=== PATIENT | female | born 1955 | race Caucasian/White ===

== ENCOUNTER 2023-03-17 12:05 | Outpatient (OUT) | payer SELFPAY ==
[2023-03-17 12:21] LABS: Estimated GFR (African America >60 (>=60); Estimated GFR (Non-African Ame >60 (>=60)
== END 2023-03-17 12:06 | disposition home or self-care (01) ==
LOC: LAB 04-08 14:58
PROVIDERS: PCP Family Medicine; Visit Provider Physician Assistant
DX: M54.50 Low back pain, unspecified (principal)
CPT/HCPCS: 36415; 82565

== ENCOUNTER 2023-03-18 15:54 | Emergency (ER) | payer OTHER, SELFPAY ==
[2023-03-18 16:08] VITALS: BP 149/89; PULSE 71; RESP 18; TEMP 36.9; O2SAT 97
--- NOTE | 2023-03-18 16:13 | CT_ITS ---
[address] [address] Patient Name: ZAYNAB LUTZ MRN: [id number] date: 1955 Sex: F Assigned Patient Location: ER Current Patient Location: Accession/Order Number: [id number] Exam Date: 03/18/2023 17:05 Report Date: 03/18/2023 18:03 At the request of: EFREN CRUZ Procedure: CT lumbar spine wo/w con CT LUMBAR SPINE WITHOUT CONTRAST, 03/18/2023 5:05 PM EDT INDICATION: pain with numbess and tingling COMPARISON: None. TECHNIQUE: Thin-section axial CT images of the entire lumbar spine were acquired withoutcontrast. Supplemental 2D reformatted images were generated and reviewed as needed. Dose reduction techniques were achieved by using automated exposure control and/or adjustment of mA and/or kV according to patient size and/or use of iterative reconstruction technique. FINDINGS: PARASPINAL: Normal with no visible mass. BONES: No fracture, pars defect, or osseous lesion. OTHER: None. DISC LEVELS: T12-L1: Early degenerative disc disease is present. The central canal and neural foramina are satisfactorily maintained. Early facet arthropathy bilaterally. L1-L2: Early degenerative disc disease is present. The central canal and neural foramina are satisfactorily maintained. Early facet arthropathy bilaterally. L2-L3: Early degenerative disc disease is present. The central canal and neural foramina are satisfactorily maintained. Facet arthropathy is noted bilaterally. L3-L4: Moderate degenerative disc disease is present. Circumferential bulging of the L3-L4 disc combines with facet arthropathy and ligamentum flavum thickening to result in moderate central canal stenosis. Associated bilateral foraminal stenosis. L4-L5: Moderate degenerative disc disease is present. Circumferential bulging of the L4-L5 disc combines with facet arthropathy to result in mild central canal stenosis. Associated bilateral foraminal stenosis. L5-S1: Moderate degenerative disc disease is present. The central canal is satisfactorily maintained. Mild foraminal stenosis bilaterally. Facet arthropathy is noted bilaterally. IMPRESSION: Moderate central canal stenosis at the L3-L4 level as detailed above. Mild central canal stenosis at the L4-L5 level as detailed above. Moderate L5-S1 degenerative disc disease. Early T12-L1, L1-L2, and L2-L3 degenerative disc disease.. Electronically authenticated by: Gerardo MURILLO Date: 03/18/2023 18:03
[2023-03-18 17:19] LABS: Basophils Absolute Auto 0.1 10^3/uL (0.0-0.1); Basophils Percent Auto 0.9 % (0.2-2.0); Eosinophils Absolute Auto 0.1 10^3/uL (0.0-0.7); Eosinophils Percent Auto 1.5 % (0.9-7.0); Hematocrit 43.6 % (36.0-48.0); Hemoglobin 14.4 g/dL (12.0-16.0); Immature Granulocytes Abs Auto 0.02 10^3/uL (0.00-0.03); Immature Granulocytes Pct Auto 0.4 % (0.0-0.5); Lymphocytes Percent Auto 18.1 % (20.5-60.0); Mean Corpuscular Hemoglobin 29.5 pg (26.7-34.0); Mean Corpuscular Volume 89.3 fL (81.0-99.0); Mean Platelet Volume 11.5 fL (9.5-13.5); Monocytes Absolute Auto 0.7 10^3/uL (0.3-0.8); Monocytes Percent Auto 12.4 % (1.7-12.0); Neutrophils Absolute Auto 3.6 10^3/uL (1.4-6.5); Neutrophils Percent Auto 66.7 % (43.0-75.0); Platelet Count 250 10^3/uL (150-450); Red Blood Count 4.88 10^6/uL (4.20-5.40); White Blood Count 5.4 10^3/uL (4.0-11.0)
[2023-03-18 17:29] LABS: Anion Gap 10.8; BUN Creatinine Ratio 19.8; Calcium 9.7 mg/dL (8.5-10.1); Carbon Dioxide 28.8 mmol/L (21.0-32.0); Chloride 103 mmol/L (98-107); Estimated GFR (African America >60 (>=60); Estimated GFR (Non-African Ame >60 (>=60); Glucose 97 mg/dL (74-106); Potassium 3.6 mmol/L (3.5-5.1); Sodium 139 mmol/L (136-145)
[2023-03-18] MEDS: HYDROCODONE/ACETAMINOPHEN 5-325 MG TABLET 1 TAB PO (17:37)
[2023-03-18] MEDS: KETOROLAC TROMETHAMINE 30 MG/ML VIAL IVP (17:37)
--- NOTE | 2023-03-18 18:32 | ED_ITS ---
HPI - General Adult General Chief complaint: Abdominal Pain Stated complaint: ADBOMINAL PAIN Time Seen by Provider: 03/18/23 16:12 Source: patient and family Source information: Back pain Mode of arrival: walk-in Limitations: no limitations History of Present Illness HPI narrative: 67-year-old female presents here with a chief complaint of a one-month history of back pain. Denies any known injury or trauma. States it been weeding in her yard the day prior to the pain starting. She had been seen here and diagnosed with back pain in the emergency room and had a CT scan to rule out stone. She was then referred to her tail ripper. Patient was being seen by her tail ripper today and continued to have increased pain and states had increased numbness and tingling of her back and came to the emergency room for further evaluation. Patient is very tearful. She states she cannot take the pain any longer. She denies any incontinence of urine or bowel or bladder dysfunctioning Related Data Previous Rx's Medication Instructions Recorded prednisone 20 mg tablet 20 mg PO BID 5 days #10 tabs 03/18/23 Allergies Allergy/AdvReac Type Severity Reaction Status Date / Time clindamycin Allergy Intermediate Verified 03/18/23 16:12 doxycycline Allergy Intermediate Verified 03/18/23 16:12 Review of Systems ROS Narrative All Systems are negative except as noted/marked.All systems reviewed and otherwise negative Exam Narrative Exam Narrative: P Nurses note and vital signs reviewed and patient is not hypoxic. General: The patient appears well and in no apparent distress. Patient is resting comfortably on cart. Skin: Warm, dry, no pallor noted. There is no rash noted. Head: Normocephalic, atraumatic Eye: Normal conjunctiva, no drainage, EOMI. PERRL Ears, Nose, Mouth, and Throat: oral mucosa is moist. Nares patent. Mouth without vesicles. Ear canals patent. Tm's without Erythema Cardiovascular: Regular Rate and Rhythm Respiratory: Patient is in no distress, no accessory muscle use, lungs are clear to auscultation, no wheezing, rales or rhonchi Back: non-tender, no CVA tenderness bilaterally to percussion. GI: Normal bowel sounds, no tenderness to palpation, no masses appreciated. No rebound, guarding, or rigidity noted. Musculoskeletal: L-spine tenderness around L4-L5, no lower extremity weakness, normal rectal tone The patient has no evidence of calf tenderness, no pitting edema, symmetrical pulses noted bilaterally Neurological: A&O x4, normal speech Psychiatric: Cooperative Constitutional Vital Signs - 24 hr 03/18/23 16:08 Temperature 98.4 F Pulse Rate [Monitor] 71 Respiratory Rate 18 Blood Pressure [Left Arm] 149/89 H Pulse Oximetry 97 Oxygen Delivery Method Room Air Course Course Hospital Course: She has been seen here in the emergency room for back pain. She's also had groin pain seem evaluated today by her tail ripper. Patient's exam is tail ripper was benign. CT scan today of the lumbar spine shows narrowing of L34 and L4-L5. She'll be discharged home follow-up with Dr. Argueta. Be given a prescription here for steroids for back pain. Told continue with ice therapy. Vital Signs Vital signs: Vital Signs Temperature 98.4 F 03/18/23 16:08 Pulse Rate 71 03/18/23 16:08 Respiratory Rate 18 03/18/23 16:08 Blood Pressure 149/89 H 03/18/23 16:08 Pulse Oximetry 97 03/18/23 16:08 Oxygen Delivery Method Room Air 03/18/23 16:08 Temperature 98.4 F 03/18/23 16:08 Pulse Rate 71 03/18/23 16:08 Respiratory Rate 18 03/18/23 16:08 Blood Pressure 149/89 H 03/18/23 16:08 Pulse Oximetry 97 03/18/23 16:08 Oxygen Delivery Method Room Air 03/18/23 16:08 Medical Decision Making MDM Narrative Medical decision making narrative: She presented here to the emergency room after her gynecology appointment today for continued low back pain that she's had for a month. Continuing to complain of burning sensation down the right buttock into the posterior aspect of her thigh is also into her groin. exam is within normal limits. CT scan today shows moderate narrowing of her central canal at L3-L4 L4-L5. Degenerative disc disease L5-S1. I will refer her to Dr. Argueta. She will follow-up with him. She also be given a prescription for steroids and pain medicine. Differential Diagnosis Differential Diagnosis: Sciatica, back pain, radiculopathy Lab Data Labs: Lab Results 03/18/23 03/18/23 Range/Units 16:46 18:16 WBC 5.4 (4.0-11.0) 10^3/uL RBC 4.88 (4.20-5.40) 10^6/uL Hgb 14.4 (12.0-16.0) g/dL Hct 43.6 (36.0-48.0) % MCV 89.3 (81.0-99.0) fL MCH 29.5 (26.7-34.0) pg MCHC 33.0 (29.9-35.2) g/dL RDW 14.0 (11.0-15.0) % Plt Count 250 (150-450) 10^3/uL MPV 11.5 (9.5-13.5) fL Neut % (Auto) 66.7 (43.0-75.0) % Lymph % (Auto) 18.1 L (20.5-60.0) % [place] % (Auto) 12.4 H (1.7-12.0) % Eos % (Auto) 1.5 (0.9-7.0) % Baso % (Auto) 0.9 (0.2-2.0) % Neut # (Auto) 3.6 (1.4-6.5) 10^3/uL Lymph # (Auto) 1.0 L (1.2-3.8) 10^3/uL [place] # (Auto) 0.7 (0.3-0.8) 10^3/uL Eos # (Auto) 0.1 (0.0-0.7) 10^3/uL Baso # (Auto) 0.1 (0.0-0.1) 10^3/uL Abs Immat Gran (auto) 0.02 (0.00-0.03) 10^3/uL Imm/Tot Granulo (auto) 0.4 (0.0-0.5) % Sodium 139 (136-145) mmol/L Potassium 3.6 (3.5-5.1) mmol/L Chloride 103 (98-107) mmol/L Carbon Dioxide 28.8 (21.0-32.0) mmol/L Anion Gap 10.8 BUN 17.0 (7.0-18.0) mg/dL Creatinine 0.86 (0.55-1.02) mg/dL Est GFR ( Amer) >60 (>=60) Est GFR (Non-Af Amer) >60 (>=60) BUN/Creatinine Ratio 19.8 Glucose 97 (74-106) mg/dL Calcium 9.7 (8.5-10.1) mg/dL Urine Color Lt. yellow (YELLOW) Urine Clarity Clear (CLEAR) Urine pH 6.5 (5.0-9.0) Ur Specific [place] <=1.005 A (1.005-1.025) Urine Protein Negative (NEG/TRACE) mg/dL Urine Glucose (UA) Negative (NEGATIVE) mg/dL Urine Ketones Trace A (NEGATIVE) mg/dL Urine Occult Blood Trace-i (NEGATIVE) Urine Nitrite Negative (NEGATIVE) Urine Bilirubin Negative (NEGATIVE) Urine Urobilinogen 0.2 (0.2-1.0) EU/dL Ur Leukocyte Esterase Negative (NEGATIVE) Discharge Plan Discharge Chief Complaint: Abdominal Pain Clinical Impression: Acute low back pain with sciatica Patient Disposition: Home, Self-Care Time of Disposition Decision: 18:38 Condition: Good Prescriptions / Home Meds: New prednisone 20 mg tablet 20 mg PO BID 5 Days Qty: 10 0RF Instructions: Sciatica (ED), Acute Low Back Pain (ED), Lumbar Radiculopathy (ED) Stand Alone Forms: Portal Instructions Referrals: AMMON LUCAS [Primary Care Provider] - 1 week Follow Up Appointments: dr Argueta
[2023-03-18 18:36] LABS: Bilirubin Urine NEGATIVE (NEGATIVE); Blood Urine TRACE-I (NEGATIVE); Clarity Urine CLEAR (CLEAR); Color Urine LT. YELLOW (YELLOW); Glucose Urine UA NEGATIVE (NEGATIVE); Ketones Urine TRACE mg/dL (NEGATIVE); Leukocyte Esterase Urine NEGATIVE (NEGATIVE); Nitrite Urine NEGATIVE (NEGATIVE); Protein Urine NEGATIVE (NEG/TRACE); Specific Gravity Urine <=1.005 (1.005-1.025); Urobilinogen Urine 0.2 EU/dL (0.2-1.0); pH Urine 6.5 (5.0-9.0)
[2023-03-18 18:37] LABS: Urine Microscopic Indicated YES
[2023-03-18] MEDS: DEXAMETHASONE SODIUM PHOSPHATE 10 MG/ML VIAL IV (18:41)
[2023-03-18 18:47] LABS: WBC Urine NONE SEEN #/HPF (NONE SEEN)
[2023-03-18 18:48] LABS: Bacteria Urine TRACE #/HPF (NONE SEEN); Cast Seen? NONE SEEN #/LPF (NONE SEEN); Crystals Seen? None Seen #/HPF (None Seen); Mucus Urine NONE SEEN (NONE SEEN); RBC Urine 0-2 #/HPF (0-2); Squamous Epithelial Cell Urine RARE #/LPF (NONE/RARE); Urine Culture Indicated NO
== END 2023-03-18 18:50 | disposition home or self-care (01) ==
PROVIDERS: Physician Assistant; Emergency Provider Emergency Medicine Emergency Medical Services; PCP Family Medicine
DX: M54.40 Lumbago with sciatica, unspecified side (principal); M51.37 Other intervertebral disc degeneration, lumbosacral region; Z12.4 Encounter for screening for malignant neoplasm of cervix
CPT/HCPCS: 36415; 72133; 80048; 81003; 81015; 85025; 87624; 96374; 96375; 99284; G0145; J1100; Q9967

== ENCOUNTER 2023-03-18 19:40 | Outpatient (REF) | payer OTHER, SELFPAY ==
[2023-03-21 12:09] LABS: Age Gdln ACOG Testing Note (.); HPV Aptima Negative (Negative); IGP, Aptima HPV, rfx 16/18,45 Note (.)
== END 2023-03-18 19:41 ==
LOC: LAB 19:40
PROVIDERS: PCP Family Medicine; Visit Provider Physician Assistant
DX: Z12.4 Encounter for screening for malignant neoplasm of cervix (principal)
CPT/HCPCS: 87624; G0145

== ENCOUNTER 2023-09-29 07:52 | Outpatient (OUT) | payer MEDICARE, SELFPAY ==
--- NOTE | 2023-09-29 08:00 | MM_ITS ---
Patient Name: ZAYNAB LUTZ MR#: [id number] : 1955 Exam Date: 09/29/2023 Ordering Doctor: DELIA Topete . RADIOLOGY REPORT PROCEDURE: MM TOMOSYNTHESIS SCREENING BI COMPARISON: MG MAMM SCREEN CINTHYA W CAD, 08/10/2018. MG MAMM SCREEN 3D CINTHYA CAD, 08/13/2022. INDICATIONS: screening for malignant neoplasm of breast Calculator Name NCI Breast Cancer Risk Assessment Tool 5 Year Breast Cancer Risk 1.50% Lifetime Breast Cancer Risk 5.40% Personal Breast Cancer No Personal Ovarian Cancer No Treatments None Family Cancers None LOCATION: [facility] BREAST COMPOSITION: Scattered areas fibroglandular density. FINDINGS: DIAGNOSTIC CATEGORY 1--NEGATIVE. NO CHANGE FROM COMPARISON ASSESSMENT. RIGHT BREAST: No significant suspicious finding. [place] marker indicates a scab from the patient's recent mole removal. No mammographic abnormality LEFT BREAST: No significant suspicious finding. RECOMMENDATIONS: ROUTINE MAMMOGRAM AND CLINICAL EVALUATION IN 12 MONTHS. PLEASE NOTE: A NORMAL MAMMOGRAM DOES NOT EXCLUDE THE POSSIBILITY OF BREAST CANCER. A CLINICALLY SUSPICIOUS PALPABLE LUMP SHOULD BE BIOPSIED. Dictated by: Boogie Mina MD on 09/29/2023 at 14:35 Approved by: Boogie Mina MD on 09/29/2023 at 14:39
--- NOTE | 2023-09-29 08:02 | XR_ITS ---
[address] [address] Patient Name: ZAYNAB LUTZ MRN: [id number] date: 1955 Sex: F Assigned Patient Location: [facility] Current Patient Location: [facility] Accession/Order Number: [id number] Exam Date: 09/29/2023 08:16 Report Date: 09/29/2023 08:45 At the request of: EFREN CRUZ Procedure: XR DEXA axial skeleton EXAMINATION: XR DEXA axial skeleton, 09/29/2023 8:16 AM EST HISTORY: screening for osteoporosis COMPARISON: 2008 TECHNIQUE: Dual-energy X-ray absorptiometry (DEXA) bone density study performed for the axial skeleton. HISTORY: screening for osteoporosis FINDINGS: Bone mineral density AP spine L2-L4 measures 1.010 g/sq cm. T score -1.6. WHO classification: Osteopenia. Lowest bone mineral density is in the right femoral trochanter measuring 0.497 g/sq cm. T score -3.1. WHO classification: Osteoporosis XR/XR DEXA axial skeleton IMPRESSION: Osteoporosis. High fracture risk Electronically authenticated by: JAMISON LEBLANC Date: 09/29/2023 08:45
== END 2023-09-29 07:53 | disposition home or self-care (01) ==
LOC: MAMMO 07:52
PROVIDERS: PCP Family Medicine; Visit Provider Physician Assistant
DX: Z01.419 Encounter for gynecological examination (general) (routine) without abnormal findings (principal); Z12.31 Encounter for screening mammogram for malignant neoplasm of breast; M81.0 Age-related osteoporosis without current pathological fracture
CPT/HCPCS: 77063; 77067; 77080

== ENCOUNTER 2024-09-02 12:15 | Emergency (ER) | payer MEDICARE, SELFPAY ==
[2024-09-02 12:19] VITALS: BP 138/92; PULSE 89; TEMP 36.6; O2SAT 97; BMI 21.0
--- OUTSIDE RECORDS SUMMARY | 2024-09-02 12:28 | XMS_ITS | CCD ---
Author Organization [facility] Care Team Providers Care Jail Keeper Name Role Phone Joel Monroe Unavailable Unavailable Joel Monroe Unavailable Unavailable Joel Monroe PSigifredo Unavailable Unavailable AMMON LUCAS~[id number] UNKNOWN Unavailable Unavailable Joel Monroe PSigifredo Unavailable Unavailable Joel Monroe PSigifredo Unavailable Unavailable Joel Monroe PSigifredo Unavailable Unavailable AMMON LUCAS~[id number] UNKNOWN Unavailable Unavailable Manuela Aly Unavailable Ayaka Joyner Unavailable Ammon Lucas Unavailable NAVEEN KAHN Admitting Unavailable NAVEEN KAHN Attending Unavailable YRIS ., DELIA TOLENTINO Consulting Unavailmindy LUCAS, DR AMMON Peres Primary Care Unavailable HAY ., DR KEITA Admitting Unavailable HAY ., DR KEITA Attending Unavailable Derek Mccray Consulting Unavailable LUCAS, DR AMMON Peres Primary Care Unavailable HAY ., DR KEITA Consulting Unavailable EDINSON, ELIE Consulting Unavailable HAY ., DR KEITA Admitting Unavailable HAY ., DR KEITA Consulting Unavailable HAY ., DR KEITA Attending Unavailable LANCE, DR AMMON Peres Primary Care Unavailable REQUEST, DR GARNETT LISTED Admitting Unavaila ble REQUEST, DR GARNETT LISTED Consulting Unavaila ble REQUEST, DR GARNETT LISTED Attending Unavaila ble LANCE, DR AMMON ePres Primary Care Unavailable Boogie Mina Consulting Unavailable LANCE, DR AMMON Peres Primary Care Unavailable LANCE, DR AMMON Peres Attending Unavailable LANCE, DR AMMON Peres Admitting Unavailable LANCE, DR AMMON Peres Consulting Unavailable Unavailable Primary Care Provider UnavailAmmon Guzman MD Primary Care Provider Ammon Lucas MD Unavailable Ammon Lucas MD Primary Care Provider [phone] Ammon Lucas MD Primary Care Provider [phone] LUCAS, AMMON E Referring Unavailable LUCAS, AMMON E Primary Care Unavailable LUCAS, AMMON E Referring Unavailable LUCAS, AMMON E Primary Care Unavailable BRIANA, TESSA K Referring Unavailable LUCAS, AMMON E Primary Care Unavailable BRIANA, TESSA K Referring Unavailable LUCAS, AMMON E Primary Care Unavailable BRIANA, TESSA K Attending Unavailable LUCAS, AMMON Referring Unavailable RBIANA, TESSA K Attending Unavailable LUCAS, AMMON Referring Unavailable BRIANA, TESSA K Attending Unavailable SARAH GODWIN Attending Unavailable LUCAS, AMMON E Referring Unavailable LUCAS, AMMON E Primary Care Unavailable SARAH GODWIN Attending Unavailable LUCAS, AMMON E Referring Unavailable LUCAS, AMMON E Primary Care Unavailable SARAH GODWIN Referring Unavailable LUCAS, AMMON E Primary Care Unavailable SARAH GODWIN Admitting Unavailable SARAH GODWIN Attending Unavailable LUCAS, AMMON E Primary Care Unavailable YEN MEADE Attending Unavailable LUCAS, AMMON E Primary Care Unavailable SARAH GODWIN Attending Unavailable LUCAS, AMMON E Referring Unavailable LUCAS, AMMON E Primary Care Unavailable ALEX RAMIREZ Attending Unavailable LUCAS, AMMON E Referring Unavailable LUCAS, AMMON E Primary Care Unavailable Unavailable Primary Care Provider Unavailabl e STRASBURG, AUGUSTINA M Referring Unavailable STRASBURG, AUGUSTINA M Referring Unavailable STRASBURG, AUGUSTINA M Referring Unavailable STRASBURG, AUGUSTINA M Referring Unavailable STRASBURG, AUGUSTINA M Referring Unavailable STRASBURG, AUGUSTINA M Referring Unavailable STRASBURG, AUGUSTINA M Referring Unavailable STRASBURG, AUGUSTINA M Referring Unavailable STRASBURG, AUGUSTINA M Referring Unavailable ELTEMAMYCHIP Attending Unavailable LANCE, AMMON E Primary Care Unavailable ELTEMAMYCHIP Referring Unavailable LUCAS, AMMON E Primary Care Unavailable RINA FOX Attending Unavailable SELF Referring Unavailable LUCAS, AMMON E Primary Care Unavailable RADU DELEON Attending Unavailable RINA FOX Referring Unavailable LUCAS, AMMON E Primary Care Unavailable LUCAS, AMMON E Primary Care Unavailable LUCAS, AMMON E Primary Care Unavailable LUCAS, AMMON E Primary Care Unavailable ELTEMAMY, CHIP Attending Unavailable LUCAS, AMMON E Primary Care Unavailable LUCAS, AMMON E Primary Care Unavailable ELTEMAMY, CHIP Attending Unavailable ELTEMAMY MOHFAM Referring Unavailable LUCAS, AMMON E Primary Care Unavailable STRASBURG, AUGUSTINA Attending Unavailable LUCAS, AMMNO E Primary Care Unavailable PAGE BUCHANAN Attending Unavailable CHIP CARR Attending Unavailable AMMON LUCAS Primary Care Unavailable AUGUSTINA VARGAS Attending Unavailable AUGUSTINA VARGAS Referring Unavailable AMMON LUCAS Primary Care Unavailable CHIP CARR Admitting Unavailable CHIP CARR Attending Unavailable AMMON LUCAS Primary Care Unavailable Allergies Allergy Classification Reported Allergen(s) Allergy Type Date of Onset Reaction(s) Facility (9 sources) amoxicillin; Translations: [amoxicillin] Drug Allergy 02-13-20 17 Unknown [facility] Repository (20 sources) Bee/Wasp/Ant venom; Translations: [Bee Stings] Propensity to adverse reactions (disorder) Unknown [facility] Repository (20 sources) clindamycin; Translations: [clindamycin] Drug Allergy 09-24-20 15 Hives, Shortness Of Breath, Rash [facility] Repository (20 sources) doxycycline; Translations: [doxycycline] Drug Allergy 12-18-19 24 Rash [facility] Repository (8 sources) Penicillins; Translations: [penicillins] Propensity to adverse reactions (disorder) 02-13-20 17 Hives, Rash, Intolerance [facility] Repository (5 sources) Penicillin; Translations: [penicillin] Drug Allergy 06-18-20 18 Unknown [facility] Repository (11 sources) Bee pollen Drug Allergy 06-17-20 18 Comment:Bee Stings [facility] [employer] Other (11 sources) Codeine Drug Allergy 08-04-20 Comment:upset stomach [employer] Other (20 sources) Codeine; Translations: [CODEINE] Drug Allergy 06-17-20 18 GI Disturbance, GI Upset [email or web address] [facility] (11 sources) Pseudoephedrine Drug Allergy 08-04-20 18 Unknown [employer] Other (6 sources) patient allergy list reviewed by nurse or physicia Propensity to adverse reactions 08-10-20 Comment:Done [employer] Other (3 sources) Allergies Reconciled Propensity to adverse reactions Unknown [employer] Other (1 source) Substance with penicillin structure and antibacterial mechanism of action (substance) Drug allergy 08-04-20 Unknown [employer] Other (7 sources) Fluconazole Drug Allergy dizziness [employer] Other (6 sources) Doxycycline; Translations: [DOXYCYCLINE HYCLATE] Drug Allergy 03-03-20 Rash [employer] (20 sources) Bee Venom Protein (Honey Bee); Translations: [BEE VENOM PROTEIN (HONEY BEE)] Propensity to adverse reactions to drug 12-05-19 Rash [employer] (2 sources) VENOM-HONEY BEE; Translations: [VENOM-HONEY BEE] Propensity to adverse reactions to drug (disorder) 12-05-19 [facility] Other [place] Rep[facility] Medications Current Medications Medication Drug Class(es) Dates Sig (Normalized) Sig (Original) acetaminophen 325 mg / HYDROcodone bitartrate 5 mg oral tablet (19 sources) Opioid Agonist Start: 08-31-2020 take 1 tablet by mouth every six hours as needed HYDROcodone-acetam inophen (NORCO) 5-325 mg per tablet Take 1 tablet by mouth every 6 (six) hours as needed. 02/25/2023 Active Comment on above: Take 1 tablet by brad th every 6 hours as needed for pain. atorvastatin 20 mg oral tablet (20 sources) HMG-CoA Reductase Inhibitor Start: 06-12-2023 End: 06-06-2024 take 1 tablet by mouth once daily in the evening atorvastatin (LIPITOR) 20 mg tablet Take 20 mg by mouth every evening. 10/24/2023 Active Lipitor Active Comment on above: Take 20 mg by mouth every morning. Take 20 mg by mouth every evening. azithromycin 250 mg oral tablet (13 sources) Macrolide Antimicrobial Start : 11-22 Azithromycin 250 MG 2 tablet on the first day, then 1 tablet daily for 4 days Orally Once a day for 5 day(s) May, Active onabotulinumtoxina 100 unt injection (20 sources) Acetylcholine Release Inhibitor Start : 07-06 inject 100 [IU] by intramuscular injection every three months 100 Units, INTRAMUSCULAR, EVERY 3 MONTHS, First dose on Fri07/06/24 at 1130, Until Discontinued, This record documents the total dose provided to patient. See progress note for specific locations and amounts administered. REFRIGERATE - Pharmaceutical Waste: Lab Pack - Start: 05-28-2024 onabotulinum t oxin type A 100 Units injection (BOTOX) Calcium Carbonate / vitamin D3 (20 sources) take 600 mg by mouth twice daily calcium carbonate/vitamin D3 (CALTRATE 600 + D ORAL) Take 600 mg by mouth two times a day. Active take 600 mg by mouth twice daily calcium carbonate/vitamin D3 (CALTRATE 600 + D ORAL) Take 600 mg by mouth two times a day. 0 Active take 600 mg by mouth once daily calcium carbonate/vitamin D3 (CALTRATE 600 + D ORAL) Take 600 mg by mouth once daily. 0 Active Comment on above: Take 600 mg by mouth once daily. CALCIUM CARBONATE-VITAMIN D3 ORAL (3 sources) take 600 mg by mouth in the morning CALCIUM CARBONATE-VITAMIN D3 ORAL Take 600 mg by mouth in the morning. Active take 600 mg by mouth in the morn ing CALCIUM CARBONATE-VITAMIN D3 ORAL Take 600 mg by mouth in the morning. 0 Active cyclobenzaprine hydrochloride 5 mg oral tablet (12 sources) Muscle Relaxant Start: 05-27-2024 End: 08-17-2024 cyclobenzaprine (FLEXERIL) 5 mg tablet Indications: High-tone pelvic floor dysfunction 1 tablet at bedtime as needed. Use vaginally 90 tablet 4 08/17/2024 Active take 2 tablets by mo ut three times daily as needed for muscle spasms cyclobenzaprine (FLEXERIL) 5 mg tablet T hedy 2 tablets (10 mg total) by mouth 3 (three) times a day as needed for muscle spasms. Active estradiol 0.1 mg/ml vaginal cream (5 sources) Estrogen Start: 07-06-2024 estradiol (EST RACE) 0.01 % (0.1 mg/gram) vaginal cream Indications: Vaginal dryness Use 0.5 g vaginally daily at bedtime. Apply finger tipped size to vulva, urethra nightly 42.5 g 2 07/06/2024 Active fluticasone propionate 0.05 mg/actuat metered dose nasal spray (20 sources) Corticosteroid fluticasone (STEVAN NASE) 50 mcg/actuation nasal spray Use 1 Alsen in the nose as needed for cold/allergy symptoms. Take in allergy season Active fluticasone (STEVAN NASE) 50 mcg/actuation nasal spray Use 1 Alsen in the nose once daily. 0 Active FLONASE Active Flonase Active Flonase Not-Taki ng Comment on above: Use 1 Alsen in the n ose once daily. Use 1 Alsen in the n ose as needed for cold/allergy symptoms. Take in allergy season gabapentin 300 mg oral capsule (20 sources) Anti-epileptic Agent Start: 0 gabapentin (NEURONTIN) 300 mg capsule Take 300 mg by mouth as needed for pain. 08/25/2020 Active Comment on above: Take 300 mg by mouth as needed for pain. ibuprofen 200 mg oral tablet (20 sources) Nonsteroidal Anti-inflammatory Drug take 3-4 tablets by mouth twice daily as needed ibuprofen (MOTRIN) 200 mg tablet Take 400 mg by mouth two times a day. 400-800 mg 3-4 PRN Active take 2 tablets by mo uth every six hours as needed for pain ibuprofen (ADVIL,MOTRIN) 200 mg tablet T hedy 2 tablets (400 mg total) by mouth every 6 (six) hours as needed for pain. Active take 2 tablets by mouth twice da aby ibuprofen (MOTRIN) 200 mg tablet Take 400 mg by mouth two times a day. 0 Active Comment on above: Take 400 mg by mouth every 6 hours as needed for pain. Take 400 mg by mouth two times a day. 12 hr loratadine 5 mg / pseudoephedrine sulfate 120 mg extended release oral tablet (3 sources) alpha-Adrenergic Agonist loratadine-pseudoep hedrine (LORATADINE-D) 5-120 mg tablet extended release 12 hr Take 1 tablet by mouth every 12 (twelve) hours. 1/2 tablet- keeps right ear open Active montelukast 10 mg oral tablet (20 sources) Leukotriene Receptor Antagonist Start: 06-18-20 18 take 1 tablet by mouth once daily montelukast (SINGULAIR) 10 mg tablet Take 10 mg by mouth once daily. 06/18/2018 Active Singulair Active Singulair NotKaren carroll Comment on above: Take 10 mg by mouth once daily. nystatin 281131 unt/ml oral suspension (11 sources) Polyene Antifungal Start: 06-05-2023 take 4 mL by mouth four times daily Nystatin 181092 UNIT/ML 4 mL Mouth/Throat Four times a day for 14 day(s) May, Active Nystatin [id number] UNIT/ML swish and swallow 5 milliliters four times a day for 10 days Mouth/Throat for 10 Days Not-Taking predniSONE 20 mg oral tablet (3 sources) Start: 05-29-2023 take 1 tablet by mouth every twelve hours prednisone 20 MG 1 tablet Orally BID for 5 May, Active valACYclovir 1000 mg oral tablet (2 sources) Herpesvirus Nucleoside Analog DNA Polymerase Inhibitor, Herpes Simplex Virus Nucleoside Analog DNA Polymerase Inhibitor, Herpes Zoster Virus Nucleoside Analog DNA Polymerase Inhibitor Start: 09-14-2021 take 1 tablet by mouth every eight hours valACYclovir HCl 1 GM 1 tablet Orally tid for 7 days Sep, Active Start: 07-29-2021 take 1 tablet by brad th every eight hours Valtrex 1 GM 1 tablet Orally tid for 7 days Jul, Active Completed/Discontinued Medications Medication Drug Class(es) Dates Sig (Normalized) Sig (Original) Bupivacaine (2 sources) Amide Local Anesthetic Start: 07-06-2024 End: 07-06-2024 BUPivacaine HCl 25 mg injection (SENSORCAINE) Start: 07-06-2024 End: 07-06-2024 inject 1 dose by intramuscular injection once 25 mg, INTRAMUSCULAR, ONCE, 1 dose, On Fri07/06/24 at 1130 doxycycline monohydrate 100 mg oral capsule (11 sources) Tetracycline-class Drug Start: 07-28-2022 take 1 capsule by mouth every twelve hours Doxycycline Monohydrate 100 MG 1 capsule Orally every 12 hrs for 10 days Jul, Not-Taking fluocinonide 0.5 mg/ml topical cream (7 sources) Corticosteroid Fluocinonide 0.0 5 % External for 14 Days Not-Taking lidocaine hydrochloride 0.02 mg/mg topical gel (3 sources) Antiarrhythmic, Amide Local Anesthetic Start: 04-07-2024 End: 04-07-2024 lidocaine urojet 2 % 11 mL topical gel (GLYDO) Start: 09-14-2021 Lidocaine Visc ous HCl 2 % 1 application topically every 2 hours prn Apply a small amount to the painful rash on the face every 2 hours as needed Sep, Active Loratadine (10 sources) Claritin Not-Holger ing Claritin Active tamsulosin hydrochloride 0.4 mg oral capsule (14 sources) alpha-Adrenergic Amber Start: 03-05-2024 End: 06-06-2024 take 1 capsule by mouth once daily at bedtime tamsulosin (FLOMAX) 0.4 mg Take 1 capsule by mouth daily at bedtime. 42 capsule 03/05/2024 06/06/2024 Discontinued take 1 capsule by mo ut every twenty-four hours Flomax 0.4 MG 1 capsule Orally Once a day for 15 days Active Problems Active Problems Problem Classification Problem Date Documented Da te Episodic/Chronic Abdominal pain (10 sources) Pelvic and perineal pain; Translations: [Pain in pelvis] Onset: 02-22-2023 Episodic Aortic; peripheral; and visceral artery aneurysms (20 sources) Aneurysm of infrarenal abdominal aorta ; Translations: [Infrarenal abdominal 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] Onset: 08-20-2023 08-20-2023 Chronic Calculus of urinary tract (15 sources) Kidney stone; Translations: [Calculus of kidney] Episodic Chronic kidney disease (1 source) Kidney transplant status; Translations: [Kidney transplant status] Onset: 04-26-2024 Chronic Diseases of mouth; excluding dental (7 sources) Dry mouth, unspecified; Translations: [Chronic sialadenitis] Onset: 10-07-2023 Episodic Disorders of lipid metabolism (20 sources) Hyperlipidemia; Translations: [Other hyperlipidemia] Onset: 02-19-2024 02-19-2024 Chronic Genitourinary symptoms and ill-defined conditions (1 source) Dysuria Episodic Headache; including migraine (3 sources) Tension-type headache; Translations: [Tension-type headache, unspecified, not intractable] Onset: 03-17-2023 07-25-2023 Chronic Headache; including migraine (3 sources) Headache; Translations: [Headache, unspecified] Episodic Lymphadenitis (3 sources) Localized enlarged lymph nodes; Translations: [Localized enlarged lymph nodes] Episodic Menopausal disorders (1 source) Atrophic vaginitis; Translations: [Postmenopausal atrophic vaginitis] 07-06-2024 Chronic Mycoses (5 sources) Candidiasis, unspecified; Translations: [Candidal stomatitis] Onset: 11-25-2022 Episodic Nutritional deficiencies (17 sources) Malnutrition (calorie); Translations: [Moderate protein-calorie malnutrition] Onset: 03-03-2024 04-10-2024 Chronic Osteoporosis (3 sources) Osteoporosis; Translations: [Age-related osteoporosis without current pathological fracture] Onset: 03-04-2023 07-25-2023 Chronic Other aftercare (1 source) Encounter for aftercare following kidney transplant; Translations: [Encounter for aftercare following kidney transplant] Onset: 04-07-2024 Chronic Other aftercare (1 source) Other manager intermediate (current) 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; Translations: [OTH SKILLED NURSING CURRENT DRUG THERAPY] Onset: 02-25-2023 Episodic Other circulatory disease (3 sources) Elevated blood-pressure reading without diagnosis of hypertension; Translations: [Elevated blood-pressure reading, without diagnosis of hypertension] Episodic Other connective tissue disease (3 sources) Neuralgia; Translations: [Neuralgia and neuritis, unspecified] Episodic Other connective tissue disease (3 sources) Laxity of ligament; Translations: [Disorder of ligament, unspecified site] Episodic Other connective tissue disease (2 sources) Neuralgia and neuritis, unspecified Episodic Other connective tissue disease (5 sources) Pelvic floor dysfunction; Translations: [Other specified disorders of muscle] 05-27-2024 Episodic Other connective tissue disease (1 source) Muscle pain; Translations: [Myalgia, unspecified site] 07-06-2024 Episodic Other diseases of bladder and urethra (1 source) Urethral caruncle; Translations: [Urethral caruncle] 07-06-2024 Episodic Other diseases of veins and lymphatics (1 source) Varicose veins of other specified sites; Translations: [VARICOSE VEINS OTHER SPEC SITES] Onset: 02-25-2023 Episodic Other ear and sense organ disorders (1 source) Unspecified sensorineural hearing loss; Translations: [Unspecified sensorineural hearing loss] Onset: 11-12-2023 Chronic Other female genital disorders (1 source) Other specified conditions associated with female genital organs and menstrual cycle Episodic Other female genital disorders (1 source) Vaginal dryness; Translations: [Other specified noninflammatory disorders of vagina] 07-06-2024 Episodic Other gastrointestinal disorders (1 source) Other disorders of retroperitoneum; Translations: [Other disorders of retroperitoneum] Onset: 04-26-2024 Episodic Other gastrointestinal disorders (1 source) Acute constipation; Translations: [Constipation, unspecified] 07-06-2024 Episodic Other injuries and conditions due to external causes (1 source) Allergy, unspecified, subsequent encounter Episodic Other screening for suspected conditions (not mental disorders or infectious disease) (2 sources) CT of chest abnormal; Translations: [Abnormal findings on diagnostic imaging of other specified body structures] Chronic Other skin disorders (3 sources) Localized swelling, mass and lump, neck; Translations: [Localized swelling, mass and lump, neck] Episodic Other upper respiratory disease (3 sources) Allergic rhinitis due to pollen; Translations: [Allergic rhinitis due to pollen] Onset: 06-17-2018 Chronic Other upper respiratory disease (3 sources) Chronic rhinitis; Translations: [Chronic rhinitis] Onset: 03-17-2023 07-25-2023 Chronic Other upper respiratory infections (20 sources) Sinusitis; Translations: [Chronic sinusitis, unspecified] Chronic Other upper respiratory infections (3 sources) Acute maxillary sinusitis, unspecified; Translations: [Acute recurrent maxillary sinusitis] Episodic Peripheral and visceral atherosclerosis (3 sources) Peripheral vascular disease; Translations: [Peripheral vascular disease, unspecified] Onset: 03-17-2023 07-25-2023 Chronic Phlebitis; thrombophlebitis and thromboembolism (1 source) 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; unclassified (1 source) Acquired absence of other specified parts of digestive tract; Translations: [ACQ ABSENCE OTH PART DIGESTV TRACT] Onset: 02-25-2023 Episodic Residual codes; unclassified (3 sources) Normal body mass index; Translations: [Body mass index (BMI) 22.0-22.9, adult] Episodic Residual codes; unclassified (1 source) Family history of aneurysm of artery; Translations: [Family history of ischemic heart disease and other diseases of the circulatory system] 12-18-2023 Episodic Residual codes; unclassified (1 source) Pain, unspecified; Translations: [Pain, unspecified] Onset: 02-17-2024 Episodic Screening and history of mental health and substance abuse codes (1 source) Personal history of nicotine dependence; Translations: [PERSONAL HISTORY OF NICOTINE DEPEND] Onset: 02-25-2023 Episodic Skin and subcutaneous tissue infections (3 sources) Cellulitis of neck; Translations: [Cellulitis of neck] Episodic Spondylosis; intervertebral disc disorders; other back problems (3 sources) Degeneration of lumbar intervertebral disc; Translations: [Degeneration of lumbar or lumbosacral intervertebral disc] Onset: 06-17-2018 Chronic Unclassified (1 source) S/P submandibular gland dilation Onset: 02-10-2024 Unclassified (1 source) Post-op Follow-up Onset: 12-02-2023 Unclassified (1 source) 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); Translations: [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)] Onset: 12-18-2023 Past or Other Problems Problem Classification Problem Date Documented Da te Episodic/Chronic Cardiac dysrhythmias (18 sources) ECG: sinus bradycardia; Translations: [Bradycardia, unspecified] Onset: 02-20-2024 02-20-2024 Episodic Conditions associated with dizziness or vertigo (3 sources) Benign paroxysmal positional vertigo; Translations: [Benign paroxysmal positional vertigo] Onset: 06-17-2018 Episodic Mood disorders (3 sources) Mood disorders Onset: 03-29-2020 03-29-2020 Nonspecific chest pain (3 sources) Chest pain; Translations: [Chest pain, unspecified] Onset: 06-12-2023 06-12-2023 Episodic Other and unspecified benign neoplasm (3 sources) Polyp of colon; Translations: [Polyp of colon] Onset: 06-17-2018 Episodic Other bone disease and musculoskeletal deformities (3 sources) Bone density finding; Translations: [Other specified disorders of bone density and structure, unspecified site] Onset: 06-17-2018 Episodic Other connective tissue disease (20 sources) Elongated styloid process syndrome; Translations: [Disorder of ligament, unspecified site] Onset: 03-29-2020 03-29-2020 Episodic Other connective tissue disease (1 source) Disorder of ligament, unspecified site; Translations: [[place]'s syndrome] Onset: 02-19-2024 Episodic Other diseases of veins and lymphatics (3 sources) Venous stenosis; Translations: [Compression of vein] Onset: 03-29-2020 03-29-2020 Episodic Other diseases of veins and lymphatics (20 sources) Renal vascular disorder; Translations: [Compression of vein] Onset: 02-19-2024 12-12-2023 Episodic Other diseases of veins and lymphatics (20 sources) Varices of ovary; 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] Onset: 02-19-2024 02-19-2024 Episodic Other diseases of veins and lymphatics (1 source) Pelvic varices; Translations: [Ovarian varices] Onset: 02-19-2024 Episodic Other diseases of veins and lymphatics (1 source) Compression of vein; Translations: [Nutcracker phenomenon of renal vein] Onset: 02-19-2024 Episodic Other female genital disorders (7 sources) Pelvic congestion syndrome; Translations: [Other specified conditions associated with female genital organs and menstrual cycle] Onset: 06-04-2023 06-04-2023 Episodic Other gastrointestinal disorders (3 sources) Dysphagia; Translations: [Dysphagia, unspecified] Onset: 06-17-2018 Episodic Other gastrointestinal disorders (3 sources) Pharyngeal dysphagia; Translations: [Dysphagia, pharyngeal phase] Onset: 03-17-2023 07-25-2023 Episodic Other lower respiratory disease (1 source) Solitary pulmonary nodule; Translations: [Solitary pulmonary nodule] Onset: 01-16-2024 Episodic Other screening for suspected conditions (not mental disorders or infectious disease) (10 sources) Encounter for screening mammogram for malignant neoplasm of breast; Translations: [Patient encounter status] Onset: 08-13-2022 Episodic Other skin disorders (3 sources) Asteatosis cutis; Translations: [Xerosis cutis] Onset: 06-17-2018 Episodic Residual codes; unclassified (3 sources) Family history of aneurysm of abdominal aorta; Translations: [Family history of ischemic heart disease and other diseases of the circulatory system] Onset: 08-20-2023 08-20-2023 Episodic Residual codes; unclassified (4 sources) Submandibular salivary gland swelling; Translations: [Localized edema] Onset: 10-07-2023 10-07-2023 Episodic Residual codes; unclassified (1 source) Localized edema; Translations: [Localized edema] Onset: 10-07-2023 Episodic Substance-related disorders (20 sources) Narcotic drug user; Translations: [Opioid use, unspecified, uncomplicated] Onset: 02-19-2024 02-19-2024 Episodic Unclassified (1 source) Contact with and (suspected) exposure to covid-19; Translations: [Contact with and (suspected) exposure to covid-19] Unclassified (1 source) Contact with and (suspected) exposure to covid-19 Z20.822 Unclassified (17 sources) Exposure to acute respiratory syndrome coronavirus 2; Translations: [Contact with and (suspected) exposure to covid-19] Unclassified (1 source) Abdominal 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, unspecified part I71.40 Viral infection (2 sources) Zoster without complications; Translations: [Herpes zoster without complication B02.9] Onset: 07-29-2021 Resolved: 09-14-2021 Episodic Results Test Name Value Interpretation Reference Range [facility] ([id number]) 1955 F Date Time Provider Department 08/23/24 AUGUSTINA VARGAS [facility] During your visit today, we recorded the following information about you: Nano Cline 08/23/2024 1:54 PM Signed Received call from pharmacy asking for clarification of directions for: cyclobenzaprine (FLEXERIL) 5 mg tablet States that direction says to use vaginally but prescription is for oral tablet Please advise: E- [facility] [id number] - [place] [address] - [address] - [phone] Morenita Lopez RN 08/23/2024 2:26 PM Signed Called [employer] to clarify that prescription is for Flexeril 5 mg tablets and to use 1 tablet at bedtime vaginally. Morenita Lopez RN Allergies As of Date: 08/23/2024 Noted Allergy Reaction CLINDAMYCIN 06/30/2018 2 - Rash 12 - Shortness of Breath DOXYCYCLINE 12/18/2023 2 - Rash VENOM-HONEY BEE 12/05/2019 2 - Rash CODEINE 06/30/2018 8 - GI Upset Date Reviewed: 07/06/2024 Reviewed by: Austin Morris RN - Fully Assessed Reason for Visit: Medication Problem [65] Prescriptions as of 08/23/2024 - cyclobenzaprine (FLEXERIL) 5 mg tablet 1 tablet at bedtime as needed. Use vaginally - estradiol (ESTRACE) 0.01 % (0.1 mg/gram) vaginal cream Use 0.5 g vaginally daily at bedtime. Apply finger tipped size to vulva, urethra nightly - calcium carbonate/vitamin D3 (CALTRATE 600 + D ORAL) Take 600 mg by mouth two times a day. - atorvastatin (LIPITOR) 20 mg tablet Take 20 mg by mouth every evening. - fluticasone (FLONASE) 50 mcg/actuation nasal spray Use 1 Alsen in the nose as needed for cold/allergy symptoms. Take in allergy season - gabapentin (NEURONTIN) 300 mg capsule Take 300 mg by mouth as needed for pain. - montelukast (SINGULAIR) 10 mg tablet Take 10 mg by mouth once daily. - ibuprofen (MOTRIN) 200 mg tablet Take 400 mg by mouth two times a day. 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/2024 Narcotic drug use [F11.90] 02/19/2024 Sinus bradycardia on ECG [R00.1] 02/20/2024 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 Malnutrition of moderate degree (HCC) [E44.0] 03/03/2024 Encounter Status:Closed by MORENITA LOPEZ on 08/23/24 [facility] Heidi 08-17-2024 MARIBELN Telephone ([facility]) ZAYNAB ZAIDI ([id number]) 1955 F Date Time Provider Department 08/17/24 AUGUSTINA VARGAS [facility] During your visit today, we recorded the following information about you: Augustina Vargas MD 08/17/2024 4:55 PM Signed Please put her on my schedule oct 05, 2024 at 2:30pm for botox, which is approved already Patient aware Augustina Vargas MD 08/18/2024 1:24 PM Signed Done Encounter Diagnosis ICD-10-CM 1. High-tone pelvic floor dysfunction M62.89 CYSTOSCOPY [facility] Martinez Steele 08/19/2024 11:32 AM Signed Done Martinez Chang Allergies As of Date: 08/17/2024 Noted Allergy Reaction CLINDAMYCIN 06/30/2018 2 - Rash 12 - Shortness of Breath DOXYCYCLINE 12/18/2023 2 - Rash VENOM-HONEY BEE 12/05/2019 2 - Rash CODEINE 06/30/2018 8 - GI Upset Date Reviewed: 07/06/2024 Reviewed by: Austin Morris, RN - Fully Assessed Reason for Visit: Appointment [186] Primary Visit Diagnosis:High-tone pelvic floor dysfunction [M62.89] Order(s):CYSTOSCOPY [facility] [[id number]] Order #: [id number] FUTURE Prescriptions as of 08/19/2024 - cyclobenzaprine (FLEXERIL) 5 mg tablet 1 tablet at bedtime as needed. Use vaginally - estradiol (ESTRACE) 0.01 % (0.1 mg/gram) vaginal cream Use 0.5 g vaginally daily at bedtime. Apply finger tipped size to vulva, urethra nightly - calcium carbonate/vitamin D3 (CALTRATE 600 + D ORAL) Take 600 mg by mouth two times a day. - atorvastatin (LIPITOR) 20 mg tablet Take 20 mg by mouth every evening. - fluticasone (FLONASE) 50 mcg/actuation nasal spray Use 1 Alsen in the nose as needed for cold/allergy symptoms. Take in allergy season - gabapentin (NEURONTIN) 300 mg capsule Take 300 mg by mouth as needed for pain. - montelukast (SINGULAIR) 10 mg tablet Take 10 mg by mouth once daily. - ibuprofen (MOTRIN) 200 mg tablet Take 400 mg by mouth two times a day. 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/2024 Narcotic drug use [F11.90] 02/19/2024 Sinus bradycardia on ECG [R00.1] 02/20/2024 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 Malnutrition of moderate degree (HCC) [E44.0] 03/03/2024 Encounter Status:Closed by MARTINEZ STEELE on 08/19/24 [facility]OV[facility] 07[facility]06-20[facility] ZAY[facility]B ZAIDI ([id number]) 1955 F Date Time Provider Department 07/06/24 10:30 AM AUGUSTINA VARGAS [facility] During your visit today, we recorded the following information about you: Blood pressure Weight 132/70 61.6 kg Augustina Vargas MD 07/06/2024 11:47 AM Signed [facility] SECTION FOR CHRONIC PELVIC PAIN OUTPATIENT VISIT DATE 07/06/2024 OUTPATIENT VISIT TYPE FOLLOW UP CHIEF COMPLAINT Zaynab Zaidi is a 68 year old female who presents for chronic pelvic pain follow up with abdominal TPI and vaginal Botox. HISTORY OF PRESENT ILLNESS Zaynab is a 68 year old female who is in today for chronic pelvic pain follow up with abdominal TPI and vaginal Botox and accompanied by self. Since last visit: The patient states that her pain has improved with Flexeril, and she is completing PFPT. She reports that the exercises involve stretching and external work, with nothing internal so far. However, she continues to experience intermittent left-sided tingling and numbness in her pelvic area, which radiates to her lower back and left thigh. Additionally, she is still dealing with constipation and notes seeing a purple spot in her vagina. When sitting, she reports a sensation of sitting on a ball. She reports doing well with PFPT. Intensity of pain: mild-moderate Average Pain level: 4-5 on a scale of 0-10 Emergency room visits for pain since last visit: no Level of physical activity and mobility: I try to be active all the time. Yesterday, I walked a mile and felt sore. Some days I'm active I fell fine but yesterday I felt bad Quality of sleep: most night I can sleep through the night and other nights I wake up and reposition myself to get comfortable Mood: most of the time I'm in a good mood, I get a little weary with travel Side effects of medications for pain: no SUMMARY FROM LAST VISIT Date: 05/27/2024 Encounter Diagnosis ICD-10-CM 1. 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 Chronic pelvic pain in female R10.2 G89.29 PLAN See pelvic floor PHYSICAL THERAPY You can search for others [email or web address], enter zip or city You can click on names for the bios if they have them Use flexeril vaginally at night We can see if botox vaginally is covered by the insurance F/u 3 month virtually You have tight pelvic floor muscles TREATMENT HISTORY No specialty comments available. PHYSICAL EXAM BP 132/70 Wt 61.6 kg (135 lb 12.9 oz) LMP (LMP Unknown) BMI 21.27 kg/m? BP 132/70 Wt 61.6 kg (135 lb 12.9 oz) LMP (LMP Unknown) BMI 21.27 kg/m? Physical Exam Abdominal: General: The patient is a well-appearing female in no acute distress. Examination Abdominal tenderness: LLQ pain Vaginal Vestibular tenderness: non-tender Comment: vaginal dryness Rectal tenderness: non-tender Bladder base tenderness: non-tender Uterus: Comment: urethral prolapse Pelvic Floor Musculature RIGHT SIDED Pubococcygeus: 2 Iliococcygeus: 2 Coccygeus: 2 Obturator: 2 LEFT SIDED Pubococcygeus: 2 Iliococcygeus: 2 Coccygeus: 2 Obturator: 2 (Pain Scale 1 to 3, 3= extreme) RV exam - deferred LABS/IMAGING: IMAGING: CT 04/2024 ct abd and pelvis IMPRESSION: 1. 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 Kidneys enhance symmetrically without hydronephrosis. 2. Punctate hyperdense foci in the region of the left ureterovesicular junction. Given lack of hydronephrosis, this likely reflect postoperative change from ureteral reimplantation although a punctate stone is difficult to exclude. 3. No acute process. 4. 0.5 cm subpleural nodule in the right lower lobe Incidental Finding: Follow-up Acuity: Incidental Finding: Solid: <6 mm (solitary or multiple) Routing Code: N/A Recommendation: No imaging follow-up is recommended Time Frame: N/A Comments: If there are risk factors for lung malignancy, a follow-up chest CT exam could be obtained in 12 months --END OF FINDING-- ASSESSMENT/PLAN Encounter Diagnosis ICD-10-CM 1. High-tone pelvic floor dysfunction M62.89 onabotulinum toxin type A 100 Units injection (BOTOX) BUPivacaine HCl 25 mg injection (SENSORCAINE) 2. 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 Vaginal dryness N89.8 estradiol (ESTRACE) 0.01 % (0.1 mg/gram) vaginal cream 4. Pelvic congestion N94.89 5. Acute constipation K59.00 6. Postmenopausal atrophic vaginitis N95.2 7. Urethral caruncle N36.2 8. Myalgia M79.10 TRIGGER POINT INJECTION MULTI 1-2 MUSCLE GR Vaginal Botox and abdominal TPI performed today Follow up in 6 weeks virtually 2 estrogen cream apply to urethra and vulva nightly Patient verba (more content not included)... [facility] ZAYNAB AZIDI ([id number]) 1955 F Date Time Provider Department 06/06/24 AUGUSTINA VARGAS [facility] During your visit today, we recorded the following information about you: Augustina Vargas MD 06/06/2024 11:10 PM Signed Botox is approved; can she start PFPT if she desires and then do botox or do botox in office first available appointment Martinez Steele 06/07/2024 8:25 AM Signed Done Martinez Chang Allergies As of Date: 06/06/2024 Noted Allergy Reaction CLINDAMYCIN 06/30/2018 2 - Rash 12 - Shortness of Breath DOXYCYCLINE 12/18/2023 2 - Rash VENOM-HONEY BEE 12/05/2019 2 - Rash CODEINE 06/30/2018 8 - GI Upset Date Reviewed: 05/27/2024 Reviewed by: Radha Chen OCCA - Fully Assessed Reason for Visit: botox auth [Other] Prescriptions as of 06/07/2024 - cyclobenzaprine (FLEXERIL) 5 mg tablet Take 1 tablet by mouth at bedtime as needed. - calcium carbonate/vitamin D3 (CALTRATE 600 + D ORAL) Take 600 mg by mouth two times a day. - atorvastatin (LIPITOR) 20 mg tablet Take 20 mg by mouth every evening. - fluticasone (FLONASE) 50 mcg/actuation nasal spray Use 1 Alsen in the nose as needed for cold/allergy symptoms. Take in allergy season - gabapentin (NEURONTIN) 300 mg capsule Take 300 mg by mouth as needed for pain. - montelukast (SINGULAIR) 10 mg tablet Take 10 mg by mouth once daily. - ibuprofen (MOTRIN) 200 mg tablet Take 400 mg by mouth two times a day. 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 Malnutrition of moderate degree (HCC) [E44.0] 03/03/2024 Encounter Status:Closed by MARTINEZ STEELE on 06/07/24 [facility] Heidi 06-04-2024 CNPN Telephone ([facility]) ZAYNAB ZAIDI ([id number]) 1955 F Date Time Provider Department 06/04/24 AUGUSTINA VARGAS [facility] During your visit today, we recorded the following information about you: Aidee Delong RN 06/04/2024 10:38 AM Signed NICK 05/27/2024 Notes not yet complete Alysha Torres RN == Instructions See pelvic floor PHYSICAL THERAPY You can search for others [email or web address], enter zip or city You can click on names for the bios if they have them Use flexeril vaginally at night We can see if botox vaginally is covered by the insurance F/u 3 month virtually You have tight pelvic floor muscles PATIENT INFORMATION ON PELVIC FLOOR DYSFUNCTION: Myofascial pain( also known as Pelvic floor dysfunction, high tone pelvic floor,pelvic floor tightness) Called Patient. Verified name and . PT is fine with paying the copay of $21. PA not needed. PT aware of goodrx. Pt would like to know if flexeril is to be taken vaginally or orally. Notes and prescription instructions conflict. Aidee Delong RN June 04, 2024 10:38 AM Augustina Vargas MD 06/06/2024 11:07 PM Signed Tell her fleexeril, I like to try it vaginally first (less side effects ) and use at night. Insert as far as it will go vaginally at night It can cause grogginess but more so if used orally Kira Alvarez RN 06/07/2024 10:25 AM Signed Called pt; verified name/. Advised pt to use Flexeril vaginally, inserting as far as it will go at bedtime. Advised pt that it may cause drowsiness, but to a lesser degree when inserted vaginally vs. orally. Pt verbalized understanding and had no further questions. Kira Alvarez RN June 07, 2024 10:25 AM Allergies As of Date: 06/04/2024 Noted Allergy Reaction CLINDAMYCIN 06/30/2018 2 - Rash 12 - Shortness of Breath DOXYCYCLINE 12/18/2023 2 - Rash VENOM-HONEY BEE 12/05/2019 2 - Rash CODEINE 06/30/2018 8 - GI Upset Date Reviewed: 05/27/2024 Reviewed by: Radha Chen OCCA - Fully Assessed Reason for Visit: Patient Question [3257] Prescriptions as of 06/07/2024 - cyclobenzaprine (FLEXERIL) 5 mg tablet Take 1 tablet by mouth at bedtime as needed. - calcium carbonate/vitamin D3 (CALTRATE 600 + D ORAL) Take 600 mg by mouth two times a day. - atorvastatin (LIPITOR) 20 mg tablet Take 20 mg by mouth every evening. - fluticasone (FLONASE) 50 mcg/actuation nasal spray Use 1 Alsen in the nose as needed for cold/allergy symptoms. Take in allergy season - gabapentin (NEURONTIN) 300 mg capsule Take 300 mg by mouth as needed for pain. - montelukast (SINGULAIR) 10 mg tablet Take 10 mg by mouth once daily. - ibuprofen (MOTRIN) 200 mg tablet Take 400 mg by mouth two times a day. 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 Vargas Additional comments: patient was given medication - cyclobenzaprine (FLEXERIL) 5 mg tablet and the pharmacist told her , he never heard this being vaginally inserted, so he prescribed it by to take by mouth, please advise. Recommendation: routed to nurse triage pool Last visit in this department: Visit date not found Last distance health visit in this department: Visit date not found Next visit in this department: 08/27/2024 08/27/2024 [facility] with AUGUSTINA VARGAS - 3 MO F/U - TVST ok per Dr. Vargas , PLS CALL HOME PHONE PT is unable to do VV Alysha Torres RN 05/28/2024 12:47 PM Signed NICK 05/27/2024 Notes not yet complete Alysha Torres RN == Instructions See pelvic floor PHYSICAL THERAPY You can search for others [email or web address], enter zip or city You can click on names for the bios if they have them Use flexeril vaginally at night We can see if botox vaginally is covered by the insurance F/u 3 month virtually You have tight pelvic floor muscles PATIENT INFORMATION ON PELVIC FLOOR DYSFUNCTION: Myofascial pain( also known as Pelvic floor dysfunction, high tone pelvic floor,pelvic floor tightness) Allergies As of Date: 05/28/2024 Noted Allergy Reaction CLINDAMYCIN 06/30/2018 2 - Rash 12 - Shortness of Breath DOXYCYCLINE 12/18/2023 2 - Rash VENOM-HONEY BEE 12/05/2019 2 - Rash CODEINE 06/30/2018 8 - GI Upset Date Reviewed: 05/27/2024 Reviewed by: Radha Chen OCCA - Fully Assessed Reason for Visit: Medication Problem [65] Prescriptions as of 08/18/2024 - cyclobenzaprine (FLEXERIL) 5 mg tablet 1 tablet at bedtime as needed. Use vaginally - estradiol (ESTRACE) 0.01 % (0.1 mg/gram) vaginal cream Use 0.5 g vaginally daily at bedtime. Apply finger tipped size to vulva, urethra nightly - calcium carbonate/vitamin D3 (CALTRATE 600 + D ORAL) Take 600 mg by mouth two times a day. - atorvastatin (LIPITOR) 20 mg tablet Take 20 mg by mouth every evening. - fluticasone (FLONASE) 50 mcg/actuation nasal spray Use 1 Alsen in the nose as needed for cold/allergy symptoms. Take in allergy season - gabapentin (NEURONTIN) 300 mg capsule Take 300 mg by mouth as needed for pain. - montelukast (SINGULAIR) 10 mg tablet Take 10 mg by mouth once daily. - ibuprofen (MOTRIN) 200 mg tablet Take 400 mg by mouth two times a day. 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/2024 Narcotic drug use [F11.90] 02/19/2024 Sinus bradycardia on ECG [R00.1] 02/20/2024 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 Malnutrition of moderate degree (HCC) [E44.0] 03/03/2024 Encounter Status:Closed by AUGUSTINA VARGAS on 08/18/24 [facility] CNOVon 05-27-2024 CNOV Office Visit ([facility] ) ZYANAB ZAIDI ([id number]) 1955 F Date Time Provider Department 05/27/24 10:30 AM CHIP CARR During your visit today, we recorded the following information about you: Chip Carr MD 05/27/2024 11:03 AM Signed REASON FOR VISIT: Follow-up with CT imaging HPI: 68 yo female S/P SP left renal autotransplant and ureteral stent placement (03/02/24) Returns today for follow-up Recent CT imaging completed (04/26/24) Completed due to lower pelvic discomfort LABS: Creatinine Date Value Ref Range Status 03/04/2024 0.81 0.58 - 0.96 mg/dL Final 03/03/2024 0.89 0.58 - 0.96 mg/dL Final 03/02/2024 0.86 0.58 - 0.96 mg/dL Final Creatinine (POCT) Date Value Ref Range Status 04/26/2024 0.80 0.7 - 1.4 mg/dL Final IMAGING: CT abdomen/pelvis (04/30/24): 1. 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 Kidneys enhance symmetrically without hydronephrosis. 2. Punctate hyperdense foci in the region of the left ureterovesicular junction. Given lack of hydronephrosis, this likely reflect postoperative change from ureteral reimplantation although a punctate stone is difficult to exclude. 3. No acute process. 4. 0.5 cm subpleural nodule in the right lower lobe ALLERGIES: ALLERGIES Allergen Reactions Clindamycin Rash, Shortness of Breath Doxycycline Rash Venom-Honey Bee Rash Codeine GI Upset MEDICATIONS: Current Outpatient Medications Medication Sig tamsulosin (FLOMAX) 0.4 mg Take 1 capsule by mouth daily at bedtime. calcium carbonate/vitamin D3 (CALTRATE 600 + D ORAL) Take 600 mg by mouth two times a day. atorvastatin (LIPITOR) 20 mg tablet Take 20 mg by mouth every evening. fluticasone (FLONASE) 50 mcg/actuation nasal spray Use 1 Alsen in the nose as needed for cold/allergy symptoms. Take in allergy season gabapentin (NEURONTIN) 300 mg capsule Take 300 mg by mouth as needed for pain. montelukast (SINGULAIR) 10 mg tablet Take 10 mg by mouth once daily. ibuprofen (MOTRIN) 200 mg tablet Take 400 mg by mouth two times a day. 400-800 mg 3-4 PRN No current facility-administered medications for this visit. 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 PAST SURGICAL HISTORY 2020: PAST SURGICAL HISTORY OF; Right Comment: styloidectomy for beaver syndrome No date: PAST SURGICAL HISTORY OF Comment: R knee menisus repair No date: PAST SURGICAL HISTORY OF Comment: falloption tube tied 11/24/2023: PAST SURGICAL HISTORY OF Comment: right submandibular duct dilation with steroid irrigation No date: REMOVAL GALLBLADDER; N/A Comment: Social History Tobacco Use Smoking status: Former Packs/day: 1.00 Years: 27.00 Additional pack years: 0.00 Total pack years: 27.00 Types: Cigarettes Quit date: 2010 Years since quittin.6 Passive exposure: Never Smokeless tobacco: Never Vaping Use Vaping Use: Never used Substance Use Topics Alcohol use: Not Currently Drug use: Never REVIEW OF SYSTEMS General: No weight loss, malaise or fevers. Genitourinary: See HPI The remainder of the ROS was reviewed and negative. PHYSICAL EXAMINATION General: No acute distress Genitourinary: FEMALE EXAM: Exam NOT Indicated PROBLEMS: Patient is doing great Flank pain is gone Incision looks great She has some pelvic floor pain who she is seeing PT for She had a CT that looks great PLAN -Follow up as needed Chip Carr MD Allergies As of Date: 05/27/2024 Noted Allergy Reaction CLINDAMYCIN 06/30/2018 2 - Rash 12 - Shortness of Breath DOXYCYCLINE 12/18/2023 2 - Rash VENOM-HONEY BEE 12/05/2019 2 - Rash CODEINE 06/30/2018 8 - GI Upset Date Reviewed: 05/27/2024 Reviewed by: Radha Chen OCCA - Fully Assessed Reason for Visit: Follow Up [171] Primary Visit Diagnosis:Flank pain [R10.9] Prescriptions as of 05/27/2024 - cyclobenzaprine (FLEXERIL) 5 mg tablet Take 1 tablet by mouth at bedtime as needed. - tamsulosin (FLOMAX) 0.4 mg Take 1 capsule by mouth daily at bedtime. - calcium carbonate/vitamin D3 (CALTRATE 600 + D ORAL) Take 600 mg by mouth two times a day. - atorvastatin (LIPITOR) 20 mg tablet Take 20 mg by mouth every evening. - fluticasone (FLONASE) 50 mcg/actuation nasal spray Use 1 Alsen in the nose as needed for cold/allergy symptoms. Take in allergy season - gabapentin (NEURONTIN) 300 mg capsule Take 300 mg by mouth as needed for pain. - montelukast (SINGULAIR) 10 mg tablet Take 10 mg by mouth once daily. - ibuprofen (MOTRIN) 200 mg tablet Take 400 mg by mouth two times a day. 400-800 mg 3-4 PRN Facility-Administered Medications as of 05/27/2024 - onabotulinum toxin type A 100 Units injection (BOTOX) Problem List As Of Date 05/27/2024 Noted Resolved Pararenal abdominal aortic aneurys (more content not included)... Normal [facility] ZAYNAB ZAIDI ([id number]) 1955 F Date Time Provider Department 05/27/24 9:00 AM AUGUSTINA VARGAS [facility] During your visit today, we recorded the following information about you: Blood pressure Weight Height 146/80 60.3 kg 1.702 m Augustina Vargas MD 06/06/2024 11:06 PM Signed [facility] SECTION FOR CHRONIC PELVIC PAIN OUTPATIENT VISIT DATE 05/27/2024 OUTPATIENT VISIT TYPE CONSULT REFERRING PROVIDER: No ref. provider found PRIMARY CARE PROVIDER: Ammon Lucas MD PRIMARY NURSE CONSULTANT: Consultation requested by referring provider above for an opinion regarding Zaynab Zaidi, and my final recommendations will be communicated back to the requesting physician by way of shared medical record or letter via US mail. CHIEF COMPLAINT/REASON FOR CONSULTATION Chronic pelvic pain evaluation HISTORY OF PRESENT ILLNESS Zaynab is a 68 year od . who presents for evaluation of chronic pelvic pain. 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 It actually was very stressful, developed may a few month later; she tried to quit but asked to come back AND do half Pain started 18 months ago with UTI symptoms. Has gone to the ER for pain on multiple occasions. Vaginal varicose vein. 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 1 month after the job , felt like a UTi like burning, they did see microscopic blood in the urine. No kidney stone. Bc of the pain, Feels like something is falling out They did the ultrasound AND possibly saw a varicose vein; then saw [facility] dr marino ; told possibly PCS, then vascular surgeon in [place], ultrasound orders in 3 venograms done , they found PCS, 2nd one they planned to coil, when they went in, she said the pressure was too high. She left, went to see dr camp, felt NCS causing PCS, then had renal autotransplant. 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 Patient is postmenopausal. Cycles: Menopausal Last pap: Pap Results: WNL/neg HPV 03/2023 History of abnormal pap: No [place]: (MA intake) Dyspareunia: both insertional and deep Sex was not painful prior to onset of this pain. Pt is not currently active due to pain with intercourse. denies pain with external touch. Orgasm does not increase pain. OB Hx: (page 4) Number of pregnancies: 2 Number of deliveries: 2 Number of C/S: 0 Complications with delivery: none Pain characteristics: (page 5) Pain started (month/year): 11/2022 Inciting event: No obvious cause/do not know Onset: Gradual Duration of pain: 12 months-2 years Character of pain: Crampy, Heavy feeling in pelvis, Dull, achy, Pulling, tugging, Burning, and Falling out sensation Wakes from sleep: Yes Radiation of pain: Yes Aggravating factors: Walking, Climbing stairs, Urination, Stress, Housework, Getting in/out of car, and Bowel movements Alleviating factors: Lying down/rest, Ice or heating pad, Massage, and Ibuprofen/Tylenol Bowel habits: (page 12-13) Nausea/vomiting: endorses Diarrhea: denies Abdominal pain: endorses Bloating: endorses Constipation: endorses Increased pain with bowel movements: endorses Blood in stool: denies Pain with change in frequency of stool: endorses Pain with change in appearance of stool: endorses Pain changes with bowel movements: endorses. Pickens scale: dnc Pudendal symptoms: (page 13) Pain located in clitoris, vulva/labia, or anus? endorses Numbness in same area: denies Worsened with sitting: endorses Pain wakes from sleep: endorses History of pudendal nerve block: denies If yes, improvement: denies History of severe sports injury: denies History of motor vehicle accident: denies History of fall injuries: denies Urinary habits: (page 14) Voids 7-10 times per day and 1 times at night. PUF: 16 (>19 suggests IC) Stress incontinence: endorses Urinary hesitancy/difficult (more content not included)... Normal [facility] URINALYSIS, REFLEX MICROSCOP ICon 05-27-2024 Bilirubin Ql (U) Negative Negative [facility] Clarity (Unsp spec) Clear Clear [facility] Color (U) Yellow Yellow [facility] Glucose Test strip (U) [Mass/Vol] Negative Negative [facility] Hemoglobin Ql (U) Negative Negative [facility] Interpretation and review of laboratory results Normal [facility] Ketones Ql (U) Negative Negative [facility] Leukocyte esterase Test strip Ql (U) Negative Negative [facility] Nitrite Ql (U) Negative Negative [facility] pH (U) 5.5 [pH] NINF - 8.5 [facility] Protein (U) [Mass/Vol] Negative Negative [facility] Specific gravity (U) [Rel density] 1.010 1.005 - 1.030 [facility] Urobilinogen Ql (U) 0.2 EU/dL 0.2-1.0 EU/dL [facility] This test was develo ped and its performance characteristics determined by [facility]'s [facility] ([facility]). It has not been cleared or approved by the FDA. [facility] is regulated under CLIA as qualified to perform high-complexity testing. This test is used for clinical purposes. It should not be regarded as investigational or for research. [facility] Bilirubin Ql (U) Negative Normal Negative [facility] Comment on above: Order Comment: Specimen Type: URINE SPEC IMENOrdering Facility: [facility] Address: [address] [place] [address] Performed By: #### L [id number] ####[facility] LABIA [id number] [place] [address] [place] Clarity (Unsp spec) Clear Normal Clear [facility] Comment on above: Order Comment: Specimen Type: URINE SPEC IMENOrdering Facility: [facility] Address: [address] [place] [address] Performed By: #### L [id number] ####[facility] LABIA [id number] [place] [address] [place] Color (U) Yellow Normal Yellow [facility] Comment on above: Order Comment: Specimen Type: URINE SPEC IMENOrdering Facility: [facility] Address: [address] [place] [address] Performed By: #### L [id number] ####[facility] LABIA [id number] [place] [address] [place] Glucose Test strip (U) [Mass/Vol] Negative Normal Negative [facility] Comment on above: Order Comment: Specimen Type: URINE SPEC IMENOrdering Facility: [facility] Address: [address] [place] [address] Performed By: #### L [id number] ####[facility] LABCLIA [id number] [place] [address] [place] Hemoglobin Ql (U) Negative Normal Negative [facility] Comment on above: Order Comment: Specimen Type: URINE SPEC IMENOrdering Facility: [facility] Address: [address] [place] [address] Performed By: #### L [id number] ####[facility] LABCLIA [id number] [place] [address] [place] Ketones Ql (U) Negative Normal Negative [facility] Comment on above: Order Comment: Specimen Type: URINE SPEC IMENOrdering Facility: [facility] Address: [address] [place] [address] Performed By: #### L [id number] ####[facility] LABCLIA [id number] [place] [address] [place] Leukocyte esterase Test strip Ql (U) Negative Normal Negative [facility] Comment on above: Order Comment: Specimen Type: URINE SPEC IMENOrdering Facility: [facility] Address: [address] [place] [address] Performed By: #### L [id number] ####[facility] LABCLIA [id number] [place] [address] [place] Nitrite Ql (U) Negative Normal Negative [facility] Comment on above: Order Comment: Specimen Type: URINE SPEC IMENOrdering Facility: [facility] Address: [address] [place] [address] Performed By: #### L [id number] ####[facility] LABCLIA [id number] [id number] [address] [place] pH (U) 5.5 [pH] Normal <8.5 [facility] Comment on above: Order Comment: Specimen Type: URINE SPEC IMENOrdering Facility: [facility] Address: [address] [place] [address] Performed By: #### L [id number] ####[facility] LABIA [id number] [place] [address] [place] Protein (U) [Mass/Vol] Negative Normal Negative [facility] Comment on above: Order Comment: Specimen Type: URINE SPEC IMENOrdering Facility: [facility] Address: [address] [place] [address] Performed By: #### L [id number] ####[facility] [id number] [address] [place] Specific gravity (U) [Rel density] 1.010 Normal 1.005-1.03 0 [facility] Comment on above: Order Comment: Specimen Type: URINE SPEC IMENOrdering Facility: [facility] Address: [address] [place] [address] Performed By: #### L [id number] ####[facility] [id number] [address] [place] Urobilinogen Ql (U) 0.2 EU/dL Normal 0.2-1.0 EU/dL [facility] Comment on above: Order Comment: Specimen Type: URINE SPEC IMENOrdering Facility: [facility] Address: [address] [place] [address] Performed By: #### L [id number] ####[facility] LABIA [id number] [place] [address] [place] [address] CHEST WO CONTon 4 CT CHEST WO CONT CT CHEST WO CONT History: [Pulmonary nodule] Procedure: Standard CT of the [chest without contrast] was performed. Automatic exposure control was utilized for dosage reduction technique. Appropriate two-dimensional reconstructions were obtained. All CT scans at this facility use dose modulation, iterative reconstruction, and/or weight based dosing when appropriate to reduce radiation dose to as low as reasonably achievable.All CT scans at this facility use dose modulation, iterative reconstruction, and/or weight based dosing when appropriate to reduce radiation dose to as low as reasonably achievable. Findings: [Comparison is made with 01/16/2024. CT of the chest again demonstrates enlargement of the main pulmonary artery and proximal portions of the [right pulmonary artery, similar to 01/16/2024. Some calcified plaques are noted within the left coronary circulation. There is no definite mediastinal adenopathy or pleural effusion. A pleural-based right upper lobe opacities are again noted. There is a triangular pleural-based opacity in the superior segment of the right lower lobe abutting the major fissure that measures 20 x 9 mm in cross-sectional dimension, unchanged since the earliest CT chest from 06/24/2023. The nodule in the superior aspect of the left lower lobe and adjacent smaller nodules is stable. On the lung window images it measures approximately 4 mm in diameter, unchanged since 01/16/2024 and 06/24/2023. Smaller adjacent subpleural nodules and fissural thickening are also noted. Findings of COPD with small cyst or bulla are present. There is no new pulmonary nodule or mass. Impression: [The 4 mm nodule in the superior segment of the left lower lobe with adjacent small strandy opacities, smaller nodules, and fissural thickening are stable since 01/16/2024 and since 06/24/2023. Recommend standard screening CT chest one year. Findings of COPD with enlargement of the pulmonary arteries are stable] Finalized by Josef Villafuerte MD on 05/11/2024 8:36 AM Normal [facility] CREATININE, BLOOD (POC)on Creatinine [Mass/Vol] 0.80 mg/dL 0.7 - 1.4 mg/dL [facility] eGFR (POCT) mL/min/1.7 3 m2 [facility] Location:Radiology [facility], [address] [place] [address], [address] [place] [address] POINT OF CARE [facility] CT ABD/PEL W IVCONon 024 CT ABD/PEL W IVCON * * *Final Report* * * DATE OF EXAM: Apr 26 2024 2:30PM [facility] 0530 - CT ABD/PEL W IVCON / PROCEDURE REASON: kidney transplat status * * * * Physician Interpretation * * * * EXAMINATION: CT ABDOMEN AND PELVIS WITH IV CONTRAST CLINICAL HISTORY: Status post kidney transplant, pelvic pain, possible fistula, gassy TECHNIQUE: CT of the abdomen and pelvis was performed using standard technique, scanning from just above the dome of the diaphragm to the symphysis pubis. MQ: CTAP_3 Contrast: IV: 80 ml of Omnipaque 350 : ml of CT Radiation dose: Integrated Dose-length product (DLP) for this visit = 410 mGy*cm. CT Dose Reduction Employed: Automated exposure control (AEC) COMPARISON: None. RESULT: Liver: Mild hepatic steatosis. Subcentimeter hypodensity in the left hepatic lobe, too small to characterize. Biliary: Gallbladder is absent. Spleen: No mass. No splenomegaly. Pancreas: No mass or duct dilation. Adrenals: No mass. Kidneys: Left kidney has been auto-transplanted into the pelvis. Kidneys enhance symmetrically without hydronephrosis or renal stones. Punctate 0.3 cm hyperdensity in the region of the left UVJ. GI tract: Stomach is collapsed. Colon is normal in caliber without obstruction. Appendix is not definitely seen. Small bowel is normal in caliber without obstruction Lymph nodes: No abdominal or pelvic lymphadenopathy. Mesentery/Peritoneum: No ascites or mass. Retroperitoneum: No mass. Vasculature: - Abdominal aorta and iliac arteries: Atherosclerotic calcifications without aneurysm. - Celiac and SMA: Patent without stenosis. - Portal venous system (SMV, splenic vein, portal vein and branches): Patent. - Hepatic veins: Patent. Pelvis: Urinary bladder is under distended. Uterus is present. No pelvic lymphadenopathy. Bones/Soft Tissues: No suspicious osseous lesions. Degenerative changes in the thoracolumbar spine. Lower thorax: 0.5 cm subpleural nodule in the right lower lobe (60, 3) Localizer images: No additional findings. IMPRESSION: 1. 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 Kidneys enhance symmetrically without hydronephrosis. 2. Punctate hyperdense foci in the region of the left ureterovesicular junction. Given lack of hydronephrosis, this likely reflect postoperative change from ureteral reimplantation although a punctate stone is difficult to exclude. 3. No acute process. 4. 0.5 cm subpleural nodule in the right lower lobe Incidental Finding: Follow-up Acuity: Incidental Finding: Solid: <6 mm (solitary or multiple) Routing Code: N/A Recommendation: No imaging follow-up is recommended Time Frame: N/A Comments: If there are risk factors for lung malignancy, a follow-up chest CT exam could be obtained in 12 months --END OF FINDING-- Machine Filler Shredder: TRINI Transcribe Date/Time: Apr 30 2024 12:52P Dictated by : KARI LUJAN MD This examination was interpreted and the report reviewed and electronically signed by: KARI LUJAN MD on Apr 30 2024 1:16PM EST [id number] [id number] Invalid Interpretation Code [facility] NURSING PROGon 04-26-2024 NURSING PROG HNO ID: [id number] Author: JORGE OLEA RN Service: Radiology Author Type: Registered Nurse Type: Nursing Progress Note Filed: 04/26/2024 14:20 Note Text: Radiology Service Progress Note DATE OF SERVICE: April 26, 2024 TIME: 1:22 PM PATIENT WEIGHT: 133LBS PATIENT IDENTITY VERIFICATION COMPLETED USING TWO (2) STANDARD IDENTIFIERS: Name and Date of confirmed by patient verbally and Name and Date of confirmed by identification band. FALL SCREENING: Has the patient had 2 falls in the last year or 1 fall with injury or currently using an Ambulatory Assistive Device (Walker, Cane, Wheelchair, Crutches, etc.)? No PATIENT GENDER DATA: Female. status: : No status: NO. ALLERGIES: Reviewed and unchanged CONTRAST ALLERGY: No EXAM: CT -CONTRAST INDUCED NEPHROPATHY RISK FACTORS: Patient age > 60 years and History of Kidney surgery, Kidney neoplasm, Liver disease, and/or any recent Nephrotoxic Chemotherapy or other Nephrotoxic medications CREATININE: Creatinine Date Value Ref Range Status 03/04/2024 0.81 0.58 - 0.96 mg/dL Final 03/03/2024 0.89 0.58 - 0.96 mg/dL Final 03/02/2024 0.86 0.58 - 0.96 mg/dL Final Estimated Glomerular Filtration Rate Date Value Ref Range Status 03/04/2024 80 >=60 mL/min/1.73m? Final Comment: Estimated Glomerular Filtration Rate (eGFR) is calculated using the 2020 CKD-EPI creatinine equation. This equation utilizes serum creatinine, sex, and age as parameters. The creatinine assay has traceable calibration to isotope dilution-mass spectrometry. Refer to KDIGO guidelines for clinical interpretation. In patients with unstable renal function, e.g. those with acute kidney injury, the eGFR may not accurately reflect actual GFR. P.O.C.T. RESULTS: POC done: Yes, See Lab Tab April 26, 2024 Cr. 0.8 TREATMENT: N/A IV SITE: Ambulatory: A peripheral IV was started in the Right antecubital site with a Angio cath: 20 gauge. and A Saline lock was inserted per protocol IV SITE APPEARANCE: Clean,Dry and Intact SIGNATURE: Alysha Dale RN PATIENT NAME: Zaynab Zaidi DATE: April 26, 2024 TIME: 1:22 PM [facility] ZAY[facility]B ZAID[facility] ([id number]) 1955 F Date Time Provider Department 04/21/24 JESÚS BORRERO During your visit today, we recorded the following information about you: Jesús Borrero MD 04/21/2024 12:55 PM Signed Called pt to discuss her postop questions. Discussed no restrictions on activity, swimming, driving, etc. Still having some pain in pelvis but flank pain and other symptoms have improved. Inquiring about f/up -- had stent removed on 04/07. Will set up 3 jorge post op f/up. She is seeing gynecology at [facility] on 05/27, will try to coordinate appt w/ Dr. Carr on that day. Jesús Borrero MD Allergies As of Date: 04/21/2024 Noted Allergy Reaction CLINDAMYCIN 06/30/2018 2 - Rash 12 - Shortness of Breath DOXYCYCLINE 12/18/2023 2 - Rash VENOM-HONEY BEE 12/05/2019 2 - Rash CODEINE 06/30/2018 8 - GI Upset Date Reviewed: 04/07/2024 Reviewed by: Iglesia Love RN - Fully Assessed Prescriptions as of 04/21/2024 - tamsulosin (FLOMAX) 0.4 mg Take 1 capsule by mouth daily at bedtime. - calcium carbonate/vitamin D3 (CALTRATE 600 + D ORAL) Take 600 mg by mouth two times a day. - atorvastatin (LIPITOR) 20 mg tablet Take 20 mg by mouth every evening. - fluticasone (FLONASE) 50 mcg/actuation nasal spray Use 1 Alsen in the nose as needed for cold/allergy symptoms. Take in allergy season - gabapentin (NEURONTIN) 300 mg capsule Take 300 mg by mouth as needed for pain. - montelukast (SINGULAIR) 10 mg tablet Take 10 mg by mouth once daily. - ibuprofen (MOTRIN) 200 mg tablet Take 400 mg by mouth two times a day. 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/2024 Narcotic drug use [F11.90] 02/19/2024 Sinus bradycardia on ECG [R00.1] 02/20/2024 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 Malnutrition of moderate degree (HCC) [E44.0] 03/03/2024 Encounter Status:Closed by JESÚS BORRERO on 04/21/24 [facility] Chaz 04-07-2024 CN[facility] Office Visit (UROSMN ) ZAYNAB ZAIDI ([id number]) 1955 F Date Time Provider Department 04/07/24 11:15 AM CHIP CARR During your visit today, we recorded the following information about you: Pretty Rahman RN 04/07/2024 1:09 PM Signed Actual procedure/procedure scheduled: Yes Performing provider/scheduled provider: Yes Patient was roomed in: Q9- 06 Manager Meeting offered:Patient declines Patient arrived in the room at: 1100 Patient ready for procedure: 1115 Pretty Rahman RN PRE PROCEDURE ASSESSMENT- Cysto Procedure Indication: Cystoscopy and Stent Extraction Latex Allergy: No Allergies reviewed and updated. Yes Heart valve replacement: No Joint replacement: No Back Office UA otained: no PROCEDURE PREP-Cysto Patient ID with two(2)identifiers verified by: Pretty Rahman RN Pre-Procedure Antibiotics: None taken at home nor prior to procedure Patient Prep: Betadine Scrub to perineum and placement of Sterile Drape. COMPLETED Anesthetic Given:10 cc 2% Lidocaine jelly DIANE Mccloud RN took over care. See her note for procedure details. Iglesia Love RN 04/07/2024 3:48 PM Signed The procedure started at ( Time Only): 1246 The procedure ended at: 1247 Was the procedure delayed: Yes: Provider late: Provider in OR The patient left the procedure room at: 1259 Iglesia Love RN PRE PROCEDURE ASSESSMENT- Cysto Pre-Procedure Vital Signs: BP: 150/83 Pulse: 74 Iglesia Love RN UNIVERSAL PROTOCOL / SAFETY CHECKLIST Procedure to be performed: Cystoscopy and Stent Extraction Sign in Communication: Completed Time Out: Team Confirms the Correct Patient, Correct Procedure, Correct Site and Site Marking, Correct Position (if applicable). Sign Out Discussion: Completed Iglesia Love RN POST PROCEDURE NURSE ASSESSMENT Present along with physician during procedure exam. Iglesia Love RN Instruction sheet given and reviewed and patient verbalizes understanding: yes Post Procedure Antibiotic: None Current pain intensity is rated at 7 on a 0-10 scale. Location: abd/pelvic region AND back Pain Character :unable to describe pain Frequency (How often does it occur?) occurs constantly Duration (How long have you had the pain?) unknown DIANE Rubio Jamie, RN 04/07/2024 3:48 PM Signed UNIVERSAL PROTOCOL / SAFETY CHECKLIST Procedure to be Performed: Cystoscopy and Stent Extraction Sign In: A Moment of CARE was completed. Personnel directly involved with the procedure wore the appropriate PPE (Personal Protective Equipment). No special equipment needed. Patient/Surrogate Stated/Verified: PATIENT VERIFIED(optional for EMERGENT procedures): Patient name, Date of , Relevant allergies, and The intended procedure Time Out Communication: Intended patient and procedure match the source documents. Consent documented and matches the intended procedure. Relevant labs, photos, and/or imaging studies have been reviewed. No correct side/site applicable for marking and visibility. Medications required for procedure verified. Fire risk assessed and interventions discussed. No implant(s) inserted. Sign Out: SIGN OUT (optional for EMERGENT procedures): No specimen collected. All instruments, equipment, possible retained foreign bodies accounted for. Post-procedure follow-up management communicated and Plan of Care Visit completed when applicable. DIANE Rubio Yi-Chia, MD 04/10/2024 10:59 AM Signed Zaynab Zaidi is a 68 year old female who presents with s/p autotransplantation for cystoscopy and stent removal. A urinalysis was performed revealing no evidence of infection. The benefits, risks, alternatives of the cystoscopy procedure and personnel were discussed with the patient, and verbal consent was obtained and the patient agrees to proceed. Prophylaxis with Cipro 500 mg was given to the patient prior to the procedure. Procedure: The patient was placed on the procedure table in the supine position and prepped and draped in the usual sterile fashion. 2% Lidocaine Jelly was placed per urethra as an anesthetic in the standard fashion. Once adequate local anesthesia was achieved, the tip of the flexible cystoscope was carefully placed into the urethra under direct video visual guidance and the procedure was performed, with the findings as follows: Meatus: Normal Urethra: Normal Bladder Neck: Normal Bladder: No lesions were seen. Ureteral orifices were visualized in their normal configuration with clear efflux. Significant trabeculation was not noted. Using a grasping forceps, Left autotransplant stent was removed without difficulty. At the conclusion of the procedure, the flexible cystoscope was removed atraumatically. The patient tolerated the procedure without complications. Patient was given standard post-procedure instructions (more content not included)... Normal [facility] CNDSon 03-05-2024 [facility] ID: [id number] Author: CHIP CARR MD Service: Urology Author Type: Resident Type: Discharge Summary Filed: 03/22/2024 15:49 Note Text: Attestation signed by Chip Carr MD at 03/22/2024 3:49 PM Agree with the details as outlined be the resident/ fellow Chip Carr MD [facility] [place] [phone] or [phone] [facility] DISCHARGE SUMMARY Patient Name: Zaynab Zaidi Patient Admission Date: 03/02/2024 Discharge Date: 03/05/2024 Attending Physician: Chip Carr MD Principal Diagnosis: Left flank pain Operations During Hospitalization LEFT 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 Reason for Hospitalization: The patient is a 68 year old female with a PMH of coronary artery sclerosis, AAA, tension headaches, colon polyp, dysphagia, PVD, female pelvic congestion syndrome, jugular vein stenosis, and chronic left flank pain who underwent the above procedure(s). Consulting Services: None Pending laboratory results: None Pending Pathology studies: None Hospital Course: The patient was admitted and underwent the above procedure without complications and postoperatively was taken to the recovery area and subsequently to the regular nursing floor. Pain control was achieved via a combination of PO and IV breakthrough medications.The patient's diet was advanced as tolerated with return of bowel function. The Kirk catheter was maintained on discharge. Her ureteral stent was maintained on discharge and a FU request was made for removal in 4 weeks. The patient will self remove her kirk catheter on POD 7. On postoperative day 3, the patient was afebrile, tolerating a diet, ambulating, and had good pain control. The patient was discharged in stable condition to home and was instructed to follow up as scheduled. Patient Condition at Discharge: Stable Discharge Disposition: Home Information Provided to the Patient: Patient was given a copy of Discharge Instructions Discharge Medications: Medication List START taking these medications acetaminophen 500 mg tablet Commonly known as: TYLENOL EXTRA STRENGTH Take 1 tablet by mouth every 6 hours as needed for pain for up to 7 days. docusate sodium 100 mg capsule Commonly known as: COLACE Take 1 capsule by mouth two times a day for 14 days. methocarbamol 750 mg tablet Commonly known as: ROBAXIN Take 1 tablet by mouth four times a day as needed for up to 5 days. oxyCODONE IR 5 mg immediate release tablet Commonly known as: ROXICODONE Take 1 tablet by mouth every 8 hours as needed for up to 5 days. tamsulosin 0.4 mg Commonly known as: FLOMAX Take 1 capsule by mouth daily at bedtime. CONTINUE taking these medications atorvastatin 20 mg tablet Commonly known as: LIPITOR CALTRATE 600 + D ORAL fluticasone 50 mcg/actuation nasal spray Commonly known as: FLONASE gabapentin 300 mg capsule Commonly known as: NEURONTIN ibuprofen 200 mg tablet Commonly known as: MOTRIN montelukast 10 mg tablet Commonly known as: SINGULAIR STOP taking these medications HYDROcodone-acetaminophen 5-325 mg per tablet Commonly known as: NORCO Where to Get Your Medications These medications were sent to [id number] - [place] [address] - [address] - [phone] [place] [address] acetaminophen 500 mg tablet docusate sodium 100 mg capsule methocarbamol 750 mg tablet oxyCODONE IR 5 mg immediate release tablet tamsulosin 0.4 mg No future appointments. -- Ace Vera MD Normal [facility] Basic metabolic 2000 panelon 03-04-2024 Anion gap [Moles/Vol] 9 mmol/L Normal 9-18 [facility] Comment on above: Order Comment: Specimen Type: BLOOD SPEC IMENOrdering Facility: [facility] Address: [address] [place] [address] Performed By: #### 2 4321-2 ####[facility] LABCLIA [id number] [place] [address] [place] Calcium [Mass/Vol] 9.0 mg/dL Normal 8.5-10.2 [facility] Comment on above: Order Comment: Specimen Type: BLOOD SPEC IMENOrdering Facility: [facility] Address: [address] [place] [address] Performed By: #### 2 4321-2 ####[facility] LABCLIA [id number] [place] [address] [place] Chloride [Moles/Vol] 98 mmol/L Normal 97-105 [facility] Comment on above: Order Comment: Specimen Type: BLOOD SPEC IMENOrdering Facility: [facility] Address: [address] [place] [address] Performed By: #### 2 4321-2 ####[facility] LABCLIA [id number] [place] [id number] [place] CO2 [Moles/Vol] 31 mmol/L High 22-30 [facility] Comment on above: Order Comment: Specimen Type: BLOOD SPEC IMENOrdering Facility: [facility] Address: [address] [place] [address] Performed By: #### 2 4321-2 ####[facility] LABCLIA [id number] [place] [address] [place] Creatinine [Mass/Vol] 0.81 mg/dL Normal 0.58-0.96 [facility] Comment on above: Order Comment: Specimen Type: BLOOD SPEC IMENOrdering Facility: [facility] Address: [address] [place] [address] Performed By: #### 2 4321-2 ####[facility] [id number] [address] [place] Creatinine and Glomerular filtration rate.predicted panel (S/P/Bld) 80 mL/min/1.73m??? Normal >=60 [facility] Comment on above: Order Comment: Specimen Type: BLOOD SPEC IMENOrdering Facility: [facility] Address: [address] [place] [address] Result Comment: Lani mated Glomerular Filtration Rate (eGFR) is calculated using the 2020 CKD-EPI creatinine equation. This equation utilizes serum creatinine, sex, and age as parameters. The creatinine assay has traceable calibration to isotope dilution-mass spectrometry. Refer to KDIGO guidelines for clinical interpretation. In patients with unstable renal function, e.g. those with acute kidney injury, the eGFR may not accurately reflect actual GFR. Performed By: #### 2 4321-2 ####[facility] LABIA [id number] [place] [address] [place] Glucose [Mass/Vol] 103 mg/dL High 74-99 [facility] Comment on above: Order Comment: Specimen Type: BLOOD SPEC IMENOrdering Facility: [facility] Address: [address] [place] [address] Result Comment: The [place] Diabetes Association (ADA) provides guidance for cutoff values for fasting glucose and random glucose. The ADA defines fasting as no caloric intake for at least 8 hours. Fasting plasma glucose results between 100 to 125 mg/dL indicate increased risk for diabetes (prediabetes). Fasting plasma glucose results greater than or equal to 126 mg/dL meet the criteria for diagnosis of diabetes. In the absence of unequivocal hyperglycemia, results should be confirmed by repeat testing. In a patient with classic symptoms of hyperglycemia or hyperglycemic crisis, random plasma glucose results greater than or equal to 200 mg/dL meet the criteria for diagnosis of diabetes. Reference: Standards of Medical Care in Diabetes 2016, [place] [employer]. Diabetes Care. 2016.39(Suppl 1). Performed By: #### 2 4321-2 ####[facility] LABCLIA [id number] [place] [address] [place] Potassium [Moles/Vol] 3.9 mmol/L Normal 3.7-5.1 [facility] Comment on above: Order Comment: Specimen Type: BLOOD SPEC IMENOrdering Facility: [facility] Address: [address] [place] [address] Performed By: #### 2 4321-2 ####[facility] LABIA [id number] [place] [address] [place] Sodium [Moles/Vol] 138 mmol/L Normal 136-144 [facility] Comment on above: Order Comment: Specimen Type: BLOOD SPEC IMENOrdering Facility: [facility] Address: [address] [place] [address] Performed By: #### 2 4321-2 ####[facility] LABIA [id number] [place] [address] [place] Urea nitrogen [Mass/Vol] 10 mg/dL Normal 7-21 [facility] Comment on above: Order Comment: Specimen Type: BLOOD SPEC IMENOrdering Facility: [facility] Address: [address] [place] [address] Performed By: #### 2 4321-2 ####[facility] LABIA [id number] [place] [id number] [place] CBC W Auto Differential pane l (Bld)on 03-04-2024 Basophils (Bld) [#/Vol] 0.03 10*3/uL Normal <0.11 [facility] Comment on above: Order Comment: Specimen Type: BLOOD SPEC IMENOrdering Facility: [facility] Address: [address] [place] [address] Performed By: #### 5 7021-8 ####[facility] LABCLIA [id number] [place] [address] [place] Basophils/100 WBC (Bld) 0.4 % Normal [facility] Comment on above: Order Comment: Specimen Type: BLOOD SPEC IMENOrdering Facility: [facility] Address: [address] [place] [address] Performed By: #### 5 7021-8 ####[facility] LABCLIA [id number] [place] [address] [place] Differential cell count method Nom (Bld) Auto Normal [facility] Comment on above: Order Comment: Specimen Type: BLOOD SPEC IMENOrdering Facility: [facility] Address: [address] [place] [address] Performed By: #### 5 7021-8 ####[facility] LABCLIA [id number] [place] [address] [place] Eosinophils (Bld) [#/Vol] 0.08 10*3/uL Normal <0.46 [facility] Comment on above: Order Comment: Specimen Type: BLOOD SPEC IMENOrdering Facility: [facility] Address: [address] [place] [address] Performed By: #### 5 7021-8 ####[facility] LABCLIA [id number] [place] [address] [place] Eosinophils/100 WBC (Bld) 1.1 % Normal [facility] Comment on above: Order Comment: Specimen Type: BLOOD SPEC IMENOrdering Facility: [facility] Address: [address] [place] [address] Performed By: #### 5 7021-8 ####[facility] LABCLIA [id number] [place] [address] [place] Erythrocyte distribution width (RBC) [Ratio] 14.1 % Normal 11.5-15.0 [facility] Comment on above: Order Comment: Specimen Type: BLOOD SPEC IMENOrdering Facility: [facility] Address: [address] [place] [address] Performed By: #### 5 7021-8 ####[facility] LABIA [id number] [place] [address] [place] Hematocrit (Bld) [Volume fraction] 38.2 % Normal 36.0-46.0 [facility] Comment on above: Order Comment: Specimen Type: BLOOD SPEC IMENOrdering Facility: [facility] Address: [address] [place] [address] Performed By: #### 5 7021-8 ####[facility] LABIA [id number] [place] [address] [place] Hemoglobin (Bld) [Mass/Vol] 12.8 g/dL Normal 11.5-15.5 [facility] Comment on above: Order Comment: Specimen Type: BLOOD SPEC IMENOrdering Facility: [facility] Address: [address] [place] [address] Performed By: #### 5 7021-8 ####[facility] LABIA [id number] [place] [address] [place] Immature granulocytes (Bld) [#/Vol] 10*3/uL Normal <0.10 [facility] Comment on above: Order Comment: Specimen Type: BLOOD SPEC IMENOrdering Facility: [facility] Address: [address] [place] [address] Performed By: #### 5 7021-8 ####[facility] LABIA [id number] [place] [address] [place] Immature granulocytes/100 WBC (Bld) 0.1 % Normal [facility] Comment on above: Order Comment: Specimen Type: BLOOD SPEC IMENOrdering Facility: [facility] Address: [address] [place], [place] [address] Performed By: #### 5 7021-8 ####[facility] LABCLIA [id number] [place] [address] [place] Lymphocytes (Bld) [#/Vol] 0.88 10*3/uL Low 1.00-4.00 [facility] Comment on above: Order Comment: Specimen Type: BLOOD SPEC IMENOrdering Facility: [facility] Address: [address] [place] [address] Performed By: #### 5 7021-8 ####[facility] LABCLIA [id number] [place] [address] [place] Lymphocytes/100 WBC (Bld) 11.8 % Normal [facility] Comment on above: Order Comment: Specimen Type: BLOOD SPEC IMENOrdering Facility: [facility] Address: [address] [place] [address] Performed By: #### 5 7021-8 ####[facility] LABCLIA [id number] [place] [address] [place] MCH (RBC) [Entitic mass] 29.2 pg Normal 26.0-34.0 [facility] Comment on above: Order Comment: Specimen Type: BLOOD SPEC IMENOrdering Facility: [facility] Address: [address] [place] [address] Performed By: #### 5 7021-8 ####[facility] LABCLIA [id number] [place] [address] [place] MCHC (RBC) [Mass/Vol] 33.5 g/dL Normal 30.5-36.0 [facility] Comment on above: Order Comment: Specimen Type: BLOOD SPEC IMENOrdering Facility: [facility] Address: [address] [place] [address] Performed By: #### 5 7021-8 ####[facility] LABCLIA [id number] [place] [address] [place] MCV (RBC) [Entitic vol] 87.0 fL Normal 80.0-100.0 [facility] Comment on above: Order Comment: Specimen Type: BLOOD SPEC IMENOrdering Facility: [facility] Address: [address] [place] [address] Performed By: #### 5 7021-8 ####[facility] LABCLIA [id number] [place] [address] [place] Monocytes (Bld) [#/Vol] 0.94 10*3/uL High <0.87 [facility] Comment on above: Order Comment: Specimen Type: BLOOD SPEC IMENOrdering Facility: [facility] Address: [address] [place] [address] Performed By: #### 5 7021-8 ####[facility] LABCLIA [id number] [place] [address] [place] Monocytes/100 WBC (Bld) 12.6 % Normal [facility] Comment on above: Order Comment: Specimen Type: BLOOD SPEC IMENOrdering Facility: [facility] Address: [address] [place] [address] Performed By: #### 5 7021-8 ####[facility] LABCLIA [id number] [place] [address] [place] Neutrophils (Bld) [#/Vol] 5.54 10*3/uL Normal 1.45-7.50 [facility] Comment on above: Order Comment: Specimen Type: BLOOD SPEC IMENOrdering Facility: [facility] Address: [address] [place] [address] Performed By: #### 5 7021-8 ####[facility] LABCLIA [id number] [place] [address] [place] Neutrophils/100 WBC (Bld) 74.0 % Normal [facility] Comment on above: Order Comment: Specimen Type: BLOOD SPEC IMENOrdering Facility: [facility] Address: [address] [place] [address] Performed By: #### 5 7021-8 ####[facility] LABCLIA [id number] [place] [address] [place] Nucleated RBC (Bld) [#/Vol] 10*3/uL Normal <0.01 [facility] Comment on above: Order Comment: Specimen Type: BLOOD SPEC IMENOrdering Facility: [facility] Address: [address] [place] [address] Performed By: #### 5 7021-8 ####[facility] LABIA [id number] [place] [address] [place] Nucleated RBC/100 WBC (Bld) [Ratio] 0.0 /100 WBC Normal [facility] Comment on above: Order Comment: Specimen Type: BLOOD SPEC IMENOrdering Facility: [facility] Address: [address] [place] [address] Performed By: #### 5 7021-8 ####[facility] LABIA [id number] [place] [address] [place] Platelet mean volume (Bld) [Entitic vol] 11.1 fL Normal 9.0-12.7 [facility] Comment on above: Order Comment: Specimen Type: BLOOD SPEC IMENOrdering Facility: [facility] Address: [address] [place] [address] Performed By: #### 5 7021-8 ####[facility] LABCLIA [id number] [place] [address] [place] Platelets (Bld) [#/Vol] 154 10*3/uL Normal 150-400 [facility] Comment on above: Order Comment: Specimen Type: BLOOD SPEC IMENOrdering Facility: [facility] Address: [address] [place] [address] Performed By: #### 5 7021-8 ####[facility] LABCLIA [id number] [place] [address] [place] RBC (Bld) [#/Vol] 4.39 10*6/uL Normal 3.90-5.20 [facility] Comment on above: Order Comment: Specimen Type: BLOOD SPEC IMENOrdering Facility: [facility] Address: [address] [place] [address] Performed By: #### 5 7021-8 ####[facility] LABCLIA [id number] [place] [address] [place] WBC (Bld) [#/Vol] 7.48 10*3/uL Normal 3.70-11.00 [facility] Comment on above: Order Comment: Specimen Type: BLOOD SPEC IMENOrdering Facility: [facility] Address: [address] [place] [address] Performed By: #### 5 7021-8 ####[facility] LABCLIA [id number] [place] [address] [place] Basic metabolic 2000 panelon 03-03-2024 Anion gap [Moles/Vol] 12 mmol/L Normal 9-18 [facility] Comment on above: Order Comment: Specimen Type: BLOOD SPEC IMENOrdering Facility: [facility] Address: [address] [place] [address] Performed By: #### 2 4321-2 ####[facility] LABCLIA [id number] [place] [address] [place] Calcium [Mass/Vol] 8.6 mg/dL Normal 8.5-10.2 [facility] Comment on above: Order Comment: Specimen Type: BLOOD SPEC IMENOrdering Facility: [facility] Address: [address] [place] [address] Performed By: #### 2 4321-2 ####[facility] LABCLIA [id number] [place] [id number] [place] Chloride [Moles/Vol] 100 mmol/L Normal 97-105 [facility] Comment on above: Order Comment: Specimen Type: BLOOD SPEC IMENOrdering Facility: [facility] Address: [address] [place] [address] Performed By: #### 2 4321-2 ####[facility] LABCLIA [id number] [place] [address] [place] CO2 [Moles/Vol] 26 mmol/L Normal 22-30 [facility] Comment on above: Order Comment: Specimen Type: BLOOD SPEC IMENOrdering Facility: [facility] Address: [address] [place] [address] Performed By: #### 2 4321-2 ####[facility] LABIA [id number] [address] [place] Creatinine [Mass/Vol] 0.89 mg/dL Normal 0.58-0.96 [facility] Comment on above: Order Comment: Specimen Type: BLOOD SPEC IMENOrdering Facility: [facility] Address: [address] [place] [address] Performed By: #### 2 4321-2 ####[facility] LABIA [id number] [address] [place] [facility] Creatinine and Glomerular filtration rate.predicted panel (S/P/Bld) 72 mL/min/1.73m??? Normal >=60 [facility] Comment on above: Order Comment: Specimen Type: BLOOD SPEC IMENOrdering Facility: [facility] Address: [address] [place] [address] Result Comment: Lani mated Glomerular Filtration Rate (eGFR) is calculated using the 2020 CKD-EPI creatinine equation. This equation utilizes serum creatinine, sex, and age as parameters. The creatinine assay has traceable calibration to isotope dilution-mass spectrometry. Refer to KDIGO guidelines for clinical interpretation. In patients with unstable renal function, e.g. those with acute kidney injury, the eGFR may not accurately reflect actual GFR. Performed By: #### 2 4321-2 ####[facility] LABCLIA [id number] [place] [address] [place] Glucose [Mass/Vol] 129 mg/dL High 74-99 [facility] Comment on above: Order Comment: Specimen Type: BLOOD SPEC IMENOrdering Facility: [facility] Address: [address] [place] [address] Result Comment: The [place] [employer] (ADA) provides guidance for cutoff values for fasting glucose and random glucose. The ADA defines fasting as no caloric intake for at least 8 hours. Fasting plasma glucose results between 100 to 125 mg/dL indicate increased risk for diabetes (prediabetes). Fasting plasma glucose results greater than or equal to 126 mg/dL meet the criteria for diagnosis of diabetes. In the absence of unequivocal hyperglycemia, results should be confirmed by repeat testing. In a patient with classic symptoms of hyperglycemia or hyperglycemic crisis, random plasma glucose results greater than or equal to 200 mg/dL meet the criteria for diagnosis of diabetes. Reference: Standards of Medical Care in Diabetes 2016, [place] [employer]. Diabetes Care. 2016.39(Suppl 1). Performed By: #### 2 4321-2 ####[facility] LABCLIA [id number] [place] [address] [place] Potassium [Moles/Vol] 4.3 mmol/L Normal 3.7-5.1 [facility] Comment on above: Order Comment: Specimen Type: BLOOD SPEC IMENOrdering Facility: [facility] Address: [address] [place] [address] Performed By: #### 2 4321-2 ####[facility] LABCLIA [id number] [place] [address] [place] Sodium [Moles/Vol] 138 mmol/L Normal 136-144 [facility] Comment on above: Order Comment: Specimen Type: BLOOD SPEC IMENOrdering Facility: [facility] Address: [address] [place] [address] Performed By: #### 2 4321-2 ####[facility] LABCLIA [id number] [place] [address] [place] Urea nitrogen [Mass/Vol] 15 mg/dL Normal 7-21 [facility] Comment on above: Order Comment: Specimen Type: BLOOD SPEC IMENOrdering Facility: [facility] Address: [address] [place] [address] Performed By: #### 2 4321-2 ####[facility] LABCLIA [id number] [place] [address] [place] CBC W Auto Differential pane l (Bld)on 03-03-2024 Basophils (Bld) [#/Vol] 10*3/uL Normal <0.11 [facility] Comment on above: Order Comment: Specimen Type: BLOOD SPEC IMENOrdering Facility: [facility] Address: [address] [place] [address] Performed By: #### 5 7021-8 ####[facility] LABCLIA [id number] [place] [address] [place] Basophils/100 WBC (Bld) 0.1 % Normal [facility] Comment on above: Order Comment: Specimen Type: BLOOD SPEC IMENOrdering Facility: [facility] Address: [address] [place] [address] Performed By: #### 5 7021-8 ####[facility] LABCLIA [id number] [place] [address] [place] Differential cell count method Nom (Bld) Auto Normal [facility] Comment on above: Order Comment: Specimen Type: BLOOD SPEC IMENOrdering Facility: [facility] Address: [address] [place] [address] Performed By: #### 5 7021-8 ####[facility] LABCLIA [id number] [place] [address] [place] Eosinophils (Bld) [#/Vol] 10*3/uL Normal <0.46 [facility] Comment on above: Order Comment: Specimen Type: BLOOD SPEC IMENOrdering Facility: [facility] Address: [address] [place] [address] Performed By: #### 5 7021-8 ####[facility] LABCLIA [id number] [place] [address] [place] Eosinophils/100 WBC (Bld) 0.0 % Normal [facility] Comment on above: Order Comment: Specimen Type: BLOOD SPEC IMENOrdering Facility: [facility] Address: [address] [place] [address] Performed By: #### 5 7021-8 ####[facility] LABIA [id number] [place] [address] [place] Erythrocyte distribution width (RBC) [Ratio] 14.1 % Normal 11.5-15.0 [facility] Comment on above: Order Comment: Specimen Type: BLOOD SPEC IMENOrdering Facility: [facility] Address: [address] [place] [address] Performed By: #### 5 7021-8 ####[facility] LABIA [id number] [place] [address] [place] Hematocrit (Bld) [Volume fraction] 37.2 % Normal 36.0-46.0 [facility] Comment on above: Order Comment: Specimen Type: BLOOD SPEC IMENOrdering Facility: [facility] Address: [address] [place] [address] Performed By: #### 5 7021-8 ####[facility] LABIA [id number] [place] [address] [place] Hemoglobin (Bld) [Mass/Vol] 12.0 g/dL Normal 11.5-15.5 [facility] Comment on above: Order Comment: Specimen Type: BLOOD SPEC IMENOrdering Facility: [facility] Address: [address] [place] [address] Performed By: #### 5 7021-8 ####[facility] LABIA [id number] [place] [address] [place] Immature granulocytes (Bld) [#/Vol] 0.03 10*3/uL Normal <0.10 [facility] Comment on above: Order Comment: Specimen Type: BLOOD SPEC IMENOrdering Facility: [facility] Address: [address] [place] [address] Performed By: #### 5 7021-8 ####[facility] LABCLIA [id number] [place] [address] [place] Immature granulocytes/100 WBC (Bld) 0.3 % Normal [facility] Comment on above: Order Comment: Specimen Type: BLOOD SPEC IMENOrdering Facility: [facility] Address: [address] [place] [address] Performed By: #### 5 7021-8 ####[facility] LABCLIA [id number] [place] [address] [place] Lymphocytes (Bld) [#/Vol] 0.46 10*3/uL Low 1.00-4.00 [facility] Comment on above: Order Comment: Specimen Type: BLOOD SPEC IMENOrdering Facility: [facility] Address: [address] [place] [address] Performed By: #### 5 7021-8 ####[facility] LABCLIA [id number] [place] [address] [place] Lymphocytes/100 WBC (Bld) 5.3 % Normal [facility] Comment on above: Order Comment: Specimen Type: BLOOD SPEC IMENOrdering Facility: [facility] Address: [address] [place] [address] Performed By: #### 5 7021-8 ####[facility] LABCLIA [id number] [place] [address] [place] MCH (RBC) [Entitic mass] 29.6 pg Normal 26.0-34.0 [facility] Comment on above: Order Comment: Specimen Type: BLOOD SPEC IMENOrdering Facility: [facility] Address: [address] [place] [address] Performed By: #### 5 7021-8 ####[facility] LABCLIA [id number] [place] [address] [place] MCHC (RBC) [Mass/Vol] 32.3 g/dL Normal 30.5-36.0 [facility] Comment on above: Order Comment: Specimen Type: BLOOD SPEC IMENOrdering Facility: [facility] Address: [address] [place] [address] Performed By: #### 5 7021-8 ####[facility] LABIA [id number] [place] [address] [place] MCV (RBC) [Entitic vol] 91.9 fL Normal 80.0-100.0 [facility] Comment on above: Order Comment: Specimen Type: BLOOD SPEC IMENOrdering Facility: [facility] Address: [address] [place] [address] Performed By: #### 5 7021-8 ####[facility] LABIA [id number] [place] [address] [place] Monocytes (Bld) [#/Vol] 1.03 10*3/uL High <0.87 [facility] Comment on above: Order Comment: Specimen Type: BLOOD SPEC IMENOrdering Facility: [facility] Address: [address] [place] [address] Performed By: #### 5 7021-8 ####[facility] LABCLIA [id number] [place] [address] [place] Monocytes/100 WBC (Bld) 11.9 % Normal [facility] Comment on above: Order Comment: Specimen Type: BLOOD SPEC IMENOrdering Facility: [facility] Address: [address] [place] [address] Performed By: #### 5 7021-8 ####[facility] LABCLIA [id number] [place] [address] [place] Neutrophils (Bld) [#/Vol] 7.10 10*3/uL Normal 1.45-7.50 [facility] Comment on above: Order Comment: Specimen Type: BLOOD SPEC IMENOrdering Facility: [facility] Address: [address] [place] [address] Performed By: #### 5 7021-8 ####[facility] LABCLIA [id number] [place] [address] [place] Neutrophils/100 WBC (Bld) 82.4 % Normal [facility] Comment on above: Order Comment: Specimen Type: BLOOD SPEC IMENOrdering Facility: [facility] Address: [address] [place] [address] Performed By: #### 5 7021-8 ####[facility] LABCLIA [id number] [place] [address] [place] Nucleated RBC (Bld) [#/Vol] 10*3/uL Normal <0.01 [facility] Comment on above: Order Comment: Specimen Type: BLOOD SPEC IMENOrdering Facility: [facility] Address: [address] [place] [address] Performed By: #### 5 7021-8 ####[facility] LABCLIA [id number] [place] [address] [place] Nucleated RBC/100 WBC (Bld) [Ratio] 0.0 /100 WBC Normal [facility] Comment on above: Order Comment: Specimen Type: BLOOD SPEC IMENOrdering Facility: [facility] Address: [address] [place] [address] Performed By: #### 5 7021-8 ####[facility] LABIA [id number] [place] [address] [place] Platelet mean volume (Bld) [Entitic vol] 11.8 fL Normal 9.0-12.7 [facility] Comment on above: Order Comment: Specimen Type: BLOOD SPEC IMENOrdering Facility: [facility] Address: [address] [place] [address] Performed By: #### 5 7021-8 ####[facility] LABIA [id number] [place] [address] [place] Platelets (Bld) [#/Vol] 188 10*3/uL Normal 150-400 [facility] Comment on above: Order Comment: Specimen Type: BLOOD SPEC IMENOrdering Facility: [facility] Address: [address] [place] [address] Performed By: #### 5 7021-8 ####[facility] LABIA [id number] [place] [address] [place] RBC (Bld) [#/Vol] 4.05 10*6/uL Normal 3.90-5.20 [facility] Comment on above: Order Comment: Specimen Type: BLOOD SPEC IMENOrdering Facility: [facility] Address: [address] [place] [address] Performed By: #### 5 7021-8 ####[facility] LABIA [id number] [place] [address] [place] WBC (Bld) [#/Vol] 8.63 10*3/uL Normal 3.70-11.00 [facility] Comment on above: Order Comment: Specimen Type: BLOOD SPEC IMENOrdering Facility: [facility] Address: [address] [place] [address] Performed By: #### 5 7021-8 ####[facility] LABIA [id number] [place] [id number] [place] NUTRITIONon 03-03-2024 NUTRITION HNO ID: [id number] Author: SUSAN RUTLEDGE RD Service: Nutrition Therapy Author Type: Registered Dietitian Type: Nutrition Filed: 03/03/2024 14:41 Note Text: NUTRITION THERAPY INITIAL ASSESSMENT SERVICE DATE: 03/03/2024 SERVICE TIME: 1033 Nutrition Assessment: Recommended Malnutrition Diagnosis: Moderate Protein-Calorie Malnutrition In the context of: Chronic Illness or Injury Based on: Insufficient Energy Intake, Muscle Loss, Subcutaneous Fat Loss Problem: Increased nutrient needs Related to: Chronic illness As evidenced by: Depletion of fat/muscle stores, Food/nutrition related history, Intake records, Medical condition, Patient/family self-report Estimated kilocalorie needs: 9001-5704 Calorie Calculation Method: 25-30 kcals/kg Estimated protein needs (grams): 70-90 Grams protein determined by: 1.2 - 1.5 g/kg Care Plan: Follow for diet advancement to goal (on CLD as of 03/03) Supplements: [employer] 1.0 (BID) Medications: (anti-emetics and bowel regimen PRN) Monitor and Evaluation: Meet greater than 75% of estimated needs, Monitor fluid/electrolyte balance, Monitor labs, I/Os, vital signs, weight, Monitor bowel function Discharge Recommendations: Diet;Oral Supplements;Outpatient Nutrition Therapy appointment Diet: To be determined Oral Supplements: ONS of choice at least 1-2 times daily for additional nutrition support HPI: I have confirmed and edited as necessary the HPI obtained by Tavia Montiel APRN.ASSEMBLER PIANO on 02/19/24 and all reflect current status. 68 year old female with PMHx Coronary artery sclerosis, AAA, tension headaches, colon polyp, dysphagia, PVD, OP, female pelvic congestion syndrome, jugular vein stenosis. Presents to [facility] today for preop exam. Interval History: - Pt typically follows plant based diet having one meal + snacks and one protein shake daily. - Endorses decreased intakes and appetite over the past year and a half d/t pain, nausea, and bloating. - Pt currently receiving CLD. No intakes recorded at this time. Pt anxious for further diet advancement- contacted team for diet advancement timeline. - Discussed ONS. Pt agreeable to trying [employer] BID w/ breakfast and dinner for additional nutrition support. Intake History: Nutrition Intake Prior to Admission: Less than 75% estimated energy needs greater than or equal to 1 month Diet Orders (From admission, onward) Start Ordered 03/02/24 183 DIET LIQUID START NOW Question: Liquid Diet Answer: CLEAR LIQUID 03/02/246 Anthropometrics: Dosing Weight: 60.6 kg (133 lb 9.6 oz) Usual Weight: 54.4 kg (120 lb) 09/09/23 Usual Weight Obtained From: Care Everywhere There is no height or weight on file to calculate BMI. 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 Post Anesthesia Patient Status Patient Evaluation: PACU. PACU/ICU Patient Condition: stable. Anticipated Disposition: inpatient floor planned admission. Neurological Status: aware and responsive. Pulmonary Status: breathing comfortably on supplemental oxygen Airway Control: returned to baseline unsupported. Cardiovascular Status: stable. Pain Management: clinically adequate Postoperative Hydration: acceptable. Intraoperative Events: no significant anesthesia events Post Operative Nausea/Vomiting Status: no significant post operative nausea or vomiting Recommendation: continue current plan of care and further care per PACU/ICU/floor team. Anesthesia Observations No Documentation SIGNATURE: Azalea Serra MD PATIENT NAME: Zaynab Zaidi DATE: March 02, 2024 TIME: 4:55 PM CSN: [id number] Normal [facility] ANES PRE-OPon 03-02-2024 ANES PRE-OP HNO ID: [id number] Author: AZALEA SERRA MD Service: ? Author Type: Anesthesiologist Type: Anesthesia Preprocedure Evaluation Filed: 03/02/2024 07:22 Note Text: ANESTHESIOLOGY DAY OF SURGERY NOTE : 1955 Procedure Information Date/Time: 03/02/24729 Procedure: 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 (Left: Prostate) Location: MAIN OR[facility] Surgeons: Chip Carr MD Estimated body mass index is 20.92 kg/m? as calculated from the following: Height as of 02/19/24: 170.2 cm (5' 7 ). Weight as of 02/19/24: 60.6 kg (133 lb 9.6 oz). 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 Tracheostomy tube not present Neck ROM: full ROM without neurological symptoms. Mouth opening: adequate. Short neck: no. Thick neck: no DENTAL Normal dental observations. II - ANESTHESIA PLAN ASA Score: 3 Anesthetic Plan: general Airway type: ETT NPO Status: adequate Beta Amber Monitoring Plan Monitoring plan: standard ASA and invasive hemodynamic monitoring. Post Procedure Analgesic Plan Postoperative analgesic plan: multimodal analgesia. Informed Consent Anesthetic risks, benefits, alternatives, personnel and consent discussed: yes. Patient / Responsible Alliance Party agrees to proceed: yes Patient / Surrogate agrees to blood products: Yes Significant changes in the patient condition since the History and Physical, not otherwise documented in primary service progress note: no. Potential Anesthesia issues that may suggest increased risk of complications or contraindication to planned procedure: none. Vitals Value Taken Time BP 170/78 03/02/24 0546 Pulse 74 03/02/24 0546 Resp 16 03/02/24 0546 Temp 36.8 ?C (98.2 ?F) 03/02/24 0546 SpO2 100 % 03/02/24 0546 Facility-Administered Medications as of 03/02/2024 Medication Dose Route Frequency - heparin 5,000 Units injection 5,000 Units SUBCUTANEOUS ONCE - lidocaine (PF) 10 mg/mL (1 %) 1-2 mg injection (XYLOCAINE) 0.1-0.2 mL INTRADERMAL PRN Or - lidocaine 1% 0.25 mL subcutaneous j-tip syringe (XYLOCAINE) 0.25 mL SUBCUTANEOUS PRN - lactated ringers iv infusion 5-30 mL/hr INTRAVENOUS CONTINUOUS - NaCl 0.9% iv flush bag 20 mL INTRAVENOUS PRN - ceFAZolin iv piggyback 2 g in D5W (iso-osmotic) 100 mL (ANCEF) 2 g INTRAVENOUS Pre-Op Once Outpatient Medications as of 03/02/2024 Medication Sig - calcium carbonate/vitamin D3 (CALTRATE 600 + D ORAL) Take 600 mg by mouth two times a day. - atorvastatin (LIPITOR) 20 mg tablet Take 20 mg by mouth every evening. - fluticasone (FLONASE) 50 mcg/actuation nasal spray Use 1 Alsen in the nose as needed for cold/allergy symptoms. Take in allergy season - montelukast (SINGULAIR) 10 mg tablet Take 10 mg by mouth once daily. - HYDROcodone-acetaminophen (NORCO) 5-325 mg per tablet Take 1 tablet by mouth every 6 hours as needed for pain. - ibuprofen (MOTRIN) 200 mg tablet Take 400 mg by mouth two times a day. 400-800 mg 3-4 PRN - gabapentin (NEURONTIN) 300 mg capsule Take 300 mg by mouth as needed for pain. I have interviewed and examined the patient. I have reviewed the medical record and/or the pre-anesthesia evaluation, pertinent labs, and test results. This contains updated information obtained within 48 hours of Surgery/Procedure. SIGNATURE: Azalea Serra MD PATIENT NAME: Zaynab Zaidi DATE: March 02, 2024 TIME: 7:21 AM CSN: [id number] Normal [facility] BRIEF OP NOTon 03-02-2024 BRIEF OP NOT HNO ID: [id number] Author: CRUZ CHAPMAN MD Service: Urology Author Type: Physician Type: Brief Op Note Filed: 03/02/2024 14:03 Note Text: BRIEF OPERATIVE / PROCEDURE NOTE LOG ID: [id number] SURGERY/PROCEDURE DATE: 03/02/2024 INCISION/PROCEDURE START TIME: 8:48 AM INCISION CLOSE/PROCEDURE END TIME: 1410 SURGEON(S)/PROCEDURALIST(S) AND RANGE SCIENTIST(S): Surgeon(s) and Role: * Chip Carr MD - Primary * Demario Saenz MD - Resident - Assisting * Cruz Chapman MD - Fellow * Paramjit Danielle MD No Additional Staff SURGERY/PROCEDURE(S): Single Port Robot Assisted Left Kidney Auto transplantation ANESTHESIA: General FINDINGS: Multiple collateral vessels given nutcracker and gonadal vein obstruction Single artery, single vein ESTIMATED BLOOD LOSS: 50 mls SPECIMENS: None COMPLICATIONS: None CLOSURE TECHNIQUE: Primary PRE-OP/PRE-PROCEDURE DIAGNOSIS: 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 POST-OP/POST-PROCEDURE DIAGNOSIS: Same as Preop SIGNATURE: Cruz Chapman MD PATIENT NAME: Zaynab Zaidi DATE: March 02, 2024 TIME: 2:01 PM Normal [facility] CBC W Auto Differential pane l (Bld)on 03-02-2024 Basophils (Bld) [#/Vol] 10*3/uL Normal <0.11 [facility] Comment on above: Order Comment: Specimen Type: BLOOD SPEC IMENOrdering Facility: [facility] Address: [address] [place] [address] Performed By: #### 5 7021-8 ####[facility] LABCLIA [id number] [place] [address] [place] Basophils/100 WBC (Bld) 0.2 % Normal [facility] Comment on above: Order Comment: Specimen Type: BLOOD SPEC IMENOrdering Facility: [facility] Address: [address] [place] [address] Performed By: #### 5 7021-8 ####[facility] LABCLIA [id number] [place] [address] [place] Differential cell count method Nom (Bld) Auto Normal [facility] Comment on above: Order Comment: Specimen Type: BLOOD SPEC IMENOrdering Facility: [facility] Address: [address] [place] [address] Performed By: #### 5 7021-8 ####[facility] LABCLIA [id number] [place] [address] [place] Eosinophils (Bld) [#/Vol] 10*3/uL Normal <0.46 [facility] Comment on above: Order Comment: Specimen Type: BLOOD SPEC IMENOrdering Facility: [facility] Address: [address] [place] [address] Performed By: #### 5 7021-8 ####[facility] LABCLIA [id number] [place] [address] [place] Eosinophils/100 WBC (Bld) 0.1 % Normal [facility] Comment on above: Order Comment: Specimen Type: BLOOD SPEC IMENOrdering Facility: [facility] Address: [address] [place] [address] Performed By: #### 5 7021-8 ####[facility] LABCLIA [id number] [place] [address] [place] Erythrocyte distribution width (RBC) [Ratio] 13.9 % Normal 11.5-15.0 [facility] Comment on above: Order Comment: Specimen Type: BLOOD SPEC IMENOrdering Facility: [facility] Address: [address] [place] [address] Performed By: #### 5 7021-8 ####[facility] LABCLIA [id number] [place] [address] [place] Hematocrit (Bld) [Volume fraction] 38.1 % Normal 36.0-46.0 [facility] Comment on above: Order Comment: Specimen Type: BLOOD SPEC IMENOrdering Facility: [facility] Address: [address] [place] [address] Performed By: #### 5 7021-8 ####[facility] LABIA [id number] [place] [address] [place] Hemoglobin (Bld) [Mass/Vol] 12.6 g/dL Normal 11.5-15.5 [facility] Comment on above: Order Comment: Specimen Type: BLOOD SPEC IMENOrdering Facility: [facility] Address: [address] [place] [address] Performed By: #### 5 7021-8 ####[facility] LABIA [id number] [place] [address] [place] Immature granulocytes (Bld) [#/Vol] 0.08 10*3/uL Normal <0.10 [facility] Comment on above: Order Comment: Specimen Type: BLOOD SPEC IMENOrdering Facility: [facility] Address: [address] [place] [address] Performed By: #### 5 7021-8 ####[facility] LABIA [id number] [place] [address] [place] Immature granulocytes/100 WBC (Bld) 0.7 % Normal [facility] Comment on above: Order Comment: Specimen Type: BLOOD SPEC IMENOrdering Facility: [facility] Address: [address] [place] [address] Performed By: #### 5 7021-8 ####[facility] LABIA [id number] [place] [address] [place] Lymphocytes (Bld) [#/Vol] 0.56 10*3/uL Low 1.00-4.00 [facility] Comment on above: Order Comment: Specimen Type: BLOOD SPEC IMENOrdering Facility: [facility] Address: [address] [place] [address] Performed By: #### 5 7021-8 ####[facility] LABIA [id number] [place] [address] [place] Lymphocytes/100 WBC (Bld) 4.6 % Normal [facility] Comment on above: Order Comment: Specimen Type: BLOOD SPEC IMENOrdering Facility: [facility] Address: [address] [place] [address] Performed By: #### 5 7021-8 ####[facility] [id number] [place] [address] [place] MCH (RBC) [Entitic mass] 29.2 pg Normal 26.0-34.0 [facility] Comment on above: Order Comment: Specimen Type: BLOOD SPEC IMENOrdering Facility: [facility] Address: [address] [place] [address] Performed By: #### 5 7021-8 ####[facility] [id number] [place] [address] [place] MCHC (RBC) [Mass/Vol] 33.1 g/dL Normal 30.5-36.0 [facility] Comment on above: Order Comment: Specimen Type: BLOOD SPEC IMENOrdering Facility: [facility] Address: [address] [place] [address] Performed By: #### 5 7021-8 ####[facility] LABIA [id number] [place] [address] [place] MCV (RBC) [Entitic vol] 88.2 fL Normal 80.0-100.0 [facility] Comment on above: Order Comment: Specimen Type: BLOOD SPEC IMENOrdering Facility: [facility] Address: [address] [place] [address] Performed By: #### 5 7021-8 ####[facility] LABCLIA [id number] [place] [address] [place] Monocytes (Bld) [#/Vol] 0.53 10*3/uL Normal <0.87 [facility] Comment on above: Order Comment: Specimen Type: BLOOD SPEC IMENOrdering Facility: [facility] Address: [address] [place] [address] Performed By: #### 5 7021-8 ####[facility] LABCLIA [id number] [place] [address] [place] Monocytes/100 WBC (Bld) 4.3 % Normal [facility] Comment on above: Order Comment: Specimen Type: BLOOD SPEC IMENOrdering Facility: [facility] Address: [address] [place] [address] Performed By: #### 5 7021-8 ####[facility] LABCLIA [id number] [place] [address] [place] Neutrophils (Bld) [#/Vol] 11.08 10*3/uL High 1.45-7.50 [facility] Comment on above: Order Comment: Specimen Type: BLOOD SPEC IMENOrdering Facility: [facility] Address: [address] [place] [address] Performed By: #### 5 7021-8 ####[facility] LABCLIA [id number] [place] [address] [place] Neutrophils/100 WBC (Bld) 90.1 % Normal [facility] Comment on above: Order Comment: Specimen Type: BLOOD SPEC IMENOrdering Facility: [facility] Address: [address] [place] [address] Performed By: #### 5 7021-8 ####[facility] LABCLIA [id number] [place] [address] [place] Nucleated RBC (Bld) [#/Vol] 10*3/uL Normal <0.01 [facility] Comment on above: Order Comment: Specimen Type: BLOOD SPEC IMENOrdering Facility: [facility] Address: [address] [place] [address] Performed By: #### 5 7021-8 ####[facility] LABIA [id number] [place] [address] [place] Nucleated RBC/100 WBC (Bld) [Ratio] 0.0 /100 WBC Normal [facility] Comment on above: Order Comment: Specimen Type: BLOOD SPEC IMENOrdering Facility: [facility] Address: [address] [place] [address] Performed By: #### 5 7021-8 ####[facility] LABIA [id number] [place] [address] [place] Platelet mean volume (Bld) [Entitic vol] 11.7 fL Normal 9.0-12.7 [facility] Comment on above: Order Comment: Specimen Type: BLOOD SPEC IMENOrdering Facility: [facility] Address: [address] [place] [address] Performed By: #### 5 7021-8 ####[facility] LABIA [id number] [place] [address] [place] Platelets (Bld) [#/Vol] 210 10*3/uL Normal 150-400 [facility] Comment on above: Order Comment: Specimen Type: BLOOD SPEC IMENOrdering Facility: [facility] Address: [address] [place] [address] Performed By: #### 5 7021-8 ####[facility] LABIA [id number] [place] [address] [place] RBC (Bld) [#/Vol] 4.32 10*6/uL Normal 3.90-5.20 [facility] Comment on above: Order Comment: Specimen Type: BLOOD SPEC IMENOrdering Facility: [facility] Address: [address] [place] [address] Performed By: #### 5 7021-8 ####[facility] LABCLIA [id number] [place] [address] [place] WBC (Bld) [#/Vol] 12.28 10*3/uL High 3.70-11.00 [facility] Comment on above: Order Comment: Specimen Type: BLOOD SPEC IMENOrdering Facility: [facility] Address: [address] [place] [address] Performed By: #### 5 7021-8 ####[facility] LABCLIA [id number] [place] [address] [place] Comprehensive metabolic 2000 panelon 03-02-2024 Albumin [Mass/Vol] 3.7 g/dL Low 3.9-4.9 [facility] Comment on above: Order Comment: Specimen Type: BLOOD SPEC IMENOrdering Facility: [facility] Address: [address] [place] [address] Performed By: #### 2 4323-8 ####[facility] LABIA [id number] [place] [address] [place] ALP [Catalytic activity/Vol] 55 U/L Normal 34-123 [facility] Comment on above: Order Comment: Specimen Type: BLOOD SPEC IMENOrdering Facility: [facility] Address: [address] [place] [address] Performed By: #### 2 4323-8 ####[facility] LABCLIA [id number] [place] [address] [place] ALT [Catalytic activity/Vol] 13 U/L Normal 7-38 [facility] Comment on above: Order Comment: Specimen Type: BLOOD SPEC IMENOrdering Facility: [facility] Address: [address] [place] [address] Performed By: #### 2 4323-8 ####[facility] LABCLIA [id number] [place] [id number] [place] Anion gap [Moles/Vol] 10 mmol/L Normal 9-18 [facility] Comment on above: Order Comment: Specimen Type: BLOOD SPEC IMENOrdering Facility: [facility] Address: [address] [place] [address] Performed By: #### 2 4323-8 ####[facility] LABCLIA [id number] [place] [address] [place] AST [Catalytic activity/Vol] 20 U/L Normal 13-35 [facility] Comment on above: Order Comment: Specimen Type: BLOOD SPEC IMENOrdering Facility: [facility] Address: [address] [place] [address] Performed By: #### 2 4323-8 ####[facility] LABCLIA [id number] [place] [address] [place] Bilirubin [Mass/Vol] 0.4 mg/dL Normal 0.2-1.3 [facility] Comment on above: Order Comment: Specimen Type: BLOOD SPEC IMENOrdering Facility: [facility] Address: [address] [place] [address] Performed By: #### 2 4323-8 ####[facility] LABCLIA [id number] [place] [address] [place] Calcium [Mass/Vol] 8.6 mg/dL Normal 8.5-10.2 [facility] Comment on above: Order Comment: Specimen Type: BLOOD SPEC IMENOrdering Facility: [facility] Address: [address] [place] [address] Performed By: #### 2 4323-8 ####[facility] LABCLIA [id number] [place] [address] [place] Chloride [Moles/Vol] 107 mmol/L High 97-105 [facility] Comment on above: Order Comment: Specimen Type: BLOOD SPEC IMENOrdering Facility: [facility] Address: [address] [place], [place] [address] Performed By: #### 2 4323-8 ####[facility] LABCLIA [id number] [place] [address] [place] CO2 [Moles/Vol] 24 mmol/L Normal 22-30 [facility] Comment on above: Order Comment: Specimen Type: BLOOD SPEC IMENOrdering Facility: [facility] Address: [address] [place] [address] Performed By: #### 2 4323-8 ####[facility] LABCLIA [id number] [place] [address] [place] Creatinine [Mass/Vol] 0.86 mg/dL Normal 0.58-0.96 [facility] Comment on above: Order Comment: Specimen Type: BLOOD SPEC IMENOrdering Facility: [facility] Address: [address] [place] [address] Performed By: #### 2 4323-8 ####[facility] LABIA [id number] [place] [address] [place] Creatinine and Glomerular filtration rate.predicted panel (S/P/Bld) 75 mL/min/1.73m??? Normal >=60 [facility] Comment on above: Order Comment: Specimen Type: BLOOD SPEC IMENOrdering Facility: [facility] Address: [address] [place] [address] Result Comment: Lani mated Glomerular Filtration Rate (eGFR) is calculated using the 2020 CKD-EPI creatinine equation. This equation utilizes serum creatinine, sex, and age as parameters. The creatinine assay has traceable calibration to isotope dilution-mass spectrometry. Refer to KDIGO guidelines for clinical interpretation. In patients with unstable renal function, e.g. those with acute kidney injury, the eGFR may not accurately reflect actual GFR. Performed By: #### 2 4323-8 ####[facility] LABCLIA [id number] [place] [address] [place] Glucose [Mass/Vol] 192 mg/dL High 74-99 [facility] Comment on above: Order Comment: Specimen Type: BLOOD SPEC IMENOrdering Facility: [facility] Address: [address] [place] [address] Result Comment: The [place] Diabetes Association (ADA) provides guidance for cutoff values for fasting glucose and random glucose. The ADA defines fasting as no caloric intake for at least 8 hours. Fasting plasma glucose results between 100 to 125 mg/dL indicate increased risk for diabetes (prediabetes). Fasting plasma glucose results greater than or equal to 126 mg/dL meet the criteria for diagnosis of diabetes. In the absence of unequivocal hyperglycemia, results should be confirmed by repeat testing. In a patient with classic symptoms of hyperglycemia or hyperglycemic crisis, random plasma glucose results greater than or equal to 200 mg/dL meet the criteria for diagnosis of diabetes. Reference: Standards of Medical Care in Diabetes 2016, [place] [employer]. Diabetes Care. 2016.39(Suppl 1). Performed By: #### 2 4323-8 ####[facility] LABCLIA [id number] [place] [address] [place] Potassium [Moles/Vol] 4.5 mmol/L Normal 3.7-5.1 [facility] Comment on above: Order Comment: Specimen Type: BLOOD SPEC IMENOrdering Facility: [facility] Address: [address] [place] [address] Performed By: #### 2 4323-8 ####[facility] LABCLIA [id number] [place] [address] [place] Protein [Mass/Vol] 5.9 g/dL Low 6.3-8.0 [facility] Comment on above: Order Comment: Specimen Type: BLOOD SPEC IMENOrdering Facility: [facility] Address: [address] [place] [address] Performed By: #### 2 4323-8 ####[facility] LABCLIA [id number] [place] [address] [place] Sodium [Moles/Vol] 141 mmol/L Normal 136-144 [facility] Comment on above: Order Comment: Specimen Type: BLOOD SPEC IMENOrdering Facility: [facility] Address: [address] [place] [address] Performed By: #### 2 4323-8 ####[facility] LABCLIA [id number] [address] [place] Urea nitrogen [Mass/Vol] 13 mg/dL Normal 7-21 [facility] Comment on above: Order Comment: Specimen Type: BLOOD SPEC IMENOrdering Facility: [facility] Address: [address] [place] [address] Performed By: #### 2 4323-8 ####[facility] LABIA [id number] [address] [place] OPERATIVE NOon 03-02-2024 OPERATIVE NO HNO ID: [id number] Author: CHIP CARR MD Service: Urology Author Type: Physician Type: Operative Report Filed: 03/10/2024 16:26 Note Text: Attestation signed by Chip Carr MD at 03/10/2024 4:26 PM Agree with the details as outlined be the resident/ fellow Chip Carr MD UROLOGY OPERATIVE REPORT LOG ID: [id number] Surgery/Procedure Date: 03/02/2024 Incision/Procedure Start Time: 8:48 AM Incision Close/Procedure End Time: 1410 Surgeon(s)/Proceduralist(s) and Fitness And Wellness Instructor(s): Surgeon(s) and Role: * Chip Carr MD - Primary * Demario Saenz MD - Resident - Assisting * Cruz Chapman MD - Fellow * Paramjit Danielle MD No Additional Staff SURGERY/PROCEDURE(S): Single Port Transperitoneal Robotic Left Kidney Autotransplantation and Ureteral Stent Placement ANESTHESIA: General PRE-OP/PRE-PROCEDURE DIAGNOSIS: 1) Left UPJ obstruction 2) Left flank pain POST-OP/POST-PROCEDURE DIAGNOSIS: Same as Preop ESTIMATED BLOOD LOSS: 200 mls SPECIMENS: Left ureter IMPLANTABLE DEVICES: 4.7 cymro x 14cm JJ left stent DRAINS: 1) LLQ RAMON drain 2) 18 cymro kirk catheter COMPLICATIONS: None Findings: 1) 1 artery, 1 vein with and Multiple collateral vessels given nutcracker with left renal vein and gonadal vein obstruction 2) watertight anastomosis 3) excellent hemostasis throughout case 4) Warm Ischemia time 4 min 5) Cold Ischemia time 90 min Operative Indications: Zaynab Zaidi is a 68 year old female with 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 Procedure Narrative: A time-out was performed wherein the patient and procedure were identified in the presence of the patient and operative team. After placement of lines and monitors, general anesthesia was induced. Sequential compressive devices were placed on the bilateral lower extremities. The patient was positioned in a modified lateral position, with the pelvis in a slightly more open position compared to the shoulders. The left arm remained at the patient's side and the right arm was extended. The patient was secured to the operating table and all pressure points were padded. The patient was prepped and draped in the usual sterile fashion. A Kirk catheter was inserted prior to draping and placed to gravity drainage. Back Benching of Left Kidney The kidney was transferred on ice after Dr. Danielle finished the nephrectomy portion. The kidney was flushed with approximately 1 liter of Euro-Rutledge solution until effluent was clear. The renal vein was divested of remaining adventitia up the the division of segmental veins. The artery was dissected free in a similar manner. The kidney was then defatted with preservation of elzbieta-ureteral tissue. Hilar fat was ligated with silk ties before division for control of small blood vessels. The renal vein and artery were then tested for missed branches with preservation solution and no leaks were seen. The ureteral stent was placed into the kidney and the ureter was spatulated. A 3-0 chromic suture was placed as a pexy stitch into the lateral renal parenchyma. The kidney was then wrapped in a blue glove for ease of placement into the abdomen in cold solution. While the kidney was being prepared, Dr. Danielle prepared the left external iliac vein and artery by removing all surrounding lymphatic tissue. For details, Please see Dr Danielle's operative report. Circumferential control was obtained with vessel loop and Weck-clips on both vein and artery. Left Autotransplant The kidney was re-introduced into the abdomen and the robot re-docked. The kidney was positioned medially to the vessels with the hilum facing the external iliacs such that the renal pelvis was anterior and renal vein posterior. Bulldog clamps were then placed on the external iliac vein and a venotomy made sharply and flushed with heparinized saline. The renal vein was then anastomosed in a running manner with Gortex suture. A bulldog was placed on the renal vein and flow restored to the external iliac vein. No hemorrhage was seen. Attention was then turned to the artery. Bulldogs were placed distally and proximally to the desired anastomotic location and an arteriotomy was made with robotic scissors. The external iliac artery was then flushed with heparinized saline and the anastomosis completed in running fashion with 6-0 Gortex suture. A bulldog was placed on the renal artery and the distal bulldog clamp was then released followed by the proximal clamp. The remaining clamps on the renal hilum were removed and the kidney perfused. No areas of hemorrhage were seen from the kidney and the e (more content not included)... Normal [facility] OPERATIVE NO HNO ID: [id number] Author: PARAMJIT DANIELLE MD Service: Urology Author Type: Physician Type: Operative Report Filed: 03/04/2024 08:31 Note Text: UROLOGY OPERATIVE REPORT LOG ID: [id number] Surgery/Procedure Date: 03/02/2024 Incision/Procedure Start Time: 8:48 AM Incision Close/Procedure End Time: 1410 Surgeon(s)/Proceduralist(s) and Fitness And Wellness Instructor(s): Surgeon(s) and Role: * Eltemamy, Mohamed, MD - Primary * Demario Saenz MD - Resident - Assisting * Cruz Chapman MD - Fellow * Paramjit Danielle MD No Additional Staff SURGERY/PROCEDURE(S): Single Port Transperitoneal Robotic Left Kidney Autotransplantation and Ureteral Stent Placement ANESTHESIA: General PRE-OP/PRE-PROCEDURE DIAGNOSIS: 1) Left UPJ obstruction 2) Left flank pain POST-OP/POST-PROCEDURE DIAGNOSIS: Same as Preop ESTIMATED BLOOD LOSS: 50 mls SPECIMENS: Left ureter IMPLANTABLE DEVICES: 4.7 cymro x 14cm JJ left stent DRAINS: 1) 18 cymro kirk catheter COMPLICATIONS: None Findings: 1) 1 artery, 1 vein and Multiple collateral vessels given nutcracker with left renal vein and gonadal vein obstruction 2) watertight anastomosis 3) excellent hemostasis throughout case 4) Warm Ischemia time 4 min 5) Cold Ischemia time 90 min Operative Indications: Zaynab Zaidi is a 68 year old female with 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 Procedure Narrative: A time-out was performed wherein the patient and procedure were identified in the presence of the patient and operative team. After placement of lines and monitors, general anesthesia was induced. Sequential compressive devices were placed on the bilateral lower extremities. The patient was positioned in a modified lateral position, with the pelvis in a slightly more open position compared to the shoulders. The left arm remained at the patient's side and the right arm was extended. The patient was secured to the operating table and all pressure points were padded. The patient was prepped and draped in the usual sterile fashion. A Kirk catheter was inserted prior to draping and placed to gravity drainage. Left Nephrectomy A 5cm skin incision was made sharply in midline with the umbilicus as the midway point. The incision was then carried down with electrocautery to the anterior fascia. The fascia was then incised extending from incisional length 1 cm in either direction for a fascial opening of 7cm. The midline was identified and the rectus bellies were teased apart and the posterior fascia divided. Transversalis fascia and peritoneum were then incised and the peritoneal cavity entered sharply. The Oly ring was then placed and the gel port holding the single port robotic trocar, a 12mm air seal port, and a flexible suction was placed in an air docking fashion. A 12mm family law legal assistant port was placed under direct vision midway between the left ASIS and the umbilicus. The single port robot was then docked. The descending colon was mobilized medially along the white line of Toldt. Dissection continued reflecting the colon and pancreas from the medial surface of the kidney. Renal attachments to the spleen were released and the upper pole mobilized. The gonadal vein was identified and dissected to the entry of the left renal vein. The lumbar vein was dissected from the renal vein. The lumbar vein was clipped and transected. The anterior surface of the renal vein was cleared of investing tissues. The adrenal vein was dissected and then controlled with clips and cautery. A single renal vein and artery were identified and dissected free of all surrounding tissue to their respective origins. The lateral border of the kidney was then released from the abdominal sidewall. The ureter was identified at the lower pole and was surrounded by thick, fibrotic tissue. This tissue was freed. The ureter was clipped and transected distally. The gonadal vein was taken with stapler distally at this point given enlarged secondary to obstruction with multiple secondary collaterals around . The remainder of the kidney was then mobilized in an adrenal - sparing manner with the adrenal gland dissected free of the upper pole. The renal artery was then controlled with a non-cutting 3-row Ta stapler and sharply divided. The renal vein was then divided with a second staple load. Remaining hilar fat was divided and upper pole attachments were released and hemostasis obtained in the nephrectomy bed. The kidney was placed in an endocatch bag, the robot undocked, and delivered through the wound protector and passed off the field on ice. It was benched by Dr. Carr, please see his operative report for details. While the kidney was getting prepared, we cirucmfrentially dissected out the left external iliac artery and vein. A vessel loop w (more content not included)... Normal [facility] CBC W Auto Differential pane l (Bld)on 02-19-2024 Basophils (Bld) [#/Vol] 0.04 10*3/uL Normal <0.11 [facility] Comment on above: Order Comment: Specimen Type: BLOOD SPEC IMENOrdering Facility: [facility] Address: [address] [place] [address] Performed By: #### 5 7021-8 ####[facility] LABCLIA [id number] [place] [address] [place] Basophils/100 WBC (Bld) 0.8 % Normal [facility] Comment on above: Order Comment: Specimen Type: BLOOD SPEC IMENOrdering Facility: [facility] Address: [address] [place] [address] Performed By: #### 5 7021-8 ####[facility] LABCLIA [id number] [place] [address] [place] Differential cell count method Nom (Bld) Auto Normal [facility] Comment on above: Order Comment: Specimen Type: BLOOD SPEC IMENOrdering Facility: [facility] Address: [address] [place] [address] Performed By: #### 5 7021-8 ####[facility] LABCLIA [id number] [place] [address] [place] Eosinophils (Bld) [#/Vol] 0.10 10*3/uL Normal <0.46 [facility] Comment on above: Order Comment: Specimen Type: BLOOD SPEC IMENOrdering Facility: [facility] Address: [address] [place] [address] Performed By: #### 5 7021-8 ####[facility] LABCLIA [id number] [place] [address] [place] Eosinophils/100 WBC (Bld) 1.9 % Normal [facility] Comment on above: Order Comment: Specimen Type: BLOOD SPEC IMENOrdering Facility: [facility] Address: [address] [place] [address] Performed By: #### 5 7021-8 ####[facility] LABCLIA [id number] [place] [address] [place] Erythrocyte distribution width (RBC) [Ratio] 13.6 % Normal 11.5-15.0 [facility] Comment on above: Order Comment: Specimen Type: BLOOD SPEC IMENOrdering Facility: [facility] Address: [address] [place] [address] Performed By: #### 5 7021-8 ####[facility] LABCLIA [id number] [place] [address] [place] Hematocrit (Bld) [Volume fraction] 42.7 % Normal 36.0-46.0 [facility] Comment on above: Order Comment: Specimen Type: BLOOD SPEC IMENOrdering Facility: [facility] Address: [address] [place] [address] Performed By: #### 5 7021-8 ####[facility] LABIA [id number] [place] [address] [place] Hemoglobin (Bld) [Mass/Vol] 13.9 g/dL Normal 11.5-15.5 [facility] Comment on above: Order Comment: Specimen Type: BLOOD SPEC IMENOrdering Facility: [facility] Address: [address] [place] [address] Performed By: #### 5 7021-8 ####[facility] LABIA [id number] [place] [address] [place] Immature granulocytes (Bld) [#/Vol] 10*3/uL Normal <0.10 [facility] Comment on above: Order Comment: Specimen Type: BLOOD SPEC IMENOrdering Facility: [facility] Address: [address] [place] [address] Performed By: #### 5 7021-8 ####[facility] LABIA [id number] [place] [address] [place] Immature granulocytes/100 WBC (Bld) 0.2 % Normal [facility] Comment on above: Order Comment: Specimen Type: BLOOD SPEC IMENOrdering Facility: [facility] Address: [address] [place] [address] Performed By: #### 5 7021-8 ####[facility] LABCLIA [id number] [place] [address] [place] Lymphocytes (Bld) [#/Vol] 1.51 10*3/uL Normal 1.00-4.00 [facility] Comment on above: Order Comment: Specimen Type: BLOOD SPEC IMENOrdering Facility: [facility] Address: [address] [place] [address] Performed By: #### 5 7021-8 ####[facility] LABCLIA [id number] [place] [address] [place] Lymphocytes/100 WBC (Bld) 29.3 % Normal [facility] Comment on above: Order Comment: Specimen Type: BLOOD SPEC IMENOrdering Facility: [facility] Address: [address] [place] [address] Performed By: #### 5 7021-8 ####[facility] LABIA [id number] [place] [address] [place] MCH (RBC) [Entitic mass] 29.3 pg Normal 26.0-34.0 [facility] Comment on above: Order Comment: Specimen Type: BLOOD SPEC IMENOrdering Facility: [facility] Address: [address] [place] [address] Performed By: #### 5 7021-8 ####[facility] LABCLIA [id number] [place] [address] [place] MCHC (RBC) [Mass/Vol] 32.6 g/dL Normal 30.5-36.0 [facility] Comment on above: Order Comment: Specimen Type: BLOOD SPEC IMENOrdering Facility: [facility] Address: [address] [place] [address] Performed By: #### 5 7021-8 ####[facility] LABIA [id number] [place] [address] [place] MCV (RBC) [Entitic vol] 89.9 fL Normal 80.0-100.0 [facility] Comment on above: Order Comment: Specimen Type: BLOOD SPEC IMENOrdering Facility: [facility] Address: [address] [place] [address] Performed By: #### 5 7021-8 ####[facility] LABCLIA [id number] [place] [address] [place] Monocytes (Bld) [#/Vol] 0.77 10*3/uL Normal <0.87 [facility] Comment on above: Order Comment: Specimen Type: BLOOD SPEC IMENOrdering Facility: [facility] Address: [address] [place] [address] Performed By: #### 5 7021-8 ####[facility] LABCLIA [id number] [place] [address] [place] Monocytes/100 WBC (Bld) 14.9 % Normal [facility] Comment on above: Order Comment: Specimen Type: BLOOD SPEC IMENOrdering Facility: [facility] Address: [address] [place] [address] Performed By: #### 5 7021-8 ####[facility] LABCLIA [id number] [place] [address] [place] Neutrophils (Bld) [#/Vol] 2.73 10*3/uL Normal 1.45-7.50 [facility] Comment on above: Order Comment: Specimen Type: BLOOD SPEC IMENOrdering Facility: [facility] Address: [address] [place] [address] Performed By: #### 5 7021-8 ####[facility] LABCLIA [id number] [place] [address] [place] Neutrophils/100 WBC (Bld) 52.9 % Normal [facility] Comment on above: Order Comment: Specimen Type: BLOOD SPEC IMENOrdering Facility: [facility] Address: [address] [place] [address] Performed By: #### 5 7021-8 ####[facility] LABIA [id number] [place] [address] [place] Nucleated RBC (Bld) [#/Vol] 10*3/uL Normal <0.01 [facility] Comment on above: Order Comment: Specimen Type: BLOOD SPEC IMENOrdering Facility: [facility] Address: [address] [place] [address] Performed By: #### 5 7021-8 ####[facility] LABIA [id number] [place] [address] [place] Nucleated RBC/100 WBC (Bld) [Ratio] 0.0 /100 WBC Normal [facility] Comment on above: Order Comment: Specimen Type: BLOOD SPEC IMENOrdering Facility: [facility] Address: [address] [place] [address] Performed By: #### 5 7021-8 ####[facility] LABIA [id number] [place] [address] [place] Platelet mean volume (Bld) [Entitic vol] 12.2 fL Normal 9.0-12.7 [facility] Comment on above: Order Comment: Specimen Type: BLOOD SPEC IMENOrdering Facility: [facility] Address: [address] [place] [address] Performed By: #### 5 7021-8 ####[facility] LABIA [id number] [place] [address] [place] Platelets (Bld) [#/Vol] 214 10*3/uL Normal 150-400 [facility] Comment on above: Order Comment: Specimen Type: BLOOD SPEC IMENOrdering Facility: [facility] Address: [address] [place] [address] Performed By: #### 5 7021-8 ####[facility] LABIA [id number] [place] [id number] [place] RBC (Bld) [#/Vol] 4.75 10*6/uL Normal 3.90-5.20 [facility] Comment on above: Order Comment: Specimen Type: BLOOD SPEC IMENOrdering Facility: [facility] Address: [address] [place] [address] Performed By: #### 5 7021-8 ####[facility] LABCLIA [id number] [place] [address] [place] WBC (Bld) [#/Vol] 5.16 10*3/uL Normal 3.70-11.00 [facility] Comment on above: Order Comment: Specimen Type: BLOOD SPEC IMENOrdering Facility: [facility] Address: [address] [place] [address] Performed By: #### 5 7021-8 ####[facility] LABCLIA [id number] [address] [place] CNOVon 02-19-2024 CNOV Office Visit (UROLMN ) ZAYNAB ZAIDI ([id number]) 1955 F Date Time Provider Department 02/19/24 3:45 PM CHIP CARR [place] During your visit today, we recorded the following information about you: Chip Carr MD 02/19/2024 4:50 PM Signed REASON FOR VISIT: Pre-op discussion HPI: 68 year old female who presents with a history of Coronary artery sclerosis, AAA, tension headaches, colon polyp, dysphagia, PVD, OP, female pelvic congestion syndrome, jugular vein stenosis. Scheduled for SP Autotransplant on 03/02/24 Here for a pre-operative discussion Surgical history: Cholecystectomy (1981) Seen by Dr. Deleon (12/22/23) Notes listed below: -left sided flank pain associated with hematuria. She started to notice the pain over the past year. She complains of pain located in the left flank, perineum, and pelvis that is worse after sexual intercourse. She states that her pain is improved with laying down or elevating her legs. She has undergone venogram, US duplex, and US pelvis with ovarian varices. 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 Scheduled for surgery with vascular on 01/21/24 LABS: Creatinine (06/24/23): 0.84 URINALYSIS: Negative on 12/22/23 IMAGIN04/25/2023 CT venogram -Dilated varicosities extending all the way from the level the left renal vein into the pelvis and although it is bilateral it is most notably within the left hemipelvis. 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 - Infrarenal AAA 3.4cm. Left lower extremity Duplex 04/25/23: - No evidence of deep or superficial vein thrombosis of the lower extremity. No evidence of deep or superficial venous reflux. Aortic Duplex 04/25/2023 - Aortic ectasia in the infrarenal aorta with the maximum diameter of 2.8 cm and evidence for atherosclerotic disease without significant stenosis in the aortoiliac arteries. Venogram June 18, 2023 -IVUS intravascular ultrasound the presence of left renal vein narrowing. - Manometry was not performed due to technical problems in the catholic priest. 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 No DVT Diagnostic venography 09/09/2023 -large diameter left ovarian vein with avid reflux from the level of the left renal vein into a large group of pelvic varicosities. ALLERGIES: ALLERGIES Allergen Reactions Clindamycin Rash, Shortness of Breath Penicillins Hives, Rash, Intolerance Doxycycline Rash Codeine GI Upset Venom-Honey Bee Rash MEDICATIONS: Current Outpatient Medications Medication Sig calcium carbonate/vitamin D3 (CALTRATE 600 + D ORAL) Take 600 mg by mouth once daily. atorvastatin (LIPITOR) 20 mg tablet Take 20 mg by mouth every evening. fluticasone (FLONASE) 50 mcg/actuation nasal spray Use 1 Alsen in the nose as needed for cold/allergy symptoms. Take in allergy season gabapentin (NEURONTIN) 300 mg capsule Take 300 mg by mouth as needed for pain. montelukast (SINGULAIR) 10 mg tablet Take 10 mg by mouth once daily. HYDROcodone-acetaminophen (NORCO) 5-325 mg per tablet Take 1 tablet by mouth every 6 hours as needed for pain. ibuprofen (MOTRIN) 200 mg tablet Take 400 mg by mouth two times a day. No current facility-administered medications for this visit. HISTORIES 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 PAST SURGICAL HISTORY Procedure Laterality Date REMOVAL GALLBLADDER N/A PHYSICAL EXAMINATION General appearance: no acute distress Genitourinary: no acute distress, left sided flank discomfort PROBLEMS: Patient is optimally prepared for surgery Chip Carr MD Allergies As of Date: 02/19/2024 Noted Allergy Reaction CLINDAMYCIN 06/30/2018 2 - Rash 12 - Shortness of Breath DOXYCYCLINE 12/18/2023 2 - Rash CODEINE 06/30/2018 8 - GI Upset VENOM-HONEY BEE 12/05/2019 2 - Rash Date Reviewed: 02/19/2024 Reviewed by: Arleen Velasco OCCA - Fully Assessed Reason for Visit: Pre-Op Exam [87] Primary Visit Diagnosis: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] Prescriptions as of 02/19/2024 - calcium carbonate/vitamin D3 (CALTRATE 600 + D ORAL) Take 600 mg by mouth two times a day. - atorvastatin (LIPITOR) 20 mg tablet Take 20 mg by mouth every evening. - fluticasone (FLONASE) 50 mcg/actuation nasal spray Use 1 Alsen in the nose as needed for cold/allergy symptoms. Take in allergy season - gabapentin (NEURONTIN) 300 mg capsule Take 300 mg by mouth as needed for pain. - montelukast (SINGULAIR) 10 mg tablet Take 10 mg by mouth once daily. - HYDROcodone-acetaminophen (NORCO) 5-325 mg per tablet Take 1 tablet by mouth every 6 hours as needed for pain. - ibuprofen (MOTRIN) 200 mg (more content not included)... Normal [facility] CONFIRM BLOOD TYPEon 024 ABO O Normal [facility] Comment on above: Order Comment: Specimen Type: BLOOD SPEC IMENOrdering Facility: [facility] Address: [address] [place] [address] Performed By: #### C ONABO ####[facility] BLOOD BANKIA [id number] [place] [address] [place] Rh Nom (Bld) Positive Normal [facility] Comment on above: Order Comment: Specimen Type: BLOOD SPEC IMENOrdering Facility: [facility] Address: [address] [place] [address] Performed By: #### C ONABO ####[facility] BLOOD BANKIA [id number] [place] [address] [place] Comprehensive metabolic 2000 panelon 02-19-2024 Albumin [Mass/Vol] 4.3 g/dL Normal 3.9-4.9 [facility] Comment on above: Order Comment: Specimen Type: BLOOD SPEC IMENOrdering Facility: [facility] Address: [address] [place] [address] Performed By: #### 2 4323-8 ####[facility] LABCLIA [id number] [place] [address] [place] ALP [Catalytic activity/Vol] 71 U/L Normal 34-123 [facility] Comment on above: Order Comment: Specimen Type: BLOOD SPEC IMENOrdering Facility: [facility] Address: [address] [place] [address] Performed By: #### 2 4323-8 ####[facility] LABCLIA [id number] [place] [address] [place] ALT [Catalytic activity/Vol] 12 U/L Normal 7-38 [facility] Comment on above: Order Comment: Specimen Type: BLOOD SPEC IMENOrdering Facility: [facility] Address: [address] [place] [address] Performed By: #### 2 4323-8 ####[facility] LABCLIA [id number] [place] [address] [place] Anion gap [Moles/Vol] 12 mmol/L Normal 9-18 [facility] Comment on above: Order Comment: Specimen Type: BLOOD SPEC IMENOrdering Facility: [facility] Address: [address] [place] [address] Performed By: #### 2 4323-8 ####[facility] LABCLIA [id number] [place] [address] [place] AST [Catalytic activity/Vol] 20 U/L Normal 13-35 [facility] Comment on above: Order Comment: Specimen Type: BLOOD SPEC IMENOrdering Facility: [facility] Address: [address] [place] [address] Performed By: #### 2 4323-8 ####[facility] LABIA [id number] [place] [address] [place] Bilirubin [Mass/Vol] 0.7 mg/dL Normal 0.2-1.3 [facility] Comment on above: Order Comment: Specimen Type: BLOOD SPEC IMENOrdering Facility: [facility] Address: [address] [place] [address] Performed By: #### 2 4323-8 ####[facility] LABIA [id number] [place] [address] [place] Calcium [Mass/Vol] 10.1 mg/dL Normal 8.5-10.2 [facility] Comment on above: Order Comment: Specimen Type: BLOOD SPEC IMENOrdering Facility: [facility] Address: [address] [place] [address] Performed By: #### 2 4323-8 ####[facility] LABIA [id number] [place] [address] [place] Chloride [Moles/Vol] 102 mmol/L Normal 97-105 [facility] Comment on above: Order Comment: Specimen Type: BLOOD SPEC IMENOrdering Facility: [facility] Address: [address] [place] [address] Performed By: #### 2 4323-8 ####[facility] LABCLIA [id number] [place] [address] [place] CO2 [Moles/Vol] 28 mmol/L Normal 22-30 [facility] Comment on above: Order Comment: Specimen Type: BLOOD SPEC IMENOrdering Facility: [facility] Address: [address] [place] [address] Performed By: #### 2 4323-8 ####[facility] LABIA [id number] [place] [address] [place] Creatinine [Mass/Vol] 0.81 mg/dL Normal 0.58-0.96 [facility] Comment on above: Order Comment: Specimen Type: BLOOD SPEC IMENOrdering Facility: [facility] Address: [address] [place] [address] Performed By: #### 2 4323-8 ####[facility] [id number] [place] [address] [place] Creatinine and Glomerular filtration rate.predicted panel (S/P/Bld) 80 mL/min/1.73m??? Normal >=60 [facility] Comment on above: Order Comment: Specimen Type: BLOOD SPEC IMENOrdering Facility: [facility] Address: [address] [place] [address] Result Comment: Lani mated Glomerular Filtration Rate (eGFR) is calculated using the 2020 CKD-EPI creatinine equation. This equation utilizes serum creatinine, sex, and age as parameters. The creatinine assay has traceable calibration to isotope dilution-mass spectrometry. Refer to KDIGO guidelines for clinical interpretation. In patients with unstable renal function, e.g. those with acute kidney injury, the eGFR may not accurately reflect actual GFR. Performed By: #### 2 4323-8 ####[facility] LABIA [id number] [place] [address] [place] Glucose [Mass/Vol] 73 mg/dL Low 74-99 [facility] Comment on above: Order Comment: Specimen Type: BLOOD SPEC IMENOrdering Facility: [facility] Address: [address] [place] [address] Result Comment: The [place] Diabetes Association (ADA) provides guidance for cutoff values for fasting glucose and random glucose. The ADA defines fasting as no caloric intake for at least 8 hours. Fasting plasma glucose results between 100 to 125 mg/dL indicate increased risk for diabetes (prediabetes). Fasting plasma glucose results greater than or equal to 126 mg/dL meet the criteria for diagnosis of diabetes. In the absence of unequivocal hyperglycemia, results should be confirmed by repeat testing. In a patient with classic symptoms of hyperglycemia or hyperglycemic crisis, random plasma glucose results greater than or equal to 200 mg/dL meet the criteria for diagnosis of diabetes. Reference: Standards of Medical Care in Diabetes 2016, [place] [employer]. Diabetes Care. 2016.39(Suppl 1). Performed By: #### 2 4323-8 ####[facility] LABCLIA [id number] [place] [address] [place] Potassium [Moles/Vol] 4.5 mmol/L Normal 3.7-5.1 [facility] Comment on above: Order Comment: Specimen Type: BLOOD SPEC IMENOrdering Facility: [facility] Address: [address] [place] [address] Performed By: #### 2 4323-8 ####[facility] LABIA [id number] [place] [address] [place] Protein [Mass/Vol] 7.0 g/dL Normal 6.3-8.0 [facility] Comment on above: Order Comment: Specimen Type: BLOOD SPEC IMENOrdering Facility: [facility] Address: [address] [place] [address] Performed By: #### 2 4323-8 ####[facility] LABCLIA [id number] [place] [address] [place] Sodium [Moles/Vol] 142 mmol/L Normal 136-144 [facility] Comment on above: Order Comment: Specimen Type: BLOOD SPEC IMENOrdering Facility: [facility] Address: [address] [place] [address] Performed By: #### 2 4323-8 ####[facility] LABCLIA [id number] [place] [address] [place] Urea nitrogen [Mass/Vol] 22 mg/dL High 7-21 [facility] Comment on above: Order Comment: Specimen Type: BLOOD SPEC IMENOrdering Facility: [facility] Address: [address] [place] [address] Performed By: #### 2 4323-8 ####[facility] LABCLIA [id number] [place] [address] [place] ECG COMPLETEon 02-19-2024 ECG COMPLETE Ventricular Rate : 5 4 BPM Atrial Rate : 54 BPM P-R Interval : 130 ms QRS Duration : 90 ms Q-T Interval : 462 ms QTC Calculation(Bazett) : 438 ms Calculated P Aurora : 21 degrees Calculated R Aurora : 68 degrees Calculated T Aurora : 69 degrees SINUS BRADYCARDIA OTHERWISE NORMAL ECG Confirmed by FEROZ DELANEY MD ([id number]) on 02/22/2024 4:29:03 PM NAME : ZAYNAB ZAIDI PID : [id number] : 1955 Gender : Female Race : ORD : [id number] Procedure Date : Feb 19 2024 13:54:22 Edit Date : Feb 22 2024 16:29:06 Diagnosis: SINUS BRADYCARDIA OTHERWISE NORMAL ECG Confirmed by FEROZ DELANEY MD ([id number]) on 02/22/2024 4:29:03 PM Test Reason : Location : 119 : A17 A17 Overread By : FEROZ DELANEY MD Edited By : FEROZ DELANEY MD Referred By : , Acquired by : TYLER TAMAYO [facility] HISTORY PHYSICALon HISTORY PHYSICAL HNO ID: [id number] Author: TAVIA MONTIEL APRN.CNP Service: ? 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 Clinical Frailty Scale: 3. Well, with treated comorbid disease STOP-Bang Score: Patient over 50 years old Denies snoring loudly Denies feeling tired, fatigued, or sleepy during the daytime Has not been observed to stop breathing or choking/gasping during sleep Denies having high blood pressure BMI less than or equal to 35 kg/m2 Does not have a large neck Non-male patient STOP-Bang Score: 1 ANESTHESIA FINDINGS: Intubation History: No history of difficult intubation. No abnormal airway history Significant Anesthesia Considerations: Airway History: No history of difficult airway No abnormal airway history I - PHYSICAL EVALUATION AIRWAY Patient intubated: No. Tracheostomy tube not present Short neck: no. Thick neck: no Chen present: no Microretrognathia/Micronagthia/ Recessed Chin: No DENTAL Additional comments: Total implants- cubic circonium. II - ANESTHESIA PLAN Anesthetic plan additional comments: *PACC/TCI - anesthesia choice. Beta Amber Monitoring Plan Post Procedure Analgesic Plan Prepared for Surgery: optimally prepared for surgery, pending [see comment]. EKG, TANDS, Con Abo, PT, PTT, CMP, CBC ordered by surgical service Addendum 02/20/24 Labs and EKG reviewed and accepted from 02/19/24 CONSULTS: Patient does not require consults for optimization at this time Planned Anesthetic: anesthesia choice The Following Tests/Procedures Have Been Initiated: No orders of the defined types were placed in this encounter. REASON FOR VISIT: Zaynab Zaidi is a 68 year old female who is scheduled for Procedure(s): 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 (Left) at the request of Chip Ahmadi MD for consultation. My final recommendation will be communicated back to the requesting physician by way of shared medical record or letter. Subjective The patient has the following: ACTIVE PROBLEM LIST Pararenal Abdominal Aortic Aneurysm (Aaa) Without Rupture (Hcc) [place]'s Syndrome Other Hyperlipidemia Ovarian Varices Nutcracker Phenomenon of Renal Vein Narcotic Drug Use Sinus Bradycardia On Ecg COVID-19 Immunization Status Overdue - Covid-19 Vaccine () Overdue since 06/13/2023 09/12/2021 Imm Admin: COVID-19 original vaccine, full dose, monovalent (MODERNA) 01/05/2021 Imm Admin: COVID-19 original vaccine, full dose, monovalent (MODERNA) 12/06/2020 Imm Admin: COVID-19 original vaccine, full dose, monovalent (MODERNA) Only the first 3 history entries have been loaded, but more history exists. CHIEF COMPLAINT: Preop exam HPI: Zaynab Zaidi is a 68 year old female with PMHx Coronary artery sclerosis, AAA, tension headaches, colon polyp, dysphagia, PVD, OP, female pelvic congestion syndrome, jugular vein stenosis. Presents to PACC today for preop exam. Patient is scheduled for the above procedure on 03/02/24. Patient endorses pain located in the left flank, perineum, and pelvis. venogram, US duplex, and US pelvis with ovarian varices. 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 Denies fevers, chills, chest pain, and SOB. REVIEW OF SYSTEMS: General: Negative for: weight loss >10% of BW in last 6 months, malaise and fever. Neurological: Positive for: peripheral neuropathy (neurontin). Negative for: ACCOUNTANT MANAGER tumor, delirium, dementia, headaches, multiple sclerosis, seizures, TIA and strokes. Respiratory: Allergies - singulair +lung nodule - routine surveillance Negative for: COPD, current cough, dyspnea, home oxygen, pneumonia within 6 weeks, tobacco use, URI < 2 weeks and obstruct (more content not included)... Normal [facility] PT panel Coag (PPP)on 2023 INR Coag (PPP) [Relative time] 1.0 {INR} Normal 0.9-1.3 [facility] Comment on above: Order Comment: Specimen Type: BLOOD SPEC IMENOrdering Facility: [facility] Address: [address] [place] [address] Result Comment: Miriam min K Antagonist (VKA) Therapeutic Range: INR 2 to 3 (Target INR of 2.5) Note: For patients treated with VKA drugs, such as warfarin, the [place] [employer] 2012 Guideline recommends a therapeutic INR range of 2 to 3 (target INR of 2.5). This recommendation includes high-risk patients with antiphospholipid syndrome with previous arterial or venous thromboembolism, current-generation mechanical or bioprosthetic aortic heart valve replacement. Note: Patients with mechanical aortic valve replacement and additional risk factors for thromboembolic events (atrial fibrillation, previous thromboembolism, LV dysfunction, hypercoagulable conditions) or an older generation mechanical AVR (i.e., ball in-Cage) or any mechanical MVR should have a INR therapeutic range of 2.5 to 3.5 (target INR of 3). Deantt GH, et al. Chest 2012, 141:7S-47S Lisseth RA, et al. JAC 2017, 70: 252-289 Performed By: #### 3 4528-0, 31804-2 ####[facility] LABCLIA [id number] [place] [address] [place] PT Coag (PPP) [Time] 10.4 s Normal 9.7-13.0 [facility] Comment on above: Order Comment: Specimen Type: BLOOD SPEC IMENOrdering Facility: [facility] Address: [address] [place], [place] [id number] Performed By: #### 3 4528-0, 89157-7 ####[facility] LABCLIA [id number] [place] [id number] [place] TYPE AND SCREEN,30 DAYon ABO O Normal [facility] Comment on above: Order Comment: Specimen Type: BLOOD SPEC IMENOrdering Facility: [facility] Address: [address] [place] [address] Performed By: #### T [id number] ####[facility] MA[facility] BLOOD BANKCLIA [id number] [place] [address] [place] HISTORICAL AB SCR STATUS Negative Normal [facility] Comment on above: Order Comment: Specimen Type: BLOOD SPEC IMENOrdering Facility: [facility] Address: [address] [place] [address] Performed By: #### T [id number] ####[facility] MAIN BLOOD BANKCLIA [id number] [place] [address] [place] Rh Nom (Bld) Positive Normal [facility] Comment on above: Order Comment: Specimen Type: BLOOD SPEC IMENOrdering Facility: [facility] Address: [address] [place] [address] Performed By: #### T [id number] ####CC MAIN BLOOD BANKIA [id number] [place] [address] [place] URINALYSIS, REFLEX MICROSCOP ICon 02-19-2024 Bilirubin Ql (U) Negative Negative [facility] Clarity (Unsp spec) Clear Clear [facility] Color (U) Colorless Yellow [facility] Glucose Test strip (U) [Mass/Vol] Negative Trace, Negative [facility] Hemoglobin Ql (U) Negative Negative, Trace [facility] Interpretation and review of laboratory results Normal [facility] Ketones Ql (U) Negative Negative, Trace [facility] Leukocyte esterase Test strip Ql (U) Negative Negative, 25 Jefry/uL [facility] Nitrite Ql (U) Negative Negative [facility] pH (U) 5.0 [pH] 5.0 - 8.0 [facility] Protein (U) [Mass/Vol] Negative Trace, Negative [facility] Specific gravity (U) [Rel density] 1.005 1.005 - 1.030 [facility] Urobilinogen Ql (U) Normal Normal [facility] Bilirubin Ql (U) Negative Normal Negative [facility] Comment on above: Order Comment: Specimen Type: URINE SPEC IMENOrdering Facility: [facility] Address: [address] [place] [address] Performed By: #### L [id number] ####[facility] LABCLIA [id number] [place] [address] [place] Clarity (Unsp spec) Clear Normal Clear [facility] Comment on above: Order Comment: Specimen Type: URINE SPEC IMENOrdering Facility: [facility] Address: [address] [place] [address] Performed By: #### L [id number] ####[facility] LABCLIA [id number] [place] [address] [place] Color (U) Colorless Normal Yellow [facility] Comment on above: Order Comment: Specimen Type: URINE SPEC IMENOrdering Facility: [facility] Address: [address] [place] [address] Performed By: #### L [id number] ####[facility] LABCLIA [id number] [place] [address] [place] Glucose Test strip (U) [Mass/Vol] Negative Normal Trace, Negative [facility] Comment on above: Order Comment: Specimen Type: URINE SPEC IMENOrdering Facility: [facility] Address: [address] [place] [address] Performed By: #### L [id number] ####[facility] LABCLIA [id number] [place] [address] [place] Hemoglobin Ql (U) Negative Normal Negative, Trace [facility] Comment on above: Order Comment: Specimen Type: URINE SPEC IMENOrdering Facility: [facility] Address: [address] [place] [address] Performed By: #### L [id number] ####[facility] LABCLIA [id number] [place] [address] [place] Ketones Ql (U) Negative Normal Negative, Trace [facility] Comment on above: Order Comment: Specimen Type: URINE SPEC IMENOrdering Facility: [facility] Address: [address] [place] [address] Performed By: #### L [id number] ####[facility] LABCLIA [id number] [place] [address] [place] Leukocyte esterase Test strip Ql (U) Negative Normal Negative, 25 Jefry/uL [facility] Comment on above: Order Comment: Specimen Type: URINE SPEC IMENOrdering Facility: [facility] Address: [address] [place] [address] Performed By: #### L [id number] ####[facility] LABCLIA [id number] [place] [address] [place] Nitrite Ql (U) Negative Normal Negative [facility] Comment on above: Order Comment: Specimen Type: URINE SPEC IMENOrdering Facility: [facility] Address: [address] [place] [address] Performed By: #### L [id number] ####[facility] LABCLIA [id number] [place] [address] [place] pH (U) 5.0 [pH] Normal 5.0-8.0 [facility] Comment on above: Order Comment: Specimen Type: URINE SPEC IMENOrdering Facility: [facility] Address: [address] [place] [address] Performed By: #### L [id number] ####[facility] LABCLIA [id number] [place] [address] [place] Protein (U) [Mass/Vol] Negative Normal Trace, Negative [facility] Comment on above: Order Comment: Specimen Type: URINE SPEC IMENOrdering Facility: [facility] Address: [address] [place] [address] Performed By: #### L [id number] ####[facility] LABCLIA [id number] [place] [address] [place] Specific gravity (U) [Rel density] 1.005 Normal 1.005-1.03 0 [facility] Comment on above: Order Comment: Specimen Type: URINE SPEC IMENOrdering Facility: [facility] Address: [address] [place] [address] Performed By: #### L [id number] ####[facility] LABCLIA [id number] [place] [address] [place] Urobilinogen Ql (U) Normal Normal Normal [facility] Comment on above: Order Comment: Specimen Type: URINE SPEC IMENOrdering Facility: [facility] Address: [address] [place] [address] Performed By: #### L [id number] ####[facility] LABIA [id number] [place] [address] [place] aPTT PPPon 02-19-2024 aPTT Coag (PPP) [Time] 26.2 s Normal 23.0-32.4 [facility] Comment on above: Order Comment: Specimen Type: BLOOD SPEC IMENOrdering Facility: [facility] Address: [address] [place] [address] Performed By: #### 3 4528-0, 13140-0 ####[facility] [id number] [place] [address] [place] [address] CHEST WO CONTon CT CHEST WO CONT CT CHEST WO CONT CT CHEST WO CONTRAST CLINICAL HISTORY: Pulmonary nodule, follow-up COMPARISON: 06/24/2023 PROCEDURE: Multidetector axial CT chest performed. Sagittal and coronal 2-D reconstructed images were also obtained. Automated dose reduction techniques utilized. Computer-aided detection of pulmonary nodules was performed utilizing orangut[employer] software. All CT scans at this facility use dose modulation, iterative reconstruction, and/or weight based dosing when appropriate to reduce radiation dose to as low as reasonably achievable. FINDINGS: Thyroid: The visualized portion of the thyroid is unremarkable. Lymph nodes: No supraclavicular, axillary, mediastinal lymphadenopathy. Prominent 1 cm precarinal lymph node is unchanged. Osseous structures/Chest wall: Multilevel degenerative changes of the thoracic spine with accentuated thoracic kyphosis. Upper Abdomen: No acute findings in the visualized upper abdomen. Heart and aorta: Heart is enlarged. No pericardial effusion. Moderate multivessel coronary artery calcifications. Thoracic aorta is nonaneurysmal. Previously described abdominal suprarenal aortic dilatation is poorly evaluated Pulmonary artery: Enlarged pulmonary trunk, 3.8 cm, similar to prior. Lungs: Central airways widely patent. No pneumothorax or pleural effusion. Emphysematous changes with biapical scarring. Solid superior left lower lobe pulmonary nodule measures 7 mm (series 2 image 29), previously 5 mm. Adjacent tiny nodules appears similar to prior. IMPRESSION: * Solid left lower lobe pulmonary nodule slightly increased in size from prior exam. Recommend repeat chest CT in 3-6 months to assess stability (nodule size likely subthreshold for PET-CT sensitivity/sampling). * Additional findings as above Approved by Resident Jose R Ireland DO on 01/21/2024 10:22 AM Frank Jules MD have personally reviewed the image(s) and agree with and/or edited the report Finalized by Frank Olivo MD on 01/21/2024 12:59 PM Normal [facility] ZAYNAB ZA[facility]I ([id number]) 1955 F Date Time Provider Department 01/13/24 RINA FOX During your visit today, we recorded the following information about you: Manuela Muñoz 01/13/2024 10:29 AM Signed [facility] email message to cancel surgery being done robotic procedure instead at the Clinic. Allergies As of Date: 01/13/2024 Noted Allergy Reaction CLINDAMYCIN 06/30/2018 2 - Rash 12 - Shortness of Breath PENICILLINS 02/12/2017 4 - Hives 2 - Rash 5 - Intolerance DOXYCYCLINE 12/18/2023 2 - Rash CODEINE 06/30/2018 8 - GI Upset VENOM-HONEY BEE 12/05/2019 2 - Rash Date Reviewed: 12/25/2023 Reviewed by: Riana Grant OCCA - Fully Assessed Reason for Visit: Surgery Cancelled [[id number]] Prescriptions as of 01/13/2024 - calcium carbonate/vitamin D3 (CALTRATE 600 + D ORAL) Take 600 mg by mouth once daily. - atorvastatin (LIPITOR) 20 mg tablet Take 20 mg by mouth every evening. - fluticasone (FLONASE) 50 mcg/actuation nasal spray Use 1 Alsen in the nose as needed for cold/allergy symptoms. Take in allergy season - gabapentin (NEURONTIN) 300 mg capsule Take 300 mg by mouth as needed for pain. - montelukast (SINGULAIR) 10 mg tablet Take 10 mg by mouth once daily. - HYDROcodone-acetaminophen (NORCO) 5-325 mg per tablet Take 1 tablet by mouth every 6 hours as needed for pain. - ibuprofen (MOTRIN) 200 mg tablet Take 400 mg by mouth two times a day. Problem List As Of Date 01/13/2024 Noted Resolved Pararenal abdominal aortic aneurysm (AAA) witho*12/18/2023 Encounter Status:Closed by MANUELA MUÑOZ on 01/13/24 [facility] Heidi 01-08-2024 [facility] Telephone ([facility]) ZAYNAB ZAIDI ([id number]) 1955 F Date Time Provider Department 01/08/24 RINA FOX During your visit today, we recorded the following information about you: Estephania Felton 01/08/2024 12:08 PM Signed Mrs. Zaidi called to confirm that it is fine with Dr. Fox for her January 20 surgery to be cancelled since she is having the procedure done robotically. Also, the patient states that she has an aortic aneurysm that needs to be addressed and she wants to know how soon that needs to happen? Estephania Mojica Deckhand Clam Dredge Rina Fox MD 01/08/2024 1:45 PM Signed Thank you ! Swati will call her. Swati Baca, RN 01/09/2024 12:15 PM Signed I called and spoke with Zaynab Zaidi today. I told her I would cancel her surgery case with Dr. Fox. I also explained to her that her pararenal aortic ectasia could be followed by her PCP with an aortic duplex. Swati Baca RN Allergies As of Date: 01/08/2024 Noted Allergy Reaction CLINDAMYCIN 06/30/2018 2 - Rash 12 - Shortness of Breath PENICILLINS 02/12/2017 4 - Hives 2 - Rash 5 - Intolerance DOXYCYCLINE 12/18/2023 2 - Rash CODEINE 06/30/2018 8 - GI Upset VENOM-HONEY BEE 12/05/2019 2 - Rash Date Reviewed: 12/25/2023 Reviewed by: Riana Grant OCCA - Fully Assessed Reason for Visit: Patient Question [[id number]] Prescriptions as of 01/09/2024 - calcium carbonate/vitamin D3 (CALTRATE 600 + D ORAL) Take 600 mg by mouth once daily. - atorvastatin (LIPITOR) 20 mg tablet Take 20 mg by mouth every evening. - fluticasone (FLONASE) 50 mcg/actuation nasal spray Use 1 Alsen in the nose as needed for cold/allergy symptoms. Take in allergy season - gabapentin (NEURONTIN) 300 mg capsule Take 300 mg by mouth as needed for pain. - montelukast (SINGULAIR) 10 mg tablet Take 10 mg by mouth once daily. - HYDROcodone-acetaminophen (NORCO) 5-325 mg per tablet Take 1 tablet by mouth every 6 hours as needed for pain. - ibuprofen (MOTRIN) 200 mg tablet Take 400 mg by mouth two times a day. Problem List As Of Date 01/08/2024 Noted Resolved Pararenal abdominal aortic aneurysm (AAA) witho*12/18/2023 Encounter Status:Closed by ESTEPHANIA FELTON on 01/08/24 Normal [facility] CNPYen 01-01-2024 [facility]NP[facility] Telephone [facility] ZAYNAB ZAIDI ([id number]) 1955 F Date Time Provider Department 01/01/24 RINA FOX During your visit today, we recorded the following information about you: Estephania Felton 01/01/2024 9:27 AM Signed Mrs. Zaidi called to let Dr. Fox know that Urology is able to do the proposed procedure robotically and that she is scheduled to have it done on March 02. Estephania Mojica Deckhand Clam Dredge Allergies As of Date: 01/01/2024 Noted Allergy Reaction CLINDAMYCIN 06/30/2018 2 - Rash 12 - Shortness of Breath PENICILLINS 02/12/2017 4 - Hives 2 - Rash 5 - Intolerance DOXYCYCLINE 12/18/2023 2 - Rash CODEINE 06/30/2018 8 - GI Upset VENOM-HONEY BEE 12/05/2019 2 - Rash Date Reviewed: 12/25/2023 Reviewed by: Riana Grant OCCA - Fully Assessed Reason for Visit: Patient Update [1234] Prescriptions as of 01/01/2024 - calcium carbonate/vitamin D3 (CALTRATE 600 + D ORAL) Take 600 mg by mouth once daily. - atorvastatin (LIPITOR) 20 mg tablet Take 20 mg by mouth every evening. - fluticasone (FLONASE) 50 mcg/actuation nasal spray Use 1 Alsen in the nose as needed for cold/allergy symptoms. Take in allergy season - gabapentin (NEURONTIN) 300 mg capsule Take 300 mg by mouth as needed for pain. - montelukast (SINGULAIR) 10 mg tablet Take 10 mg by mouth once daily. - HYDROcodone-acetaminophen (NORCO) 5-325 mg per tablet Take 1 tablet by mouth every 6 hours as needed for pain. - ibuprofen (MOTRIN) 200 mg tablet Take 400 mg by mouth two times a day. Problem List As Of Date 01/01/2024 Noted Resolved Pararenal abdominal aortic aneurysm (AAA) witho*12/18/2023 Encounter Status:Closed by ESTEPHANIA FELTON on 01/01/24 Normal [facility] CNOVon 12-25-2023 CNOV Office Visit (UROLMN ) ZAYNAB WATKINS ([id number]) 1955 F Date Time Provider Department 12/25/23 4:00 PM CHIP CARR During your visit today, we recorded the following information about you: Chip Carr MD 02/23/2024 11:19 AM Signed REASON FOR VISIT: consult from Dr. Deleon for Nutcracker HPI: 68 year old female who presents with a history of Coronary artery sclerosis, AAA, tension headaches, colon polyp, dysphagia, PVD, OP, female pelvic congestion syndrome, jugular vein stenosis. Surgical history: Cholecystectomy (1981) Seen by Dr. Deleon (12/22/23) Notes listed below: -left sided flank pain associated with hematuria. She started to notice the pain over the past year. She complains of pain located in the left flank, perineum, and pelvis that is worse after sexual intercourse. She states that her pain is improved with laying down or elevating her legs. She has undergone venogram, US duplex, and US pelvis with ovarian varices. 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 Scheduled for surgery with vascular on 01/21/24 LABS: Creatinine (06/24/23): 0.84 URINALYSIS: Negative on 12/22/23 IMAGIN04/25/2023 CT venogram -Dilated varicosities extending all the way from the level the left renal vein into the pelvis and although it is bilateral it is most notably within the left hemipelvis. 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 - Infrarenal AAA 3.4cm. Left lower extremity Duplex 04/25/23: - No evidence of deep or superficial vein thrombosis of the lower extremity. No evidence of deep or superficial venous reflux. Aortic Duplex 04/25/2023 - Aortic ectasia in the infrarenal aorta with the maximum diameter of 2.8 cm and evidence for atherosclerotic disease without significant stenosis in the aortoiliac arteries. Venogram June 18, 2023 -IVUS intravascular ultrasound the presence of left renal vein narrowing. - Manometry was not performed due to technical problems in the catholic priest. 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 No DVT Diagnostic venography 09/09/2023 -large diameter left ovarian vein with avid reflux from the level of the left renal vein into a large group of pelvic varicosities. ALLERGIES: ALLERGIES Allergen Reactions Clindamycin Rash, Shortness of Breath Penicillins Hives, Rash, Intolerance Doxycycline Rash Codeine GI Upset Venom-Honey Bee Rash MEDICATIONS: Current Outpatient Medications Medication Sig calcium carbonate/vitamin D3 (CALTRATE 600 + D ORAL) Take 600 mg by mouth once daily. atorvastatin (LIPITOR) 20 mg tablet Take 20 mg by mouth every evening. fluticasone (FLONASE) 50 mcg/actuation nasal spray Use 1 Alsen in the nose as needed for cold/allergy symptoms. Take in allergy season gabapentin (NEURONTIN) 300 mg capsule Take 300 mg by mouth as needed for pain. montelukast (SINGULAIR) 10 mg tablet Take 10 mg by mouth once daily. HYDROcodone-acetaminophen (NORCO) 5-325 mg per tablet Take 1 tablet by mouth every 6 hours as needed for pain. ibuprofen (MOTRIN) 200 mg tablet Take 400 mg by mouth two times a day. No current facility-administered medications for this visit. HISTORIES 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 PAST SURGICAL HISTORY Procedure Laterality Date REMOVAL GALLBLADDER N/A Social History Tobacco Use Smoking status: Former Packs/day: 1.00 Years: 27.00 Additional pack years: 0.00 Total pack years: 27.00 Types: Cigarettes Quit date: 2010 Years since quittin.2 Passive exposure: Never Smokeless tobacco: Never Vaping Use Vaping Use: Never used Substance Use Topics Alcohol use: Not Currently Drug use: Never REVIEW OF SYSTEMS General: some weight loss but back to 127 Genitourinary: See HPI The remainder of the ROS was reviewed and negative. 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 - atorvastat (more content not included)... Normal [facility] URINALYSIS, REFLEX MICROSCOP ICon 12-25-2023 Bilirubin Ql (U) Negative Negative [facility] Clarity (Unsp spec) Clear Clear [facility] Color (U) Colorless Yellow [facility] Glucose Test strip (U) [Mass/Vol] Negative Trace, Negative [facility] Hemoglobin Ql (U) Negative Negative, Trace [facility] Ketones Ql (U) Negative Negative, Trace [facility] Leukocyte esterase Test strip Ql (U) Negative Negative, 25 Jefry/uL [facility] Nitrite Ql (U) Negative Negative [facility] pH (U) 5.0 [pH] 5.0 - 8.0 [facility] Protein (U) [Mass/Vol] Negative Trace, Negative [facility] Specific gravity (U) [Rel density] 1.004 Low 1.005 - 1.030 [facility] Urobilinogen Ql (U) Normal Normal [facility] Bilirubin Ql (U) Negative Normal Negative [facility] Comment on above: Order Comment: Specimen Type: URINE SPEC IMENOrdering Facility: [facility] Address: [address] [place] [address] Performed By: #### L [id number] ####[facility] LABCLIA [id number] [address] [place] Clarity (Unsp spec) Clear Normal Clear [facility] Comment on above: Order Comment: Specimen Type: URINE SPEC IMENOrdering Facility: [facility] Address: [address] [id number] Performed By: #### L [id number] ####[facility] LABCLIA [id number] [place] [address] [place] Color (U) Colorless Normal Yellow [facility] Comment on above: Order Comment: Specimen Type: URINE SPEC IMENOrdering Facility: [facility] Address: [address] [place] [address] Performed By: #### L [id number] ####[facility] LABCLIA [id number] [place] [address] [place] Glucose Test strip (U) [Mass/Vol] Negative Normal Trace, Negative [facility] Comment on above: Order Comment: Specimen Type: URINE SPEC IMENOrdering Facility: [facility] Address: [address] [place] [address] Performed By: #### L [id number] ####[facility] LABCLIA [id number] [place] [address] [place] Hemoglobin Ql (U) Negative Normal Negative, Trace [facility] Comment on above: Order Comment: Specimen Type: URINE SPEC IMENOrdering Facility: [facility] Address: [address] [place] [address] Performed By: #### L [id number] ####[facility] LABCLIA [id number] [place] [address] [place] Ketones Ql (U) Negative Normal Negative, Trace [facility] Comment on above: Order Comment: Specimen Type: URINE SPEC IMENOrdering Facility: [facility] Address: [address] [id number] Performed By: #### L [id number] ####[facility] LABCLIA [id number] [place] [address] [place] Leukocyte esterase Test strip Ql (U) Negative Normal Negative, 25 Jefry/uL [facility] Comment on above: Order Comment: Specimen Type: URINE SPEC IMENOrdering Facility: [facility] Address: [address] [place] [address] Performed By: #### L [id number] ####[facility] LABCLIA [id number] [place] [address] [place] Nitrite Ql (U) Negative Normal Negative [facility] Comment on above: Order Comment: Specimen Type: URINE SPEC IMENOrdering Facility: [facility] Address: [address] [place] [address] Performed By: #### L [id number] ####[facility] LABCLIA [id number] [place] [address] [place] pH (U) 5.0 [pH] Normal 5.0-8.0 [facility] Comment on above: Order Comment: Specimen Type: URINE SPEC IMENOrdering Facility: [facility] Address: [address] [place] [address] Performed By: #### L [id number] ####[facility] LABCLIA [id number] [place] [address] [place] Protein (U) [Mass/Vol] Negative Normal Trace, Negative [facility] Comment on above: Order Comment: Specimen Type: URINE SPEC IMENOrdering Facility: [facility] Address: [address] [place] [address] Performed By: #### L [id number] ####[facility] LABCLIA [id number] [place] [address] [place] Specific gravity (U) [Rel density] 1.004 Low 1.005-1.03 0 [facility] Comment on above: Order Comment: Specimen Type: URINE SPEC IMENOrdering Facility: [facility] Address: [address] [place] [address] Performed By: #### L [id number] ####[facility] LABCLIA [id number] [place] [address] [place] Urobilinogen Ql (U) Normal Normal Normal [facility] Comment on above: Order Comment: Specimen Type: URINE SPEC IMENOrdering Facility: [facility] Address: [address] [place] [address] Performed By: #### L [id number] ####[facility] LABCLIA [id number] [address] [place] CNOVon 12-22-2023 CNOV Office Visit (UROLMN ) ZAYNAB ZAIDI ([id number]) 1955 F Date Time Provider Department 12/22/23 2:30 PM RADU DELEON URO[place]ONIETTA During your visit today, we recorded the following information about you: Birgit Cook OCCA 12/22/2023 1:51 PM Signed Patient PVR recorded: 0 mL LUCIAN Rodriguez Ruben, MD 12/23/2023 7:58 AM Signed PATIENT: Zaynab Zaidi [id number] NEW PATIENT REFERRING MD: Rina Fox 12/20/2023 Chief Complaint Consult, Nutcracker phenomenon of renal vein Referral Consultation requested by Dr. Fox for an opinion regarding Nutcracker phenomenon of renal vein. My final recommendations will be communicated back to the requesting physician by way of shared Medical record or letter to requesting physician via US mail. History of Present Illness Zaynab Zaidi is a very pleasant 68 year old female who presents with a history of Coronary artery sclerosis, AAA, tension headaches, colon polyp, dysphagia, PVD, OP, female pelvic congestion syndrome, jugular vein stenosis Left flank pain and pain in pelvis region (feels like sitting on cucumber) [place] this started one year ago. Thought it was a UTI Was on OR table to have ovarian veins coiled. Surgery aborted 07/25/23 due to renal vein compression To have vascular surgery on 01/20- is here to see if she is able to have sugery robotically Always feels like she needs to empty- PVR was [address] oFx 12/18/2023 HISTORY OF PRESENT ILLNESS: Zaynab Zaidi is a 68 year old female who has been referred to vascular surgery for a history of left sided flank pain associated with hematuria. She started to notice the pain over the past year. She complains of pain located in the left flank, perineum, and pelvis that is worse after sexual intercourse. She states that her pain is improved with laying down or elevating her legs. 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 She has undergone venogram, US duplex, and US pelvis with ovarian varices. 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 Past Histories PAST MEDICAL HISTORY Diagnosis Date - Coronary artery sclerosis - Female pelvic congestion syndrome - Jugular vein stenosis PAST SURGICAL HISTORY Procedure Laterality Date - REMOVAL GALLBLADDER N/A Medications Current Outpatient Medications Medication Instructions - atorvastatin (LIPITOR) 20 mg, ORAL, EVERY EVENING - calcium carbonate/vitamin D3 (CALTRATE 600 + D ORAL) 600 mg, ORAL, DAILY - fluticasone (FLONASE) 50 mcg/actuation nasal spray 1 Alsen, NASAL, NEEDED, Take in allergy season - gabapentin (NEURONTIN) 300 mg, ORAL, NEEDED - HYDROcodone-acetaminophen (NORCO) 5-325 mg per tablet 1 tablet, ORAL, EVERY 6 HOURS NEEDED - ibuprofen (MOTRIN) 400 mg, ORAL, 2 TIMES DAILY - montelukast (SINGULAIR) 10 mg, ORAL, DAILY Family History FAMILY HISTORY Problem Relation Age of Onset - Hypertension Mother - Aneurysm Mother - other (pulmonary embolism) Mother - other (varicose veins) Mother - Aneurysm Father - Hypertension Father - Hypertension Brother - Heart Attack Brother - Stroke Brother Social History Social History Tobacco Use - Smoking status: Former Packs/day: 1.00 Years: 27.00 Additional pack years: 0.00 Total pack years: 27.00 Types: Cigarettes Quit date: 2010 Years since quittin.1 Passive exposure: Never - Smokeless tobacco: Never Vaping Use - Vaping Use: Never used Substance Use Topics - Alcohol use: Not Currently - Drug use: Never Allergies Allergies: Clindamycin Rash, Shortness of Breath Doxycycline Rash Codeine GI Upset Review of Systems REVIEW OF SYSTEMS 1.GENERAL: Weight loss 2.GI: nauseated after eating- constipation 3.: frequency Physical Exam LMP (LMP Unknown) General: Alert, no acute distress, oriented Lungs: No respiratory distress or pursed lip breathing Psych: Affect and mood normal Abdomen: Estimated body mass index is 20.48 kg/m? as calculated from the following: Height as of 12/18/23: 168.9 cm (5' 6.5 ). Weight as of 12/18/23: 58.4 kg (128 lb 12.8 oz). Labs and Pathology 0.71 -- 0.84 0.90 Creatinine -- >90 77 71 eGFR (CKD-EPI)non-race dependent >60 -- -- -- GFR MDRD Af Amer >60 -- -- -- GFR MDRD Non Af Amer Imagin04/25/2023 CT venogram -Dilated varicosities extending all the way from the level the left renal vein into the pelvis and although it is bilateral it is most notably within the left hemipelvis. 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 - Infrarenal AAA 3.4cm. Left lower ex (more content not included)... Normal [facility] URINALYSIS, REFLEX MICROSCOP ICon 12-22-2023 Bilirubin Ql (U) Negative Negative [facility] Clarity (Unsp spec) Clear Clear [facility] Color (U) Colorless Yellow [facility] Glucose Test strip (U) [Mass/Vol] Negative Trace, Negative [facility] Hemoglobin Ql (U) Negative Negative, Trace [facility] Ketones Ql (U) Negative Negative, Trace [facility] Leukocyte esterase Test strip Ql (U) Negative Negative, 25 Jefry/uL [facility] Nitrite Ql (U) Negative Negative [facility] pH (U) 5.0 [pH] 5.0 - 8.0 [facility] Protein (U) [Mass/Vol] Negative Trace, Negative [facility] Specific gravity (U) [Rel density] 1.006 1.005 - 1.030 [facility] Urobilinogen Ql (U) Normal Normal [facility] Bilirubin Ql (U) Negative Normal Negative [facility] Comment on above: Order Comment: Specimen Type: URINE SPEC IMENOrdering Facility: [facility] Address: [address] [place] [address] Performed By: #### L [id number] ####[facility] LABCLIA [id number] [place] [address] [place] Clarity (Unsp spec) Clear Normal Clear [facility] Comment on above: Order Comment: Specimen Type: URINE SPEC IMENOrdering Facility: [facility] Address: [address] [place] [address] Performed By: #### L [id number] ####[facility] LABCLIA [id number] [place] [address] [place] Color (U) Colorless Normal Yellow [facility] Comment on above: Order Comment: Specimen Type: URINE SPEC IMENOrdering Facility: [facility] Address: [address] [place] [address] Performed By: #### L [id number] ####[facility] LABCLIA [id number] [place] [address] [place] Glucose Test strip (U) [Mass/Vol] Negative Normal Trace, Negative [facility] Comment on above: Order Comment: Specimen Type: URINE SPEC IMENOrdering Facility: [facility] Address: [address] [place] [address] Performed By: #### L [id number] ####[facility] LABCLIA [id number] [place] [address] [place] Hemoglobin Ql (U) Negative Normal Negative, Trace [facility] Comment on above: Order Comment: Specimen Type: URINE SPEC IMENOrdering Facility: [facility] Address: [address] [place] [address] Performed By: #### L [id number] ####[facility] LABCLIA [id number] [place] [address] [place] Ketones Ql (U) Negative Normal Negative, Trace [facility] Comment on above: Order Comment: Specimen Type: URINE SPEC IMENOrdering Facility: [facility] Address: [address] [place] [address] Performed By: #### L [id number] ####[facility] LABCLIA [id number] [place] [address] [place] Leukocyte esterase Test strip Ql (U) Negative Normal Negative, 25 Jefry/uL [facility] Comment on above: Order Comment: Specimen Type: URINE SPEC IMENOrdering Facility: [facility] Address: [address] [place] [address] Performed By: #### L [id number] ####[facility] LABCLIA [id number] [place] [address] [place] Nitrite Ql (U) Negative Normal Negative [facility] Comment on above: Order Comment: Specimen Type: URINE SPEC IMENOrdering Facility: [facility] Address: [address] [place] [address] Performed By: #### L [id number] ####[facility] LABCLIA [id number] [place] [address] [place] pH (U) 5.0 [pH] Normal 5.0-8.0 [facility] Comment on above: Order Comment: Specimen Type: URINE SPEC IMENOrdering Facility: [facility] Address: [address] [place] [address] Performed By: #### L [id number] ####[facility] LABIA [id number] [place] [address] [place] Protein (U) [Mass/Vol] Negative Normal Trace, Negative [facility] Comment on above: Order Comment: Specimen Type: URINE SPEC IMENOrdering Facility: [facility] Address: [address] [place] [address] Performed By: #### L [id number] ####[facility] LABIA [id number] [place] [address] [place] Specific gravity (U) [Rel density] 1.006 Normal 1.005-1.03 0 [facility] Comment on above: Order Comment: Specimen Type: URINE SPEC IMENOrdering Facility: [facility] Address: [address] [place] [address] Performed By: #### L [id number] ####[facility] LABIA [id number] [place] [address] [place] Urobilinogen Ql (U) Normal Normal Normal [facility] Comment on above: Order Comment: Specimen Type: URINE SPEC IMENOrdering Facility: [facility] Address: [address] [place] [address] Performed By: #### L [id number] ####[facility] [id number] [address] [place] CNOVon 12-18-2023 CNOV Office Visit (PADMA ) ZAYNAB ZAIDI ([id number]) 1955 F Date Time Provider Department 12/18/23 12:00 PM RINA FOX During your visit today, we recorded the following information about you: Temperature Pulse Respiration Blood pressure 98.3 degrees 64/minute 14/minute 131/87 Weight Height 58.4 kg 1.689 m Rina Fox MD 12/18/2023 3:50 PM Signed [facility]GERY OUTPATIENT VISIT DATE December 18, 2023 OUTPATIENT VISIT TYPE CONSULTATION SERVICE DATE: 12/18/2023 SERVICE TIME: 8:49 AM PRIMARY CARE PHYSICIAN: No primary care provider on file. CHIEF COMPLAINT: Nutcracker Syndrome HISTORY OF PRESENT ILLNESS: Zaynab Zaidi is a 68 year old female who has been referred to vascular surgery for a history of left sided flank pain associated with hematuria. She started to notice the pain over the past year. She complains of pain located in the left flank, perineum, and pelvis that is worse after sexual intercourse. She states that her pain is improved with laying down or elevating her legs. 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 She has undergone venogram, US duplex, and US pelvis with ovarian varices. 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 04/25/2023 CT venogram -Dilated varicosities extending all the way from the level the left renal vein into the pelvis and although it is bilateral it is most notably within the left hemipelvis. 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 - Infrarenal AAA 3.4cm. Left lower extremity Duplex 04/25/23: - No evidence of deep or superficial vein thrombosis of the lower extremity. No evidence of deep or superficial venous reflux. Aortic Duplex 04/25/2023 - Aortic ectasia in the infrarenal aorta with the maximum diameter of 2.8 cm and evidence for atherosclerotic disease without significant stenosis in the aortoiliac arteries. Venogram June 18, 2023 -IVUS intravascular ultrasound the presence of left renal vein narrowing. - Manometry was not performed due to technical problems in the catholic priest. 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 No DVT Diagnostic venography 09/09/2023 -large diameter left ovarian vein with avid reflux from the level of the left renal vein into a large group of pelvic varicosities. 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 PAST SURGICAL HISTORY Procedure Laterality Date REMOVAL GALLBLADDER N/A SOCIAL HISTORY: Social History Tobacco Use Smoking status: Former Packs/day: 1.00 Years: 27.00 Additional pack years: 0.00 Total pack years: 27.00 Types: Cigarettes Quit date: 2010 Years since quittin.1 Passive exposure: Never Smokeless tobacco: Never Vaping Use Vaping Use: Never used Substance Use Topics Alcohol use: Not Currently Drug use: Never FAMILY HISTORY Problem Relation Age of Onset Hypertension Mother Aneurysm Mother other (pulmonary embolism) Mother other (varicose veins) Mother Aneurysm Father Hypertension Father Hypertension Brother Heart Attack Brother Stroke Brother MEDICATIONS: calcium carbonate/vitamin D3 (CALTRATE 600 + D ORAL) Take 600 mg by mouth once daily. atorvastatin (LIPITOR) 20 mg tablet Take 20 mg by mouth every evening. fluticasone (FLONASE) 50 mcg/actuation nasal spray Use 1 Alsen in the nose as needed for cold/allergy symptoms. Take in allergy season gabapentin (NEURONTIN) 300 mg capsule Take 300 mg by mouth as needed for pain. montelukast (SINGULAIR) 10 mg tablet Take 10 mg by mouth once daily. HYDROcodone-acetaminophen (NORCO) 5-325 mg per tablet Take 1 tablet by mouth every 6 hours as needed for pain. ibuprofen (MOTRIN) 200 mg tablet Take 400 mg by mouth two times a day. ALLERGIES: ALLERGIES Allergen Reactions Clindamycin Rash, Shortness of Breath Doxycycline Rash Codeine GI Upset PHYSICAL EXAM: VITALS: BP 131/87 Pulse 64 Temp (Src) 98.3 (Oral) Resp 14 Ht 5' 6.5 [cc[ (1.69m) Wt 128 lb 12.8 oz (58.4kg) SpO2 100% BMI 20.48 kg/(m2). General: Alert and oriented, No acute distress Integumentary: Normal color, no rash, no lesions. HEENT: No carotid bruits Cardiovascular: Normal S1 AND S2, no rubs, murmurs or gallops. No JVD., Pulse regular. Lungs: Normal breath sounds, no wheezes or crackles. Abdomen: Soft, non-tender, no rigidity. Extremities: No deformity, no edema or tenderness, no joint swelling or clubbing. Neurol (more content not included)... Normal [facility] Heidi 12-11-2023 [facility] Telephone (VASN) ZAYNAB ZAIDI ([id number]) 1955 F Date Time Provider Department 12/11/23 NO PCP VASSMN During your visit today, we recorded the following information about you: Estephania Felton 12/11/2023 8:28 AM Signed Mrs. Zaidi was referred to Vascular Surgery by Dr. Camp for Nutcracker phenomenon of the renal vein. She was referred back to Dr. Camp for pelvic congestion but the patient is confused because she was referred to VS by Dr. Camp. I will ask the triage nurse to review her records so she can be scheduled appropriately. Estephania Mojica Deckhand Clam Dredge Lulu Hernandez RN 12/11/2023 12:[address] Buchanan office documentation Called and informed patient that Dr. Camp and Dr. Hdz recommended surgical bypass for the left renal vein stenosis, thus she needs to schedule the appointment with Vascular Surgery now. She had no further questions . Estela Chang 12/12/2023 3:53 PM Signed Appt scheduled 12/18/[address] Fox Allergies As of Date: 12/11/2023 Noted Allergy Reaction CLINDAMYCIN 06/30/2018 2 - Rash 12 - Shortness of Breath CODEINE 06/30/2018 8 - GI Upset Date Reviewed: 11/11/2023 Reviewed by: Bev Mahmood APRN.ASSEMBLER PIANO - Fully Assessed Reason for Visit: Patient Question [6127] Prescriptions as of 12/12/2023 - calcium carbonate/vitamin D3 (CALTRATE 600 + D ORAL) Take 600 mg by mouth once daily. - atorvastatin (LIPITOR) 20 mg tablet Take 20 mg by mouth every morning. - fluticasone (FLONASE) 50 mcg/actuation nasal spray Use 1 Alsen in the nose once daily. - gabapentin (NEURONTIN) 300 mg capsule Take 300 mg by mouth as needed for pain. - montelukast (SINGULAIR) 10 mg tablet Take 10 mg by mouth once daily. - HYDROcodone-acetaminophen (NORCO) 5-325 mg per tablet Take 1 tablet by mouth every 6 hours as needed for pain. - ibuprofen (MOTRIN) 200 mg tablet Take 400 mg by mouth every 6 hours as needed for pain. Problem List As Of Date: 12/11/2023 (None) Encounter Status:Closed by ESTELA CHANG on 12/12/23 [facility] Heidi 12-08-2023 CNPN Telephone (PERVMN) ZAYNAB ZAIDI ([id number]) 1955 F Date Time Provider Department 12/08/23 PAGE BUCHANAN During your visit today, we recorded the following information about you: Genaro Andrew 12/08/2023 11:39 AM Addendum Patient called ' office because she has not heard back regarding the next steps that are needed in her evaluation. 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 Buchanan' recommendations. Genaro Leonard Called and informed patient that Dr. Camp and Dr. Hdz recommended surgical bypass for the left renal vein stenosis, thus she needs to schedule the appointment with Vascular Surgery now. She had no further questions. Page Buchanan MD December 08, 2023 12:30 PM Allergies As of Date: 12/08/2023 Noted Allergy Reaction CLINDAMYCIN 06/30/2018 2 - Rash 12 - Shortness of Breath CODEINE 06/30/2018 8 - GI Upset Date Reviewed: 11/11/2023 Reviewed by: Bev Mahmood APRN.ASSEMBLER PIANO - Fully Assessed Reason for Visit: Phone call to patient [Other] Prescriptions as of 12/08/2023 - calcium carbonate/vitamin D3 (CALTRATE 600 + D ORAL) Take 600 mg by mouth once daily. - atorvastatin (LIPITOR) 20 mg tablet Take 20 mg by mouth every morning. - fluticasone (FLONASE) 50 mcg/actuation nasal spray Use 1 Alsen in the nose once daily. - gabapentin (NEURONTIN) 300 mg capsule Take 300 mg by mouth as needed for pain. - montelukast (SINGULAIR) 10 mg tablet Take 10 mg by mouth once daily. - HYDROcodone-acetaminophen (NORCO) 5-325 mg per tablet Take 1 tablet by mouth every 6 hours as needed for pain. - ibuprofen (MOTRIN) 200 mg tablet Take 400 mg by mouth every 6 hours as needed for pain. Problem List As Of Date: 12/08/2023 (None) Encounter Status:Closed by GENARO ANDREW [facility] ([id number]) 1955 F Date Time Provider Department 12/08/23 VASCULAR SURGERY, PHYSICIAN PODCCP During your visit today, we recorded the following information about you: Keturah Gallardo 12/08/2023 2:29 PM Signed Reason for call: Ms Zaidi called and she would like to schedule an appointment with Vascular Surgery. Home and cell number:[phone] Home. [phone] Diagnosis:pelvic congestion syndrome Keturah Jay. Estela Chang 12/10/2023 12:24 PM Signed [employer] message sent with phone number for Vascular Interventional Radiology for this condition. Allergies As of Date: 12/08/2023 Noted Allergy Reaction CLINDAMYCIN 06/30/2018 2 - Rash 12 - Shortness of Breath CODEINE 06/30/2018 8 - GI Upset Date Reviewed: 11/11/2023 Reviewed by: Bev Mahmood APRN.ASSEMBLER PIANO - Fully Assessed Reason for Visit: Appointment [186] Prescriptions as of 12/10/2023 - calcium carbonate/vitamin D3 (CALTRATE 600 + D ORAL) Take 600 mg by mouth once daily. - atorvastatin (LIPITOR) 20 mg tablet Take 20 mg by mouth every morning. - fluticasone (FLONASE) 50 mcg/actuation nasal spray Use 1 Alsen in the nose once daily. - gabapentin (NEURONTIN) 300 mg capsule Take 300 mg by mouth as needed for pain. - montelukast (SINGULAIR) 10 mg tablet Take 10 mg by mouth once daily. - HYDROcodone-acetaminophen (NORCO) 5-325 mg per tablet Take 1 tablet by mouth every 6 hours as needed for pain. - ibuprofen (MOTRIN) 200 mg tablet Take 400 mg by mouth every 6 hours as needed for pain. Problem List As Of Date: 12/08/2023 (None) Encounter Status:Closed by KETURAH GALLARDO on 12/08/23 Normal [facility] COMPLETE BLOOD COUNTon 11-12 Erythrocyte distribution width (RBC) [Ratio] 14.5 % Normal 11.5-15.0 [facility] Comment on above: Performed By: #### CBC, BRATTICE BUILDER #### [facility] ([id number]) [address] [address] Hematocrit (Bld) [Volume fraction] 38.5 % Normal 35-47 [facility] Comment on above: Performed By: #### CBC, BRATTICE BUILDER #### [facility] ([id number]) [address] [address] Hemoglobin (Bld) [Mass/Vol] 12.9 g/dL Normal 11.7-15.5 [facility] Comment on above: Performed By: #### CBC, BRATTICE BUILDER #### [facility] ([id number]) [address] [address] MCH (RBC) [Entitic mass] 29.2 pg Normal 27-34 [facility] Comment on above: Performed By: #### CBC, BRATTICE BUILDER #### [facility] ([id number]) [address] [place] [address] MCHC (RBC) [Mass/Vol] 33.6 g/dL Normal 32-36 [facility] Comment on above: Performed By: #### CBC, BRATTICE BUILDER #### [facility] ([id number]) [address] [address] [place] [address] MCV (RBC) [Entitic vol] 87 fL Normal 80-100 [facility] Comment on above: Performed By: #### CBC, BRATTICE BUILDER #### [facility] ([id number]) [address] [place] [address] Platelet mean volume (Bld) [Entitic vol] 10.5 fL Normal 7-12 [facility] Comment on above: Performed By: #### CBC, BRATTICE BUILDER #### [facility] ([id number]) [address] [address] Platelets (Bld) [#/Vol] 205 10*3/uL Normal 150-450 [facility] Comment on above: Performed By: #### CBC, BRATTICE BUILDER #### [facility] ([id number]) [address] [facility] [place] [address] RBC COUNT 4.43 X10E12/L Normal 3.80-5.20 [facility] Comment on above: Performed By: #### CBC, BRATTICE BUILDER #### [facility] ([id number]) [address] [address] WBC (Bld) [#/Vol] 4.8 10*3/uL Normal 4.0-11.0 [facility] Comment on above: Performed By: #### CBC, BRATTICE BUILDER #### [facility] ([id number]) [address] [place] [address] CREATININEon 11-12-2023 Creatinine [Mass/Vol] 0.90 mg/dL Normal 0.40-1.00 [facility] Comment on above: Result Comment: METHOD TRACEABLE TO IDMS STANDARD Performed By: #### C BC, BRATTICE BUILDER #### [facility] ([id number]) [address] [facility] [facility] [place] [address] GFR/1.73 sq M.predicted among non-blacks MDRD (S/P/Bld) [Vol rate/Area] 71 mL/min/{1.73_m2} Normal >59 [facility] Comment on above: Result Comment: Reported eGFR is based on the CKD-EPI 2020 equation that does not use a race coefficient. Performed By: #### C BC, BRATTICE BUILDER #### [facility] ([id number]) [address] [facility] [address] [facility] [place] [address] HISTORY PHYSICALon HISTORY PHYSICAL HNO ID: [id number] Author: BEV MAHMOOD APRN.ASSEMBLER PIANO Service: ? Author Type: Nurse Practitioner Type: H&P Filed: 11/11/2023 16:19 Note Text: INTERVENTIONAL RADIOLOGY CONSULT NOTE November 11, 2023 2:47 PM Consultation requested by Dr. Buchanan for an opinion regarding pelvic congestion syndrome and my final recommendations will be communicated back to the requesting physician by way of shared medical record or letter via US mail. PRIMARY CARE PHYSICIAN: No primary care provider on file. 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 Patient presents for discussion regarding chronic pelvic pain and possible treatments with Dr. Camp in Interventional Radiology. She has a h/o severe left sided pelvic pain, perineal pain, vaginal pressure, urinary urgency, dysuria, left flank pain, and pelvic pain after sexual intercourse and orgasm. She has no history of heavy menstrual flow. Pain is nearly constant; the severity is 7/10. She states the only position she can take to have relief is lying down, elevating legs. Symptoms began last November, last year when she developed pain in L flank and pelvic pain on the left and presented to urgent care. She thought she has UTI but urinalysis was negative except found hematuria. She thought she might have kidney stones, had CT that showed no stones. 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 -CT venogram A/P 04/25/23: dilated varicosities extending all the way from the level the left renal vein into the pelvis and although it is bilateral it is most notably within the left hemipelvis. 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 Subsequent venography was performed on June 18, 2023. Prior to planned coil embolization of the left ovarian vein, a repeat diagnostic study was performed in July, confirming by intravascular ultrasound the presence of left renal vein narrowing. Manometry was not performed due to technical problems in the catholic priest. -Venous incompetency duplex US- LE 04/25/23: No evidence of deep or superficial vein thrombosis of the lower extremity. No evidence of deep or superficial venous reflux. -Duplex US abd aorta 04/25/23: Aortic ectasia in the infrarenal aorta with the maximum diameter of 2.8 cm and evidence for atherosclerotic disease without significant stenosis in the aortoiliac arteries. -Venous duplex US - UE 07/18/23: bilateral IJ stenosis near carotid bifurcation. No DVT On 09/09/23, she underwent another diagnostic venography. This has shown a large diameter left ovarian vein with avid reflux from the level of the left renal vein into a large group of pelvic varicosities. There has been some concern that she may be experiencing ?nutcracker? type pathology read as relates to the left renal vein. No obstetric history on file What do you think is causing your pain? Not sure if renal vein or pelvic vein congestion Is there an event you associate with the onset of your pain? No How long have you had this pain?since November Do you have pain that moves from envn-ja-hvgy? No Do have sudden episodes of pelvic pain that come and go? No Due currently have or been treated for varicose veins in the legs? No Is your pain associated with your menstrual cycle? Has early menopause Do you associate your pain with anything else? no OB History No obstetric history on file. Last Pap: 03/19/23, normal LMP: in menopause Pain Location: Pelvis: left , Flank: Left Duration: since February, constant Quality: Pain: sharp at L flank area and burning at Left pelvis area Severity: Typical pain is rated 7/10, worst pain is rated 10/10 Aggravating factors: n/a Alleviating factors: lying down, elevating legs Past interventions: n/a Hormonal Methods: no OTC Medications: calcium Prescribed Medications: NSAIDs, Gabapenin, Oxycodone Procedures: n/a Physical Therapy: PFPT no Sexually active? No Dyspareunia? No intercourse Desire for future fertility? No SEXUAL AND PHYSICAL ABUSE HISTORY: Have you ever been a victim of emotional,physical or sexual abuse? This can include being humiliated or insulted. Emotional: No Physical: No Sexual: No Do you feel safe at home? Yes Caffeine intake: 4 cups/day Exercise: used to, stopped when developed the pain Occupation: retired HISTORY 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 No past surgical history on file. FAMILY HISTORY Problem Relation Age of Onset Hypertension Mother Aneurysm Mother other (pulmonary embolism) Mother other (varicose veins) Mot (more content not included)... Normal [facility] CNOVon 11-05-2023 CNOV Office Visit (PERVMN ) ZAYNAB ZAIDI ([id number]) 1955 F Date Time Provider Department 11/05/23 12:45 PM PAGE BUCHANAN PEROREN During your visit today, we recorded the following information about you: Pulse Blood pressure Weight Height 67/minute 153/80 58.5 kg 1.727 m Page Buchanan MD 11/05/2023 2:48 PM Signed [facility] Department of Cardiovascular Medicine SECTION OF VASCULAR MEDICINE OUTPATIENT VISIT DATE November 05, 2023 OUTPATIENT VISIT TYPE CONSULTATION Consult regarding: nutcraker syndrome and pelvic congestion syndrome Consult requested by: SELF My final recommendations will be communicated back to the requesting physician by way of the shared medical record or by letter. Primary care physician: No primary care provider on file. History of present illness: 68yof from [place], [place], who came to [place] today (2-hr drive) for this patient -initiated appointment. She initially tried to schedule appt with Vascular Surgery, and she was also referred to IR (Dr. Camp), but she was ultimately referred to Vascular Medicine. She is, however, scheduled with IR on 11/11/23 (presumably for an appt with Dr. Camp, but there are no physician names clearly specified in the appt). PMHx [place] Syndrome, jugular vein stenosis (asymptomatic), HLD, pelvic venous congestion She has a h/o severe pelvic pain, perineal pain, vaginal pressure, urinary urgency, dysuria, and left flank pain. Pain is intermittent but nearly constant; the severity is intermittent. She says the only position she can take to have relief is lying down (more towards her right side). She denies hematuria. Symptoms began early last year, and she initially had w/uy for lumbar spine disease which was unremarkable. She has undergone evaluation in [facility] records available under care everywhere and images have been uploaded but not all were available to me today. But review of available images and reports indicates: _ Normal MICHAEL in OCT 2022 (RLE= 1.10; LLE 1.08) _ MRI lumbar spine- 04/18/23: Mild multilevel degenerative spondylosis most significant at L4-L5 and L5-S1. _ CT venogram A/P 04/25/23: dilated varicosities extending all the way from the level the left renal vein into the pelvis and although it is bilateral it is most notably within the left hemipelvis. 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 Infrarenal AAA 3.4cm _ Venous incompetency duplex US- LE 04/25/23: No evidence of deep or superficial vein thrombosis of the lower extremity. No evidence of deep or superficial venous reflux. _ Duplex US abd aorta 04/25/23: Aortic ectasia in the infrarenal aorta with the maximum diameter of 2.8 cm and evidence for atherosclerotic disease without significant stenosis in the aortoiliac arteries. _ Duplex US carotid arteries 05/19/23: Plaque without significant stenosis (<50%) of the internal carotid artery. Antegrade vertebral artery flow. _ CT chest: no acute findings. Fusiform dilatation of the suprarenal abdominal aorta up to 3.2 cm. _ Venous duplex US - UE 07/18/23: bilateral IJ stenosis near carotid bifurcation. No DVT On 09/09/23, she underwent venography which showed: 1. Compression of the left renal vein, worse during expiration, and improved during inspiration, consistent with Nutcracker phenomenon. 2. Reflux in dilated left ovarian vein. 3. The pressure gradient across the left renal vein was 2 mmHg at rest; this increased to 3 mmHg after temporary occlusion the left ovarian vein with a balloon. 4. Left renal venogram during ovarian vein occlusion revealed good flow through the left renal vein without significant collaterals seen. She states that there was lack of consensus on the best way to treat her, thus she decided to come to [facility] for further evaluation. Allergies: is allergic to clindamycin and codeine. Medications: atorvastatin (LIPITOR) 20 mg tablet Take 20 mg by mouth every morning. fluticasone (FLONASE) 50 mcg/actuation nasal spray Use 1 Alsen in the nose once daily. gabapentin (NEURONTIN) 300 mg capsule Take 300 mg by mouth as needed for pain. montelukast (SINGULAIR) 10 mg tablet Take 10 mg by mouth once daily. HYDROcodone-acetaminophen (NORCO) 5-325 mg per tablet Take 1 tablet by mouth every 6 hours as needed for pain. ibuprofen (MOTRIN) 200 mg tablet Take 400 mg by mouth every 6 hours as needed for pain. Past medical history: has a past medical history of Coronary artery sclerosis, Female pelvic congestion syndrome, and Jugular vein stenosis. Past surgical history: has no past surgical history on file. Family history: family history includes Aneurysm in her father and mother; Heart Attack in her brother; Hypertension in her brother, father, and mother; Stroke in her brother; pulmonary embolism in her mother; varicose (more content not included)... Normal [facility] Heidi 10-16-2023 [facility] Telephone ([facility]) ZAYNAB ZAIDI ([id number]) 1955 F Date Time Provider Department 10/16/23 NO PCP PODCCP During your visit today, we recorded the following information about you: Eduar Austin 10/16/2023 2:13 PM Signed Reason for call: Ms Zaidi called and she would like to schedule an appointment with Vascular surgery Home and cell number: [phone] Diagnosis: pelvic congestion syndrome Eduar Jay Estela Jimenez 10/21/2023 2:10 PM Signed Patient has appt scheduled with Dr Salinas 10/30/23. Allergies As of Date: 10/16/2023 (Not on File) Date Reviewed: Never Reviewed Reason for Visit: Appointment [186] Problem List As Of Date: 10/16/2023 (None) Encounter Status:Closed by ESTELA CHANG on 10/21/23 Normal [facility] CBC AUTO DIFFon 02-18-2023 BASO # 0.1 103/ul Normal 0.0-0.1 [facility] Comment on above: Performed By: #### CBC #### [facility] [address] [address] [address] Camilo Reese Basophils/100 WBC (Bld) 1.4 % Normal 0.2-2.0 [facility] Comment on above: Performed By: #### CBC #### [facility] [address] [address] [address] Camilo Reese EO # 0.1 103/ul Normal 0.0-0.7 [facility] Comment on above: Performed By: #### CBC #### [facility] [address] [address] [address] Camilo Reese Eosinophils/100 WBC (Bld) 2.4 % Normal 0.9-7.0 [facility] Comment on above: Performed By: #### CBC #### [facility] [address] [place] [address] Dr. Camilo Reese Erythrocyte distribution width (RBC) [Ratio] 13.9 % Normal 11.0-15.0 [facility] Comment on above: Performed By: #### CBC #### [facility] [address] [address] [address] Camilo Reese Hematocrit (Bld) [Volume fraction] 41.3 % Normal 36.0-48.0 [facility] Comment on above: Performed By: #### CBC #### [facility] [address] [place] [address] Dr. Camilo Reese Hemoglobin (Bld) [Mass/Vol] 13.5 g/dL Normal 12.0-16.0 [facility] Comment on above: Performed By: #### CBC #### [facility] [address] [place] [address] Dr. Camilo Reese IG # 0.00 10e3/ul Normal 0.00-0.03 [facility] Comment on above: Performed By: #### CBC #### [facility] [address] [place] [address] Dr. Camilo Reese IG % 0.0 % Normal 0.0-0.5 [facility] Comment on above: Performed By: #### CBC #### [facility] [address] [place] [address] Dr. Camilo Reese LYMPH # 1.3 103/ul Normal 1.2-3.8 [facility] Comment on above: Performed By: #### CBC #### [facility] [address] [place] [address] Dr. Camilo Reese Lymphocytes/100 WBC (Bld) 31.0 % Normal 20.5-60.0 [facility] Comment on above: Performed By: #### CBC #### [facility] [address] [place] [address] Dr. Camilo Reese MANUAL DIFF REQ NO Normal [facility] Comment on above: Performed By: #### CBC #### [facility] [address] [place] [address] Dr. Camilo Reese MCH (RBC) [Entitic mass] 29.2 pg Normal 26.7-34.0 [facility] Comment on above: Performed By: #### CBC #### [facility] [address] [place] [address] Dr. Camilo Reese MCHC (RBC) [Mass/Vol] 32.7 g/dL Normal 29.9-35.2 [facility] Comment on above: Performed By: #### CBC #### [facility] [address] [address] [address] Camilo Reese MCV (RBC) [Entitic vol] 89.4 fL Normal 81.0-99.0 [facility] Comment on above: Performed By: #### CBC #### [facility] [address] [address] [address] Camilo Reese MONO # 0.6 103/ul Normal 0.3-0.8 [facility] Comment on above: Performed By: #### CBC #### [facility] [address] [place] [address] Dr. Camilo Reese Monocytes/100 WBC (Bld) 13.8 % Critically high 1.7-12.0 [facility] Comment on above: Performed By: #### CBC #### [facility] [address] [address] [address] Camilo Reese NEUT # 2.2 103/ul Normal 1.4-6.5 [facility] Comment on above: Performed By: #### CBC #### [facility] [address] [address] [address] Camilo Reese Neutrophils/100 WBC (Bld) 51.4 % Normal 43.0-75.0 [facility] Comment on above: Performed By: #### CBC #### [facility] [address] [address] [address] Camilo Reese Platelet mean volume (Bld) [Entitic vol] 11.5 fL Normal 9.5-13.5 [facility] Comment on above: Performed By: #### CBC #### [facility] [address] [address] [address] Camilo Reese PLT 254 103/ul Normal 150-450 [facility] Comment on above: Performed By: #### CBC #### [facility] [address] [place] [address] Dr. Camilo Reese RBC 4.62 106/ul Normal 4.20-5.40 [facility] Comment on above: Performed By: #### CBC #### [facility] [address] [address] [address] Camilo Reese WBC 4.2 103/ul Normal 4.0-11.0 [facility] Comment on above: Performed By: #### CBC #### [facility] [address] [address] [address] ABD/PELVIS WO CONon 02-18 CT ABD/PELVIS WO CON EXAMINATION: CT ABD/PELVIS WO CON, 02/18/2023 11:03 AM EDT HISTORY: Flank pain COMPARISON: None. TECHNIQUE: CT scan of the abdomen and pelvis was performed without IV contrast. CT dose reduction technique was used, including Automated Exposure Control. ABDOMEN/PELVIS FINDINGS: Lower Chest: Unremarkable. Liver: Normal nonenhanced appearance and contour. Biliary/Gallbladder: Unremarkable. Pancreas: Unremarkable. Spleen: Unremarkable. Adrenal Glands: Unremarkable. Kidneys: No renal calculus or hydronephrosis identified. Calcifications in the pelvis are favored to represent pelvic phleboliths. Gastrointestinal/Peritoneum: No acute abnormality. The appendix is not discretely visualized. No free air or free fluid. Vascular: Advanced atherosclerotic calcifications are present in the abdominal aorta.. Lymph Nodes: No enlarged lymph nodes by CT size criteria. Pelvic Organs: Unremarkable. Bladder: Unremarkable. Bones: No acute osseous abnormality. Mild to moderate multilevel degenerative changes present in the visualized spine. Soft tissues: Unremarkable. IMPRESSION: 1. No renal calculus or obstructive uropathy. 2. Calcifications in the pelvis are favored to represent pelvic phleboliths. Electronically authenticated by: ELIE NEVES Date: 2023-02-18 11:36 Normal [facility] ER URINE PROFILEon 3 Bilirubin Ql (U) SMALL Abnormal NEGATIVE [facility] Comment on above: Performed By: ###RORY FREEDMAN #### [facility] [address] [place] [address] Dr. Camilo Reese Clarity (U) CLEAR Normal CLEAR [facility] Comment on above: Performed By: #### RORY TALBERT #### [facility] [address] [place] [address] Dr. Camilo Reese Color (U) DK. YELLOW Normal YELLOW [facility] Comment on above: Performed By: #### ROBERT TALBERTR #### [facility] [address] [place] [address] Dr. Camilo CRONIN A micrscopic examina tion will be performed if indicated. Normal [facility] Comment on above: Performed By: #### GALI, ERUR #### [facility] [address] [place] [address] Dr. Camilo Reese Glucose Ql (U) Negative Normal NEGATIVE [facility] Comment on above: Performed By: #### GALI, ERUR #### [facility] [address] [place] [address] Dr. Camilo Reese Hemoglobin Ql (U) TRACE-INTACT Abnormal NEGATIVE [facility] Comment on above: Performed By: #### GALI ERUR #### [facility] [address] [place] [address] Dr. Camilo Reese Ketones Ql (U) TRACE Abnormal NEGATIVE [facility] Comment on above: Performed By: #### GALI, ERUR #### [facility] [address] [place] [address] Dr. Camilo Reese LEUKOCYTES Negative Normal NEGATIVE [facility] Comment on above: Performed By: #### GALI, ERUR #### [facility] [address] [place] [address] Dr. Camilo Reese Nitrite Ql (U) Negative Normal NEGATIVE [facility] Comment on above: Performed By: #### GALI, ERUR #### [facility] [address] [place] [address] Dr. Camilo Reese pH (U) 5.0 [pH] Normal 5-9 [facility] Comment on above: Performed By: #### GALI, ERUR #### [facility] [address] [place] [address] Dr. Camilo Reese SPEC GRAVITY >=1.030 Abnormal 1.005-<=1. 025 [facility] Comment on above: Performed By: #### UMICRO, ERUR #### [facility] [address] [place] [address] Dr. Camilo Reese UA PROTEIN Negative Normal NEGATIVE/ TRACE [facility] Comment on above: Performed By: #### GALI ERUR #### [facility] [address] [place] [address] Dr. Camilo Reese UR MICRO IND INDICATED Normal [facility] Comment on above: Performed By: #### GALI, ERUR #### [facility] [address] [place] [address] Dr. Camilo Reese Urobilinogen Qn (U) 0.2 {Alberta'U}/dL Normal 0.2 - 1.0 [facility] Comment on above: Performed By: #### ROBERT TALBERTR #### [facility] [address] [place] [address] Dr. Camilo Reese PROF 14(COMP METB)on 023 Albumin [Mass/Vol] 4.0 g/dL Normal 3.4-5.0 [facility] Comment on above: Performed By: #### CMP #### [facility] [address] [place] [address] Dr. Camilo Reese Albumin/Globulin [Mass ratio] 1.2 {ratio} Normal [facility] Comment on above: Performed By: #### CMP #### [facility] [address] [place] [address] Dr. Camilo Reese ALP [Catalytic activity/Vol] 69 U/L Normal 46-116 [facility] Comment on above: Performed By: #### CMP #### [facility] [address] [place] [address] Dr. Camilo Reese ALT [Catalytic activity/Vol] 18 U/L Normal 14-59 [facility] Comment on above: Performed By: #### CMP #### [facility] [address] [place] [address] Dr. Camilo Reese Anion gap [Moles/Vol] 11.7 mmol/L Normal [facility] Comment on above: Performed By: #### CMP #### [facility] [address] [address] [address] Camilo Reese AST [Catalytic activity/Vol] 21 U/L Normal 15-37 [facility] Comment on above: Performed By: #### CMP #### [facility] [address] [address] [address] Camilo Reese Bilirubin [Mass/Vol] 1.0 mg/dL Normal 0.2-1.0 [facility] Comment on above: Performed By: #### CMP #### [facility] [address] [address] [address] Camilo Reese Calcium [Mass/Vol] 9.1 mg/dL Normal 8.5-10.1 [facility] Comment on above: Performed By: #### CMP #### [facility] [address] [place] [address] Dr. Camilo Reese Chloride [Moles/Vol] 103 mmol/L Normal 98-107 [facility] Comment on above: Performed By: #### CMP #### [facility] [address] [address] [address] Camilo Reese CO2 [Moles/Vol] 28.7 mmol/L Normal 21.0-32.0 [facility] Comment on above: Performed By: #### CMP #### [facility] [address] [address] [address] Camilo Reese Creatinine [Mass/Vol] 0.95 mg/dL Normal 0.55-1.02 [facility] Comment on above: Performed By: #### CMP #### [facility] [address] [address] [address] Camilo Reese EGFR-AF CHADIAN >60 Normal >=60 [facility] Comment on above: Performed By: #### CMP #### [facility] [address] [address] [address] Camilo Reese EGFR-NON AF CHADIAN 59 mL/min/1.73m2 Critically low >=60 [facility] Comment on above: Performed By: #### CMP #### [facility] [address] [place] [address] Dr. Camilo Reese Globulin (S) [Mass/Vol] 3.4 g/dL Normal [facility] Comment on above: Performed By: #### CMP #### [facility] [address] [address] [address] Camilo Reese Glucose [Mass/Vol] 101 mg/dL Normal 74-106 [facility] Comment on above: Performed By: #### CMP #### [facility] [address] [address] [address] Camilo Reese Potassium [Moles/Vol] 3.4 mmol/L Critically low 3.5-5.1 [facility] Comment on above: Performed By: #### CMP #### [facility] [address] [address] [address] Camilo Reese Protein [Mass/Vol] 7.4 g/dL Normal 6.4-8.2 [facility] Comment on above: Performed By: #### CMP #### [facility] [address] [place] [address] Dr. Camilo Reese Sodium [Moles/Vol] 140 mmol/L Normal 136-145 [facility] Comment on above: Performed By: #### CMP #### [facility] [address] [address] [address] Camilo Reese Urea nitrogen [Mass/Vol] 17.0 mg/dL Normal 7.0-18.0 [facility] Comment on above: Performed By: #### CMP #### [facility] [address] [address] [address] Camilo Reese Urea nitrogen/Creatin ine [Mass ratio] 17.9 mg/mg Normal [facility] Comment on above: Performed By: #### CMP #### [facility] [address] [address] [address] Camilo Reese URINE MICROSCOPIC ONLYon BACTERIA TRACE Abnormal NONE SEEN [facility] Comment on above: Performed By: #### ROBERT TALBERTR #### [facility] [address] [address] [address] Camilo Reese Bacteria identified Cx Nom (U) NOT INDICATED Normal [facility] Comment on above: Performed By: #### UMICRO, ERUR #### [facility] [address] [address] [address] Camilo Reese CAST NONE SEEN Normal NONE SEEN [facility] Comment on above: Performed By: #### UMICRO, ERUR #### [facility] [address] [place] [address] Dr. Camilo Reese Crystals LM Nom (Urine sed) NONE SEEN Normal NONE SEEN [facility] Comment on above: Performed By: #### CHERISERO, ERUR #### [facility] [address] [place] [address] Dr. Camilo Reese Epithelial cells LM Ql (Urine sed) RARE Normal NONE SEEN /RARE [facility] Comment on above: Performed By: #### GALI, ERUR #### [facility] [address] [place] [address] Dr. Camilo Reese MUCOUS TRACE Abnormal NONE SEEN [facility] Comment on above: Performed By: #### GALI, ERUR #### [facility] [address] [place] [address] Dr. Camilo Reese RBC 0-2 Normal 0-2 [facility] Comment on above: Performed By: #### GALI, ERUR #### [facility] [address] [place] [address] Dr. Camilo Reese WBC NONE SEEN Normal NONE SEEN [facility] Comment on above: Performed By: #### GALI, ERUR #### [facility] [address] [place] [address] Dr. Camilo Reese US EXT NON VASC CMPLTon US EXT NON VASC CMPLT EXAMINATION: US EXT NON VASC CMPLT HISTORY: Vaginal pain ; small lump with brain/painful sensation anterior vaginal canal near the urethra COMPARISON: No relevant comparison available. FINDINGS: Ultrasound evaluation of vaginal canal demonstrates a dilated varicose vein with slow flow corresponding to patient's area of tenderness and palpable lump. IMPRESSION: 1. Dilated, but patent, varicose vein within anterior vaginal wall corresponding to patient's symptoms. Electronically authenticated by: DEREK MCCRAY Date: 2023-02-18 14:07 Normal [facility] Urinalysis - AUTOMATEDon Appearance (U) clear [employer] Other Bilirubin Ql (U) Negative [employer] Other Color (U) light yellow [employer] Other Glucose Ql (U) Negative [employer] Other Hemoglobin Ql (U) trace intact [employer] Other Ketones Ql (U) Negative [employer] Other Leukocyte esterase Test strip Ql (U) Negative [employer] Other Nitrite Ql (U) Negative [employer] Other pH (U) 6.0 [pH] [employer] Other Protein Ql (U) Negative [employer] Other Specific gravity (U) [Rel density] <1.005 [employer] Other Urobilinogen (U) [Mass/Vol] 0.2 mg/dL [employer] Other Urinalysis - AUTOMATED [employer] Other CBC AUTO DIFFon 11-01-2022 BASO # 0.1 103/ul Normal 0.0-0.1 [facility] Comment on above: Performed By: #### DATCBC #### [facility] [address] [place] [address] Dr. Camilo Reese Basophils/100 WBC (Bld) 1.3 % Normal 0.2-2.0 [facility] Comment on above: Performed By: #### DATCBC #### [facility] [address] [place] [address] Dr. Camilo Reese EO # 0.2 103/ul Normal 0.0-0.7 [facility] Comment on above: Performed By: #### DATCBC #### [facility] [address] [place] [address] Dr. Camilo Reese Eosinophils/100 WBC (Bld) 5.2 % Normal 0.9-7.0 [facility] Comment on above: Performed By: #### DATCBC #### [facility] [address] [place] [address] Dr. Camilo Reese Erythrocyte distribution width (RBC) [Ratio] 14.6 % Normal 11.0-15.0 [facility] Comment on above: Performed By: #### DATCBC #### [facility] [address] [place] [address] Dr. Camilo Reese Hematocrit (Bld) [Volume fraction] 42.9 % Normal 36.0-48.0 [facility] Comment on above: Performed By: #### DATCBC #### [facility] [address] [place] [address] Dr. Camilo Reese Hemoglobin (Bld) [Mass/Vol] 13.9 g/dL Normal 12.0-16.0 [facility] Comment on above: Performed By: #### DATCBC #### [facility] [address] [place] [address] Dr. Camilo Reese IG # 0.01 10e3/ul Normal 0.00-0.03 [facility] Comment on above: Performed By: #### DATCBC #### [facility] [address] [place] [address] Dr. Camilo Reese IG % 0.3 % Normal 0.0-0.5 [facility] Comment on above: Performed By: #### DATCBC #### [facility] [address] [place] [address] Dr. Camilo Reese LYMPH # 1.3 103/ul Normal 1.2-3.8 [facility] Comment on above: Performed By: #### DATCBC #### [facility] [address] [place] [address] Dr. Camilo Reese Lymphocytes/100 WBC (Bld) 33.6 % Normal 20.5-60.0 [facility] Comment on above: Performed By: #### DATCBC #### [facility] [address] [place] [address] Dr. Camilo Reese MCH (RBC) [Entitic mass] 28.7 pg Normal 26.7-34.0 [facility] Comment on above: Performed By: #### DATCBC #### [facility] [address] [place] [address] Dr. Camilo Reese MCHC (RBC) [Mass/Vol] 32.4 g/dL Normal 29.9-35.2 [facility] Comment on above: Performed By: #### DATCBC #### [facility] [address] [place] [address] Dr. Camilo Reese MCV (RBC) [Entitic vol] 88.5 fL Normal 81.0-99.0 [facility] Comment on above: Performed By: #### DATCBC #### [facility] [address] [place] [address] Dr. Camilo Reese MONO # 0.6 103/ul Normal 0.3-0.8 [facility] Comment on above: Performed By: #### DATCBC #### [facility] [address] [place] [address] Dr. Camilo Reese Monocytes/100 WBC (Bld) 15.0 % Critically high 1.7-12.0 [facility] Comment on above: Performed By: #### DATCBC #### [facility] [address] [place] [address] Dr. Camilo Reese NEUT # 1.7 103/ul Normal 1.4-6.5 [facility] Comment on above: Performed By: #### DATCBC #### [facility] [address] [place] [address] Dr. Camilo Reese Neutrophils/100 WBC (Bld) 44.6 % Normal 43.0-75.0 [facility] Comment on above: Performed By: #### DATCBC #### [facility] [address] [place] [address] Dr. Camilo Reese Platelet mean volume (Bld) [Entitic vol] 11.5 fL Normal 9.5-13.5 [facility] Comment on above: Performed By: #### DATCBC #### [facility] [address] [address] [address] Camilo Reese PLT 240 103/ul Normal 150-450 [facility] Comment on above: Performed By: #### DATCBC #### [facility] [address] [address] [address] Camilo Reese RBC 4.85 106/ul Normal 4.20-5.40 [facility] Comment on above: Performed By: #### DATCBC #### [facility] [address] [address] [address] Camilo Reese WBC 3.8 103/ul Critically low 4.0-11.0 [facility] Comment on above: Performed By: #### DATCBC #### [facility] [address] [place] [address] Dr. Camilo Reese DAMARIS- BMP WITH LIPIDon 2022 Anion gap [Moles/Vol] 10.7 mmol/L Normal [facility] Comment on above: Performed By: #### DATBMP #### [facility] [address] [place] [address] Dr. Camilo Reese Calcium [Mass/Vol] 9.1 mg/dL Normal 8.5-10.1 [facility] Comment on above: Performed By: #### DATBMP #### [facility] [address] [place] [address] Dr. Camilo Reese Chloride [Moles/Vol] 103 mmol/L Normal 98-107 [facility] Comment on above: Performed By: #### DATBMP #### [facility] [address] [place] [address] Dr. Camilo Reese Cholesterol [Mass/Vol] 216 mg/dL Critically high <=200 [facility] Comment on above: Performed By: #### DATBMP #### [facility] [address] [place] [address] Dr. Camilo Reese Cholesterol in HDL [Mass/Vol] 111 mg/dL Critically high 40-60 [facility] Comment on above: Performed By: #### DATBMP #### [facility] [address] [address] [address] Camilo Reese Cholesterol in LDL [Mass/Vol] 91.0 mg/dL Normal [facility] Comment on above: Performed By: #### DATBMP #### [facility] [address] [address] [address] Camilo Reese CO2 [Moles/Vol] 31.4 mmol/L Normal 21.0-32.0 [facility] Comment on above: Performed By: #### DATBMP #### [facility] [address] [address] [address] Camilo Reese Creatinine [Mass/Vol] 0.72 mg/dL Normal 0.55-1.02 [facility] Comment on above: Performed By: #### DATBMP #### [facility] [address] [address] [address] Camilo Reese EGFR-AF CHADIAN >60 Normal >=60 [facility] Comment on above: Performed By: #### DATBMP #### [facility] [address] [address] [address] Camilo Reese EGFR-NON AF CHADIAN >60 Normal >=60 [facility] Comment on above: Performed By: #### DATBMP #### [facility] [address] [address] [address] Camilo Reese Glucose [Mass/Vol] 89 mg/dL Normal 74-106 [facility] Comment on above: Performed By: #### DATBMP #### [facility] [address] [address] [address] Camilo Reese HDL NORMAL > or = 60 mg/dl - LO W CARDIOVASCULAR RISK <40 mg/dl - HIGH CARDIOVASCULAR RISK Normal [facility] Comment on above: Performed By: #### DATBMP #### [facility] [address] [address] [address] Camilo Reese LDL CALC NORMAL SEE BELOW Normal [facility] Comment on above: Result Comment: <100 mg/dl OPTIMAL 100 - 129 mg/dl NEAR OR ABOVE OPTIMAL 130 - 159 mg/dl BORDERLINE HIGH 160 - 189 mg/dl HIGH >190 mg/dl VERY HIGH Performed By: #### D ATBMP #### [facility] [address] [address] [address] Camilo Reese Potassium [Moles/Vol] 4.1 mmol/L Normal 3.5-5.1 [facility] Comment on above: Performed By: #### DATBMP #### [facility] [address] [address] [address] Camilo Reese Sodium [Moles/Vol] 141 mmol/L Normal 136-145 [facility] Comment on above: Performed By: #### DATBMP #### [facility] [address] [address] [address] Camilo Reese Triglyceride [Mass/Vol] 70 mg/dL Normal <=150 [facility] Comment on above: Performed By: #### DATBMP #### [facility] [address] [address] [address] Camilo Reese Urea nitrogen [Mass/Vol] 17.0 mg/dL Normal 7.0-18.0 [facility] Comment on above: Performed By: #### DATBMP #### [facility] [address] [address] [address] Camilo Reese Urea nitrogen/Creatin ine [Mass ratio] 23.6 mg/mg Normal [facility] Comment on above: Performed By: #### DATBMP #### [facility] [address] [address] [address] Camilo Reese VLDL CALC 14.0 mg/dL Normal [facility] Comment on above: Performed By: #### DATBMP #### [facility] [address] [address] [address] Camilo Reese MG MAMM SCREEN 3D CINTHYA CADon 08-13-2022 MG MAMM SCREEN 3D CINTHYA CAD Patient: ZAYNAB ZAIDI Exam Date: 08/13/2022 : 1955 Gender:F Ordering : DR AMMON LUCAS M.D. Admission #: [id number] Family : Order #: [id number] CLICK HERE TO VIEW EXAM RADIOLOGY REPORT PROCEDURE: MAMMOGRAM SCREENING 3D BILATERAL CAD COMPARISON: MG MAMM SCREEN CINTHYA W CAD, 08/10/2018. INDICATIONS: Screening mammography Calculator Name NCI Breast Cancer Risk Assessment Tool 5 Year Breast Cancer Risk 1.40% Lifetime Breast Cancer Risk 5.80% Personal Breast Cancer No Personal Ovarian Cancer No Treatments None Family Cancers None LOCATION: [facility] BREAST COMPOSITION: Scattered areas fibroglandular density. FINDINGS: DIAGNOSTIC CATEGORY 1--NEGATIVE. NO CHANGE FROM COMPARISON ASSESSMENT. Scattered benign-appearing calcifications are present. RIGHT BREAST: No significant suspicious finding. LEFT BREAST: No significant suspicious finding. RECOMMENDATIONS: ROUTINE MAMMOGRAM AND CLINICAL EVALUATION IN 12 MONTHS. PLEASE NOTE: A NORMAL MAMMOGRAM DOES NOT EXCLUDE THE POSSIBILITY OF BREAST CANCER. A CLINICALLY SUSPICIOUS PALPABLE LUMP SHOULD BE BIOPSIED. Dictated by: Boogie Mina MD on 08/13/2022 at 15:42 Approved by: Boogie Mina MD on 08/13/2022 at 15:43 Normal [facility] SARS-CoV-2 (COVID-19) RNA NA A+probe Ql (Resp)on 07-28-2022 SARS-CoV-2 (COVID-19) RNA CHLOE+probe Ql (Unsp spec) Negative [employer] Other CBC Without Differentialon 0 02-23-2022 Erythrocyte distribution width (RBC) [Ratio] 14.6 % Normal 11.9-15.3 [facility] Comment on above: Performed By: #### OUTREACH CMP, OUTREAC H LIPID, CBCNOOUTREACH #### [facility] [address] Hematocrit (Bld) [Volume fraction] 43.4 % Normal 34.0-46.4 [facility] Comment on above: Performed By: #### OUTREACH CMP, OUTREAC H LIPID, CBCNOOUTREACH #### [facility] [address] [id number] [place] Hemoglobin (Bld) [Mass/Vol] 14.3 g/dL Normal 11.8-15.4 [facility] Comment on above: Performed By: #### OUTREACH CMP, OUTREAC H LIPID, CBCNOOUTREACH #### [facility] [address] [phone] [place] MCH (RBC) [Entitic mass] 29.4 pg Normal 24.7-34.3 [facility] Comment on above: Performed By: #### OUTREACH CMP, OUTREAC H LIPID, CBCNOOUTREACH #### [address] MCV (RBC) [Entitic vol] 89.2 fL Normal 80-100 [facility] Comment on above: Performed By: #### OUTREACH CMP, OUTREAC H LIPID, CBCNOOUTREACH #### [address] Mean Corpuscular HGB Conc 33.0 g/dL Normal 32.0-35.0 [facility] Comment on above: Performed By: #### OUTREACH CMP, OUTREAC H LIPID, CBCNOOUTREACH #### [address] Platelet mean volume (Bld) [Entitic vol] 10.2 fL Normal 6.3-10.7 [facility] Comment on above: Result Comment: PERFORMED BY: [place] [address] PATHOLOGIST APPRAISAL MANAGER BRAD GARCÍA M.D. Performed By: #### O SARAH CMP, OUTREACH LIPID, CBCNOOUTREACH #### [address] Platelets (Bld) [#/Vol] 220 10*3/uL Normal 150-450 [facility] Comment on above: Performed By: #### OUTREACH CMP, OUTREAC H LIPID, CBCNOOUTREACH #### [address] RBC (Bld) [#/Vol] 4.86 10*6/uL Normal 3.60-5.00 [facility] Comment on above: Performed By: #### OUTREACH CMP, OUTREAC H LIPID, CBCNOOUTREACH #### [address] WBC (Bld) [#/Vol] 3.6 10*3/uL Low 3.8-11.6 [facility] Comment on above: Performed By: #### OUTREACH CMP, OUTREAC H LIPID, CBCNOOUTREACH #### [facility] [address] [place] [address] [place] CMP Outreachon 02-23-2022 Albumin [Mass/Vol] 4.0 g/dL Normal 3.2-5.5 [facility] Comment on above: Performed By: #### OUTREACH CMP, OUTREAC H LIPID, CBCNOOUTREACH #### [facility] [address] [place] [address] [place] ALP [Catalytic activity/Vol] 59 U/L Normal 32-92 [facility] Comment on above: Performed By: #### OUTREACH CMP, OUTREAC H LIPID, CBCNOOUTREACH #### [facility] [address] [place] [address] [place] ALT [Catalytic activity/Vol] 14 U/L Normal 10-60 [facility] Comment on above: Performed By: #### OUTREACH CMP, OUTREAC H LIPID, CBCNOOUTREACH #### [facility] Ctr [address] [place] [address] [place] AST [Catalytic activity/Vol] 22 U/L Normal 10-42 [facility] Comment on above: Performed By: #### OUTREACH CMP, OUTREAC H LIPID, CBCNOOUTREACH #### [facility] [address] [place] [address] [place] Bilirubin [Mass/Vol] 1.1 mg/dL Normal 0.3-1.2 [facility] Comment on above: Performed By: #### OUTREACH CMP, OUTREAC H LIPID, CBCNOOUTREACH #### [facility] [address] [place] [address] [place] Calcium [Mass/Vol] 9.7 mg/dL Normal 8.2-10.2 [facility] Comment on above: Performed By: #### OUTREACH CMP, OUTREAC H LIPID, CBCNOOUTREACH #### [facility] [address] [place] [address] [place] Chloride [Moles/Vol] 101 mmol/L Normal 95-114 [facility] Comment on above: Performed By: #### OUTREACH CMP, OUTREAC H LIPID, CBCNOOUTREACH #### [facility] [address] CO2 [Moles/Vol] 28.8 mmol/L Normal 22.0-30.0 [facility] Comment on above: Performed By: #### OUTREACH CMP, OUTREAC H LIPID, CBCNOOUTREACH #### [address] Creatinine [Mass/Vol] 0.75 mg/dL Normal 0.44-1.03 [facility] Comment on above: Performed By: #### OUTREACH CMP, OUTREAC H LIPID, CBCNOOUTREACH #### [address] Estimated GFR ( Annie > 60 Normal [facility] Comment on above: Result Comment: GFR estimated reference range: According to KDOQI guidelines, <60 ml/min/1.73m2 is sufficient to diagnose a patient with chronic kidney disease. Performed By: #### O UTREACH CMP, OUTREACH LIPID, CBCNOOUTREACH #### [address] Estimated GFR (Non- Am > 60 Normal [facility] Comment on above: Performed By: #### OUTREACH CMP, OUTREAC H LIPID, CBCNOOUTREACH #### [address] Glucose [Mass/Vol] 85 mg/dL Normal 70-100 [facility] Comment on above: Result Comment: Random Glucose Reference Range is dependent on time and content of last meal. Glucose of more than 200 mg/dL in a nonstressed, ambulatory subject supports the diagnosis of Diabetes Mellitus. ADA recommended reference range Performed By: #### O UTREACH CMP, OUTREACH LIPID, CBCNOOUTREACH #### [facility] [address] [place] [address] [place] Potassium [Moles/Vol] 4.4 mmol/L Normal 3.5-5.1 [facility] Comment on above: Performed By: #### OUTREACH CMP, OUTREAC H LIPID, CBCNOOUTREACH #### [facility] [address] [place] [address] [place] Protein [Mass/Vol] 6.8 g/dL Normal 6.1-7.9 [facility] Comment on above: Performed By: #### OUTREACH CMP, OUTREAC H LIPID, CBCNOOUTREACH #### [facility] [address] Sodium [Moles/Vol] 141 mmol/L Normal 136-146 [facility] Comment on above: Performed By: #### OUTREACH CMP, OUTREAC H LIPID, CBCNOOUTREACH #### [facility] [address] Urea nitrogen [Mass/Vol] 13 mg/dL Normal 9-23 [facility] Comment on above: Performed By: #### OUTREACH CMP, OUTREAC H LIPID, CBCNOOUTREACH #### [facility] [address] [place] [address] Lipid Profile Outreachon Cholesterol [Mass/Vol] 236 mg/dL High 140-200 [facility] Comment on above: Result Comment: Chol less than 200 mg/dl low risk Chol 201-239 mg/dl borderline risk Chol 240 mg/dl and greater high risk Performed By: #### O UTREACH CMP, OUTREACH LIPID, CBCNOOUTREACH #### [facility] [address] [place] [address] Cholesterol in HDL [Mass/Vol] 93 mg/dL High 35-85 [facility] Comment on above: Result Comment: HDL CHOL ATP-III CLASSIF ICATION Cardiovascular Risk HDL > or equal to 60 mg/dL LOW HDL < 40 mg/dL HIGH Performed By: #### O UTREACH CMP, OUTREACH LIPID, CBCNOOUTREACH #### [facility] [address] [place] [address] Cholesterol.tota l/Cholesterol in HDL [Mass ratio] 2.5 {ratio} Normal <5.0 [facility] Comment on above: Result Comment: PERFORMED BY: [place] [address] PATHOLOGIST APPRAISAL MANAGER BRAD GARCÍA M.D. Performed By: #### O UTREACH CMP, OUTREACH LIPID, CBCNOOUTREACH #### [facility] [address] LDL Cholesterol,Calc ulated 130 mg/dL High 0-100 [facility] Comment on above: Result Comment: LDL ATP III CLASSIFICATI ON LDL less than 100 mg/dL Optimal LDL 100-129 mg/dL Near or above optimal LDL 130-159 mg/dL Borderline high LDL 160-189 mg/dL High LDL greater than 189 mg/dL Very high Performed By: #### O UTREACH CMP, OUTREACH LIPID, CBCNOOUTREACH #### [facility] [address] Triglyceride w/Reflex 64 mg/dL Normal 35-149 [facility] Comment on above: Result Comment: TRIG ATP III CLASSIFICAT ION TRIG less than 150 mg/dL Normal TRIG 150-199 mg/dL Borderline high TRIG 200-500 mg/dL High TRIG greater than 500 mg/dL Very high Standard traceable to the Center for Disease Conrtrol and Prevention (CDC) test method. Performed By: #### O UTREACH CMP, OUTREACH LIPID, CBCNOOUTREACH #### [facility] [address] VLDL CHOLESTEROL 12 mg/dL Normal [facility] Comment on above: Performed By: #### OUTREACH CMP, OUTREAC H LIPID, CBCNOOUTREACH #### [facility] [address] Main OR Intraoperative Recor don 07-09-2018 Main OR Intraoperative Record IntraOp Document Type FT Summary Primary Physician: Joel Monroe MD Finalized Date/Time: 07/09/18 12:32:26 Pt. Name: ZAYNAB ZAIDI/Sex: 1955 Female Med Rec #: [id number] Physician: Joel Monroe MD Financial #: [id number] Pt. Type: A Room/Bed: Admit/Disch: 05/21/18 07:49:00 - 05/21/18 12:55:00 Institution: Case Times FT Entry 1 Patient Times In Room 05/21/18 10:37:00 Out Room 05/21/18 11:04:00 Procedure Times Start 05/21/18 10:51:00 Stop 05/21/18 10:59:00 Anesthesia Times Start 05/21/18 10:37:00 Stop 05/21/18 11:04:00 Last Modified By: Kira Carmona CST 05/21/18 11:04:30 General Comments: 05/22/2018 Chart opened to review and send charges Ambreen Carmona CST Case Attendance FT Entry 1 Entry 2 Entry 3 Case Attendee Richie FRITZ DO, Kian Monroe MD, Joel CARRILLO, RN, Ileana Role Performed Anesthesiologist of Surgeon - Primary Deckhand Clam Dredge - Primary Record Time In 05/21/18 10:37:00 05/21/18 10:37:00 05/21/18 10:37:00 Time Out 05/21/18 11:04:00 05/21/18 11:00:00 05/21/18 11:04:00 Procedure CYSTOSCOPY CYSTOSCOPY CYSTOSCOPY URETEROSCOPY(Left), URETEROSCOPY(Left), URETEROSCOPY(Left), CYSTOSCOPY STENT CYSTOSCOPY STENT CYSTOSCOPY STENT INSERTION(Left) INSERTION(Left) INSERTION(Left) Comments Last Modified By: Lauren CARRILLO, RN, Laurne CARRILLO, RN, Lauren CARRILLO, RN, Ileana 05/21/18 11:08:42 Ileana 05/21/18 11:08:42 Ileana 05/21/18 11:08:42 Entry 4 Entry 5 Entry 6 Case Attendee Rosie RN, CNOR, Pura Gutierrez CST, Giancarlo Villarreal Role Performed Medical Genetics Director Scrub - Primary Plug Sorter Time In 05/21/18 10:37:00 05/21/18 10:37:00 05/21/18 10:45:00 Time Out 05/21/18 11:04:00 05/21/18 11:04:00 05/21/18 11:04:00 Procedure CYSTOSCOPY CYSTOSCOPY CYSTOSCOPY URETEROSCOPY(Left), URETEROSCOPY(Left), URETEROSCOPY(Left) CYSTOSCOPY STENT CYSTOSCOPY STENT INSERTION(Left) INSERTION(Left) Comments Last Modified By: Lauren CARRILLO, RN, Lauren CARRILLO, RN, Lauren CARRILLO, RN, Ileana 05/21/18 11:08:42 Ileana 05/21/18 11:08:42 Ileana 05/21/18 11:08:42 Perioperative Protocols FT Pre-Care Text: Implements protective measures prior to operative or invasive procedure, confirms identity before the operative or invasive procedure, verifies operative procedure, surgical site, and laterality Entry 1 Procedure(s) CYSTOSCOPY Patient Identity Birthday, ID Band URETEROSCOPY(Left), Verified (select at Check, Patient CYSTOSCOPY STENT least 2): Participation INSERTION(Left) Consents / H and P Anesthesia Consent, Operative Site N/A Verified HandP, Surgery/Procedure Marking Verified Consent Surgical Site Yes Laterality Verified Yes Verified Procedure Verified Yes Correct Patient Yes Position Verified Availability Equipment, Implant, Prep Dry n/a Verified (If Medication, X-ray Applicable) PreOp Antibiotic Yes Time Out Richie FRITZ DO, Fer Wasserman MD, Joel Gonzalez, Lauren CARRILLO, RN, Rosie Tejeda RN, AMOSOR, Pura Ann, Marry Gutierrez CST Time Out Complete 05/21/18 10:50:00 Outcomes Met? Yes Last Modified By: Lauren CARRILLO, Ileana CONTRERAS 05/21/18 10:58:40 Post-Care Text: The patient is free from signs and symptoms of injury caused by extraneous objects Allergy Information FT Pre-Care Text: Verifies allergies Entry 1 Allergies Reviewed? Yes Allergies Reviewed Self/Patient With Outcomes Met? Yes Last Modified By: Rosie CONTRERAS, LAURIE, Pura Ann 05/21/18 10:40:58 Post-Care Text: The patient received appropriate medication(s) safely administered during the perioperative period Surgical Procedures FT Entry 1 Entry 2 Procedure Description Procedure CYSTOSCOPY URETEROSCOPY CYSTOSCOPY STENT INSERTION Modifiers Left Left Surgeon Description CYSTOSCOPY with left CYSTOSCOPY with left retrograde retrograde Primary Procedure Yes No Primary Surgeon Fer GARZA, Joel Monroe MD, Joel Gonzalez Start 05/21/18 10:51:00 05/21/18 10:51:00 Stop 05/21/18 10:59:00 05/21/18 10:59:00 Anesthesia Type General General Surgical Service Urology Urology Wound Class 2 - Clean-Contaminated 2 - Clean-Contaminated Last Modified By: Lauren CARRILLO, DIANE, Lauren CARRILLO, Ileana CONTRERAS 05/21/18 11:09:16 Ileana 05/21/18 11:09:16 General Case Data FT Pre-Care Text: Classifies surgical wound, implements aseptic technique, initiates traffic control Entry 1 Case Information OR OR 1 FT Case Level Level 3 Wound Class 2 - Clean-Contaminated Specialty Urology ASA Class 2 Preop Diagnosis KIDNEY STONE LEFT Postop Same As Preop No Postop Diagnosis no kidney stone seen Outcomes Met? Yes Last Modified By: Lauren CARRILLO RN, Kelly 05/21/18 10:59:21 Post-Care Text: The patient is free from signs and symptoms of infection Skin Assessment (Pre Procedure) FT Pre-Care Text: Implements protective measures to prevent skin/ tissue injury due to thermal or mechanical sources Evaluates for signs and symptoms of physical injury to skin and tissue Entry 1 Skin Integrity Intact, [place], Warm, and Skin Abnormality No Dry Outcomes Met? Yes Last Modified By: Rosie CONTRERAS, Pura SULLIVAN 05/21/18 10:41:28 Post-Care Text: The patient is free from signs and symptoms of injury caused by extraneous objects Patient Positioning FT Pre-Care Text: Identifies physical alterations that require additional precautions for procedure-specific positioning, verifies presence of prosthetics or corrective devices, positions the patient, evaluates the patient for signs and symptoms of injury as a result of positioning Entry 1 Procedure CYSTOSCOPY Body Position Low Lithotomy URETEROSCOPY(Left), CYSTOSCOPY STENT INSERTION(Left) Feet Uncrossed? Yes Left Arm Position Extended on Padded Arm Board Right Arm Position Extended on Padded Arm Left Leg Position Secured in Stirrup Board Right Leg Position Secured in Stirrup Positioning Device Stirrups Yellow Fins, Pillow Under Head Large Press Points Checked Yes By Kian Quiroz JR, DO, Weisenburger BSN, DIANE, Fer Tejeda MD, Joel Gonzalez Outcomes Met? Yes Last Modified By: Lauren CARRILLO, Ileana CONTRERAS 05/21/18 10:58:40 Post-Care Text: The patient is free from signs and symptoms of injury related to positioning Patient Care Devices FT Pre-Care Text: Implements protective measures to prevent skin/ tissue injury due to thermal or mechanical sources Entry 1 Entry 2 Entry 3 Equipment Type C-ARM[F] LASER HOMIUM[F] MISTRAL FORCED AIR WARMING SYSTEM UNIT[F] Equipment Number [id number] Equipment Setting high Outcomes Met? Yes Yes Yes Last Modified By: Rosie CONTRERAS, LAURIE, Pura Velez RN, AMOSORPura RN, CNOR, Pura Ann 05/21/18 10:42:45 05/21/18 10:42:45 05/21/18 10:42:45 Entry 4 Entry 5 Entry 6 Equipment Type MONITOR CHARGE SURGERY SUELLEN SUCTION UNIT [F] PADDED STIRRUPS [F] [F] Equipment Number Equipment Setting Outcomes Met? Yes Yes Yes Last Modified By: AMOS Velez RNORPura RN, CNORPura RN, CNOR, Lou Ann 05/21/18 10:42:45 05/21/18 10:42:45 05/21/18 10:42:45 Entry 7 Entry 8 Equipment Type VENA FLOW UNIT[F] VIDEO SYSTEM[F] Equipment Number Equipment Setting Outcomes Met? Yes Yes Last Modified By: LAURIE Velez RN, Lou Ann Blank RN, CNOR, Lou Ann 05/21/18 10:42:45 05/21/18 10:42:45 Post-Care Text: The patient is free from signs and symptoms of injury caused by extraneous objects Transport To OR FT Pre-Care Text: Transports according to individual needs. Evaluates for signs and symptoms of skin and tissue injury as a result of transfer or transport Entry 1 Via Cart By Lauren CARRILLO RN, Kelly Safety Precautions Side Rails Up Outcomes Met? Yes Last Modified By: LAURIE Velez RN, Lou Ann 05/21/18 10:42:59 Post-Care Text: The patient is free from signs and symptoms of injury related to transfer/transport Counts Verification FT Pre-Care Text: Performs required counts Entry 1 Procedure(s) CYSTOSCOPY Type Initial URETEROSCOPY(Left), CYSTOSCOPY STENT INSERTION(Left) Items Instruments Status Correct By Marry Gutierrez CST Outcomes Met? Yes Last Modified By: Lauren CARRILLO RN, Kelly 05/21/18 10:58:38 Post-Care Text: The patient is free from signs and symptoms of injury caused by extraneous objects Skin Prep FT Pre-Care Text: Performs skin preparations Entry 1 Procedure CYSTOSCOPY Prep Area perineum URETEROSCOPY(Left), CYSTOSCOPY STENT INSERTION(Left) Prep Agents Betadine Solution Hair Removal Methods Not Indicated By Joel Monroe MD Outcomes Met? Yes Last Modified By: Lauren CARRILLO RN, Kelly 05/21/18 10:58:41 Post-Care Text: The patient is free from signs and symptoms of infection Departure From OR FT Pre-Care Text: Transports according to individual needs. Evaluates for signs and symptoms of skin and tissue injury as a result of transfer or transport. Entry 1 Via Cart Safety Precautions Side Rails Up PostOp Destination PACU Transported By Luaren CARRILLO RN, Kelly Patient Status Stable Skin. Condition Intact, [place], Warm, and Dry Airway Maintenance Oxygen in Use? Yes Airway Device Nasal Cannula Flow Rate 6 L Outcomes Met? Yes Last Modified By: LAURIE Velez RN, Lou Ann 05/21/18 10:43:49 Post-Care Text: The patient is free from signs and symptoms of injury related to transfer/transport General Comments: report given to pacu staff Medication Administration FT Pre-Care Text: Verifies allergies, administers prescribed medications and solutions, administers prescribed antibiotic therapy and immunizing agents as ordered, evaluates response to medications Administers prescribed medications and solutions Entry 1 Expiration Date Yes Outcomes Met? Yes Verified Last Modified By: LAURIE Velez RN, Lou Ann 05/21/18 10:43:57 Post-Care Text: The patient received appropriate medication(s) safely administered during the perioperative period For Moralez-Bethel please see scanned medication reconcilliation form for medications used at the field during the procedure. X-Rays and Images FT Pre-Care Text: Assess history of previous radiation exposure and implements protective measures Entry 1 X-Ray Type C-Arm Contrast Used? Yes Outcomes Met? Yes Last Modified By: LAURIE Velez RN, Lou Ann 05/21/18 10:44:21 Post-Care Text: The patient is free from signs and symptoms of radiation injury Temperature Control Entry 1 Temperature Control BLANKET MISTRAL AIR Quantity 1 Aid TORSO [[id number]][F] Fluid/[place] Unit Mistral warming system Setting high Body Site Upper anterior torso Last Modified By: Lauren CARRILLO RN, Kelly 05/21/18 10:54:28 Case Comments Finalized By: Lauren CARRILLO RN, Kelly Document Signatures Signed By: Lauren CARRILLO RN, Kelly 05/21/18 11:09 Lauren CARRILLO RN, Kelly 05/21/18 11:09 Kira Carmona CST 05/22/18 09:27 Lauren CARRILLO RN, Kelly 07/09/18 12:32 Normal [facility] Coding Summary.on 05-25-2018 Coding Summary. CODING DATE: 018 FINAL [facility] STATUS: Home (Routine DC) PAYOR: Commercial Insurance APC DESCRIPTION 5373 Level 3 Urology and Related Services ADMIT DX: REASON FOR VISIT DX: N13.2 Hydronephrosis with renal and ureteral calculous obstruction FINAL DX: PRINCIPAL: N13.2 Hydronephrosis with renal and ureteral calculous obstruction SECONDARY: M54.5 Low back pain R10.30 Lower abdominal pain, unspecified R35.1 Nocturia R30.0 Dysuria Z87.440 Personal history of urinary (tract) infections Z87.891 Personal history of nicotine dependence PYMT PROC APC STAT DESCRIPTION DOCTOR NAME DATE [id number] J1 Cystourethroscopy, with Fer GARZA, Joel Gonzalez 05/21/2018 ureteral catheterization, with or without irrigation, instillation, or ureteropyelography, exclusive of radiologic service; [id number] Anesthesia for 05/21/2018 transurethral procedures (including urethrocystoscopy); not otherwise specified NOTE: The code number assigned matches the documented diagnosis and / or procedure in the patient's chart. However, the narrative phrase printed from the coding software may appear abbreviated, or result in slightly different terminology. Revised Coded By: Lanny Lazcano Revised Date Saved: 05/25/2018 02:20 pm Normal [facility] Operative Reporton 08-10-201 8 Operative Report Date of Surgery: 05/21/2018SURGEON: Joel Monroe M.D.PREOPERATIVE DIAGNOSIS: N13.2 left hydronephrosis with left ureteralcalculusPOSTOPERATIVE DIAGNOSIS: N13.2 left hydronephrosis with left ureteralcalculusOPERATION: Cystoscopy, left retrograde pyelogramCOMPLICATIONS: NoneANESTHESIA: General by laryngeal mask airwayANESTHESIOLOGIST: Shira Quiroz Jr., D.O.FINDINGS: No evidence of ureteral stone or obstructionINDICATIONS: Mrs. Zaidi is a 62 year old female who [facility] with ongoing severe left-sided inguinal/vaginal pain. She had beenin the Emergency Room where a computerized tomography scan had beenperformed showing left-sided hydronephrosis and a 3 mm left ureterovesicaljunction stone. She was given the options and wished to proceed throughthe weekend to see if she could pass this stone on her own. The pain haspersisted. She presents today for cystoscopy, retrograde pyelogram andpossible ureteroscopy and stone extraction.She is well aware of the risks, benefits, details of this procedureincluding risk of bleeding, infection, possible need for stent. Despitethese risks among others she wants to proceed.PROCEDURE: She is then brought back to the Operating Room and aftersuccessful induction of general anesthesia by laryngeal mask airway by she is positioned in a modified dorsal lithotomy position, preppedin the usual fashion with Betadine solution and 2% Xylocaine Jelly isplaced per urethra. A well lubricated 22 Iraqi cystourethroscope with 30degree lens is then passed into the bladder. Moderately tight through theurethra upon passage. Once into the bladder panendoscopy reveals no tumors,no stones, no diverticula. The orifices are normal x2. Specifically thereis absolutely no left-sided ureteral inflammation. There is no erythema.There is nothing to suggest recent passage of a stone. A left retrogradepyelogram was then performed utilizing a 6 Iraqi open-ended ureteralcatheter. The ureter is completely normal up to the level of the kidneys.There is no pelvicalyceal dilatation. There is no filling defect withinthe urinary collecting system at all. The retrograde pyelogram was repeatedthree times with similar findings. Contrast was seen to exit down theureter and into the bladder without obstruction. I did not feel that therewas any need for ureteroscopy. I should note that on the preoperative KUBthere were three possible candidate calcifications which could have beenwithin the ureter. None of these are within the ureter and all appear to beoutside perhaps phleboliths.Having found nothing of significance the bladder is emptied, scope isremoved. Pelvic examination is performed. The uterus and adnexa arepalpably within normal limits. There are no masses. The uterus ismovable. She tolerates the procedure well, was transferred [facility] then back to Post-Anesthesia Care Unit in a satisfactory condition,stable vital signs.The plan is for discharge home with plans to follow up in the EmergencyRoom should her pain persist. She currently has no primary care physicianas she has not yet seen Dr. Lucas. I discussed all this with the patient'shusband postoperatively. At this point despite the computerized tomographyscan findings I can find no urologic etiology for her continued pain anddiscomfort. My plan will be to see her in the office in six months with aKUB.Joel Monroe M.D.lkrDictated: 05/21/2018 #[id number]: 05/22/2018 #[id number]: Steve Tinajero M.D. [facility] Comment on above: Result Comment: Electronically Signed By : Joel Monroe MD\.br\Date and Time Signed: 05/22/18 16:45 EDT Inpatient Patient Summaryon 05-21-2018 Inpatient [facility] Dis[facility] InstructionsPERSON INFORMATION Name: ZAYNAB ZAIDI PHYSICIANS Admitting Physician: Joel Monroe MDAttending Physician: Joel Monroe MD PCP: Lewis LUCAS MD Diagnosis: Hydronephrosis with ureteral calculus Comment: PATIENT EDUCATION INFORMATIONInstructions:Medicat ion Leaflets:Follow up:With: Address: When: Joel Alfaro [facility], [address], [place] [id number] [facility] (1) In 6 months 11/21/2018 Comments: Please have my office arrange for an abdominal X-ray before your visit (looking for stones in the kidneys) MEDICATION LISTComment: [facility] Main OR PACU I [place]ordon Main OR PACU I Record PACU Phase I Document Type FT Summary Primary Physician: Joel Monroe MD Finalized Date/Time: 05/21/18 12:01:48 Pt. Name: ZAYNAB ZAIDI D.O.B./Sex: 1955 Female Med Rec #: [id number] Physician: Joel Monroe MD Financial #: [id number] Pt. Type: A Room/Bed: 02/ Admit/Disch: 05/21/18 07:49:37 - Institution: Case Times PACU I FT Pre-Care Text: Identifies barriers to communication and implements measures to provide psychological support Develops individualized plan of care, and ensures continuity of care Maintains patient's dignity and privacy, and maintains patient confidentiality Identifies and reports philosophical, cultural, and spiritual beliefs and values Identifies individual values and wishes concerning care Implements aseptic technique, and administers prescribed antibiotic therapy and immunizing agents as ordered Evaluates postoperative tissue perfusion Implements thermoregulation measures, and monitors body temperature Evaluates postoperative respiratory status Evaluates postoperative cardiac status Evaluates postoperative neurological status Assesses pain control, collaborated in initiating patient-controlled analgesia and implements alternative methods of pain control Verifies allergies, administers prescribed medications and solutions, evaluates response to medications Entry 1 In PACU I 05/21/18 11:06:00 Discharge from PACU 05/21/18 11:53:00 I Outcomes Met? Yes Last Modified By: Alisa Grider RN 05/21/18 12:01:38 Post-Care Text: The patient demonstrates knowledge of the expected response to the operative or invasive procedure The patient's care is consistent with the individualized perioperative plan of care The patient's right to privacy is maintained The patient's value system, lifestyle, ethnicity, and culture are considered, respected, and incorporated into the perioperative plan of care The patient participates in decisions affecting his or her perioperative plan of care The patient is free from signs and symptoms of infection The patient has wound/tissue perfusion consistent with or improved from baseline levels established preoperatively The patient is at or returning to normothermia at the conclusion of the immediate postoperative period The patient's respiratory function is consistent with or improved from baseline levels established preoperatively The patient's cardiovascular status is consistent with or improved from baseline levels established preoperatively The patient's cardiovascular status is consistent with or improved from baseline levels established preoperatively The patient demonstrates and/or reports adequate pain control throughout the perioperative period The patient received appropriate medication(s), safely administered during the perioperative period Acuity Level PACU I FT Entry 1 Start Time 05/21/18 11:06:00 Stop Time 05/21/18 11:53:00 Acuity Level Acuity Level I Last Modified By: Alisa Grider RN 05/21/18 12:01:45 Finalized By: Alisa Grider RN Document Signatures Signed By: Alisa Grider RN 05/21/18 12:01 [facility] Main OR PACU II [facility] Main OR PACU II Record PACU Phase II Document Type FT Summary Primary Physician: Joel Monroe MD Finalized Date/Time: 05/21/18 13:41:43 Pt. Name: ZAYNAB ZAIDI /Sex: 1955 Female Med Rec #: [id number] Physician: Joel Monroe MD Financial #: [id number] Pt. Type: A Room/Bed: [facility]/ Admit/Disch: 05/21/18 07:49:37 - Institution: Case Times PACU II FT Pre-Care Text: Identifies barriers to communication and implements measures to provide psychological support and determines knowledge level Develops individualized plan of care, and ensures continuity of care Maintains patient's dignity and privacy, and maintains patient confidentiality Identifies and reports philosophical, cultural, and spiritual beliefs and values Identifies individual values and wishes concerning care administers prescribed antibiotic therapy and immunizing agents as ordered, Evaluates postoperative tissue perfusion Implements thermoregulation measures, and monitors body temperature Evaluates postoperative respiratory status Evaluates postoperative cardiac status Evaluates postoperative neurological status Assesses pain control, collaborated in initiating patient-controlled analgesia and implements alternative methods of pain control Verifies allergies, administers prescribed medications and solutions, evaluates response to medications Entry 1 In PACU II 05/21/18 11:55:00 Discharge from PACU 05/21/18 12:55:00 II Outcomes Met? Yes Last Modified By: Almita Poe RN 05/21/18 13:41:40 Post-Care Text: The patient demonstrates knowledge of the expected response to the operative or invasive procedure The patient's care is consistent with the individualized perioperative plan of care The patient's right to privacy is maintained The patient's value system, lifestyle, ethnicity, and culture are considered, respected, and incorporated into the perioperative plan of care The patient participates in decisions affecting his or her perioperative plan of care. The patient is free from signs and symptoms of infection The patient has wound/tissue perfusion consistent with or improved from baseline levels established preoperatively The patient is at or returning to normothermia at the conclusion of the immediate postoperative period The patient's respiratory function is consistent with or improved from baseline levels established preoperatively The patient's cardiovascular status is consistent with or improved from baseline levels established preoperatively The patient's neurological status is consistent with or improved from baseline levels established preoperatively The patient demonstrates and/or reports adequate pain control throughout the perioperative period The patient received appropriate medication(s), safely administered during the perioperative period Finalized By: Almita Poe RN Document Signatures Signed By: Almita Poe RN 05/21/18 13:41 Normal [facility] Main OR Preoperative Recordo n 05-21-2018 Main OR Preoperative Record PreOp Document Type FT Summary Primary Physician: Joel Monroe MD Finalized Date/Time: 05/21/18 10:37:48 Pt. Name: ZAYNAB ZAIDI /Sex: 1955 Female Med Rec #: [id number] Physician: Joel Monroe MD Financial #: [id number] Pt. Type: A Room/Bed: [place] [address] Admit/Disch: 05/21/18 07:49:37 - Institution: Case Times PreOp FT Pre-Care Text: Verifies consent for planned procedure, identifies individual values and wishes concerning care, includes family members in perioperative teaching Entry 1 Patient Times. In Pre Surgery 05/21/18 08:00:00 Out Pre Surgery 05/21/18 10:35:00 Outcomes Met? Yes Last Modified By: LAURIE Velez RN, Lou Ann 05/21/18 10:37:29 Post-Care Text: The patient participates in decisions affecting his or her perioperative plan of care Finalized By: LAURIE Velez RN, Lou Ann Document Signatures Signed By: LAURIE Velez RN, Lou Ann 05/21/18 10:37 LAURIE Velez RN, Lou Ann 05/21/18 10:[address] [facility] Patient Education - Texton 0 05-21-2018 Patient Education - Text Normal [facility] Progress Note-Physicianon Protein mass conc Patient: ZAYNAB ZAIDI Age: 62 years Sex: Female : 1955 Associated Diagnoses: None Author: Kian Quiroz JR, DO Postoperative Information Post Operative Note: Post Anesthesia Care Unit. Anesthetic utilized: General, Monitored anesthesia care. Health Status Allergies: Allergic Reactions (Selected)SevereAmoxicillin- Rash.Bee Stings- Redness.Clindamycin- Rash.Doxycycline- Stomach upset.Penicillins- Rash. Current medications: (Selected) Inpatient CklliribljhHiebrjsT2WG 1000 mL Soln-IV 1,000 mL: 1,000 mL, IV, 150 mL/hr, Routine, Start date 05/21/18 8:45:00 EDT, 6.7 hour(s), Total volume (mL): 1,000Documented MedicationsDocumentedMacrobid: 100 mg, Oral, BID, Refills(s) 0, Bladder problemsVicodin: 1 tab(s), Oral, q4hr as needed for pain, Refill(s) 0, Painibuprofen 800 mg Tab: 800 mg = 1 tab(s), Oral, TID, PRN as needed for pain, Refills(s) 0, Pain Problem list: All ProblemsKidney stone on left side / SNOMED CT 226100501 / ConfirmedArthritis / SNOMED CT 8129917 / Confirmed Physical Examination Intake and Output Denies significant n/v and is tolerating p.o. Vital Signs (last 24 hrs) Last Charted Temp Oral 36.9 DegC (MAY 21 12:55)Heart Rate Apical 70 bpm (MAY 21 09:00)Resp Rate 16 br/min (MAY 21 12:55)SBP 138 mmHg (MAY 21 12:55)DBP 81 mmHg (MAY 21 12:55)SpO2 99 % (MAY 21 12:) Pain assessment: Pain Assessment 05/21/2018 12:55 EDT Preliminary Pain Scale 3 05/21/2018 12:55 EDT Pain Symptoms Self Report Yes, able to self report (Modified) Patient Preferred Pain Tool Numeric rating Numeric Pain Scale 3 Numeric Pain Score 3 05/21/2018 11:57 EDT Preliminary Pain Scale 0 05/21/2018 11:57 EDT Pain Symptoms Self Report No, able to self report Patient Preferred Pain Tool Numeric rating Numeric Pain Scale 0 = No pain Numeric Pain Score 0 05/21/2018 11:50 EDT Pain Symptoms Self Report No, able to self report Patient Preferred Pain Tool Numeric rating Numeric Pain Scale 0 = No pain Numeric Pain Score 0 05/21/2018 11:15 EDT Pain Symptoms Self Report No, able to self report Patient Preferred Pain Tool Numeric rating Numeric Pain Scale 0 = No pain Numeric Pain Score 0 05/21/2018 08:12 EDT Preliminary Pain Scale 6 05/21/2018 08:12 EDT Pain Symptoms Self Report Yes, able to self report Primary Pain Location Uterine Primary Pain Laterality Left Primary Pain Quality Burning, Cramping Patient Preferred Pain Tool Numeric rating Numeric Pain Scale 6 Numeric Pain Score 6 . Respiratory: Adequate air exchange with congregational of preoperative function.. Cardiovascular: Cardiovascular function is stable and has returned to preoperative levels.. Neurologic: Pt has returned to preoperative baseline.. Review / Management Condition: Stable. Assessment Anesthetic outcome No anesthetic complications noted. Plan Transfer/ Discharge: Patient can be discharged from PACU when criteria met. Condition good. Normal [facility] Comment on above: Result Comment: Electronically Signed By : Kian Quiroz JR, DO\.br\Date and Time Signed: 05/21/18 16:05 EDT Protein mass conc Patient: ZAYNAB ZAIDI Age: 62 years Sex: Female : 1955 Associated Diagnoses: None Author: Kian Quiroz JR, DO Postoperative Information Post Operative Note: Post Anesthesia Care Unit. Anesthetic utilized: General, Monitored anesthesia care. Health Status Allergies: Allergic Reactions (Selected)SevereAmoxicillin- Rash.Bee Stings- Redness.Clindamycin- Rash.Doxycycline- Stomach upset.Penicillins- Rash. Current medications: (Selected) Inpatient QuobkusqwqbGwdvycnF6IQ 1000 mL Soln-IV 1,000 mL: 1,000 mL, IV, 150 mL/hr, Routine, Start date 05/21/18 8:45:00 EDT, 6.7 hour(s), Total volume (mL): 1,000Dilaudid 2 mg Injection: 0.4 mg = 0.2 mL, Injection, IV Push, q4min PRN Pain for 8 hour(s), Stop date 05/21/18 18:18:00 EDT, Routine, Start date 05/21/18 10:19:00 EDTLactated Ringers IV Julianna 1000 mL 1,000 mL: 1,000 mL, IV, 100 mL/hr, Routine, Start date 05/21/18 10:19:00 EDT, 10 hour(s), Total volume (mL): 1,000Phenergan 25 mg/mL Injection: 12.5 mg = 0.5 mL, Injection, IV Push, q2min PRN Other (see comment) for 2 dose(s), Stop date Limited # of times, Routine, Start date 05/21/18 10:19:00 EDTDocumented MedicationsDocumentedMacrobid: 100 mg, Oral, BID, Refills(s) 0, Bladder problemsVicodin: 1 tab(s), Oral, q4hr as needed for pain, Refill(s) 0, Painibuprofen 800 mg Tab: 800 mg = 1 tab(s), Oral, TID, PRN as needed for pain, Refills(s) 0, Pain Problem list: All ProblemsKidney stone on left side / SNOMED CT 161926567 / ConfirmedArthritis / SNOMED CT 5658370 / Confirmed Physical Examination Intake and Output Denies significant n/v and is tolerating p.o. Vital Signs (last 24 hrs) Last Charted Temp Oral 36.6 DegC (MAY 21 08:12)Heart Rate Apical 70 bpm (MAY 21 09:00)Resp Rate 16 br/min (MAY 21 08:12)SBP H 147 mmHg (MAY 21 09:50)DBP 75 mmHg (MAY 21 09:50)SpO2 98 % (MAY 21 08:14) Pain assessment: Pain Assessment 05/21/2018 08:12 EDT Preliminary Pain Scale 6 05/21/2018 08:12 EDT Pain Symptoms Self Report Yes, able to self report Primary Pain Location Uterine Primary Pain Laterality Left Primary Pain Quality Burning, Cramping Patient Preferred Pain Tool Numeric rating Numeric Pain Scale 6 Numeric Pain Score 6 . Respiratory: Adequate air exchange with congregational of preoperative function.. Cardiovascular: Cardiovascular function is stable and has returned to preoperative levels.. Neurologic: Pt has returned to preoperative baseline.. Review / Management Condition: Stable. Assessment Anesthetic outcome No anesthetic complications noted. Plan Transfer/ Discharge: Patient can be discharged from PACU when criteria met. Condition good. Normal [facility] Protein mass conc Patient: ZAYNAB ZAIDI Age: 62 years Sex: Female : 1955 Associated Diagnoses: None Author: Kian Quiroz JR, DO Preoperative Information Anesthesia history: Patient History: Pt./ family denies any personal or family hx of problems/difficulties with anesthesia.. Re-eval prior to induction: Inital eval reviewed: No significant interval change, NPO 10 hours.. Review of Systems Constitutional: See nursing assessment.. Cardiovascular: Cardiac risk assessment performed. Pt. denies any significant change in their cv hx.. Respiratory: Pt. denies any signicant change in their respiratory status.. Neurologic: Pt. denies any acute neurological changes.. Health Status Allergies: Allergic Reactions (Selected)SevereAmoxicillin- Rash.Bee Stings- Redness.Clindamycin- Rash.Doxycycline- Stomach upset.Penicillins- Rash., Allergies (5) Active Reactionamoxicillin RashBee Stings Rednessclindamycin Rashdoxycycline Stomach upsetpenicillins Rash Current medications: (Selected) Inpatient LaugmcdhylrUjltukbN0BO 1000 mL Soln-IV 1,000 mL: 1,000 mL, IV, 150 mL/hr, Routine, Start date 05/21/18 8:45:00 EDT, 6.7 hour(s), Total volume (mL): 1,000Dilaudid 2 mg Injection: 0.4 mg = 0.2 mL, Injection, IV Push, q4min PRN Pain for 8 hour(s), Stop date 05/21/18 18:18:00 EDT, Routine, Start date 05/21/18 10:19:00 EDTLactated Ringers IV Julianna 1000 mL 1,000 mL: 1,000 mL, IV, 100 mL/hr, Routine, Start date 05/21/18 10:19:00 EDT, 10 hour(s), Total volume (mL): 1,000Phenergan 25 mg/mL Injection: 12.5 mg = 0.5 mL, Injection, IV Push, q2min PRN Other (see comment) for 2 dose(s), Stop date Limited # of times, Routine, Start date 05/21/18 10:19:00 EDTDocumented MedicationsDocumentedMacrobid: 100 mg, Oral, BID, Refills(s) 0, Bladder problemsVicodin: 1 tab(s), Oral, q4hr as needed for pain, Refill(s) 0, Painibuprofen 800 mg Tab: 800 mg = 1 tab(s), Oral, TID, PRN as needed for pain, Refills(s) 0, Pain, Medications (4) ActiveScheduled: (0)Continuous: (2)Dextrose 5% in Lactated Ringers 1,000 mL 1,000 mL, IV, 150 mL/hrLactated Ringers 1,000 mL 1,000 mL, IV, 100 mL/hrPRN: (2)HYDROmorphone 2 mg/mL Inj [F] 0.4 mg 0.2 mL, IV Push, b7cgzobxpiigtxoza 25 mg/mL Inj [F] 12.5 mg 0.5 mL, IV Push, q2min Problem list: All ProblemsKidney stone on left side / SNOMED CT 761143045 / ConfirmedArthritis / SNOMED CT 3381358 / Confirmed, Active Problems (2)Arthritis Kidney stone on left side Histories Past Medical History: No active or resolved past medical history items have been selected or recorded. Family History: No family history items have been selected or recorded. Procedure history: Cholecystectomy (78249274).knee arthroscopy for torn meniscus, rt.Tubal ligation (293124147). Social History Social & Psychosocial PnuoebEtrmacp43/07/2018 Risk Assessment: Denies Alcohol UseSubstance Abuse05/19/2018 Risk Assessment: Denies Substance VstvsGkatkyz50/07/2018 Risk Assessment: Denies Tobacco Use. Physical Examination Vital Signs (last 24 hrs) Last Charted Temp Oral 36.6 DegC (MAY 21 08:12)Heart Rate Apical 70 bpm (MAY 21 09:00)Resp Rate 16 br/min (MAY 21 08:12)SBP H 147 mmHg (MAY 21 09:50)DBP 75 mmHg (MAY 21 09:50)SpO2 98 % (MAY 21 08:14) Airway: Normal oral/pharyngeal anatomy.. Respiratory: Adequate air exchange.. Cardiovascular: Adequate perfusion and function. Review / Management Results review: No qualifying data available. Plan [place] [employer]esthesi[employer] (ASA) physical status classification: Class II. Anesthetic Preoperative Plan Anesthesia: General. . Anesthetic plan, risks, benefits, and alternatives discussed with the patient and/or family. Pt. and/or family present and agree to proceed as planned.. Discussed the importance of abstaining from tobacco products, and offered counseling if desired. [facility] Comment on above: Result Comment: Electronically Signed By : Kian Quiroz JR, DO.br\Date and Time Signed: 05/21/18 10:58 EDT XR Abdomen 1 Viewon 05-21-20 18 Protein mass conc Exam Date/Time:05/21/2018 08:06 EDTReason for Exam:Kidney stoneReportIMPRESSION: NO ACUTE PROCESSCLINICAL HISTORY: History of left kidney stone.COMPARISON: NONE. FINDINGS: AP abdominal radiograph was obtained. There is no discernible stone withinthe collecting system of either kidney.Simple cyst in the pelvis. There are tubal ligation clips. There is arterialcalcification. There is degenerative disease in the spine and sacroiliac joints. FINAL REPORT Dictated: 05/21/2018 12:38 pm Bryanna Morris MD. Signed (Electronic Signature): 05/21/2018 12:38 pm Signed by: Bryanna Morris MD Transcribed by: DORON Technologist: FRANCISCA Mehta [facility] XR Urography Retrograde Left on 05-21-2018 XR Urography Retrograde Left Exam Date/Time:05/21/2018 12:42 EDTReason for Exam:stoneReportIMPRESSION: UNREMARKABLE LEFT RETROGRADE PYELOGRAMCLINICAL HISTORY: stoneCOMPARISON: NONE. FINDINGS: 6 fluoroscopic images were saved during left retrograde pyelogram. Thereis no sign of obstruction. There are no worrisome filling defects.Fluoroscopy time was 54 seconds. Cumulative x-ray dose was 3.1 mGy. FINAL REPORT Dictated: 05/21/2018 5:30 pm Bryanna Morris MD. Signed (Electronic Signature): 05/21/2018 5:30 pm Signed by: Bryanna Morris MD Transcribed by: DORON Technologist: Lata CommentsRadiation Dose: Ka,r in mGy = 3.1Fluoro Time: 54 seconds Normal [facility] Coding Summary.on 05-20-2018 Coding Summary. 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 However, the narrative phrase printed from the coding software may appear abbreviated, or result in slightly different terminology. Coded By: Halima Eng Date Saved: 05/20/2018 01:06 pm Normal [facility] PT & PTTon 05-19-2018 aPTT Coag time (Bld) 30.5 second(s) Normal 25.1-36.5 [facility] Comment on above: Result Comment: Heparin therapeutic rang e (represented by Anti-Factor Xa activity of 0.2 - 0.4 U/mL) corresponds to PTT of 53.9 - 87.4 sec. Performed By: #### [id number] ####[facility] [id number] [place] [address] INR Coag RelTime (PPP) 1.0 {INR} Invalid Interpretation Code [facility] Comment on above: Result Comment: INR results are specific ally intended to assess patients stabilized on long-term Anticoagulation therapy suggested INR?s ?Less Intensive Anticoagulation? 2.0 ? 3.0Conventional Range 3.0 ? 4.5 Performed By: #### [id number] ####[facility] [address] [place] [address] Prothrombin time (PT) Coag time (PPP) 10.9 second(s) Normal 10.2-12.9 [facility] Comment on above: Performed By: #### [id number] ####[facility] [id number] [place] [address] XR Chest 2 Viewson 8 XR Chest 2 Views Exam Date/Time: 018 13:26 EDTReason for Exam:pre opReportIMPRESSION: NO ACTIVE LUNG DISEASE.EXAM: XR Chest 2 Views CLINICAL HISTORY: Shortness of breath pre op COMPARISONS: None FINDINGS: Mild hyperinflation consistent with COPD. Lungs clear of any freshinfiltrate. Prominent right pulmonary artery outflow tract. Consider pulmonaryhypertension. No signs of overt pulmonary edema. No effusions. Bones intact. FINAL REPORT Dictated: 05/19/2018 2:27 pm Jaxon Siddiqi MD Signed (Electronic Signature): 05/19/2018 3:19 pm Signed by: Jaxon Siddiqi MD Transcribed by: akbar Technologist: SHARRON Mehta [facility] Vital Signs Date Time Vital Sign Value Performing Clinician Facility 07-26-2024 10:19-0400 Body height 170.2 cm Sarah Godwin MD Work Phone: [facility] 07-26-2024 10:19-0400 Body mass index (BMI) [Ratio] 21.64 kg/m2 Sarah Godwin MD Work Phone: [facility] 07-26-2024 10:19-0400 Body temperature 98.29 [degF] Sarah Godwin MD Work Phone: [facility] 07-26-2024 10:19-0400 Body weight 62.69 kg Sarah Godwin MD Work Phone: [facility] 07-06-2024 10:26-0400 Body mass index (BMI) [Ratio] 21.27 kg/m2 Augustina Vargas MD Work Phone: [facility] 07-06-2024 10:26-0400 Body weight 61.6 kg Augustina Vargas MD Work Phone: [facility] 07-06-2024 10:26-0400 Diastolic blood pressure 70 mm[Hg] Augustina Vargas MD Work Phone: [facility] 07-06-2024 10:26-0400 Systolic blood pressure 132 mm[Hg] Augustina Vargas MD Work Phone: [facility] 05-27-2024 08:49-0400 Body height 170.2 cm Augustina Vargas MD Work Phone: [facility] 05-27-2024 08:49-0400 Body mass index (BMI) [Ratio] 20.83 kg/m2 Augustina Vargas MD Work Phone: [facility] 05-27-2024 08:49-0400 Body weight 60.33 kg Augustina Vargas MD Work Phone: [facility] 05-27-2024 08:49-0400 Diastolic blood pressure 80 mm[Hg] Augustina Vargas MD Work Phone: [facility] 05-27-2024 08:49-0400 Systolic blood pressure 146 mm[Hg] Augustina Vargas MD Work Phone: [facility] 02-19-2024 12:57-0400 Body height 170.2 cm Pacc 9 Work Phone: [facility] 02-19-2024 12:57-0400 Body mass index (BMI) [Ratio] 20.92 kg/m2 Pacc 9 Work Phone: [facility] 02-19-2024 12:57-0400 Body temperature 97 [degF] Pacc 9 Work Phone: [facility] 02-19-2024 12:57-0400 Body weight 60.6 kg Pacc 9 Work Phone: [facility] 02-19-2024 12:57-0400 Diastolic blood pressure 71 mm[Hg] Pacc 9 Work Phone: [facility] 02-19-2024 12:57-0400 Heart rate 60 /min Pacc 9 Work Phone: [facility] 02-19-2024 12:57-0400 SaO2% (BldA) [Mass fraction] 100 % Pacc 9 Work Phone: [facility] 02-19-2024 12:57-0400 Systolic blood pressure 137 mm[Hg] Pacc 9 Work Phone: [facility] 12-18-2023 11:37-0500 Body height 168.9 cm Rina Fox MD Work Phone: [facility] 12-18-2023 11:37-0500 Body temperature 98.29 [degF] Rina Fox MD Work Phone: [facility] 12-18-2023 11:37-0500 Body weight 58.42 kg Rina Fox MD Work Phone: [facility] 12-18-2023 11:37-0500 Diastolic blood pressure 87 mm[Hg] Rina Fox MD Work Phone: [facility] 12-18-2023 11:37-0500 Heart rate 64 /min Rina Fox MD Work Phone: [facility] 12-18-2023 11:37-0500 Respiratory rate 14 /min Rina Fox MD Work Phone: [facility] 12-18-2023 11:37-0500 SaO2% (BldA) [Mass fraction] 100 % Rina Fox MD Work Phone: [facility] 12-18-2023 11:37-0500 Systolic blood pressure 131 mm[Hg] Rina Fox MD Work Phone: [facility] 12-02-2023 12:23-0500 Body height 170.2 cm Alex Iwema PA-C Work Phone: [facility] 12-02-2023 12:23-0500 Body mass index (BMI) [Ratio] 20.45 kg/m2 Alex Iwema PA-C Work Phone: [facility] 12-02-2023 12:23-0500 Body temperature 98.01 [degF] Alex Iwema PA-C Work Phone: [employer] 12-02-2023 12:23-0500 Body weight 59.24 kg Alex Iwema PA-C Work Phone: [facility] 09-01-2023 10:45-0500 Body height 167.64 cm Ammon Lucas Other [employer] Other 09-01-2023 10:45-0500 Body mass index (BMI) [Ratio] 19.69 kg/m2 Ammon Lucas Other [employer] Other 09-01-2023 10:45-0500 Body weight 55.34 kg Ammon Lucas Other [employer] Other 09-01-2023 10:45-0500 Diastolic blood pressure 76 mm[Hg] Ammon Lucas Other [employer] Other 09-01-2023 10:45-0500 Systolic blood pressure 138 mm[Hg] Ammon Lucas Other [employer] Other 07-29-2023 10:00-0400 Body height 167.64 cm Ammon Lucas Other [employer] Other 07-29-2023 10:00-0400 Body mass index (BMI) [Ratio] 19.72 kg/m2 Ammon Lucas Other [employer] Other 07-29-2023 10:00-0400 Body weight 55.43 kg Ammon Lucas Other [employer] Other 07-29-2023 10:00-0400 Diastolic blood pressure 76 mm[Hg] Ammon Lucas Other [employer] Other 07-29-2023 10:00-0400 Systolic blood pressure 123 mm[Hg] Ammon Lucas Other [employer] Other 07-02-2023 10:00-0400 Body height 167.64 cm Ammon Lucas Other [employer] Other 07-02-2023 10:00-0400 Body mass index (BMI) [Ratio] 20.01 kg/m2 Ammon Lucas Other [employer] Other 07-02-2023 10:00-0400 Body weight 56.25 kg Ammon Lucas Other [employer] Other 07-02-2023 10:00-0400 Diastolic blood pressure 88 mm[Hg] Ammon Lucas Other [employer] Other 07-02-2023 10:00-0400 Systolic blood pressure 145 mm[Hg] Ammon Lucas Other [employer] Other 06-06-2023 13:45-0400 Body height 167.64 cm Ammon Lucas Other [employer] Other 06-06-2023 13:45-0400 Body mass index (BMI) [Ratio] 20.66 kg/m2 Ammon Lucas Other [employer] Other 06-06-2023 13:45-0400 Body weight 58.06 kg Ammon Lucas Other [employer] Other 06-06-2023 13:45-0400 Diastolic blood pressure 70 mm[Hg] Ammon Lucas Other [employer] Other 06-06-2023 13:45-0400 SaO2% (BldA) [Mass fraction] 99 % Ammon Lucas Other [employer] Other 06-06-2023 13:45-0400 Systolic blood pressure 112 mm[Hg] Ammon Lucas Other [employer] Other 05-29-2023 09:50-0400 Body height 167.64 cm Ayaka Joyner Other [employer] Other 05-29-2023 09:50-0400 Body mass index (BMI) [Ratio] 20.43 kg/m2 Ayaka Joyner Other [employer] Other 05-29-2023 09:50-0400 Body temperature 98.3 [degF] Ayaka Joyner Other [facility] Other 05-29-2023 09:50-0400 Body weight 57.43 kg Ayaka Joyner Other [facility] Other 05-29-2023 09:50-0400 Diastolic blood pressure 88 mm[Hg] Ayaka Joyner Other [facility] Other 05-29-2023 09:50-0400 Respiratory rate 18 /min Ayaka Joyner Other [facility] Other 05-29-2023 09:50-0400 SaO2% (BldA) [Mass fraction] 96 % Ayaka Joyner Other [facility] Other 05-29-2023 09:50-0400 Systolic blood pressure 144 mm[Hg] Ayaka Joyner Other [facility] Other 02-11-2023 14:45-0400 Body height 167.64 cm Ammon Lucas Other [facility] Other 02-11-2023 14:45-0400 Body mass index (BMI) [Ratio] 22.76 kg/m2 Ammon Lucas Other [facility] Other 02-11-2023 14:45-0400 Body temperature 97.8 [degF] Ammon Lucas Other [facility] Other 05-02-2023 14:45-0400 Body weight 63.96 kg Ammon Lucas Other [facility] Other 02-11-2023 14:45-0400 Diastolic blood pressure 80 mm[Hg] Ammon Lucas Other [facility] Other 02-11-2023 14:45-0400 SaO2% (BldA) [Mass fraction] 93 % Ammon Lucas Other [facility] Other 02-11-2023 14:45-0400 Systolic blood pressure 148 mm[Hg] Ammon Lucas Other [facility] Other 02-11-2023 11:15-0400 Body height 168.91 cm Ayaka Joyner Other [facility] Other 02-11-2023 11:15-0400 Body mass index (BMI) [Ratio] 21.94 kg/m2 Ayaka Joyner Other [facility] Other 02-11-2023 11:15-0400 Body temperature 98.7 [degF] Ayaka Joyner Other [facility] Other 02-11-2023 11:15-0400 Body weight 62.6 kg Ayaka Joyner Other [facility] Other 02-11-2023 11:15-0400 Diastolic blood pressure 83 mm[Hg] Ayaka Joyner Other [facility] Other 02-11-2023 11:15-0400 Respiratory rate 18 /min Ayaka Joyner Other [facility] Other 02-11-2023 11:15-0400 SaO2% (BldA) [Mass fraction] 99 % Ayaka Joyner Other [facility] Other 02-11-2023 11:15-0400 Systolic blood pressure 152 mm[Hg] Ayaka Joyner Other [facility] Other 11-22-2022 13:35-0500 Body height 168.91 cm Ayaka Joyner Other [facility] Other 11-22-2022 13:35-0500 Body mass index (BMI) [Ratio] 22.1 kg/m2 Ayaka Joyner Other [facility] Other 11-22-2022 13:35-0500 Body temperature 98 [degF] Ayaka Joyner Other [facility] Other 11-22-2022 13:35-0500 Body weight 63.05 kg Ayaka Joyner Other [facility] Other 11-22-2022 13:35-0500 Respiratory rate 18 /min Ayaka Joyner Other [facility] Other 11-22-2022 13:35-0500 SaO2% (BldA) [Mass fraction] 98 % Ayaka Joyner Other [facility] Other 10-31-2022 15:30-0500 Body height 168.91 cm Ammon Lucas Other [facility] Other 10-31-2022 15:30-0500 Body mass index (BMI) [Ratio] 22.57 kg/m2 Ammon Lucas Other [facility] Other 10-31-2022 15:30-0500 Body weight 64.41 kg Ammon Lucas Other [facility] Other 10-31-2022 15:30-0500 Diastolic blood pressure 72 mm[Hg] Ammon Lucas Other [facility] Other 10-31-2022 15:30-0500 SaO2% (BldA) [Mass fraction] 97 % Ammon Lucas Other [facility] Other 10-31-2022 15:30-0500 Systolic blood pressure 128 mm[Hg] Ammon Lucas Other [facility] Other 07-28-2022 12:55-0400 Body height 170.18 cm Ayaka Joyner Other [facility] Other 07-28-2022 12:55-0400 Body mass index (BMI) [Ratio] 22.65 kg/m2 Ayaka Joyner Other [facility] Other 07-28-2022 12:55-0400 Body temperature 98.5 [degF] Ayaka Joyner Other [facility] Other 07-28-2022 12:55-0400 Body weight 65.59 kg Ayaka Joyner Other [facility] Other 07-28-2022 12:55-0400 Respiratory rate 18 /min Ayaka Joyner Other [facility] Other 07-28-2022 12:55-0400 SaO2% (BldA) [Mass fraction] 99 % Ayaka Joyner Other [facility] Other 09-14-2021 19:10-0500 Body height 170.18 cm Manuela Aly Other [employer] Other 09-14-2021 19:10-0500 Body mass index (BMI) [Ratio] 21.92 kg/m2 Manuela Sheeba Other [facility] Other 09-14-2021 19:10-0500 Body temperature 97.7 [degF] Manuela Sheeba Other [facility] Other 09-14-2021 19:10-0500 Body weight 63.5 kg Manuela Sheeba Other [facility] Other 09-14-2021 19:10-0500 Respiratory rate 18 /min Manuela Sheeba Other [facility] Other 09-14-2021 19:10-0500 SaO2% (BldA) [Mass fraction] 99 % Manuela Sheeba Other [facility] Other 07-29-2021 12:25-0400 Body height 170.18 cm Manuela Sheeba Other [facility] Other 07-29-2021 12:25-0400 Body mass index (BMI) [Ratio] 21.92 kg/m2 Manuela Sheeba Other [facility] Other 07-29-2021 12:25-0400 Body temperature 97.8 [degF] Manuela Sheeba Other [facility] Other 07-29-2021 12:25-0400 Body weight 63.5 kg Manuela Sheeba Other [facility] Other 07-29-2021 12:25-0400 Diastolic blood pressure 80 mm[Hg] Manuela Sheeba Other [facility] Other 07-29-2021 12:25-0400 Respiratory rate 18 /min Manuela Aly Other [facility] Other 07-29-2021 12:25-0400 SaO2% (BldA) [Mass fraction] 99 % Manuela Aly Other [facility] Other 07-29-2021 12:25-0400 Systolic blood pressure 145 mm[Hg] Manuela Aly Other [employer] Other Encounters Encounter Date Encounter Type Care Provider Facility Start: 09-01-2024 End: 09-01-2024 Subsequent hospital visit by physician Rosemary [facility] Comment on above: Arrived Start: 08-23-2024 End: 08-23-2024 Telephone encounter Augustina Vargas MD Work Phone: [facility] Comment on above: Medication Problem Start: 08-23-2024 End: 08-23-2024 ambulatory AUGUSTINA VARGAS [facility] Start: 08-23-2024 End: 08-23-2024 Subsequent hospital visit by physician Rosemary [facility] Comment on above: Arrived Start: 08-20-2024 End: 09-01-2024 Refill Augustina Vargas MD Work Phone: Gynecology Comment on above: Med Change Request Start: 08-17-2024 End: 08-17-2024 Manual pelvic examination Augustina Vargas MD Work Phone: Gynecology Comment on above: High-tone pelvic stevan or dysfunction Start: 08-17-2024 End: 08-17-2024 Telemedicine consultation with patient Augustina Vargas MD Work Phone: Gynecology Start: 08-17-2024 End: 08-19-2024 Telephone encounter Augustina Vargas MD Work Phone: Gynecology Comment on above: Appointment Start: 08-16-2024 End: 08-16-2024 [facility] Start: 08-16-2024 End: 08-16-2024 Subsequent hospital visit by physician Rosemary [facility] Comment on above: Arrived Start: 08-09-2024 End: 08-09-2024 ambulatory [facility] Start: 08-02-2024 End: 08-02-2024 ambulatory [facility] Start: 08-02-2024 End: 08-02-2024 Subsequent hospital visit by physician Rosemary [facility] Comment on above: Arrived Start: 07-26-2024 End: 07-26-2024 Office outpatient visit 10 minutes Sarah Godwin MD Work Phone: [facility] Comment on above: Chronic sialoadeniti s (Primary Dx) Start: 07-26-2024 End: 07-26-2024 ambulatory SARAH GODWIN [facility] Start: 07-12-2024 End: 07-12-2024 ambulatory [facility] Start: 07-07-2024 End: 07-07-2024 ambulatory [facility] Start: 07-06-2024 End: 07-06-2024 ambulatory AUGUSTINA VARGAS Facility:[facility] Start: 07-06-2024 End: 07-06-2024 Patient encounter procedure Augustina Vargas MD Work Phone: Gynecology Comment on above: High-tone pelvic stevan or dysfunction (Primary Dx); Nutcracker phenomenon of renal vein; Vaginal dryness; Pelvic congestion; Acute constipation; Postmenopausal atrophic vaginitis; Urethral caruncle; Myalgia Start: 06-28-2024 End: 06-28-2024 ambulatory [facility] Start: 06-21-2024 End: 06-21-2024 ambulatory [facility] Start: 06-15-2024 End: 06-15-2024 ambulatory [facility]USTINA [facility]ARGAS [facility] Start: 06-06-2024 End: 06-07-2024 Telephone encounter Augustina Vargas MD Work Phone: Gynecology Comment on above: botox auth Start: 06-04-2024 End: 06-07-2024 Telephone encounter Augustina Vargas MD Work Phone: [facility] Comment on above: Patient Question Start: 06-03-2024 End: 06-03-2024 ambulatory TESSA STEVEN Not Available Start: 05-28-2024 End: 08-18-2024 Telephone encounter Augustina Vargas MD Work Phone: Gynecology Comment on above: Medication Problem Start: 05-27-2024 End: 05-31-2024 ambulatory Chip Carr MD Work Phone: Urology Start: 05-27-2024 End: 05-27-2024 Patient encounter procedure Chip Carr MD Work Phone: Urology Comment on above: Flank pain (Primary Dx) High-tone pelvic stevan or dysfunction (Primary Dx); Nutcracker phenomenon of renal vein; Chronic pelvic pain in female Start: 05-10-2024 End: 05-10-2024 ambulatory TESSA STEVEN [facility] Start: 04-26-2024 ambulatory AMMON LUCAS Facility :[facility] Start: 04-26-2024 End: 04-26-2024 Subsequent hospital visit by physician [facility] Radiology Comment on above: 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] Start: 04-21-2024 Telephone encounter Jesús tony MD Work Phone: Urology Start: 04-12-2024 Patient Msg [facility] Provider Mary Ann colin Comment on above: Appointment for Pelv ic Pain, pelvic floor disorder Start: 04-07-2024 End: 04-07-2024 Patient encounter procedure Chip Carr MD Work Phone: Urology Comment on above: Encounter for afterc are following kidney transplant (Primary Dx); Malnutrition of moderate degree (HCC) Start: 04-07-2024 End: 04-07-2024 ambulatory CHIP CARR Facility:[facility] Start: 03-05-2024 End: 03-05-2024 Evaluation and management of inpatient AMMON Peres LANCE Facility:[facility] Start: 03-02-2024 End: 03-05-2024 Evaluation and management of inpatient CHIP CARR Facility:[facility] Start: 02-19-2024 End: 02-19-2024 Patient encounter procedure Chip Carr MD Work Phone: Urology Comment on above: 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) Start: 02-19-2024 End: 02-19-2024 ambulatory Chip Carr MD Work Phone: Urology Start: 02-19-2024 End: 02-19-2024 Admission to establishment Pacc Main 9 Work Phone: Pre Anesthesia Start: 02-19-2024 End: 02-19-2024 Anesthesia consultation Pac Main 9 Work Phone: Pre Anesthesia Comment on above: Preop examination (P rimary Dx); 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); [place]'s syndrome; Other hyperlipidemia; Ovarian varices; Nutcracker phenomenon of renal vein; Narcotic drug use Start: 02-19-2024 End: 02-19-2024 Preprocedural examination done Pac Main 9 Work Phone: [facility] Work Phone: Start: 02-19-2024 Encounter for other preprocedural examination CHIP CARR [facility] Start: 02-17-2024 ambulatory AMMON LUCAS [facility] Start: 02-10-2024 End: 02-10-2024 ambulatory SARAH GODWIN [facility] Start: 01-29-2024 End: 01-29-2024 ambulatory TESSA STEVEN Not Available Start: 01-16-2024 End: 01-16-2024 ambulatory TESSA Richard BRIANA [facility] Start: 01-13-2024 Telephone encounter Rina eagle MD Work Phone: Vascular Surg Dept Comment on above: Surgery Cancelled Start: 01-01-2024 Telephone encounter Rina eagle MD Work Phone: Vascular Surg Dept Comment on above: Patient Update Start: 12-30-2023 ambulatory Chip ramos MD Work Phone: Urology Start: 12-25-2023 End: 12-25-2023 Patient encounter procedure Chip Carr MD Work Phone: Urology Comment on above: 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) Start: 12-25-2023 End: 12-25-2023 ambulatory Chip Carr MD Work Phone: Urology Start: 12-22-2023 End: 12-22-2023 Patient encounter procedure Radu Deleon MD Work Phone: Urology Comment on above: Nutcracker phenomeno n of renal vein Start: 12-22-2023 End: 12-22-2023 ambulatory Radu Deleon MD Work Phone: Urology Start: 12-19-2023 Orders Only Rina Fox MD Work Phone: Vascular Surg Dept Comment on above: 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); Preop testing Start: 12-19-2023 Patient encounter status Lisa Fox MD Work Phone: [facility] Start: 12-18-2023 End: 12-18-2023 ambulatory RINA FOX Facility:[facility] Start: 12-18-2023 End: 12-18-2023 Office outpatient new 60 minutes Rina Fox MD Work Phone: Vascular Surg Dept Comment on above: 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); Family history of aneurysm; Aortic ectasia, abdominal (HCC) Start: 12-17-2023 Orders Only Rina Fox MD Work Phone: Vascular Surg Dept Comment on above: 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) Start: 12-12-2023 Orders Only Rina Fox MD Work Phone: Vascular Surg Dept Comment on above: 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) Start: 12-11-2023 Telephone encounter 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 Vas cular Surg Dept Comment on above: Patient Question Start: 12-03-2023 End: 12-03-2023 ambulatory TESSA STEVEN Not Available Start: 12-02-2023 End: 12-02-2023 Patient encounter procedure Alex Ramirez PA-C Work Phone: [facility] - ENT Comment on above: Submandibular gland swelling (Primary Dx); Chronic sialoadenitis Start: 12-02-2023 End: 12-02-2023 ambulatory ALEX Goodman FRANKIE [facility] Start: 11-24-2023 End: 11-24-2023 Evaluation and management of inpatient YEN [facility] Start: 11-24-2023 End: 11-24-2023 Evaluation and management of inpatient SARAH Longoria [facility] Start: 11-20-2023 Telephone encounter Sarah Godwin MD Work Phone: [facility] Start: 11-12-2023 End: 11-12-2023 ambulatory SARAH GODWIN [facility] Start: 11-12-2023 Encounter for other preprocedural examination SARAH GODWIN [facility] Start: 11-11-2023 End: 11-11-2023 ambulatory CHIP CARR Facility:[facility] Start: 11-05-2023 End: 11-05-2023 ambulatory PAGE BUCHANAN Facility:[facility] Start: 10-08-2023 End: 10-08-2023 ambulatory Ammon Lucas Other [employer] Other Start: 10-08-2023 Telephone encounter Ammon Lucas [facility] Start: 09-30-2023 End: 09-30-2023 ambulatory SARAH Longoria CITLALI [facility] Start: 09-01-2023 End: 09-01-2023 ambulatory Ammon Lucas Other [employer] Other Start: 09-01-2023 Office outpatient vi sit 15 minutes Ammon Lucas [facility] Start: 08-22-2023 Telephone encounter 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 [facility] Comment on above: Appointment Start: 07-29-2023 End: 07-29-2023 ambulatory Mamon Lance Other [employer] Other Start: 07-29-2023 Office outpatient vi sit 15 minutes Ammon Lucas [facility] Start: 07-02-2023 End: 07-02-2023 ambulatory Ammon Lance Other [employer] Other Start: 07-02-2023 Office outpatient vi sit 15 minutes Ammon Lance [facility] Start: 06-10-2023 End: 06-10-2023 ambulatory Ammon Lance Other [facility] Other Start: 06-10-2023 Telephone encounter Ammon Lance [facility] Start: 06-06-2023 End: 06-06-2023 ambulatory Ammon Lance Other [employer] Other Start: 06-06-2023 Office outpatient vi sit 15 minutes Ammon Lance [facility] Start: 06-05-2023 End: 06-05-2023 ambulatory Ammon Lance Other [employer] Other Start: 06-05-2023 Telephone encounter Ammon Lance [facility] Start: 05-30-2023 End: 05-30-2023 ambulatory Ammon Lance Other [employer] Other Start: 05-30-2023 Telephone encounter Ammon Lucas [facility] Start: 05-29-2023 End: 05-29-2023 ambulatory Ayaka Joyner Other [employer] Other Start: 05-29-2023 Office outpatient vi sit 25 minutes Ayaka Joyner [facility] Start: 05-09-2023 End: 05-09-2023 ambulatory Ammon Lucas Other [employer] Other Start: 05-09-2023 Telephone encounter Ammon Lucas [facility] Start: 02-22-2023 End: 02-22-2023 ambulatory NAVEEN KAHN Facility:[facility] Start: 02-18-2023 End: 02-18-[address] BOSSMAN CEVALLOS . Facility:[facility] Start: 02-11-2023 End: 02-11-2023 ambulatory Ayaka Joyner Other [employer] Other Start: 02-11-2023 Office outpatient vi sit 15 minutes Ayaka Joyner [facility] Start: 02-11-2023 Telephone encounter Ammon Lucas [facility] Start: 11-25-2022 End: 11-25-[address] BOSSMAN CEVALLOS . Facility: Start: 11-22-2022 End: 11-22-2022 ambulatory Ayaka Joyner Other [employer] Other Start: 11-22-2022 Office outpatient vi sit 25 minutes Ayaka Joyner [facility] Start: 11-02-2022 End: 11-02-2022 ambulatory Ammon Lucas Other [employer] Other Start: 11-02-2022 Telephone encounter Ammon Lucas [facility] Start: 11-01-2022 End: 11-02-[address] GARNETT LISTED REQUEST Facility:[facility] Start: 10-31-2022 End: 10-31-2022 ambulatory Ammon Lucas Other [employer] Other Start: 10-31-2022 Office outpatient vi sit 15 minutes Ammon Lucas [facility] Start: 08-14-2022 Gynecological examin ation normal Ammon Lance Other [employer] Other Start: 08-14-2022 Pre-procedure evalua tion check Ammon Lance Other [employer] Other Start: 08-13-2022 End: 08-14-2022 ambulatory [facility] Facility: Start: 07-28-2022 End: 07-28-2022 ambulatory Ayaka Joyner Other [employer] Other Start: 07-28-2022 Office outpatient vi sit 25 minutes Ayaka Joyner [facility] Start: 09-14-2021 End: 09-14-2021 ambulatory Manuela Sheeba Other [employer] Other Start: 09-14-2021 Office outpatient vi sit 15 minutes Manuela Sheeba [facility] Start: 07-29-2021 Office outpatient vi sit 15 minutes Manuela Sheeba [facility] Start: 05-21-2018 End: 05-21-2018 Patient encounter Joel Monroe Facility:[facility] Start: 05-19-2018 End: 05-20-2018 Patient encounter Joel Monroe Facility:[facility] Procedures Date Procedure Procedure Detail Performing Clinician Start: 07-26-2024 Follow-up visit Follow-up CARA GODWIN Start: 05-27-2024 Urnls dip stick/tabl et rgnt auto w/o microscopy Bulk Order Provider Start: 04-26-2024 Creatinine [Mass/vol ume] in Serum or Plasma [facility] Provider Start: 03-02-2024 History of renal transplant S/P renal autotransplant Chip Carr MD Work Phone: Start: 02-19-2024 Urnls dip stick/tabl et rgnt auto w/o microscopy Bulk Order Provider Start: 02-19-2024 Antibody screen CHIP CARR Comment on above: Order Comment: Speci men Type: BLOOD SPECIMENOrdering Facility: [facility] Address: [address] [place] [address] Performed By: #### T [id number] ####CC MAIN BLOOD BANKCLIA [id number] [address] [place] [address] [place] Start: 12-25-2023 Urnls dip stick/tabl et rgnt auto w/o microscopy Bulk Order Provider Start: 12-22-2023 Urnls dip stick/tabl et rgnt auto w/o microscopy Bulk Order Provider Start: 08-10-2018 General examination of patient Ammon Lucas Other Start: 07-23-2018 Colonoscopy Sarah Godwin MD Work Phone: History of renal transplant Encounter for aftercare following kidney transplant Chip Carr MD Work Phone: Screening for malign ant neoplasm of breast Ammon Lucas Other Viral screening Ammon Lucas Other Plan of Treatment Date Care Activity Detail Author Start: 2032 Respiratory Syncytial Virus (RSV) or age 60 yrs+ (1 - 1-dose 75+ series) Respiratory Syncytial Virus (RSV) or age 60 yrs+ (1 - 1-dose 75+ series) [facility] Start: 07-23-2028 Screening for malignant neoplasm of colon Colonoscopy [facility] Start: 03-04-2027 Diabetes Screening Diabetes Screening [facility] Start: 02-18-2027 Diabetes Screening Diabetes Screening [facility] Start: 06-24-2026 Diabetes Screening Diabetes Screening [facility] Start: 07-26-2025 Adult BMI Screening Adult BMI Screening [facility] Start: 07-26-2025 Tobacco Screening Tobacco Screening [facility] Start: 07-26-2025 End: 07-26-2025 Patient encounter procedure 07/26/2025 10:15 AM EDT Office Visit [facility] [address] [place] [id number] Sarah Godwin MD [address] [place] [address] [facility] Start: 05-10-2025 Screening for malignant neoplasm of lung Lung Cancer Screening [facility] Start: 01-15-2025 Screening for malignant neoplasm of lung Lung Cancer Screening [facility] Start: 12-02-2024 Adult BMI Screening Adult BMI Screening [facility] Start: 12-02-2024 Tobacco Screening Tobacco Screening [facility] Start: 11-12-2024 Adult BMI Screening Adult BMI Screening [facility] Start: 11-12-2024 Tobacco Screening Tobacco Screening [facility] Start: 10-05-2024 End: 10-05-2024 Patient encounter procedure 10/05/2024 2:30 PM EST Office Visit Gynecology [address] [place] [address] Augustina Vargas MD [address] [place] [address] put her on my schedule oct 05, 2024 at 2:30pm for botox Gynecology Comment on above: put her on my schedule oct 05, 2024 at 2:30pm for botox Start: 09-15-2024 End: 09-15-2024 Patient encounter procedure 09/15/2024 3:[address] [facility] Physical Therapy [address] [place] [phone] 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 [facility]TA [facility] Start: 09-08-2024 End: 09-08-2024 Patient encounter procedure 09/08/2024 3:[address] [facility] Physical Therapy [address] [place] [phone] 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 [facility] Start: 09-01-2024 End: 09-01-2024 Patient encounter procedure 09/01/2024 9:[address] [facility] Physical Therapy [address] [place] [phone] 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 PTA needs medicare recheck with janett at this appt [facility] Physical Therapy Comment on above: needs medicare recheck with janett at this appt Start: 08-27-2024 End: 08-27-2024 ambulatory 08/27/2024 10:30 AM EST [facility] [address] [address] Augustina Vargas MD [address] [place] [address] 3 MO F/U - TVST ok per Dr. Vargas Gynecology Comment on above: 3 MO F/U - TVST ok per Dr. Vargas Start: 08-27-2024 End: 08-27-2024 Patient encounter procedure 08/27/2024 10:30 AM EST Office Visit Gynecology [address] [place] [phone] Augustina Vargas MD [address] [place] [address] 3 MO F/U - TVST ok per Dr. Vargas Gynecology Comment on above: 3 MO F/U - TVST ok per Dr. Vargas Start: 08-23-2024 End: 08-23-2024 Patient encounter procedure 08/23/2024 1:15 PM EST Appointment [facility] [address] [place] [phone] 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 PTA needs medicare recheck with janett at next appt [facility] Physical Therapy Comment on above: needs medicare recheck with janett at next appt Start: 08-17-2024 End: 08-17-2024 ambulatory 08/17/2024 5:00 PM EST [facility] [address] [place] [id number] Augustina Vargas MD [address] [place] [address] 6 WEEK FU Gynecology Comment on above: 6 WEEK FU Start: 08-09-2024 End: 08-09-2024 Patient encounter procedure 08/09/2024 10:45 AM EDT Appointment [facility] [address] [place] 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 [facility] Start: 07-06-2024 End: 07-06-2024 Patient encounter procedure 07/06/2024 10:30 AM EDT Office Visit Gynecology [address] [place] [address] Augustina Vargas MD [address] [place] [address] Botox Gynecology Comment on above: Botox Start: 06-24-2024 Screening for malignant neoplasm of lung Lung Cancer Screening [facility] Start: 06-15-2024 Annual Wellness Visit (Medicare) Annual Wellness Visit (Medicare) [facility] Start: 06-13-2024 COVID-19 Vaccine ( season) COVID-19 Vaccine () [facility] Start: 06-13-2024 COVID-19 Vaccine ( season) COVID-19 Vaccine ( season) [facility] Start: 06-13-2024 Covid-19 Vaccine () Covid-19 Vaccine () [facility] Start: 06-13-2024 Influenza vaccination [facility] Start: 05-27-2024 End: 05-27-2024 Patient encounter procedure Gynecology Comment on above: new cpp add on- follow up af ter [facility] appt Start: 05-13-2024 Influenza vaccination Flu vaccine (#1) [facility] Start: 04-26-2024 End: 04-26-2024 Patient encounter procedure Radiology Comment on above: 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 ORDER SCANNED POST R ENAL AUTOTRANSPLANTATION OTHER DISORDER OF KIDNEY Start: 04-22-2024 End: 04-22-2024 ambulatory 04/22/2024 3:00 PM EDT [facility] Urology [address], [place] [address] Chip Carr MD [address] [place] [address] virtual/per staff message Urology Comment on above: virtual/per staff message Start: 03-02-2024 End: 03-02-2024 Admission to same day surgery center 03/02/2024 7:30 AM EDT - 03/02/2024 5:03 PM EDT Surgery Admitting [address] [place] [address] Chip Carr MD [address] [place] [address] 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 Admitting Comment on above: ROBOTIC SINGLE PORT LAPAROSCOPIC RENAL A UTOTRANSPLANTATION REIMPLANTATION OF KIDNEY Start: 03-02-2024 Subsequent hospital visit by physician 03/02/2024 7:30 AM EDT Hospital Encounter Admitting [address] [place] [address] Chip Carr MD [address] [place] [address] 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] Admitting Comment on above: Nutcracker phenomenon of renal vein [I87 .1] Start: 03-02-2024 End: 03-02-2024 Unlisted laparoscopy procedure renal 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 Nutcracker phenomenon of renal vein 03/02/2024 7:30 AM EDT [facility] Start: 02-25-2024 End: 05-26-2024 aPTT in Platelet poor plasma by Coagulation assay ACTIVATED PARTIAL THROMBOPLASTIN TIME Lab Routine Nutcracker phenomenon of renal vein Abnormal coagulation profile Expected: 02/25/2024 (Approximate), Expires: 05/26/2024 [facility] Comment on above: Expected: 02/25/2024 (Approximate), Expi res: 05/26/2024 Start: 02-25-2024 End: 05-26-2024 CBC W Auto Differential panel - Blood COMPLETE BLOOD COUNT AND DIFFERENTIAL Lab Routine Nutcracker phenomenon of renal vein Expected: 02/25/2024 (Approximate), Expires: 05/26/2024 [facility] Work Phone: Comment on above: Expected: 02/25/2024 (Approximate), Expi res: 05/26/2024 Start: 02-25-2024 End: 05-26-2024 Comprehensive metabolic 2000 panel - Serum or Plasma COMPREHENSIVE METABOLIC PANEL Lab Routine Nutcracker phenomenon of renal vein Expected: 02/25/2024 (Approximate), Expires: 05/26/2024 [facility] Comment on above: Expected: 02/25/2024 (Approximate), Expi res: 05/26/2024 Start: 02-25-2024 End: 05-26-2024 CONFIRM BLOOD TYPE CONFIRM BLOOD TYPE Blood Bank Routine Nutcracker phenomenon of renal vein Expected: 02/25/2024 (Approximate), Expires: 05/26/2024 [facility] Comment on above: Expected: 02/25/2024 (Approximate), Expi res: 05/26/2024 Start: 02-25-2024 End: 12-29-2024 ECG COMPLETE ECG COMPLETE ECG Routine Nutcracker phenomenon of renal vein Expected: 02/25/2024 (Approximate), Expires: 12/29/2024 [facility] Comment on above: Expected: 02/25/2024 (Approximate), Expi res: 12/29/2024 Start: 02-25-2024 End: 05-26-2024 PT panel - Platelet poor plasma by Coagulation assay PROTHROMBIN TIME Lab Routine Nutcracker phenomenon of renal vein Expected: 02/25/2024 (Approximate), Expires: 05/26/2024 [facility] Comment on above: Expected: 02/25/2024 (Approximate), Expi res: 05/26/2024 Start: 02-25-2024 End: 05-26-2024 TYPE AND SCREEN,30 DAY TYPE AND SCREEN,30 DAY Blood Bank Routine Nutcracker phenomenon of renal vein Expected: 02/25/2024 (Approximate), Expires: 05/26/2024 [facility] Comment on above: Expected: 02/25/2024 (Approximate), Expi res: 05/26/2024 Start: 02-19-2024 End: 02-19-2024 ambulatory 02/19/2024 2:30 PM EDT Results Only Cardiology [address] [id number] PRE OP ELTEMAMY ~ 03/02 Cardiology Comment on above: PRE OP ELTEMAMY ~ 03/02 Start: 02-19-2024 End: 02-19-2024 Patient encounter procedure Admitting Comment on above: PRE OP ELTEMAMY ~ 03/02 Start: 02-19-2024 End: 02-19-2024 Anesthesia consultation 02/19/2024 1:20 PM EDT PAT Pre Anesthesia [address] [place] [address] 9, [address] [place] [place] [address] PRE OP ELTEMAMY ~ 03/02 Pre Anesthesia Comment on above: PRE OP ELTEMAMY ~ 03/02 Start: 02-10-2024 End: 02-10-2024 Patient encounter procedure 02/10/2024 9:45 AM EDT Office Visit [facility] ENT [address] [place] [id number] Sarah Godwin MD [address] [place] [address] [facility] Start: 12-19-2023 End: 03-19-2024 Basic metabolic 2000 panel - Serum or Plasma BASIC METABOLIC PNL Lab Routine Nutcracker phenomenon of renal vein Preop testing Expected: 12/19/2023 (Approximate), Expires: 03/19/2024 [facility] Work Phone: Comment on above: Expected: 12/19/2023 (Approximate), Expi res: 03/19/2024 Start: 12-19-2023 End: 03-19-2024 CBC W Auto Differential panel - Blood CBC + DIFF Lab Routine Nutcracker phenomenon of renal vein Preop testing Expected: 12/19/2023 (Approximate), Expires: 03/19/2024 [facility] Work Phone: Comment on above: Expected: 12/19/2023 (Approximate), Expi res: 03/19/2024 Start: 12-19-2023 End: 03-19-2024 CONFIRM BLOOD TYPE CONFIRM BLOOD TYPE Blood Bank Routine Nutcracker phenomenon of renal vein Preop testing Expected: 12/19/2023 (Approximate), Expires: 03/19/2024 [facility] Work Phone: Comment on above: Expected: 12/19/2023 (Approximate), Expi res: 03/19/2024 Start: 12-19-2023 End: 03-19-2024 PT panel - Platelet poor plasma by Coagulation assay PROTHROMBIN TIME/PT Lab Routine Nutcracker phenomenon of renal vein Preop testing Expected: 12/19/2023 (Approximate), Expires: 03/19/2024 [facility] Work Phone: Comment on above: Expected: 12/19/2023 (Approximate), Expi res: 03/19/2024 Start: 12-19-2023 End: 03-19-2024 STAPH AUREUS PCR STAPH AUREUS PCR Lab Routine Nutcracker phenomenon of renal vein Preop testing Expected: 12/19/2023, Expires: 03/19/2024 [facility] Work Phone: Comment on above: Expected: 12/19/2023, Expires: Start: 12-19-2023 End: 03-19-2024 TYPE AND SCREEN,30 DAY TYPE AND SCREEN,30 DAY Blood Bank Routine Nutcracker phenomenon of renal vein Preop testing Expected: 12/19/2023 (Approximate), Expires: 03/19/2024 [facility] Work Phone: Comment on above: Expected: 12/19/2023 (Approximate), Expi res: 03/19/2024 Start: 12-02-2023 End: 12-02-2023 Patient encounter procedure 12/02/2023 12:45 PM EST Office Visit [facility] [address] [place] [phone] Alex Ramirez PA-Kenneth [address] [place] [address] [facility] Start: 11-24-2023 End: 11-24-2023 Admission to same day surgery center 11/24/2023 12:15 PM EST - 11/24/2023 2:15 PM EST Surgery [facility] Surgery [address] [place] [phone] Sarah Godwin MD [address] [place] [address] SIALENDOSCOPY RIGHT SUBMANDIBULAR DUCT [48561 (CPT )] [facility] Surgery Comment on above: SIALENDOSCOPY RIGHT SUBMANDIBULAR DUCT [ 18318 (CPT )] Start: 11-24-2023 Subsequent hospital visit by physician 11/24/2023 12:15 PM EST Hospital Encounter [facility] Surgery [address] [place] [phone] Sarah Godwin MD [address] [place] [address] [facility] Surgery Start: 11-24-2023 End: 11-24-2023 Unlisted px salivary glands/ducts SIALENDOSCOPY Submandibular gland swelling Chronic sialoadenitis 11/24/2023 12:15 PM EST [facility] Start: 10-13-2023 Advance Directive Discussion Advance Directive Discussion [facility] Start: 10-13-2023 Behavioral Health Screening Behavioral Health Screening [facility] Start: 10-13-2023 Depression Assessment Depression Assessment [facility] Start: 06-13-2023 COVID-19 Vaccine ( season) COVID-19 Vaccine ( season) [facility] Start: 06-13-2023 Influenza vaccination [facility] Start: 2022 Fall Risk Screening Fall Risk Screening [facility] Start: 2022 Pneumococcal 65+ years Vaccine (2 of 2 - PCV) Pneumococcal 65+ years Vaccine (2 of 2 - PCV) [facility] Start: 2022 Pneumococcal Vaccine: 65+ (1 of 1 - PCV) Pneumococcal Vaccine: 65+ (1 of 1 - PCV) [facility] Start: 2022 Pneumococcal Vaccine: 65+ (2 of 2 - PCV) Pneumococcal Vaccine: 65+ (2 of 2 - PCV) [facility] Start: 2022 Screening for osteoporosis Bone Density Screening [facility] Start: 06-30-2021 Pneumococcal Vaccine: 65+ (2 of 2 - PCV) Pneumococcal Vaccine: 65+ (2 of 2 - PCV) [facility] Start: 2017 Respiratory Syncytial Virus (RSV) or age 60 yrs+ (1 - 1-dose 60+ series) Respiratory Syncytial Virus (RSV) or age 60 yrs+ (1 - 1-dose 60+ series) [facility] Start: 2017 RSV Vaccine (1 - 1-dose 60+ series) RSV Vaccine (1 - 1-dose 60+ series) [facility] Start: 2017 RSV Vaccine (1 - Risk 60-74 years 1-dose series) RSV Vaccine (1 - Risk 60-74 years 1-dose series) [facility] Start: 2012 Screening for osteoporosis DEXA (modify frequency per FRAX score) [facility] Start: 2007 Shingrix Vaccine (1 of 2) Shingrix Vaccine (1 of 2) [facility] Start: 2002 Lipid panel Lipid Screening [facility] Start: 2002 Screening for malignant neoplasm of colon [facility] Start: 1997 Lipid panel Lipids [facility] Start: 1997 Screening for malignant neoplasm of breast [facility] Start: 1976 DTaP,Tdap and Td Vaccines (1 - Tdap) DTaP,Tdap and Td Vaccines (1 - Tdap) [facility] Start: 1976 DTaP/Tdap/Td vaccine (1 - Tdap) DTaP/Tdap/Td vaccine (1 - Tdap) [facility] Start: 1976 Urine microalbumin profile DTaP,Tdap,Td Vaccine (1 - Tdap) [facility] Start: 1975 Anxiety Screening Anxiety Screening [facility] Start: 1975 Depression Screening Depression Screening [facility] Start: 1975 Hepatitis C screening [facility] Start: 1969 Depression Screen Depression Screen [facility] Start: 1969 Depression Screening Depression Screening [facility] Start: 1968 Screening for malignant neoplasm of cervix Cervical Cancer Screening [facility] Start: 03-04-1958 Covid-19 Vaccine (#1) Covid-19 Vaccine (#1) [facility] Start: 1957 Medicare Annual Wellness Visit Medicare Annual Wellness Visit [facility] CYSTOSCOPY WHI CYSTOSCOPY [facility] P rocedures Routine High-tone pelvic floor dysfunction 1 Occurrences starting 08/18/2024 [facility] Work Phone: Comment on above: 1 Occurrences starting 08/18/2024 End: 12-18-2024 ECG COMPLETE ECG COMPLETE ECG Routine Nutcracker phenomenon of renal vein Preop testing 1 Occurrences starting 12/19/2023 until 12/18/2024 [facility] Work Phone: Comment on above: 1 Occurrences starting 12/19/2023 until 12/18/2024 Injection single/medicare coordinator trigger point 1/2 muscles TRIGGER POINT INJECTION MULTI 1-2 MUSCLE GR Procedures Routine Myalgia Ordered: 07/06/2024 [facility] Work Phone: Comment on above: Ordered: 07/06/2024 URINALYSIS, REFLEX MICROSCOPIC URINALYSIS, REFLEX MICROSCOPIC Lab Routine Screening for genitourinary condition Ordered: 05/27/2024 [facility] Work Phone: Comment on above: Ordered: 05/27/2024 End: 12-11-2024 US Renal artery US RENAL ARTERY [facility] Lab Routine Nutcracker phenomenon of renal vein 1 Occurrences starting 12/12/2023 until 12/11/2024 [facility] Work Phone: Comment on above: 1 Occurrences starting 12/12/2023 until 12/11/2024 End: 12-16-2024 US Vein - bilateral US VENOUS INCOMPETENCY [facility] Lab Routine Nutcracker phenomenon of renal vein 1 Occurrences starting 12/17/2023 until 12/16/2024 [facility] Work Phone: Comment on above: 1 Occurrences starting 12/17/2023 until 12/16/2024 End: 12-16-2024 US.doppler Renal vessels - bilateral US RENAL VENOUS [facility] Lab Routine Nutcracker phenomenon of renal vein 1 Occurrences starting 12/17/2023 until 12/16/2024 [facility] Work Phone: Comment on above: 1 Occurrences starting 12/17/2023 until 12/16/2024 [facility] Immunizations Immunization Date Immunization Notes Care Provider Fa cili 07-20-2021 influenza virus vaccine, split virus (incl. purified surface antigen) Ammon Lucas Other [employer] Other 07-20-2021 influenza virus vaccine, unspecified formulation Sarah Godwin MD Work Phone: [employer] 08-11-2019 influenza virus vaccine, split virus (incl. purified surface antigen) Ammon Lucas Other [employer] Other Payers Date Payer Category Payer Managed Care Other (unspecified) [facility] [id number] 2023 Unknown [id number] 2022 Medicare [id number] 2018 Private Health Insurance 1959 Medicare [id number] [id number] 1959 Private Health Insurance [id number] 1959 Self-pay 1957 Unknown [id number] 2.16.840.1.042659.3.579.2 .593 1957 Unknown [id number] 2.16.840.1.043975.3.579.2 .593 1957 Unknown [id number] 2.16.840.1.646994.3.579.2 .593 1957 Unknown [id number] 2.16.840.1.062699.3.579.2 .593 1957 Unknown [id number] 2.16.840.1.704853.3.579.2 .128 1957 Unknown [id number] 2.16.840.1.493263.3.579.2 .1286 1957 Unknown [id number] 2.16.840.1.520209.3.579.2 .1286 1957 Unknown [id number] 2.16.840.1.199612.3.579.2 .1259 1957 Unknown [id number] 2.16.840.1.670408.3.579.2 .1259 1957 Unknown [id number] 2.16.840.1.889367.3.579.2 .1259 1957 Unknown [id number] 2.16.840.1.784693.3.579.2 .1286 1957 Unknown [id number] 2.16.840.1.158453.3.579.2 .1286 1957 Unknown [id number] 2.16.840.1.967505.3.579.2 .1286 1957 Unknown [id number] 2.16.840.1.913046.3.579.2 .1286 1957 Unknown [id number] 2.16.840.1.098373.3.579.2 .1286 1957 Unknown [id number] 2.16.840.1.566042.3.579.2 .1286 1957 Unknown [id number] 2.16.840.1.474963.3.579.2 .1286 1957 Unknown [id number] 2.16.840.1.305109.3.579.2 .1286 1957 Unknown [id number] 2.16.840.1.398074.3.579.2 .173 1957 Unknown [id number] 2.16.840.1.794488.3.579.2 .173 1957 Unknown [id number] 2.16.840.1.792963.3.579.2 .173 1957 Unknown [id number] 2.16.840.1.329209.3.579.2 .173 1957 Unknown [id number] 2.16.840.1.464888.3.579.2 .173 1957 Unknown [id number] 2.16.840.1.772332.3.579.2 .173 1957 Unknown [id number] 2.16.840.1.899847.3.579.2 .173 1957 Unknown [id number] 2.16.840.1.076981.3.579.2 .173 1957 Unknown [id number] 2.16.840.1.156285.3.579.2 .173 Unknown [id number] 2.16.840.1.914881.3.579.2 .593 Social History Date Type Detail Facility Start: 02-08-2020 End: 12-18-2023 Sex Assigned At [facility] Start: 1955 Sex Assigned At Not on file [facility] Start: 07-17-2023 End: 07-06-2024 Tobacco smoking status NHIS Ex-smoker [facility] Start: 02-07-1970 End: 10-13-2010 History of tobacco use Current smoker [facility] Start: 02-07-1970 End: 10-13-2010 History of tobacco use Cigarette Smoker [facility] Start: 07-17-2023 End: 12-18-2023 Cigarettes smoked current (pack per day) - Reported 1 [facility] History of tobacco use Passive smoker [facility] Start: 07-17-2023 End: 07-06-2024 Tobacco use and exposure Smokeless tobacco non-user [facility] Start: 11-12-2023 End: 07-26-2024 Alcohol intake Current drinker of alcohol (finding) [facility] Frequency of Alcohol Consumption Never [facility] Start: 07-17-2023 Alcohol Comment 2 per month [facility] Start: 11-05-2023 End: 07-06-2024 Alcohol intake Ex-drinker (finding) [facility] Start: 05-18-2015 Sex Female (finding) [facility] NEGATED: Highlighted rowStart: NINF History of tobacco use Passive smoker [facility] Medical Equipment Procedure Code Equipment Code Equipment Origin al Text Equipment Identifier Dates Stent Inlay 4.7f r 2 Pigtail Curve Taper Blue Hydrophilic 14cm Ureteral - [id number] Start: 03-02-2024 Clinical Notes 07-29-2021 to 09-01-2024 Telephone Encounter - Danae Colindres RN - 09/01/2024 12:04 PM ESTTelephone Encounter - Danae Colindres RN - 09/01/2024 12:04 PM ESTTelephone Encounter - Morenita Lopez RN - 08/23/2024 2:24 PM EST Note Date & Type Note Facility 09-01-2024 Telephone encounter Note Refill(s) request: Requested Prescriptions Pending Prescriptions Disp Refills cyclobenzaprine (FLEXERIL) 5 mg tablet [Pharmacy Med Name: cyclobenzaprine 5 mg tablet] 90 tablet 4 Sig: take1 tablet BY MOUTH at bedtime as needed Called patient. Left voice message and notified there is a valid prescription waiting for her to picker feeder at the pharmacy on file. Request from: Pharmacy Last order: 08/17/2024 Last visit: Distance visit with provider Dr. Vargas on date 08/17/2024 Assessment: Encounter Diagnosis ICD-10-CM 1. High-tone pelvic floor dysfunction M62.89 cyclobenzaprine (FLEXERIL) 5 mg tablet onabotulinum toxin type A 100 Units injection (BOTOX) Plan: 1) fu botox and abd TPI 10/05/24 2) continue flexeril vaginally Future appointments: Future Appointments Date Time Provider Department Center 10/05/2024 2:30 PM [facility] App[facility]ment scheduled: As listed above Action taken: Refill already approved by provider. Danae Colindres RN September 01, 2024 12:05 PM [facility] 09-01-2024 Miscellaneous Notes Refill(s) request: Requested Prescriptions Pending Prescriptions Disp Refills cyclobenzaprine (FLEXERIL) 5 mg tablet [Pharmacy Med Name: cyclobenzaprine 5 mg tablet] 90 tablet 4 Sig: take1 tablet BY MOUTH at bedtime as needed Called patient. Left voice message and notified there is a valid prescription waiting for her to picker feeder at the pharmacy on file. Request from: Pharmacy Last order: 08/17/2024 Last visit: Distance visit with provider Dr. Vargas on date 08/17/2024 Assessment: Encounter Diagnosis ICD-10-CM 1. High-tone pelvic floor dysfunction M62.89 cyclobenzaprine (FLEXERIL) 5 mg tablet onabotulinum toxin type A 100 Units injection (BOTOX) Plan: 1) fu botox and abd TPI 10/05/24 2) continue flexeril vaginally Future appointments: Future Appointments Date Time Provider Department Center 10/05/2024 2:30 PM [facility] Appointment scheduled: As listed above Action taken: Refill already approved by provider. Danae Colindres RN September 01, 2024 12:05 PM documented in this encounter [facility] 08-23-2024 Telephone encounter Note Called [facility] to clarify that prescription is for Flexeril 5 mg tablets and to use 1 tablet at bedtime vaginally. Morenita Lopez RN [facility] 08-23-2024 Miscellaneous Notes Called [facility] to clarify that prescription is for Flexeril 5 mg tablets and to use 1 tablet at bedtime vaginally. Morenita Lopez RN Received call from pharmacy asking for clarification of directions for: cyclobenzaprine (FLEXERIL) 5 mg tablet States that direction says to use vaginally but prescription is for oral tablet Please advise: [email or web address] [id number] - [place] [address] - [address] - [phone] documented in this encounter [facility] 08-23-2024 Telephone encounter Note Received call from pharmacy asking for clarification of directions for: cyclobenzaprine (FLEXERIL) 5 mg tablet States that direction says to use vaginally but prescription is for oral tablet Please advise: [email or web address] [id number] - [place] [address] - [address] [facility] - [phone] [facility] 08-19-2024 Telephone encounter Note Done Martinez Chang Electronically signed by ChunHealios K[facility] at 08/19/2024 11:32 AM EST [facility] Work Phone: 08-19-2024 Miscellaneous Notes Done Martinez Chang Done Encounter Diagnosis ICD-10-CM 1. High-tone pelvic floor dysfunction M62.89 CYSTOSCOPY WHI Please put her on my schedule oct 05, 2024 at 2:30pm for botox, which is approved already Patient aware documented in this encounter [facility] 08-18-2024 Telephone encounter Note Done Encounter Diagnosis ICD-10-CM 1. High-tone pelvic floor dysfunction M62.89 CYSTOSCOPY WHI [facility] 08-17-2024 Note HNO ID: [id number] Author: AUGUSTINA VARGAS MD Service: ? Author Type: Physician Type: Progress Notes Filed: 08/17/2024 17:36 Note Text: CHRONIC PELVIC PAIN TELEPHONE VISIT PROGRESS NOTE Duration of Call: 5 minutes This is a telephone encounter initiated for an established patient, parent or guardian not originating from a related Evaluation AND Management service provided within the previous 7 days nor leading to an Evaluation AND Management service or procedure within the next 24 hours or soonest available appointment. Patient identified by and name. Zaynab Zaidi has consented to this telephone encounter. Persons Present: patient Chief Complaint/Reason: follow up for chronic pelvic pain History of Present Illness: Doing better ; L side still v tight Sp botox AND abd TPI and doing better. PHYSICAL THERAPY working on the left side Has therapy yesterday AND pretty sore after for several hours Then felt good AND today tightens back up Sleep is good AND improved a lot and only occ wakes up w pain Flexeril vaginally at night Last Visit: 07/06/2024 Encounter Diagnosis ICD-10-CM 1. High-tone pelvic floor dysfunction M62.89 onabotulinum toxin type A 100 Units injection (BOTOX) BUPivacaine HCl 25 mg injection (SENSORCAINE) 2. 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 Vaginal dryness N89.8 estradiol (ESTRACE) 0.01 % (0.1 mg/gram) vaginal cream 4. Pelvic congestion N94.89 5. Acute constipation K59.00 6. Postmenopausal atrophic vaginitis N95.2 7. Urethral caruncle N36.2 8. Myalgia M79.10 TRIGGER POINT INJECTION MULTI 1-2 MUSCLE GR Vaginal Botox and abdominal TPI performed today Follow up in 6 weeks virtually 2 estrogen cream apply to urethra and vulva nightly IMAGING: CT 04/2024 ct abd and pelvis IMPRESSION: 1. 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 Kidneys enhance symmetrically without hydronephrosis. 2. Punctate hyperdense foci in the region of the left ureterovesicular junction. Given lack of hydronephrosis, this likely reflect postoperative change from ureteral reimplantation although a punctate stone is difficult to exclude. 3. No acute process. 4. 0.5 cm subpleural nodule in the right lower lobe Incidental Finding: Follow-up Acuity: Incidental Finding: Solid: <6 mm (solitary or multiple) Routing Code: N/A Recommendation: No imaging follow-up is recommended Time Frame: N/A Comments: If there are risk factors for lung malignancy, a follow-up chest CT exam could be obtained in 12 months --END OF FINDING-- Assessment: Encounter Diagnosis ICD-10-CM 1. High-tone pelvic floor dysfunction M62.89 cyclobenzaprine (FLEXERIL) 5 mg tablet onabotulinum toxin type A 100 Units injection (BOTOX) Plan: 1) fu botox and abd TPI 10/05/24 2) continue flexeril vaginally Total Time Spent: 5-10 minutes Augustina Vargas MD CPP Summary: DIAGNOSES: PFD, pelvic congestion, nutcracker syndrome, constipation, vaginal dryness, Postmenopausal atrophic vaginitis, myalgia, Urethral caruncle Surgery 1. 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 Vaginal botox done on: 07/06/2024 2. Abdominal TPI done on: 07/06/2024 Nonhormonal Medications 1. Flexeril 2. gabapentin 300 mg 3. motrin Hormonal medications (IUD, control pill, GNRH) 1. Esterase cream Services (GI, urology, pain psych,PFPT) 1. PFPT [facility] 08-17-2024 History of Present illness Narrative CHRONIC PELVIC PAIN TELEPHONE VISIT PROGRESS NOTE Duration of Call: 5 minutes This is a telephone encounter initiated for an established patient, parent or guardian not originating from a related Evaluation & Management service provided within the previous 7 days nor leading to an Evaluation & Management service or procedure within the next 24 hours or soonest available appointment. Patient identified by and name. Zaynab Zaidi has consented to this telephone encounter. Persons Present: patient Chief Complaint/Reason: follow up for chronic pelvic pain History of Present Illness: Doing better ; L side still v tight Sp botox & abd TPI and doing better. PHYSICAL THERAPY working on the left side Has therapy yesterday & pretty sore after for several hours Then felt good & today tightens back up Sleep is good & improved a lot and only occ wakes up w pain Flexeril vaginally at night Last Visit: 07/06/2024 Encounter Diagnosis ICD-10-CM 1. High-tone pelvic floor dysfunction M62.89 onabotulinum toxin type A 100 Units injection (BOTOX) BUPivacaine HCl 25 mg injection (SENSORCAINE) 2. 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 Vaginal dryness N89.8 estradiol (ESTRACE) 0.01 % (0.1 mg/gram) vaginal cream 4. Pelvic congestion N94.89 5. Acute constipation K59.00 6. Postmenopausal atrophic vaginitis N95.2 7. Urethral caruncle N36.2 8. Myalgia M79.10 TRIGGER POINT INJECTION MULTI 1-2 MUSCLE GR Vaginal Botox and abdominal TPI performed today Follow up in 6 weeks virtually 2 estrogen cream apply to urethra and vulva nightly IMAGING: CT 04/2024 ct abd and pelvis IMPRESSION: 1. 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 Kidneys enhance symmetrically without hydronephrosis. 2. Punctate hyperdense foci in the region of the left ureterovesicular junction. Given lack of hydronephrosis, this likely reflect postoperative change from ureteral reimplantation although a punctate stone is difficult to exclude. 3. No acute process. 4. 0.5 cm subpleural nodule in the right lower lobe Incidental Finding: Follow-up Acuity: Incidental Finding: Solid: <6 mm (solitary or multiple) Routing Code: N/A Recommendation: No imaging follow-up is recommended Time Frame: N/A Comments: If there are risk factors for lung malignancy, a follow-up chest CT exam could be obtained in 12 months --END OF FINDING-- Assessment: Encounter Diagnosis ICD-10-CM 1. High-tone pelvic floor dysfunction M62.89 cyclobenzaprine (FLEXERIL) 5 mg tablet onabotulinum toxin type A 100 Units injection (BOTOX) Plan: 1) fu botox and abd TPI 10/05/24 2) continue flexeril vaginally Total Time Spent: 5-10 minutes Augustina Vargas MD CPP Summary: DIAGNOSES: PFD, pelvic congestion, nutcracker syndrome, constipation, vaginal dryness, Postmenopausal atrophic vaginitis, myalgia, Urethral caruncle Surgery 1. 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 Vaginal botox done on: 07/06/2024 2. Abdominal TPI done on: 07/06/2024 Nonhormonal Medications 1. Flexeril 2. gabapentin 300 mg 3. motrin Hormonal medications (IUD, control pill, GNRH) 1. Esterase cream Services (GI, urology, pain psych,PFPT) 1. PFPT documented in this encounter [facility] 08-17-2024 Telephone encounter Note Please put her on my schedule oct 05, 2024 at 2:30pm for botox, which is approved already Patient aware [facility] 07-26-2024 History of Present illness Narrative [facility] [address] [place] [address], [address] [facility] [id number] SUBJECTIVE: Patient ID: Zaynab Zaidi is a 68 y.o. female presents today for Chief Complaint Patient presents with Follow-up HPI: Zaynab Zaidi is a 68 y.o. female seen to follow-up right submandibular duct dilation. She was last seen in office on 02/10/2024. Patient underwent right submandibular duct dilation with steroid irrigation. Zaynab states that she is doing well. She denies any issues or concerns regarding her right submandibular gland. She is free of pain and swelling in her right neck. Patient underwent an autotransplantation of her kidney on 03/02/2024 at [facility]. 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 Osteoporosis Pelvic congestion syndrome Peripheral vascular disease ([facility]) Seasonal allergies Submandibular gland swelling 11/12/2023 Visual impairment glasses Past Surgical History: Procedure Laterality Date CATARACT EXTRACTION Bilateral 2018 CHOLECYSTECTOMY COLONOSCOPY COLONOSCOPY N/A 07/23/2018 Performed by Frank Christine DO at [facility] DENTAL SURGERY 07/2013 implants Diagnostic cerebral angiogram N/A 03/31/2020 Performed by Melissa Morillo MD at [facility] CARDIAC CATH LABS DIAGNOSTIC VENOGRAM OF IVC AND ILEOCABLE, LEFT RENAL VEIN, SELECTIVE LEFT OVARIAN VEIN CONTRAST AND IVUS VENOGRAMS N/A 07/25/2023 Performed by Erendira Armijo DO at [facility] SPECIAL PROC dilation rt submandibular duct and steroid irrigation Right 11/24/2023 Performed by Sarah Godwin MD at [facility] SURGERY 2019? KNEE CARTILAGE SURGERY MOLE REMOVAL 11/10/2023 right breast NEPHRECTOMY TRANSPLANTED ORGAN 03/02/2024 OTHER SURGICAL HISTORY 08/31/2020 cranial base ( cranial styloidectomy) 05/2020 also OTHER SURGICAL HISTORY 06/18/2023 venogram OTHER SURGICAL HISTORY 09/09/2023 DIagnostic venogram TUBAL LIGATION Vascular Invasive Diagnostic venogram with IVUS and the ability to measure pressure gradients Bilateral 06/18/2023 Performed by Erendira Armijo DO at [facility] CARDIAC CATH LABS Family History Problem Relation Age of Onset Aneurysm Mother Aneurysm Father Stroke Brother Anesthesia problems Neg Hx Social History Socioeconomic History Marital status: Spouse name: Not on file Number of children: Not on file Years of education: Not on file Highest education level: Not on file Occupational History Not on file Tobacco Use Smoking status: Former Current packs/day: 0.00 Average packs/day: 1 pack/day for 30.0 years (30.0 ttl pk-yrs) Types: Cigarettes Start date: 02/07/1970 Quit date: 02/08/2000 Years since quittin.4 Passive exposure: Past Smokeless tobacco: Never Vaping Use Vaping status: Never Used Substance and Sexual Activity Alcohol use: Yes Comment: 2 per month Drug use: No Sexual activity: Defer Partners: Male Other Topics Concern Coffee Not Asked Tea Not Asked Carbonated Beverages Not Asked Chocolate Not Asked Caffeine Use Yes Social History Narrative Not on file Social Determinants of Health Financial Resource Strain: Not on file Food Insecurity: No Food Insecurity (11/12/2023) Hunger Screening Food Insecurity - Worry: Never True Food Insecurity - Inability: Never True Transportation Needs: Not on file Physical Activity: Not on file Stress: Not on file Social Connections: Not on file Interpersonal Safety: Not on file Housing Instability: Not on file Allergies Allergen Reactions Clindamycin Hives, Shortness Of Breath and Rash Bee Venom Protein (Honey Bee) Rash Codeine GI Disturbance Doxycycline Hyclate Rash Current Outpatient Medications Medication Sig Dispense Refill atorvastatin (LIPITOR) 20 mg tablet Take 1 tablet (20 mg total) by mouth in the morning. 90 tablet 0 CALCIUM CARBONATE-VITAMIN D3 ORAL Take 600 mg by mouth in the morning. cyclobenzaprine (FLEXERIL) 5 mg tablet Take 2 tablets (10 mg total) by mouth 3 (three) times a day as needed for muscle spasms. fluticasone (FLONASE) 50 mcg/actuation nasal spray Administer 1 spray into each nostril in the morning. ibuprofen (ADVIL,MOTRIN) 200 mg tablet Take 2 tablets (400 mg total) by mouth every 6 (six) hours as needed for pain. montelukast (SINGULAIR) 10 mg tablet Take 1 tablet (10 mg total) by mouth nightly Indications: seasonal runny nose. gabapentin (NEURONTIN) 300 mg capsule Take 1 capsule (300 mg total) by mouth 3 (three) times a day Indications: neuropathic pain. HYDROcodone-acetaminophen (NORCO) 5-325 mg per tablet Take 1 tablet by mouth every 6 (six) hours as needed. loratadine-pseudoephedrine (LORATADINE-D) 5-120 mg tablet extended release 12 hr Take 1 tablet by mouth every 12 (twelve) hours. 1/2 tablet- keeps right ear open No current facility-administered medications for this visit. REVIEW OF SYSTEMS: Review of Systems Constitutional: Negative for chills and fever. HENT: Negative for congestion, postnasal drip, sinus pressure and sinus pain. Eyes: Negative for redness. Respiratory: Negative for cough and shortness of breath. Gastrointestinal: Negative for nausea and vomiting. Musculoskeletal: Negative for gait problem. Skin: Negative for color change. Allergic/Immunologic: Negative for environmental allergies. Neurological: Negative for dizziness, light-headedness and headaches. Hematological: Bruises/bleeds easily (bruise). Psychiatric/Behavioral: Negative for confusion. Data Reviewed: PHYSICAL EXAMINATION: Temp 36.8 C (98.3 F) Ht 170.2 cm (5' 7.01 ) Wt 62.7 kg (138 lb 3.2 oz) BMI 21.64 kg/m Constitutional: General Appearance: Healthy, alert, cooperative, and in no distress Ability to Communicate: Normal ability to communicate and Voice normal Head/Face: Inspection of Head/Face: Normocephalic without obvious abnormality, Atraumatic appearance, and Sinuses non-tender Facial Nerve: Facial nerve symmetrical and intact Salivary Glands: Parotid Gland: Normal, Submandibular Gland: Normal, and Sublingual Gland: Normal Eyes: No gross abnormalities, EOMI, and No Nystagmus Ears: External Ear: Normal bilateral External Auditory Canal: Normal bilateral Tympanic Membranes: Normal bilateral Middle Ear: Normal bilateral Hearing: Normal bilateral Nose: External Nose: Normal Septum: Deviated nasal septum left mildly Mucosa/Turbinates: Normal inferior turbinate and Normal mucosa Oral Cavity: Normal lips, Normal gums, Normal floor of mouth, Normal oral mucosa, Normal anterior tongue, and upper and lower dental implants Oropharynx: Normal mucosa, Normal soft palate, Normal hard palate, Normal uvula, Normal tonsils, and Normal Vallecula Neck: Neck supple, No adenopathy, Thyroid normal in size without nodules or tenderness, No palpable neck masses, Carotids normal, and well healed left neck incision Respiratory: No stridor, Normal respiratory effort and No use of accessory muscles Cardiovascular: Regular rate and Regular rhythm Neurologic: Patient is alert and oriented x3 with normal affect and grossly normal cranial nerves ASSESSMENT/PLAN: Sheri was seen today for follow-up. Diagnoses and all orders for this visit: Chronic sialoadenitis Today's examination findings were discussed with the patient/patient's parent or guardian. Recommendations for treatment were provided including the following: - Patient is continuing to do well at this time. Continue current regimen as previously directed. - Follow up in 1 year, or sooner if needed. The patient will contact my office if there are any additional questions or concerns: . Non-emergent messages received through [employer] may take up to 2 business days for a response. Scribe Statement: Scribed for and in the presence of Sarah Godwin MD by Lauren Stevens (scribe). Lauren Stevens 07/26/2024 10:56 AM Provider Statement: I Sarah Godwin MD personally performed the services described in the documentation as described by the above named scribe in my presence. It is both accurate and complete at the time of final signature. Dr. Sarah Godwin 07/26/2024 1:50 PM Electronically signed by Sarah Godwin MD Please note that parts of this chart were generated using voice recognition [employer] dictation software. Although every effort was made to ensure the accuracy of this automated salesperson men's furnishings, some errors in salesperson men's furnishings may have occurred. Yovana Veloz CNA 07/26/24 1024 documented in this encounter [facility] 07-26-2024 Instructions Neda Stevens - 07/26/2024 10:15 AM EDT Today's examination findings were discussed with the patient/patient's parent or guardian. Recommendations for treatment were provided including the following: - Patient is continuing to do well at this time. Continue current regimen as previously directed. - Follow up in 1 year, or sooner if needed. The patient will contact my office if there are any additional questions or concerns: . Non-emergent messages received through [employer] may take up to 2 business days for a response. documented in this encounter [facility] 07-06-2024 Instructions Augustina Vargas MD - 07/06/2024 11:13 AM EDT BOTOX INJECTION OF HIGH TONE PELVIC FLOOR MUSCLES Botulinum Toxin A can be used to inject pelvic floor muscles to induce relaxation. Relaxation is typically delayed 2-4 weeks after injections are given, but the affect can last for 6 months or longer. According to a 2015 study: 80% of patients reported good response at 8,12, and 24 weeks after injection. 83% less pain with sex at 24 weeks after injection. Overall quality of life improved as well. Vaginal muscle tenderness decreased. Reported adverse effects included worsening of the following preexisting conditions: constipation (28.6%), stress urinary incontinence (4.8%), fecal incontinence (4.8%), and new onset stress urinary incontinence (4.8%). documented in this encounter [facility] 07-06-2024 History of Present illness Narrative Images from the original note were not included. [facility] SECTION FOR CHRONIC PELVIC PAIN OUTPATIENT VISIT DATE 07/06/2024 OUTPATIENT VISIT TYPE FOLLOW UP CHIEF COMPLAINT Zaynab Zaidi is a 68 year old female who presents for chronic pelvic pain follow up with abdominal TPI and vaginal Botox. HISTORY OF PRESENT ILLNESS Zaynab is a 68 year old female who is in today for chronic pelvic pain follow up with abdominal TPI and vaginal Botox and accompanied by self. Since last visit: The patient states that her pain has improved with Flexeril, and she is completing PFPT. She reports that the exercises involve stretching and external work, with nothing internal so far. However, she continues to experience intermittent left-sided tingling and numbness in her pelvic area, which radiates to her lower back and left thigh. Additionally, she is still dealing with constipation and notes seeing a purple spot in her vagina. When sitting, she reports a sensation of sitting on a ball. She reports doing well with PFPT. Intensity of pain: mild-moderate Average Pain level: 4-5 on a scale of 0-10 Emergency room visits for pain since last visit: no Level of physical activity and mobility: I try to be active all the time. Yesterday, I walked a mile and felt sore. Some days I'm active I fell fine but yesterday I felt bad Quality of sleep: most night I can sleep through the night and other nights I wake up and reposition myself to get comfortable Mood: most of the time I'm in a good mood, I get a little weary with travel Side effects of medications for pain: no SUMMARY FROM LAST VISIT Date: 05/27/2024 Encounter Diagnosis ICD-10-CM 1. 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 Chronic pelvic pain in female R10.2 G89.29 PLAN See pelvic floor PHYSICAL THERAPY You can search for others [email or web address], enter zip or city You can click on names for the bios if they have them Use flexeril vaginally at night We can see if botox vaginally is covered by the insurance F/u 3 month virtually You have tight pelvic floor muscles TREATMENT HISTORY No specialty comments available. PHYSICAL EXAM BP 132/70 Wt 61.6 kg (135 lb 12.9 oz) LMP (LMP Unknown) BMI 21.27 kg/m BP 132/70 Wt 61.6 kg (135 lb 12.9 oz) LMP (LMP Unknown) BMI 21.27 kg/m Physical Exam Abdominal: General: The patient is a well-appearing female in no acute distress. Examination Abdominal tenderness: LLQ pain Vaginal Vestibular tenderness: non-tender Comment: vaginal dryness Rectal tenderness: non-tender Bladder base tenderness: non-tender Uterus: Comment: urethral prolapse Pelvic Floor Musculature RIGHT SIDED Pubococcygeus: 2 Iliococcygeus: 2 Coccygeus: 2 Obturator: 2 LEFT SIDED Pubococcygeus: 2 Iliococcygeus: 2 Coccygeus: 2 Obturator: 2 (Pain Scale 1 to 3, 3= extreme) RV exam - deferred LABS/IMAGING: IMAGING: CT 04/2024 ct abd and pelvis IMPRESSION: 1. 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 Kidneys enhance symmetrically without hydronephrosis. 2. Punctate hyperdense foci in the region of the left ureterovesicular junction. Given lack of hydronephrosis, this likely reflect postoperative change from ureteral reimplantation although a punctate stone is difficult to exclude. 3. No acute process. 4. 0.5 cm subpleural nodule in the right lower lobe Incidental Finding: Follow-up Acuity: Incidental Finding: Solid: <6 mm (solitary or multiple) Routing Code: N/A Recommendation: No imaging follow-up is recommended Time Frame: N/A Comments: If there are risk factors for lung malignancy, a follow-up chest CT exam could be obtained in 12 months --END OF FINDING-- ASSESSMENT/PLAN Encounter Diagnosis ICD-10-CM 1. High-tone pelvic floor dysfunction M62.89 onabotulinum toxin type A 100 Units injection (BOTOX) BUPivacaine HCl 25 mg injection (SENSORCAINE) 2. 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 Vaginal dryness N89.8 estradiol (ESTRACE) 0.01 % (0.1 mg/gram) vaginal cream 4. Pelvic congestion N94.89 5. Acute constipation K59.00 6. Postmenopausal atrophic vaginitis N95.2 7. Urethral caruncle N36.2 8. Myalgia M79.10 TRIGGER POINT INJECTION MULTI 1-2 MUSCLE GR Vaginal Botox and abdominal TPI performed today Follow up in 6 weeks virtually 2 estrogen cream apply to urethra and vulva nightly Patient verbalized understanding of the plan of care and all questions were answered to her stated satisfaction. Written and verbal health teaching given to patient, patient verbalizes understanding and agrees with treatment plan. Medical Decision Making: Problems: Moderate: 1+ chronic illnesses with change Risk: Moderate: Moderate risk from testing/treatment and Drug management Medical Decision Making Level: 4 - Moderate I personally interviewed, confirmed and edited the above information if obtained by others. Augustina Vargas MD ATTESTATION: Scribe Attestation: By signing my name below, I, Virginia Tobar, attest that this documentation has been prepared under the direction and in the presence of Dr. Augustina Vargas MD Electronically signed, Dulce Saravia July 06, 2024 11:08 AM ORDERS PLACED . Office Visit on 07/06/24 TRIGGER POINT INJECTION MULTI 1-2 MUSCLE GR onabotulinum toxin type A 100 Units injection (BOTOX) BUPivacaine HCl 25 mg injection (SENSORCAINE) estradiol (ESTRACE) 0.01 % (0.1 mg/gram) vaginal cream CPP Summary: DIAGNOSES: PFD, pelvic congestion, nutcracker syndrome, constipation, vaginal dryness, Postmenopausal atrophic vaginitis, myalgia, Urethral caruncle Surgery 1. 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 Vaginal botox done on: 07/06/2024 2. Abdominal TPI done on: 07/06/2024 Nonhormonal Medications 1. Flexeril 2. gabapentin 300 mg 3. motrin Hormonal medications (IUD, control pill, GNRH) 1. Esterase cream Services (GI, urology, pain psych,PFPT) 1. PFPT UNIVERSAL PROTOCOL / SAFETY CHECKLIST Procedure to be Performed: Vaginal botox injections Sign In: 10:55 am A Moment of CARE was completed. Personnel directly involved with the procedure wore the appropriate PPE (Personal Protective Equipment). No special equipment needed. Patient/Surrogate Stated/Verified: PATIENT VERIFIED(optional for EMERGENT procedures): Patient name, Date of , Relevant allergies, and The intended procedure Time Out Communication: Intended patient and procedure match the source documents. Consent documented and matches the intended procedure. No relevant labs, photos, and/or imaging studies were applicable for review. No correct side/site applicable for marking and visibility. Medications required for procedure verified. No fire risk assessment and interventions applicable. No implant(s) inserted. Sign Out: 11:15am SIGN OUT (optional for EMERGENT procedures): No specimen collected. No instruments, equipment or retained foreign bodies applicable. Post-procedure follow-up management communicated and Plan of Care Visit completed when applicable. Augustina Vargas MD UNIVERSAL PROTOCOL / SAFETY CHECKLIST Procedure to be performed: Vaginal botox series Sign in Communication: Completed Time Out: Team Confirms the Correct Patient, Correct Procedure, Correct Site and Site Marking, Correct Position (if applicable), Prep and Dry Time (if applicable). Time: 10:55 am Affirmation of Time Out: YES Sign Out Discussion: Completed PROCEDURE NOTE: Area prepped with hibiclens 10 ml of 100 units of botox mixed in 10 mL syringe. Skin was prepped in a sterile fashion. Right vaginal wall Affected area was injected in 1 muscle Groups (3areas) with 5 mL of the botox solution using a 22g needle. Left vaginal wall Affected area was injected Into 1 muscle groups (3 areas) with 5 ml of botox solution solution using a 22g needle. Patient tolerated the procedure well. Vaginal wall massaged for 10 seconds and patient performed kegel exercises 10 times following the procedure Patient tolerated procedure well. OnabotulinumtoxinA: office provided LOT:[id number] EXP: 08/2026 PROCEDURE ABDOMINAL TRIGGER POINT INJECTIONS Area prepped with alcohol swab and pain ease spray 10 mL 0.25% bupivicaine mixed in a 10 mL syringe. Skin was prepped in a sterile fashion. Left Lower Quadrant. Affected area was injected in 1 muscle Groups with 10 mL of the bupivicaine solution using a 22g needle. Patient tolerated the procedure well. 5 AREAS Patient tolerated procedure well. 0.25% Bupivacaine 10 ML --- lot # [id number] EXP: 05/2026 documented in this encounter [facility] 07-06-2024 Note HNO ID: [id number] Author: AUGUSTINA VARGAS MD Service: ? Author Type: Physician Type: Progress Notes Filed: 07/06/2024 11:47 Note Text: [facility] SECTION FOR CHRONIC PELVIC PAIN OUTPATIENT VISIT DATE 07/06/2024 OUTPATIENT VISIT TYPE FOLLOW UP CHIEF COMPLAINT Zaynab Zaidi is a 68 year old female who presents for chronic pelvic pain follow up with abdominal TPI and vaginal Botox. HISTORY OF PRESENT ILLNESS Zaynab is a 68 year old female who is in today for chronic pelvic pain follow up with abdominal TPI and vaginal Botox and accompanied by self. Since last visit: The patient states that her pain has improved with Flexeril, and she is completing PFPT. She reports that the exercises involve stretching and external work, with nothing internal so far. However, she continues to experience intermittent left-sided tingling and numbness in her pelvic area, which radiates to her lower back and left thigh. Additionally, she is still dealing with constipation and notes seeing a purple spot in her vagina. When sitting, she reports a sensation of sitting on a ball. She reports doing well with PFPT. Intensity of pain: mild-moderate Average Pain level: 4-5 on a scale of 0-10 Emergency room visits for pain since last visit: no Level of physical activity and mobility: I try to be active all the time. Yesterday, I walked a mile and felt sore. Some days I'm active I fell fine but yesterday I felt bad Quality of sleep: most night I can sleep through the night and other nights I wake up and reposition myself to get comfortable Mood: most of the time I'm in a good mood, I get a little weary with travel Side effects of medications for pain: no SUMMARY FROM LAST VISIT Date: 05/27/2024 Encounter Diagnosis ICD-10-CM 1. 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 Chronic pelvic pain in female R10.2 G89.29 PLAN See pelvic floor PHYSICAL THERAPY You can search for others [email or web address], enter zip or city You can click on names for the bios if they have them Use flexeril vaginally at night We can see if botox vaginally is covered by the insurance F/u 3 month virtually You have tight pelvic floor muscles TREATMENT HISTORY No specialty comments available. PHYSICAL EXAM BP 132/70 Wt 61.6 kg (135 lb 12.9 oz) LMP (LMP Unknown) BMI 21.27 kg/m? BP 132/70 Wt 61.6 kg (135 lb 12.9 oz) LMP (LMP Unknown) BMI 21.27 kg/m? Physical Exam Abdominal: General: The patient is a well-appearing female in no acute distress. Examination Abdominal tenderness: LLQ pain Vaginal Vestibular tenderness: non-tender Comment: vaginal dryness Rectal tenderness: non-tender Bladder base tenderness: non-tender Uterus: Comment: urethral prolapse Pelvic Floor Musculature RIGHT SIDED Pubococcygeus: 2 Iliococcygeus: 2 Coccygeus: 2 Obturator: 2 LEFT SIDED Pubococcygeus: 2 Iliococcygeus: 2 Coccygeus: 2 Obturator: 2 (Pain Scale 1 to 3, 3= extreme) RV exam - deferred LABS/IMAGING: IMAGING: CT 04/2024 ct abd and pelvis IMPRESSION: 1. 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 Kidneys enhance symmetrically without hydronephrosis. 2. Punctate hyperdense foci in the region of the left ureterovesicular junction. Given lack of hydronephrosis, this likely reflect postoperative change from ureteral reimplantation although a punctate stone is difficult to exclude. 3. No acute process. 4. 0.5 cm subpleural nodule in the right lower lobe Incidental Finding: Follow-up Acuity: Incidental Finding: Solid: <6 mm (solitary or multiple) Routing Code: N/A Recommendation: No imaging follow-up is recommended Time Frame: N/A Comments: If there are risk factors for lung malignancy, a follow-up chest CT exam could be obtained in 12 months --END OF FINDING-- ASSESSMENT/PLAN Encounter Diagnosis ICD-10-CM 1. High-tone pelvic floor dysfunction M62.89 onabotulinum toxin type A 100 Units injection (BOTOX) BUPivacaine HCl 25 mg injection (SENSORCAINE) 2. 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 Vaginal dryness N89.8 estradiol (ESTRACE) 0.01 % (0.1 mg/gram) vaginal cream 4. Pelvic congestion N94.89 5. Acute constipation K59.00 6. Postmenopausal atrophic vaginitis N95.2 7. Urethral caruncle N36.2 8. Myalgia M79.10 TRIGGER POINT INJECTION MULTI 1-2 MUSCLE GR Vaginal Botox and abdominal TPI performed today Follow up in 6 weeks virtually 2 estrogen cream apply to urethra and vulva nightly Patient verbalized understanding of the plan of care and all questions were answered to her stated satisfaction. Written and verbal health teaching given to patient, patient verbalizes understanding and agrees with treatment plan. [facility] [place] (more content not included)... [facility] 06-07-2024 Telephone encounter Note Called pt; verified name/. Advised pt to use Flexeril vaginally, inserting as far as it will go at bedtime. Advised pt that it may cause drowsiness, but to a lesser degree when inserted vaginally vs. orally. Pt verbalized understanding and had no further questions. Kira Alvarez RN June 07, 2024 10:25 AM [facility] 06-07-2024 Miscellaneous Notes Called pt; verified name/. Advised pt to use Flexeril vaginally, inserting as far as it will go at bedtime. Advised pt that it may cause drowsiness, but to a lesser degree when inserted vaginally vs. orally. Pt verbalized understanding and had no further questions. Kira Alvarez RN June 07, 2024 10:25 AM Tell her fleexeril, I like to try it vaginally first (less side effects ) and use at night. Insert as far as it will go vaginally at night It can cause grogginess but more so if used orally [facility] 05/27/2024 Notes not yet complete Alysha Torres RN Instructions See pelvic floor PHYSICAL THERAPY You can search for others [email or web address], enter zip or city You can click on names for the bios if they have them Use flexeril vaginally at night We can see if botox vaginally is covered by the insurance F/u 3 month virtually You have tight pelvic floor muscles PATIENT INFORMATION ON PELVIC FLOOR DYSFUNCTION: Myofascial pain( also known as Pelvic floor dysfunction, high tone pelvic floor,pelvic floor tightness) ========= Called Patient. Verified name and . PT is fine with paying the copay of $21. PA not needed. PT aware of goodrx. Pt would like to know if flexeril is to be taken vaginally or orally. Notes and prescription instructions conflict. Aidee Delong RN June 04, 2024 10:38 AM documented in this encounter [facility] 06-07-2024 Telephone encounter Note Done Martinez Chang [facility] Work Phone: 06-07-2024 Miscellaneous Notes Done Martinez Chang Botox is approved; can she start PFPT if she desires and then do botox or do botox in office first available appointment documented in this encounter [facility] 06-06-2024 Telephone encounter Note Botox is approved; can she start PFPT if she desires and then do botox or do botox in office first available appointment [facility] 06-06-2024 Telephone encounter Note Tell her fleexeril, I like to try it vaginally first (less side effects ) and use at night. Insert as far as it will go vaginally at night It can cause grogginess but more so if used orally [facility] 06-04-2024 Telephone encounter Note [facility] 05/27/2024 Notes not yet complete Alysha Torres RN Instructions See pelvic floor PHYSICAL THERAPY You can search for others [employer], enter zip or city You can click on names for the bios if they have them Use flexeril vaginally at night We can see if botox vaginally is covered by the insurance F/u 3 month virtually You have tight pelvic floor muscles PATIENT INFORMATION ON PELVIC FLOOR DYSFUNCTION: Myofascial pain( also known as Pelvic floor dysfunction, high tone pelvic floor,pelvic floor tightness) ========= Called Patient. Verified name and . PT is fine with paying the copay of $21. PA not needed. PT aware of goodrx. Pt would like to know if flexeril is to be taken vaginally or orally. Notes and prescription instructions conflict. Aidee Delong RN June 04, 2024 10:38 AM [facility] 05-28-2024 Telephone encounter Note [facility] 05/27/2024 Notes not yet complete Alysha Torres RN Instructions See pelvic floor PHYSICAL THERAPY You can search for others [employer], enter zip or city You can click on names for the bios if they have them Use flexeril vaginally at night We can see if botox vaginally is covered by the insurance F/u 3 month virtually You have tight pelvic floor muscles PATIENT INFORMATION ON PELVIC FLOOR DYSFUNCTION: Myofascial pain( also known as Pelvic floor dysfunction, high tone pelvic floor,pelvic floor tightness) [facility] 05-28-2024 Miscellaneous Notes [facility] 05/27/2024 Notes not yet complete Alysha Torres RN Instructions See pelvic floor PHYSICAL THERAPY You can search for others [email or web address], enter zip or city You can click on names for the bios if they have them Use flexeril vaginally at night We can see if botox vaginally is covered by the insurance F/u 3 month virtually You have tight pelvic floor muscles PATIENT INFORMATION ON PELVIC FLOOR DYSFUNCTION: Myofascial pain( also known as Pelvic floor dysfunction, high tone pelvic floor,pelvic floor tightness) Reason for call: other - Provider name: Dr. Vargas Additional comments: patient was given medication - cyclobenzaprine (FLEXERIL) 5 mg tablet and the pharmacist told her , he never heard this being vaginally inserted, so he prescribed it by to take by mouth, please advise. Recommendation: routed to nurse triage pool Last visit in this department: Visit date not found Last distance health visit in this department: Visit date not found Next visit in this department: 08/27/2024 08/27/2024 in [facility] with AUGUSTINA VARGAS - 3 MO F/U - TVST ok per Dr. Vargas , PLS CALL HOME PHONE PT is unable to do VV documented in this encounter [facility] 05-28-2024 Telephone encounter Note Reason for call: other - Provider name: Dr. Vargas Additional comments: patient was given medication - cyclobenzaprine (FLEXERIL) 5 mg tablet and the pharmacist told her , he never heard this being vaginally inserted, so he prescribed it by to take by mouth, please advise. Recommendation: routed to nurse triage pool Last visit in this department: Visit date not found Last distance health visit in this department: Visit date not found Next visit in this department: 08/27/2024 08/27/2024 in [facility] with AUGUSTINA VARGAS - 3 MO F/U - TVST ok per Dr. Vargas , PLS CALL HOME PHONE PT is unable to do VV Electronically signed by NasseoNaveen [facility] [place] at 05/28/2024 10:00 AM EDT [facility] Work Phone: 05-27-2024 History of Present illness Narrative REASON FOR VISIT: Follow-up with CT imaging HPI: 68 yo female S/P SP left renal autotransplant and ureteral stent placement (03/02/24) Returns today for follow-up Recent CT imaging completed (04/26/24) Completed due to lower pelvic discomfort LABS: Creatinine Date Value Ref Range Status 03/04/2024 0.81 0.58 - 0.96 mg/dL Final 03/03/2024 0.89 0.58 - 0.96 mg/dL Final 03/02/2024 0.86 0.58 - 0.96 mg/dL Final Creatinine (POCT) Date Value Ref Range Status 04/26/2024 0.80 0.7 - 1.4 mg/dL Final IMAGING: CT abdomen/pelvis (04/30/24): 1. 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 Kidneys enhance symmetrically without hydronephrosis. 2. Punctate hyperdense foci in the region of the left ureterovesicular junction. Given lack of hydronephrosis, this likely reflect postoperative change from ureteral reimplantation although a punctate stone is difficult to exclude. 3. No acute process. 4. 0.5 cm subpleural nodule in the right lower lobe ALLERGIES: ALLERGIES Allergen Reactions Clindamycin Rash, Shortness of Breath Doxycycline Rash Venom-Honey Bee Rash Codeine GI Upset MEDICATIONS: Current Outpatient Medications Medication Sig tamsulosin (FLOMAX) 0.4 mg Take 1 capsule by mouth daily at bedtime. calcium carbonate/vitamin D3 (CALTRATE 600 + D ORAL) Take 600 mg by mouth two times a day. atorvastatin (LIPITOR) 20 mg tablet Take 20 mg by mouth every evening. fluticasone (FLONASE) 50 mcg/actuation nasal spray Use 1 Alsen in the nose as needed for cold/allergy symptoms. Take in allergy season gabapentin (NEURONTIN) 300 mg capsule Take 300 mg by mouth as needed for pain. montelukast (SINGULAIR) 10 mg tablet Take 10 mg by mouth once daily. ibuprofen (MOTRIN) 200 mg tablet Take 400 mg by mouth two times a day. 400-800 mg 3-4 PRN No current facility-administered medications for this visit. 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 PAST SURGICAL HISTORY 2020: PAST SURGICAL HISTORY OF; Right Comment: styloidectomy for beaver syndrome No date: PAST SURGICAL HISTORY OF Comment: R knee menisus repair No date: PAST SURGICAL HISTORY OF Comment: falloption tube tied 11/24/2023: PAST SURGICAL HISTORY OF Comment: right submandibular duct dilation with steroid irrigation No date: REMOVAL GALLBLADDER; N/A Comment: Social History Tobacco Use Smoking status: Former Packs/day: 1.00 Years: 27.00 Additional pack years: 0.00 Total pack years: 27.00 Types: Cigarettes Quit date: 2010 Years since quittin.6 Passive exposure: Never Smokeless tobacco: Never Vaping Use Vaping Use: Never used Substance Use Topics Alcohol use: Not Currently Drug use: Never REVIEW OF SYSTEMS General: No weight loss, malaise or fevers. Genitourinary: See HPI The remainder of the ROS was reviewed and negative. PHYSICAL EXAMINATION General: No acute distress Genitourinary: FEMALE EXAM: Exam NOT Indicated PROBLEMS: Patient is doing great Flank pain is gone Incision looks great She has some pelvic floor pain who she is seeing PT for She had a CT that looks great PLAN -Follow up as needed Chip Carr MD documented in this encounter [facility] 05-27-2024 Note HNO ID: [id number] Author: CHIP CARR MD Service: ? Author Type: Physician Type: Progress Notes Filed: 05/27/2024 11:03 Note Text: REASON FOR VISIT: Follow-up with CT imaging HPI: 68 yo female S/P SP left renal autotransplant and ureteral stent placement (03/02/24) Returns today for follow-up Recent CT imaging completed (04/26/24) Completed due to lower pelvic discomfort LABS: Creatinine Date Value Ref Range Status 03/04/2024 0.81 0.58 - 0.96 mg/dL Final 03/03/2024 0.89 0.58 - 0.96 mg/dL Final 03/02/2024 0.86 0.58 - 0.96 mg/dL Final Creatinine (POCT) Date Value Ref Range Status 04/26/2024 0.80 0.7 - 1.4 mg/dL Final IMAGING: CT abdomen/pelvis (04/30/24): 1. 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 Kidneys enhance symmetrically without hydronephrosis. 2. Punctate hyperdense foci in the region of the left ureterovesicular junction. Given lack of hydronephrosis, this likely reflect postoperative change from ureteral reimplantation although a punctate stone is difficult to exclude. 3. No acute process. 4. 0.5 cm subpleural nodule in the right lower lobe ALLERGIES: ALLERGIES Allergen Reactions Clindamycin Rash, Shortness of Breath Doxycycline Rash Venom-Honey Bee Rash Codeine GI Upset MEDICATIONS: Current Outpatient Medications Medication Sig tamsulosin (FLOMAX) 0.4 mg Take 1 capsule by mouth daily at bedtime. calcium carbonate/vitamin D3 (CALTRATE 600 + D ORAL) Take 600 mg by mouth two times a day. atorvastatin (LIPITOR) 20 mg tablet Take 20 mg by mouth every evening. fluticasone (FLONASE) 50 mcg/actuation nasal spray Use 1 Alsen in the nose as needed for cold/allergy symptoms. Take in allergy season gabapentin (NEURONTIN) 300 mg capsule Take 300 mg by mouth as needed for pain. montelukast (SINGULAIR) 10 mg tablet Take 10 mg by mouth once daily. ibuprofen (MOTRIN) 200 mg tablet Take 400 mg by mouth two times a day. 400-800 mg 3-4 PRN No current facility-administered medications for this visit. 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 PAST SURGICAL HISTORY 2020: PAST SURGICAL HISTORY OF; Right Comment: styloidectomy for beaver syndrome No date: PAST SURGICAL HISTORY OF Comment: R knee menisus repair No date: PAST SURGICAL HISTORY OF Comment: falloption tube tied 11/24/2023: PAST SURGICAL HISTORY OF Comment: right submandibular duct dilation with steroid irrigation No date: REMOVAL GALLBLADDER; N/A Comment: 1980s Social History Tobacco Use Smoking status: Former Packs/day: 1.00 Years: 27.00 Additional pack years: 0.00 Total pack years: 27.00 Types: Cigarettes Quit date: 2010 Years since quittin.6 Passive exposure: Never Smokeless tobacco: Never Vaping Use Vaping Use: Never used Substance Use Topics Alcohol use: Not Currently Drug use: Never REVIEW OF SYSTEMS General: No weight loss, malaise or fevers. Genitourinary: See HPI The remainder of the ROS was reviewed and negative. PHYSICAL EXAMINATION General: No acute distress Genitourinary: FEMALE EXAM: Exam NOT Indicated PROBLEMS: Patient is doing great Flank pain is gone Incision looks great She has some pelvic floor pain who she is seeing PT for She had a CT that looks great PLAN -Follow up as needed Chip Carr MD [facility] 05-27-2024 Instructions Augustina Vargas MD - 05/27/2024 9:39 AM EDT See pelvic floor PHYSICAL THERAPY You can search for others [email or web address], enter zip or city You can click on names for the bios if they have them Use flexeril vaginally at night We can see if botox vaginally is covered by the insurance F/u 3 month virtually You have tight pelvic floor muscles PATIENT INFORMATION ON PELVIC FLOOR DYSFUNCTION: Myofascial pain( also known as Pelvic floor dysfunction, high tone pelvic floor,pelvic floor tightness) : Based on the patient s physical exam and history, it is evident that there is a significant component of myofascial pain that is contributing to her symptoms. Myofascial pain is pain that arises from dysfunction, spasticity, and/or hypersensitivity of the muscle, fascia or joints in the abdominal wall, pelvic floor, and/or low back. This is an extremely common, but under-recognized source of pain in women with chronic pelvic pain. We discussed that the most effective treatment modality is usually physical therapy, and that it is extremely important that the patient be seen and evaluated by a physical therapist with specialty training in female pelvic pain. We have ordered a consult to a pelvic floor physical therapist. We counseled her that her pelvic pain may initially worsen during and after the first several visits, and that it may take time and repetitive visits before she notices an improvement. Unfortunately, there are few alternative treatments for this type of pain, and repetitive surgery can often make myofascial pain worse. Therefore, we strongly encouraged her to complete an entire course of physical therapy. If this treatment is not helpful, we are happy to discuss adjuvant therapies such as trigger point injections or muscle relaxers. SUGGESTED BEGINNER YOGA POSES: HAPPY BABY AND BRIDGE POSE Do reverse kegels , avoid kegel exercises until seen by physical therapist. Instagram: [email or web address] Thepelvicdancefariannaor Shira Ruby, pelvic floor PHYSICAL THERAPY Resources: Keri Grider P.T. [facility]vic [facility] (website and book and has DVDs that can be ordered) Www.pelvicpain.org (International pelvic pain society) FOR learning to cope with pain (the modules are free, lasting 1 min each) :www.retrainpain.org TIRED OF WAITING FOR PAIN TO GO AWAY? Learn a science based approach to overcome chronic pain. Contact information: My chart messages will go to the RN or wire saw operator first to be addressed. If questions are urgent, please call [phone] and press nurse prompt. For urgent Questions: call my psychiatric secretary with questions, appts related to chronic pelvic pain, Martinez Chowdary ,fax [phone] For refills, I prefer these be sent through [employer] We also have a nurse coordinatorZaynab Francis RN My schedule: I see patients in office Friday/Friday/ and Fridays: virtual visits only documented in this encounter [facility] 05-27-2024 Note HNO ID: [id number] Author: AUGUSTINA VARGAS MD Service: ? Author Type: Physician Type: Progress Notes Filed: 06/06/2024 23:06 Note Text: [facility] SECTION FOR CHRONIC PELVIC PAIN OUTPATIENT VISIT DATE 05/27/2024 OUTPATIENT VISIT TYPE CONSULT REFERRING PROVIDER: No ref. provider found PRIMARY CARE PROVIDER: Ammon Lucas MD PRIMARY NURSE CONSULTANT: Consultation requested by referring provider above for an opinion regarding Zaynab Zaidi, and my final recommendations will be communicated back to the requesting physician by way of shared medical record or letter via US mail. CHIEF COMPLAINT/REASON FOR CONSULTATION Chronic pelvic pain evaluation HISTORY OF PRESENT ILLNESS Zaynab is a 68 year od . who presents for evaluation of chronic pelvic pain. 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 It actually was very stressful, developed may a few month later; she tried to quit but asked to come back AND do half Pain started 18 months ago with UTI symptoms. Has gone to the ER for pain on multiple occasions. Vaginal varicose vein. 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 1 month after the job , felt like a UTi like burning, they did see microscopic blood in the urine. No kidney stone. Bc of the pain, Feels like something is falling out They did the ultrasound AND possibly saw a varicose vein; then saw [facility] marino ; told possibly PCS, then vascular surgeon in [place], ultrasound orders in 3 venograms done , they found PCS, 2nd one they planned to coil, when they went in, she said the pressure was too high. She left, went to see dr camp, felt NCS causing PCS, then had renal autotransplant. 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 Patient is postmenopausal. Cycles: Menopausal Last pap: Pap Results: WNL/neg HPV 03/2023 History of abnormal pap: No [place]: (MA intake) Dyspareunia: both insertional and deep Sex was not painful prior to onset of this pain. Pt is not currently active due to pain with intercourse. denies pain with external touch. Orgasm does not increase pain. OB Hx: (page 4) Number of pregnancies: 2 Number of deliveries: 2 Number of C/S: 0 Complications with delivery: none Pain characteristics: (page 5) Pain started (month/year): 11/2022 Inciting event: No obvious cause/do not know Onset: Gradual Duration of pain: 12 months-2 years Character of pain: Crampy, Heavy feeling in pelvis, Dull, achy, Pulling, tugging, Burning, and Falling out sensation Wakes from sleep: Yes Radiation of pain: Yes Aggravating factors: Walking, Climbing stairs, Urination, Stress, Housework, Getting in/out of car, and Bowel movements Alleviating factors: Lying down/rest, Ice or heating pad, Massage, and Ibuprofen/Tylenol Bowel habits: (page 12-13) Nausea/vomiting: endorses Diarrhea: denies Abdominal pain: endorses Bloating: endorses Constipation: endorses Increased pain with bowel movements: endorses Blood in stool: denies Pain with change in frequency of stool: endorses Pain with change in appearance of stool: endorses Pain changes with bowel movements: endorses. [place] scale: dnc Pudendal symptoms: (page 13) Pain located in clitoris, vulva/labia, or anus? endorses Numbness in same area: denies Worsened with sitting: endorses Pain wakes from sleep: endorses History of pudendal nerve block: denies If yes, improvement: denies History of severe sports injury: denies History of motor vehicle accident: denies History of fall injuries: denies Urinary habits: (page 14) Voids 7-10 times per day and 1 times at night. PUF: 16 (>19 suggests IC) Stress incontinence: endorses Urinary hesitancy/difficulty passing urine: denies Frequent bladder infections: denies Blood in urine: denies Incomplete emptying: denies Postvoid urgency: denies Urinary urgency: endorses History of abuse: (page 16) As a child <13:None As an adult: None Curr (more content not included)... [facility] 05-27-2024 History of Present illness Narrative Images from the original note were not included. [facility] SECTION FOR CHRONIC PELVIC PAIN OUTPATIENT VISIT DATE 05/27/2024 OUTPATIENT VISIT TYPE CONSULT REFERRING PROVIDER: No ref. provider found PRIMARY CARE PROVIDER: Ammon Lucas MD PRIMARY NURSE CONSULTANT: Consultation requested by referring provider above for an opinion regarding Zaynab Zaidi, and my final recommendations will be communicated back to the requesting physician by way of shared medical record or letter via US mail. CHIEF COMPLAINT/REASON FOR CONSULTATION Chronic pelvic pain evaluation HISTORY OF PRESENT ILLNESS Zaynab is a 68 year od . who presents for evaluation of chronic pelvic pain. 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 It actually was very stressful, developed may a few month later; she tried to quit but asked to come back & do half Pain started 18 months ago with UTI symptoms. Has gone to the ER for pain on multiple occasions. Vaginal varicose vein. 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 1 month after the job , felt like a UTi like burning, they did see microscopic blood in the urine. No kidney stone. Bc of the pain, Feels like something is falling out They did the ultrasound & possibly saw a varicose vein; then saw [facility] [employer] dr marino ; told possibly PCS, then vascular surgeon in [place], ultrasound orders in 3 venograms done , they found PCS, 2nd one they planned to coil, when they went in, she said the pressure was too high. She left, went to see dr camp, felt NCS causing PCS, then had renal autotransplant. 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 Patient is postmenopausal. Cycles: Menopausal Last pap: Pap Results: WNL/neg HPV 03/2023 History of abnormal pap: No [place]: ([place] intake) Dyspareunia: both insertional and deep Sex was not painful prior to onset of this pain. Pt is not currently active due to pain with intercourse. denies pain with external touch. Orgasm does not increase pain. OB Hx: (page 4) Number of pregnancies: 2 Number of deliveries: 2 Number of C/S: 0 Complications with delivery: none Pain characteristics: (page 5) Pain started (month/year): 11/2022 Inciting event: No obvious cause/do not know Onset: Gradual Duration of pain: 12 months-2 years Character of pain: Crampy, Heavy feeling in pelvis, Dull, achy, Pulling, tugging, Burning, and Falling out sensation Wakes from sleep: Yes Radiation of pain: Yes Aggravating factors: Walking, Climbing stairs, Urination, Stress, Housework, Getting in/out of car, and Bowel movements Alleviating factors: Lying down/rest, Ice or heating pad, Massage, and Ibuprofen/Tylenol Bowel habits: (page 12-13) Nausea/vomiting: endorses Diarrhea: denies Abdominal pain: endorses Bloating: endorses Constipation: endorses Increased pain with bowel movements: endorses Blood in stool: denies Pain with change in frequency of stool: endorses Pain with change in appearance of stool: endorses Pain changes with bowel movements: endorses. Pickens scale: dnc Pudendal symptoms: (page 13) Pain located in clitoris, vulva/labia, or anus? endorses Numbness in same area: denies Worsened with sitting: endorses Pain wakes from sleep: endorses History of pudendal nerve block: denies If yes, improvement: denies History of severe sports injury: denies History of motor vehicle accident: denies History of fall injuries: denies Urinary habits: (page 14) Voids 7-10 times per day and 1 times at night. PUF: 16 (>19 suggests IC) Stress incontinence: endorses Urinary hesitancy/difficulty passing urine: denies Frequent bladder infections: denies Blood in urine: denies Incomplete emptying: denies Postvoid urgency: denies Urinary urgency: endorses History of abuse: (page 16) As a child <13:None As an adult: None Current abuse: None Pain Scales PCS (page 8): 48 Moderate=40-49 PDI (page 16): 37 /70 (Higher values equal higher disability) PHQ-9 (page 17): 8 (Greater than 14 warrants treatment for depression) SHANIA 7 (page 17): 5 (Greater than 8 indicates probable anxiety disorder) [employer] ([place] intake) Currently is not working. Pain has forced a change in type of work. See scanned intake/data flow sheet for complete intake data. 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 Social History Tobacco Use Smoking status: Former Current packs/day: 0.00 Average packs/day: 1 pack/day for 27.0 years (27.0 ttl pk-yrs) Types: Cigarettes Start date: 1983 Quit date: 2010 Years since quittin.6 Passive exposure: Never Smokeless tobacco: Never Vaping Use Vaping status: Never Used Substance Use Topics Alcohol use: Not Currently Drug use: Never PAST SURGICAL HISTORY 2020: PAST SURGICAL HISTORY OF; Right Comment: styloidectomy for beaver syndrome No date: PAST SURGICAL HISTORY OF Comment: R knee menisus repair No date: PAST SURGICAL HISTORY OF Comment: falloption tube tied 11/24/2023: PAST SURGICAL HISTORY OF Comment: right submandibular duct dilation with steroid irrigation No date: REMOVAL GALLBLADDER; N/A Comment: 1980s 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 Current Outpatient Medications Medication Sig calcium carbonate/vitamin D3 (CALTRATE 600 + D ORAL) Take 600 mg by mouth two times a day. atorvastatin (LIPITOR) 20 mg tablet Take 20 mg by mouth every evening. fluticasone (FLONASE) 50 mcg/actuation nasal spray Use 1 Alsen in the nose as needed for cold/allergy symptoms. Take in allergy season gabapentin (NEURONTIN) 300 mg capsule Take 300 mg by mouth as needed for pain. montelukast (SINGULAIR) 10 mg tablet Take 10 mg by mouth once daily. ibuprofen (MOTRIN) 200 mg tablet Take 400 mg by mouth two times a day. 400-800 mg 3-4 PRN cyclobenzaprine (FLEXERIL) 5 mg tablet Take 1 tablet by mouth at bedtime as needed. tamsulosin (FLOMAX) 0.4 mg Take 1 capsule by mouth daily at bedtime. Current Facility-Administered Medications Medication Dose Route Frequency onabotulinum toxin type A 100 Units injection (BOTOX) 100 Units INTRAMUSCULAR q 3 MONTHS Allergies As of Date: 05/27/2024 Allergen Noted Reaction CLINDAMYCIN 06/30/2018 Rash and Shortness of Breath DOXYCYCLINE 12/18/2023 Rash VENOM-HONEY BEE 12/05/2019 Rash CODEINE 06/30/2018 GI Upset Fully Assessed 05/27/2024 PHYSICAL EXAMINATION BP 146/80 Ht 170.2 cm (5' 7 ) Wt 60.3 kg (133 lb) LMP (LMP Unknown) BMI 20.83 kg/m General: The patient is a well-appearing female in no acute distress. Abdomen: Soft, non-distended. No masses or hepatosplenomegaly noted. non-tender Carnett's sign: negative Incisions: Hernias: absent Back: Paraspinal tenderness: N/A SI tenderness: N/A Pelvic: Vulva: non-tender Normal external genitalia and hair distribution. Normal bartholin, urethra, skene's glands. No lesions. Vestibule: no lesions, non-tender Speculum exam: Deferred Vagina: [place], moist, well-rugated vagina without lesions. non-tender Cervix: no lesions, nontender Discharge: scant Bimanual exam: Urethra: non-tenderwithout masses. Bladder: non-tender Cervix: non-tender Uterus: Normal size, Anteverted, or Regular contour mobile and non-tender Vaginal fornices: non-tender Adnexa: no masses, nontender Uterosacral ligaments: non-tender . Nodularity is absent Rectovaginal septum: non-tender Rectum: Deferred as not indicated by patient symptoms. Pelvic Musculoskeletal: Vaginismus: absent Pubic symphysis: non-tender Ischial tuberosities: non-tender Anal wink: N/A RIGHT LEFT Superficial perineal Tone: Normal Pain: normal Tone: Normal Pain: normal Levator ani Tone: increased Pain: moderate Tone: increased Pain: moderate Pubococcygeus Puborectalis Iliococcygeus Obturator internus Tone: Normal Pain: normal Tone: Normal Pain: normal Sacrospinous ligament non-tender non-tender Pudendal nerve non-tender non-tender Pelvic floor exam does reproduce her typical pain symptoms Skin: Normal temperature. No edema. No visible skin lesions. Psych: Alert, oriented. Interactions: appropriate Affect: WNL and appropriate to content TESTING LABS: IMAGING: CT 04/2024 ct abd and pelvi s IMPRESSION: 1. 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 Kidneys enhance symmetrically without hydronephrosis. 2. Punctate hyperdense foci in the region of the left ureterovesicular junction. Given lack of hydronephrosis, this likely reflect postoperative change from ureteral reimplantation although a punctate stone is difficult to exclude. 3. No acute process. 4. 0.5 cm subpleural nodule in the right lower lobe Incidental Finding: Follow-up Acuity: Incidental Finding: Solid: <6 mm (solitary or multiple) Routing Code: N/A Recommendation: No imaging follow-up is recommended Time Frame: N/A Comments: If there are risk factors for lung malignancy, a follow-up chest CT exam could be obtained in 12 months --END OF FINDING-- Machine Filler Shredder: TRINI Transcribe Date/Time: Apr 30 2024 12:52P Dictated by : KARI LUJAN MD This examination was interpreted and the report reviewed and electronically signed by: KARI LUJAN MD on Apr 30 2024 1:16PM EST Results-Findings * * *Final Report* * * DATE OF EXAM: Apr 26 2024 2:30PM [facility] 0530 - CT ABD/PEL W IVCON / PROCEDURE REASON: kidney transplat status * * * * Physician Interpretation * * * * EXAMINATION: CT ABDOMEN AND PELVIS WITH IV CONTRAST CLINICAL HISTORY: Status post kidney transplant, pelvic pain, possible fistula, gassy TECHNIQUE: CT of the abdomen and pelvis was performed using standard technique, scanning from just above the dome of the diaphragm to the symphysis pubis. MQ: CTAP_3 Contrast: IV: 80 ml of Omnipaque 350 : ml of CT Radiation dose: Integrated Dose-length product (DLP) for this visit = 410 mGy*cm. CT Dose Reduction Employed: Automated exposure control (AEC) COMPARISON: None. RESULT: Liver: Mild hepatic steatosis. Subcentimeter hypodensity in the left hepatic lobe, too small to characterize. Biliary: Gallbladder is absent. Spleen: No mass. No splenomegaly. Pancreas: No mass or duct dilation. Adrenals: No mass. Kidneys: Left kidney has been auto-transplanted into the pelvis. Kidneys enhance symmetrically without hydronephrosis or renal stones. Punctate 0.3 cm hyperdensity in the region of the left UVJ. GI tract: Stomach is collapsed. Colon is normal in caliber without obstruction. Appendix is not definitely seen. Small bowel is normal in caliber without obstruction Lymph nodes: No abdominal or pelvic lymphadenopathy. Mesentery/Peritoneum: No ascites or mass. Retroperitoneum: No mass. Vasculature: - Abdominal aorta and iliac arteries: Atherosclerotic calcifications without aneurysm. - Celiac and SMA: Patent without stenosis. - Portal venous system (SMV, splenic vein, portal vein and branches): Patent. - Hepatic veins: Patent. Pelvis: Urinary bladder is under distended. Uterus is present. No pelvic lymphadenopathy. Bones/Soft Tissues: No suspicious osseous lesions. Degenerative changes in the thoracolumbar spine. Lower thorax: 0.5 cm subpleural nodule in the right lower lobe (60, 3) Localizer images: No additional findings. ASSESSMENT Encounter Diagnosis ICD-10-CM 1. 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 Chronic pelvic pain in female R10.2 G89.29 PLAN See pelvic floor PHYSICAL THERAPY You can search for others [email or web address], enter zip or city You can click on names for the bios if they have them Use flexeril vaginally at night We can see if botox vaginally is covered by the insurance F/u 3 month virtually You have tight pelvic floor muscles Dr.Jessica Vargas Section of Chronic Pelvic Pain 05/27/2024 8:42 AM Medical Decision Making: Problems: Moderate: 1+ chronic illnesses with change Data: Unique test result(s) reviewed: 1 Unique test(s) ordered: 1 Risk: Moderate: Moderate risk from testing/treatment and Drug management Medical Decision Making Level: 4 - Moderate ORDERS PLACED . Office Visit on 05/27/24 CONSULT TO PHYSICAL THERAPY cyclobenzaprine (FLEXERIL) 5 mg tablet onabotulinum toxin type A 100 Units injection (BOTOX) CPP SUMMARY DIAGNOSES: PFD , pelvic congestion, nutcracker syndrome Surgery 1. 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 Nonhormonal Medications 1. Flexeril 2 botox will check to see if approve 05/2024 3 gabapentin 300 mg 4 motrin Hormonal medications (IUD, control pill, GNRH) 1. Services (GI, urology, pain psych,PFPT) 1. documented in this encounter [facility] 05-27-2024 Note Patient Outreach (UR OLMN) ZAYNAB ZAIDI ([id number]) 1955 F Date Time Provider Department 05/27/24 CHIP CARR During your visit today, we recorded the following information about you: Allergies As of Date: 05/27/2024 Noted Allergy Reaction CLINDAMYCIN 06/30/2018 2 - Rash 12 - Shortness of Breath DOXYCYCLINE 12/18/2023 2 - Rash VENOM-HONEY BEE 12/05/2019 2 - Rash CODEINE 06/30/2018 8 - GI Upset Date Reviewed: 05/27/2024 Reviewed by: Radha Chen OCCA - Fully Assessed Visit Diagnosis:Screening for genitourinary condition [Z13.89] Order(s):URINALYSIS, REFLEX MICROSCOPIC [[id number]] Order #: [id number] URINALYSIS, REFLEX MICROSCOPIC [[id number]] Order #: [id number]. #:[id number] Prescriptions as of 05/31/2024 - cyclobenzaprine (FLEXERIL) 5 mg tablet Take 1 tablet by mouth at bedtime as needed. - tamsulosin (FLOMAX) 0.4 mg Take 1 capsule by mouth daily at bedtime. - calcium carbonate/vitamin D3 (CALTRATE 600 + D ORAL) Take 600 mg by mouth two times a day. - atorvastatin (LIPITOR) 20 mg tablet Take 20 mg by mouth every evening. - fluticasone (FLONASE) 50 mcg/actuation nasal spray Use 1 Alsen in the nose as needed for cold/allergy symptoms. Take in allergy season - gabapentin (NEURONTIN) 300 mg capsule Take 300 mg by mouth as needed for pain. - montelukast (SINGULAIR) 10 mg tablet Take 10 mg by mouth once daily. - ibuprofen (MOTRIN) 200 mg tablet Take 400 mg by mouth two times a day. 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] 02/19/2024 Other hyperlipidemia [E78.49] 02/19/2024 Ovarian varices [I86.2] 02/19/2024 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/2024 Narcotic drug use [F11.90] 02/19/2024 Sinus bradycardia on ECG [R00.1] 02/20/2024 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 Malnutrition of moderate degree (HCC) [E44.0] 03/03/2024 Encounter Status:Closed by SPARKLE, PRODUSER on 05/31/24 [facility] 04-26-2024 History of Present illness Narrative Radiology Service Progress Note PATIENT NAME: Zaynab Zaidi DATE OF SERVICE: April 26, 2024 TIME: 2:30 PM PATIENT IDENTITY VERIFICATION COMPLETED USING TWO (2) IDENTIFIERS: Name and Date of confirmed by patient verbally and Name and Date of confirmed by identification band. FALL SCREENING: Has the patient had 2 falls in the last year or 1 fall with injury or currently using an Ambulatory Assistive Device (Walker, Cane, Wheelchair, Crutches, etc.)? No PATIENT GENDER DATA: Female. status: : No status: NO. PATIENT RELEVANT IMPLANT DATA REVIEWED: Not Applicable PATIENT PRESENTS WITH AN IMPLANTABLE OR ATTACHED CRUISE AGENT: No RADIOLOGY DEPARTMENT: CT; Exam(s) Completed: Abdomen/Pelvis PERIPHERAL IV DATA: Site assessment: Clean,Dry and Intact, Site disposition Discontinued SIGNED BY: TECHNOLOGIST Yunier April 26, 2024 2:30 PM documented in this encounter [facility] 04-26-2024 Note HNO ID: [id number] Author: SARAH MEDRANO TECHNOLOGIST Service: ? Author Type: Technologist Type: Progress Notes Filed: 04/26/2024 14:30 Note Text: Radiology Service Progress Note PATIENT NAME: Zaynab Zaidi DATE OF SERVICE: April 26, 2024 TIME: 2:30 PM PATIENT IDENTITY VERIFICATION COMPLETED USING TWO (2) IDENTIFIERS: Name and Date of confirmed by patient verbally and Name and Date of confirmed by identification band. FALL SCREENING: Has the patient had 2 falls in the last year or 1 fall with injury or currently using an Ambulatory Assistive Device (Walker, Cane, Wheelchair, Crutches, etc.)? No PATIENT GENDER DATA: Female. status: : No status: NO. PATIENT RELEVANT IMPLANT DATA REVIEWED: Not Applicable PATIENT PRESENTS WITH AN IMPLANTABLE OR ATTACHED CRUISE AGENT: No RADIOLOGY DEPARTMENT: CT; Exam(s) Completed: Abdomen/Pelvis PERIPHERAL IV DATA: Site assessment: Clean,Dry and Intact, Site disposition Discontinued SIGNED BY: Sarah Medrano TECHNOLOGIST April 26, 2024 2:30 PM [facility] 04-26-2024 Nurse Note Radiology Service Progress Note DATE OF SERVICE: April 26, 2024 TIME: 1:22 PM PATIENT WEIGHT: 133LBS PATIENT IDENTITY VERIFICATION COMPLETED USING TWO (2) STANDARD IDENTIFIERS: Name and Date of confirmed by patient verbally and Name and Date of confirmed by identification band. FALL SCREENING: Has the patient had 2 falls in the last year or 1 fall with injury or currently using an Ambulatory Assistive Device (Walker, Cane, Wheelchair, Crutches, etc.)? No PATIENT GENDER DATA: Female. status: : No status: NO. ALLERGIES: Reviewed and unchanged CONTRAST ALLERGY: No EXAM: CT -CONTRAST INDUCED NEPHROPATHY RISK FACTORS: Patient age > 60 years and History of Kidney surgery, Kidney neoplasm, Liver disease, and/or any recent Nephrotoxic Chemotherapy or other Nephrotoxic medications CREATININE: Creatinine Date Value Ref Range Status 03/04/2024 0.81 0.58 - 0.96 mg/dL Final 03/03/2024 0.89 0.58 - 0.96 mg/dL Final 03/02/2024 0.86 0.58 - 0.96 mg/dL Final Estimated Glomerular Filtration Rate Date Value Ref Range Status 03/04/2024 80 >=60 mL/min/1.73m Final Comment: Estimated Glomerular Filtration Rate (eGFR) is calculated using the 2020 CKD-EPI creatinine equation. This equation utilizes serum creatinine, sex, and age as parameters. The creatinine assay has traceable calibration to isotope dilution-mass spectrometry. Refer to KDIGO guidelines for clinical interpretation. In patients with unstable renal function, e.g. those with acute kidney injury, the eGFR may not accurately reflect actual GFR. P.O.C.T. RESULTS: POC done: Yes, See Lab Tab April 26, 2024 Cr. 0.8 TREATMENT: N/A IV SITE: Ambulatory: A peripheral IV was started in the Right antecubital site with a Angio cath: 20 gauge. and A Saline lock was inserted per protocol IV SITE APPEARANCE: Clean,Dry and Intact SIGNATURE: Alysha Dale RN PATIENT NAME: Zaynab Zaidi DATE: April 26, 2024 TIME: 1:22 PM [facility] 04-26-2024 Nurse Note Radiology Service Progress Note DATE OF SERVICE: April 26, 2024 TIME: 1:22 PM PATIENT WEIGHT: 133LBS PATIENT IDENTITY VERIFICATION COMPLETED USING TWO (2) STANDARD IDENTIFIERS: Name and Date of confirmed by patient verbally and Name and Date of confirmed by identification band. FALL SCREENING: Has the patient had 2 falls in the last year or 1 fall with injury or currently using an Ambulatory Assistive Device (Walker, Cane, Wheelchair, Crutches, etc.)? No PATIENT GENDER DATA: Female. status: : No status: NO. ALLERGIES: Reviewed and unchanged CONTRAST ALLERGY: No EXAM: CT -CONTRAST INDUCED NEPHROPATHY RISK FACTORS: Patient age > 60 years and History of Kidney surgery, Kidney neoplasm, Liver disease, and/or any recent Nephrotoxic Chemotherapy or other Nephrotoxic medications CREATININE: Creatinine Date Value Ref Range Status 03/04/2024 0.81 0.58 - 0.96 mg/dL Final 03/03/2024 0.89 0.58 - 0.96 mg/dL Final 03/02/2024 0.86 0.58 - 0.96 mg/dL Final Estimated Glomerular Filtration Rate Date Value Ref Range Status 03/04/2024 80 >=60 mL/min/1.73m Final Comment: Estimated Glomerular Filtration Rate (eGFR) is calculated using the 2020 CKD-EPI creatinine equation. This equation utilizes serum creatinine, sex, and age as parameters. The creatinine assay has traceable calibration to isotope dilution-mass spectrometry. Refer to KDIGO guidelines for clinical interpretation. In patients with unstable renal function, e.g. those with acute kidney injury, the eGFR may not accurately reflect actual GFR. P.O.C.T. RESULTS: POC done: Yes, See Lab Tab April 26, 2024 Cr. 0.8 TREATMENT: N/A IV SITE: Ambulatory: A peripheral IV was started in the Right antecubital site with a Angio cath: 20 gauge. and A Saline lock was inserted per protocol IV SITE APPEARANCE: Clean,Dry and Intact SIGNATURE: Alysha Dale RN PATIENT NAME: Zaynab Zaidi DATE: April 26, 2024 TIME: 1:22 PM documented in this encounter [facility] 04-21-2024 Telephone encounter Note Called pt to discuss her postop questions. Discussed no restrictions on activity, swimming, driving, etc. Still having some pain in pelvis but flank pain and other symptoms have improved. Inquiring about f/up -- had stent removed on 04/07. Will set up 3 jorge post op f/up. She is seeing gynecology at [facility] on 05/27, will try to coordinate appt w/ Dr. Carr on that day. Jesús Borrero MD [facility] Work Phone: 04-21-2024 Miscellaneous Notes Called pt to discuss her postop questions. Discussed no restrictions on activity, swimming, driving, etc. Still having some pain in pelvis but flank pain and other symptoms have improved. Inquiring about f/up -- had stent removed on 04/07. Will set up 3 jorge post op f/up. She is seeing gynecology at [facility] on 05/27, will try to coordinate appt w/ Dr. Carr on that day. Jesús Borrero MD documented in this encounter [facility] 04-10-2024 Note HNO ID: [id number] Author: ALLEN HERRERA MD Service: ? Author Type: Physician Type: Procedures Filed: 04/10/2024 10:59 Note Text: Zaynab Zaidi is a 68 year old female who presents with s/p autotransplantation for cystoscopy and stent removal. A urinalysis was performed revealing no evidence of infection. The benefits, risks, alternatives of the cystoscopy procedure and personnel were discussed with the patient, and verbal consent was obtained and the patient agrees to proceed. Prophylaxis with Cipro 500 mg was given to the patient prior to the procedure. Procedure: The patient was placed on the procedure table in the supine position and prepped and draped in the usual sterile fashion. 2% Lidocaine Jelly was placed per urethra as an anesthetic in the standard fashion. Once adequate local anesthesia was achieved, the tip of the flexible cystoscope was carefully placed into the urethra under direct video visual guidance and the procedure was performed, with the findings as follows: Meatus: Normal Urethra: Normal Bladder Neck: Normal Bladder: No lesions were seen. Ureteral orifices were visualized in their normal configuration with clear efflux. Significant trabeculation was not noted. Using a grasping forceps, Left autotransplant stent was removed without difficulty. At the conclusion of the procedure, the flexible cystoscope was removed atraumatically. The patient tolerated the procedure without complications. Patient was given standard post-procedure instructions, and was directed to complete the course of oral antibiotics and increase oral fluid intake as directed. ASSESSMENT: s/p autotransplantation PLAN: follow up as scheduled Allen Herrera MD [facility] 04-10-2024 Procedure note Zaynab Zaidi is a 68 year old female who presents with s/p autotransplantation for cystoscopy and stent removal. A urinalysis was performed revealing no evidence of infection. The benefits, risks, alternatives of the cystoscopy procedure and personnel were discussed with the patient, and verbal consent was obtained and the patient agrees to proceed. Prophylaxis with Cipro 500 mg was given to the patient prior to the procedure. Procedure: The patient was placed on the procedure table in the supine position and prepped and draped in the usual sterile fashion. 2% Lidocaine Jelly was placed per urethra as an anesthetic in the standard fashion. Once adequate local anesthesia was achieved, the tip of the flexible cystoscope was carefully placed into the urethra under direct video visual guidance and the procedure was performed, with the findings as follows: Meatus: Normal Urethra: Normal Bladder Neck: Normal Bladder: No lesions were seen. Ureteral orifices were visualized in their normal configuration with clear efflux. Significant trabeculation was not noted. Using a grasping forceps, Left autotransplant stent was removed without difficulty. At the conclusion of the procedure, the flexible cystoscope was removed atraumatically. The patient tolerated the procedure without complications. Patient was given standard post-procedure instructions, and was directed to complete the course of oral antibiotics and increase oral fluid intake as directed. ASSESSMENT: s/p autotransplantation PLAN: follow up as scheduled Allen Herrera MD [facility] 04-10-2024 Procedure note Zaynab Zaidi is a 68 year old female who presents with s/p autotransplantation for cystoscopy and stent removal. A urinalysis was performed revealing no evidence of infection. The benefits, risks, alternatives of the cystoscopy procedure and personnel were discussed with the patient, and verbal consent was obtained and the patient agrees to proceed. Prophylaxis with Cipro 500 mg was given to the patient prior to the procedure. Procedure: The patient was placed on the procedure table in the supine position and prepped and draped in the usual sterile fashion. 2% Lidocaine Jelly was placed per urethra as an anesthetic in the standard fashion. Once adequate local anesthesia was achieved, the tip of the flexible cystoscope was carefully placed into the urethra under direct video visual guidance and the procedure was performed, with the findings as follows: Meatus: Normal Urethra: Normal Bladder Neck: Normal Bladder: No lesions were seen. Ureteral orifices were visualized in their normal configuration with clear efflux. Significant trabeculation was not noted. Using a grasping forceps, Left autotransplant stent was removed without difficulty. At the conclusion of the procedure, the flexible cystoscope was removed atraumatically. The patient tolerated the procedure without complications. Patient was given standard post-procedure instructions, and was directed to complete the course of oral antibiotics and increase oral fluid intake as directed. ASSESSMENT: s/p autotransplantation PLAN: follow up as scheduled Allen Herrera MD documented in this encounter [facility] 04-07-2024 Note HNO ID: [id number] Author: IGLESIA LOVE RN Service: ? Author Type: Registered Nurse Type: Progress Notes Filed: 04/07/2024 15:48 Note Text: UNIVERSAL PROTOCOL / SAFETY CHECKLIST Procedure to be Performed: Cystoscopy and Stent Extraction Sign In: A Moment of CARE was completed. Personnel directly involved with the procedure wore the appropriate PPE (Personal Protective Equipment). No special equipment needed. Patient/Surrogate Stated/Verified: PATIENT VERIFIED(optional for EMERGENT procedures): Patient name, Date of , Relevant allergies, and The intended procedure Time Out Communication: Intended patient and procedure match the source documents. Consent documented and matches the intended procedure. Relevant labs, photos, and/or imaging studies have been reviewed. No correct side/site applicable for marking and visibility. Medications required for procedure verified. Fire risk assessed and interventions discussed. No implant(s) inserted. Sign Out: SIGN OUT (optional for EMERGENT procedures): No specimen collected. All instruments, equipment, possible retained foreign bodies accounted for. Post-procedure follow-up management communicated and Plan of Care Visit completed when applicable. Iglesia Love RN [facility] 04-07-2024 History of Present illness Narrative UNIVERSAL PROTOCOL / SAFETY CHECKLIST Procedure to be Performed: Cystoscopy and Stent Extraction Sign In: A Moment of CARE was completed. Personnel directly involved with the procedure wore the appropriate PPE (Personal Protective Equipment). No special equipment needed. Patient/Surrogate Stated/Verified: PATIENT VERIFIED(optional for EMERGENT procedures): Patient name, Date of , Relevant allergies, and The intended procedure Time Out Communication: Intended patient and procedure match the source documents. Consent documented and matches the intended procedure. Relevant labs, photos, and/or imaging studies have been reviewed. No correct side/site applicable for marking and visibility. Medications required for procedure verified. Fire risk assessed and interventions discussed. No implant(s) inserted. Sign Out: SIGN OUT (optional for EMERGENT procedures): No specimen collected. All instruments, equipment, possible retained foreign bodies accounted for. Post-procedure follow-up management communicated and Plan of Care Visit completed when applicable. Iglesia Love RN documented in this encounter [facility] 04-07-2024 Nurse Note The procedure started at ( Time Only): 1246 The procedure ended at: 1247 Was the procedure delayed: Yes: Provider late: Provider in OR The patient left the procedure room at: 1259 Iglesia Love RN PRE PROCEDURE ASSESSMENT- Cysto Pre-Procedure Vital Signs: BP: 150/83 Pulse: 74 Iglesia Love RN UNIVERSAL PROTOCOL / SAFETY CHECKLIST Procedure to be performed: Cystoscopy and Stent Extraction Sign in Communication: Completed Time Out: Team Confirms the Correct Patient, Correct Procedure, Correct Site and Site Marking, Correct Position (if applicable). Sign Out Discussion: Completed Iglesia Love RN POST PROCEDURE NURSE ASSESSMENT Present along with physician during procedure exam. Iglesia Love RN Instruction sheet given and reviewed and patient verbalizes understanding: yes Post Procedure Antibiotic: None Current pain intensity is rated at 7 on a 0-10 scale. Location: abd/pelvic region & back Pain Character :unable to describe pain Frequency (How often does it occur?) occurs constantly Duration (How long have you had the pain?) unknown Iglesia Love RN [facility] 04-07-2024 Nurse Note The procedure started at ( Time Only): 1246 The procedure ended at: 1247 Was the procedure delayed: Yes: Provider late: Provider in OR The patient left the procedure room at: 1259 Iglesia Love RN PRE PROCEDURE ASSESSMENT- Cysto Pre-Procedure Vital Signs: BP: 150/83 Pulse: 74 Iglesia Love RN UNIVERSAL PROTOCOL / SAFETY CHECKLIST Procedure to be performed: Cystoscopy and Stent Extraction Sign in Communication: Completed Time Out: Team Confirms the Correct Patient, Correct Procedure, Correct Site and Site Marking, Correct Position (if applicable). Sign Out Discussion: Completed Iglesia Love RN POST PROCEDURE NURSE ASSESSMENT Present along with physician during procedure exam. Iglesia Love RN Instruction sheet given and reviewed and patient verbalizes understanding: yes Post Procedure Antibiotic: None Current pain intensity is rated at 7 on a 0-10 scale. Location: abd/pelvic region & back Pain Character :unable to describe pain Frequency (How often does it occur?) occurs constantly Duration (How long have you had the pain?) unknown Iglesia Love RN Actual procedure/procedure scheduled: Yes Performing provider/scheduled provider: Yes Patient was roomed in: Q9- Manager Meeting offered:Patient declines Patient arrived in the room at: 1100 Patient ready for procedure: 1115 Pretty Rahman RN PRE PROCEDURE ASSESSMENT- Cysto Procedure Indication: Cystoscopy and Stent Extraction Latex Allergy: No Allergies reviewed and updated. Yes Heart valve replacement: No Joint replacement: No Back Office UA otained: no PROCEDURE PREP-Cysto Patient ID with two(2)identifiers verified by: Pretty Rahman RN Pre-Procedure Antibiotics: None taken at home nor prior to procedure Patient Prep: Betadine Scrub to perineum and placement of Sterile Drape. COMPLETED Anesthetic Given:10 cc 2% Lidocaine jebenjay DIANE Mccloud RN took over care. See her note for procedure details. documented in this encounter [facility] 04-07-2024 Nurse Note Actual procedure/procedure scheduled: Yes Performing provider/scheduled provider: Yes Patient was roomed in: Q9 Manager Meeting offered:Patient declines Patient arrived in the room at: 1100 Patient ready for procedure: 1115 Pretty Rahman RN PRE PROCEDURE ASSESSMENT- Cysto Procedure Indication: Cystoscopy and Stent Extraction Latex Allergy: No Allergies reviewed and updated. Yes Heart valve replacement: No Joint replacement: No Back Office UA otained: no PROCEDURE PREP-Cysto Patient ID with two(2)identifiers verified by: Pretty Rahman RN Pre-Procedure Antibiotics: None taken at home nor prior to procedure Patient Prep: Betadine Scrub to perineum and placement of Sterile Drape. COMPLETED Anesthetic Given:10 cc 2% Lidocaine jebenjay DIANE Mccloud RN took over care. See her note for procedure details. [facility] 03-05-2024 Note HNO ID: [id number] Author: ACE VERA MD Service: Urology Author Type: Resident Type: Progress Notes Filed: 03/10/2024 12:36 Note Text: Documentation Query Based on your medical judgment of the clinical indicators outlined below, please clarify the condition: (Please type X next to your response and sign) Nutrition Assessment: Recommended Malnutrition Diagnosis: Moderate Protein-Calorie Malnutrition In the context of: Chronic Illness or Injury Based on: Insufficient Energy Intake, Muscle Loss, Subcutaneous Fat Loss Problem: Increased nutrient needs Related to: Chronic illness As evidenced by: Depletion of fat/muscle stores, Food/nutrition related history, Intake records, Medical condition, Patient/family self-report Physical Exam: Subcutaneous fat loss: Mild Muscle loss: Moderate Potential micronutrient deficiency: No deficiency identified BMI 20.92 Treatment: Tube Feedings Please clarify the Patient's Nutritional Status X Moderate Protein Calorie Malnutrition based on the above assessment, plan, and treatment Other, please specify [facility] 03-05-2024 Note HNO ID: [id number] Author: DARBY RODRIGUEZ RPh Service: Pharmacy Author Type: Pharmacist Type: Plan of Care Filed: 03/05/2024 10:36 Note Text: DISCHARGE MEDICATION REVIEW BY PHARMACY Patient Name: Zaynab Zaidi Account #: Data Unavailable Admission Date: 03/02/2024 Date of Contact: March 05, 2024 Time of Contact: 10:36 AM Medication list was reviewed by a Pharmacist for drug interactions or drug related problems:Yes Below is a summary of pharmacist recommendations discussed with LIP: No Recommendations at this time from Discharge Medication List. Thank you, Darby Rodriguez, PharmD, BCPS [facility] Clinical Loop Cutter Phone: [phone] Creatinine clearance cannot be calculated (Unknown ideal weight.) 03/05/2024 10:36 AM Medication List START taking these medications acetaminophen 500 mg tablet Commonly known as: TYLENOL EXTRA STRENGTH Take 1 tablet by mouth every 6 hours as needed for pain for up to 7 days. docusate sodium 100 mg capsule Commonly known as: COLACE Take 1 capsule by mouth two times a day for 14 days. methocarbamol 750 mg tablet Commonly known as: ROBAXIN Take 1 tablet by mouth four times a day as needed for up to 5 days. oxyCODONE IR 5 mg immediate release tablet Commonly known as: ROXICODONE Take 1 tablet by mouth every 8 hours as needed for up to 5 days. tamsulosin 0.4 mg Commonly known as: FLOMAX Take 1 capsule by mouth daily at bedtime. CONTINUE taking these medications atorvastatin 20 mg tablet Commonly known as: LIPITOR CALTRATE 600 + D ORAL fluticasone 50 mcg/actuation nasal spray Commonly known as: FLONASE gabapentin 300 mg capsule Commonly known as: NEURONTIN ibuprofen 200 mg tablet Commonly known as: MOTRIN montelukast 10 mg tablet Commonly known as: SINGULAIR STOP taking these medications HYDROcodone-acetaminophen 5-325 mg per tablet Commonly known as: NORCO Where to Get Your Medications These medications were sent to [id number] - [place] [address] - [address] [facility] - [phone] [place] [address] acetaminophen 500 mg tablet docusate sodium 100 mg capsule methocarbamol 750 mg tablet oxyCODONE IR 5 mg immediate release tablet tamsulosin 0.4 mg [facility] 03-05-2024 Note HNO ID: [id number] Author: HELENA MERRILL ? Service: Pharmacy Author Type: Employment Training Specialist Type: Plan of Care Filed: 03/05/2024 08:26 Note Text: Insurance investigation completed Patient has active prescription insurance: Yes - Patient's insurance is in-network with [facility] Insurance loaded into [place]: Yes Test claim was completed to verify insurance is active: Successful Any questions, please contact your medication pharmacy clinical coordinator. Pager #: [phone] [facility] 03-05-2024 Note HNO ID: [id number] Author: ACE VERA MD Service: Urology Author Type: Resident Type: Progress Notes Filed: 03/05/2024 07:10 Note Text: [facility] UROLOGY PROGRESS NOTE Name: Zaynab Zaidi DATE: 03/05/2024 After Hours [facility] Urology Service Pager: [phone] ASSESSMENT Zaynab Zaidi is a 68 year old female with history of coronary artery sclerosis, AAA, tension headaches, colon polyp, dysphagia, PVD, female pelvic congestion syndrome, jugular vein stenosis, and chronic left flank pain who is now 3 Days Post-Op s/p LET 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 Interval history/Subjective: No acute events overnight. Afebrile and vital signs stable - Hgb 13.9 (pre-op) - 12.6 -12.0- 12.8 - Cr 0.81 (pre-op) - 0.86 - 0.89 -0.81 - UOP 2.7 L, clear - +Flatus, pain well controlled, pt is ready to go home -Pain: Controlled -N/V: No -Bowel function: passing flatus -Ambulating: Yes x3 OVERALL PLAN: - Maintain kirk one week - Maintain ureteral stent for 4-6 weeks #Disposition - discharge home today PLAN BY SYSTEM: #Neuro - - Pain control with multimodal IV and PO analgesia #CV/Resp - - Hemodynamically stable - Encourage IS # Heme - Expected decrease in hgb secondary to surgery #FEN - -Diet:Gastrointestinal soft diet with supplements -IVF: KVO # - - Creatinine is stable and close to baseline - Kirk in place, will maintain on discharge #Activity - OOB to chair and ambulate with assistance #DVT prophylaxis - B/l sequential compression device, heparin 5k BID #ID/Antibiotics - Perioperative IV ancef #Secondary Dx/Complications- See active problems below #Discharge teaching - routine Active Problems Nutcracker syndrome/left flank pain, POA, s/p left autotransplant Plan to be discussed with staff Dr. Epi Vera MD PGY-5 Resident Urology Pager#: Weekdays from 7 AM - 5 PM [phone] Pager #: After 5 PM and on WEEKENDS [phone] Objective Vital Signs BP 102/56 Pulse 66 Temp 36.8 ?C (98.2 ?F) (Oral) Resp 16 LMP (LMP Unknown) SpO2 96% There is no height or weight on file to calculate BMI. 03/04/24201003/04/24 23303/04/24 2335 03/05/24 0245 BP: 124/60 107/62 102/56 Pulse: 79 63 61 66 Resp: 16 16 16 Temp: 36.8 ?C (98.2 ?F) 36.6 ?C (97.9 ?F) 36.8 ?C (98.2 ?F) TempSrc: Oral Oral Oral SpO2: 95% 95% 95% 96% Creatinine Date Value Ref Range Status 03/04/2024 0.81 0.58 - 0.96 mg/dL Final 03/03/2024 0.89 0.58 - 0.96 mg/dL Final 03/02/2024 0.86 0.58 - 0.96 mg/dL Final 02/19/2024 0.81 0.58 - 0.96 mg/dL Final Recent Labs 03/04/24 0137 03/03/24 0117 03/02/24 1432 WBC 7.48 8.63 12.28* HB 12.8 12.0 12.6 HCT 38.2 37.2 38.1 PLT 154 188 210 NA 138 138 141 K 3.9 4.3 4.5 CHLOR 98 100 107* CO2 31* 26 24 BUN 10 15 13 CREAT 0.81 0.89 0.86 GLUC 103* 129* 192* Input and Output Date 03/04/24699 - 03/05/2465803/05/24 07 - 03/06/24 0659 Shift 6378-3048 1709-1765 9231-4017 24 Hour Total 2153-6138 1861-6995 1392-1383 24 Hour Total INTAKE PO 500 905 327 5843 PO 500 300 641 0523 Shift Total 500 309 819 6501 OUTPUT Urine 650 9754 986 0794 Output ( Indwelling Urinary Catheter 03/02/24 0814 [facility] Kirk 18 Fr) 650 8196 720 3083 # of BMs Number of BMs 0 x 0 x Shift Total 650 0247 934 4192 Weight (kg) Physical Exam General: Well-appearing, no acute distress CV: HDS Lungs: Unlabored breathing on room air L Abdomen: Soft, non-distended Wound: Incisions appropriately tender and clean, dry, and intact : Kirk in place draining clear yellow urine Extremities: Normal. No LE edema [facility] 03-04-2024 Note HNO ID: [id number] Author: ACE VERA MD Service: Urology Author Type: Resident Type: Progress Notes Filed: 03/04/2024 09:24 Note Text: [facility] UROLOGY PROGRESS NOTE Name: Zaynab Zaidi DATE: 03/04/2024 After Hours [facility] Service Pager: [phone] ASSESSMENT Zaynab Zaidi is a 68 year old female with history of coronary artery sclerosis, AAA, tension headaches, colon polyp, dysphagia, PVD, female pelvic congestion syndrome, jugular vein stenosis, and chronic left flank pain who is now 2 Days Post-Op s/p LET 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 Interval history/Subjective: No acute events overnight. Afebrile and vital signs stable - Hgb 13.9 (pre-op) - 12.6 -12.0- 12.8 - Cr 0.81 (pre-op) - 0.86 - 0.89 -0.81 - UOP 5.6 L, light pink to clear -Pain: Uncontrolled, reports she had 10/10 pain overnight -N/V: No -Bowel function: no flatus -Ambulating: Yes x3 OVERALL PLAN: - Ambulate around unit with nursing assistance x4 - KVO fluids - Optimize pain control with lidocaine patch and robaxin - Encourage ICS - Maintain kirk one week - Maintain ureteral stent for 4-6 weeks #Disposition - pending clinical course once pain is well controlled will plan for dc PLAN BY SYSTEM: #Neuro - - Pain control with multimodal IV and PO analgesia #CV/Resp - - Hemodynamically stable - Encourage IS # Heme - Expected decrease in hgb secondary to surgery #FEN - -Diet:Gastrointestinal soft diet with supplements -IVF: KVO # - - Creatinine is stable and close to baseline - Kirk in place, will maintain on discharge #Activity - OOB to chair and ambulate with assistance #DVT prophylaxis - B/l sequential compression device, heparin 5k BID #ID/Antibiotics - Perioperative IV ancef #Secondary Dx/Complications- See active problems below #Discharge teaching - routine Active Problems Nutcracker syndrome/left flank pain, POA, s/p left autotransplant Plan discussed with staff Dr. Epi Vera MD PGY-5 Resident Urology Pager#: Weekdays from 7 AM - 5 PM [phone] Pager #: After 5 PM and on WEEKENDS [phone] Objective Vital Signs BP 141/84 Pulse 88 Temp 36.8 ?C (98.2 ?F) (Oral) Resp 16 LMP (LMP Unknown) SpO2 94% There is no height or weight on file to calculate BMI. 03/03/24 1600 03/03/24 1936 03/03/24 2327 03/04/24 0258 BP: 152/84 136/71 150/64 141/84 Pulse: 69 67 81 88 Resp: 18 16 16 16 Temp: 36.9 ?C (98.5 ?F) 36.7 ?C (98.1 ?F) 36.6 ?C (97.9 ?F) 36.8 ?C (98.2 ?F) TempSrc: Oral Oral Oral Oral SpO2: 99% 97% 94% 94% Creatinine Date Value Ref Range Status 03/04/2024 0.81 0.58 - 0.96 mg/dL Final 03/03/2024 0.89 0.58 - 0.96 mg/dL Final 03/02/2024 0.86 0.58 - 0.96 mg/dL Final 02/19/2024 0.81 0.58 - 0.96 mg/dL Final Recent Labs 03/04/24 0137 03/03/24 0117 03/02/24 1432 WBC 7.48 8.63 12.28* HB 12.8 12.0 12.6 HCT 38.2 37.2 38.1 PLT 154 188 210 NA 138 138 141 K 3.9 4.3 4.5 CHLOR 98 100 107* CO2 31* 26 24 BUN 10 15 13 CREAT 0.81 0.89 0.86 GLUC 103* 129* 192* Input and Output Date 03/03/24699 - 03/04/2465803/04/24699 - 03/05/24658 Shift 7111-0729 2133-6662 8563-6312 24 Hour Total 5594-4968 1208-8651 4489-2962 24 Hour Total INTAKE PO 240 819 385 8239 PO 240 297 096 3094 IV 2623 567 4889 Volume (mL) (lactated ringers iv infusion) 0533 039 7341 Shift Total 1887 042 880 4689 OUTPUT Urine 1372049 5625 Output ( Indwelling Urinary Catheter 03/02/24 0814 [facility] Kirk 18 Fr) 1372049 5625 # of BMs Number of BMs 0 x 0 x 0 x Shift Total 1374 2049 2199 5625 Weight (kg) Physical Exam General: Well-appearing, no acute distress CV: HDS Lungs: Unlabored breathing on nasal canula 2 L Abdomen: Soft, non-distended Wound: Incisions appropriately tender and clean, dry, and intact : Kirk in place draining light pink urine Extremities: Normal. No LE edema [facility] 03-03-2024 Note HNO ID: [id number] Author: ANNALISE TUCKER RN Service: Care Management Author Type: Registered Nurse Type: Care Mgt Initial Assessment Filed: 03/03/2024 10:01 Note Text: CARE MANAGEMENT: ASSESSMENT AND DISCHARGE PLAN SERVICE DATE: March 03, 2024 SERVICE TIME: 10:01 AM This patient has been screened for Care Management Transitional Planning Services. At this time, it does not appear this patient will require transition planning services. Should this change, and the patient require transition planning services during this admission, please contact Case Management. SIGNATURE: Annalise Tucker RN PATIENT NAME: Zaynab Zaidi DATE: March 03, 2024 TIME: 10:01 AM CONTACT #: [phone] [facility] 03-03-2024 Note HNO ID: [id number] Author: ACE VERA MD Service: Urology Author Type: Resident Type: Progress Notes Filed: 03/03/2024 08:59 Note Text: [facility] UROLOGY PROGRESS NOTE Name: Zaynab Zaidi DATE: 03/03/2024 After Hours [facility] Service Pager: [phone] ASSESSMENT Zaynab Zaidi is a 68 year old female with history of coronary artery sclerosis, AAA, tension headaches, colon polyp, dysphagia, PVD, female pelvic congestion syndrome, jugular vein stenosis, and chronic left flank pain who is now 1 Day Post-Op s/p LET 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 Interval history/Subjective: No acute events overnight. Afebrile and vital signs stable - Hgb 13.9 (pre-op) - 12.6 -12.0 - Cr 0.81 (pre-op) - 0.86 - 0.89 - UOP 2.1L, light pink to clear -Pain: Controlled -N/V: No -Bowel function: no flatus -Ambulating: No OVERALL PLAN: - Ambulate around unit with nursing assistance x3 - Decrease mIVF to 50 cc/hr - Wean off NC - Encourage ICS - Maintain kirk one week - Maintain ureteral stent for 4-6 weeks #Disposition - pending clinical course PLAN BY SYSTEM: #Neuro - - Pain control with multimodal IV and PO analgesia #CV/Resp - - Hemodynamically stable - Encourage IS # Heme - Expected decrease in hgb secondary to surgery #FEN - -Diet:Clear liquid diet -IVF: Lactated ringers @ 50 # - - Creatinine is stable and close to baseline - Kirk in place, will maintain on discharge #Activity - OOB to chair and ambulate with assistance #DVT prophylaxis - B/l sequential compression device, heparin 5k BID #ID/Antibiotics - Perioperative IV ancef #Secondary Dx/Complications- See active problems below #Discharge teaching - routine Active Problems Left flank pain, POA, s/p left autotransplant Plan discussed with staff Dr. Epi Vera MD PGY-5 Resident Urology Pager#: Weekdays from 7 AM - 5 PM [phone] Pager #: After 5 PM and on WEEKENDS [phone] Objective Vital Signs BP 126/64 Pulse 73 Temp 37.2 ?C (99 ?F) (Oral) Resp 18 LMP (LMP Unknown) SpO2 98% There is no height or weight on file to calculate BMI. 03/02/24 1630 03/02/24 1722 03/03/24 0106 03/03/24 0343 BP: 124/62 116/50 134/69 126/64 Pulse: 69 63 80 73 Resp: 17 16 18 18 Temp: 36.6 ?C (97.9 ?F) 36.7 ?C (98.1 ?F) 37.2 ?C (99 ?F) TempSrc: Oral Oral Oral SpO2: 98% 98% 100% 98% Creatinine Date Value Ref Range Status 03/03/2024 0.89 0.58 - 0.96 mg/dL Final 03/02/2024 0.86 0.58 - 0.96 mg/dL Final 02/19/2024 0.81 0.58 - 0.96 mg/dL Final Recent Labs 03/03/24 0117 03/02/24 1432 WBC 8.63 12.28* HB 12.0 12.6 HCT 37.2 38.1 PLT 188 210 NA 138 141 K 4.3 4.5 CHLOR 100 107* CO2 26 24 BUN 15 13 CREAT 0.89 0.86 GLUC 129* 192* Input and Output Date 03/02/24 07 - 03/03/24 0659 03/03/24 07 - 03/04/24 0659 Shift 9564-4114 6969-8425 1973-5504 24 Hour Total 7706-9622 1934-9517 3479-9051 24 Hour Total INTAKE PO 120 120 120 120 PO 120 120 120 120 IV 3000 160 3160 1647 1647 Volume (mL) (lactated ringers iv infusion) 2000 2000 Volume (mL) (lactated ringers iv infusion) 1000 1000 Volume (mL) (lactated ringers iv infusion) 866 137 5326 1647 Shift Total 3000 280 3280 1767 1767 OUTPUT Urine 046 134 2180 2100 OR Urine Output 475 475 Output ( Indwelling Urinary Catheter 03/02/24 0814 [facility] Kirk 18 Fr) 125 1500 1625 Blood 50 50 Estimated Blood loss 50 50 Shift Total 592 980 9623 2150 Weight (kg) Physical Exam General: Well-appearing, no acute distress CV: HDS Lungs: Unlabored breathing on nasal canula 2 L Abdomen: Soft, non-distended Wound: Incisions appropriately tender and clean, dry, and intact : Kirk in place draining light pink urine Extremities: Normal. No LE edema [facility] 03-02-2024 Note HNO ID: [id number] Author: ANA MARIA LUONG RN Service: ? Author Type: Registered Nurse Type: Progress Notes Filed: 03/02/2024 18:56 Note Text: Admission/Transfer Note PATIENT NAME: Zaynab Zaidi Patient Location: [place] [address] Room: [place] [address] Patient admitted from PACU via stretcher in stable condition. Actions taken: Patient oriented to room, call light function, prescribed activities, Patient rights, and Quiet at night. This note was completed by: Ana Maria Luong [facility] 03-02-2024 Note HNO ID: [id number] Author: ACE VERA MD Service: Urology Author Type: Resident Type: Progress Notes Filed: 03/02/2024 17:44 Note Text: [facility] UROLOGY PROGRESS NOTE Name: Zaynab Zaidi DATE: 03/02/2024 After Hours [facility] Urology Service Pager: [phone] ASSESSMENT Zaynab Zaidi is a 68 year old female with history of coronary artery sclerosis, AAA, tension headaches, colon polyp, dysphagia, PVD, female pelvic congestion syndrome, jugular vein stenosis, and chronic left flank pain who is now Day of Surgery s/p LET 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 Interval history/Subjective: No acute events postoperatively. Afebrile and vital signs stable Denies chest pain, headaches, dizziness, lightheadedness - Hgb 13.9 (pre-op) - 12.6 - Cr 0.81 (pre-op) - 0.86 - UOP 600 cc, light rust colored -Pain: Controlled -N/V: No -Bowel function: no flatus -Ambulating: No OVERALL PLAN: - Maintain kirk one week - Maintain ureteral stent for 4-6 weeks #Disposition - pending clinical course PLAN BY SYSTEM: #Neuro - - Pain control with multimodal IV and PO analgesia #CV/Resp - - Hemodynamically stable - Encourage IS # Heme - Expected decrease in hgb secondary to surgery #FEN - -Diet:Clear liquid diet -IVF: Lactated ringers @ 100 cc/hr # - - Creatinine is stable and close to baseline - Kirk in place, will maintain on discharge #Activity - OOB to chair and ambulate with assistance #DVT prophylaxis - B/l sequential compression device, heparin 5k BID #ID/Antibiotics - Perioperative IV ancef #Secondary Dx/Complications- See active problems below #Discharge teaching - routine Active Problems Left flank pain, POA, s/p left autotransplant Plan to be discussed with staff Dr. Epi Vera MD PGY-5 Resident Urology Pager#: Weekdays from 7 AM - 5 PM [phone] Pager #: After 5 PM and on WEEKENDS [phone] Objective Vital Signs BP 124/62 Pulse 69 Temp 37.3 ?C (99.1 ?F) (Temporal) Resp 17 LMP (LMP Unknown) SpO2 98% There is no height or weight on file to calculate BMI. 03/02/24 1545 03/02/24 1600 03/02/24 1615 03/02/24 1630 BP: 110/54 130/68 111/57 124/62 Pulse: (!) 57 77 (!) 59 69 Resp: 14 13 17 17 Temp: 37.3 ?C (99.1 ?F) TempSrc: Temporal SpO2: 99% 98% 98% 98% Creatinine Date Value Ref Range Status 03/02/2024 0.86 0.58 - 0.96 mg/dL Final 02/19/2024 0.81 0.58 - 0.96 mg/dL Final Recent Labs 03/02/24 1432 WBC 12.28* HB 12.6 HCT 38.1 PLT 210 NA 141 K 4.5 CHLOR 107* CO2 24 BUN 13 CREAT 0.86 GLUC 192* Input and Output Date 03/01/24 1500 - 03/02/24 0659(Not Admitted) 03/02/24 0700 - 03/03/24 0659 Shift 9855-2388 0096-9620 24 Hour Total 5998-4811 0099-6967 8698-0894 24 Hour Total INTAKE IV 3000 160 3160 Volume (mL) (lactated ringers iv infusion) 2000 2000 Volume (mL) (lactated ringers iv infusion) 1000 1000 Volume (mL) (lactated ringers iv infusion) 160 160 Shift Total 3000 160 3160 OUTPUT Urine 475 125 600 OR Urine Output 475 475 Output ( Indwelling Urinary Catheter 03/02/24 0814 [facility] Kirk 18 Fr) 125 125 Blood 50 50 Estimated Blood loss 50 50 Shift Total 525 125 650 Weight (kg) Physical Exam General: Well-appearing, no acute distress CV: HDS Lungs: Unlabored breathing on nasal canula 2l Abdomen: Soft, non-distended Wound: Incisions appropriately tender and clean, dry, and intact : kirk in place draining light rust color Extremities: Normal. No LE edema [facility] 03-02-2024 Note HNO ID: [id number] Author: AZALEA SERRA MD Service: ? Author Type: Anesthesiologist Type: Anesthesia Procedure Notes Filed: 03/02/2024 16:57 Note Text: ANESTHESIOLOGY PROCEDURE NOTE A-Line General Information Procedure Start Time/Medication Administration: 03/02/2024 8:05 AM Procedure End Time: 03/02/2024 8:05 AM Patient location during procedure: OR Timeout Performed Pre-procedure: timeout performed Consent Obtained: Yes Patient identity confirmed: arm band, care team lead and patient sedated or unresponsive Indications: continuous blood pressure monitoring and blood sampling needed Staffing Anesthesiologist: Azalea Serra MD Resident: Sara Wilson DO Performed by: resident and anesthesiologist Preparation Sterility Preparation: hand hygiene performed prior to procedure, sterile gloves, drapes, and procedure tray, surgical cap used, mask used, sterile drape used during line insertion, skin prep agent completely dried prior to procedure Site Prep: Chloraprep Procedure Details Catheter Type: arterial line Catheter Size: 20 G Catheter Length: 12 cm Guidewire Used: Yes Guidewire Removed Intact: Yes Laterality: left Site: radial artery Ultrasound Guided: No Line Secured: Tegaderm Events Events: patient tolerated procedure well with no complications Comments [facility] STAFF ANESTHESIOLOGIST DAY OF SURGERY PREPROCEDURE NOTE ATTESTATION I evaluated the patient and personally participated in the méndez components. I agree with the findings and plan as documented and have discussed the case and management of the patient's care with the rest of the anesthesia care team. Signature: Azalea Serra MD Date of Service: March 02, 2024 SIGNATURE: Sara Wilson DO PATIENT NAME: Zaynab Zaidi DATE: March 02, 2024 TIME: 9:45 AM CSN: [id number] [facility] 03-02-2024 Note HNO ID: [id number] Author: AZALEA SERRA MD Service: ? Author Type: Anesthesiologist Type: Anesthesia Procedure Notes Filed: 03/02/2024 16:56 Note Text: ANESTHESIOLOGY PROCEDURE NOTE Airway General Information Procedure Start Time/Medication Administration: 03/02/2024 7:41 AM Procedure End Time: 03/02/2024 7:41 AM Patient location during procedure: OR Timeout Performed Pre-procedure: timeout performed Consent Obtained: Yes Patient identity confirmed: arm band, care team lead and patient Staffing Anesthesiologist: Azalea Serra MD Resident: Sara Wilson DO Performed by: resident Indications and Patient Condition Indications for airway management: anesthesia Preoxygenated: yes anesthesia circuit Patient position: sniffing Method: asleep Cricoid Pressure: No Difficult Mask: No Final Airway Details Final airway type: endotracheal airway Final Endotracheal Airway: ETT Cuffed: yes Successful intubation technique: video laryngoscopy Devices used: Mcgovern Endotracheal tube insertion site: oral Blade: Cyn Blade size: #3 ETT size (mm): 7.0 Measured from: lips Measurement (cm): 22 Placement verified by: capnometry Cormack-Lehane Classification: grade I - full view of glottis Number of attempts at approach: 1 Failed airway: no Unrecognized esophageal intubation: no Airway not difficult SIGNATURE: Sara Wilson DO PATIENT NAME: Zaynab Zaidi DATE: March 02, 2024 TIME: 9:42 AM CSN: [id number] [facility] 02-19-2024 History of Present illness Narrative REASON FOR VISIT: Pre-op discussion HPI: 68 year old female who presents with a history of Coronary artery sclerosis, AAA, tension headaches, colon polyp, dysphagia, PVD, OP, female pelvic congestion syndrome, jugular vein stenosis. Scheduled for SP Autotransplant on 03/02/24 Here for a pre-operative discussion Surgical history: Cholecystectomy (1981) Seen by Dr. Deleon (12/22/23) Notes listed below: -left sided flank pain associated with hematuria. She started to notice the pain over the past year. She complains of pain located in the left flank, perineum, and pelvis that is worse after sexual intercourse. She states that her pain is improved with laying down or elevating her legs. She has undergone venogram, US duplex, and US pelvis with ovarian varices. 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 Scheduled for surgery with vascular on 01/21/24 LABS: Creatinine (06/24/23): 0.84 URINALYSIS: Negative on 12/22/23 IMAGIN04/25/2023 CT venogram -Dilated varicosities extending all the way from the level the left renal vein into the pelvis and although it is bilateral it is most notably within the left hemipelvis. 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 - Infrarenal AAA 3.4cm. Left lower extremity Duplex 04/25/23: - No evidence of deep or superficial vein thrombosis of the lower extremity. No evidence of deep or superficial venous reflux. Aortic Duplex 04/25/2023 - Aortic ectasia in the infrarenal aorta with the maximum diameter of 2.8 cm and evidence for atherosclerotic disease without significant stenosis in the aortoiliac arteries. Venogram June 18, 2023 -IVUS intravascular ultrasound the presence of left renal vein narrowing. - Manometry was not performed due to technical problems in the catholic priest. 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 No DVT Diagnostic venography 09/09/2023 -large diameter left ovarian vein with avid reflux from the level of the left renal vein into a large group of pelvic varicosities. ALLERGIES: ALLERGIES Allergen Reactions Clindamycin Rash, Shortness of Breath Penicillins Hives, Rash, Intolerance Doxycycline Rash Codeine GI Upset Venom-Honey Bee Rash MEDICATIONS: Current Outpatient Medications Medication Sig calcium carbonate/vitamin D3 (CALTRATE 600 + D ORAL) Take 600 mg by mouth once daily. atorvastatin (LIPITOR) 20 mg tablet Take 20 mg by mouth every evening. fluticasone (FLONASE) 50 mcg/actuation nasal spray Use 1 Alsen in the nose as needed for cold/allergy symptoms. Take in allergy season gabapentin (NEURONTIN) 300 mg capsule Take 300 mg by mouth as needed for pain. montelukast (SINGULAIR) 10 mg tablet Take 10 mg by mouth once daily. HYDROcodone-acetaminophen (NORCO) 5-325 mg per tablet Take 1 tablet by mouth every 6 hours as needed for pain. ibuprofen (MOTRIN) 200 mg tablet Take 400 mg by mouth two times a day. No current facility-administered medications for this visit. HISTORIES 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 PAST SURGICAL HISTORY Procedure Laterality Date REMOVAL GALLBLADDER N/A PHYSICAL EXAMINATION General appearance: no acute distress Genitourinary: no acute distress, left sided flank discomfort PROBLEMS: Patient is optimally prepared for surgery Chip Carr MD documented in this encounter [facility] 02-19-2024 Note HNO ID: [id number] Author: CHIP CARR MD Service: ? Author Type: Physician Type: Progress Notes Filed: 02/19/2024 16:50 Note Text: REASON FOR VISIT: Pre-op discussion HPI: 68 year old female who presents with a history of Coronary artery sclerosis, AAA, tension headaches, colon polyp, dysphagia, PVD, OP, female pelvic congestion syndrome, jugular vein stenosis. Scheduled for SP Autotransplant on 03/02/24 Here for a pre-operative discussion Surgical history: Cholecystectomy (1981) Seen by Dr. Deleon (12/22/23) Notes listed below: -left sided flank pain associated with hematuria. She started to notice the pain over the past year. She complains of pain located in the left flank, perineum, and pelvis that is worse after sexual intercourse. She states that her pain is improved with laying down or elevating her legs. She has undergone venogram, US duplex, and US pelvis with ovarian varices. 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 Scheduled for surgery with vascular on 01/21/24 LABS: Creatinine (06/24/23): 0.84 URINALYSIS: Negative on 12/22/23 IMAGIN04/25/2023 CT venogram -Dilated varicosities extending all the way from the level the left renal vein into the pelvis and although it is bilateral it is most notably within the left hemipelvis. 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 - Infrarenal AAA 3.4cm. Left lower extremity Duplex 04/25/23: - No evidence of deep or superficial vein thrombosis of the lower extremity. No evidence of deep or superficial venous reflux. Aortic Duplex 04/25/2023 - Aortic ectasia in the infrarenal aorta with the maximum diameter of 2.8 cm and evidence for atherosclerotic disease without significant stenosis in the aortoiliac arteries. Venogram June 18, 2023 -IVUS intravascular ultrasound the presence of left renal vein narrowing. - Manometry was not performed due to technical problems in the catholic priest. 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 No DVT Diagnostic venography 09/09/2023 -large diameter left ovarian vein with avid reflux from the level of the left renal vein into a large group of pelvic varicosities. ALLERGIES: ALLERGIES Allergen Reactions Clindamycin Rash, Shortness of Breath Penicillins Hives, Rash, Intolerance Doxycycline Rash Codeine GI Upset Venom-Honey Bee Rash MEDICATIONS: Current Outpatient Medications Medication Sig calcium carbonate/vitamin D3 (CALTRATE 600 + D ORAL) Take 600 mg by mouth once daily. atorvastatin (LIPITOR) 20 mg tablet Take 20 mg by mouth every evening. fluticasone (FLONASE) 50 mcg/actuation nasal spray Use 1 Alsen in the nose as needed for cold/allergy symptoms. Take in allergy season gabapentin (NEURONTIN) 300 mg capsule Take 300 mg by mouth as needed for pain. montelukast (SINGULAIR) 10 mg tablet Take 10 mg by mouth once daily. HYDROcodone-acetaminophen (NORCO) 5-325 mg per tablet Take 1 tablet by mouth every 6 hours as needed for pain. ibuprofen (MOTRIN) 200 mg tablet Take 400 mg by mouth two times a day. No current facility-administered medications for this visit. HISTORIES 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 PAST SURGICAL HISTORY Procedure Laterality Date REMOVAL GALLBLADDER N/A PHYSICAL EXAMINATION General appearance: no acute distress Genitourinary: no acute distress, left sided flank discomfort PROBLEMS: Patient is optimally prepared for surgery Chip Carr MD [facility] 02-19-2024 Instructions Tavia Montiel APRN.ASSEMBLER PIANO - 02/19/2024 1:32 PM EDT PATIENT PREOPERATIVE INSTRUCTIONS Chip Carr MD has scheduled you for your procedure at this surgery center: If no call by 4pm the day before surgery, please call this number. [facility] [place] [facility] Scheduling Office: [phone] --[address] [place] [address]. Please read below carefully for your personalized instructions. Dietary Restrictions: - No solid food after midnight. - You may have 12 ounces of clear liquids (water, clear juices such as apple juice or gatorade, carbonated beverages, clear tea, black coffee, jello) until 2 hours before scheduled arrival at facility. - Do not drink any alcohol after midnight the night before your surgery. Medications: Unless instructed differently below, stay on all of your medications until your surgery. If you start any new medications after today's visit, please contact your surgeon. Pre-Surgery Med Instructions Medication Instructions calcium carbonate/vitamin D3 (CALTRATE 600 + D ORAL) Stop 7 days before surgery atorvastatin (LIPITOR) 20 mg tablet Take the day of surgery with a small sip of water fluticasone (FLONASE) 50 mcg/actuation nasal spray Ok to take morning of surgery if needed gabapentin (NEURONTIN) 300 mg capsule Take the day of surgery with a small sip of water montelukast (SINGULAIR) 10 mg tablet Take the day of surgery with a small sip of water HYDROcodone-acetaminophen (NORCO) 5-325 mg per tablet Ok to take morning of surgery if needed ibuprofen (MOTRIN) 200 mg tablet Stop 7 days before surgery If you take any medications for erectile dysfunction-Cialis (Tadalafil), Levitra, Staxyn (Vardenafil) Viagra (Sildenenafil please do not take these for 48 hours before surgery. If you start any new medications after today's visit, please contact the surgeon's office. Blood Thinning Medications: - Stop NSAIDS (Ibuprofen, Advil, Aleve, Motrin, Celebrex, Mobic, etc.) 7 days before surgery, as directed by your surgeon. - Stop Aspirin 7 days before surgery, as directed by your surgeon. - Stop Vitamin E, ALL multi-vitamins, herbals and dietary supplements 7 days before surgery. - You may take Tylenol (Acetaminophen) or any of your pain medications that do not contain aspirin or NSAIDS as needed. Important Reminders: - If you use CPAP/BIPAP, bring the machine with you to the surgery center. - If you are prescribed inhalers for breathing, continue using them. - Candy, mints, and tobacco products are NOT permitted the morning of surgery. - Hearing aids, dentures and glasses may be worn the morning of surgery. - NO jewelry, body piercings, makeup, hairpins or contacts are to be worn the day of surgery. If you develop symptoms such as a fever, cold, or flu, or have other changes to your health within TWO DAYS of scheduled surgery or the morning of surgery, please contact the surgery center above. Personal Belongings: -Please have photo ID and insurance cards. -If you do not have a copy of advance directives on file with us, please bring a copy with you on the day of surgery. - Leave ALL valuables and money at home or with family members. For Outpatient Procedures: - YOU MUST HAVE A RESPONSIBLE ARTS AND CRAFTS TEACHER TAKE YOU HOME. A CUSTOMER CARE CONSULTANT OR MEDICAL INFORMATION SPECIALIST CANNOT BE MADE A RESPONSIBLE ARTS AND CRAFTS TEACHER. - We recommend that a responsible person stays with you overnight to take care of you. - You cannot stay in a hotel alone after outpatient surgery. You will not be permitted to have your surgery, if you do not have someone to take care of you. Arrival Time for Surgery: - To obtain your arrival time for surgery, call your physician's office the day before your surgery. - If your surgery is scheduled for Friday, call the Friday before. Your surgeon s manufacturing scheduler will tell you what time to call the office. - If you have not reached the departmental manufacturing scheduler by 5 P.M., call [phone] after 5 P.M. the day before your surgery. Please be aware that emergency situations arise, which may delay or change your surgical time. If this happens, we will notify you as soon as possible and regret any inconvenience. If you already have an Advance Directive, please fax a copy to [phone] or email to for it to be added to your chart. If you do not have an Advance Directive, you can find the appropriate form and more information at [email or web address]. We recommend that you complete the Advance Directive form found on the website and bring it with you the day of your surgery. It can be witnessed and scanned into your chart that day. 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 Clinical Frailty Scale: 3. Well, with treated comorbid disease STOP-Bang Score: Patient over 50 years old Denies snoring loudly Denies feeling tired, fatigued, or sleepy during the daytime Has not been observed to stop breathing or choking/gasping during sleep Denies having high blood pressure BMI less than or equal to 35 kg/m^2 Does not have a large neck Non-male patient STOP-Bang Score: 1 ANESTHESIA FINDINGS: Intubation History: No history of difficult intubation. No abnormal airway history Significant Anesthesia Considerations: Airway History: No history of difficult airway No abnormal airway history I - PHYSICAL EVALUATION AIRWAY Patient intubated: No. Tracheostomy tube not present Short neck: no. Thick neck: no Chen present: no Microretrognathia/Micronagthia/Rec essed Chin: No DENTAL Additional comments: Total implants- cubic circonium. II - ANESTHESIA PLAN Anesthetic plan additional comments: *PACC/TCI - anesthesia choice. Beta Amber Monitoring Plan Post Procedure Analgesic Plan Prepared for Surgery: optimally prepared for surgery, pending [see comment]. EKG, T&S, Con Abo, PT, PTT, CMP, CBC ordered by surgical service CONSULTS: Patient does not require consults for optimization at this time Planned Anesthetic: anesthesia choice The Following Tests/Procedures Have Been Initiated: No orders of the defined types were placed in this encounter. REASON FOR VISIT: Zaynab Zaidi is a 68 year old female who is scheduled for Procedure(s): 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 (Left) at the request of Chip Ahmadi MD for consultation. My final recommendation will be communicated back to the requesting physician by way of shared medical record or letter. Subjective The patient has the following: ACTIVE PROBLEM LIST Pararenal Abdominal Aortic Aneurysm (Aaa) Without Rupture (Hcc) [place]'s Syndrome Other Hyperlipidemia Ovarian Varices Nutcracker Phenomenon of Renal Vein Narcotic Drug Use COVID-19 Immunization Status Overdue - Covid-19 Vaccine () Overdue since 06/13/2023 09/12/2021 Imm Admin: COVID-19 original vaccine, full dose, monovalent (MODERNA) 01/05/2021 Imm Admin: COVID-19 original vaccine, full dose, monovalent (MODERNA) 12/06/2020 Imm Admin: COVID-19 original vaccine, full dose, monovalent (MODERNA) Only the first 3 history entries have been loaded, but more history exists. CHIEF COMPLAINT: Preop exam HPI: Zaynab Zaidi is a 68 year old female with PMHx Coronary artery sclerosis, AAA, tension headaches, colon polyp, dysphagia, PVD, OP, female pelvic congestion syndrome, jugular vein stenosis. Presents to [facility] today for preop exam. Patient is scheduled for the above procedure on 03/02/24. Patient endorses pain located in the left flank, perineum, and pelvis. venogram, US duplex, and US pelvis with ovarian varices. 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 Denies fevers, chills, chest pain, and SOB. REVIEW OF SYSTEMS: General: Negative for: weight loss >10% of BW in last 6 months, malaise and fever. Neurological: Positive for: peripheral neuropathy (neurontin). Negative for: ACCOUNTANT MANAGER tumor, delirium, dementia, headaches, multiple sclerosis, seizures, TIA and strokes. Respiratory: Allergies - singulair +lung nodule - routine surveillance Negative for: COPD, current cough, dyspnea, home oxygen, pneumonia within 6 weeks, tobacco use, URI < 2 weeks and obstructive sleep apnea.Asthma: singulair. Cardiovascular: Positive for: abdominal aortic aneurysm (3.2cm) and hyperlipidemia (atorvastatin) Negative for: angina, arrhythmia, CAD, chest pain, CHF, DVT/PE, hypertension and recent MD. GI: Pelvic congestion, abdominal and L flank pain with radiation to pelvis Positive for: abdominal pain, irritable bowel syndrome (constipation) and nausea Negative for: colon cancer, dysphagia, GERD, heartburn, inflammatory bowel disease, liver disease, pancreatitis, rectal cancer and vomiting. : See HPI. Nutcracker syndrome - ovarian varices - plan for renal vein translocation Positive for: urgency. Negative for: BPH, dysuria, hematuria, urinary incontinence, nephrolithiasis, renal failure and urinary tract infection. CHICKEN CATCHER: See HPI. Endocrine: Negative for: diabetes mellitus, diabetic neuropathy, hyperthyroidism, hypothyroidism, hyperparathyroidism and steroid for chronic problem. Hematology: Positive for: bruises/bleeds easily. Negative for: anemia and chronic anti-coagulation/platelet meds. Oncology: Negative for: CA metastasis and chemo within 30 days. Psych: Positive for: drug dependency (norco). Negative for: anxiety, bipolar disorder and depression. Musculoskeletal: Positive for: joint pain (knee). Negative for: back pain. Skin: Negative for: lesions, itching and rash. 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 PAST SURGICAL HISTORY OF R knee menisus repair PAST SURGICAL HISTORY OF falloption tube tied PAST SURGICAL HISTORY OF 11/24/2023 right submandibular duct dilation with steroid irrigation REMOVAL GALLBLADDER N/A 1980s FAMILY HISTORY Problem Relation Age of Onset Aneurysm Father Hypertension Father Hypertension Mother Aneurysm Mother other (pulmonary embolism) Mother other (varicose veins) Mother Hypertension Brother Heart Attack Brother Stroke Brother Anesthesia Problems No Family History Social History Tobacco Use Smoking status: Former Packs/day: 1.00 Years: 27.00 Additional pack years: 0.00 Total pack years: 27.00 Types: Cigarettes Quit date: 2010 Years since quittin.3 Passive exposure: Never Smokeless tobacco: Never Vaping Use Vaping Use: Never used Substance Use Topics Alcohol use: Not Currently Drug use: Never Prior to Admission medications as of 02/19/24 1320 Medication Sig Last Dose Taking calcium carbonate/vitamin D3 (CALTRATE 600 + D ORAL) Take 600 mg by mouth two times a day. Taking Differently Yes atorvastatin (LIPITOR) 20 mg tablet Take 20 mg by mouth every evening. Taking Yes fluticasone (FLONASE) 50 mcg/actuation nasal spray Use 1 Alsen in the nose as needed for cold/allergy symptoms. Take in allergy season Taking Yes gabapentin (NEURONTIN) 300 mg capsule Take 300 mg by mouth as needed for pain. Taking Yes montelukast (SINGULAIR) 10 mg tablet Take 10 mg by mouth once daily. Taking Yes HYDROcodone-acetaminophen (NORCO) 5-325 mg per tablet Take 1 tablet by mouth every 6 hours as needed for pain. Taking Yes ibuprofen (MOTRIN) 200 mg tablet Take 400 mg by mouth two times a day. 400-800 mg 3-4 PRN Taking Differently Yes No medication comments found. ALLERGIES Allergen Reactions Clindamycin Rash, Shortness of Breath Doxycycline Rash Codeine GI Upset Venom-Honey Bee Rash Objective PHYSICAL EXAM: General: alert and oriented and healthy appearance. Pertinent negatives noted - not distressed. Skin: normal color, no rash or lesions. HEENT: EOM intact and pupils equal round. Cardiovascular: regular rate and rhythm, normal S1 and S2, no rub, murmurs, or gallop. Respiratory: normal breath sounds, no wheezes or crackles. No chest wall deformity or tenderness. Abdomen: bowel sounds present and soft. Pertinent negatives noted - not tender. Extremities: no deformity, no edema or tenderness, no joint swelling or clubbing. Neurological: normal cognition and motor skills. Gait normal. No weakness or sensory deficit. PAIN ASSESSMENT: Pain Pain Level: 6 Pain Location: Flank-Left Description: Radiating, Pressure, Cramping, Burning, Aching Duration Amount of Time: 1.5 Duration Units: Years Frequency: Continuous VITALS: BP 137/71 Pulse 60 Temp (Src) 97 (Temporal) Ht 5' 7 (1.70m) Wt 133 lb 9.6 oz (60.6kg) SpO2 100% BMI 20.92 kg/(m^2). Diagnostic tests reviewed for today's visit: Lab Value Units Date High Low HB No results within date range. HCT No results within date range. WBC No results within date range. PLT No results within date range. NA No results within date range. K No results within date range. GLUC No results within date range. BUN No results within date range. CREAT No results within date range. PTSEC No results within date range. INR No results within date range. APTT No results within date range. ALT No results within date range. AST No results within date range. TBILI No results within date range. TSH No results within date range. Lab Value Units Date High Low HCGQT No results within date range. UHCG No results within date range. HCG, BODY* No results within date range. Lab Value Units Date High Low ABORHD No results within date range. ABSCREEN No results within date range. No results found for: HBA1C Recent Results (from the past 8760 hour(s)) ECG COMPLETE Collection Time: 02/19/24 1:54 PM Result Value Ventricular Rate 54 Atrial Rate 54 P-R Interval 130 QRS Duration 90 QT Interval 462 QTC Calculation (Bazett) 438 Calculated P Aurora 21 Calculated R Aurora 68 Calculated T Aurora 69 Impression SINUS BRADYCARDIA OTHERWISE NORMAL ECG No results found for this or any previous visit (from the past 59002 hour(s)). Instructions Given to Patient: Instructions located in the after visit summary. Patient given verbal and written preop instructions and voices comprehension and compliance. SIGNATURE: Tavia Montiel APRN.CNP PATIENT NAME: Zaynab Zaidi DATE: February 19, 2024 TIME: 1:54 PM PAGER/CONTACT #: [facility] 02-19-2024 History and physical note HISTORY AND PHYSICAL EXAMINATION SERVICE DATE: 02/19/2024 SERVICE TIME: 1:17 PM PRIMARY CARE PHYSICIAN: Ammon Lucas MD Assessment Patient has the following medical conditions which may affect elzbieta-operative course: 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 Clinical Frailty Scale: 3. Well, with treated comorbid disease STOP-Bang Score: Patient over 50 years old Denies snoring loudly Denies feeling tired, fatigued, or sleepy during the daytime Has not been observed to stop breathing or choking/gasping during sleep Denies having high blood pressure BMI less than or equal to 35 kg/m^2 Does not have a large neck Non-male patient STOP-Bang Score: 1 ANESTHESIA FINDINGS: Intubation History: No history of difficult intubation. No abnormal airway history Significant Anesthesia Considerations: Airway History: No history of difficult airway No abnormal airway history I - PHYSICAL EVALUATION AIRWAY Patient intubated: No. Tracheostomy tube not present Short neck: no. Thick neck: no Chen present: no Microretrognathia/Micronagthia/Rec essed Chin: No DENTAL Additional comments: Total implants- cubic circonium. II - ANESTHESIA PLAN Anesthetic plan additional comments: *P[facility]/TCI - anesthesia choice. Beta Amber Monitoring Plan Post Procedure Analgesic Plan Prepared for Surgery: optimally prepared for surgery, pending [see comment]. EKG, T&S, Con Abo, PT, PTT, CMP, CBC ordered by surgical service CONSULTS: Patient does not require consults for optimization at this time Planned Anesthetic: anesthesia choice The Following Tests/Procedures Have Been Initiated: No orders of the defined types were placed in this encounter. REASON FOR VISIT: Zaynab Zaidi is a 68 year old female who is scheduled for Procedure(s): 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 (Left) at the request of Chip Ahmadi MD for consultation. My final recommendation will be communicated back to the requesting physician by way of shared medical record or letter. Subjective The patient has the following: ACTIVE PROBLEM LIST Pararenal Abdominal Aortic Aneurysm (Aaa) Without Rupture (Hcc) [place] Pasqual's Syndrome Other Hyperlipidemia Ovarian Varices Nutcracker Phenomenon of Renal Vein Narcotic Drug Use COVID-19 Immunization Status Overdue - Covid-19 Vaccine () Overdue since 06/13/2023 09/12/2021 Imm Admin: COVID-19 original vaccine, full dose, monovalent (MODERNA) 01/05/2021 Imm Admin: COVID-19 original vaccine, full dose, monovalent (MODERNA) 12/06/2020 Imm Admin: COVID-19 original vaccine, full dose, monovalent (MODERNA) Only the first 3 history entries have been loaded, but more history exists. CHIEF COMPLAINT: Preop exam HPI: Zaynab Zaidi is a 68 year old female with PMHx Coronary artery sclerosis, AAA, tension headaches, colon polyp, dysphagia, PVD, OP, female pelvic congestion syndrome, jugular vein stenosis. Presents to [facility] today for preop exam. Patient is scheduled for the above procedure on 03/02/24. Patient endorses pain located in the left flank, perineum, and pelvis. venogram, US duplex, and US pelvis with ovarian varices. 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 Denies fevers, chills, chest pain, and SOB. REVIEW OF SYSTEMS: General: Negative for: weight loss >10% of BW in last 6 months, malaise and fever. Neurological: Positive for: peripheral neuropathy (neurontin). Negative for: ACCOUNTANT MANAGER tumor, delirium, dementia, headaches, multiple sclerosis, seizures, TIA and strokes. Respiratory: Allergies - singulair +lung nodule - routine surveillance Negative for: COPD, current cough, dyspnea, home oxygen, pneumonia within 6 weeks, tobacco use, URI < 2 weeks and obstructive sleep apnea.Asthma: singulair. Cardiovascular: Positive for: abdominal aortic aneurysm (3.2cm) and hyperlipidemia (atorvastatin) Negative for: angina, arrhythmia, CAD, chest pain, CHF, DVT/PE, hypertension and recent MD. GI: Pelvic congestion, abdominal and L flank pain with radiation to pelvis Positive for: abdominal pain, irritable bowel syndrome (constipation) and nausea Negative for: colon cancer, dysphagia, GERD, heartburn, inflammatory bowel disease, liver disease, pancreatitis, rectal cancer and vomiting. : See HPI. Nutcracker syndrome - ovarian varices - plan for renal vein translocation Positive for: urgency. Negative for: BPH, dysuria, hematuria, urinary incontinence, nephrolithiasis, renal failure and urinary tract infection. CHICKEN CATCHER: See HPI. Endocrine: Negative for: diabetes mellitus, diabetic neuropathy, hyperthyroidism, hypothyroidism, hyperparathyroidism and steroid for chronic problem. Hematology: Positive for: bruises/bleeds easily. Negative for: anemia and chronic anti-coagulation/platelet meds. Oncology: Negative for: CA metastasis and chemo within 30 days. Psych: Positive for: drug dependency (norco). Negative for: anxiety, bipolar disorder and depression. Musculoskeletal: Positive for: joint pain (knee). Negative for: back pain. Skin: Negative for: lesions, itching and rash. 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 PAST SURGICAL HISTORY OF R knee menisus repair PAST SURGICAL HISTORY OF falloption tube tied PAST SURGICAL HISTORY OF 11/24/2023 right submandibular duct dilation with steroid irrigation REMOVAL GALLBLADDER N/A 1980s FAMILY HISTORY Problem Relation Age of Onset Aneurysm Father Hypertension Father Hypertension Mother Aneurysm Mother other (pulmonary embolism) Mother other (varicose veins) Mother Hypertension Brother Heart Attack Brother Stroke Brother Anesthesia Problems No Family History Social History Tobacco Use Smoking status: Former Packs/day: 1.00 Years: 27.00 Additional pack years: 0.00 Total pack years: 27.00 Types: Cigarettes Quit date: 2010 Years since quittin.3 Passive exposure: Never Smokeless tobacco: Never Vaping Use Vaping Use: Never used Substance Use Topics Alcohol use: Not Currently Drug use: Never Prior to Admission medications as of 02/19/24 1320 Medication Sig Last Dose Taking calcium carbonate/vitamin D3 (CALTRATE 600 + D ORAL) Take 600 mg by mouth two times a day. Taking Differently Yes atorvastatin (LIPITOR) 20 mg tablet Take 20 mg by mouth every evening. Taking Yes fluticasone (FLONASE) 50 mcg/actuation nasal spray Use 1 Alsen in the nose as needed for cold/allergy symptoms. Take in allergy season Taking Yes gabapentin (NEURONTIN) 300 mg capsule Take 300 mg by mouth as needed for pain. Taking Yes montelukast (SINGULAIR) 10 mg tablet Take 10 mg by mouth once daily. Taking Yes HYDROcodone-acetaminophen (NORCO) 5-325 mg per tablet Take 1 tablet by mouth every 6 hours as needed for pain. Taking Yes ibuprofen (MOTRIN) 200 mg tablet Take 400 mg by mouth two times a day. 400-800 mg 3-4 PRN Taking Differently Yes No medication comments found. ALLERGIES Allergen Reactions Clindamycin Rash, Shortness of Breath Doxycycline Rash Codeine GI Upset Venom-Honey Bee Rash Objective PHYSICAL EXAM: General: alert and oriented and healthy appearance. Pertinent negatives noted - not distressed. Skin: normal color, no rash or lesions. HEENT: EOM intact and pupils equal round. Cardiovascular: regular rate and rhythm, normal S1 and S2, no rub, murmurs, or gallop. Respiratory: normal breath sounds, no wheezes or crackles. No chest wall deformity or tenderness. Abdomen: bowel sounds present and soft. Pertinent negatives noted - not tender. Extremities: no deformity, no edema or tenderness, no joint swelling or clubbing. Neurological: normal cognition and motor skills. Gait normal. No weakness or sensory deficit. PAIN ASSESSMENT: Pain Pain Level: 6 Pain Location: Flank-Left Description: Radiating, Pressure, Cramping, Burning, Aching Duration Amount of Time: 1.5 Duration Units: Years Frequency: Continuous VITALS: BP 137/71 Pulse 60 Temp (Src) 97 (Temporal) Ht 5' 7 (1.70m) Wt 133 lb 9.6 oz (60.6kg) SpO2 100% BMI 20.92 kg/(m^2). Diagnostic tests reviewed for today's visit: Lab Value Units Date High Low HB No results within date range. HCT No results within date range. WBC No results within date range. PLT No results within date range. NA No results within date range. K No results within date range. GLUC No results within date range. BUN No results within date range. CREAT No results within date range. PTSEC No results within date range. INR No results within date range. APTT No results within date range. ALT No results within date range. AST No results within date range. TBILI No results within date range. TSH No results within date range. Lab Value Units Date High Low HCGQT No results within date range. UHCG No results within date range. HCG, BODY* No results within date range. Lab Value Units Date High Low ABORHD No results within date range. ABSCREEN No results within date range. No results found for: HBA1C Recent Results (from the past 8760 hour(s)) ECG COMPLETE Collection Time: 02/19/24 1:54 PM Result Value Ventricular Rate 54 Atrial Rate 54 P-R Interval 130 QRS Duration 90 QT Interval 462 QTC Calculation (Bazett) 438 Calculated P Aurora 21 Calculated R Aurora 68 Calculated T Aurora 69 Impression SINUS BRADYCARDIA OTHERWISE NORMAL ECG No results found for this or any previous visit (from the past 22258 hour(s)). Instructions Given to Patient: Instructions located in the after visit summary. Patient given verbal and written preop instructions and voices comprehension and compliance. SIGNATURE: Tavia Montiel APRN.CNP PATIENT NAME: Zaynab Zaidi DATE: February 19, 2024 TIME: 1:54 PM PAGER/CONTACT #: documented in this encounter [facility] 02-19-2024 Note Patient Outreach (UR OLMN) ZAYNAB ZAIDI ([id number]) 1955 F Date Time Provider Department 02/19/24 CHIP CARR During your visit today, we recorded the following information about you: Allergies As of Date: 02/19/2024 Noted Allergy Reaction CLINDAMYCIN 06/30/2018 2 - Rash 12 - Shortness of Breath DOXYCYCLINE 12/18/2023 2 - Rash CODEINE 06/30/2018 8 - GI Upset VENOM-HONEY BEE 12/05/2019 2 - Rash Date Reviewed: 02/19/2024 Reviewed by: Arleen Velasco OCCA - Fully Assessed Visit Diagnosis:Screening for genitourinary condition [Z13.89] Order(s):URINALYSIS, REFLEX MICROSCOPIC [[id number]] Order #: [id number]. #:[id number] Prescriptions as of 02/23/2024 - calcium carbonate/vitamin D3 (CALTRATE 600 + D ORAL) Take 600 mg by mouth two times a day. - atorvastatin (LIPITOR) 20 mg tablet Take 20 mg by mouth every evening. - fluticasone (FLONASE) 50 mcg/actuation nasal spray Use 1 Alsen in the nose as needed for cold/allergy symptoms. Take in allergy season - gabapentin (NEURONTIN) 300 mg capsule Take 300 mg by mouth as needed for pain. - montelukast (SINGULAIR) 10 mg tablet Take 10 mg by mouth once daily. - HYDROcodone-acetaminophen (NORCO) 5-325 mg per tablet Take 1 tablet by mouth every 6 hours as needed for pain. - ibuprofen (MOTRIN) 200 mg tablet Take 400 mg by mouth two times a day. 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 documented in this encounter [facility] 01-01-2024 Miscellaneous Notes Sounds good thanks Mrs. Zaidi called to let Dr. Fox know that Urology is able to do the proposed procedure robotically and that she is scheduled to have it done on March 02. Estephania Mojica [employer] documented in this encounter [facility] 12-25-2023 History of Present illness Narrative REASON FOR VISIT: consult from Dr. Deleon for Nutcracker HPI: 68 year old female who presents with a history of Coronary artery sclerosis, AAA, tension headaches, colon polyp, dysphagia, PVD, OP, female pelvic congestion syndrome, jugular vein stenosis. Surgical history: Cholecystectomy (1981) Seen by Dr. Deleon (12/22/23) Notes listed below: -left sided flank pain associated with hematuria. She started to notice the pain over the past year. She complains of pain located in the left flank, perineum, and pelvis that is worse after sexual intercourse. She states that her pain is improved with laying down or elevating her legs. She has undergone venogram, US duplex, and US pelvis with ovarian varices. 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 Scheduled for surgery with vascular on 01/21/24 LABS: Creatinine (06/24/23): 0.84 URINALYSIS: Negative on 12/22/23 IMAGIN04/25/2023 CT venogram -Dilated varicosities extending all the way from the level the left renal vein into the pelvis and although it is bilateral it is most notably within the left hemipelvis. 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 - Infrarenal AAA 3.4cm. Left lower extremity Duplex 04/25/23: - No evidence of deep or superficial vein thrombosis of the lower extremity. No evidence of deep or superficial venous reflux. Aortic Duplex 04/25/2023 - Aortic ectasia in the infrarenal aorta with the maximum diameter of 2.8 cm and evidence for atherosclerotic disease without significant stenosis in the aortoiliac arteries. Venogram June 18, 2023 -IVUS intravascular ultrasound the presence of left renal vein narrowing. - Manometry was not performed due to technical problems in the catholic priest. 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 No DVT Diagnostic venography 09/09/2023 -large diameter left ovarian vein with avid reflux from the level of the left renal vein into a large group of pelvic varicosities. ALLERGIES: ALLERGIES Allergen Reactions Clindamycin Rash, Shortness of Breath Penicillins Hives, Rash, Intolerance Doxycycline Rash Codeine GI Upset Venom-Honey Bee Rash MEDICATIONS: Current Outpatient Medications Medication Sig calcium carbonate/vitamin D3 (CALTRATE 600 + D ORAL) Take 600 mg by mouth once daily. atorvastatin (LIPITOR) 20 mg tablet Take 20 mg by mouth every evening. fluticasone (FLONASE) 50 mcg/actuation nasal spray Use 1 Alsen in the nose as needed for cold/allergy symptoms. Take in allergy season gabapentin (NEURONTIN) 300 mg capsule Take 300 mg by mouth as needed for pain. montelukast (SINGULAIR) 10 mg tablet Take 10 mg by mouth once daily. HYDROcodone-acetaminophen (NORCO) 5-325 mg per tablet Take 1 tablet by mouth every 6 hours as needed for pain. ibuprofen (MOTRIN) 200 mg tablet Take 400 mg by mouth two times a day. No current facility-administered medications for this visit. HISTORIES 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 PAST SURGICAL HISTORY Procedure Laterality Date REMOVAL GALLBLADDER N/A Social History Tobacco Use Smoking status: Former Packs/day: 1.00 Years: 27.00 Additional pack years: 0.00 Total pack years: 27.00 Types: Cigarettes Quit date: 2010 Years since quittin.2 Passive exposure: Never Smokeless tobacco: Never Vaping Use Vaping Use: Never used Substance Use Topics Alcohol use: Not Currently Drug use: Never REVIEW OF SYSTEMS General: some weight loss but back to 127 Genitourinary: See HPI The remainder of the ROS was reviewed and negative. PHYSICAL EXAMINATION General: No acute distress Genitourinary: FEMALE EXAM: Exam NOT Indicated PROBLEMS: Patient is optimally prepared for the surgery Chip Carr MD documented in this encounter [facility] 12-25-2023 Note HNO ID: [id number] Author: CHIP CARR MD Service: ? Author Type: Physician Type: Progress Notes Filed: 02/23/2024 11:19 Note Text: REASON FOR VISIT: consult from Dr. Deleon for Nutcracker HPI: 68 year old female who presents with a history of Coronary artery sclerosis, AAA, tension headaches, colon polyp, dysphagia, PVD, OP, female pelvic congestion syndrome, jugular vein stenosis. Surgical history: Cholecystectomy (1981) Seen by Dr. Deleon (12/22/23) Notes listed below: -left sided flank pain associated with hematuria. She started to notice the pain over the past year. She complains of pain located in the left flank, perineum, and pelvis that is worse after sexual intercourse. She states that her pain is improved with laying down or elevating her legs. She has undergone venogram, US duplex, and US pelvis with ovarian varices. 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 Scheduled for surgery with vascular on 01/21/24 LABS: Creatinine (06/24/23): 0.84 URINALYSIS: Negative on 12/22/23 IMAGIN04/25/2023 CT venogram -Dilated varicosities extending all the way from the level the left renal vein into the pelvis and although it is bilateral it is most notably within the left hemipelvis. 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 - Infrarenal AAA 3.4cm. Left lower extremity Duplex 04/25/23: - No evidence of deep or superficial vein thrombosis of the lower extremity. No evidence of deep or superficial venous reflux. Aortic Duplex 04/25/2023 - Aortic ectasia in the infrarenal aorta with the maximum diameter of 2.8 cm and evidence for atherosclerotic disease without significant stenosis in the aortoiliac arteries. Venogram June 18, 2023 -IVUS intravascular ultrasound the presence of left renal vein narrowing. - Manometry was not performed due to technical problems in the [facility]. 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 No DVT Diagnostic venography 09/09/2023 -large diameter left ovarian vein with avid reflux from the level of the left renal vein into a large group of pelvic varicosities. ALLERGIES: ALLERGIES Allergen Reactions Clindamycin Rash, Shortness of Breath Penicillins Hives, Rash, Intolerance Doxycycline Rash Codeine GI Upset Venom-Honey Bee Rash MEDICATIONS: Current Outpatient Medications Medication Sig calcium carbonate/vitamin D3 (CALTRATE 600 + D ORAL) Take 600 mg by mouth once daily. atorvastatin (LIPITOR) 20 mg tablet Take 20 mg by mouth every evening. fluticasone (FLONASE) 50 mcg/actuation nasal spray Use 1 Alsen in the nose as needed for cold/allergy symptoms. Take in allergy season gabapentin (NEURONTIN) 300 mg capsule Take 300 mg by mouth as needed for pain. montelukast (SINGULAIR) 10 mg tablet Take 10 mg by mouth once daily. HYDROcodone-acetaminophen (NORCO) 5-325 mg per tablet Take 1 tablet by mouth every 6 hours as needed for pain. ibuprofen (MOTRIN) 200 mg tablet Take 400 mg by mouth two times a day. No current facility-administered medications for this visit. HISTORIES 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 PAST SURGICAL HISTORY Procedure Laterality Date REMOVAL GALLBLADDER N/A Social History Tobacco Use Smoking status: Former Packs/day: 1.00 Years: 27.00 Additional pack years: 0.00 Total pack years: 27.00 Types: Cigarettes Quit date: 2010 Years since quittin.2 Passive exposure: Never Smokeless tobacco: Never Vaping Use Vaping Use: Never used Substance Use Topics Alcohol use: Not Currently Drug use: Never REVIEW OF SYSTEMS General: some weight loss but back to 127 Genitourinary: See HPI The remainder of the ROS was reviewed and negative. PHYSICAL EXAMINATION General: No acute distress Genitourinary: FEMALE EXAM: Exam NOT Indicated PROBLEMS: Patient is optimally prepared for the surgery Chip Carr MD [facility] 12-25-2023 Note Patient Outreach (UR OLMN) ZAYNAB ZAIDI ([id number]) 1955 F Date Time Provider Department 12/25/23 CHIP CARR During your visit today, we recorded the following information about you: Allergies As of Date: 12/25/2023 Noted Allergy Reaction CLINDAMYCIN 06/30/2018 2 - Rash 12 - Shortness of Breath PENICILLINS 02/12/2017 4 - Hives 2 - Rash 5 - Intolerance DOXYCYCLINE 12/18/2023 2 - Rash CODEINE 06/30/2018 8 - GI Upset VENOM-HONEY BEE 12/05/2019 2 - Rash Date Reviewed: 12/25/2023 Reviewed by: Riana Grant OCCA - Fully Assessed Visit Diagnosis:Screening for genitourinary condition [Z13.89] Order(s):URINALYSIS, REFLEX MICROSCOPIC [[id number]] Order #: [id number]. #:[id number] Prescriptions as of 12/29/2023 - calcium carbonate/vitamin D3 (CALTRATE 600 + D ORAL) Take 600 mg by mouth once daily. - atorvastatin (LIPITOR) 20 mg tablet Take 20 mg by mouth every evening. - fluticasone (FLONASE) 50 mcg/actuation nasal spray Use 1 Alsen in the nose as needed for cold/allergy symptoms. Take in allergy season - gabapentin (NEURONTIN) 300 mg capsule Take 300 mg by mouth as needed for pain. - montelukast (SINGULAIR) 10 mg tablet Take 10 mg by mouth once daily. - HYDROcodone-acetaminophen (NORCO) 5-325 mg per tablet Take 1 tablet by mouth every 6 hours as needed for pain. - ibuprofen (MOTRIN) 200 mg tablet Take 400 mg by mouth two times a day. Problem List As Of Date 12/25/2023 Noted Resolved Pararenal abdominal aortic aneurysm (AAA) witho*12/18/2023 Encounter Status:Closed by EPIC, PRODUSER on 12/29/23 [facility] 12-22-2023 History of Present illness Narrative Images from the original note were not included. PATIENT: Zaynab Zaidi [id number] NEW PATIENT REFERRING MD: Rina Fox 12/20/2023 Chief Complaint Consult, Nutcracker phenomenon of renal vein Referral Consultation requested by Dr. Fox for an opinion regarding Nutcracker phenomenon of renal vein. My final recommendations will be communicated back to the requesting physician by way of shared Medical record or letter to requesting physician via US mail. History of Present Illness Zaynab Zaidi is a very pleasant 68 year old female who presents with a history of Coronary artery sclerosis, AAA, tension headaches, colon polyp, dysphagia, PVD, OP, female pelvic congestion syndrome, jugular vein stenosis Left flank pain and pain in pelvis region (feels like sitting on cucumber) [place] this started one year ago. Thought it was a UTI Was on OR table to have ovarian veins coiled. Surgery aborted 07/25/23 due to renal vein compression To have vascular surgery on 01/20- is here to see if she is able to have sugery robotically Always feels like she needs to empty- PVR was [address] Fox 12/18/2023 HISTORY OF PRESENT ILLNESS: Zaynab Zaidi is a 68 year old female who has been referred to vascular surgery for a history of left sided flank pain associated with hematuria. She started to notice the pain over the past year. She complains of pain located in the left flank, perineum, and pelvis that is worse after sexual intercourse. She states that her pain is improved with laying down or elevating her legs. 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 She has undergone venogram, US duplex, and US pelvis with ovarian varices. 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 Past Histories 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 PAST SURGICAL HISTORY Procedure Laterality Date REMOVAL GALLBLADDER N/A Medications Current Outpatient Medications Medication Instructions atorvastatin (LIPITOR) 20 mg, ORAL, EVERY EVENING calcium carbonate/vitamin D3 (CALTRATE 600 + D ORAL) 600 mg, ORAL, DAILY fluticasone (FLONASE) 50 mcg/actuation nasal spray 1 Alsen, NASAL, NEEDED, Take in allergy season
gabapentin (NEURONTIN) 300 mg, ORAL, NEEDED HYDROcodone-acetaminophen (NORCO) 5-325 mg per tablet 1 tablet, ORAL, EVERY 6 HOURS NEEDED ibuprofen (MOTRIN) 400 mg, ORAL, 2 TIMES DAILY montelukast (SINGULAIR) 10 mg, ORAL, DAILY Family History FAMILY HISTORY Problem Relation Age of Onset Hypertension Mother Aneurysm Mother other (pulmonary embolism) Mother other (varicose veins) Mother Aneurysm Father Hypertension Father Hypertension Brother Heart Attack Brother Stroke Brother Social History Social History Tobacco Use Smoking status: Former Packs/day: 1.00 Years: 27.00 Additional pack years: 0.00 Total pack years: 27.00 Types: Cigarettes Quit date: 2010 Years since quittin.1 Passive exposure: Never Smokeless tobacco: Never Vaping Use Vaping Use: Never used Substance Use Topics Alcohol use: Not Currently Drug use: Never Allergies Allergies: Clindamycin Rash, Shortness of Breath Doxycycline Rash Codeine GI Upset Review of Systems REVIEW OF SYSTEMS 1.GENERAL: Weight loss 2.GI: nauseated after eating- constipation 3.: frequency Physical Exam LMP (LMP Unknown) General: Alert, no acute distress, oriented Lungs: No respiratory distress or pursed lip breathing Psych: Affect and mood normal Abdomen: Estimated body mass index is 20.48 kg/m as calculated from the following: Height as of 12/18/23: 168.9 cm (5' 6.5 ). Weight as of 12/18/23: 58.4 kg (128 lb 12.8 oz). Labs and Pathology 0.71 -- 0.84 0.90 Creatinine -- >90 77 71 eGFR (CKD-EPI)non-race dependent >60 -- -- -- GFR MDRD Af Amer >60 -- -- -- GFR MDRD Non Af Amer Imagin04/25/2023 CT venogram -Dilated varicosities extending all the way from the level the left renal vein into the pelvis and although it is bilateral it is most notably within the left hemipelvis. 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 - Infrarenal AAA 3.4cm. Left lower extremity Duplex 04/25/23: - No evidence of deep or superficial vein thrombosis of the lower extremity. No evidence of deep or superficial venous reflux. Aortic Duplex 04/25/2023 - Aortic ectasia in the infrarenal aorta with the maximum diameter of 2.8 cm and evidence for atherosclerotic disease without significant stenosis in the aortoiliac arteries. Venogram June 18, 2023 -IVUS intravascular ultrasound the presence of left renal vein narrowing. - Manometry was not performed due to technical problems in the [facility]. 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 No DVT Diagnostic venography 09/09/2023 -large diameter left ovarian vein with avid reflux from the level of the left renal vein into a large group of pelvic varicosities. Assessment: Zaynab Zaidi is a very pleasant 68 year old female who presents with a history of Coronary artery sclerosis, AAA, tension headaches, colon polyp, dysphagia, PVD, OP, female pelvic congestion syndrome, jugular vein stenosis Patient presents for evaluation of pelvic congestion syndrome. She has been scheduled already for vein transposition with vascular surgery. We discussed robotic reproach procedure for Nutcracker syndrome. I will connect her with a colleague who can perform the surgery. Plan: Referral to Dr Duff for evaluation of robotic approach for renal vein transposition (msg sent through [employer]) Scribe Attestation: By signing my name below, I,Dick Salgado, attest that this documentation has been prepared under the direction and in the presence of Radu Deleon MD. Electronically Signed: Dulce Guzman. December 22, 2023 2:36 PM. Provider Attestation: I, personally performed the services described in this documentation. All medical record entries made by the scribe were at my direction and in my presence. I have reviewed the chart and discharge instructions (if applicable) and agree that the record reflects my personal performance and is accurate and complete. Electronically Signed: Radu Deleon MD [facility] Medical Decision Making: Problems: Moderate: New problem with uncertain prognosis Data: Unique test result(s) reviewed: 1 Unique test(s) ordered: 1 Risk: Moderate: Moderate risk from testing/treatment Medical Decision Making Level: 4 - Moderate documented in this encounter [facility] 12-22-2023 Note HNO ID: [id number] Author: RADU DELEON MD Service: ? Author Type: Physician Type: Progress Notes Filed: 12/23/2023 07:58 Note Text: PATIENT: Zaynab Zaidi [id number] NEW PATIENT REFERRING MD: Rina Fox 12/20/2023 Chief Complaint Consult, Nutcracker phenomenon of renal vein Referral Consultation requested by Dr. Fox for an opinion regarding Nutcracker phenomenon of renal vein. My final recommendations will be communicated back to the requesting physician by way of shared Medical record or letter to requesting physician via US mail. History of Present Illness Zaynab Zaidi is a very pleasant 68 year old female who presents with a history of Coronary artery sclerosis, AAA, tension headaches, colon polyp, dysphagia, PVD, OP, female pelvic congestion syndrome, jugular vein stenosis Left flank pain and pain in pelvis region (feels like sitting on cucumber) [place] this started one year ago. Thought it was a UTI Was on OR table to have ovarian veins coiled. Surgery aborted 07/25/23 due to renal vein compression To have vascular surgery on 01/20- is here to see if she is able to have sugery robotically Always feels like she needs to empty- PVR was [address] Fox 12/18/2023 HISTORY OF PRESENT ILLNESS: Zaynab Zaidi is a 68 year old female who has been referred to vascular surgery for a history of left sided flank pain associated with hematuria. She started to notice the pain over the past year. She complains of pain located in the left flank, perineum, and pelvis that is worse after sexual intercourse. She states that her pain is improved with laying down or elevating her legs. 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 She has undergone venogram, US duplex, and US pelvis with ovarian varices. 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 Past Histories PAST MEDICAL HISTORY Diagnosis Date - Coronary artery sclerosis - Female pelvic congestion syndrome - Jugular vein stenosis PAST SURGICAL HISTORY Procedure Laterality Date - REMOVAL GALLBLADDER N/A Medications Current Outpatient Medications Medication Instructions - atorvastatin (LIPITOR) 20 mg, ORAL, EVERY EVENING - calcium carbonate/vitamin D3 (CALTRATE 600 + D ORAL) 600 mg, ORAL, DAILY - fluticasone (FLONASE) 50 mcg/actuation nasal spray 1 Alsen, NASAL, NEEDED, Take in allergy season - gabapentin (NEURONTIN) 300 mg, ORAL, NEEDED - HYDROcodone-acetaminophen (NORCO) 5-325 mg per tablet 1 tablet, ORAL, EVERY 6 HOURS NEEDED - ibuprofen (MOTRIN) 400 mg, ORAL, 2 TIMES DAILY - montelukast (SINGULAIR) 10 mg, ORAL, DAILY Family History FAMILY HISTORY Problem Relation Age of Onset - Hypertension Mother - Aneurysm Mother - other (pulmonary embolism) Mother - other (varicose veins) Mother - Aneurysm Father - Hypertension Father - Hypertension Brother - Heart Attack Brother - Stroke Brother Social History Social History Tobacco Use - Smoking status: Former Packs/day: 1.00 Years: 27.00 Additional pack years: 0.00 Total pack years: 27.00 Types: Cigarettes Quit date: 2010 Years since quittin.1 Passive exposure: Never - Smokeless tobacco: Never Vaping Use - Vaping Use: Never used Substance Use Topics - Alcohol use: Not Currently - Drug use: Never Allergies Allergies: Clindamycin Rash, Shortness of Breath Doxycycline Rash Codeine GI Upset Review of Systems REVIEW OF SYSTEMS 1.GENERAL: Weight loss 2.GI: nauseated after eating- constipation 3.: frequency Physical Exam LMP (LMP Unknown) General: Alert, no acute distress, oriented Lungs: No respiratory distress or pursed lip breathing Psych: Affect and mood normal Abdomen: Estimated body mass index is 20.48 kg/m? as calculated from the following: Height as of 12/18/23: 168.9 cm (5' 6.5 ). Weight as of 12/18/23: 58.4 kg (128 lb 12.8 oz). Labs and Pathology 0.71 -- 0.84 0.90 Creatinine -- >90 77 71 eGFR (CKD-EPI)non-race dependent >60 -- -- -- GFR MDRD Af Amer >60 -- -- -- GFR MDRD Non Af Amer Imagin04/25/2023 CT venogram -Dilated varicosities extending all the way from the level the left renal vein into the pelvis and although it is bilateral it is most notably within the left hemipelvis. 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 - Infrarenal AAA 3.4cm. Left lower extremity Duplex 04/25/23: - No evidence of deep or superficial vein thrombosis of the lower extremity. No evidence of deep or superficial venous reflux. Aortic Duplex 04/25/2023 - Aortic ectasia in the infrarenal aorta with the maximum diameter of 2.8 cm and evidence for atherosclero (more content not included)... [facility] 12-22-2023 Nurse Note Summary: Bladder S can Patient PVR recorded: 0 mL LUCIAN Rodriguez documented in this encounter [facility] 12-22-2023 Note Patient Outreach (UR OLMN) ZAYNAB ZAIDI ([id number]) 1955 F Date Time Provider Department 12/22/23 RADU DELEON During your visit today, we recorded the following information about you: Allergies As of Date: 12/22/2023 Noted Allergy Reaction CLINDAMYCIN 06/30/2018 2 - Rash 12 - Shortness of Breath PENICILLINS 02/12/2017 4 - Hives 2 - Rash 5 - Intolerance DOXYCYCLINE 12/18/2023 2 - Rash CODEINE 06/30/2018 8 - GI Upset VENOM-HONEY BEE 12/05/2019 2 - Rash Date Reviewed: 12/22/2023 Reviewed by: Birgit Cook OCCA - Fully Assessed Visit Diagnosis:Screening for genitourinary condition [Z13.89] Order(s):URINALYSIS, REFLEX MICROSCOPIC [[id number]] Order #: [id number]. #:[id number] Prescriptions as of 12/25/2023 - calcium carbonate/vitamin D3 (CALTRATE 600 + D ORAL) Take 600 mg by mouth once daily. - atorvastatin (LIPITOR) 20 mg tablet Take 20 mg by mouth every evening. - fluticasone (FLONASE) 50 mcg/actuation nasal spray Use 1 Alsen in the nose as needed for cold/allergy symptoms. Take in allergy season - gabapentin (NEURONTIN) 300 mg capsule Take 300 mg by mouth as needed for pain. - montelukast (SINGULAIR) 10 mg tablet Take 10 mg by mouth once daily. - HYDROcodone-acetaminophen (NORCO) 5-325 mg per tablet Take 1 tablet by mouth every 6 hours as needed for pain. - ibuprofen (MOTRIN) 200 mg tablet Take 400 mg by mouth two times a day. Problem List As Of Date 12/22/2023 Noted Resolved Pararenal abdominal aortic aneurysm (AAA) witho*12/18/2023 Encounter Status:Closed by BRANDON VILLAGRANUSER on 12/25/23 [facility] 12-18-2023 History of Present illness Narrative Images from the original note were not included. [facility] DEPART[facility] OF VASCULAR SURGERY OUTPATIENT VISIT DATE December 18, 2023 OUTPATIENT VISIT TYPE CONSULTATION SERVICE DATE: 12/18/2023 SERVICE TIME: 8:49 AM PRIMARY CARE PHYSICIAN: No primary care provider on file. CHIEF COMPLAINT: Nutcracker Syndrome HISTORY OF PRESENT ILLNESS: Zaynab Zaidi is a 68 year old female who has been referred to vascular surgery for a history of left sided flank pain associated with hematuria. She started to notice the pain over the past year. She complains of pain located in the left flank, perineum, and pelvis that is worse after sexual intercourse. She states that her pain is improved with laying down or elevating her legs. 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 She has undergone venogram, US duplex, and US pelvis with ovarian varices. 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 04/25/2023 CT venogram -Dilated varicosities extending all the way from the level the left renal vein into the pelvis and although it is bilateral it is most notably within the left hemipelvis. 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 - Infrarenal AAA 3.4cm. Left lower extremity Duplex 04/25/23: - No evidence of deep or superficial vein thrombosis of the lower extremity. No evidence of deep or superficial venous reflux. Aortic Duplex 04/25/2023 - Aortic ectasia in the infrarenal aorta with the maximum diameter of 2.8 cm and evidence for atherosclerotic disease without significant stenosis in the aortoiliac arteries. Venogram June 18, 2023 -IVUS intravascular ultrasound the presence of left renal vein narrowing. - Manometry was not performed due to technical problems in the [facility]. 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 No DVT Diagnostic venography 09/09/2023 -large diameter left ovarian vein with avid reflux from the level of the left renal vein into a large group of pelvic varicosities. 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 PAST SURGICAL HISTORY Procedure Laterality Date REMOVAL GALLBLADDER N/A SOCIAL HISTORY: Social History Tobacco Use Smoking status: Former Packs/day: 1.00 Years: 27.00 Additional pack years: 0.00 Total pack years: 27.00 Types: Cigarettes Quit date: 2010 Years since quittin.1 Passive exposure: Never Smokeless tobacco: Never Vaping Use Vaping Use: Never used Substance Use Topics Alcohol use: Not Currently Drug use: Never FAMILY HISTORY Problem Relation Age of Onset Hypertension Mother Aneurysm Mother other (pulmonary embolism) Mother other (varicose veins) Mother Aneurysm Father Hypertension Father Hypertension Brother Heart Attack Brother Stroke Brother MEDICATIONS: calcium carbonate/vitamin D3 (CALTRATE 600 + D ORAL) Take 600 mg by mouth once daily. atorvastatin (LIPITOR) 20 mg tablet Take 20 mg by mouth every evening. fluticasone (FLONASE) 50 mcg/actuation nasal spray Use 1 Alsen in the nose as needed for cold/allergy symptoms. Take in allergy season gabapentin (NEURONTIN) 300 mg capsule Take 300 mg by mouth as needed for pain. montelukast (SINGULAIR) 10 mg tablet Take 10 mg by mouth once daily. HYDROcodone-acetaminophen (NORCO) 5-325 mg per tablet Take 1 tablet by mouth every 6 hours as needed for pain. ibuprofen (MOTRIN) 200 mg tablet Take 400 mg by mouth two times a day. ALLERGIES: ALLERGIES Allergen Reactions Clindamycin Rash, Shortness of Breath Doxycycline Rash Codeine GI Upset PHYSICAL EXAM: VITALS: BP 131/87 Pulse 64 Temp (Src) 98.3 (Oral) Resp 14 Ht 5' 6.5 [cc[ (1.69m) Wt 128 lb 12.8 oz (58.4kg) SpO2 100% BMI 20.48 kg/(m^2). General: Alert and oriented, No acute distress Integumentary: Normal color, no rash, no lesions. HEENT: No carotid bruits Cardiovascular: Normal S1 & S2, no rubs, murmurs or gallops. No JVD., Pulse regular. Lungs: Normal breath sounds, no wheezes or crackles. Abdomen: Soft, non-tender, no rigidity. Extremities: No deformity, no edema or tenderness, no joint swelling or clubbing. Neurological: Normal cognition and motor skills. Vascular: Carotid Pulse Right: No Bruit - Left: No Bruit Brachial Pulse Right: palpable - Left: palpable Radial Pulse Right: palpable - Left: palpable Femoral Pulse Right: palpable - Left: palpable Popliteal Pulse Right: palpable - Left: palpable Posterior Tibial Right: palpable - Left: palpable Dorsalis Pedal Right: palpable - Left: palpable IMPRESSION: Ms. 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 Patient with Nutcracker phenomenon with associated symptoms. Compression is also exacerbated by aortic ectasia to 2.8 cm. Plan for renal vein translocation. Risks and benefits if the procedure discussed with the patient and she willingly consented. - Patient completed greater than 4 METS without chest pain or shortness of breath. No prior cardiac history. No additional cardiac risk stratification needed. - Plan for 01/21/2024. Patient is in agreement with the above plan. All questions answered. SIGNATURE: Rina Fox MD PATIENT NAME: Zaynab Zaidi DATE: December 18, 2023 TIME: 8:49 AM documented in this encounter [facility] 12-18-2023 Note HNO ID: [id number] Author: RINA FOX MD Service: ? Author Type: Physician Type: Progress Notes Filed: 12/18/2023 15:50 Note Text: [facility] DEPARTMENT OF VASCULAR SURGERY OUTPATIENT VISIT DATE December 18, 2023 OUTPATIENT VISIT TYPE CONSULTATION SERVICE DATE: 12/18/2023 SERVICE TIME: 8:49 AM PRIMARY CARE PHYSICIAN: No primary care provider on file. CHIEF COMPLAINT: Nutcracker Syndrome HISTORY OF PRESENT ILLNESS: Zaynab Zaidi is a 68 year old female who has been referred to vascular surgery for a history of left sided flank pain associated with hematuria. She started to notice the pain over the past year. She complains of pain located in the left flank, perineum, and pelvis that is worse after sexual intercourse. She states that her pain is improved with laying down or elevating her legs. 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 She has undergone venogram, US duplex, and US pelvis with ovarian varices. 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 04/25/2023 CT venogram -Dilated varicosities extending all the way from the level the left renal vein into the pelvis and although it is bilateral it is most notably within the left hemipelvis. 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 - Infrarenal AAA 3.4cm. Left lower extremity Duplex 04/25/23: - No evidence of deep or superficial vein thrombosis of the lower extremity. No evidence of deep or superficial venous reflux. Aortic Duplex 04/25/2023 - Aortic ectasia in the infrarenal aorta with the maximum diameter of 2.8 cm and evidence for atherosclerotic disease without significant stenosis in the aortoiliac arteries. Venogram June 18, 2023 -IVUS intravascular ultrasound the presence of left renal vein narrowing. - Manometry was not performed due to technical problems in the catholic priest. 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 No DVT Diagnostic venography 09/09/2023 -large diameter left ovarian vein with avid reflux from the level of the left renal vein into a large group of pelvic varicosities. 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 PAST SURGICAL HISTORY Procedure Laterality Date REMOVAL GALLBLADDER N/A SOCIAL HISTORY: Social History Tobacco Use Smoking status: Former Packs/day: 1.00 Years: 27.00 Additional pack years: 0.00 Total pack years: 27.00 Types: Cigarettes Quit date: 2010 Years since quittin.1 Passive exposure: Never Smokeless tobacco: Never Vaping Use Vaping Use: Never used Substance Use Topics Alcohol use: Not Currently Drug use: Never FAMILY HISTORY Problem Relation Age of Onset Hypertension Mother Aneurysm Mother other (pulmonary embolism) Mother other (varicose veins) Mother Aneurysm Father Hypertension Father Hypertension Brother Heart Attack Brother Stroke Brother MEDICATIONS: calcium carbonate/vitamin D3 (CALTRATE 600 + D ORAL) Take 600 mg by mouth once daily. atorvastatin (LIPITOR) 20 mg tablet Take 20 mg by mouth every evening. fluticasone (FLONASE) 50 mcg/actuation nasal spray Use 1 Alsen in the nose as needed for cold/allergy symptoms. Take in allergy season gabapentin (NEURONTIN) 300 mg capsule Take 300 mg by mouth as needed for pain. montelukast (SINGULAIR) 10 mg tablet Take 10 mg by mouth once daily. HYDROcodone-acetaminophen (NORCO) 5-325 mg per tablet Take 1 tablet by mouth every 6 hours as needed for pain. ibuprofen (MOTRIN) 200 mg tablet Take 400 mg by mouth two times a day. ALLERGIES: ALLERGIES Allergen Reactions Clindamycin Rash, Shortness of Breath Doxycycline Rash Codeine GI Upset PHYSICAL EXAM: VITALS: BP 131/87 Pulse 64 Temp (Src) 98.3 (Oral) Resp 14 Ht 5' 6.5 [cc[ (1.69m) Wt 128 lb 12.8 oz (58.4kg) SpO2 100% BMI 20.48 kg/(m2). General: Alert and oriented, No acute distress Integumentary: Normal color, no rash, no lesions. HEENT: No carotid bruits Cardiovascular: Normal S1 AND S2, no rubs, murmurs or gallops. No JVD., Pulse regular. Lungs: Normal breath sounds, no wheezes or crackles. Abdomen: Soft, non-tender, no rigidity. Extremities: No deformity, no edema or tenderness, no joint swelling or clubbing. Neurological: Normal cognition and motor skills. Vascular: Carotid Pulse Right: No Bruit - Left: No Bruit Brachial Pulse Right: palpable - Left: palpable Radial Pulse Right: palpable - Left: palpable Femoral Pulse Right: palpable - Left: palpable Popliteal Pulse Right: palpable - Left: palpable Posterior (more content not included)... [facility] 12-12-2023 Miscellaneous Notes Appt scheduled 12/18/[address] Fox [address] Dr Buchanan office documentation Called and informed patient that Dr. Camp and Dr. Hdz recommended surgical bypass for the left renal vein stenosis, thus she needs to schedule the appointment with Vascular Surgery now. She had no further questions . Mrs. Zaidi was referred to Vascular Surgery by Dr. Camp for Nutcracker phenomenon of the renal vein. She was referred back to Dr. Camp for pelvic congestion but the patient is confused because she was referred to VS by Dr. Camp. I will ask the triage nurse to review her records so she can be scheduled appropriately. Estephania Mojica Deckhand Clam Dredge documented in this encounter [facility] 12-02-2023 History of Present illness Narrative [facility] - ENT [address], [address] [facility] [id number] SUBJECTIVE: Patient ID ([id number]): Zaynab Zaidi is a 68 y.o. female presents today for Chief Complaint Patient presents with Post-op Follow-up HPI: Sheri is seen in follow up today for postop check. Patient was last seen on 11/24/2023. She had right submandibular duct dilation with steroid irrigation by Dr. Godwin. She states overall she has been doing well since surgery. Denies significant pain. She felt that the swelling did decrease, but seems to be recurring slightly. She has a slight sensation that something is in the right submandibular gland. Denies shortness of breath, chest pain. Denies other ENT concerns. She is here for evaluation. HISTORY: Past Medical History: Diagnosis Date AAA (abdominal aortic aneurysm) ([facility]) Angina pectoris ([facility]) Aortic aneurysm ([facility]) Arthritis Cataract Chest pain Chronic kidney disease stone Chronic rhinitis Coronary artery disease Dental disease implants Dizziness Dysphagia, pharyngeal phase San Pasqual's syndrome Fractures left arm 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 Osteoporosis Pelvic congestion syndrome Peripheral vascular disease ([facility]) Seasonal allergies Submandibular gland swelling 11/12/2023 Visual impairment glasses Past Surgical History: Procedure Laterality Date CATARACT EXTRACTION Bilateral 2018 CHOLECYSTECTOMY 1979' COLONOSCOPY COLONOSCOPY N/A 07/23/2018 Performed by Frank Christine DO at [facility] SUR[facility] 07/2013 implants Diagnostic cerebral angiogram N/A 03/31/2020 Performed by Melissa Morillo MD at [facility] CARDIAC CATH LABS DIAGNOSTIC VENOGRAM OF IVC AND ILEOCABLE, LEFT RENAL VEIN, SELECTIVE LEFT OVARIAN VEIN CONTRAST AND IVUS VENOGRAMS N/A 07/25/2023 Performed by Erendira Armijo DO at [facility] SPECIAL PROC dilation rt submandibular duct and steroid irrigation Right 11/24/2023 Performed by Sarah Godwin MD at [facility] STONE SURGERY 2019? KNEE CARTILAGE SURGERY MOLE REMOVAL 11/10/2023 right breast OTHER SURGICAL HISTORY 08/31/2020 cranial base ( cranial styloidectomy) 05/2020 also OTHER SURGICAL HISTORY 06/18/2023 venogram OTHER SURGICAL HISTORY 09/09/2023 DIagnostic venogram TUBAL LIGATION Vascular Invasive Diagnostic venogram with IVUS and the ability to measure pressure gradients Bilateral 06/18/2023 Performed by Erendira Armijo DO at [facility] CARDIAC CATH LABS Family History Problem Relation Age of Onset Aneurysm Mother Aneurysm Father Stroke Brother Anesthesia problems Neg Hx Social History Socioeconomic History Marital status: Spouse name: Not on file Number of children: Not on file Years of education: Not on file Highest education level: Not on file Occupational History Not on file Tobacco Use Smoking status: Former Packs/day: 1.00 Years: 30.00 Additional pack years: 0.00 Total pack years: 30.00 Types: Cigarettes Quit date: 02/08/2000 Years since quittin.8 Passive exposure: Past Smokeless tobacco: Never Vaping Use Vaping Use: Never used Substance and Sexual Activity Alcohol use: Yes Comment: 2 per month Drug use: No Sexual activity: Defer Partners: Male Other Topics Concern Coffee Not Asked Tea Not Asked Carbonated Beverages Not Asked Chocolate Not Asked Caffeine Use Yes Social History Narrative Not on file Social Determinants of Health Financial Resource Strain: Not on file Food Insecurity: No Food Insecurity (11/12/2023) Hunger Screening Food Insecurity - Worry: Never True Food Insecurity - Inability: Never True Transportation Needs: Not on file Physical Activity: Not on file Stress: Not on file Social Connections: Not on file Interpersonal Safety: Not on file Housing Instability: Not on file Allergies Allergen Reactions Clindamycin Hives, Shortness Of Breath and Rash Bee Venom Protein (Honey Bee) Rash Codeine GI Disturbance Doxycycline Hyclate Rash Current Outpatient Medications Medication Sig Dispense Refill atorvastatin (LIPITOR) 20 mg tablet Take 1 tablet (20 mg total) by mouth in the morning for 360 days. (Patient taking differently: Take 1 tablet (20 mg total) by mouth nightly.) 90 tablet 3 CALCIUM CARBONATE-VITAMIN D3 ORAL Take 600 mg by mouth in the morning. fluticasone (FLONASE) 50 mcg/actuation nasal spray Administer 1 spray into each nostril in the morning. gabapentin (NEURONTIN) 300 mg capsule Take 1 capsule (300 mg total) by mouth 3 (three) times a day Indications: neuropathic pain. HYDROcodone-acetaminophen (NORCO) 5-325 mg per tablet Take 1 tablet by mouth every 6 (six) hours as needed. ibuprofen (ADVIL,MOTRIN) 200 mg tablet Take 2 tablets (400 mg total) by mouth every 6 (six) hours as needed for pain. loratadine-pseudoephedrine (LORATADINE-D) 5-120 mg tablet extended release 12 hr Take 1 tablet by mouth every 12 (twelve) hours. 1/2 tablet- keeps right ear open montelukast (SINGULAIR) 10 mg tablet Take 1 tablet (10 mg total) by mouth nightly Indications: seasonal runny nose. No current facility-administered medications for this visit. REVIEW OF SYSTEMS: Review of Systems Constitutional: Negative for chills and fever. HENT: Negative for sinus pressure and sinus pain. Eyes: Negative for discharge and itching. Respiratory: Negative for cough and shortness of breath. Cardiovascular: Negative for chest pain. Gastrointestinal: Negative for nausea and vomiting. Endocrine: Negative for cold intolerance and heat intolerance. Genitourinary: Negative for menstrual problem. Musculoskeletal: Negative for gait problem. Skin: Negative for rash. Allergic/Immunologic: Negative for environmental allergies and food allergies. Neurological: Negative for dizziness and headaches. Hematological: Bruises/bleeds easily. Psychiatric/Behavioral: Negative for sleep disturbance. Data Reviewed: PHYSICAL EXAMINATION: Temp 36.7 C (98 F) Ht 170.2 cm (5' 7 ) Wt 59.2 kg (130 lb 9.6 oz) BMI 20.45 kg/m Constitutional: Healthy, alert, cooperative, and in no distress and normal ablility to communicate . Voice normal quality. Head/Face: Normocephalic, without obvious abnormality, atraumatic, and facial nerve intact Eyes: No gross abnormalities. and no lid ptosis Ear: RIGHT: hearing normal and external ear normal LEFT: hearing normal and external ear normal Nose: External nose appears normal Oral: normal lips, normal gums, normal hard palate, normal anterior tongue, oral mucosa moist, and dental implants , floor of mouth is soft, clear saliva through bilateral submandibular glands. Oropharynx: normal-appearing mucosa, no pharyngitis, no exudate, and normal soft palate and uvula Neck:normal, supple, no adenopathy, thyroid normal in size, no nodules or tenderness, and no neck masses palpable Respiration: No stridor, Normal respiratory effort. Neurologic: Grossly normal Alert Oriented X 3 Affect normal Cranial nerves 2 -12 grossly intact ASSESSMENT/PLAN: Sheri was seen today for post-op follow-up. Diagnoses and all orders for this visit: Submandibular gland swelling Chronic sialoadenitis Plan: Doing well postoperatively. Follow-up in 1-[address] Godwin. Call sooner as needed. Counseling: The following elements of medical decision making were considered during this visit: Reviewed and summarized previous records and History and physical. The patient was counseled regarding prognosis, risks and benefits of treatment options, impressions, importance of compliance with treatment and risk factor reductions. The patient verbalized understanding and agreement to the plan. Please note that parts of this chart were generated using voice recognition [employer] dictation software. Although every effort was made to ensure the accuracy of this automated salesperson men's furnishings, some errors in salesperson men's furnishings may have occurred. Alex Ramirez PA-C 12/02/23 [id number] documented in this encounter [facility] 11-20-2023 Miscellaneous Notes PATIENT NOTIFIED WITH SURGERY TIME OF 12:15 . TOLD TO ARRIVE 2 HOURS PRIOR. documented in this encounter [facility] 11-20-2023 Telephone encounter Note PATIENT NOTIFIED WITH SURGERY TIME OF 12:15 . TOLD TO ARRIVE 2 HOURS PRIOR. [facility] 11-05-2023 Note HNO ID: [id number] Author: PAGE BUCHANAN MD Service: ? Author Type: Physician Type: Progress Notes Filed: 11/05/2023 14:48 Note Text: [facility] Department of Cardiovascular Medicine SECTION OF VASCULAR MEDICINE OUTPATIENT VISIT DATE November 05, 2023 OUTPATIENT VISIT TYPE CONSULTATION Consult regarding: nutcraker syndrome and pelvic congestion syndrome Consult requested by: SELF My final recommendations will be communicated back to the requesting physician by way of the shared medical record or by letter. Primary care physician: No primary care provider on file. History of present illness: 68yof from [place], [place], who came to [place] today (2-hr drive) for this patient -initiated appointment. She initially tried to schedule appt with Vascular Surgery, and she was also referred to IR (Dr. Camp), but she was ultimately referred to Vascular Medicine. She is, however, scheduled with IR on 11/11/23 (presumably for an appt with Dr. Camp, but there are no physician names clearly specified in the appt). PMHx San Pasqual Syndrome, jugular vein stenosis (asymptomatic), HLD, pelvic venous congestion She has a h/o severe pelvic pain, perineal pain, vaginal pressure, urinary urgency, dysuria, and left flank pain. Pain is intermittent but nearly constant; the severity is intermittent. She says the only position she can take to have relief is lying down (more towards her right side). She denies hematuria. Symptoms began early last year, and she initially had w/uy for lumbar spine disease which was unremarkable. She has undergone evaluation in [facility] records available under care everywhere and images have been uploaded but not all were available to me today. But review of available images and reports indicates: _ Normal MICHAEL in OCT 2022 (RLE= 1.10; LLE 1.08) _ MRI lumbar spine- 04/18/23: Mild multilevel degenerative spondylosis most significant at L4-L5 and L5-S1. _ CT venogram A/P 04/25/23: dilated varicosities extending all the way from the level the left renal vein into the pelvis and although it is bilateral it is most notably within the left hemipelvis. 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 Infrarenal AAA 3.4cm _ Venous incompetency duplex US- LE 04/25/23: No evidence of deep or superficial vein thrombosis of the lower extremity. No evidence of deep or superficial venous reflux. _ Duplex US abd aorta 04/25/23: Aortic ectasia in the infrarenal aorta with the maximum diameter of 2.8 cm and evidence for atherosclerotic disease without significant stenosis in the aortoiliac arteries. _ Duplex US carotid arteries 05/19/23: Plaque without significant stenosis (<50%) of the internal carotid artery. Antegrade vertebral artery flow. _ CT chest: no acute findings. Fusiform dilatation of the suprarenal abdominal aorta up to 3.2 cm. _ Venous duplex US - UE 07/18/23: bilateral IJ stenosis near carotid bifurcation. No DVT On 09/09/23, she underwent venography which showed: 1. Compression of the left renal vein, worse during expiration, and improved during inspiration, consistent with Nutcracker phenomenon. 2. Reflux in dilated left ovarian vein. 3. The pressure gradient across the left renal vein was 2 mmHg at rest; this increased to 3 mmHg after temporary occlusion the left ovarian vein with a balloon. 4. Left renal venogram during ovarian vein occlusion revealed good flow through the left renal vein without significant collaterals seen. She states that there was lack of consensus on the best way to treat her, thus she decided to come to [facility] for further evaluation. Allergies: is allergic to clindamycin and codeine. Medications: atorvastatin (LIPITOR) 20 mg tablet Take 20 mg by mouth every morning. fluticasone (FLONASE) 50 mcg/actuation nasal spray Use 1 Alsen in the nose once daily. gabapentin (NEURONTIN) 300 mg capsule Take 300 mg by mouth as needed for pain. montelukast (SINGULAIR) 10 mg tablet Take 10 mg by mouth once daily. HYDROcodone-acetaminophen (NORCO) 5-325 mg per tablet Take 1 tablet by mouth every 6 hours as needed for pain. ibuprofen (MOTRIN) 200 mg tablet Take 400 mg by mouth every 6 hours as needed for pain. Past medical history: has a past medical history of Coronary artery sclerosis, Female pelvic congestion syndrome, and Jugular vein stenosis. Past surgical history: has no past surgical history on file. Family history: family history includes Aneurysm in her father and mother; Heart Attack in her brother; Hypertension in her brother, father, and mother; Stroke in her brother; pulmonary embolism in her mother; varicose veins in her mother. Social history: reports that she quit smoking about 13 years ago. Her smoking use included cigarettes. She has a 27 pack-year smoking history. She has never been exposed to tobacco smoke. She has never used smokeless tobacco. She reports (more content not included)... [facility] 10-08-2023 Evaluation note Encounter Date Diagnosis Assessment Notes Sep, Abnormal chest CT (ICD-10 - R93.89) [facility] Other 11-20-2023 Evaluation note* Encounter Date Diagnosis Assessment Notes Treatment Notes Treatment Clinical Notes Aug, Pelvic congestion syndrome (ICD-10 - N94.89) Referral entered as pt request. Aug, Renal vein occlusion (ICD-10 - I82.3) Referral entered to Dr. aCmp. [facility] Other 11-14-2023 Miscellaneous Notes* Telephone Encounter - Shanda Mays - 08/26/2023 3:51 PM EST Called, spoke to pt, pulled records from care everywhere and gave her the phone number to Dr. Camp office. Advising that she will need an order, patient states here PCP will give her an order. Gave her the fax number as well, advising once she is scheduled with dr. Camp office to call us and we will coordinate her appt for the renal stenosis she has. Patient understands and have all numbers needed . * Telephone Encounter - Laura Cowan - 08/22/2023 4:20 PM EST Reason for call: Mrs Zaidi called and would like to re-schedule an appointment with [facility] and cell number: [phone] Diagnosis: pelvic congestion syndrome - renal vein stenosis Laura Jay [facility]* Encounter Date Diagnosis Assessment Notes Treatment Notes Treatment Clinical Notes Jul, Neuropathic pain (ICD-10 - M79.2) Continue present meds. Followup w Dr. Godwin. Jul, Dry mouth (ICD-10 - R68.2) Advised she do the labs that were ordered for Sjorgens syndrome from her specialist for her very dry mouth. Discussed OTC products that do help other patients with dry mouth. Weight loss noted, encouraged small frequent meals. [facility] Other 09-20-2023 Evaluation note* Encounter Date Diagnosis Assessment Notes Treatment Notes Treatment Clinical Notes Jun, Neuropathic pain (ICD-10 - M79.2) Previously on med. 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 Declines referral back to ENT for potential R PE tube. Discussed nasal spray and OTC decongestants that could help discomfort. [facility] Other 08-25-2023 Evaluation note* Encounter Date Diagnosis Assessment Notes Treatment Notes Treatment Clinical Notes May, Thrush (ICD-10 - B37.0) Finish nystatin as prescribed May, Abdominal 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, unspecified part (ICD-10 - I71.40) Continue screening a Jobst. [facility] Other 08-17-2023 Evaluation note* Encounter Date Diagnosis Assessment Notes Treatment Notes Treatment Clinical Notes May, Acute non-recurrent maxillary sinusitis (ICD-10 - J01.00) No testing performed today in office. Discussed diagnosis with patient. Will today for bacterial sinusitis based on physical exam and duration of symptoms. Take antibiotic as prescribed, complete entire course of therapy even if symptoms resolve. Reviewed allergies and recent antibiotic use with patient. Patient reports that a Z-Gene is the only thing that works for her . Supportive care as directed, push fluids and rest, Tylenol and/or Motrin as directed for discomfort/fever, warm moist compress over sinuses several times a day, cool mist humidification, nasal saline spray as directed, continue OTC treatments as discussed. Symptoms should improve in the next 3 days, if symptoms persist follow up with PCP. Immediate eval for warning s/sx as discussed. Patient verbalizes understanding and is agreeable to treatment plan [facility] Other 05-02-2023 Evaluation note* Encounter Date Diagnosis Assessment Notes Treatment Notes Treatment Clinical Notes February, Dysuria (ICD-10 - R30.0) Discussed diagnosis patient today in office. Advised patient that urine dipstick is negative today for UTI. Advised patient that likely she has a stone. Advised patient that she will need to contact PCP or urology that she previously followed with in order to get KUB ordered. In the meantime, increase water intake, Tylenol/Motrin for discomfort. Immediate evaluation ER for signs/symptoms as discussed. Patient verbalizes understanding and is agreeable with treatment plan. [facility] Other 05-02-2023 Evaluation note* Encounter Date Diagnosis Assessment Notes Treatment Notes Treatment Clinical Notes February, Nephrolithiasis (ICD-10 - N20.0) Discussed differential - agrees to imaging and She is established with Dr. Monroe. They advised she go to ER or come here for imaging and assessment. [facility] Other 02-10-2023 Evaluation note* Encounter Date Diagnosis Assessment Notes Treatment Notes Treatment Clinical Notes Nov, Acute recurrent maxillary sinusitis (ICD-10 - J01.01) No testing performed today. Discussed diagnosis with patient. Will today for bacterial sinusitis based on physical exam and duration of symptoms. Take antibiotic as prescribed, complete entire course of therapy even if symptoms resolve. Reviewed allergies and recent antibiotic use with patient. Patient reports that z-pack is only thing that works for her . Advised patient to take OTC Claritid D, OTC Flonase. Supportive care as directed, push fluids and rest, Tylenol and/or Motrin as directed for discomfort/fever, warm moist compress over sinuses several times a day, cool mist humidification, nasal saline spray as directed. Symptoms should improve in the next 3 days, if symptoms persist follow up with PCP. Immediate eval for warning s/sx as discussed. Patient verbalizes understanding and is agreeable to treatment plan [facility] Other 01-19-2023 Evaluation note* Encounter Date Diagnosis Assessment Notes Treatment Notes Treatment Clinical Notes Oct, Allergic reaction, subsequent encounter (ICD-10 - T78.40XD) Zaynab SILVERMAN [facility] Other 10-16-2022 Evaluation note* Encounter Date Diagnosis Assessment Notes Treatment Notes Treatment Clinical Notes Jul, Contact with and (suspected) exposure to covid-19 (ICD-10 - Z20.822) Jul, Acute non-recurrent maxillary sinusitis (ICD-10 - J01.00) Advised patient that COVID PCR test was negative today. Discussed diagnosis with patient. Will today for bacterial sinusitis based on physical exam and duration of symptoms. Take antibiotic as prescribed, complete entire course of therapy even if symptoms resolve. Reviewed allergies and recent antibiotic use with patient. Continue OTC Cetirizine, OTC Flonase. Supportive care as directed, push fluids and rest, Tylenol and/or Motrin as directed for discomfort/fever, warm moist compress over sinuses several times a day, cool mist humidification, nasal saline spray as directed. Symptoms should improve in the next 3 days, if symptoms persist follow up with PCP. Immediate eval for warning s/sx as discussed. Patient verbalizes understanding and is agreeable to treatment plan [facility] Other 12-03-2021 Evaluation note* Encounter Date Diagnosis Assessment Notes Treatment Notes Treatment Clinical Notes Sep, Herpes zoster without complication (ICD-10 - B02.9) Take the valacyclovir as prescribed until gone. Use the viscous lidocaine to the rash as needed for pain. Follow-up with your family physician if no improvement in 2 to 3 days. [facility] Other 10-17-2021 Evaluation note* Encounter Date Diagnosis Assessment Notes Treatment Notes Treatment Clinical Notes Jul, Herpes zoster without complication (ICD-10 - B02.9) [facility] Other Evaluation noteNo InformationNort FiNC Other Evaluation note* Diagnosis Submandibular gland swelling- Primary Chronic sialoadenitis [facility] Diagnosis Nutcracker phenomenon of renal vein- Primary [facility] [place] [facility] Diagnosis Nutcracker phenomenon of renal vein- Primary Family history of aneurysm Family history of other condition Aortic ectasia, abdominal (HCC) Abdominal aortic ectasia [facility] [place] [facility]* Diagnosis Nutcracker phenomenon of renal vein- Primary Preop testing Preoperative examination, unspecified Nutcracker phenomenon of renal vein Preop testing Preoperative examination, unspecified [facility] [place] [facility]* Diagnosis 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 Preop testing Preoperative examination, unspecified [facility] [place] [facility]* Diagnosis Screening for genitourinary condition Screening for other and unspecified genitourinary condition Nutcracker phenomenon of renal vein Preop testing Preoperative examination, unspecified [facility] [place] [facility]* Diagnosis Screening for genitourinary condition Screening for other and unspecified genitourinary condition Nutcracker phenomenon of renal vein Preop testing Preoperative examination, unspecified [facility] [place] [facility]* Diagnosis Nutcracker phenomenon of renal vein- Primary Abnormal coagulation profile Nutcracker phenomenon of renal vein [facility] [place] [facility]* Diagnosis Preop examination- Primary Preoperative examination, unspecified 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) [place] Pas[place]'s syndrome Other disorder of muscle, ligament, and fascia Other hyperlipidemia Ovarian varices Nutcracker phenomenon of renal vein 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 * Assessment & Plan Note - Tavia Montiel APRN.CNP - 02/19/2024 1:54 PM EDT Associated Problem(s): Narcotic drug use Pain managed with norco PRN * Assessment & Plan Note - Tavia Montiel APRN.CNP - 02/19/2024 1:54 PM EDT Associated Problem(s): Nutcracker phenomenon of renal vein With pelvic congestion Patient endorses abdominal and L flank pain with radiation to pelvis * Assessment & Plan Note - Tavia Montiel APRN.CNP - 02/19/2024 1:51 PM EDT Associated Problem(s): Ovarian varices 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 Plan for surgery * Assessment & Plan Note - Tavia Montiel APRN.CNP - 02/19/2024 1:50 PM EDT Associated Problem(s): Other hyperlipidemia Managed on Atorvastatin * Assessment & Plan Note - Tavia Montiel APRN.CNP - 02/19/2024 1:50 PM EDT 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 [facility] [place] [facility]* Diagnosis Encounter for aftercare following kidney transplant- Primary Aftercare following organ transplant Malnutrition of moderate degree (HCC) Malnutrition of moderate degree [facility] Diagnosis Flank pain- Primary Abdominal pain, unspecified site [facility] Diagnosis Preop examination- Primary Preoperative examination, unspecified 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) [place]'s syndrome Other disorder of muscle, ligament, and fascia Other hyperlipidemia Ovarian varices Nutcracker phenomenon of renal vein Narcotic drug use Sinus bradycardia on ECG Other specified cardiac dysrhythmias Screening for genitourinary condition Screening for other and unspecified genitourinary condition [facility] Diagnosis Preop examination- Primary Preoperative examination, unspecified 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) [place]'s syndrome Other disorder of muscle, ligament, and fascia Other hyperlipidemia Ovarian varices Nutcracker phenomenon of renal vein Narcotic drug use Sinus bradycardia on ECG Other specified cardiac dysrhythmias High-tone pelvic floor dysfunction- Primary Other specified disorders of female genital organs 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 Unspecified symptom associated with female genital organs [facility] [place] [facility]* Diagnosis Preop examination- Primary Preoperative examination, unspecified 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) [place]'s syndrome Other disorder of muscle, ligament, and fascia Other hyperlipidemia Ovarian varices Nutcracker phenomenon of renal vein Narcotic drug use Sinus bradycardia on ECG Other specified cardiac dysrhythmias High-tone pelvic floor dysfunction- Primary Other specified disorders of female genital organs Nutcracker phenomenon of renal vein Vaginal dryness Other specified symptom associated with female genital organs Pelvic congestion Pelvic congestion syndrome Acute constipation Unspecified constipation Postmenopausal atrophic vaginitis Urethral caruncle Myalgia Mylagia and myositis, unspecified [facility] Diagnosis Chronic sialoadenitis- Primary [facility]* Diagnosis Preop examination- Primary Preoperative examination, unspecified 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) [place]'s syndrome Other disorder of muscle, ligament, and fascia Other hyperlipidemia Ovarian varices Nutcracker phenomenon of renal vein Narcotic drug use Sinus bradycardia on ECG Other specified cardiac dysrhythmias High-tone pelvic floor dysfunction Other specified disorders of female genital organs [facility] [place] [facility]* Diagnosis Preop examination- Primary Preoperative examination, unspecified 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 note* Diagnosis Preop examination- Primary Preoperative examination, unspecified 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) [place]'s syndrome Other disorder of muscle, ligament, and fascia Other hyperlipidemia Ovarian varices Nutcracker phenomenon of renal vein Narcotic drug use Sinus bradycardia on ECG Other specified cardiac dysrhythmias High-tone pelvic floor dysfunction Other specified disorders of female genital organs documented in this encounter [facility] Narrative - Reported* Type Description Date Medical History Other seasonal allergic rhinitis Medical History beaver syndrome Surgical History cholecystectomy Surgical History arthroscopic knee surgery Surgical History oral surgery Surgical History colonoscopy Surgical History tubal ligation Surgical History styloidectomy Hospitalization History see above [facility] Other HisAmaru general Narrative - Reported* Type Description Date Medical History Other seasonal allergic rhinitis Medical History beaver syndrome Medical History shingles Surgical History cholecystectomy Surgical History arthroscopic knee surgery Surgical History oral surgery Surgical History colonoscopy Surgical History tubal ligation Surgical History styloidectomy Hospitalization History see above [facility] Other Hisgxnk general Narrative - Reported* Type Description Date Medical History Other seasonal allergic rhinitis Medical History beaver syndrome Medical History shingles Medical History Renal stone Surgical History cholecystectomy Surgical History arthroscopic knee surgery Surgical History oral surgery Surgical History colonoscopy Surgical History tubal ligation Surgical History styloidectomy b/l Hospitalization History see above [facility] Other Hisrlcj general Narrative - Reported* Type Description Date Medical History Other seasonal allergic rhinitis Medical History beaver syndrome Medical History shingles Medical History Renal stone Medical History Pelvic venous congestive syndrom e Surgical History cholecystectomy Surgical History arthroscopic knee surgery Surgical History oral surgery Surgical History colonoscopy Surgical History tubal ligation Surgical History styloidectomy b/l Hospitalization History see above [facility] Other Hisyegm general Narrative - Reported* Type Description Date Medical History Other seasonal allergic rhinitis Medical History beaver syndrome Medical History shingles Medical History Renal stone Medical History Pelvic venous congestive syndrom e Surgical History cholecystectomy Surgical History arthroscopic knee surgery Surgical History oral surgery Surgical History colonoscopy Surgical History tubal ligation Surgical History styloidectomy b/l Surgical History Venogram Hospitalization History see above [facility] Other InstructionsNot on filedocumented in this encounter [facility] System[facility]ructionsNot on filedocumented in this encounter [facility] for referral (narrative)* Outpatient Procedure (Routine) - Authorized Specialty Diagnoses / Procedures Referred By Contac t Referred To Contact [facility] [place] Diagnoses Nutcracker phenomenon of renal vein Procedures US RENAL ARTERY CINTHYA VAS LAB DUP-SCAN ARTL STEVAN ABDL/PEL/SCROT&/RPR ORGN COM Rina Fox MD [address] [place] [id number] [facility] [place] [address] [place] [address] Referral ID Status Reason Start Date Expiration Date Visits Requested Visits Authorized [id number] Authorized Auto-Generat ed Referral 12/12/2023 12/11/2024 1 1 [facility] for referral (narrative)* Outpatient Procedure (Routine) - Authorized Specialty Diagnoses / Procedures Referred By Contac t Referred To Contact [facility] Diagnoses Nutcracker phenomenon of renal vein Procedures US RENAL VENOUS CINTHYA VAS LAB DUP-SCAN ARTL STEVAN ABDL/PEL/SCROT&/RPR ORGN COM Rina Fox MD [address] [place] [id number] [facility] [place] [address] [address] [place] [id number] Referral ID Status Reason Start Date Expiration Date Visits Requested Visits Authorized [id number] Authorized Auto-Generat ed Referral 12/17/2023 12/16/2024 1 1 [facility] for referral (narrative)* Outpatient Procedure (Routine) - Authorized Specialty Diagnoses / Procedures Referred By Contac t Referred To Contact [facility] Diagnoses Nutcracker phenomenon of renal vein Procedures US VENOUS INCOMPETENCY CINTHYA VAS LAB DUP-SCAN XTR VEINS COMPLETE BILATERAL STUDY Rina Fox MD [address] [place] [address] [facility] [place] [address] [place] [address] Referral ID Status Reason Start Date Expiration Date Visits Requested Visits Authorized [id number] Authorized Auto-Generat ed Referral 12/17/2023 12/16/2024 1 1 [facility] Outpatient Procedure (Routine) - Authorized Specialty Diagnoses / Procedures Referred By Contac t Referred To Contact [facility] Diagnoses Nutcracker phenomenon of renal vein Preop testing Procedures ECG COMPLETE ECG ROUTINE ECG W/LEAST 12 LDS W/I&R Kira Eduardo, KARRIE [address] [facility]. [place] [id number] [place] [address] Referral ID Status Reason Start Date Expiration Date Visits Requested Visits Authorized [id number] Authorized Auto-Generat ed Referral 12/19/2023 12/18/2024 1 1 [facility] Summary Purpose Family History No Family History Records FoundNo Family History Records FoundNo Family History Records FoundNo Family History Records FoundNo Family History Records FoundNo Family History Records FoundNo Family History Records FoundNo Family History Records FoundNo Family History Records FoundNo Family History Records Found Advance Directives No Advanced Directives Records FoundNo Advanced Directives Records FoundNo Advanced Directives Records FoundNo Advanced Directives Records FoundNo Advanced Directives Records FoundNo Advanced Directives Records FoundNo Advanced Directives Records FoundNo Advanced Directives Records FoundNo Advanced Directives Records FoundNo Advanced Directives Records Found Reason for Referral Specialty Diagnoses / Procedures Referred By Contac t Referred To Contact [facility] Diagnoses High-tone pelvic floor dysfunction Augustina Vargas MD [address] [place] [address] [place] [address] Referral ID Status Reason Start Date Expiration Date V isits Requested Visits Authorized [id number] Authorized 05/28/2024 08/26/2024 1 1 Specialty Diagnoses / Procedures Referred By Contac t Referred To Contact [facility] Diagnoses High-tone pelvic floor dysfunction Procedures CONSULT TO PHYSICAL THERAPY PHYSICAL THERAPY EVALUATION HIGH COMPLEX 45 [place] [address] [place] [address] [facility] [place] [address] Referral ID Status Reason Start Date Expiration Date Visits Requested Visits Authorized [id number] Authorized PCP Requested Referral Auto-Generate d Referral 05/27/2024 05/27/2025 99 99 Specialty Diagnoses / Procedures Referred By Contac t Referred To Contact Diagnoses High-tone pelvic floor dysfunction Augustina Vargas MD [address] [place] [address] Referral ID Status Reason Start Date Expiration Date Visits Re quested Visits Authorized [id number] Closed 1 1 Specialty Diagnoses / Procedures Referred By Contac t Referred To Contact Diagnoses Nutcracker phenomenon of renal vein Procedures REFER TO PACC - PRE ANESTHESIA CONSULTATION CLINIC OFFICE/OUTPATIENT [facility] 60 MINUTES Chip Carr MD [address] [place] [address] Referral ID Status Reason Start Date Expiration Date Visits Requested Visits Authorized [id number] Authorized PCP Requested Referral 02/25/2024 12/29/2024 1 1 Specialty Diagnoses / Procedures Referred By Contac t Referred To Contact [facility] Diagnoses Nutcracker phenomenon of renal vein Procedures ECG COMPLETE ECG ROUTINE ECG W/LEAST 12 LDS W/I&[place] [address] [place] [address] [facility] [address] [place] [address] Referral ID Status Reason Start Date Expiration Date Visits Requested Visits Authorized [id number] Pending Review Auto-Generat ed Referral 02/25/2024 12/29/2024 1 1 Specialty Diagnoses / Procedures Referred By Contac t Referred To Contact Urology Diagnoses Nutcracker phenomenon of renal vein Procedures CONSULT TO UROLOGY OFFICE/OUTPATIENT [facility] 60 MINUTES Rina Fox MD [address] [place] [address] Referral ID Status Reason Start Date Expiration Date Visits Requested Visits Authorized [id number] Authorized PCP Requested Referral 12/18/2023 12/17/2024 1 1 Reason *FU 10/22 [place] office - abnormal CT of chest, send notes recently from Dr. Godwin. Diagnosis [address] (R 93.89) Referral Organization [facility] [employer] Referring Provider First Name Ammon Referring Provider Last Name Lance Referring Provider Specialty [facility] Referred Organization [facility] Referred Provider Tessa Steven Referred Address ,[place], [place],[address] Referred Provider Specialty Pulmonary Di seases Referral Priority Routine General Notes Thea Wilson 04:43:51 PM >received today Thea Wilson 10/15/2023 04:45:29 PM >attachments made, notes locked, referral faxed to [place] office Clinical Notes p: [phone] f: [phone] Reason Pt has all records, images with [facility]. Pt has called [facility] and they recommend she start w Dr. Camp for assessment Diagnosis 1 Pelvic congestion sy ndrome (N94.89) Referral Organization [facility] [employer] Referring Provider First Name Ammon Referring Provider Last Name Lance Referring Provider Specialty [facility] Referred Organization [facility] Referred Provider Shanell Camp Referred Address [address] [place],[address] Referred Provider Specialty Diagnostic R adiology Referral Priority Routine Reason 12/18/22 @ 2:20 it tiera palms and soles, drug reaction on abd. please send recent derm note with referral. Diagnosis 1 Allergic reaction, s ubsequent encounter (T78.40XD) Referral Organization [facility] [employer] Referring Provider First Name Ammon Referring Provider Last Name Lance Referring Provider Specialty [facility] Referred Organization [facility] Referred Provider Will Vega Referred Address ,[place], [place],[address] Referred Provider Specialty Allergy/Immu nology Referral Priority Routine Referral Appointment Date 2022-12-18 General Notes Thea Wilson 11:22:43 AM >received today, waiting for derm note to be entered into patients chart Thea Wilson 11/04/2022 07:36:18 AM >notes locked and referral faxed P2P Thea Wilson 11/11/2022 10:45:36 AM >faxed first attempt letter Thae Wilson 11/12/2022 03:44:55 PM >received fax with appt date and time Additional Source Comments INFORMATION SOURCE (unrecogn ized section and content) DATE CREATED AUTHOR 08/08/2018 Kirt Llanos [facility] DATE CREATED AUTHOR AUTHOR'S ORGANIZ ATION 02/24/2022 [facility] DATE CREATED AUTHOR AUTHOR'S ORGANIZ ATION 02/26/2023 [facility] DATE CREATED AUTHOR AUTHOR'S ORGANIZ ATION 02/18/2024 [facility] DATE CREATED AUTHOR AUTHOR'S ORGANIZ ATION 05/04/2024 [facility] DATE CREATED AUTHOR AUTHOR'S ORGANIZ ATION 05/11/2024 [facility] DATE CREATED AUTHOR AUTHOR'S ORGANIZ ATION 06/05/2024 [facility] DATE CREATED AUTHOR AUTHOR'S ORGANIZ ATION 07/27/2024 [facility] DATE CREATED AUTHOR AUTHOR'S ORGANIZ ATION 08/24/2024 [facility] DATE CREATED AUTHOR AUTHOR'S ORGANIZ ATION 08/25/2024 [facility] REASON FOR VISIT (unrecogniz ed section and content) Reason Comments Appointment Reason Comments Post-op Follow-up Reason Comments Patient Question Reason Comments Consult Reason Comments Consult Specialty Diagnoses / Procedures Referred By Contac t Referred To Contact 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 60 MINUTES Rina Fox MD [address] [place] [address] Referral ID Status Reason Start Date Expiration Date V isits Requested Visits Authorized [id number] Closed PCP Requested Referral 12/18/2023 12/17/2024 1 1 Reason Comments Patient Update Reason Comments Surgery Cancelled Reason Comments Pre-Op Exam Reason Comments Cystoscopy-1 Stent Extraction Reason Comments Follow Up Reason Comments Pelvic Pain Reason Comments botox auth Reason Comments Pelvic Pain Specialty Diagnoses / Procedures Referred By Contac t Referred To Contact [facility] Diagnoses High-tone pelvic floor dysfunction Augustina Vargas MD [address] [place] [address] [facility] [address] [place] [address] Referral ID Status Reason Start Date Expiration Date Visits Re quested Visits Authorized [id number] Closed 05/28/2024 08/26/2024 1 1 Reason Comments Follow-up Reason Comments Medication Problem Reason Comments Med Change Request Source Comments (unrecognize d section and content) In the event this informatio n is protected by the Federal Confidentiality of Alcohol and Drug Abuse Patient Records regulations: The Federal rules restrict any use of the information to criminally investigate or prosecute any alcohol or drug abuse patient.[facility] the event this information is protected by the Federal Confidentiality of Alcohol and Drug Abuse Patient Records regulations: The Federal rules restrict any use of the information to criminally investigate or prosecute any alcohol or drug abuse patient.[facility] HospitalIn the event this information is protected by the Federal Confidentiality of Alcohol and Drug Abuse Patient Records regulations: The Federal rules restrict any use of the information to criminally investigate or prosecute any alcohol or drug abuse patient.[facility] the event this information is protected by the Federal Confidentiality of Alcohol and Drug Abuse Patient Records regulations: The Federal rules restrict any use of the information to criminally investigate or prosecute any alcohol or drug abuse patient.[facility] HospitalIn the event this information is protected by the Federal Confidentiality of Alcohol and Drug Abuse Patient Records regulations: The Federal rules restrict any use of the information to criminally investigate or prosecute any alcohol or drug abuse patient.[facility] HospitalIn the event this information is protected by the Federal Confidentiality of Alcohol and Drug Abuse Patient Records regulations: The Federal rules restrict any use of the information to criminally investigate or prosecute any alcohol or drug abuse patient.[facility] HospitalIn the event this information is protected by the Federal Confidentiality of Alcohol and Drug Abuse Patient Records regulations: The Federal rules restrict any use of the information to criminally investigate or prosecute any alcohol or drug abuse patient.[facility] HospitalIn the event this information is protected by the Federal Confidentiality of Alcohol and Drug Abuse Patient Records regulations: The Federal rules restrict any use of the information to criminally investigate or prosecute any alcohol or drug abuse patient.[facility] HospitalIn the event this information is protected by the Federal Confidentiality of Alcohol and Drug Abuse Patient Records regulations: The Federal rules restrict any use of the information to criminally investigate or prosecute any alcohol or drug abuse patient.[facility] HospitalIn the event this information is protected by the Federal Confidentiality of Alcohol and Drug Abuse Patient Records regulations: The Federal rules restrict any use of the information to criminally investigate or prosecute any alcohol or drug abuse patient.[facility] HospitalIn the event this information is protected by the Federal Confidentiality of Alcohol and Drug Abuse Patient Records regulations: The Federal rules restrict any use of the information to criminally investigate or prosecute any alcohol or drug abuse patient.[facility] HospitalIn the event this information is protected by the Federal Confidentiality of Alcohol and Drug Abuse Patient Records regulations: The Federal rules restrict any use of the information to criminally investigate or prosecute any alcohol or drug abuse patient.[facility] HospitalIn the event this information is protected by the Federal Confidentiality of Alcohol and Drug Abuse Patient Records regulations: The Federal rules restrict any use of the information to criminally investigate or prosecute any alcohol or drug abuse patient.[facility] HospitalIn the event this information is protected by the Federal Confidentiality of Alcohol and Drug Abuse Patient Records regulations: The Federal rules restrict any use of the information to criminally investigate or prosecute any alcohol or drug abuse patient.[facility] HospitalIn the event this information is protected by the Federal Confidentiality of Alcohol and Drug Abuse Patient Records regulations: The Federal rules restrict any use of the information to criminally investigate or prosecute any alcohol or drug abuse patient.[facility] HospitalIn the event this information is protected by the Federal Confidentiality of Alcohol and Drug Abuse Patient Records regulations: The Federal rules restrict any use of the information to criminally investigate or prosecute any alcohol or drug abuse patient.[facility] HospitalIn the event this information is protected by the Federal Confidentiality of Alcohol and Drug Abuse Patient Records regulations: The Federal rules restrict any use of the information to criminally investigate or prosecute any alcohol or drug abuse patient.[facility] HospitalIn the event this information is protected by the Federal Confidentiality of Alcohol and Drug Abuse Patient Records regulations: The Federal rules restrict any use of the information to criminally investigate or prosecute any alcohol or drug abuse patient.[facility] HospitalIn the event this information is protected by the Federal Confidentiality of Alcohol and Drug Abuse Patient Records regulations: The Federal rules restrict any use of the information to criminally investigate or prosecute any alcohol or drug abuse patient.[facility] HospitalIn the event this information is protected by the Federal Confidentiality of Alcohol and Drug Abuse Patient Records regulations: The Federal rules restrict any use of the information to criminally investigate or prosecute any alcohol or drug abuse patient.[facility] HospitalIn the event this information is protected by the Federal Confidentiality of Alcohol and Drug Abuse Patient Records regulations: The Federal rules restrict any use of the information to criminally investigate or prosecute any alcohol or drug abuse patient.[facility] HospitalIn the event this information is protected by the Federal Confidentiality of Alcohol and Drug Abuse Patient Records regulations: The Federal rules restrict any use of the information to criminally investigate or prosecute any alcohol or drug abuse patient.[facility] HospitalIn the event this information is protected by the Federal Confidentiality of Alcohol and Drug Abuse Patient Records regulations: The Federal rules restrict any use of the information to criminally investigate or prosecute any alcohol or drug abuse patient.[facility] HospitalIn the event this information is protected by the Federal Confidentiality of Alcohol and Drug Abuse Patient Records regulations: The Federal rules restrict any use of the information to criminally investigate or prosecute any alcohol or drug abuse patient.[facility] HospitalIn the event this information is protected by the Federal Confidentiality of Alcohol and Drug Abuse Patient Records regulations: The Federal rules restrict any use of the information to criminally investigate or prosecute any alcohol or drug abuse patient.[facility] HospitalIn the event this information is protected by the Federal Confidentiality of Alcohol and Drug Abuse Patient Records regulations: The Federal rules restrict any use of the information to criminally investigate or prosecute any alcohol or drug abuse patient.[facility] HospitalIn the event this information is protected by the Federal Confidentiality of Alcohol and Drug Abuse Patient Records regulations: The Federal rules restrict any use of the information to criminally investigate or prosecute any alcohol or drug abuse patient.[facility] HospitalIn the event this information is protected by the Federal Confidentiality of Alcohol and Drug Abuse Patient Records regulations: The Federal rules restrict any use of the information to criminally investigate or prosecute any alcohol or drug abuse patient.[facility] HospitalIn the event this information is protected by the Federal Confidentiality of Alcohol and Drug Abuse Patient Records regulations: The Federal rules restrict any use of the information to criminally investigate or prosecute any alcohol or drug abuse patient.[facility] HospitalIn the event this information is protected by the Federal Confidentiality of Alcohol and Drug Abuse Patient Records regulations: The Federal rules restrict any use of the information to criminally investigate or prosecute any alcohol or drug abuse patient.[facility] HospitalIn the event this information is protected by the Federal Confidentiality of Alcohol and Drug Abuse Patient Records regulations: The Federal rules restrict any use of the information to criminally investigate or prosecute any alcohol or drug abuse patient.[facility] HospitalIn the event this information is protected by the Federal Confidentiality of Alcohol and Drug Abuse Patient Records regulations: The Federal rules restrict any use of the information to criminally investigate or prosecute any alcohol or drug abuse patient.[facility] Care Teams (unrecognized sec tion and content) Jail Keeper Relationship Specialty Start Date End Date Ammon Lucas MD [address] [place] [address] PCP - General 06/18/18 Jail Keeper Relationship Specialty Start Date End Date Ammon Lucas MD [address] [place] [address] PCP - General 06/18/18 Jail Keeper Relationship Specialty Start Date End Date Ammon Lucas MD [address] [place] [phone] Referring Family Medicine 09/08/23 Jail Keeper Relationship Specialty Start Date End Date Ammon Lucas MD [address] [place] [phone] Referring Family Medicine 09/08/23 Jail Keeper Relationship Specialty Start Date End Date Ammon Lucas MD [address] [facility] [place] [address] PCP - General Family Medicine 12/18/23 Ammon Lucas MD [address] [facility] [place] [address] Referring Family Medicine 09/08/23 Jail Keeper Relationship Specialty Start Date End Date Ammon Lucas MD [address] [facility] [place] [address] PCP - General Family Medicine 12/18/23 Ammon Lucas MD [address] [facility] [address] Referring Family Medicine 09/08/23 Jail Keeper Relationship Specialty Start Date End Date Ammon Lucas MD [address] [facility] [place] [address] PCP - General Family Medicine 12/18/23 Ammon Lucas MD [address] [facility] [address] Referring Family Medicine 09/08/23 Jail Keeper Relationship Specialty Start Date End Date Ammon Lucas MD [address] [facility] [place] [address] PCP - General Family Medicine 12/18/23 Ammon Lucas MD [address] [facility] [place] [address] Referring Family Medicine 09/08/23 Jail Keeper Relationship Specialty Start Date End Date Ammon Lucas MD [address] [facility] [place] [address] PCP - General Family Medicine 12/18/23 Ammon Lucas MD [address] [facility] [place] [address] Referring Family Medicine 09/08/23 Jail Keeper Relationship Specialty Start Date End Date Ammon Lucas MD [address] [facility] [address] PCP - General Family Medicine 12/18/23 Ammon Lucas MD [address] [facility] [address] Referring Family Medicine 09/08/23 Jail Keeper Relationship Specialty Start Date End Date Ammon Lucas MD [address] [facility] [address] PCP - General Family Medicine 12/18/23 Ammon Lucas MD [address] [facility] [address] Referring Family Medicine 09/08/23 Jail Keeper Relationship Specialty Start Date End Date Ammon Lucas MD [address] [facility] [address] PCP - General Family Medicine 12/18/23 Ammon Lucas MD [address] [facility] [place] [address] Referring Family Medicine 09/08/23 Jail Keeper Relationship Specialty Start Date End Date Ammon Lucas MD [address] [facility] [place] [address] PCP - General Family Medicine 12/18/23 Ammon Lucas MD [address] [facility] [place] [address] Referring Family Medicine 09/08/23 Jail Keeper Relationship Specialty Start Date End Date Ammon Lucas MD [address] [facility] [address] PCP - General Family Medicine 12/18/23 Ammon Lucas MD [address] [facility] [address] Referring Family Medicine 09/08/23 Jail Keeper Relationship Specialty Start Date End Date Ammon Lucas MD [address] [facility] [address] PCP - General Family Medicine 12/18/23 Ammon Lucas MD [address] [facility] [address] Referring Family Medicine 09/08/23 Jail Keeper Relationship Specialty Start Date End Date Ammon Lucas MD [address] [facility] [place] [address] PCP - General Family Medicine 12/18/23 Ammon Lucas MD [address] [facility] [place] [address] Referring Family Medicine 09/08/23 Jail Keeper Relationship Specialty Start Date End Date Ammon Lucas MD [address] [facility] [place] [address] PCP - General Family Medicine 12/18/23 Ammon Lucas MD [address] [facility] [address] Referring Family Medicine 09/08/23 Jail Keeper Relationship Specialty Start Date End Date Ammon Lucas MD [address] [facility] [address] PCP - General Family Medicine 12/18/23 Ammon Lucas MD [address] [facility] [address] Referring Family Medicine 09/08/23 Jail Keeper Relationship Specialty Start Date End Date Ammon Lucas MD [address] [facility] [address] PCP - General Family Medicine 12/18/23 Ammon Lucas MD [address] [facility] [address] Referring Family Medicine 09/08/23 Jail Keeper Relationship Specialty Start Date End Date Ammon Lucas MD [address] [facility] [address] PCP - General Family Medicine 12/18/23 Ammon Lucas MD [address] [facility] [place] [address] Referring Family Medicine 09/08/23 Jail Keeper Relationship Specialty Start Date End Date Ammon Lucas MD [address] [facility] [place] [address] PCP - General Family Medicine 12/18/23 Ammon Lucas MD [address] [facility] [place] [address] Referring Family Medicine 09/08/23 Jail Keeper Relationship Specialty Start Date End Date Ammon Lucas MD [address] [facility] [place] [address] PCP - General Family Medicine 12/18/23 Ammon Lucas MD [address] [facility] [address] Referring Family Medicine 09/08/23 Jail Keeper Relationship Specialty Start Date End Date Ammon Lucas MD [address] [facility], [place] [id number] PCP - General 06/18/18 Jail Keeper Relationship Specialty Start Date End Date Ammon Lucas MD [address] [facility] [place] [address] PCP - General Family Medicine 12/18/23 Ammon Lucas MD [address] [facility] [place] [address] Referring Family Medicine 09/08/23 Jail Keeper Relationship Specialty Start Date End Date Ammon Lucas MD [address] [facility] [place] [address] PCP - General Family Medicine 12/18/23 Ammon Lucas MD [address] [facility] [place] [address] Referring Family Medicine 09/08/23 Jail Keeper Relationship Specialty Start Date End Date Ammon Lucas MD [address] [facility] [place] [address] PCP - General Family [facility] 12/18/23 Ammon Lucas MD [address] [facility] [place] [phone] Referring Family Medicine 09/08/23 FOR RECORDS PERTAINING TO PATIENTS WHO ARE OR HAVE BEEN ENROLLED IN A CHEMICAL DEPENDENCY/SUBSTANCEABUSE PROGRAM, SOME INFORMATION MAY BE OMITTED. This clinical summary was aggregated from multiple sources. Caution should be exercised in using it in the provision of clinical care. This summary normalizes information from multiple sources, and as a consequence, information in this document may materially change the coding, format and clinical context of patient data. In addition, data may be omitted in some cases. CLINICAL DECISIONS SHOULD BE BASED ON THE PRIMARY CLINICAL RECORDS. [email or web address] provides no warranty or guarantee of the accuracy or completeness of information in this document.
--- NOTE | 2024-09-02 12:54 | XR_ITS ---
The [address] [address] Patient Name: ZAYNAB LUTZ MRN: [id number] date: 1955 Sex: F Assigned Patient Location: ER Current Patient Location: ER Accession/Order Number: [id number] Exam Date: 09/02/2024 13:45 Report Date: 09/02/2024 14:23 At the request of: AGNES LOVE Procedure: XR hip RT 2V w/ pelvis PROCEDURE: XR hip RT 2V w/ pelvis HISTORY: fall ; right hip and pelvic pain COMPARISON: None. FINDINGS: BONES:No fracture, dislocation, or bone lesion. Degenerative osteophyte along the superior rim of the right acetabulum. Mild narrowing of the superior aspect of the hip joint spaces bilaterally. SOFT TISSUES:No visible soft tissue swelling. EFFUSION:None visible. OTHER: Negative. XR/XR hip RT 2V w/ pelvis IMPRESSION: 1. No acute bone abnormality. 2. Mild degenerative joint disease. Electronically authenticated by: DEREK MCCRAY Date: 09/02/2024 14:23
[2024-09-02] MEDS: HYDROCODONE/ACET 5-325 MG TABLET 1 TAB PO (13:21)
--- NOTE | 2024-09-02 13:44 | ED.GENADUL1 ---
HPI HPI - General Adult General Chief complaint: Back Pain/Injury Stated complaint: HIP PAIN Time Seen by Provider: 09/02/24 12:18 Source: patient Mode of arrival: walk-in Limitations: no limitations History of Present Illness HPI narrative: Patient presents to ED after a fall. Patient states that she lost her footing and started to stumble backwards and then fell onto her butt and back. She did not hit her head, no neck pain no loss of consciousness. She complains of right hip pain right groin pain and pain with trying to weight-bear on the right leg. She does have a history of a kidney transplant in the past. No fever no nausea vomiting. She denies any pain in her back neck or head. No other complaints at this time. Related Data Previous Rx's ?Medication ?Instructions ?Recorded prednisone 20 mg tablet 20 mg PO BID 5 days #10 tabs 03/18/23 Allergies Allergy/AdvReac Type Severity Reaction Status Date / Time clindamycin Allergy Intermediate Rash Verified 09/02/24 12:23 doxycycline Allergy Intermediate Rash Verified 09/02/24 12:23 Opioid HPI Opioid Management Most Recent Opioid Data: Last Pain Scale 6 09/02/24 13:21 09/02/24 Review of Systems ROS Status of ROS 10 or more systems reviewed and unremarkable except as noted in history and below PFSH PFSH Social History Little interest or pleasure in doing things: not at all Feeling down, depressed, or hopeless: not at all Exam Narrative Exam Narrative: General: alert, no acute distress Cardiovascular: regular rate and rhythm, normal peripheral perfusion. Respiratory: Lungs CTA, respirations non labored. Extremities: Pain with palpation in the anterior right hip. Pain with internal/external rotation. Pain with weightbearing. Normal distal pulses and sensation and motor. No midline back tenderness. No C-spine tenderness. Neurological: oriented x 4, LOC appropriate for age. Constitutional Vital Signs, click to edit/add: Last Vital Signs Temp 97.9 F 09/02/24 12:19 Pulse 89 09/02/24 12:19 Resp 20 09/02/24 12:19 BP 138/92 H 09/02/24 12:19 Pulse Ox 97 09/02/24 12:19 O2 Del Method Room Air 09/02/24 12:19 Course Vital Signs Vital signs: Vital Signs Temperature 97.9 F 09/02/24 12:19 Pulse Rate 89 09/02/24 12:19 Respiratory Rate 20 09/02/24 12:19 Blood Pressure 138/92 H 09/02/24 12:19 Pulse Oximetry 97 09/02/24 12:19 Oxygen Delivery Method Room Air 09/02/24 12:19 Temperature 97.9 F 09/02/24 12:19 Pulse Rate 89 09/02/24 12:19 Respiratory Rate 20 09/02/24 12:19 Blood Pressure 138/92 H 09/02/24 12:19 Pulse Oximetry 97 09/02/24 12:19 Oxygen Delivery Method Room Air 09/02/24 12:19 Medical Decision Making MDM Narrative Medical decision making narrative: X-ray reveals no acute changes no acute fracture or dislocation. Patient will be sent home with pain medication. Follow-up with family doctor or orthopedic doctor if this is not improving. Return to ED if worsening symptoms. Patient comfortable with care plan for home. Differential Diagnosis Differential Diagnosis: Fracture sprain strain Imaging Data CT scan - chest: Radiologist's impression: ITS Impressions Hip/Pelvis X-Ray 09/02/24 12:54 IMPRESSION: 1. No acute bone abnormality. 2. Mild degenerative joint disease. Electronically authenticated by: DEREK MCCRAY Date: 09/02/2024 14:23 Discharge Plan Discharge Chief Complaint: Back Pain/Injury Clinical Impression: Hip strain Patient Disposition: Home, Self-Care Time of Disposition Decision: 14:35 Condition: Good Mode of Transportation: Private Vehicle Prescriptions / Home Meds: No Action prednisone 20 mg tablet 20 mg PO BID 5 Days Qty: 10 0RF Print Language: Hong Konger Instructions: Hip Contusion (ED) Referrals: Alejandra Osborne MD [Primary Care Provider] - 1 week Derek Trejo MD [Physician] - 09/06/24 10:15 am Discharge Date/Time: 09/02/24 14:44
== END 2024-09-02 14:44 | disposition home or self-care (01) ==
PROVIDERS: Emergency Provider Emergency Medicine; PCP Family Medicine
DX: S76.011A Strain of muscle, fascia and tendon of right hip, initial encounter (principal); W01.0XXA Fall on same level from slipping, tripping and stumbling without subsequent striking against object, initial encounter; M16.11 Unilateral primary osteoarthritis, right hip; Z94.0 Kidney transplant status
CPT/HCPCS: 73502; 99283

== ENCOUNTER 2024-09-15 12:29 | Outpatient (OUT) | payer MEDICARE, SELFPAY ==
--- NOTE | 2024-09-15 12:33 | MR_ITS ---
[address] [address] Patient Name: ZAYNAB LUTZ MRN: [id number] date: 1955 Sex: F Assigned Patient Location: MRI Current Patient Location: Accession/Order Number: [id number] Exam Date: 09/15/2024 12:50 Report Date: 09/16/2024 12:08 At the request of: DEREK PATEL Procedure: MR hip RT wo con EXAM: MR hip RT wo con HISTORY: Acute right hip pain M25.551 COMPARISON: 09/02/2024 TECHNIQUE: MRI images obtained with multiple sequences. MRI of the right hip without contrast. Sequences obtained by standard department protocol. FINDINGS: Right sacral alar insufficiency fracture. There is acute edema. No acute abnormality of the visualized organs of the pelvis. Mild to moderate degeneration at the L4-5 and L5-S1 disc spaces. Mildly displaced fracture of the right superior pubic ramus and mildly displaced fracture of the right inferior pubic ramus. (Coronal T1 image 9, 15) Mildly displaced fracture of the left parasymphyseal region of the pubic bone with acute bone marrow edema (coronal STIR). Bilateral rectus femoris origins are intact. Bilateral iliopsoas tendons are intact. Bilateral rectus femoris origins are intact. Bilateral abductor tendons are intact. Bilateral hamstring origins are intact. No inguinal or pelvic adenopathy. Left pelvic kidney. Moderate/symmetric atrophy of the bilateral gluteus medius minimus muscle bellies MR/MR hip RT wo con IMPRESSION: 1. Right sacral alar insufficiency fracture. There is acute edema. 2. Mildly displaced fractures of the right superior and inferior pubic rami. Mildly displaced fracture of the left parasymphyseal region of the pubic bone. 3. No acute abnormality of the visualized organs of the pelvis. 4. Other findings as above. Electronically authenticated by: SANDEEP KELLEY Date: 09/16/2024 12:08
== END 2024-09-15 12:30 | disposition home or self-care (01) ==
LOC: MRI 12:30
PROVIDERS: PCP Family Medicine; Visit Provider Orthopaedic Surgery
DX: M25.551 Pain in right hip (principal); S32.810A Multiple fractures of pelvis with stable disruption of pelvic ring, initial encounter for closed fracture; S32.19XA Other fracture of sacrum, initial encounter for closed fracture
CPT/HCPCS: 73721

== ENCOUNTER 2024-09-30 09:15 | Outpatient (OUT) | payer MEDICARE, SELFPAY ==
--- NOTE | 2024-09-30 09:18 | MM_ITS ---
Patient Name: ZAYNAB LUTZ MR#: [id number] : 1955 Exam Date: 09/30/2024 Ordering Doctor: DELIA Topete . RADIOLOGY REPORT PROCEDURE: MM TOMOSYNTHESIS SCREENING BI COMPARISON: MG MAMM SCREEN 3D CINTHYA CAD, 08/13/2022. MM TOMOSYNTHESIS SCREENING BI, 09/29/2023. INDICATIONS: Screening Calculator Name NCI Breast Cancer Risk Assessment Tool 5 Year Breast Cancer Risk 1.50% Lifetime Breast Cancer Risk 5.20% Personal Breast Cancer No Personal Ovarian Cancer No Treatments None Family Cancers None LOCATION: [facility] BREAST COMPOSITION: There are scattered areas of fibroglandular density. FINDINGS: DIAGNOSTIC CATEGORY 1--NEGATIVE. NO CHANGE FROM COMPARISON ASSESSMENT. RIGHT BREAST: No significant suspicious finding. LEFT BREAST: No significant suspicious finding. RECOMMENDATIONS: ROUTINE MAMMOGRAM AND CLINICAL EVALUATION IN 12 MONTHS. PLEASE NOTE: A NORMAL MAMMOGRAM DOES NOT EXCLUDE THE POSSIBILITY OF BREAST CANCER. A CLINICALLY SUSPICIOUS PALPABLE LUMP SHOULD BE BIOPSIED. Dictated by: Boogie Mina MD on 09/30/2024 at 09:55 Approved by: Boogie Mina MD on 09/30/2024 at 09:56
== END 2024-09-30 09:16 | disposition home or self-care (01) ==
LOC: MAMMO 09:15
PROVIDERS: PCP Family Medicine; Visit Provider Physician Assistant
DX: Z12.31 Encounter for screening mammogram for malignant neoplasm of breast (principal)
CPT/HCPCS: 77063; 77067

== ENCOUNTER 2024-11-01 09:58 | Outpatient (OUT) | payer MEDICARE, SELFPAY ==
--- NOTE | 2024-11-01 | XR_ITS ---
The [address] [address] Patient Name: ZAYNAB LUTZ MRN: [id number] date: 1955 Sex: F Assigned Patient Location: Current Patient Location: Accession/Order Number: [id number] Exam Date: 11/01/2024 10:02 Report Date: 11/02/2024 08:59 At the request of: DEREK PATEL Procedure: XR pelvis 1-2V PROCEDURE: XR pelvis 1-2V HISTORY: PELVIS PAIN ; follow-up inferior pubic ramus fracture COMPARISON: XR hip right with pelvis 09/02/2024 FINDINGS: BONES:Mild callus formation along the margins of the right inferior pubic ramus near its medial margin. Questionable callus formation along the lateral aspect of right superior pubic ramus. No appreciable change of the right sacrum although this is not well seen on today's study. SOFT TISSUES:No visible soft tissue swelling. EFFUSION:None visible. OTHER: Negative. XR/XR pelvis 1-2V IMPRESSION: 1. Healing nondisplaced fractures of the right superior and inferior pubic rami as seen on the prior MRI study. Electronically authenticated by: DEREK MCCRAY Date: 11/02/2024 08:59
--- OUTSIDE RECORDS SUMMARY | 2024-11-01 10:05 | XMS_ITS | CCD ---
Author Organization [facility] Care Team Providers Care Tax Appraiser Name Role Phone Joel Monroe Unavailable Unavailable Joel Monroe Unavailable Unavailable Joel Monroe Unavailable Unavailable AMMON LUCAS~[id number] UNKNOWN Unavailable Unavailable Joel Monroe Unavailable Unavailable Joel Monroe PSigifredo Unavailable Unavailable Joel Monroe PSigifredo Unavailable Unavailable AMMON LUCAS~[id number] UNKNOWN Unavailable Unavailable Manuela Aly Unavailable Ayaka Joyner Unavailable Ammon Lucas Unavailable NAVEEN KAHN Admitting Unavailable NAVEEN KAHN Attending Unavailable HUICHMARITA ., DELIA TOLENTINO Consulting Unavailmindy LUCAS, DR [...] LISTED Attending Unavaila ble LANCE, DR AMMON Peres Primary Care Unavailable Boogie Mina Consulting Unavailable LANCE, DR AMMON Peres Primary Care Unavailable LANCE, DR AMMON Peres Attending Unavailable LANCE, DR AMMON Peres Admitting Unavailable LANCE, DR AMMON Peres Consulting Unavailable Unavailable Primary Care Provider UnavailAmmon Guzman MD Primary Care Provider Ammon Lucas MD Unavailable Ammon Lucas MD Primary Care Provider Ammon Lucas MD Primary Care Provider [phone] AMMON LUCAS Referring Unavailable LUCAS, AMMON E Primary Care Unavailable LUCAS, AMMON E Referring Unavailable LUCAS, AMMON E Primary Care Unavailable TENISHA, TESSA K Referring Unavailable LUCAS, AMMON E Primary Care Unavailable TENISHA, TESSA K Referring Unavailable LUCAS, AMMON E Primary Care Unavailable TENISHA, TESSA K Attending Unavailable LUCAS, AMMON Referring Unavailable TENISHA, TESSA K Attending Unavailable LUCAS, AMMON Referring Unavailable TENISHA, TESSA K Attending Unavailable SARAH GODWIN Attending [...] AUGUSTINA M Referring Unavailable ELTEMAMYCHIP Attending Unavailable LUCAS, AMMON E Primary Care Unavailable ELTEMAMY MOHFAM Referring Unavailable LUCAS, AMMON E Primary Care Unavailable LUCAS, AMMON E Primary Care Unavailable SELF Referring Unavailable RINA FOX Attending Unavailable RINA FOX Referring Unavailable RADU DELEON Attending Unavailable LUCAS, AMMON E Primary Care Unavailable LUCAS, AMMON E Primary Care Unavailable LUCAS, AMMON E Primary Care Unavailable LUCAS, AMMON E Primary Care Unavailable LUCAS, AMMON E Primary Care Unavailable ELTEMAMY, CHIP Attending Unavailable LUCAS, AMMON E Primary Care Unavailable LUCAS, AMMON E Primary Care Unavailable ELTEMAMY, CHIP Attending Unavailable ELTEMAMY, MOHAMED Referring Unavailable AMMON LUCAS Primary Care Unavailable AUGUSTINA VARGAS Attending Unavailable PAGE BUCHANAN Attending Unavailable AMMON LUCAS Primary Care Unavailable ELTEDEVONMY, MOHAMED Attending Unavailable AMMON LUCAS Primary Care Unavailable AUGUSTINA VARGAS Attending Unavailable AUGUSTINA VARGAS Referring Unavailable ELTESERGIO, MOHAMED Admitting Unavailable AMMON LUCAS Primary Care Unavailable BRUNO, MICHAELAMED Attending Unavailable Ammon Lucas MD Primary Care Provider [phone] Allergies Allergy Classification Reported Allergen(s) Allergy Type Date of Onset Reaction(s) Facility (9 sources) amoxicillin; Translations: [amoxicillin] Drug Allergy 02-13-20 17 Unknown [facility] Repository (20 sources) Bee/Wasp/Ant venom; Translations: [Bee Stings] Propensity to adverse reactions (disorder) Unknown [facility] Repository (20 sources) clindamycin; Translations: [clindamycin] Drug Allergy 09-24-20 15 Hives, Shortness Of Breath, Rash [facility] Repository (20 sources) doxycycline; Translations: [doxycycline] Drug Allergy 03-03-20 23 Rash, Hives [facility] Repository (11 sources) Penicillins; Translations: [penicillins] Propensity to adverse reactions (disorder) 02-13-20 17 Hives, Rash, Intolerance [facility] Repository (5 sources) Penicillin; Translations: [penicillin] Drug Allergy 06-18-20 18 Unknown [facility] Repository (11 sources) Bee pollen Drug Allergy 06-17-20 18 Comment:Bee Stings [facility] Other (11 sources) Codeine Drug Allergy 08-04-20 Comment:upset stomach [facility] Other (20 sources) Codeine; Translations: [CODEINE] Drug Allergy 06-17-20 18 GI Disturbance, GI Upset, GI intolerance [facility] (11 sources) Pseudoephedrine Drug Allergy 08-04-20 18 Unknown [facility] Other (6 sources) patient allergy list reviewed by nurse or physicia Propensity to adverse reactions 08-10-20 18 Comment:Done [facility] Other (3 sources) Allergies Reconciled Propensity to adverse reactions Unknown [facility] Other (1 source) Substance with penicillin structure and antibacterial mechanism of action (substance) Drug allergy 08-04-20 18 Unknown [facility] Other (7 sources) Fluconazole Drug Allergy dizziness [facility] Other (9 sources) Doxycycline; Translations: [DOXYCYCLINE HYCLATE] Drug Allergy 03-03-20 Rash [facility] (20 sources) Bee Venom Protein (Honey Bee); Translations: [BEE VENOM PROTEIN (HONEY BEE)] Propensity to adverse reactions to drug 12-05-19 [facility] (2 sources) VENOM-HONEY BEE; Translations: [VENOM-HONEY BEE] Propensity to adverse reactions to drug (disorder) 12-05-19 [facility] Other [facility] (3 sources) Bee pollen Allergy to substance 04-12-20 [facility] (3 sources) Fluconazole Allergy to substance 04-12-20 Dizziness [facility] (3 sources) Honey bee venom Allergy to substance 12-05-19 Rash, Hives [facility] (3 sources) Pseudoephedrine Drug Allergy 04-12-20 [facility] Medications Current Medications Medication Drug Class(es) Dates Sig (Normalized) Sig (Original) acetaminophen 500 mg oral tablet (3 sources) take 2 tablets by mouth every six hours as needed acetaminophen (Tylenol) 500 MG tablet Take 1,000 mg by mouth every 6 (six) hours if needed Active acetaminophen 325 mg / HYDROcodone bitartrate 5 mg oral tablet (20 sources) Opioid Agonist Start: 08-31-2020 End: 06-03-2024 take 1 tablet by mouth every six hours as needed HYDROcodone-acetami nophen ([place]) 5-325 MG tablet Take 1 tablet by mouth every 6 (six) hours if needed. 02/25/2023 06/03/2024 Discontinued (Med list cleanup) Comment on above: Take 1 tablet by [...] Pharmaceutical Waste: Lab Pack - Start: 05-28-2024 onabotulinumto xinA (Botox) 100 units injection Inject 100 Units into the shoulder, thigh, or buttocks every 3 months 05/28/2024 Active Start: 05-28-2024 onabotulinum t oxin type A [...] Take 600 mg by mouth once daily. Calcium Carbonate-Vit D-Min (Caltrate Bone Health Advanced) 600-800 MG-UNIT chewable tablet (3 sources) Calcium Carbonat e-Vit D-Min (Caltrate Bone Health Advanced) 600-800 MG-UNIT chewable tablet Chew Active CALCIUM CARBONATE-VITAMIN D3 ORAL (3 sources) take 600 mg by mouth in the morning CALCIUM CARBONATE-VITAMIN D3 ORAL Take 600 mg by mouth in the morning. Active take 600 mg by mouth in the morn ing CALCIUM CARBONATE-VITAMIN D3 ORAL Take 600 mg by mouth in the morning. 0 Active cyclobenzaprine hydrochloride 5 mg oral tablet (16 sources) Muscle Relaxant Start: 05-27-2024 End: 08-17-2024 cyclobenzaprine (FLEXERIL) 5 mg tablet Indications: High-tone pelvic floor dysfunction 1 tablet at bedtime as needed. Use vaginally 90 tablet 4 08/17/2024 Active take 2 tablets by [facility] three times daily as needed for muscle spasms cyclobenzaprine (FLEXERIL) 5 mg tablet T hedy 2 tablets (10 mg total) by mouth 3 (three) times a day as needed for muscle spasms. Active estradiol 0.1 mg/ml vaginal cream (6 sources) Estrogen Start: 07-06-2024 estradiol (EST RACE) 0.01 % (0.1 mg/gram) vaginal cream Indications: Vaginal dryness Use 0.5 g vaginally daily at bedtime. Apply finger tipped size to vulva, urethra nightly 42.5 g 2 07/06/2024 Active fluticasone propionate 0.05 mg/actuat metered dose nasal spray (20 sources) Corticosteroid fluticasone (STEVAN NASE) 50 mcg/actuation nasal spray Use 1 [place] in the nose as needed for cold/allergy symptoms. Take in allergy season Active take 1 spray(s) nasa l route in the morning fluticasone (Flonase) 50 MCG/ACT nasal spray Administer 1 spray into affected nostril(s) in the morning. Active fluticasone (STEVAN NASE) 50 mcg/actuation nasal spray Use 1 [place] in the nose once daily. 0 Active FLONASE Active Flonase Active Flonase Not-Juwan garzon Comment on above: Use 1 [place] in the n ose once daily. Use 1 [place] in the n ose as needed for cold/allergy symptoms. Take in allergy season gabapentin 300 mg oral capsule (20 sources) Anti-epileptic Agent Start: 0 End: gabapentin (Neurontin) 300 MG capsule Take 300 mg by mouth in the morning and 300 mg at noon and 300 mg in the evening. 07/02/2023 06/03/2024 Discontinued (Med list cleanup) Comment on above: Take 300 mg by [...] sulfate 120 mg extended release oral tablet (6 sources) alpha-Adrenergic Agonist loratadine-pseudoeph e drine (LORATADINE-D) 5-120 mg tablet extended release 12 hr Take 1 tablet by mouth every 12 (twelve) hours. 1/2 tablet- keeps right ear open Active methocarbamol 500 mg oral tablet (3 sources) Muscle Relaxant Start: 03-05-20 End: 06-03-20 take 1 tablet by mouth three times daily as needed methocarbamol (Robaxin) 500 MG tablet Take 500 mg by mouth 3 (three) times a day as needed 03/05/2023 06/03/2024 Discontinued (Med list cleanup) montelukast 10 mg oral tablet (20 sources) Leukotriene Receptor Antagonist Start: 06-18-20 take 1 tablet by mouth once daily montelukast (SINGULAIR) 10 mg tablet Take 10 mg by mouth once daily. 06/18/2018 Active Singulair Active Singulair Not-Elia carroll Comment on above: Take 10 mg by mouth once daily. nystatin [id number] unt/ml oral suspension (11 sources) Polyene Antifungal Start: 06-05-2023 take 4 mL by mouth four times daily Nystatin [id number] UNIT/ML 4 mL Mouth/Throat Four times a day for 14 day(s) May, Active Nystatin [id number] UNIT/ML swish and swallow 5 milliliters four [...] Start: 07-29-2021 take 1 tablet by brad every eight hours Valtrex 1 GM 1 [...] Active tamsulosin hydrochloride 0.4 mg oral capsule (17 sources) alpha-Adrenergic Amber Start: 03-05-2024 End: 06-06-2024 take 1 capsule by mouth once daily at bedtime tamsulosin (FLOMAX) 0.4 mg Take 1 capsule by mouth daily at bedtime. 42 capsule 03/05/2024 06/06/2024 Discontinued take 1 capsule by mo [facility] every twenty-four hours Flomax 0.4 MG 1 capsule Orally Once a day for 15 days Active Problems Active Problems Problem Classification Problem Date Documented Da te Episodic/Chronic Aortic; peripheral; and visceral artery aneurysms (20 sources) Aneurysm of infrarenal abdominal aorta ; Translations: [Infrarenal abdominal 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] Onset: 08-20-2023 Resolved: 12-01-2023 08-20-2023 Chronic Calculus of urinary tract (15 sources) Kidney stone; Translations: [Calculus of kidney] Episodic Chronic kidney disease (1 source) Kidney transplant status; Translations: [Kidney transplant status] Onset: 04-26-2024 Chronic Diseases of mouth; excluding dental (10 sources) Dry mouth, unspecified; Translations: [Chronic sialadenitis] Onset: 10-07-2023 Resolved: 12-01-2023 Episodic Disorders of lipid metabolism (20 sources) Hyperlipidemia; Translations: [Other hyperlipidemia] Onset: 02-19-2024 Resolved: 06-02-2024 02-19-2024 Chronic Genitourinary symptoms and ill-defined conditions (1 source) Dysuria Episodic Headache; including migraine (6 sources) Tension-type headache; Translations: [Tension-type headache, unspecified, not intractable] Onset: 03-17-2023 Resolved: 06-02-2024 07-25-2023 Chronic Headache; including migraine (3 sources) Headache; Translations: [Headache, unspecified] Episodic Lymphadenitis (3 sources) Localized enlarged lymph nodes; Translations: [Localized enlarged lymph nodes] Episodic Menopausal disorders (1 source) Atrophic vaginitis; Translations: [Postmenopausal atrophic vaginitis] 07-06-2024 Chronic Mycoses (5 sources) Candidiasis, unspecified; Translations: [Candidal stomatitis] Onset: 11-25-2022 Episodic Nutritional deficiencies (20 sources) Malnutrition (calorie); Translations: [Moderate protein-calorie malnutrition] Onset: 03-03-2024 Resolved: 06-02-2024 04-10-2024 Chronic Osteoporosis (6 sources) Osteoporosis; Translations: [Age-related osteoporosis without current pathological fracture] Onset: 03-04-2023 07-25-2023 Chronic Other aftercare (1 source) Encounter for aftercare following kidney transplant; Translations: [Encounter for aftercare following kidney transplant] Onset: 04-07-2024 Chronic Other aftercare (1 source) Other halfway (current) 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; Translations: [OTH PENITENTIARY CURRENT DRUG THERAPY] Onset: 02-25-2023 Episodic Other [...] Onset: 06-17-2018 Chronic Other upper respiratory disease (6 sources) Chronic rhinitis; Translations: [Chronic rhinitis] Onset: 03-17-2023 Resolved: 06-02-2024 07-25-2023 Chronic Other upper respiratory infections (20 sources) Sinusitis; Translations: [Chronic sinusitis, unspecified] Chronic Other upper respiratory infections (3 sources) Acute maxillary sinusitis, unspecified; Translations: [Acute recurrent maxillary sinusitis] Episodic Peripheral and visceral atherosclerosis (6 sources) Peripheral vascular disease; Translations: [Peripheral vascular [...] Date Documented Da te Episodic/Chronic Abdominal pain (14 sources) Pelvic and perineal pain; Translations: [Pain in pelvis] Onset: 02-22-2023 Resolved: 12-01-2023 Episodic Cardiac dysrhythmias (20 sources) ECG: sinus bradycardia; Translations: [Bradycardia, unspecified] Onset: 02-20-2024 Resolved: 06-02-2024 02-20-2024 Episodic Conditions associated with dizziness or vertigo (3 sources) Benign paroxysmal positional vertigo; Translations: [Benign paroxysmal positional vertigo] Onset: 06-17-2018 Episodic Mood disorders (3 sources) Mood disorders Onset: 03-29-2020 03-29-2020 Nonspecific chest pain (6 sources) Chest pain; Translations: [Chest pain, unspecified] Onset: 06-12-2023 Resolved: 12-01-2023 06-12-2023 Episodic Other aftercare (3 sources) Follow-up status; Translations: [Encounter for follow-up examination after completed treatment for conditions other than malignant neoplasm] Onset: 03-17-2023 03-17-2023 Episodic Other and unspecified benign neoplasm (3 sources) Polyp of colon; Translations: [Polyp of colon] Onset: 06-17-2018 Episodic Other bone disease and musculoskeletal deformities (3 sources) Bone density finding; Translations: [Other specified disorders of bone density and structure, unspecified site] Onset: 06-17-2018 Episodic Other connective tissue disease (20 sources) Elongated styloid process syndrome; Translations: [Disorder of ligament, unspecified site] Onset: 03-29-2020 Resolved: 06-02-2024 03-29-2020 Episodic Other connective tissue disease (1 source) Disorder of ligament, unspecified site; 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] Onset: 02-19-2024 Episodic Other diseases of veins and lymphatics (6 sources) Venous stenosis; Translations: [Compression of vein] Onset: 03-29-2020 Resolved: 12-01-2023 03-29-2020 Episodic Other diseases of veins and lymphatics (20 sources) Renal vascular disorder; Translations: [Compression of vein] Onset: 02-19-2024 Resolved: 06-02-2024 12-12-2023 Episodic Other diseases of veins and lymphatics (20 sources) Varices of ovary; 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] Onset: 02-19-2024 Resolved: 06-02-2024 02-19-2024 Episodic Other diseases of veins and [...] unspecified] Onset: 06-17-2018 Episodic Other gastrointestinal disorders (6 sources) Pharyngeal dysphagia; Translations: [Dysphagia, pharyngeal phase] Onset: 03-17-2023 Resolved: 06-02-2024 07-25-2023 Episodic Other lower respiratory disease (1 source) Solitary pulmonary nodule; Translations: [Solitary pulmonary nodule] Onset: 01-16-2024 Episodic Other lower respiratory disease (2 sources) Nodule of lung; Translations: [Solitary pulmonary nodule] 06-03-2024 Episodic Other screening for suspected conditions (not mental disorders or infectious disease) (10 sources) Encounter for screening mammogram for malignant neoplasm of breast; Translations: [Patient encounter status] Onset: 08-13-2022 Episodic Other skin disorders (3 sources) Asteatosis cutis; Translations: [Xerosis cutis] Onset: 06-17-2018 Episodic Other skin disorders (3 sources) Mass of right submandibular region; Translations: [Localized swelling, mass and lump, head] Onset: 12-01-2023 Resolved: 12-01-2023 12-01-2023 Episodic Residual codes; unclassified (6 sources) Family history of aneurysm of abdominal aorta; Translations: [Family history of ischemic heart disease and other diseases of the circulatory system] Onset: 08-20-2023 Resolved: 12-01-2023 08-20-2023 Episodic Residual codes; unclassified (7 sources) Submandibular salivary gland swelling; Translations: [Localized edema] Onset: 10-07-2023 Resolved: 12-01-2023 10-07-2023 Episodic Residual codes; unclassified (1 source) Localized edema; Translations: [Localized edema] Onset: 10-07-2023 Episodic Spondylosis; intervertebral disc disorders; other back problems (3 sources) Neck pain; Translations: [Cervicalgia] Onset: 12-01-2023 Resolved: 12-01-2023 12-01-2023 Episodic Substance-related disorders (20 sources) Narcotic drug user; Translations: [Opioid use, unspecified, uncomplicated] Onset: 02-19-2024 Resolved: 06-02-2024 02-19-2024 Episodic Unclassified (1 source) Contact with [...] Test Name Value Interpretation Reference Range Facility [facility] 09-21-2024 [facility] Telephone ([facility]) ZAYNAB ZAIDI ([id number]) 1955 F Date Time Provider Department 09/21/24 AUGUSTINA VARGAS [facility] During your visit today, we recorded the following information about you: Tosin Jin 09/21/2024 12:21 PM Signed Pt fyi - broke pelvis in four places about 3 weeks ago. Had to cancel all future PT appts and will need new order for end of end of November/beginning of December. Also had to reschedule TPI to end of November. Pt concerned and wanted to insure Dr was aware of current situation. Alysha Torres RN 09/21/2024 2:45 PM Signed NICK 08/17/2024 Assessment: Encounter Diagnosis ICD-10-CM 1. High-tone pelvic floor dysfunction M62.89 cyclobenzaprine (FLEXERIL) 5 mg tablet onabotulinum toxin type A 100 Units injection (BOTOX) Plan: 1) fu botox and abd TPI 10/05/24 2) continue flexeril vaginally Total Time Spent: 5-10 minutes MD Melissa Beatty Heather, RN 09/21/2024 2:45 PM Signed Addended by: ALYSHA TORRES on: 09/21/2024 02:45 PM Modules accepted: Orders Augustina Vargas MD 09/23/2024 3:10 PM Signed Sent msg Encounter Diagnosis ICD-10-CM 1. Pelvic pain in female R10.2 CONSULT TO PHYSICAL THERAPY Augustina Vargas MD 09/23/2024 3:10 PM Signed Addended by: AUGUSTINA VARGAS on: 09/23/2024 03:10 PM Modules accepted: Orders Allergies As of Date: 09/21/2024 Noted Allergy Reaction CLINDAMYCIN 06/30/2018 2 - Rash 12 - Shortness of Breath DOXYCYCLINE 12/18/2023 2 - Rash VENOM-HONEY BEE 12/05/2019 2 - Rash CODEINE 06/30/2018 8 - GI Upset Date Reviewed: 07/06/2024 Reviewed by: Austin Morris RN - Fully Assessed Reason for Visit: Other [3945] Patient Update [1234] Primary Visit Diagnosis:Pelvic pain in female [R10.2] Order(s):CONSULT TO PHYSICAL THERAPY [9032] Order #: [id number]: 1 FUTURE Prescriptions as of 09/23/2024 - cyclobenzaprine (FLEXERIL) 5 mg tablet 1 [...] (FLONASE) 50 mcg/actuation nasal spray Use 1 [place] in the nose as needed for cold/allergy symptoms. Take in allergy season - gabapentin (NEURONTIN) 300 mg capsule Take 300 mg by mouth as needed for pain. - montelukast (SINGULAIR) 10 mg tablet Take 10 mg by mouth once daily. - ibuprofen (MOTRIN) 200 mg tablet Take 400 mg by mouth two times a day. 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/2024 Narcotic drug use [F11.90] 02/19/2024 Sinus bradycardia on ECG [R00.1] 02/20/2024 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 Malnutrition of moderate degree (HCC) [E44.0] 03/03/2024 Encounter Status:Closed by TOSIN JIN on 09/21/24 [facility] Heidi 08-23-2024 [facility]IBEL[facility] Telephone ([facility]) ZAYNAB ZAIDI ([id number]) 1955 F Date Time Provider Department 08/23/24 AUGUSTINA VARGAS JAMES During your visit today, we recorded the following information about you: Nano Cline 08/23/2024 1:54 PM Signed Received call from pharmacy asking for clarification of directions for: cyclobenzaprine (FLEXERIL) 5 mg tablet States that direction says to use vaginally but prescription is for oral tablet Please advise: [facility]- [email or web address] [id number] - [place] [address] - [address] - [phone] Morenita Lopez RN 08/23/2024 2:26 PM Signed Called [facility] to clarify that prescription is for Flexeril [...] (FLONASE) 50 mcg/actuation nasal spray Use 1 [place] in the nose as needed for cold/allergy [...] Resolved Pararenal abdominal aortic aneurysm (AAA) witho*12/18/2023 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/2024 Other hyperlipidemia [E78.49] 02/19/2024 Ovarian varices [I86.2] 02/19/2024 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/2024 Narcotic drug use [F11.90] 02/19/2024 Sinus bradycardia on ECG [R00.1] 02/20/2024 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 Malnutrition of moderate degree (HCC) [E44.0] 03/03/2024 Encounter Status:[facility] ZAYNAB ZAIDI ([id number]) 1955 F Date Time Provider Department 08/17/24 AUGUSTINA VARGAS [facility] During your visit today, we recorded the following information about you: Augustina Vargas MD 08/17/2024 4:55 PM Signed Please put her on my schedule oct 05, 2024 at 2:30pm for botox, which is approved already Patient aware Augustina Vargas MD 08/18/2024 1:24 PM Signed Done Encounter Diagnosis ICD-10-CM 1. 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/2024 Other hyperlipidemia [E78.49] 02/19/2024 Ovarian varices [I86.2] 02/19/2024 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/2024 Narcotic drug use [F11.90] 02/19/2024 Sinus bradycardia on ECG [R00.1] 02/20/2024 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.. Normal [facility] Heidi 06-06-2024 CNPN Telephone ([facility]) ZAYNAB ZAIDI ([id number]) 1955 F Date Time Provider Department 06/06/24 [place], AUGUSTINA GYNMN During your visit today, we recorded the following information about you: Augustina Vargas MD 06/06/2024 11:10 PM Signed Botox is approved; can she start PFPT if she desires and then do botox or do botox in office first available appointment MoizNaveen Tono Martinez 06/07/2024 8:25 AM Signed Done Martinez Chang [...] (FLONASE) 50 mcg/actuation nasal spray Use 1 [place] in the nose as needed for cold/allergy [...] Resolved Pararenal abdominal aortic aneurysm (AAA) witho*12/18/2023 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/2024 Other hyperlipidemia [E78.49] 02/19/2024 Ovarian varices [I86.2] 02/19/2024 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 Kira Avlarez RN June 07, 2024 10:25 AM Allergies As of Date: 06/04/2024 Noted Allergy Reaction CLINDAMYCIN 06/30/2018 2 - Rash 12 - Shortness of Breath DOXYCYCLINE 12/18/2023 2 - Rash VENOM-HONEY BEE 12/05/2019 2 - Rash CODEINE 06/30/2018 8 - GI Upset Date Reviewed: 05/27/2024 Reviewed by: Radha Chen OCCA - Fully Assessed Reason for Visit: Patient Question [1477] Prescriptions as of 06/07/2024 - cyclobenzaprine (FLEXERIL) 5 mg tablet Take 1 tablet by mouth at bedtime as needed. - calcium carbonate/vitamin D3 (CALTRATE 600 + D ORAL) Take 600 mg by mouth two times a day. - atorvastatin (LIPITOR) 20 mg tablet Take 20 mg by mouth every evening. 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 Malnutrition of moderate degree (HCC) [E44.0] 03/03/2024 Encounter Status:Closed by KIRA ALVAREZ on 06/07/24 [facility] 05-28-2024 CNPN Telephone (GYNMN) ZAYNAB ZAIDI ([id number]) 1955 F Date Time Provider Department 05/28/24 AUGUSTINA VARGAS GYNIN During your visit today, we recorded the following information about you[facility] 05/28/2024 10:00 AM Signed Reason for call: [...] visit in this department: 08/27/2024 08/27/2024 in [facility] with AUGUSTINA VARGAS - 3 MO F/U - TVST ok per Dr. 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 Malnutrition of moderate degree (HCC) [E44.0] 03/03/2024 Encounter Status:Closed by AUGUSTINA VARGAS on 08/18/24 [facility] Chaz 05-27-2024 CNOV Office Visit (UROLMN ) ZAYNAB ZAIDI ([id number]) 1955 F Date Time Provider Department 05/27/24 [...] (FLONASE) 50 mcg/actuation nasal spray Use 1 [place] in the nose as needed for cold/allergy [...] SURGICAL HISTORY OF; Right Comment: styloidectomy for [place] syndrome No date: PAST SURGICAL HISTORY OF [...] (FLONASE) 50 mcg/actuation nasal spray Use 1 [place] in the nose as needed for cold/allergy [...] aortic aneurys (more content not included)... Normal [facility] Office Visit (ICCP ) ZAYNAB ZAIDI ([id number]) 1955 F Date Time Provider Department 05/27/24 9:00 AM AUGUSTINA VARGAS [facility] During your visit today, we recorded the following information about you: Blood pressure Weight Height 146/80 60.3 kg 1.702 m Augustina Vargas MD 06/06/2024 11:06 PM Signed [facility] SECTION FOR CHRONIC PELVIC PAIN OUTPATIENT VISIT DATE 05/27/2024 OUTPATIENT VISIT TYPE CONSULT REFERRING PROVIDER: No ref. provider found PRIMARY CARE PROVIDER: Ammon Lucas MD PRIMARY FUR BLENDER: Consultation requested by referring provider above for [...] pain. 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 Patient is postmenopausal. Cycles: Menopausal Last pap: Pap Results: WNL/neg HPV 03/2023 History of abnormal pap: No [place]: (MA intake) Dyspareunia: both insertional and deep [...] endorses Pain changes with bowel movements: endorses. [place] scale: dnc Pudendal symptoms: (page 13) Pain [...] Urinary hesitancy/difficult (more content not included)... Normal [facility] URINALYSIS, REFLEX MICROSCOP ICon 05-27-2024 Bilirubin Ql (U) Negative Negative [facility] Clarity (Unsp spec) Clear Clear [facility] Color (U) Yellow Yellow [facility] Glucose Test strip (U) [Mass/Vol] Negative Negative [facility] Hemoglobin Ql (U) Negative Negative [facility] Interpretation and review of laboratory results Normal [facility] Ketones Ql (U) Negative Negative [facility] Leukocyte esterase Test strip Ql (U) Negative Negative [facility] Nitrite Ql (U) Negative Negative [facility] pH (U) 5.5 [pH] NINF - 8.5 [facility] Protein (U) [Mass/Vol] Negative Negative [facility] Specific gravity (U) [Rel density] 1.010 1.005 - 1.030 [facility] Urobilinogen Ql (U) 0.2 EU/dL 0.2-1.0 EU/dL [facility] This test was [place] and its performance characteristics determined by [facility]'s Raoul Gerardo [facility] [place] ([facility]). It has not been cleared or approved by the FDA. [facility] is regulated under CLIA as qualified to perform high-complexity testing. This test is used for clinical purposes. It should not be regarded as investigational or for research. [facility] Bilirubin Ql (U) Negative Normal Negative [facility] Comment on above: Order Comment: Specimen Type: URINE SPEC IMENOrdering Facility: [facility] Address: [address] [place] [address] Performed By: #### L [id number] ####[facility] LABCL[facility] [id number] [place] [address] [place] Clarity (Unsp spec) Clear Normal Clear [facility] Comment on above: Order Comment: Specimen Type: URINE SPEC IMENOrdering Facility: [facility] Address: [address] [place] [address] Performed By: #### L [id number] ####[facility] [id number] [place] [address] [place] Color (U) Yellow Normal Yellow [facility] Comment on above: Order Comment: Specimen Type: URINE SPEC IMENOrdering Facility: [facility] Address: [address] [place] [address] Performed By: #### L [id number] ####[facility] [id number] [place] [address] [place] Glucose Test strip (U) [Mass/Vol] Negative Normal Negative [facility] Comment on above: Order Comment: Specimen Type: URINE SPEC IMENOrdering Facility: [facility] Address: [address] [place] [address] Performed By: #### L [id number] ####[facility] [id number] [place] [address] [place] Hemoglobin Ql (U) Negative Normal Negative [facility] Comment on above: Order Comment: Specimen Type: URINE SPEC IMENOrdering Facility: [facility] Address: [address] [place] [address] Performed By: #### L [id number] ####[facility] [id number] [place] [address] [place] Ketones Ql (U) Negative Normal Negative [facility] Comment on above: Order Comment: Specimen Type: URINE SPEC IMENOrdering Facility: [facility] Address: [address] [place] [address] Performed By: #### L [id number] ####[facility] [id number] [place] [address] [place] Leukocyte esterase Test strip Ql (U) Negative Normal Negative [facility] Comment on above: Order Comment: Specimen Type: URINE SPEC IMENOrdering Facility: [facility] Address: [address] [place] [address] Performed By: #### L [id number] ####[facility] [id number] [place] [address] [place] Nitrite Ql (U) Negative Normal Negative [facility] Comment on above: Order Comment: Specimen Type: URINE SPEC IMENOrdering Facility: [facility] Address: [address] [place] [address] Performed By: #### L [id number] ####[facility] [id number] [place] [address] [place] pH (U) 5.5 [pH] Normal <8.5 [facility] Comment on above: Order Comment: Specimen Type: URINE SPEC IMENOrdering Facility: [facility] Address: [address] [place] [address] Performed By: #### L [id number] ####[facility] [id number] [place] [address] [place] Protein (U) [Mass/Vol] Negative Normal Negative [facility] Comment on above: Order Comment: Specimen Type: URINE SPEC IMENOrdering Facility: [facility] Address: [address] [place] [address] Performed By: #### L [id number] ####[facility] LABIA [id number] [place] [address] [place] Specific gravity (U) [Rel density] 1.010 Normal 1.005-1.03 0 [facility] Comment on above: Order Comment: Specimen Type: URINE SPEC IMENOrdering Facility: [facility] Address: [address] [place] [address] Performed By: #### L [id number] ####[facility] LABIA [id number] [place] [address] [place] Urobilinogen Ql (U) 0.2 EU/dL Normal 0.2-1.0 EU/dL [facility] Comment on above: Order Comment: Specimen Type: URINE SPEC IMENOrdering Facility: [facility] Address: [address] [place] [address] Performed By: #### L [id number] ####[facility] LABIA [id number] [place] [address] [place] CT CHEST WO [...] Villafuerte MD on 05/11/2024 8:36 AM Normal [facility] CREATININE, BLOOD (POC)on Creatinine [Mass/Vol] 0.80 mg/dL 0.7 - 1.4 mg/dL [facility] eGFR (POCT) mL/min/1.7 3 m2 [facility] Location:Radiology [facility], [address] [place] [address], [address] [place] [address] POINT OF CARE [facility] CT ABD/PEL W IVCONon 024 CT [...] obtained in 12 months --END OF FINDING-- Management Technician: TRINI Transcribe Date/Time: Apr 30 2024 12:52P Dictated by : KARI LUJAN MD This examination was interpreted and the report reviewed and electronically signed by: KARI LUJAN MD on Apr 30 2024 1:16PM EST [id number] Invalid Interpretation Code [facility] NURSING PROGon 04-26-2024 NURSING PROG HNO ID: [id number] Author: JORGE OLEA RN Service: Radiology Author [...] SITE APPEARANCE: Clean,Dry and Intact SIGNATURE: Alysha M Gazvoda, RN PATIENT NAME: Zaynab Zaidi DATE: April 26, 2024 TIME: 1:22 PM [facility] 04-21-2024 [facility] Telephone (LITZY) ZAYNAB ZAIDI ([id number]) 1955 F Date Time Provider Department 04/21/24 [...] op f/up. She is seeing gynecology at [facility] on 05/27, will try to coordinate appt w/ Dr. Carr on that day. Jesús Borrero MD Allergies As of Date: 04/21/2024 Noted Allergy Reaction CLINDAMYCIN 06/30/2018 2 - Rash 12 - Shortness of Breath DOXYCYCLINE 12/18/2023 2 - Rash VENOM-HONEY BEE 12/05/2019 2 - Rash CODEINE 06/30/2018 8 - GI Upset Date Reviewed: 04/07/2024 Reviewed by: Iglesia Love, DIANE - Fully Assessed Prescriptions as of 04/21/2024 - tamsulosin (FLOMAX) 0.4 mg Take 1 capsule by mouth daily at bedtime. - calcium carbonate/vitamin D3 (CALTRATE 600 + D ORAL) Take 600 mg by mouth two times a day. - atorvastatin (LIPITOR) 20 mg tablet Take 20 mg by mouth every evening. 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 Malnutrition of moderate degree (HCC) [E44.0] 03/03/2024 Encounter Status:Closed by JESÚS BORRERO on 04/21/24 [facility] CNOVon 04-07-2024 CNOV Office Visit (UROSMN ) ZAYNAB ZAIDI ([id number]) 1955 F Date Time Provider Department 04/07/24 11:15 AM CHIP CARR UROBENY During your visit today, we recorded the following information about you: Pretty Rahman RN 04/07/2024 1:09 PM Signed Actual procedure/procedure scheduled: Yes Performing provider/scheduled provider: Yes Patient was roomed in: Q9- 06 Patent Lawyer offered:Patient declines Patient arrived in the room [...] post-procedure instructions (more content not included)... [facility] HNO ID: [id number] Author: CHIP CARR MD Service: Urology Author Type: Resident Type: Discharge Summary Filed: 03/22/2024 15:49 Note Text: Attestation signed by Chip Carr MD at 03/22/2024 3:49 PM Agree with the details as outlined be the resident/ fellow Chip Carr MD [facility] [place] [phone] or [phone]) [facility] DISCHARGE SUMMARY Patient Name: Zaynab Zaidi Patient [...] Your Medications These medications were sent to [facility] - [place] [address] - [address] [facility] - [phone] [facility] [address] acetaminophen 500 mg tablet docusate sodium 100 mg capsule methocarbamol 750 mg tablet oxyCODONE IR 5 mg immediate release tablet tamsulosin 0.4 mg No future appointments. -- Ace Vera MD Normal [facility] Basic metabolic 2000 panelon 03-04-2024 Anion gap [Moles/Vol] 9 mmol/L Normal 9-18 [facility] Comment on above: Order Comment: Specimen Type: BLOOD SPEC IMENOrdering Facility: [facility] Address: [address], [place] [address] Performed By: #### 2 4321-2 ####[facility] LABCL[facility] [id number] [place] [address] [place] Calcium [Mass/Vol] 9.0 mg/dL Normal 8.5-10.2 [facility] Comment on above: Order Comment: Specimen Type: BLOOD SPEC IMENOrdering Facility: [facility] Address: [address] [place] [address] Performed By: #### 2 4321-2 ####[facility]CL[facility] [id number] [place] [address] [place] Chloride [Moles/Vol] 98 mmol/L Normal 97-105 [facility] Comment on above: Order Comment: Specimen Type: BLOOD SPEC IMENOrdering Facility: [facility] Address: [address] [place] [address] Performed By: #### 2 4321-2 ####[facility] LABCL[facility] [id number] [place] [address] [place] CO2 [Moles/Vol] 31 mmol/L High 22-30 [facility] Comment on above: Order Comment: Specimen Type: BLOOD SPEC IMENOrdering Facility: [facility] Address: [address] [place] [address] Performed By: #### 2 4321-2 ####[facility] LABCL[facility] [id number] [place] [address] [place] Creatinine [Mass/Vol] 0.81 mg/dL Normal 0.58-0.96 [facility] Comment on above: Order Comment: Specimen Type: BLOOD SPEC IMENOrdering Facility: [facility] Address: [address] [place] [address] Performed By: #### 2 4321-2 ####[facility] LABCLIA [id number] [place] [address] [place] Creatinine and Glomerular filtration rate.predicted panel (S/P/Bld) 80 mL/min/1.73m??? Normal >=60 [facility] Comment on above: Order Comment: Specimen Type: BLOOD SPEC IMENOrdering Facility: [facility] Address: [address] [place] [address] Result Comment: Lani mated Glomerular Filtration Rate [...] actual GFR. Performed By: #### 2 4321-2 ####[facility] LABIA [id number] [place] [address] [place] Glucose [Mass/Vol] 103 mg/dL High 74-99 [facility] Comment on above: Order Comment: Specimen Type: BLOOD SPEC IMENOrdering Facility: [facility] Address: [address] [place] [address] Result Comment: The [place] Diabetes Association (ADA) provides guidance for cutoff [...] Standards of Medical Care in Diabetes 2016, [place] Diabetes Association. Diabetes Care. 2016.39(Suppl 1). Performed By: #### 2 4321-2 ####[facility] LABIA [id number] [place] [address] [place] Potassium [Moles/Vol] 3.9 mmol/L Normal 3.7-5.1 [facility] Comment on above: Order Comment: Specimen Type: BLOOD SPEC IMENOrdering Facility: [facility] Address: [address] [place] [address] Performed By: #### 2 4321-2 ####[facility] LABCL[facility] [id number] [place] [address] [place] Sodium [Moles/Vol] 138 mmol/L Normal 136-144 [facility] Comment on above: Order Comment: Specimen Type: BLOOD SPEC IMENOrdering Facility: [facility] Address: [address] [place] [address] Performed By: #### 2 4321-2 ####[facility] LABCL[facility] [id number] [place] [address] [place] Urea nitrogen [Mass/Vol] 10 mg/dL Normal 7-21 [facility] Comment on above: Order Comment: Specimen Type: BLOOD SPEC IMENOrdering Facility: [facility] Address: [address] [place] [address] Performed By: #### 2 4321-2 ####[facility] LABCL[facility] [id number] [place] [address] [place] CBC W Auto Differential pane l (Bld)on 03-04-2024 Basophils (Bld) [#/Vol] 0.03 10*3/uL Normal <0.11 [facility] Comment on above: Order Comment: Specimen Type: BLOOD SPEC IMENOrdering Facility: [facility] Address: [address] [place] [address] Performed By: #### 5 7021-8 ####[facility] LABCLIA [id number] [place] [address] [place] Basophils/100 WBC (Bld) 0.4 % Normal [facility] Comment on above: Order Comment: Specimen Type: BLOOD SPEC IMENOrdering Facility: [facility] Address: [address] [place] [address] Performed By: #### 5 7021-8 ####[facility] LABCLIA [id number] [place] [address] [place] Differential cell count method Nom (Bld) Auto Normal [facility] Comment on above: Order Comment: Specimen Type: BLOOD SPEC IMENOrdering Facility: [facility] Address: [address] [place] [address] Performed By: #### 5 7021-8 ####[facility] LABCLIA [id number] [place] [address] [place] Eosinophils (Bld) [#/Vol] 0.08 10*3/uL Normal <0.46 [facility] Comment on above: Order Comment: Specimen Type: BLOOD SPEC IMENOrdering Facility: [facility] Address: [address] [place] [address] Performed By: #### 5 7021-8 ####[facility] LABCL[facility] [id number] [place] [address] [place] Eosinophils/100 WBC (Bld) 1.1 % Normal [facility] Comment on above: Order Comment: Specimen Type: BLOOD SPEC IMENOrdering Facility: [facility] Address: [address] [place] [address] Performed By: #### 5 7021-8 ####[facility] LABCLIA [id number] [place] [address] [place] Erythrocyte distribution width (RBC) [Ratio] 14.1 % Normal 11.5-15.0 [facility] Comment on above: Order Comment: Specimen Type: BLOOD SPEC IMENOrdering Facility: [facility] Address: [address] [place] [address] Performed By: #### 5 7021-8 ####[facility] LABCLIA [id number] [place] [address] [place] Hematocrit (Bld) [Volume fraction] 38.2 % Normal 36.0-46.0 [facility] Comment on above: Order Comment: Specimen Type: BLOOD SPEC IMENOrdering Facility: [facility] Address: [address] [place] [address] Performed By: #### 5 7021-8 ####[facility] LABCL[facility] [id number] [place] [address] [place] Hemoglobin (Bld) [Mass/Vol] 12.8 g/dL Normal 11.5-15.5 [facility] Comment on above: Order Comment: Specimen Type: BLOOD SPEC IMENOrdering Facility: [facility] Address: [address] [place] [address] Performed By: #### 5 7021-8 ####[facility] LABCLIA [id number] [place] [address] [place] Immature granulocytes (Bld) [#/Vol] 10*3/uL Normal <0.10 [facility] Comment on above: Order Comment: Specimen Type: BLOOD SPEC IMENOrdering Facility: [facility] Address: [address] [place] [address] Performed By: #### 5 7021-8 ####[facility] LABCL[facility] [id number] [place] [address] [place] Immature granulocytes/100 WBC (Bld) 0.1 % Normal [facility] Comment on above: Order Comment: Specimen Type: BLOOD SPEC IMENOrdering Facility: [facility] Address: [address] [place] [address] Performed By: #### 5 7021-8 ####[facility] LABCL[facility] [id number] [place] [address] [place] Lymphocytes (Bld) [#/Vol] 0.88 10*3/uL Low 1.00-4.00 [facility] Comment on above: Order Comment: Specimen Type: BLOOD SPEC IMENOrdering Facility: [facility] Address: [address] [place] [address] Performed By: #### 5 7021-8 ####[facility] LABCL[facility] [id number] [place] [address] [place] Lymphocytes/100 WBC (Bld) 11.8 % Normal [facility] Comment on above: Order Comment: Specimen Type: BLOOD SPEC IMENOrdering Facility: [facility] Address: [address] [place] [address] Performed By: #### 5 7021-8 ####[facility] [id number] [place] [address] [place] MCH (RBC) [Entitic mass] 29.2 pg Normal 26.0-34.0 [facility] Comment on above: Order Comment: Specimen Type: BLOOD SPEC IMENOrdering Facility: [facility] Address: [address] [place] [address] Performed By: #### 5 7021-8 ####[facility] [id number] [place] [address] [place] MCHC (RBC) [Mass/Vol] 33.5 g/dL Normal 30.5-36.0 [facility] Comment on above: Order Comment: Specimen Type: BLOOD SPEC IMENOrdering Facility: [facility] Address: [address] [place] [address] Performed By: #### 5 7021-8 ####[facility] [id number] [place] [address] [place] MCV (RBC) [Entitic vol] 87.0 fL Normal 80.0-100.0 [facility] Comment on above: Order Comment: Specimen Type: BLOOD SPEC IMENOrdering Facility: [facility] Address: [address] [place] [address] Performed By: #### 5 7021-8 ####[facility] [id number] [place] [address] [place] Monocytes (Bld) [#/Vol] 0.94 10*3/uL High <0.87 [facility] Comment on above: Order Comment: Specimen Type: BLOOD SPEC IMENOrdering Facility: [facility] Address: [address] [place] [address] Performed By: #### 5 7021-8 ####[facility] [id number] [place] [address] [place] Monocytes/100 WBC (Bld) 12.6 % Normal [facility] Comment on above: Order Comment: Specimen Type: BLOOD SPEC IMENOrdering Facility: [facility] Address: [address] [place] [address] Performed By: #### 5 7021-8 ####[facility] [id number] [place] [address] [place] Neutrophils (Bld) [#/Vol] 5.54 10*3/uL Normal 1.45-7.50 [facility] Comment on above: Order Comment: Specimen Type: BLOOD SPEC IMENOrdering Facility: [facility] Address: [address] [place] [address] Performed By: #### 5 7021-8 ####[facility] [id number] [place] [address] [place] Neutrophils/100 WBC (Bld) 74.0 % Normal [facility] Comment on above: Order Comment: Specimen Type: BLOOD SPEC IMENOrdering Facility: [facility] Address: [address] [place] [address] Performed By: #### 5 7021-8 ####[facility] [id number] [place] [id number] [place] Nucleated RBC (Bld) [#/Vol] 10*3/uL Normal <0.01 [facility] Comment on above: Order Comment: Specimen Type: BLOOD SPEC IMENOrdering Facility: [facility] Address: [address] [place] [address] Performed By: #### 5 7021-8 ####[facility] [id number] [place] [address] [place] Nucleated RBC/100 WBC (Bld) [Ratio] 0.0 /100 WBC Normal [facility] Comment on above: Order Comment: Specimen Type: BLOOD SPEC IMENOrdering Facility: [facility] Address: [address] [place] [address] Performed By: #### 5 7021-8 ####[facility] [id number] [place] [address] [place] Platelet mean volume (Bld) [Entitic vol] 11.1 fL Normal 9.0-12.7 [facility] Comment on above: Order Comment: Specimen Type: BLOOD SPEC IMENOrdering Facility: [facility] Address: [address] [place] [address] Performed By: #### 5 7021-8 ####[facility] [id number] [place] [address] [place] Platelets (Bld) [#/Vol] 154 10*3/uL Normal 150-400 [facility] Comment on above: Order Comment: Specimen Type: BLOOD SPEC IMENOrdering Facility: [facility] Address: [address] [place] [address] Performed By: #### 5 7021-8 ####[facility] [id number] [place] [address] [place] RBC (Bld) [#/Vol] 4.39 10*6/uL Normal 3.90-5.20 [facility] Comment on above: Order Comment: Specimen Type: BLOOD SPEC IMENOrdering Facility: [facility] Address: [address] [place] [address] Performed By: #### 5 7021-8 ####[facility] [id number] [place] [address] [place] WBC (Bld) [#/Vol] 7.48 10*3/uL Normal 3.70-11.00 [facility] Comment on above: Order Comment: Specimen Type: BLOOD SPEC IMENOrdering Facility: [facility] Address: [address] [place] [address] Performed By: #### 5 7021-8 ####[facility] [id number] [place] [id number] [place] Basic metabolic 2000 panelon 03-03-2024 Anion gap [Moles/Vol] 12 mmol/L Normal 9-18 [facility] Comment on above: Order Comment: Specimen Type: BLOOD SPEC IMENOrdering Facility: [facility] Address: [address] [place] [address] Performed By: #### 2 4321-2 ####[facility] [id number] [place] [address] [place] Calcium [Mass/Vol] 8.6 mg/dL Normal 8.5-10.2 [facility] Comment on above: Order Comment: Specimen Type: BLOOD SPEC IMENOrdering Facility: [facility] Address: [address] [place] [address] Performed By: #### 2 4321-2 ####[facility] [id number] [place] [address] [place] Chloride [Moles/Vol] 100 mmol/L Normal 97-105 [facility] Comment on above: Order Comment: Specimen Type: BLOOD SPEC IMENOrdering Facility: [facility] Address: [address] [place] [address] Performed By: #### 2 4321-2 ####[facility] [id number] [place] [id number] [place] CO2 [Moles/Vol] 26 mmol/L Normal 22-30 [facility] Comment on above: Order Comment: Specimen Type: BLOOD SPEC IMENOrdering Facility: [facility] Address: [address] [place] [address] Performed By: #### 2 4321-2 ####[facility] [id number] [place] [id number] [place] Creatinine [Mass/Vol] 0.89 mg/dL Normal 0.58-0.96 [facility] Comment on above: Order Comment: Specimen Type: BLOOD SPEC IMENOrdering Facility: [facility] Address: [address] [place] [address] Performed By: #### 2 4321-2 ####[facility] [id number] [place] [address] [place] Creatinine and Glomerular filtration rate.predicted panel (S/P/Bld) 72 mL/min/1.73m??? Normal >=60 [facility] Comment on above: Order Comment: Specimen Type: BLOOD SPEC IMENOrdering Facility: [facility] Address: [address] [place] [address] Result Comment: Lani mated Glomerular Filtration Rate [...] actual GFR. Performed By: #### 2 4321-2 ####[facility] [id number] [place] [address] [place] Glucose [Mass/Vol] 129 mg/dL High 74-99 [facility] Comment on above: Order Comment: Specimen Type: BLOOD SPEC IMENOrdering Facility: [facility] Address: [address] [place] [address] Result Comment: The [employer] (ADA) provides guidance for cutoff [...] Standards of Medical Care in Diabetes 2016, [employer]. Diabetes Care. 2016.39(Suppl 1). Performed By: #### 2 4321-2 ####[facility] [id number] [place] [address] [place] Potassium [Moles/Vol] 4.3 mmol/L Normal 3.7-5.1 [facility] Comment on above: Order Comment: Specimen Type: BLOOD SPEC IMENOrdering Facility: [facility] Address: [address] [place] [address] Performed By: #### 2 4321-2 ####[facility] [id number] [place] [address] [place] Sodium [Moles/Vol] 138 mmol/L Normal 136-144 [facility] Comment on above: Order Comment: Specimen Type: BLOOD SPEC IMENOrdering Facility: [facility] Address: [address] [place] [address] Performed By: #### 2 4321-2 ####[facility] [id number] [place] [address] [place] Urea nitrogen [Mass/Vol] 15 mg/dL Normal 7-21 [facility] Comment on above: Order Comment: Specimen Type: BLOOD SPEC IMENOrdering Facility: [facility] Address: [address] [place] [address] Performed By: #### 2 4321-2 ####[facility] [id number] [place] [address] [place] CBC W Auto Differential pane l (Bld)on 03-03-2024 Basophils (Bld) [#/Vol] 10*3/uL Normal <0.11 [facility] Comment on above: Order Comment: Specimen Type: BLOOD SPEC IMENOrdering Facility: [facility] Address: [address] [place] [address] Performed By: #### 5 7021-8 ####[facility] [id number] [place] [address] [place] Basophils/100 WBC (Bld) 0.1 % Normal [facility] Comment on above: Order Comment: Specimen Type: BLOOD SPEC IMENOrdering Facility: [facility] Address: [address] [place] [address] Performed By: #### 5 7021-8 ####[facility] [id number] [place] [address] [place] Differential cell count method Nom (Bld) Auto Normal [facility] Comment on above: Order Comment: Specimen Type: BLOOD SPEC IMENOrdering Facility: [facility] Address: [address] [place] [address] Performed By: #### 5 7021-8 ####[facility] [id number] [place] [address] [place] Eosinophils (Bld) [#/Vol] 10*3/uL Normal <0.46 [facility] Comment on above: Order Comment: Specimen Type: BLOOD SPEC IMENOrdering Facility: [facility] Address: [address] [place] [address] Performed By: #### 5 7021-8 ####[facility] [id number] [place] [address] [place] Eosinophils/100 WBC (Bld) 0.0 % Normal [facility] Comment on above: Order Comment: Specimen Type: BLOOD SPEC IMENOrdering Facility: [facility] Address: [address] [place] [address] Performed By: #### 5 7021-8 ####[facility] [id number] [place] [id number] [place] Erythrocyte distribution width (RBC) [Ratio] 14.1 % Normal 11.5-15.0 [facility] Comment on above: Order Comment: Specimen Type: BLOOD SPEC IMENOrdering Facility: [facility] Address: [address] [place] [address] Performed By: #### 5 7021-8 ####[facility] [id number] [place] [address] [place] Hematocrit (Bld) [Volume fraction] 37.2 % Normal 36.0-46.0 [facility] Comment on above: Order Comment: Specimen Type: BLOOD SPEC IMENOrdering Facility: [facility] Address: [address] [place] [address] Performed By: #### 5 7021-8 ####[facility] [id number] [place] [address] [place] Hemoglobin (Bld) [Mass/Vol] 12.0 g/dL Normal 11.5-15.5 [facility] Comment on above: Order Comment: Specimen Type: BLOOD SPEC IMENOrdering Facility: [facility] Address: [address] [place] [address] Performed By: #### 5 7021-8 ####[facility] [id number] [place] [address] [place] Immature granulocytes (Bld) [#/Vol] 0.03 10*3/uL Normal <0.10 [facility] Comment on above: Order Comment: Specimen Type: BLOOD SPEC IMENOrdering Facility: [facility] Address: [address] [place] [address] Performed By: #### 5 7021-8 ####[facility] [id number] [place] [address] [place] Immature granulocytes/100 WBC (Bld) 0.3 % Normal [facility] Comment on above: Order Comment: Specimen Type: BLOOD SPEC IMENOrdering Facility: [facility] Address: [address] [place] [address] Performed By: #### 5 7021-8 ####[facility] [id number] [place] [address] [place] Lymphocytes (Bld) [#/Vol] 0.46 10*3/uL Low 1.00-4.00 [facility] Comment on above: Order Comment: Specimen Type: BLOOD SPEC IMENOrdering Facility: [facility] Address: [address] [place] [address] Performed By: #### 5 7021-8 ####[facility] [id number] [place] [address] [place] Lymphocytes/100 WBC (Bld) 5.3 % Normal [facility] Comment on above: Order Comment: Specimen Type: BLOOD SPEC IMENOrdering Facility: [facility] Address: [address] [place] [address] Performed By: #### 5 7021-8 ####[facility] [id number] [place] [address] [place] MCH (RBC) [Entitic mass] 29.6 pg Normal 26.0-34.0 [facility] Comment on above: Order Comment: Specimen Type: BLOOD SPEC IMENOrdering Facility: [facility] Address: [address] [place] [address] Performed By: #### 5 7021-8 ####[facility] [id number] [place] [address] [place] MCHC (RBC) [Mass/Vol] 32.3 g/dL Normal 30.5-36.0 [facility] Comment on above: Order Comment: Specimen Type: BLOOD SPEC IMENOrdering Facility: [facility] Address: [address] [place] [address] Performed By: #### 5 7021-8 ####[facility] [id number] [place] [address] [place] MCV (RBC) [Entitic vol] 91.9 fL Normal 80.0-100.0 [facility] Comment on above: Order Comment: Specimen Type: BLOOD SPEC IMENOrdering Facility: [facility] Address: [address] [place] [address] Performed By: #### 5 7021-8 ####[facility] [id number] [place] [address] [place] Monocytes (Bld) [#/Vol] 1.03 10*3/uL High <0.87 [facility] Comment on above: Order Comment: Specimen Type: BLOOD SPEC IMENOrdering Facility: [facility] Address: [address] [place] [address] Performed By: #### 5 7021-8 ####[facility] [id number] [place] [address] [place] Monocytes/100 WBC (Bld) 11.9 % Normal [facility] Comment on above: Order Comment: Specimen Type: BLOOD SPEC IMENOrdering Facility: [facility] Address: [address] [place] [address] Performed By: #### 5 7021-8 ####[facility] [id number] [place] [address] [place] Neutrophils (Bld) [#/Vol] 7.10 10*3/uL Normal 1.45-7.50 [facility] Comment on above: Order Comment: Specimen Type: BLOOD SPEC IMENOrdering Facility: [facility] Address: [address] [place] [address] Performed By: #### 5 7021-8 ####[facility] [id number] [place] [address] [place] Neutrophils/100 WBC (Bld) 82.4 % Normal [facility] Comment on above: Order Comment: Specimen Type: BLOOD SPEC IMENOrdering Facility: [facility] Address: [address] [place] [address] Performed By: #### 5 7021-8 ####[facility] [id number] [place] [address] [place] Nucleated RBC (Bld) [#/Vol] 10*3/uL Normal <0.01 [facility] Comment on above: Order Comment: Specimen Type: BLOOD SPEC IMENOrdering Facility: [facility] Address: [address] [place] [address] Performed By: #### 5 7021-8 ####[facility] [id number] [place] [address] [place] Nucleated RBC/100 WBC (Bld) [Ratio] 0.0 /100 WBC Normal [facility] Comment on above: Order Comment: Specimen Type: BLOOD SPEC IMENOrdering Facility: [facility] Address: [address] [place] [address] Performed By: #### 5 7021-8 ####[facility] [id number] [place] [address] [place] Platelet mean volume (Bld) [Entitic vol] 11.8 fL Normal 9.0-12.7 [facility] Comment on above: Order Comment: Specimen Type: BLOOD SPEC IMENOrdering Facility: [facility] Address: [address] [place] [address] Performed By: #### 5 7021-8 ####[facility] [id number] [place] [address] [place] Platelets (Bld) [#/Vol] 188 10*3/uL Normal 150-400 [facility] Comment on above: Order Comment: Specimen Type: BLOOD SPEC IMENOrdering Facility: [facility] Address: [address] [place] [address] Performed By: #### 5 7021-8 ####[facility] [id number] [place] [address] [place] RBC (Bld) [#/Vol] 4.05 10*6/uL Normal 3.90-5.20 [facility] Comment on above: Order Comment: Specimen Type: BLOOD SPEC IMENOrdering Facility: [facility] Address: [address] [place] [address] Performed By: #### 5 7021-8 ####[facility] [id number] [place] [address] [place] WBC (Bld) [#/Vol] 8.63 10*3/uL Normal 3.70-11.00 [facility] Comment on above: Order Comment: Specimen Type: BLOOD SPEC IMENOrdering Facility: [facility] Address: [address] [place] [address] Performed By: #### 5 7021-8 ####[facility] [id number] [place] [address] [place] NUTRITIONon 03-03-2024 NUTRITION HNO ID: [id number] Author: SUSAN RUTLEDGE RD Service: Nutrition Therapy [...] Medical condition, Patient/family self-report Estimated kilocalorie needs: [id number] Calorie Calculation Method: 25-30 kcals/kg Estimated protein [...] necessary the HPI obtained by Tavia Montiel APRN.PNEUMATIC JACK OPERATOR on 02/19/24 and all reflect current status. [...] - Discussed ONS. Pt agreeable to trying [employer] BID w/ breakfast and dinner for additional nutrition support. Intake History: Nutrition Intake Prior to Admission: Less than 75% estimated energy needs greater than or equal to 1 month Diet Orders (From admission, onward) Start Ordered 03/02/24 1830 DIET LIQUID START NOW Question: Liquid Diet Answer: CLEAR LIQUID 03/02/24 1816 Anthropometrics: Dosing Weight: 60.6 kg (133 lb [...] March 03, 2024 TIME: 2:34 PM Normal [facility] ANES POSTPROC EVALon 024 ANES POSTPROC EVAL HNO ID: [id number] Author: AZALEA SERRA MD Service: ? Author Type: Anesthesiologist Type: Anesthesia Postprocedure Evaluation Filed: 03/02/2024 16:56 Note Text: POST ANESTHESIA EVALUATION NOTE : 1955 Procedure Summary Date: 03/02/24 Room / Location: [address] [facility] Anesthesia Start: 728 Anesthesia Stop: 1456 Procedure: [...] March 02, 2024 TIME: 4:55 PM CSN: [id number] Normal [facility] ANES PRE-OPon 03-02-2024 ANES PRE-OP HNO ID: [id number] Author: AZALEA SERRA MD Service: ? Author [...] and consent discussed: yes. Patient / Responsible [employer] agrees to proceed: yes Patient / [...] (FLONASE) 50 mcg/actuation nasal spray Use 1 [place] in the nose as needed for cold/allergy [...] March 02, 2024 TIME: 7:21 AM CSN: [id number] Normal [facility] BRIEF OP NOTon 03-02-2024 BRIEF OP NOT HNO ID: [id number] Author: CRUZ CHAPMAN MD Service: Urology Author Type: Physician Type: Brief Op Note Filed: 03/02/2024 14:03 Note Text: BRIEF OPERATIVE / PROCEDURE NOTE LOG ID: [id number] SURGERY/PROCEDURE DATE: 03/02/2024 INCISION/PROCEDURE START TIME: 8:48 AM INCISION CLOSE/PROCEDURE END TIME: 1410 SURGEON(S)/PROCEDURALIST(S) AND SUPERVISOR INSPECTION(S): Surgeon(s) and Role: * Chip Carr MD [...] March 02, 2024 TIME: 2:01 PM Normal [facility] CBC W Auto Differential pane l (Bld)on 03-02-2024 Basophils (Bld) [#/Vol] 10*3/uL Normal <0.11 [facility] Comment on above: Order Comment: Specimen Type: BLOOD SPEC IMENOrdering Facility: [facility] Address: [address] [place] [address] Performed By: #### 5 7021-8 ####[facility] [id number] [place] [address] [place] Basophils/100 WBC (Bld) 0.2 % Normal [facility] Comment on above: Order Comment: Specimen Type: BLOOD SPEC IMENOrdering Facility: [facility] Address: [address] [place] [address] Performed By: #### 5 7021-8 ####[facility] [id number] [place] [address] [place] Differential cell count method Nom (Bld) Auto Normal [facility] Comment on above: Order Comment: Specimen Type: BLOOD SPEC IMENOrdering Facility: [facility] Address: [address] [place] [address] Performed By: #### 5 7021-8 ####[facility] [id number] [place] [address] [place] Eosinophils (Bld) [#/Vol] 10*3/uL Normal <0.46 [facility] Comment on above: Order Comment: Specimen Type: BLOOD SPEC IMENOrdering Facility: [facility] Address: [address] [place] [address] Performed By: #### 5 7021-8 ####[facility] [id number] [place] [address] [place] Eosinophils/100 WBC (Bld) 0.1 % Normal [facility] Comment on above: Order Comment: Specimen Type: BLOOD SPEC IMENOrdering Facility: [facility] Address: [address] [place] [address] Performed By: #### 5 7021-8 ####[facility] [id number] [place] [address] [place] Erythrocyte distribution width (RBC) [Ratio] 13.9 % Normal 11.5-15.0 [facility] Comment on above: Order Comment: Specimen Type: BLOOD SPEC IMENOrdering Facility: [facility] Address: [address] [place] [address] Performed By: #### 5 7021-8 ####[facility] [id number] [place] [address] [place] Hematocrit (Bld) [Volume fraction] 38.1 % Normal 36.0-46.0 [facility] Comment on above: Order Comment: Specimen Type: BLOOD SPEC IMENOrdering Facility: [facility] Address: [address] [place] [address] Performed By: #### 5 7021-8 ####[facility] [id number] [place] [address] [place] Hemoglobin (Bld) [Mass/Vol] 12.6 g/dL Normal 11.5-15.5 [facility] Comment on above: Order Comment: Specimen Type: BLOOD SPEC IMENOrdering Facility: [facility] Address: [address] [place] [address] Performed By: #### 5 7021-8 ####[facility] LABCLIA [id number] [place] [address] [place] Immature granulocytes (Bld) [#/Vol] 0.08 10*3/uL Normal <0.10 [facility] Comment on above: Order Comment: Specimen Type: BLOOD SPEC IMENOrdering Facility: [facility] Address: [address] [place] [address] Performed By: #### 5 7021-8 ####[facility]CL[facility] [id number] [place] [address] [place] Immature granulocytes/100 WBC (Bld) 0.7 % Normal [facility] Comment on above: Order Comment: Specimen Type: BLOOD SPEC IMENOrdering Facility: [facility] Address: [address] [place] [address] Performed By: #### 5 7021-8 ####[facility] LABCLIA [id number] [place] [address] [place] Lymphocytes (Bld) [#/Vol] 0.56 10*3/uL Low 1.00-4.00 [facility] Comment on above: Order Comment: Specimen Type: BLOOD SPEC IMENOrdering Facility: [facility] Address: [address] [place] [address] Performed By: #### 5 7021-8 ####[facility]CL[facility] [id number] [place] [address] [place] Lymphocytes/100 WBC (Bld) 4.6 % Normal [facility] Comment on above: Order Comment: Specimen Type: BLOOD SPEC IMENOrdering Facility: [facility] Address: [address] [place] [address] Performed By: #### 5 7021-8 ####[facility] LABIA [id number] [place] [address] [place] MCH (RBC) [Entitic mass] 29.2 pg Normal 26.0-34.0 [facility] Comment on above: Order Comment: Specimen Type: BLOOD SPEC IMENOrdering Facility: [facility] Address: [address] [place] [address] Performed By: #### 5 7021-8 ####[facility] LABIA [id number] [place] [address] [place] MCHC (RBC) [Mass/Vol] 33.1 g/dL Normal 30.5-36.0 [facility] Comment on above: Order Comment: Specimen Type: BLOOD SPEC IMENOrdering Facility: [facility] Address: [address] [place] [address] Performed By: #### 5 7021-8 ####[facility] [id number] [place] [address] [place] MCV (RBC) [Entitic vol] 88.2 fL Normal 80.0-100.0 [facility] Comment on above: Order Comment: Specimen Type: BLOOD SPEC IMENOrdering Facility: [facility] Address: [address] [place] [address] Performed By: #### 5 7021-8 ####[facility] LABIA [id number] [place] [address] [place] Monocytes (Bld) [#/Vol] 0.53 10*3/uL Normal <0.87 [facility] Comment on above: Order Comment: Specimen Type: BLOOD SPEC IMENOrdering Facility: [facility] Address: [address] [place] [address] Performed By: #### 5 7021-8 ####[facility] LABIA [id number] [id number] [address] [place] Monocytes/100 WBC (Bld) 4.3 % Normal [facility] Comment on above: Order Comment: Specimen Type: BLOOD SPEC IMENOrdering Facility: [facility] Address: [address] [place] [address] Performed By: #### 5 7021-8 ####[facility]CL[facility] [id number] [place] [address] [place] Neutrophils (Bld) [#/Vol] 11.08 10*3/uL High 1.45-7.50 [facility] Comment on above: Order Comment: Specimen Type: BLOOD SPEC IMENOrdering Facility: [facility] Address: [address] [place] [address] Performed By: #### 5 7021-8 ####[facility]CL[facility] [id number] [place] [address] [place] Neutrophils/100 WBC (Bld) 90.1 % Normal [facility] Comment on above: Order Comment: Specimen Type: BLOOD SPEC IMENOrdering Facility: [facility] Address: [address] [place] [address] Performed By: #### 5 7021-8 ####[facility]CLIA [id number] [place] [address] [place] Nucleated RBC (Bld) [#/Vol] 10*3/uL Normal <0.01 [facility] Comment on above: Order Comment: Specimen Type: BLOOD SPEC IMENOrdering Facility: [facility] Address: [address] [place] [address] Performed By: #### 5 7021-8 ####[facility]CL[facility] [id number] [place] [address] [place] Nucleated RBC/100 WBC (Bld) [Ratio] 0.0 /100 WBC Normal [facility] Comment on above: Order Comment: Specimen Type: BLOOD SPEC IMENOrdering Facility: [facility] Address: [address] [id number] Performed By: #### 5 7021-8 ####[facility]CLIA [id number] [address] [address] [place] Platelet mean volume (Bld) [Entitic vol] 11.7 fL Normal 9.0-12.7 [facility] Comment on above: Order Comment: Specimen Type: BLOOD SPEC IMENOrdering Facility: [facility] Address: [address] [place] [address] Performed By: #### 5 7021-8 ####[facility]CL[facility] [id number] [place] [address] [place] Platelets (Bld) [#/Vol] 210 10*3/uL Normal 150-400 [facility] Comment on above: Order Comment: Specimen Type: BLOOD SPEC IMENOrdering Facility: [facility] Address: [address] [place] [address] Performed By: #### 5 7021-8 ####[facility]CLIA [id number] [place] [address] [place] RBC (Bld) [#/Vol] 4.32 10*6/uL Normal 3.90-5.20 [facility] Comment on above: Order Comment: Specimen Type: BLOOD SPEC IMENOrdering Facility: [facility] Address: [address] [place] [address] Performed By: #### 5 7021-8 ####[facility]CL[facility] [id number] [address] [address] [place] WBC (Bld) [#/Vol] 12.28 10*3/uL High 3.70-11.00 [facility] Comment on above: Order Comment: Specimen Type: BLOOD SPEC IMENOrdering Facility: [facility] Address: [address] [place] [address] Performed By: #### 5 7021-8 ####[facility]CL[facility] [id number] [place] [address] [place] Comprehensive metabolic 2000 panelon 03-02-2024 Albumin [Mass/Vol] 3.7 g/dL Low 3.9-4.9 [facility] Comment on above: Order Comment: Specimen Type: BLOOD SPEC IMENOrdering Facility: [facility] Address: [address] [place] [address] Performed By: #### 2 4323-8 ####[facility]CL[facility] [id number] [place] [address] [place] ALP [Catalytic activity/Vol] 55 U/L Normal 34-123 [facility] Comment on above: Order Comment: Specimen Type: BLOOD SPEC IMENOrdering Facility: [facility] Address: [address] [place] [address] Performed By: #### 2 4323-8 ####[facility]CL[facility] [id number] [place] [address] [place] ALT [Catalytic activity/Vol] 13 U/L Normal 7-38 [facility] Comment on above: Order Comment: Specimen Type: BLOOD SPEC IMENOrdering Facility: [facility] Address: [address] [place] [address] Performed By: #### 2 4323-8 ####[facility]CL[facility] [id number] [place] [address] [place] Anion gap [Moles/Vol] 10 mmol/L Normal 9-18 [facility] Comment on above: Order Comment: Specimen Type: BLOOD SPEC IMENOrdering Facility: [facility] Address: [address] [place] [address] Performed By: #### 2 4323-8 ####[facility]CL[facility] [id number] [place] [address] [place] AST [Catalytic activity/Vol] 20 U/L Normal 13-35 [facility] Comment on above: Order Comment: Specimen Type: BLOOD SPEC IMENOrdering Facility: [facility] Address: [address] [place] [address] Performed By: #### 2 4323-8 ####[facility]CL[facility] [id number] [place] [address] [place] Bilirubin [Mass/Vol] 0.4 mg/dL Normal 0.2-1.3 [facility] Comment on above: Order Comment: Specimen Type: BLOOD SPEC IMENOrdering Facility: [facility] Address: [address] [place] [address] Performed By: #### 2 4323-8 ####[facility]CLIA [id number] [place] [address] [place] Calcium [Mass/Vol] 8.6 mg/dL Normal 8.5-10.2 [facility] Comment on above: Order Comment: Specimen Type: BLOOD SPEC IMENOrdering Facility: [facility] Address: [address] [place] [address] Performed By: #### 2 4323-8 ####[facility]CLIA [id number] [place] [address] [place] Chloride [Moles/Vol] 107 mmol/L High 97-105 [facility] Comment on above: Order Comment: Specimen Type: BLOOD SPEC IMENOrdering Facility: [facility] Address: [address] [place] [address] Performed By: #### 2 4323-8 ####[facility]CLIA [id number] [place] [address] [place] CO2 [Moles/Vol] 24 mmol/L Normal 22-30 [facility] Comment on above: Order Comment: Specimen Type: BLOOD SPEC IMENOrdering Facility: [facility] Address: [address] [place] [address] Performed By: #### 2 4323-8 ####[facility]CL[facility] [id number] [address] [place] Creatinine [Mass/Vol] 0.86 mg/dL Normal 0.58-0.96 [facility] Comment on above: Order Comment: Specimen Type: BLOOD SPEC IMENOrdering Facility: [facility] Address: [address] [place] [address] Performed By: #### 2 4323-8 ####[facility]CL[facility] [id number] [place] [address] [place] Creatinine and Glomerular filtration rate.predicted panel (S/P/Bld) 75 mL/min/1.73m??? Normal >=60 [facility] Comment on above: Order Comment: Specimen Type: BLOOD SPEC IMENOrdering Facility: [facility] Address: [address] [place] [address] Result Comment: Lani mated Glomerular Filtration Rate [...] actual GFR. Performed By: #### 2 4323-8 ####[facility]CL[facility] [id number] [place] [address] [place] Glucose [Mass/Vol] 192 mg/dL High 74-99 [facility] Comment on above: Order Comment: Specimen Type: BLOOD SPEC IMENOrdering Facility: [facility] Address: [address] [place] [address] Result Comment: The [employer] Diabetes Association (ADA) provides guidance for cutoff [...] Standards of Medical Care in Diabetes 2016, [employer]. Diabetes Care. 2016.39(Suppl 1). Performed By: #### 2 4323-8 ####[facility]CL[facility] [id number] [address] [address] [place] Potassium [Moles/Vol] 4.5 mmol/L Normal 3.7-5.1 [facility] Comment on above: Order Comment: Specimen Type: BLOOD SPEC IMENOrdering Facility: [facility] Address: [address] [place] [address] Performed By: #### 2 4323-8 ####[facility]CL[facility] [id number] [place] [address] [place] Protein [Mass/Vol] 5.9 g/dL Low 6.3-8.0 [facility] Comment on above: Order Comment: Specimen Type: BLOOD SPEC IMENOrdering Facility: [facility] Address: [address] [place] [address] Performed By: #### 2 4323-8 ####[facility]CL[facility] [id number] [place] [address] [place] Sodium [Moles/Vol] 141 mmol/L Normal 136-144 [facility] Comment on above: Order Comment: Specimen Type: BLOOD SPEC IMENOrdering Facility: [facility] Address: [address] [place] [address] Performed By: #### 2 4323-8 ####[facility] LABCLIA [id number] [place] [id number] [place] Urea nitrogen [Mass/Vol] 13 mg/dL Normal 7-21 [facility] Comment on above: Order Comment: Specimen Type: BLOOD SPEC IMENOrdering Facility: [facility] Address: [address] [id number] Performed By: #### 2 4323-8 ####[facility] LABAAYUSH [id number] [place] [id number] [place] OPERATIVE NOon 03-02-2024 OPERATIVE NO HNO ID: [id number] Author: CHIP CARR MD Service: Urology Author Type: Physician Type: Operative Report Filed: 03/10/2024 16:26 Note Text: Attestation signed by Chip Carr MD at 03/10/2024 4:26 PM Agree with the details as outlined be the resident/ fellow Chip Carr MD UROLOGY OPERATIVE REPORT LOG ID: [id number] Surgery/Procedure Date: 03/02/2024 Incision/Procedure Start Time: 8:48 AM Incision Close/Procedure End Time: 1410 Surgeon(s)/Proceduralist(s) and Enterprise Business Architect(s): Surgeon(s) and Role: * Chip Carr MD [...] mls SPECIMENS: Left ureter IMPLANTABLE DEVICES: 4.7 guatemalan x 14cm JJ left stent DRAINS: 1) LLQ RAMON drain 2) 18 guatemalan kirk catheter COMPLICATIONS: None Findings: 1) 1 [...] kidney was then defatted with preservation of lezbieta-ureteral tissue. Hilar fat was ligated with silk [...] the e (more content not included)... Normal [facility] OPERATIVE NO HNO ID: [id number] Author: PARAMJIT DANIELLE MD Service: Urology Author Type: Physician Type: Operative Report Filed: 03/04/2024 08:31 Note Text: UROLOGY OPERATIVE REPORT LOG ID: [id number] Surgery/Procedure Date: 03/02/2024 Incision/Procedure Start Time: 8:48 AM Incision Close/Procedure End Time: 1410 Surgeon(s)/Proceduralist(s) and Enterprise Business Architect(s): Surgeon(s) and Role: * Chip Carr MD [...] mls SPECIMENS: Left ureter IMPLANTABLE DEVICES: 4.7 guatemalan x 14cm JJ left stent DRAINS: 1) 18 guatemalan kirk catheter COMPLICATIONS: None Findings: 1) 1 [...] in an air docking fashion. A 12mm field research assistant port was placed under direct vision [...] loop w (more content not included)... Normal [facility] CBC W Auto Differential pane l (Bld)on 02-19-2024 Basophils (Bld) [#/Vol] 0.04 10*3/uL Normal <0.11 [facility] Comment on above: Order Comment: Specimen Type: BLOOD SPEC IMENOrdering Facility: [facility] Address: [address] [place] [address] Performed By: #### 5 7021-8 ####[facility] LABIA [id number] [address] [address] [address] [place] Basophils/100 WBC (Bld) 0.8 % Normal [facility] Comment on above: Order Comment: Specimen Type: BLOOD SPEC IMENOrdering Facility: [facility] Address: [address] [place] [address] Performed By: #### 5 7021-8 ####[facility]CL[facility] [id number] [place] [address] [place] Differential cell count method Nom (Bld) Auto Normal [facility] Comment on above: Order Comment: Specimen Type: BLOOD SPEC IMENOrdering Facility: [facility] Address: [address] [place] [address] Performed By: #### 5 7021-8 ####[facility]CL[facility] [id number] [place] [address] [place] Eosinophils (Bld) [#/Vol] 0.10 10*3/uL Normal <0.46 [facility] Comment on above: Order Comment: Specimen Type: BLOOD SPEC IMENOrdering Facility: [facility] Address: [address] [place] [address] Performed By: #### 5 7021-8 ####[facility] LABCL[facility] [id number] [place] [address] [place] Eosinophils/100 WBC (Bld) 1.9 % Normal [facility] Comment on above: Order Comment: Specimen Type: BLOOD SPEC IMENOrdering Facility: [facility] Address: [address] [place] [address] Performed By: #### 5 7021-8 ####[facility]CL[facility] [id number] [place] [address] [place] Erythrocyte distribution width (RBC) [Ratio] 13.6 % Normal 11.5-15.0 [facility] Comment on above: Order Comment: Specimen Type: BLOOD SPEC IMENOrdering Facility: [facility] Address: [address] [place] [address] Performed By: #### 5 7021-8 ####[facility]CL[facility] [id number] [place] [address] [place] Hematocrit (Bld) [Volume fraction] 42.7 % Normal 36.0-46.0 [facility] Comment on above: Order Comment: Specimen Type: BLOOD SPEC IMENOrdering Facility: [facility] Address: [address] [place] [address] Performed By: #### 5 7021-8 ####[facility] LABIA [id number] [place] [address] [place] Hemoglobin (Bld) [Mass/Vol] 13.9 g/dL Normal 11.5-15.5 [facility] Comment on above: Order Comment: Specimen Type: BLOOD SPEC IMENOrdering Facility: [facility] Address: [address] [place] [address] Performed By: #### 5 7021-8 ####[facility] LABIA [id number] [place] [address] [place] Immature granulocytes (Bld) [#/Vol] 10*3/uL Normal <0.10 [facility] Comment on above: Order Comment: Specimen Type: BLOOD SPEC IMENOrdering Facility: [facility] Address: [address] [place] [address] Performed By: #### 5 7021-8 ####[facility] LABIA [id number] [place] [address] [place] Immature granulocytes/100 WBC (Bld) 0.2 % Normal [facility] Comment on above: Order Comment: Specimen Type: BLOOD SPEC IMENOrdering Facility: [facility] Address: [address] [place] [address] Performed By: #### 5 7021-8 ####[facility]CL[facility] [id number] [place] [address] [place] Lymphocytes (Bld) [#/Vol] 1.51 10*3/uL Normal 1.00-4.00 [facility] Comment on above: Order Comment: Specimen Type: BLOOD SPEC IMENOrdering Facility: [facility] Address: [address] [place] [address] Performed By: #### 5 7021-8 ####[facility] LABCLIA [id number] [place] [address] [place] Lymphocytes/100 WBC (Bld) 29.3 % Normal [facility] Comment on above: Order Comment: Specimen Type: BLOOD SPEC IMENOrdering Facility: [facility] Address: [address] [place] [address] Performed By: #### 5 7021-8 ####[facility]CL[facility] [id number] [place] [address] [place] MCH (RBC) [Entitic mass] 29.3 pg Normal 26.0-34.0 [facility] Comment on above: Order Comment: Specimen Type: BLOOD SPEC IMENOrdering Facility: [facility] Address: [address] [place] [address] Performed By: #### 5 7021-8 ####[facility] LABIA [id number] [place] [address] [place] MCHC (RBC) [Mass/Vol] 32.6 g/dL Normal 30.5-36.0 [facility] Comment on above: Order Comment: Specimen Type: BLOOD SPEC IMENOrdering Facility: [facility] Address: [address] [place] [address] Performed By: #### 5 7021-8 ####[facility] LABIA [id number] [place] [address] [place] MCV (RBC) [Entitic vol] 89.9 fL Normal 80.0-100.0 [facility] Comment on above: Order Comment: Specimen Type: BLOOD SPEC IMENOrdering Facility: [facility] Address: [address] [place] [address] Performed By: #### 5 7021-8 ####[facility]CL[facility] [id number] [place] [address] [place] Monocytes (Bld) [#/Vol] 0.77 10*3/uL Normal <0.87 [facility] Comment on above: Order Comment: Specimen Type: BLOOD SPEC IMENOrdering Facility: [facility] Address: [address] [place] [address] Performed By: #### 5 7021-8 ####[facility] LABCL[facility] [id number] [place] [address] [place] Monocytes/100 WBC (Bld) 14.9 % Normal [facility] Comment on above: Order Comment: Specimen Type: BLOOD SPEC IMENOrdering Facility: [facility] Address: [address] [place] [address] Performed By: #### 5 7021-8 ####[facility] LABCLIA [id number] [place] [address] [place] Neutrophils (Bld) [#/Vol] 2.73 10*3/uL Normal 1.45-7.50 [facility] Comment on above: Order Comment: Specimen Type: BLOOD SPEC IMENOrdering Facility: [facility] Address: [address] [place] [address] Performed By: #### 5 7021-8 ####[facility]CL[facility] [id number] [place] [address] [place] Neutrophils/100 WBC (Bld) 52.9 % Normal [facility] Comment on above: Order Comment: Specimen Type: BLOOD SPEC IMENOrdering Facility: [facility] Address: [address] [place] [address] Performed By: #### 5 7021-8 ####[facility]CL[facility] [id number] [place] [address] [place] Nucleated RBC (Bld) [#/Vol] 10*3/uL Normal <0.01 [facility] Comment on above: Order Comment: Specimen Type: BLOOD SPEC IMENOrdering Facility: [facility] Address: [address] [place] [address] Performed By: #### 5 7021-8 ####[facility]CL[facility] [id number] [place] [address] [place] Nucleated RBC/100 WBC (Bld) [Ratio] 0.0 /100 WBC Normal [facility] Comment on above: Order Comment: Specimen Type: BLOOD SPEC IMENOrdering Facility: [facility] Address: [address] [place] [address] Performed By: #### 5 7021-8 ####[facility] LABIA [id number] [place] [address] [place] Platelet mean volume (Bld) [Entitic vol] 12.2 fL Normal 9.0-12.7 [facility] Comment on above: Order Comment: Specimen Type: BLOOD SPEC IMENOrdering Facility: [facility] Address: [address] [place] [address] Performed By: #### 5 7021-8 ####[facility] LABIA [id number] [place] [address] [place] Platelets (Bld) [#/Vol] 214 10*3/uL Normal 150-400 [facility] Comment on above: Order Comment: Specimen Type: BLOOD SPEC IMENOrdering Facility: [facility] Address: [address] [place] [address] Performed By: #### 5 7021-8 ####[facility] [id number] [place] [address] [place] RBC (Bld) [#/Vol] 4.75 10*6/uL Normal 3.90-5.20 [facility] Comment on above: Order Comment: Specimen Type: BLOOD SPEC IMENOrdering Facility: [facility] Address: [address] [place] [address] Performed By: #### 5 7021-8 ####[facility] LABIA [id number] [place] [address] [place] WBC (Bld) [#/Vol] 5.16 10*3/uL Normal 3.70-11.00 [facility] Comment on above: Order Comment: Specimen Type: BLOOD SPEC IMENOrdering Facility: [facility] Address: [address] [place] [address] Performed By: #### 5 7021-8 ####[facility] LABCLIA [id number] [place] [id number] OF [place] [facility] CNOVon 02-19-2024 CNOV Office Visit (UROLMN ) ZAYNAB ZAIDI ([id number]) 1955 F Date Time Provider Department 02/19/24 [...] performed due to technical problems in the radiographer cardiac catheterization. Venous duplex US - UE 07/18/23: - [...] (FLONASE) 50 mcg/actuation nasal spray Use 1 Salem in the nose as needed for cold/allergy [...] (FLONASE) 50 mcg/actuation nasal spray Use 1 [place] in the nose as needed for cold/allergy [...] 200 mg (more content not included)... Normal [facility] CONFIRM BLOOD TYPEon 024 ABO O Normal [facility] Comment on above: Order Comment: Specimen Type: BLOOD SPEC IMENOrdering Facility: [facility] Address: [address] [place] [address] Performed By: #### C ONABO ####CC MAIN BLOOD BANKCLIA [id number] [address] [place] Rh Nom (Bld) Positive Normal [facility] Comment on above: Order Comment: Specimen Type: BLOOD SPEC IMENOrdering Facility: [facility] Address: [address] [place] [address] Performed By: #### C ONABO ####CC MAIN BLOOD BANKCLIA [id number] [place] [address] [place] Comprehensive metabolic 2000 panelon 02-19-2024 Albumin [Mass/Vol] 4.3 g/dL Normal 3.9-4.9 [facility] Comment on above: Order Comment: Specimen Type: BLOOD SPEC IMENOrdering Facility: [facility] Address: [address] [place] [address] Performed By: #### 2 4323-8 ####[facility] LABCLIA [id number] [place] [address] [place] ALP [Catalytic activity/Vol] 71 U/L Normal 34-123 [facility] Comment on above: Order Comment: Specimen Type: BLOOD SPEC IMENOrdering Facility: [facility] Address: [address] [place] [address] Performed By: #### 2 4323-8 ####[facility] LABCLIA [id number] [place] [address] [place] ALT [Catalytic activity/Vol] 12 U/L Normal 7-38 [facility] Comment on above: Order Comment: Specimen Type: BLOOD SPEC IMENOrdering Facility: [facility] Address: [address] [place] [address] Performed By: #### 2 4323-8 ####[facility] LABCLIA [id number] [place] [address] [place] Anion gap [Moles/Vol] 12 mmol/L Normal 9-18 [facility] Comment on above: Order Comment: Specimen Type: BLOOD SPEC IMENOrdering Facility: [facility] Address: [address] [place] [address] Performed By: #### 2 4323-8 ####[facility] LABCLIA [id number] [place] [address] [place] AST [Catalytic activity/Vol] 20 U/L Normal 13-35 [facility] Comment on above: Order Comment: Specimen Type: BLOOD SPEC IMENOrdering Facility: [facility] Address: [address] [place] [address] Performed By: #### 2 4323-8 ####[facility] LABCLIA [id number] [place] [address] [place] Bilirubin [Mass/Vol] 0.7 mg/dL Normal 0.2-1.3 [facility] Comment on above: Order Comment: Specimen Type: BLOOD SPEC IMENOrdering Facility: [facility] Address: [address] [place] [address] Performed By: #### 2 4323-8 ####[facility] LABCLIA [id number] [place] [address] [place] Calcium [Mass/Vol] 10.1 mg/dL Normal 8.5-10.2 [facility] Comment on above: Order Comment: Specimen Type: BLOOD SPEC IMENOrdering Facility: [facility] Address: [address] [place] [address] Performed By: #### 2 4323-8 ####[facility] LABCLIA [id number] [place] [address] [place] Chloride [Moles/Vol] 102 mmol/L Normal 97-105 [facility] Comment on above: Order Comment: Specimen Type: BLOOD SPEC IMENOrdering Facility: [facility] Address: [address] [place] [address] Performed By: #### 2 4323-8 ####[facility] LABCLIA [id number] [place] [address] [place] CO2 [Moles/Vol] 28 mmol/L Normal 22-30 [facility] Comment on above: Order Comment: Specimen Type: BLOOD SPEC IMENOrdering Facility: [facility] Address: [address] [place] [address] Performed By: #### 2 4323-8 ####[facility] LABCLIA [id number] [place] [address] [place] Creatinine [Mass/Vol] 0.81 mg/dL Normal 0.58-0.96 [facility] Comment on above: Order Comment: Specimen Type: BLOOD SPEC IMENOrdering Facility: [facility] Address: [address] [place] [address] Performed By: #### 2 4323-8 ####[facility] LABCLIA [id number] [place] [address] [place] Creatinine and Glomerular filtration rate.predicted panel (S/P/Bld) 80 mL/min/1.73m??? Normal >=60 [facility] Comment on above: Order Comment: Specimen Type: BLOOD SPEC IMENOrdering Facility: [facility] Address: [address] [place] [address] Result Comment: Lani mated Glomerular Filtration Rate [...] actual GFR. Performed By: #### 2 4323-8 ####[facility] LABCLIA [id number] [place] [address] [place] Glucose [Mass/Vol] 73 mg/dL Low 74-99 [facility] Comment on above: Order Comment: Specimen Type: BLOOD SPEC IMENOrdering Facility: [facility] Address: [address] [place] [address] Result Comment: The [employer] Diabetes Association (ADA) provides guidance for cutoff [...] Standards of Medical Care in Diabetes 2016, [employer] Diabetes Association. Diabetes Care. 2016.39(Suppl 1). Performed By: #### 2 4323-8 ####[facility] LABCLIA [id number] [place] [address] [place] Potassium [Moles/Vol] 4.5 mmol/L Normal 3.7-5.1 [facility] Comment on above: Order Comment: Specimen Type: BLOOD SPEC IMENOrdering Facility: [facility] Address: [address] [place] [address] Performed By: #### 2 4323-8 ####[facility] LABIA [id number] [place] [address] [place] Protein [Mass/Vol] 7.0 g/dL Normal 6.3-8.0 [facility] Comment on above: Order Comment: Specimen Type: BLOOD SPEC IMENOrdering Facility: [facility] Address: [address] [place] [address] Performed By: #### 2 4323-8 ####[facility] LABIA [id number] [place] [address] [place] Sodium [Moles/Vol] 142 mmol/L Normal 136-144 [facility] Comment on above: Order Comment: Specimen Type: BLOOD SPEC IMENOrdering Facility: [facility] Address: [address] [place] [address] Performed By: #### 2 4323-8 ####[facility] LABCLIA [id number] [place] [id number] [place] Urea nitrogen [Mass/Vol] 22 mg/dL High 7-21 [facility] Comment on above: Order Comment: Specimen Type: BLOOD SPEC IMENOrdering Facility: [facility] Address: [address] [place] [address] Performed By: #### 2 4323-8 ####[facility] LABCLIA [id number] [address] [place] [address] [place] ECG COMPLETEon 02-19-2024 ECG COMPLETE Ventricular Rate : 5 4 BPM Atrial Rate : 54 BPM P-R Interval : 130 ms QRS Duration : 90 ms Q-T Interval : 462 ms QTC Calculation(Bazett) : 438 ms Calculated P [place] : 21 degrees Calculated R [place] : 68 degrees Calculated T [place] : 69 degrees SINUS BRADYCARDIA OTHERWISE NORMAL ECG Confirmed by FEROZ DELANEY MD ([id number]) on 02/22/2024 4:29:03 PM NAME : ZAYNAB ZAIDI PID : [id number] : 1955 Gender : Female Race : ORD : [id number] Procedure Date : Feb 19 2024 13:54:22 Edit Date : Feb 22 2024 16:29:06 Diagnosis: SINUS BRADYCARDIA OTHERWISE NORMAL ECG Confirmed by FEROZ DELANEY MD ([id number]) on 02/22/2024 4:29:03 PM Test Reason : Location : 119 : A17 A17 Overread By : FEROZ DELANEY MD Edited By : FEROZ DELANEY MD Referred By : , Acquired by : TYLER TAMAYO [facility] HISTORY PHYSICALon HISTORY PHYSICAL HNO ID: [id number] Author: TAVIA MONTIEL APRN.PNEUMATIC JACK OPERATOR Service: ? 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 Negative for: ADVERTISING ACCOUNT REPRESENTATIVE tumor, delirium, dementia, headaches, multiple sclerosis, seizures, TIA and strokes. Respiratory: Allergies - singulair +lung nodule - routine surveillance Negative for: COPD, current cough, dyspnea, home oxygen, pneumonia within 6 weeks, tobacco use, URI < 2 weeks and obstruct (more content not included)... Normal [facility] PT panel Coag (PPP)on 2023 INR Coag (PPP) [Relative time] 1.0 {INR} Normal 0.9-1.3 [facility] Comment on above: Order Comment: Specimen Type: BLOOD SPEC IMENOrdering Facility: [facility] Address: [address] [place] [address] Result Comment: Miriam min K Antagonist (VKA) Therapeutic Range: INR 2 to 3 (Target INR of 2.5) Note: For patients treated with VKA drugs, such as warfarin, the [employer] College [employer] 2012 Guideline recommends [...] 2.5 to 3.5 (target INR of 3). Junior TANNER, et al. Chest 2012, 141:7S-47S Lisseth RA, et al. [facility] 2017, 70: 252-289 Performed By: #### 1 4979-9, 56878-0 ####[facility] LABCLIA [id number] [place] [address] [place] PT Coag (PPP) [Time] 10.4 s Normal 9.7-13.0 [facility] Comment on above: Order Comment: Specimen Type: BLOOD SPEC IMENOrdering Facility: [facility] Address: [address] [place] [address] Performed By: #### 1 4979-9, 46612-2 ####[facility] LABCLIA [id number] [address] OF [place] [facility] TYPE AND SCREEN,30 DAYon ABO O Normal [facility] Comment on above: Order Comment: Specimen Type: BLOOD SPEC IMENOrdering Facility: [facility] Address: [address] [place] [address] Performed By: #### T [id number] ####CC [facility] BLOOD BANKCLIA [id number] [address] [place] HISTORICAL AB SCR STATUS Negative Normal [facility] Comment on above: Order Comment: Specimen Type: BLOOD SPEC IMENOrdering Facility: [facility] Address: [address] [place] [address] Performed By: #### T [id number] ####[facility] BLOOD BANKCLIA [id number] [place] [address] [place] Rh Nom (Bld) Positive Normal [facility] Comment on above: Order Comment: Specimen Type: BLOOD SPEC IMENOrdering Facility: [facility] Address: [address] [place] [address] Performed By: #### T [id number] ####CC [facility] BLOOD [facility] [id number] [place] [address] [place] URINALYSIS, REFLEX MICROSCOP ICon 02-19-2024 Bilirubin Ql (U) Negative Negative [facility] Clarity (Unsp spec) Clear Clear [facility] Color (U) Colorless Yellow [facility] Glucose Test strip (U) [Mass/Vol] Negative Trace, Negative [facility] Hemoglobin Ql (U) Negative Negative, Trace [facility] Interpretation and review of laboratory results Normal [facility] Ketones Ql (U) Negative Negative, Trace [facility] Leukocyte esterase Test strip Ql (U) Negative Negative, 25 Jefry/uL [facility] Nitrite Ql (U) Negative Negative [facility] pH (U) 5.0 [pH] 5.0 - 8.0 [facility] Protein (U) [Mass/Vol] Negative Trace, Negative [facility] Specific gravity (U) [Rel density] 1.005 1.005 - 1.030 [facility] Urobilinogen Ql (U) Normal Normal [facility] Bilirubin Ql (U) Negative Normal Negative [facility] Comment on above: Order Comment: Specimen Type: URINE SPEC IMENOrdering Facility: [facility] Address: [address] [place] [address] Performed By: #### L [id number] ####[facility] LABCLIA [id number] [address] [place] Clarity (Unsp spec) Clear Normal Clear [facility] Comment on above: Order Comment: Specimen Type: URINE SPEC IMENOrdering Facility: [facility] Address: [address] [place] [address] Performed By: #### L [id number] ####[facility] LABCLIA [id number] [place] [address] [place] Color (U) Colorless Normal Yellow [facility] Comment on above: Order Comment: Specimen Type: URINE SPEC IMENOrdering Facility: [facility] Address: [address] [place] [address] Performed By: #### L [id number] ####[facility] LABCLIA [id number] [place] [address] [place] Glucose Test strip (U) [Mass/Vol] Negative Normal Trace, Negative [facility] Comment on above: Order Comment: Specimen Type: URINE SPEC IMENOrdering Facility: [facility] Address: [address] [place] [address] Performed By: #### L [id number] ####[facility] LABCLIA [id number] [place] [address] [place] Hemoglobin Ql (U) Negative Normal Negative, Trace [facility] Comment on above: Order Comment: Specimen Type: URINE SPEC IMENOrdering Facility: [facility] Address: [address] [place] [address] Performed By: #### L [id number] ####[facility] LABCLIA [id number] [place] [address] [place] Ketones Ql (U) Negative Normal Negative, Trace [facility] Comment on above: Order Comment: Specimen Type: URINE SPEC IMENOrdering Facility: [facility] Address: [address] [place] [address] Performed By: #### L [id number] ####[facility] LABCLIA [id number] [place] [address] [place] Leukocyte esterase Test strip Ql (U) Negative Normal Negative, 25 Jefry/uL [facility] Comment on above: Order Comment: Specimen Type: URINE SPEC IMENOrdering Facility: [facility] Address: [address] [place] [address] Performed By: #### L [id number] ####[facility] LABIA [id number] [place] [address] [place] Nitrite Ql (U) Negative Normal Negative [facility] Comment on above: Order Comment: Specimen Type: URINE SPEC IMENOrdering Facility: [facility] Address: [address] [place] [address] Performed By: #### L [id number] ####[facility] LABIA [id number] [place] [address] [place] pH (U) 5.0 [pH] Normal 5.0-8.0 [facility] Comment on above: Order Comment: Specimen Type: URINE SPEC IMENOrdering Facility: [facility] Address: [address] [place] [address] Performed By: #### L [id number] ####[facility] LABIA [id number] [place] [address] [place] Protein (U) [Mass/Vol] Negative Normal Trace, Negative [facility] Comment on above: Order Comment: Specimen Type: URINE SPEC IMENOrdering Facility: [facility] Address: [address] [place] [address] Performed By: #### L [id number] ####[facility] [id number] [place] [address] [place] Specific gravity (U) [Rel density] 1.005 Normal 1.005-1.03 0 [facility] Comment on above: Order Comment: Specimen Type: URINE SPEC IMENOrdering Facility: [facility] Address: [address] [place] [address] Performed By: #### L [id number] ####[facility] LABIA [id number] [place] [address] [place] Urobilinogen Ql (U) Normal Normal Normal [facility] Comment on above: Order Comment: Specimen Type: URINE SPEC IMENOrdering Facility: [facility] Address: [address] [place] [id number] Performed By: #### L [id number] ####[facility] LABCLIA [id number] [place] [id number] [place] aPTT PPPon 02-19-2024 aPTT Coag (PPP) [Time] 26.2 s Normal 23.0-32.4 [facility] Comment on above: Order Comment: Specimen Type: BLOOD SPEC IMENOrdering Facility: [facility] Address: [address] [place] [address] Performed By: #### 1 4979-9, 99355-9 ####[facility] LABCLIA [id number] [place] [id number] [place] CT CHEST WO CONTon CT CHEST WO CONT CT CHEST WO CONT CT CHEST WO CONTRAST CLINICAL HISTORY: Pulmonary nodule, follow-up COMPARISON: 06/24/2023 PROCEDURE: Multidetector axial CT chest performed. Sagittal and coronal 2-D reconstructed images were also obtained. Automated dose reduction techniques utilized. Computer-aided detection of pulmonary nodules was performed utilizing [employer] software. All CT scans at this facility [...] Olivo MD on 01/21/2024 12:59 PM Normal [facility] CNPN Telephone (MakoondiN) ZAYNAB ZAIDI ([id number]) 1955 F Date Time Provider Department 01/13/24 RINA FOX During your visit today, we recorded the following information about you: Manuela Muñoz 01/13/2024 10:[address] [facility] email message to cancel surgery being done [...] (FLONASE) 50 mcg/actuation nasal spray Use 1 [place] in the nose as needed for cold/allergy [...] Encounter Status:Closed by MANUELA MUÑOZ on 01/13/24 [facility] CNPYen 01-08-2024 CNPN Telephone (VASSMN) ZAYNAB ZAIDI ([id number]) 1955 F Date Time Provider Department 01/08/24 [...] soon that needs to happen? Estephania Mojica Associate Professor Of Geology Rina Fox MD 01/08/2024 1:45 PM Signed Thank you ! Swati will call her. Swati Baca, DIANE 01/09/2024 12:15 PM Signed I called and [...] Fully Assessed Reason for Visit: Patient Question [1477] Prescriptions as of 01/09/2024 - calcium carbonate/vitamin D3 (CALTRATE 600 + D ORAL) Take 600 mg by mouth once daily. - atorvastatin (LIPITOR) 20 mg tablet Take 20 mg by mouth every evening. - fluticasone (FLONASE) 50 mcg/actuation nasal spray Use 1 [place] in the nose as needed for cold/allergy [...] Encounter Status:Closed by ESTEPHANIA FELTON on 01/08/24 [facility] ([id number]) 1955 F Date Time Provider Department 01/01/24 RINA FOX During your visit today, we recorded the following information about you: Estephania Felton 01/01/2024 9:27 AM Signed Mrs. Zaidi called to let Dr. Fox know that Urology is able to do the proposed procedure robotically and that she is scheduled to have it done on March 02. Estephania Mojica Associate Professor Of Geology Allergies As of Date: 01/01/2024 Noted Allergy [...] (FLONASE) 50 mcg/actuation nasal spray Use 1 [place] in the nose as needed for cold/allergy [...] Status:Closed by ESTEPHANIA FELTON on 01/01/24 Normal [facility] CNOVon 12-25-2023 CNOV Office Visit (UROLMN ) ZAYNAB ZAIDI ([id number]) 1955 F Date Time Provider Department 12/25/23 [...] performed due to technical problems in the radiographer cardiac catheterization. Venous duplex US - UE 07/18/23: - [...] (FLONASE) 50 mcg/actuation nasal spray Use 1 [place] in the nose as needed for cold/allergy [...] - atorvastat (more content not included)... Normal [facility] URINALYSIS, REFLEX MICROSCOP ICon 12-25-2023 Bilirubin Ql (U) Negative Negative [facility] Clarity (Unsp spec) Clear Clear [facility] Color (U) Colorless Yellow [facility] Glucose Test strip (U) [Mass/Vol] Negative Trace, Negative [facility] Hemoglobin Ql (U) Negative Negative, Trace [facility] Ketones Ql (U) Negative Negative, Trace [facility] Leukocyte esterase Test strip Ql (U) Negative Negative, 25 Jefry/uL [facility] Nitrite Ql (U) Negative Negative [facility] pH (U) 5.0 [pH] 5.0 - 8.0 [facility] Protein (U) [Mass/Vol] Negative Trace, Negative [facility] Specific gravity (U) [Rel density] 1.004 Low 1.005 - 1.030 [facility] Urobilinogen Ql (U) Normal Normal [facility] Bilirubin Ql (U) Negative Normal Negative [facility] Comment on above: Order Comment: Specimen Type: URINE SPEC IMENOrdering Facility: [facility] Address: [address] [place] [address] Performed By: #### L [id number] ####[facility] [id number] [place] [address] [place] Clarity (Unsp spec) Clear Normal Clear [facility] Comment on above: Order Comment: Specimen Type: URINE SPEC IMENOrdering Facility: [facility] Address: [address] [place] [address] Performed By: #### L [id number] ####[facility] LABIA [id number] [place] [address] [place] Color (U) Colorless Normal Yellow [facility] Comment on above: Order Comment: Specimen Type: URINE SPEC IMENOrdering Facility: [facility] Address: [address] [place] [address] Performed By: #### L [id number] ####[facility] LABCLIA [id number] [place] [address] [place] Glucose Test strip (U) [Mass/Vol] Negative Normal Trace, Negative [facility] Comment on above: Order Comment: Specimen Type: URINE SPEC IMENOrdering Facility: [facility] Address: [address] [place] [address] Performed By: #### L [id number] ####[facility] LABCLIA [id number] [place] [address] [place] Hemoglobin Ql (U) Negative Normal Negative, Trace [facility] Comment on above: Order Comment: Specimen Type: URINE SPEC IMENOrdering Facility: [facility] Address: [address] [place] [address] Performed By: #### L [id number] ####[facility] [id number] [place] [address] [place] Ketones Ql (U) Negative Normal Negative, Trace [facility] Comment on above: Order Comment: Specimen Type: URINE SPEC IMENOrdering Facility: [facility] Address: [address] [place] [address] Performed By: #### L [id number] ####[facility] [id number] [place] [address] [place] Leukocyte esterase Test strip Ql (U) Negative Normal Negative, 25 Jefry/uL [facility] Comment on above: Order Comment: Specimen Type: URINE SPEC IMENOrdering Facility: [facility] Address: [address] [place] [address] Performed By: #### L [id number] ####[facility] [id number] [place] [address] [place] Nitrite Ql (U) Negative Normal Negative [facility] Comment on above: Order Comment: Specimen Type: URINE SPEC IMENOrdering Facility: [facility] Address: [address] [place] [address] Performed By: #### L [id number] ####[facility] LABIA [id number] [place] [address] [place] pH (U) 5.0 [pH] Normal 5.0-8.0 [facility] Comment on above: Order Comment: Specimen Type: URINE SPEC IMENOrdering Facility: [facility] Address: [address] [place] [address] Performed By: #### L [id number] ####[facility] LABIA [id number] [place] [address] [place] Protein (U) [Mass/Vol] Negative Normal Trace, Negative [facility] Comment on above: Order Comment: Specimen Type: URINE SPEC IMENOrdering Facility: [facility] Address: [address] [place] [address] Performed By: #### L [id number] ####[facility] LABIA [id number] [place] [address] [place] Specific gravity (U) [Rel density] 1.004 Low 1.005-1.03 0 [facility] Comment on above: Order Comment: Specimen Type: URINE SPEC IMENOrdering Facility: [facility] Address: [address] [place] [address] Performed By: #### L [id number] ####[facility] LABIA [id number] [place] [address] [place] Urobilinogen Ql (U) Normal Normal Normal [facility] Comment on above: Order Comment: Specimen Type: URINE SPEC IMENOrdering Facility: [facility] Address: [address] [place] [address] Performed By: #### L [id number] ####[facility] LABIA [id number] [place] [address] [place] CNOVon 12-22-2023 CNOV Office Visit (UROLMN ) ZAYNAB ZAIDI ([id number]) 1955 F Date Time Provider Department 12/22/23 2:30 PM RADU DELEON UROLMN During your visit today, we recorded the following information about you: Birgit Cook OCCA 12/22/2023 1:51 PM Signed Patient PVR recorded: 0 mL LUCIAN Rodriguez Ruben, MD 12/23/2023 7:58 AM Signed PATIENT: Zaynab Zaidi [id number] NEW PATIENT REFERRING MD: Rina Fox 12/20/2023 [...] pelvis region (feels like sitting on cucumber) [place] this started one year ago. Thought it [...] elevating her legs. with PMH significant for [place] Syndrome, jugular vein stenosis (asymptomatic), HLD, nutcracker [...] fluticasone (FLONASE) 50 mcg/actuation nasal spray 1 Salem, NASAL, NEEDED, Take in allergy season - [...] lower ex (more content not included)... Normal [facility] URINALYSIS, REFLEX MICROSCOP ICon 12-22-2023 Bilirubin Ql (U) Negative Negative [facility] Clarity (Unsp spec) Clear Clear [facility] Color (U) Colorless Yellow [facility] Glucose Test strip (U) [Mass/Vol] Negative Trace, Negative [facility] Hemoglobin Ql (U) Negative Negative, Trace [facility] Ketones Ql (U) Negative Negative, Trace [facility] Leukocyte esterase Test strip Ql (U) Negative Negative, 25 Jefry/uL [facility] Nitrite Ql (U) Negative Negative [facility] pH (U) 5.0 [pH] 5.0 - 8.0 [facility] Protein (U) [Mass/Vol] Negative Trace, Negative [facility] Specific gravity (U) [Rel density] 1.006 1.005 - 1.030 [facility] Urobilinogen Ql (U) Normal Normal [facility] Bilirubin Ql (U) Negative Normal Negative [facility] Comment on above: Order Comment: Specimen Type: URINE SPEC IMENOrdering Facility: [facility] Address: [address] [place] [address] Performed By: #### L [id number] ####[facility] [id number] [address] [place] Clarity (Unsp spec) Clear Normal Clear [facility] Comment on above: Order Comment: Specimen Type: URINE SPEC IMENOrdering Facility: [facility] Address: [address] [place] [address] Performed By: #### L [id number] ####[facility] [id number] [place] [address] [place] Color (U) Colorless Normal Yellow [facility] Comment on above: Order Comment: Specimen Type: URINE SPEC IMENOrdering Facility: [facility] Address: [address] [place] [address] Performed By: #### L [id number] ####[facility] [id number] [place] [address] [place] Glucose Test strip (U) [Mass/Vol] Negative Normal Trace, Negative [facility] Comment on above: Order Comment: Specimen Type: URINE SPEC IMENOrdering Facility: [facility] Address: [address] [place] [address] Performed By: #### L [id number] ####[facility] [id number] [place] [address] [place] Hemoglobin Ql (U) Negative Normal Negative, Trace [facility] Comment on above: Order Comment: Specimen Type: URINE SPEC IMENOrdering Facility: [facility] Address: [address] [place] [address] Performed By: #### L [id number] ####[facility] [id number] [place] [address] [place] Ketones Ql (U) Negative Normal Negative, Trace [facility] Comment on above: Order Comment: Specimen Type: URINE SPEC IMENOrdering Facility: [facility] Address: [address] [place] [address] Performed By: #### L [id number] ####[facility] [id number] [place] [address] [place] Leukocyte esterase Test strip Ql (U) Negative Normal Negative, 25 Jefry/uL [facility] Comment on above: Order Comment: Specimen Type: URINE SPEC IMENOrdering Facility: [facility] Address: [address] [place] [address] Performed By: #### L [id number] ####[facility] [id number] [place] [address] [place] Nitrite Ql (U) Negative Normal Negative [facility] Comment on above: Order Comment: Specimen Type: URINE SPEC IMENOrdering Facility: [facility] Address: [address] [place] [address] Performed By: #### L [id number] ####[facility] [id number] [place] [address] [place] pH (U) 5.0 [pH] Normal 5.0-8.0 [facility] Comment on above: Order Comment: Specimen Type: URINE SPEC IMENOrdering Facility: [facility] Address: [address] [place] [address] Performed By: #### L [id number] ####[facility] [id number] [place] [address] [place] Protein (U) [Mass/Vol] Negative Normal Trace, Negative [facility] Comment on above: Order Comment: Specimen Type: URINE SPEC IMENOrdering Facility: [facility] Address: [address] [place] [address] Performed By: #### L [id number] ####[facility] [id number] [place] [id number] [place] Specific gravity (U) [Rel density] 1.006 Normal 1.005-1.03 0 [facility] Comment on above: Order Comment: Specimen Type: URINE SPEC IMENOrdering Facility: [facility] Address: [address] [place] [address] Performed By: #### L [id number] ####[facility] [id number] [place] [address] [place] Urobilinogen Ql (U) Normal Normal Normal [facility] Comment on above: Order Comment: Specimen Type: URINE SPEC IMENOrdering Facility: [facility] Address: [address] [place] [address] Performed By: #### L [id number] ####[facility]EN[facility] [id number] [place] [address] [place] CNOVon 12-18-2023 CNOV Office Visit (VASSMN ) ZAYNAB ZAIDI ([id number]) 1955 F Date Time Provider Department 12/18/23 12:00 PM RINA FOX During your visit today, we recorded the following information about you: Temperature Pulse Respiration Blood pressure 98.3 degrees 64/minute 14/minute 131/87 Weight Height 58.4 kg 1.689 m Rina Fox MD 12/18/2023 3:50 PM [facility] [place] DEPARTMENT OF VASCULAR SURGERY OUTPATIENT VISIT DATE [...] elevating her legs. with PMH significant for [place] Syndrome, jugular vein stenosis (asymptomatic), HLD, nutcracker [...] performed due to technical problems in the radiographer cardiac catheterization. Venous duplex US - UE 07/18/23: - [...] (FLONASE) 50 mcg/actuation nasal spray Use 1 Salem in the nose as needed for cold/allergy [...] clubbing. Neurol (more content not included)... [facility] Tele[facility] (VASSMN) ZAYNAB ZAIDI ([id number]) 1955 F Date Time Provider Department 12/11/23 NO PCP PADMA During your visit today, we recorded the [...] she can be scheduled appropriately. Estephania Mojica Associate Professor Of Geology Lulu Hernandez RN 12/11/2023 12:39 PM Signed [...] Date Reviewed: 11/11/2023 Reviewed by: Bev Mahmood APRN.PNEUMATIC JACK OPERATOR - Fully Assessed Reason for Visit: Patient Question [8147] Prescriptions as of 12/12/2023 - calcium carbonate/vitamin D3 (CALTRATE 600 + D ORAL) Take 600 mg by mouth once daily. - atorvastatin (LIPITOR) 20 mg tablet Take 20 mg by mouth every morning. - fluticasone (FLONASE) 50 mcg/actuation nasal spray Use 1 Salem in the nose once daily. - gabapentin [...] Encounter Status:Closed by ESTELA CHANG on 12/12/23 [facility]idi [facility] ZAY[facility]B ZAIDI ([id number]) 1955 F Date Time Provider Department 12/08/23 [...] Date Reviewed: 11/11/2023 Reviewed by: Bev Mahmood APRN.PNEUMATIC JACK OPERATOR - Fully Assessed Reason for Visit: Phone call to patient [Other] Prescriptions as of 12/08/2023 - calcium carbonate/vitamin D3 (CALTRATE 600 + D ORAL) Take 600 mg by mouth once daily. - atorvastatin (LIPITOR) 20 mg tablet Take 20 mg by mouth every morning. - fluticasone (FLONASE) 50 mcg/actuation nasal spray Use 1 [place] in the nose once daily. - gabapentin [...] Encounter Status:Closed by GENARO ANDREW on 12/08/23 [facility]POD[facility] ZAYNAB ZAIDI ([id number]) 1955 F Date Time Provider Department 12/08/23 VASCULAR SURGERY, PHYSICIAN PODCCP During your visit today, we recorded the following information about you: Keturah Gallardo 12/08/2023 2:29 PM Signed Reason for call: Ms Zaidi called and she would like to schedule an appointment with Vascular Surgery. Home and cell number:[phone] Home. [phone] Diagnosis:pelvic congestion syndrome Keturah Jay. Estela Chang 12/10/2023 12:24 PM Signed [employer] message sent with phone number for Vascular Interventional Radiology for this condition. Allergies As of Date: 12/08/2023 Noted Allergy Reaction CLINDAMYCIN 06/30/2018 2 - Rash 12 - Shortness of Breath CODEINE 06/30/2018 8 - GI Upset Date Reviewed: 11/11/2023 Reviewed by: Bev Mahmood APRN.[facility] - Fully Assessed Reason for Visit: Appointment [186] Prescriptions as of 12/10/2023 - calcium carbonate/vitamin D3 (CALTRATE 600 + D ORAL) Take 600 mg by mouth once daily. - atorvastatin (LIPITOR) 20 mg tablet Take 20 mg by mouth every morning. - fluticasone (FLONASE) 50 mcg/actuation nasal spray Use 1 Salem in the nose once daily. - gabapentin [...] Status:Closed by KETURAH GALLARDO on 12/08/23 Normal [facility] COMPLETE BLOOD COUNTon 11-12 Erythrocyte distribution width (RBC) [Ratio] 14.5 % Normal 11.5-15.0 [facility] Comment on above: Performed By: #### CBC, METAL ROASTER #### [facility] ([id number]) [address] [address] [place] [address] Hematocrit (Bld) [Volume fraction] 38.5 % Normal 35-47 [facility] Comment on above: Performed By: #### CBC, METAL ROASTER #### [facility] ([id number]) [address] [address] [place] [address] Hemoglobin (Bld) [Mass/Vol] 12.9 g/dL Normal 11.7-15.5 [facility] Comment on above: Performed By: #### CBC, METAL ROASTER #### [facility] ([id number]) [address] [address] [place] [address] MCH (RBC) [Entitic mass] 29.2 pg Normal 27-34 [facility] Comment on above: Performed By: #### CBC, METAL ROASTER #### [facility] ([id number]) [address] [address] [place] [address] MCHC (RBC) [Mass/Vol] 33.6 g/dL Normal 32-36 [facility] Comment on above: Performed By: #### CBC, METAL ROASTER #### [facility] ([id number]) [address] [address] [place] [address] MCV (RBC) [Entitic vol] 87 fL Normal 80-100 [facility] Comment on above: Performed By: #### CBC, METAL ROASTER #### [facility] ([id number]) [address] [address] Platelet mean volume (Bld) [Entitic vol] 10.5 fL Normal 7-12 [facility] Comment on above: Performed By: #### CBC, METAL ROASTER #### [facility] ([id number]) [address] [address] Platelets (Bld) [#/Vol] 205 10*3/uL Normal 150-450 [facility] Comment on above: Performed By: #### CBC, METAL ROASTER #### [facility] ([id number]) [address] [address] RBC COUNT 4.43 X10E12/L Normal 3.80-5.20 [facility] Comment on above: Performed By: #### CBC, METAL ROASTER #### [facility] ([id number]) [address] [address] WBC (Bld) [#/Vol] 4.8 10*3/uL Normal 4.0-11.0 [facility] Comment on above: Performed By: #### CBC, METAL ROASTER #### [facility] ([id number]) [address] [address] CREATININEon 11-12-2023 Creatinine [Mass/Vol] 0.90 mg/dL Normal 0.40-1.00 [facility] Comment on above: Result Comment: METHOD TRACEABLE TO IDMS STANDARD Performed By: #### C BC, METAL ROASTER #### [facility] ([id number]) [address] [address] GFR/1.73 sq M.predicted among non-blacks MDRD (S/P/Bld) [Vol rate/Area] 71 mL/min/{1.73_m2} Normal >59 [facility] Comment on above: Result Comment: Reported eGFR is based on the CKD-EPI 2020 equation that does not use a race coefficient. Performed By: #### C BC, METAL ROASTER #### [facility] ([id number]) [address] [facility] [place] [address] HISTORY PHYSICALon HISTORY PHYSICAL HNO ID: [id number] Author: BEV MAHMOOD APRN.MARIBEL Service: ? 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 Manometry was not performed due to technical problems in the radiographer cardiac catheterization. -Venous incompetency duplex US- LE 04/25/23: No [...] Do you have pain that moves from [id number]? No Do have sudden episodes of pelvic [...] Pelvis: left , Flank: Left Duration: since November, constant Quality: Pain: sharp at L flank [...] veins) Mot (more content not included)... Normal [facility] CNOVon 11-05-2023 CNOV Office Visit (PERVMN ) ZAYNAB ZAIDI ([id number]) 1955 F Date Time Provider Department 11/05/23 12:45 PM PAGE BUCHANAN During your visit today, we recorded the following information about you: Pulse Blood pressure Weight Height 67/minute 153/80 58.5 kg 1.727 m Page Buchanan MD 11/05/2023 2:48 PM Signed [facility] [place] [facility] Varma Department of Cardiovascular Medicine SECTION [...] file. History of present illness: 68yof from [place], [place], who came to [place] today (2-hr drive) for this patient -initiated appointment. She initially tried to schedule appt with Vascular Surgery, and she was also referred to IR (Dr. Camp), but she was ultimately referred to Vascular Medicine. She is, however, scheduled with IR on 11/11/23 (presumably for an appt with Dr. Camp, but there are no physician names clearly specified in the appt). PMHx Shakopee Syndrome, jugular vein stenosis (asymptomatic), HLD, pelvic [...] was unremarkable. She has undergone evaluation in [facility] records available under care everywhere and [...] (FLONASE) 50 mcg/actuation nasal spray Use 1 Salem in the nose once daily. gabapentin (NEURONTIN) [...] mother; varicose (more content not included)... [facility] Telephone (PODCCP) ZAYNAB ZAIDI ([id number]) 1955 F Date Time Provider Department 10/16/23 NO PCP PODCCP During your visit today, we recorded the following information about you: Eduar Austin 10/16/2023 2:13 PM Signed Reason for call: Ms Zaidi called and she would like to schedule an appointment with Vascular surgery Home and cell number: [phone] Diagnosis: pelvic congestion syndrome Eduar Jay Nadine 10/21/2023 2:10 PM Signed Patient has appt scheduled with Dr Salinas 10/30/23. Allergies As of Date: 10/16/2023 (Not on File) Date Reviewed: Never Reviewed Reason for Visit: Appointment [186] Problem List As Of Date: 10/16/2023 (None) Encounter Status:Closed by ESTELA CHANG on 10/21/23 Normal [facility] CBC AUTO DIFFon 02-18-2023 BASO # 0.1 103/ul Normal 0.0-0.1 [facility] Comment on above: Performed By: #### CBC #### [facility] [address] [place] [address] Dr. Camilo Reese Basophils/100 WBC (Bld) 1.4 % Normal 0.2-2.0 [facility] Comment on above: Performed By: #### CBC #### [facility] [address] [place] [address] Dr. Camilo Reese EO # 0.1 103/ul Normal 0.0-0.7 [facility] Comment on above: Performed By: #### CBC #### [facility] [address] [place] [address] [address] Camilo Reese Eosinophils/100 WBC (Bld) 2.4 % Normal 0.9-7.0 [facility] Comment on above: Performed By: #### CBC #### [facility] [address] [place] [address] Dr. Camilo Reese Erythrocyte distribution width (RBC) [Ratio] 13.9 % Normal 11.0-15.0 [facility] Comment on above: Performed By: #### CBC #### [facility] [address] [place] [address] Dr. Camilo Reese Hematocrit (Bld) [Volume fraction] 41.3 % Normal 36.0-48.0 [facility] Comment on above: Performed By: #### CBC #### [facility] [address] [place] [address] [address] Camilo Reese Hemoglobin (Bld) [Mass/Vol] 13.5 g/dL Normal 12.0-16.0 [facility] Comment on above: Performed By: #### CBC #### [facility] [address] [place] [address] Dr. Camilo Reese IG # 0.00 10e3/ul Normal 0.00-0.03 [facility] Comment on above: Performed By: #### CBC #### [facility] [address] [place] [address] Dr. Camilo Reese IG % 0.0 % Normal 0.0-0.5 [facility] Comment on above: Performed By: #### CBC #### [facility] [address] [place] [address] Dr. Camilo Reese LYMPH # 1.3 103/ul Normal 1.2-3.8 [facility] Comment on above: Performed By: #### CBC #### [facility] [address] [place] [address] Dr. Camilo Reese Lymphocytes/100 WBC (Bld) 31.0 % Normal 20.5-60.0 [facility] Comment on above: Performed By: #### CBC #### [facility] [address] [place] [address] Dr. Camilo Reese MANUAL DIFF REQ NO Normal [facility] Comment on above: Performed By: #### CBC #### [facility] [address] [place] [address] Dr. Camilo Reese MCH (RBC) [Entitic mass] 29.2 pg Normal 26.7-34.0 [facility] Comment on above: Performed By: #### CBC #### [facility] [address] [place] [address] Dr. Camilo Reese MCHC (RBC) [Mass/Vol] 32.7 g/dL Normal 29.9-35.2 [facility] Comment on above: Performed By: #### CBC #### [facility] [address] [place] [address] Dr. Camilo Reese MCV (RBC) [Entitic vol] 89.4 fL Normal 81.0-99.0 [facility] Comment on above: Performed By: #### CBC #### [facility] [address] [place] [address] Dr. Camilo Reese MONO # 0.6 103/ul Normal 0.3-0.8 [facility] Comment on above: Performed By: #### CBC #### [facility] [address] [place] [address] Dr. Camilo Reese Monocytes/100 WBC (Bld) 13.8 % Critically high 1.7-12.0 [facility] Comment on above: Performed By: #### CBC #### [facility] [address] [place] [address] Dr. Camilo Reees NEUT # 2.2 103/ul Normal 1.4-6.5 [facility] Comment on above: Performed By: #### CBC #### [facility] [address] [place] [address] Dr. Camilo Reese Neutrophils/100 WBC (Bld) 51.4 % Normal 43.0-75.0 [facility] Comment on above: Performed By: #### CBC #### [facility] [address] [place] [address] Dr. Camilo Reese Platelet mean volume (Bld) [Entitic vol] 11.5 fL Normal 9.5-13.5 [facility] Comment on above: Performed By: #### CBC #### [facility] [address] [place] [address] Dr. Camilo Reese PLT 254 103/ul Normal 150-450 [facility] Comment on above: Performed By: #### CBC #### [facility] [address] [place] [address] Dr. Camilo Reese RBC 4.62 106/ul Normal 4.20-5.40 [facility] Comment on above: Performed By: #### CBC #### [facility] [address] [place] [address] Dr. Camilo Reese WBC 4.2 103/ul Normal 4.0-11.0 [facility] Comment on above: Performed By: #### CBC #### [facility] [address] [place] [address] ABD/PELVIS WO CONon [...] by: ELIE NEVES Date: 2023-02-18 11:36 Normal [facility] ER URINE PROFILEon 3 Bilirubin Ql (U) SMALL Abnormal NEGATIVE [facility] Comment on above: Performed By: #### GALI ERUR #### [facility] [address] [place] [address] Dr. Camilo Reese Clarity (U) CLEAR Normal CLEAR [facility] Comment on above: Performed By: #### GALI ERUR #### [facility] [address] [place] [address] Dr. Camilo Reese Color (U) DK. YELLOW Normal YELLOW [facility] Comment on above: Performed By: #### GALI ERUR #### [facility] [address] [address] [address] Camilo Reese ERUAHD A micrscopic examina tion will be performed if indicated. Normal [facility] [place] Comment on above: Performed By: #### GALI ERUR #### [facility] [address] [place] [address] Dr. Camilo Reese Glucose Ql (U) Negative Normal NEGATIVE [facility] Comment on above: Performed By: #### GALI, ERUR #### [facility] [address] [place] [address] Dr. Camilo Reese Hemoglobin Ql (U) TRACE-INTACT Abnormal NEGATIVE [facility] Comment on above: Performed By: #### GALI, ERUR #### [facility] [address] [place] [address] Dr. Camilo Reese Ketones Ql (U) TRACE Abnormal NEGATIVE [facility] Comment on above: Performed By: #### GALI, ERUR #### [facility] [address] [place] [address] Dr. Camilo Reese LEUKOCYTES Negative Normal NEGATIVE [facility] [place] Comment on above: Performed By: #### GALI, ERUR #### [facility] [address] [place] [address] Dr. Camilo Reese Nitrite Ql (U) Negative Normal NEGATIVE [facility] Comment on above: Performed By: #### GALI ERUR #### [facility] [address] [place] [address] Dr. Camilo Reese pH (U) 5.0 [pH] Normal 5-9 [facility] [place] Comment on above: Performed By: #### GALI ERUR #### [facility] [address] [place] [address] Dr. Camilo Reese SPEC GRAVITY >=1.030 Abnormal 1.005-<=1. 025 [facility] Comment on above: Performed By: #### GALI ERUR #### [facility] [address] [place] [address] Dr. Camilo Reese UA PROTEIN Negative Normal NEGATIVE/ TRACE [facility] Comment on above: Performed By: #### GALI ERUR #### [facility] [address] [place] [address] Dr. Camilo Reese UR MICRO IND INDICATED Normal [facility] Comment on above: Performed By: #### GALI ERUR #### [facility] [address] [place] [address] Dr. Camilo Reese Urobilinogen Qn (U) 0.2 {Alberta'U}/dL Normal 0.2 - 1.0 [facility] Comment on above: Performed By: #### RORY TALBERT #### [facility] [address] [place] [address] Dr. Camilo Reese PROF 14(COMP METB)on 023 Albumin [Mass/Vol] 4.0 g/dL Normal 3.4-5.0 [facility] Comment on above: Performed By: #### CMP #### [facility] [address] [place] [address] Dr. Camilo Reese Albumin/Globulin [Mass ratio] 1.2 {ratio} Normal [facility] Comment on above: Performed By: #### CMP #### [facility] [address] [place] [address] Dr. Camilo Reese ALP [Catalytic activity/Vol] 69 U/L Normal 46-116 [facility] Comment on above: Performed By: #### CMP #### [facility] [address] [place] [address] Dr. Camilo Reese ALT [Catalytic activity/Vol] 18 U/L Normal 14-59 [facility] Comment on above: Performed By: #### CMP #### [facility] [address] [place] [address] Dr. Camilo Reese Anion gap [Moles/Vol] 11.7 mmol/L Normal [facility] Comment on above: Performed By: #### CMP #### [facility] [address] [place] [address] Dr. Camilo Reese AST [Catalytic activity/Vol] 21 U/L Normal 15-37 [facility] Comment on above: Performed By: #### CMP #### [facility] [address] [place] [address] Dr. Camilo Reese Bilirubin [Mass/Vol] 1.0 mg/dL Normal 0.2-1.0 [facility] Comment on above: Performed By: #### CMP #### [facility] [address] [place] [address] Dr. Camilo Reese Calcium [Mass/Vol] 9.1 mg/dL Normal 8.5-10.1 [facility] Comment on above: Performed By: #### CMP #### [facility] [address] [address] [address] Camilo Reese Chloride [Moles/Vol] 103 mmol/L Normal 98-107 [facility] Comment on above: Performed By: #### CMP #### [facility] [address] [address] [address] Camilo Reese CO2 [Moles/Vol] 28.7 mmol/L Normal 21.0-32.0 [facility] Comment on above: Performed By: #### CMP #### [facility] [address] [address] [address] Camilo Reese Creatinine [Mass/Vol] 0.95 mg/dL Normal 0.55-1.02 [facility] Comment on above: Performed By: #### CMP #### [facility] [address] [place] [address] Dr. Camilo Reese EGFR-AF THAI >60 Normal >=60 [facility] Comment on above: Performed By: #### CMP #### [facility] [address] [place] [address] Dr. Camilo Reese EGFR-NON AF THAI 59 mL/min/1.73m2 Critically low >=60 [facility] Comment on above: Performed By: #### CMP #### [facility] [address] [place] [address] Dr. Camilo Reese Globulin (S) [Mass/Vol] 3.4 g/dL Normal [facility] Comment on above: Performed By: #### CMP #### [facility] [address] [address] [address] Camilo Reese Glucose [Mass/Vol] 101 mg/dL Normal 74-106 [facility] Comment on above: Performed By: #### CMP #### [facility] [address] [place] [address] Dr. Camilo Reese Potassium [Moles/Vol] 3.4 mmol/L Critically low 3.5-5.1 [facility] Comment on above: Performed By: #### CMP #### [facility] [address] [address] [address] Camilo Reese Protein [Mass/Vol] 7.4 g/dL Normal 6.4-8.2 [facility] Comment on above: Performed By: #### CMP #### [facility] [address] [address] [address] Camilo Reese Sodium [Moles/Vol] 140 mmol/L Normal 136-145 [facility] Comment on above: Performed By: #### CMP #### [facility] [address] [place] [address] Dr. Camilo Reese Urea nitrogen [Mass/Vol] 17.0 mg/dL Normal 7.0-18.0 [facility] Comment on above: Performed By: #### CMP #### [facility] [address] [place] [address] Dr. Camilo Reese Urea nitrogen/Creatin ine [Mass ratio] 17.9 mg/mg Normal [facility] Comment on above: Performed By: #### CMP #### [facility] [address] [place] [address] Dr. Camilo Reese URINE MICROSCOPIC ONLYon BACTERIA TRACE Abnormal NONE SEEN [facility] Comment on above: Performed By: #### ROBERT TALBERTR #### [facility] [address] [place] [address] Dr. Camilo Reese Bacteria identified Cx Nom (U) NOT INDICATED Normal [facility] Comment on above: Performed By: #### GALI ERUR #### [facility] [address] [place] [address] Dr. Camilo Reese CAST NONE SEEN Normal NONE SEEN [facility] Comment on above: Performed By: #### GALI ERUR #### [facility] [address] [place] [address] Dr. Camilo Reese Crystals LM Nom (Urine sed) NONE SEEN Normal NONE SEEN [facility] Comment on above: Performed By: #### GALI ERUR #### [facility] [address] [place] [address] Dr. Camilo Reese Epithelial cells LM Ql (Urine sed) RARE Normal NONE SEEN /RARE [facility] Comment on above: Performed By: #### UMICRO, ERUR #### [facility] [address] [address] [address] Camilo Reese MUCOUS TRACE Abnormal NONE SEEN [facility] Comment on above: Performed By: #### UMICRO, ERUR #### [facility] [address] [address] [address] Camilo Reese RBC 0-2 Normal 0-2 [facility] Comment on above: Performed By: #### UMICRO, ERUR #### [facility] [address] [address] [address] Camilo Reese WBC NONE SEEN Normal NONE SEEN [facility] Comment on above: Performed By: #### UMICRO, ERUR #### [facility] [address] [address] [address] Camilo Reese US EXT NON VASC [...] DEREK MCCRAY Date: 2023-02-18 14:07 Normal [facility] Urinalysis - AUTOMATEDon Appearance (U) clear [employer] Other Bilirubin Ql (U) Negative [employer] Other Color (U) light yellow [employer] Other Glucose Ql (U) Negative [employer] Other Hemoglobin Ql (U) trace intact [employer] Other Ketones Ql (U) Negative [employer] Other Leukocyte esterase Test strip Ql (U) Negative [employer] Other Nitrite Ql (U) Negative [employer] Other pH (U) 6.0 [pH] [employer] Other Protein Ql (U) Negative [employer] Other Specific gravity (U) [Rel density] <1.005 [employer] Other Urobilinogen (U) [Mass/Vol] 0.2 mg/dL [employer] Other Urinalysis - AUTOMATED [employer] Other CBC AUTO DIFFon 11-01-2022 BASO # 0.1 103/ul Normal 0.0-0.1 [facility] [place] Comment on above: Performed By: #### DATCBC #### [facility] [address] [place] [address] Dr. Camilo Reese Basophils/100 WBC (Bld) 1.3 % Normal 0.2-2.0 [facility] Comment on above: Performed By: #### DATCBC #### [facility] [address] [place] [address] Dr. Camilo Reese EO # 0.2 103/ul Normal 0.0-0.7 [facility] [place] Comment on above: Performed By: #### DATCBC #### [facility] [address] [place] [address] Dr. Camilo Reese Eosinophils/100 WBC (Bld) 5.2 % Normal 0.9-7.0 [facility] Comment on above: Performed By: #### DATCBC #### [facility] [address] [place] [address] Dr. Camilo Reese Erythrocyte distribution width (RBC) [Ratio] 14.6 % Normal 11.0-15.0 [facility] Comment on above: Performed By: #### DATCBC #### [facility] [address] [place] [address] Dr. Camilo Reese Hematocrit (Bld) [Volume fraction] 42.9 % Normal 36.0-48.0 [facility] Comment on above: Performed By: #### DATCBC #### [facility] [address] [place] [address] Dr. Camilo Reese Hemoglobin (Bld) [Mass/Vol] 13.9 g/dL Normal 12.0-16.0 [facility] [place] Comment on above: Performed By: #### DATCBC #### [facility] [address] [place] [address] Dr. Camilo Reese IG # 0.01 10e3/ul Normal 0.00-0.03 [facility] [place] Comment on above: Performed By: #### DATCBC #### [facility] [address] [place] [address] Dr. Camilo Reese IG % 0.3 % Normal 0.0-0.5 [facility] Comment on above: Performed By: #### DATCBC #### [facility] [address] [place] [address] Dr. Camilo Reese LYMPH # 1.3 103/ul Normal 1.2-3.8 [facility] Comment on above: Performed By: #### DATCBC #### [facility] [address] [place] [address] Dr. Camilo Reese Lymphocytes/100 WBC (Bld) 33.6 % Normal 20.5-60.0 [facility] Comment on above: Performed By: #### DATCBC #### [facility] [address] [place] [address] Dr. Camilo Reese MCH (RBC) [Entitic mass] 28.7 pg Normal 26.7-34.0 [facility] Comment on above: Performed By: #### DATCBC #### [facility] [address] [place] [address] Dr. Camilo Reese MCHC (RBC) [Mass/Vol] 32.4 g/dL Normal 29.9-35.2 [facility] [place] Comment on above: Performed By: #### DATCBC #### [facility] [address] [place] [address] Dr. Camilo Reese MCV (RBC) [Entitic vol] 88.5 fL Normal 81.0-99.0 [facility] Comment on above: Performed By: #### DATCBC #### [facility] [address] [place] [address] Dr. Camilo Reese MONO # 0.6 103/ul Normal 0.3-0.8 [facility] [place] Comment on above: Performed By: #### DATCBC #### [facility] [address] [place] [address] Dr. Camilo Reese Monocytes/100 WBC (Bld) 15.0 % Critically high 1.7-12.0 [facility] Comment on above: Performed By: #### DATCBC #### [facility] [address] [place] [address] Dr. Camilo Reese NEUT # 1.7 103/ul Normal 1.4-6.5 [facility] Comment on above: Performed By: #### DATCBC #### [facility] [address] [place] [address] Dr. Camilo Reese Neutrophils/100 WBC (Bld) 44.6 % Normal 43.0-75.0 [facility] Comment on above: Performed By: #### DATCBC #### [facility] [address] [place] [address] Dr. Camilo Reese Platelet mean volume (Bld) [Entitic vol] 11.5 fL Normal 9.5-13.5 [facility] Comment on above: Performed By: #### DATCBC #### [facility] [address] [place] [address] Dr. Camilo Reese PLT 240 103/ul Normal 150-450 [facility] Comment on above: Performed By: #### DATCBC #### [facility] [address] [place] [address] Dr. Camilo Reese RBC 4.85 106/ul Normal 4.20-5.40 [facility] Comment on above: Performed By: #### DATCBC #### [facility] [address] [place] [address] Dr. Camilo Reese WBC 3.8 103/ul Critically low 4.0-11.0 [facility] Comment on above: Performed By: #### DATCBC #### [facility] [address] [address] [address] Camilo Reese DAMARIS- BMP WITH LIPIDon 2022 Anion gap [Moles/Vol] 10.7 mmol/L Normal [facility] Comment on above: Performed By: #### DATBMP #### [facility] [address] [address] [address] Camilo Reese Calcium [Mass/Vol] 9.1 mg/dL Normal 8.5-10.1 [facility] Comment on above: Performed By: #### DATBMP #### [facility] [address] [place] [address] Dr. Camilo Reese Chloride [Moles/Vol] 103 mmol/L Normal 98-107 [facility] Comment on above: Performed By: #### DATBMP #### [facility] [address] [address] [address] Camilo Reese Cholesterol [Mass/Vol] 216 mg/dL Critically high <=200 [facility] Comment on above: Performed By: #### DATBMP #### [facility] [address] [address] [address] Camilo Reese Cholesterol in HDL [Mass/Vol] 111 mg/dL Critically high 40-60 [facility] Comment on above: Performed By: #### DATBMP #### [facility] [address] [address] [address] Camilo Reese Cholesterol in LDL [Mass/Vol] 91.0 mg/dL Normal [facility] Comment on above: Performed By: #### DATBMP #### [facility] [address] [address] [address] Camilo Reese CO2 [Moles/Vol] 31.4 mmol/L Normal 21.0-32.0 [facility] Comment on above: Performed By: #### DATBMP #### [facility] [address] [address] [address] Camilo Reese Creatinine [Mass/Vol] 0.72 mg/dL Normal 0.55-1.02 [facility] [place] Comment on above: Performed By: #### DATBMP #### [facility] [address] [address] [address] Camilo Reese EGFR-AF THAI >60 Normal >=60 [facility] Comment on above: Performed By: #### DATBMP #### [facility] [address] [address] [address] Camilo Reese EGFR-NON AF THAI >60 Normal >=60 [facility] Comment on above: Performed By: #### DATBMP #### [facility] [address] [address] [address] Camilo Reese Glucose [Mass/Vol] 89 mg/dL Normal 74-106 [facility] Comment on above: Performed By: #### DATBMP #### [facility] [address] [place] [address] Dr. Camilo Reese HDL NORMAL > or = 60 mg/dl - LO W CARDIOVASCULAR RISK <40 mg/dl - HIGH CARDIOVASCULAR RISK Normal [facility] Comment on above: Performed By: #### DATBMP #### [facility] [address] [place] [address] Dr. Camilo Reese LDL CALC NORMAL SEE BELOW Normal [facility] Comment on above: Result Comment: <100 mg/dl OPTIMAL 100 - 129 mg/dl NEAR OR ABOVE OPTIMAL 130 - 159 mg/dl BORDERLINE HIGH 160 - 189 mg/dl HIGH >190 mg/dl VERY HIGH Performed By: #### D ATBMP #### [facility] [address] [place] [address] Dr. Camilo Reese Potassium [Moles/Vol] 4.1 mmol/L Normal 3.5-5.1 [facility] Comment on above: Performed By: #### DATBMP #### [facility] [address] [place] [address] Dr. Camilo Reese Sodium [Moles/Vol] 141 mmol/L Normal 136-145 [facility] Comment on above: Performed By: #### DATBMP #### [facility] [address] [address] [address] Camilo Reese Triglyceride [Mass/Vol] 70 mg/dL Normal <=150 [facility] [place] Comment on above: Performed By: #### DATBMP #### [facility] [address] [address] [address] Camilo Reese Urea nitrogen [Mass/Vol] 17.0 mg/dL Normal 7.0-18.0 [facility] [place] Comment on above: Performed By: #### DATBMP #### [facility] [address] [address] [address] Camilo Reese Urea nitrogen/Creatin ine [Mass ratio] 23.6 mg/mg Normal [facility] [place] Comment on above: Performed By: #### DATBMP #### [facility] [address] [address] [address] Camilo Reese VLDL CALC 14.0 mg/dL Normal [facility] Comment on above: Performed By: #### DATBMP #### [facility] [address] [place] [address] Dr. Camilo Reese MG MAMM SCREEN 3D CINTHYA CADon 08-13-2022 MG MAMM SCREEN 3D CINTHYA CAD Patient: ZAYNAB ZAIDI Exam Date: 08/13/2022 : 1955 Gender:F Ordering : DR AMMON LUCAS M.D. Admission #: [id number] Family : Order #: [id number] CLICK HERE TO VIEW EXAM RADIOLOGY REPORT PROCEDURE: MAMMOGRAM SCREENING 3D BILATERAL CAD COMPARISON: MG MAMM SCREEN CINTHYA W CAD, 08/10/2018. INDICATIONS: Screening mammography Calculator Name NCI Breast Cancer Risk Assessment Tool 5 Year Breast Cancer Risk 1.40% Lifetime Breast Cancer Risk 5.80% Personal Breast Cancer No Personal Ovarian Cancer No Treatments None Family Cancers None LOCATION: [facility] BREAST COMPOSITION: Scattered areas fibroglandular density. FINDINGS: [...] MD on 08/13/2022 at 15:43 Normal [facility] SARS-CoV-2 (COVID-19) RNA NA A+probe Ql (Resp)on 07-28-2022 SARS-CoV-2 (COVID-19) RNA CHLOE+probe Ql (Unsp spec) Negative [employer] Other CBC Without Differentialon 0 02-23-2022 Erythrocyte distribution width (RBC) [Ratio] 14.6 % Normal 11.9-15.3 [facility] Comment on above: Performed By: #### OUTREACH CMP, OUTREAC H LIPID, CBCNOOUTREACH #### [address] Hematocrit (Bld) [Volume fraction] 43.4 % Normal 34.0-46.4 [facility] Comment on above: Performed By: #### OUTREACH CMP, OUTREAC H LIPID, CBCNOOUTREACH #### [address] Hemoglobin (Bld) [Mass/Vol] 14.3 g/dL Normal 11.8-15.4 [facility] Comment on above: Performed By: #### OUTREACH CMP, OUTREAC H LIPID, CBCNOOUTREACH #### [address] MCH (RBC) [Entitic mass] 29.4 pg Normal 24.7-34.3 [facility] Comment on above: Performed By: #### OUTREACH CMP, OUTREAC H LIPID, CBCNOOUTREACH #### [address] MCV (RBC) [Entitic vol] 89.2 fL Normal 80-100 [facility] Comment on above: Performed By: #### OUTREACH CMP, OUTREAC H LIPID, CBCNOOUTREACH #### [address] Mean Corpuscular HGB Conc 33.0 g/dL Normal 32.0-35.0 [facility] Comment on above: Performed By: #### OUTREACH CMP, OUTREAC H LIPID, CBCNOOUTREACH #### [facility] [address] [place] [address] Platelet mean volume (Bld) [Entitic vol] 10.2 fL Normal 6.3-10.7 [facility] Comment on above: Result Comment: PERFORMED BY: [place] [address] PATHOLOGIST EDGE BANDER HAND BRAD GARCÍA M.D. Performed By: #### O [facility] CMP, OUTREACH LIPID, CBCNOOUTREACH #### [facility] [address] [place] [address] Platelets (Bld) [#/Vol] 220 10*3/uL Normal 150-450 [facility] Comment on above: Performed By: #### OUTREACH CMP, OUTREAC H LIPID, CBCNOOUTREACH #### [address] RBC (Bld) [#/Vol] 4.86 10*6/uL Normal 3.60-5.00 [facility] Comment on above: Performed By: #### OUTREACH CMP, OUTREAC H LIPID, CBCNOOUTREACH #### [address] WBC (Bld) [#/Vol] 3.6 10*3/uL Low 3.8-11.6 [facility] Comment on above: Performed By: #### OUTREACH CMP, OUTREAC H LIPID, CBCNOOUTREACH #### [facility] [address] [place] [address] CMP Outreachon 02-23-2022 Albumin [Mass/Vol] 4.0 g/dL Normal 3.2-5.5 [facility] Comment on above: Performed By: #### OUTREACH CMP, OUTREAC H LIPID, CBCNOOUTREACH #### [address] ALP [Catalytic activity/Vol] 59 U/L Normal 32-92 [facility] Comment on above: Performed By: #### OUTREACH CMP, OUTREAC H LIPID, CBCNOOUTREACH #### [facility] [address] [place] [address] [place] ALT [Catalytic activity/Vol] 14 U/L Normal 10-60 [facility] Comment on above: Performed By: #### OUTREACH CMP, OUTREAC H LIPID, CBCNOOUTREACH #### [facility] [address] [place] [address] AST [Catalytic activity/Vol] 22 U/L Normal 10-42 [facility] Comment on above: Performed By: #### OUTREACH CMP, OUTREAC H LIPID, CBCNOOUTREACH #### [facility] [address] [place] [address] [place] Bilirubin [Mass/Vol] 1.1 mg/dL Normal 0.3-1.2 [facility] Comment on above: Performed By: #### OUTREACH CMP, OUTREAC H LIPID, CBCNOOUTREACH #### [facility] [address] [place] [address] Calcium [Mass/Vol] 9.7 mg/dL Normal 8.2-10.2 [facility] Comment on above: Performed By: #### OUTREACH CMP, OUTREAC H LIPID, CBCNOOUTREACH #### [facility] [address] [place] [address] [place] Chloride [Moles/Vol] 101 mmol/L Normal 95-114 [facility] Comment on above: Performed By: #### OUTREACH CMP, OUTREAC H LIPID, CBCNOOUTREACH #### [facility] [address] [place] [address] [place] CO2 [Moles/Vol] 28.8 mmol/L Normal 22.0-30.0 [facility] Comment on above: Performed By: #### OUTREACH CMP, OUTREAC H LIPID, CBCNOOUTREACH #### [facility] [address] [place] [address] [place] Creatinine [Mass/Vol] 0.75 mg/dL Normal 0.44-1.03 [facility] Comment on above: Performed By: #### OUTREACH CMP, OUTREAC H LIPID, CBCNOOUTREACH #### [facility] [address] [place] [address] [place] Estimated GFR ( Annie > 60 Normal [facility] Comment on above: Result Comment: GFR estimated reference range: According to KDOQI guidelines, <60 ml/min/1.73m2 is sufficient to diagnose a patient with chronic kidney disease. Performed By: #### O UTREACH CMP, OUTREACH LIPID, CBCNOOUTREACH #### [facility] [address] [id number] [place] Estimated GFR (Non- Am > 60 Normal [facility] Comment on above: Performed By: #### OUTREACH CMP, OUTREAC H LIPID, CBCNOOUTREACH #### [facility] [address] [id number] [place] Glucose [Mass/Vol] 85 mg/dL Normal 70-100 [facility] Comment on above: Result Comment: Random Glucose Reference Range is dependent on time and content of last meal. Glucose of more than 200 mg/dL in a nonstressed, ambulatory subject supports the diagnosis of Diabetes Mellitus. ADA recommended reference range Performed By: #### O UTREACH CMP, OUTREACH LIPID, CBCNOOUTREACH #### [facility] [address] [id number] [place] Potassium [Moles/Vol] 4.4 mmol/L Normal 3.5-5.1 [facility] Comment on above: Performed By: #### OUTREACH CMP, OUTREAC H LIPID, CBCNOOUTREACH #### [facility] [address] [phone] [place] Protein [Mass/Vol] 6.8 g/dL Normal 6.1-7.9 [facility] Comment on above: Performed By: #### OUTREACH CMP, OUTREAC H LIPID, CBCNOOUTREACH #### [facility] [address] [phone] [place] Sodium [Moles/Vol] 141 mmol/L Normal 136-146 [facility] Comment on above: Performed By: #### OUTREACH CMP, OUTREAC H LIPID, CBCNOOUTREACH #### [facility] [address] [phone] [place] Urea nitrogen [Mass/Vol] 13 mg/dL Normal 9-23 [facility] Comment on above: Performed By: #### OUTREACH CMP, OUTREAC H LIPID, CBCNOOUTREACH #### [facility] [address] [place] [address] [place] Lipid Profile Outreachon Cholesterol [Mass/Vol] 236 mg/dL High 140-200 [facility] Comment on above: Result Comment: Chol less than 200 mg/dl low risk Chol 201-239 mg/dl borderline risk Chol 240 mg/dl and greater high risk Performed By: #### O UTREACH CMP, OUTREACH LIPID, CBCNOOUTREACH #### [facility] [address] Cholesterol in HDL [Mass/Vol] 93 mg/dL High 35-85 [facility] Comment on above: Result Comment: HDL CHOL ATP-III CLASSIF ICATION Cardiovascular Risk HDL > or equal to 60 mg/dL LOW HDL < 40 mg/dL HIGH Performed By: #### O UTREACH CMP, OUTREACH LIPID, CBCNOOUTREACH #### [facility] [address] [place] [address] Cholesterol.tota l/Cholesterol in HDL [Mass ratio] 2.5 {ratio} Normal <5.0 [facility] Comment on above: Result Comment: PERFORMED BY: [place] [address] PATHOLOGIST EDGE BANDER HAND BRAD GARCÍA M.D. Performed By: #### O UTREACH CMP, OUTREACH LIPID, CBCNOOUTREACH #### [facility] [address] [place] [address] LDL Cholesterol,Calc ulated 130 mg/dL High 0-100 [facility] Comment on above: Result Comment: LDL ATP III CLASSIFICATI ON LDL less than 100 mg/dL Optimal LDL 100-129 mg/dL Near or above optimal LDL 130-159 mg/dL Borderline high LDL 160-189 mg/dL High LDL greater than 189 mg/dL Very high Performed By: #### O UTREACH CMP, OUTREACH LIPID, CBCNOOUTREACH #### [facility] [address] [place] [address] [place] Triglyceride w/Reflex 64 mg/dL Normal 35-149 [facility] Comment on above: Result Comment: TRIG ATP III CLASSIFICAT ION TRIG less than 150 mg/dL Normal TRIG 150-199 mg/dL Borderline high TRIG 200-500 mg/dL High TRIG greater than 500 mg/dL Very high Standard traceable to the Center for Disease Conrtrol and Prevention (CDC) test method. Performed By: #### O UTREACH CMP, OUTREACH LIPID, CBCNOOUTREACH #### [facility] [address] VLDL CHOLESTEROL 12 mg/dL Normal [facility] Comment on above: Performed By: #### OUTREACH CMP, OUTREAC H LIPID, CBCNOOUTREACH #### [facility] [address] Main OR Intraoperative Recor don 07-09-2018 Main OR Intraoperative Record IntraOp Document Type FT Summary Primary Physician: Joel Monroe MD Finalized Date/Time: 07/09/18 12:32:26 Pt. Name: ZAYNAB ZAIDI/Sex: 1955 Female Med Rec #: [id number] Physician: Joel Monroe MD Financial #: [id number] Pt. Type: A Room/Bed: [address] [address] Admit/Disch: 05/21/18 07:49:00 - 05/21/18 12:55:00 Institution: [...] Richie FRITZ DO, Kian Monroe MD, Joel Aguilar BSN, RN, Ileana Role Performed Anesthesiologist of Surgeon - Primary National Service Officer - Primary Record Time In 05/21/18 10:37:00 05/21/18 10:37:00 05/21/18 10:37:00 Time Out 05/21/18 11:04:00 05/21/18 11:00:00 05/21/18 11:04:00 Procedure CYSTOSCOPY CYSTOSCOPY CYSTOSCOPY URETEROSCOPY(Left), URETEROSCOPY(Left), URETEROSCOPY(Left), CYSTOSCOPY STENT CYSTOSCOPY STENT CYSTOSCOPY STENT INSERTION(Left) INSERTION(Left) INSERTION(Left) Comments Last Modified By: Lauren CARRILLO, RN, Lauren CARRILLO, RN, Lauren CRARILLO, RN, Ileana 05/21/18 11:08:42 Ilenaa 05/21/18 11:08:42 Ileana 05/21/18 11:08:42 Entry 4 Entry 5 Entry 6 Case Attendee Rosie RN, CNOR, Pura Gutierrez CST, Giancarlo Villarreal Role Performed Broadcast Checker Scrub - Primary Tractor Trailer Moving Van Driver Time In 05/21/18 10:37:00 05/21/18 10:37:00 05/21/18 [...] X-ray Applicable) PreOp Antibiotic Yes Time Out Liben JR DO, Fer Wasserman MD, Joel Gonzalez, Lauren CARRILLO, RN, Rosie Tejeda RN, CNOR, Pura Ann, Marry Gutierrez CST Time Out Complete 05/21/18 10:50:00 Outcomes Met? Yes Last Modified By: Lauren CARRILLO RN, Kelly 05/21/18 10:58:40 Post-Care Text: The patient is free from signs and symptoms of injury caused by extraneous objects Allergy Information FT Pre-Care Text: Verifies allergies Entry 1 Allergies Reviewed? Yes Allergies Reviewed Self/Patient With Outcomes Met? Yes Last Modified By: Rosie RN, LAURIE, Pura Ann 05/21/18 10:40:58 Post-Care Text: [...] 2 - Clean-Contaminated Last Modified By: Lauren CARRILLO RN, Lauren CARRILLO, Ileana CONTRERAS 05/21/18 11:09:16 Ileana [...] Yes Last Modified By: Lauren CARRILLO RN, Ileana 05/21/18 10:59:21 Post-Care Text: The patient is free from signs and symptoms of infection Skin Assessment (Pre Procedure) FT Pre-Care Text: Implements protective measures to prevent skin/ tissue injury due to thermal or mechanical sources Evaluates for signs and symptoms of physical injury to skin and tissue Entry 1 Skin Integrity Intact, Dinuba, Warm, and Skin Abnormality No Dry Outcomes Met? Yes Last Modified By: LAURIE Velez RN, Lou Ann 05/21/18 10:41:28 Post-Care Text: The patient is [...] Met? Yes Last Modified By: Lauren CARRILLO, RN, Ileana 05/21/18 10:58:40 Post-Care Text: The patient is [...] Met? Yes Yes Yes Last Modified By: LAURIE Velez RN, Lou Ann Blank RN, CNOR, Lou Ann Blank RN, CNOR, Lou Ann 05/21/18 10:42:45 05/21/18 10:42:45 05/21/18 10:42:45 Entry 4 Entry 5 Entry 6 Equipment Type MONITOR CHARGE SURGERY SUELLEN SUCTION UNIT [F] PADDED STIRRUPS [F] [F] Equipment Number Equipment Setting Outcomes Met? Yes Yes Yes Last Modified By: LAURIE Velez RN, Lou Ann Blank RN, CNOR, Lou Ann Blank RN, CNOR, Lou Ann [...] Rails Up PostOp Destination PACU Transported By Lauren CARRILLO RN, Kelly Patient Status Stable Skin. Condition Intact, Dinuba, Warm, and Dry Airway Maintenance Oxygen in [...] safely administered during the perioperative period For [facility] please see scanned medication reconcilliation form for [...] BLANKET MISTRAL AIR Quantity 1 Aid TORSO [[id number]][F] Fluid/Haslett Unit Mistral warming system Setting high Body Site Upper anterior torso Last Modified By: Lauren CARRILLO RN, Kelly 05/21/18 10:54:28 Case Comments Finalized By: Lauren CARRILLO RN, Kelly Document Signatures Signed By: Lauren CARRILLO RN, Kelly 05/21/18 11:09 Lauren CARRILLO RN, Kelly 05/21/18 11:09 Kira Carmona CST 05/22/18 09:27 Lauren CARRILLO RN, Kelly 07/09/18 12:32 Normal [facility] Coding Summary.on 05-25-2018 Coding Summary. CODING DATE: 018 [facility] STATUS: Home (Routine DC) PAYOR: Commercial [...] PROC APC STAT DESCRIPTION DOCTOR NAME DATE 45345 5373 J1 Cystourethroscopy, with Joel Monroe MD 05/21/2018 ureteral catheterization, with or without irrigation, instillation, or ureteropyelography, exclusive of radiologic service; 89192 Anesthesia for 05/21/2018 transurethral procedures (including urethrocystoscopy); not otherwise specified NOTE: The code number assigned matches the documented diagnosis and / or procedure in the patient's chart. However, the narrative phrase printed from the coding software may appear abbreviated, or result in slightly different terminology. Revised Coded By: Lanny Lazcano Revised Date Saved: 05/25/2018 02:20 pm Normal [facility] Operative Reporton 8 Operative Report Date of Surgery: 05/21/2018SURGEON: Joel Monroe M.D.PREOPERATIVE DIAGNOSIS: N13.2 left hydronephrosis with left ureteralcalculusPOSTOPERATIVE DIAGNOSIS: N13.2 left hydronephrosis with left ureteralcalculusOPERATION: Cystoscopy, left retrograde pyelogramCOMPLICATIONS: NoneANESTHESIA: General by laryngeal mask airwayANESTHESIOLOGIST: Shira Quiroz Jr., D.O.FINDINGS: No evidence of ureteral stone or obstructionINDICATIONS: Mrs. Zaidi is a 62 year old female who presented to [facility] with ongoing severe left-sided inguinal/vaginal [...] isplaced per urethra. A well lubricated 22 Martiniquais cystourethroscope with 30degree lens is then passed into the bladder. Moderately tight through theurethra upon passage. Once into the bladder panendoscopy reveals no tumors,no stones, no diverticula. The orifices are normal x2. Specifically thereis absolutely no left-sided ureteral inflammation. There is no erythema.There is nothing to suggest recent passage of a stone. A left retrogradepyelogram was then performed utilizing a 6 Martiniquais open-ended ureteralcatheter. The ureter is completely normal [...] the procedure well, was transferred to the [facility] then back to Post-Anesthesia Care Unit [...] in the office in six months with Italo.Joel Monroe M.D.lkrDictated: 05/21/2018 #[id number]: 05/22/2018 #[id number]: Steve Tinajero M.D. [facility] Comment on above: Result Comment: Electronically Signed By : Joel Monroe MD\.br\Date and Time Signed: 05/22/18 16:45 EDT Inpatient Patient Summaryon 05-21-2018 [facility] Inst[facility] INFORMATION Name: ZAYNAB ZAIDI PHYSICIANS Admitting Physician: Joel Monroe MDAttending Physician: Joel Monroe MD PCP: Lewis LUCAS MD Diagnosis: Hydronephrosis with ureteral calculus Comment: PATIENT EDUCATION INFORMATIONInstructions:Medicat ion Leaflets:Follow up:With: Address: When: Joel Monroe [address], [address], [place] [address] [id number] [facility] (1) In 6 months 11/21/2018 Comments: Please have my office arrange for an abdominal X-ray before your visit (looking for stones in the kidneys) MEDICATION LISTComment: Normal [facility] Main OR PACU I Recordon Main OR PACU I Record PACU Phase I Document Type FT Summary Primary Physician: Joel Monroe MD Finalized Date/Time: 05/21/18 12:01:48 Pt. Name: ZAYNAB ZAIDI /Sex: 1955 Female Med Rec #: [id number] Physician: Joel Monroe MD Financial #: [id number] Pt. Type: A Room/Bed: [address] [address] Admit/Disch: 05/21/18 07:49:37 - Institution: Case Times [...] Signed By: Alisa Grider RN 05/21/18 12:01 Normal [facility] Main OR PACU II Recordon Main OR PACU II Record PACU Phase II Document Type FT Summary Primary Physician: Joel Monroe MD Finalized Date/Time: 05/21/18 13:41:43 Pt. Name: ZAYNAB AZIDI/Sex: 1955 Female Med Rec #: [id number] Physician: Joel Monroe MD Financial #: [id number] Pt. Type: A Room/Bed: / Admit/Disch: 05/21/18 07:49:37 - Institution: Case Times [...] By: Almita Poe RN 05/21/18 13:41 Normal [facility] Main OR Preoperative Recordo n 05-21-2018 Main OR Preoperative Record PreOp Document Type FT Summary Primary Physician: Joel Monroe MD Finalized Date/Time: 05/21/18 10:37:48 Pt. Name: ZAYNAB ZAIDI/Sex: 1955 Female Med Rec #: [id number] Physician: Joel Monroe MD Financial #: [id number] Pt. Type: A Room/Bed: [facility] Admit/Disch: 05/21/18 07:49:37 - Institution: Case Times [...] Velez RN, Lou Ann 05/21/18 10:37 Normal [facility] Patient Education - Texton 0 05-21-2018 Patient Education - Text Normal [facility] Progress Note-Physicianon Protein mass conc Patient: ZAYNAB ZAIDI Age: 62 years Sex: Female : 1955 Associated Diagnoses: None Author: Kian Quiroz JR, DO Postoperative Information Post Operative Note: Post Anesthesia Care Unit. Anesthetic utilized: General, Monitored anesthesia care. Health Status Allergies: Allergic Reactions (Selected)SevereAmoxicillin- Rash.Bee Stings- Redness.Clindamycin- Rash.Doxycycline- Stomach upset.Penicillins- Rash. Current medications: (Selected) Inpatient WmnspsbyzxlXsxvrdkJ0AQ 1000 mL Soln-IV 1,000 mL: 1,000 mL, [...] stone on left side / SNOMED CT 532699060 / ConfirmedArthritis / SNOMED CT 6576738 / Confirmed Physical Examination Intake and Output Denies significant n/v and is tolerating p.o. Vital Signs (last 24 hrs) Last Charted Temp Oral 36.9 DegC (MAY 21:55)Heart Rate Apical 70 bpm (MAY 21 09:00)Resp Rate 16 br/min (MAY 21:55)SBP 138 mmHg (MAY 21:)DBP 81 mmHg (MAY 21:55)SpO2 99 % (MAY 21:) Pain assessment: Pain Assessment 05/21/2018 12:55 EDT [...] 6 . Respiratory: Adequate air exchange with confucianism of preoperative function.. Cardiovascular: Cardiovascular function is stable and has returned to preoperative levels.. Neurologic: Pt has returned to preoperative baseline.. Review / Management Condition: Stable. Assessment Anesthetic outcome No anesthetic complications noted. Plan Transfer/ Discharge: Patient can be discharged from PACU when criteria met. Condition good. Normal [facility] Comment on above: Result Comment: Electronically [...] Stomach upset.Penicillins- Rash. Current medications: (Selected) Inpatient WbzciyfffqnWpxgvbpX1YS 1000 mL Soln-IV 1,000 mL: 1,000 mL, [...] stone on left side / SNOMED CT 883280881 / ConfirmedArthritis / SNOMED CT 0580744 / Confirmed Physical Examination Intake and Output [...] 6 . Respiratory: Adequate air exchange with confucianism of preoperative function.. Cardiovascular: Cardiovascular function is stable and has returned to preoperative levels.. Neurologic: Pt has returned to preoperative baseline.. Review / Management Condition: Stable. Assessment Anesthetic outcome No anesthetic complications noted. Plan Transfer/ Discharge: Patient can be discharged from PACU when criteria met. Condition good. Normal [facility] Protein mass conc Patient: ZAYNAB ZAIDI [...] Stomach upsetpenicillins Rash Current medications: (Selected) Inpatient PjcvgkqfyaoYrvdiqtF0GV 1000 mL Soln-IV 1,000 mL: 1,000 mL, [...] [F] 0.4 mg 0.2 mL, IV Push, o3ktkmobgwzdrvjcj 25 mg/mL Inj [F] 12.5 mg 0.5 mL, IV Push, q2min Problem list: All ProblemsKidney stone on left side / SNOMED CT 807141062 / ConfirmedArthritis / SNOMED CT 6055947 / Confirmed, Active Problems (2)Arthritis Kidney stone on left side Histories Past Medical History: No active or resolved past medical history items have been selected or recorded. Family History: No family history items have been selected or recorded. Procedure history: Cholecystectomy (14809011).knee arthroscopy for torn meniscus, rt.Tubal ligation (476803435). Social History Social & Psychosocial PyjaldQnwcvrl78/07/2018 Risk Assessment: Denies Alcohol UseSubstance Abuse05/19/2018 Risk Assessment: Denies Substance CddywKkwqpoz14/07/2018 Risk Assessment: Denies Tobacco Use. Physical Examination Vital Signs (last 24 hrs) Last Charted Temp Oral 36.6 DegC (MAY 21 08:12)Heart Rate Apical 70 bpm (MAY 21 09:00)Resp Rate 16 br/min (MAY 21:12)SBP H 147 mmHg (MAY 21 09:50)DBP 75 mmHg (MAY 21 09:50)SpO2 98 % (MAY 21 08:14) Airway: Normal oral/pharyngeal anatomy.. Respiratory: Adequate air exchange.. Cardiovascular: Adequate perfusion and function. Review / Management Results review: No qualifying data available. Plan [place] [employer]esthesiologists (ASA) physical status classification: Class II. Anesthetic Preoperative Plan Anesthesia: General. . Anesthetic plan, risks, benefits, and alternatives discussed with the patient and/or family. Pt. and/or family present and agree to proceed as planned.. Discussed the importance of abstaining from tobacco products, and offered counseling if desired. Normal [facility] Comment on above: Result Comment: Electronically Signed By : Kian Quiroz JR, DO.dale\Date and Time Signed: 05/21/18 10:58 EDT XR [...] Morris MD Transcribed by: DORON Technologist: FRANCISCA Normal [facility] XR Urography Retrograde Left on 05-21-2018 XR Urography Retrograde Left Exam Date/Time:05/21/2018 12:42 EDTReason for Exam:stoneReportIMPRESSION: UNREMARKABLE LEFT RETROGRADE PYELOGRAMCLINICAL HISTORY: stoneCOMPARISON: NONE. FINDINGS: 6 fluoroscopic images were saved during left retrograde pyelogram. Thereis no sign of obstruction. There are no worrisome filling defects.Fluoroscopy time was 54 seconds. Cumulative x-ray dose was 3.1 mGy. FINAL REPORT Dictated: 05/21/2018 5:30 pm Bryanna Morris MD Signed (Electronic Signature): 05/21/2018 5:30 pm Signed by: Bryanna Morris MD Transcribed by: DORON Technologist: Lata CommentsRadiation Dose: Ka,r in mGy = 3.1Fluoro Time: 54 seconds Normal [facility] Coding Summary.on 05-20-2018 Coding Summary. CODING DATE: 018 FINAL [facility] STATUS: Home (Routine DC) PAYOR: Commercial [...] Eng Date Saved: 05/20/2018 01:06 pm Normal [facility] PT & PTTon 05-19-2018 aPTT Coag time (Bld) 30.5 second(s) Normal 25.1-36.5 [facility] Comment on above: Result Comment: Heparin therapeutic rang e (represented by Anti-Factor Xa activity of 0.2 - 0.4 U/mL) corresponds to PTT of 53.9 - 87.4 sec. Performed By: #### 1 [id number] ####[facility] [address] [place] [address] INR Coag RelTime (PPP) 1.0 {INR} Invalid Interpretation Code [facility] Comment on above: Result Comment: INR results are specific ally intended to assess patients stabilized on long-term Anticoagulation therapy suggested INR?s ?Less Intensive Anticoagulation? 2.0 ? 3.0Conventional Range 3.0 ? 4.5 Performed By: #### 1 [id number] ####[facility] [address] [place] [address] Prothrombin time (PT) Coag time (PPP) 10.9 second(s) Normal 10.2-12.9 [facility] Comment on above: Performed By: #### [id number] ####[facility] [address] [place] [address] XR Chest 2 Viewson 8 XR Chest [...] MD Transcribed by: akbar Technologist: SHARRON Mehta [facility] Vital Signs Date Time Vital Sign Value Performing Clinician Facility 07-26-2024 10: Body height 170.2 cm Sarah Godwin MD [facility] [employer] [facility] 07-26-2024 10:19-0400 Body mass index (BMI) [Ratio] 21.64 kg/m2 Sarah Godwin MD Work Phone: [facility] 07-26-2024 10:19-0400 Body temperature 98.29 [degF] Sarah Godwin MD Work Phone: [facility] 07-26-2024 10:19-0400 Body weight 62.69 kg Sarah Godwin MD Work Phone: [facility] 07-06-2024 10:26-0400 Body mass index (BMI) [Ratio] 21.27 kg/m2 Augustina Vargas MD Work Phone: [facility] 07-06-2024 10:26-0400 Body weight 61.6 kg Augustina Vargas MD Work Phone: [facility] 07-06-2024 10:26-0400 Diastolic blood pressure 70 mm[Hg] Augustina Vargas MD Work Phone: [facility] 07-06-2024 10:26-0400 Systolic blood pressure 132 mm[Hg] Augustina Vargas MD Work Phone: [facility] 06-03-2024 08:47-0400 Body height 170.2 cm Tessa Tenisha DO Work Phone: [facility] 06-03-2024 08:47-0400 Body mass index (BMI) [Ratio] 21.77 kg/m2 Tessa Tenisha DO Work Phone: [facility] 06-03-2024 08:47-0400 Body weight 63.05 kg Tessa Tenisha DO Work Phone: [facility] 06-03-2024 08:47-0400 Diastolic blood pressure 57 mm[Hg] Tessa Tenisha DO Work Phone: [facility] 06-03-2024 08:47-0400 Heart rate 66 /min Tessa Tenisha DO Work Phone: [facility] 06-03-2024 08:47-0400 SaO2% (BldA) [Mass fraction] 99 % Tessa Tenisha DO Work Phone: [facility] 06-03-2024 08:47-0400 Systolic blood pressure 117 mm[Hg] Tessa Tenisha DO Work Phone: [facility] 05-27-2024 08:49-0400 Body height 170.2 cm Augustina Vargas MD Work Phone: [facility] 05-27-2024 08:49-0400 Body mass index (BMI) [Ratio] 20.83 kg/m2 Augustina Vargas MD Work Phone: [facility] 05-27-2024 08:49-0400 Body weight 60.33 kg Augustina Vargas MD Work Phone: [facility] 05-27-2024 08:49-0400 Diastolic blood pressure 80 mm[Hg] Augustina Vargas MD Work Phone: [facility] 05-27-2024 08:49-0400 Systolic blood pressure 146 mm[Hg] Augustina Vargas MD Work Phone: [facility] 02-19-2024 12:57-0400 Body height 170.2 cm Pacc 9 Work Phone: [facility] 02-19-2024 12:57-0400 Body mass index (BMI) [Ratio] 20.92 kg/m2 Pacc 9 Work Phone: [facility] 02-19-2024 12:57-0400 Body temperature 97 [degF] Pacc 9 Work Phone: [facility] 02-19-2024 12:57-0400 Body weight 60.6 kg Pacc 9 Work Phone: [facility] 02-19-2024 12:57-0400 Diastolic blood pressure 71 mm[Hg] Pacc 9 Work Phone: [facility] 02-19-2024 12:57-0400 Heart rate 60 /min Pacc 9 Work Phone: [facility] 02-19-2024 12:57-0400 SaO2% (BldA) [Mass fraction] 100 % Pac 9 Work Phone: [facility] 02-19-2024 12:57-0400 Systolic blood pressure 137 mm[Hg] Pac 9 Work Phone: [facility] 12-18-2023 11:37-0500 Body height 168.9 cm Rina Fox MD Work Phone: [facility] 12-18-2023 11:37-0500 Body temperature 98.29 [degF] Rina Fox MD Work Phone: [facility] 12-18-2023 11:37-0500 Body weight 58.42 kg Rina Fox MD Work Phone: [facility] 12-18-2023 11:37-0500 Diastolic blood pressure 87 mm[Hg] Rina Fox MD Work Phone: [facility] 12-18-2023 11:37-0500 Heart rate 64 /min Rina Fox MD Work Phone: [facility] 12-18-2023 11:37-0500 Respiratory rate 14 /min Rina Fox MD Work Phone: [facility] 12-18-2023 11:37-0500 SaO2% (BldA) [Mass fraction] 100 % Rina Fox MD Work Phone: [facility] 12-18-2023 11:37-0500 Systolic blood pressure 131 mm[Hg] Rina Fox MD Work Phone: [facility] 12-02-2023 12:23-0500 Body height 170.2 cm Alex Ramirez PA-C Work Phone: [employer] [facility] 12-02-2023 12:23-0500 Body mass index (BMI) [Ratio] 20.45 kg/m2 Alex Ramirez PA-C Work Phone: [email or web address] 12-02-2023 12:23-0500 Body temperature 98.01 [degF] Alex Ramirez PA-C Work Phone: [employer] 12-02-2023 12:23-0500 Body weight 59.24 kg Alex Ramirez PA-C Work Phone: [employer] 09-01-2023 10:45-0500 Body height 167.64 cm Ammon Lucas Other [employer] Other 09-01-2023 10:45-0500 Body mass index (BMI) [Ratio] 19.69 kg/m2 Ammon Lucas Other [employer] Other 09-01-2023 10:45-0500 Body weight 55.34 kg Ammon Lucas Other [employer] Other 09-01-2023 10:45-0500 Diastolic blood pressure 76 mm[Hg] Ammon Lucas Other [employer] Other 09-01-2023 10:45-0500 Systolic blood pressure 138 mm[Hg] Ammon Lucas Other [employer] Other 07-29-2023 10:00-0400 Body height 167.64 cm Ammon Lucas Other [employer] Other 07-29-2023 10:00-0400 Body mass index (BMI) [Ratio] 19.72 kg/m2 Ammon Lucas Other [employer] Other 07-29-2023 10:00-0400 Body weight 55.43 kg Ammon Lucas Other [employer] Other 07-29-2023 10:00-0400 Diastolic blood pressure 76 mm[Hg] Ammon Lucas Other [employer] Other 07-29-2023 10:00-0400 Systolic blood pressure 123 mm[Hg] Ammon Lucas Other [employer] Other 07-02-2023 10:00-0400 Body height 167.64 cm Ammon Lucas Other [employer] Other 07-02-2023 10:00-0400 Body mass index (BMI) [Ratio] 20.01 kg/m2 Ammon Lucas Other [facility] Other 07-02-2023 10:00-0400 Body weight 56.25 kg Ammon Lucas Other [facility] Other 07-02-2023 10:00-0400 Diastolic blood pressure 88 mm[Hg] Ammon Lucas Other [facility] Other 07-02-2023 10:00-0400 Systolic blood pressure 145 mm[Hg] Ammon Lucas Other [facility] Other 06-06-2023 13:45-0400 Body height 167.64 cm Ammon Lucas Other [facility] Other 06-06-2023 13:45-0400 Body mass index (BMI) [Ratio] 20.66 kg/m2 Ammon Lucas Other [facility] Other 06-06-2023 13:45-0400 Body weight 58.06 kg Ammon Lucas Other [facility] Other 06-06-2023 13:45-0400 Diastolic blood pressure 70 mm[Hg] Ammon Lucas Other [facility] Other 06-06-2023 13:45-0400 SaO2% (BldA) [Mass fraction] 99 % Ammon Lucas Other [facility] Other 06-06-2023 13:45-0400 Systolic blood pressure 112 mm[Hg] Ammon Lucas Other [facility] Other 05-29-2023 09:50-0400 Body height 167.64 cm Ayaka Joyner Other [facility] Other 05-29-2023 09:50-0400 Body mass index (BMI) [Ratio] 20.43 kg/m2 Ayaka Joyner Other [facility] Other 05-29-2023 09:50-0400 Body temperature 98.3 [degF] Ayaka Joyner Other [facility] Other 05-29-2023 09:50-0400 Body weight 57.43 kg Ayaka Joyner Other [facility] Other 05-29-2023 09:50-0400 Diastolic blood pressure 88 mm[Hg] Ayaka Joyner Other [facility] Other 05-29-2023 09:50-0400 Respiratory rate 18 /min Ayaka Joyner Other [facility] Other 05-29-2023 09:50-0400 SaO2% (BldA) [Mass fraction] 96 % Ayaka Joyner Other [facility] Other 05-29-2023 09:50-0400 Systolic blood pressure 144 mm[Hg] Ayaka Joyner Other [facility] Other 02-11-2023 14:45-0400 Body height 167.64 cm Ammon Lucas Other [facility] Other 02-11-2023 14:45-0400 Body mass index (BMI) [Ratio] 22.76 kg/m2 Ammon Lucas Other [facility] Other 02-11-2023 14:45-0400 Body temperature 97.8 [degF] Ammon Lucas Other [facility] Other 02-11-2023 14:45-0400 Body weight 63.96 kg Ammon Lucas Other [facility] Other 02-11-2023 14:45-0400 Diastolic blood pressure 80 mm[Hg] Ammon Lucas Other [facility] Other 02-11-2023 14:45-0400 SaO2% (BldA) [Mass fraction] 93 % Ammon Lucas Other [facility] Other 02-11-2023 14:45-0400 Systolic blood pressure 148 mm[Hg] Ammon Lucas Other [facility] Other 02-11-2023 11:15-0400 Body height 168.91 cm Ayaka Joyner Other [facility] Other 02-11-2023 11:15-0400 Body mass index (BMI) [Ratio] 21.94 kg/m2 Ayaka Joyner Other [facility] Other 02-11-2023 11:15-0400 Body temperature 98.7 [degF] Ayaka Joyner Other [facility] Other 02-11-2023 11:15-0400 Body weight 62.6 kg Ayaka Joyner Other [facility] Other 02-11-2023 11:15-0400 Diastolic blood pressure 83 mm[Hg] Ayaka Joyner Other [facility] Other 02-11-2023 11:15-0400 Respiratory rate 18 /min Ayaka Joyner Other [facility] Other 02-11-2023 11:15-0400 SaO2% (BldA) [Mass fraction] 99 % Ayaka Joyner Other [facility] Other 02-11-2023 11:15-0400 Systolic blood pressure 152 mm[Hg] Ayaka Joyner Other [facility] Other 11-22-2022 13:35-0500 Body height 168.91 cm Ayaka Joyner Other [facility] Other 11-22-2022 13:35-0500 Body mass index (BMI) [Ratio] 22.1 kg/m2 Ayaka Joyner Other [facility] Other 11-22-2022 13:35-0500 Body temperature 98 [degF] Ayaka Joyner Other [facility] Other 11-22-2022 13:35-0500 Body weight 63.05 kg Ayaka Joyner Other [facility] Other 11-22-2022 13:35-0500 Respiratory rate 18 /min Ayaka Joyner Other [facility] Other 11-22-2022 13:35-0500 SaO2% (BldA) [Mass fraction] 98 % Ayaka Joyner Other [facility] Other 10-31-2022 15:30-0500 Body height 168.91 cm Ammon Lucas Other [facility] Other 10-31-2022 15:30-0500 Body mass index (BMI) [Ratio] 22.57 kg/m2 Ammon Lucas Other [facility] Other 10-31-2022 15:30-0500 Body weight 64.41 kg Ammon Lucas Other [facility] Other 10-31-2022 15:30-0500 Diastolic blood pressure 72 mm[Hg] Ammon Lucas Other [facility] Other 10-31-2022 15:30-0500 SaO2% (BldA) [Mass fraction] 97 % Ammon Lucas Other [facility] Other 10-31-2022 15:30-0500 Systolic blood pressure 128 mm[Hg] Ammon Lucas Other [facility] Other 07-28-2022 12:55-0400 Body height 170.18 cm Ayaka Joyner Other [facility] Other 07-28-2022 12:55-0400 Body mass index (BMI) [Ratio] 22.65 kg/m2 Ayaka Joyner Other [facility] Other 07-28-2022 12:55-0400 Body temperature 98.5 [degF] Ayaka Joyner Other [facility] Other 07-28-2022 12:55-0400 Body weight 65.59 kg Ayaka Joyner Other [facility] Other 07-28-2022 12:55-0400 Respiratory rate 18 /min Ayaka Ar Other [facility] Other 07-28-2022 12:55-0400 SaO2% (BldA) [Mass fraction] 99 % Ayaka Ar Other [facility] Other 09-14-2021 19:10-0500 Body height 170.18 cm Manuela Sheeba Other [facility] Other 09-14-2021 19:10-0500 Body mass index (BMI) [Ratio] 21.92 kg/m2 Manuela Sheeba Other [facility] Other 09-14-2021 19:10-0500 Body temperature 97.7 [degF] Manuela Sheeba Other [facility] Other 09-14-2021 19:10-0500 Body weight 63.5 kg Manuela Sheeba Other [facility] Other 09-14-2021 19:10-0500 Respiratory rate 18 /min Manuela Sheeba Other [facility] Other 09-14-2021 19:10-0500 SaO2% (BldA) [Mass fraction] 99 % Manuela Sheeba Other [facility] Other 07-29-2021 12:25-0400 Body height 170.18 cm Manuela Sheeba Other [facility] Other 07-29-2021 12:25-0400 Body mass index (BMI) [Ratio] 21.92 kg/m2 Manuela Sheeba Other [facility] Other 07-29-2021 12:25-0400 Body temperature 97.8 [degF] Manuela Aly Other [facility] Other 07-29-2021 12:25-0400 Body weight 63.5 kg Manuela Aly Other [facility] Other 07-29-2021 12:25-0400 Diastolic blood pressure 80 mm[Hg] Manuela Aly Other [facility] Other 07-29-2021 12:25-0400 Respiratory rate 18 /min Manuela Aly Other [facility] Other 07-29-2021 12:25-0400 SaO2% (BldA) [Mass fraction] 99 % Manuela Aly Other [facility] Other 07-29-2021 12:25-0400 Systolic blood pressure 145 mm[Hg] Manuela Aly Other [facility] Other Encounters Encounter Date Encounter Type Care Provider Facility Start: 09-22-2024 ambulatory [facility] Start: 09-21-2024 End: 09-21-2024 Telephone encounter Augustina Vargas MD Work Phone: [facility] Comment on above: Other; Patient Updat e Start: 09-15-2024 ambulatory [facility] Start: 09-01-2024 End: 09-01-2024 ambulatory [facility] Start: 09-01-2024 End: 09-01-2024 Subsequent hospital visit by physician 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 PTA [facility] Comment on above: Arrived Start: 08-23-2024 End: 08-23-2024 Telephone encounter Augustina Vargas MD Work Phone: [facility] Comment on above: Medication Problem Start: 08-23-2024 End: 08-23-2024 [facility]ulatory [facility] Start: 08-23-2024 End: 08-23-2024 Subsequent hospital visit [...] Start: 08-17-2024 End: 08-19-2024 Telephone encounter Augustina aVrgas MD Work Phone: Gynecology Comment on above: Appointment Start: 08-16-2024 End: 08-16-2024 ambulatory [facility] Start: 08-16-2024 End: 08-16-2024 Subsequent hospital visit by physician Rosemary [facility] Comment on above: Arrived Start: 08-09-2024 End: 08-09-2024 ambulatory [facility] Start: 08-02-2024 End: 08-02-2024 ambulatory [facility] Start: 08-02-2024 End: 08-02-2024 Subsequent hospital visit by physician Rosemary [facility] Physical Therapy Comment on above: Arrived Start: 07-26-2024 End: 07-26-2024 Office outpatient visit 10 minutes Sarah Godwin MD Work Phone: [facility] Comment on above: Chronic sialoadeniti s (Primary Dx) Start: 07-26-2024 End: 07-26-2024 ambulatory SARAH GODWIN [facility] Start: 07-12-2024 End: 07-12-2024 ambulatory [facility] Start: 07-07-2024 End: 07-07-2024 ambulatory [facility] Start: 07-06-2024 End: 07-06-2024 ambulatory AMMON LUCAS Facility:[facility] Start: 07-06-2024 End: 07-06-2024 Patient encounter procedure Augustina Vargas MD Work Phone: Gynecology Comment on above: High-tone pelvic stevan or dysfunction (Primary Dx); Nutcracker phenomenon of renal vein; Vaginal dryness; Pelvic congestion; Acute constipation; Postmenopausal atrophic vaginitis; Urethral caruncle; Myalgia Start: 06-28-2024 End: 06-28-2024 ambulatory [facility] Start: 06-21-2024 End: 06-21-2024 ambulatory [facility] Start: 06-15-2024 End: 06-15-2024 ambulatory [facility] Start: 06-06-2024 End: 06-07-2024 Telephone encounter Augustina Vargas MD Work Phone: Gynecology Comment on above: botox auth Start: 06-04-2024 End: 06-07-2024 Telephone encounter Augustina Vargas MD Work Phone: [facility] Comment on above: Patient Question Start: 06-03-2024 End: 06-03-2024 Bamboo flowsheet Tessa Steven DO Work Phone: [facility] Start: 06-03-2024 End: 06-03-2024 Bamboo flowsheet Tessa Steven DO Work Phone: [facility] Start: 06-03-2024 End: 06-03-2024 ambulatory TESSA STEVEN Not Available Start: 06-03-2024 End: 06-03-2024 Office outpatient visit 25 minutes Tessaibrahima Steven Work Phone: [facility] Comment on above: Pulmonary nodule (Pr imary Dx) Start: 05-28-2024 End: 08-18-2024 Telephone encounter Augustina [...] Start: 05-10-2024 End: 05-10-2024 ambulatory TESSA STEVEN [facility] Start: 04-26-2024 ambulatory AMMON LUCAS Facility :[facility] Start: 04-26-2024 End: 04-26-2024 Subsequent hospital visit by physician [facility] Radiology Comment on above: 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] Start: 04-21-2024 Telephone encounter Jesús tony MD Work Phone: Urology Start: 04-12-2024 Patient Msg [facility] Provider Mary Ann gy Comment on above: Appointment for Pelv ic Pain, pelvic floor disorder Start: 04-07-2024 End: 04-07-2024 Patient encounter procedure Chip Carr MD Work Phone: Urology Comment on above: Encounter for afterc are following kidney transplant (Primary Dx); Malnutrition of moderate degree (HCC) Start: 04-07-2024 End: 04-07-2024 ambulatory AMMON LUCAS Facility:[facility] Start: 03-05-2024 End: 03-05-2024 Evaluation and management of inpatient AMMON LUCAS Facility:[facility] Start: 03-02-2024 End: 03-05-2024 Evaluation and management of inpatient CHIP CARR Facility:[facility] Start: 02-19-2024 End: 02-19-2024 Patient encounter procedure Chip Carr MD Work Phone: Urology Comment on above: 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) Start: 02-19-2024 End: 02-19-2024 ambulatory Chip Carr MD Work Phone: Urology Start: 02-19-2024 End: 02-19-2024 Admission to establishment [facility] 9 Work Phone: Pre Anesthesia Start: 02-19-2024 End: 02-19-2024 Anesthesia consultation [facility] 9 Work Phone: Pre Anesthesia Comment on above: Preop examination (P rimary Dx); 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); [place]'s syndrome; Other hyperlipidemia; Ovarian varices; Nutcracker phenomenon of renal vein; Narcotic drug use Start: 02-19-2024 End: 02-19-2024 Preprocedural examination done Pac Main Work Phone: [facility] Work Phone: Start: 02-19-2024 Encounter for other preprocedural examination CHIP CARR [facility] Start: 02-17-2024 ambulatory AMMON LUCAS [facility] Start: 02-10-2024 End: 02-10-2024 ambulatory SARAH GODWIN [facility] Start: 01-29-2024 End: 01-29-2024 ambulatory TESSA STEVEN Not Available Start: 01-16-2024 End: 01-16-2024 ambulatory TESSA STEVEN [facility] Start: 01-13-2024 Telephone encounter Rina eagle MD [...] encounter status Lisa Fox MD Work Phone: [facility] Start: 12-18-2023 End: 12-18-2023 ambulatory AMMON LUCAS Facility:[facility] Start: 12-18-2023 End: 12-18-2023 Office outpatient new [...] Dx) Start: 12-11-2023 Telephone encounter No Pcp APPLICATION SUPPORT [facility] Comment on above: Patient Question Start: 12-03-2023 End: 12-03-2023 ambulatory TESSA STEVEN Not Available Start: 12-02-2023 End: 12-02-2023 Patient encounter procedure Alex Ramirez PA-C Work Phone: [facility] Comment on above: Submandibular gland swelling (Primary Dx); Chronic sialoadenitis Start: 12-02-2023 End: 12-02-2023 ambulatory ALEX RAMIREZ [facility] Start: 11-24-2023 End: 11-24-2023 Evaluation and management of inpatient YEN [facility] Start: 11-24-2023 End: 11-24-2023 Evaluation and management of inpatient SARAH M [facility] Start: 11-20-2023 Telephone encounter Sarah Godwin MD Work Phone: [facility] Start: 11-12-2023 End: 11-12-2023 ambulatory SARAH Longoria [facility] Start: 11-12-2023 Encounter for other preprocedural examination SARAH [facility] Start: 11-11-2023 End: 11-11-2023 ambulatory CHIP HARTTEMAJEFF Facility:[facility] Start: 11-05-2023 End: 11-05-2023 ambulatory PAGE BUCHANAN Facility:[facility] Start: 10-08-2023 End: 10-08-2023 ambulatory Ammon Lucas Other [facility] Other Start: 10-08-2023 Tele[address] Lucas [facility] Start: 09-30-2023 End: 09-30-2023 ambulatory SARAH Longoria [facility] Start: 09-01-2023 End: 09-01-2023 ambulatory Ammon Lucas Other [facility] Other Start: 09-01-2023 Office outpatient vi sit [address] [facility] Start: 08-22-2023 Telephone encounter No Pcp APPLICATION SUPPORT [facility] Comment on above: Appointment Start: 07-29-2023 End: 07-29-2023 ambulatory Ammon Lance Other [facility] Other Start: 07-29-2023 Office outpatient vi sit [address] [facility] Start: 07-02-2023 End: 07-02-2023 ambulatory Ammon Lance Other [facility] Other Start: 07-02-2023 Office outpatient vi sit [address] [facility] Start: 06-10-2023 End: 06-10-2023 ambulatory Ammon Lance Other [facility] Other Start: 06-10-2023 Telephone encounter Ammon Lance [facility] Start: 06-06-2023 End: 06-06-2023 ambulatory Ammon Lance Other [facility] Other Start: 06-06-2023 Office outpatient vi sit [address] [facility] Start: 06-05-2023 End: 06-05-2023 ambulatory Ammon Lance Other [facility] Other Start: 06-05-2023 Telephone encounter Ammon Lance [facility] Start: 05-30-2023 End: 05-30-2023 ambulatory Ammon Lance Other [facility] Other Start: 05-30-2023 Telephone encounter Ammon Lance [facility] Start: 05-29-2023 End: 05-29-2023 ambulatory Ayaka Joyner Other [facility] Other Start: 05-29-2023 Office outpatient vi sit 25 minutes Ayaka Joyner [facility] Start: 05-09-2023 End: 05-09-2023 ambulatory Ammon Lucas Other [facility] Other Start: 05-09-2023 [address] Lucas [facility] Start: 02-22-2023 End: 02-22-2023 ambulatory NAVEEN KAHN Facility:[facility] Start: 02-18-2023 End: 02-18-[address] BOSSMAN CEVALLOS . Facility:[facility] Start: 02-11-2023 End: 02-11-2023 ambulatory Ayaka Joyner Other [facility] Other Start: 02-11-2023 Office outpatient vi sit 15 minutes Ayaka Joyner [facility] Start: 02-11-2023 Telephone encounter Ammon Lucas [facility] Start: 11-25-2022 End: 11-25-[address] BOSSMAN CEVALLOS . Facility:[facility] Start: 11-22-2022 End: 11-22-2022 ambulatory Ayaka Joyner Other [facility] Other Start: 11-22-2022 Office outpatient vi sit 25 minutes Ayaka Joyner [facility] Start: 11-02-2022 End: 11-02-2022 ambulatory Ammon Lucas Other [facility] Other Start: 11-02-2022 Telephone encounter [address]mon Lucas [facility] Start: 11-01-2022 End: 11-02-2022 ambulatory NONE LISTED REQUEST Facility:[facility] Start: 10-31-2022 End: 10-31-2022 ambulatory Ammon Lucas Other [facility] Other Start: 10-31-2022 Office outpatient vi sit [address] [facility] Start: 08-14-2022 Gynecological examin ation normal Ammon Lucas Other [facility] Other Start: 08-14-2022 Pre-procedure evalua tion check Ammon Lucas Other [facility] Other Start: 08-13-2022 End: 08-14-2022 ambulatory Boogie Mina Facility:[facility] Start: 07-28-2022 End: 07-28-2022 ambulatory Ayaka Joyner Other [facility] Other Start: 07-28-2022 Office outpatient vi sit 25 minutes Ayaka Joyner [facility] Start: 09-14-2021 End: 09-14-2021 ambulatory Manuela Aly Other [facility] Other Start: 09-14-2021 Office outpatient vi sit 15 minutes Manuela Sheeba [facility] Start: 07-29-2021 Office outpatient vi sit 15 minutes Manuela Sheeba [facility] Start: 05-21-2018 End: 05-21-2018 Patient encounter Joel Monroe Facility:[facility] Start: 05-19-2018 End: 05-20-2018 Patient encounter Joel Monroe Facility:[facility] Procedures Date Procedure Procedure Detail Performing Clinician Start: 07-26-2024 Follow-up visit Follow-up CARA GODWIN Start: 05-27-2024 Urnls dip stick/tabl et rgnt auto w/o microscopy Bulk Order Provider Start: 04-26-2024 Creatinine [Mass/vol ume] in Serum or Plasma [facility] Provider Start: 03-02-2024 End: 06-02-2024 History of renal transplant S/P renal autotransplant Chip Carr MD Work Phone: Start: 02-19-2024 Urnls dip stick/tabl et rgnt auto w/o microscopy Bulk Order Provider Start: 02-19-2024 Antibody screen CHIP CARR Comment on above: Order Comment: Speci men Type: BLOOD SPECIMENOrdering Facility: [facility] Address: [address] [place] [address] Performed By: #### T [id number] ####CC MAIN BLOOD BANKCLIA [id number] [address] [place] Start: 12-25-2023 Urnls dip stick/tabl et rgnt auto w/o microscopy Bulk Order Provider Start: 12-22-2023 Urnls dip stick/tabl et rgnt auto w/o microscopy Bulk Order Provider Start: 09-29-[address] ack DO Work Phone: Start: 08-10-2018 General examination of patient Ammon [...] 60 yrs+ (1 - 1-dose 75+ series) [facility] Start: 07-23-2028 Screening for malignant neoplasm of colon [facility] Start: 03-04-2027 Diabetes Screening Diabetes Screening [facility] Start: 02-18-2027 Diabetes Screening Diabetes Screening [facility] Start: 06-24-2026 Diabetes Screening Diabetes Screening [facility] Start: 07-26-2025 Adult BMI Screening Adult BMI Screening [facility] Start: 07-26-2025 Tobacco Screening Tobacco Screening [facility] Start: 07-26-2025 End: 07-26-2025 Patient encounter procedure 07/26/2025 10:15 AM EDT Office Visit [facility] [address] [place] [address], [address] [place] [address] Sarah Godwin MD [address] [facility] [address] [place] [address] [facility] Start: 06-02-2025 End: 06-02-2025 Patient encounter procedure 06/02/2025 8:45 AM EDT Office Visit [facility] [address] [place] [address] Tessa Steven, [address] [facility] [place] [address] [facility] Start: 05-10-2025 Screening for malignant neoplasm of lung Lung Cancer Screening [facility] Start: 05-02-2025 End: 06-03-2025 CT Chest WO contrast CT chest wo IV contrast Imaging Routine Pulmonary nodule Expected: 05/02/2025, [facility]: Comment on above: Expected: 05/02/2025, Expires: Start: 01-15-2025 Screening for malignant neoplasm of lung Lung Cancer Screening [facility] Start: 12-08-2024 End: 12-08-2024 Patient encounter procedure 12/08/2024 4:00 PM EST Office Visit Gynecology [address] [place] [address] Augustina Vargas MD [address] [place] [address] [facility] Comment on above: TPI Start: 12-02-2024 Adult BMI Screening Adult BMI Screening [facility] Start: 12-02-2024 Tobacco Screening Tobacco Screening [facility] Start: 11-12-2024 Adult BMI Screening Adult BMI Screening [facility] Start: 11-12-2024 Tobacco Screening Tobacco Screening [facility] Start: 10-05-2024 End: 10-05-2024 Patient encounter procedure 10/05/2024 2:30 PM EST Office Visit Gynecology [address] [place] [address] Augustina Vargas MD [address] [place], [place] [id number] put her on my schedule oct 05, 2024 at 2:30pm for botox Gynecology Comment on above: put her on my schedule oct 05, 2024 at 2:30pm for botox Start: 09-29-2024 Screening for malignant neoplasm of breast Mammogram [facility] Start: 09-15-2024 End: 09-15-2024 Patient encounter procedure 09/15/2024 3:[address] [facility] Physical Therapy [address] [place] [address] 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 [facility] Physical Therapy Start: 09-08-2024 End: 09-08-2024 Patient encounter procedure 09/08/2024 3:[address] [facility] Physical Therapy [address] [place] 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 [facility] Physical Therapy Start: 09-01-2024 End: 09-01-2024 Patient encounter procedure 09/01/2024 9:[address] [facility] Physical Therapy [address] [place] [phone] 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 PTA needs medicare recheck with janett at this appt [facility] Physical Therapy Comment on above: needs medicare recheck with janett at this appt Start: 08-27-2024 End: 08-27-2024 ambulatory 08/27/2024 10:30 AM EST [facility] [address] [address] Augustina Vargas MD [address] [place] [address] 3 MO F/U - TVST ok per Dr. Vargas Gynecology Comment on above: 3 MO F/U - TVST ok per Dr. Vargas Start: 08-27-2024 End: 08-27-2024 Patient encounter procedure 08/27/2024 10:30 AM EST Office Visit Gynecology [address] [place] [id number] Augustina Vargas MD [address] [place] [address] 3 MO F/U - TVST ok per Dr. Vargas Gynecology Comment on above: 3 MO F/U - TVST ok per Dr. Vargas Start: 08-23-2024 End: 08-23-2024 Patient encounter procedure 08/23/2024 1:[address] [facility] Physical Therapy [address] [place] [phone] 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 PTA needs medicare recheck with janett at next appt [facility] Physical Therapy Comment on above: needs medicare recheck with janett at next appt Start: 08-17-2024 End: 08-17-2024 ambulatory 08/17/2024 5:00 PM EST [facility] [address] [place] [address] Augustina Vargas MD [address] [place] [address] 6 WEEK FU Gynecology Comment on above: 6 WEEK FU Start: 08-09-2024 End: 08-09-2024 Patient encounter procedure 08/09/2024 10:[address] [facility] Physical Therapy [address] [place] 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 [facility] Physical Therapy Start: 07-06-2024 End: 07-06-2024 Patient encounter procedure 07/06/2024 10:30 AM EDT Office Visit Gynecology [address] [place] [address] Augustina Vargas MD [address] [place] [address] Botox Gynecology Comment on above: Botox Start: 06-24-2024 Screening for malignant neoplasm of lung Lung Cancer Screening [facility] Start: 06-15-2024 Annual Wellness Visit (Medicare) Annual Wellness Visit (Medicare) [facility] Start: 06-13-2024 COVID-19 Vaccine ( season) COVID-19 Vaccine () [facility] Start: 06-13-2024 COVID-19 Vaccine () COVID-19 Vaccine () [facility] Start: 06-13-2024 Covid-19 Vaccine () Covid-19 Vaccine () [facility] Start: 06-13-2024 Influenza vaccination [facility] Start: 05-27-2024 End: 05-27-2024 Patient encounter procedure Gynecology Comment on above: new cpp add on- follow up af ter [facility] appt Start: 05-13-2024 Influenza vaccination Flu vaccine (#1) Tani Bradley [facility] Start: 04-26-2024 End: 04-26-2024 Patient encounter procedure Radiology Comment on above: 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 ORDER SCANNED POST R ENAL AUTOTRANSPLANTATION OTHER DISORDER OF KIDNEY Start: 04-22-2024 End: 04-22-2024 ambulatory 04/22/2024 3:00 PM EDT [facility] Urology [address] [address] [place] [address] [place] [id number] virtual/per staff message Urology Comment on above: virtual/per staff message Start: 03-02-2024 End: 03-02-2024 Admission to same day surgery center 03/02/2024 7:30 AM EDT - 03/02/2024 5:03 PM EDT Surgery Admitting [address] [place] [address] [place] [address] [place], [place] [address] [address] 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 Admitting Comment on above: ROBOTIC SINGLE PORT LAPAROSCOPIC RENAL A UTOTRANSPLANTATION REIMPLANTATION OF KIDNEY Start: 03-02-2024 Subsequent hospital visit by physician 03/02/2024 7:30 AM EDT Hospital Encounter Admitting [address] [place] [address] Chip Carr MD [address] [place] [address] 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] Admitting [...] coagulation profile Expected: 02/25/2024 (Approximate), Expires: 05/26/2024 [facility] Comment on above: Expected: 02/25/2024 (Approximate), Expi res: 05/26/2024 Start: 02-25-2024 End: 05-26-2024 CBC W Auto Differential panel - Blood COMPLETE BLOOD COUNT AND DIFFERENTIAL Lab Routine Nutcracker phenomenon of renal vein Expected: 02/25/2024 (Approximate), Expires: 05/26/2024 [facility] Work Phone: Comment on above: Expected: 02/25/2024 (Approximate), Expi res: 05/26/2024 Start: 02-25-2024 End: 05-26-2024 Comprehensive metabolic 2000 panel - Serum or Plasma COMPREHENSIVE METABOLIC PANEL Lab Routine Nutcracker phenomenon of renal vein Expected: 02/25/2024 (Approximate), Expires: 05/26/2024 [facility] Comment on above: Expected: 02/25/2024 (Approximate), Expi res: 05/26/2024 Start: 02-25-2024 End: 05-26-2024 CONFIRM BLOOD TYPE CONFIRM BLOOD TYPE Blood Bank Routine Nutcracker phenomenon of renal vein Expected: 02/25/2024 (Approximate), Expires: 05/26/2024 [facility] Comment on above: Expected: 02/25/2024 (Approximate), Expi res: 05/26/2024 Start: 02-25-2024 End: 12-29-2024 ECG COMPLETE ECG COMPLETE ECG Routine Nutcracker phenomenon of renal vein Expected: 02/25/2024 (Approximate), Expires: 12/29/2024 [facility] Comment on above: Expected: 02/25/2024 (Approximate), Expi res: 12/29/2024 Start: 02-25-2024 End: 05-26-2024 PT panel - Platelet poor plasma by Coagulation assay PROTHROMBIN TIME Lab Routine Nutcracker phenomenon of renal vein Expected: 02/25/2024 (Approximate), Expires: 05/26/2024 [facility] Comment on above: Expected: 02/25/2024 (Approximate), Expi res: 05/26/2024 Start: 02-25-2024 End: 05-26-2024 TYPE AND SCREEN,30 DAY TYPE AND SCREEN,30 DAY Blood Bank Routine Nutcracker phenomenon of renal vein Expected: 02/25/2024 (Approximate), Expires: 05/26/2024 [facility] Comment on above: Expected: 02/25/2024 (Approximate), Expi res: 05/26/2024 Start: 02-19-2024 End: 02-19-2024 ambulatory 02/19/2024 2:30 PM EDT Results Only Cardiology [address] [address] PRE OP ELTEMAMY ~ 03/02 Cardiology Comment on above: PRE OP ELTEMAMY ~ 03/02 Start: 02-19-2024 End: 02-19-2024 Patient encounter procedure Admitting Comment on above: PRE OP ELTEMAMY ~ 03/02 Start: 02-19-2024 End: 02-19-2024 Anesthesia consultation 02/19/2024 1:20 PM EDT PAT Pre Anesthesia [address] [address] [address] [place] [address] PRE OP ELTEMAMY ~ 03/02 Pre Anesthesia Comment on above: PRE OP ELTEMAMY ~ 03/02 Start: 02-10-2024 End: 02-10-2024 Patient encounter procedure 02/10/2024 9:45 AM EDT Office Visit [facility] [address] [place] [address] Sarah Godwin MD [address] [facility] [address] [place] [address] [facility] Start: 12-19-2023 End: 03-19-2024 Basic metabolic 2000 panel - Serum or Plasma BASIC METABOLIC PNL Lab Routine Nutcracker phenomenon of renal vein Preop testing Expected: 12/19/2023 (Approximate), Expires: 03/19/2024 [facility] Work Phone: Comment on above: Expected: 12/19/2023 (Approximate), Expi res: 03/19/2024 Start: 12-19-2023 End: 03-19-2024 CBC W Auto Differential panel - Blood CBC + DIFF Lab Routine Nutcracker phenomenon of renal vein Preop testing Expected: 12/19/2023 (Approximate), Expires: 03/19/2024 [facility] Work Phone: Comment on above: Expected: 12/19/2023 (Approximate), Expi res: 03/19/2024 Start: 12-19-2023 End: 03-19-2024 CONFIRM BLOOD TYPE CONFIRM BLOOD TYPE Blood Bank Routine Nutcracker phenomenon of renal vein Preop testing Expected: 12/19/2023 (Approximate), Expires: 03/19/2024 [facility] Work Phone: Comment on above: Expected: 12/19/2023 (Approximate), Expi res: 03/19/2024 Start: 12-19-2023 End: 03-19-2024 PT panel - Platelet poor plasma by Coagulation assay PROTHROMBIN TIME/PT Lab Routine Nutcracker phenomenon of renal vein Preop testing Expected: 12/19/2023 (Approximate), Expires: 03/19/2024 [facility] Work Phone: Comment on above: Expected: 12/19/2023 (Approximate), Expi res: 03/19/2024 Start: 12-19-2023 End: 03-19-2024 STAPH AUREUS PCR STAPH AUREUS PCR Lab Routine Nutcracker phenomenon of renal vein Preop testing Expected: 12/19/2023, Expires: 03/19/2024 [facility] Work Phone: Comment on above: Expected: 12/19/2023, Expires: Start: 12-19-2023 End: 03-19-2024 TYPE AND SCREEN,30 DAY TYPE AND SCREEN,30 DAY Blood Bank Routine Nutcracker phenomenon of renal vein Preop testing Expected: 12/19/2023 (Approximate), Expires: 03/19/2024 [facility] Work Phone: Comment on above: Expected: 12/19/2023 (Approximate), Expi res: 03/19/2024 Start: 12-02-2023 End: 12-02-2023 Patient encounter procedure 12/02/2023 12:45 PM EST Office Visit [facility] [address] [place] [address] Alex Ramirez, PA-C [address] [place] [address] [address] [place] [address] [facility] Start: 11-24-2023 End: 11-24-2023 Admission to same day surgery center 11/24/2023 12:15 PM EST - 11/24/2023 2:15 PM EST Surgery [address] [phone] Sarah Godwin MD [address] [place] [address] [place] [address] SIALENDOSCOPY RIGHT SUBMANDIBULAR DUCT [22781 (CPT )] [facility] Comment on above: SIALENDOSCOPY RIGHT SUBMANDIBULAR DUCT [ 60243 (CPT )] Start: 11-24-2023 Subsequent hospital visit by physician 11/24/2023 12:15 PM EST Hospital Encounter [facility] [address] [place] [phone] Sarah Godwin MD [address] [place] [phone] [facility] Start: 11-24-2023 End: 11-24-2023 Unlisted px salivary glands/ducts SIALENDOSCOPY Submandibular gland swelling Chronic sialoadenitis 11/24/2023 12:15 PM EST [facility] Start: 10-13-2023 Advance Directive Discussion Advance Directive Discussion [facility] Start: 10-13-2023 Behavioral Health Screening Behavioral Health Screening [facility] Start: 10-13-2023 Depression Assessment Depression Assessment [facility] Start: 06-13-2023 COVID-19 Vaccine ( season) COVID-19 Vaccine () [facility] Start: 06-13-2023 Influenza vaccination [facility] Start: 2022 Fall Risk Screening Fall Risk Screening [facility] Start: 2022 Pneumococcal 65+ years Vaccine (2 of 2 - PCV) Pneumococcal 65+ years Vaccine (2 of 2 - PCV) [facility] Start: 2022 Pneumococcal Vaccine: 65+ (1 of 1 - PCV) Pneumococcal Vaccine: 65+ (1 of 1 - PCV) [facility] Start: 2022 Pneumococcal Vaccine: 65+ (2 of 2 - PCV) Pneumococcal Vaccine: 65+ (2 of 2 - PCV) [facility] Start: 2022 Pneumococcal Vaccine: 65+ Years (2 of 2 - PCV) Pneumococcal Vaccine: 65+ Years (2 of 2 - PCV) [facility] Start: 2022 Screening for osteoporosis Bone Density Screening [facility] Start: 06-30-2021 Pneumococcal Vaccine: 65+ (2 of 2 - PCV) Pneumococcal Vaccine: 65+ (2 of 2 - PCV) [facility] Start: 2017 Respiratory Syncytial Virus (RSV) or age 60 yrs+ (1 - 1-dose 60+ series) Respiratory Syncytial Virus (RSV) or age 60 yrs+ (1 - 1-dose 60+ series) [facility] Start: 2017 RSV Vaccine (1 - 1-dose 60+ series) RSV Vaccine (1 - 1-dose 60+ series) [facility] Start: 2017 RSV Vaccine (1 - Risk 60-74 years 1-dose series) RSV Vaccine (1 - Risk 60-74 years 1-dose series) [facility] Start: 2012 Screening for osteoporosis DEXA (modify frequency per FRAX score) [facility] Start: 2007 Shingrix Vaccine (1 of 2) Shingrix Vaccine (1 of 2) [facility] Start: 2002 Lipid panel Lipid Screening [facility] Start: 2002 Screening for malignant neoplasm of colon [facility] Start: 1997 Lipid panel Lipids [facility] Start: 1997 Screening for malignant neoplasm of breast [facility] Start: 1976 DTaP,Tdap and Td Vaccines (1 - Tdap) DTaP,Tdap and Td Vaccines (1 - Tdap) [facility] Start: 1976 DTaP/Tdap/Td vaccine (1 - Tdap) DTaP/Tdap/Td vaccine (1 - Tdap) [facility] Start: 1976 Urine microalbumin profile DTaP,Tdap,Td Vaccine (1 - Tdap) [facility] Start: 1975 Anxiety Screening Anxiety Screening [facility] Start: 1975 Depression Screening Depression Screening [facility] Start: 1975 Hepatitis C screening [facility] Start: 1969 Depression Screen Depression Screen [facility] Start: 1969 Depression Screening Depression Screening [facility] Start: 1968 Screening for malignant neoplasm of cervix Cervical Cancer Screening [facility] Start: 03-04-1958 Covid-19 Vaccine (#1) Covid-19 Vaccine (#1) [facility] Start: 1957 Medicare Annual Wellness Visit Medicare Annual Wellness Visit [facility] Start: 1957 Screening for malignant neoplasm of colon [facility] CYSTOSCOPY WHI CYSTOSCOPY [facility]I P rocedures Routine High-tone pelvic floor dysfunction 1 Occurrences starting 08/18/2024 [facility] Work Phone: Comment on above: 1 Occurrences starting 08/18/2024 End: 12-18-2024 ECG COMPLETE ECG COMPLETE ECG Routine Nutcracker phenomenon of renal vein Preop testing 1 Occurrences starting 12/19/2023 until 12/18/2024 [facility] Work Phone: Comment on above: 1 Occurrences starting 12/19/2023 until 12/18/2024 Injection single/oven dauber trigger point 1/2 muscles TRIGGER POINT INJECTION MULTI 1-2 MUSCLE GR Procedures Routine Myalgia Ordered: 07/06/2024 [facility] Work Phone: Comment on above: Ordered: 07/06/2024 URINALYSIS, REFLEX MICROSCOPIC URINALYSIS, REFLEX MICROSCOPIC Lab Routine Screening for genitourinary condition Ordered: 05/27/2024 [facility] Work Phone: Comment on above: Ordered: 05/27/2024 End: 12-11-2024 US Renal artery US RENAL ARTERY [facility] Lab Routine Nutcracker phenomenon of renal vein 1 Occurrences starting 12/12/2023 until 12/11/2024 [facility] Work Phone: Comment on above: 1 Occurrences starting 12/12/2023 until 12/11/2024 End: 12-16-2024 US Vein - bilateral US VENOUS INCOMPETENCY [facility] Lab Routine Nutcracker phenomenon of renal vein 1 Occurrences starting 12/17/2023 until 12/16/2024 [facility] Work Phone: Comment on above: 1 Occurrences starting 12/17/2023 until 12/16/2024 End: 12-16-2024 US.doppler Renal vessels - bilateral US RENAL VENOUS [facility] V[facility] Lab Routine Nutcracker phenomenon of renal vein 1 Occurrences starting 12/17/2023 until 12/16/2024 [facility] Work Phone: Comment on above: 1 Occurrences starting 12/17/2023 until 12/16/2024 [facility] Immunizations Immunization Date Immunization Notes Care Provider Fa [facility] 07-20-2021 influenza virus vaccine, split virus (incl. purified surface antigen) Ammon Lucas Other [facility] Other 07-20-2021 influenza, injectabl e, quadrivalent, preservative free Tessa Steven DO Work Phone: [facility] 07-20-2021 influenza virus vaccine, unspecified formulation Sarah Godwin MD Work Phone: [facility] 09-13-2020 zoster vaccine recombinant Tessa Tenisha DO Work Phone: [facility] 07-14-2020 influenza, injectabl e, quadrivalent, preservative free Tessa Tenisha DO Work Phone: [facility] 07-07-2020 zoster vaccine recombinant Tessa Tenisha DO Work Phone: [facility] 06-30-2020 pneumococcal polysaccharide vaccine, 23 valent Tessa Tenisha DO Work Phone: [facility] 08-11-2019 influenza virus vaccine, split virus (incl. purified surface antigen) Ammon Lucas Other [facility] Other 08-11-2019 influenza, injectabl e, quadrivalent, preservative free Tessa Tenisha DO Work Phone: [facility] 08-19-2018 influenza, injectabl e, quadrivalent, preservative free Tessa Tenisha DO Work Phone: [facility] Payers Date Payer Category Payer Unknown AARP AARP [id number] 2023-Present [address] [place] [address] [id number] 2023 Managed Care Other (unspecified) [facility] [id number] 2023 Unknown [id number] 2.16.840.1.731270.19 2022 Medicare [id number] .[id number] 2018 Private Health Insurance 1959 Medicare [id number] 2.16.840.1.123894.19 1959 Private Health Insurance [id number] 1959 Self-pay 1957 Unknown [id number] 2.16.840.1.117379.3.579.2 .593 1957 Unknown [id number] 2.16.840.1.548193.3.579.2 .593 1957 Unknown [id number] 2.16.840.1.092738.3.579.2 .593 1957 Unknown [id number] 2.16.840.1.695326.3.579.2 .593 1957 Unknown [id number] 2.16.840.1.616555.3.579.2 .1286 1957 Unknown [id number] 2.16.840.1.072977.3.579.2 .1286 1957 Unknown [id number] 2.16.840.1.738213.3.579.2 .1286 1957 Unknown [id number] 2.16.840.1.859432.3.579.2 .1259 1957 Unknown [id number] 2.16.840.1.899545.3.579.2 .1259 1957 Unknown [id number] 2.16.840.1.810477.3.579.2 .1259 1957 Unknown [id number] 2.16.840.1.715184.3.579.2 .1286 1957 Unknown [id number] 2.16.840.1.280937.3.579.2 .1286 1957 Unknown [id number] 2.16.840.1.807545.3.579.2 .1286 1957 Unknown [id number] 2.16.840.1.474661.3.579.2 .1286 1957 Unknown [id number] 2.16.840.1.280740.3.579.2 .1286 1957 Unknown [id number] 2.16.840.1.290536.3.579.2 .1286 1957 Unknown [id number] 2.16.840.1.634481.3.579.2 .1286 1957 Unknown [id number] 2.16.840.1.307537.3.579.2 .1286 1957 Unknown [id number] 2.16.840.1.780279.3.579.2 .173 1957 Unknown [id number] 2.16.840.1.621784.3.579.2 .173 1957 Unknown [id number] 2.16.840.1.843009.3.579.2 .173 1957 Unknown [id number] 2.16.840.1.163518.3.579.2 .173 1957 Unknown [id number] 2.16.840.1.655856.3.579.2 .173 1957 Unknown [id number] 2.16.840.1.791923.3.579.2 .173 1957 Unknown [id number] 2.16.840.1.437642.3.579.2 .173 1957 Unknown [id number] 2.16.840.1.801128.3.579.2 .173 1957 Unknown [id number] 2.16.840.1.282945.3.579.2 .173 1957 Unknown [id number] 2.16.840.1.266282.3.579.2 .173 1957 Unknown [id number] 2.16.840.1.220301.3.579.2 .173 1957 Unknown [id number] 2.16.840.1.742826.3.579.2 .173 Unknown [id number] 2.16.840.1.420393.3.579.2 .593 Social History Date Type Detail Facility Start: 02-08-2020 End: 01-29-2024 Sex Assigned At [facility] Tobacco smoking stat [facility] Tobacco smoking consumption unknown [facility] Start: 1955 Sex Assigned At Not on file [facility] Start: 07-17-2023 End: 06-03-2024 Tobacco smoking status LAIS Ex-smoker [facility] Start: 02-07-1970 End: 10-13-2010 History of tobacco use Current smoker [facility] Start: 02-07-1970 End: 10-13-2010 History of tobacco use Cigarette Smoker [facility] Start: 07-17-2023 End: 01-29-2024 Cigarettes smoked current (pack per day) - Reported 1 [facility] History of tobacco use Passive smoker [facility] Start: 07-17-2023 End: 06-03-2024 Tobacco use and exposure Smokeless tobacco non-user [facility] Start: 11-12-2023 End: 07-26-2024 Alcohol intake Current drinker of alcohol (finding) [facility] Frequency of Alcohol Consumption Never [facility] Start: 07-17-2023 Alcohol Comment 2 per month [facility] Start: 11-05-2023 End: 07-06-2024 Alcohol intake Ex-drinker (finding) [facility] Start: 05-18-2015 Sex Female (finding) [facility] Start: 06-02-2024 End: 06-03-2024 Alcoholic beverage intake Lifetime non-drinker (finding) [facility] Start: 12-02-2023 Alcohol Comment caffeine intak e: 2-3 cups per day [facility] NEGATED: Highlighted rowStart: VENUF History of tobacco use Passive smoker [facility] Medical Equipment Procedure Code Equipment Code Equipment Origin al Text Equipment Identifier Dates Stent Inlay 4.7f r 2 Pigtail Curve Taper Blue Hydrophilic 14cm Ureteral - [id number] Start: 03-02-2024 Clinical Notes 07-29-2021 to 09-21-2024 Addendum Note - Alysha Torres RN - 09/21/2024 2:45 PM ESTAddendum Note - Alysha Torres RN - 09/21/2024 2:45 PM ESTTelephone Encounter - Alysha Torres RN - 09/21/2024 2:41 PM EST Note Date & Type Note Facility 09-21-2024 Note Addended by: ALYSHA MEIER on: 09/21/2024 02:45 PM Modules accepted: Orders [facility] 09-21-2024 Miscellaneous Notes Addended by: ALYSHA TORRES on: 09/21/2024 02:45 PM Modules accepted: Orders [facility] 08/17/2024 Assessment: Encounter Diagnosis ICD-10-CM 1. High-tone pelvic floor dysfunction M62.89 cyclobenzaprine (FLEXERIL) 5 mg tablet onabotulinum toxin type A 100 Units injection (BOTOX) Plan: 1) fu botox and abd TPI 10/05/24 2) continue flexeril vaginally Total Time Spent: 5-10 minutes Augustina Vargas MD Pt fyi - broke pelvis in four places about 3 weeks ago. Had to cancel all future PT appts and will need new order for end of end of November/beginning of December. Also had to reschedule TPI to end november. Pt concerned and wanted to insure was aware of current situation. documented in this encounter [facility] 09-21-2024 Telephone encounter Note NICK 08/17/2024 Assessment: Encounter Diagnosis ICD-10-CM 1. High-tone pelvic floor dysfunction M62.89 cyclobenzaprine (FLEXERIL) 5 mg tablet onabotulinum toxin type A 100 Units injection (BOTOX) Plan: 1) fu botox and abd TPI 10/05/24 2) continue flexeril vaginally Total Time Spent: 5-10 minutes Augustina Vargas MD [facility] 09-21-2024 Telephone encounter Note Pt fyi - broke pelvis in four places about 3 weeks ago. Had to cancel all future PT appts and will need new order for end of end of November/beginning of December. Also had to reschedule TPI to end november. Pt concerned and wanted to insure Dr was aware of current situation. [facility] 09-01-2024 Telephone encounter Note Refill(s) request: Requested Prescriptions Pending Prescriptions Disp Refills cyclobenzaprine (FLEXERIL) 5 mg tablet [Pharmacy Med Name: cyclobenzaprine 5 mg tablet] 90 tablet 4 Sig: take1 tablet BY MOUTH at bedtime as needed Called patient. Left voice message and notified there is a valid prescription waiting for her to forklift picker at the pharmacy on file. Request from: [...] Center 10/05/2024 2:30 PM Augustina Vargas MD [facility] A Bldg Appointment scheduled: As listed above Action taken: Refill already approved by provider. Danae Colindres RN September 01, 2024 12:05 PM [facility] 09-01-2024 Miscellaneous Notes Refill(s) request: Requested Prescriptions Pending Prescriptions Disp Refills cyclobenzaprine (FLEXERIL) 5 mg tablet [Pharmacy Med Name: cyclobenzaprine 5 mg tablet] 90 tablet 4 Sig: take1 tablet BY MOUTH at bedtime as needed Called patient. Left voice message and notified there is a valid prescription waiting for her to forklift picker at the pharmacy on file. Request from: [...] Center 10/05/2024 2:30 PM Augustina Vargas MD [facility] A Bldg Appointment scheduled: As listed above Action taken: Refill already approved by provider. Danae Colindres RN September 01, 2024 12:05 PM documented in this encounter [facility] 08-23-2024 Telephone encounter Note Called Guille Kaur to clarify that prescription is for Flexeril 5 mg tablets and to use 1 tablet at bedtime vaginally. Morenita Lopez RN [facility] 08-23-2024 Miscellaneous Notes Called Guille Kaur to clarify that prescription is for Flexeril 5 mg tablets and to use 1 tablet at bedtime vaginally. Morenita Lopez, RN Received call from pharmacy asking for clarification of directions for: cyclobenzaprine (FLEXERIL) 5 mg tablet States that direction says to use vaginally but prescription is for oral tablet Please advise: [facility] [id number] - [place] [address] - [address] - [phone] documented in this encounter [facility] 08-23-2024 Telephone encounter Note Received call from pharmacy asking for clarification of directions for: cyclobenzaprine (FLEXERIL) 5 mg tablet States that direction says to use vaginally but prescription is for oral tablet Please advise: [facility] [id number] [place] [address] - [address] [facility] - [phone] [facility] 08-19-2024 Telephone encounter Note Done Martinez Chang [facility] Work Phone: 08-19-2024 Miscellaneous Notes Done Martinez Chang Done Encounter Diagnosis ICD-10-CM 1. High-tone pelvic floor dysfunction M62.89 CYSTOSCOPY WHI Please put her on my schedule oct 05, 2024 at 2:30pm for botox, which is approved already Patient aware documented in this encounter [facility] 08-18-2024 Telephone encounter Note Done Encounter Diagnosis ICD-10-CM 1. High-tone pelvic floor dysfunction M62.89 CYSTOSCOPY WHI [facility] 08-17-2024 Note HNO ID: [id number] Author: AUGUSTINA VARGAS MD Service: ? Author [...] available appointment. Patient identified by and name. Zanyab Zaidi has consented to this telephone encounter. [...] Services (GI, urology, pain psych,PFPT) 1. PFPT [facility] 08-17-2024 History of Present illness Narrative CHRONIC [...] psych,PFPT) 1. PFPT documented in this encounter [facility] 08-17-2024 Telephone encounter Note Please put her on my schedule oct 05, 2024 at 2:30pm for botox, which is approved already Patient aware [facility] 07-26-2024 History of Present illness Narrative [facility] - ENT [address] [place] [address], [address] [place] [phone] SUBJECTIVE: Patient ID: Zaynab Zaidi is a [...] autotransplantation of her kidney on 03/02/2024 at [facility]. 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 Osteoporosis Pelvic congestion syndrome Peripheral vascular disease ([facility]) Seasonal allergies Submandibular gland swelling 11/12/2023 Visual impairment glasses Past Surgical History: Procedure Laterality Date CATARACT EXTRACTION Bilateral 2018 CHOLECYSTECTOMY COLONOSCOPY COLONOSCOPY N/A 07/23/2018 Performed by Frank Christine DO at [facility] DENTAL SURGERY 07/2013 implants Diagnostic cerebral angiogram N/A 03/31/2020 Performed by Melissa Morillo MD at [facility] DIAGNOSTIC VENOGRAM OF IVC AND ILEOCABLE, LEFT RENAL VEIN, SELECTIVE LEFT OVARIAN VEIN CONTRAST AND IVUS VENOGRAMS N/A 07/25/2023 Performed by Erendira Armijo DO at [facility] dilation rt submandibular duct and steroid irrigation Right 11/24/2023 Performed by Sarah Godwin MD at [facility]GERY 2019? KNEE CARTILAGE SURGERY MOLE REMOVAL 11/10/2023 right breast NEPHRECTOMY TRANSPLANTED ORGAN 03/02/2024 OTHER SURGICAL HISTORY 08/31/2020 cranial base ( cranial styloidectomy) 05/2020 also OTHER SURGICAL HISTORY 06/18/2023 venogram OTHER SURGICAL HISTORY 09/09/2023 DIagnostic venogram TUBAL LIGATION Vascular Invasive Diagnostic venogram with IVUS and the ability to measure pressure gradients Bilateral 06/18/2023 Performed by Erendira Armijo DO at [facility] Family History Problem Relation [...] or concerns: . Non-emergent messages received through [employer] may take up to 2 business days for a response. Scribe Statement: Scribed for and in the presence of Sarah Godwin MD by Laurne Stevens (scribe). Lauren Stevens 07/26/2024 10:56 AM [...] this chart were generated using voice recognition [employer] dictation software. Although every effort was made to ensure the accuracy of this automated commissary agent, some errors in commissary agent may have occurred. Yovana Veloz CNA 07/26/24 1024 documented in this encounter [facility] 07-26-2024 Instructions Neda Stevens - 07/26/2024 10:15 [...] or concerns: . Non-emergent messages received through [employer] may take up to 2 business days for a response. documented in this encounter [facility] 07-06-2024 Augustina Lawrence MD - 07/06/2024 11:13 AM EDT BOTOX [...] urinary incontinence (4.8%). documented in this encounter [facility] 07-06-2024 History of Present illness Narrative Images from the original note were not included. [facility] SECTION FOR CHRONIC PELVIC PAIN OUTPATIENT VISIT [...] Patient tolerated procedure well. OnabotulinumtoxinA: office provided LOT:[id number] EXP: 08/2026 PROCEDURE ABDOMINAL TRIGGER POINT INJECTIONS [...] 0.25% Bupivacaine 10 ML --- lot # [id number] EXP: 05/2026 documented in this encounter [facility] 07-06-2024 Note HNO ID: [id number] Author: AUGUSTINA VARGAS MD Service: ? Author Type: Physician Type: Progress Notes Filed: 07/06/2024 11:47 Note Text: [facility] SECTION FOR CHRONIC PELVIC PAIN OUTPATIENT VISIT [...] plan. Medical [place] (more content not included)... [facility] 06-07-2024 Telephone encounter Note Called pt; verified name/. Advised pt to use Flexeril vaginally, inserting as far as it will go at bedtime. Advised pt that it may cause drowsiness, but to a lesser degree when inserted vaginally vs. orally. Pt verbalized understanding and had no further questions. Kira Alvarez RN June 07, 2024 10:25 AM [facility] 06-07-2024 Miscellaneous Notes Called pt; verified [...] grogginess but more so if used orally NICK 05/27/2024 Notes not yet complete Alysha [...] 2024 10:38 AM documented in this encounter [facility] 06-07-2024 Telephone encounter Note Done Martinez Chang [facility] Work Phone: 06-07-2024 Miscellaneous Notes Done Martinez Chang Botox is approved; can she start PFPT if she desires and then do botox or do botox in office first available appointment documented in this encounter [facility] 06-06-2024 Telephone encounter Note Botox is approved; can she start PFPT if she desires and then do botox or do botox in office first available appointment [facility] 06-06-2024 Telephone encounter Note Tell her fleexeril, I like to try it vaginally first (less side effects ) and use at night. Insert as far as it will go vaginally at night It can cause grogginess but more so if used orally [facility] 06-04-2024 Telephone encounter Note NICK 05/27/2024 Notes not [...] Delong RN June 04, 2024 10:38 AM [facility] 06-03-2024 History of Present illness Narrative Images from the original note were not included. Zaynab Zaidi presents today for follow up on CT scan of her chest. She was last seen 4 months ago. She did have her follow-up CT performed prior to today's office visit. She denies any complaints from a pulmonary perspective. She denies any shortness of breath at rest with exertion. She denies any chest pain, palpitations, fevers, chills, sweats, or recent unintentional weight changes. She denies any other complaints at today's office visit. Allergies: Allergies Allergen Reactions Clindamycin Rash, Hives and Shortness of breath Penicillins Rash and Hives Bee Venom Rash and Hives Bee Pollen Other Reaction(s): Comment:Bee Stings Fluconazole Dizziness Pseudoephedrine Hcl Er Hives Codeine GI intolerance Other Reaction(s): Comment:upset stomach Doxycycline Rash and Hives Doxycycline Hyclate Rash Medications: Current Outpatient Medications: acetaminophen (Tylenol) 500 MG tablet, Take 1,000 mg by mouth every 6 (six) hours if needed, Disp: , Rfl: atorvastatin (Lipitor) 20 MG tablet, Take 20 mg by mouth in the morning., Disp: , Rfl: Calcium Carbonate-Vit D-Min (Caltrate Bone Health Advanced) 600-800 MG-UNIT chewable tablet, Chew, Disp: , Rfl: cyclobenzaprine (Flexeril) 5 MG tablet, Take 5 mg by mouth Daily as needed, Disp: , Rfl: fluticasone (Flonase) 50 MCG/ACT nasal spray, Administer 1 spray into affected nostril(s) in the morning., Disp: , Rfl: ibuprofen 200 MG tablet, Take 400 mg by mouth every 6 (six) hours if needed, Disp: , Rfl: loratadine-pseudoephedrine ER (Claritin-D 12-hour) 5-120 MG 12 hr tablet, Take 1 tablet by mouth in the morning and 1 tablet in the evening., Disp: , Rfl: onabotulinumtoxinA (Botox) 100 units injection, Inject 100 Units into the shoulder, thigh, or buttocks every 3 months, Disp: , Rfl: Singulair 10 MG tablet, 1 (one) time each day at the same time., Disp: , Rfl: Past Medical History: Past Medical History: Diagnosis Date Acute non intractable tension-type headache 03/17/2023 Allergic rhinitis Chest pain 06/12/2023 Chronic rhinitis 03/17/2023 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 Last Assessment & Plan: Sp styloidectomy Family history of abdominal aortic aneurysm 08/20/2023 Infrarenal abdominal 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 (CMS/HCC) 08/20/2023 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 Lung nodule Malnutrition of moderate degree (CMS/HCC) 03/03/2024 Mass of right submandibular region 12/01/2023 Narcotic drug use 02/19/2024 Last Assessment & Plan: Pain managed with norco PRN Neck pain 12/01/2023 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 Last Assessment & Plan: With pelvic congestion Patient endorses abdominal and L flank pain with radiation to pelvis Other hyperlipidemia (CMS/HCC) 02/19/2024 Last Assessment & Plan: Managed on Atorvastatin Ovarian varices 02/19/2024 Last Assessment & Plan: 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 Plan for surgery Pelvic pain 08/20/2023 Pharyngeal dysphagia 03/17/2023 S/P renal autotransplant (CMS/HCC) 03/02/2024 Sinus bradycardia on ECG 02/20/2024 Last Assessment & Plan: HR on EKG from today - 54 HR on exam today 60 Denies cardiac symptoms Sinusitis Submandibular gland swelling 10/07/2023 Social History: Social History Tobacco Use Smoking status: Former Current packs/day: 0.00 Types: Cigarettes Passive exposure: Past Smokeless tobacco: Never Substance Use Topics Alcohol use: Never Comment: caffeine intake: 2-3 cups per day Vitals: BP 117/57 (BP Location: Left arm, Patient Position: Sitting) Pulse 66 Ht 5' 7 Wt 139 lb SpO2 99% BMI 21.77 kg/m Exam: Heart: regular rate Lungs: clear to auscultation bilaterally, no wheezes/rales/rhonchi, no resp distress Extremities: no edema noted, no visible rashes Neuro: alert, oriented x3 Imaging Reviewed: Images and report of CT chest from April 2024 reviewed--4 mm nodule in the superior segment of left lower lobe with adjacent stranding opacities has been stable, stability of the pleural-based triangular opacity in the superior segment of the right lower lobe Assessment/Plan: Diagnoses and all orders for this visit: Pulmonary nodule - CT chest wo IV contrast; Future Abnormal CT chest/pulmonary nodule -- at this time we discussed that she has had stability of the pulmonary nodule. This was measured at 4 mm in diameter. This had previously been measured at 7 mm and 5 mm. At this time given her current risk factors and presence of the pulmonary nodule as well as the triangular opacity, we discussed continued surveillance. This was noted to have changes in January 2024. At this time we discussed continued surveillance. She will have a follow-up CT in 1 year's time. This will be done in April 2025. At that time she will have a follow-up appointment here. The patient understands the plan and is agreeable. Follow up in about 1 year (around 06/03/2025) for CT chest. Tessa Steven DO documented in this encounter [facility] 05-28-2024 Telephone encounter Note [facility] 05/27/2024 Notes not yet complete Alysha Torres RN Instructions See pelvic floor PHYSICAL THERAPY You can search for others [facility], enter zip or city You can click on names for the bios if they have them Use flexeril vaginally at night We can see if botox vaginally is covered by the insurance F/u 3 month virtually You have tight pelvic floor muscles PATIENT INFORMATION ON PELVIC FLOOR DYSFUNCTION: Myofascial pain( also known as Pelvic floor dysfunction, high tone pelvic floor,pelvic floor tightness) [facility] 05-28-2024 Miscellaneous Notes [facility] 05/27/2024 Notes not yet complete Alysha Torres RN Instructions See pelvic floor PHYSICAL THERAPY You can search for others [facility], enter zip or city You can click [...] visit in this department: 08/27/2024 08/27/2024 in [facility] with AUGUSTINA VARGAS 3 MO F/U - TVST ok per Dr. Alicia PLS CALL HOME PHONE PT is unable to do VV documented in this encounter [facility] 05-28-2024 Telephone encounter Note Reason for [...] visit in this department: 08/27/2024 08/27/2024 in [facility] with AUGUSTINA VARGAS MO F/U - TVST ok per Dr. Alicia PLS CALL HOME PHONE PT is unable to do VV [facility] Work Phone: 05-27-2024 History of Present [...] (FLONASE) 50 mcg/actuation nasal spray Use 1 Salem in the nose as needed for cold/allergy [...] SURGICAL HISTORY OF; Right Comment: styloidectomy for evansville syndrome No date: PAST SURGICAL HISTORY OF [...] Chip Carr MD documented in this encounter [facility] 05-27-2024 Note HNO ID: [id number] Author: CHIP CARR MD Service: ? Author [...] (FLONASE) 50 mcg/actuation nasal spray Use 1 [place] in the nose as needed for cold/allergy [...] SURGICAL HISTORY OF; Right Comment: styloidectomy for evansville syndrome No date: PAST SURGICAL HISTORY OF [...] -Follow up as needed Chip Carr MD [facility] 05-27-2024 Instructions Augustina Vargas MD - 05/27/2024 [...] exercises until seen by physical therapist. Instagram: [employer] [facility] Shira Ruby, pelvic floor PHYSICAL THERAPY Resources: [...] messages will go to the RN or oracle manufacturing consultant first to be addressed. If questions are urgent, please call [phone] and press nurse prompt. For urgent Questions: call my pathology secretary/transcriptionist with questions, appts related to chronic pelvic pain, Martinez Chowdary ,fax [phone] For refills, I prefer these be sent through [employer] We also have a nurse coordinatorZaynab Francis RN My schedule: I see patients in office Friday/Friday/ and Fridays: virtual visits only documented in this encounter [facility] 05-27-2024 Note HNO ID: [id number] Author: AUGUSTINA VARGAS MD Service: ? Author Type: Physician Type: Progress Notes Filed: 06/06/2024 23:06 Note Text: [facility] SECTION FOR CHRONIC PELVIC PAIN OUTPATIENT VISIT DATE 05/27/2024 OUTPATIENT VISIT TYPE CONSULT REFERRING PROVIDER: No ref. provider found PRIMARY CARE PROVIDER: Ammon Lucas MD PRIMARY FUR BLENDER: Consultation requested by referring provider above for [...] pain. 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 and She had [...] possibly saw a varicose vein; then saw [facility] dr marnio ; told possibly PCS, then vascular surgeon in [place], ultrasound orders in 3 venograms done , [...] is the same She makes herself eat Cocopah syndrome-styloid surgery She cannot travel She is fully retired Pain is there AND wakes her Pain in left anterior thigh, No PFPT Scalehouse Attendant Hx: (page 3) Menarche: 14 Currently experiences: Not menstruating Duration of dysmenorrhea symptoms: none Currently missing school/work: No Prior dysmenorrhea treatment: None Current control: Nothing History of STD: Negative history MA intake LMP: No LMP recorded (lmp unknown). Patient is postmenopausal. Cycles: Menopausal Last pap: Pap Results: WNL/neg HPV 03/2023 History of abnormal pap: No [place]: (MA intake) Dyspareunia: both insertional and deep [...] endorses Pain changes with bowel movements: endorses. [place] scale: dnc Pudendal symptoms: (page 13) Pain [...] adult: None Curr (more content not included)... [facility] 05-27-2024 History of Present illness Narrative Images from the original note were not included. [facility] SECTION FOR CHRONIC PELVIC PAIN OUTPATIENT VISIT DATE 05/27/2024 OUTPATIENT VISIT TYPE CONSULT REFERRING PROVIDER: No ref. provider found PRIMARY CARE PROVIDER: Ammon Lucas MD PRIMARY FUR BLENDER: Consultation requested by referring provider above for an opinion regarding Zaynab Dyan, and my final recommendations will be communicated back to the requesting physician by way of shared medical record or letter via US mail. CHIEF COMPLAINT/REASON FOR CONSULTATION Chronic pelvic pain evaluation HISTORY OF PRESENT ILLNESS Zaynab is a 68 year od . who presents for evaluation of chronic pelvic pain. 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 and She had [...] possibly saw a varicose vein; then saw [facility] dr marino ; told possibly PCS, then vascular surgeon in [place], ultrasound orders in 3 venograms done , [...] is the same She makes herself eat Cocopah syndrome-styloid surgery She cannot travel She is fully retired Pain is there & wakes her Pain in left anterior thigh, No PFPT Scalehouse Attendant Hx: (page 3) Menarche: 14 Currently experiences: Not menstruating Duration of dysmenorrhea symptoms: none Currently missing school/work: No Prior dysmenorrhea treatment: None Current control: Nothing History of STD: Negative history MA intake LMP: No LMP recorded (lmp unknown). Patient is postmenopausal. Cycles: Menopausal Last pap: Pap Results: WNL/neg HPV 03/2023 History of abnormal pap: No [place]: (MA intake) Dyspareunia: both insertional and deep [...] endorses Pain changes with bowel movements: endorses. [place]age scale: dnc Pudendal symptoms: (page 13) Pain [...] SURGICAL HISTORY OF; Right Comment: styloidectomy for evansville syndrome No date: PAST SURGICAL HISTORY OF Comment: R knee menisus repair No date: PAST SURGICAL HISTORY OF Comment: falloption tube tied 11/24/2023: PAST SURGICAL HISTORY OF Comment: right submandibular duct dilation with steroid irrigation No date: REMOVAL GALLBLADDER; N/A Comment: 1980s [employer] Attendant history: see HPI FAMILY HISTORY Problem Relation [...] (FLONASE) 50 mcg/actuation nasal spray Use 1 [place] in the nose as needed for cold/allergy [...] no lesions, non-tender Speculum exam: Deferred Vagina: [place], moist, well-rugated vagina without lesions. non-tender Cervix: [...] obtained in 12 months --END OF FINDING-- Management Technician: TRINI Transcribe Date/Time: Apr 30 2024 12:52P [...] pain psych,PFPT) 1. documented in this encounter [facility] 05-27-2024 Note Patient Outreach (UR OLMN) ZAYNAB ZAIDI ([id number]) 1955 F Date Time Provider Department 05/27/24 [...] for genitourinary condition [Z13.89] Order(s):URINALYSIS, REFLEX MICROSCOPIC [[id number]] Order #: [id number] URINALYSIS, REFLEX MICROSCOPIC [[id number]] Order #: [id number]. 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 Malnutrition of moderate degree (HCC) [E44.0] 03/03/2024 Encounter Status:Closed by EPIC, PRODUSER on 05/31/24 [facility] 04-26-2024 History of Present illness Narrative Radiology [...] PATIENT PRESENTS WITH AN IMPLANTABLE OR ATTACHED TRANSPLANT COORDINATOR: No RADIOLOGY DEPARTMENT: CT; Exam(s) Completed: Abdomen/Pelvis PERIPHERAL IV DATA: Site assessment: Clean,Dry and Intact, Site disposition Discontinued SIGNED BY: TECHNOLOGIST Yunier April 26, 2024 2:30 PM documented in this encounter [facility] 04-26-2024 Note HNO ID: [id number] Author: SARAH MEDRANO TECHNOLOGIST Service: ? Author [...] PATIENT PRESENTS WITH AN IMPLANTABLE OR ATTACHED TRANSPLANT COORDINATOR: No RADIOLOGY DEPARTMENT: CT; Exam(s) Completed: Abdomen/Pelvis PERIPHERAL IV DATA: Site assessment: Clean,Dry and Intact, Site disposition Discontinued SIGNED BY: TECHNOLOGIST Yunier April 26, 2024 2:30 PM [facility] 04-26-2024 Nurse Note Radiology Service Progress [...] DATE: April 26, 2024 TIME: 1:22 PM [facility] 04-26-2024 Nurse Note Radiology Service Progress [...] TIME: 1:22 PM documented in this encounter [facility] 04-21-2024 Telephone encounter Note Called pt to discuss her postop questions. Discussed no restrictions on activity, swimming, driving, etc. Still having some pain in pelvis but flank pain and other symptoms have improved. Inquiring about f/up -- had stent removed on 04/07. Will set up 3 jorge post op f/up. She is seeing gynecology at [facility] on 05/27, will try to coordinate appt w/ Dr. Carr on that day. Jesús Borrero MD [facility] Work Phone: 04-21-2024 Miscellaneous Notes Called pt to discuss her postop questions. Discussed no restrictions on activity, swimming, driving, etc. Still having some pain in pelvis but flank pain and other symptoms have improved. Inquiring about f/up -- had stent removed on 04/07. Will set up 3 jorge post op f/up. She is seeing gynecology at [facility] on 05/27, will try to coordinate appt w/ Dr. Carr on that day. Jesús Borrero MD documented in this encounter [facility] 04-10-2024 Note HNO ID: [id number] Author: ALLEN HERRERA MD Service: ? Author [...] follow up as scheduled Allen Herrera MD [facility] 04-10-2024 Procedure note Zaynab Zaidi is a [...] follow up as scheduled Allen Herrera MD [facility] 04-10-2024 Procedure note Zaynab Zaidi is [...] Allen Herrera MD documented in this encounter [facility] 04-07-2024 Note HNO ID: [id number] Author: IGLESIA LOVE RN Service: ? Author [...] Visit completed when applicable. Iglesia Love RN [facility] 04-07-2024 History of Present illness Narrative UNIVERSAL [...] Iglesia Love RN documented in this encounter [facility] 04-07-2024 Nurse Note The procedure started [...] had the pain?) unknown Iglesia Love RN [place] [address]-26-2024 Nurse Note The procedure started at ( [...] Yes Patient was roomed in: Q9- 06 Patent Lawyer offered:Patient declines Patient arrived in the room [...] for procedure details. documented in this encounter [facility] 04-07-2024 Nurse Note Actual procedure/procedure scheduled: Yes Performing provider/scheduled provider: Yes Patient was roomed in: Q9- 06 Patent Lawyer offered:Patient declines Patient arrived in the room [...] care. See her note for procedure details. [facility] 03-05-2024 Note HNO ID: [id number] Author: ACE VERA MD Service: Urology Author [...] assessment, plan, and treatment Other, please specify [facility] 03-05-2024 Note HNO ID: [id number] Author: DARBY RODRIGUEZ RPh Service: Pharmacy Author [...] Medication List. Thank you, Darby Rodriguez, PharmD, [facility] Clinical Oxygen Equipment Technician Phone: [phone] Creatinine clearance cannot be calculated (Unknown ideal [...] Your Medications These medications were sent to [facility] - [place] [address] - [address] - [phone] [place] [address] acetaminophen 500 mg tablet docusate sodium 100 mg capsule methocarbamol 750 mg tablet oxyCODONE IR 5 mg immediate release tablet tamsulosin 0.4 mg [facility] 03-05-2024 Note HNO ID: [id number] Author: HELENA MERRILL ? Service: Pharmacy Author Type: Java Sql Developer Type: Plan of Care Filed: 03/05/2024 08:26 Note Text: Insurance investigation completed Patient has active prescription insurance: Yes - Patient's insurance is in-network with [facility] Insurance loaded into [place]: Yes Test claim was completed to verify insurance is active: Successful Any questions, please contact your medication access manager. Pager #: [phone] [facility] 03-05-2024 Note HNO ID: [id number] Author: ACE VERA MD Service: Urology Author Type: Resident Type: Progress Notes Filed: 03/05/2024 07:10 Note Text: [facility] UROLOGY PROGRESS NOTE Name: Zaynab Zaidi DATE: 03/05/2024 After Hours [facility] Service Pager: [phone] ASSESSMENT Zaynab Zaidi is a 68 year [...] Plan to be discussed with staff Dr. Bruno Vera MD PGY-5 Resident Urology Pager#: Weekdays from 7 AM - 5 PM [phone] Pager #: After 5 PM and on WEEKENDS [phone] Objective Vital Signs BP 102/56 Pulse 66 Temp 36.8 ?C (98.2 ?F) (Oral) Resp 16 LMP (LMP Unknown) SpO2 96% There is no height or weight on file to calculate BMI. 03/04/24201003/04/24233303/04/24233403/05/24 0245 BP: 124/60 107/62 102/56 Pulse: 79 [...] 192* Input and Output Date 03/04/24699 - 03/05/24 0659 03/05/24699 - 03/06/24 0659 Shift 1536-3378 2373-3747 4747-8179 24 Hour Total 1320-9143 7802-1081 5242-8008 24 Hour Total INTAKE PO 500 567 387 1717 PO 500 504 907 6838 Shift Total 500 347 906 3547 OUTPUT Urine 650 8499 870 4428 Output ( Indwelling Urinary Catheter 03/02/24 0814 [facility] Facility Kirk 18 Fr) 650 8742 479 9259 # of BMs Number of BMs 0 x 0 x Shift Total 650 0303 663 9561 Weight (kg) Physical Exam General: Well-appearing, no acute distress CV: HDS Lungs: Unlabored breathing on room air L Abdomen: Soft, non-distended Wound: Incisions appropriately tender and clean, dry, and intact : Kirk in place draining clear yellow urine Extremities: Normal. No LE edema [facility] 03-04-2024 Note HNO ID: [id number] Author: ACE VERA MD Service: Urology Author Type: Resident Type: Progress Notes Filed: 03/04/2024 09:24 Note Text: [facility] UROLOGY PROGRESS NOTE Name: Zaynab Zaidi DATE: 03/04/2024 After Hours [facility] Service Pager: [phone] ASSESSMENT Zaynab Zaidi is a 68 year [...] left autotransplant Plan discussed with staff Dr. Bruno Vera MD PGY-5 Resident Urology Pager#: Weekdays from 7 AM - 5 PM [phone] Pager #: After 5 PM and on WEEKENDS [phone] Objective Vital Signs BP 141/84 Pulse 88 [...] and Output Date 03/03/24699 - 03/04/2465803/04/24699 - 03/05/24 0659 Shift 1438-1208 6618-6036 6305-9460 24 Hour Total 1821-7595 9797-2175 2275-0617 24 Hour Total INTAKE PO 240 532 423 9989 PO 240 398 357 4116 IV 3357 377 3178 Volume (mL) (lactated ringers iv infusion) 9435 739 7420 Shift Total 1887 762 841 2801 OUTPUT Urine 1372049 5625 Output ( Indwelling Urinary Catheter 03/02/24 0814 [facility] Kirk 18 Fr) 1375 2049 2200 5625 # of BMs Number of BMs 0 x 0 x 0 x Shift Total 1372049 2200 5625 Weight (kg) Physical Exam General: Well-appearing, no acute distress CV: HDS Lungs: Unlabored breathing on nasal canula 2 L Abdomen: Soft, non-distended Wound: Incisions appropriately tender and clean, dry, and intact : Kirk in place draining light pink urine Extremities: Normal. No LE edema [facility] 03-03-2024 Note HNO ID: [id number] Author: ANNALISE TUCKER RN Service: Care Management [...] 03, 2024 TIME: 10:01 AM CONTACT #: [phone] [facility] 03-03-2024 Note HNO ID: [id number] Author: ACE VERA MD Service: Urology Author Type: Resident Type: Progress Notes Filed: 03/03/2024 08:59 Note Text: [facility] UROLOGY PROGRESS NOTE Name: Zaynab Zaidi DATE: 03/03/2024 After Hours [facility] Urology Service Pager: [phone] ASSESSMENT Zaynab Zaidi is a 68 year [...] left autotransplant Plan discussed with staff Dr. Bruno Vera MD PGY-5 Resident Urology Pager#: days from 7 AM - 5 PM [phone] Pager #: After 5 PM and on WEEKENDS [phone] Objective Vital Signs BP 126/64 Pulse 73 [...] 0659 03/03/24 07 - 03/04/24 0659 Shift 6361-5594 8340-1023 5400-7506 24 Hour Total 9771-7341 2226-0418 4809-9835 24 Hour Total INTAKE PO 120 120 120 120 PO 120 120 120 120 IV 3000 160 3160 1647 1647 Volume (mL) (lactated ringers iv infusion) 2000 2000 Volume (mL) (lactated ringers iv infusion) 1000 1000 Volume (mL) (lactated ringers iv infusion) 183 430 1989 1647 Shift Total 3000 280 3280 1767 1767 OUTPUT Urine 257 531 8306 2100 OR Urine Output 475 475 Output ( Indwelling Urinary Catheter 03/02/24 0814 [facility] Kirk 18 Fr) 125 1500 1625 Blood 50 50 Estimated Blood loss 50 50 Shift Total 331 035 4295 2150 Weight (kg) Physical Exam General: Well-appearing, no acute distress CV: HDS Lungs: Unlabored breathing on nasal canula 2 L Abdomen: Soft, non-distended Wound: Incisions appropriately tender and clean, dry, and intact : Kirk in place draining light pink urine Extremities: Normal. No LE edema [facility] 03-02-2024 Note HNO ID: [id number] Author: ANA MARIA LUONG RN Service: ? Author Type: Registered Nurse Type: Progress Notes Filed: 03/02/2024 18:56 Note Text: Admission/Transfer Note PATIENT NAME: Zaynab Zaidi Patient Location: [place] [address] Room: [place] [address] Patient admitted from PACU via stretcher in stable condition. Actions taken: Patient oriented to room, call light function, prescribed activities, Patient rights, and Quiet at night. This note was completed by: Ana Maria Luong [facility] 03-02-2024 Note HNO ID: [id number] Author: ACE VERA MD Service: Urology Author Type: Resident Type: Progress Notes Filed: 03/02/2024 17:44 Note Text: [facility] UROLOGY PROGRESS NOTE Name: Zaynab Zaidi DATE: 03/02/2024 After Hours [facility] Urology Service Pager: [phone] ASSESSMENT Zaynab Zaidi is a 68 year [...] Plan to be discussed with staff Dr. Bruno Vera MD PGY-5 Resident Urology Pager#: Weekdays from 7 AM - 5 PM [phone] Pager #: After 5 PM and on WEEKENDS [phone] Objective Vital Signs BP 124/62 Pulse 69 [...] Admitted) 03/02/24 0700 - 03/03/24 0659 Shift 3936-6875 9229-7894 24 Hour Total 6731-7026 2487-9166 2109-3410 24 Hour Total INTAKE IV 3000 160 3160 Volume (mL) (lactated ringers iv infusion) 2000 2000 Volume (mL) (lactated ringers iv infusion) 1000 1000 Volume (mL) (lactated ringers iv infusion) 160 160 Shift Total 3000 160 3160 OUTPUT Urine 475 125 600 OR Urine Output 475 475 Output ( Indwelling Urinary Catheter 03/02/24 0814 [facility] Kirk 18 Fr) 125 125 Blood 50 50 Estimated Blood loss 50 50 Shift Total 525 125 650 Weight (kg) Physical Exam General: Well-appearing, no acute distress CV: HDS Lungs: Unlabored breathing on nasal canula 2l Abdomen: Soft, non-distended Wound: Incisions appropriately tender and clean, dry, and intact : kirk in place draining light rust color Extremities: Normal. No LE edema [facility] 03-02-2024 Note HNO ID: [id number] Author: AZALEA SERRA MD Service: ? Author Type: Anesthesiologist Type: Anesthesia Procedure Notes Filed: 03/02/2024 16:57 Note Text: ANESTHESIOLOGY PROCEDURE NOTE A-Line General Information Procedure Start Time/Medication Administration: 03/02/2024 8:05 AM Procedure End Time: 03/02/2024 8:05 AM Patient location during procedure: OR Timeout Performed Pre-procedure: timeout performed Consent Obtained: Yes Patient identity confirmed: arm band, care count team member and patient sedated or unresponsive Indications: continuous [...] tolerated procedure well with no complications Comments [facility] STAFF ANESTHESIOLOGIST DAY OF SURGERY PREPROCEDURE NOTE [...] March 02, 2024 TIME: 9:45 AM CSN: [id number] [facility] 03-02-2024 Note HNO ID: [id number] Author: AZALEA SERRA MD Service: ? Author Type: Anesthesiologist Type: Anesthesia Procedure Notes Filed: 03/02/2024 16:56 Note Text: ANESTHESIOLOGY PROCEDURE NOTE Airway General Information Procedure Start Time/Medication Administration: 03/02/2024 7:41 AM Procedure End Time: 03/02/2024 7:41 AM Patient location during procedure: OR Timeout Performed Pre-procedure: timeout performed Consent Obtained: Yes Patient identity confirmed: arm band, care count team member and patient Staffing Anesthesiologist: Azalea Serra MD [...] March 02, 2024 TIME: 9:42 AM CSN: [id number] [facility] 02-19-2024 History of Present illness Narrative REASON [...] performed due to technical problems in the radiographer cardiac catheterization. Venous duplex US - UE 07/18/23: - [...] (FLONASE) 50 mcg/actuation nasal spray Use 1 Salem in the nose as needed for cold/allergy [...] Chip Carr MD documented in this encounter [facility] 02-19-2024 Note HNO ID: [id number] Author: CHIP CARR MD Service: ? Author [...] performed due to technical problems in the radiographer cardiac catheterization. Venous duplex US - UE 07/18/23: - [...] (FLONASE) 50 mcg/actuation nasal spray Use 1 Salem in the nose as needed for cold/allergy [...] optimally prepared for surgery Chip Carr MD [facility] 02-19-2024 Instructions Tavia Montiel APRN.PNEUMATIC JACK OPERATOR - 02/19/2024 1:32 PM EDT PATIENT PREOPERATIVE INSTRUCTIONS Chip Carr MD has scheduled you for your procedure at this surgery center: If no call by 4pm the day before surgery, please call this number. [facility] Scheduling Office: [phone] --[address] [place] [address]. Please read below carefully for your personalized [...] Procedures: - YOU MUST HAVE A RESPONSIBLE I O PSYCHOLOGIST TAKE YOU HOME. A SHAREPOINT MANAGER OR FOREIGN CLERK CANNOT BE MADE A RESPONSIBLE I O PSYCHOLOGIST. - We recommend that a responsible person [...] call the Friday before. Your surgeon s daily sales audit clerk will tell you what time to call the office. - If you have not reached the departmental daily sales audit clerk by 5 P.M., call [phone] after 5 P.M. the day before your surgery. Please be aware that emergency situations arise, which may delay or change your surgical time. If this happens, we will notify you as soon as possible and regret any inconvenience. If you already have an Advance Directive, please fax a copy to [phone] or email to for it to be [...] Tavia Montiel APRN.CNP documented in this encounter [facility] 02-19-2024 History and physical note HISTORY AND PHYSICAL EXAMINATION SERVICE DATE: 02/19/2024 SERVICE TIME: 1:17 PM PRIMARY CARE PHYSICIAN: Ammon Lucas MD Assessment Patient has the following medical conditions which may affect elzbieta-operative course: 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 Shakopee's syndrome Sp styloidectomy Other hyperlipidemia Managed on [...] no. Thick neck: no Chen present: no Microretrognathia/Micronagthia/Re cessed Chin: No DENTAL Additional comments: Total implants- [...] Abdominal Aortic Aneurysm (Aaa) Without Rupture (Hcc) Shakopee's Syndrome Other Hyperlipidemia Ovarian Varices Nutcracker Phenomenon [...] Positive for: peripheral neuropathy (neurontin). Negative for: ADVERTISING ACCOUNT REPRESENTATIVE tumor, delirium, dementia, headaches, multiple sclerosis, seizures, [...] chest pain, CHF, DVT/PE, hypertension and recent OK. GI: Pelvic congestion, abdominal and L flank [...] nephrolithiasis, renal failure and urinary tract infection. 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 Endocrine: Negative for: diabetes mellitus, [...] SURGICAL HISTORY OF Right 2020 styloidectomy for [place] syndrome PAST SURGICAL HISTORY OF R knee [...] (FLONASE) 50 mcg/actuation nasal spray Use 1 Salem in the nose as needed for cold/allergy [...] 462 QTC Calculation (Bazett) 438 Calculated P [place] 21 Calculated R [place] 68 Calculated T [place] 69 Impression SINUS BRADYCARDIA OTHERWISE NORMAL ECG No results found for this or any previous visit (from the past 70613 hour(s)). Instructions Given to Patient: Instructions located in the after visit summary. Patient given verbal and written preop instructions and voices comprehension and compliance. SIGNATURE: Tavia Montiel APRN.CNP PATIENT NAME: Zaynab Zaidi DATE: February 19, 2024 TIME: 1:54 PM PAGER/CONTACT #: [facility] 02-19-2024 History and physical note HISTORY AND PHYSICAL EXAMINATION SERVICE DATE: 02/19/2024 SERVICE TIME: 1:17 PM PRIMARY CARE PHYSICIAN: Ammon Lucas MD Assessment Patient has the following medical conditions which may affect elzbieta-operative course: 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 Shakopee's syndrome Sp styloidectomy Other hyperlipidemia Managed on [...] no. Thick neck: no Chen present: no Microretrognathia/Micronagthia/Re cessed Chin: No DENTAL Additional comments: Total implants- [...] Abdominal Aortic Aneurysm (Aaa) Without Rupture (Hcc) Shakopee's Syndrome Other Hyperlipidemia Ovarian Varices Nutcracker Phenomenon [...] Positive for: peripheral neuropathy (neurontin). Negative for: ADVERTISING ACCOUNT REPRESENTATIVE tumor, delirium, dementia, headaches, multiple sclerosis, seizures, [...] chest pain, CHF, DVT/PE, hypertension and recent OK. GI: Pelvic congestion, abdominal and L flank [...] nephrolithiasis, renal failure and urinary tract infection. 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 Endocrine: Negative for: diabetes mellitus, [...] SURGICAL HISTORY OF Right 2020 styloidectomy for ev[place] syndrome PAST SURGICAL HISTORY OF R knee menisus repair PAST SURGICAL HISTORY OF falloption tube tied PAST SURGICAL HISTORY OF 11/24/2023 right submandibular duct dilation with steroid irrigation REMOVAL GALLBLADDER N/A FAMILY HISTORY Problem Relation Age of Onset [...] (FLONASE) 50 mcg/actuation nasal spray Use 1 [place] in the nose as needed for cold/allergy [...] 462 QTC Calculation (Bazett) 438 Calculated P [place] 21 Calculated R [place] 68 Calculated T [place] 69 Impression SINUS BRADYCARDIA OTHERWISE NORMAL ECG No results found for this or any previous visit (from the past 05340 hour(s)). Instructions Given to Patient: Instructions located in the after visit summary. Patient given verbal and written preop instructions and voices comprehension and compliance. SIGNATURE: Tavia Montiel APRN.CNP PATIENT NAME: Zaynab Zaidi DATE: February 19, 2024 TIME: 1:54 PM PAGER/CONTACT #: documented in this encounter [facility] 02-19-2024 Note Patient Outreach (UR OLMN) ZAYNAB ZAIDI ([id number]) 1955 F Date Time Provider Department 02/19/24 [...] for genitourinary condition [Z13.89] Order(s):URINALYSIS, REFLEX MICROSCOPIC [[id number]] Order #: [id number]. #:[id number] Prescriptions as of 02/23/2024 - calcium carbonate/vitamin D3 (CALTRATE 600 + D ORAL) Take 600 mg by mouth two times a day. - atorvastatin (LIPITOR) 20 mg tablet Take 20 mg by mouth every evening. 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 documented in this encounter [facility] 01-01-2024 Miscellaneous Notes Sounds good thanks Mrs. Zaidi called to let Dr. Fox know that Urology is able to do the proposed procedure robotically and that she is scheduled to have it done on March 02. Estephania Mojica Associate Professor Of Geology documented in this encounter [facility] 12-25-2023 History of Present illness Narrative [...] performed due to technical problems in the radiographer cardiac catheterization. Venous duplex US - UE 07/18/23: - [...] (FLONASE) 50 mcg/actuation nasal spray Use 1 Salem in the nose as needed for cold/allergy [...] Chip Carr MD documented in this encounter [facility] 12-25-2023 Note HNO ID: [id number] Author: CHIP CARR MD Service: ? Author [...] performed due to technical problems in the radiographer cardiac catheterization. Venous duplex US - UE 07/18/23: - [...] (FLONASE) 50 mcg/actuation nasal spray Use 1 Salem in the nose as needed for cold/allergy [...] prepared for the surgery Chip Carr MD [facility] 12-25-2023 Note Patient Outreach (UR OLMN) ZAYNAB ZAIDI ([id number]) 1955 F Date Time Provider Department 12/25/23 [...] for genitourinary condition [Z13.89] Order(s):URINALYSIS, REFLEX MICROSCOPIC [[id number]] Order #: [id number]. #:[id number] Prescriptions as of 12/29/2023 - calcium carbonate/vitamin D3 (CALTRATE 600 + D ORAL) Take 600 mg by mouth once daily. - atorvastatin (LIPITOR) 20 mg tablet Take 20 mg by mouth every evening. - fluticasone (FLONASE) 50 mcg/actuation nasal spray Use 1 [place] in the nose as needed for cold/allergy [...] Encounter Status:Closed by EPIC, PRODUSER on 12/29/23 [facility] 12-22-2023 History of Present illness Narrative Images from the original note were not included. PATIENT: Zaynab Zaidi [id number] NEW PATIENT REFERRING MD: Rina Fox 12/20/2023 [...] pelvis region (feels like sitting on cucumber) [place] this started one year ago. Thought it [...] elevating her legs. with PMH significant for Shakopee Syndrome, jugular vein stenosis (asymptomatic), HLD, nutcracker [...] fluticasone (FLONASE) 50 mcg/actuation nasal spray 1 Salem, NASAL, NEEDED, Take in allergy season
gabapentin [...] performed due to technical problems in the radiographer cardiac catheterization. Venous duplex US - UE 07/18/23: - [...] for renal vein transposition (msg sent through [employer]) Scribe Attestation: By signing my name below, [...] Deleon MD [facility] Urologic On[facility] [place] [facility] Medical Decision Making: Problems: Moderate: New problem with uncertain prognosis Data: Unique test result(s) reviewed: 1 Unique test(s) ordered: 1 Risk: Moderate: Moderate risk from testing/treatment Medical Decision Making Level: 4 - Moderate documented in this encounter [facility] 12-22-2023 Note HNO ID: [id number] Author: RADU DELEON MD Service: ? Author Type: Physician Type: Progress Notes Filed: 12/23/2023 07:58 Note Text: PATIENT: Zaynab Zaidi [id number] NEW PATIENT REFERRING MD: Rina Fox 12/20/2023 [...] pelvis region (feels like sitting on cucumber) [place] this started one year ago. Thought it [...] elevating her legs. with PMH significant for Shakopee Syndrome, jugular vein stenosis (asymptomatic), HLD, nutcracker [...] fluticasone (FLONASE) 50 mcg/actuation nasal spray 1 Salem, NASAL, NEEDED, Take in allergy season - [...] evidence for atherosclero (more content not included)... [facility] 12-22-2023 Nurse Note Summary: Bladder S can Patient PVR recorded: 0 mL LUCIAN Rodriguez documented in this encounter [facility] 12-22-2023 Note Patient Outreach (UR OLMN) ZAYNAB ZAIDI ([id number]) 1955 F Date Time Provider Department 12/22/23 [...] for genitourinary condition [Z13.89] Order(s):URINALYSIS, REFLEX MICROSCOPIC [[id number]] Order #: [id number]. #:[id number] Prescriptions as of 12/25/2023 - calcium carbonate/vitamin D3 (CALTRATE 600 + D ORAL) Take 600 mg by mouth once daily. - atorvastatin (LIPITOR) 20 mg tablet Take 20 mg by mouth every evening. - fluticasone (FLONASE) 50 mcg/actuation nasal spray Use 1 [place] in the nose as needed for cold/allergy [...] witho*12/18/2023 Encounter Status:Closed by EPIC, PRODUSER on 12/25/23 [facility] 12-18-2023 History of Present illness Narrative Images from the original note were not included. [facility] [place] DEPARTMENT OF VASCULAR SURGERY OUTPATIENT VISIT DATE [...] elevating her legs. with PMH significant for Shakopee Syndrome, jugular vein stenosis (asymptomatic), HLD, nutcracker [...] performed due to technical problems in the radiographer cardiac catheterization. Venous duplex US - UE 07/18/23: - [...] (FLONASE) 50 mcg/actuation nasal spray Use 1 [place] in the nose as needed for cold/allergy [...] TIME: 8:49 AM documented in this encounter [facility] 12-18-2023 Note HNO ID: [id number] Author: RINA FOX MD Service: ? Author Type: Physician Type: Progress Notes Filed: 12/18/2023 15:50 Note Text: [facility] [place] DEPARTMENT OF VASCULAR SURGERY OUTPATIENT VISIT DATE [...] elevating her legs. with PMH significant for Shakopee Syndrome, jugular vein stenosis (asymptomatic), HLD, nutcracker [...] performed due to technical problems in the radiographer cardiac catheterization. Venous duplex US - UE 07/18/23: - [...] (FLONASE) 50 mcg/actuation nasal spray Use 1 [place] in the nose as needed for cold/allergy [...] Left: palpable Posterior (more content not included)... [facility] 12-12-2023 Miscellaneous Notes Appt scheduled 12/18/23 with [...] she can be scheduled appropriately. Estephania Mojica Associate Professor Of Geology documented in this encounter [facility] 12-02-2023 History of Present illness Narrative [facility] - ENT [address] [place] [address], [address] [address] SUBJECTIVE: Patient ID (1955): Zaynab Zaidi is [...] History: Diagnosis Date AAA (abdominal aortic aneurysm) (CMS-HCC) Angina pectoris (CMS-HCC) Aortic aneurysm (CMS-HCC) Arthritis Cataract Chest pain Chronic kidney disease stone Chronic rhinitis Coronary artery disease Dental disease implants Dizziness Dysphagia, pharyngeal phase Shakopee's syndrome Fractures left arm 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 Osteoporosis Pelvic congestion syndrome Peripheral vascular disease (CMS-HCC) Seasonal allergies Submandibular gland swelling 11/12/2023 Visual impairment glasses Past Surgical History: Procedure Laterality Date CATARACT EXTRACTION Bilateral 2018 CHOLECYSTECTOMY COLONOSCOPY COLONOSCOPY N/A 07/23/2018 Performed by Frank Christine DO at [facility] DENTAL SURGERY 07/2013 implants Diagnostic cerebral angiogram N/A 03/31/2020 Performed by Melissa Morillo MD at [facility] CARDIAC CATH LABS DIAGNOSTIC VENOGRAM OF IVC AND ILEOCABLE, LEFT RENAL VEIN, SELECTIVE LEFT OVARIAN VEIN CONTRAST AND IVUS VENOGRAMS N/A 07/25/2023 Performed by Erendira Armijo DO at [facility] PROC dilation rt submandibular duct and steroid irrigation Right 11/24/2023 Performed by Sarah Godwin MD at [facility] 2018? KNEE CARTILAGE SURGERY MOLE REMOVAL 11/10/2023 right breast OTHER SURGICAL HISTORY 08/31/2020 cranial base ( cranial styloidectomy) 05/2020 also OTHER SURGICAL HISTORY 06/18/2023 venogram OTHER SURGICAL HISTORY 09/09/2023 DIagnostic venogram TUBAL LIGATION Vascular Invasive Diagnostic venogram with IVUS and the ability to measure pressure gradients Bilateral 06/18/2023 Performed by Erendira Armijo DO at [facility]ATH [facility] Family History Problem Relation [...] this chart were generated using voice recognition [employer] dictation software. Although every effort was made to ensure the accuracy of this automated commissary agent, some errors in commissary agent may have occurred. Alex Ramirez PA-C 12/02/23 1258 documented in this encounter [facility] 11-20-2023 Miscellaneous Notes PATIENT NOTIFIED WITH SURGERY TIME OF 12:15 . TOLD TO ARRIVE 2 HOURS PRIOR. documented in this encounter [facility] 11-20-2023 Telephone encounter Note PATIENT NOTIFIED WITH SURGERY TIME OF 12:15 . TOLD TO ARRIVE 2 HOURS PRIOR. [facility] 11-05-2023 Note HNO ID: [id number] Author: PAGE BUCHANAN MD Service: ? Author Type: Physician Type: Progress Notes Filed: 11/05/2023 14:48 Note Text: [facility] [place] Ella Varma Department of Cardiovascular Medicine SECTION [...] file. History of present illness: 68yof from [place], [place], who came to [place] today (2-hr [address]) for this patient -initiated appointment. She initially tried to schedule appt with Vascular Surgery, and she was also referred to IR (Dr. Camp), but she was ultimately referred to Vascular Medicine. She is, however, scheduled with IR on 11/11/23 (presumably for an appt with Dr. Camp, but there are no physician names clearly specified in the appt). PMHx Shakopee Syndrome, jugular vein stenosis (asymptomatic), HLD, pelvic [...] was unremarkable. She has undergone evaluation in [facility] records available under care everywhere and [...] (FLONASE) 50 mcg/actuation nasal spray Use 1 [place] in the nose once daily. gabapentin (NEURONTIN) [...] tobacco. She reports (more content not included)... [facility] 10-08-2023 Evaluation note Encounter Date Diagnosis Assessment Notes Sep, Abnormal chest CT (ICD-10 - R93.89) [facility] Other 11-20-2023 Evaluation note* Encounter Date Diagnosis Assessment Notes Treatment Notes Treatment Clinical Notes Aug, Pelvic congestion syndrome (ICD-10 - N94.89) Referral entered as pt request. Aug, Renal vein occlusion (ICD-10 - I82.3) Referral entered to Dr. Camp. [facility] Other 11-14-2023 Miscellaneous Notes* Telephone Encounter - [...] would like to re-schedule an appointment with [facility] and cell number: [phone] Diagnosis: pelvic congestion syndrome - renal vein stenosis Karely Laura Medina Milyus [facility] Encounter Date Diagnosis Assessment [...] Weight loss noted, encouraged small frequent meals. [facility] Other 09-20-2023 Evaluation note* Encounter Date Diagnosis Assessment Notes Treatment Notes Treatment Clinical Notes Jun, Neuropathic pain (ICD-10 - M79.2) Previously on med. 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 Declines referral back to ENT for potential R PE tube. Discussed nasal spray and OTC decongestants that could help discomfort. [facility] Other 08-25-2023 Evaluation note* Encounter Date Diagnosis Assessment Notes Treatment Notes Treatment Clinical Notes May, Thrush (ICD-10 - B37.0) Finish nystatin as prescribed May, Abdominal 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, unspecified part (ICD-10 - I71.40) Continue screening a Jobst. [facility] Other 08-17-2023 Evaluation note* Encounter Date Diagnosis [...] understanding and is agreeable to treatment plan [facility] Other 05-02-2023 Evaluation note* Encounter Date Diagnosis [...] understanding and is agreeable with treatment plan. [facility] Other 05-02-2023 Evaluation note* Encounter Date Diagnosis Assessment Notes Treatment Notes Treatment Clinical Notes February, Nephrolithiasis (ICD-10 - N20.0) Discussed differential - agrees to imaging and She is established with Dr. Monroe. They advised she go to ER or come here for imaging and assessment. [facility] Other 02-10-2023 Evaluation note* Encounter Date Diagnosis [...] understanding and is agreeable to treatment plan [facility] Other 01-19-2023 Evaluation note* Encounter Date Diagnosis Assessment Notes Treatment Notes Treatment Clinical Notes Oct, Allergic reaction, subsequent encounter (ICD-10 - T78.40XD) Zaynab Hunter IM [facility] Other 10-16-2022 Evaluation note* Encounter Date Diagnosis [...] understanding and is agreeable to treatment plan [facility] Other 12-03-2021 Evaluation note* Encounter Date Diagnosis Assessment Notes Treatment Notes Treatment Clinical Notes Sep, Herpes zoster without complication (ICD-10 - B02.9) Take the valacyclovir as prescribed until gone. Use the viscous lidocaine to the rash as needed for pain. Follow-up with your family physician if no improvement in 2 to 3 days. [facility] Other 10-17-2021 Evaluation note* Encounter Date Diagnosis Assessment Notes Treatment Notes Treatment Clinical Notes Jul, Herpes zoster without complication (ICD-10 - B02.9) [place] [employer] Other Evaluation noteNo [facility] [employer] Other Evaluation note* Diagnosis Submandibular gland swelling- Primary Chronic sialoadenitis [facility] Diagnosis Nutcracker phenomenon of renal vein- Primary documented in this encounter [facility] note* Diagnosis Nutcracker phenomenon of renal vein- Primary Family history of aneurysm Family history of other condition Aortic ectasia, abdominal (HCC) Abdominal aortic ectasia documented in this encounter [facility] note* Diagnosis Nutcracker phenomenon of renal vein- Primary Preop testing Preoperative examination, unspecified Nutcracker phenomenon of renal vein Preop testing Preoperative examination, unspecified documented in this encounter [facility] note* Diagnosis 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 Preop testing Preoperative examination, unspecified documented in this encounter [facility] note* Diagnosis Screening for genitourinary condition Screening for other and unspecified genitourinary condition Nutcracker phenomenon of renal vein Preop testing Preoperative examination, unspecified documented in this encounter [facility] note* Diagnosis Screening for genitourinary condition Screening for other and unspecified genitourinary condition Nutcracker phenomenon of renal vein Preop testing Preoperative examination, unspecified documented in this encounter [facility] note* Diagnosis Nutcracker phenomenon of renal vein- Primary Abnormal coagulation profile Nutcracker phenomenon of renal vein documented in this encounter [facility] note* Diagnosis Preop examination- Primary Preoperative examination, unspecified 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) [place]ope[place]'s syndrome Other disorder of muscle, ligament, and [...] - 02/19/2024 1:50 PM EDT Associated Problem(s): [place]opee's syndrome Sp styloidectomy * Assessment & Plan Note - Tavia Montiel APRN.CNP - 02/19/2024 1:50 PM EDT Associated Problem(s): 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 [facility] Diagnosis Nutcracker phenomenon of renal vein- Primary Nutcracker phenomenon of renal vein [facility] Diagnosis Screening for genitourinary condition Screening for other and unspecified genitourinary condition Nutcracker phenomenon of renal vein [facility] Diagnosis Nutcracker phenomenon of renal vein- Primary Nutcracker phenomenon of renal vein [facility] Diagnosis Encounter for aftercare following kidney transplant- Primary Aftercare following organ transplant Malnutrition of moderate degree (HCC) Malnutrition of moderate degree [facility] Diagnosis Flank pain- Primary Abdominal pain, unspecified site [facility] Diagnosis Preop examination- Primary Preoperative examination, unspecified 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) [place]opee's syndrome Other disorder of muscle, ligament, and fascia Other hyperlipidemia Ovarian varices Nutcracker phenomenon of renal vein Narcotic drug use Sinus bradycardia on ECG Other specified cardiac dysrhythmias Screening for genitourinary condition Screening for other and unspecified genitourinary condition [facility] Diagnosis Preop examination- Primary Preoperative examination, unspecified 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) [place]'s syndrome Other disorder of muscle, ligament, and fascia Other hyperlipidemia Ovarian varices Nutcracker phenomenon of renal vein Narcotic drug use Sinus bradycardia on ECG Other specified cardiac dysrhythmias High-tone pelvic floor dysfunction- Primary Other specified disorders of female genital organs 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 Unspecified symptom associated with female genital organs [facility] Diagnosis Preop examination- Primary Preoperative examination, unspecified 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) Sh[place]opee's syndrome Other disorder of muscle, ligament, and [...] and myositis, unspecified [facility] Diagnosis Chronic sialoadenitis- Primary [facility] Diagnosis Preop examination- Primary Preoperative examination, unspecified 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) Sh[place]opee's syndrome Other disorder of muscle, ligament, and fascia Other hyperlipidemia Ovarian varices Nutcracker phenomenon of renal vein Narcotic drug use Sinus bradycardia on ECG Other specified cardiac dysrhythmias High-tone pelvic floor dysfunction Other specified disorders of female genital organs documented in this encounter [facility] note* Diagnosis Preop examination- Primary Preoperative examination, unspecified 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) Shakopee's syndrome Other disorder of muscle, ligament, and fascia Other hyperlipidemia Ovarian varices Nutcracker phenomenon of renal vein Narcotic drug use Sinus bradycardia on ECG Other specified cardiac dysrhythmias High-tone pelvic floor dysfunction- Primary Other specified disorders of female genital organs [facility] Diagnosis Preop examination- Primary Preoperative examination, unspecified 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) Shakopee's syndrome Other disorder of muscle, ligament, and fascia Other hyperlipidemia Ovarian varices Nutcracker phenomenon of renal vein Narcotic drug use Sinus bradycardia on ECG Other specified cardiac dysrhythmias High-tone pelvic floor dysfunction Other specified disorders of female genital organs documented [facility]* Diagnosis Preop examination- Primary Preoperative examination, unspecified 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) Shakopee's syndrome Other disorder of muscle, ligament, and fascia Other hyperlipidemia Ovarian varices Nutcracker phenomenon of renal vein Narcotic drug use Sinus bradycardia on ECG Other specified cardiac dysrhythmias Pelvic pain in female- Primary Unspecified symptom associated with female genital organs documented [facility]* Diagnosis Pulmonary nodule- Primary Other diseases of lung, not elsewhere classified documented in this encounter [facility] HealthcareHistory general Narrative - Reported* Type Description Date Medical History Other seasonal allergic rhinitis Medical History [place] syndrome Surgical History cholecystectomy Surgical History arthroscopic knee surgery Surgical History oral surgery Surgical History colonoscopy Surgical History tubal ligation Surgical History styloidectomy Hospitalization History see above [facility] Other History general Narrative - Reported* Type Description Date Medical History Other seasonal allergic rhinitis Medical History [place] syndrome Medical History shingles Surgical History cholecystectomy Surgical History arthroscopic knee surgery Surgical History oral surgery Surgical History colonoscopy Surgical History tubal ligation Surgical History styloidectomy Hospitalization History see above [facility] Other Hisimpp general Narrative - Reported* Type Description Date Medical History Other seasonal allergic rhinitis Medical History [place] syndrome Medical History shingles Medical History Renal stone Surgical History cholecystectomy Surgical History arthroscopic knee surgery Surgical History oral surgery Surgical History colonoscopy Surgical History tubal ligation Surgical History styloidectomy b/l Hospitalization History see above [facility] Other Hisnfar general Narrative - Reported* Type Description Date Medical History Other seasonal allergic rhinitis Medical History [place] syndrome Medical History shingles Medical History Renal stone Medical History Pelvic venous congestive syndrom e Surgical History cholecystectomy Surgical History arthroscopic knee surgery Surgical History oral surgery Surgical History colonoscopy Surgical History tubal ligation Surgical History styloidectomy b/l Hospitalization History see above [facility] Other Hisqnyn general Narrative - Reported* Type Description Date Medical History Other seasonal allergic rhinitis Medical History [place] syndrome Medical History shingles Medical History Renal stone Medical History Pelvic venous congestive syndrom e Surgical History cholecystectomy Surgical History arthroscopic knee surgery Surgical History oral surgery Surgical History colonoscopy Surgical History tubal ligation Surgical History styloidectomy b/l Surgical History Venogram Hospitalization History see above [facility] Other InstructionsNot on filedocumented in this encounter [facility]ructionsNot on filedocumented in this encounter [facility] for referral (narrative)* Outpatient Procedure (Routine) - Authorized Specialty Diagnoses / Procedures Referred By Contac t Referred To Contact [facility] Diagnoses Nutcracker phenomenon of renal vein Procedures US RENAL ARTERY CINTHYA VAS LAB DUP-SCAN ARTL STEVAN ABDL/PEL/SCROT&/RPR ORGN COM Rina Fox MD [address] [place] [address] [facility] [place] [place] [address] Referral ID Status Reason Start Date Expiration Date Visits Requested Visits Authorized [id number] Authorized Auto-Generat ed Referral 12/12/2023 12/11/2024 1 1 [facility] for referral (narrative)* Outpatient Procedure (Routine) - Authorized Specialty Diagnoses / Procedures Referred By Contac t Referred To Contact [facility] Diagnoses Nutcracker phenomenon of renal vein Procedures US RENAL VENOUS CINTHYA VAS LAB DUP-SCAN ARTL STEVAN ABDL/PEL/SCROT&/RPR ORGN COM Rina Fox MD [address] [place] [address] [address] [place] [address] [place] [address] Referral ID Status Reason Start Date Expiration Date Visits Requested Visits Authorized [id number] Authorized Auto-Generat ed Referral 12/17/2023 12/16/2024 1 1 [facility] for referral (narrative)* Outpatient Procedure (Routine) - Authorized Specialty Diagnoses / Procedures Referred By Contac t Referred To Contact [facility] Diagnoses Nutcracker phenomenon of renal vein Procedures US VENOUS INCOMPETENCY CINTHYA VAS LAB DUP-SCAN XTR VEINS COMPLETE BILATERAL STUDY Rina Fox MD [address] [place] [address] [facility] [place] [address] [address] [place] [address] Referral ID Status Reason Start Date Expiration Date Visits Requested Visits Authorized [id number] Authorized Auto-Generat ed Referral 12/17/2023 12/16/2024 1 1 [facility] for referral (narrative)* Outpatient Procedure (Routine) - Authorized Specialty Diagnoses / Procedures Referred By Contac t Referred To Contact [facility] Diagnoses Nutcracker phenomenon of renal vein Preop testing Procedures ECG COMPLETE ECG ROUTINE ECG W/LEAST 12 LDS W/I&R Kira Eduardo APRN.PNEUMATIC JACK OPERATOR [address] [place] [address] [facility] [phone] [place] [address] Referral ID Status Reason Start Date Expiration Date Visits Requested Visits Authorized [id number] Authorized Auto-Generat ed Referral 12/19/2023 12/18/2024 1 1 [facility] Summary Purpose Family History No Family History [...] By Contac t Referred To Contact Diagnoses Pulmonary nodule Procedures CT chest wo IV contrast Tessa Steven, [address] [place] [address] Referral ID Status Reason Start Date Expiration Date V isits Requested Visits Authorized [id number] Pending Review 05/02/2025 10/29/2025 1 1 Specialty Diagnoses / Procedures Referred By Contac t Referred To Contact [facility] Diagnoses High-tone pelvic floor dysfunction Augustina Vargas MD [address] [place] [address] [address] Referral ID Status Reason Start Date Expiration Date V isits Requested Visits Authorized [id number] Authorized 05/28/2024 08/26/2024 1 1 Specialty Diagnoses / Procedures Referred By Contac t Referred To Contact [facility] Diagnoses High-tone pelvic floor dysfunction Procedures CONSULT TO PHYSICAL THERAPY PHYSICAL THERAPY EVALUATION HIGH COMPLEX 45 MINS Augustina Vargas MD [address] [place] [address] [facility] [address] [address] Referral ID Status Reason Start Date Expiration Date Visits Requested Visits Authorized [id number] Authorized PCP Requested Referral Auto-Generate d Referral 05/27/2024 05/27/2025 99 99 Specialty Diagnoses / Procedures Referred By Contac t Referred To Contact Diagnoses High-tone pelvic floor dysfunction Augustina Vargas MD [address] [place] [address] Referral ID Status Reason Start Date Expiration Date Visits Re quested Visits Authorized [id number] Closed 1 1 Specialty Diagnoses / Procedures Referred By Contac t Referred To Contact Diagnoses Nutcracker phenomenon of renal vein Procedures REFER TO PACC - PRE ANESTHESIA CONSULTATION CLINIC OFFICE/OUTPATIENT [facility] 60 MINUTES Chip Carr MD [address] [place] [address] Referral ID Status Reason Start Date Expiration Date Visits Requested Visits Authorized [id number] Authorized PCP Requested Referral 02/25/2024 12/29/2024 1 1 Specialty Diagnoses / Procedures Referred By Contac t Referred [facility] Diagnoses Nutcracker phenomenon of renal vein Procedures ECG COMPLETE ECG ROUTINE ECG W/LEAST 12 LDS W/I&R Chip Carr MD [address] [place] [address] [facility] [address] [place] [address] Referral ID Status Reason Start Date Expiration Date Visits Requested Visits Authorized [id number] Pending Review Auto-Generat ed Referral 02/25/2024 12/29/2024 1 1 Specialty Diagnoses / Procedures Referred By Contac t Referred To Contact Urology Diagnoses Nutcracker phenomenon of renal vein Procedures CONSULT TO UROLOGY OFFICE/OUTPATIENT [facility] 60 MINUTES Rina Fox MD [address] [facility] [place] [address] Referral ID Status Reason Start Date Expiration Date Visits Requested Visits Authorized [id number] Authorized PCP Requested Referral 12/18/2023 12/17/2024 1 1 Reason *FU 10/22 [place] office - abnormal CT of chest, send notes recently from Dr. Godwin. Diagnosis [address] (R 93.89) Referral Organization [facility] Referring Provider First Name Ammon Referring Provider Last Name Lance Referring Provider Specialty [facility] [place] Referred Organization [facility] Referred Provider TenishaTessa Referred Address ,[place], [place],[address] Referred Provider Specialty Pulmonary Di seases Referral Priority Routine General Notes Thea Wilson 04:43:51 PM >received today Thea Wilson 10/15/2023 04:45:29 PM >attachments made, notes locked, referral faxed to [place] office Clinical Notes p: [phone] f: [phone] Reason Pt has all records, images with [facility]. Pt has called [facility] and they recommend she start w Dr. Camp for assessment Diagnosis 1 Pelvic congestion sy ndrome (N94.89) Referral Organization [facility] Referring Provider First Name Ammon Referring Provider Last Name Lance Referring Provider Specialty [facility] [place] [facility]erred [facility] Referred Provider Shanell Camp Referred Address [address] [place], [place],[address] Referred Provider Specialty Diagnostic R adiology Referral Priority Routine Reason 12/18/22 @ 2:20 it tiera palms and soles, drug reaction on abd. please send recent derm note with referral. Diagnosis 1 Allergic reaction, s ubsequent encounter (T78.40XD) Referral Organization [facility] Referring Provider First Name Ammon Referring Provider Last Name Lance Referring Provider Specialty [facility] [place] Referred Organization [facility] Referred Provider Will Vega Referred Address ,[place], [place],[address] Referred Provider Specialty Allergy/Immu nology Referral Priority Routine Referral Appointment Date 2022-12-18 General Notes Thea Wilson 11:22:43 AM >received today, waiting for derm note to be entered into patients chart Thea Wilson 11/04/2022 07:36:18 AM >notes locked and referral faxed P2P Thea Wilson 11/11/2022 10:45:36 AM >faxed first attempt letter Thea Wilson 11/12/2022 03:44:55 PM >received fax with appt date and time Additional Source Comments INFORMATION SOURCE (unrecogn ized section and content) DATE CREATED AUTHOR 08/08/2018 [facility] DATE CREATED AUTHOR AUTHOR'S ORGANIZ ATION 02/24/2022 [facility] DATE CREATED AUTHOR AUTHOR'S ORGANIZ ATION 02/26/2023 [facility] DATE CREATED AUTHOR AUTHOR'S ORGANIZ ATION 02/18/2024 [facility] DATE CREATED AUTHOR AUTHOR'S ORGANIZ ATION 05/04/2024 [facility] DATE CREATED AUTHOR AUTHOR'S ORGANIZ ATION 05/11/2024 [facility] DATE CREATED AUTHOR AUTHOR'S ORGANIZ ATION 06/05/2024 [facility] DATE CREATED AUTHOR AUTHOR'S ORGANIZ ATION 07/27/2024 [facility] DATE CREATED AUTHOR AUTHOR'S ORGANIZ ATION 09/15/2024 [facility] DATE CREATED AUTHOR AUTHOR'S ORGANIZ ATION 09/24/2024 [facility] REASON FOR VISIT (unrecogniz ed section and content) Reason Comments Appointment Reason Comments Post-op Follow-up Reason Comments Patient Question Reason Comments Consult Reason Comments Consult Specialty Diagnoses / Procedures Referred By Contac t Referred To Contact 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 [address] Referral ID Status Reason Start Date Expiration Date V isits Requested Visits Authorized [id number] Closed PCP Requested Referral 12/18/2023 12/17/2024 1 1 Reason Comments Patient Update Reason Comments Surgery Cancelled Reason Comments Pre-Op Exam Reason Comments Cystoscopy-1 Stent Extraction Reason Comments Follow Up Reason Comments Pelvic Pain Reason Comments botox auth Reason Comments Pelvic Pain Specialty Diagnoses / Procedures Referred By Contac t Referred To Contact [facility] Diagnoses High-tone pelvic floor dysfunction Augustina Vargas MD [address] [place] [address] [facility] [address] [place] [address] Referral ID Status Reason Start Date Expiration Date Visits Re quested Visits Authorized [id number] Closed 05/28/2024 08/26/2024 1 1 Reason Comments Follow-up Reason Comments Medication Problem Reason Comments Med Change Request Reason Comments Other Patient Update Reason Comments Pulmonary Nodules 4 month follow up Source Comments (unrecognize d section and content) In the event this informatio n is protected by the Federal Confidentiality of Alcohol and Drug Abuse Patient Records regulations: The Federal rules restrict any use of the information to criminally investigate or prosecute any alcohol or drug abuse patient.[facility] the event this information is protected by the Federal Confidentiality of Alcohol and Drug Abuse Patient Records regulations: The Federal rules restrict any use of the information to criminally investigate or prosecute any alcohol or drug abuse patient.[facility] Hospital[facility] the event this information is protected by the Federal Confidentiality of Alcohol and Drug Abuse Patient Records regulations: The Federal rules restrict any use of the information to criminally investigate or prosecute any alcohol or drug abuse patient.[facility] Hospital[facility] the event this information is protected by the Federal Confidentiality of Alcohol and Drug Abuse Patient Records regulations: The Federal rules restrict any use of the information to criminally investigate or prosecute any alcohol or drug abuse patient.[facility] Hospital[facility] the event this information is protected by the Federal Confidentiality of Alcohol and Drug Abuse Patient Records regulations: The Federal rules restrict any use of the information to criminally investigate or prosecute any alcohol or drug abuse patient.[facility] [facility] HospitalIn the event this information is protected by the Federal Confidentiality of Alcohol and Drug Abuse Patient Records regulations: The Federal rules restrict any use of the information to criminally investigate or prosecute any alcohol or drug abuse patient.[facility] HospitalIn the event this information is protected by the Federal Confidentiality of Alcohol and Drug Abuse Patient Records regulations: The Federal rules restrict any use of the information to criminally investigate or prosecute any alcohol or drug abuse patient.[facility] HospitalIn the event this information is protected by the Federal Confidentiality of Alcohol and Drug Abuse Patient Records regulations: The Federal rules restrict any use of the information to criminally investigate or prosecute any alcohol or drug abuse patient.[facility] HospitalIn the event this information is protected by the Federal Confidentiality of Alcohol and Drug Abuse Patient Records regulations: The Federal rules restrict any use of the information to criminally investigate or prosecute any alcohol or drug abuse patient.[facility] HospitalIn the event this information is protected by the Federal Confidentiality of Alcohol and Drug Abuse Patient Records regulations: The Federal rules restrict any use of the information to criminally investigate or prosecute any alcohol or drug abuse patient.[facility] HospitalIn the event this information is protected by the Federal Confidentiality of Alcohol and Drug Abuse Patient Records regulations: The Federal rules restrict any use of the information to criminally investigate or prosecute any alcohol or drug abuse patient.[facility] HospitalIn the event this information is protected by the Federal Confidentiality of Alcohol and Drug Abuse Patient Records regulations: The Federal rules restrict any use of the information to criminally investigate or prosecute any alcohol or drug abuse patient.[facility] HospitalIn the event this information is protected by the Federal Confidentiality of Alcohol and Drug Abuse Patient Records regulations: The Federal rules restrict any use of the information to criminally investigate or prosecute any alcohol or drug abuse patient.[facility] HospitalIn the event this information is protected by the Federal Confidentiality of Alcohol and Drug Abuse Patient Records regulations: The Federal rules restrict any use of the information to criminally investigate or prosecute any alcohol or drug abuse patient.[facility] HospitalIn the event this information is protected by the Federal Confidentiality of Alcohol and Drug Abuse Patient Records regulations: The Federal rules restrict any use of the information to criminally investigate or prosecute any alcohol or drug abuse patient.[facility] HospitalIn the event this information is protected by the Federal Confidentiality of Alcohol and Drug Abuse Patient Records regulations: The Federal rules restrict any use of the information to criminally investigate or prosecute any alcohol or drug abuse patient.[facility] HospitalIn the event this information is protected by the Federal Confidentiality of Alcohol and Drug Abuse Patient Records regulations: The Federal rules restrict any use of the information to criminally investigate or prosecute any alcohol or drug abuse patient.[facility] HospitalIn the event this information is protected by the Federal Confidentiality of Alcohol and Drug Abuse Patient Records regulations: The Federal rules restrict any use of the information to criminally investigate or prosecute any alcohol or drug abuse patient.[facility] HospitalIn the event this information is protected by the Federal Confidentiality of Alcohol and Drug Abuse Patient Records regulations: The Federal rules restrict any use of the information to criminally investigate or prosecute any alcohol or drug abuse patient.[facility] HospitalIn the event this information is protected by the Federal Confidentiality of Alcohol and Drug Abuse Patient Records regulations: The Federal rules restrict any use of the information to criminally investigate or prosecute any alcohol or drug abuse patient.[facility] HospitalIn the event this information is protected by the Federal Confidentiality of Alcohol and Drug Abuse Patient Records regulations: The Federal rules restrict any use of the information to criminally investigate or prosecute any alcohol or drug abuse patient.[facility] HospitalIn the event this information is protected by the Federal Confidentiality of Alcohol and Drug Abuse Patient Records regulations: The Federal rules restrict any use of the information to criminally investigate or prosecute any alcohol or drug abuse patient.[facility] HospitalIn the event this information is protected by the Federal Confidentiality of Alcohol and Drug Abuse Patient Records regulations: The Federal rules restrict any use of the information to criminally investigate or prosecute any alcohol or drug abuse patient.[facility] HospitalIn the event this information is protected by the Federal Confidentiality of Alcohol and Drug Abuse Patient Records regulations: The Federal rules restrict any use of the information to criminally investigate or prosecute any alcohol or drug abuse patient.[facility] HospitalIn the event this information is protected by the Federal Confidentiality of Alcohol and Drug Abuse Patient Records regulations: The Federal rules restrict any use of the information to criminally investigate or prosecute any alcohol or drug abuse patient.[facility] HospitalIn the event this information is protected by the Federal Confidentiality of Alcohol and Drug Abuse Patient Records regulations: The Federal rules restrict any use of the information to criminally investigate or prosecute any alcohol or drug abuse patient.[facility] HospitalIn the event this information is protected by the Federal Confidentiality of Alcohol and Drug Abuse Patient Records regulations: The Federal rules restrict any use of the information to criminally investigate or prosecute any alcohol or drug abuse patient.[facility] HospitalIn the event this information is protected by the Federal Confidentiality of Alcohol and Drug Abuse Patient Records regulations: The Federal rules restrict any use of the information to criminally investigate or prosecute any alcohol or drug abuse patient.[facility] HospitalIn the event this information is protected by the Federal Confidentiality of Alcohol and Drug Abuse Patient Records regulations: The Federal rules restrict any use of the information to criminally investigate or prosecute any alcohol or drug abuse patient.[facility] HospitalIn the event this information is protected by the Federal Confidentiality of Alcohol and Drug Abuse Patient Records regulations: The Federal rules restrict any use of the information to criminally investigate or prosecute any alcohol or drug abuse patient.[facility] HospitalIn the event this information is protected by the Federal Confidentiality of Alcohol and Drug Abuse Patient Records regulations: The Federal rules restrict any use of the information to criminally investigate or prosecute any alcohol or drug abuse patient.[facility] HospitalIn the event this information is protected by the [facility] Confidentiality of Alcohol and Drug Abuse Patient Records regulations: The Federal rules restrict any use of the information to criminally investigate or prosecute any alcohol or drug abuse patient.[facility] HospitalIn the event this information is protected by the Federal Confidentiality of Alcohol and Drug Abuse Patient Records regulations: The Federal rules restrict any use of the information to criminally investigate or prosecute any alcohol or drug abuse patient.[facility] Care Teams (unrecognized sec tion and content) Tax Appraiser Relationship Specialty Start Date End Date Ammon Lucas MD [address] [place] [address] PCP - General 06/18/18 Tax Appraiser Relationship Specialty Start Date End Date Ammon Lucas MD [address] [place] [address] PCP - General 06/18/18 Tax Appraiser Relationship Specialty Start Date End Date Ammon Lucas MD [address] [place] [phone] Referring Family Medicine 09/08/23 Tax Appraiser Relationship Specialty Start Date End Date Ammon Lucas MD [address] [place] [place] [place] [address] Referring Family Medicine 09/08/23 Tax Appraiser Relationship Specialty Start Date End Date Ammon Lucas MD [address] [place] [place] [address] PCP - General Family Medicine 12/18/23 Ammon Lucas MD [address] [place] [place] [address] Referring Family Medicine 09/08/23 Tax Appraiser Relationship Specialty Start Date End Date Ammon Lucas MD [address] [place] [address] PCP - General Family Medicine 12/18/23 Ammon Lucas MD [address] [place] [place] [address] Referring Family Medicine 09/08/23 Tax Appraiser Relationship Specialty Start Date End Date Ammon Lucas MD [address] [place] [place] [address] PCP - General Family Medicine 12/18/23 Ammon Lucas MD [address] [place] [place] [address] Referring Family Medicine 09/08/23 Tax Appraiser Relationship Specialty Start Date End Date Ammon Lucas MD [address] [place] [place] [address] PCP - General Family Medicine 12/18/23 Ammon Lucas MD [address] [place] [place] [address] Referring Family Medicine 09/08/23 Tax Appraiser Relationship Specialty Start Date End Date Ammon Lucas MD [address] [place] [address] PCP - General Family Medicine 12/18/23 Ammon Lucas MD [address] [place] [place] [address] Referring Family Medicine 09/08/23 Tax Appraiser Relationship Specialty Start Date End Date Ammon Lucas MD [address] [place] [place] [address] PCP - General Family Medicine 12/18/23 Ammon Lucas MD [address] [place] [address] Referring Family Medicine 09/08/23 Tax Appraiser Relationship Specialty Start Date End Date Ammon Lucas MD [address] [place] [place] [address] PCP - General Family Medicine 12/18/23 Ammon Lucas MD [address] [place] [address] Referring Family Medicine 09/08/23 Tax Appraiser Relationship Specialty Start Date End Date Ammon Lucas MD [address] [place] [address] PCP - General Family Medicine 12/18/23 Ammon Lucas MD [address] [place] [address] Referring Family Medicine 09/08/23 Tax Appraiser Relationship Specialty Start Date End Date Ammon Lucas MD [address] [place] [place] [address] PCP - General Family Medicine 12/18/23 Ammon Lucas MD [address] [place] [address] Referring Family Medicine 09/08/23 Tax Appraiser Relationship Specialty Start Date End Date Ammon Lucas MD [address] [place] [address] PCP - General Family Medicine 12/18/23 Ammon Lucas MD [address] [place] [address] Referring Family Medicine 09/08/23 Tax Appraiser Relationship Specialty Start Date End Date Ammon Lucas MD [address] [place] [address] PCP - General Family Medicine 12/18/23 Ammon Lucas MD [address] [place] [address] Referring Family Medicine 09/08/23 Tax Appraiser Relationship Specialty Start Date End Date Ammon Lucas MD [address] [place] [address] PCP - General Family Medicine 12/18/23 Ammon Lucas MD [address] [place] [address] Referring Family Medicine 09/08/23 Tax Appraiser Relationship Specialty Start Date End Date Ammon Lucas MD [address] [place] [address] PCP - General Family Medicine 12/18/23 Ammon Lucas MD [address] [place] [address] Referring Family Medicine 09/08/23 Tax Appraiser Relationship Specialty Start Date End Date Ammon Lucsa MD [address] [place] [address] PCP - General Family Medicine 12/18/23 Ammon Lucas MD [address] [place] [address] Referring Family Medicine 09/08/23 Tax Appraiser Relationship Specialty Start Date End Date Ammon Lucas MD [address] [place] [address] PCP - General Family Medicine 12/18/23 Ammon Lucas MD [address] [place] [address] Referring Family Medicine 09/08/23 Tax Appraiser Relationship Specialty Start Date End Date Ammon Lucas MD [address] [place] [address] PCP - General Family Medicine 12/18/23 Ammon Lucas MD [address] [facility] [place] [address] Referring Family Medicine 09/08/23 Tax Appraiser Relationship Specialty Start Date End Date Ammon Lucas MD [address] [place] [place] [address] PCP - General Family Medicine 12/18/23 Ammon Lucas MD [address] [place] [place] [address] Referring Family Medicine 09/08/23 Tax Appraiser Relationship Specialty Start Date End Date Ammon Lucas MD [address] [place] [place] [address] PCP - General Family Medicine 12/18/23 Ammon Lucas MD [address] [place] [place] [address] Referring Family Medicine 09/08/23 Tax Appraiser Relationship Specialty [place] [address] [place] [address], [place] [phone] PCP - General 06/18/18 Tax Appraiser Relationship Specialty Start Date End Date Ammon Lucas MD [address] [facility] [place] [address] PCP - General Family Medicine 12/18/23 Ammon Lucas MD [address] [place] [place] [address] Referring Family Medicine 09/08/23 Tax Appraiser Relationship Specialty Start Date End Date Ammon Lucas MD [address] [place] [address] PCP - General Family Medicine 12/18/23 Ammon Lucas MD [address] [place] [address] Referring Family Medicine 09/08/23 Tax Appraiser Relationship Specialty Start Date End Date Ammon Lucas MD [address] [place] [address] PCP - General Family Medicine 12/18/23 Ammon Lucas MD [address] [place] [address] Referring Family Medicine 09/08/23 Tax Appraiser Relationship Specialty Start Date End Date Ammon Lucas MD [address] [facility] [place] [address] PCP - General Family Medicine 03/18/23 Tax Appraiser Relationship Specialty Start Date End Date Ammon Lucas MD [address] [facility] [place] [address] PCP - General Family Medicine 03/18/23 FOR RECORDS PERTAINING TO PATIENTS WHO ARE [...] BE BASED ON THE PRIMARY CLINICAL RECORDS. [facility] [employer] [facility]. provides no warranty or guarantee of the accuracy or completeness of information in this document.
== END 2024-11-01 09:59 | disposition home or self-care (01) ==
LOC: EC 09:59
PROVIDERS: PCP Family Medicine; Visit Provider Orthopaedic Surgery
DX: S32.591D Other specified fracture of right pubis, subsequent encounter for fracture with routine healing (principal); S32.511D Fracture of superior rim of right pubis, subsequent encounter for fracture with routine healing; S32.512D Fracture of superior rim of left pubis, subsequent encounter for fracture with routine healing
CPT/HCPCS: 72170

== ENCOUNTER 2024-11-29 09:04 | Outpatient (OUT) | payer MEDICARE, SELFPAY ==
--- NOTE | 2024-11-29 | XR_ITS ---
The [address] [address] Patient Name: ZAYNAB LUTZ MRN: [id number] date: 1955 Sex: F Assigned Patient Location: Current Patient Location: Accession/Order Number: [id number] Exam Date: 11/29/2024 09:10 Report Date: 11/29/2024 17:49 At the request of: DEREK PATEL Procedure: XR pelvis 1-2V EXAM: XR pelvis 1-2V HISTORY: PELVIS PAIN COMPARISON: X-ray 11/01/2024. MRI right hip 09/15/2024. FINDINGS: 2 views pelvis were performed. There is redemonstration of right superior and inferior pubic rami fractures with interval healing. The parasymphyseal fracture noted on MR is not well visualized on this study. Mild degenerative changes of the hips and spine. XR/XR pelvis 1-2V IMPRESSION: Healing right pubic rami fractures. Electronically authenticated by: DEREK RICE Date: 11/29/2024 17:49
== END 2024-11-29 09:05 | disposition home or self-care (01) ==
PROVIDERS: PCP Family Medicine; Visit Provider Orthopaedic Surgery
DX: S32.512D Fracture of superior rim of left pubis, subsequent encounter for fracture with routine healing (principal); S32.511D Fracture of superior rim of right pubis, subsequent encounter for fracture with routine healing; S32.591D Other specified fracture of right pubis, subsequent encounter for fracture with routine healing
CPT/HCPCS: 72170

== ENCOUNTER 2024-12-06 21:35 | Outpatient (REF) | payer MEDICARE, SELFPAY ==
--- OUTSIDE RECORDS SUMMARY | 2024-12-06 21:40 | XMS_ITS | CCD ---
Author Organization [facility] Care Team Providers Care Barrel Maker Name Role Phone Joel Monroe Unavailable Unavailable Joel Monroe Unavailable Unavailable Joel Monroe Unavailable Unavailable AMMON LUCAS~[id number] UNKNOWN Unavailable Unavailable Joel Monroe Unavailable Unavailable Joel Monroe Unavailable Unavailable Joel Monroe Unavailable Unavailable AMMON LUCAS~[id number] UNKNOWN Unavailable Unavailable Manuela Aly Unavailable Ayaka Joyner Unavailable Ammon Lucas Unavailable NAVEEN KAHN Admitting Unavailable NAVEEN KAHN Attending Unavailable YRIS ., DELIA TOLENTINO Consulting Unavailmindy LUCAS, DR AMMON Peres Primary Care Unavailable HAY ., DR KEITA Admitting Unavailable HAY ., DR KIETA Attending Unavailable Derek Mccray Consulting Unavailable LANCE, DR AMMON Peres Primary Care Unavailable HAY ., DR KEITA Consulting Unavailable ELIE NEVES Consulting Unavailable HAY ., DR KEITA Admitting [...] Peres Consulting Unavailable Unavailable Primary Care Provider UnavailAmomn Guzman MD Unavailable Ammon Lucas MD Primary Care Provider [phone] Ammon Lucas MD Primary Care Provider AMMON LUCAS Referring Unavailable AMMON LUCAS Primary Care Unavailable LUCAS, AMMON E Referring Unavailable LUCAS, AMMON E Primary Care Unavailable TENISHA, TESSA K Referring Unavailable LUCAS, AMMON E Primary Care Unavailable TENISHA, TESSA K Referring Unavailable LUCAS, AMMON E Primary Care Unavailable TENISHA, TESSA K Attending Unavailable LUCAS, AMOMN Referring Unavailable TENISHA, TESSA K Attending Unavailable [...] Primary Care Unavailable Unavailable Primary Care Provider Ammon Hodges MD Primary Care Provider [phone] ELTEDEVONMY, CHIP Attending Unavailable LUCAS, AMMON E Primary Care Unavailable ELTEMAMY, MOHAMED Referring Unavailable ULCAS, AMMON E Primary Care Unavailable RINA FOX Attending Unavailable SELF Referring Unavailable LUCAS, AMMON E Primary Care Unavailable RADU DELEON Attending Unavailable RINA FOX Referring Unavailable LUCAS, AMMON E Primary Care Unavailable LUCAS, AMMON E Primary Care Unavailable LUCAS, AMMON E Primary Care Unavailable LANCE, AMMON E Primary Care Unavailable ELTEMAMY, MICHAELAMED Attending Unavailable LUCAS, AMMON E Primary Care Unavailable LUCAS, AMMON E Primary Care Unavailable ELTEMAMY, MICHAELAMED Attending Unavailable ELTEMAMY, MOHAMED Referring Unavailable LUCAS, AMMON E Primary Care Unavailable AUGUSTINA VARGAS Attending Unavailable LUCAS, AMMON E Primary Care Unavailable PAGE BUCHANAN Attending Unavailable ELTEMAMY, MOHAMED Attending Unavailable LUCAS, AMMON E Primary Care Unavailable AUGUSTINA VARGAS Attending Unavailable AUGUSTINA VARGAS Referring Unavailable LUCAS, AMMON E Primary Care Unavailable ELTEMAMY, MOHAMED Admitting Unavailable ELTEMAMY, MOHAMED Attending Unavailable LUCAS, AMMON E Primary Care Unavailable Ammon Lucas MD Primary Care Provider STRASBURG, AUGUSTINA M Referring Unavailable STRASBURG, AUGUSTINA [...] Referring Unavailable STRASBURG, AUGUSTINA M Referring Unavailable Allergies Allergy Classification Reported Allergen(s) Allergy Type Date of Onset Reaction(s) Facility (9 sources) amoxicillin; Translations: [amoxicillin] Drug Allergy 02-13-20 17 Unknown [facility] Repository (20 sources) Bee/Wasp/Ant venom; Translations: [Bee Stings] Propensity to adverse reactions (disorder) Unknown [facility]ository (20 sources) clindamycin; Translations: [clindamycin] Drug Allergy 09-24-20 15 Rash, Shortness of Breath, Hives [facility] (20 sources) doxycycline; Translations: [doxycycline] Drug Allergy 03-03-20 23 Rash, Hives [facility] (12 sources) Penicillins; Translations: [penicillins] Propensity to adverse reactions (disorder) 02-13-20 17 Hives, Rash, Intolerance [facility] Repository (5 sources) Penicillin; Translations: [penicillin] Drug Allergy 06-18-20 18 Unknown [facility] Repository (11 sources) Bee pollen Drug Allergy 06-17-20 18 Comment:Bee Stings [facility] Other (11 sources) Codeine Drug Allergy 08-04-20 18 Comment:upset stomach [facility] Other (20 sources) Codeine; Translations: [CODEINE] Drug Allergy 06-17-20 18 GI Upset, GI intolerance, GI Disturbance [facility] (11 sources) Pseudoephedrine Drug Allergy 08-04-20 18 Unknown [facility] (6 sources) patient allergy list reviewed by nurse or physicia Propensity to adverse reactions 08-10-20 Comment:Done [facility] Other (3 sources) Allergies Reconciled Propensity to adverse reactions Unknown [facility] Other (1 source) Substance with penicillin structure and antibacterial mechanism of action (substance) Drug allergy 08-04-20 18 Unknown [facility] (7 sources) Fluconazole Drug Allergy dizziness [facility] Other (20 sources) Venom-Honey Bee; Translations: [VENOM-HONEY BEE] Drug Allergy 12-05-19 Rash [facility] (14 sources) Doxycycline; Translations: [DOXYCYCLINE HYCLATE] Drug Allergy 03-03-20 Rash [facility] Rep[facility] (3 sources) BEE VENOM PROTEIN (HONEY BEE); Translations: [BEE VENOM PROTEIN (HONEY BEE)] Propensity to adverse reactions to drug (disorder) 12-05-19 [facility] (4 sources) Bee pollen Allergy to substance 04-12-20 [facility] (4 sources) Fluconazole Allergy to substance 04-12-20 Dizziness [facility] (4 sources) Honey bee venom Allergy to substance 12-05-19 Rash, Hives [facility] (4 sources) Pseudoephedrine Drug Allergy 04-12-20 [facility] Medications Current Medications Medication Drug Class(es) Dates Sig (Normalized) Sig (Original) acetaminophen 500 mg oral tablet (6 sources) take 2 tablets by mouth every six hours as needed acetaminophen (Tylenol) 500 MG tablet Take 1,000 mg by mouth every 6 (six) hours if needed Active End: 11-12-2023 take 1 tablet by mouth every six hours as needed for pain acetaminophen (TYLENOL EXTRA STRENGTH) 500 mg tablet Take 1 tablet (500 mg total) by mouth every 6 (six) hours as needed for pain. 0 11/12/2023 Discontinued (Therapy completed) acetaminophen 325 mg / HYDROcodone bitartrate 5 mg oral tablet (20 sources) Opioid Agonist Start: 08-31-2020 End: 06-03-2024 take 1 tablet by mouth every six hours as needed HYDROcodone-acetaminophen (NORCO) 5-325 mg per tablet Take 1 tablet by mouth every 6 (six) hours as needed. 02/25/2023 Active Comment on above: Take 1 tablet by brad th every 6 hours as needed for pain. atorvastatin 20 mg oral tablet (20 sources) HMG-CoA Reductase Inhibitor Start: 06-12-2023 End: 06-06-2024 take 1 tablet by mouth in the morning atorvastatin (LIPITOR) 20 mg tablet Take 1 tablet (20 mg total) by mouth in the morning. 90 tablet 07/02/2024 Active Lipitor Active Comment on above: Take [...] (20 sources) Acetylcholine Release Inhibitor Start : 05-28 inject 100 [IU] by intramuscular injection every [...] [facility]) 600-800 MG-UNIT chewable tablet (4 sources) Calcium Carbonat e-Vit D-Min (Caltrate [facility]) 600-800 MG-UNIT chewable tablet Chew Active CALCIUM CARBONATE-VITAMIN D3 ORAL (6 sources) take 600 mg by mouth in the morning CALCIUM CARBONATE-VITAMIN D3 ORAL Take 600 mg by mouth in the morning. Active take 600 mg by mouth in the morn ing CALCIUM CARBONATE-VITAMIN D3 ORAL Take 600 mg by mouth in the morning. 0 Active cyclobenzaprine hydrochloride 5 mg oral tablet (19 sources) Muscle Relaxant Start: 05-27-2024 End: 08-17-2024 take 1 tablet by mouth every twenty-four hours as needed cyclobenzaprine (Flexeril) 5 MG tablet Take 5 mg by mouth Daily as needed 05/27/2024 Active take 2 tablets by mo uth three times daily as needed for muscle spasms cyclobenzaprine (FLEXERIL) 5 mg tablet T hedy 2 tablets (10 mg total) by mouth 3 (three) times a day as needed for muscle spasms. Active estradiol 0.1 mg/ml vaginal cream (8 sources) Estrogen Start: 07-06-2024 estradiol (EST RACE) 0.01 % (0.1 mg/gram) vaginal cream Indications: Vaginal dryness Use 0.5 g vaginally daily at bedtime. Apply finger tipped size to vulva, urethra nightly 42.5 g 2 07/06/2024 Active fluticasone propionate 0.05 mg/actuat metered dose nasal spray (20 sources) Corticosteroid take 1 spray(s) nasal route in the morning fluticasone (Flonase) 50 MCG/ACT nasal spray Administer 1 spray into affected nostril(s) in the morning. Active fluticasone (STEVAN NASE) 50 mcg/actuation nasal spray Use 1 [place] in the nose as needed for cold/allergy symptoms. Take in allergy season Active fluticasone (STEVAN NASE) 50 mcg/actuation nasal spray Use 1 [place] in the nose once daily. 0 Active FLONASE Active Flonase Active Flonase Sharon-Juwan garzon Comment on above: Use 1 [place] in the n ose once daily. Use 1 [place] in the n ose as needed for cold/allergy symptoms. Take in allergy season gabapentin 300 mg oral capsule (20 sources) Anti-epileptic Agent Start: 0 End: 4 take 1 capsule by mouth three times daily gabapentin (NEURONTIN) 300 mg capsule Indications: neuropathic pain Take 1 capsule (300 mg total) by mouth 3 (three) times a day Indications: neuropathic pain. 07/02/2023 Active Comment on above: Take 300 mg by mouth as needed for pain. ibuprofen 200 mg oral tablet (20 sources) Nonsteroidal Anti-inflammatory Drug take 2 tablets by mouth every six hours as needed ibuprofen 200 MG tablet Take 400 mg by mouth every 6 (six) hours if needed Active take 3-4 tablets by mouth twice daily as needed ibuprofen (MOTRIN) 200 mg tablet Take 40 0 mg by mouth two times a day. 400-800 mg 3-4 PRN Active take 2 tablets by mouth twice da aby ibuprofen (MOTRIN) 200 mg tablet Take 400 mg by mouth two times a day. 0 Active Comment on above: Take 400 mg by mouth every 6 hours as needed for pain. Take 400 mg by mouth two times a day. 12 hr loratadine 5 mg / pseudoephedrine sulfate 120 mg extended release oral tablet (11 sources) alpha-Adrenergic Agonist take 1 tablet by mouth once in the morning, then take 1 tablet by mouth every twelve hours in the evening loratadine-pseudoeph edrine ER (Claritin-D 12-hour) 5-120 MG 12 hr tablet Take 1 tablet by mouth in the morning and 1 tablet in the evening. Active methocarbamol 500 mg oral tablet (3 sources) Muscle Relaxant Start: 03-05-20 End: 06-03-20 24 take 1 tablet by mouth three times [...] once daily. 06/18/2018 Active Singulair Active Singulair Darline carroll Comment on above: Take 10 mg by mouth once daily. nystatin 240767 unt/ml oral suspension (11 sources) Polyene Antifungal Start: 06-05-2023 take 4 mL by mouth four times daily Nystatin 670782 UNIT/ML 4 mL Mouth/Throat Four times a day for 14 day(s) May, Active Nystatin 158643 UNIT/ML swish and swallow 5 milliliters four [...] 0.4 mg oral capsule (17 sources) alpha-Adrenergic Ambre Start: 03-05-2024 End: 06-06-2024 take 1 capsule by mouth once daily at bedtime tamsulosin (FLOMAX) 0.4 mg Take 1 capsule by mouth daily at bedtime. 42 capsule 03/05/2024 06/06/2024 Discontinued take 1 capsule by [facility] every twenty-four hours Flomax 0.4 MG 1 capsule Orally Once a day for 15 days Active Problems Active Problems Problem Classification Problem Date Documented Da te Episodic/Chronic Calculus of urinary tract (15 sources) Kidney stone; Translations: [Calculus of kidney] Episodic Chronic kidney disease (1 source) Kidney transplant status; Translations: [Kidney transplant status] Onset: 04-26-2024 Chronic Genitourinary symptoms and ill-defined conditions (1 source) Dysuria Episodic Headache; including migraine (3 sources) Headache; Translations: [Headache, unspecified] Episodic Lymphadenitis (3 sources) Localized enlarged lymph nodes; Translations: [Localized enlarged lymph nodes] Episodic Menopausal disorders (1 source) Atrophic vaginitis; Translations: [Postmenopausal atrophic vaginitis] 07-06-2024 Chronic Mycoses (5 sources) Candidiasis, unspecified; Translations: [Candidal stomatitis] Onset: 11-25-2022 Episodic Osteoporosis (11 sources) Osteoporosis; Translations: [Age-related osteoporosis without current pathological fracture] Onset: 03-04-2023 03-04-2023 Chronic Other aftercare (1 source) Encounter for aftercare following kidney transplant; Translations: [Encounter for aftercare following kidney transplant] Onset: 04-07-2024 Chronic Other aftercare (1 source) 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; Translations: [OTH PETROLEUM PLANT OPERATOR CURRENT DRUG THERAPY] Onset: 02-25-2023 Episodic Other [...] sensorineural hearing loss] Onset: 11-12-2023 Chronic Other ear and sense organ disorders (1 source) Sensorineural hearing loss, bilateral; Translations: [Sensorineural hearing loss, bilateral] 10-03-2023 Chronic Other ear and sense organ disorders (1 source) Neural hearing loss; Translations: [Unspecified sensorineural hearing loss] 11-12-2023 Chronic Other female genital disorders (1 [...] conditions (not mental disorders or infectious disease) (3 sources) CT of chest abnormal; Translations: [Abnormal findings on diagnostic imaging of other specified body structures] Chronic Other skin disorders (3 sources) Localized swelling, mass and lump, neck; Translations: [Localized swelling, mass and lump, neck] Episodic Other upper respiratory disease (3 sources) Allergic rhinitis due to pollen; Translations: [Allergic rhinitis due to pollen] Onset: 06-17-2018 Chronic Other upper respiratory disease (11 sources) Chronic rhinitis; Translations: [Chronic rhinitis] Onset: 03-17-2023 Resolved: 06-02-2024 06-02-2024 Chronic Other upper respiratory infections (20 sources) Sinusitis; Translations: [Chronic sinusitis, unspecified] Chronic Other upper respiratory infections (3 sources) Acute maxillary sinusitis, unspecified; Translations: [Acute recurrent maxillary sinusitis] Episodic Peripheral and visceral atherosclerosis (11 sources) Peripheral vascular disease; Translations: [Peripheral vascular disease, unspecified] Onset: 03-17-2023 03-17-2023 Chronic Phlebitis; thrombophlebitis and thromboembolism (1 source) [...] Date Documented Da te Episodic/Chronic Abdominal pain (20 sources) Pelvic and perineal pain; Translations: [Flank pain] Onset: 02-22-2023 Resolved: 12-01-2023 Episodic Aortic; peripheral; and visceral artery aneurysms (20 sources) Abdominal aortic ectasia; Translations: [Abdominal aortic ectasia] Onset: 08-20-2023 Resolved: 12-01-2023 12-18-2023 Chronic Cardiac dysrhythmias (20 sources) ECG: sinus bradycardia; Translations: [Bradycardia, unspecified] Onset: 02-20-2024 Resolved: 06-02-2024 02-20-2024 Episodic Conditions associated with dizziness or vertigo (3 sources) Benign paroxysmal positional vertigo; Translations: [Benign paroxysmal positional vertigo] Onset: 06-17-2018 Episodic Diseases of mouth; excluding dental (16 sources) Dry mouth, unspecified; Translations: [Chronic sialoadenitis] Onset: 10-07-2023 Resolved: 12-01-2023 Episodic Disorders of lipid metabolism (20 sources) Hyperlipidemia; Translations: [Other hyperlipidemia] Onset: 02-19-2024 Resolved: 06-02-2024 02-19-2024 Chronic Headache; including migraine (11 sources) Tension-type headache; Translations: [Tension-type headache, unspecified, not intractable] Onset: 03-17-2023 Resolved: 06-02-2024 06-02-2024 Chronic Mood disorders (7 sources) Mood disorders Onset: 03-29-2020 03-29-2020 Nonspecific chest pain (11 sources) Chest pain; Translations: [Chest pain, unspecified] Onset: 06-12-2023 Resolved: 12-01-2023 12-01-2023 Episodic Nutritional deficiencies (20 sources) Malnutrition (calorie); Translations: [Moderate protein-calorie malnutrition] Onset: 03-03-2024 Resolved: 06-02-2024 04-10-2024 Chronic Other aftercare (3 sources) Follow-up status; Translations: [Encounter for follow-up examination after completed treatment for conditions other than malignant neoplasm] Onset: 03-17-2023 03-17-2023 Episodic Other aftercare (1 source) Patient encounter status; Translations: [Encounter for follow-up examination after [...] ligament, unspecified site] Onset: 03-29-2020 Resolved: 06-02-2024 02-19-2024 Episodic Other connective tissue disease (1 source) Disorder of ligament, unspecified site; 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] Onset: 02-19-2024 Episodic Other diseases of veins and lymphatics (20 sources) Renal vascular disorder; Translations: [Compression of vein] Onset: 02-19-2024 Resolved: 06-02-2024 12-12-2023 Episodic Other diseases of veins and lymphatics (20 sources) Varices of ovary; 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] Onset: 02-19-2024 Resolved: 06-02-2024 02-19-2024 Episodic Other diseases of veins and lymphatics (11 sources) Venous stenosis; Translations: [Compression of vein] Onset: 03-29-2020 Resolved: 12-01-2023 12-01-2023 Episodic Other diseases of veins and lymphatics (1 source) Pelvic varices; Translations: [Ovarian varices] Onset: 02-19-2024 Episodic Other diseases of veins and lymphatics (1 source) Compression of vein; Translations: [Nutcracker phenomenon of renal vein] Onset: 02-19-2024 Episodic Other female genital disorders (11 sources) Pelvic congestion syndrome; Translations: [Other specified conditions associated with female genital organs and menstrual cycle] Onset: 06-04-2023 07-06-2024 Episodic Other gastrointestinal disorders (3 sources) Dysphagia; Translations: [Dysphagia, unspecified] Onset: 06-17-2018 Episodic Other gastrointestinal disorders (11 sources) Pharyngeal dysphagia; Translations: [Dysphagia, pharyngeal phase] Onset: 03-17-2023 Resolved: 06-02-2024 06-02-2024 Episodic Other lower respiratory disease (1 source) [...] cutis] Onset: 06-17-2018 Episodic Other skin disorders (4 sources) Mass of right submandibular region; Translations: [Localized swelling, mass and lump, head] Onset: 12-01-2023 Resolved: 12-01-2023 12-01-2023 Episodic Residual codes; unclassified (1 source) Localized edema; Translations: [Localized edema] Onset: 10-07-2023 Episodic Residual codes; unclassified (11 sources) Family history of aneurysm of abdominal aorta; Translations: [Family history of ischemic heart disease and other diseases of the circulatory system] Onset: 08-20-2023 Resolved: 12-01-2023 12-01-2023 Episodic Residual codes; unclassified (12 sources) Submandibular salivary gland swelling; Translations: [Localized edema] Onset: 10-07-2023 Resolved: 12-01-2023 12-01-2023 Episodic Spondylosis; intervertebral disc disorders; other back problems (4 sources) Neck pain; Translations: [Cervicalgia] Onset: 12-01-2023 [...] Test Name Value Interpretation Reference Range Facility [facility] 11-01-2024 [facility] Telephone ([facility]) ZAYNAB ZAIDI ([id number]) 1955 F Date Time Provider Department 11/01/24 AUGUSTINA VARGAS During your visit today, we recorded the following information about you: Nano Cline 11/01/2024 3:02 PM Signed Patient cleared by ortho to resume PFPT. Patient requesting new order placed and faxed to number below: Kira Alvarez RN 11/01/2024 3:59 PM Signed Order faxed with transmission receipt. Kira Alvarez RN November 01, 2024 3:59 PM Allergies As of Date: 11/01/2024 Noted Allergy Reaction CLINDAMYCIN 06/30/2018 2 - Rash 12 - Shortness of Breath DOXYCYCLINE 12/18/2023 2 - Rash VENOM-HONEY BEE 12/05/2019 2 - Rash CODEINE 06/30/2018 8 - GI Upset Date Reviewed: 07/06/2024 Reviewed by: Austin Morris RN - Fully Assessed Reason for Visit: Orders [681] Cmt: PFPT Prescriptions as of 11/01/2024 - cyclobenzaprine (FLEXERIL) 5 mg tablet 1 [...] (FLONASE) 50 mcg/actuation nasal spray Use 1 [place] in the nose as needed for cold/allergy symptoms. Take in allergy season - gabapentin (NEURONTIN) 300 mg capsule Take 300 mg by mouth as needed for pain. - montelukast (SINGULAIR) 10 mg tablet Take 10 mg by mouth once daily. - ibuprofen (MOTRIN) 200 mg tablet Take 400 mg by mouth two times a day. 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/2024 Narcotic drug use [F11.90] 02/19/2024 Sinus bradycardia on ECG [R00.1] 02/20/2024 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 Had to cancel all future PT appts and will need new order for end of of November/beginning of December. Also had to [...] Vargas MD 09/23/2024 3:10 PM Signed Sent ms Encounter Diagnosis ICD-10-CM 1. 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 Malnutrition of moderate degree (HCC) [E44.0] 03/03/2024 Encounter Status:Closed by TOSIN JIN on 09/21/24 [facility] Heidi 08-23-2024 [facility] Telephone ([facility]) ZAYNAB ZAIDI ([id number]) 1955 F Date Time Provider Department 08/23/24 AUGUSTINA VARGAS During your visit today, we recorded the following information about you: Nano Cline 08/23/2024 1:54 PM Signed Received call from pharmacy asking for clarification of directions for: cyclobenzaprine (FLEXERIL) 5 mg tablet States that direction says to use vaginally but prescription is for oral tablet Please advise: [id number] - [place] [address] - [address] [facility] - [phone] Morenita Lopez RN 08/23/2024 2:26 PM Signed Called [facility] to clarify that prescription is for Flexeril [...] (FLONASE) 50 mcg/actuation nasal spray Use 1 [place] in the nose as needed for cold/allergy [...] 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 Other hyperlipidemia [E78.49] 02/19/2024 Ovarian varices [I86.2] 02/19/2024 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/2024 Narcotic drug use [F11.90] 02/19/2024 Sinus bradycardia on ECG [R00.1] 02/20/2024 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 Malnutrition of moderate degree (HCC) [E44.0] 03/03/2024 Encounter Status:Closed by MORENITA LOPEZ on 08/23/24 [facility] Heidi 08-17-2024 [facility] ZAYNAB ZAIDI ([id number]) 1955 F Date Time Provider Department 08/17/24 AUGUSTINA VARGAS [facility] During your visit today, we recorded the following information about you: Augustina Vargas MD 08/17/2024 4:55 PM Signed Please put her on my schedule oct 05, 2024 at 2:30pm for botox, which is approved already Patient aware Augustina Vargas MD 08/18/2024 1:24 PM Signed Done Encounter Diagnosis ICD-10-CM 1. 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 Other hyperlipidemia [E78.49] 02/19/2024 Ovarian varices [I86.2] 02/19/2024 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/2024 Narcotic drug use [F11.90] 02/19/2024 Sinus bradycardia on ECG [R00.1] 02/20/2024 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 Malnutrition of moderate degree (HCC) [E44.0] 03/03/2024 Encounter Status:Closed by MARTINEZ STEELE on 08/19/24 [facility] CNOVon 07-06-2024 CNOV Office Visit (WHICCP ) ZAYNAB ZAIDI ([id number]) 1955 F Date Time Provider Department 07/06/24 10:30 AM [facility] During your visit today, we recorded the following information about you: Blood pressure Weight 132/70 61.6 kg Augustina Vargas MD 07/06/2024 11:47 AM Signed [facility] SECTION FOR CHRONIC PELVIC PAIN OUTPATIENT VISIT [...] Patient verba (more content not included)... Normal [facility] 06-06-2024 CNPN Telephone (GYNMN) ZAYNAB ZAIDI ([id number]) 1955 F Date Time Provider Department 06/06/24 AUGUSTINA VARGAS During your visit today, we recorded the following information about you: Augustina Vargas MD 06/06/2024 11:10 PM Signed Botox is approved; can she start PFPT if she desires and then do botox or do botox in office first available appointment Ricarda Power Martinez 06/07/2024 8:25 AM Signed Done Martinez Naveen Allergies As of Date: 06/06/2024 Noted Allergy [...] (FLONASE) 50 mcg/actuation nasal spray Use 1 [place] in the nose as needed for cold/allergy [...] 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 Other hyperlipidemia [E78.49] 02/19/2024 Ovarian varices [I86.2] 02/19/2024 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/2024 Narcotic drug use [F11.90] 02/19/2024 Sinus bradycardia on ECG [R00.1] 02/20/2024 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 Malnutrition of moderate degree (HCC) [E44.0] 03/03/2024 Encounter Status:Closed by RICARDA POWER MARTINEZ on 06/07/24 [facility] Heidi 06-04-2024 CNPN Telephone (WCTRMN) ZAYNAB ZAIDI ([id number]) 1955 F Date Time Provider Department 06/04/24 [facility] During your visit today, we recorded the following information about you: Aidee Delong RN 06/04/2024 10:38 AM Signed NICK 05/27/2024 Notes not yet complete Alysha Torres RN ==== Instructions See pelvic floor PHYSICAL THERAPY You can search for others [email or web address], enter zip or city You can click [...] (FLONASE) 50 mcg/actuation nasal spray Use 1 [place] in the nose as needed for cold/allergy [...] 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 Other hyperlipidemia [E78.49] 02/19/2024 Ovarian varices [I86.2] 02/19/2024 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/2024 Narcotic drug use [F11.90] 02/19/2024 Sinus bradycardia on ECG [R00.1] 02/20/2024 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 Malnutrition of moderate degree (HCC) [E44.0] 03/03/2024 Encounter Status:Closed by KIRA ALVAREZ on 06/07/24 [facility] CNPYen 05-28-2024 CNPN Telephone (GYNMN) ZAYNAB ZAIDI ([id number]) 1955 F Date Time Provider Department 05/28/24 AUGUSTINA VARGAS During your visit today, we recorded the following information about you: [facility] Martinez 05/28/2024 10:00 AM Signed Reason for [...] visit in this department: 08/27/2024 08/27/2024 in [facility] with AUGUSTINA VAGRAS - 3 MO F/U - TVST ok per Dr. 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/2024 Narcotic drug use [F11.90] 02/19/2024 Sinus bradycardia on ECG [R00.1] 02/20/2024 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.] aortic aneurys (more content not included)... Normal [facility] ZAYNAB ZAIDI ([id number]) 1955 F Date Time Provider Department 05/27/24 9:00 AM [facility] During your visit today, we recorded the following information about you: Blood pressure Weight Height 146/80 60.3 kg 1.702 m Augustina Vargas MD 06/06/2024 11:06 PM Signed [facility] SECTION FOR CHRONIC PELVIC PAIN OUTPATIENT VISIT DATE 05/27/2024 OUTPATIENT VISIT TYPE CONSULT REFERRING PROVIDER: No ref. provider found PRIMARY CARE PROVIDER: Ammon Lucas MD PRIMARY CHAPERONE: Consultation requested by referring provider above for [...] pain. 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 Patient is postmenopausal. Cycles: Menopausal Last pap: Pap Results: WNL/neg HPV 03/2023 History of abnormal pap: No Lafferty: (MA intake) Dyspareunia: both insertional and deep [...] endorses Pain changes with bowel movements: endorses. Hersey scale: dnc Pudendal symptoms: (page 13) Pain [...] Urinary hesitancy/difficult (more content not included)... Normal [facility] URINALYSIS, REFLEX MICROSCOP ICon 05-27-2024 Bilirubin Ql (U) Negative Negative [facility] Clarity (Unsp spec) Clear Clear [facility] Color (U) Yellow Yellow [facility] Glucose Test strip (U) [Mass/Vol] Negative Negative [facility] Hemoglobin Ql (U) Negative Negative [facility] Interpretation and review of laboratory results Normal [facility] Ketones Ql (U) Negative Negative [facility] Leukocyte esterase Test strip Ql (U) Negative Negative [facility] Nitrite Ql (U) Negative Negative [facility] pH (U) 5.5 [pH] NINF - 8.5 [facility] Protein (U) [Mass/Vol] Negative Negative [facility] Specific gravity (U) [Rel density] 1.010 1.005 - 1.030 [facility] Urobilinogen Ql (U) 0.2 EU/dL 0.2-1.0 EU/dL [facility] This test was develo ped and its performance characteristics determined by [facility]'s Raoul Carrillo [facility] [place] ([facility] It has not been cleared or approved by the FDA. [facility] is regulated under CLIA as qualified to perform high-complexity testing. This test is used for clinical purposes. It should not be regarded as investigational or for research. [facility] Bilirubin Ql (U) Negative Normal Negative [facility] Comment on above: Order Comment: Specimen Type: URINE SPEC IMENOrdering Facility: [facility] Address: [address] [place] [address] Performed By: #### L [id number] ####[facility] LABCLIA [id number] [place] [address] [place] Clarity (Unsp spec) Clear Normal Clear [facility] Comment on above: Order Comment: Specimen Type: URINE SPEC IMENOrdering Facility: [facility] Address: [address] [place] [address] Performed By: #### L [id number] ####[facility] LABCLIA [id number] [place] [address] [place] Color (U) Yellow Normal Yellow [facility] Comment on above: Order Comment: Specimen Type: URINE SPEC IMENOrdering Facility: [facility] Address: [address] [place] [address] Performed By: #### L [id number] ####[facility] LABCLIA [id number] [place] [address] [place] Glucose Test strip (U) [Mass/Vol] Negative Normal Negative [facility] Comment on above: Order Comment: Specimen Type: URINE SPEC IMENOrdering Facility: [facility] Address: [address] [place] [address] Performed By: #### L [id number] ####[facility] LABCLIA [id number] [place] [address] [place] Hemoglobin Ql (U) Negative Normal Negative [facility] Comment on above: Order Comment: Specimen Type: URINE SPEC IMENOrdering Facility: [facility] Address: [address] [place] [address] Performed By: #### L [id number] ####[facility] LABCLIA [id number] [place] [address] [place] Ketones Ql (U) Negative Normal Negative [facility] Comment on above: Order Comment: Specimen Type: URINE SPEC IMENOrdering Facility: [facility] Address: [address] [place] [address] Performed By: #### L [id number] ####[facility] LABCLIA [id number] [place] [address] [place] Leukocyte esterase Test strip Ql (U) Negative Normal Negative [facility] Comment on above: Order Comment: Specimen Type: URINE SPEC IMENOrdering Facility: [facility] Address: [address] [place] [address] Performed By: #### L [id number] ####[facility] LABCLIA [id number] [place] [address] [place] Nitrite Ql (U) Negative Normal Negative [facility] Comment on above: Order Comment: Specimen Type: URINE SPEC IMENOrdering Facility: [facility] Address: [address] [place] [address] Performed By: #### L [id number] ####[facility] LABCLIA [id number] [place] [address] [place] pH (U) 5.5 [pH] Normal <8.5 [facility] Comment on above: Order Comment: Specimen Type: URINE SPEC IMENOrdering Facility: [facility] Address: [address] [place] [address] Performed By: #### L [id number] ####[facility] LABCLIA [id number] [place] [address] [place] Protein (U) [Mass/Vol] Negative Normal Negative [facility] Comment on above: Order Comment: Specimen Type: URINE SPEC IMENOrdering Facility: [facility] Address: [address] [place] [address] Performed By: #### L [id number] ####[facility] LABIA [id number] [place] [address] [place] Specific gravity (U) [Rel density] 1.010 Normal 1.005-1.03 0 [facility] Comment on above: Order Comment: Specimen Type: URINE SPEC IMENOrdering Facility: [facility] Address: [address] [place] [address] Performed By: #### L [id number] ####[facility] [id number] [place] [address] [place] Urobilinogen Ql (U) 0.2 EU/dL Normal 0.2-1.0 EU/dL [facility] Comment on above: Order Comment: Specimen Type: URINE SPEC IMENOrdering Facility: [facility] Address: [address] [place] [address] Performed By: #### L [id number] ####[facility] [id number] [place] [address] [place] CT CHEST WO [...] Villafuerte MD on 05/11/2024 8:36 AM Normal [facility] CREATININE, BLOOD (POC)on Creatinine [Mass/Vol] 0.80 mg/dL 0.7 - 1.4 mg/dL [facility] eGFR (POCT) mL/min/1.7 3 m2 [facility] Location:Radiology [facility], [address] [place] [address], [address] [place] [address] POINT OF CARE [facility] CT ABD/PEL W IVCONon 024 CT [...] obtained in 12 months --END OF FINDING-- Physician Support Coordinator: TRINI Transcribe Date/Time: Apr 30 2024 12:52P Dictated by : KARI LUJAN MD This examination was interpreted and the report reviewed and electronically signed by: KARI LUJAN MD on Apr 30 2024 1:16PM EST [id number] [id number] Invalid Interpretation Code [facility] PROGon 04-26-2024 NURSING PROG HNO ID: [id number] Author: JORGE OLEA RN Service: Radiology Author [...] DATE: April 26, 2024 TIME: 1:22 PM Normal [facility] 04-21-2024 CNPN Telephone (LITZY) ZAYNAB ZAIDI ([id number]) 1955 F Date Time Provider Department 04/21/24 [...] op f/up. She is seeing gynecology at [facility] on 05/27, will try to coordinate appt w/ Dr. Carr on that day. Jesús Borrero MD Allergies As of Date: 04/21/2024 Noted Allergy Reaction CLINDAMYCIN 06/30/2018 2 - Rash 12 - Shortness of Breath DOXYCYCLINE 12/18/2023 2 - Rash VENOM-HONEY BEE 12/05/2019 2 - Rash CODEINE 06/30/2018 8 - GI Upset Date Reviewed: 04/07/2024 Reviewed by: Iglesia Love, RN - Fully Assessed Prescriptions as of 04/21/2024 - tamsulosin (FLOMAX) 0.4 mg Take 1 capsule by mouth daily at bedtime. - calcium carbonate/vitamin D3 (CALTRATE 600 + D ORAL) Take 600 mg by mouth two times a day. - atorvastatin (LIPITOR) 20 mg tablet Take 20 mg by mouth every evening. 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 Malnutrition of moderate degree (HCC) [E44.0] 03/03/2024 Encounter Status:Closed by JESÚS BORRERO on 04/21/24 [facility] CNOVon 04-07-2024 CNOV Office Visit (UROSMN ) ZAYNAB ZAIDI ([id number]) 1955 F Date Time Provider Department 04/07/24 11:15 AM CHIP CARR UROSMN During your visit today, we recorded the following information about you: Pretty Rahman RN 04/07/2024 1:09 PM Signed Actual procedure/procedure scheduled: Yes Performing provider/scheduled provider: Yes Patient was roomed in: Q9- 06 Bilingual Account Manager offered:Patient declines Patient arrived in the room [...] post-procedure instructions (more content not included)... Normal [facility] CNDSon 03-05-2024 [facility] HNO ID: [id number] Author: CHIP CARR MD Service: Urology Author Type: Resident Type: Discharge Summary Filed: 03/22/2024 15:49 Note Text: Attestation signed by Chip Carr MD at 03/22/2024 3:49 PM Agree with the details as outlined be the resident/ fellow Chip Carr MD [facility] [place] [phone] or ([phone]) [facility] DISCHARGE SUMMARY Patient Name: Zaynab Zaidi [...] Your Medications These medications were sent to [facility] - [place] [address] - [address] [facility] - [phone] [place] [address] acetaminophen 500 mg tablet docusate sodium 100 mg capsule methocarbamol 750 mg tablet oxyCODONE IR 5 mg immediate release tablet tamsulosin 0.4 mg No future appointments. --- Ace Vera MD Normal [facility] Basic metabolic 2000 panelon 03-04-2024 Anion gap [Moles/Vol] 9 mmol/L Normal 9-18 [facility] Comment on above: Order Comment: Specimen Type: BLOOD SPEC IMENOrdering Facility: [facility] Address: [address] [place] [address] Performed By: #### 2 4321-2 ####[facility] LABCLIA [id number] [place] [address] [place] Calcium [Mass/Vol] 9.0 mg/dL Normal 8.5-10.2 [facility] Comment on above: Order Comment: Specimen Type: BLOOD SPEC IMENOrdering Facility: [facility] Address: [address] [place] [address] Performed By: #### 2 4321-2 ####[facility] LABCLIA [id number] [place] [address] [place] Chloride [Moles/Vol] 98 mmol/L Normal 97-105 [facility] Comment on above: Order Comment: Specimen Type: BLOOD SPEC IMENOrdering Facility: [facility] Address: [address] [place] [address] Performed By: #### 2 4321-2 ####[facility] LABCLIA [id number] [place] [address] [place] CO2 [Moles/Vol] 31 mmol/L High 22-30 [facility] Comment on above: Order Comment: Specimen Type: BLOOD SPEC IMENOrdering Facility: [facility] Address: [address] [place] [address] Performed By: #### 2 4321-2 ####[facility] LABIA [id number] [place] [address] [place] Creatinine [Mass/Vol] 0.81 mg/dL Normal 0.58-0.96 [facility] Comment on above: Order Comment: Specimen Type: BLOOD SPEC IMENOrdering Facility: [facility] Address: [address] [place] [address] Performed By: #### 2 4321-2 ####[facility] LABCLIA [id number] [place] [address] [place] Creatinine and Glomerular filtration rate.predicted panel (S/P/Bld) 80 mL/min/1.73m??? Normal >=60 [facility] Comment on above: Order Comment: Specimen Type: BLOOD SPEC IMENOrdering Facility: [facility] Address: [address] [place] [address] Result Comment: Lani mated Glomerular Filtration Rate [...] actual GFR. Performed By: #### 2 4321-2 ####[facility] LABIA [id number] [place] [address] [place] Glucose [Mass/Vol] 103 mg/dL High 74-99 [facility] Comment on above: Order Comment: Specimen Type: BLOOD SPEC IMENOrdering Facility: [facility] Address: [address] [place] [address] Result Comment: The [place] [employer] (ADA) provides guidance for cutoff [...] Standards of Medical Care in Diabetes 2016, [place] [employer]. Diabetes Care. 2016.39(Suppl 1). Performed By: #### 2 4321-2 ####[facility] LABIA [id number] [place] [address] [place] Potassium [Moles/Vol] 3.9 mmol/L Normal 3.7-5.1 [facility] Comment on above: Order Comment: Specimen Type: BLOOD SPEC IMENOrdering Facility: [facility] Address: [address] [place] [address] Performed By: #### 2 4321-2 ####[facility] LABCLIA [id number] [place] [address] [place] Sodium [Moles/Vol] 138 mmol/L Normal 136-144 [facility] Comment on above: Order Comment: Specimen Type: BLOOD SPEC IMENOrdering Facility: [facility] Address: [address] [place] [address] Performed By: #### 2 4321-2 ####[facility] LABIA [id number] [place] [address] [place] Urea nitrogen [Mass/Vol] 10 mg/dL Normal 7-21 [facility] Comment on above: Order Comment: Specimen Type: BLOOD SPEC IMENOrdering Facility: [facility] Address: [address] [place] [address] Performed By: #### 2 4321-2 ####[facility] LABIA [id number] [place] [address] [place] CBC W Auto Differential pane l (Bld)on 03-04-2024 Basophils (Bld) [#/Vol] 0.03 10*3/uL Normal <0.11 [facility] Comment on above: Order Comment: Specimen Type: BLOOD SPEC IMENOrdering Facility: [facility] Address: [address] [place] [address] Performed By: #### 5 7021-8 ####[facility] LABIA [id number] [place] [address] [place] Basophils/100 WBC (Bld) 0.4 % Normal [facility] Comment on above: Order Comment: Specimen Type: BLOOD SPEC IMENOrdering Facility: [facility] Address: [address] [place] [address] Performed By: #### 5 7021-8 ####[facility] LABIA [id number] [place] [address] [place] Differential cell count method Nom (Bld) Auto Normal [facility] Comment on above: Order Comment: Specimen Type: BLOOD SPEC IMENOrdering Facility: [facility] Address: [address] [place] [address] Performed By: #### 5 7021-8 ####[facility] LABCLIA [id number] [place] [address] [place] Eosinophils (Bld) [#/Vol] 0.08 10*3/uL Normal <0.46 [facility] Comment on above: Order Comment: Specimen Type: BLOOD SPEC IMENOrdering Facility: [facility] Address: [address] [place] [address] Performed By: #### 5 7021-8 ####[facility] LABIA [id number] [place] [address] [place] Eosinophils/100 WBC (Bld) 1.1 % Normal [facility] Comment on above: Order Comment: Specimen Type: BLOOD SPEC IMENOrdering Facility: [facility] Address: [address] [place] [address] Performed By: #### 5 7021-8 ####[facility] LABIA [id number] [place] [address] [place] Erythrocyte distribution width (RBC) [Ratio] 14.1 % Normal 11.5-15.0 [facility] Comment on above: Order Comment: Specimen Type: BLOOD SPEC IMENOrdering Facility: [facility] Address: [address] [place] [address] Performed By: #### 5 7021-8 ####[facility] LABIA [id number] [place] [address] [place] Hematocrit (Bld) [Volume fraction] 38.2 % Normal 36.0-46.0 [facility] Comment on above: Order Comment: Specimen Type: BLOOD SPEC IMENOrdering Facility: [facility] Address: [address] [place] [address] Performed By: #### 5 7021-8 ####[facility] LABCLIA [id number] [place] [address] [place] Hemoglobin (Bld) [Mass/Vol] 12.8 g/dL Normal 11.5-15.5 [facility] Comment on above: Order Comment: Specimen Type: BLOOD SPEC IMENOrdering Facility: [facility] Address: [address] [place] [address] Performed By: #### 5 7021-8 ####[facility] LABIA [id number] [place] [address] [place] Immature granulocytes (Bld) [#/Vol] 10*3/uL Normal <0.10 [facility] Comment on above: Order Comment: Specimen Type: BLOOD SPEC IMENOrdering Facility: [facility] Address: [address] [place] [address] Performed By: #### 5 7021-8 ####[facility] LABIA [id number] [place] [address] [place] Immature granulocytes/10 0 WBC (Bld) 0.1 % Normal [facility] Comment on above: Order Comment: Specimen Type: BLOOD SPEC IMENOrdering Facility: [facility] Address: [address] [place] [address] Performed By: #### 5 7021-8 ####[facility] LABIA [id number] [place] [address] [place] Lymphocytes (Bld) [#/Vol] 0.88 10*3/uL Low 1.00-4.00 [facility] Comment on above: Order Comment: Specimen Type: BLOOD SPEC IMENOrdering Facility: [facility] Address: [address] [place] [address] Performed By: #### 5 7021-8 ####[facility] LABIA [id number] [place] [address] [place] Lymphocytes/100 WBC (Bld) 11.8 % Normal [facility] Comment on above: Order Comment: Specimen Type: BLOOD SPEC IMENOrdering Facility: [facility] Address: [address] [place] [address] Performed By: #### 5 7021-8 ####[facility] LABIA [id number] [place] [address] [place] MCH (RBC) [Entitic mass] 29.2 pg Normal 26.0-34.0 [facility] Comment on above: Order Comment: Specimen Type: BLOOD SPEC IMENOrdering Facility: [facility] Address: [address] [place] [address] Performed By: #### 5 7021-8 ####[facility] LABIA [id number] [place] [address] [place] MCHC (RBC) [Mass/Vol] 33.5 g/dL Normal 30.5-36.0 [facility] Comment on above: Order Comment: Specimen Type: BLOOD SPEC IMENOrdering Facility: [facility] Address: [address] [place] [address] Performed By: #### 5 7021-8 ####[facility] LABIA [id number] [place] [address] [place] MCV (RBC) [Entitic vol] 87.0 fL Normal 80.0-100.0 [facility] Health Comment on above: Order Comment: Specimen Type: BLOOD SPEC IMENOrdering Facility: [facility] Address: [address] [place] [address] Performed By: #### 5 7021-8 ####[facility] LABIA [id number] [place] [address] [place] Monocytes (Bld) [#/Vol] 0.94 10*3/uL High <0.87 [facility] Comment on above: Order Comment: Specimen Type: BLOOD SPEC IMENOrdering Facility: [facility] Address: [address] [place] [address] Performed By: #### 5 7021-8 ####[facility] LABCLIA [id number] [place] [address] [place] Monocytes/100 WBC (Bld) 12.6 % Normal [facility] Comment on above: Order Comment: Specimen Type: BLOOD SPEC IMENOrdering Facility: [facility] Address: [address] [place] [address] Performed By: #### 5 7021-8 ####[facility] LABCLIA [id number] [place] [address] [place] Neutrophils (Bld) [#/Vol] 5.54 10*3/uL Normal 1.45-7.50 [facility] Comment on above: Order Comment: Specimen Type: BLOOD SPEC IMENOrdering Facility: [facility] Address: [address] [place] [address] Performed By: #### 5 7021-8 ####[facility] LABIA [id number] [place] [address] [place] Neutrophils/100 WBC (Bld) 74.0 % Normal [facility] Comment on above: Order Comment: Specimen Type: BLOOD SPEC IMENOrdering Facility: [facility] Address: [address] [place] [address] Performed By: #### 5 7021-8 ####[facility] LABCLIA [id number] [place] [address] [place] Nucleated RBC (Bld) [#/Vol] 10*3/uL Normal <0.01 [facility] Comment on above: Order Comment: Specimen Type: BLOOD SPEC IMENOrdering Facility: [facility] Address: [address] [place] [address] Performed By: #### 5 7021-8 ####[facility] LABCLIA [id number] [place] [address] [place] Nucleated RBC/100 WBC (Bld) [Ratio] 0.0 /100 WBC Normal [facility] Comment on above: Order Comment: Specimen Type: BLOOD SPEC IMENOrdering Facility: [facility] Address: [address] [place] [address] Performed By: #### 5 7021-8 ####[facility] LABCLIA [id number] [place] [address] [place] Platelet mean volume (Bld) [Entitic vol] 11.1 fL Normal 9.0-12.7 [facility] Comment on above: Order Comment: Specimen Type: BLOOD SPEC IMENOrdering Facility: [facility] Address: [address] [place] [address] Performed By: #### 5 7021-8 ####[facility] LABIA [id number] [place] [address] [place] Platelets (Bld) [#/Vol] 154 10*3/uL Normal 150-400 [facility] Comment on above: Order Comment: Specimen Type: BLOOD SPEC IMENOrdering Facility: [facility] Address: [address] [place] [address] Performed By: #### 5 7021-8 ####[facility] LABIA [id number] [place] [address] [place] RBC (Bld) [#/Vol] 4.39 10*6/uL Normal 3.90-5.20 [facility] Comment on above: Order Comment: Specimen Type: BLOOD SPEC IMENOrdering Facility: [facility] Address: [address] [place] [address] Performed By: #### 5 7021-8 ####[facility] LABCLIA [id number] [place] [address] [place] WBC (Bld) [#/Vol] 7.48 10*3/uL Normal 3.70-11.00 [facility] Comment on above: Order Comment: Specimen Type: BLOOD SPEC IMENOrdering Facility: [facility] Address: [address] [place], [place] [address] Performed By: #### 5 7021-8 ####[facility] LABCLIA [id number] [place] [id number] [place] Basic metabolic 2000 panelon 03-03-2024 Anion gap [Moles/Vol] 12 mmol/L Normal 9-18 [facility] Comment on above: Order Comment: Specimen Type: BLOOD SPEC IMENOrdering Facility: [facility] Address: [address] [place] [address] Performed By: #### 2 4321-2 ####[facility] LABCLIA [id number] [place] [address] [place] Calcium [Mass/Vol] 8.6 mg/dL Normal 8.5-10.2 [facility] Comment on above: Order Comment: Specimen Type: BLOOD SPEC IMENOrdering Facility: [facility] Address: [address] [place] [address] Performed By: #### 2 4321-2 ####[facility] LABCLIA [id number] [place] [address] [place] Chloride [Moles/Vol] 100 mmol/L Normal 97-105 [facility] Comment on above: Order Comment: Specimen Type: BLOOD SPEC IMENOrdering Facility: [facility] Address: [address] [place] [address] Performed By: #### 2 4321-2 ####[facility] LABCLIA [id number] [place] [id number] [place] CO2 [Moles/Vol] 26 mmol/L Normal 22-30 [facility] Comment on above: Order Comment: Specimen Type: BLOOD SPEC IMENOrdering Facility: [facility] Address: [address] [place], [place] [address] Performed By: #### 2 4321-2 ####[facility] LABCLIA [id number] [place] [address] [place] Creatinine [Mass/Vol] 0.89 mg/dL Normal 0.58-0.96 [facility] Comment on above: Order Comment: Specimen Type: BLOOD SPEC IMENOrdering Facility: [facility] Address: [address] [place] [address] Performed By: #### 2 4321-2 ####[facility] LABIA [id number] [address] [place] Creatinine and Glomerular filtration rate.predicted panel (S/P/Bld) 72 mL/min/1.73m??? Normal >=60 [facility] Comment on above: Order Comment: Specimen Type: BLOOD SPEC IMENOrdering Facility: [facility] Address: [address] [place] [address] Result Comment: Lani mated Glomerular Filtration Rate [...] actual GFR. Performed By: #### 2 4321-2 ####[facility] LABCLIA [id number] [place] [address] [place] Glucose [Mass/Vol] 129 mg/dL High 74-99 [facility] Comment on above: Order Comment: Specimen Type: BLOOD SPEC IMENOrdering Facility: [facility] Address: [address] [place] [address] Result Comment: The [place] [employer] (ADA) provides guidance for cutoff [...] Standards of Medical Care in Diabetes 2016, [place] [employer]. Diabetes Care. 2016.39(Suppl 1). Performed By: #### 2 4321-2 ####[facility] LABCLIA [id number] [place] [address] [place] Potassium [Moles/Vol] 4.3 mmol/L Normal 3.7-5.1 [facility] Comment on above: Order Comment: Specimen Type: BLOOD SPEC IMENOrdering Facility: [facility] Address: [address] [place] [address] Performed By: #### 2 4321-2 ####[facility] LABIA [id number] [place] [address] [place] Sodium [Moles/Vol] 138 mmol/L Normal 136-144 [facility] Comment on above: Order Comment: Specimen Type: BLOOD SPEC IMENOrdering Facility: [facility] Address: [address] [place] [address] Performed By: #### 2 4321-2 ####[facility] LABIA [id number] [place] [address] [place] Urea nitrogen [Mass/Vol] 15 mg/dL Normal 7-21 [facility] Comment on above: Order Comment: Specimen Type: BLOOD SPEC IMENOrdering Facility: [facility] Address: [address] [place] [address] Performed By: #### 2 4321-2 ####[facility] LABIA [id number] [place] [id number] [place] CBC W Auto Differential pane l (Bld)on 03-03-2024 Basophils (Bld) [#/Vol] 10*3/uL Normal <0.11 [facility] Comment on above: Order Comment: Specimen Type: BLOOD SPEC IMENOrdering Facility: [facility] Address: [address] [place] [address] Performed By: #### 5 7021-8 ####[facility] LABCLIA [id number] [place] [address] [place] Basophils/100 WBC (Bld) 0.1 % Normal [facility] Comment on above: Order Comment: Specimen Type: BLOOD SPEC IMENOrdering Facility: [facility] Address: [address] [place] [address] Performed By: #### 5 7021-8 ####[facility] LABCLIA [id number] [place] [address] [place] Differential cell count method Nom (Bld) Auto Normal [facility] Comment on above: Order Comment: Specimen Type: BLOOD SPEC IMENOrdering Facility: [facility] Address: [address] [place] [address] Performed By: #### 5 7021-8 ####[facility] LABCLIA [id number] [place] [address] [place] Eosinophils (Bld) [#/Vol] 10*3/uL Normal <0.46 [facility] Comment on above: Order Comment: Specimen Type: BLOOD SPEC IMENOrdering Facility: [facility] Address: [address] [place] [address] Performed By: #### 5 7021-8 ####[facility] LABCLIA [id number] [place] [address] [place] Eosinophils/100 WBC (Bld) 0.0 % Normal [facility] Comment on above: Order Comment: Specimen Type: BLOOD SPEC IMENOrdering Facility: [facility] Address: [address] [place] [address] Performed By: #### 5 7021-8 ####[facility] LABCLIA [id number] [place] [address] [place] Erythrocyte distribution width (RBC) [Ratio] 14.1 % Normal 11.5-15.0 [facility] Comment on above: Order Comment: Specimen Type: BLOOD SPEC IMENOrdering Facility: [facility] Address: [address] [place] [address] Performed By: #### 5 7021-8 ####[facility] LABIA [id number] [place] [address] [place] Hematocrit (Bld) [Volume fraction] 37.2 % Normal 36.0-46.0 [facility] Comment on above: Order Comment: Specimen Type: BLOOD SPEC IMENOrdering Facility: [facility] Address: [address] [place] [address] Performed By: #### 5 7021-8 ####[facility] LABIA [id number] [place] [address] [place] Hemoglobin (Bld) [Mass/Vol] 12.0 g/dL Normal 11.5-15.5 [facility] Comment on above: Order Comment: Specimen Type: BLOOD SPEC IMENOrdering Facility: [facility] Address: [address] [place] [address] Performed By: #### 5 7021-8 ####[facility] LABIA [id number] [place] [address] [place] Immature granulocytes (Bld) [#/Vol] 0.03 10*3/uL Normal <0.10 [facility] Comment on above: Order Comment: Specimen Type: BLOOD SPEC IMENOrdering Facility: [facility] Address: [address] [place] [address] Performed By: #### 5 7021-8 ####[facility] LABIA [id number] [place] [address] [place] Immature granulocytes/10 0 WBC (Bld) 0.3 % Normal [facility] Comment on above: Order Comment: Specimen Type: BLOOD SPEC IMENOrdering Facility: [facility] Address: [address] [place] [address] Performed By: #### 5 7021-8 ####[facility] LABCLIA [id number] [place] [address] [place] Lymphocytes (Bld) [#/Vol] 0.46 10*3/uL Low 1.00-4.00 [facility] Comment on above: Order Comment: Specimen Type: BLOOD SPEC IMENOrdering Facility: [facility] Address: [address] [place] [address] Performed By: #### 5 7021-8 ####[facility] LABCLIA [id number] [place] [address] [place] Lymphocytes/100 WBC (Bld) 5.3 % Normal [facility] Comment on above: Order Comment: Specimen Type: BLOOD SPEC IMENOrdering Facility: [facility] Address: [address] [place] [address] Performed By: #### 5 7021-8 ####[facility] LABCLIA [id number] [place] [address] [place] MCH (RBC) [Entitic mass] 29.6 pg Normal 26.0-34.0 [facility] Comment on above: Order Comment: Specimen Type: BLOOD SPEC IMENOrdering Facility: [facility] Address: [address] [place] [address] Performed By: #### 5 7021-8 ####[facility] LABCLIA [id number] [place] [address] [place] MCHC (RBC) [Mass/Vol] 32.3 g/dL Normal 30.5-36.0 [facility] Comment on above: Order Comment: Specimen Type: BLOOD SPEC IMENOrdering Facility: [facility] Address: [address] [place] [address] Performed By: #### 5 7021-8 ####[facility] LABCLIA [id number] [id number] [address] [place] MCV (RBC) [Entitic vol] 91.9 fL Normal 80.0-100.0 [facility] Comment on above: Order Comment: Specimen Type: BLOOD SPEC IMENOrdering Facility: [facility] Address: [address] [place] [address] Performed By: #### 5 7021-8 ####[facility] LABCLIA [id number] [place] [address] [place] Monocytes (Bld) [#/Vol] 1.03 10*3/uL High <0.87 [facility] Comment on above: Order Comment: Specimen Type: BLOOD SPEC IMENOrdering Facility: [facility] Address: [address] [place] [address] Performed By: #### 5 7021-8 ####[facility] LABCLIA [id number] [place] [address] [place] Monocytes/100 WBC (Bld) 11.9 % Normal [facility] Comment on above: Order Comment: Specimen Type: BLOOD SPEC IMENOrdering Facility: [facility] Address: [address] [place] [address] Performed By: #### 5 7021-8 ####[facility] LABCLIA [id number] [place] [address] [place] Neutrophils (Bld) [#/Vol] 7.10 10*3/uL Normal 1.45-7.50 [facility] Comment on above: Order Comment: Specimen Type: BLOOD SPEC IMENOrdering Facility: [facility] Address: [address] [place] [address] Performed By: #### 5 7021-8 ####[facility] LABCLIA [id number] [place] [address] [place] Neutrophils/100 WBC (Bld) 82.4 % Normal [facility] Comment on above: Order Comment: Specimen Type: BLOOD SPEC IMENOrdering Facility: [facility] Address: [address] [place] [address] Performed By: #### 5 7021-8 ####[facility] LABCLIA [id number] [place] [address] [place] Nucleated RBC (Bld) [#/Vol] 10*3/uL Normal <0.01 [facility] Comment on above: Order Comment: Specimen Type: BLOOD SPEC IMENOrdering Facility: [facility] Address: [address] [place] [address] Performed By: #### 5 7021-8 ####[facility] LABIA [id number] [place] [address] [place] Nucleated RBC/100 WBC (Bld) [Ratio] 0.0 /100 WBC Normal [facility] Comment on above: Order Comment: Specimen Type: BLOOD SPEC IMENOrdering Facility: [facility] Address: [address] [place] [address] Performed By: #### 5 7021-8 ####[facility] LABIA [id number] [place] [address] [place] Platelet mean volume (Bld) [Entitic vol] 11.8 fL Normal 9.0-12.7 [facility] Comment on above: Order Comment: Specimen Type: BLOOD SPEC IMENOrdering Facility: [facility] Address: [address] [place] [address] Performed By: #### 5 7021-8 ####[facility] LABCLIA [id number] [place] [address] [place] Platelets (Bld) [#/Vol] 188 10*3/uL Normal 150-400 [facility] Comment on above: Order Comment: Specimen Type: BLOOD SPEC IMENOrdering Facility: [facility] Address: [address] [place] [address] Performed By: #### 5 7021-8 ####[facility] LABCLIA [id number] [place] [address] [place] RBC (Bld) [#/Vol] 4.05 10*6/uL Normal 3.90-5.20 [facility] Comment on above: Order Comment: Specimen Type: BLOOD SPEC IMENOrdering Facility: [facility] Address: [address] [place] [address] Performed By: #### 5 7021-8 ####[facility] LABCLIA [id number] [place] [address] [place] WBC (Bld) [#/Vol] 8.63 10*3/uL Normal 3.70-11.00 [facility] Comment on above: Order Comment: Specimen Type: BLOOD SPEC IMENOrdering Facility: [facility] Address: [address] [place] [address] Performed By: #### 5 7021-8 ####[facility] LABCLIA [id number] [address] [place] NUTRITIONon 03-03-2024 NUTRITION HNO ID: [id number] Author: SSUAN RUTLEDGE [address] Service: Nutrition Therapy Author Type: [...] Medical condition, Patient/family self-report Estimated kilocalorie needs: 7144-9080 Calorie Calculation Method: 25-30 kcals/kg Estimated protein [...] necessary the HPI obtained by Tavia Montiel APRN.CNP on 02/19/24 and all reflect current status. [...] - Discussed ONS. Pt agreeable to trying [employer] BID w/ breakfast and dinner for additional [...] March 03, 2024 TIME: 2:34 PM Normal [facility] ANES POSTPROC EVALon 024 ANES POSTPROC EVAL HNO ID: [id number] Author: AZALEA SERRA MD Service: ? Author Type: Anesthesiologist Type: Anesthesia Postprocedure Evaluation Filed: 03/02/2024 16:56 Note Text: POST ANESTHESIA EVALUATION NOTE : 1955 Procedure Summary Date: 03/02/24 Room / Location: [address] [facility] Anesthesia Start: 728 Anesthesia Stop: [...] March 02, 2024 TIME: 4:55 PM CSN: [id number] Normal [facility] ANES PRE-OPon 03-02-2024 ANES PRE-OP HNO ID: [id number] Author: AZALEA SERRA MD Service: ? Author [...] and consent discussed: yes. Patient / Responsible Republican agrees to proceed: yes Patient / Surrogate [...] (FLONASE) 50 mcg/actuation nasal spray Use 1 [place] in the nose as needed for cold/allergy [...] March 02, 2024 TIME: 7:21 AM CSN: [id number] [facility] BRIEF OP NOTon 03-02-2024 BRIEF OP NOT HNO ID: [id number] Author: CRUZ CHAPMAN MD Service: Urology Author Type: Physician Type: Brief Op Note Filed: 03/02/2024 14:03 Note Text: BRIEF OPERATIVE / PROCEDURE NOTE LOG ID: [id number] SURGERY/PROCEDURE DATE: 03/02/2024 INCISION/PROCEDURE START TIME: 8:48 AM INCISION CLOSE/PROCEDURE END TIME: 1410 SURGEON(S)/PROCEDURALIST(S) AND FURNACE OPERATOR AND TENDER(S): Surgeon(s) and Role: * Chip Carr MD [...] March 02, 2024 TIME: 2:01 PM Normal [facility] CBC W Auto Differential pane l (Bld)on 03-02-2024 Basophils (Bld) [#/Vol] 10*3/uL Normal <0.11 [facility] Comment on above: Order Comment: Specimen Type: BLOOD SPEC IMENOrdering Facility: [facility] Address: [address] [place] [address] Performed By: #### 5 7021-8 ####[facility] LABCLIA [id number] [place] [address] [place] Basophils/100 WBC (Bld) 0.2 % Normal [facility] Comment on above: Order Comment: Specimen Type: BLOOD SPEC IMENOrdering Facility: [facility] Address: [address] [place] [address] Performed By: #### 5 7021-8 ####[facility] LABCLIA [id number] [place] [address] [place] Differential cell count method Nom (Bld) Auto Normal [facility] Comment on above: Order Comment: Specimen Type: BLOOD SPEC IMENOrdering Facility: [facility] Address: [address] [place] [address] Performed By: #### 5 7021-8 ####[facility] LABCLIA [id number] [place] [address] [place] Eosinophils (Bld) [#/Vol] 10*3/uL Normal <0.46 [facility] Comment on above: Order Comment: Specimen Type: BLOOD SPEC IMENOrdering Facility: [facility] Address: [address] [place] [address] Performed By: #### 5 7021-8 ####[facility] LABCLIA [id number] [place] [address] [place] Eosinophils/100 WBC (Bld) 0.1 % Normal [facility] Comment on above: Order Comment: Specimen Type: BLOOD SPEC IMENOrdering Facility: [facility] Address: [address] [place] [address] Performed By: #### 5 7021-8 ####[facility] LABIA [id number] [place] [address] [place] Erythrocyte distribution width (RBC) [Ratio] 13.9 % Normal 11.5-15.0 [facility] Comment on above: Order Comment: Specimen Type: BLOOD SPEC IMENOrdering Facility: [facility] Address: [address] [place] [address] Performed By: #### 5 7021-8 ####[facility] LABCLIA [id number] [place] [address] [place] Hematocrit (Bld) [Volume fraction] 38.1 % Normal 36.0-46.0 [facility] Comment on above: Order Comment: Specimen Type: BLOOD SPEC IMENOrdering Facility: [facility] Address: [address] [place] [address] Performed By: #### 5 7021-8 ####[facility] LABCLIA [id number] [place] [address] [place] Hemoglobin (Bld) [Mass/Vol] 12.6 g/dL Normal 11.5-15.5 [facility] Comment on above: Order Comment: Specimen Type: BLOOD SPEC IMENOrdering Facility: [facility] Address: [address] [place] [address] Performed By: #### 5 7021-8 ####[facility] LABCLIA [id number] [place] [address] [place] Immature granulocytes (Bld) [#/Vol] 0.08 10*3/uL Normal <0.10 [facility] Comment on above: Order Comment: Specimen Type: BLOOD SPEC IMENOrdering Facility: [facility] Address: [address] [place] [address] Performed By: #### 5 7021-8 ####[facility] LABIA [id number] [place] [address] [place] Immature granulocytes/10 0 WBC (Bld) 0.7 % Normal [facility] Comment on above: Order Comment: Specimen Type: BLOOD SPEC IMENOrdering Facility: [facility] Address: [address] [place] [address] Performed By: #### 5 7021-8 ####[facility] LABIA [id number] [place] [address] [place] Lymphocytes (Bld) [#/Vol] 0.56 10*3/uL Low 1.00-4.00 [facility] Comment on above: Order Comment: Specimen Type: BLOOD SPEC IMENOrdering Facility: [facility] Address: [address] [place] [address] Performed By: #### 5 7021-8 ####[facility] LABCLIA [id number] [place] [address] [place] Lymphocytes/100 WBC (Bld) 4.6 % Normal [facility] Comment on above: Order Comment: Specimen Type: BLOOD SPEC IMENOrdering Facility: [facility] Address: [address] [place] [address] Performed By: #### 5 7021-8 ####[facility] LABIA [id number] [place] [address] [place] MCH (RBC) [Entitic mass] 29.2 pg Normal 26.0-34.0 [facility] Comment on above: Order Comment: Specimen Type: BLOOD SPEC IMENOrdering Facility: [facility] Address: [address] [place] [address] Performed By: #### 5 7021-8 ####[facility] LABIA [id number] [place] [address] [place] MCHC (RBC) [Mass/Vol] 33.1 g/dL Normal 30.5-36.0 [facility] Comment on above: Order Comment: Specimen Type: BLOOD SPEC IMENOrdering Facility: [facility] Address: [address] [place] [address] Performed By: #### 5 7021-8 ####[facility] [id number] [place] [address] [place] MCV (RBC) [Entitic vol] 88.2 fL Normal 80.0-100.0 [facility] Comment on above: Order Comment: Specimen Type: BLOOD SPEC IMENOrdering Facility: [facility] Address: [address] [place] [address] Performed By: #### 5 7021-8 ####[facility] [id number] [place] [address] [place] Monocytes (Bld) [#/Vol] 0.53 10*3/uL Normal <0.87 [facility] Comment on above: Order Comment: Specimen Type: BLOOD SPEC IMENOrdering Facility: [facility] Address: [address] [place] [address] Performed By: #### 5 7021-8 ####[facility] LABIA [id number] [place] [address] [place] Monocytes/100 WBC (Bld) 4.3 % Normal [facility] Comment on above: Order Comment: Specimen Type: BLOOD SPEC IMENOrdering Facility: [facility] Address: [address] [place] [address] Performed By: #### 5 7021-8 ####[facility] LABCLIA [id number] [place] [address] [place] Neutrophils (Bld) [#/Vol] 11.08 10*3/uL High 1.45-7.50 [facility] Comment on above: Order Comment: Specimen Type: BLOOD SPEC IMENOrdering Facility: [facility] Address: [address] [place] [address] Performed By: #### 5 7021-8 ####[facility] LABCLIA [id number] [place] [address] [place] Neutrophils/100 WBC (Bld) 90.1 % Normal [facility] Comment on above: Order Comment: Specimen Type: BLOOD SPEC IMENOrdering Facility: [facility] Address: [address] [place] [address] Performed By: #### 5 7021-8 ####[facility] LABCLIA [id number] [place] [address] [place] Nucleated RBC (Bld) [#/Vol] 10*3/uL Normal <0.01 [facility] Comment on above: Order Comment: Specimen Type: BLOOD SPEC IMENOrdering Facility: [facility] Address: [address] [place] [address] Performed By: #### 5 7021-8 ####[facility] LABCLIA [id number] [place] [address] [place] Nucleated RBC/100 WBC (Bld) [Ratio] 0.0 /100 WBC Normal [facility] Comment on above: Order Comment: Specimen Type: BLOOD SPEC IMENOrdering Facility: [facility] Address: [address] [place] [address] Performed By: #### 5 7021-8 ####[facility] LABIA [id number] [address] [address] [place] Platelet mean volume (Bld) [Entitic vol] 11.7 fL Normal 9.0-12.7 [facility] Comment on above: Order Comment: Specimen Type: BLOOD SPEC IMENOrdering Facility: [facility] Address: [address] [place] [address] Performed By: #### 5 7021-8 ####[facility] LABIA [id number] [address] [address] [place] Platelets (Bld) [#/Vol] 210 10*3/uL Normal 150-400 [facility] Comment on above: Order Comment: Specimen Type: BLOOD SPEC IMENOrdering Facility: [facility] Address: [address] [place] [address] Performed By: #### 5 7021-8 ####[facility] LABIA [id number] [place] [address] [place] RBC (Bld) [#/Vol] 4.32 10*6/uL Normal 3.90-5.20 [facility] Comment on above: Order Comment: Specimen Type: BLOOD SPEC IMENOrdering Facility: [facility] Address: [address] [place] [address] Performed By: #### 5 7021-8 ####[facility] LABIA [id number] [address] [address] [place] WBC (Bld) [#/Vol] 12.28 10*3/uL High 3.70-11.00 [facility] Comment on above: Order Comment: Specimen Type: BLOOD SPEC IMENOrdering Facility: [facility] Address: [address] [place] [address] Performed By: #### 5 7021-8 ####[facility] LABIA [id number] [place] [address] [place] [facility] Comprehensive metabolic 2000 panelon 03-02-2024 Albumin [Mass/Vol] 3.7 g/dL Low 3.9-4.9 [facility] Comment on above: Order Comment: Specimen Type: BLOOD SPEC IMENOrdering Facility: [facility] Address: [address] [place] [address] Performed By: #### 2 4323-8 ####[facility] LABCLIA [id number] [place] [address] [place] ALP [Catalytic activity/Vol] 55 U/L Normal 34-123 [facility] Comment on above: Order Comment: Specimen Type: BLOOD SPEC IMENOrdering Facility: [facility] Address: [address] [place] [address] Performed By: #### 2 4323-8 ####[facility] LABCLIA [id number] [address] [place] ALT [Catalytic activity/Vol] 13 U/L Normal 7-38 [facility] Comment on above: Order Comment: Specimen Type: BLOOD SPEC IMENOrdering Facility: [facility] Address: [address] [place] [address] Performed By: #### 2 4323-8 ####[facility] LABCLIA [id number] [place] [address] [place] Anion gap [Moles/Vol] 10 mmol/L Normal 9-18 [facility] Comment on above: Order Comment: Specimen Type: BLOOD SPEC IMENOrdering Facility: [facility] Address: [address] [place] [address] Performed By: #### 2 4323-8 ####[facility] LABCLIA [id number] [place] [address] [place] AST [Catalytic activity/Vol] 20 U/L Normal 13-35 [facility] Comment on above: Order Comment: Specimen Type: BLOOD SPEC IMENOrdering Facility: [facility] Address: [address] [place] [id number] Performed By: #### 2 4323-8 ####[facility] LABCLIA [id number] [place] [address] [place] Bilirubin [Mass/Vol] 0.4 mg/dL Normal 0.2-1.3 [facility] Comment on above: Order Comment: Specimen Type: BLOOD SPEC IMENOrdering Facility: [facility] Address: [address] [place] [address] Performed By: #### 2 4323-8 ####[facility] LABCLIA [id number] [place] [address] [place] Calcium [Mass/Vol] 8.6 mg/dL Normal 8.5-10.2 [facility] Comment on above: Order Comment: Specimen Type: BLOOD SPEC IMENOrdering Facility: [facility] Address: [address] [place] [address] Performed By: #### 2 4323-8 ####[facility] LABCLIA [id number] [place] [address] [place] Chloride [Moles/Vol] 107 mmol/L High 97-105 [facility] Comment on above: Order Comment: Specimen Type: BLOOD SPEC IMENOrdering Facility: [facility] Address: [address] [place] [address] Performed By: #### 2 4323-8 ####[facility] LABCLIA [id number] [place] [address] [place] CO2 [Moles/Vol] 24 mmol/L Normal 22-30 [facility] Comment on above: Order Comment: Specimen Type: BLOOD SPEC IMENOrdering Facility: [facility] Address: [address] [place] [address] Performed By: #### 2 4323-8 ####[facility] LABCLIA [id number] [place] [address] [place] Creatinine [Mass/Vol] 0.86 mg/dL Normal 0.58-0.96 [facility] Comment on above: Order Comment: Specimen Type: BLOOD SPEC IMENOrdering Facility: [facility] Address: [address] [place] [address] Performed By: #### 2 4323-8 ####[facility] LABCLIA [id number] [place] [address] [place] Creatinine and Glomerular filtration rate.predicted panel (S/P/Bld) 75 mL/min/1.73m??? Normal >=60 [facility] Comment on above: Order Comment: Specimen Type: BLOOD SPEC IMENOrdering Facility: [facility] Address: [address] [place] [address] Result Comment: Lani mated Glomerular Filtration Rate [...] actual GFR. Performed By: #### 2 4323-8 ####[facility] LABCLIA [id number] [place] [address] [place] Glucose [Mass/Vol] 192 mg/dL High 74-99 [facility] Comment on above: Order Comment: Specimen Type: BLOOD SPEC IMENOrdering Facility: [facility] Address: [address] [place] [address] Result Comment: The [place] [employer] (ADA) provides guidance for cutoff [...] Standards of Medical Care in Diabetes 2016, [place] [employer]. Diabetes Care. 2016.39(Suppl 1). Performed By: #### 2 4323-8 ####[facility] LABCLIA [id number] [place] [address] [place] Potassium [Moles/Vol] 4.5 mmol/L Normal 3.7-5.1 [facility] Comment on above: Order Comment: Specimen Type: BLOOD SPEC IMENOrdering Facility: [facility] Address: [address] [place] [address] Performed By: #### 2 4323-8 ####[facility] LABIA [id number] [place] [address] [place] Protein [Mass/Vol] 5.9 g/dL Low 6.3-8.0 [facility] Comment on above: Order Comment: Specimen Type: BLOOD SPEC IMENOrdering Facility: [facility] Address: [address] [place] [address] Performed By: #### 2 4323-8 ####[facility] LABIA [id number] [place] [address] [place] Sodium [Moles/Vol] 141 mmol/L Normal 136-144 [facility] Comment on above: Order Comment: Specimen Type: BLOOD SPEC IMENOrdering Facility: [facility] Address: [address] [place] [address] Performed By: #### 2 4323-8 ####[facility] LABCLIA [id number] [place] [id number] [place] Urea nitrogen [Mass/Vol] 13 mg/dL Normal 7-21 [facility] Comment on above: Order Comment: Specimen Type: BLOOD SPEC IMENOrdering Facility: [facility] Address: [address] [place] [address] Performed By: #### 2 4323-8 ####[facility] LABCLIA [id number] [place] [id number] [place] [facility] OPERATIVE NOon 03-02-2024 OPERATIVE NO HNO ID: [id number] Author: CHIP CARR MD Service: Urology Author Type: Physician Type: Operative Report Filed: 03/10/2024 16:26 Note Text: Attestation signed by Chip Carr MD at 03/10/2024 4:26 PM Agree with the details as outlined be the resident/ fellow Chip Carr MD UROLOGY OPERATIVE REPORT LOG ID: [id number] Surgery/Procedure Date: 03/02/2024 Incision/Procedure Start Time: 8:48 AM Incision Close/Procedure End Time: 1410 Surgeon(s)/Proceduralist(s) and Machine Operator Hop Worker(s): Surgeon(s) and Role: * Chip Carr MD [...] mls SPECIMENS: Left ureter IMPLANTABLE DEVICES: 4.7 brazilian x 14cm JJ left stent DRAINS: 1) LLQ RAMON drain 2) 18 brazilian kirk catheter COMPLICATIONS: None Findings: 1) 1 [...] the e (more content not included)... Normal [facility] OPERATIVE NO HNO ID: [id number] Author: PARAMJIT DANIELLE MD Service: Urology Author Type: Physician Type: Operative Report Filed: 03/04/2024 08:31 Note Text: UROLOGY OPERATIVE REPORT LOG ID: [id number] Surgery/Procedure Date: 03/02/2024 Incision/Procedure Start Time: 8:48 AM Incision Close/Procedure End Time: 1410 Surgeon(s)/Proceduralist(s) and Machine Operator Hop Worker(s): Surgeon(s) and Role: * Chip Carr MD [...] mls SPECIMENS: Left ureter IMPLANTABLE DEVICES: 4.7 brazilian x 14cm JJ left stent DRAINS: 1) 18 brazilian kirk catheter COMPLICATIONS: None Findings: 1) 1 [...] in an air docking fashion. A 12mm patient assistant port was placed under direct vision [...] loop w (more content not included)... Normal [facility] CBC W Auto Differential pane l (Bld)on 02-19-2024 Basophils (Bld) [#/Vol] 0.04 10*3/uL Normal <0.11 [facility] Comment on above: Order Comment: Specimen Type: BLOOD SPEC IMENOrdering Facility: [facility] Address: [address] [place] [address] Performed By: #### 5 7021-8 ####[facility] LABIA [id number] [place] [address] [place] Basophils/100 WBC (Bld) 0.8 % Normal [facility] Comment on above: Order Comment: Specimen Type: BLOOD SPEC IMENOrdering Facility: [facility] Address: [address] [place] [address] Performed By: #### 5 7021-8 ####[facility] LABCLIA [id number] [address] [id number] [address] [place] Differential cell count method Nom (Bld) Auto Normal [facility] Comment on above: Order Comment: Specimen Type: BLOOD SPEC IMENOrdering Facility: [facility] Address: [facility] [place] [address] Performed By: #### 5 7021-8 ####[facility] LABCLIA [id number] [place] [address] [place] Eosinophils (Bld) [#/Vol] 0.10 10*3/uL Normal <0.46 [facility] Comment on above: Order Comment: Specimen Type: BLOOD SPEC IMENOrdering Facility: [facility] Address: [address] [place] [address] Performed By: #### 5 7021-8 ####[facility] LABIA [id number] [place] [address] [place] Eosinophils/100 WBC (Bld) 1.9 % Normal [facility] Comment on above: Order Comment: Specimen Type: BLOOD SPEC IMENOrdering Facility: [facility] Address: [address] [place] [address] Performed By: #### 5 7021-8 ####[facility] LABIA [id number] [place] [address] [place] Erythrocyte distribution width (RBC) [Ratio] 13.6 % Normal 11.5-15.0 [facility] Comment on above: Order Comment: Specimen Type: BLOOD SPEC IMENOrdering Facility: [facility] Address: [address] [place] [address] Performed By: #### 5 7021-8 ####[facility] LABIA [id number] [place] [address] [place] Hematocrit (Bld) [Volume fraction] 42.7 % Normal 36.0-46.0 [facility] Comment on above: Order Comment: Specimen Type: BLOOD SPEC IMENOrdering Facility: [facility] Address: [address] [place] [address] Performed By: #### 5 7021-8 ####[facility] LABCLIA [id number] [place] [address] [place] Hemoglobin (Bld) [Mass/Vol] 13.9 g/dL Normal 11.5-15.5 [facility] Comment on above: Order Comment: Specimen Type: BLOOD SPEC IMENOrdering Facility: [facility] Address: [address] [place] [address] Performed By: #### 5 7021-8 ####[facility] LABCLIA [id number] [place] [address] [place] Immature granulocytes (Bld) [#/Vol] 10*3/uL Normal <0.10 [facility] Comment on above: Order Comment: Specimen Type: BLOOD SPEC IMENOrdering Facility: [facility] Address: [address] [place] [address] Performed By: #### 5 7021-8 ####[facility] LABIA [id number] [place] [address] [place] Immature granulocytes/10 0 WBC (Bld) 0.2 % Normal [facility] Comment on above: Order Comment: Specimen Type: BLOOD SPEC IMENOrdering Facility: [facility] Address: [address] [place] [address] Performed By: #### 5 7021-8 ####[facility] LABIA [id number] [place] [address] [place] Lymphocytes (Bld) [#/Vol] 1.51 10*3/uL Normal 1.00-4.00 [facility] Comment on above: Order Comment: Specimen Type: BLOOD SPEC IMENOrdering Facility: [facility] Address: [address] [place] [address] Performed By: #### 5 7021-8 ####[facility] LABIA [id number] [place] [address] [place] Lymphocytes/100 WBC (Bld) 29.3 % Normal [facility] Comment on above: Order Comment: Specimen Type: BLOOD SPEC IMENOrdering Facility: [facility] Address: [address] [place] [address] Performed By: #### 5 7021-8 ####[facility] LABIA [id number] [place] [address] [place] MCH (RBC) [Entitic mass] 29.3 pg Normal 26.0-34.0 [facility] Comment on above: Order Comment: Specimen Type: BLOOD SPEC IMENOrdering Facility: [facility] Address: [address] [place] [address] Performed By: #### 5 7021-8 ####[facility] LABIA [id number] [address] [place] MCHC (RBC) [Mass/Vol] 32.6 g/dL Normal 30.5-36.0 [facility] Comment on above: Order Comment: Specimen Type: BLOOD SPEC IMENOrdering Facility: [facility] Address: [address] [place] [address] Performed By: #### 5 7021-8 ####[facility] LABIA [id number] [place] [address] [place] MCV (RBC) [Entitic vol] 89.9 fL Normal 80.0-100.0 [facility] Comment on above: Order Comment: Specimen Type: BLOOD SPEC IMENOrdering Facility: [facility] Address: [address] [place] [address] Performed By: #### 5 7021-8 ####[facility] LABIA [id number] [address] [place] Monocytes (Bld) [#/Vol] 0.77 10*3/uL Normal <0.87 [facility] Comment on above: Order Comment: Specimen Type: BLOOD SPEC IMENOrdering Facility: [facility] Address: [address] [place] [address] Performed By: #### 5 7021-8 ####[facility] LABCLIA [id number] [place] [address] [place] Monocytes/100 WBC (Bld) 14.9 % Normal [facility] Comment on above: Order Comment: Specimen Type: BLOOD SPEC IMENOrdering Facility: [facility] Address: [address] [place] [address] Performed By: #### 5 7021-8 ####[facility] LABCLIA [id number] [place] [address] [place] Neutrophils (Bld) [#/Vol] 2.73 10*3/uL Normal 1.45-7.50 [facility] Comment on above: Order Comment: Specimen Type: BLOOD SPEC IMENOrdering Facility: [facility] Address: [address] [place] [address] Performed By: #### 5 7021-8 ####[facility] LABCLIA [id number] [place] [address] [place] Neutrophils/100 WBC (Bld) 52.9 % Normal [facility] Comment on above: Order Comment: Specimen Type: BLOOD SPEC IMENOrdering Facility: [facility] Address: [address] [place] [address] Performed By: #### 5 7021-8 ####[facility] LABCLIA [id number] [place] [address] [place] Nucleated RBC (Bld) [#/Vol] 10*3/uL Normal <0.01 [facility] Comment on above: Order Comment: Specimen Type: BLOOD SPEC IMENOrdering Facility: [facility] Address: [address] [place] [address] Performed By: #### 5 7021-8 ####[facility] LABCLIA [id number] [place] [address] [place] Nucleated RBC/100 WBC (Bld) [Ratio] 0.0 /100 WBC Normal [facility] Comment on above: Order Comment: Specimen Type: BLOOD SPEC IMENOrdering Facility: [facility] Address: [address] [place] [address] Performed By: #### 5 7021-8 ####[facility] LABCLIA [id number] [place] [address] [place] Platelet mean volume (Bld) [Entitic vol] 12.2 fL Normal 9.0-12.7 [facility] Comment on above: Order Comment: Specimen Type: BLOOD SPEC IMENOrdering Facility: [facility] Address: [address] [place] [address] Performed By: #### 5 7021-8 ####[facility] LABCLIA [id number] [place] [address] [place] Platelets (Bld) [#/Vol] 214 10*3/uL Normal 150-400 [facility] Comment on above: Order Comment: Specimen Type: BLOOD SPEC IMENOrdering Facility: [facility] Address: [address] [place] [address] Performed By: #### 5 7021-8 ####[facility] LABIA [id number] [place] [address] [place] RBC (Bld) [#/Vol] 4.75 10*6/uL Normal 3.90-5.20 [facility] Comment on above: Order Comment: Specimen Type: BLOOD SPEC IMENOrdering Facility: [facility] Address: [address] [place] [address] Performed By: #### 5 7021-8 ####[facility] LABCLIA [id number] [place] [address] [place] WBC (Bld) [#/Vol] 5.16 10*3/uL Normal 3.70-11.00 [facility] Comment on above: Order Comment: Specimen Type: BLOOD SPEC IMENOrdering Facility: [facility] Address: [address] [place] [address] Performed By: #### 5 7021-8 ####[facility] LABCLIA [id number] [place] [id number] OF [facility] CNOVon 02-19-2024 CNOV Office Visit (UROLMN ) ZAYNAB ZAIDI ([id number]) 1955 F Date Time Provider Department 02/19/24 3:45 PM CHIP CARR UROSharee During your visit today, we recorded the [...] performed due to technical problems in the label remover. Venous duplex US - UE 07/18/23: - [...] (FLONASE) 50 mcg/actuation nasal spray Use 1 [place] in the nose as needed for cold/allergy [...] (FLONASE) 50 mcg/actuation nasal spray Use 1 [place] in the nose as needed for cold/allergy [...] 200 mg (more content not included)... Normal [facility] CONFIRM BLOOD TYPEon 024 ABO O Normal [facility] Comment on above: Order Comment: Specimen Type: BLOOD SPEC IMENOrdering Facility: [facility] Address: [address] [place] [address] Performed By: #### C ONABO ####[facility] BANKCLIA [id number] [place] [address] [place] Rh Nom (Bld) Positive Normal [facility] Comment on above: Order Comment: Specimen Type: BLOOD SPEC IMENOrdering Facility: [facility] Address: [address] [place] [address] Performed By: #### C ONABO ####[facility] BLOOD BANKCLIA [id number] [place] [address] [place] Comprehensive metabolic 2000 panelon 02-19-2024 Albumin [Mass/Vol] 4.3 g/dL Normal 3.9-4.9 [facility] Comment on above: Order Comment: Specimen Type: BLOOD SPEC IMENOrdering Facility: [facility] Address: [address] [place] [address] Performed By: #### 2 4323-8 ####[facility] LABCLIA [id number] [place] [address] [place] ALP [Catalytic activity/Vol] 71 U/L Normal 34-123 [facility] Comment on above: Order Comment: Specimen Type: BLOOD SPEC IMENOrdering Facility: [facility] Address: [address] [place] [address] Performed By: #### 2 4323-8 ####[facility] LABCLIA [id number] [place] [address] [place] ALT [Catalytic activity/Vol] 12 U/L Normal 7-38 [facility] Comment on above: Order Comment: Specimen Type: BLOOD SPEC IMENOrdering Facility: [facility] Address: [address] [place] [address] Performed By: #### 2 4323-8 ####[facility] LABCLIA [id number] [place] [address] [place] Anion gap [Moles/Vol] 12 mmol/L Normal 9-18 [facility] Comment on above: Order Comment: Specimen Type: BLOOD SPEC IMENOrdering Facility: [facility] Address: [address] [place] [address] Performed By: #### 2 4323-8 ####[facility] LABCLIA [id number] [place] [address] [place] AST [Catalytic activity/Vol] 20 U/L Normal 13-35 [facility] Comment on above: Order Comment: Specimen Type: BLOOD SPEC IMENOrdering Facility: [facility] Address: [address] [place] [address] Performed By: #### 2 4323-8 ####[facility] LABCLIA [id number] [place] [address] [place] Bilirubin [Mass/Vol] 0.7 mg/dL Normal 0.2-1.3 [facility] Comment on above: Order Comment: Specimen Type: BLOOD SPEC IMENOrdering Facility: [facility] Address: [address] [place] [address] Performed By: #### 2 4323-8 ####[facility] LABCLIA [id number] [place] [address] [place] Calcium [Mass/Vol] 10.1 mg/dL Normal 8.5-10.2 [facility] Comment on above: Order Comment: Specimen Type: BLOOD SPEC IMENOrdering Facility: [facility] Address: [address] [place] [address] Performed By: #### 2 4323-8 ####[facility] LABCLIA [id number] [place] [address] [place] Chloride [Moles/Vol] 102 mmol/L Normal 97-105 [facility] Comment on above: Order Comment: Specimen Type: BLOOD SPEC IMENOrdering Facility: [facility] Address: [address] [place] [address] Performed By: #### 2 4323-8 ####[facility] LABCLIA [id number] [place] [address] [place] CO2 [Moles/Vol] 28 mmol/L Normal 22-30 [facility] Comment on above: Order Comment: Specimen Type: BLOOD SPEC IMENOrdering Facility: [facility] Address: [address] [place] [address] Performed By: #### 2 4323-8 ####[facility] LABCLIA [id number] [place] [id number] [place] Creatinine [Mass/Vol] 0.81 mg/dL Normal 0.58-0.96 [facility] Comment on above: Order Comment: Specimen Type: BLOOD SPEC IMENOrdering Facility: [facility] Address: [address] [place] [address] Performed By: #### 2 4323-8 ####[facility] LABCLIA [id number] [place] [address] [place] Creatinine and Glomerular filtration rate.predicted panel (S/P/Bld) 80 mL/min/1.73m??? Normal >=60 [facility] Comment on above: Order Comment: Specimen Type: BLOOD SPEC IMENOrdering Facility: [facility] Address: [address] [place] [address] Result Comment: Lani mated Glomerular Filtration Rate [...] actual GFR. Performed By: #### 2 4323-8 ####[facility] LABIA [id number] [place] [address] [place] Glucose [Mass/Vol] 73 mg/dL Low 74-99 [facility] Comment on above: Order Comment: Specimen Type: BLOOD SPEC IMENOrdering Facility: [facility] Address: [address] [place] [address] Result Comment: The [place] [employer] (ADA) provides guidance for cutoff [...] Standards of Medical Care in Diabetes 2016, [place] [employer]. Diabetes Care. 2016.39(Suppl 1). Performed By: #### 2 4323-8 ####[facility] LABCLIA [id number] [place] [address] [place] Potassium [Moles/Vol] 4.5 mmol/L Normal 3.7-5.1 [facility] Comment on above: Order Comment: Specimen Type: BLOOD SPEC IMENOrdering Facility: [facility] Address: [address] [place] [address] Performed By: #### 2 4323-8 ####[facility] LABIA [id number] [place] [address] [place] Protein [Mass/Vol] 7.0 g/dL Normal 6.3-8.0 [facility] Comment on above: Order Comment: Specimen Type: BLOOD SPEC IMENOrdering Facility: [facility] Address: [address] [place] [address] Performed By: #### 2 4323-8 ####[facility] LABIA [id number] [place] [address] [place] Sodium [Moles/Vol] 142 mmol/L Normal 136-144 [facility] Comment on above: Order Comment: Specimen Type: BLOOD SPEC IMENOrdering Facility: [facility] Address: [address] [place] [address] Performed By: #### 2 4323-8 ####[facility] LABCLIA [id number] [place] [address] [place] Urea nitrogen [Mass/Vol] 22 mg/dL High 7-21 [facility] Comment on above: Order Comment: Specimen Type: BLOOD SPEC IMENOrdering Facility: [facility] Address: [address] [place] [address] Performed By: #### 2 4323-8 ####[facility] LABIA [id number] [place] [id number] [place] ECG COMPLETEon 02-19-2024 ECG COMPLETE Ventricular Rate : 5 4 BPM Atrial Rate : 54 BPM P-R Interval : 130 ms QRS Duration : 90 ms Q-T Interval : 462 ms QTC Calculation(Bazett) : 438 ms Calculated P [place] : 21 degrees Calculated R [place] : 68 degrees Calculated T [place] : 69 degrees SINUS BRADYCARDIA OTHERWISE NORMAL ECG Confirmed by FEROZ DELANEY MD ([id number]) on 02/22/2024 4:29:03 PM NAME : ZAYNAB ZAIDI PID : [id number] : 1955 Gender : Female Race : ORD : [id number] Procedure Date : Feb 19 2024 13:54:22 Edit Date : Feb 22 2024 16:29:06 Diagnosis: SINUS BRADYCARDIA OTHERWISE NORMAL ECG Confirmed by FEROZ DELANEY MD ([id number]) on 02/22/2024 4:29:03 PM Test Reason : Location : 119 : [facility] A17 Overread By : FEROZ DELANEY MD Edited By : FEROZ DELANEY MD Referred By : , Acquired by : TYLER TAMAYO [facility] HISTORY PHYSICALon HISTORY PHYSICAL HNO ID: [id number] Author: TAVIA MONTIEL APRN.EXPELLER WORKER Service: ? 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 Negative for: [facility] tumor, delirium, dementia, headaches, multiple sclerosis, seizures, TIA and strokes. Respiratory: Allergies - singulair +lung nodule - routine surveillance Negative for: COPD, current cough, dyspnea, home oxygen, pneumonia within 6 weeks, tobacco use, URI < 2 weeks and obstruct (more content not included)... Normal [facility] PT panel Coag (PPP)on 2023 INR Coag (PPP) [Relative time] 1.0 {INR} Normal 0.9-1.3 [facility] Comment on above: Order Comment: Specimen Type: BLOOD SPEC IMENOrdering Facility: [facility] Address: [address] [place] [address] Result Comment: Miriam min K Antagonist (VKA) Therapeutic Range: INR 2 to 3 (Target INR of 2.5) Note: For patients treated with VKA drugs, such as warfarin, the [place] [employer] 2012 Guideline recommends [...] to 3.5 (target INR of 3). Junior GH, et al. Chest 2012, 141:7S-47S Lisseth RA, et al. [facility] 2017, 70: 252-289 Performed By: #### 1 4979-9, 71860-3 ####[facility] LABCLIA [id number] [place] [address] [place] PT Coag (PPP) [Time] 10.4 s Normal 9.7-13.0 [facility] Comment on above: Order Comment: Specimen Type: BLOOD SPEC IMENOrdering Facility: [facility] Address: [address] [place] [address] Performed By: #### 1 4979-9, 92556-3 ####[facility] LABCLIA [id number] [address] OF [place] TYPE AND SCREEN,30 DAYon ABO O Normal [facility] Comment on above: Order Comment: Specimen Type: BLOOD SPEC IMENOrdering Facility: [facility] Address: [address] [place] [address] Performed By: #### T [id number] ####[facility] BLOOD BANKCLIA [id number] [place] [address] [place] HISTORICAL AB SCR STATUS Negative Normal [facility] Comment on above: Order Comment: Specimen Type: BLOOD SPEC IMENOrdering Facility: [facility] Address: [address] [place] [address] Performed By: #### T [id number] ####[facility] BLOOD BANKCLIA [id number] [place] [address] [place] Rh Nom (Bld) Positive Normal [facility] Comment on above: Order Comment: Specimen Type: BLOOD SPEC IMENOrdering Facility: [facility] Address: [address] [place] [address] Performed By: #### T [id number] ####[facility] [id number] [place] [address] [place] URINALYSIS, REFLEX MICROSCOP ICon 02-19-2024 Bilirubin Ql (U) Negative Negative [facility] Clarity (Unsp spec) Clear Clear [facility] Color (U) Colorless Yellow [facility] Glucose Test strip (U) [Mass/Vol] Negative Trace, Negative [facility] Hemoglobin Ql (U) Negative Negative, Trace [facility] Interpretation and review of laboratory results Normal [facility] Ketones Ql (U) Negative Negative, Trace [facility] Leukocyte esterase Test strip Ql (U) Negative Negative, 25 Jefry/uL [facility] Nitrite Ql (U) Negative Negative [facility] pH (U) 5.0 [pH] 5.0 - 8.0 [facility] Protein (U) [Mass/Vol] Negative Trace, Negative [facility] Specific gravity (U) [Rel density] 1.005 1.005 - 1.030 [facility] Urobilinogen Ql (U) Normal Normal [facility] Bilirubin Ql (U) Negative Normal Negative [facility] Comment on above: Order Comment: Specimen Type: URINE SPEC IMENOrdering Facility: [facility] Address: [address] [place] [address] Performed By: #### L [id number] ####[facility] LABCLIA [id number] [place] [address] [place] Clarity (Unsp spec) Clear Normal Clear [facility] Comment on above: Order Comment: Specimen Type: URINE SPEC IMENOrdering Facility: [facility] Address: [address] [place] [address] Performed By: #### L [id number] ####[facility] LABIA [id number] [place] [id number] [place] Color (U) Colorless Normal Yellow [facility] Comment on above: Order Comment: Specimen Type: URINE SPEC IMENOrdering Facility: [facility] Address: [address] [place] [address] Performed By: #### L [id number] ####[facility] LABCLIA [id number] [place] [address] [place] Glucose Test strip (U) [Mass/Vol] Negative Normal Trace, Negative [facility] Comment on above: Order Comment: Specimen Type: URINE SPEC IMENOrdering Facility: [facility] Address: [address] [place] [address] Performed By: #### L [id number] ####[facility] LABCLIA [id number] [place] [address] [place] Hemoglobin Ql (U) Negative Normal Negative, Trace [facility] Comment on above: Order Comment: Specimen Type: URINE SPEC IMENOrdering Facility: [facility] Address: [address] [place] [address] Performed By: #### L [id number] ####[facility] LABCLIA [id number] [place] [address] [place] Ketones Ql (U) Negative Normal Negative, Trace [facility] Comment on above: Order Comment: Specimen Type: URINE SPEC IMENOrdering Facility: [facility] Address: [address] [place] [address] Performed By: #### L [id number] ####[facility] LABCLIA [id number] [place] [address] [place] Leukocyte esterase Test strip Ql (U) Negative Normal Negative, 25 Jefry/uL [facility] Comment on above: Order Comment: Specimen Type: URINE SPEC IMENOrdering Facility: [facility] Address: [address] [place] [address] Performed By: #### L [id number] ####[facility] LABCLIA [id number] [place] [address] [place] Nitrite Ql (U) Negative Normal Negative [facility] Comment on above: Order Comment: Specimen Type: URINE SPEC IMENOrdering Facility: [facility] Address: [address] [place] [address] Performed By: #### L [id number] ####[facility] LABIA [id number] [place] [address] [place] pH (U) 5.0 [pH] Normal 5.0-8.0 [facility] Comment on above: Order Comment: Specimen Type: URINE SPEC IMENOrdering Facility: [facility] Address: [address] [place] [address] Performed By: #### L [id number] ####[facility] [id number] [place] [address] [place] Protein (U) [Mass/Vol] Negative Normal Trace, Negative [facility] Comment on above: Order Comment: Specimen Type: URINE SPEC IMENOrdering Facility: [facility] Address: [address] [place] [address] Performed By: #### L [id number] ####[facility] LABIA [id number] [place] [address] [place] Specific gravity (U) [Rel density] 1.005 Normal 1.005-1.03 0 [facility] Comment on above: Order Comment: Specimen Type: URINE SPEC IMENOrdering Facility: [facility] Address: [address] [place] [address] Performed By: #### L [id number] ####[facility] LABIA [id number] [place] [address] [place] Urobilinogen Ql (U) Normal Normal Normal [facility] Comment on above: Order Comment: Specimen Type: URINE SPEC IMENOrdering Facility: [facility] Address: [address] [place] [address] Performed By: #### L [id number] ####[facility] LABCLIA [id number] [address] [address] [place] aPTT PPPon 02-19-2024 aPTT Coag (PPP) [Time] 26.2 s Normal 23.0-32.4 [facility] Comment on above: Order Comment: Specimen Type: BLOOD SPEC IMENOrdering Facility: [facility] Address: [address] [place] [id number] Performed By: #### 1 4979-9, 68891-3 ####[facility] LABCLIA [id number] [place] [id number] [place] CT CHEST WO CONTon CT CHEST WO CONT CT CHEST WO CONT CT CHEST WO CONTRAST CLINICAL HISTORY: Pulmonary nodule, follow-up COMPARISON: 06/24/2023 PROCEDURE: Multidetector axial CT chest performed. Sagittal and coronal 2-D reconstructed images were also obtained. Automated dose reduction techniques utilized. Computer-aided detection of pulmonary nodules was performed utilizing DescribeMe.via software. All CT scans at this facility [...] Olivo MD on 01/21/2024 12:59 PM Normal [facility] 01-13-2024 CNPN Telephone (ProfistaSMN) ZAYNAB ZAIDI ([id number]) 1955 F Date Time Provider Department 01/13/24 RINA FOX During your visit today, we recorded the following information about you: Manuela Muñoz 01/13/2024 10:29 AM Signed [facility] email message to cancel surgery being done [...] (FLONASE) 50 mcg/actuation nasal spray Use 1 [place] in the nose as needed for cold/allergy [...] Encounter Status:Closed by MANUELA MUÑOZ on 01/13/24 [facility] CNPYen 01-08-2024 CNPN Telephone (VASSMN) ZAYNAB ZAIDI ([id number]) 1955 F Date Time Provider Department 01/08/24 [...] soon that needs to happen? Estephania Mojica Rigger Apprentice Rina Fox MD 01/08/2024 1:45 PM Signed [...] (FLONASE) 50 mcg/actuation nasal spray Use 1 [place] in the nose as needed for cold/allergy [...] Encounter Status:Closed by ESTEPHANIA FELTON on 01/08/24 [facility] Heidi 01-01-2024 [facility] Telephone (PADMA) ZAYNAB ZAIDI ([id number]) 1955 F Date Time Provider Department 01/01/24 RINA FOX During your visit today, we recorded the following information about you: Estephania Felton 01/01/2024 9:27 AM Signed Mrs. Zaidi called to let Dr. Fox know that Urology is able to do the proposed procedure robotically and that she is scheduled to have it done on March 02. Estephania Mojica Rigger Apprentice Allergies As of Date: 01/01/2024 Noted Allergy [...] (FLONASE) 50 mcg/actuation nasal spray Use 1 [place] in the nose as needed for cold/allergy [...] Encounter Status:Closed by ESTEPHANIA FELTON on 01/01/24 [facility] CNOVon 12-25-2023 CNOV Office Visit (UROLMN ) ZAYNAB ZAIDI ([id number]) 1955 F Date Time Provider Department 12/25/23 [...] performed due to technical problems in the label remover. Venous duplex US - UE 07/18/23: - [...] (FLONASE) 50 mcg/actuation nasal spray Use 1 [place] in the nose as needed for cold/allergy [...] - atorvastat (more content not included)... Normal [facility] URINALYSIS, REFLEX MICROSCOP ICon 12-25-2023 Bilirubin Ql (U) Negative Negative [facility] Clarity (Unsp spec) Clear Clear [facility] Color (U) Colorless Yellow [facility] Glucose Test strip (U) [Mass/Vol] Negative Trace, Negative [facility] Hemoglobin Ql (U) Negative Negative, Trace [facility] Ketones Ql (U) Negative Negative, Trace [facility] Leukocyte esterase Test strip Ql (U) Negative Negative, 25 Jefry/uL [facility] Nitrite Ql (U) Negative Negative [facility] pH (U) 5.0 [pH] 5.0 - 8.0 [facility] Protein (U) [Mass/Vol] Negative Trace, Negative [facility] Specific gravity (U) [Rel density] 1.004 Low 1.005 - 1.030 [facility] Urobilinogen Ql (U) Normal Normal [facility] Bilirubin Ql (U) Negative Normal Negative [facility] Comment on above: Order Comment: Specimen Type: URINE SPEC IMENOrdering Facility: [facility] Address: [address] [place] [address] Performed By: #### L [id number] ####[facility] LABIA [id number] [place] [address] [place] Clarity (Unsp spec) Clear Normal Clear [facility] Comment on above: Order Comment: Specimen Type: URINE SPEC IMENOrdering Facility: [facility] Address: [address] [place] [address] Performed By: #### L [id number] ####[facility] LABCLIA [id number] [place] [address] [place] Color (U) Colorless Normal Yellow [facility] Comment on above: Order Comment: Specimen Type: URINE SPEC IMENOrdering Facility: [facility] Address: [address] [place] [address] Performed By: #### L [id number] ####[facility] LABCLIA [id number] [place] [address] [place] Glucose Test strip (U) [Mass/Vol] Negative Normal Trace, Negative [facility] Comment on above: Order Comment: Specimen Type: URINE SPEC IMENOrdering Facility: [facility] Address: [address] [place] [address] Performed By: #### L [id number] ####[facility] LABCLIA [id number] [place] [address] [place] Hemoglobin Ql (U) Negative Normal Negative, Trace [facility] Comment on above: Order Comment: Specimen Type: URINE SPEC IMENOrdering Facility: [facility] Address: [address] [place] [address] Performed By: #### L [id number] ####[facility] LABCLIA [id number] [place] [address] [place] Ketones Ql (U) Negative Normal Negative, Trace [facility] Comment on above: Order Comment: Specimen Type: URINE SPEC IMENOrdering Facility: [facility] Address: [address] [place] [address] Performed By: #### L [id number] ####[facility] LABCLIA [id number] [place] [address] [place] Leukocyte esterase Test strip Ql (U) Negative Normal Negative, 25 Jefry/uL [facility] Comment on above: Order Comment: Specimen Type: URINE SPEC IMENOrdering Facility: [facility] Address: [address] [place] [address] Performed By: #### L [id number] ####[facility] LABCLIA [id number] [place] [address] [place] Nitrite Ql (U) Negative Normal Negative [facility] Comment on above: Order Comment: Specimen Type: URINE SPEC IMENOrdering Facility: [facility] Address: [address] [place] [address] Performed By: #### L [id number] ####[facility] LABIA [id number] [place] [address] [place] pH (U) 5.0 [pH] Normal 5.0-8.0 [facility] Comment on above: Order Comment: Specimen Type: URINE SPEC IMENOrdering Facility: [facility] Address: [address] [place] [address] Performed By: #### L [id number] ####[facility] LABIA [id number] [place] [address] [place] Protein (U) [Mass/Vol] Negative Normal Trace, Negative [facility] Comment on above: Order Comment: Specimen Type: URINE SPEC IMENOrdering Facility: [facility] Address: [address] [place] [address] Performed By: #### L [id number] ####[facility] [id number] [place] [address] [place] Specific gravity (U) [Rel density] 1.004 Low 1.005-1.03 0 [facility] Comment on above: Order Comment: Specimen Type: URINE SPEC IMENOrdering Facility: [facility] Address: [address] [place] [address] Performed By: #### L [id number] ####[facility] [id number] [place] [address] [place] Urobilinogen Ql (U) Normal Normal Normal [facility] Comment on above: Order Comment: Specimen Type: URINE SPEC IMENOrdering Facility: [facility] Address: [address] [place] [address] Performed By: #### L [id number] ####[facility] LABIA [id number] [place] [address] [place] CNOVon 12-22-2023 CNOV Office Visit (UROLMN ) ZAYNAB ZAIDI ([id number]) 1955 F Date Time Provider Department 12/22/23 2:30 PM RADU DELEON During your visit today, we recorded the following information about you: Birgit Cook OCCA 12/22/2023 1:51 PM Signed Patient PVR recorded: 0 mL LUCIAN Rodriguez Ruben, MD 12/23/2023 7:58 AM Signed PATIENT: Zaynab Zaidi [id number] NEW PATIENT REFERRING MD: Rina Fox 12/20/2023 [...] pelvis region (feels like sitting on cucumber) [place] this started one year ago. Thought it [...] elevating her legs. with PMH significant for [place] Tra[place] Syndrome, jugular vein stenosis (asymptomatic), HLD, nutcracker [...] fluticasone (FLONASE) 50 mcg/actuation nasal spray 1 [place], NASAL, NEEDED, Take in allergy season - [...] lower ex (more content not included)... Normal [facility] URINALYSIS, REFLEX MICROSCOP ICon 12-22-2023 Bilirubin Ql (U) Negative Negative [facility] Clarity (Unsp spec) Clear Clear [facility] Color (U) Colorless Yellow [facility] Glucose Test strip (U) [Mass/Vol] Negative Trace, Negative [facility] Hemoglobin Ql (U) Negative Negative, Trace [facility] Ketones Ql (U) Negative Negative, Trace [facility] Leukocyte esterase Test strip Ql (U) Negative Negative, 25 Jefry/uL [facility] Nitrite Ql (U) Negative Negative [facility] pH (U) 5.0 [pH] 5.0 - 8.0 [facility] Protein (U) [Mass/Vol] Negative Trace, Negative [facility] Specific gravity (U) [Rel density] 1.006 1.005 - 1.030 [facility] Urobilinogen Ql (U) Normal Normal [facility] Bilirubin Ql (U) Negative Normal Negative [facility] Comment on above: Order Comment: Specimen Type: URINE SPEC IMENOrdering Facility: [facility] Address: [address] [place] [address] Performed By: #### L [id number] ####[facility] LABCLIA [id number] [place] [address] [place] Clarity (Unsp spec) Clear Normal Clear [facility] Comment on above: Order Comment: Specimen Type: URINE SPEC IMENOrdering Facility: [facility] Address: [address] [place] [address] Performed By: #### L [id number] ####[facility] LABCLIA [id number] [place] [address] [place] Color (U) Colorless Normal Yellow [facility] Comment on above: Order Comment: Specimen Type: URINE SPEC IMENOrdering Facility: [facility] Address: [address] [place] [address] Performed By: #### L [id number] ####[facility] LABCLIA [id number] [place] [address] [place] Glucose Test strip (U) [Mass/Vol] Negative Normal Trace, Negative [facility] Comment on above: Order Comment: Specimen Type: URINE SPEC IMENOrdering Facility: [facility] Address: [address] [place] [address] Performed By: #### L [id number] ####[facility] LABCLIA [id number] [place] [address] [place] Hemoglobin Ql (U) Negative Normal Negative, Trace [facility] Comment on above: Order Comment: Specimen Type: URINE SPEC IMENOrdering Facility: [facility] Address: [address] [place] [address] Performed By: #### L [id number] ####[facility] LABCLIA [id number] [place] [address] [place] Ketones Ql (U) Negative Normal Negative, Trace [facility] Comment on above: Order Comment: Specimen Type: URINE SPEC IMENOrdering Facility: [facility] Address: [address] [place], [place] [address] Performed By: #### L [id number] ####[facility] LABCLIA [id number] [place] [address] [place] Leukocyte esterase Test strip Ql (U) Negative Normal Negative, 25 Jefry/uL [facility] Comment on above: Order Comment: Specimen Type: URINE SPEC IMENOrdering Facility: [facility] Address: [address] [place] [address] Performed By: #### L [id number] ####[facility] LABIA [id number] [place] [address] [place] Nitrite Ql (U) Negative Normal Negative [facility] Comment on above: Order Comment: Specimen Type: URINE SPEC IMENOrdering Facility: [facility] Address: [address] [place] [address] Performed By: #### L [id number] ####[facility] LABIA [id number] [place] [address] [place] pH (U) 5.0 [pH] Normal 5.0-8.0 [facility] Comment on above: Order Comment: Specimen Type: URINE SPEC IMENOrdering Facility: [facility] Address: [address] [place] [address] Performed By: #### L [id number] ####[facility] LABIA [id number] [place] [address] [place] Protein (U) [Mass/Vol] Negative Normal Trace, Negative [facility] Comment on above: Order Comment: Specimen Type: URINE SPEC IMENOrdering Facility: [facility] Address: [address] [place] [address] Performed By: #### L [id number] ####[facility] LABIA [id number] [place] [address] [place] Specific gravity (U) [Rel density] 1.006 Normal 1.005-1.03 0 [facility] Comment on above: Order Comment: Specimen Type: URINE SPEC IMENOrdering Facility: [facility] Address: [address] [place] [address] Performed By: #### L [id number] ####[facility] LABIA [id number] [address] [id number] [address] [place] Urobilinogen Ql (U) Normal Normal Normal [facility] Comment on above: Order Comment: Specimen Type: URINE SPEC IMENOrdering Facility: [facility] Address: [address] [place] [address] Performed By: #### L [id number] ####[facility] LABCLIA [id number] [place] [id number] OF [facility] CNOVon 12-18-2023 CNOV Office Visit (VASSMN ) ZAYNAB ZAIDI ([id number]) 1955 F Date Time Provider Department 12/18/23 12:00 PM RINA FOX During your visit today, we recorded the following information about you: Temperature Pulse Respiration Blood pressure 98.3 degrees 64/minute 14/minute 131/87 Weight Height 58.4 kg 1.689 m Rina Fox MD 12/18/2023 3:50 PM Signed [facility] [place] DEPARTMENT OF VASCULAR SURGERY OUTPATIENT VISIT DATE [...] elevating her legs. 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 Venous duplex US - UE 07/18/23: - [...] (FLONASE) 50 mcg/actuation nasal spray Use 1 [place] in the nose as needed for cold/allergy [...] (more content not included)... Normal [facility]VAS[facility] ZAYNAB ZAIDI ([id number]) 1955 F Date Time Provider Department 12/11/23 [...] she can be scheduled appropriately. Estephania Mojica Rigger Apprentice Lulu Hernandez RN 12/11/2023 12:39 PM Signed [...] Date Reviewed: 11/11/2023 Reviewed by: Bev Mahmood APRN.EXPELLER WORKER - Fully Assessed Reason for Visit: Patient Question [8857] Prescriptions as of 12/12/2023 - calcium carbonate/vitamin D3 (CALTRATE 600 + D ORAL) Take 600 mg by mouth once daily. - atorvastatin (LIPITOR) 20 mg tablet Take 20 mg by mouth every morning. - fluticasone (FLONASE) 50 mcg/actuation nasal spray Use 1 [place] in the nose once daily. - gabapentin [...] Encounter Status:Closed by ESTELA CHANG on 12/12/23 [facility] Heidi [facility]20[facility] ZAYNAB ZAIDI ([id number]) 1955 F Date Time Provider Department 12/08/23 [...] again according to Dr. Buchanan' recommendations. Genaro Horacio Called and informed patient that Dr. Camp [...] Date Reviewed: 11/11/2023 Reviewed by: Bev Mahmood APRN.EXPELLER WORKER - Fully Assessed Reason for Visit: Phone call to patient [Other] Prescriptions as of 12/08/2023 - calcium carbonate/vitamin D3 (CALTRATE 600 + D ORAL) Take 600 mg by mouth once daily. - atorvastatin (LIPITOR) 20 mg tablet Take 20 mg by mouth every morning. - fluticasone (FLONASE) 50 mcg/actuation nasal spray Use 1 [place] in the nose once daily. - gabapentin [...] Status:Closed by GENARO ANDREW on 12/08/23 Normal [facility] CNPN Telephone (PODCCP) ZAYNAB ZAIDI ([id number]) 1955 F Date Time Provider Department 12/08/23 VASCULAR SURGERY, PHYSICIAN PODCCP During your visit today, we recorded the following information about you: Keturah Gallardo 12/08/2023 2:29 PM Signed Reason for call: Ms Zaidi called and she would like to schedule an appointment with Vascular Surgery. Home and cell number:[phone] Home. [phone] Diagnosis:pelvic congestion syndrome Keturah Jay. Estela Chang 12/10/2023 12:24 PM Signed Conferensum message sent with phone number for Vascular Interventional Radiology for this condition. Allergies As of Date: 12/08/2023 Noted Allergy Reaction CLINDAMYCIN 06/30/2018 2 - Rash 12 - Shortness of Breath CODEINE 06/30/2018 8 - GI Upset Date Reviewed: 11/11/2023 Reviewed by: Bev Mahmood APRN.EXPELLER WORKER - Fully Assessed Reason for Visit: Appointment [186] Prescriptions as of 12/10/2023 - calcium carbonate/vitamin D3 (CALTRATE 600 + D ORAL) Take 600 mg by mouth once daily. - atorvastatin (LIPITOR) 20 mg tablet Take 20 mg by mouth every morning. - fluticasone (FLONASE) 50 mcg/actuation nasal spray Use 1 [place] in the nose once daily. - gabapentin [...] Status:Closed by KETURAH GALLARDO on 12/08/23 Normal [facility] ECG 12 leadon 11-13-2023 TRACEMASTERVUE [facility] CBC without diffon Erythrocyte distribution width (RBC) [Ratio] 14.5 % 11.5 - 15.0 % [facility] Hematocrit (Bld) [Volume fraction] 38.5 % 35 - 47 % [facility] Hemoglobin (Bld) [Mass/Vol] 12.9 g/dL 11.7 - 15.5 g/dL [facility] MCH (RBC) [Entitic mass] 29.2 pg 27 - 34 pg [facility] MCHC (RBC) [Mass/Vol] 33.6 g/dL 32 - 36 g/dL [facility] MCV (RBC) [Entitic vol] 87 fL 80 - 100 fL [facility] Platelet mean volume (Bld) [Entitic vol] 10.5 fL 7 - 12 fL [facility] Platelets (Bld) [#/Vol] 205 10*3/uL [facility] RBC (Bld) [#/Vol] 4.43 10*6/uL [facility] WBC corrected for nucl RBC Auto (Bld) [#/Vol] 4.8 [facility] COMPLETE BLOOD COUNTon 11-12 Erythrocyte distribution width (RBC) [Ratio] 14.5 % Normal 11.5-15.0 [facility] Comment on above: Performed By: #### CBC, MASTER GLAZIER #### [facility] ([id number]) [address], [address] [place] [address] Hematocrit (Bld) [Volume fraction] 38.5 % Normal 35-47 [facility] Comment on above: Performed By: #### CBC, MASTER GLAZIER #### [facility] ([id number]) [address], [address] [place] [address] Hemoglobin (Bld) [Mass/Vol] 12.9 g/dL Normal 11.7-15.5 [facility] Comment on above: Performed By: #### CBC, MASTER GLAZIER #### [facility] ([id number]) [address], [address] [place] [address] MCH (RBC) [Entitic mass] 29.2 pg Normal 27-34 [facility] Comment on above: Performed By: #### CBC, MASTER GLAZIER #### [facility] ([id number]) [address], [address] [place] [address] MCHC (RBC) [Mass/Vol] 33.6 g/dL Normal 32-36 [facility] Comment on above: Performed By: #### CBC, MASTER GLAZIER #### [facility] ([id number]) [address] [place] [address] MCV (RBC) [Entitic vol] 87 fL Normal 80-100 [facility] Comment on above: Performed By: #### CBC, MASTER GLAZIER #### [facility] ([id number]) [address] [place] [address] Platelet mean volume (Bld) [Entitic vol] 10.5 fL Normal 7-12 [facility] Comment on above: Performed By: #### CBC, MASTER GLAZIER #### [facility] ([id number]) [address] [address] [place] [address] Platelets (Bld) [#/Vol] 205 10*3/uL Normal 150-450 [facility] Comment on above: Performed By: #### CBC, MASTER GLAZIER #### [facility] ([id number]) [address], [address] [place] [address] RBC COUNT 4.43 X10E12/L Normal 3.80-5.20 [facility] Comment on above: Performed By: #### CBC, MASTER GLAZIER #### [facility] ([id number]) [address] [address] [place] [address] WBC (Bld) [#/Vol] 4.8 10*3/uL Normal 4.0-11.0 [facility] Comment on above: Performed By: #### CBC, MASTER GLAZIER #### [facility] ([id number]) [address] [place] [address] CREATININEon 11-12-2023 Creatinine [Mass/Vol] 0.90 mg/dL Normal 0.40-1.00 [facility] Comment on above: Result Comment: METHOD TRACEABLE TO IDMS STANDARD Performed By: #### C BC, MASTER GLAZIER #### [facility] ([id number]) [address] [place] [address] GFR/1.73 sq M.predicted among non-blacks MDRD (S/P/Bld) [Vol rate/Area] 71 mL/min/{1.73_m2} Normal >59 [facility] Comment on above: Result Comment: Reported eGFR is based on the CKD-EPI 2020 equation that does not use a race coefficient. Performed By: #### C BC, MASTER GLAZIER #### [facility] ([id number]) [address] [place] [address] Creatinine includes GFR, ser umon 11-12-2023 Creatinine [Mass/Vol] 0.90 mg/dL 0.40 - 1.00 mg/dL [facility] Comment on above: METHOD TRACEABLE TO IDMS STANDARD eGFR (CKD-EPI)non-ra ce dependent 71 - PINF [facility] Comment on above: Reported eGFR is based on the CKD-EPI 2020 equation that does not use a race coefficient. [facility] HISTORY PHYSICALon HISTORY PHYSICAL HNO ID: [id number] Author: BEV MAHMOOD APRN.EXPELLER WORKER Service: ? 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 -Venous incompetency duplex US- LE 04/25/23: No [...] Do you have pain that moves from [id number]? No Do have sudden episodes of pelvic [...] veins) Mot (more content not included)... Normal [facility] CNOVon 11-05-2023 CNOV Office Visit (PERVMN ) ZAYNAB ZAIDI ([id number]) 1955 F Date Time Provider Department 11/05/23 12:45 PM PAGE BUCHANAN During your visit today, we recorded the following information about you: Pulse Blood pressure Weight Height 67/minute 153/80 58.5 kg 1.727 m Page Buchanan MD 11/05/2023 2:48 PM Signed [facility] [place] [facility] Department of Cardiovascular Medicine SECTION [...] file. History of present illness: 68yof from [place], [place], who came to [place] today (2-hr drive) for this patient -initiated appointment. She initially tried to schedule appt with Vascular Surgery, and she was also referred to IR (Dr. Camp), but she was ultimately referred to Vascular Medicine. She is, however, scheduled with IR on 11/11/23 (presumably for an appt with Dr. Camp, but there are no physician names clearly specified in the appt). PMHx [place] Syndrome, jugular vein stenosis (asymptomatic), HLD, pelvic [...] was unremarkable. She has undergone evaluation in [facility] records available under care everywhere and [...] (FLONASE) 50 mcg/actuation nasal spray Use 1 [place] in the nose once daily. gabapentin (NEURONTIN) [...] mother; varicose (more content not included)... Normal [facility] CBC AUTO DIFFon 02-18-2023 BASO # 0.1 103/ul Normal 0.0-0.1 [facility] Comment on above: Performed By: #### CBC #### [facility] [address] [place] [address] Dr. Camilo Reese Basophils/100 WBC (Bld) 1.4 % Normal 0.2-2.0 [facility] Comment on above: Performed By: #### CBC #### [facility] [address] [place] [address] Dr. Camilo Reese EO # 0.1 103/ul Normal 0.0-0.7 [facility] Comment on above: Performed By: #### CBC #### [facility] [address] [place] [address] Dr. Camilo Reese Eosinophils/100 WBC (Bld) 2.4 % Normal 0.9-7.0 [facility] Comment on above: Performed By: #### CBC #### [facility] [address] [place] [address] Dr. Camilo Reese Erythrocyte distribution width (RBC) [Ratio] 13.9 % Normal 11.0-15.0 [facility] Comment on above: Performed By: #### CBC #### [facility] [address] [place] [address] Dr. Camilo Reese Hematocrit (Bld) [Volume fraction] 41.3 % Normal 36.0-48.0 [facility] Comment on above: Performed By: #### CBC #### [facility] [address] [place] [address] Dr. Camilo Reese Hemoglobin (Bld) [Mass/Vol] 13.5 g/dL Normal 12.0-16.0 [facility] Comment on above: Performed By: #### CBC #### [facility] [address] [place] [address] Dr. Camilo Reese IG # 0.00 10e3/ul Normal 0.00-0.03 [facility] Comment on above: Performed By: #### CBC #### [facility] [address] [place] [address] Dr. Camilo Reese IG % 0.0 % Normal 0.0-0.5 [facility] Comment on above: Performed By: #### CBC #### [facility] [address] [place] [address] Dr. Camilo Reese LYMPH # 1.3 103/ul Normal 1.2-3.8 [facility] Comment on above: Performed By: #### CBC #### [facility] [address] [place] [address] Dr. Camilo Reese Lymphocytes/100 WBC (Bld) 31.0 % Normal 20.5-60.0 [facility] Comment on above: Performed By: #### CBC #### [facility] [address] [place] [address] Dr. Camilo Reese MANUAL DIFF REQ NO Normal [facility] Comment on above: Performed By: #### CBC #### [facility] [address] [place] [address] Dr. Camilo Reese MCH (RBC) [Entitic mass] 29.2 pg Normal 26.7-34.0 [facility] Comment on above: Performed By: #### CBC #### [facility] [address] [place] [address] Dr. Camilo Reese MCHC (RBC) [Mass/Vol] 32.7 g/dL Normal 29.9-35.2 [facility] Comment on above: Performed By: #### CBC #### [facility] [address] [place] [address] Dr. Camilo Reese MCV (RBC) [Entitic vol] 89.4 fL Normal 81.0-99.0 [facility] Comment on above: Performed By: #### CBC #### [facility] [address] [place] [address] Dr. Camilo Reese MONO # 0.6 103/ul Normal 0.3-0.8 [facility] Comment on above: Performed By: #### CBC #### [facility] [address] [place] [address] Dr. Camilo Reese Monocytes/100 WBC (Bld) 13.8 % Critically high 1.7-12.0 [facility] Comment on above: Performed By: #### CBC #### [facility] [address] [place] [address] Dr. Camilo Reese NEUT # 2.2 103/ul Normal 1.4-6.5 [facility] Comment on above: Performed By: #### CBC #### [facility] [address] [place] [address] Dr. Camilo Reese Neutrophils/100 WBC (Bld) 51.4 % Normal 43.0-75.0 [facility] Comment on above: Performed By: #### CBC #### [facility] [address] [place] [address] Dr. Camilo Reese Platelet mean volume (Bld) [Entitic vol] 11.5 fL Normal 9.5-13.5 [facility] Comment on above: Performed By: #### CBC #### [facility] [address] [place] [address] Dr. Camilo Reese PLT 254 103/ul Normal 150-450 [facility] Comment on above: Performed By: #### CBC #### [facility] [address] [place] [address] Dr. Camilo Reese RBC 4.62 106/ul Normal 4.20-5.40 [facility] Comment on above: Performed By: #### CBC #### [facility] [address] [place] [address] Dr. Camilo Reese WBC 4.2 103/ul Normal 4.0-11.0 [facility] Comment on above: Performed By: #### CBC #### [facility] [address] [place] [address] ABD/PELVIS WO CONon [...] ELIE NEVES Date: 2023-02-18 11:36 Normal [facility] ER URINE PROFILEon 3 Bilirubin Ql (U) SMALL Abnormal NEGATIVE [facility] Comment on above: Performed By: #### GALI ERUR #### [facility] [address] [place] [address] Dr. Camilo Reese Clarity (U) CLEAR Normal CLEAR [facility] Comment on above: Performed By: #### GALI ERUR #### [facility] [address] [address] [address] Camilo Reese Color (U) DK. YELLOW Normal YELLOW [facility] Comment on above: Performed By: #### GALI ERUR #### [facility] [address] [place] [address] Dr. Camilo Reese ERUAHD A micrscopic examina tion will be performed if indicated. Normal [facility] Comment on above: Performed By: #### UMICRO, ERUR #### [facility] [address] [place] [address] Dr. Camilo Reese Glucose Ql (U) Negative Normal NEGATIVE [facility] Comment on above: Performed By: #### GALI, ERUR #### [facility] [address] [place] [address] Dr. Camilo Reese Hemoglobin Ql (U) TRACE-INTACT Abnormal NEGATIVE [facility] Comment on above: Performed By: #### GALI, ERUR #### [facility] [address] [place] [address] Dr. Camilo Reese Ketones Ql (U) TRACE Abnormal NEGATIVE [facility] Comment on above: Performed By: #### GALI, ERUR #### [facility] [address] [place] [address] Dr. Camilo Reese LEUKOCYTES Negative Normal NEGATIVE [facility] Comment on above: Performed By: #### GALI, ERUR #### [facility] [address] [place] [address] Dr. Camilo Reese Nitrite Ql (U) Negative Normal NEGATIVE [facility] Comment on above: Performed By: #### GALI ERUR #### [facility] [address] [place] [address] Dr. Camilo Reese pH (U) 5.0 [pH] Normal 5-9 [facility] Comment on above: Performed By: #### GALI ERUR #### [facility] [address] [place] [address] Dr. Camilo Reese SPEC GRAVITY >=1.030 Abnormal 1.005-<=1. 025 [facility] Comment on above: Performed By: #### GALI ERUR #### [facility] [address] [place] [address] Dr. Camilo Reese UA PROTEIN Negative Normal NEGATIVE/ TRACE [facility] Comment on above: Performed By: #### GALI, ERUR #### [facility] [address] [place] [address] Dr. Camilo Reese UR MICRO IND INDICATED Normal [facility] Comment on above: Performed By: #### ROBERT TALBERTR #### [facility] [address] [place] [address] Dr. Camilo Reese Urobilinogen Qn (U) 0.2 {Alberta'U}/dL Normal 0.2 - 1.0 [facility] Comment on above: Performed By: #### GALI ERUR #### [facility] [address] [place] [address] Dr. Camilo Reese PROF 14(COMP METB)on 023 Albumin [Mass/Vol] 4.0 g/dL Normal 3.4-5.0 [facility] Comment on above: Performed By: #### CMP #### [facility] [address] [place] [address] Dr. Camilo Reese Albumin/Globuli n [Mass ratio] 1.2 {ratio} Normal [facility] Comment on above: Performed By: #### CMP #### [facility] [address] [place] [address] Dr. Camilo Reese ALP [Catalytic activity/Vol] 69 U/L Normal 46-116 [facility] Comment on above: Performed By: #### CMP #### [facility] [address] [place] [address] Dr. Camilo Reese ALT [Catalytic activity/Vol] 18 U/L Normal 14-59 [facility] Comment on above: Performed By: #### CMP #### [facility] [address] [place] [address] Dr. Camilo Reese Anion gap [Moles/Vol] 11.7 mmol/L Normal [facility] Comment on above: Performed By: #### CMP #### [facility] [address] [place] [address] Dr. Camilo Reese AST [Catalytic activity/Vol] 21 U/L Normal 15-37 [facility] Comment on above: Performed By: #### CMP #### [facility] [address] [place] [address] Dr. Camilo Reese Bilirubin [Mass/Vol] 1.0 mg/dL Normal 0.2-1.0 [facility] Comment on above: Performed By: #### CMP #### [facility] [address] [address] [address] Camilo Reese Calcium [Mass/Vol] 9.1 mg/dL Normal 8.5-10.1 [facility] Comment on above: Performed By: #### CMP #### [facility] [address] [address] [address] Camilo Reese Chloride [Moles/Vol] 103 mmol/L Normal 98-107 [facility] Comment on above: Performed By: #### CMP #### [facility] [address] [address] [address] Camilo Reese CO2 [Moles/Vol] 28.7 mmol/L Normal 21.0-32.0 [facility] Comment on above: Performed By: #### CMP #### [facility] [address] [place] [address] Dr. Camilo Reese Creatinine [Mass/Vol] 0.95 mg/dL Normal 0.55-1.02 [facility] Comment on above: Performed By: #### CMP #### [facility] [address] [place] [address] Dr. Camilo Reese EGFR-AF MARSHALLESE >60 Normal >=60 [facility] Comment on above: Performed By: #### CMP #### [facility] [address] [place] [address] Dr. Camilo Reese EGFR-NON AF MARSHALLESE 59 mL/min/1.73m2 Critically low >=60 [facility] Comment on above: Performed By: #### CMP #### [facility] [address] [place] [address] Dr. Camilo Reese Globulin (S) [Mass/Vol] 3.4 g/dL Normal [facility] Comment on above: Performed By: #### CMP #### [facility] [address] [place] [address] Dr. Camilo Reese Glucose [Mass/Vol] 101 mg/dL Normal 74-106 [facility] Comment on above: Performed By: #### CMP #### [facility] [address] [place] [address] Dr. Camilo Reese Potassium [Moles/Vol] 3.4 mmol/L Critically low 3.5-5.1 [facility] Comment on above: Performed By: #### CMP #### [facility] [address] [place] [address] Dr. Camilo Reese Protein [Mass/Vol] 7.4 g/dL Normal 6.4-8.2 [facility] Comment on above: Performed By: #### CMP #### [facility] [address] [place] [address] Dr. Camilo Reese Sodium [Moles/Vol] 140 mmol/L Normal 136-145 [facility] Comment on above: Performed By: #### CMP #### [facility] [address] [place] [address] Dr. Camilo Reese Urea nitrogen [Mass/Vol] 17.0 mg/dL Normal 7.0-18.0 [facility] Comment on above: Performed By: #### CMP #### [facility] [address] [place] [address] Dr. Camilo Reese Urea nitrogen/Creati nine [Mass ratio] 17.9 mg/mg Normal [facility] Comment on above: Performed By: #### CMP #### [facility] [address] [place] [address] Dr. Camilo Reese URINE MICROSCOPIC ONLYon BACTERIA TRACE Abnormal NONE SEEN [facility] Comment on above: Performed By: #### GALI ERUR #### [facility] [address] [place] [address] Dr. Camilo Reese Bacteria identified Cx Nom (U) NOT INDICATED Normal [facility] Comment on above: Performed By: #### GALI ERUR #### [facility] [address] [place] [address] Dr. Camilo Reese CAST NONE SEEN Normal NONE SEEN [facility] Comment on above: Performed By: #### GALI, ERUR #### [facility] [address] [place] [address] Dr. Camilo Reese Crystals LM Nom (Urine sed) NONE SEEN Normal NONE SEEN [facility] Comment on above: Performed By: #### CHERISERO, ERUR #### [facility] [address] [address] [address] Camilo Reese Epithelial cells LM Ql (Urine sed) RARE Normal NONE SEEN /RARE [facility] Comment on above: Performed By: #### CHERIESRO, ERUR #### [facility] [address] [address] [address] Camilo Reese MUCOUS TRACE Abnormal NONE SEEN [facility] Comment on above: Performed By: #### CHERISERO, ERUR #### [facility] [address] [address] [address] Camilo Reese RBC 0-2 Normal 0-2 [facility] Comment on above: Performed By: #### CHERISERO, ERUR #### [facility] [address] [address] [address] Camilo Reese WBC NONE SEEN Normal NONE SEEN [facility] Comment on above: Performed By: #### GALI, ERUR #### [facility] [address] [address] [address] Camilo Reese US EXT NON VASC [...] DEREK MCCRAY Date: 2023-02-18 14:07 Normal [facility] Urinalysis - AUTOMATEDon Appearance (U) clear [employer] Other Bilirubin Ql (U) Negative [employer] Other Color (U) light yellow [employer] Other Glucose Ql (U) Negative [employer] Other Hemoglobin Ql (U) trace intact [employer] Other Ketones Ql (U) Negative [employer] Other Leukocyte esterase Test strip Ql (U) Negative [employer] Other Nitrite Ql (U) Negative [employer] Other pH (U) 6.0 [pH] [employer] Other Protein Ql (U) Negative [employer] Other Specific gravity (U) [Rel density] <1.005 [employer] Other Urobilinogen (U) [Mass/Vol] 0.2 mg/dL [facility] Other Urinalysis - AUTOMATED [employer] Other CBC AUTO DIFFon 11-01-2022 BASO # 0.1 103/ul Normal 0.0-0.1 [facility] Comment on above: Performed By: #### DATCBC #### [facility] [address] [place] [address] Dr. Camilo Reese Basophils/100 WBC (Bld) 1.3 % Normal 0.2-2.0 [facility] Comment on above: Performed By: #### DATCBC #### [facility] [address] [address] [address] Camilo Reese EO # 0.2 103/ul Normal 0.0-0.7 [facility] Comment on above: Performed By: #### DATCBC #### [facility] [address] [address] [address] Camilo Reese Eosinophils/100 WBC (Bld) 5.2 % Normal 0.9-7.0 [facility] Comment on above: Performed By: #### DATCBC #### [facility] [address] [place] [address] Dr. Camilo Reese Erythrocyte distribution width (RBC) [Ratio] 14.6 % Normal 11.0-15.0 [facility] Comment on above: Performed By: #### DATCBC #### [facility] [address] [address] [address] Camilo Reese Hematocrit (Bld) [Volume fraction] 42.9 % Normal 36.0-48.0 [facility] Comment on above: Performed By: #### DATCBC #### [facility] [address] [address] [address] Camilo Reese Hemoglobin (Bld) [Mass/Vol] 13.9 g/dL Normal 12.0-16.0 [facility] Comment on above: Performed By: #### DATCBC #### [facility] [address] [address] [address] Camilo Reese IG # 0.01 10e3/ul Normal 0.00-0.03 [facility] Comment on above: Performed By: #### DATCBC #### [facility] [address] [place] [address] Dr. Camilo Reese IG % 0.3 % Normal 0.0-0.5 [facility] Comment on above: Performed By: #### DATCBC #### [facility] [address] [address] [address] Camilo Reese LYMPH # 1.3 103/ul Normal 1.2-3.8 [facility] Comment on above: Performed By: #### DATCBC #### [facility] [address] [address] [address] Camilo Reese Lymphocytes/100 WBC (Bld) 33.6 % Normal 20.5-60.0 [facility] Comment on above: Performed By: #### DATCBC #### [facility] [address] [address] [address] Camilo Reese MCH (RBC) [Entitic mass] 28.7 pg Normal 26.7-34.0 [facility] Comment on above: Performed By: #### DATCBC #### [facility] [address] [place] [address] Dr. Camilo Reese MCHC (RBC) [Mass/Vol] 32.4 g/dL Normal 29.9-35.2 [facility] Comment on above: Performed By: #### DATCBC #### [facility] [address] [place] [address] Dr. Camilo Reese MCV (RBC) [Entitic vol] 88.5 fL Normal 81.0-99.0 [facility] Comment on above: Performed By: #### DATCBC #### [facility] [address] [place] [address] Dr. Camilo Reese MONO # 0.6 103/ul Normal 0.3-0.8 [facility] Comment on above: Performed By: #### DATCBC #### [facility] [address] [place] [address] Dr. Camilo Reese Monocytes/100 WBC (Bld) 15.0 % Critically high 1.7-12.0 [facility] Comment on above: Performed By: #### DATCBC #### [facility] [address] [place] [address] Dr. Camilo Reese NEUT # 1.7 103/ul Normal 1.4-6.5 [facility] Comment on above: Performed By: #### DATCBC #### [facility] [address] [place] [address] Dr. Camilo Reese Neutrophils/100 WBC (Bld) 44.6 % Normal 43.0-75.0 [facility] Comment on above: Performed By: #### DATCBC #### [facility] [address] [place] [address] Dr. Camilo Reese Platelet mean volume (Bld) [Entitic vol] 11.5 fL Normal 9.5-13.5 [facility] Comment on above: Performed By: #### DATCBC #### [facility] [address] [place] [address] Dr. Camilo Reese PLT 240 103/ul Normal 150-450 [facility] Comment on above: Performed By: #### DATCBC #### [facility] [address] [place] [address] Dr. Camilo Reese RBC 4.85 106/ul Normal 4.20-5.40 [facility] Comment on above: Performed By: #### DATCBC #### [facility] [address] [address] [address] Camilo Reese WBC 3.8 103/ul Critically low 4.0-11.0 [facility] Comment on above: Performed By: #### DATCBC #### [facility] [address] [address] [address] Camilo Reese DAMARIS- BMP WITH LIPIDon 2022 Anion gap [Moles/Vol] 10.7 mmol/L Normal [facility] Comment on above: Performed By: #### DATBMP #### [facility] [address] [address] [address] Camilo Reese Calcium [Mass/Vol] 9.1 mg/dL Normal 8.5-10.1 [facility] Comment on above: Performed By: #### DATBMP #### [facility] [address] [address] [address] Camilo Reese Chloride [Moles/Vol] 103 mmol/L Normal 98-107 [facility] Comment on above: Performed By: #### DATBMP #### [facility] [address] [address] [address] Camilo Reese Cholesterol [Mass/Vol] 216 mg/dL Critically high <=200 [facility] Comment on above: Performed By: #### DATBMP #### [facility] [address] [address] [address] Camilo Reese Cholesterol in HDL [Mass/Vol] 111 mg/dL Critically high 40-60 [facility] Comment on above: Performed By: #### DATBMP #### [facility] [address] [address] [address] Camilo Reese Cholesterol in LDL [Mass/Vol] 91.0 mg/dL Normal [facility] Comment on above: Performed By: #### DATBMP #### [facility] [address] [place] [address] Dr. Camilo Reese CO2 [Moles/Vol] 31.4 mmol/L Normal 21.0-32.0 [facility] Comment on above: Performed By: #### DATBMP #### [facility] [address] [address] [address] Camilo Reese Creatinine [Mass/Vol] 0.72 mg/dL Normal 0.55-1.02 [facility] Comment on above: Performed By: #### DATBMP #### [facility] [address] [address] [address] Camilo Reese EGFR-AF MARSHALLESE >60 Normal >=60 [facility] Comment on above: Performed By: #### DATBMP #### [facility] [address] [address] [address] Camilo Reese EGFR-NON AF MARSHALLESE >60 Normal >=60 [facility] Comment on above: Performed By: #### DATBMP #### [facility] [address] [place] [address] Dr. Camilo Reese Glucose [Mass/Vol] 89 mg/dL Normal 74-106 [facility] Comment on above: Performed By: #### DATBMP #### [facility] [address] [place] [address] Dr. Camilo Reese HDL NORMAL > or = 60 mg/dl - LO W CARDIOVASCULAR RISK <40 mg/dl - HIGH CARDIOVASCULAR RISK Normal [facility] Comment on above: Performed By: #### DATBMP #### [facility] [address] [place] [address] Dr. Camilo Reese LDL CALC NORMAL SEE BELOW Normal [facility] Comment on above: Result Comment: <100 mg/dl OPTIMAL 100 - 129 mg/dl NEAR OR ABOVE OPTIMAL 130 - 159 mg/dl BORDERLINE HIGH 160 - 189 mg/dl HIGH >190 mg/dl VERY HIGH Performed By: #### D ATBMP #### [facility] [address] [place] [address] Dr. Camilo Reese Potassium [Moles/Vol] 4.1 mmol/L Normal 3.5-5.1 [facility] Comment on above: Performed By: #### DATBMP #### [facility] [address] [place] [address] Dr. Camilo Reese Sodium [Moles/Vol] 141 mmol/L Normal 136-145 [facility] Comment on above: Performed By: #### DATBMP #### [facility] [address] [address] [address] Camilo Reese Triglyceride [Mass/Vol] 70 mg/dL Normal <=150 [facility] Comment on above: Performed By: #### DATBMP #### [facility] [address] [address] [address] Camilo Reese Urea nitrogen [Mass/Vol] 17.0 mg/dL Normal 7.0-18.0 [facility] Comment on above: Performed By: #### DATBMP #### [facility] [address] [place] [address] Dr. Camilo Reese Urea nitrogen/Creati nine [Mass ratio] 23.6 mg/mg Normal [facility] Comment on above: Performed By: #### DATBMP #### [facility] [address] [place] [address] Dr. Camilo Reese VLDL CALC 14.0 mg/dL Normal [facility] Comment on above: Performed By: #### DATBMP #### [facility] [address] [place] [address] Dr. Camilo Reese MG MAMM SCREEN 3D CINTHYA CADon 08-13-2022 MG MAMM SCREEN 3D CINTHYA CAD Patient: ZAYNAB ZAIDI Exam Date: 08/13/2022 : 1955 Gender:F Ordering : DR AMMON LUCAS M.D. Admission #: [id number] Family : Order #: [id number] CLICK HERE TO VIEW EXAM RADIOLOGY REPORT PROCEDURE: MAMMOGRAM SCREENING 3D BILATERAL CAD COMPARISON: MG MAMM SCREEN CINTHYA W CAD, 08/10/2018. INDICATIONS: Screening mammography Calculator Name NCI Breast Cancer Risk Assessment Tool 5 Year Breast Cancer Risk 1.40% Lifetime Breast Cancer Risk 5.80% Personal Breast Cancer No Personal Ovarian Cancer No Treatments None Family Cancers None LOCATION: [facility] BREAST COMPOSITION: Scattered areas fibroglandular density. FINDINGS: [...] MD on 08/13/2022 at 15:43 Normal [facility] SARS-CoV-2 (COVID-19) RNA NA A+probe Ql (Resp)on 07-28-2022 SARS-CoV-2 (COVID-19) RNA CHLOE+probe Ql (Unsp spec) Negative Elimi Other CBC Without Differentialon 0 02-23-2022 Erythrocyte distribution width (RBC) [Ratio] 14.6 % Normal 11.9-15.3 [facility] Comment on above: Performed By: #### OUTREACH CMP, OUTREAC H LIPID, CBCNOOUTREACH #### [facility] [address] [place] [address] Hematocrit (Bld) [Volume fraction] 43.4 % Normal 34.0-46.4 [facility] Comment on above: Performed By: #### OUTREACH CMP, OUTREAC H LIPID, CBCNOOUTREACH #### [address] Hemoglobin (Bld) [Mass/Vol] 14.3 g/dL Normal 11.8-15.4 [facility] Comment on above: Performed By: #### OUTREACH CMP, OUTREAC H LIPID, CBCNOOUTREACH #### [address] MCH (RBC) [Entitic mass] 29.4 pg Normal 24.7-34.3 [facility] Comment on above: Performed By: #### OUTREACH CMP, OUTREAC H LIPID, CBCNOOUTREACH #### [address] MCV (RBC) [Entitic vol] 89.2 fL Normal 80-100 [facility] Comment on above: Performed By: #### OUTREACH CMP, OUTREAC H LIPID, CBCNOOUTREACH #### [facility] [address] [place] [address] Mean Corpuscular HGB Conc 33.0 g/dL Normal 32.0-35.0 [facility] Comment on above: Performed By: #### OUTREACH CMP, OUTREAC H LIPID, CBCNOOUTREACH #### [address] Platelet mean volume (Bld) [Entitic vol] 10.2 fL Normal 6.3-10.7 [facility] Comment on above: Result Comment: PERFORMED BY: [place] [address] PATHOLOGIST ANTISQUEAK FILLER BRAD GARCÍA M.D. Performed By: #### O SARAH CMP, OUTREACH LIPID, CBCNOOUTREACH #### [address] Platelets (Bld) [#/Vol] 220 10*3/uL Normal 150-450 [facility] Comment on above: Performed By: #### OUTREACH CMP, OUTREAC H LIPID, CBCNOOUTREACH #### [place] [address] [place] RBC (Bld) [#/Vol] 4.86 10*6/uL Normal 3.60-5.00 [facility] Comment on above: Performed By: #### OUTREACH CMP, OUTREAC H LIPID, CBCNOOUTREACH #### [address] WBC (Bld) [#/Vol] 3.6 10*3/uL Low 3.8-11.6 [facility] Comment on above: Performed By: #### OUTREACH CMP, OUTREAC H LIPID, CBCNOOUTREACH #### [facility] [address] [place] [address] CMP Outreachon 02-23-2022 Albumin [Mass/Vol] 4.0 g/dL Normal 3.2-5.5 [facility] Comment on above: Performed By: #### OUTREACH CMP, OUTREAC H LIPID, CBCNOOUTREACH #### [address] [id number] [place] ALP [Catalytic activity/Vol] 59 U/L Normal 32-92 [facility] Comment on above: Performed By: #### OUTREACH CMP, OUTREAC H LIPID, CBCNOOUTREACH #### [facility] [address] [place] [address] [place] ALT [Catalytic activity/Vol] 14 U/L Normal 10-60 [facility] Comment on above: Performed By: #### OUTREACH CMP, OUTREAC H LIPID, CBCNOOUTREACH #### [facility] [address] [place] [address] [place] AST [Catalytic activity/Vol] 22 U/L Normal 10-42 [facility] Comment on above: Performed By: #### OUTREACH CMP, OUTREAC H LIPID, CBCNOOUTREACH #### [facility] [address] [place] [address] [place] Bilirubin [Mass/Vol] 1.1 mg/dL Normal 0.3-1.2 [facility] Comment on above: Performed By: #### OUTREACH CMP, OUTREAC H LIPID, CBCNOOUTREACH #### [facility] [address] [place] [address] [place] Calcium [Mass/Vol] 9.7 mg/dL Normal 8.2-10.2 [facility] Comment on above: Performed By: #### OUTREACH CMP, OUTREAC H LIPID, CBCNOOUTREACH #### [facility] [address] [place] [address] [place] Chloride [Moles/Vol] 101 mmol/L Normal 95-114 [facility] Comment on above: Performed By: #### OUTREACH CMP, OUTREAC H LIPID, CBCNOOUTREACH #### [facility] [address] [place] [address] [place] CO2 [Moles/Vol] 28.8 mmol/L Normal 22.0-30.0 [facility] Comment on above: Performed By: #### OUTREACH CMP, OUTREAC H LIPID, CBCNOOUTREACH #### [facility] [address] [place] [address] [place] Creatinine [Mass/Vol] 0.75 mg/dL Normal 0.44-1.03 [facility] Comment on above: Performed By: #### OUTREACH CMP, OUTREAC H LIPID, CBCNOOUTREACH #### [facility] [address] [place] [address] [place] Estimated GFR ( Annie > 60 Normal [facility] Comment on above: Result Comment: GFR estimated reference range: According to KDOQI guidelines, <60 ml/min/1.73m2 is sufficient to diagnose a patient with chronic kidney disease. Performed By: #### O UTREACH CMP, OUTREACH LIPID, CBCNOOUTREACH #### [facility] [address] [place] [address] [place] Estimated GFR (Non- Am > 60 Normal [facility] Comment on above: Performed By: #### OUTREACH CMP, OUTREAC H LIPID, CBCNOOUTREACH #### [place] [address] [place] Glucose [Mass/Vol] 85 mg/dL Normal 70-100 [facility] Comment on above: Result Comment: Random Glucose Reference Range is dependent on time and content of last meal. Glucose of more than 200 mg/dL in a nonstressed, ambulatory subject supports the diagnosis of Diabetes Mellitus. ADA recommended reference range Performed By: #### O UTREACH CMP, OUTREACH LIPID, CBCNOOUTREACH #### [place] [address] [place] Potassium [Moles/Vol] 4.4 mmol/L Normal 3.5-5.1 [facility] Comment on above: Performed By: #### OUTREACH CMP, OUTREAC H LIPID, CBCNOOUTREACH #### [facility] [address] [place] [address] [place] Protein [Mass/Vol] 6.8 g/dL Normal 6.1-7.9 [facility] Comment on above: Performed By: #### OUTREACH CMP, OUTREAC H LIPID, CBCNOOUTREACH #### [facility] [address] [place] [address] [place] Sodium [Moles/Vol] 141 mmol/L Normal 136-146 [facility] Comment on above: Performed By: #### OUTREACH CMP, OUTREAC H LIPID, CBCNOOUTREACH #### [facility] [address] Urea nitrogen [Mass/Vol] 13 mg/dL Normal 9-23 [facility] Comment on above: Performed By: #### OUTREACH CMP, OUTREAC H LIPID, CBCNOOUTREACH #### [facility] [address] Lipid Profile Outreachon Cholesterol [Mass/Vol] 236 mg/dL High 140-200 [facility] Comment on above: Result Comment: Chol less than 200 mg/dl low risk Chol 201-239 mg/dl borderline risk Chol 240 mg/dl and greater high risk Performed By: #### O UTREACH CMP, OUTREACH LIPID, CBCNOOUTREACH #### [facility] [address] Cholesterol in HDL [Mass/Vol] 93 mg/dL High 35-85 [facility] Comment on above: Result Comment: HDL CHOL ATP-III CLASSIF ICATION Cardiovascular Risk HDL > or equal to 60 mg/dL LOW HDL < 40 mg/dL HIGH Performed By: #### O UTREACH CMP, OUTREACH LIPID, CBCNOOUTREACH #### [facility] [address] Cholesterol.tot al/Cholesterol in HDL [Mass ratio] 2.5 {ratio} Normal <5.0 [facility] Comment on above: Result Comment: PERFORMED BY: [place] [address] PATHOLOGIST ANTISQUEAK FILLER BRAD GARCÍA M.D. Performed By: #### O UTREACH CMP, OUTREACH LIPID, CBCNOOUTREACH #### [facility] [address] [id number] [place] LDL Cholesterol,Gama culated 130 mg/dL High 0-100 [facility] Comment on above: Result Comment: LDL ATP III CLASSIFICATI ON LDL less than 100 mg/dL Optimal LDL 100-129 mg/dL Near or above optimal LDL 130-159 mg/dL Borderline high LDL 160-189 mg/dL High LDL greater than 189 mg/dL Very high Performed By: #### O UTREACH CMP, OUTREACH LIPID, CBCNOOUTREACH #### [facility] [address] [id number] [facility] Triglyceride w/Reflex 64 mg/dL Normal 35-149 [facility] Comment on above: Result Comment: TRIG ATP III CLASSIFICAT ION TRIG less than 150 mg/dL Normal TRIG 150-199 mg/dL Borderline high TRIG 200-500 mg/dL High TRIG greater than 500 mg/dL Very high Standard traceable to the Center for Disease Conrtrol and Prevention (CDC) test method. Performed By: #### O UTREACH CMP, OUTREACH LIPID, CBCNOOUTREACH #### [facility] [address] VLDL CHOLESTEROL 12 mg/dL Normal [facility] Comment on above: Performed By: #### OUTREACH CMP, OUTREAC H LIPID, CBCNOOUTREACH #### [facility] [address] Main OR Intraoperative Recor don 07-09-2018 Main OR Intraoperative Record IntraOp Document Type FT Summary Primary Physician: Joel Monroe MD Finalized Date/Time: 07/09/18 12:32:26 Pt. Name: ZAYNAB ZAIDI Jose Manuel ToroB./Sex: 1955 Female Med Rec #: [id number] Physician: Joel Monroe MD Financial #: [id number] Pt. Type: A Room/Bed: [address] [address] Admit/Disch: 05/21/18 07:49:00 - 05/21/18 12:55:00 Institution: [...] Case Attendee Richie FRITZ DO, Kian Monroe MDJoel, DIANE, Ileana Role Performed Anesthesiologist of Surgeon - Primary Medical Underwriter - Primary Record Time In 05/21/18 10:37:00 [...] Pura Gutierrez CST, Giancarlo Villarreal Role Performed Engine Watchman Scrub - Primary Wholesale Account Manager Time In 05/21/18 10:37:00 05/21/18 10:37:00 05/21/18 [...] X-ray Applicable) PreOp Antibiotic Yes Time Out Kian Quiroz JR, DO, Cook MD, Joel Gonzalez, Lauren CARRILLO, RN, Ileana, Rosie RN, CNOR, Pura Ann, Brenda MORALES, Marry Cooper Time Out Complete 05/21/18 10:50:00 Outcomes Met? Yes Last Modified By: Laurne CARRILLO RN, Kelly 05/21/18 10:58:40 Post-Care Text: The patient is free from signs and symptoms of injury caused by extraneous objects Allergy Information FT Pre-Care Text: Verifies allergies Entry 1 Allergies Reviewed? Yes Allergies Reviewed Self/Patient With Outcomes Met? Yes Last Modified By: Rosie RN, AMOSOR, Pura Ann 05/21/18 10:40:58 Post-Care Text: The [...] and tissue Entry 1 Skin Integrity Intact, [place], Warm, and Skin Abnormality No Dry Outcomes [...] By Kian Quiroz JR, DO, Weisenburger BSN, RN, Fer Tejeda MD, Joel Gonzalez Outcomes Met? [...] RN, CNOR, Lou Ann Blank RN, CNOR, Pura Ann 05/21/18 10:42:45 05/21/18 10:42:45 05/21/18 10:42:45 Entry 4 Entry 5 Entry 6 Equipment Type MONITOR CHARGE SURGERY SUELLEN SUCTION UNIT [F] PADDED STIRRUPS [F] [F] Equipment Number Equipment Setting Outcomes Met? Yes Yes Yes Last Modified By: LAURIE Velez RN, Lou Ann Blank RN, AMOSORPura RN, Pura SULLIVAN 05/21/18 10:42:45 05/21/18 10:42:45 05/21/18 10:42:45 Entry 7 Entry 8 Equipment Type VENA FLOW UNIT[F] VIDEO SYSTEM[F] Equipment Number Equipment Setting Outcomes Met? Yes Yes Last Modified By: Rosie CONTRERAS, Pura SULLIVAN RN, CNOR, Lou Ann 05/21/18 10:42:45 05/21/18 [...] Kelly Patient Status Stable Skin. Condition Intact, [place], Warm, and Dry Airway Maintenance Oxygen in [...] safely administered during the perioperative period For [facility] please see scanned medication reconcilliation [...] BLANKET MISTRAL AIR Quantity 1 Aid TORSO [[id number]][F] Fluid/[place] Unit Mistral warming system Setting high Body Site Upper anterior torso Last Modified By: Lauren CARRILLO RN, Kelly 05/21/18 10:54:28 Case Comments Finalized By: Lauren CARRILLO RN, Kelly Document Signatures Signed By: Lauren CARRILLO RN, Kelly 05/21/18 11:09 Lauren CARRILLO RN, Kelly 05/21/18 11:09 Kira Carmona CST 05/22/18 09:27 Lauren CARRILLO RN, Kelly 07/09/18 12:32 Normal [facility] Coding Summary.on 05-25-2018 Coding Summary. CODING DATE: 018 FINAL [facility] STATUS: Home (Routine DC) PAYOR: Commercial [...] PROC APC STAT DESCRIPTION DOCTOR NAME DATE 74080 [id number] J1 Cystourethroscopy, with Joel Monroe MD 05/21/2018 ureteral catheterization, with or without irrigation, instillation, or ureteropyelography, exclusive of radiologic service; [id number] Anesthesia for 05/21/2018 transurethral procedures (including urethrocystoscopy); not otherwise specified NOTE: The code number assigned matches the documented diagnosis and / or procedure in the patient's chart. However, the narrative phrase printed from the coding software may appear abbreviated, or result in slightly different terminology. Revised Coded By: Lanny Lazcano Revised Date Saved: 05/25/2018 02:20 pm Normal [facility] Operative Reporton 08-10-201 8 Operative Report Date of Surgery: 05/21/2018SURGEON: Joel Monroe M.D.PREOPERATIVE DIAGNOSIS: N13.2 left hydronephrosis with left ureteralcalculusPOSTOPERATIVE DIAGNOSIS: N13.2 left hydronephrosis with left ureteralcalculusOPERATION: Cystoscopy, left retrograde pyelogramCOMPLICATIONS: NoneANESTHESIA: General by laryngeal mask airwayANESTHESIOLOGIST: Shira Quiroz Jr., D.O.FINDINGS: No evidence of ureteral stone or obstructionINDICATIONS: Mrs. Zaidi is a 62 year old female who [facility] with ongoing severe left-sided inguinal/vaginal pain. She [...] isplaced per urethra. A well lubricated 22 Cuban cystourethroscope with 30degree lens is then passed into the bladder. Moderately tight through theurethra upon passage. Once into the bladder panendoscopy reveals no tumors,no stones, no diverticula. The orifices are normal x2. Specifically thereis absolutely no left-sided ureteral inflammation. There is no erythema.There is nothing to suggest recent passage of a stone. A left retrogradepyelogram was then performed utilizing a 6 Cuban open-ended ureteralcatheter. The ureter is completely normal [...] the procedure well, was transferred to the [facility] then back to Post-Anesthesia Care Unit in [...] six months with Italo.Joel Monroe M.D.lkrDictated: 05/21/2018 #[id number]: 05/22/2018 #[id number]: Steve Tinajero M.D. [facility] Comment on above: Result Comment: Electronically Signed By : Joel Monroe MD\.br\Date and Time Signed: 05/22/18 16:45 EDT Inpatient Patient Summaryon 05-21-2018 [facility] Instructions[facility] INFORMATION Name: ZAYNAB ZAIDI PHYSICIANS Admitting Physician: Joel Monroe MDAttending Physician: Joel Monroe MD PCP: Lewis LUCAS MD Diagnosis: Hydronephrosis with ureteral calculus Comment: PATIENT EDUCATION INFORMATIONInstructions:Medica tion Leaflets:Follow up:With: Address: When: [address], [place] [address] [facility] (3) In 6 months 11/21/2018 Comments: Please have my office arrange for an abdominal X-ray before your visit (looking for stones in the kidneys) MEDICATION LISTComment: [facility] Main OR PACU I Recordon Main OR PACU I Record PACU Phase I Document Type FT Summary Primary Physician: Joel Monroe MD Finalized Date/Time: 05/21/18 12:01:48 Pt. Name: ZAYNAB ZAIDI /Sex: 1955 Female Med Rec #: [id number] Physician: Joel Monroe MD Financial #: [id number] Pt. Type: A Room/Bed: Admit/Disch: 05/21/18 07:49:37 - Institution: Case Times [...] By: Alisa Grider RN 05/21/18 12:01 Normal [facility] Main OR PACU II Recordon Main OR PACU II Record PACU Phase II Document Type FT Summary Primary Physician: Joel Monroe MD Finalized Date/Time: 05/21/18 13:41:43 Pt. Name: ZAYNAB ZAIDI Jose Manuel Martin/Sex: 1955 Female Med Rec #: [id number] Physician: Joel Monroe MD Financial #: [id number] Pt. Type: A Room/Bed: [place] [address] Admit/Disch: 05/21/18 07:49:37 - Institution: Case Times [...] Signed By: Almita Poe RN 05/21/18 13:41 [facility] Main OR Preoperative Recordo n 05-21-2018 Main OR Preoperative Record PreOp Document Type FT Summary Primary Physician: Joel Monroe MD Finalized Date/Time: 05/21/18 10:37:48 Pt. Name: ZAYNAB ZAIDI /Sex: 1955 Female Med Rec #: [id number] Physician: Joel Monroe MD Financial #: [id number] Pt. Type: A Room/Bed: [place] [address] Admit/Disch: 05/21/18 07:49:37 - Institution: Case Times [...] Velez RN, Lou Ann 05/21/18 10:37 Normal [facility] Patient Education - Texton 0 05-21-2018 Patient Education - Text Normal [facility] Progress Note-Physicianon Protein mass conc Patient: ZAYNAB ZAIDI Age: 62 years Sex: Female : 1955 Associated Diagnoses: None Author: Kian Quiroz JR, DO Postoperative Information Post Operative Note: Post Anesthesia Care Unit. Anesthetic utilized: General, Monitored anesthesia care. Health Status Allergies: Allergic Reactions (Selected)SevereAmoxicillin- Rash.Bee Stings- Redness.Clindamycin- Rash.Doxycycline- Stomach upset.Penicillins- Rash. Current medications: (Selected) Inpatient SvanmtxldwqLnzvimoZ5OP 1000 mL Soln-IV 1,000 mL: 1,000 mL, [...] stone on left side / SNOMED CT 408802859 / ConfirmedArthritis / SNOMED CT 3764632 / Confirmed Physical Examination Intake and Output Denies significant n/v and is tolerating p.o. Vital Signs (last 24 hrs) Last Charted Temp Oral 36.9 DegC (MAY 21:55)Heart Rate Apical 70 bpm (MAY 21 09:00)Resp Rate 16 br/min (MAY 21:55)SBP 138 mmHg (MAY 21:55)DBP 81 mmHg (MAY 21:)SpO2 99 % (MAY 21 12:) Pain assessment: [...] 6 . Respiratory: Adequate air exchange with religious of preoperative function.. Cardiovascular: Cardiovascular function is stable and has returned to preoperative levels.. Neurologic: Pt has returned to preoperative baseline.. Review / Management Condition: Stable. Assessment Anesthetic outcome No anesthetic complications noted. Plan Transfer/ Discharge: Patient can be discharged from PACU when criteria met. Condition good. Normal [facility] Comment on above: Result Comment: Electronically [...] Stomach upset.Penicillins- Rash. Current medications: (Selected) Inpatient CfosbgaqqcyOxhvwkzR8BU 1000 mL Soln-IV 1,000 mL: 1,000 mL, [...] stone on left side / SNOMED CT 940811932 / ConfirmedArthritis / SNOMED CT 9394645 / Confirmed Physical Examination Intake and Output Denies significant n/v and is tolerating p.o. Vital Signs (last 24 hrs) Last Charted Temp Oral 36.6 DegC (MAY 21 08:12)Heart Rate Apical 70 bpm (MAY 21 09:00)Resp Rate 16 br/min (MAY 21 08:12)SBP H 147 mmHg (MAY 21:50)DBP 75 mmHg (MAY 21:50)SpO2 98 % (MAY 21 08:14) Pain assessment: Pain Assessment 05/21/2018 08:12 EDT Preliminary Pain Scale 6 05/21/2018 08:12 EDT Pain Symptoms Self Report Yes, able to self report Primary Pain Location Uterine Primary Pain Laterality Left Primary Pain Quality Burning, Cramping Patient Preferred Pain Tool Numeric rating Numeric Pain Scale 6 Numeric Pain Score 6 . Respiratory: Adequate air exchange with religious of preoperative function.. Cardiovascular: Cardiovascular function is stable and has returned to preoperative levels.. Neurologic: Pt has returned to preoperative baseline.. Review / Management Condition: Stable. Assessment Anesthetic outcome No anesthetic complications noted. Plan Transfer/ Discharge: Patient can be discharged from PACU when criteria met. Condition good. Normal [facility] Protein mass conc Patient: ZAYNAB ZAIDI Age: [...] Stomach upsetpenicillins Rash Current medications: (Selected) Inpatient [id number] 1000 mL Soln-IV 1,000 mL: 1,000 mL, [...] [F] 0.4 mg 0.2 mL, IV Push, v6ilazmroofidibwq 25 mg/mL Inj [F] 12.5 mg 0.5 mL, IV Push, q2min Problem list: All ProblemsKidney stone on left side / SNOMED CT 169471413 / ConfirmedArthritis / SNOMED CT 3430309 / Confirmed, Active Problems (2)Arthritis Kidney stone on left side Histories Past Medical History: No active or resolved past medical history items have been selected or recorded. Family History: No family history items have been selected or recorded. Procedure history: Cholecystectomy ([id number]).knee arthroscopy for torn meniscus, rt.Tubal ligation ([id number]). Social History Social & Psychosocial IfznqjCrbotwm99/07/2018 Risk Assessment: Denies Alcohol UseSubstance Abuse05/19/2018 Risk Assessment: Denies Substance RooqhWjqumsx33/07/2018 Risk Assessment: Denies Tobacco Use. Physical Examination Vital Signs (last 24 hrs) Last Charted Temp Oral 36.6 DegC (MAY 21:12)Heart Rate Apical 70 bpm (MAY 21 09:00)Resp Rate 16 br/min (MAY 21 08:12)SBP H 147 mmHg (MAY 21 09:50)DBP 75 mmHg (MAY 21 09:50)SpO2 98 % (MAY 21 08:14) Airway: Normal oral/pharyngeal anatomy.. Respiratory: Adequate air exchange.. Cardiovascular: Adequate perfusion and function. Review / Management Results review: No qualifying data available. Plan [place] [employer] Anesthesiologists (ASA) physical status classification: Class II. Anesthetic Preoperative Plan Anesthesia: General. . Anesthetic plan, risks, benefits, and alternatives discussed with the patient and/or family. Pt. and/or family present and agree to proceed as planned.. Discussed the importance of abstaining from tobacco products, and offered counseling if desired. [facility] Comment on above: Result Comment: [...] REPORT Dictated: 05/21/2018 12:38 pm Bryanna Morris MD Signed (Electronic Signature): 05/21/2018 12:38 pm Signed by: Bryanna Morris MD Transcribed by: DORON Technologist: FRANCISCA Normal [facility] XR Urography Retrograde Left on 05-21-2018 [...] mGy = 3.1Fluoro Time: 54 seconds Normal [facility] Coding Summary.on 05-20-2018 Coding Summary. CODING DATE: 018 FINAL [facility] STATUS: Home (Routine DC) PAYOR: Commercial [...] Eng Date Saved: 05/20/2018 01:06 pm Normal [facility] PT & PTTon 05-19-2018 aPTT Coag time (Bld) 30.5 second(s) Normal 25.1-36.5 [facility] Comment on above: Result Comment: Heparin therapeutic rang e (represented by Anti-Factor Xa activity of 0.2 - 0.4 U/mL) corresponds to PTT of 53.9 - 87.4 sec. Performed By: #### 1 [id number] ####[facility] [address] [place] [address] INR Coag RelTime (PPP) 1.0 {INR} Invalid Interpretation Code [facility] Comment on above: Result Comment: INR results are specific ally intended to assess patients stabilized on long-term Anticoagulation therapy suggested INR?s ?Less Intensive Anticoagulation? 2.0 ? 3.0Conventional Range 3.0 ? 4.5 Performed By: #### [id number] ####[facility] [address] [place] [address] Prothrombin time (PT) Coag time (PPP) 10.9 second(s) Normal 10.2-12.9 [facility] Comment on above: Performed By: #### [id number] ####[facility] [address] [place] [address] XR Chest 2 Viewson XR Chest 2 Views Exam Date/Time:05/19/2018 13:26 EDTReason for Exam:pre opReportIMPRESSION: NO ACTIVE [...] Siddiqi MD Transcribed by: akbar Technologist: SHARRON Normal [facility] Vital Signs Date Time Vital Sign Value Performing Clinician Facility 07-26-2024 10:19-0400 Body height 170.2 cm Sarah Godwin MD Work Phone: [facility] 07-26-2024 10:19-0400 Body mass index (BMI) [Ratio] 21.64 kg/m2 Sarah Godwin MD Work Phone: [facility] 07-26-2024 10:19-040 Body temperature 98.29 [degF] Sarah Godwin MD Work Phone: [facility] 07-26-2024 10:19-0400 Body weight 62.69 kg Sarah Godwin MD Work Phone: [facility] 07-06-2024 10:26-0400 Body mass index (BMI) [Ratio] 21.27 kg/m2 Augustina Vargas MD Work Phone: [facility] 07-06-2024 10:26-0400 Body weight 61.6 kg Augustina Vargas MD Work Phone: [facility] 07-06-2024 10:26-0400 Diastolic blood pressure 70 mm[Hg] Augustina Vargas MD Work Phone: [facility] 07-06-2024 10:26-0400 Systolic blood pressure 132 mm[Hg] Augustina Vargas MD Work Phone: [facility] 06-03-2024 08:47-0400 Body height 170.2 cm Tessa Tenisha DO Work Phone: [facility] 06-03-2024 08:47-0400 Body mass index (BMI) [Ratio] 21.77 kg/m2 Tessa Tenisha DO Work Phone: [facility] 06-03-2024 08:47-0400 Body weight 63.05 kg Tessa Tenisha DO Work Phone: [facility] 06-03-2024 08:47-0400 Diastolic blood pressure 57 mm[Hg] Tessa Tenisha DO Work Phone: [facility] 06-03-2024 08:47-0400 Heart rate 66 /min Tessa Tenisha DO Work Phone: [facility] 06-03-2024 08:47-0400 SaO2% (BldA) [Mass fraction] 99 % Tessa Tenisha DO Work Phone: [facility] 06-03-2024 08:47-0400 Systolic blood pressure 117 mm[Hg] Tessa Tenisha DO Work Phone: [facility] 05-27-2024 08:49-0400 Body height 170.2 cm Augustina Vargas MD Work Phone: [facility] 05-27-2024 08:49-0400 Body mass index (BMI) [Ratio] 20.83 kg/m2 Augustina Vargas MD Work Phone: [facility] 05-27-2024 08:49-0400 Body weight 60.33 kg Augustina Vargas MD Work Phone: [facility] 05-27-2024 08:49-0400 Diastolic blood pressure 80 mm[Hg] Augustina Vargas MD Work Phone: [facility] 05-27-2024 08:49-0400 Systolic blood pressure 146 mm[Hg] Augustina Vargas MD Work Phone: [facility] 02-19-2024 12:57-0400 Body height 170.2 cm Pac 9 Work Phone: [facility] 02-19-2024 12:57-0400 Body mass index (BMI) [Ratio] 20.92 kg/m2 Pac 9 Work Phone: [facility] 02-19-2024 12:57-0400 Body temperature 97 [degF] Pac 9 Work Phone: [facility] 02-19-2024 12:57-0400 Body weight 60.6 kg Pac 9 Work Phone: [facility] 02-19-2024 12:57-0400 Diastolic blood pressure 71 mm[Hg] [facility] 9 Work Phone: [facility] 02-19-2024 12:57-0400 Heart rate 60 /min Pac 9 Work Phone: [facility] 02-19-2024 12:57-0400 SaO2% (BldA) [Mass fraction] 100 % Pac 9 Work Phone: [facility] 02-19-2024 12:57-0400 Systolic blood pressure 137 mm[Hg] [facility] 9 Work Phone: [facility] 02-10-2024 09:53-0400 Body height 170.2 cm Sarah Godwin MD Work Phone: [facility] 02-10-2024 09:53-0400 Body mass index (BMI) [Ratio] 20.86 kg/m2 Sarah Godwin MD Work Phone: [facility] 02-10-2024 09:53-0400 Body temperature 98.71 [degF] Sarah Godwin MD Work Phone: [facility] 02-10-2024 09:53-0400 Body weight 60.42 kg Sarah Godwin MD Work Phone: [facility] 12-18-2023 11:37-0500 Body height 168.9 cm Rina Fox MD Work Phone: [facility] 12-18-2023 11:37-0500 Body temperature 98.29 [degF] Rina Fox MD Work Phone: [facility] 12-18-2023 11:37-0500 Body weight 58.42 kg Rina Fox MD Work Phone: [facility] 12-18-2023 11:37-0500 Diastolic blood pressure 87 mm[Hg] Rina Fox MD Work Phone: [facility] 12-18-2023 11:37-0500 Heart rate 64 /min Rina Fox MD Work Phone: [facility] 12-18-2023 11:37-0500 Respiratory rate 14 /min Rina Fox MD Work Phone: [facility] 12-18-2023 11:37-0500 SaO2% (BldA) [Mass fraction] 100 % Rina Fox MD Work Phone: [facility] 12-18-2023 11:37-0500 Systolic blood pressure 131 mm[Hg] Rina Fox MD Work Phone: [facility] 12-02-2023 12:23-0500 Body height 170.2 cm Alex Iwema PA-C Work Phone: [facility] [employer] 12-02-2023 12:23-0500 Body mass index (BMI) [Ratio] 20.45 kg/m2 Alex Iwema PA-C Work Phone: [facility] 12-02-2023 12:23-0500 Body temperature 98.01 [degF] Alex Iwema PA-C Work Phone: [facility] 12-02-2023 12:23-0500 Body weight 59.24 kg Alex Iwema PA-C Work Phone: [facility] 11-12-2023 14:20-0500 Body height 170.2 cm [facility] [employer] [facility] 11-12-2023 14:20-0500 Body mass index (BMI) [Ratio] 20.92 kg/m2 [facility] [employer] [facility] 11-12-2023 14:20-0500 Body temperature 98.2 [degF] [facility] 11-12-2023 14:20-0500 Body weight 60.6 kg [facility] 1 [facility] [employer] [facility] 11-12-2023 14:20-0500 Diastolic blood pressure 81 mm[Hg] [facility] [employer] [facility] 11-12-2023 14:20-0500 Heart rate 67 /min [facility] [employer] [facility] 11-12-2023 14:20-0500 Respiratory rate 18 /min [facility] 1 [facility] [employer] [facility] 11-12-2023 14:20-0500 SaO2% (BldA) [Mass fraction] 98 % [facility] 11-12-2023 14:20-0500 Systolic blood pressure 127 mm[Hg] [facility] 09-30-2023 15:43-0500 Body height 170.2 cm Sarah Godwin MD Work Phone: [facility] 09-30-2023 15:43-0500 Body mass index (BMI) [Ratio] 20.05 kg/m2 Sarah Godwin MD Work Phone: [facility] 09-30-2023 15:43-0500 Body temperature 98.71 [degF] [facility] 09-30-2023 15:43-0500 Body weight 58.06 kg Sarah Godwin MD Work Phone: [employer] 09-01-2023 10:45-0500 Body height 167.64 cm Ammon Lucas Other [facility] Other 09-01-2023 10:45-0500 Body mass index (BMI) [Ratio] 19.69 kg/m2 Ammon Lucas Other [facility] Other 09-01-2023 10:45-0500 Body weight 55.34 kg Ammon Lucas Other [facility] Other 09-01-2023 10:45-0500 Diastolic blood pressure 76 mm[Hg] Ammon Lucas Other [facility] Other 09-01-2023 10:45-0500 Systolic blood pressure 138 mm[Hg] Ammon Lucas Other [facility] Other 07-29-2023 10:00-0400 Body height 167.64 cm Ammon Lucas Other [facility] Other 07-29-2023 10:00-0400 Body mass index (BMI) [Ratio] 19.72 kg/m2 Ammon Lucas Other [facility] Other 07-29-2023 10:00-0400 Body weight 55.43 kg Ammon Lucas Other [facility] Other 07-29-2023 10:00-0400 Diastolic blood pressure 76 mm[Hg] Ammon Lucas Other [facility] Other 07-29-2023 10:00-0400 Systolic blood pressure 123 mm[Hg] Ammon Lucas Other [facility] Other 07-02-2023 10:00-0400 Body height 167.64 cm Ammon Lucas Other [facility] Other 07-02-2023 10:00-0400 Body mass index (BMI) [Ratio] 20.01 kg/m2 Ammon Lucas Other [facility] Other 07-02-2023 10:00-0400 Body weight 56.25 kg Ammon Lucas Other [facility] Other 07-02-2023 10:00-0400 Diastolic blood pressure 88 mm[Hg] Ammon Lucas Other [facility] Other 07-02-2023 10:00-0400 Systolic blood pressure 145 mm[Hg] Ammon Lucas Other [facility] Other 06-06-2023 13:45-0400 Body height 167.64 cm Ammon Lucas Other [facility] Other 06-06-2023 13:45-0400 Body mass index (BMI) [Ratio] 20.66 kg/m2 Ammon Lucas Other [facility] Other 06-06-2023 13:45-0400 Body weight 58.06 kg Ammon Lucas Other [facility] Other 06-06-2023 13:45-0400 Diastolic blood pressure 70 mm[Hg] Ammon Lucas Other [facility] Other 06-06-2023 13:45-0400 SaO2% (BldA) [Mass fraction] 99 % Ammon Lucas Other [facility] Other 06-06-2023 13:45-0400 Systolic blood pressure 112 mm[Hg] Ammon Lucas Other [facility] Other 05-29-2023 09:50-0400 Body height 167.64 cm Ayaka Joyner Other [facility] Other 05-29-2023 09:50-0400 Body mass index (BMI) [Ratio] 20.43 kg/m2 Ayaka Joyner Other [facility] Other 05-29-2023 09:50-0400 Body temperature 98.3 [degF] Ayaka Joyner Other [facility] Other 05-29-2023 09:50-0400 Body weight 57.43 kg Ayaka Joyner Other [facility] Other 05-29-2023 09:50-0400 Diastolic blood pressure 88 mm[Hg] Ayaka Joyner Other [facility] Other 05-29-2023 09:50-0400 Respiratory rate 18 /min Ayaka Joyner Other [facility] Other 05-29-2023 09:50-0400 SaO2% (BldA) [Mass fraction] 96 % Ayaka Joyner Other [facility] Other 05-29-2023 09:50-0400 Systolic blood pressure 144 mm[Hg] Ayaka Joyner Other [facility] Other 02-11-2023 14:45-0400 Body height 167.64 cm Ammon Lucas Other [facility] Other 02-11-2023 14:45-0400 Body mass index (BMI) [Ratio] 22.76 kg/m2 Ammon Lucas Other [facility] Other 02-11-2023 14:45-0400 Body temperature 97.8 [degF] Ammon Lucas Other [facility] Other 02-11-2023 14:45-0400 Body weight 63.96 kg Ammon Lucas Other [facility] Other 02-11-2023 14:45-0400 Diastolic blood pressure 80 mm[Hg] Ammon Lucas Other [facility] Other 02-11-2023 14:45-0400 SaO2% (BldA) [Mass fraction] 93 % Ammon Lucas Other [facility] Other 02-11-2023 14:45-0400 Systolic blood pressure 148 mm[Hg] Ammon Lucas Other [facility] Other 02-11-2023 11:15-0400 Body height 168.91 cm Ayaka Joyner Other [facility] Other 02-11-2023 11:15-0400 Body mass index (BMI) [Ratio] 21.94 kg/m2 Ayaka Joyner Other [facility] Other 02-11-2023 11:15-0400 Body temperature 98.7 [degF] Ayaka Joyner Other [facility] Other 02-11-2023 11:15-0400 Body weight 62.6 kg Ayaka Joyner Other [facility] Other 02-11-2023 11:15-0400 Diastolic blood pressure 83 mm[Hg] Ayaka Joyner Other [facility] Other 02-11-2023 11:15-0400 Respiratory rate 18 /min Ayaka Joyner Other [facility] Other 02-11-2023 11:15-0400 SaO2% (BldA) [Mass fraction] 99 % Ayaka Joyner Other [facility] Other 02-11-2023 11:15-0400 Systolic blood pressure 152 mm[Hg] Ayaka Joyner Other [facility] Other 11-22-2022 13:35-0500 Body height 168.91 cm Ayaka Joyner Other [facility] Other 11-22-2022 13:35-0500 Body mass index (BMI) [Ratio] 22.1 kg/m2 Ayaka Joyner Other [facility] Other 11-22-2022 13:35-0500 Body temperature 98 [degF] Ayaka Joyner Other [facility] Other 11-22-2022 13:35-0500 Body weight 63.05 kg Ayaka Ar Other [facility] Other 11-22-2022 13:35-0500 Respiratory rate 18 /min Ayaka Ar Other [facility] Other 11-22-2022 13:35-0500 SaO2% (BldA) [Mass fraction] 98 % Ayaka Ar Other [facility] Other 10-31-2022 15:30-0500 Body height 168.91 cm Ammon Lucas Other [facility] Other 10-31-2022 15:30-0500 Body mass index (BMI) [Ratio] 22.57 kg/m2 Ammon Lucas Other [facility] Other 10-31-2022 15:30-0500 Body weight 64.41 kg Ammon Lucas Other [facility] Other 10-31-2022 15:30-0500 Diastolic blood pressure 72 mm[Hg] Ammon Lucas Other [facility] Other 10-31-2022 15:30-0500 SaO2% (BldA) [Mass fraction] 97 % Ammon Lucas Other [facility] Other 10-31-2022 15:30-0500 Systolic blood pressure 128 mm[Hg] Ammon Lucas Other [facility] Other 07-28-2022 12:55-0400 Body height 170.18 cm Ayaka Joyner Other [facility] Other 07-28-2022 12:55-0400 Body mass index (BMI) [Ratio] 22.65 kg/m2 Ayaka Ar Other [facility] Other 07-28-2022 12:55-0400 Body temperature 98.5 [degF] Ayaka Joyner Other [facility] Other 07-28-2022 12:55-0400 Body weight 65.59 kg Ayaka Joyner Other [facility] Other 07-28-2022 12:55-0400 Respiratory rate 18 /min Ayaka Ar Other [facility] Other 07-28-2022 12:55-0400 SaO2% (BldA) [Mass fraction] 99 % Ayaka Joyner Other [facility] Other 09-14-2021 19:10-0500 Body height 170.18 cm Manuela Sheeba Other [facility] Other 09-14-2021 19:10-0500 Body mass index (BMI) [Ratio] 21.92 kg/m2 Manuela Sheeba Other [facility] Other 09-14-2021 19:10-0500 Body temperature 97.7 [degF] Manuela Sheeba Other [facility] Other 09-14-2021 19:10-0500 Body weight 63.5 kg Manuela Sheeba Other [facility] Other 09-14-2021 19:10-0500 Respiratory rate 18 /min Manuela Sheeba Other [facility] Other 09-14-2021 19:10-0500 SaO2% (BldA) [Mass fraction] 99 % Manuela Sheeba Other [facility] Other 07-29-2021 12:25-0400 Body height 170.18 cm Manuela Sheeba Other [facility] Other 07-29-2021 12:25-0400 Body mass index (BMI) [Ratio] 21.92 kg/m2 Manuela Sheeba Other [facility] Other 07-29-2021 12:25-0400 Body temperature 97.8 [degF] Manuela Sheeba Other [facility] Other 07-29-2021 12:25-0400 Body weight 63.5 kg Manuela Sheeba Other [facility] Other 07-29-2021 12:25-0400 Diastolic blood pressure 80 mm[Hg] Manuela Sheeba Other [facility] Other 07-29-2021 12:25-0400 Respiratory rate 18 /min Manuela Sheeba Other [facility] Other 07-29-2021 12:25-0400 SaO2% (BldA) [Mass fraction] 99 % Manuela Sheeba Other [facility] Other 07-29-2021 12:25-0400 Systolic blood pressure 145 mm[Hg] Manuela Sheeba Other [facility] Other Encounters Encounter Date Encounter Type Care Provider Facility Start: 01-17-2025 ambulatory [facility] Start: 01-12-2025 ambulatory AUGUSTINA VARGAS [facility] Start: 12-13-2024 ambulatory AUGUSTINA VARGAS [facility] Start: 12-06-2024 End: 12-06-2024 Bamboo flowsheet Keri LIN Work Phone: [facility] Start: 12-06-2024 End: 12-06-2024 Bamboo flowsheet Keri LIN Work Phone: [facility] Start: 11-29-2024 End: 11-29-2024 [facility] Start: 11-29-2024 End: 11-29-2024 Subsequent hospital visit 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 Comment on above: Arrived Start: 11-22-2024 End: 11-22-2024 [facility] Start: 11-22-2024 End: 11-22-2024 Subsequent hospital visit by physician Rosemary [facility] Comment on above: Arrived Start: 11-17-2024 End: 11-17-2024 E-mail encounter from caregiver Jagruti Salazar PA-C Work Phone: [facility] Start: 11-17-2024 End: 11-17-2024 Follow-up encounter Jagruti Salazar PA-C Work Phone: [facility] Comment on above: actionable finding f ollow up Start: 11-16-2024 End: 11-16-2024 [facility] Start: 11-16-2024 End: 11-16-2024 Subsequent hospital visit by physician [facility] Comment on above: Arrived Start: 11-01-2024 End: 11-01-2024 Telephone encounter Augustina Vargas MD Work Phone: [facility] Comment on above: Orders (PFPT) Start: 09-22-2024 ambulatory AUGUSTINA VARGAS [facility] Start: 09-21-2024 End: 09-21-2024 Telephone encounter Augustina Vargas MD Work Phone: [facility] Comment on above: Other; Patient Updat e Start: 09-15-2024 ambulatory AUGUSTINA VARGAS [facility] Start: 09-01-2024 End: 09-01-2024 ambulatory [facility]UGUSTINA [facility] Start: 09-01-2024 End: 09-01-2024 Subsequent hospital visit by physician [facility] Comment on above: Arrived Start: 08-23-2024 End: 08-23-2024 Telephone encounter Augustina Vargas MD Work Phone: [facility] Comment on above: Medication Problem Start: 08-23-2024 End: 08-23-2024 ambulatory AUGUSTINA [facility]e [facility] Start: 08-23-2024 End: 08-23-2024 Subsequent [...] Arrived Start: 08-09-2024 End: 08-09-2024 [facility]ulatory [facility] Start: 08-02-2024 End: 08-02-2024 ambulatory [facility] Start: 08-02-2024 End: 08-02-2024 Subsequent hospital visit by physician Rosemary [facility] Comment on above: Arrived Start: 07-26-2024 End: 07-26-2024 Office outpatient visit 10 minutes Sarah Godwin MD Work Phone: [facility] Comment on above: Chronic sialoadeniti s (Primary Dx) Start: 07-26-2024 End: 07-26-2024 ambulatory SARAH GODWIN [facility] Start: 07-12-2024 End: 07-12-2024 ambulatory [facility] Start: 07-07-2024 End: 07-07-2024 ambulatory [facility] Start: 07-06-2024 End: 07-06-2024 ambulatory AUGUSTINA CHAMBERLAINVANESA Facility:[facility] Start: 07-06-2024 End: 07-06-2024 Patient encounter procedure Augustina Vargas MD Work Phone: Gynecology Comment on above: High-tone pelvic stevan or dysfunction (Primary Dx); Nutcracker phenomenon of renal vein; Vaginal dryness; Pelvic congestion; Acute constipation; Postmenopausal atrophic vaginitis; Urethral caruncle; Myalgia Start: 07-02-2024 End: 07-02-2024 Refill Tracy Gonzalez RN [facility] Comment on above: Med Refill Start: 06-28-2024 End: 06-28-2024 ambulatory [facility] Start: 06-21-2024 End: 06-21-2024 ambulatory [facility] Start: 06-21-2024 End: 06-21-2024 Subsequent hospital visit by physician Rosemary [facility] Comment on above: Arrived Start: 06-15-2024 End: 06-15-2024 ambulatory AUGUSTINA [facility]e [facility] Start: 06-15-2024 End: 06-15-2024 Subsequent hospital visit by physician Yelena Steve PT [facility] Comment on above: Arrived Start: 06-06-2024 End: 06-07-2024 Telephone encounter Augustina Vargas MD Work Phone: Gynecology Comment on above: botox auth Start: 06-04-2024 End: 06-07-2024 Telephone encounter Augustina Vargas MD Work Phone: [facility] Comment on above: Patient Question Start: 06-03-2024 End: 06-03-2024 Bamboo flowsheet Tessa Jose Manuel Tenisha DO Work Phone: [facility] Start: 06-03-2024 End: 06-03-2024 Bamboo flowsheet Tessa K Tenisha DO Work Phone: [facility] Start: 06-03-2024 End: 06-03-2024 ambulatory TESSA STEVEN Not Available Start: 06-03-2024 End: 06-03-2024 Office outpatient visit 25 minutes Tessa Jose Manuel Tenisha DO Work Phone: [facility] Comment on above: Pulmonary nodule (Pr [...] Start: 05-10-2024 End: 05-10-2024 ambulatory TESSA STEVEN [facility] Start: 04-26-2024 ambulatory AMMON LUCAS Facility :[facility] Start: 04-26-2024 End: 04-26-2024 Subsequent hospital visit by physician [facility] Comment on above: Other disorders of [...] degree (HCC) Start: 04-07-2024 End: 04-07-2024 ambulatory MOHAMED ELTEMAMY Facility:[facility] Start: 03-05-2024 End: 03-05-2024 Evaluation and management of inpatient AMMON LUCAS Facility:[facility] Start: 03-02-2024 End: 03-05-2024 Evaluation and management of inpatient MOHAMED ELTEMAMY Facility:[facility] Start: 02-19-2024 End: 02-19-2024 Patient encounter procedure Chip Carr MD Work Phone: Urology Comment on above: 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) Start: 02-19-2024 End: 02-19-2024 ambulatory Chip Carr MD Work Phone: Urology Start: 02-19-2024 End: 02-19-2024 Admission to establishment [facility] Work Phone: Pre Anesthesia Start: 02-19-2024 End: 02-19-2024 Anesthesia consultation [facility] Work Phone: Pre Anesthesia Comment on above: Preop examination (P rimary Dx); 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); [place]'s syndrome; Other hyperlipidemia; Ovarian varices; Nutcracker phenomenon of renal vein; Narcotic drug use Start: 02-19-2024 End: 02-19-2024 Preprocedural examination done [facility] Work Phone: [facility] Work Phone: Start: 02-19-2024 Encounter for other preprocedural examination CHIP CARR [facility] Start: 02-17-2024 ambulatory AMMON Larisa LUCAS [facility] Start: 02-10-2024 End: 02-10-2024 Patient encounter procedure Sarah Godwin MD Work Phone: [facility] Comment on above: Chronic sialoadeniti s (Primary Dx) Start: 02-10-2024 End: 02-10-2024 ambulatory SARAH GODWIN [facility] Start: 01-29-2024 End: 01-29-2024 ambulatory TESSA STEVEN Not Available Start: 01-16-2024 End: 01-16-2024 ambulatory TESAS STEVEN [facility] Start: 01-13-2024 Telephone encounter Rina eagle [...] encounter status Lisa Fox MD Work Phone: [facility] Start: 12-18-2023 End: 12-18-2023 ambulatory RINA FOX Facility:[facility] Start: 12-18-2023 End: 12-18-2023 Office outpatient new [...] Dx) Start: 12-11-2023 Telephone encounter No Pcp [employer] [facility] Comment on above: Patient Question Start: 12-03-2023 End: 12-03-2023 ambulatory TESSA STEVEN Not Available Start: 12-02-2023 End: 12-02-2023 Patient encounter procedure Alex Ramirez PA-C Work Phone: [facility] Comment on above: Submandibular gland swelling (Primary Dx); Chronic sialoadenitis Start: 12-02-2023 End: 12-02-2023 ambulatory ALEX RAMIREZ [facility] Start: 11-24-2023 End: 11-24-2023 Evaluation and management of inpatient YEN HALINA [facility] Start: 11-24-2023 End: 11-24-2023 Evaluation and management of inpatient SARAH GODWIN [facility] Start: 11-20-2023 Telephone encounter Sarah Godwin MD Work Phone: [facility] Start: 11-12-2023 End: 11-12-2023 ambulatory SARAH Von GODWIN [facility] Start: 11-12-2023 Encounter for other preprocedural examination SARAH GODWIN [facility] Start: 11-12-2023 End: 11-12-2023 Patient encounter procedure Metro Pat Provider 1 Sveta Rubio [facility] Comment on above: Preop testing (Prima ry Dx); Hearing disorder retrocochlear Start: 11-12-2023 End: 11-12-2023 Patient encounter status [facility] 1 [facility] Start: 11-11-2023 End: 11-11-2023 ambulatory CHIP CARR Facility:[facility] Start: 11-05-2023 End: 11-05-2023 ambulatory PAGE BUCHANAN Facility:[facility] Start: 10-08-2023 End: 10-08-2023 ambulatory Ammon Lucas Other [facility] Other Start: 10-08-2023 Telephone encounter Ammon Lucas [facility] Start: 09-30-2023 End: 09-30-2023 Patient encounter procedure Sarah Godwin MD Work Phone: [facility] Comment on above: Submandibular gland swelling (Primary Dx); Chronic sialoadenitis; Sensorineural hearing loss (SNHL), bilateral Start: 09-30-2023 End: 09-30-2023 ambulatory SARAH GODWIN [facility] Start: 09-01-2023 End: 09-01-2023 ambulatory Ammon Lucas Other [facility] Other Start: 09-01-2023 Office outpatient vi sit 15 minutes Ammon Lucas [facility] Start: 08-22-2023 Telephone encounter No Pcp [employer] [facility] Comment on above: Appointment Start: 07-29-2023 End: 07-29-2023 ambulatory Ammon Lucas Other [facility] Other Start: 07-29-2023 Office outpatient vi sit 15 minutes Ammon Lucas [facility] Start: 07-02-2023 End: 07-02-2023 ambulatory Ammon Lance Other [facility] Other Start: 07-02-2023 Office outpatient vi sit 15 minutes Ammon Lucas [facility] Start: 06-10-2023 End: 06-10-2023 ambulatory Ammon Lance Other [facility] Other Start: 06-10-2023 Telephone encounter Ammon Lucas [facility] Start: 06-06-2023 End: 06-06-2023 ambulatory Ammon Lucas Other [facility] Other Start: 06-06-2023 Office outpatient vi sit 15 minutes Ammon Lucas [facility] Start: 06-05-2023 End: 06-05-2023 ambulatory Ammon Lance Other [facility] Other Start: 06-05-2023 Telephone encounter Ammon Lance [facility] Start: 05-30-2023 End: 05-30-2023 ambulatory Ammon Lance Other [facility] Other Start: 05-30-2023 Telephone encounter Ammon Lance [facility] Start: 05-29-2023 End: 05-29-2023 ambulatory Ayaka Joyner Other [facility] Other Start: 05-29-2023 Office outpatient vi sit 25 minutes Ayaka Joyner [facility] Start: 05-09-2023 End: 05-09-2023 ambulatory Ammon Lucas Other [facility] Other Start: 05-09-2023 Telephone encounter Ammon Lucas [facility] Start: 02-22-2023 End: 02-22-2023 ambulatory NAVEEN KAHN Facility:[facility] Start: 02-18-2023 End: 02-18-[address] BOSSMAN CEVALLOS . Facility:[facility] Start: 02-11-2023 End: 02-11-2023 ambulatory Ayaka Joyner Other [facility] Other Start: 02-11-2023 Office outpatient vi sit 15 minutes Ayaka Ar [facility] Start: 02-11-2023 Telephone encounter Ammon Lucas [facility] Start: 11-25-2022 End: 11-25-[address] BOSSMAN CEVALLOS . Facility:[facility] Start: 11-22-2022 End: 11-22-2022 ambulatory Ayaka Joyner Other [facility] Other Start: 11-22-2022 Office outpatient vi sit 25 minutes Ayaka Ar [facility] Start: 11-02-2022 End: 11-02-2022 ambulatory Ammon Lucas Other [facility] Other Start: 11-02-2022 Telephone encounter Ammon Lucas [facility] Start: 11-01-2022 End: 11-02-[address] GARNETT LISTED REQUEST Facility:[facility] Start: 10-31-2022 End: 10-31-2022 ambulatory Ammon Lucas Other [facility] Other Start: 10-31-2022 Office outpatient vi sit 15 minutes Ammon Lucas [facility] Start: 08-14-2022 Gynecological examin ation normal Ammon Lucas Other [facility] Other Start: 08-14-2022 Pre-procedure evalua tion check Ammon Lucas Other [facility] Other Start: 08-13-2022 End: 08-14-2022 ambulatory Boogie Mina Facility:[facility] Start: 07-28-2022 End: 07-28-2022 ambulatory Aayka Joyner Other [facility] Other Start: 07-28-2022 Office outpatient vi sit 25 minutes Ayaka Joyner [facility] Start: 09-14-2021 End: 09-14-2021 ambulatory Manuela Aly Other [facility] Other Start: 09-14-2021 Office outpatient vi sit 15 minutes Manuela Sheeba [facility] Start: 07-29-2021 Office outpatient vi sit 15 minutes Manuela Sheeba [facility] Start: 05-21-2018 End: 05-21-2018 Patient encounter Joel Monroe Facility:[facility] Start: 05-19-2018 End: 05-20-2018 Patient encounter Joel Monroe Facility:[facility] Procedures Date Procedure Procedure Detail Performing Clinician Start: 09-30-2024 Mammography Keri LIN Work Phone: Start: 07-26-2024 Follow-up visit Follow-up CARA GODWIN [...] Comment: Speci men Type: BLOOD SPECIMENOrdering Facility: [facility] Address: [address] [place] [address] Performed By: #### T [id number] ####CC MAIN BLOOD BANKCLIA [id number] [place] [address] [place] Start: 12-25-2023 Urnls dip stick/tabl et rgnt auto w/o microscopy Bulk Order Provider Start: 12-22-2023 Urnls dip stick/tabl et rgnt auto w/o microscopy Bulk Order Provider Start: 11-12-2023 Creatinine blood Hoa Godwin MD Work Phone: Start: 11-12-2023 Ecg routine ecg w/le ast 12 lds trcg only w/o i&r Ibis Rodriguez MD Work Phone: Start: 09-29-[address] ack DO [...] 60 yrs+ (1 - 1-dose 75+ series) [facility] Start: 07-23-2028 Screening for malignant neoplasm of colon [facility] Start: 03-04-2027 Diabetes Screening Diabetes Screening [facility] Start: 02-18-2027 Diabetes Screening Diabetes Screening [facility] Start: 06-24-2026 Diabetes Screening Diabetes Screening [facility] Start: 09-30-2025 Screening for malignant neoplasm of breast Mammogram [facility] Start: 07-26-2025 Adult BMI Screening Adult BMI Screening [facility] Start: 07-26-2025 Tobacco Screening Tobacco Screening [facility] Start: 07-26-2025 End: 07-26-2025 Patient encounter procedure 07/26/2025 10:15 AM EDT Office Visit [facility] [address] [place] [address], [address] [place] [phone] [place] [address] [place] [address] [address] [place] [address] [facility] Start: 06-02-2025 End: 06-02-2025 Patient encounter procedure 06/02/2025 8:45 AM EDT [facility] [address] [place] [address] Tessa Steven DO [address] [place] [address] [facility] Start: 05-10-2025 Screening for malignant neoplasm of lung Lung Cancer Screening [facility] Start: 05-02-2025 End: 06-03-2025 CT Chest WO contrast CT chest wo IV contrast Imaging Routine Pulmonary nodule Expected: 05/02/2025, Expires: 06/03/2025 [facility] Work Phone: Comment on above: Expected: 05/02/2025, Expires: Start: 02-12-2025 Tobacco Screening Tobacco Screening [facility] Start: 02-09-2025 Adult BMI Screening Adult BMI Screening [facility] Start: 02-09-2025 Tobacco Screening Tobacco Screening [facility] Start: 01-31-2025 End: 01-31-2025 Patient encounter procedure 01/31/2025 9:45 AM EDT Appointment [facility] Physical Therapy [address] [place], [place] [phone] 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 PTA HAVE YELENA IN FOR 15 MINUTE UPOC [facility] Physical [facility] Comment on above: HAVE YELENA IN FOR 15 MINUTE UPOC Start: 01-24-2025 End: 01-24-2025 Patient encounter procedure 01/24/2025 9:00 AM EDT Appointment [facility] [address] [place], [place] [phone] 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 PTA [facility] Start: 01-17-2025 End: 01-17-2025 Patient encounter procedure 01/17/2025 9:00 AM EDT Appointment [facility] Physical [facility] [address] [place], [place] [phone] 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 PTA [facility] Start: 01-15-2025 Screening for malignant neoplasm of lung Lung Cancer Screening [facility] Start: 01-12-2025 End: 01-12-2025 Patient encounter procedure 01/12/2025 11:15 AM EDT Appointment [facility] [address] [place] [phone] 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 PTA [facility] Start: 01-10-2025 End: 01-10-2025 Patient encounter procedure 01/10/2025 9:00 AM EDT Appointment [facility] [address] [place] [address] 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 PTA [facility] Start: 01-03-2025 End: 01-03-2025 Patient encounter procedure 01/03/2025 9:45 AM EDT Appointment [facility] [address] [place] [address] 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 PTA [facility] Start: 12-20-2024 End: 12-20-2024 Patient encounter procedure 12/20/2024 9:45 AM EDT [facility]ment [facility] [address] [place] [address] 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 PTA [facility] Start: 12-13-2024 End: 12-13-2024 Patient encounter procedure 12/13/2024 9:45 AM EST Appointment [facility] Physical Therapy [address] [place] [address] 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, VIDEOTAPE OPERATOR [facility] Start: 12-08-2024 End: 12-08-2024 Patient encounter procedure 12/08/2024 4:00 PM EST Office Visit Gynecology [address] [place] [address] Augustina Vargas MD [address] [place] [address] [facility] Comment on above: [facility] Start: 12-06-2024 End: 12-06-2024 Patient encounter procedure [facility] Comment on above: Arrived Start: 12-02-2024 Adult BMI Screening Adult BMI Screening [facility] Start: 12-02-2024 Tobacco Screening Tobacco Screening [facility] Start: 11-29-2024 End: 11-29-2024 Patient encounter procedure 11/29/2024 3:45 PM EST Appointment [facility] Physical Therapy [address] [place] [phone] 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 PTA [facility] Start: 11-22-2024 End: 11-22-2024 Patient encounter procedure 11/22/2024 12:00 PM EST Appointment [facility] Physical Therapy [address] [place] [phone] 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 PTA [facility] Start: 11-12-2024 Adult BMI Screening Adult BMI Screening [facility] Start: 11-12-2024 Tobacco Screening Tobacco Screening [facility] Start: 10-13-2024 Advance Directive Discussion Advance Directive Discussion [facility] Start: 10-05-2024 End: 10-05-2024 Patient encounter procedure 10/05/2024 2:30 PM EST Office Visit Gynecology [address] [place] [address] Augustina Vargas MD [address] [place] [address] put her on my schedule oct 05, 2024 at 2:30pm for botox Gynecology Comment on above: put her on my schedule oct 05, 2024 at 2:30pm for botox Start: 09-30-2024 Adult BMI Screening Adult BMI Screening [facility] Start: 09-30-2024 Tobacco Screening Tobacco Screening [facility] Start: 09-29-2024 Screening for malignant neoplasm of breast Mammogram [facility] Start: 09-15-2024 End: 09-15-2024 Patient encounter procedure 09/15/2024 3:30 PM EST Appointment [facility] Physical Therapy [address] [place] [phone] 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 PTA [facility] Start: 09-08-2024 End: 09-08-2024 Patient encounter procedure 09/08/2024 3:30 PM EST Appointment [facility] Physical Therapy [address] [place] [phone] 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 PTA [facility] Start: 09-01-2024 End: 09-01-2024 Patient encounter procedure 09/01/2024 9:00 AM EST Appointment [facility] Physical Therapy [address] [place] [address] 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 PTA needs medicare recheck with yelena at this appt [facility] Physical Therapy Comment on above: needs medicare recheck with yelena at this appt Start: 08-27-2024 End: 08-27-2024 ambulatory 08/27/2024 10:30 AM EST [facility] [address] [address] Augustina Vargas MD [address] [place] [address] 3 MO F/U - TVST ok per Dr. Vargas Gynecology Comment on above: 3 MO F/U - TVST ok per Dr. Vargas Start: 08-27-2024 End: 08-27-2024 Patient encounter procedure 08/27/2024 10:30 AM EST Office Visit Gynecology [address] [place] [address] Augustina Vargas MD [address] [place] [address] 3 MO F/U - TVST ok per Dr. Vargas Gynecology Comment on above: 3 MO F/U - TVST ok per Dr. Vargas Start: 08-23-2024 End: 08-23-2024 Patient encounter procedure 08/23/2024 1:15 PM EST Appointment [facility] Physical Therapy [address] [place] [phone] 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 PTA needs medicare recheck with yelena at next appt [facility] Physical Therapy Comment on above: needs medicare recheck with yelena at next appt Start: 08-17-2024 End: 08-17-2024 ambulatory 08/17/2024 5:00 PM EST [facility] [address] [place] [address] Augustina Vargas MD [address] [place] [address] 6 WEEK FU Gynecology Comment on above: 6 WEEK FU Start: 08-09-2024 End: 08-09-2024 Patient encounter procedure 08/09/2024 10:45 AM EDT Appointment [facility] Physical Therapy [address] [place] [phone] 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 PTA [facility] Start: 07-26-2024 End: 07-26-2024 Patient encounter procedure 07/26/2024 10:15 AM EDT Office Visit [facility] [address] [place] [address], [address] [place] [address] [place] [address] [place] [address] [facility] Start: 07-20-2024 End: 07-20-2024 Patient encounter procedure 07/20/2024 10:45 AM EDT Office Visit [facility] [address] [place] [address], [address] [place] [address] [place] [address] [place] [address] [facility] Start: 07-06-2024 End: 07-06-2024 Patient encounter procedure 07/06/2024 10:30 AM EDT Office Visit Gynecology [address] [place] [address] Augustina Vargas MD [address] [place] [address] [facility] Comment on above: Botox Start: 06-28-2024 End: 06-28-2024 Patient encounter procedure 06/28/2024 1:30 PM EDT Appointment [facility] Physical Therapy [address] [place] [phone] 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 PTA [facility] Start: 06-24-2024 Screening for malignant neoplasm of lung Lung Cancer Screening [facility] Start: 06-21-2024 End: 06-21-2024 Patient encounter procedure 06/21/2024 9:30 AM EDT Appointment [facility] Physical Therapy [address] [place] [address] 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JOE [facility] Start: 06-15-2024 Annual Wellness Visit (Medicare) Annual Wellness Visit (Medicare) [facility] Start: 06-13-2024 COVID-19 Vaccine ( season) COVID-19 Vaccine ( season) [facility] Start: 06-13-2024 COVID-19 Vaccine () COVID-19 Vaccine ( season) [facility] Start: 06-13-2024 COVID-19 Vaccine ( season) COVID-19 Vaccine () [facility] Start: 06-13-2024 Covid-19 Vaccine ( season) Covid-19 Vaccine ( season) [facility] Start: 06-13-2024 Influenza vaccination [facility] Start: 05-27-2024 End: 05-27-2024 Patient encounter procedure Gynecology Comment on above: new cpp add on- follow up af ter [facility] appt Start: 05-13-2024 Influenza vaccination Flu vaccine (#1) [facility] Start: 05-10-2024 End: 05-10-2024 Patient encounter procedure 05/10/2024 10:00 AM EDT Appointment [facility] [address] [place] [address] [facility] Start: 04-26-2024 End: 04-26-2024 Patient encounter procedure Radiology Comment on above: 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 ORDER SCANNED POST R ENAL AUTOTRANSPLANTATION OTHER DISORDER OF KIDNEY Start: 04-22-2024 End: 04-22-2024 ambulatory 04/22/2024 3:00 PM EDT [facility] Urology [address] [address] Chip Carr MD [address] [facility] [place] [address] virtual/per staff message Urology Comment on above: virtual/per staff message Start: 03-02-2024 End: 03-02-2024 Admission to same day surgery center 03/02/2024 7:30 AM EDT - 03/02/2024 5:03 PM EDT Surgery Admitting [address] [place] [address] Chip Carr MD [address] [place] [address] 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 Admitting Comment on above: ROBOTIC SINGLE PORT LAPAROSCOPIC RENAL A UTOTRANSPLANTATION REIMPLANTATION OF KIDNEY Start: 03-02-2024 Subsequent hospital visit by physician 03/02/2024 7:30 AM EDT Hospital Encounter Admitting [address] [place] [address] Chip Carr MD [address] [place] [address] 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] Admitting [...] coagulation profile Expected: 02/25/2024 (Approximate), Expires: 05/26/2024 [facility] Comment on above: Expected: 02/25/2024 (Approximate), Expi res: 05/26/2024 Start: 02-25-2024 End: 05-26-2024 CBC W Auto Differential panel - Blood COMPLETE BLOOD COUNT AND DIFFERENTIAL Lab Routine Nutcracker phenomenon of renal vein Expected: 02/25/2024 (Approximate), Expires: 05/26/2024 [facility] Work Phone: Comment on above: Expected: 02/25/2024 (Approximate), Expi res: 05/26/2024 Start: 02-25-2024 End: 05-26-2024 Comprehensive metabolic 2000 panel - Serum or Plasma COMPREHENSIVE METABOLIC PANEL Lab Routine Nutcracker phenomenon of renal vein Expected: 02/25/2024 (Approximate), Expires: 05/26/2024 [facility] Comment on above: Expected: 02/25/2024 (Approximate), Expi res: 05/26/2024 Start: 02-25-2024 End: 05-26-2024 CONFIRM BLOOD TYPE CONFIRM BLOOD TYPE Blood Bank Routine Nutcracker phenomenon of renal vein Expected: 02/25/2024 (Approximate), Expires: 05/26/2024 [facility] Comment on above: Expected: 02/25/2024 (Approximate), Expi res: 05/26/2024 Start: 02-25-2024 End: 12-29-2024 ECG COMPLETE ECG COMPLETE ECG Routine Nutcracker phenomenon of renal vein Expected: 02/25/2024 (Approximate), Expires: 12/29/2024 [facility] Comment on above: Expected: 02/25/2024 (Approximate), Expi res: 12/29/2024 Start: 02-25-2024 End: 05-26-2024 PT panel - Platelet poor plasma by Coagulation assay PROTHROMBIN TIME Lab Routine Nutcracker phenomenon of renal vein Expected: 02/25/2024 (Approximate), Expires: 05/26/2024 [facility] Comment on above: Expected: 02/25/2024 (Approximate), Expi res: 05/26/2024 Start: 02-25-2024 End: 05-26-2024 TYPE AND SCREEN,30 DAY TYPE AND SCREEN,30 DAY Blood Bank Routine Nutcracker phenomenon of renal vein Expected: 02/25/2024 (Approximate), Expires: 05/26/2024 [facility] Comment on above: Expected: 02/25/2024 (Approximate), Expi res: 05/26/2024 Start: 02-19-2024 End: 02-19-2024 ambulatory 02/19/2024 2:30 PM EDT Results Only Cardiology [address] [address] PRE OP ELTEMAMY ~ 03/02 Cardiology Comment on above: PRE OP ELTEMAMY ~ 03/02 Start: 02-19-2024 End: 02-19-2024 Patient encounter procedure Admitting Comment on above: PRE OP ELTEMAMY ~ 03/02 Start: 02-19-2024 End: 02-19-2024 Anesthesia consultation 02/19/2024 1:20 PM EDT PAT Pre Anesthesia [address] [address] [place] [address] PRE OP ELTEMAMY ~ 03/02 Pre Anesthesia Comment on above: PRE OP ELTEMAMY ~ 03/02 Start: 02-10-2024 End: 02-10-2024 Patient encounter procedure 02/10/2024 9:45 AM EDT Office Visit [facility] - [facility]NT [address] [place] [address], [address] [place] [phone] Sarah Godwin MD [address] [place] [address] [address] [place] [address] [facility] Start: 12-19-2023 End: 03-19-2024 Basic metabolic 2000 panel - Serum or Plasma BASIC METABOLIC PNL Lab Routine Nutcracker phenomenon of renal vein Preop testing Expected: 12/19/2023 (Approximate), Expires: 03/19/2024 [facility] Work Phone: Comment on above: Expected: 12/19/2023 (Approximate), Expi res: 03/19/2024 Start: 12-19-2023 End: 03-19-2024 CBC W Auto Differential panel - Blood CBC + DIFF Lab Routine Nutcracker phenomenon of renal vein Preop testing Expected: 12/19/2023 (Approximate), Expires: 03/19/2024 [facility] Work Phone: Comment on above: Expected: 12/19/2023 (Approximate), Expi res: 03/19/2024 Start: 12-19-2023 End: 03-19-2024 CONFIRM BLOOD TYPE CONFIRM BLOOD TYPE Blood Bank Routine Nutcracker phenomenon of renal vein Preop testing Expected: 12/19/2023 (Approximate), Expires: 03/19/2024 [facility] Work Phone: Comment on above: Expected: 12/19/2023 (Approximate), Expi res: 03/19/2024 Start: 12-19-2023 End: 03-19-2024 PT panel - Platelet poor plasma by Coagulation assay PROTHROMBIN TIME/PT Lab Routine Nutcracker phenomenon of renal vein Preop testing Expected: 12/19/2023 (Approximate), Expires: 03/19/2024 [facility] Work Phone: Comment on above: Expected: 12/19/2023 (Approximate), Expi res: 03/19/2024 Start: 12-19-2023 End: 03-19-2024 STAPH AUREUS PCR STAPH AUREUS PCR Lab Routine Nutcracker phenomenon of renal vein Preop testing Expected: 12/19/2023, Expires: 03/19/2024 [facility] Work Phone: Comment on above: Expected: 12/19/2023, Expires: Start: 12-19-2023 End: 03-19-2024 TYPE AND SCREEN,30 DAY TYPE AND SCREEN,30 DAY Blood Bank Routine Nutcracker phenomenon of renal vein Preop testing Expected: 12/19/2023 (Approximate), Expires: 03/19/2024 [facility] Work Phone: Comment on above: Expected: 12/19/2023 (Approximate), Expi res: 03/19/2024 Start: 12-02-2023 End: 12-02-2023 Patient encounter procedure 12/02/2023 12:45 PM EST Office Visit [facility] - [facility] [address] [facility], [address] [place] [address] Alex Ramirez PA-C [address] [facility] [address] [place] [address] [facility] Start: 11-24-2023 End: 11-24-2023 Admission to same day surgery center 11/24/2023 12:15 PM EST - 11/24/2023 2:15 PM EST Surgery [facility] Surgery [address] [place] [phone] Sarah Godwin MD [address] [facility] [address] [place] [address] SIALENDOSCOPY RIGHT SUBMANDIBULAR DUCT [57915 (CPT )] [facility] Comment on above: SIALENDOSCOPY RIGHT SUBMANDIBULAR DUCT [ 72730 (CPT )] Start: 11-24-2023 Subsequent hospital visit by physician 11/24/2023 12:15 PM EST Hospital Encounter [facility] Surgery [address] [place] [phone] Sarah Godwin MD [address] [facility] [address] [place] [address] [facility] Surgery Start: 11-24-2023 End: 11-24-2023 Unlisted px salivary glands/ducts SIALENDOSCOPY Submandibular gland swelling Chronic sialoadenitis 11/24/2023 12:15 PM EST [facility] Start: 10-13-2023 Advance Directive Discussion Advance Directive Discussion [facility] Start: 10-13-2023 Behavioral Health Screening Behavioral Health Screening [facility] Start: 10-13-2023 Depression Assessment Depression Assessment [facility] Start: 06-13-2023 Covid-19 Vaccine ( season) Covid-19 Vaccine ( season) [facility] Start: 06-13-2023 Influenza vaccination [facility] Start: 2022 Fall Risk Screening Fall Risk Screening [facility] Start: 2022 Pneumococcal 65+ years Vaccine (2 of 2 - PCV) Pneumococcal 65+ years Vaccine (2 of 2 - PCV) [facility] Start: 2022 Pneumococcal Vaccine: 65+ (1 of 1 - PCV) Pneumococcal Vaccine: 65+ (1 of 1 - PCV) [facility] Start: 2022 Pneumococcal Vaccine: 65+ (2 of 2 - PCV) Pneumococcal Vaccine: 65+ (2 of 2 - PCV) [facility] Start: 2022 Pneumococcal Vaccine: 65+ Years (2 of 2 - PCV) Pneumococcal Vaccine: 65+ Years (2 of 2 - PCV) [facility] Start: 2022 Screening for osteoporosis Bone Density Screening [facility] Start: 06-30-2021 Pneumococcal 50+ years Vaccine (2 of 2 - PCV) Pneumococcal 50+ years Vaccine (2 of 2 - PCV) [facility] Start: 06-30-2021 Pneumococcal Vaccine: 50+ (2 of 2 - PCV) Pneumococcal Vaccine: 50+ (2 of 2 - PCV) [facility] Start: 06-30-2021 Pneumococcal Vaccine: 65+ (2 of 2 - PCV) Pneumococcal Vaccine: 65+ (2 of 2 - PCV) [facility] Start: 2017 Respiratory Syncytial Virus (RSV) or age 60 yrs+ (1 - 1-dose 60+ series) Respiratory Syncytial Virus (RSV) or age 60 yrs+ (1 - 1-dose 60+ series) [facility] Start: 2017 RSV Vaccine (1 - 1-dose 60+ series) RSV Vaccine (1 - 1-dose 60+ series) [facility] Start: 2017 RSV Vaccine (1 - Risk 60-74 years 1-dose series) RSV Vaccine (1 - Risk 60-74 years 1-dose series) [facility] Start: 2012 Screening for osteoporosis DEXA (modify frequency per FRAX score) [facility] Start: 2007 Shingrix Vaccine (1 of 2) Shingrix Vaccine (1 of 2) [facility] Start: 2002 Lipid panel Lipid Screening [facility] Start: 2002 Screening for malignant neoplasm of colon [facility] Start: 1997 Lipid panel Lipids [facility] Start: 1997 Screening for malignant neoplasm of breast [facility] Start: 1976 DTaP,Tdap and Td Vaccines (1 - Tdap) DTaP,Tdap and Td Vaccines (1 - Tdap) [facility] Start: 1976 DTaP/Tdap/Td vaccine (1 - Tdap) DTaP/Tdap/Td vaccine (1 - Tdap) [facility] Start: 1976 Urine microalbumin profile DTaP,Tdap,Td Vaccine (1 - Tdap) [facility] Start: 1975 Anxiety Screening Anxiety Screening [facility] Start: 1975 Depression Screening Depression Screening [facility] Start: 1975 Hepatitis C screening [facility] Start: 1969 Depression Screen Depression Screen [facility] Start: 1969 Depression Screening Depression Screening [facility] Start: 1968 Screening for malignant neoplasm of cervix Cervical Cancer Screening [facility] Start: 03-04-1958 Covid-19 Vaccine (#1) Covid-19 Vaccine (#1) [facility] Start: 1957 Medicare Annual Wellness Visit Medicare Annual Wellness Visit [facility] Start: 1957 Screening for malignant neoplasm of colon [facility] CYSTOSCOPY WHI CYSTOSCOPY [facility]I P rocedures Routine High-tone pelvic floor dysfunction 1 Occurrences starting 08/18/2024 [facility] Work Phone: Comment on above: 1 Occurrences starting 08/18/2024 End: 12-18-2024 ECG COMPLETE ECG COMPLETE ECG Routine Nutcracker phenomenon of renal vein Preop testing 1 Occurrences starting 12/19/2023 until 12/18/2024 [facility] Work Phone: Comment on above: 1 Occurrences starting 12/19/2023 until 12/18/2024 Injection single/core stripper trigger point 1/2 muscles TRIGGER POINT INJECTION MULTI 1-2 MUSCLE GR Procedures Routine Myalgia Ordered: 07/06/2024 [facility] Work Phone: Comment on above: Ordered: 07/06/2024 End: 07-02-2025 Lipid panel Lipid panel Lab Routine Hyperlipidemia, unspecified hyperlipidemia type 1 Occurrences starting 07/02/2024 until 07/02/2025 [facility] Work Phone: Comment on above: 1 Occurrences starting 07/02/2024 until 07/02/2025 URINALYSIS, REFLEX MICROSCOPIC URINALYSIS, REFLEX MICROSCOPIC Lab Routine Screening for genitourinary condition Ordered: 05/27/2024 [facility] Work Phone: Comment on above: Ordered: 05/27/2024 End: 12-11-2024 US Renal artery US RENAL ARTERY [facility] Vascular Lab Routine Nutcracker phenomenon of renal vein 1 Occurrences starting 12/12/2023 until 12/11/2024 [facility] Work Phone: Comment on above: 1 Occurrences starting 12/12/2023 until 12/11/2024 End: 12-16-2024 US Vein - bilateral US VENOUS INCOMPETENCY [facility] V[facility] Lab Routine Nutcracker phenomenon of renal vein 1 Occurrences starting 12/17/2023 until 12/16/2024 [facility] Work Phone: Comment on above: 1 Occurrences starting 12/17/2023 until 12/16/2024 End: 12-16-2024 US.doppler Renal vessels - bilateral US RENAL VENOUS [facility] Vascular Lab Routine Nutcracker phenomenon of renal vein 1 Occurrences starting 12/17/2023 until 12/16/2024 [facility] Work Phone: Comment on above: 1 Occurrences starting 12/17/2023 until 12/16/2024 [facility] Immunizations Immunization Date Immunization Notes Care Provider Fa cili 07-20-2021 influenza virus vaccine, split virus (incl. purified surface antigen) Ammon Lucas Other [facility] Other 07-20-2021 influenza, injectabl e, quadrivalent, preservative free Tessa Steven DO Work Phone: [facility] 07-20-2021 influenza virus vaccine, unspecified formulation No Pcp [employer] [facility] 09-13-2020 zoster vaccine recombinant Tessa Tenisha DO Work Phone: [facility] 07-14-2020 influenza, injectabl e, quadrivalent, preservative free Tessa Tenisha DO Work Phone: [facility] 07-07-2020 zoster vaccine recombinant Tessa Tenisha DO Work Phone: [facility] 06-30-2020 pneumococcal polysaccharide vaccine, 23 valent Tessa Tenisha DO Work Phone: [facility] 08-11-2019 influenza virus vaccine, split virus (incl. purified surface antigen) Ammon Lance Other [facility] Other 08-11-2019 influenza, injectabl e, quadrivalent, preservative free Tessa Tenisha DO Work Phone: [facility] 08-19-2018 influenza, injectabl e, quadrivalent, preservative free Tessa Tenisha DO Work Phone: [facility] Healthcare Payers Date Payer Category Payer Unknown AARP AARP [id number] 2023-Present [address] [place] [address] [id number] 2023 Managed Care Other (unspecified) [facility] [id number] 2023 Unknown [id number] 2.16.840.1.128023.19 2022 Medicare [id number] 2018 Private Health Insurance 1959 Medicare [id number] [id number] 1959 Private Health Insurance [id number] 1959 Self-pay 1957 Unknown [id number] 2.16.840.1.270320.3.579.2 .593 1957 Unknown [id number] 2.16.840.1.519546.3.579.2 .593 1957 Unknown [id number] 2.16.840.1.114992.3.579.2 .593 1957 Unknown [id number] 2.16.840.1.470240.3.579.2 .593 1957 Unknown [id number] 2.16.840.1.073447.3.579.2 .1286 1957 Unknown [id number] 2.16.840.1.746001.3.579.2 .1286 1957 Unknown [id number] 2.16.840.1.426303.3.579.2 .1286 1957 Unknown [id number] 2.16.840.1.891764.3.579.2 .1259 1957 Unknown [id number] 2.16.840.1.292060.3.579.2 .1259 1957 Unknown [id number] 2.16.840.1.026322.3.579.2 .1259 1957 Unknown [id number] 2.16.840.1.161305.3.579.2 .1286 1957 Unknown [id number] 2.16.840.1.622237.3.579.2 .1286 1957 Unknown [id number] 2.16.840.1.230992.3.579.2 .1286 1957 Unknown [id number] 2.16.840.1.008826.3.579.2 .1286 1957 Unknown [id number] 2.16.840.1.457947.3.579.2 .1286 1957 Unknown [id number] 2.16.840.1.737887.3.579.2 .1286 1957 Unknown [id number] 2.16.840.1.715142.3.579.2 .1286 1957 Unknown [id number] 2.16.840.1.065655.3.579.2 .1286 1957 Unknown [id number] 2.16.840.1.535321.3.579.2 .173 1957 Unknown [id number] 2.16.840.1.832085.3.579.2 .173 1957 Unknown [id number] 2.16.840.1.519818.3.579.2 .173 1957 Unknown [id number] 2.16.840.1.744176.3.579.2 .173 1957 Unknown [id number] 2.16.840.1.852491.3.579.2 .173 1957 Unknown [id number] 2.16.840.1.198669.3.579.2 .173 1957 Unknown [id number] 2.16.840.1.400332.3.579.2 .173 1957 Unknown [id number] 2.16.840.1.663900.3.579.2 .173 1957 Unknown [id number] 2.16.840.1.153437.3.579.2 .173 1957 Unknown [id number] 2.16.840.1.890961.3.579.2 .173 1957 Unknown [id number] 2.16.840.1.188950.3.579.2 .173 1957 Unknown [id number] 2.16.840.1.766543.3.579.2 .173 1957 Unknown [id number] 2.16.840.1.290428.3.579.2 .173 1957 Unknown [id number] 2.16.840.1.621073.3.579.2 .173 1957 Unknown [id number] 2.16.840.1.362807.3.579.2 .173 1957 Unknown [id number] 2.16.840.1.369429.3.579.2 .173 1957 Unknown [id number] 2.16.840.1.661242.3.579.2 .173 1957 Unknown [id number] 2.16.840.1.484634.3.579.2 .173 Unknown [id number] 2.16.840.1.000020.3.579.2 .593 Social History Date Type Detail Facility Start: 11-05-2023 End: 06-03-2024 Sex Assigned At [facility] Tobacco smoking status [facility] Tobacco smoking consumption unknown [facility] Start: 1955 Sex Assigned At Not on file C [facility] Start: 11-05-2023 End: 06-03-2024 Tobacco smoking status NHIS Ex-smoker [facility] Start: 02-07-1970 End: 10-13-2010 History of tobacco use Current smoker [facility] Start: 02-07-1970 End: 10-13-2010 History of tobacco use Cigarette Smoker [facility] Start: 11-05-2023 End: 06-03-2024 Cigarettes smoked current (pack per day) - Reported 1 [facility] Start: 11-05-2023 End: 06-03-2024 Tobacco use and exposure Smokeless tobacco non-user [facility] Start: 11-05-2023 End: 07-06-2024 Alcohol intake Ex-drinker (finding) [facility] National Score (1-100), lower number is lower risk 64 [facility] History of tobacco use Passive smoker [facility] Start: 06-02-2024 End: 06-03-2024 Alcoholic beverage intake Lifetime non-drinker (finding) [facility] Start: 12-02-2023 Alcohol Comment caffeine intak e: 2-3 cups per day [facility] Start: 09-30-2023 End: 07-26-2024 Alcohol intake Current drinker of alcohol (finding) [facility] Start: 07-17-2023 Alcohol Comment 2 per month [facility] Start: 05-18-2015 Sex Female (finding) [facility] NEGATED: Highlighted rowStart: NINF History of tobacco use Passive smoker [facility] Medical Equipment Procedure Code Equipment Code Equipment Origin al Text Equipment Identifier Dates Stent Inlay 4.7f r 2 Pigtail Curve Taper Blue Hydrophilic 14cm Ureteral - [id number] Start: 03-02-2024 Clinical Notes 07-29-2021 to 11-01-2024 Telephone Encounter - Kira Alvarez RN - 11/01/2024 3:59 PM ESTTelephone Encounter - Kira Alvarez RN - 11/01/2024 3:59 PM ESTAddendum Note - Alysha Torres RN - 09/21/2024 2:45 PM EST Note Date & Type Note Facility 11-01-2024 Telephone encounter Note Order faxed with transmission receipt. Kira Alvarez RN November 01, 2024 3:59 PM [facility] 11-01-2024 Miscellaneous Notes Order faxed with transmission receipt. Kira Alvarez RN November 01, 2024 3:59 PM Patient cleared by ortho to resume PFPT. Patient requesting new order placed and faxed to number below: documented in this encounter [facility] 11-01-2024 Telephone encounter Note Patient cleared by ortho to resume PFPT. Patient requesting new order placed and faxed to number below: [facility] 09-21-2024 Note Addended by: ALYSHA MEIER on: 09/21/2024 02:45 PM Modules accepted: Orders [facility] 09-21-2024 Miscellaneous Notes Addended by: ALYSHA TORRES on: 09/21/2024 02:45 PM Modules accepted: Orders [facility] 08/17/2024 Assessment: Encounter Diagnosis ICD-10-CM 1. High-tone [...] insure Dr was aware of current situation. documented in this encounter [facility] 09-21-2024 Telephone encounter Note [facility] 08/17/2024 Assessment: Encounter Diagnosis ICD-10-CM 1. High-tone pelvic floor dysfunction M62.89 cyclobenzaprine (FLEXERIL) 5 mg tablet onabotulinum toxin type A 100 Units injection (BOTOX) Plan: 1) fu botox and abd TPI 10/05/24 2) continue flexeril vaginally Total Time Spent: 5-10 minutes Augustina Vargas MD [facility] 09-21-2024 Telephone encounter Note Pt fyi - broke pelvis in four places about 3 weeks ago. Had to cancel all future PT appts and will need new order for end of of November/beginning of December. Also had to reschedule TPI to end november. Pt concerned and wanted to insure Dr was aware of current situation. [facility] 09-01-2024 Telephone encounter Note Refill(s) request: Requested Prescriptions Pending Prescriptions Disp Refills cyclobenzaprine (FLEXERIL) 5 mg tablet [Pharmacy Med Name: cyclobenzaprine 5 mg tablet] 90 tablet 4 Sig: take1 tablet BY MOUTH at bedtime as needed Called patient. Left voice message and notified there is a valid prescription waiting for her to bead picker at the pharmacy on file. Request [...] Center 10/05/2024 2:30 PM [facility] Appointment scheduled: As listed above Action taken: Refill already approved by provider. Danae Colindres RN September 01, 2024 12:05 PM [facility] 09-01-2024 Miscellaneous Notes Refill(s) request: Requested Prescriptions Pending Prescriptions Disp Refills cyclobenzaprine (FLEXERIL) 5 mg tablet [Pharmacy Med Name: cyclobenzaprine 5 mg tablet] 90 tablet 4 Sig: take1 tablet BY MOUTH at bedtime as needed Called patient. Left voice message and notified there is a valid prescription waiting for her to bead picker at the pharmacy on file. Request [...] Center 10/05/2024 2:30 PM Augustina Vargas MD [facility] Appointment scheduled: As listed above Action taken: Refill already approved by provider. Danae Colindres RN September 01, 2024 12:05 PM documented in this encounter [facility] 08-23-2024 Telephone encounter Note Called Guille Kaur to clarify that prescription is for Flexeril 5 mg tablets and to use 1 tablet at bedtime vaginally. Morenita Lopez RN [facility] 08-23-2024 Miscellaneous Notes Called Guille Kaur to clarify that prescription is for Flexeril 5 mg tablets and to use 1 tablet at bedtime vaginally. Morenita Lopez RN Received call from pharmacy asking for clarification of directions for: cyclobenzaprine (FLEXERIL) 5 mg tablet States that direction says to use vaginally but prescription is for oral tablet Please advise: [id number] - [place] [id number] - [address] - [phone] documented in this encounter [facility] 08-23-2024 Telephone encounter Note Received call from pharmacy asking for clarification of directions for: cyclobenzaprine (FLEXERIL) 5 mg tablet States that direction says to use vaginally but prescription is for oral tablet Please advise: [id number] - [place] [id number] - [address] - [phone] [facility] 08-19-2024 Telephone encounter Note Done Martinez Chang [facility] Work Phone: 08-19-2024 Miscellaneous Notes Done Martinez Chang Done Encounter Diagnosis ICD-10-CM 1. High-tone pelvic floor dysfunction M62.89 CYSTOSCOPY [facility]I Please put her on my schedule oct 05, 2024 at 2:30pm for botox, which is approved already Patient aware documented in this encounter [facility] 08-18-2024 Telephone encounter Note Done Encounter Diagnosis ICD-10-CM 1. High-tone pelvic floor dysfunction M62.89 CYSTOSCOPY WHI [facility] 08-17-2024 Note HNO ID: [id number] Author: AUGUSTINA VARGAS MD Service: ? Author [...] Services (GI, urology, pain psych,PFPT) 1. PFPT [facility] 08-17-2024 History of Present illness Narrative CHRONIC [...] psych,PFPT) 1. 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 Osteoporosis Pelvic congestion syndrome Peripheral vascular disease (CMS-HCC) Seasonal allergies Submandibular gland swelling 11/12/2023 Visual impairment glasses Past Surgical History: Procedure Laterality Date CATARACT EXTRACTION Bilateral 2017 CHOLECYSTECTOMY COLONOSCOPY COLONOSCOPY N/A 07/23/2018 Performed by Frank Christine DO at [facility] DENTAL SURGERY 07/2013 implants Diagnostic cerebral angiogram N/A 03/31/2020 Performed by Melissa Morillo MD at [facility] CATH LABS DIAGNOSTIC VENOGRAM OF IVC AND ILEOCABLE, LEFT RENAL VEIN, SELECTIVE LEFT OVARIAN VEIN CONTRAST AND IVUS VENOGRAMS N/A 07/25/2023 Performed by Erendira Armijo DO at [facility] SPECIAL PROC dilation rt submandibular duct and steroid irrigation Right 11/24/2023 Performed by Sarah Godwin MD at [facility] KIDNEY STONE SURGERY 2018? KNEE CARTILAGE SURGERY MOLE REMOVAL 11/10/2023 right breast NEPHRECTOMY TRANSPLANTED ORGAN 03/02/2024 OTHER SURGICAL HISTORY 08/31/2020 cranial base ( cranial styloidectomy) 05/2020 also OTHER SURGICAL HISTORY 06/18/2023 venogram OTHER SURGICAL HISTORY 09/09/2023 DIagnostic venogram TUBAL LIGATION Vascular Invasive Diagnostic venogram with IVUS and the ability to measure pressure gradients Bilateral 06/18/2023 Performed by Erendira Armijo DO at [facility] CARDIAC CATH LABS Family History Problem Relation [...] or concerns: . Non-emergent messages received through [employer] may take up to 2 business days [...] this chart were generated using voice recognition [employer] ([employer]) dictation software. Although every effort was made to ensure the accuracy of this automated fine craft artist, some errors in fine craft artist may have occurred. Yovana Veloz CNA 07/26/24 1024 [facility] 07-26-2024 Instructions Neda Stevens - 07/26/2024 10:15 [...] or concerns: . Non-emergent messages received through [employer] may take up to 2 business days for a response. documented in this encounter [facility] 07-06-2024 Augustina Lawrence MD - 07/06/2024 11:13 [...] urinary incontinence (4.8%). documented in this encounter [facility] 07-06-2024 History of Present illness Narrative Images from the original note were not included. [facility] SECTION FOR CHRONIC PELVIC PAIN OUTPATIENT VISIT [...] PHYSICAL THERAPY You can search for others [email or web address], enter zip or city You can click [...] Patient tolerated procedure well. OnabotulinumtoxinA: office provided LOT:[id number] EXP: 08/2026 PROCEDURE ABDOMINAL TRIGGER POINT INJECTIONS [...] 0.25% Bupivacaine 10 ML --- lot # [id number] EXP: 05/2026 documented in this encounter [facility] 07-06-2024 Note HNO ID: [id number] Author: AUGUSTINA VARGAS MD Service: ? Author Type: Physician Type: Progress Notes Filed: 07/06/2024 11:47 Note Text: [facility] SECTION FOR CHRONIC PELVIC PAIN OUTPATIENT VISIT [...] PHYSICAL THERAPY You can search for others [email or web address], enter zip or city You can click [...] plan. [facility] (more content not included)... [facility] 06-07-2024 Telephone encounter Note Called pt; verified name/. Advised pt to use Flexeril vaginally, inserting as far as it will go at bedtime. Advised pt that it may cause drowsiness, but to a lesser degree when inserted vaginally vs. orally. Pt verbalized understanding and had no further questions. Kira Alvarez RN June 07, 2024 10:25 AM [facility] 06-07-2024 Miscellaneous Notes Called pt; verified [...] grogginess but more so if used orally [facility] 05/27/2024 Notes not yet complete Alysha Torres RN Instructions See pelvic floor PHYSICAL THERAPY You can search for others [email or web address], enter zip or city You can click [...] 2024 10:38 AM documented in this encounter [facility] 06-07-2024 Telephone encounter Note Keara Chang [facility] Work Phone: 06-07-2024 Miscellaneous Notes Done Martinez Chang Botox is approved; can she start PFPT if she desires and then do botox or do botox in office first available appointment documented in this encounter [facility] 06-06-2024 Telephone encounter Note Botox is approved; can she start PFPT if she desires and then do botox or do botox in office first available appointment [facility] 06-06-2024 Telephone encounter Note Tell her fleexeril, I like to try it vaginally first (less side effects ) and use at night. 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 02/19/2024 Last Assessment & Plan: Sp [...] Tessa Steven DO documented in this encounter [facility] 05-28-2024 Telephone encounter Note NICK 05/27/2024 Notes not yet complete Alysha Torres RN Instructions See pelvic floor PHYSICAL THERAPY You can search for others [employer], enter zip or city You can click on names for the bios if they have them Use flexeril vaginally at night We can see if botox vaginally is covered by the insurance F/u 3 month virtually You have tight pelvic floor muscles PATIENT INFORMATION ON PELVIC FLOOR DYSFUNCTION: Myofascial pain( also known as Pelvic floor dysfunction, high tone pelvic floor,pelvic floor tightness) [facility] 05-28-2024 Miscellaneous Notes NICK 05/27/2024 Notes not yet complete Alysha Torres RN Instructions See pelvic floor PHYSICAL THERAPY You can search for others [employer], enter zip or city You can click [...] visit in this department: 08/27/2024 08/27/2024 in [facility] with AUGUSTINA VARGAS 3 MO F/U - TVST ok per Dr. Alicia PLS CALL HOME PHONE PT is unable to do VV documented in this encounter [facility] 05-28-2024 Telephone encounter Note Reason for [...] visit in this department: 08/27/2024 08/27/2024 in [facility] with AUGUSTINA VARGAS 3 MO F/U - TVST ok per Dr. Alicia PLS CALL HOME PHONE PT is unable to do VV [facility] Work Phone: 05-27-2024 History of Present [...] - 1.4 mg/dL Final IMAGING: CT abdomen/pelvis (7/19/24): 1. 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 Author [...] (FLONASE) 50 mcg/actuation nasal spray Use 1 [place] in the nose as needed for cold/allergy [...] SURGICAL HISTORY OF; Right Comment: styloidectomy for shoalwater syndrome No date: PAST SURGICAL HISTORY OF [...] -Follow up as needed Chip Carr MD [facility] 05-27-2024 Instructions Augustina Vargas MD - 05/27/2024 [...] messages will go to the RN or pig sticker first to be addressed. If questions are urgent, please call [phone] and press nurse prompt. For urgent Questions: call my secretary receptionist with questions, appts related to chronic pelvic pain, Martinez Chowdary ,fax [phone] For refills, I prefer these be sent through [facility] We also have a nurse coordinatorZaynab Francis RN My schedule: I see patients in office Friday/Friday/ and Fridays: virtual visits only documented in this encounter [facility] 05-27-2024 Note HNO ID: [id number] Author: AUGUSTINA VARGAS MD Service: ? Author Type: Physician Type: Progress Notes Filed: 06/06/2024 23:06 Note Text: [facility] SECTION FOR CHRONIC PELVIC PAIN OUTPATIENT VISIT DATE 05/27/2024 OUTPATIENT VISIT TYPE CONSULT REFERRING PROVIDER: No ref. provider found PRIMARY CARE PROVIDER: Ammon Lucas MD PRIMARY CHAPERONE: Consultation requested by referring provider above for [...] pain. 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 and She had [...] possibly saw a varicose vein; then saw STEM CRUSHER dr marino ; told possibly PCS, then vascular surgeon in [place], ultrasound orders in 3 venograms done , [...] is the same She makes herself eat [place] syndrome-styloid surgery She cannot travel She is fully retired Pain is there AND wakes her Pain in left anterior thigh, No PFPT Distribution Operations Supervisor Hx: (page 3) Menarche: 14 Currently experiences: Not menstruating Duration of dysmenorrhea symptoms: none Currently missing school/work: No Prior dysmenorrhea treatment: None Current control: Nothing History of STD: Negative history MA intake LMP: No LMP recorded (lmp unknown). Patient is postmenopausal. Cycles: Menopausal Last pap: Pap Results: WNL/neg HPV 03/2023 History of abnormal pap: No Lafferty: (MA intake) Dyspareunia: both insertional and deep [...] endorses Pain changes with bowel movements: endorses. Hersey scale: dnc Pudendal symptoms: (page 13) Pain [...] adult: None Curr (more content not included)... [facility] 05-27-2024 History of Present illness Narrative Images from the original note were not included. [facility] SECTION FOR CHRONIC PELVIC PAIN OUTPATIENT VISIT DATE 05/27/2024 OUTPATIENT VISIT TYPE CONSULT REFERRING PROVIDER: No ref. provider found PRIMARY CARE PROVIDER: Ammon Lucas MD PRIMARY CHAPERONE: Consultation requested by referring provider above for [...] pain. 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 Patient is postmenopausal. Cycles: Menopausal Last pap: Pap Results: WNL/neg HPV 03/2023 History of abnormal pap: No Lafferty: (MA intake) Dyspareunia: both insertional and deep [...] endorses Pain changes with bowel movements: endorses. Hersey scale: dnc Pudendal symptoms: (page 13) Pain [...] SURGICAL HISTORY OF; Right Comment: styloidectomy for shoalwater syndrome No date: PAST SURGICAL HISTORY OF Comment: R knee menisus repair No date: PAST SURGICAL HISTORY OF Comment: falloption tube tied 11/24/2023: PAST SURGICAL HISTORY OF Comment: right submandibular duct dilation with steroid irrigation No date: REMOVAL GALLBLADDER; N/A Comment: 1980s Distribution Operations Supervisor history: see HPI FAMILY HISTORY Problem Relation [...] (FLONASE) 50 mcg/actuation nasal spray Use 1 [place] in the nose as needed for cold/allergy [...] no lesions, non-tender Speculum exam: Deferred Vagina: [place], moist, well-rugated vagina without lesions. non-tender Cervix: [...] obtained in 12 months --END OF FINDING-- Physician Support Coordinator: TRINI Transcribe Date/Time: Apr 30 2024 12:52P [...] pain psych,PFPT) 1. documented in this encounter [facility] 05-27-2024 Note Patient Outreach (UR OLMN) ZAYNAB ZAIDI ([id number]) 1955 F Date Time Provider Department 05/27/24 [...] for genitourinary condition [Z13.89] Order(s):URINALYSIS, REFLEX MICROSCOPIC [[id number]] Order #: [id number] URINALYSIS, REFLEX MICROSCOPIC [[id number]] Order #: [id number]. 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 Author Type: Technologist [...] PATIENT PRESENTS WITH AN IMPLANTABLE OR ATTACHED CONTRACT ADMIN: No RADIOLOGY DEPARTMENT: CT; Exam(s) Completed: Abdomen/Pelvis PERIPHERAL IV DATA: Site assessment: Clean,Dry and Intact, Site disposition Discontinued SIGNED BY: TECHNOLOGIST Yunier April 26, 2024 2:30 PM [facility] 04-26-2024 Nurse Note Radiology Service Progress [...] DATE: April 26, 2024 TIME: 1:22 PM [facility] 04-26-2024 Nurse Note Radiology Service Progress [...] TIME: 1:22 PM documented in this encounter [facility] 04-21-2024 Telephone encounter Note Called pt to discuss her postop questions. Discussed no restrictions on activity, swimming, driving, etc. Still having some pain in pelvis but flank pain and other symptoms have improved. Inquiring about f/up -- had stent removed on 04/07. Will set up 3 jorge post op f/up. She is seeing gynecology at [facility] on 05/27, will try to coordinate appt w/ Dr. Carr on that day. Jesús Borrero MD [facility] Work Phone: 04-21-2024 Miscellaneous Notes Called pt to discuss her postop questions. Discussed no restrictions on activity, swimming, driving, etc. Still having some pain in pelvis but flank pain and other symptoms have improved. Inquiring about f/up -- had stent removed on 04/07. Will set up 3 jorge post op f/up. She is seeing gynecology at [facility] on 05/27, will try to coordinate appt w/ Dr. Carr on that day. Jesús Borrreo MD documented in this encounter [facility] 04-10-2024 Note HNO ID: [id number] Author: ALLEN HERRERA MD Service: ? Author [...] follow up as scheduled Allen Herrera MD [facility] 04-10-2024 Procedure note Zaynab Zaidi is a [...] follow up as scheduled Allen Herrera MD [facility] 04-10-2024 Procedure note Zaynab Zaidi is [...] Allen Herrera MD documented in this encounter [facility] 04-07-2024 Note HNO ID: [id number] Author: IGLESIA LOVE RN Service: ? Author [...] Visit completed when applicable. Iglesia Love RN [facility] 04-07-2024 History of Present illness Narrative UNIVERSAL [...] Iglesia Love RN documented in this encounter [facility] 04-07-2024 Nurse Note The procedure started [...] had the pain?) unknown Iglesia Love RN [facility] 04-07-2024 Nurse Note The procedure started [...] provider: Yes Patient was roomed in: Q9- Bilingual Account Manager offered:Patient declines Patient arrived in the room [...] for procedure details. documented in this encounter [facility] 04-07-2024 Nurse Note Actual procedure/procedure scheduled: Yes Performing provider/scheduled provider: Yes Patient was roomed in: Q9- 06 Bilingual Account Manager offered:Patient declines Patient arrived in the room [...] care. See her note for procedure details. [facility] 03-05-2024 Note HNO ID: [id number] Author: ACE VERA MD Service: Urology Author [...] assessment, plan, and treatment Other, please specify [facility] 03-05-2024 Note HNO ID: [id number] Author: DARBY RODRIGUEZ RPh Service: Pharmacy Author [...] Discharge Medication List. Thank you, Darby Rodriguez, MinervaD, [facility] Solid Organ Transplant and Internal Medicine Clinical Consulting Utility Forester Phone: [phone] Creatinine clearance cannot be calculated (Unknown ideal [...] Your Medications These medications were sent to [facility] - [place] [address] - [address] - [phone] [place] [address] acetaminophen 500 mg tablet docusate sodium 100 mg capsule methocarbamol 750 mg tablet oxyCODONE IR 5 mg immediate release tablet tamsulosin 0.4 mg [facility] 03-05-2024 Note HNO ID: [id number] Author: HELENA MERRILL, ? Service: Pharmacy Author Type: Translator And Interpreter Type: Plan of Care Filed: 03/05/2024 08:26 Note Text: Insurance investigation completed Patient has active prescription insurance: Yes - Patient's insurance is in-network with [facility] Insurance loaded into [facility]: Yes Test claim was completed to verify insurance is active: Successful Any questions, please contact your medication cable television access coordinator. Pager #: [phone] [facility] 03-05-2024 Note HNO ID: [id number] Author: ACE VERA MD Service: Urology Author Type: Resident Type: Progress Notes Filed: 03/05/2024 07:10 Note Text: [facility] UROLOGY PROGRESS NOTE Name: Zaynab Zaidi DATE: 03/05/2024 After Hours [facility] Service Pager: [phone] ASSESSMENT Zaynab Zaidi is a 68 year [...] Weekdays from 7 AM - 5 PM [phone] Pager #: After 5 PM and on WEEKENDS [phone] Objective Vital Signs BP 102/56 Pulse 66 Temp 36.8 ?C (98.2 ?F) (Oral) Resp 16 LMP (LMP Unknown) SpO2 96% There is no height or weight on file to calculate BMI. 03/04/24201003/04/24 23303/04/24 23303/05/24 0245 BP: 124/60 107/62 102/56 Pulse: 79 [...] 192* Input and Output Date 03/04/24699 - 03/05/2465803/05/24699 - 03/06/24 0659 Shift 4585-8762 2406-4174 7841-7461 24 Hour Total 7505-6107 2691-3934 6896-1432 24 Hour Total INTAKE PO 500 425 422 4552 PO 500 649 287 5577 Shift Total 500 190 504 1801 OUTPUT Urine 650 3847 999 7249 Output ( Indwelling Urinary Catheter 03/02/24 0814 [facility] Kirk 18 Fr) 650 9754 893 7756 # of BMs Number of BMs 0 x 0 x Shift Total 650 0786 946 5359 Weight (kg) Physical Exam General: Well-appearing, no acute distress CV: HDS Lungs: Unlabored breathing on room air L Abdomen: Soft, non-distended Wound: Incisions appropriately tender and clean, dry, and intact : Kirk in place draining clear yellow urine Extremities: Normal. No LE edema [facility] 03-04-2024 Note HNO ID: [id number] Author: ACE VERA MD Service: Urology Author Type: Resident Type: Progress Notes Filed: 03/04/2024 09:24 Note Text: [facility] UROLOGY PROGRESS NOTE Name: Zaynab Zaidi DATE: 03/04/2024 After Hours [facility] Urology Service Pager: [phone] ASSESSMENT Zaynab Zaidi is a 68 year [...] Weekdays from 7 AM - 5 PM [phone] Pager #: After 5 PM and on WEEKENDS [phone] Objective Vital Signs BP 141/84 Pulse 88 [...] 03/03/24699 - 03/04/2465803/04/24699 - 03/05/24 0659 Shift 0455-5844 4055-0104 8766-9634 24 Hour Total 5765-7119 3123-5620 9619-0995 24 Hour Total INTAKE PO 240 100 462 0585 PO 240 500 014 7685 IV 1613 389 2832 Volume (mL) (lactated ringers iv infusion) 0752 302 7410 Shift Total 1887 689 198 0687 OUTPUT Urine 1374 2049 2199 5625 Output ( Indwelling Urinary Catheter 03/02/24 0814 [facility] Kirk 18 Fr) 1372049 5625 # of [...] pink urine Extremities: Normal. No LE edema [facility] 03-03-2024 Note HNO ID: [id number] Author: ANNALISE TUCKER RN Service: Care Management [...] 03, 2024 TIME: 10:01 AM CONTACT #: [phone] [facility] 03-03-2024 Note HNO ID: [id number] Author: ACE VERA MD Service: Urology Author Type: Resident Type: Progress Notes Filed: 03/03/2024 08:59 Note Text: [facility] UROLOGY PROGRESS NOTE Name: Zaynab Zaidi DATE: 03/03/2024 After Hours [facility] Urology Service Pager: [phone] ASSESSMENT Zaynab Zaidi is a 68 year [...] Weekdays from 7 AM - 5 PM [phone] Pager #: After 5 PM and on WEEKENDS [phone] Objective Vital Signs BP 126/64 Pulse 73 Temp 37.2 ?C (99 ?F) (Oral) Resp 18 LMP (LMP Unknown) SpO2 98% There is no height or weight on file to calculate BMI. 03/02/24 1630 03/02/24 1722 03/03/24 0106 03/03/24 0343 BP: 124/62 116/50 134/69 126/64 Pulse: 69 63 80 73 Resp: 17 Temp: 36.6 ?C (97.9 ?F) 36.7 ?C [...] 0659 03/03/24 07 - 03/04/24 0659 Shift 2288-1428 6751-5257 7998-9226 24 Hour Total 3732-4982 8931-7114 2797-0007 24 Hour Total INTAKE PO 120 120 120 120 PO 120 120 120 120 IV 3000 160 3160 1647 1647 Volume (mL) (lactated ringers iv infusion) 2000 2000 Volume (mL) (lactated ringers iv infusion) 1000 1000 Volume (mL) (lactated ringers iv infusion) 393 212 5709 1647 Shift Total 3000 280 3280 1767 1767 OUTPUT Urine 023 719 0218 2100 OR Urine Output 475 475 Output ( Indwelling Urinary Catheter 03/02/24 0814 [facility] Kirk 18 Fr) 125 1500 1625 Blood 50 50 Estimated Blood loss 50 50 Shift Total 099 541 6061 2150 Weight (kg) Physical Exam General: Well-appearing, no acute distress CV: HDS Lungs: Unlabored breathing on nasal canula 2 L Abdomen: Soft, non-distended Wound: Incisions appropriately tender and clean, dry, and intact : Kirk in place draining light pink urine Extremities: Normal. No LE edema [facility] 03-02-2024 Note HNO ID: [id number] Author: ANA MARIA LUONG, RN Service: ? Author Type: Registered Nurse Type: Progress Notes Filed: 03/02/2024 18:56 Note Text: Admission/Transfer Note PATIENT NAME: Zaynab Zaidi Patient Location: [place] [address] Room: [place] [address] Patient admitted from PACU via stretcher in stable condition. Actions taken: Patient oriented to room, call light function, prescribed activities, Patient rights, and Quiet at night. This note was completed by: Ana Maria Luong [facility] 03-02-2024 Note HNO ID: [id number] Author: ACE VERA MD Service: Urology Author Type: Resident Type: Progress Notes Filed: 03/02/2024 17:44 Note Text: [facility] UROLOGY PROGRESS NOTE Name: Zaynab Zaidi DATE: 03/02/2024 After Hours [facility] Service Pager: [phone] ASSESSMENT Zaynab Zaidi is a 68 year [...] Weekdays from 7 AM - 5 PM [phone] Pager #: After 5 PM and on WEEKENDS [phone] Objective Vital Signs BP 124/62 Pulse 69 [...] 03/01/24 1500 - 03/02/24 0659(Not Admitted) 03/02/24 07 - 03/03/24 0659 Shift 4586-6170 9674-0474 24 Hour Total 5420-3396 1178-7722 5405-4751 24 Hour Total INTAKE IV 3000 160 3160 Volume (mL) (lactated ringers iv infusion) 2000 2000 Volume (mL) (lactated ringers iv infusion) 1000 1000 Volume (mL) (lactated ringers iv infusion) 160 160 Shift Total 3000 160 3160 OUTPUT Urine 475 125 600 OR Urine Output 475 475 Output ( Indwelling Urinary Catheter 03/02/24 0814 [facility] Kirk 18 Fr) 125 125 Blood 50 50 Estimated Blood loss 50 50 Shift Total 525 125 650 Weight (kg) Physical Exam General: Well-appearing, no acute distress CV: HDS Lungs: Unlabored breathing on nasal canula 2l Abdomen: Soft, non-distended Wound: Incisions appropriately tender and clean, dry, and intact : kirk in place draining light rust color Extremities: Normal. No LE edema [facility] 03-02-2024 Note HNO ID: [id number] Author: AZALEA SERRA MD Service: ? Author Type: Anesthesiologist Type: Anesthesia Procedure Notes Filed: 03/02/2024 16:57 Note Text: ANESTHESIOLOGY PROCEDURE NOTE A-Line General Information Procedure Start Time/Medication Administration: 03/02/2024 8:05 AM Procedure End Time: 03/02/2024 8:05 AM Patient location during procedure: OR Timeout Performed Pre-procedure: timeout performed Consent Obtained: Yes Patient identity confirmed: arm band, care steamship agent and patient sedated or unresponsive Indications: continuous [...] tolerated procedure well with no complications Comments [facility] STAFF ANESTHESIOLOGIST DAY OF SURGERY PREPROCEDURE NOTE ATTESTATION I evaluated the patient and personally participated in the méndez components. I agree with the findings and plan as documented and have discussed the case and management of the patient's care with the rest of the anesthesia care team. Signature: Azalea Serra MD Date of Service: March 02, 2024 SIGNATURE: Sara Santanaar PATIENT NAME: Zaynab Zaidi DATE: March 02, 2024 TIME: 9:45 AM CSN: [id number] [facility] 03-02-2024 Note HNO ID: [id number] Author: AZALEA SERRA MD Service: ? Author Type: Anesthesiologist Type: Anesthesia Procedure Notes Filed: 03/02/2024 16:56 Note Text: ANESTHESIOLOGY PROCEDURE NOTE Airway General Information Procedure Start Time/Medication Administration: 03/02/2024 7:41 AM Procedure End Time: 03/02/2024 7:41 AM Patient location during procedure: OR Timeout Performed Pre-procedure: timeout performed Consent Obtained: Yes Patient identity confirmed: arm band, care steamship agent and patient Staffing Anesthesiologist: Azalea Serra MD Resident: Sara Wilson DO Performed by: resident Indications and Patient Condition Indications for airway management: anesthesia Preoxygenated: yes anesthesia circuit Patient position: sniffing Method: asleep Cricoid Pressure: No Difficult Mask: No Final Airway Details Final airway type: endotracheal airway Final Endotracheal Airway: ETT Cuffed: yes Successful intubation technique: video laryngoscopy Devices used: PrimeStone Endotracheal tube insertion site: oral Blade: Cyn Blade size: #3 ETT size (mm): 7.0 Measured from: lips Measurement (cm): 22 Placement verified by: capnometry Cormack-Lehane Classification: grade I - full view of glottis Number of attempts at approach: 1 Failed airway: no Unrecognized esophageal intubation: no Airway not difficult SIGNATURE: Sara Rankinleonel PATIENT NAME: Zaynab Zaidi DATE: March 02, 2024 TIME: 9:42 AM CSN: [id number] [facility] 02-19-2024 History of Present illness Narrative REASON [...] performed due to technical problems in the label remover. Venous duplex US - UE 07/18/23: - [...] (FLONASE) 50 mcg/actuation nasal spray Use 1 [place] in the nose as needed for cold/allergy [...] Chip Carr MD documented in this encounter [facility] 02-19-2024 Note HNO ID: [id number] Author: CHIP CARR MD Service: ? Author [...] performed due to technical problems in the label remover. Venous duplex US - UE 07/18/23: - [...] (FLONASE) 50 mcg/actuation nasal spray Use 1 [place] in the nose as needed for cold/allergy [...] optimally prepared for surgery Chip Carr MD [facility] 02-19-2024 Instructions Tavia Montiel, ROLLED MATERIALS WORKER.EXPELLER WORKER - 02/19/2024 1:32 PM EDT PATIENT PREOPERATIVE INSTRUCTIONS Chip Carr MD has scheduled you for your procedure at this surgery center: If no call by 4pm the day before surgery, please call this number. [facility] [place] Scheduling Office: [phone] --[address] [place] [address]. Please read below carefully for your personalized [...] Procedures: - YOU MUST HAVE A RESPONSIBLE JACQUARD LOOM CARD CHANGER TAKE YOU HOME. A MAGNETIC TAPE COMPOSER OPERATOR OR ELEVATOR INSTALLER APPRENTICE CANNOT BE MADE A RESPONSIBLE JACQUARD LOOM CARD CHANGER. - We recommend that a responsible person [...] call the Friday before. Your surgeon s prep manager will tell you what time to call the office. - If you have not reached the departmental prep manager by 5 P.M., call [phone] after 5 P.M. the day before your surgery. Please be aware that emergency situations arise, which may delay or change your surgical time. If this happens, we will notify you as soon as possible and regret any inconvenience. If you already have an Advance Directive, please fax a copy to [phone] or email to for it to be [...] into your chart that day. Tavia Montiel APRN.MARIBEL documented in this encounter [facility] 02-19-2024 History and physical note HISTORY AND PHYSICAL EXAMINATION SERVICE DATE: 02/19/2024 SERVICE TIME: 1:17 PM PRIMARY CARE PHYSICIAN: Ammon Lucas MD Assessment Patient has the following medical conditions which may affect elzbieta-operative course: 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 Little Traverse's syndrome Sp styloidectomy Other hyperlipidemia Managed on [...] Abdominal Aortic Aneurysm (Aaa) Without Rupture (Hcc) Little Traverse's Syndrome Other Hyperlipidemia Ovarian Varices Nutcracker Phenomenon [...] Positive for: peripheral neuropathy (neurontin). Negative for: HIM SPECIALISTS tumor, delirium, dementia, headaches, multiple sclerosis, seizures, [...] chest pain, CHF, DVT/PE, hypertension and recent CA. GI: Pelvic congestion, abdominal and L flank [...] nephrolithiasis, renal failure and urinary tract infection. STEM CRUSHER: See HPI. 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 Instructions Given to Patient: Instructions located in the after visit summary. Patient given verbal and written preop instructions and voices comprehension and compliance. SIGNATURE: Tavia Montiel APRN.CNP PATIENT NAME: Zaynab Zaidi DATE: February 19, 2024 TIME: 1:54 PM PAGER/CONTACT #: [facility] 02-19-2024 History and physical note HISTORY AND PHYSICAL EXAMINATION SERVICE DATE: 02/19/2024 SERVICE TIME: 1:17 PM PRIMARY CARE PHYSICIAN: Ammon Lucas MD Assessment Patient has the following medical conditions which may affect elzbieta-operative course: 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 Little Traverse's syndrome Sp styloidectomy Other hyperlipidemia Managed on [...] OF KIDNEY (Left) at the request of Cihp Ahmadi MD for consultation. My final recommendation will be communicated back to the requesting physician by way of shared medical record or letter. Subjective The patient has the following: ACTIVE PROBLEM LIST Pararenal Abdominal Aortic Aneurysm (Aaa) Without Rupture (Hcc) Little Traverse's Syndrome Other Hyperlipidemia Ovarian Varices Nutcracker Phenomenon [...] Positive for: peripheral neuropathy (neurontin). Negative for: HIM [employer]ISTS tumor, delirium, dementia, headaches, multiple sclerosis, seizures, [...] chest pain, CHF, DVT/PE, hypertension and recent CA. GI: Pelvic congestion, abdominal and L flank [...] nephrolithiasis, renal failure and urinary tract infection. STEM CRUSHER: See HPI. 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 Instructions Given to Patient: Instructions located in the after visit summary. Patient given verbal and written preop instructions and voices comprehension and compliance. SIGNATURE: Tavia Monteil APRN.CNP PATIENT NAME: Zaynab Zaidi DATE: February 19, 2024 TIME: 1:54 PM PAGER/CONTACT #: documented in this encounter [facility] 02-19-2024 Note Patient Outreach (UR OLMN) ZAYNAB WATKINS ([id number]) 1955 F Date Time Provider Department 02/19/24 [...] for genitourinary condition [Z13.89] Order(s):URINALYSIS, REFLEX MICROSCOPIC [[id number]] Order #: [id number]. #:[id number] Prescriptions as of 02/23/2024 - calcium carbonate/vitamin D3 (CALTRATE 600 + D ORAL) Take 600 mg by mouth two times a day. - atorvastatin (LIPITOR) 20 mg tablet Take 20 mg by mouth every evening. 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 female presents today for Chief Complaint Patient presents with S/P submandibular gland dilation HPI: Zaynab Zaidi is a 68 y.o. female seen to follow-up right submandibular duct dilation. Patient was last seen on 12/02/2023 by Alex Ramirez PA-C. She underwent right submandibular duct dilation with steroid irrigation. She notes she is doing well overall. She had a URI about three weeks ago that has now resolved. She was not treated with any medications during her recent infection. Patient is scheduled for autotransplantation of kidney on 03/02/2024 at [facility]. She uses Flonase and singular during her symptomatic times. 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 Osteoporosis Pelvic congestion syndrome Peripheral vascular disease ([facility]) Seasonal allergies Submandibular gland swelling 11/12/2023 Visual impairment glasses Past Surgical History: Procedure Laterality Date CATARACT EXTRACTION Bilateral 2017 CHOLECYSTECTOMY COLONOSCOPY COLONOSCOPY N/A 07/23/2018 Performed by Frank Christine DO at [facility] DENTAL SURGERY 07/2013 implants Diagnostic cerebral angiogram N/A 03/31/2020 Performed by Melissa Morillo MD at [facility] CARDIAC CATH LABS DIAGNOSTIC VENOGRAM OF IVC AND ILEOCABLE, LEFT RENAL VEIN, SELECTIVE LEFT OVARIAN VEIN CONTRAST AND IVUS VENOGRAMS N/A 07/25/2023 Performed by Erendira Armijo DO at [facility] SPECIAL PROC dilation rt submandibular duct and steroid irrigation Right 11/24/2023 Performed by Sarah Godwin MD at [facility] KIDNEY STONE SURGERY 2019? KNEE CARTILAGE SURGERY MOLE REMOVAL 11/10/2023 right breast OTHER SURGICAL HISTORY 08/31/2020 cranial base ( cranial styloidectomy) 05/2020 also OTHER SURGICAL HISTORY 06/18/2023 venogram OTHER SURGICAL HISTORY 09/09/2023 DIagnostic venogram TUBAL LIGATION Vascular Invasive Diagnostic venogram with IVUS and the ability to measure pressure gradients Bilateral 06/18/2023 Performed by Erendira Armijo DO at [facility] CARDIAC CATH LABS Family History Problem Relation [...] date: 02/07/1970 Quit date: 02/08/2000 Years since quittin.0 Passive exposure: Past Smokeless tobacco: Never Vaping [...] for chills and fever. HENT: Negative for sore throat, trouble swallowing and voice change. Respiratory: Negative for cough and wheezing. Data Reviewed: PHYSICAL EXAMINATION: Temp 37.1 C (98.7 F) Ht 170.2 cm (5' 7 ) Wt 60.4 kg (133 lb 3.2 oz) BMI 20.86 kg/m Constitutional: General Appearance: Healthy, alert, cooperative, and in no distress Ability to Communicate: Normal ability to communicate and Voice normal Head/Face: Inspection of Head/Face: Normocephalic without obvious abnormality, Atraumatic appearance, and Sinuses non-tender Facial Nerve: Facial nerve symmetrical and intact Salivary Glands: Parotid Gland: Normal, Submandibular Gland: Abnormal mild ptotic, and Sublingual Gland: Normal Eyes: No gross abnormalities, EOMI, and No Nystagmus Ears: External Ear: Normal bilateral Nose: External Nose: Normal Septum: mildly deviated to the left. Mucosa/Turbinates: Normal inferior turbinate and Abnormal bilateral Mucosal dryness mild Oral Cavity: Normal lips, Normal gums, Normal floor of mouth, Normal oral mucosa, Normal anterior tongue, and top and bottom dental implants. Oropharynx: Normal mucosa, Normal soft palate, Normal hard palate, Normal uvula, Normal tonsils, and Normal Vallecula Neck: Neck supple, No adenopathy, Thyroid normal in size without nodules or tenderness, No palpable neck masses, and Carotids normal Respiratory: No stridor, Normal respiratory effort and No use of accessory muscles Cardiovascular: Regular rate and Regular rhythm Neurologic: Patient is alert and oriented x3 with normal affect and grossly normal cranial nerves ASSESSMENT/PLAN: Sheri was seen today for s/p submandibular gland dilation . Diagnoses and all orders for this visit: Chronic sialoadenitis Today's examination findings were discussed with the patient/patient's parent or guardian. Recommendations for treatment were provided including the following: - Patient is doing well post-operatively. - Recommend switching from Flonase to Flonase Sensimist. This is not regular Flonase, it is non-alcohol based, scent free and it is a different molecule. Use 2 sprays in each nostril once a day. Aim toward the ear when administering it. Consistency in daily use is important. It will take 4-6 weeks of consistent use to see effects of this medication. Recommend starting a month before symptomatic times. - Follow up in 6 months. The patient will contact my office if there are any additional questions or concerns: . Non-emergent messages received through Conferensum may take up to 2 business days for a response. Scribe Statement: Scribed for and in the presence of Sarah Godiwn MD by Ambika Martin (scribe). Ambika Martin 02/10/2024 10:12 AM Provider Statement: I Sarah Godwin MD personally performed the services described in the documentation as described by the above named scribe in my presence. It is both accurate and complete at the time of final signature. Dr. Sarah Godwin 02/10/2024 7:33 AM Counseling: The following elements of medical decision making were considered during this visit: Reviewed and summarized previous records. The patient was counseled regarding prognosis, risks and benefits of treatment options, impressions, importance of compliance with treatment and risk factor reductions. The patient verbalized understanding and agreement to the plan. Total time spent was 15 minutes: Preparing to see the patient (e.g., review of tests) Obtaining and/or reviewing separately obtained history Performing a medically appropriate examination and/or evaluation Counseling and educating the patient/family/caregiver Documenting clinical information in the electronic or other health record Independently interpreting results (not separately reported) and communicating results to the patient/family/caregiver Electronically signed by Sarah Godwin MD Please note that parts of this chart were generated using voice recognition M*Modal dictation software. Although every effort was made to ensure the accuracy of this automated fine craft artist, some errors in fine craft artist may have occurred. documented in this encounter [facility] 02-10-2024 Instructions Ambika Martin - 02/10/2024 9:45 AM EDT Today's examination findings were discussed with the patient/patient's parent or guardian. Recommendations for treatment were provided including the following: - Patient is doing well post-operatively. - Recommend switching from Flonase to Flonase Sensimist. This is not regular Flonase, it is non-alcohol based, scent free and it is a different molecule. Use 2 sprays in each nostril once a day. Aim toward the ear when administering it. Consistency in daily use is important. It will take 4-6 weeks of consistent use to see effects of this medication. Recommend starting a month before symptomatic times. - Follow up in 6 months. The patient will contact my office if there are any additional questions or concerns: . Non-emergent messages received through Conferensum may take up to 2 business days for a response. documented in this encounter [facility] 01-13-2024 Miscellaneous Notes [facility] email message to cancel surgery being done robotic procedure instead at the Clinic. documented in this encounter [facility] 01-01-2024 Miscellaneous Notes Sounds good thanks Mrs. Zaidi called to let Dr. Fox know that Urology is able to do the proposed procedure robotically and that she is scheduled to have it done on March 02. Estephania Mojica Rigger Apprentice documented in this encounter [facility] 12-25-2023 History of Present illness Narrative [...] performed due to technical problems in the label remover. Venous duplex US - UE 07/18/23: - [...] (FLONASE) 50 mcg/actuation nasal spray Use 1 [place] in the nose as needed for cold/allergy [...] Chip Carr MD documented in this encounter [facility] 12-25-2023 Note HNO ID: [id number] Author: CHIP CARR MD Service: ? Author [...] performed due to technical problems in the label remover. Venous duplex US - UE 07/18/23: - [...] (FLONASE) 50 mcg/actuation nasal spray Use 1 [place] in the nose as needed for cold/allergy [...] prepared for the surgery Chip Carr MD [facility] 12-25-2023 Note Patient Outreach (UR OLMN) ZAYNAB ZAIDI ([id number]) 1955 F Date Time Provider Department 12/25/23 [...] for genitourinary condition [Z13.89] Order(s):URINALYSIS, REFLEX MICROSCOPIC [[id number]] Order #: [id number]. #:[id number] Prescriptions as of 12/29/2023 - calcium carbonate/vitamin D3 (CALTRATE 600 + D ORAL) Take 600 mg by mouth once daily. - atorvastatin (LIPITOR) 20 mg tablet Take 20 mg by mouth every evening. - fluticasone (FLONASE) 50 mcg/actuation nasal spray Use 1 [place] in the nose as needed for cold/allergy [...] Encounter Status:Closed by EPIC, PRODUSER on 12/29/23 [facility] 12-22-2023 History of Present illness Narrative Images from the original note were not included. PATIENT: Zaynab Zaidi [id number] NEW PATIENT REFERRING MD: Rina Fox 12/20/2023 [...] pelvis region (feels like sitting on cucumber) [place] this started one year ago. Thought it [...] elevating her legs. with PMH significant for Little Traverse Syndrome, jugular vein stenosis (asymptomatic), HLD, nutcracker [...] fluticasone (FLONASE) 50 mcg/actuation nasal spray 1 [place], NASAL, NEEDED, Take in allergy season
gabapentin [...] performed due to technical problems in the label remover. Venous duplex US - UE 07/18/23: - [...] for renal vein transposition (msg sent through Conferensum) Scribe Attestation: By signing my name below, [...] Deleon MD [facility] Replaced By [facility] [place] [facility] Medical Decision Making: Problems: Moderate: New problem with uncertain prognosis Data: Unique test result(s) reviewed: 1 Unique test(s) ordered: 1 Risk: Moderate: Moderate risk from testing/treatment Medical Decision Making Level: 4 - Moderate documented in this encounter [facility] 12-22-2023 Note HNO ID: [id number] Author: RADU DELEON MD Service: ? Author Type: Physician Type: Progress Notes Filed: 12/23/2023 07:58 Note Text: PATIENT: Zaynab Zaidi [id number] NEW PATIENT REFERRING MD: Rina Fox 12/20/2023 [...] pelvis region (feels like sitting on cucumber) [place] this started one year ago. Thought it [...] elevating her legs. with PMH significant for Little Traverse Syndrome, jugular vein stenosis (asymptomatic), HLD, nutcracker [...] fluticasone (FLONASE) 50 mcg/actuation nasal spray 1 [place], NASAL, NEEDED, Take in allergy season - [...] evidence for atherosclero (more content not included)... [facility] 12-22-2023 Nurse Note Summary: Bladder S can Patient PVR recorded: 0 mL LUCIAN Rodriguez documented in this encounter [facility] 12-22-2023 Note Patient Outreach (UR OLMN) ZAYNAB ZAIDI ([id number]) 1955 F Date Time Provider Department 12/22/23 [...] for genitourinary condition [Z13.89] Order(s):URINALYSIS, REFLEX MICROSCOPIC [[id number]] Order #: [id number]. #:[id number] Prescriptions as of 12/25/2023 - calcium carbonate/vitamin D3 (CALTRATE 600 + D ORAL) Take 600 mg by mouth once daily. - atorvastatin (LIPITOR) 20 mg tablet Take 20 mg by mouth every evening. - fluticasone (FLONASE) 50 mcg/actuation nasal spray Use 1 [place] in the nose as needed for cold/allergy [...] aortic aneurysm (AAA) witho*12/18/2023 Encounter Status:Closed by Novel SuperTV, PRODUSER on 12/25/23 [facility] 12-18-2023 History of Present illness Narrative Images from the original note were not included. [facility] [place] DEPARTMENT OF VASCULAR SURGERY OUTPATIENT VISIT DATE [...] elevating her legs. 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 Venous duplex US - UE 07/18/23: - [...] (FLONASE) 50 mcg/actuation nasal spray Use 1 [place] in the nose as needed for cold/allergy [...] TIME: 8:49 AM documented in this encounter [facility] 12-18-2023 Note HNO ID: [id number] Author: RINA FOX MD Service: ? Author Type: Physician Type: Progress Notes Filed: 12/18/2023 15:50 Note Text: [facility] [place] DEPARTMENT OF VASCULAR SURGERY OUTPATIENT VISIT DATE [...] elevating her legs. 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 Venous duplex US - UE 07/18/23: - [...] (FLONASE) 50 mcg/actuation nasal spray Use 1 [place] in the nose as needed for cold/allergy [...] Left: palpable Posterior (more content not included)... [facility] 12-12-2023 Miscellaneous Notes Appt scheduled 12/18/23 with [...] she can be scheduled appropriately. Estephania Mojica Rigger Apprentice documented in this encounter [facility] 12-02-2023 History of Present illness Narrative [facility] [place] [facility] [place] [address] , [address] [facility] [address] SUBJECTIVE: Patient ID (1955): Zaynab Zaidi is [...] History: Diagnosis Date AAA (abdominal aortic aneurysm) ([facility]) Angina pectoris ([facility]) Aortic aneurysm ([facility]) Arthritis Cataract Chest pain Chronic kidney disease stone Chronic rhinitis Coronary artery disease Dental disease implants Dizziness Dysphagia, pharyngeal phase Little Traverse's syndrome Fractures left arm 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 Osteoporosis Pelvic congestion syndrome Peripheral vascular disease ([facility]) Seasonal allergies Submandibular gland swelling 11/12/2023 Visual impairment glasses Past Surgical History: Procedure Laterality Date CATARACT EXTRACTION Bilateral 2017 CHOLECYSTECTOMY COLONOSCOPY COLONOSCOPY N/A 07/23/2018 Performed by Frank Christine DO at [facility]ERY 07/2013 implants Diagnostic cerebral angiogram N/A 03/31/2020 Performed by Melissa Morillo MD at [facility] CARDIAC CATH LABS DIAGNOSTIC VENOGRAM OF IVC AND ILEOCABLE, LEFT RENAL VEIN, SELECTIVE LEFT OVARIAN VEIN CONTRAST AND IVUS VENOGRAMS N/A 07/25/2023 Performed by Erendira Armijo DO at [facility] SPECIAL PROC dilation rt submandibular duct and steroid irrigation Right 11/24/2023 Performed by Sarah Godwin MD at [facility] KIDNEY STONE SURGERY 2019? KNEE CARTILAGE SURGERY MOLE REMOVAL 11/10/2023 right breast OTHER SURGICAL HISTORY 08/31/2020 cranial base ( cranial styloidectomy) 05/2020 also OTHER SURGICAL HISTORY 06/18/2023 venogram OTHER SURGICAL HISTORY 09/09/2023 DIagnostic venogram TUBAL LIGATION Vascular Invasive Diagnostic venogram with IVUS and the ability to measure pressure gradients Bilateral 06/18/2023 Performed by Erendira Armijo DO at [facility] CARDIAC CATH LABS Family History Problem Relation [...] this chart were generated using voice recognition Bee Networx (Astilbe) dictation software. Although every effort was made to ensure the accuracy of this automated fine craft artist, some errors in fine craft artist may have occurred. Alex Ramirez PA-C 12/02/23 1258 documented in this encounter [facility] 11-20-2023 Miscellaneous Notes PATIENT NOTIFIED WITH SURGERY TIME OF 12:15 . TOLD TO ARRIVE 2 HOURS PRIOR. documented in this encounter [facility] 11-20-2023 Telephone encounter Note PATIENT NOTIFIED WITH SURGERY TIME OF 12:15 . TOLD TO ARRIVE 2 HOURS PRIOR. [facility] 11-12-2023 History and physical note PRE-ADMISSION TESTING HISTORY AND PHYSICAL EXAM DATE: 11/12/23 PCP: AMMON LUCAS MD HISTORY OF PRESENT ILLNESS: Zaynab Zaidi, a 68 y.o. White or female, presents to [facility] for a pre-surgical H&P. The patient has been diagnosed with Submandibular gland swelling [R60.0] . Patient has a history of Little Traverse Syndrome and had bilateral surgery with Dr. De Leon at [place]. Patient has had intermittent swelling of the right submandibular gland. Patient has been treated with antibiotics without any improvement. Patient had a CT neck and soft tissues on 08/12/2023 which showed Slightly prominent and questionably hyperenhancing submandibular glands without other indication of surrounding inflammatory change, mild inflammation could be considered. No definite obstructing stone however evaluation limited due to dental artifact. Slightly prominent left level 4 lymph nodes measuring up to 9 x 6 mm, increased in size from prior. Increasing nodules of the upper lungs. Dedicated chest CT recommended. Questionable asymmetric enhancement within the right internal auditory canal. Further evaluation with MRI IAC protocol with contrast recommended. Patient then had a MRI brain IAC with and without contrast on September 01, 2023 which showed No abnormal retrocochlear mass, enhancement or abnormality, including at the level of the right internal auditory canal. Probable high riding left jugular bulb. Asymmetric, expansile CSF cistern at the level of Meckel's cave, nonspecific. Patient denies any recent illness, fever or cough. Anesthesia problems: denies. Latex allergy: denies. Bleeding/ clotting disorders: denies. Recent hospitalizations: denies. 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 Osteoporosis Pelvic congestion syndrome Peripheral vascular disease ([facility]) Seasonal allergies Submandibular gland swelling 11/12/2023 Visual impairment glasses PAST SURGICAL HISTORY: Past Surgical History: Procedure Laterality Date CATARACT EXTRACTION Bilateral 2018 CHOLECYSTECTOMY COLONOSCOPY COLONOSCOPY N/A 07/23/2018 Performed by Frank Christine DO at [facility] D[facility] SURGERY 07/2013 implants Diagnostic cerebral angiogram N/A 03/31/2020 Performed by Melissa Morillo MD at [facility] CARDIAC CATH LABS DIAGNOSTIC VENOGRAM OF IVC AND ILEOCABLE, LEFT RENAL VEIN, SELECTIVE LEFT OVARIAN VEIN CONTRAST AND IVUS VENOGRAMS N/A 07/25/2023 Performed by Erendira Armijo DO at [facility] PROC KIDNEY STONE SURGERY 2019? KNEE CARTILAGE SURGERY MOLE REMOVAL 11/10/2023 right breast OTHER SURGICAL HISTORY 08/31/2020 cranial base ( cranial styloidectomy) 05/2020 also OTHER SURGICAL HISTORY 06/18/2023 venogram OTHER SURGICAL HISTORY 09/09/2023 DIagnostic venogram TUBAL LIGATION Vascular Invasive Diagnostic venogram with IVUS and the ability to measure pressure gradients Bilateral 06/18/2023 Performed by Erendira Armijo DO at [facility] CARDIAC CATH LABS FAMILY HISTORY: Family History Problem Relation Age of Onset Aneurysm Mother Aneurysm Father Stroke Brother Anesthesia problems Neg Hx SOCIAL HISTORY: The patient reports current alcohol use. She reports that she quit smoking about 23 years ago. Her smoking use included cigarettes. She has a 30 pack-year smoking history. She has been exposed to tobacco smoke. She has never used smokeless tobacco. She reports no history of drug use. ALLERGIES: Allergies Allergen Reactions Clindamycin Hives, Shortness Of Breath and Rash Bee Venom Protein (Honey Bee) Rash Codeine GI Disturbance Doxycycline Hyclate Rash MEDICATIONS: Current Outpatient Medications: atorvastatin (LIPITOR) 20 mg tablet, Take 1 tablet (20 mg total) by mouth in the morning for 360 days. (Patient taking differently: Take 1 tablet (20 mg total) by mouth nightly.), Disp: 90 tablet, Rfl: 3 ibuprofen (ADVIL,MOTRIN) 200 mg tablet, Take 2 tablets (400 mg total) by mouth every 6 (six) hours as needed for pain., Disp: , Rfl: montelukast (SINGULAIR) 10 mg tablet, Take 1 tablet (10 mg total) by mouth nightly Indications: seasonal runny nose., Disp: , Rfl: CALCIUM CARBONATE-VITAMIN D3 ORAL, Take 600 mg by mouth in the morning., Disp: , Rfl: fluticasone (FLONASE) 50 mcg/actuation nasal spray, Administer 1 spray into each nostril in the morning. (Patient not taking: Reported on 11/12/2023), Disp: , Rfl: gabapentin (NEURONTIN) 300 mg capsule, Take 1 capsule (300 mg total) by mouth 3 (three) times a day Indications: neuropathic pain. (Patient not taking: Reported on 08/05/2023), Disp: , Rfl: HYDROcodone-acetaminophen (NORCO) 5-325 mg per tablet, Take 1 tablet by mouth every 6 (six) hours as needed. (Patient not taking: Reported on 08/05/2023), Disp: , Rfl: loratadine-pseudoephedrine (LORATADINE-D) 5-120 mg tablet extended release 12 hr, Take 1 tablet by mouth every 12 (twelve) hours. 1/2 tablet- keeps right ear open (Patient not taking: Reported on 08/05/2023), Disp: , Rfl: REVIEW OF SYSTEMS: Review of Systems Constitutional: Negative. HENT: Seasonal allergies, chronic rhinitis, Little Traverse syndrome Eyes: Negative. Respiratory: Negative for apnea, shortness of breath and wheezing. Cardiovascular: Negative for chest pain, palpitations and tachycardia. AAA, PVD Gastrointestinal: Negative. Endocrine: Negative. Genitourinary: Negative. Pelvic congestion syndrome Musculoskeletal: Osteoporosis Skin: Negative. Allergic/Immunologic: Negative. Neurological: Positive for headaches. Hematological: Negative. Psychiatric/Behavioral: Negative. VITAL SIGNS: BP 127/81 Pulse 67 Temp 36.8 C (98.2 F) (Temporal) Resp 18 Ht 170.2 cm (5' 7 ) Wt 60.6 kg (133 lb 9.6 oz) SpO2 98% BMI 20.92 kg/m PHYSICAL EXAM: Physical Exam Constitutional: Appearance: Normal appearance. HENT: Head: Normocephalic and atraumatic. Nose: Nose normal. Mouth/Throat: Mouth: Mucous membranes are moist. Pharynx: Oropharynx is clear. Eyes: Extraocular Movements: Extraocular movements intact. Conjunctiva/sclera: Conjunctivae normal. Pupils: Pupils are equal, round, and reactive to light. Cardiovascular: Rate and Rhythm: Normal rate and regular rhythm. Heart sounds: Normal heart sounds. Pulmonary: Effort: Pulmonary effort is normal. Breath sounds: Normal breath sounds. Abdominal: General: Bowel sounds are normal. Palpations: Abdomen is soft. Musculoskeletal: General: Normal range of motion. Cervical back: Normal range of motion and neck supple. Skin: General: Skin is warm. Neurological: General: No focal deficit present. Mental Status: She is alert and oriented to person, place, and time. RECENT LABS: Lab Results Component Value Date WBC 4.4 06/24/2023 HGB 13.0 06/24/2023 HCT 38.6 06/24/2023 PLT 222 06/24/2023 SODIUM 138 06/24/2023 K 3.7 06/24/2023 CL 103 06/24/2023 CO2 27 06/24/2023 CALCIUM 9.3 06/24/2023 ALKPHOS 54 06/24/2023 ALBUMIN 4.4 06/24/2023 GLU 105 (H) 07/25/2023 ALT 14 06/24/2023 AST 22 06/24/2023 CREATININE 0.84 06/24/2023 BUN 23 06/24/2023 GFR >60 02/08/2020 GFR >60 02/08/2020 EGFR 77 06/24/2023 *Please note that labs listed above are the most recent lab values available in [facility] at the time of the office visit and additional labs may have been drawn since that time. ASSESSMENT / DIAGNOSIS: Submandibular gland swelling [R60.0] PLAN: Zaynab Zaidi is scheduled for Linked Surgery: Sialendoscopy Right Submandibular Duct - Right on 11/24/[address] Godwin. ED Jean 11/12/23 1442 [employer] Work Phone: 11-12-2023 History and physical note PRE-ADMISSION TESTING HISTORY AND PHYSICAL EXAM DATE: 11/12/23 PCP: AMMON LUCAS MD HISTORY OF PRESENT ILLNESS: Zaynab Zaidi, a 68 y.o. White or female, presents to [facility] for a pre-surgical H&P. The patient has been diagnosed with Submandibular gland swelling [R60.0] . Patient has a history of Little Traverse Syndrome and had bilateral surgery with Dr. De Leon at [facility]. Patient has had intermittent swelling of the right submandibular gland. Patient has been treated with antibiotics without any improvement. Patient had a CT neck and soft tissues on 08/12/2023 which showed Slightly prominent and questionably hyperenhancing submandibular glands without other indication of surrounding inflammatory change, mild inflammation could be considered. No definite obstructing stone however evaluation limited due to dental artifact. Slightly prominent left level 4 lymph nodes measuring up to 9 x 6 mm, increased in size from prior. Increasing nodules of the upper lungs. Dedicated chest CT recommended. Questionable asymmetric enhancement within the right internal auditory canal. Further evaluation with MRI IAC protocol with contrast recommended. Patient then had a MRI brain IAC with and without contrast on September 01, 2023 which showed No abnormal retrocochlear mass, enhancement or abnormality, including at the level of the right internal auditory canal. Probable high riding left jugular bulb. Asymmetric, expansile CSF cistern at the level of Meckel's cave, nonspecific. Patient denies any recent illness, fever or cough. Anesthesia problems: denies. Latex allergy: denies. Bleeding/ clotting disorders: denies. Recent hospitalizations: denies. 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 Osteoporosis Pelvic congestion syndrome Peripheral vascular disease ([facility]) Seasonal allergies Submandibular gland swelling 11/12/2023 Visual impairment glasses PAST SURGICAL HISTORY: Past Surgical History: Procedure Laterality Date CATARACT EXTRACTION Bilateral 2017 CHOLECYSTECTOMY COLONOSCOPY COLONOSCOPY N/A 07/23/2018 Performed by Frank Christine DO at [facility] DENTAL SURGERY 07/2013 implants Diagnostic cerebral angiogram N/A 03/31/2020 Performed by Melissa Morillo MD at [facility] CARDIAC CATH LABS DIAGNOSTIC VENOGRAM OF IVC AND ILEOCABLE, LEFT RENAL VEIN, SELECTIVE LEFT OVARIAN VEIN CONTRAST AND IVUS VENOGRAMS N/A 07/25/2023 Performed by Erendira Armijo DO at [facility] SPECIAL PROC KIDNEY STONE SURGERY 2018? KNEE CARTILAGE SURGERY MOLE REMOVAL 11/10/2023 right breast OTHER SURGICAL HISTORY 08/31/2020 cranial base ( cranial styloidectomy) 05/2020 also OTHER SURGICAL HISTORY 06/18/2023 venogram OTHER SURGICAL HISTORY 09/09/2023 DIagnostic venogram TUBAL LIGATION Vascular Invasive Diagnostic venogram with IVUS and the ability to measure pressure gradients Bilateral 06/18/2023 Performed by Erendira Armijo DO at [facility] CARDIAC CATH LABS FAMILY HISTORY: Family History Problem Relation Age of Onset Aneurysm Mother Aneurysm Father Stroke Brother Anesthesia problems Neg Hx SOCIAL HISTORY: The patient reports current alcohol use. She reports that she quit smoking about 23 years ago. Her smoking use included cigarettes. She has a 30 pack-year smoking history. She has been exposed to tobacco smoke. She has never used smokeless tobacco. She reports no history of drug use. ALLERGIES: Allergies Allergen Reactions Clindamycin Hives, Shortness Of Breath and Rash Bee Venom Protein (Honey Bee) Rash Codeine GI Disturbance Doxycycline Hyclate Rash MEDICATIONS: Current Outpatient Medications: atorvastatin (LIPITOR) 20 mg tablet, Take 1 tablet (20 mg total) by mouth in the morning for 360 days. (Patient taking differently: Take 1 tablet (20 mg total) by mouth nightly.), Disp: 90 tablet, Rfl: 3 ibuprofen (ADVIL,MOTRIN) 200 mg tablet, Take 2 tablets (400 mg total) by mouth every 6 (six) hours as needed for pain., Disp: , Rfl: montelukast (SINGULAIR) 10 mg tablet, Take 1 tablet (10 mg total) by mouth nightly Indications: seasonal runny nose., Disp: , Rfl: CALCIUM CARBONATE-VITAMIN D3 ORAL, Take 600 mg by mouth in the morning., Disp: , Rfl: fluticasone (FLONASE) 50 mcg/actuation nasal spray, Administer 1 spray into each nostril in the morning. (Patient not taking: Reported on 11/12/2023), Disp: , Rfl: gabapentin (NEURONTIN) 300 mg capsule, Take 1 capsule (300 mg total) by mouth 3 (three) times a day Indications: neuropathic pain. (Patient not taking: Reported on 08/05/2023), Disp: , Rfl: HYDROcodone-acetaminophen (NORCO) 5-325 mg per tablet, Take 1 tablet by mouth every 6 (six) hours as needed. (Patient not taking: Reported on 08/05/2023), Disp: , Rfl: loratadine-pseudoephedrine (LORATADINE-D) 5-120 mg tablet extended release 12 hr, Take 1 tablet by mouth every 12 (twelve) hours. 1/2 tablet- keeps right ear open (Patient not taking: Reported on 08/05/2023), Disp: , Rfl: REVIEW OF SYSTEMS: Review of Systems Constitutional: Negative. HENT: Seasonal allergies, chronic rhinitis, Little Traverse syndrome Eyes: Negative. Respiratory: Negative for apnea, shortness of breath and wheezing. Cardiovascular: Negative for chest pain, palpitations and tachycardia. AAA, PVD Gastrointestinal: Negative. Endocrine: Negative. Genitourinary: Negative. Pelvic congestion syndrome Musculoskeletal: Osteoporosis Skin: Negative. Allergic/Immunologic: Negative. Neurological: Positive for headaches. Hematological: Negative. Psychiatric/Behavioral: Negative. VITAL SIGNS: BP 127/81 Pulse 67 Temp 36.8 C (98.2 F) (Temporal) Resp 18 Ht 170.2 cm (5' 7 ) Wt 60.6 kg (133 lb 9.6 oz) SpO2 98% BMI 20.92 kg/m PHYSICAL EXAM: Physical Exam Constitutional: Appearance: Normal appearance. HENT: Head: Normocephalic and atraumatic. Nose: Nose normal. Mouth/Throat: Mouth: Mucous membranes are moist. Pharynx: Oropharynx is clear. Eyes: Extraocular Movements: Extraocular movements intact. Conjunctiva/sclera: Conjunctivae normal. Pupils: Pupils are equal, round, and reactive to light. Cardiovascular: Rate and Rhythm: Normal rate and regular rhythm. Heart sounds: Normal heart sounds. Pulmonary: Effort: Pulmonary effort is normal. Breath sounds: Normal breath sounds. Abdominal: General: Bowel sounds are normal. Palpations: Abdomen is soft. Musculoskeletal: General: Normal range of motion. Cervical back: Normal range of motion and neck supple. Skin: General: Skin is warm. Neurological: General: No focal deficit present. Mental Status: She is alert and oriented to person, place, and time. RECENT LABS: Lab Results Component Value Date WBC 4.4 06/24/2023 HGB 13.0 06/24/2023 HCT 38.6 06/24/2023 PLT 222 06/24/2023 SODIUM 138 06/24/2023 K 3.7 06/24/2023 CL 103 06/24/2023 CO2 27 06/24/2023 CALCIUM 9.3 06/24/2023 ALKPHOS 54 06/24/2023 ALBUMIN 4.4 06/24/2023 GLU 105 (H) 07/25/2023 ALT 14 06/24/2023 AST 22 06/24/2023 CREATININE 0.84 06/24/2023 BUN 23 06/24/2023 GFR >60 02/08/2020 GFR >60 02/08/2020 EGFR 77 06/24/2023 *Please note that labs listed above are the most recent lab values available in [facility] at the time of the office visit and additional labs may have been drawn since that time. ASSESSMENT / DIAGNOSIS: Submandibular gland swelling [R60.0] PLAN: Zaynab Zaidi is scheduled for Linked Surgery: Sialendoscopy Right Submandibular Duct - Right on 11/24/[address] Godwin. ED Jean 11/12/23 1442 documented in this encounter [facility] 11-12-2023 Instructions Marielle Rivero RN - 11/12/2023 1:15 PM EST Your surgery/procedure is scheduled at [facility] on 11/24/2011 at per surgeon Arrival Timeper surgeon [facility] Address: [address] [place] [address] in [address] located on [facility]. Report to the Entrance B. Check in at the information desk the surgery. The waiting room located on the second floor. If you have any questions prior to surgery, please call Pre-Admission Clinic at [phone] between 7:30 am and 4:30 pm Friday through Friday. If you have questions the morning of surgery, please call the Pre-op Department at [phone]. PLEASE FOLLOW THESE INSTRUCTIONS OR YOUR SURGERY MAY BE CANCELLED/ MEDICATION INSTRUCTIONS Take the following medications the morning of surgery with a sip of water: none Notify your surgeon if you develop any illness such as a cold, cough, fever, sore throat or vomiting between now and your surgery. Your Surgeon wants you in the best possible health for your surgery. Take inhalers as prescribed the morning of surgery. STOP TAKING UNLESS OTHERWISE DIRECTED BY YOUR SURGEON Blood thinners: Medications such as Coumadin, Heparin, aspirin, Plavix, and non-steroidal anti-inflammatory drugs (NSAIDS) affect the body's blood clotting capabilities. These medications are usually stopped 3-7 days prior to surgery. Please contact your physician regarding a stop date for these medications. Diabetics: If you take insulin, contact your prescribing doctor for instructions on how to manage this the night before and the morning of surgery. Weight loss medications: Stop all weight loss medications at least 2 weeks prior to surgery. Vitamins: Stop taking all vitamins, supplements, and herbal products, including herbal tea, 1 week before your surgery. Some vitamins and herbal products may not react well with the medicine used to put you to sleep and/or may thin the blood. Marijuana: Stop marijuana 72 hours prior to surgery, stop CBD oil 48 hours prior to surgery. If you have been given bowel prep instructions by your surgeon, please call the surgeon's office with any questions about these instructions. What do I do the day of Surgery? Age 2 through adult - Stop all solids by midnight, You may have clear liquids up to 2 hours before surgery, unless otherwise instructed by your surgeon. Clear liquids are: water, sports drinks such as Gatorade or G2, or apple juice. You may NOT have: tube feedings, dairy products, alcoholic beverages, orange juice, or any liquids with solids or pulp in it. If applicable, shower again with CHG soap the morning of your surgery. If you received a green plastic bracelet, bring it with you the day of surgery and your nurse will put it on you. In order to help prevent infection post-operatively, you may be asked to use a CHG mouthwash when you arrive to the Pre-op area. Your nurse will provide instruction the morning of. What do I need to do to prepare for surgery? If you will be going home the same day as your surgery, arrange for an adult over [address] Riding in a bus or taxi by yourself is not permitted. You should not smoke or drink alcohol 24 hours before your surgery. Alcohol thins the blood and may cause bleeding problems during surgery. Smoking increases the risk of breathing problems after surgery. If you have been assigned GAUDENCIO Education by your surgeon's office, please complete this education prior to your surgery. For questions regarding GAUDENCIO education, reach out to your surgeon's office. If you have been given a prescription for occupational, physical or speech therapy, please set up these appointments before your procedure. If you would like to schedule therapy at a [facility] facility, please call [phone] ([phone]). Do not use lotions, creams, powders, perfume, make up, cologne or after-shaves day of surgery. Remove ALL jewelry including wedding rings, body piercings,hair extensions that contain metal, nail spanish, make-up, and contact lens. You may brush your teeth the morning of surgery, but do not swallow the water. Wear your dentures and partial plates to the hospital (no adhesive). Shower the night the before. If applicable, use the CHG (chlorhexidine gluconate) soap or wipes What should I bring to the hospital? If you received a green plastic bracelet, bring it with you the day of surgery and your nurse will put it on you. Eyeglass or contact lens case If you will be spending the night, please bring personal care items and leave them in the car until you are taken to your room after surgery. Leave ALL valuables at home. If any of these instructions conflict with those you received from the surgeon, please seek clarification from your surgeon's office. DEEP BREATHING EXERCISES This exercise helps promote good air exchange and helps to prevent pneumonia after surgery. Breathe in slowly and deeply through the nose. Hold your breath for a few seconds and then exhale slowly through the mouth. Repeat this three times and then cough.Coughing helps to clear your lungs. If you have had a surgery with an incision into your abdomen or chest, press gently against your incision with a pillow or a folded blanket when you cough. Please be aware - it may not be gates to cough following some types of surgeries involving the eyes, ears, sinuses and throat. Always follow your doctor's instructions. LEG EXERCISE These exercises help promote good circulation and help to prevent blood clots after surgery. Point your toes to the ceiling and then point them to the wall. Do this slowly about 15-20 times. You may also move your feet in circles. Do the exercise that is most comfortable for you. If you have had surgery involving your shoulder or arm, we recommend you move your fingers. PRACTICING We ask that you begin practicing these exercises before your surgery. After surgery try to do both exercises at least every 2 hours during the day and early evening. SURGICAL SITE INFECTION PREVENTION What is a Surgical Site Infection? Infection can happen to the area of the body where surgery is done. This is called a surgical site infection (SSI). A SSI does not happen very often. Can SSIs be treated? Antibiotics are used to treat SSI. Some patients may need another surgery to treat the infection. The doctor will discuss treatment options with you. What are some of the things that hospitals are doing to prevent SSIs? Soap and water or alcohol hand rub are used before and after caring for each patient. Special soap is used to clean surgery workers hands and arms just before the surgery. Masks, gowns, gloves and hair covers are worn during the surgery to keep the area clean. Hair in the surgery area may be removed with clippers (not razors). A special soap that kills germs is used to clean the skin at the surgery site. Antibiotics may be given before the surgery starts. What can you do to prevent SSIs? Before surgery: You may be asked to shower or bathe with a special soap that kills germs the night before and the day of surgery. Use the soap as you were told. If you smoke, stop or cut down. Ask your doctor about ways to quit. Do not shave near where you will have surgery. Shaving can irritate the skin and make it easier to get and infection. After surgery: Be sure that the doctors and nurses clean their hands before and after touching you. Be sure your family and friends clean their hands before and after visiting you. Do not be afraid to remind them. * Care for your wound at home as told by your doctor or nurse * Call your doctor right away if you have fever, redness, increased pain, or drainage at the surgery site. Further questions? Contact the doctor, nurse or the Infection Prevention and Control department if you have any questions. PATIENT RIGHTS AND RESPONSIBILITIES As a patient at [facility], you have the right to: Receive medical care and be informed of who is taking care of you Be treated with dignity and respect Have a family member/underwriting account representative of choice and your physician notified of your admission Receive information and actively participate in decisions about your care and treatment Refuse care, treatment and services Decide who may provide your support and speak for you Access baptist and spiritual services Participate in ethical issues and questions about your care Receive private and confidential care Have appropriate assessment and management of your pain Know guest visitation restrictions or limitations Have an advance directive Access protective services Consent or refuse to participate in research studies or production or recordings, films or other images Have resolution of your complaints Receive information of hospital charges and payment methods Patient/patient underwriting account representative responsibilities are to: Provide information about health status to facilitate care, treatment and services Follow the treatment, plan, keep appointments and speak up when you do not understand the plan Respect the rights of other patients and healthcare personnel Follow organizational rules and regulations that support quality care and a safe environment Fulfill financial obligations as promptly as possible documented in this encounter [facility] 11-05-2023 Note HNO ID: [id number] Author: PAGE BUCHANAN MD Service: ? Author Type: Physician Type: Progress Notes Filed: 11/05/2023 14:48 Note Text: [facility] [place] [facility] Department of Cardiovascular Medicine SECTION [...] file. History of present illness: 68yof from [place], [place], who came to [place] today ([address]) for this patient -initiated appointment. She initially tried to schedule appt with Vascular Surgery, and she was also referred to IR (Dr. Camp), but she was ultimately referred to Vascular Medicine. She is, however, scheduled with IR on 11/11/23 (presumably for an appt with Dr. Camp, but there are no physician names clearly specified in the appt). PMHx Little Traverse Syndrome, jugular vein stenosis (asymptomatic), HLD, pelvic [...] was unremarkable. She has undergone evaluation in [facility] records available under care everywhere and [...] (FLONASE) 50 mcg/actuation nasal spray Use 1 [place] in the nose once daily. gabapentin (NEURONTIN) [...] tobacco. She reports (more content not included)... [facility] 10-08-2023 Evaluation note Encounter Date Diagnosis Assessment Notes Sep, Abnormal chest CT (ICD-10 - R93.89) [facility] Other 12-19-2023 History of Present illness Narrative* Sarah Godwin MD - 09/30/2023 3:15 PM EST [facility] E[facility] [address] [place] [id number], [address] [id number] SUBJECTIVE: Patient ID: Zaynab Zaidi is a 68 y.o. female presents today for Chief Complaint Patient presents with SNHL HPI: Zaynab Zaidi is a 68 y.o. female that presents to clinic today for follow up regarding sensorineural hearing loss. She was last seen by me on 07/22/23. At her last visit I noted enlarged right submandibular gland and CT neck was ordered. This demonstrated several findings including asymmetric enhancement within the right internal auditory canal and MRI IACs was ordered. MRI IACs demonstrated no evidence of vestibular schwannoma. Additionally, the CT neck demonstrated nodules in the upper lungs. She has not had a dedicated chest CT. The CT did not show evidence of any masses or tumorsin the submandibular glands. 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 De Leon at [facility]. She states that she still had intermittent swelling in the right side of the jaw near the site of previous surgery. She also has a sensation of something being present in the right side of the jaw, which she has been told in the past may be secondary to nerve damage. HISTORY: Past Medical History: Diagnosis Date AAA (abdominal aortic aneurysm) (CMS-HCC) Angina pectoris (CMS-HCC) Aortic aneurysm (CMS-HCC) Cataract Chest pain Chronic kidney disease stone Chronic rhinitis Dental disease implants Dysphagia, pharyngeal phase Little Traverse's syndrome Fractures left arm Headache Jugular vein stenosis Osteoporosis Pelvic congestion syndrome Peripheral vascular disease ([facility]) Seasonal allergies Visual impairment Past Surgical History: Procedure Laterality Date CATARACT EXTRACTION Bilateral 2018 CHOLECYSTECTOMY COLONOSCOPY COLONOSCOPY N/A 07/23/2018 Performed by Frank Christine DO at [facility] D[facility] 07/2013 implants Diagnostic cerebral angiogram N/A 03/31/2020 Performed by Melissa Morillo MD at [facility] CARDIAC CATH LABS DIAGNOSTIC VENOGRAM OF IVC AND ILEOCABLE, LEFT RENAL VEIN, SELECTIVE LEFT OVARIAN VEIN CONTRAST ANDIVUS VENOGRAMS N/A 07/25/2023 Performed by Erendira Armijo DO at [facility] SPECIAL PROC KIDNEY STONE SURGERY 2018? KNEE CARTILAGE SURGERY OTHER SURGICAL HISTORY 08/31/2020 cranial base ( cranial styloidectomy) 05/2020 also OTHER SURGICAL HISTORY 06/18/2023 venogram TUBAL LIGATION Vascular Invasive Diagnostic venogram with IVUS and the ability to measure pressure gradients Bilateral 06/18/2023 Performed by Erendira Armijo DO at [facility] CARDIAC CATH LABS Family History Problem Relation [...] Types: Cigarettes Quit date: 02/08/2000 Years since quittin.6 Passive exposure: Past Smokeless tobacco: Never Vaping Use Vaping Use: Never used Substance and Sexual Activity Alcohol use: Yes Comment: 2 per month Drug use: No Sexual activity: Defer Other Topics Concern Coffee Not Asked Tea Not Asked Carbonated Beverages Not Asked Chocolate Not Asked Caffeine Use Yes Social History Narrative Not on file Social Determinants of Health Financial Resource Strain: Not on file Food Insecurity: No Food Insecurity (08/20/2023) Hunger Screening Food Insecurity - Worry: Never True Food Insecurity - Inability: Never True Transportation Needs: Not on file Physical Activity: Not on file Stress: Not on file Social Connections: Not on file Interpersonal Safety: Not on file Allergies Allergen Reactions Clindamycin Shortness Of Breath and Rash Codeine GI Disturbance Doxycycline Hyclate Rash Current Outpatient Medications Medication Sig Dispense Refill atorvastatin (LIPITOR) 20 mg tablet Take 1 tablet (20 mg total) by mouth in the morning for 360 days. 90 tablet 3 fluticasone (FLONASE) 50 mcg/actuation nasal spray Administer 1 spray into each nostril in the morning. acetaminophen (TYLENOL EXTRA STRENGTH) 500 mg tablet Take 1 tablet (500 mg total) by mouth every 6 (six) hours as needed for pain. (Patient not taking: Reported on 08/05/2023) gabapentin (NEURONTIN) 300 mg capsule Take 1 capsule (300 mg total) by mouth 3 (three) times a day Indications: neuropathic pain. (Patient not taking: Reported on 08/05/2023) HYDROcodone-acetaminophen (NORCO) 5-325 mg per tablet Take 1 tablet by mouth every 6 (six) hours asneeded. (Patient not taking: Reported on 08/05/2023) ibuprofen (ADVIL,MOTRIN) 200 mg tablet Take 2 tablets (400 mg total) by mouth every 6 (six) hours as needed for pain. (Patient not taking: Reported on 08/05/2023) loratadine-pseudoephedrine (LORATADINE-D) 5-120 mg tablet extended release 12 hr Take 1 tablet by mouth every 12 (twelve) hours. 1/2 tablet- keeps right ear open (Patient not taking: Reported on 08/05/2023) montelukast (SINGULAIR) 10 mg tablet Take 1 tablet (10 mg total) by mouth nightly Indications: seasonal runny nose. (Patient not taking: Reported on 08/05/2023) No current facility-administered medications for this visit. REVIEW OF SYSTEMS: Review of Systems Constitutional: Negative for chills and fever. HENT: Positive for hearing loss and tinnitus. Negative for congestion, ear discharge, ear pain, postnasal drip, rhinorrhea, sinus pressure and sinus pain. Respiratory: Negative for cough and shortness of breath. Data Reviewed: PHYSICAL EXAMINATION: Temp 37.1 C (98.7 F) Ht 170.2 cm (5' 7 ) Wt 58.1 kg (128 lb) BMI 20.05 kg/m Constitutional: General Appearance: Healthy, alert, cooperative, and in no distress Ability to Communicate: Normal ability to communicate and Voice normal Head/Face: Inspection of Head/Face: Normocephalic without obvious abnormality, Atraumatic appearance, and Sinuses non-tender Facial Nerve: Facial nerve symmetrical and intact Salivary Glands: Warthin's duct on the right slightly martinez than the left, right submandibular duct slightly martinez than the left Eyes: No gross abnormalities, EOMI, and No Nystagmus Ears: External Ear: Normal bilateral External Auditory Canal: Normal bilateral Tympanic Membranes: Normal bilateral Middle Ear: Normal bilateral Hearing: Normal bilateral Nose: External Nose: Normal Septum: Midline septum Mucosa/Turbinates: Normal inferior turbinate and Normal mucosa Oral Cavity: Normal lips, Normal teeth, Normal gums, Normal floor of mouth, Normal oral mucosa, andNormal anterior tongue Oropharynx: Normal mucosa, Normal soft palate, Normal hard palate, Normal uvula, Normal tonsils, and Normal Vallecula Nasopharynx: Mucosa appearance normal, Adenoids normal, Eustachian tubes normal, Fossa of Rosenmuller normal, and Posterior choanae normal Hypopharynx: Pharyngeal green normal, Pyriform sinuses normal, and Base of tongue normal Larynx: Mobility of larynx normal, Epiglottis normal, True vocal cords normal bilateral, False vocal cords normal bilateral, and Arytenoids normal bilateral TMJ: No pain, crepitus, or trismus right and left Neck: Neck supple, No adenopathy, Thyroid normal in size without nodules or tenderness, No palpableneck masses, and Carotids normal Respiratory: No stridor, Normal respiratory effort and No use of accessory muscles Cardiovascular: Regular rate and Regular rhythm Neurologic: Patient is alert and oriented x3 with normal affect and grossly normal cranial nerves ASSESSMENT/PLAN: Sheri was seen today for snhl. Diagnoses and all orders for this visit: Submandibular gland swelling Chronic sialoadenitis Today's examination findings were discussed with the patient/patient's parent or guardian. Recommendations for treatment were provided including the following: We discussed the incidental pulmonary nodule findings from the CT neck. I recommended consulting PCP regarding incidental CT neck finding of lung nodules or obtain referral to a local commercial drafter from her PCP. We discussed endoscopic surgical intervention involving endoscoping approach to the right Somers'sduct for dilation and steroid irrigation and for assessment for any other abnormalities. I recommended right sialendoscopy for therapeutic dilation of the Warthin's duct on the right and possible stone retrieval and infiltration of steroid. Indications, risks, benefits, and alternatives were discussed. Patient may call Oliver at [phone] to schedule surgery. We discussed that she may benefit from physical therapy for the right temporomandibular joint. Follow up post op. The patient will contact my office if there are any additional questions or concerns: . Non-emergent messages received through [employer]sum may take up to 2 business days for a response. Scribe Statement: Scribed for and in the presence of Sarah Godwin MD by Deandre Goodwin. 09/30/23 4:00 PM Provider Statement: I Sarah Godwin MD personally performed the services described in the documentation as described by the above named scribe in my presence. It is both accurate and complete at the time of final signature. Dr. Sarah Godwin 09/30/2023 7:25 AM Counseling: The following elements of medical decision making were considered during this visit: Reviewed and summarized previous records. The patient was counseled regarding prognosis, risks and benefits of treatment options, impressions, importance of compliance with treatment and risk factor reductions. Thepatient verbalized understanding and agreement to the plan. Total time spent was 15 minutes: Preparing to see the patient (e.g., review of tests) Obtaining and/or reviewing separately obtained history Performing a medically appropriate examination and/or evaluation Counseling and educating the patient/family/caregiver Documenting clinical information in the electronic or other health record Independently interpreting results (not separately reported) and communicating results to the patient/family/caregiver Electronically signed by Sarah Godwin MD Please note that parts of this chart were generated using voice recognition M*DC[employer] dictation software. Although every effort was made to ensure the accuracy of this automated fine craft artist, some errors in fine craft artist may have occurred. documented [facility] Instructions* Patient Instructions* Deandre Goodwin - 09/30/2023 3:15 PM EST Today's examination findings were discussed with the patient/patient's parent or guardian. Recommendations for treatment were provided including the following: We discussed the incidental pulmonary nodule findings from the CT neck. I recommended consulting PCP regarding incidental CT neck finding of lung nodules or obtain referral to pulmonary medicine fromher PCP. We discussed endoscopic surgical intervention to dilate and irrigate the salivary duct on the rightside and look for any other abnormalities. I recommended right sialendoscopy for therapeutic dilation of the Warthin's duct on the right and possible stone retrieval and infiltration of steroid. Indic ations, risks, benefits, and alternatives were discussed. Patient may call Oliver at [phone] to schedule surgery. We discussed that she may benefit from physical therapy for the right temporomandibular joint. Follow up post op. The patient will contact my office if there are any additional questions or concerns: . Non-emergent messages received through Conferensum may take up to 2 business days for a response. documented in this encounterSt [facility] HospitalL[facility] [id number] Evaluation note* Encounter Date Diagnosis Assessment Notes Treatment Notes Treatment Clinical Notes Aug, Pelvic congestion syndrome (ICD-10 - N94.89) Referral entered as pt request. Aug, Renal vein occlusion (ICD-10 - I82.3) Referral entered to Dr. Camp. [facility] Other [id number] Miscellaneous Notes* Telephone Encounter - Shanda Mays [...] numbers needed . * Telephone Encounter - JefrypepperLaura - 08/22/2023 4:20 PM EST Reason for call: Mrs Zaidi called and would like to re-schedule an appointment with mani Home and cell number: [phone] Diagnosis: pelvic congestion syndrome - renal vein stenosis Laura Jay [facility]* Encounter Date Diagnosis Assessment [...] Weight loss noted, encouraged small frequent meals. [facility] Other 09-20-2023 Evaluation note* Encounter Date Diagnosis Assessment Notes Treatment Notes Treatment Clinical Notes Jun, Neuropathic pain (ICD-10 - M79.2) Previously on med. 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 Declines referral back to ENT for potential R PE tube. Discussed nasal spray and OTC decongestants that could help discomfort. [facility] Other 08-25-2023 Evaluation note* Encounter Date Diagnosis Assessment Notes Treatment Notes Treatment Clinical Notes May, Thrush (ICD-10 - B37.0) Finish nystatin as prescribed May, Abdominal 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, unspecified part (ICD-10 - I71.40) Continue screening a Job[employer]. [facility] Other 08-17-2023 Evaluation note* Encounter Date Diagnosis [...] understanding and is agreeable to treatment plan [facility] Other 05-02-2023 Evaluation note* Encounter Date Diagnosis [...] understanding and is agreeable with treatment plan. [facility] Other 05-02-2023 Evaluation note* Encounter Date Diagnosis Assessment Notes Treatment Notes Treatment Clinical Notes February, Nephrolithiasis (ICD-10 - N20.0) Discussed differential - agrees to imaging and She is established with Dr. Monroe. They advised she go to ER or come here for imaging and assessment. [facility] Other 02-10-2023 Evaluation note* Encounter Date Diagnosis [...] understanding and is agreeable to treatment plan [facility] Other 01-19-2023 Evaluation note* Encounter Date Diagnosis Assessment Notes Treatment Notes Treatment Clinical Notes Oct, Allergic reaction, subsequent encounter (ICD-10 - T78.40XD) Zaynab Hunter IM [facility] Other 10-16-2022 Evaluation note* Encounter Date Diagnosis [...] understanding and is agreeable to treatment plan [facility] Other 12-03-2021 Evaluation note* Encounter Date Diagnosis Assessment Notes Treatment Notes Treatment Clinical Notes Sep, Herpes zoster without complication (ICD-10 - B02.9) Take the valacyclovir as prescribed until gone. Use the viscous lidocaine to the rash as needed for pain. Follow-up with your family physician if no improvement in 2 to 3 days. [facility] Other 10-17-2021 Evaluation note* Encounter Date Diagnosis Assessment Notes Treatment Notes Treatment Clinical Notes Jul, Herpes zoster without complication (ICD-10 - B02.9) [facility] Other Evaluation noteNo InformationNort O[employer] Other Evaluation note* Diagnosis Nutcracker phenomenon of renal vein- Primary [facility]* Diagnosis Nutcracker phenomenon of renal vein- Primary Family history of aneurysm Family history of other condition Aortic ectasia, abdominal (HCC) Abdominal aortic ectasia documented in [facility] encounter [facility]* Diagnosis Nutcracker phenomenon of renal vein- Primary Preop testing Preoperative examination, unspecified Nutcracker phenomenon of renal vein Preop testing Preoperative examination, unspecified [facility] Diagnosis 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 Preop testing Preoperative examination, unspecified [facility]* Diagnosis Screening for genitourinary condition Screening for other and unspecified genitourinary condition Nutcracker phenomenon of renal vein Preop testing Preoperative examination, unspecified [facility]* Diagnosis Screening for genitourinary condition Screening for other and unspecified genitourinary condition Nutcracker phenomenon of renal vein Preop testing Preoperative examination, unspecified [facility]* Diagnosis Nutcracker phenomenon of renal vein- Primary Abnormal coagulation profile Nutcracker phenomenon of renal vein [facility]* Diagnosis Preop examination- Primary Preoperative examination, unspecified 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 [facility]* Diagnosis Encounter for aftercare following kidney transplant- Primary Aftercare following organ transplant Malnutrition of moderate degree (HCC) Malnutrition of moderate degree documented [facility] encounter [facility]* Diagnosis Flank pain- Primary Abdominal pain, unspecified site documented [facility] this encounter [facility]* Diagnosis Preop examination- Primary Preoperative examination, unspecified 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 Other disorder of muscle, ligament, and fascia Other hyperlipidemia Ovarian varices Nutcracker phenomenon of renal vein Narcotic drug use Sinus bradycardia on ECG Other specified cardiac dysrhythmias Screening for genitourinary condition Screening for other and unspecified genitourinary condition documented [facility] this encounter [facility]* Diagnosis Preop examination- Primary Preoperative examination, unspecified 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 Other disorder of muscle, ligament, and fascia Other hyperlipidemia Ovarian varices Nutcracker phenomenon of renal vein Narcotic drug use Sinus bradycardia on ECG Other specified cardiac dysrhythmias High-tone pelvic floor dysfunction- Primary Other specified disorders of female genital organs 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 Unspecified symptom associated with female genital organs documented [facility] encounter [facility]* Diagnosis Preop examination- Primary Preoperative examination, unspecified 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 Other disorder of muscle, ligament, and [...] and myositis, unspecified documented [facility] this encounter [facility]* Diagnosis Preop examination- Primary Preoperative examination, unspecified 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 Other disorder of muscle, ligament, and fascia Other hyperlipidemia Ovarian varices Nutcracker phenomenon of renal vein Narcotic drug use Sinus bradycardia on ECG Other specified cardiac dysrhythmias High-tone pelvic floor dysfunction Other specified disorders of female genital organs documented [facility] this encounter [facility]* Diagnosis Preop examination- Primary Preoperative examination, unspecified 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 Other disorder of muscle, ligament, and fascia Other hyperlipidemia Ovarian varices Nutcracker phenomenon of renal vein Narcotic drug use Sinus bradycardia on ECG Other specified cardiac dysrhythmias High-tone pelvic floor dysfunction- Primary Other specified disorders of female genital organs documented [facility] encounter [facility]* Diagnosis Preop examination- Primary Preoperative examination, unspecified 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 Other disorder of muscle, ligament, and fascia Other hyperlipidemia Ovarian varices Nutcracker phenomenon of renal vein Narcotic drug use Sinus bradycardia on ECG Other specified cardiac dysrhythmias High-tone pelvic floor dysfunction Other specified disorders of female genital organs documented [facility] encounter [facility]* Diagnosis Preop examination- Primary Preoperative examination, unspecified 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 Other disorder of muscle, ligament, and fascia Other hyperlipidemia Ovarian varices Nutcracker phenomenon of renal vein Narcotic drug use Sinus bradycardia on ECG Other specified cardiac dysrhythmias Pelvic pain in female- Primary Unspecified symptom associated with female genital organs documented [facility] encounter [facility]* Diagnosis Pulmonary nodule- Primary Other diseases of lung, not elsewhere classified [facility] Diagnosis Preop examination- Primary Preoperative examination, unspecified 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 Other disorder of muscle, ligament, and fascia Other hyperlipidemia Ovarian varices Nutcracker phenomenon of renal vein Narcotic drug use Sinus bradycardia on ECG Other specified cardiac dysrhythmias Abnormal finding of diagnostic imaging- Primary Other nonspecific (abnormal) findings on radiological and other examinations of body structure documented [facility] this encounter [facility]* Diagnosis Submandibular gland swelling- Primary Chronic sialoadenitis Sensorineural hearing loss (SNHL), bilateral [facility] Diagnosis Chronic sialoadenitis- Primary [facility]* Diagnosis Submandibular gland swelling Chronic sialoadenitis Preop testing- Primary Unspecified pre-operative examination Hearing disorder retrocochlear Unspecified sensorineural hearing loss Submandibular gland swelling Chronic sialoadenitis documented [facility]* Diagnosis Submandibular gland swelling- Primary Chronic sialoadenitis documented [facility]* Diagnosis Hyperlipidemia, unspecified hyperlipidemia type- Primary documented in this encounter [facility] SystemHistory general Narrative - Reported* Type Description Date Medical History Other seasonal allergic rhinitis Medical History shoalwater syndrome Surgical History cholecystectomy Surgical History arthroscopic knee surgery Surgical History oral surgery Surgical History colonoscopy Surgical History tubal ligation Surgical History styloidectomy Hospitalization History see above [facility] Other History general Narrative - Reported* Type Description Date Medical History Other seasonal allergic rhinitis Medical History shoalwater syndrome Medical History shingles Surgical History cholecystectomy Surgical History arthroscopic knee surgery Surgical History oral surgery Surgical History colonoscopy Surgical History tubal ligation Surgical History styloidectomy Hospitalization History see above [facility] Other Histhrs general Narrative - Reported* Type Description Date Medical History Other seasonal allergic rhinitis Medical History shoalwater syndrome Medical History shingles Medical History Renal stone Surgical History cholecystectomy Surgical History arthroscopic knee surgery Surgical History oral surgery Surgical History colonoscopy Surgical History tubal ligation Surgical History styloidectomy b/l Hospitalization History see above [facility] Other Hisqurz general Narrative - Reported* Type Description Date Medical History Other seasonal allergic rhinitis Medical History shoalwater syndrome Medical History shingles Medical History Renal stone Medical History Pelvic venous congestive syndrom e Surgical History cholecystectomy Surgical History arthroscopic knee surgery Surgical History oral surgery Surgical History colonoscopy Surgical History tubal ligation Surgical History styloidectomy b/l Hospitalization History see above [facility] Other Histmwg general Narrative - Reported* Type Description Date Medical History Other seasonal allergic rhinitis Medical History shoalwater syndrome Medical History shingles Medical History Renal stone Medical History Pelvic venous congestive syndrom e Surgical History cholecystectomy Surgical History arthroscopic knee surgery Surgical History oral surgery Surgical History colonoscopy Surgical History tubal ligation Surgical History styloidectomy b/l Surgical History Venogram Hospitalization History see above [facility] Other InstructionsNot on filedocumented in this encounter [facility] SystemInstructionsNot on filedocumented in this encounter [facility] SystemInstructionsNot on filedocumented in this encounter [facility] Outpatient Procedure (Routine) - Authorized Specialty Diagnoses / Procedures Referred By Contac t Referred To Contact [facility] [place] Diagnoses Nutcracker phenomenon of renal vein Procedures US RENAL ARTERY CINTHYA VAS LAB DUP-SCAN ARTL STEVAN ABDL/PEL/SCROT&/RPR ORGN COM Rina Fox MD [address] [place] [address] [facility] [place] [address] [place] [address] Referral ID Status Reason Start Date Expiration Date Visits Requested Visits Authorized [id number] Authorized Auto-Generat ed Referral 12/12/2023 12/11/2024 1 1 [facility] for referral (narrative)* Outpatient Procedure (Routine) - Authorized Specialty Diagnoses / Procedures Referred By Contac t Referred To Contact [facility] [place] Diagnoses Nutcracker phenomenon of renal vein Procedures US RENAL VENOUS CINTHYA VAS LAB DUP-SCAN ARTL STEVAN ABDL/PEL/SCROT&/RPR ORGN COM Rina Fox MD [address] [place] [address] [facility] [place] [address] [place] [address] Referral ID Status Reason Start Date Expiration Date Visits Requested Visits Authorized [id number] Authorized Auto-Generat ed Referral 12/17/2023 12/16/2024 1 1 [facility] for referral (narrative)* Outpatient Procedure (Routine) - Authorized Specialty Diagnoses / Procedures Referred By Contac t Referred To Contact [facility] [place] Diagnoses Nutcracker phenomenon of renal vein Procedures US VENOUS INCOMPETENCY CINTHYA VAS LAB DUP-SCAN XTR VEINS COMPLETE BILATERAL STUDY Rina Fox MD [address] [place] [address] [facility] [place] [address] [place] [address] Referral ID Status Reason Start Date Expiration Date Visits Requested Visits Authorized [id number] Authorized Auto-Generat ed Referral 12/17/2023 12/16/2024 1 1 [facility] Outpatient Procedure (Routine) - Authorized Specialty Diagnoses / Procedures Referred By Contac t Referred To [facility] Diagnoses Nutcracker phenomenon of renal vein Preop testing Procedures ECG COMPLETE ECG ROUTINE ECG W/LEAST 12 LDS W/I&R Kira Eduardo APRN.EXPELLER WORKER [address] [place] [address] [facility] [place] [address] [place] [address] Referral ID Status Reason Start Date Expiration Date Visits Requested Visits Authorized [id number] Authorized Auto-Generat ed Referral 12/19/2023 12/18/2024 1 1 [facility] Summary Purpose Family History No Family History [...] By Contac t Referred To Contact Diagnoses Preop testing Procedures ECG 12 lead Ibis Rodriguez MD [address] [facility], [address] [place] [address] Referral ID Status Reason Start Date Expiration Date V isits Requested Visits Authorized [id number] Pending Review 11/12/2023 11/11/2024 1 1 Specialty Diagnoses / Procedures Referred By Contac t Referred To Contact Diagnoses Pulmonary nodule Procedures CT chest wo IV contrast Tessa Steven, DO [address] [place] [address] Referral ID Status Reason Start Date Expiration Date V isits Requested Visits Authorized [id number] Pending Review 05/02/2025 10/29/2025 1 1 Specialty Diagnoses / Procedures Referred By Contac t Referred To Contact [facility] Diagnoses High-tone pelvic floor dysfunction Augustina Vargas MD [address] [place], [place] [id number] [place] [address] Referral ID Status Reason Start Date Expiration Date V isits Requested Visits Authorized [id number] Authorized 05/28/2024 08/26/2024 1 1 Specialty Diagnoses / Procedures Referred By Contac t Referred To Contact [facility] Diagnoses High-tone pelvic floor dysfunction Procedures CONSULT TO PHYSICAL THERAPY PHYSICAL THERAPY EVALUATION HIGH COMPLEX 45 MINS Augustina Vargas MD [address] [place] [address] [facility] [place] [address] Referral ID Status Reason Start Date Expiration Date Visits Requested Visits Authorized [id number] Authorized PCP Requested Referral Auto-Generate d Referral 05/27/2024 05/27/2025 99 99 Specialty Diagnoses / Procedures Referred By Contac t Referred To Contact Diagnoses High-tone pelvic floor dysfunction Augustina Vargas MD [address] [place], [place] [id number] Referral ID Status Reason Start Date Expiration Date Visits Re quested Visits Authorized [id number] Closed 1 1 Specialty Diagnoses / Procedures Referred By Contac t Referred To Contact Diagnoses Nutcracker phenomenon of renal vein Procedures REFER TO PACC - PRE ANESTHESIA CONSULTATION CLINIC OFFICE/OUTPATIENT [facility] 60 MINUTES Chip Carr MD [address] [place], [place] [id number] Referral ID Status Reason Start Date Expiration Date Visits Requested Visits Authorized [id number] Authorized PCP Requested Referral 02/25/2024 12/29/2024 1 1 Specialty Diagnoses / Procedures Referred By Contac t Referred [facility] Diagnoses Nutcracker phenomenon of renal vein Procedures ECG COMPLETE ECG ROUTINE ECG W/LEAST 12 LDS W/I&R Chip Carr MD [address] [place] [address] [facility] [place] [address] [place] [address] Referral ID Status Reason Start Date Expiration Date Visits Requested Visits Authorized [id number] Pending Review Auto-Generat ed Referral 02/25/2024 12/29/2024 1 1 Specialty Diagnoses / Procedures Referred By Contac t Referred To Contact Urology Diagnoses Nutcracker phenomenon of renal vein Procedures CONSULT TO UROLOGY OFFICE/OUTPATIENT [facility] 60 MINUTES Rina Fox MD [address] [place] [address] Referral ID Status Reason Start Date Expiration Date Visits Requested Visits Authorized [id number] Authorized PCP Requested Referral 12/18/2023 12/17/2024 1 1 Reason *FU 10/22 [place] office - abnormal CT of chest, send notes recently from Dr. Godwin. Diagnosis [address] (R 93.89) Referral Organization [facility] [employer] donny Referring Provider First Name Ammon Referring Provider Last Name Lance Referring Provider Specialty [employer] Referred Organization [facility] Referred Provider Tessa Steven Referred Address ,[place], [place],[address] Referred Provider Specialty Pulmonary Di seases Referral Priority Routine General Notes Thea Wilson 04:43:51 PM >received today Thea Wilson 10/15/2023 04:45:29 PM >attachments made, notes locked, referral faxed to [place] office Clinical Notes p: [phone] f: [phone] Reason Pt has all records, images with [facility]. Pt has called [facility] and they recommend she start w Dr. Camp for assessment Diagnosis 1 Pelvic congestion sy ndrome (N94.89) Referral Organization [facility] [employer] donny Referring Provider First Name Ammon Referring Provider Last Name Lance Referring Provider Specialty [facility] Rad Referred Organization [facility] Referred Provider Shanell Camp Referred Address [address] [place], [place],[address] Referred Provider Specialty Diagnostic R adiology Referral Priority Routine Reason 12/18/22 @ 2:20 it tiera palms and soles, drug reaction on abd. please send recent derm note with referral. Diagnosis 1 Allergic reaction, s ubsequent encounter (T78.40XD) Referral Organization [facility] Kenneth hines Referring Provider First Name Ammon Referring Provider Last Name Lance Referring Provider Specialty Family Medi cine Referred Organization [facility] Referred Provider GaryWill Referred Address ,[place], [place],[address] Referred Provider Specialty Allergy/Immu nology Referral Priority [...] section and content) DATE CREATED AUTHOR 08/08/2018 [facility] DATE CREATED AUTHOR AUTHOR'S ORGANIZ ATION 02/24/2022 [facility] DATE CREATED AUTHOR AUTHOR'S ORGANIZ ATION 02/26/2023 [facility] DATE CREATED AUTHOR AUTHOR'S ORGANIZ ATION 02/18/2024 [facility] DATE CREATED AUTHOR AUTHOR'S ORGANIZ ATION 05/04/2024 [facility] DATE CREATED AUTHOR AUTHOR'S ORGANIZ ATION 05/11/2024 [facility] DATE CREATED AUTHOR AUTHOR'S ORGANIZ ATION 06/05/2024 [facility] EP[facility] DATE CREATED AUTHOR AUTHOR'S ORGANIZ ATION 07/27/2024 [facility] DATE CREATED AUTHOR AUTHOR'S ORGANIZ ATION 11/03/2024 [facility] DATE CREATED AUTHOR AUTHOR'S ORGANIZ ATION [facility] REASON FOR VISIT (unrecogniz ed section and content) Reason Comments Appointment Reason Comments Patient Question Reason Comments Consult Reason Comments Consult Specialty Diagnoses / Procedures Referred By Nori moore Referred To Contact 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 [address] Referral ID Status Reason Start Date Expiration Date V isits Requested Visits Authorized [id number] Closed PCP Requested Referral 12/18/2023 12/17/2024 1 1 Reason Comments Patient Update Reason Comments Surgery Cancelled Reason Comments Pre-Op Exam Reason Comments Cystoscopy-1 Stent Extraction Reason Comments Follow Up Reason Comments Pelvic Pain Reason Comments botox auth Reason Comments Pelvic Pain Specialty Diagnoses / Procedures Referred By Contac t Referred To Contact [facility] Diagnoses High-tone pelvic floor dysfunction Augustina Vargas MD [id number] [place] [address] [facility] [address] Referral ID Status Reason Start Date Expiration Date Visits Re quested Visits Authorized [id number] Closed 05/28/2024 08/26/2024 1 1 Reason Comments Medication Problem Reason Comments Med Change Request Reason Comments Other Patient Update Reason Comments Pulmonary Nodules 4 month follow up Reason Comments Orders PFPT Reason Comments SNHL Reason Comments S/P submandibular gland dilation Reason Comments Post-op Follow-up Reason Onset Date Comments Med Refill 07/02/2024 Reason Comments Follow-up Source Comments (unrecognize d section and content) In the event this informatio n is protected by the Federal Confidentiality of Alcohol and Drug Abuse Patient Records regulations: The Federal rules restrict any use of the information to criminally investigate or prosecute any alcohol or drug abuse patient.[facility] the event this information is protected by the Federal Confidentiality of Alcohol and Drug Abuse Patient Records regulations: The Federal rules restrict any use of the information to criminally investigate or prosecute any alcohol or drug abuse patient.[facility] HospitalIn the event this information is protected by the Federal Confidentiality of Alcohol and Drug Abuse Patient Records regulations: The Federal rules restrict any use of the information to criminally investigate or prosecute any alcohol or drug abuse patient.[facility] Hospital[facility] the event this information is protected by the Federal Confidentiality of Alcohol and Drug Abuse Patient Records regulations: The Federal rules restrict any use of the information to criminally investigate or prosecute any alcohol or drug abuse patient.[facility] HospitalIn the event this information is protected by the Federal Confidentiality of Alcohol and Drug Abuse Patient Records regulations: The Federal rules restrict any use of the information to criminally investigate or prosecute any alcohol or drug abuse patient.[facility] HospitalIn the event this information is protected by the Federal Confidentiality of Alcohol and Drug Abuse Patient Records regulations: The Federal rules restrict any use of the information to criminally investigate or prosecute any alcohol or drug abuse patient.[facility] HospitalIn the event this information is protected by the Federal Confidentiality of Alcohol and Drug Abuse Patient Records regulations: The Federal rules restrict any use of the information to criminally investigate or prosecute any alcohol or drug abuse patient.[facility] HospitalIn the event this information is protected by the Federal Confidentiality of Alcohol and Drug Abuse Patient Records regulations: The Federal rules restrict any use of the information to criminally investigate or prosecute any alcohol or drug abuse patient.[facility] HospitalIn the event this information is protected by the Federal Confidentiality of Alcohol and Drug Abuse Patient Records regulations: The Federal rules restrict any use of the information to criminally investigate or prosecute any alcohol or drug abuse patient.[facility] HospitalIn the event this information is protected by the Federal Confidentiality of Alcohol and Drug Abuse Patient Records regulations: The Federal rules restrict any use of the information to criminally investigate or prosecute any alcohol or drug abuse patient.[facility] HospitalIn the event this information is protected by the Federal Confidentiality of Alcohol and Drug Abuse Patient Records regulations: The Federal rules restrict any use of the information to criminally investigate or prosecute any alcohol or drug abuse patient.[facility] HospitalIn the event this information is protected by the Federal Confidentiality of Alcohol and Drug Abuse Patient Records regulations: The Federal rules restrict any use of the information to criminally investigate or prosecute any alcohol or drug abuse patient.[facility] HospitalIn the event this information is protected by the Federal Confidentiality of Alcohol and Drug Abuse Patient Records regulations: The Federal rules restrict any use of the information to criminally investigate or prosecute any alcohol or drug abuse patient.[facility] HospitalIn the event this information is protected by the Federal Confidentiality of Alcohol and Drug Abuse Patient Records regulations: The Federal rules restrict any use of the information to criminally investigate or prosecute any alcohol or drug abuse patient.[facility] HospitalIn the event this information is protected by the Federal Confidentiality of Alcohol and Drug Abuse Patient Records regulations: The Federal rules restrict any use of the information to criminally investigate or prosecute any alcohol or drug abuse patient.[facility] HospitalIn the event this information is protected by the Federal Confidentiality of Alcohol and Drug Abuse Patient Records regulations: The Federal rules restrict any use of the information to criminally investigate or prosecute any alcohol or drug abuse patient.[facility] HospitalIn the event this information is protected by the Federal Confidentiality of Alcohol and Drug Abuse Patient Records regulations: The Federal rules restrict any use of the information to criminally investigate or prosecute any alcohol or drug abuse patient.[facility] HospitalIn the event this information is protected by the Federal Confidentiality of Alcohol and Drug Abuse Patient Records regulations: The Federal rules restrict any use of the information to criminally investigate or prosecute any alcohol or drug abuse patient.[facility] HospitalIn the event this information is protected by the Federal Confidentiality of Alcohol and Drug Abuse Patient Records regulations: The Federal rules restrict any use of the information to criminally investigate or prosecute any alcohol or drug abuse patient.[facility] HospitalIn the event this information is protected by the Federal Confidentiality of Alcohol and Drug Abuse Patient Records regulations: The Federal rules restrict any use of the information to criminally investigate or prosecute any alcohol or drug abuse patient.[facility] HospitalIn the event this information is protected by the Federal Confidentiality of Alcohol and Drug Abuse Patient Records regulations: The Federal rules restrict any use of the information to criminally investigate or prosecute any alcohol or drug abuse patient.[facility] HospitalIn the event this information is protected by the Federal Confidentiality of Alcohol and Drug Abuse Patient Records regulations: The Federal rules restrict any use of the information to criminally investigate or prosecute any alcohol or drug abuse patient.[facility] HospitalIn the event this information is protected by the Federal Confidentiality of Alcohol and Drug Abuse Patient Records regulations: The Federal rules restrict any use of the information to criminally investigate or prosecute any alcohol or drug abuse patient.[facility] HospitalIn the event this information is protected by the Federal Confidentiality of Alcohol and Drug Abuse Patient Records regulations: The Federal rules restrict any use of the information to criminally investigate or prosecute any alcohol or drug abuse patient.[facility] HospitalIn the event this information is protected by the Federal Confidentiality of Alcohol and Drug Abuse Patient Records regulations: The Federal rules restrict any use of the information to criminally investigate or prosecute any alcohol or drug abuse patient.[facility] HospitalIn the event this information is protected by the Federal Confidentiality of Alcohol and Drug Abuse Patient Records regulations: The Federal rules restrict any use of the information to criminally investigate or prosecute any alcohol or drug abuse patient.[facility] HospitalIn the event this information is protected by the Federal Confidentiality of Alcohol and Drug Abuse Patient Records regulations: The Federal rules restrict any use of the information to criminally investigate or prosecute any alcohol or drug abuse patient.[facility] HospitalIn the event this information is protected by the Federal Confidentiality of Alcohol and Drug Abuse Patient Records regulations: The Federal rules restrict any use of the information to criminally investigate or prosecute any alcohol or drug abuse patient.[facility] HospitalIn the event this information is protected by the Federal Confidentiality of Alcohol and Drug Abuse Patient Records regulations: The Federal rules restrict any use of the information to criminally investigate or prosecute any alcohol or drug abuse patient.[facility] HospitalIn the event this information is protected by the Federal Confidentiality of Alcohol and Drug Abuse Patient Records regulations: The Federal rules restrict any use of the information to criminally investigate or prosecute any alcohol or drug abuse patient.[facility] HospitalIn the event this information is protected by the Federal Confidentiality of Alcohol and Drug Abuse Patient Records regulations: The Federal rules restrict any use of the information to criminally investigate or prosecute any alcohol or drug abuse patient.[facility] HospitalIn the event this information is protected by the Federal Confidentiality of Alcohol and Drug Abuse Patient Records regulations: The Federal rules restrict any use of the information to criminally investigate or prosecute any alcohol or drug abuse patient.[facility] HospitalIn the event this information is protected by the Federal Confidentiality of Alcohol and Drug Abuse Patient Records regulations: The Federal rules restrict any use of the information to criminally investigate or prosecute any alcohol or drug abuse patient.[facility] HospitalIn the event this information is protected by the Federal Confidentiality of Alcohol and Drug Abuse Patient Records regulations: The Federal rules restrict any use of the information to criminally investigate or prosecute any alcohol or drug abuse patient.[facility] HospitalIn the event this information is protected by the Federal Confidentiality of Alcohol and Drug Abuse Patient Records regulations: The Federal rules restrict any use of the information to criminally investigate or prosecute any alcohol or drug abuse patient.[facility] Care Teams (unrecognized sec tion and content) Barrel Maker Relationship Specialty Start Date End Date Ammon Lucas MD [address] [place] [address] Referring Family Medicine 09/08/23 Barrel Maker Relationship Specialty Start Date End Date Ammon Lucas MD [address] [place] [address] Referring Family Medicine 09/08/23 Barrel Maker Relationship Specialty Start Date End Date Ammon Lucas MD [address] [place] [facility] [address] PCP - General Family Medicine 12/18/23 Ammon Lucas MD [address] [place] [facility] [place] [address] Referring Family Medicine 09/08/23 Barrel Maker Relationship Specialty Start Date End Date Ammon Lucas MD [address] [place] [facility] [address] PCP - General Family Medicine 12/18/23 Ammon Lucas MD [address] [place] [facility] [place] [address] Referring Family Medicine 09/08/23 Barrel Maker Relationship Specialty Start Date End Date Ammon Lucas MD [address] [place] [facility] [address] PCP - General Family Medicine 12/18/23 Ammon Lucas MD [address] [place] [facility] [place] [address] Referring Family Medicine 09/08/23 Barrel Maker Relationship Specialty Start Date End Date Ammon Lucas MD [address] [place] [facility] [address] PCP - General Family Medicine 12/18/23 Ammon Lucas MD [address] [place] [facility] [place] [address] Referring Family Medicine 09/08/23 Barrel Maker Relationship Specialty Start Date End Date Ammon Lucas MD [address] [place] [facility] [place] [address] PCP - General Family Medicine 12/18/23 Ammon Lucas MD [address] [place] [facility] [place] [address] Referring Family Medicine 09/08/23 Barrel Maker Relationship Specialty Start Date End Date Ammon Lucas MD [address] [place] [facility] [address] PCP - General Family Medicine 12/18/23 Ammon Lucas MD [address] [place] [facility] [place] [address] Referring Family Medicine 09/08/23 Barrel Maker Relationship Specialty Start Date End Date Ammon Lucas MD [address] [place] [facility] [address] PCP - General Family Medicine 12/18/23 Ammon Lucas MD [address] [place] [facility] [place] [address] Referring Family Medicine 09/08/23 Barrel Maker Relationship Specialty Start Date End Date Ammon Lucas MD [address] [place] [facility] [address] PCP - General Family Medicine 12/18/23 Ammon Lucas MD [address] [place] [facility] [place] [address] Referring Family Medicine 09/08/23 Barrel Maker Relationship Specialty Start Date End Date Ammon Lucas MD [address] [place] [facility] [place] [address] PCP - General Family Medicine 12/18/23 Ammon Lucas MD [address] [place] [facility] [place] [address] Referring Family Medicine 09/08/23 Barrel Maker Relationship Specialty Start Date End Date Ammon Lucas MD [address] [place] [facility] [address] PCP - General Family Medicine 12/18/23 Ammon Lucas MD [address] [place] [facility] [place] [address] Referring Family Medicine 09/08/23 Barrel Maker Relationship Specialty Start Date End Date Ammon Lucas MD [address] [place] [facility] [address] PCP - General Family Medicine 12/18/23 Ammon Lucas MD [address] [place] [facility] [place] [address] Referring Family Medicine 09/08/23 Barrel Maker Relationship Specialty Start Date End Date Ammon Lucas MD [address] [place] [facility] [address] PCP - General Family Medicine 12/18/23 Ammon Lucas MD [address] [place] [facility] [place] [address] Referring Family Medicine 09/08/23 Barrel Maker Relationship Specialty Start Date End Date Ammon Lucas MD [address] [place] [facility] [place] [address] PCP - General Family Medicine 12/18/23 Ammon Lucas MD [address] [place] [facility] [place] [address] Referring Family Medicine 09/08/23 Barrel Maker Relationship Specialty Start Date End Date Ammon Lucas MD [address] [place] [facility] [address] PCP - General Family Medicine 12/18/23 Ammon Lucas MD [address] [place] [facility] [place] [address] Referring Family Medicine 09/08/23 Barrel Maker Relationship Specialty Start Date End Date Ammon Lucas MD [address] [place] [facility] [address] PCP - General Family Medicine 12/18/23 Ammon Lucas MD [address] [place] [facility] [place] [address] Referring Family Medicine 09/08/23 Barrel Maker Relationship Specialty Start Date End Date Ammon Lucas MD [address] [place] [facility] [place] [address] PCP - General Family Medicine 12/18/23 Ammon Lucas MD [address] [place] [facility] [place] [address] Referring Family Medicine 09/08/23 Barrel Maker Relationship Specialty Start Date End Date Ammon Lucas MD [address] [place] [address] PCP - General Family Medicine 12/18/23 Ammon Lucas MD [address] [place] [facility] [address] Referring Family Medicine 09/08/23 Barrel Maker Relationship Specialty Start Date End Date Ammon Lucas MD [address] [place] [facility] [address] PCP - General Family Medicine 12/18/23 Ammon Lucas MD [address] [place] [facility] [place] [address] Referring Family Medicine 09/08/23 Barrel Maker Relationship Specialty Start Date End Date Ammon Lucas MD [address] [place] [facility] [address] PCP - General Family Medicine 12/18/23 Ammon Lucas MD [address] [place] [facility] [address] Referring Family Medicine 09/08/23 Barrel Maker Relationship Specialty Start Date End Date Ammon Lucas MD [address] [place] [facility] [place] [address] PCP - General Family Medicine 12/18/23 Ammon Lucas MD [address] [place] [facility] [place] [address] Referring Family Medicine 09/08/23 Barrel Maker Relationship Specialty Start Date End Date Ammon Lucas MD [address] [place] [facility] [place] [address] PCP - General Family Medicine 12/18/23 Ammon Lucas MD [address] [place] [facility] [place] [address] Referring Family Medicine 09/08/23 Barrel Maker Relationship Specialty Start Date End Date Ammon Lucas MD [address] [place] [address] PCP - General Family Medicine 03/18/23 Barrel Maker Relationship Specialty Start Date End Date Ammon Lucas MD [address] [place] [place] [address] PCP - General Family Medicine 03/18/23 Barrel Maker Relationship Specialty Start Date End Date Ammon Lucas MD [address] [place] [facility] [place] [address] PCP - General Family Medicine 12/18/23 Ammon Lucas MD [address] [place] [facility] [place] [address] Referring Family Medicine 09/08/23 Barrel Maker Relationship Specialty Start Date End Date Ammon Lucas MD [address] [facility], [place] [phone] PCP - General 06/18/18 Barrel Maker Relationship Specialty Start Date End Date Ammon Lucas MD [address] [place] [address] PCP - General 06/18/18 Barrel Maker Relationship Specialty Start Date End Date Ammon Lucas MD [address] [place] [address] PCP - General 06/18/18 Barrel Maker Relationship Specialty [place] [address] [place] [address] PCP - General 06/18/18 Barrel Maker Relationship Specialty [place] [address] [place] [address] PCP - General 06/18/18 Barrel Maker Relationship Specialty [place] [address] [place] [address] PCP - General 06/18/18 Barrel Maker Relationship Specialty Start Date End Date Ammon Lucas MD [address] [place] [phone] PCP - General Family Medicine 03/18/23 FOR [...] BE BASED ON THE PRIMARY CLINICAL RECORDS. [facility]. provides no warranty or guarantee of the accuracy or completeness of information in this document.
[2024-12-09 12:08] LABS: Age Gdln ACOG Testing Note (.); Pap IG (Image Guided) Note (.)
== END 2024-12-06 21:36 | disposition home or self-care (01) ==
LOC: LAB 21:35
PROVIDERS: PCP Family Medicine; Visit Provider Physician Assistant
DX: Z01.419 Encounter for gynecological examination (general) (routine) without abnormal findings (principal)
CPT/HCPCS: 88175

== ENCOUNTER 2025-06-06 10:48 | Inpatient (IN) | payer MEDICARE, SELFPAY ==
--- OUTSIDE RECORDS SUMMARY | 2025-06-02 08:45 | XMS_ITS | Encounter Summary ---
Author Organization [facility] Address [address] [place] [address] Care Team Providers Care Business Development Professional Name Role Phone Alejandra Osborne MD Primary Care Provider [phone] Reason for Referral * Imaging (Routine) - Pending Review Specialty Diagnoses / Procedures Referred By Contac t Referred To Contact Diagnoses Pulmonary nodule Procedures CT chest wo IV contrast Tessa Steven DO [address] [place] [address] Phone: tel: fax: Referral ID Status Reason Start Date Expiration Date V isits Requested Visits Authorized [id number] Pending Review 04/12/2026 10/09/2026 1 1 Encounter Details Date Type Department Care Team (Late st Contact Info) Description 06/02/2025 8:45 AM EDT Office Visit [facility] [address] [place] [address] Tessa Steven DO [address] [place] [address] Pulmonary nodule (Primary Dx) Social History Tobacco [...] 06/12/2023 Chronic rhinitis 03/17/2023 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 Last Assessment & Plan: Sp [...] AM EST Office Visit [facility] [address] [place] [address] Keri Topete PA [address] [facility] [place] [address] 06/01/2026 8:45 AM EDT Office Visit [facility] [address] [place] [address] Tessa Steven DO [address] [place] [address] Scheduled Orders Name Type Priority Associated Diagnoses Orde r Schedule CT chest wo IV contrast Imaging Routine Pulmonary nodule Expected: 04/12/2026, Expires: 09/02/2026 documented as of this encounter Visit Diagnoses Diagnosis Pulmonary nodule- Primary Other diseases of lung, not elsewhere classified documented in this encounter Care Teams Business Development Professional Relationship Specialty Start Date End Date Alejandra Osborne MD PCP - General Family Medicine 03/18/23 documented as of this encounter
--- OUTSIDE RECORDS SUMMARY | 2025-06-06 10:59 | XMS_ITS | Encounter Summary ---
Author Organization [facility] Address [address] [place] [address] Care Team Providers Care Care Aid Name Role Phone Alejandra Osborne MD Primary Care Provider [phone] Encounter Details Date Type Department Care Team (Late st Contact Info) Description 03/21/2023 Abstract [facility] [address] [facility] [place] [address] Keri Topete, PA [address] [place] [address] [place], [place] [phone] Social History Tobacco Use Types Packs/Day Years Used Date Smoking Tobacco: Never Assessed Comments Unknown Sex and Gender Information Value Date Recorded Sex Assigned at Not on file Legal Sex Female 7:08 PM EDT Gender Identity Not on file Sexual Orientation Not on file documented as of this encounter Plan of Treatment Upcoming Encounters Date Type Department Care Team (Late st Contact Info) Description 12/08/2025 9:00 AM EST Office Visit [facility] [address] [facility] [place] [phone] Keri Topete, PA [address] [facility] [address] [place], [place] [phone] 06/01/2026 8:45 AM EDT Office Visit [facility] [address] [place] [phone] Tessa Steven DO [address] [place] [address] documented as of this encounter Visit Diagnoses Not on filedocumented in this encounter Care Teams Care Aid Relationship Specialty Start Date End Date Alejandra Osborne MD PCP - General Family Medicine 03/18/23 documented as of this encounter
--- OUTSIDE RECORDS SUMMARY | 2025-06-06 10:59 | XMS_ITS | Encounter Summary ---
Author Organization [facility] tem Address [id number] [address] [place] [address] Care Team Providers Care Director Product Management Name Role Phone Alejandra Osborne MD Primary Care Provider [phone] Encounter Details Date Type Department Care Team (Late st Contact Info) Description 09/18/2023 Orders Only [facility] - Radiology [address] [place] [phone] Ivan Thomason MD [address] [place] [address] Social History Tobacco Use Types Packs/Day Years Used Date Smoking Tobacco: Former Cigarettes 1 30 0 02/07/1970 - 02/08/2000 Passive Smoke Exposure: Past Smokeless Tobacco: Never Alcohol Use Standard Drinks/Week Comments Yes 0 (1 standard drink = 0.6 oz pur e alcohol) 2 per month AUDIT-C Answer Date Recorded Frequency of Alcohol Consumption Never 02/08/2020 Average Number of Drinks Not on file 020 Frequency of Binge Drinking Not on file 01/12 PHQ-2 Answer Date Recorded Total Score 2 03/29/2020 Childcare Answer Date Recorded Childcare Unknown 03/24/2019 Employment Answer Date Recorded Employment Unknown 03/24/2019 Hunger Screening Answer Date Recorded Within the past 12 months we worried whether our food would run out before we got money to buy more. Never True 08/20/2023 Within the past 12 months th e food we bought just didn't last and we didn't have money to get more. Never True 08/20/2023 Purpose - Life Answer Date Recorded Purpose and direction in life Unknown Comments No Sex and Gender Information Value Date Recorded Sex Assigned at Not on file Legal Sex Female 11:29 AM EDT Gender Identity Not on file Sexual Orientation Not on file documented as of this encounter Plan of Treatment Upcoming Encounters Date Type Department Care Team ([facility] st Contact Info) Description 08/09/2025 11:00 AM EDT Office Visit [facility] - ENT [address] [place] [address], [address] [place] [address] [place] [address] [place] [address] [address] [place] [address] documented as of this encounter Visit Diagnoses Not on filedocumented in this encounter Additional Health Concerns Assessment Noted Time PHQ-9 Depression Total Score: 2 03/29/20 20 1:00 PM EDT documented as of this encounter Care Teams Director Product Management Relationship Specialty Start Date End Date Alejandra Osborne MD [address] [place] [address] PCP - General 06/18/18 documented as of this encounter
--- OUTSIDE RECORDS SUMMARY | 2025-06-06 10:59 | XMS_ITS | Encounter Summary ---
Author Organization [facility] Address [address] [place] [address] Care Team Providers Care Automatic Lump Making Machine Tender Name Role Phone Alejandra Osborne MD Primary Care Provider [phone] Encounter Details Date Type Department Care Team (Late st Contact Info) Description 11/30/2024 Orders Only [facility] [address] [place] [address] [place] [address] Jagruti Flowers LPN [address] [facility] [place] [address] Social History Tobacco Use Types Packs/Day Years Used Date Smoking Tobacco: Former Cigarettes Passive Smoke Exposure: Past Smokeless Tobacco: Never Alcohol Use Standard Drinks/Week Comments Never 0 (1 standard drink = 0.6 oz pure alcohol) caffeine intake: 2-3 cups per day Comments Unknown Sex and Gender Information Value Date Recorded Sex Assigned at Not on file Legal Sex Female 7:08 PM EDT Gender Identity Not on file Sexual Orientation Not on file documented as of this encounter Plan of Treatment Upcoming Encounters Date Type Department Care Team (Late st Contact Info) Description 12/08/2025 9:00 AM EST Office Visit [facility] [address] [place] [address] [place] [address] Keri Topete PA [address] [facility] [address] [place], [facility] 06/01/2026 8:45 AM EDT Office Visit [facility] [address] [place] [address] Tessa Steven DO [address] [place] [address] documented as of this encounter Procedures Procedure Name Priority Date/Time Associated Diagnosis Comments PAP SMEAR Routine 03/18/2023 12:00 AM EDT documented in this encounter Results * Pap Smear (03/18/2023 12:00 AM EDT) Swab Cervical swab / Unknown us [facility] CYTOLOGY ORDERABLES Final Result EXTERNAL LAB documented in this encounter Visit Diagnoses Not on filedocumented in this encounter Care Teams Automatic Lump Making Machine Tender Relationship Specialty Start Date End Date Alejandra Osborne MD PCP - General Family Medicine 03/18/23 documented as of this encounter
--- OUTSIDE RECORDS SUMMARY | 2025-06-06 10:59 | XMS_ITS | Encounter Summary ---
Author Organization [facility] tem Address [id number] [address] [place] [address] Care Team Providers Care Clinical Nurse Manager Name Role Phone Alejandra Osborne MD Primary Care Provider [phone] Reason for Visit * Reason Onset Date Comments Please call [facility] Radiology [place] 2022 Encounter Details Date Type Department Care Team (Late st Contact Info) Description 08/15/2023 Telephone [facility] - ENT [address] [place] [address], [address] [place] [address] [place] [address] [place] [address] [address] [place] [address] Please call [facility] Radiology [place] Social History Tobacco Use Types Packs/Day Years [...] Employment Answer Date Recorded Employment Unknown 03/24/2019 Purpose - Life Answer Date Recorded Purpose and direction in life Unknown Comments No Sex and Gender Information Value Date Recorded Sex Assigned at Not on file Legal Sex Female 11:29 AM EDT Gender Identity Not on file Sexual Orientation Not on file documented as of this encounter Miscellaneous Notes * Telephone Encounter - Mary Rowe - 08/15/2023 9:08 AM EDT Please call Nathalie at [facility] Radiology Room. Patient sees Dr. Palma. # [phone]. * Telephone Encounter - Mario Mojica - 08/15/2023 9:[address] Palma, I have routed CT results to you . * Telephone Encounter - Sarah Palma MD - 08/15/2023 9:08 AM EDT This was addressed * Telephone Encounter - Mario Mojica - 08/15/2023 9:08 AM EDT Ok, thank you Dr. Palma! Mario Mojica MA documented in this encounter Plan of Treatment Upcoming Encounters Date Type Department Care Team (Late st Contact Info) Description 08/09/2025 11:00 AM EDT Office Visit [facility] - ENT [address] [facility], [address] [place] [address] Sarah Palma MD [address] [facility] [address] [place] [address] documented as of this encounter Visit Diagnoses Not on filedocumented in this encounter Additional Health Concerns Assessment Noted Time PHQ-9 Depression Total Score: 2 03/29/20 20 1:00 PM EDT documented as of this encounter Care Teams Clinical Nurse Manager Relationship Specialty Start Date End Date Alejandra Osborne MD [address] [place] [id number] PCP - General 06/18/18 documented as of this encounter
--- OUTSIDE RECORDS SUMMARY | 2025-06-06 10:59 | XMS_ITS | Encounter Summary ---
Author Organization [facility] Address [address] [place] [address] Care Team Providers Care Electric Power Line Examiner Name Role Phone Alejandra Osborne MD Primary Care Provider [phone] Encounter Details Date Type Department Care Team (Late st Contact Info) Description 02/15/2023 Abstract [facility] [address] [facility] [place] [address] Edward Silva DO [address] [facility] [address] [facility] [address] [place], [place] [id number] Social History Tobacco Use Types Packs/Day Years [...] AM EST Office Visit [facility] [address] [facility] [place] [address] Keri Topete PA [address] [facility] [address] [facility] [address] [place], [place] [phone] 06/01/2026 8:45 AM EDT Office Visit [facility] [address] [place] [address] Tessa Steven DO [address] [place] [address] documented as of this encounter Visit Diagnoses Not on filedocumented in this encounter Care Teams Electric Power Line Examiner Relationship Specialty Start Date End Date Alejandra Osborne MD PCP - General Family Medicine 03/18/23 documented as of this encounter
--- OUTSIDE RECORDS SUMMARY | 2025-06-06 10:59 | XMS_ITS | Encounter Summary ---
Author Organization [facility] Address [address] [place] [address] Care Team Providers Care Glass Robot Operator Name Role Phone Alejandra Osborne MD Unavailable [phone] Alejandra Osborne MD Primary Care Provider [phone] Source Comments In the event this information is protected by the Federal Confidentiality of Alcohol and Drug AbusePatient Records regulations: The Federal rules restrict any use of the information to criminally investigate or prosecute any alcohol or drug abuse patient.[facility] Encounter Details Date Type Department Care Team (Late st Contact Info) Description 09/23/2024 Patient Msg Gynecology [address] [place], [place] [phone] Augustina Vargas MD [address] [place] [address] update Social History Tobacco Use Types Packs/Day Years Used Date Smoking Tobacco: Former Cigarettes - 2010 Passive Smoke Exposure: Never Smokeless Tobacco: Never Alcohol Use Standard Drinks/Week Comments Not Currently 0 (1 standard drink = 0.6 oz pur e alcohol) Area Deprivation Index Answer Date Keron rded National Score (1-100), lower number is lower ri sk 64 12/18/2023 State Score (1-10), lower number is lower risk 4 12/18/2023 Data from: https://www.neighborhoodatlas.medicine.[facility].edu/. Last address used for calculation [address] 12/18/2023 Comments No Sex and Gender Information Value Date Recorded Sex Assigned at Not on file Legal Sex Female 4:14 PM EST Gender Identity Not on file Sexual Orientation Not on file documented as of this encounter Plan of Treatment Upcoming Encounters Date Type Department Care Team (Late st Contact Info) Description 07/04/2025 10:30 AM EDT Office Visit [facility] [address] [place], [place] [phone] Sveta Strong MD [address] [place], [place] [id number] lvm and elodia appt rs from 06/07/25 07/07/2025 1:00 PM EDT Office Visit Gynecology [address] [place] [address] Augustina Vargas MD [address] [place], [place] [address] Botox injection 08/02/2025 12:20 PM EDT Office Visit Rheumatology [address] [place], [place] [phone] Gi Siddiqi MD [address] [place], [place] [phone] Follow up Osteoporosis documented as of this encounter Visit Diagnoses Not on filedocumented in this encounter Care Teams Glass Robot Operator Relationship Specialty Start Date End Date Alejandra Osborne MD [address] [place] [address] PCP - General Family Medicine 12/18/23 Alejandra Osborne MD [address] [place] [address] Referring Family Medicine 09/08/23 documented as of this encounter
--- OUTSIDE RECORDS SUMMARY | 2025-06-06 10:59 | XMS_ITS | Encounter Summary ---
Author Organization [facility] Address [address] [place] [address] Care Team Providers Care Diabetes Clinical Manager Name Role Phone Alejandra Osborne MD Primary Care Provider Encounter Details Date Type Department Care Team (Late st Contact Info) Description 04/01/2023 Abstract NOMTamiko MIRANDA [address] [facility] [place] [phone] Edward Silva DO [address] [facility] [address] Marquis Reeder, [facility] Social History Tobacco Use Types Packs/Day Years [...] AM EST Office Visit OLAMIDE MIRANDA [address] [facility] [place] [address] Keri Topete PA [address] [facility] [address] [place], [place] [phone] 06/01/2026 8:45 AM EDT Office Visit [facility] [address] [place] [address] Tessa Steven DO [address] [address] documented as of this encounter Visit Diagnoses Not on filedocumented in this encounter Care Teams Diabetes Clinical Manager Relationship Specialty Start Date End Date Alejandra Osborne MD PCP - General Family Medicine 03/18/23 documented as of this encounter
--- OUTSIDE RECORDS SUMMARY | 2025-06-06 10:59 | XMS_ITS | Encounter Summary ---
Author Organization [facility] Address [address] [place] [address] Care Team Providers Care Bridge/Structure Inspection Team Leader Name Role Phone Alejandra Osborne MD Unavailable [phone] Alejandra Osborne MD Primary Care Provider [phone] Source Comments In the event this information is protected by the Federal Confidentiality of Alcohol and Drug AbusePatient Records regulations: The Federal rules restrict any use of the information to criminally investigate or prosecute any alcohol or drug abuse patient.[facility] Encounter Details Date Type Department Care Team (Late st Contact Info) Description 01/26/2025 Patient [facility] -[address] [place] [address] Aide Glover RPh At your next appointment, choose [facility]. Social History Tobacco Use Types Packs/Day Years Used Date Smoking Tobacco: Former Cigarettes - 2010 Passive Smoke Exposure: Never Smokeless Tobacco: Never Alcohol Use Standard Drinks/Week Comments Not Currently 0 (1 standard drink = 0.6 oz pur e alcohol) Area Deprivation Index Answer Date Keron rded National Score (1-100), lower number is lower ri 64 12/18/2023 State Score (1-10), lower number is lower risk 4 12/18/2023 Data from: https://www.neighborhoodatlas.medicine.[facility].edu/. Last address used for calculation [address] [...] 10:30 AM EDT Office Visit CARD INTERVENTION [facility] [address] [place] [address] Sveta Strong MD [address] [place], [place] [phone] lvm and mc appt rs from 06/07/25 07/07/2025 1:00 PM EDT Office Visit Gynecology [address] [place] [address] Augustina Vargas MD [address] [place], [place] [phone] Botox injection 08/02/2025 12:20 PM EDT Office Visit Rheumatology [address] [place], [place] [phone] Gi Siddiqi MD [address] [place], [place] [address] Follow up Osteoporosis documented as of this encounter Visit Diagnoses Not on filedocumented in this encounter Care Teams Bridge/Structure Inspection Team Leader Relationship Specialty Start Date End Date Alejandra Osborne MD [address] [place] [phone] PCP - General Family Medicine 12/18/23 Alejandra Osborne MD [address] [place] [address] Referring Family Medicine 09/08/23 documented as of this encounter
--- OUTSIDE RECORDS SUMMARY | 2025-06-06 10:59 | XMS_ITS | Encounter Summary ---
Author Organization [facility] Address [address] [place] [address] Care Team Providers Care Seo Analyst Name Role Phone Alejandra Osborne MD Primary Care Provider [phone] Encounter Details Date Type Department Care Team (Late st Contact Info) Description 09/29/2023 Clinisync Result Encounter [facility] External Department Unsolicited Keri Cruz PA [address] [facility] [address] [place] [phone] Social History Tobacco Use Types Packs/Day Years [...] AM EST Office Visit OLAMIDE MIRANDA [address] [facility] [place] [address] Keri Cruz PA [address] [facility] [address] [address] 06/01/2026 8:45 AM EDT Office Visit [facility] [address] [place] [address] Tessa Steven DO [address] [place] [address] documented as of this encounter Procedures Procedure Name Priority Date/Time Associated Diagnosis Comments XR DEXA AXIAL SKELETON 09/29/2023 8:45 AM EST documented in this encounter Results * XR DEXA AXIAL SKELETON (09/29/2023 8:45 AM EST) Anatomical Region Laterality Modality Other 09/29/2023 8:45 AM EST Narrative 09/29/2023 8:48 [place] [address] XRay Report Signed Patient: Karen Zaidi MR#: [id number] : 1955 Acct:[id number] Age/Sex: 68 / F ADM Date: 09/29/23 Loc: MAMMO Attending Dr: Keri Cruz Ordering Physician: Keri Cruz Date of Service: 09/29/23 Procedure(s): XR DEXA axial skeleton Accession Number(s): [id number] cc: Keri Cruz; Alejandra Osborne M.D. [address] [address] Patient Name: KAREN ZAIDI MRN: [id number] date: 1955 Sex: F Assigned Patient Location: [facility] Current Patient Location: [facility] Accession/Order Number: [id number] Exam Date: 09/29/2023 08:16 Report Date: 09/29/2023 08:45 At the request of: KERI CRUZ Procedure: XR DEXA axial skeleton EXAMINATION: XR DEXA axial skeleton, 09/29/2023 8:16 AM EST HISTORY: screening for osteoporosis COMPARISON: 2008 TECHNIQUE: Dual-energy X-ray absorptiometry (DEXA) bone density study performed for the axial skeleton. HISTORY: screening for osteoporosis FINDINGS: Bone mineral density AP spine L2-L4 measures 1.010 g/sq cm. T score -1.6. WHO classification: Osteopenia. Lowest bone mineral density is in the right femoral trochanter measuring 0.497 g/sq cm. T score -3.1. WHO classification: Osteoporosis XR/XR DEXA axial skeleton IMPRESSION: Osteoporosis. High fracture risk Electronically authenticated by: JAMISON LEBLANC Date: 09/29/2023 08:45 Dictated By: Jamison Leblanc M.D. Signed By: 09/29/2348 DD/ 4 TD/TT: Barrel Lapper: Procedure Note Radiology, Radiologist, - 09/29/2023 [place] [address] XRay Report Signed Patient: Karen Zaidi KMR#: [id number] : 1955cct:[id number] Age/Sex: 68 / FADM Date: 09/29/23 Loc: MAMMO Attending Dr: Keri Cruz Ordering Physician: Keri Cruz Date of Service: 09/29/23 Procedure(s): XR DEXA axial skeleton Accession Number(s): [id number] cc: Keri Cruz; Alejandra Osborne M.D. The [place] [id number] Patient Name: KAREN ZAIDI MRN: [id number] date: 1955 Sex: F Assigned Patient Location: [facility] Current Patient Location: [facility] Accession/Order Number: [id number] Exam Date: 09/29/2023 08:16 Report Date: 09/29/2023 08:45 At the request of: KERI CRUZ Procedure: XR DEXA axial skeleton EXAMINATION: XR DEXA axial skeleton, 09/29/2023 8:16 AM EST HISTORY: screening for osteoporosis COMPARISON: 2008 TECHNIQUE: Dual-energy X-ray absorptiometry (DEXA) bone density study performed for the axial skeleton. HISTORY: screening for osteoporosis FINDINGS: Bone mineral density AP spine L2-L4 measures 1.010 g/sq cm. T score -1.6.WHO classification: Osteopenia. Lowest bone mineral density is in the right femoral trochanter measuring0.497 g/sq cm. T score -3.1. WHO classification: Osteoporosis XR/XR DEXA axial skeleton IMPRESSION: Osteoporosis. High fracture risk Electronically authenticated by: JAMISON LEBLANC Date: 09/29/2023 08:45 Dictated By: Jamison Leblanc M.D. Signed By:09/29/2348 DD/ TD/TT: Barrel Lapper: [facility] Final Result documented in this encounter Visit Diagnoses Not on filedocumented in this encounter Care Teams Seo Analyst Relationship Specialty Start Date End Date Alejandra Osborne MD PCP - General Family Medicine 03/18/23 documented as of this encounter
--- OUTSIDE RECORDS SUMMARY | 2025-06-06 10:59 | XMS_ITS | Encounter Summary ---
Author Organization [facility] Address [address] [place] [address] Care Team Providers Care Canal Driver Name Role Phone Alejandra Osborne MD Unavailable [phone] Alejandra Osborne MD Primary Care Provider [phone] Source Comments In the event this information is protected by the Federal Confidentiality of Alcohol and Drug AbusePatient Records regulations: The Federal rules restrict any use of the information to criminally investigate or prosecute any alcohol or drug abuse patient.[facility] Encounter Details Date Type Department Care Team (Late st Contact Info) Description 01/26/2025 Patient [facility] -[address] [place] [address] Aide Glover RPh At your next appointment, choose [facility]. Social History Tobacco Use Types [...] is lower risk 4 12/18/2023 Data from: https://www.neighborhoodatlas.medicine.[facility].edu/. Last address used for calculation [address] [...] 10:30 AM EDT Office Visit CARD INTERVENTION [facility] [address] [place] [address] Sveta Strong MD [address] [place], [place] [phone] lvm and mc appt rs from 06/07/25 07/07/2025 1:00 PM EDT Office Visit Gynecology [address] [place] [address] Augustina Vargas MD [address] [place], [place] [address] Botox injection 08/02/2025 12:20 PM EDT Office Visit Rheumatology [address] [place], [place] [phone] Gi Siddiqi MD [address] [place], [place] [phone] Follow up Osteoporosis documented as of this encounter Visit Diagnoses Not on filedocumented in this encounter Care Teams Canal Driver Relationship Specialty Start Date End Date Alejandra Osborne MD [address] [place] [phone] PCP - General Family Medicine 12/18/23 Alejandra Osborne MD [address] [place] [address] Referring Family Medicine 09/08/23 documented as of this encounter
--- OUTSIDE RECORDS SUMMARY | 2025-06-06 10:59 | XMS_ITS | Encounter Summary ---
Author Organization [facility] Address [address] [place] [address] Care Team Providers Care Film Editor Name Role Phone Alejandra Osborne MD Primary Care Provider [phone] Encounter Details Date Type Department Care Team (Latest Contact Info) Description 06/02/2025 Travel Social History Tobacco Use Types Packs/Day Years [...] [address] [facility] [place] [phone] Keri Topete PA [address] [facility] [place] [address] 06/01/2026 8:45 AM EDT Office Visit [facility] [address] [place] [phone] Tessa Steven DO [address] [place] [address] documented as of this encounter Visit Diagnoses Not on filedocumented in this encounter Care Teams Film Editor Relationship Specialty Start Date End Date Alejandra Osborne MD PCP - General Family Medicine 03/18/23 documented as of this encounter
--- OUTSIDE RECORDS SUMMARY | 2025-06-06 10:59 | XMS_ITS | Encounter Summary ---
Author Organization [facility] Address [address] [place] [address] Care Team Providers Care Picking Supervisor Name Role Phone Alejandra Osborne MD Primary Care Provider [phone] Encounter Details Date Type Department Care Team (Late st Contact Info) Description 09/29/2023 Clinisync Result Encounter NOMS External Department Unsolicited Keri Topete PA [address] [facility] [address] [place] [phone] Social History Tobacco Use Types Packs/Day Years [...] AM EST Office Visit OLAMIDE MIRANDA [address] [facility] [place] [address] Keri Topete PA [address] [facility] [place] [address] 06/01/2026 8:45 AM EDT Office Visit [facility] [address] [place] [address] Tessa Steven DO [address] [place] [address] documented as of this encounter Procedures Procedure Name Priority Date/Time Associated Diagnosis Comments MM TOMOSYNTHESIS SCREENING BI 09/29/2023 2:39 PM EST documented in this encounter Results * MM TOMOSYNTHESIS SCREENING BI (09/29/2023 2:39 PM EST) Anatomical Region Laterality Modality Other 09/29/2023 2:39 PM EST Narrative 09/29/2023 2:40 [place] [address] Mammography Report Signed Patient: Karen Zaidi MR#: [id number] : 1955 Acct:[id number] Age/Sex: 68 / F ADM Date: 09/29/23 Loc: MAMMO Attending Dr: Keri Topete Ordering Physician: Keri Topete Results: Date of Service: 09/29/23 Follow Up: Procedure(s): MM tomosynthesis screening BI Accession Number(s): [id number] cc: Keri Topete; Alejandra Osborne M.D. Patient Name: KAREN ZAIDI MR#: [id number] : 1955 Exam Date: 09/29/2023 Ordering Doctor: DELIA Topete . RADIOLOGY REPORT PROCEDURE: MM TOMOSYNTHESIS SCREENING BI COMPARISON: MG MAMM SCREEN CINTHYA W CAD, 08/10/2018. MG MAMM SCREEN 3D CINTHYA CAD, 08/13/2022. INDICATIONS: screening for malignant neoplasm of breast Calculator Name NCI Breast Cancer Risk Assessment Tool 5 Year Breast Cancer Risk 1.50% Lifetime Breast Cancer Risk 5.40% Personal Breast Cancer No Personal Ovarian Cancer No Treatments None Family Cancers None LOCATION: [facility] BREAST COMPOSITION: Scattered areas fibroglandular density. FINDINGS: DIAGNOSTIC CATEGORY 1--NEGATIVE. NO CHANGE FROM COMPARISON ASSESSMENT. RIGHT BREAST: No significant suspicious finding. [employer] marker indicates a scab from the patient's recent mole removal. No mammographic abnormality LEFT BREAST: No significant suspicious finding. RECOMMENDATIONS: ROUTINE MAMMOGRAM AND CLINICAL EVALUATION IN 12 MONTHS. PLEASE NOTE: A NORMAL MAMMOGRAM DOES NOT EXCLUDE THE POSSIBILITY OF BREAST CANCER. A CLINICALLY SUSPICIOUS PALPABLE LUMP SHOULD BE BIOPSIED. Dictated by: Boogie Mina MD on 09/29/2023 at 14:35 Approved by: Boogie Mina MD on 09/29/2023 at 14:39 Dictated By: Boogie Mina M.D. Signed By: 09/29/23 1440 DD/ 1439 TD/TT: 3D Modeler: Procedure Note Radiology, Radiologist, MD - 09/29/2023 [place] [address] Mammography Report Signed Patient: Karen Zaidi KMR#: [id number] : 1955cct:[id number] Age/Sex: 68 / FADM Date: 09/29/23 Loc: MAMMO Attending Dr: Keri Topete Ordering Physician: Keri TopeteResults: Date of Service: 09/29/23Follow Up: Procedure(s): MM tomosynthesis screening BI Accession Number(s): [id number] cc: Keri Topete; Alejandra Osborne M.D. Patient Name: KAREN ZAIDI MR#: [id number] : 1955 Exam Date: 09/29/2023 Ordering Doctor: DELIA Topete . RADIOLOGY REPORT PROCEDURE: MM TOMOSYNTHESIS SCREENING BI COMPARISON: MG MAMM SCREEN CINTHYA W CAD, 08/10/2018. MG MAMM SCREEN 3DBIL CAD, 08/13/2022. INDICATIONS: screening for malignant neoplasm of breast Calculator Name NCI Breast Cancer Risk Assessment Tool 5 Year Breast Cancer Risk 1.50% Lifetime Breast Cancer Risk 5.40% Personal Breast Cancer No Personal Ovarian Cancer No Treatments None Family Cancers None LOCATION: [facility] BREAST COMPOSITION: Scattered areas fibroglandular density. FINDINGS: DIAGNOSTIC CATEGORY 1--NEGATIVE. NO CHANGE FROM COMPARISON ASSESSMENT. RIGHT BREAST: No significant suspicious finding. [employer] markerindicates a scab from the patient's recent mole removal. No mammographic abnormality LEFT BREAST: No significant suspicious finding. RECOMMENDATIONS: ROUTINE MAMMOGRAM AND CLINICAL EVALUATION IN 12 MONTHS. PLEASE NOTE: A NORMAL MAMMOGRAM DOES NOT EXCLUDE THE POSSIBILITY OFBREAST CANCER. A CLINICALLY SUSPICIOUS PALPABLE LUMP SHOULD BE BIOPSIED. Dictated by: Boogie Mina MD on 09/29/2023 at 14:35 Approved by: Boogie Mina MD on 09/29/2023 at 14:39 Dictated By: Boogie Mina M.D. Signed By:09/29/23 1440 DD/ 1439 TD/TT: 3D Modeler: us [facility] Final Result documented in this encounter Visit Diagnoses Not on filedocumented in this encounter Care Teams Picking Supervisor Relationship Specialty Start Date End Date Aleajndra Osborne MD PCP - General Family Medicine 03/18/23 documented as of this encounter
--- OUTSIDE RECORDS SUMMARY | 2025-06-06 10:59 | XMS_ITS | Encounter Summary ---
Author Organization [facility] Address [address] [place] [address] Care Team Providers Care Car Racer Name Role Phone Alejandra Osborne MD Unavailable [phone] Alejandra Osborne MD Primary Care Provider [phone] Source Comments In the event this information is protected by the Federal Confidentiality of Alcohol and Drug AbusePatient Records regulations: The Federal rules restrict any use of the information to criminally investigate or prosecute any alcohol or drug abuse patient.[facility] Encounter Details Date Type Department Care Team (Late st Contact Info) Description 06/25/2024 Patient Msg Gynecology [address] [phone] Augustina Vargas MD [address] [place] [address] appt for botox Social History Tobacco Use Types Packs/Day Years Used Date Smoking Tobacco: Former Cigarettes 1 - 2010 Passive Smoke Exposure: Never Smokeless Tobacco: Never Alcohol Use Standard Drinks/Week Comments Not Currently 0 (1 standard drink = 0.6 oz pur e alcohol) Area Deprivation Index Answer Date Keron rded National Score (1-100), lower number is lower ri sk 64 12/18/2023 State Score (1-10), lower number is lower risk 4 12/18/2023 Data from: https://www.neighborhoodatlas.medicine.[facility]/. Last address used for calculation [address] [...] 10:30 AM EDT Office Visit [facility] [address] [place] [address] Sveta Strong MD [address] [place], [place] [phone] lvm and elodia appt rs from 06/07/25 07/07/2025 1:00 PM EDT Office Visit Gynecology [address] [place] [address] Augustina Vargas MD [address] [place], [place] [phone] Botox injection 08/02/2025 12:20 PM EDT Office Visit Rheumatology [address], [place] [phone] Gi Siddiqi MD [address] [place], [place] [address] Follow up Osteoporosis documented as of this encounter Visit Diagnoses Not on filedocumented in this encounter Care Teams Car Racer Relationship Specialty Start Date End Date Alejandra Osborne MD [address] [place] [address] PCP - General Family Medicine 12/18/23 Alejandra Osborne MD [address] [place] [address] Referring Family Medicine 09/08/23 documented as of this encounter
--- OUTSIDE RECORDS SUMMARY | 2025-06-06 10:59 | XMS_ITS | Encounter Summary ---
Author Organization [facility] Address [address] [place] [address] Care Team Providers Care Electrical Machine Builder Name Role Phone Alejandra Osborne MD Primary Care Provider [phone] Encounter Details Date Type Department Care Team (Late st Contact Info) Description 12/20/2024 Orders Only NOMTamiko MIRANDA [address] [place] [address] Irene Grace ND Social History Tobacco Use Types Packs/Day Years [...] AM EST Office Visit NOMTamiko MIRANDA [address] [place] [address] Keri Topete PA [address] [facility] [address] [place], [place] [phone] 06/01/2026 8:45 AM EDT Office Visit [facility] [address] [place] [place] [address] Tessa Steven, DO [address] [place] [address] documented as of this encounter Procedures Procedure Name Priority Date/Time Associated Diagnosis Comments PAP SMEAR Routine 12/06/2024 12:00 AM EST documented in this encounter Results * Pap Smear (12/06/2024 12:00 AM EST) Swab Cervical swab / Unknown us [facility] CYTOLOGY ORDERABLES Final Re sult EXTERNAL LAB documented in this encounter Visit Diagnoses Not on filedocumented in this encounter Care Teams Electrical Machine Builder Relationship Specialty Start Date End Date Alejandra Osborne MD PCP - General Family Medicine 03/18/23 documented as of this encounter
--- OUTSIDE RECORDS SUMMARY | 2025-06-06 10:59 | XMS_ITS | Clinical Summary ---
Author Organization [facility] Address [address] [place] [address] Care Team Providers Care Engine Hostler Name Role Phone Alejandra Osborne MD Primary Care Provider [phone] Allergies Active Allergy Reactions Criticality Noted Date Comments Bee Pollen 04/12/2024 Other Reaction(s): Comment:Bee Stings Bee Venom Rash,Hives Medium 12/05/2019 Clindamycin Rash,Hives,Shortness of breath High 06/30/2018 Codeine GI intolerance Low 06/30/2018 Other Reaction(s): Comment:upset stomach Doxycycline Rash,Hives Low 03/03/2023 Doxycycline Hyclate Rash Low 03/03/2023 Fluconazole Dizziness 04/12/2024 Pseudoephedrine Hcl Er Hives 04/12/2024 Medications Singulair 10 MG tablet 1 (one) time each day at the same time Active acetaminophen (Tylenol) 500 MG tablet Take 1,000 mg by mouth every 6 (six) hours if needed Active atorvastatin (Lipitor) 20 MG tablet Take 20 mg by mouth in the morning. Active fluticasone (Flonase) 50 MCG/ACT nasal spray Administer 1 spray into affected nostril(s) in the morning. Active ibuprofen 200 MG tablet Take 400 mg by mouth every 6 (six) hours if needed Active loratadine-pseu doephedrine ER (Claritin-D 12-hour) 5-120 MG 12 hr tablet Take 1 tablet by mouth in the morning and 1 tablet in the evening. 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 Sinus bradycardia on ECG 02/20/2024 Overview (06/02/2024): Last Assessment & Plan: HR on EKG from today - 54 HR on exam today 60 Denies cardiac symptoms Narcotic drug use 02/19/2024 06/02/2024 Overview (06/02/2024): Last Assessment & Plan: Pain managed with norco PRN 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 06/02/2024 Overview (06/02/2024): Last Assessment & Plan: With pelvic congestion Patient endorses abdominal and L flank pain with radiation to pelvis Other hyperlipidemia 02/19/2024 024 Overview (06/02/2024): Last Assessment & Plan: Managed on Atorvastatin Ovarian varices 02/19/2024 06/02/2024 Overview (06/02/2024): Last Assessment & Plan: 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 Plan for surgery [place]'s syndrome 02/19/2024 06/02/2024 Overview (06/02/2024): Last Assessment & Plan: Sp styloidectomy Mass of right submandibular region 12/01/2023 12/01/2023 Neck pain 12/01/2023 12/01/2023 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2023 Submandibular gland swelling 10/07/2023 12/01/2023 Family history of abdominal aortic aneurysm 08/20/2023 12/01/2023 Infrarenal abdominal 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 08/20/2023 12/01/2023 Pelvic pain 08/20/2023 12/01/2023 Chest pain 06/12/2023 12/01/2023 Acute non intractable tension-type headache 03/17/2023 06/02/2024 Chronic rhinitis 03/17/2023 06/02/2024 Pharyngeal dysphagia 03/17/2023 024 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2023 Encounters Date Type Department Care Team Description 06/02/2025 8:45 AM EDT Office Visit [facility] [address] [place] [address] Tessa Steven DO Pulmonary nodule (Primary Dx) 06/02/2025 Bamboo flowsheet [facility] [address] [place] [address] Tessa Steven DO 06/02/2025 Travel from Last 3 Months Immunizations Immunization Administration Dates Next Due Influenza, injectable, quadr ivalent, preservative free 07/20/2021,07/14/2020,08/11/2019,08/19 Pneumococcal Polysaccharide PPSV23 06/30/2020 Zoster, Recombinant 09/13/2020,07/07/2020 Family History Medical History Relation Name Comments Heart disease Father Vern Neves Hypertension Father Vern Neves Stroke Father Vern Neves Heart disease Mother Namrata Neves Hypertension Mother Namrata Neves Stroke Mother Namrata Neves Heart disease Sibling Hypertension Sibling Stroke Sibling Relation Name Status Comments Father Vern Neves Mother Namrata Neves Sibling Social History Tobacco Use Types Packs/Day Years Used Date Smoking Tobacco: Former Cigarettes Passive Smoke Exposure: Past Smokeless Tobacco: Never Tobacco Cessation:Counseling Given: Not Answered Alcohol Use Standard Drinks/Week Comments Never 0 (1 standard drink = 0.6 oz pure alcohol) caffeine intake: 2-3 cups per day Comments No Sex and Gender Information Value Date Recorded Sex Assigned at Not on file Legal Sex Female 7:08 PM EDT Gender Identity Not on file Sexual Orientation Not on file Last Filed Vital Signs Vital Sign Reading [...] Mass Index 21.93 06/02/2025 8:52 AM EDT Plan of Treatment Upcoming Encounters Date Type Department Care Team (Late st Contact Info) Description 12/08/2025 9:00 AM EST Office Visit [facility] [address] [place] [phone] Keri Topete PA [address] [place] [address] 06/01/2026 8:45 AM EDT Office Visit [facility] [address] [place] [address] Tessa Steven, DO [address] [place] [address] Health Maintenance Due Date Last Done Comments CT Colonography 1955 FIT-DNA 1957 FIT 1955 FOBT 1955 Sigmoidoscopy 1955 Pneumococcal Vaccine: 65+ Ye ars (2 of 2 - PCV) 06/30/2021 06/30/2020 Influenza Vaccine (#1) 2025 , 07/14/2020, 08/11/2019, Additional history exists Mammogram 09/30/2025 09/30/2024, 09/29/2023 Colonoscopy 07/23/2028 07/23/2018 Colorectal Cancer Screening 07/23/2028 HPV/Cotest Discontinued 05/29/2023 Cervical Cancer Screening Discontinued Pap Smear Discontinued 12/06/2024, 06/0 03/2023, 08/04/2018 Procedures Procedure Name Priority Date/Time Associated Diagnosis Comments PAP SMEAR Routine 12/06/2024 12:00 AM EST MM TOMOSYNTHESIS SCREENING BI 09/30/2024 9:56 AM EST THINPREP PAP AND HPV MRNA E6/E7 W/RFL HPV 16,18/45 Routine 05/29/2023 9:59 AM EDT Well woman exam with routine gynecological exam from Last 3 Months or Most Recently Relevant to Health Maintenance Results * Pap Smear (12/06/2024 12:00 AM EST) Swab Cervical swab / Unknown us [facility] CYTOLOGY ORDERABLES Final Re sult EXTERNAL LAB * MM TOMOSYNTHESIS SCREENING BI (09/30/2024 9:56 AM EST) Anatomical Region Laterality Modality Other 09/30/2024 9:56 AM EST Narrative 09/30/2024 9:57 [place] [address] Mammography Report Signed Patient: KAREN ZAIDI MR#: [id number] : 1955 Acct:[id number] Age/Sex: 69 / F ADM Date: 09/30/24 Loc: MAMMO Attending Dr: Keri Topete Ordering Physician: Keri Topete Results: Date of Service: 09/30/24 Follow Up: Procedure(s): MM tomosynthesis screening BI Accession Number(s): [id number] cc: Keri Topete; Alejandra Osborne M.D. Patient Name: KAREN ZAIDI MR#: [id number] : 1955 Exam Date: 09/30/2024 Ordering Doctor: DELIA Topete . RADIOLOGY REPORT PROCEDURE: MM TOMOSYNTHESIS SCREENING BI COMPARISON: MG MAMM SCREEN 3D CINTHYA CAD, 08/13/2022. MM TOMOSYNTHESIS SCREENING BI, 09/29/2023. INDICATIONS: Screening Calculator Name NCI Breast Cancer Risk Assessment Tool 5 Year Breast Cancer Risk 1.50% Lifetime Breast Cancer Risk 5.20% Personal Breast Cancer No Personal Ovarian Cancer No Treatments None Family Cancers None LOCATION: [facility] BREAST COMPOSITION: There are scattered areas of fibroglandular density. FINDINGS: DIAGNOSTIC CATEGORY 1--NEGATIVE. NO CHANGE FROM COMPARISON ASSESSMENT. RIGHT BREAST: No significant suspicious finding. LEFT BREAST: No significant suspicious finding. RECOMMENDATIONS: ROUTINE MAMMOGRAM AND CLINICAL EVALUATION IN 12 MONTHS. PLEASE NOTE: A NORMAL MAMMOGRAM DOES NOT EXCLUDE THE POSSIBILITY OF BREAST CANCER. A CLINICALLY SUSPICIOUS PALPABLE LUMP SHOULD BE BIOPSIED. Dictated by: Boogie Mina MD on 09/30/2024 at 09:55 Approved by: Boogie Mina MD on 09/30/2024 at 09:56 Dictated By: Boogie Mina M.D. Signed By: 09/30/24 0957 DD/ 0956 TD/TT: Harvest Worker Fruit: Procedure Note Radiology, Radiologist, - 09/30/2024 [place] [address] Mammography Report Signed Patient: KAREN ZAIDI KMR#: [id number] : 1955cct:[id number] Age/Sex: 69 / FADM Date: 09/30/24 Loc: MAMMO Attending Dr: Keri Topete Ordering Physician: Keri TopeteResults: Date of Service: 09/30/24Follow Up: Procedure(s): MM tomosynthesis screening BI Accession Number(s): [id number] cc: Keri Topete; Alejandra Osborne M.D. Patient Name: KAREN ZAIDI MR#: [id number] : 1955 Exam Date: 09/30/2024 Ordering Doctor: DELIA Topete . RADIOLOGY REPORT PROCEDURE: MM TOMOSYNTHESIS SCREENING BI COMPARISON: MG MAMM SCREEN 3D CINTHYA CAD, 08/13/2022. MM TOMOSYNTHESIS SCREENING BI, 09/29/2023. INDICATIONS: Screening Calculator Name NCI Breast Cancer Risk Assessment Tool 5 Year Breast Cancer Risk 1.50% Lifetime Breast Cancer Risk 5.20% Personal Breast Cancer No Personal Ovarian Cancer No Treatments None Family Cancers None LOCATION: [facility] BREAST COMPOSITION: There are scattered areas of fibroglandulardensity. FINDINGS: DIAGNOSTIC CATEGORY 1--NEGATIVE. NO CHANGE FROM COMPARISON ASSESSMENT. RIGHT BREAST: No significant suspicious finding. LEFT BREAST: No significant suspicious finding. RECOMMENDATIONS: ROUTINE MAMMOGRAM AND CLINICAL EVALUATION IN 12 MONTHS. PLEASE NOTE: A NORMAL MAMMOGRAM DOES NOT EXCLUDE THE POSSIBILITY OFBREAST CANCER. A CLINICALLY SUSPICIOUS PALPABLE LUMP SHOULD BE BIOPSIED. Dictated by: Boogie Mina MD on 09/30/2024 at 09:55 Approved by: Boogie Mina MD on 09/30/2024 at 09:56 Dictated By: Boogie Mina M.D. Signed By:09/30/24 0957 DD/ 0956 TD/TT: Harvest Worker Fruit: [facility] Final Result * THINPREP PAP AND HPV MRNA E6/E7 W/RFL HPV 16,18/45 (05/29/2023 9:59 AM EDT) us [facility] BLOOD ORDERABLES Final Resul t EXTERNAL LAB from Last 3 Months or Most Recently Relevant to Health Maintenance Insurance MEDICARE [employer] Care Teams Engine Hostler Relationship Specialty Start Date End Date Alejandra Osborne MD PCP - General Family Medicine 03/18/23
--- OUTSIDE RECORDS SUMMARY | 2025-06-06 10:59 | XMS_ITS | Clinical Summary ---
Author Organization [facility] Address [id number] [address] [place] [address] Care Team Providers Care Tax Investigator Name Role Phone Alejandra Osborne MD Primary Care Provider [phone] Allergies Active Allergy Reactions Criticality Noted Date Comments Bee Venom Protein (Honey Bee) Rash Low 12/05/2019 Clindamycin Hives,Shortness Of Breath,Rash High 06/30/2018 Codeine GI Disturbance Low 06/30/2018 Doxycycline Hyclate Rash Low 03/03/2023 Medications montelukast (SINGULAIR) 10 mg tabletIndicatio ns:seasonal allergic rhinitis Take 1 tablet (10 mg total) by mouth nightly Indications: seasonal runny nose. 8 Active fluticasone (FLONASE) 50 mcg/actuation nasal spray Administer 1 spray into each nostril in the morning. Active HYDROcodone-washington taminophen (NORCO) 5-325 mg per tablet Take 1 tablet by mouth every 6 (six) hours as needed. 3 Active gabapentin (NEURONTIN) 300 mg capsuleIndicati ons:neuropathic pain Take 1 capsule (300 mg total) by mouth 3 (three) times a day Indications: neuropathic pain. 3 Active ibuprofen (ADVIL,MOTRIN) 200 mg tablet Take 2 tablets (400 mg total) by mouth every 6 (six) hours as needed for pain. Active loratadine-pseu doephedrine (LORATADINE-D) 5-120 mg tablet extended release 12 hr Take 1 tablet by mouth every 12 (twelve) hours. 1/2 tablet- keeps right ear open Active CALCIUM CARBONATE-VITAM IN D3 ORAL Take 600 mg by mouth in the morning. Active atorvastatin (LIPITOR) 20 mg tablet Take 1 tablet (20 mg total) by mouth in the morning. 90 tablet Active cyclobenzaprine (FLEXERIL) 5 mg tablet Take 2 tablets (10 mg total) by mouth 3 (three) times a day as needed for muscle spasms. 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 03/29/2020 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 Encounters Date Type Department Care Team Description 04/25/2025 9:27 AM EDT - 04/25/2025 11:59 PM EDT Hospital Encounter [facility] [address] [place] [phone] Pulmonary nodule Discharge Disposition: Home 04/24/2025 Travel from Last 3 Months Family History Medical History Relation Name Comments Stroke Brother Aneurysm Father Aneurysm Mother Anesthesia problems Neg Hx Relation Name Status Comments Brother Father Mother Social History Tobacco Use Types Packs/Day Years Used Date Smoking Tobacco: Former Cigarettes 1 30 0 02/07/1970 - 02/08/2000 Passive Smoke Exposure: Past Smokeless Tobacco: Never Tobacco Cessation:Counseling Given: Not Answered Alcohol Use Standard Drinks/Week Comments Yes 0 [...] got money to buy more. Never True 11/12/2023 Within the past 12 months th e food we bought just didn't last and we didn't have money to get more. Never True 11/12/2023 Purpose - Life Answer Date Recorded Purpose and direction in life Unknown Comments No Sex and Gender Information Value Date Recorded Sex Assigned at Not on file Legal Sex Female 11:29 AM EDT Gender Identity Not on file Sexual Orientation Not on file Last Filed Vital Signs Vital Sign Reading Time Taken Comments Blood Pressure 130/72 11/24/2023 5:05 PM EST Pulse 69 11/24/2023 5:05 PM EST Temperature 36.8 C (98.3 F) 07/26/2024 10:19 AM EDT Respiratory Rate 18 11/24/2023 5:05 PM EST Oxygen Saturation 96% 11/24/2023 5:05 PM EST Inhaled Oxygen Concentration - - Weight 62.7 kg (138 lb 3.2 oz) 07/26/2024 10:19 AM EDT Height 170.2 cm (5' 7.01 ) 07/26/2024 10:19 AM E DT Body Mass Index 21.64 07/26/2024 10:19 AM EDT Plan of Treatment Upcoming Encounters Date Type Department Care Team ([facility] Contact Info) Description 08/09/2025 11:00 AM EDT Office Visit [facility] [address] [place] [address], [address] [place] [address] Sarah Palma MD [address] [facility] [facility] [place] [address] Health Maintenance Due Date Last Done Comments Depression Screening 1969 DTaP,Tdap and Td Vaccines (1 - Tdap) 1976 Fall Risk Screening 2022 COVID-19 Vaccine (4 - 2023-2 5 season) 2024 09/12/2021, 01/05/2021, 12/06/2020 Influenza Vaccine 06/13/2025 07/20/2021, , 08/11/2019, Additional history exists Adult BMI Screening 07/26/2025 07/26/2024 Tobacco Screening 07/26/2025 07/26/2024 Colonoscopy 07/23/2028 07/23/2018, 07/23/2018 Zoster (Shingles) Vaccine Completed 09/13/2020, Pap Smear Discontinued 12/06/2024, 08/04/2018 Medical Devices Not on file Procedures Procedure Name Priority Date/Time Associated Diagnosis Comments CT CHEST WO CONT Routine 04/25/2025 9:39 AM EDT Pulmonary nodule PROVATION COLONOSCOPY Routine 07/23/2018 7:03 AM EDT from Last 3 Months or Most Recently Relevant to Health Maintenance Results * CT chest without contrast (04/25/2025 9:39 AM EDT) Anatomical Region Laterality Modality Body, Lung, Chest, Body Covera N/A C omputed Tomography 04/28/2025 1:49 PM EDT Narrative 04/28/2025 1:55 PM EDT Study: CT chest without contrast History:Pulmonary nodule Protocol:CT chest without contrast Contrast none COMPARISON:05/10/2024 Findings: Lungs:5.5 mm pulmonary nodule series 606 image 63 superior segment of the left lower lobe unchanged. No pleural scarring in the right upper lobe is unchanged. Centrilobular emphysema. No additional pulmonary nodules. Lower Neck:Normal Mediastinum:No adenopathy Ana:No adenopathy Vessels:Mild dilatation of the ascending thoracic aorta up to 3.9 cm. There is severe dilatation of the main pulmonary artery up to approximately 4.6 cm correlate with any signs or symptoms of pulmonary arterial hypertension. Heart:Size no pericardial effusion moderate coronary artery calcification Pleura:No effusion Chest wall:Normal Upper abdomen:Mild aneurysmal dilatation of the upper abdominal aorta transverse diameter is 3.2 cm Bones:Degenerative changes in the mid thoracic spine Impression: * 5.5 mm pulmonary nodule series 606 image 63 superior segment of the left lower lobe unchanged. * Right upper lobe pleural and parenchymal scarring. Unchanged. * emphysema. * There is severe dilatation of the main pulmonary artery up to approximately 4.6 cm correlate with any signs or symptoms of pulmonary arterial hypertension. * Mild aneurysmal dilatation of the upper abdominal aorta transverse diameter is 3.2 cm * Mild dilatation of the ascending thoracic aorta up to 3.[address] scans at this facility use dose modulation, iterative reconstruction, and/or weight based dosing when appropriate to reduce radiation dose to as low as reasonably achievable. Computer aided detection for pulmonary nodules was performed utilizing StudyEdge software. Finalized by Dayday Rodriguez MD on 04/28/2025 1:55 PM Procedure Note Dayday Rodriguez MD - 04/28/2025 Study: CT chest without contrast History:Pulmonary nodule Protocol:CT chest without contrast Contrast none COMPARISON:05/10/2024 Findings: Lungs:5.5 mm pulmonary nodule series 606 image 63 superior segment of theleft lower lobe unchanged. No pleural scarring in the right upper lobe isunchanged. Centrilobular emphysema. No additional pulmonary nodules. Lower Neck:Normal Mediastinum:No adenopathy Ana:No adenopathy Vessels:Mild dilatation of the ascending thoracic aorta up to 3.9 cm.There is severe dilatation of the main pulmonary artery up toapproximately 4.6 cm correlate with any signs or symptoms of pulmonaryarterial hypertension. Heart:Size no pericardial effusion moderate coronary arterycalcification Pleura:No effusion Chest wall:Normal Upper abdomen:Mild aneurysmal dilatation of the upper abdominal aortatransverse diameter is 3.2 cm Bones:Degenerative changes in the mid thoracic spine Impression: * 5.5 mm pulmonary nodule series 606 image 63 superior segment of theleft lower lobe unchanged. * Right upper lobe pleural and parenchymal scarring. Unchanged. * emphysema. * There is severe dilatation of the main pulmonary artery up toapproximately 4.6 cm correlate with any signs or symptoms of pulmonaryarterial hypertension. * Mild aneurysmal dilatation of the upper abdominal aorta transversediameter is 3.2 cm * Mild dilatation of the ascending thoracic aorta up to 3.[address] scans at this facility use dose modulation, iterativereconstruction, and/or weight based dosing when appropriate to reduceradiation dose to as low as reasonably achievable. Computer aided detection for pulmonary nodules was performed utilizingStudyEdge software. Finalized by Dayday Rodriguez MD on 04/28/2025 1:55 PM us Tessa Steven DO IMG CT ORDERABLES Final Resul t * ES colonoscopy imaging (07/23/2018 7:03 AM EDT) Narrative SYSTEMGENERATED, DOCUMENTATION - 07/23/2018 7:03 AM EDT This order has been auto-finalized for image and report archival. *See procedures tab in Epic or report included with PACS images for full interpretation.* us Frank Christine DO IMG OR IMG ORDERABLES Final Result from Last 3 Months or Most Recently Relevant to Health Maintenance Insurance [address] [place] [phone] MEDICARE [facility] Care Teams Tax Investigator Relationship Specialty Start Date End Date Alejandra Osborne MD [address] [place] [address] PCP - General 06/18/18
--- OUTSIDE RECORDS SUMMARY | 2025-06-06 10:59 | XMS_ITS | Encounter Summary ---
Author Organization [facility] Address [address] [place] [address] Care Team Providers Care Industrial Equipment Wirer Name Role Phone Alejandra Osborne MD Primary Care Provider [phone] Encounter Details Date Type Department Care Team (Late st Contact Info) Description 06/02/2025 Bamboo flowsheet [facility] [address] [place] [phone] Tessa Steven DO [address] [place] [address] Social History Tobacco Use Types Packs/Day Years [...] Description 12/08/2025 9:00 AM EST Office Visit [facility] [address] [place] [phone] Keri Topete PA [address] [place] [address] 06/01/2026 8:45 AM EDT Office Visit [facility] [address] [place] [phone] Tessa Steven, [address] [place] [address] documented as of this encounter Visit Diagnoses Not on filedocumented in this encounter Care Teams Industrial Equipment Wirer Relationship Specialty Start Date End Date Alejandra Osborne MD PCP - General Family Medicine 03/18/23 documented as of this encounter
--- OUTSIDE RECORDS SUMMARY | 2025-06-06 10:59 | XMS_ITS | Encounter Summary ---
Author Organization [facility] Address [address] [place] [address] Care Team Providers Care Command And Control Officer Name Role Phone Alejandra Osborne MD Primary Care Provider [phone] Encounter Details Date Type Department Care Team (Late st Contact Info) Description 09/30/2024 Clinisync Result Encounter [facility] Department Unsolicited Keri Topete PA [address] [place], [facility]11 Social History Tobacco Use Types Packs/Day Years [...] MIRANDA [address] [place] [phone] Keri Topete PA [address] [place] [id number] 06/01/2026 8:45 AM EDT Office Visit [facility] [address] [address] Tenisha Tessa Jose Manuel, DO [address] [place] [address] documented as of this encounter Procedures Procedure Name Priority Date/Time Associated Diagnosis Comments MM TOMOSYNTHESIS SCREENING BI 09/30/2024 9:56 AM EST documented in this encounter Results * MM TOMOSYNTHESIS SCREENING BI (09/30/2024 9:56 AM EST) Anatomical Region Laterality Modality Other 09/30/2024 9:56 AM EST Narrative 09/30/2024 9:57 AM EST The [address] [address] Mammography Report Signed Patient: KAREN ZAIDI MR#: [id number] : 1955 Acct:[id number] Age/Sex: 69 / F ADM Date: 09/30/24 Loc: MAMMO Attending Dr: Keri Topete Ordering Physician: Keri Topete Results: Date of Service: 09/30/24 Follow Up: Procedure(s): MM tomosynthesis screening BI Accession Number(s): [id number] cc: Keri Topete; Alejandra Osborne M.D. Patient Name: KAREN ZAIDI MR#: [id number] : 1955 Exam Date: 09/30/2024 Ordering Doctor: [...] Treatments None Family Cancers None LOCATION: [facility] BREAST COMPOSITION: There are scattered areas [...] Mina M.D. Signed By: 09/30/24 0957 DD/ TD/TT: Nps: Procedure Note Radiology, Radiologist, MD - 09/30/2024 [place] [address] Mammography Report Signed Patient: KAREN ZAIDI KMR#: [id number] : 1955cct:[id number] Age/Sex: 69 / FADM Date: 09/30/24 Loc: MAMMO Attending Dr: Keri Topete Ordering Physician: Keri TopeteResults: Date of Service: 09/30/24Follow Up: Procedure(s): MM tomosynthesis screening BI Accession Number(s): [id number] cc: Keri Topete; Alejandra Osborne M.D. Patient Name: KAREN ZAIDI MR#: [id number] : 1955 Exam Date: 09/30/2024 Ordering Doctor: [...] Treatments None Family Cancers None LOCATION: [facility] BREAST COMPOSITION: There are scattered areas [...] 09:56 Dictated By: Boogie Mina M.D. Signed By:09/30/2457 DD/ 5 TD/TT: Nps: us [facility] Final Result documented in this encounter Visit Diagnoses Not on filedocumented in this encounter Care Teams Command And Control Officer Relationship Specialty Start Date End Date Alejandra Osborne MD PCP - General Family Medicine 03/18/23 documented as of this encounter
--- OUTSIDE RECORDS SUMMARY | 2025-06-06 11:00 | XMS_ITS | Encounter Summary ---
Author Organization [facility] Address [address] [place] [address] Care Team Providers Care Wool Spotter Name Role Phone Alejandra Osborne MD Unavailable [phone] Alejandra Osborne MD Primary Care Provider [phone] Source Comments In the event this information is protected by the Federal Confidentiality of Alcohol and Drug AbusePatient Records regulations: The Federal rules restrict any use of the information to criminally investigate or prosecute any alcohol or drug abuse patient.[facility] Encounter Details Date Type Department Care Team (Late st Contact Info) Description 04/12/2024 Patient Msg Gynecology [address] [address] Provider, Yuval Perlvic pain questionnaire Social History Tobacco Use Types Packs/Day Years Used Date Smoking Tobacco: Former Cigarettes 2010 Passive Smoke Exposure: Never Smokeless Tobacco: Never Alcohol Use Standard Drinks/Week Comments Not Currently 0 (1 standard drink = 0.6 oz pur e alcohol) Area Deprivation Index Answer Date Keron rded National Score (1-100), lower number is lower ri sk 64 12/18/2023 State Score (1-10), lower number is lower risk 4 12/18/2023 Data from: https://www.neighborhoodatlas.medicine.[facility]/. Last address used for calculation [address] [...] 10:30 AM EDT Office Visit [facility] [address] [place] [address] Sveta Strong MD [address] [place], [place] [phone] lvm and elodia appt rs from 06/07/25 07/07/2025 1:00 PM EDT Office Visit Gynecology [address] [place] [address] Augustina Vargas MD [address] [place], [place] [phone] Botox injection 08/02/2025 12:20 PM EDT Office Visit Rheumatology [address] [place] [address] Gi Siddiqi MD [address] [place] [address] Follow up Osteoporosis documented as of this encounter Visit Diagnoses Not on filedocumented in this encounter Care Teams Wool Spotter Relationship Specialty Start Date End Date Alejandra Osborne MD [address] [place] [phone] PCP - General Family Medicine 12/18/23 Alejandra Osborne MD [address] [place] [address] Referring Family Medicine 09/08/23 documented as of this encounter
--- OUTSIDE RECORDS SUMMARY | 2025-06-06 11:00 | XMS_ITS | Encounter Summary ---
Author Organization [facility] Address [id number] [address] [place] [address] Care Team Providers Care Vending Machine Repairer Name Role Phone Alejandra Osborne MD Primary Care Provider [phone] Reason for Referral * Diagnostic Imaging (Routine) - Closed Specialty Diagnoses / Procedures Referred By Noir moore Referred To Contact Radiology Diagnoses Neck pain on right side Sialoadenitis Sublingual gland swelling Procedures MR neck soft tissue with and without contrast Sarah Palma MD [address] [address] Phone: tel: fax: Referral ID Status Reason Start Date Expiration Date Visits Re quested Visits Authorized [id number] Closed 06/30/2020 06/30/2021 1 1 Encounter Details Date Type Department Care Team (Late st Contact Info) Description 06/30/[address] [facility] [place] - ENT [address] [facility] [place] [phone] Sarah Palma MD [address] [facility] [address] [place] [address] Social History Tobacco Use Types Packs/Day Years Used Date Smoking Tobacco: Former Cigarettes Q uit: 02/08/2000 Smokeless Tobacco: Never Comments:15-20 year ago Alcohol Use Standard Drinks/Week Comments No 0 (1 standard drink = 0.6 oz pur e alcohol) AUDIT-C Answer Date Recorded Frequency of Alcohol Consumption Never 02/08/2020 Average Number of Drinks Not on file 020 Frequency of Binge Drinking Not on file 01/12 PHQ-2 Answer Date Recorded Total Score 2 03/29/2020 Childcare Answer Date Recorded Childcare Unknown 03/24/2019 Employment Answer Date Recorded Employment Unknown 03/24/2019 Comments No Sex and Gender Information Value Date Recorded Sex Assigned at Not on file Legal Sex Female 11:29 AM EDT Gender Identity Not on file Sexual Orientation Not on file COVID-19 Exposure Response Date Recorded In the last month, have you been in contact with someone who was confirmed or suspected to have Coronavirus / COVID-19? No / Unsure 06/22/2020 3:00 PM EDT documented as of this encounter Miscellaneous Notes * Telephone Encounter - Sarah Palma MD - 06/30/2020 2:13 PM EDT I spoke with Dr. De Leon regarding fullness and pain along the right sublingual gland. We will obtain an MRI to evaluate this region. We will then attempt to push the images to [place] or at least send a disc so that he can evaluate them prior to the patient's next surgery in July. I have called the patient to inform her this but had to leave a message. Michelle--can you please send her a copy of the order and also call her back to let her know to call [phone] to schedule the MRI? Thanks. documented in this encounter Plan of Treatment Upcoming Encounters Date Type Department Care Team (Late st Contact Info) Description 08/09/2025 11:00 AM EDT Office Visit [facility] - ENT [address] [facility] [place] [address] Sarah Palma MD [address] [facility] [address] [place] [address] documented as of this encounter Results * MR neck soft tissue with and without contrast (07/26/2020 8:29 AM EDT) Anatomical Region Laterality Modality Spine, Neck, C-spine, Head and Neck N/A Magnetic Resonance 07/27/2020 2:48 PM EDT Narrative 07/27/2020 2:56 PM EDT Indication: Salivary gland neoplasm. Right sublingual gland. Right neck pain. Sialoadenitis. Sublingual gland swelling. TECHNIQUE: Enhanced MRI of the neck is performed utilizing 11.5 mL IV ProHance contrast medium. Comparison is made to prior CT of the neck dated 02/18/2020. FINDINGS: A submandibular glands are symmetric without mass. Parotid glands are symmetric without mass. Region of sublingual salivary glands does not appear enlarged. Fascial planes within floor of mouth appear intact. The thyroid is homogeneous and not enlarged. No definite cervical lymphadenopathy appreciated. Visualized paranasal sinuses are clear. Globes appear symmetric. IACs are symmetric. IMPRESSION: 1. No definite mass or lymphadenopathy identified. Finalized by Ana Paula Marmolejo MD on 07/27/2020 2:56 PM Procedure Note Ana Paula Marmolejo MD - 07/27/2020 Indication: Salivary gland neoplasm. Right sublingual gland. Right neckpain. Sialoadenitis. Sublingual gland swelling. TECHNIQUE: Enhanced MRI of the neck is performed utilizing 11.5 mL IVProHance contrast medium. Comparison is made to prior CT of the neck dated02/18/2020. FINDINGS: A submandibular glands are symmetric without mass. Parotidglands are symmetric without mass. Region of sublingual salivary glandsdoes not appear enlarged. Fascial planes within floor of mouth appearintact. The thyroid is homogeneous and not enlarged. No definite cervicallymphadenopathy appreciated. Visualized paranasal sinuses are clear. Globes appearsymmetric. IACs are symmetric. IMPRESSION: 1. No definite mass or lymphadenopathy identified. Finalized by Ana Paula Marmolejo MD on 07/27/2020 2:56 PM us Sarah Palma MD IMG MRI ORDERABLES Final Res ult documented in this encounter Visit Diagnoses Diagnosis Neck pain on right side- Primary Sialoadenitis Sublingual gland swelling Hypertrophy of salivary gland Neck pain on right side Sialoadenitis Sublingual gland swelling Hypertrophy of salivary gland documented in this encounter Additional Health Concerns Assessment Noted Time PHQ-9 Depression Total Score: 2 03/29/20 20 1:00 PM EDT documented as of this encounter Care Teams Vending Machine Repairer Relationship Specialty Start Date End Date Alejandra Osborne MD [address] [place] [id number] PCP - General 06/18/18 documented as of this encounter
--- OUTSIDE RECORDS SUMMARY | 2025-06-06 11:00 | XMS_ITS | Patient Health Record ---
Author Organization [facility] Address [address] [place] [address] Care Team Providers Care Skatesman Name Role Phone Alejandra Osborne M.D. Primary Care Provider Unavail able Ivan Trejo Unavailable [phone] Keri Zavala Unavailable [phone] Allergies Allergen (clinical drug ingredient) Drug/Non Drug Allergy documented on EMR Reaction Allergy Type Onset Date Status BEES (uncoded) Unknown Allergy Activ e doxycycline doxycycline Unknown Drug Allergy Act silvestre clindamycin clindamycin Unknown Drug Allergy Act silvestre Results Component Value Reference Range Notes [facility] [id number] Reviewed date:12/30/2024 01:21:51 PM Interpretation: Performing Lab: Notes/Report: [facility] [id number] Reviewed date:11/02/2024 03:36:18 PM Interpretation: Performing Lab: Notes/Report: MRI : Hip Right without - [id number] Reviewed date:12/10/2024 11:43:22 AM Interpretation: Performing Lab: Notes/Report: Reason For Referral Reason NAYE................. ...........PLEASE OBTAIN AUTHORIZATION FOR MRI RIGHT HIP Diagnosis 1 Acute right hip pain (M25.551) Referral Organization [facility] Referring Provider First Name Ivan Referring Provider Last Name Neil Referring Provider Speciality Orthopedic Surgery Referred Organization [facility] Tamiko tran Referred Address [place], [place], Procedure 1 Arthroplasty Hip Tot al ([address]) General Notes PER AVAILITYWOODROW IS ACTIVE PART A AND PART B, NO AUTH REQUIRED MA NOTIFIED REF FAXED TO Marcia JAMES Kimberly 09/06/2024 11:57:50 AM > Faxed to Erika Referral Priority Routine Social History Tobacco Use: Social History Observation Description Date Details (start date - stop date) Never Smoker NA - NA AUDIT-C (Standard) Question Answer Notes Did you have a drink contain ing alcohol in the past year? Yes How often did you have six o r more drinks on one occasion in the past year? Never (0 point) How many drinks did you have on a typical day when you were drinking in the past year? 1 or 2 drinks (0 point) How often did you have a dri nk containing alcohol in the past year? Monthly or less (1 point) Points 1 Interpretation Negative Tobacco Control (Standard) Question Answer Notes Tobacco use: Nonsmoker Vital Signs Height 5'7 in 11/29/2024 Weight 135 lbs 11/29/2024 BMI 21.14 11/29/2024 Encounters Encounter Location Date Provider Diagnosis [address] [place] [address] 09/06/2024 Keri Zavala Acute right hip pain M25.[address] [place] [address] 09/20/2024 Ivan Trejo Closed fracture of right inferior pubic ramus, initial encounter S32.591A ; Closed fracture of superior ramus of right pubis, initial encounter S32.511A and Closed fracture of superior ramus of left pubis, initial encounter S32.512A [address] [address] 11/01/2024 Keri Zavala Closed fracture of superior ramus of right pubis, initial encounter S32.511A ; Closed fracture of right inferior pubic ramus, initial encounter S32.591A and Closed fracture of superior ramus of left pubis, initial encounter S32.512A [address] [place] [address] 11/29/2024 Keri Zavala Closed fracture of superior ramus of left pubis, initial encounter S32.512A ; Closed fracture of superior ramus of right pubis, initial encounter S32.511A and Closed fracture of right inferior pubic ramus, initial encounter S32.591A Assessments Encounter Date Diagnosis (ICD Code) Assessment Notes Treatment Notes Treatment Clinical Notes Section Notes 09/06/2024 Acute right hip pain (ICD-10 - M25.551) 09/20/2024 Closed fracture of superior ramus of right pubis, initial encounter (ICD-10 - S32.511A) 09/20/2024 Closed fracture of right inferior pubic ramus, initial encounter (ICD-10 - S32.591A) 11/01/2024 Closed fracture of superior ramus of right pubis, initial encounter (ICD-10 - S32.511A) 11/01/2024 Closed fracture of right inferior pubic ramus, initial encounter (ICD-10 - S32.591A) 11/29/2024 Closed fracture of superior ramus of left pubis, initial encounter (ICD-10 - S32.512A) 11/29/2024 Closed fracture of superior ramus of right pubis, initial encounter (ICD-10 - S32.511A) 11/29/2024 Closed fracture of right inferior pubic ramus, initial encounter (ICD-10 - S32.591A) 11/01/2024 Closed fracture of superior ramus of left pubis, initial encounter (ICD-10 - S32.512A) 09/20/2024 Closed fracture of superior ramus of left pubis, initial encounter (ICD-10 - S32.512A) 09/06/2024 Other For the patient 's right hip pain I have ordered an MRI of the right hip to evaluate for occult fracture/muscle injury. I recommended that she remain nonweightbearing with the use of crutches and hold on her pelvic floor physical therapy for now. We will see her back after imaging is obtained to review and offer further recommendations. 09/20/2024 Other For her right sacral fracture and right superior and inferior pubic ramus fractures she will continue with use of crutches and protected weightbearing on the right side. For the left pubic ramus fracture she may weight-bear as tolerated. She will follow-up in 6 weeks to repeat x-rays and reassess her progress. 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 Import medication 11/01/2024 Other Patient's pain is much improved today 2 months after her fall on 09/02. At this time she can wean off of crutch use as tolerated by pain. 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 She can return to physical therapy as tolerated as she states that will take a few weeks to get back into it anyway. We will see her back in 4 weeks to repeat x-rays and reassess her progress. 11/29/2024 Other Patient is dionicio darden well after her fall on 09/02. She is now almost 12 weeks out from her multiple pelvic fractures. Clinically she is doing well and has healed fractures on x-ray. We will see her back on an as-needed basis. Plan Of Treatment No Information Insurance Providers Payer Name Payer Address Payer Phone Subscriber Number Group Number Insured Name Patient Relationship to Insured Coverage Start Date Coverage End [place] [address] [place] [place] [address] [id number] ZAYNAB LUTZ Self - patient is the insured [facility] SUPPLEMENT [address] [place] [address] [id number] ZAYNAB LUTZ Self - patient is the insured
--- OUTSIDE RECORDS SUMMARY | 2025-06-06 11:00 | XMS_ITS | Encounter Summary ---
Author Organization [facility] Address [facility]-[id number] [address] [place] [address] Care Team Providers Care Cost Analyst Name Role Phone Alejandra Osborne MD Primary Care Provider [phone] Reason for Referral * Diagnostic Imaging (Routine) - Closed Specialty Diagnoses / Procedures Referred By Contac t Referred To Contact Radiology Diagnoses Pain Procedures CT lumbar spine with and without contrast [facility] [address] [place] [address] Phone: tel: fax: Referral ID Status Reason Start Date Expiration Date Visits Re quested Visits Authorized [id number] Closed 03/20/2023 03/19/2024 1 1 Encounter Details Date Type Department Care Team (Late st Contact Info) Description 03/20/2023 Orders Only [facility] [address] [place] [phone] Transcribe, Orders Support User Pain (Primary Dx) Social History Tobacco Use Types [...] Office Visit [facility] - ENT [address] [place] [address], [address] [place] [address] [place] [address] [place] [address] [address] [place] [address] documented as of this encounter Results * CT lumbar spine with and without contrast (03/18/2023 5:10 PM EDT) us Scanning Provider External IMG CT ORDERABLES Fin al Result documented in this encounter Visit Diagnoses Diagnosis Pain- Primary Generalized pain documented in this encounter Additional Health Concerns Assessment Noted Time PHQ-9 Depression Total Score: 2 03/29/20 20 1:00 PM EDT documented as of this encounter Care Teams Cost Analyst Relationship Specialty Start Date End Date Alejandra Osborne MD [address] [place] [address] PCP - General 06/18/18 documented as of this encounter
--- OUTSIDE RECORDS SUMMARY | 2025-06-06 11:00 | XMS_ITS | Encounter Summary ---
Author Organization [facility] Address [address] [place] [address] Care Team Providers Care Station Chief Name Role Phone Alejandra Osborne MD Unavailable [phone] Alejandra Osborne MD Primary Care Provider [phone] Source Comments In the event this information is protected by the Federal Confidentiality of Alcohol and Drug AbusePatient Records regulations: The Federal rules restrict any use of the information to criminally investigate or prosecute any alcohol or drug abuse patient.[facility] Reason for Visit * Reason Comments Abstract CPP - NPAF abstract Encounter Details Date Type Department Care Team (Late st Contact Info) Description 04/21/2024 Abstract Gynecology [address] [place] [address] Augustina Vargas MD [address] [place] [address] Abstract (CPP - NPAF abstract) Social History Tobacco Use Types Packs/Day Years [...] risk 4 12/18/2023 Data from: https://www.neighborhoodatlas.medicine.[facility]/. Last address used for calculation [address] [...] 10:30 AM EDT Office Visit [facility] [address] [place] [address] Sveta Strong MD [address] [place], [place] [phone] lvm and elodia appt rs from 06/07/25 07/07/2025 1:00 PM EDT Office Visit Gynecology [address] [place] [address] Augustina Vargas MD [address] [place], [place] [phone] Botox injection 08/02/2025 12:20 PM EDT Office Visit Rheumatology [address] [place] [address] Gi Siddiqi MD [address] [place] [address] Follow up Osteoporosis documented as of this encounter Visit Diagnoses Not on filedocumented in this encounter Care Teams Station Chief Relationship Specialty Start Date End Date Alejandra Osborne MD [address] [place] [address] PCP - General Family Medicine 12/18/23 Alejandra Osborne MD [address] [place] [address] Referring Family Medicine 09/08/23 documented as of this encounter
--- OUTSIDE RECORDS SUMMARY | 2025-06-06 11:00 | XMS_ITS | Encounter Summary ---
Author Organization [facility] Address [address] [place] [address] Care Team Providers Care Database Administrator Name Role Phone Alejandra Osborne MD Unavailable [phone] Alejandra Osborne MD Primary Care Provider [phone] Source Comments In the event this information is protected by the Federal Confidentiality of Alcohol and Drug AbusePatient Records regulations: The Federal rules restrict any use of the information to criminally investigate or prosecute any alcohol or drug abuse patient.[facility] Encounter Details Date Type Department Care Team (Late st Contact Info) Description 05/01/2024 [place] [address] Provider, [facility] Actionable Imaging Result Notification Patient Outreach Social History Tobacco Use Types Packs/Day Years [...] is lower risk 4 12/18/2023 Data from: https://www.neighborhoodatlas.[facility]/. Last address used for calculation [address] [...] AM EDT Office Visit [facility] [address] [place] [address] Sveta Strong MD [address] [place], [place] [phone] lvm and elodia appt rs from 06/07/25 07/07/2025 1:00 PM EDT Office Visit Gynecology [address] [place] [address] Augustina Vargas MD [address] [place], [place] [phone] Botox injection 08/02/2025 12:20 PM EDT Office Visit Rheumatology [address] [place] [address] Gi Siddiqi MD [address] [place] [address] Follow up Osteoporosis documented as of this encounter Visit Diagnoses Not on filedocumented in this encounter Care Teams Database Administrator Relationship Specialty Start Date End Date Alejandra Osborne MD [address] [place] [address] PCP - General Family Medicine 12/18/23 Alejandra Osborne MD [address] [place] [address] Referring Family Medicine 09/08/23 documented as of this encounter
--- OUTSIDE RECORDS SUMMARY | 2025-06-06 11:00 | XMS_ITS | Encounter Summary ---
Author Organization [employer] Address [facility]-[id number] [address] [place] [address] Care Team Providers Care Street Car Inspector Name Role Phone Alejandra Osborne MD Primary Care Provider [phone] Encounter Details Date Type Department Care Team (Late st Contact Info) Description 05/14/2023 Telephone [facility] [address] [place] [phone] Raoul Gallardo MD [address] [place], [place] [id number] Social History Tobacco Use Types Packs/Day Years [...] encounter Miscellaneous Notes * Telephone Encounter - Keri Jernigan - 05/14/2023 6:35 AM EDT This is notification that we have received a referral for the patient. Please reach out to schedulenew patient appointment in your office. Please check the referral tab in appt desk for details and to make sure to assign referral or schedule off of it. Thank you. * Telephone Encounter - FRANCISCO JAVIER Lerner - 05/14/2023 6:35 AM EDT Appt made documented in this encounter Plan of Treatment Upcoming Encounters Date Type Department Care Team ([facility] st Contact Info) Description 08/09/2025 11:00 AM EDT Office Visit [facility] - ENT [address] [place] [address], [address] [place] [address] Sarah Palma MD [address] [facility] [address] [place] [address] documented as of this encounter Visit Diagnoses Not on filedocumented in this encounter Additional Health Concerns Assessment Noted Time PHQ-9 Depression Total Score: 2 03/29/20 20 1:00 PM EDT documented as of this encounter Care Teams Street Car Inspector Relationship Specialty Start Date End Date Alejandra Osborne MD [address] [place] [address] PCP - General 06/18/18 documented as of this encounter
--- OUTSIDE RECORDS SUMMARY | 2025-06-06 11:00 | XMS_ITS | Encounter Summary ---
Author Organization [facility] [employer] tem Address [facility]-[id number] [address] [place] [address] Care Team Providers Care Career Development Coordinator Name Role Phone Alejandra Osborne MD Primary Care Provider [phone] Encounter Details Date Type Department Care Team (Late st Contact Info) Description 06/13/2020 Telephone [facility] [address] [facility], [address] [address] Sarah Palma MD [address] [facility] [address] [place] [address] Social History Tobacco Use Types [...] encounter Miscellaneous Notes * Telephone Encounter - Kira Alfonso - 06/13/2020 2:50 PM EDT Pt had surgery in [place] on 05/25/2020. Pt feels like she has a lump between her jaw and the top of her incision. She said she can feel it under her tongue. Pt called the surgeon's office yesterday because she was in extreme pain. They recommended she see her ENT here now that she is home and that she may need a CT. Her surgeon is Dr Rakesh De Leon. He can be reached through the physician access line at [phone] if you would like to speak to him. Please advise if pt should be scheduled for an appointment of if you would like to order the CT first. * Telephone Encounter - Sarah Palma MD - 06/13/2020 2:50 PM EDT Please call to get the story on this. 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 I need to know what exactly was performed (we may need to call to get the operative report), the date of surgery, and whether thedoctor at [place] saw her back for a follow up appointment (and when that appointment was). We can order the CT scan of the neck with contrast, but I will first need this information. Thanks. * Telephone Encounter - Celeste Tobar CMA - 06/13/2020 2:50 PM EDT I called and left a message on the patients voicemail to call me back as I would like some further information regarding her symptoms and what is going on with her currently. * Telephone Encounter - Celeste Tobar CMA - 06/13/2020 2:50 PM EDT Patient called back regarding her symptoms. She states that she saw Dr. Morillo and had an angiogram.Patient was sent to Dr. Lucas Loera, vascular surgeon who stated that her bilateral jugular veins were being compressed by her issues with her styloid process. 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 Patient underwent left styloidectomy and removal of cranial base bone 2h on 05/25/20. S She states that she was doing well however; during the post operative period, she began experiencing a stabbing pain in the throat. She saw Dr. De Leon regarding this issue and it was stated that this may be nerve related pain. She was sent home to [place] on Tylenol 650mg Q 4 hrs. She is also takingTrental 400mg TID prescribed by Dr. Loera. Patient states she is feeling a bump with her tongue on the right Midline buccal mucosal area. She is inquiring if this is a salivary stone as she is still having moderate pain or could this be due to her Wainwright syndrome? Would a CT scan be helpful? What are your thoughts? * Telephone Encounter - Sarah Palma MD - 06/13/2020 2:50 PM EDT Ok to schedule appointment next week in open slot. I think I should assess before ordering any studies. Thanks. * Telephone Encounter - Jovana Monroe - 06/13/2020 2:50 PM EDT Contacted patient and scheduled for at 3:15 documented in this encounter Plan of Treatment Upcoming Encounters Date Type Department Care Team (Late st Contact Info) Description 08/09/2025 11:00 AM EDT Office Visit [facility] - ENT [address], [address] [place] [address] Sarah Palma MD [address] [facility] [address] [place] [address] documented as of this encounter Visit Diagnoses Not on filedocumented in this encounter Additional Health Concerns Assessment Noted Time PHQ-9 Depression Total Score: 2 03/29/20 20 1:00 PM EDT documented as of this encounter Care Teams Career Development Coordinator Relationship Specialty Start Date End Date Alejandra Osborne MD [address] [place] [id number] PCP - General 06/18/18 documented as of this encounter
--- OUTSIDE RECORDS SUMMARY | 2025-06-06 11:00 | XMS_ITS | Encounter Summary ---
Author Organization [facility] tem Address [facility][id number] [address] [place] [address] Care Team Providers Care Pedodontist Name Role Phone Alejandra Osborne MD Primary Care Provider [phone] Encounter Details Date Type Department Care Team (Late st Contact Info) Description 10/07/2023 Telephone [facility] - ENT [address] [place] [address], [address] [place] [address] Sarah Palma MD [address] [facility] [address] [place] [address] Social History Tobacco Use Types [...] Telephone Encounter - Sarah Palma MD - 10/07/2023 8:06 AM EST ----- Message from Oliver Hurley sent at 10/03/2023 2:53 PM EST ----- Regarding: fidel Patient is calling to schedule surgery and I have no paperwork Thanks Oliver * Telephone Encounter - Sarah Palma MD - 10/07/2023 8:06 AM EST Surgery Scheduling Request 10/07/23 Patient: Karen Zaidi : 1955 Surgical Procedure(s): sialoendoscopy right submandibular duct Side(s):right Anesthesia: General Surgery Time: 1.5h Facility Preference: [facility] Admission status: Outpatient Medical Clearance Required?: No Stereotactic Navigation? No Nerve Monitor? No ASA Level? 2 Special Equipment? sialoendoscopy Follow-up Interval 1-2 weeks Follow-up Provider (SHIP'S CAPTAIN or Physician) either Additional Comments: none documented in this encounter Plan of Treatment Upcoming Encounters Date Type Department Care Team (Late st Contact Info) Description 08/09/2025 11:00 AM EDT Office Visit [facility] - ENT [address] [place] [address], [address] [place] [address] [place] [address] [place] [address] [address] [place] [address] documented as of this encounter Visit Diagnoses Not on filedocumented in this encounter Additional Health Concerns Assessment Noted Time PHQ-9 Depression Total Score: 2 03/29/20 20 1:00 PM EDT documented as of this encounter Care Teams Pedodontist Relationship Specialty Start Date End Date Alejandra Osborne MD [address] [id number] PCP - General 06/18/18 documented as of this encounter
--- OUTSIDE RECORDS SUMMARY | 2025-06-06 11:00 | XMS_ITS | Encounter Summary ---
Author Organization [facility] tem Address [facility][id number] [address] [place] [address] Care Team Providers Care Station Master Name Role Phone Alejandra Osborne MD Primary Care Provider [phone] Encounter Details Date Type Department Care Team (Late st Contact Info) Description 11/14/2023 Telephone [facility] - ENT [address] [place] [address], [address] [place] [address] Sarah Palma MD [address] [facility] [address] [place] [address] Social History Tobacco Use Types [...] encounter Miscellaneous Notes * Telephone Encounter - Oliver Hurley - 11/14/2023 9:07 AM EST Called the patient to let her know she needs to be off her Motrin 10 days prior to surgery. Patientwas agreeable and will discontinue. documented in this encounter Plan of Treatment Upcoming Encounters Date Type Department Care Team (Late st Contact Info) Description 08/09/2025 11:00 AM EDT Office Visit [facility] - ENT [address] [place] [address], [address] [place] [address] [place] [address] [place] [address] [address] [place] [address] documented as of this encounter Visit Diagnoses Not on filedocumented in this encounter Additional Health Concerns Assessment Noted Time PHQ-9 Depression Total Score: 2 03/29/20 20 1:00 PM EDT documented as of this encounter Care Teams Station Master Relationship Specialty Start Date End Date Alejandra Osborne MD [address] [place] [address] PCP - General 06/18/18 documented as of this encounter
--- OUTSIDE RECORDS SUMMARY | 2025-06-06 11:00 | XMS_ITS | Encounter Summary ---
Author Organization [facility] tem Address [facility]-[id number] [address] [place] [address] Care Team Providers Care Furniture Removalist Name Role Phone Alejandra Osborne MD Primary Care Provider [phone] Encounter Details Date Type Department Care Team (Late st Contact Info) Description 11/13/2023 Telephone [facility] - ENT [address] [place] [address], [address] [place] [address] Sarah Palma MD [address] [facility] [address] [place] [address] Social History Tobacco Use Types [...] * Telephone Encounter - Oliver Hurley - 11/13/2023 11:14 AM EST Patient is calling because she is scheduled for surgery on 11/24 and 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 Vascular at [facility] is who told her to use 800 mg a day . * Telephone Encounter - Elida Barreto RN - 11/13/2023 11:14 AM EST 800 mg of what medication Oliver? I do not see in her med list any medication with that dosage. * Telephone Encounter - Oliver Hurley - 11/13/2023 11:14 AM EST 800mg of Motrin I do believe * Telephone Encounter - Elida Barreto RN - 11/13/2023 11:14 AM EST She should reach out to the provider that manages her Pelvic Congestion Syndrome and ask them what she can take as an alternative to NSAIDS, they will be able to advise better on what medications will be effective. * Telephone Encounter - Elida Barreto RN - 11/13/2023 11:14 AM EST Could you please call her and let her know that * Telephone Encounter - Oliver Hurley - 11/13/2023 11:14 AM EST I already spoke with the patient documented in this encounter Plan of Treatment Upcoming Encounters Date Type Department Care Team ([facility] st Contact Info) Description 08/09/2025 11:00 AM EDT Office Visit [facility] - ENT [address] [place] [address], [address] [place] [address] Sarah Palma MD [address] [facility] [address] [place] [address] documented as of this encounter Visit Diagnoses Not on filedocumented in this encounter Additional Health Concerns Assessment Noted Time PHQ-9 Depression Total Score: 2 03/29/20 20 1:00 PM EDT documented as of this encounter Care Teams Furniture Removalist Relationship Specialty Start Date End Date Alejandra Osborne MD [facility] [place] [address] PCP - General 06/18/18 documented as of this encounter
--- OUTSIDE RECORDS SUMMARY | 2025-06-06 11:00 | XMS_ITS | Encounter Summary ---
Author Organization [facility] Address [address] [place] [address] Care Team Providers Care Laundry Tub Maker Name Role Phone Alejandra Osborne MD Unavailable [phone] Alejandra Osborne MD Primary Care Provider [phone] Source Comments In the event this information is protected by the Federal Confidentiality of Alcohol and Drug AbusePatient Records regulations: The Federal rules restrict any use of the information to criminally investigate or prosecute any alcohol or drug abuse patient.[facility] Encounter Details Date Type Department Care Team (Late st Contact Info) Description 12/10/2023 Patient Msg Vascular Surg Dept [address] [place] [address] Provider, Psychiatric Vascular Surgery Appt Social History Tobacco Use Types Packs/Day Years Used Date Smoking Tobacco: Former Cigarettes 2010 Passive Smoke Exposure: Never Smokeless Tobacco: Never Alcohol Use Standard Drinks/Week Comments Not Currently 0 (1 standard drink = 0.6 oz pur e alcohol) Comments No Sex and Gender Information Value Date Recorded Sex Assigned at Not on file Legal Sex Female 4:14 PM EST Gender Identity Not on file Sexual Orientation Not on file documented as of this encounter Plan of Treatment Upcoming Encounters Date Type Department Care Team (Late st Contact Info) Description 07/04/2025 10:30 AM EDT Office Visit [facility] [address] [place] [address] Sveta Strong MD [address] [place] [address] lvm and elodia appt rs from 06/07/25 07/07/2025 1:00 PM EDT Office Visit Gynecology [address] [place] [address] Augustina Vargas MD [address] [place], [place] [phone] Botox injection 08/02/2025 12:20 PM EDT Office Visit [facility] [address] [facility] [place] [address] Gi Siddiqi MD [address] [place] [address] Follow up Osteoporosis documented as of this encounter Visit Diagnoses Not on filedocumented in this encounter Care Teams Laundry Tub Maker Relationship Specialty Start Date End Date Alejandra Osborne MD [address] [place] [address] PCP - General Family Medicine 12/18/23 Alejandra Osborne MD [address] [place] [address] Referring Family Medicine 09/08/23 documented as of this encounter
--- OUTSIDE RECORDS SUMMARY | 2025-06-06 11:00 | XMS_ITS | Encounter Summary ---
Author Organization [facility] Address [address] [place] [address] Care Team Providers Care Stem Crusher Name Role Phone Alejandra Osborne MD Unavailable [phone] Alejandra Osborne MD Primary Care Provider [phone] Source Comments In the event this information is protected by the Federal Confidentiality of Alcohol and Drug AbusePatient Records regulations: The Federal rules restrict any use of the information to criminally investigate or prosecute any alcohol or drug abuse patient.[facility] Encounter Details Date Type Department Care Team (Late st Contact Info) Description 12/29/2023 Patient Msg Urology [address] [address] Provider, [facility] Robotic surgery date Social History Tobacco Use Types Packs/Day Years [...] is lower risk 4 12/18/2023 Data from: https://www.neighborhoodatlas.medicine.[facility].edu/. Last address used for calculation [address] [...] 10:30 AM EDT Office Visit [facility] [address] [place] [address] Sveta Strong MD [address] [place], [place] [id number] lvm and elodia appt rs from 06/07/25 07/07/2025 1:00 PM EDT Office Visit Gynecology [address] [place] [address] Augustina Vargas MD [address] [place], [place] [id number] Botox injection 08/02/2025 12:20 PM EDT Office Visit Rheumatology [address] [place] [address] Gi Siddiqi MD [address] [place] [address] Follow up Osteoporosis documented as of this encounter Visit Diagnoses Not on filedocumented in this encounter Care Teams Stem Crusher Relationship Specialty Start Date End Date Alejandra Osborne MD [address] [place] [phone] PCP - General Family Medicine 12/18/23 Alejandra Osborne MD [address] [place] [address] Referring Family Medicine 09/08/23 documented as of this encounter
--- OUTSIDE RECORDS SUMMARY | 2025-06-06 11:00 | XMS_ITS | Clinical Summary ---
Author Organization [facility] Address [address] [place] [address] Care Team Providers Care Cow Puncher Name Role Phone Alejandra Osborne MD Unavailable [phone] Alejandra Osborne MD Primary Care Provider [phone] Allergies Active Allergy Reactions Criticality Noted Date Comments Clindamycin Rash,Shortness of Breath High 06/30/2018 Codeine GI Upset Low 06/30/2018 Doxycycline Rash Medium 12/18/2023 Venom-Honey Bee Rash Medium 12/05/2019 Medications atorvastatin (LIPITOR) 20 mg tablet Take 20 mg by mouth every evening. 4 Active fluticasone (FLONASE) 50 mcg/actuation nasal spray Use 1 [place] in the nose as needed for cold/allergy symptoms. Take in allergy season Active montelukast (SINGULAIR) 10 mg tablet Take 10 mg by mouth once daily. 8 Active ibuprofen (MOTRIN) 200 mg tablet Take 400 mg by mouth two times a day. 400-800 mg 3-4 PRN Active calcium carbonate/vitami n D3 (CALTRATE 600 + D ORAL) Take 600 mg by mouth two times a day. Active estradiol (ESTRACE) 0.01 % (0.1 mg/gram) vaginal creamIndications :Vaginal dryness Use 0.5 g vaginally daily at bedtime. Apply finger tipped size to vulva, urethra nightly 42.5 g 2 4 Active cyclobenzaprine (FLEXERIL) 5 mg tabletIndication s:High-tone pelvic floor dysfunction 1 tablet at bedtime as needed. Use vaginally 90 tablet 4 Active cholecalciferol, vitamin D3, (VITAMIN D3 ORAL) Take by mouth. Activ e VITAMIN B COMPLEX ORAL Take by mouth. [facility], Clinic, or Other Facility Administered Medication Ordered Dose Route Frequency Start Date End Date Status onabotulinum toxin type A 100 Units injection (BOTOX)Indications:High- tone pelvic floor dysfunction 100 Units IM EVERY 3 MONTHS 05/28/2024 Active onabotulinum toxin type A 100 Units injection (BOTOX)Indications:High- tone pelvic floor dysfunction 100 Units IM EVERY 3 MONTHS 07/06/2024 Active onabotulinum toxin type A 100 Units injection (BOTOX)Indications:High- tone pelvic floor dysfunction 100 Units IM EVERY 3 MONTHS 08/18/2024 Active Active Problems Problem Noted Date Diagnosed Date Malnutrition of moderate degree 03/03/2024 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 Sinus bradycardia on ECG 02/20/2024 Assessment & Plan (02/20/2024 7:16 AM EDT): HR on EKG from today - 54 HR on exam today 60 Denies cardiac symptoms 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 Assessment & Plan (02/19/2024 1:50 PM EDT): Sp styloidectomy Other hyperlipidemia 02/19/2024 Assessment & Plan (02/19/2024 1:50 PM EDT): Managed on Atorvastatin Ovarian varices 02/19/2024 Assessment & Plan (02/19/2024 1:51 PM EDT): 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 Encounters Date Type Department Care Team Description 05/04/2025 1:45 PM EDT Office Visit Orthopaedics [address] [place] [address] Frank Azul MD Primary osteoarthritis of right knee (Primary Dx) 05/04/2025 Travel 03/28/2025 Telephone Respiratory [place] [address] [place] [address] Gi Siddiqi MD Appointment 03/23/2025 Patient Msg Cardiology [address] [place], [place] [id number] Caty Hall, PSS Dr Strong Appointment 03/08/2025 3:30 PM EDT Office Visit Gynecology [address] [place] [address] Augustina Vargas MD High-tone pelvic floor dysfunction (Primary Dx); Trigger point of abdomen; Myalgia, other site from Last 3 Months Family History Medical History Relation Comments Heart Attack Brother Hypertension Brother Stroke Brother Aneurysm Father Hypertension Father Aneurysm Mother Hypertension Mother pulmonary embolism Mother varicose veins Mother Anesthesia Problems No Family History Relation Status Comments Brother Father Mother Social History Tobacco Use Types Packs/Day Years Used Date Smoking Tobacco: Former Cigarettes 2010 Passive Smoke Exposure: Never Smokeless Tobacco: Never Tobacco Cessation:Counseling Given: Not Answered Alcohol Use Standard Drinks/Week Comments Not Currently 0 (1 standard drink = 0.6 oz pur e alcohol) PHQ-2 Answer Date Recorded PHQ-2 score 0 05/03/2025 Area Deprivation Index Answer Date Keron rded National Score (1-100), lower number is lower ri sk 64 12/18/2023 State Score (1-10), lower number is lower risk 4 12/18/2023 Data from: https://www.neighborhoodatlas.medicine.[facility].edu/. Last address used for calculation [address] 12/18/2023 Comments No Sex and Gender Information Value Date Recorded Sex Assigned at Not on file Legal Sex Female 4:14 PM EST Gender Identity Not on file Sexual Orientation Not on file Last Filed Vital Signs Vital Sign Reading Time Taken Comments Blood Pressure 120/66 03/08/2025 3:43 PM EDT Pulse 65 02/08/2025 11:22 AM EDT Temperature 36.9 C (98.4 F) 03/05/2024 7:20 AM EDT Respiratory Rate 17 03/05/2024 7:20 AM EDT Oxygen Saturation 95% 03/05/2024 7:20 AM EDT Inhaled Oxygen Concentration - - Weight 63.1 kg (139 lb 1.8 oz) 02/08/2025 11:22 AM EDT Height 170.2 cm (5' 7 ) 02/02/2025 8:58 AM EDT Body Mass Index 21.79 02/02/2025 8:58 AM EDT Plan of Treatment Upcoming Encounters Date Type Department Care Team (Late st Contact Info) Description 07/04/2025 10:30 AM EDT Office Visit [facility]ARD INTERVENTION [facility] [address] [place] [address] Sveta Strong MD [address] [place] [address] lvm and appt rs from 06/07/25 07/07/2025 1:00 PM EDT Office Visit Gynecology [address] [place] [address] Augustina Vargas MD [address] [place], [place] [id number] Botox injection 08/02/2025 12:20 PM EDT Office Visit Rheumatology [address] [place] [address] Gi Siddiqi MD [address] [place] [address] Follow up Osteoporosis Health Maintenance Due Date Last Done Comments Cervical Cancer Screening 1968 Anxiety Screening 1975 Depression Screening 1975 Hepatitis C Screening 1975 DTaP,Tdap,Td Vaccine (1 - Tdap) [address] Colonography 2002 Cologuard (FIT-DNA) 2002 Colonoscopy 2002 Colorectal Cancer Screening 2002 Fecal Occult Blood 2002 Lipid Screening 2002 Sigmoidoscopy 2002 RSV Vaccine (1 - Risk 60-74 years 1-dose series) 2017 Pneumococcal Vaccine: 50+ (2 of 2 - PCV) 06/30/2021 06/30/2020 Medicare Annual Wellness Visit 05/13/2023 Advance Directive Discussion 10/13/2024 Influenza Vaccine (#1) 2025 , 07/14/2020, 08/11/2019, Additional history exists Lung Cancer Screening 04/25/2026 04/25/2025 , 04/25/2025, 05/10/2024, Additional history exists Bone Density Screening 02/02/2027 02/02/2025 Diabetes Screening 03/04/2027 03/04/2024, 0 03/03/2024, 03/02/2024, Additional history exists Shingrix Vaccine Completed 09/13/2020, 07/07/2020 Medical Devices Implanted Type Area Reconcilement Clerk Device Identifier Shelf Expiration Date Model / Serial / Lot Stent Inlay 4.7fr 2 Pigtail Curve Taper Blue Hydrophilic 14cm Ureteral - [id number] Implanted:Qty: 1 on 03/02/2024 by Chip Chowdary MD at [facility] Urologic Stents Left: Ureter FREDERICK JAMI 01/08/2028 [id number] / / [id number] Procedures Procedure Name Priority Date/Time Associated Diagnosis Comments HOMOCYSTEINE Routine 05/04/2025 12:51 PM EDT Vitamin B12 deficiency Heart disease, unspecified VITAMIN B12 BLOOD Routine 05/04/2025 12: 51 PM EDT Vitamin B12 deficiency VITAMIN D 25 HYDROXY Routine 05/04/2025 12:51 PM EDT Vitamin D deficiency DXA-AXIAL SKELETON Routine 02/02/2025 3: 32 PM EDT Osteoporosis, post-menopausal Other osteoporosis without current pathological fracture Age-related osteoporosis without current pathological fracture Early menopause occurring in patient age younger than 45 years History of fracture of pelvis Family history of osteoporosis in mother BASIC METABOLIC PANEL Routine 03/04/2024 1:37 AM EDT from Last 3 Months or Most Recently Relevant to Health Maintenance Results * VITAMIN D 25 HYDROXY (05/04/2025 12:51 PM EDT) Vitamin D 25 Hydroxy 47.4 31.0 - 80.0 ng/mL 05/05/2025 12:58 PM EDT [facility] Blood BLOOD SPECIMEN / Unknown Venipuncture / Unknown 05/04/2025 12:51 PM EDT 05/04/2025 12:51 PM EDT Supriya Karin TELEVISION AGENT.APPRENTICE PAINTER [facility] Final Res ult [facility] [place] [address], [place] * (ABNORMAL) VITAMIN B12 (05/04/2025 12:51 PM EDT) Pathologist [facility] Vitamin B12 >2,000(H) 232 - 1,245 pg/mL 05/05/2025 12:54 AM EDT [facility] Blood BLOOD SPECIMEN / Unknown Venipuncture / Unknown 05/04/2025 12:51 PM EDT 05/04/2025 12:51 PM EDT Supriya Karin TELEVISION AGENT.APPRENTICE PAINTER [employer] LABORAT[facility] Final Res ult Performing Organization Address City/[facility]/ZIP Co de Phone Number [facility] [address] [place] [address], [place] * (ABNORMAL) HOMOCYSTEINE (05/04/2025 12:51 PM EDT) Homocysteine 22.2(H) <15.1 umol/L 05/04/2025 6:18 PM EDT [facility] Blood BLOOD SPECIMEN / Unknown Venipuncture / Unknown 05/04/2025 12:51 PM EDT 05/04/2025 12:51 PM EDT us Supriya Karin TELEVISION AGENT.APPRENTICE PAINTER [facility] LAB[facility]AT[facility] Final Res ult [facility] [address] [facility] [address] [address], [place] * DXA-AXIAL SKELETON (02/02/2025 3:32 PM EDT) LOWEST T-SCORE -3.2 MEDIN A RADIOLOGY Anatomical Region Laterality Modality Other 02/02/2025 3:32 PM EDT Impressions 02/03/2025 8:11 AM EDT IMPRESSION: THE LOWEST T-SCORE IS -3.2 IN THE RIGHT HIP 1) DIAGNOSIS (based on BMD alone): OSTEOPOROSIS Caution: Medical conditions other than osteoporosis may cause low bone density, such as osteomalacia or renal osteodystrophy. Clinical correlation is necessary. 2) FRACTURE RISK (Based on TBS adjusted FRAX): 10-year absolute fracture risk: - major osteoporotic fracture =27.7 % % - hip fracture = 9.2 % % - A diagnosis of Osteoporosis, a 10 year probability of hip fracture greater than or equal to 3% or a 10 year probability of any major osteoporosis-related fracture greater than or equal to 20% should be considered for treatment. - DXA scanner generated FRAX calculations may slightly differ from online FRAX calculations due to differences in software versions. - All recommendations and calculations are to be considered as guidelines and should not replace sound clinical judgement - Caution: Fracture risk may be increased independent of BMD in patients with corticosteroid use, age greater than 65 years, or a history of prior fragility fracture. RECOMMENDATIONS: Follow-up in 2 years or as clinically indicated. Patients that are taking corticosteroids, are transplant recipients or have hyperparathyroidism should have annual follow-up. Follow-up scans should always be done on the same machine for accurate comparison. FOR MORE INFORMATION ABOUT DIAGNOSIS AND TREATMENT: [facility] Center for Osteoporosis and Metabolic Bone Disease:? www.ccf.org/arthritis/osteo National Osteoporosis Foundation:? www.nof.org International Society of Clinical Densitometry www.iscd.org Rotor Casting Machine Operator: TRINI Transcribe Date/Time: Feb 03 2025 8:08A Dictated by : ROBBIN SHARIF MD This examination was interpreted and the report reviewed and electronically signed by: ROBBIN SHARIF MD on Feb 03 2025 8:09AM EST Narrative 02/03/2025 8:11 AM EDT * * *Final Report* * * DATE OF EXAM: Feb 02 2025 3:32PM BRIA [id number] - BD DXA - AXIAL SKELETON / PROCEDURE REASON: multiple diagnoses * * * * Physician Interpretation * * * * EXAMINATION: DXA BONE DENSITOMETRY BD DXA - AXIAL SKELETON, BD DXA TRABECLR BONE SCORE (TBS) PATIENT DEMOGRAPHICS: Age: 69 years, Gender: Female SCANNER INFORMATION: DXA Model: [id number] Date Scanned: 02/02/2025 3:32 PM CLINICAL HISTORY: SCREENING Osteoporosis, post-menopausal Other osteoporosis without current pathological fracture Age-related osteoporosis without current pathological fracture Early menopause occurring in patient age younger than 45 years. RISK FACTORS FOR OSTEOPOROSIS AND ASSOCIATED FRACTURES REPORTED BY THIS PATIENT: Please refer to Bone Health Questionnaire in the EMR CURRENT THERAPY: Please refer to Bone Health Questionnaire in the EMR TECHNICAL LIMITATIONS: RESULTS: Lumbar Spine (L1, L2, L3, L4): Total BMD: 0.940 g/cm2, T-score: -2.0 , Z-score: -0.4 Right Femoral Neck: 0.653 g/cm2 , T-score -2.8, Z-score -1.2 Right Total Hip: 0.602 g/cm2 , T-score -3.2, Z-score -1.9 Left Femoral Neck: 0.624 g/cm2 , T-score -3.0, Z-score -1.4 Left Total Hip: 0.650 g/cm2 , T-score -2.8 , Z-score -1.5 No comparison data - the patient has not had a previous bone density in the [facility] or the previous bone density was performed on a different DXA machine (new, updated model or different location) within the [facility]. VERTEBRAL FRACTURE ASSESSMENT Not performed. TRABECULAR BONE ASSESSMENT TBS score: 1.187 Bone micro-architecture: : degraded (< or = 1.230) Procedure Note Provider, [facility] [place] - 02/03/2025 * * *Final Report* * * DATE OF EXAM: Feb 02 2025 3:32PM BRIA 0804 - BD DXA - AXIAL SKELETON / PROCEDURE REASON: multiple diagnoses * * * * Physician Interpretation * * * * EXAMINATION: DXA BONE DENSITOMETRY BD DXA - AXIAL SKELETON, BD DXA TRABECLR BONE SCORE (TBS) PATIENT DEMOGRAPHICS: Age: 69 years, Gender: Female SCANNER INFORMATION: DXA Model: [id number] Date Scanned: 02/02/2025 3:32 PM CLINICAL HISTORY: SCREENING Osteoporosis, post-menopausal Other osteoporosis without current pathological fracture Age-related osteoporosis without current pathological fracture Early menopause occurring in patient age younger than 45 years. RISK FACTORS FOR OSTEOPOROSIS AND ASSOCIATED FRACTURES REPORTED BY THIS PATIENT: Please refer to Bone Health Questionnaire in the EMR CURRENT THERAPY: Please refer to Bone Health Questionnaire in the EMR TECHNICAL LIMITATIONS: RESULTS: Lumbar Spine (L1, L2, L3, L4): Total BMD: 0.940 g/cm2, T-score: -2.0 , Z-score: -0.4 Right Femoral Neck: 0.653 g/cm2 , T-score -2.8, Z-score -1.2 Right Total Hip: 0.602 g/cm2 , T-score -3.2, Z-score -1.9 Left Femoral Neck: 0.624 g/cm2 , T-score -3.0, Z-score -1.4 Left Total Hip: 0.650 g/cm2 , T-score -2.8 , Z-score -1.5 No comparison data - the patient has not had a previous bone density in the [facility] or the previous bone density was performed on a different DXA machine (new, updated model or different location) within the [facility]. VERTEBRAL FRACTURE ASSESSMENT Not performed. TRABECULAR BONE ASSESSMENT TBS score: 1.187 Bone micro-architecture: : degraded (< or = 1.230) IMPRESSION IMPRESSION: THE LOWEST T-SCORE IS -3.2 IN THE RIGHT HIP 1) DIAGNOSIS (based on BMD alone): OSTEOPOROSIS Caution: Medical conditions other than osteoporosis may cause low bone density, such as osteomalacia or renal osteodystrophy. Clinical correlation is necessary. 2) FRACTURE RISK (Based on TBS adjusted FRAX): 10-year absolute fracture risk: - major osteoporotic fracture =27.7 % % - hip fracture = 9.2 % % - A diagnosis of Osteoporosis, a 10 year probability of hip fracture greater than or equal to 3% or a 10 year probability of any major osteoporosis-related fracture greater than or equal to 20% should be considered for treatment. - DXA scanner generated FRAX calculations may slightly differ from online FRAX calculations due to differences in software versions. - All recommendations and calculations are to be considered as guidelines and should not replace sound clinical judgement - Caution: Fracture risk may be increased independent of BMD in patients with corticosteroid use, age greater than 65 years, or a history of prior fragility fracture. RECOMMENDATIONS: Follow-up in 2 years or as clinically indicated. Patients that are taking corticosteroids, are transplant recipients or have hyperparathyroidism should have annual follow-up. Follow-up scans should always be done on the same machine for accurate comparison. FOR MORE INFORMATION ABOUT DIAGNOSIS AND TREATMENT: [facility] for Osteoporosis and Metabolic Bone Disease:? www.ccf.org/arthritis/osteo National Osteoporosis Foundation:? www.nof.org International Society of Clinical Densitometry www.iscd.org Rotor Casting Machine Operator: [email or web address] Transcribe Date/Time: Feb 03 2025 8:08A Dictated by : ROBBIN SHARIF MD This examination was interpreted and the report reviewed and electronically signed by: ROBBIN SHARIF MD on Feb 03 2025 8:09AM EST Gi Siddiqi MD [facility] Final Resul t * (ABNORMAL) BASIC METABOLIC PANEL (03/04/2024 1:37 AM EDT) [facility] Glucose 103(H) 74 - 99 mg/dL 03/04/2024 2:53 AM EDT [facility] Comment: The [place] Diabetes Association (ADA) provides guidance for cutoff [...] Standards of Medical Care in Diabetes 2016, [place] Diabetes Association. Diabetes Care. 2016.39(Suppl 1). BUN 10 7 - 21 mg/dL 03/04/2024 2:53 AM EDT [facility] Creatinine 0.81 0.58 - 0.96 mg/dL 03/04/2024 2:53 AM EDT [facility] Sodium 138 136 - 144 mmol/L 03/04/2024 2:53 AM EDT [facility] Potassium 3.9 3.7 - 5.1 mmol/L 03/04/2024 2:53 AM EDT [facility] Chloride 98 97 - 105 mmol/L 03/04/2024 2:53 AM EDT [facility] CO2 31(H) 22 - 30 mmol/L 03/04/2024 2:53 AM EDT [facility] Anion Gap 9 9 - 18 mmol/L 03/04/2024 2:53 AM EDT [facility] Calcium, Total 9.0 8.5 - 10.2 mg/dL 03/04/2024 2:53 AM EDT [facility] Estimated Glomerular Filtration Rate 80 >=60 mL/min/1.7 3m 03/04/2024 2:53 AM T [facility] Comment:Estimated Glomerular Filtration Rate (eGFR) is calculated using the 2020 CKD-EPI creatinine equation. This equation utilizes serum creatinine, sex, and age as parameters. The creatinine assay has traceable calibration to isotope dilution- mass spectrometry. Refer to KDIGO guidelines for clinical interpretation. In patients with unstable renal function, e.g. those with acute kidney injury, the eGFR may not accurately reflect actual GFR. Blood BLOOD SPECIMEN / Unknown Venipuncture / Unknown 03/04/2024 1:37 AM EDT 03/04/2024 1:47 AM EDT Cruz Chapman MD LABORATORY Jennifer l Result [facility] [address] [facility] [address] [place] [address], [place] from Last 3 Months or Most Recently Relevant to Health Maintenance Insurance MEDICARE [facility] Care Teams Cow Puncher Relationship Specialty Start Date End Date Alejandra Osborne MD [address] [place] [address] PCP - General Family Medicine 12/18/23 Alejandra Osborne MD [address] [place] [address] Referring Family Medicine 09/08/23
--- OUTSIDE RECORDS SUMMARY | 2025-06-06 11:00 | XMS_ITS | Encounter Summary ---
Author Organization [facility] Address [facility] [place] [address] Care Team Providers Care Acid Cutter Name Role Phone Alejandra Osborne MD Unavailable [phone] Alejandra Osborne MD Primary Care Provider [phone] Source Comments In the event this information is protected by the Federal Confidentiality of Alcohol and Drug AbusePatient Records regulations: The Federal rules restrict any use of the information to criminally investigate or prosecute any alcohol or drug abuse patient.[facility] Encounter Details Date Type Department Care Team (Late st Contact Info) Description 12/30/2023 Patient Msg [facility] [address] [place] [address] Provider, [facility] Pre Op Surgery Instructions Social History Tobacco Use Types Packs/Day Years [...] is lower risk 4 12/18/2023 Data from: https://www.neighborhoodatlas.medicine.[facility].edu/. Last address used for calculation [...] 10:30 AM EDT Office Visit [facility]ION [facility] [address] [place] [address] Sveta Strong MD [address], [place] [phone] lvm and mc appt rs from 06/07/25 07/07/2025 1:00 PM EDT Office Visit Gynecology [address] [place] [address] Augustina Vargas MD [address] [place], [place] [phone] Botox injection 08/02/2025 12:20 PM EDT Office Visit Rheumatology [address] [place] [address] Gi Siddiqi MD [address] [place] [address] Follow up Osteoporosis documented as of this encounter Visit Diagnoses Not on filedocumented in this encounter Care Teams Acid Cutter Relationship Specialty Start Date End Date Alejandra Osborne MD [address] [place] [phone] PCP - General Family Medicine 12/18/23 Alejandra Osborne MD [address] [place] [phone] Referring Family Medicine 09/08/23 documented as of this encounter
--- OUTSIDE RECORDS SUMMARY | 2025-06-06 11:00 | XMS_ITS | Clinical Summary ---
Author Organization [facility] Address [address], [address] [place] [address] Care Team Providers Care Jingle Writer Name Role Phone Unavailable Primary Care Provider Unavailabl e Encounters Date Type Department Care Team Description 03/31/2025 8:22 AM EDT - 03/31/2025 11:59 PM EDT Hospital Encounter [facility] Physical Therapy [address] [place] [phone] Angelina Lantigua PTA Discharge Disposition: Home or Self Care 03/28/2025 9:11 AM EDT - 03/28/2025 11:59 PM EDT Hospital Encounter [facility] Physical Therapy [address] [place] [id number] Cedrick Perera Discharge Disposition: Home or Self Care 03/21/2025 8:28 AM EDT - 03/21/2025 11:59 PM EDT Hospital Encounter [facility] Physical Therapy [address] [place] [phone] Cedrick Perera Discharge Disposition: Home or Self Care 03/16/2025 9:07 AM EDT - 03/16/2025 11:59 PM EDT Hospital Encounter [facility] Physical Therapy [address] [place] [address] 1988[address] Cedrick Perera Discharge Disposition: Home or Self Care 03/14/2025 9:11 AM EDT - 03/14/2025 11:59 PM EDT Hospital Encounter [facility] Physical Therapy [address] [place] [address]328 Cedrick Perera Discharge Disposition: Home or Self Care 03/11/2025 8:00 AM EDT - 03/11/2025 11:59 PM EDT Hospital Encounter [facility] Physical Therapy [address] [place] [address] Giovanna Wu PTA Discharge Disposition: Home or Self Care 03/09/2025 2:24 PM EDT - 03/09/2025 11:59 PM EDT Hospital Encounter [facility] Physical Therapy [address] [place] [phone] Giovanna Wu PTA Discharge Disposition: Home or Self Care from Last 3 Months Social History Tobacco Use Types Packs/Day Years Used Date Smoking Tobacco: Never Assessed Comments Unknown Sex and Gender Information Value Date Recorded Sex Assigned at Not on file Legal Sex Female 10:10 AM EDT Gender Identity Not on file Sexual Orientation Not on file Plan of Treatment Health Maintenance Due Date Last Done Comments Depression Screen 1969 Hepatitis C screen 1975 DTaP/Tdap/Td vaccine (1 - Tdap) 1976 Breast cancer screen 1997 Lipids 1997 Colonoscopy 2002 Colorectal Cancer Screen 2002 FIT/FOBT: Average risk 2002 Fecal-DNA (Cologuard): Average risk 2002 Sigmoidoscopy/CT colonography 2002 Pneumococcal 50+ years Vaccine (2 of 2 - PCV) 06/30/2021 06/30/2020 COVID-19 Vaccine ( - season) 2024 Annual Wellness Visit (Medicare) 06/15/2024 Flu vaccine (#1) 05/13/2025 07/20/2021, 11/2019, 08/11/2019, Additional history exists Respiratory Syncytial Virus (RSV) or age 60 yrs+ (1 - 1-dose 75+ series) 2032 Shingles vaccine Completed 09/13/2020, 07/07/2020 DEXA (modify frequency per FRAX score) Completed 02/02/2025 Hepatitis A vaccine Aged Out No longe r eligible based on patient's age to complete this topic Hepatitis B vaccine Aged Out No longe r eligible based on patient's age to complete this topic Hib vaccine Aged Out No longer eligi ble based on patient's age to complete this topic Meningococcal (ACWY) vaccine Aged Out No longer eligible based on patient's age to complete this topic Meningococcal B vaccine Aged Out No l onger eligible based on patient's age to complete this topic Polio vaccine Aged Out No longer elig ible based on patient's age to complete this topic Insurance MEDICARE [employer] MEDICARE SUPP
--- OUTSIDE RECORDS SUMMARY | 2025-06-06 11:00 | XMS_ITS | Encounter Summary ---
Author Organization [facility] Address [address] [place] [address] Care Team Providers Care Snubber Name Role Phone Alejandra Osborne MD Unavailable [phone] Alejandra Osborne MD Primary Care Provider [phone] Source Comments In the event this information is protected by the Federal Confidentiality of Alcohol and Drug AbusePatient Records regulations: The Federal rules restrict any use of the information to criminally investigate or prosecute any alcohol or drug abuse patient.[facility] Encounter Details Date Type Department Care Team (Late st Contact Info) Description 01/10/2024 Patient Msg Cardiology [address] [place] [address] Provider, [facility] Appointment Cancellation Request Social History Tobacco Use Types Packs/Day Years [...] is lower risk 4 12/18/2023 Data from: https://www.neighborhoodatlas.medicine.[facility].edu/. Last address used for calculation [...] 10:30 AM EDT Office Visit [facility] [address] [place] [address] Sveta Strong MD [address] [place], [place] [phone] lvm and elodia appt rs from 06/07/25 07/07/2025 1:00 PM EDT Office Visit Gynecology [address] [place] [address] Augustina Vargas MD [address] [place], [place] [phone] Botox injection 08/02/2025 12:20 PM EDT Office Visit Rheumatology [address] [place] [address] Gi Siddiqi MD [address] [place] [address] Follow up Osteoporosis documented as of this encounter Visit Diagnoses Not on filedocumented in this encounter Care Teams Snubber Relationship Specialty Start Date End Date Alejandra Osborne MD [address] [place] [phone] PCP - General Family Medicine 12/18/23 Alejandra Osborne MD [address] [place] [phone] Referring Family Medicine 09/08/23 documented as of this encounter
--- OUTSIDE RECORDS SUMMARY | 2025-06-06 11:00 | XMS_ITS | Encounter Summary ---
Author Organization [facility] Address [facility] [place] [address] Care Team Providers Care Color Maker Formulator Name Role Phone Alejandra Osborne MD Unavailable [phone] Alejandra Osborne MD Primary Care Provider [phone] Source Comments In the event this information is protected by the Federal Confidentiality of Alcohol and Drug AbusePatient Records regulations: The Federal rules restrict any use of the information to criminally investigate or prosecute any alcohol or drug abuse patient.[facility] Reason for Visit * Reason Comments Appointment Encounter Details Date Type Department Care Team (Late st Contact Info) Description 03/28/2025 Telephone Respiratory [place] [address] [place] [phone] Gi Siddiqi MD [address] [place] [address] Appointment Social History Tobacco Use Types Packs/Day Years Used Date Smoking Tobacco: Former Cigarettes 1 08 11 984 - 2010 Passive Smoke Exposure: Never Smokeless Tobacco: Never Alcohol Use Standard Drinks/Week Comments Not Currently 0 (1 standard drink = 0.6 oz pur e alcohol) PHQ-2 Answer Date Recorded PHQ-2 score 1 01/31/2025 Area Deprivation Index Answer Date Keron rded National Score (1-100), lower number is lower ri sk 64 12/18/2023 State Score (1-10), lower number is lower risk 4 12/18/2023 Data from: https://www.neighborhoodatlas.medicine.[facility]/. Last address used for calculation [address] 12/18/2023 Comments No Sex and Gender Information Value Date Recorded Sex Assigned at Not on file Legal Sex Female 4:14 PM EST Gender Identity Not on file Sexual Orientation Not on file documented as of this encounter Miscellaneous Notes * Telephone Encounter - Gi Siddiqi MD - 03/30/2025 8:44 AM EDT Please advise patient that any of [facility] Nurse Recruiter would be good. The consult is for clearance for Evenity in terms of cardiac risk with patient's history. The soonest she can be seen by Cardiology the better. If we can assist patient with sooner apt with Cardiology, please call patient to assist. thank you kindly, fa * Telephone Encounter - Radha Davis - 03/28/2025 2:00 PM EDT Karen is calling Gi Siddiqi MD today to ask provider if it's ok she is scheduled with Interventional Cardiology and not Dr Bowens. Patient was scheduled with [facility] and someone called and offered her a new appointment but never informed patient it wasn't Dr Bowens. Please advise.. Patient has been identified by name and birthdate. Duration of symptoms: N/A Person calling: self Call patient at: at home [phone] (home) [phone] (work) [phone] (cell) Was an appointment scheduled: No Closing statement: Results or non-symptom based questions: Thank you for calling [facility], your call will be returned within the next business day. Radha Davis documented in this encounter Plan of Treatment Upcoming Encounters Date Type Department Care Team (Late st Contact Info) Description 07/04/2025 10:30 AM EDT Office Visit [facility] [address] [place] [address] Sveta Strong MD [address] [place], [place] [phone] lvm and elodia appt rs from 06/07/25 07/07/2025 1:00 PM EDT Office Visit Gynecology [address] [place] [address] Augustina Vargas MD [address] [place], [place] [phone] Botox injection 08/02/2025 12:20 PM EDT Office Visit Rheumatology [address] [place] [address] Gi Siddiqi MD [address] [place] [address] Follow up Osteoporosis documented as of this encounter Visit Diagnoses Not on filedocumented in this encounter Care Teams Color Maker Formulator Relationship Specialty Start Date End Date Alejandra Osborne MD [address] [place] [address] PCP - General Family Medicine 12/18/23 Alejandra Osborne MD [address] [place] [address] Referring Family Medicine 09/08/23 documented as of this encounter
--- OUTSIDE RECORDS SUMMARY | 2025-06-06 11:00 | XMS_ITS | Encounter Summary ---
Author Organization [facility] Address [address] [place] [address] Care Team Providers Care Riveting Machine Operator Name Role Phone Alejandra Osborne MD Unavailable [phone] Alejandra Osborne MD Primary Care Provider Source Comments In the event this information is protected by the Federal Confidentiality of Alcohol and Drug AbusePatient Records regulations: The Federal rules restrict any use of the information to criminally investigate or prosecute any alcohol or drug abuse patient.[facility] Encounter Details Date Type Department Care Team (Late st Contact Info) Description 03/23/2025 Patient Msg Cardiology [address] [place] [address] Caty Hall, PSS Dr Strong Appointment Social History Tobacco Use Types Packs/Day [...] is lower risk 4 12/18/2023 Data from: https://www.neighborhoodatlas.medicine.[facility].edu/. Last address used for [...] 10:30 AM EDT Office Visit [facility] [address] [place] [address] Sveta Strong MD [address] [place], [place] [phone] lvm and mc appt rs from 06/07/25 07/07/2025 1:00 PM EDT Office Visit Gynecology [address] [place] [address] Augustina Vargas MD [address] [place], [place] [phone] Botox injection 08/02/2025 12:20 PM EDT Office Visit Rheumatology [address] [place], [place] [phone] Gi Siddiqi MD [address] [place], [place] [phone] Follow up Osteoporosis documented as of this encounter Visit Diagnoses Not on filedocumented in this encounter Care Teams Riveting Machine Operator Relationship Specialty Start Date End Date Alejandra Osborne MD [address] [place] [address] PCP - General Family Medicine 12/18/23 Alejandra Osborne MD [address] [place] [address] Referring Family Medicine 09/08/23 documented as of this encounter
--- OUTSIDE RECORDS SUMMARY | 2025-06-06 11:00 | XMS_ITS | Encounter Summary ---
Author Organization [facility] Address [address] [place] [address] Care Team Providers Care Air Traffic Control Manager Name Role Phone Alejandra Osborne MD Unavailable [phone] Alejandra Osborne MD Primary Care Provider [phone] Source Comments In the event this information is protected by the Federal Confidentiality of Alcohol and Drug AbusePatient Records regulations: The Federal rules restrict any use of the information to criminally investigate or prosecute any alcohol or drug abuse patient.[facility] Encounter Details Date Type Department Care Team (Late st Contact Info) Description 01/10/2024 Patient Msg Vascular Surg Dept [address] [place] [address] Provider, [facility] Appointment Cancellation Request [...] is lower risk 4 12/18/2023 Data from: https://www.neighborhoodatlas.medicine.[facility].edu/. Last address used for calculation [address] [...] 10:30 AM EDT Office Visit [facility] [address] [place] [address] Sveta Strong MD [address] [place], [place] [phone] lvm and appt rs from 06/07/25 07/07/2025 1:00 PM EDT Office Visit Gynecology [address] [place] [address] Augustina Vargas MD [address] [place], [place] [phone] Botox injection 08/02/2025 12:20 PM EDT Office Visit Rheumatology [address] [place] [address] Gi Siddiqi MD [address] [place] [address] Follow up Osteoporosis documented as of this encounter Visit Diagnoses Not on filedocumented in this encounter Care Teams Air Traffic Control Manager Relationship Specialty Start Date End Date Alejandra Osborne MD [address] [place] [phone] PCP - General Family Medicine 12/18/23 Alejadnra Osborne MD [address] [place] [phone] Referring Family Medicine 09/08/23 documented as of this encounter
--- OUTSIDE RECORDS SUMMARY | 2025-06-06 11:05 | XMS_ITS | CCD ---
Author Organization [facility] Care Team Providers Care Director Of Cardiology Service Line Name Role Phone Joel Monroe Unavailable Unavailable Joel Monroe Unavailable Unavailable Joel Monroe Unavailable Unavailable AMMON LUCAS~[id number] UNKNOWN Unavailable Unavailable Joel Monroe Unavailable Unavailable Joel Monroe Unavailable Unavailable Joel Monroe Unavailable Unavailable AMMON LUCAS~[id number] UNKNOWN Unavailable Unavailable Sheeba Manuela Unavailable Ayaka Joyner Unavailable Ammon Lucas Unavailable NAVEEN KAHN Admitting Unavailable NAVEEN KAHN Attending Unavailable YRIS ., DELIA TOLENTINO Consulting Unavailmindy LUCAS, DR AMMON Peres Primary Care Unavailable HAY ., DR KEITA Admitting Unavailable HAY ., DR KEITA Attending Unavailable Derek Mccray Consulting Unavailable DYLON, DR AMMON Peres Primary Care Unavailable HAY ., DR KEITA Consulting Unavailable EDINSON, ELIE Consulting Unavailable HAY ., DR KEITA Admitting Unavailable HAY ., DR KEITA Consulting Unavailable HAY ., DR KEITA Attending Unavailable DYLON, DR AMMON Peres Primary Care Unavailable REQUEST, DR GARNETT LISTED Admitting Unavaila ble REQUEST, DR GARNETT LISTED Consulting Unavaila ble REQUEST, DR GARNETT LISTED Attending Unavaila ble DYLON, DR AMMON Peres Primary Care Unavailable Boogie Mina Consulting Unavailable DYLON, DR AMMON Peres Primary Care Unavailable DYLON, DR AMMON Peres Attending Unavailable DYLON, DR AMMON Peres Admitting Unavailable DYLON, DR AMMON Peres Consulting Unavailable Unavailable Primary Care Provider UnavailAmmon Guzman MD Unavailable Ammon Lucas MD Primary Care Provider [phone] Ammon Lucas MD Primary Care Provider AMMON LUCAS Referring Unavailable AMMON LUCAS Primary Care Unavailable AMMON LUCAS Referring Unavailable AMMON LUCAS Primary Care Unavailable CITLALI, SARAH M Attending Unavailable DYLON, AMMON E Referring Unavailable DYLON, AMMON E Primary Care Unavailable CITLALI, SARAH M Attending Unavailable DYLON, AMMON E Referring Unavailable DYLON, AMMON E Primary Care Unavailable CITLALI SARAH M Referring Unavailable LUCAS, AMMON E Primary Care Unavailable SARAH GODWIN M Admitting Unavailable CITLALI, SARAH M Attending Unavailable DYLON, AMMON E Primary Care Unavailable YEN MEADE Attending Unavailable DYLON, AMMON E Primary Care Unavailable CITLALI, SARAH M Attending Unavailable DYLON, AMMON E Referring Unavailable DYLON, AMMON E Primary Care Unavailable MATTHEW RAMIREZ Attending Unavailable DYLON, AMMON E Referring Unavailable LUCAS, AMMON E Primary Care Unavailable Unavailable Primary Care Provider Ammon Hodges MD Primary Care Provider [phone] Ammon Lucas MD Primary Care Provider [phone] AMMON LUCAS Primary Care Unavailable PROVIDER, UNKNOWN Referring Unavailable STRASBURG, AUGUSTINA M Referring Unavailable [...] Referring Unavailable STRASBURG, AUGUSTINA M Referring Unavailable BRIANA, DANIA K Referring Unavailable LUCAS, AMMON E Primary Care Unavailable BRIANA, DANIA K Referring Unavailable LUCAS, AMMON E Primary Care Unavailable AL-ASHKAR, FEYROUZ Attending Unavailable LUCAS, AMMON E Primary Care Unavailable STRASBURG, AUGUSTINA Attending Unavailable SELF Referring Unavailable LUCAS, AMMON E Primary Care Unavailable MICHELLE, YUERONG Referring Unavailable LUCAS, AMMON E Primary Care Unavailable ORQUIDEA SAAVEDRA Attending Unavailable AL-ASHKAR, FEYROUZ Referring Unavailable LUCAS, AMMON E Primary Care Unavailable STRASBURG, AUGUSTINA Attending Unavailable LUCAS, AMMON E Primary Care Unavailable VIET CARR Attending Unavailable LUCAS, AMMON E Primary Care Unavailable STRASBURG, AUGUSTINA Attending Unavailable STRASBURG, AUGUSTINA Referring Unavailable LUCAS, AMMON E Primary Care Unavailable STRASBURG, AUGUSTINA Attending Unavailable STRASBURG, AUGUSTINA Referring Unavailable LUCAS, AMMNO E Primary Care Unavailable AL-ASHKAR, FEYROUZ Attending Unavailable STRASBURG, AUGUSTINA Referring Unavailable LUCAS, AMMON E Primary Care Unavailable AL-ASHKAR, FEYROUZ Referring Unavailable LUCAS, AMMON E Primary Care Unavailable ORQUIDEA SAAVEDRA Attending Unavailable AL-ASHKAR, FEYROUZ Referring Unavailable LUCAS, AMMON E Primary Care Unavailable AL-ASHKAR, FEYROUZ Referring Unavailable LUCAS, AMMON E Primary Care Unavailable AL-ASHKAR, FEYROUZ Referring Unavailable LUCAS, AMMON E Primary Care Unavailable Ammon Lucas MD Primary Care Provider Ammon Lucas MD Primary Care Provider Provider, Outside Attending Provider Unavailable Ammon Lucas MD Attending Provider [phone] KERI TOPETE Attending Unavailable BRIANA, DANIA K Attending Unavailable Allergies Allergy Classification Reported Allergen(s) Allergy Type Date of Onset Reaction(s) Facility (9 sources) amoxicillin; Translations: [amoxicillin] Drug Allergy 02-13-20 17 Unknown [facility] Repository (20 sources) Bee/Wasp/Ant venom; Translations: [Bee Stings] Propensity to adverse reactions (disorder) 12-05-19 Unknown, Rash [facility] Repository (20 sources) clindamycin; Translations: [clindamycin] Drug Allergy 09-24-20 15 Rash, Shortness of Breath, Hives [facility] Repository (20 sources) doxycycline; Translations: [doxycycline] Drug Allergy 03-03-20 23 Rash, Hives [facility] Repository (11 sources) Penicillins; Translations: [penicillins] Propensity to adverse reactions (disorder) 02-13-20 17 Hives, Rash, Intolerance [facility] Repository (5 sources) Penicillin; Translations: [penicillin] Drug Allergy 06-18-20 18 Unknown [facility] Repository (12 sources) Bee pollen Drug Allergy 06-17-20 Comment:Bee Stings [facility] Comment on above: Onset Date: 06/17/20 18 (11 sources) Codeine Drug Allergy 08-04-20 Comment:upset stomach [facility] Other (20 sources) Codeine; Translations: [CODEINE] Drug Allergy 06-17-20 GI Upset, GI intolerance, GI Disturbance [facility] Comment on above: Onset Date: 08/04/20 18 (11 sources) Pseudoephedrine Drug Allergy 08-04-20 Unknown [facility] Other (6 sources) patient allergy list reviewed by nurse or physicia Propensity to adverse reactions 08-10-20 Comment:Done [facility] Other (3 sources) Allergies Reconciled Propensity to adverse reactions Unknown [facility] Other (1 source) Substance with penicillin structure and antibacterial mechanism of action (substance) Drug allergy 08-04-20 18 Unknown [facility] Other (8 sources) Fluconazole Drug Allergy 06-03-20 [facility] (20 sources) Venom-Honey Bee; Translations: [VENOM-HONEY BEE] Drug Allergy 12-05-19 Rash [facility] (20 sources) Doxycycline; Translations: [DOXYCYCLINE HYCLATE] Drug Allergy 03-03-20 Rash [facility] Rep[facility] (3 sources) BEE VENOM PROTEIN (HONEY BEE); Translations: [BEE VENOM PROTEIN (HONEY BEE)] Propensity to adverse reactions to drug (disorder) 12-05-19 [facility] (10 sources) Bee pollen Allergy to substance 04-12-20 [facility] (10 sources) Fluconazole Allergy to substance 04-12-20 Dizziness [facility] (10 sources) Honey bee venom Allergy to substance 12-05-19 Rash, Hives [facility] (10 sources) Pseudoephedrine Drug Allergy 04-12-20 [facility] (1 source) 12 Hour Decongestant Allergy to substance 04-12-20 [facility] Comment on above: Onset Date: 08/04/20 18 Medications Current Medications Medication Drug Class(es) Dates Sig (Normalized) Sig (Original) acetaminophen 500 mg oral tablet (12 sources) take 2 tablets by mouth every [...] 6 (six) hours as needed. 02/25/2023 Active Start: 05-12-2018 End: 06-03-2025 take 1 tablet by mouth every four hours as needed for pain Hydrocodone-Acetaminophen ([place]) 5-325 mg Tablet Discontinued 1 - 2 TAB PO Every 4 hours as needed for Pain May 12, 2018 June 03, 2025 11:02am Comment on above: Take 1 tablet by brad th every 6 hours as needed for pain. atorvastatin 10 mg oral tablet (20 sources) HMG-CoA Reductase Inhibitor Start: 4 End: take 1 tablet by mouth once daily Atorvastatin (Lipitor) 10 mg tablet Active 10 MG PO Daily May 20, 2025 2:04pm Complies with 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 Start: 06-12-2023 End: 06-06-2024 take 1 tablet by mouth in the morning atorvastatin (Lipitor) 20 MG tablet Take 20 mg by mouth in the morning. 06/12/2023 Active Lipitor Active Comment on above: Take 20 mg by mouth every morning. Take 20 mg by mouth every evening. azithromycin 250 mg oral tablet (13 sources) Macrolide Antimicrobial Start: Azithromycin 250 MG 2 tablet on the first day, then 1 tablet daily for 4 days Orally Once a day for 5 day(s) May, Active Calcium Carbonate / vitamin D3 (20 sources) [...] Bone Health Advanced) 600-800 MG-UNIT chewable tablet (10 sources) Calcium Carbonat e-Vit D-Min (Caltrate Bone [...] by mouth in the morning. 0 Active cholecalciferol, vitamin D3, (VITAMIN D3 ORAL) (1 source) cholecalciferol, vitamin D3, (VITAMIN D3 ORAL) Take by mouth. Active cyclobenzaprine hydrochloride 5 mg oral tablet (20 sources) Muscle Relaxant Start: 05-27-20 End: 08-17-20 24 take 1 tablet by mouth every twenty-four hours as needed cyclobenzaprine (Flexeril) 5 MG tablet Take 5 mg by mouth Daily as needed 05/27/2024 Active take 2 tablets by [facility] three times daily as needed for muscle spasms cyclobenzaprine (FLEXERIL) 5 mg tablet T hedy 2 tablets (10 mg total) by mouth 3 (three) times a day as needed for muscle spasms. Active estradiol 0.1 mg/ml vaginal cream (16 sources) Estrogen Start: 07-06-2024 estradiol (EST RACE) [...] NASE) 50 mcg/actuation nasal spray Use 1 Roll in the nose as needed for cold/allergy symptoms. Take in allergy season Active fluticasone (STEVAN NASE) 50 mcg/actuation nasal spray Use 1 Roll in the nose once daily. 0 Active FLONASE Active Flonase Active Flonase Sharon-Juwan garzon Comment on above: Use 1 Roll in the n ose once daily. Use 1 Roll in the n ose as needed for cold/allergy symptoms. Take in allergy season 12 hr loratadine 5 mg / pseudoephedrine sulfate 120 mg extended release oral tablet (17 sources) alpha-Adrenergic Agonist take 1 tablet by mouth once in the morning, then take 1 tablet by mouth every twelve hours in the evening loratadine-pseudoephe drine ER (Claritin-D 12-hour) 5-120 MG 12 hr [...] needed 03/05/2023 06/03/2024 Discontinued (Med list cleanup) nystatin 964604 unt/ml oral suspension (11 sources) Polyene Antifungal Start: 06-05-20 take 4 mL by mouth four times daily Nystatin [id number] UNIT/ML 4 mL Mouth/Throat Four times a day for 14 day(s) 24 Aug, 2023 Active Nystatin [id number] UNIT/ML swish and swallow 5 milliliters four [...] Orally tid for 7 days Jul, Active VITAMIN B COMPLEX ORAL (1 source) VITAMIN B COMPLE X ORAL Take by mouth. Active Completed/Discontinued Medications Medication Drug Class(es) Dates Sig (Normalized) Sig (Original) acetaminophen 325 mg / oxyCODONE hydrochloride 5 mg oral tablet (1 source) Opioid Agonist Start: 0 End: take 1 tablet by mouth every six hours as needed for pain Oxycodone-Acetamin ophen (Percocet) 5-325 mg tablet Discontinued 1 TAB PO Q6H as needed for pain 01 03December 05, 2019June 03, 2025 11:03am onabotulinumtoxina 100 unt injection (20 sources) Acetylcholine Release Inhibitor Start: 5 End: 5 inject 1 dose by intramuscular injection every 30 days 100 Units, INTRAMUSCULAR, ONCE (UP TO 30 DAYS AMB), 1 dose, On Fri12/08/24 at 1630, This record documents the total dose provided to patient. See progress note for specific locations and amounts administered. REFRIGERATE - Pharmaceutical Waste: Lab Pack - Start: 05-28-2024 onabotulinumto xinA (Botox) 100 units injection Inject 100 Units into the shoulder, thigh, or buttocks every 3 months 05/28/2024 Active Start: 05-28-2024 End: 12-08-2024 onabotulinum toxin type A 10 0 Units injection (BOTOX) Bupivacaine (4 sources) Amide Local Anesthetic Start: 12-08-2024 End: 12-08-2024 BUPivacaine HCl 25 mg injection (SENSORCAINE) Start: 12-08-2024 End: 12-08-2024 inject 1 dose by intramuscular injection once 25 mg, INTRAMUSCULAR, ONCE, 1 dose, On Fri12/08/24 at 1630 Start: 07-06-2024 End: 07-06-2024 BUPivacaine HCl 25 mg inject ion (SENSORCAINE) Start: 07-06-2024 End: 07-06-2024 inject 1 dose by intramuscular injection once 25 mg, INTRAMUSCULAR, ONCE, 1 dose, On Fri07/06/24 at 1130 docusate sodium 50 mg / sennosides, retirement 8.6 mg oral tablet (1 source) Start: 12-05-2019 End: 06-03-2025 take 2 tablets by mouth once daily at bedtime as needed for constipation Sennosides-Docusate Sodium (Senna Plus) 8.6-50 mg tablet Discontinued 2 TAB PO Daily at bedtime as needed for constipation December 05, 2019 1:00am June 03, 2025 11:04am doxycycline monohydrate 100 mg oral capsule (11 sources) Tetracycline-class Drug Start: 07-28-2022 take 1 capsule by mouth every twelve hours Doxycycline Monohydrate 100 MG 1 capsule Orally every 12 hrs for 10 days Jul, Not-Taking fluocinonide 0.5 mg/ml topical cream (7 sources) Corticosteroid Fluocinonide 0.0 5 % External for 14 Days Not-Taking gabapentin 300 mg oral capsule (20 sources) Anti-epileptic Agent Start: 08-25-2020 End: 12-11-2024 gabapentin (NEURONTIN) 300 mg capsule Take 300 mg by mouth as needed for pain. 08/25/2020 12/11/2024 Discontinued Comment on above: Take 300 mg by mouth as needed for pain. glycerin 1300 mg rectal suppository (1 source) Non-Standardized Chemical Allergen Start: 04-12-2024 End: 06-03-2025 Glycerin (Child) suppository Discontinued SUPP SD April 12, 2024 12:00am June 03, 2025 11:02am ibuprofen 800 mg oral tablet (20 sources) Nonsteroidal Anti-inflammatory Drug Start: 05-12-2018 End: 06-03-2025 take 1 tablet by mouth three times daily as needed for pain Ibuprofen 800 mg Tablet Discontinued 800 MG PO Three times daily as needed for Pain May 12, 2018 12:00am June 03, 2025 11:33am take 2 tablets by [facility] every six hours as needed ibuprofen 200 [...] mg by mouth two times a day. 10 ml lidocaine hydrochloride 10 mg/ml injection (5 sources) Antiarrhythmic, Amide Local Anesthetic Start: 02-02-2025 End: 02-02-2025 lidocaine (PF) 10 mg/mL (1 %) 8 mL injection (XYLOCAINE) Start: 02-02-2025 End: 02-02-2025 8 mL, Injection - FOR ORTHO USE ONLY, ONCE, 1 dose, Starting on Fri02/02/25 at 1358, Until Fri02/02/25 at 1358 Start: 04-07-2024 End: 04-07-2024 lidocaine urojet 2 % 11 mL t opical gel (GLYDO) Start: 09-14-2021 Lidocaine Visc ous HCl 2 % 1 application topically every 2 hours prn Apply a small amount to the painful rash on the face every 2 hours as needed Sep, Active Loratadine (10 sources) Claritin Not-Holger michael Claritin Active montelukast 10 mg oral tablet (20 sources) Leukotriene Receptor Antagonist Start: 06-18-2018 End: 05-20-2025 take 1 tablet by mouth once daily Montelukast (Singulair) 10 mg tablet Discontinued 10 MG PO Daily January 12, 2024 12:32pm May 13, 2024 12:51pm Singulair Active Singulair Sharon-Elia carroll Comment on above: Take 10 mg by mouth once daily. nitrofurantoin, macrocrystals 25 mg / nitrofurantoin, monohydrate 75 mg oral capsule (1 source) Nitrofuran Antibacterial Start: End: take 1 capsule by mouth every twelve hours at mealtime Nitrofurantoin Monohyd/M-Cryst (Macrobid) 100 mg Capsule Discontinued 100 MG PO Q12H May 12, 2018 12:00am April 12, 2024 3:30pm administer with a meal/food; swallow whole; do not open, crush, dissolve , or chew ondansetron 4 mg disintegrating oral tablet (1 source) Serotonin-3 Receptor Antagonist Start: End: take 1 tablet by mouth every six hours as needed for nausea Ondansetron (Zofran Odt) 4 mg Tablet,Disintegrating Discontinued 4 MG PO Q6H as needed for Nausea May 12, 2018 12:00am April 12, 2024 3:30pm tamsulosin hydrochloride 0.4 mg oral capsule (18 sources) alpha-Adrenergic Amber Start: End: take 1 capsule by mouth once daily Tamsulosin (Flomax) 0.4 mg capsule Discontinued 0.4 MG PO Daily April 12, 2024 12:00am June 03, 2025 11:33am take 1 capsule by [facility] every twenty-four hours Flomax 0.4 MG 1 capsule Orally Once a day for 15 days Active 1 ml triamcinolone acetonide 40 mg/ml injection (2 sources) Corticosteroid Start: 02-02-2025 End: 02-02-2025 triamcinolone acetonide 80 mg injection (KeNALog 40) Start: 02-02-2025 End: 02-02-2025 80 mg, Injection - FOR ORTHO USE ONLY, ONCE, 1 dose, Starting on Fri02/02/25 at 1358, Until Fri02/02/25 at 1358 Problems Active Problems Problem Classification Problem Date Documented Da te Episodic/Chronic Administrative/social admission (1 source) Drug therapy finding; Translations: [Other specified counseling] 02-10-2025 Episodic Calculus of urinary tract (15 sources) Kidney stone; Translations: [Calculus of kidney] Episodic Chronic kidney disease (1 source) Kidney transplant status; Translations: [Kidney transplant status] Onset: 04-26-2024 Chronic Coronary atherosclerosis and other heart disease (3 sources) Coronary arteriosclerosis; Translations: [Atherosclerotic heart disease of [place] coronary artery without angina pectoris] Onset: 02-08-2025 02-10-2025 Chronic Genitourinary symptoms and ill-defined conditions (1 source) Dysuria Episodic Headache; including migraine (3 sources) Headache; Translations: [Headache, unspecified] Episodic Joint disorders and dislocations; trauma-related (2 sources) Derangement of meniscus due to injury of knee; Translations: [Derangement of unspecified meniscus due to old tear or injury, right knee] Onset: 05-04-2025 02-02-2025 Chronic Lymphadenitis (3 sources) Localized enlarged lymph nodes; Translations: [Localized enlarged lymph nodes] Episodic Menopausal disorders (4 sources) Atrophic vaginitis; Translations: [Postmenopausal atrophic vaginitis] Onset: 02-02-2025 07-06-2024 Chronic Mycoses (5 sources) Candidiasis, unspecified; Translations: [Candidal stomatitis] Onset: 11-25-2022 Episodic Nutritional deficiencies (2 sources) Cobalamin deficiency; Translations: [Deficiency of other specified B group vitamins] Onset: 05-04-2025 02-14-2025 Episodic Osteoarthritis (6 sources) Osteoarthritis of right knee joint; Translations: [Unilateral primary osteoarthritis, right knee] Onset: 02-02-2025 02-02-2025 Chronic Osteoporosis (20 sources) Osteoporosis; Translations: [Age-related osteoporosis without current pathological fracture] Onset: 03-04-2023 03-04-2023 Chronic Other aftercare (1 source) 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; Translations: [OTH 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 FACTORY 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 CURRENT DRUG THERAPY] Onset: 02-25-2023 Episodic Other and ill-defined heart disease (1 source) Heart disease; Translations: [Heart disease, unspecified] 02-14-2025 Chronic Other and ill-defined heart disease (1 source) Heart disease, unspecified; Translations: [Heart disease, unspecified] Onset: 05-04-2025 Chronic Other circulatory disease (3 sources) Elevated blood-pressure [...] neuritis, unspecified Episodic Other connective tissue disease (7 sources) Pelvic floor dysfunction; Translations: [Other specified disorders of muscle] 05-27-2024 Episodic Other connective tissue disease (3 sources) Muscle pain; Translations: [Myalgia, unspecified site] 07-06-2024 [...] constipation; Translations: [Constipation, unspecified] 07-06-2024 Episodic Other gastrointestinal disorders (1 source) Disorder of retroperitoneum; Translations: [Other disorders of retroperitoneum] 04-12-2024 Episodic Other injuries and conditions due to external causes (1 source) Allergy, unspecified, subsequent encounter Episodic Other injuries and conditions due to external causes (4 sources) Personal history of (healed) traumatic fracture; Translations: [History of fracture of pelvis] Onset: 02-02-2025 Episodic Other injuries and conditions due to external causes (1 source) H/O: fracture; Translations: [Personal history of (healed) traumatic fracture] 04-29-2025 Episodic Other lower respiratory disease (6 sources) Nodule of lung; Translations: [Solitary pulmonary nodule] 06-03-2024 Episodic Other screening for suspected conditions (not mental disorders or infectious disease) (3 sources) CT of chest abnormal; Translations: [Abnormal findings on diagnostic imaging of other specified body structures] Chronic Other skin disorders (3 sources) Localized swelling, mass and lump, neck; Translations: [Localized swelling, mass and lump, neck] Episodic Other skin disorders (11 sources) Mass of right submandibular region; Translations: [Localized swelling, mass and lump, head] Onset: 12-01-2023 Resolved: 12-01-2023 12-01-2023 Episodic Comment on above: Problem List clean-u p per request of Phys. EHR Cmte Other upper respiratory disease (3 sources) Allergic rhinitis due to pollen; Translations: [Allergic rhinitis due to pollen] Onset: 06-17-2018 Chronic Other upper respiratory disease (17 sources) Chronic rhinitis; Translations: [Chronic rhinitis] Onset: 03-17-2023 Resolved: 06-02-2024 06-02-2024 Chronic Other upper respiratory infections (20 sources) Sinusitis; Translations: [Chronic sinusitis, unspecified] Chronic Other upper respiratory infections (3 sources) Acute maxillary sinusitis, unspecified; Translations: [Acute recurrent maxillary sinusitis] Episodic Peripheral and visceral atherosclerosis (17 sources) Peripheral vascular disease; Translations: [Peripheral vascular [...] unspecified; Translations: [Pain, unspecified] Onset: 02-17-2024 Episodic Residual codes; unclassified (2 sources) Postmenopausal state; Translations: [Asymptomatic menopausal state] 12-06-2024 Episodic Residual codes; unclassified (4 sources) Family history of osteoporosis; Translations: [Family history of osteoporosis in mother] Onset: 02-02-2025 Episodic Residual codes; unclassified (2 sources) FH: Cardiovascular disease; Translations: [Family history of ischemic heart disease and other diseases of the circulatory system] 02-10-2025 Episodic Residual codes; unclassified (1 source) Family history of osteoporosis; Translations: [Family history of osteoporosis] 02-08-2025 Episodic Residual codes; unclassified (1 source) Family history of ischemic heart disease and other diseases of the circulatory system; Translations: [Family history of cardiovascular disease] Onset: 02-08-2025 Episodic Screening and history of mental health [...] or lumbosacral intervertebral disc] Onset: 06-17-2018 Chronic Spondylosis; intervertebral disc disorders; other back problems (11 sources) Neck pain; Translations: [Cervicalgia] Onset: 12-01-2023 Resolved: 12-01-2023 12-01-2023 Episodic Comment on above: Problem List clean-u p per request of Phys. EHR Cmte Unclassified (1 source) S/P submandibular gland dilation Onset: 02-10-2024 Unclassified (1 source) Post-op Follow-up Onset: 12-02-2023 Unclassified (1 source) Trigger Point Injection Onset: 03-08-2025 Past or Other Problems Problem Classification Problem [...] 06-17-2018 Episodic Diseases of mouth; excluding dental (20 sources) Dry mouth, unspecified; Translations: [Chronic sialoadenitis] Onset: 10-07-2023 Resolved: 12-01-2023 Episodic Disorders of lipid metabolism (20 sources) Hyperlipidemia; Translations: [Other hyperlipidemia] Onset: 02-19-2024 Resolved: 06-02-2024 02-19-2024 Chronic Headache; including migraine (17 sources) Tension-type headache; Translations: [Tension-type headache, unspecified, not intractable] Onset: 03-17-2023 Resolved: 06-02-2024 06-02-2024 Chronic Mood disorders (7 sources) Mood disorders Onset: 03-29-2020 03-29-2020 Nonspecific chest pain (17 sources) Chest pain; Translations: [Chest pain, unspecified] Onset: 06-12-2023 Resolved: 12-01-2023 12-01-2023 Episodic Nutritional deficiencies (20 sources) Malnutrition (calorie); Translations: [Moderate protein-calorie malnutrition] Onset: 03-03-2024 Resolved: 06-02-2024 04-10-2024 Chronic Other aftercare (3 sources) Follow-up status; Translations: [Encounter for follow-up examination after completed treatment for conditions other than malignant neoplasm] Onset: 03-17-2023 03-17-2023 Episodic Other aftercare (9 sources) Patient encounter status; Translations: [Encounter for follow-up [...] Onset: 03-29-2020 Resolved: 06-02-2024 02-19-2024 Episodic Other diseases of veins and lymphatics (20 sources) Renal vascular disorder; Translations: [Compression of vein] Onset: 02-19-2024 Resolved: 06-02-2024 12-12-2023 Episodic Other diseases of veins and lymphatics (20 sources) Varices of ovary; 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] Onset: 02-19-2024 Resolved: 06-02-2024 02-19-2024 Episodic Other diseases of veins and lymphatics (17 sources) Venous stenosis; Translations: [Compression of vein] Onset: 03-29-2020 Resolved: 12-01-2023 12-01-2023 Episodic Other female genital disorders (11 sources) Pelvic congestion syndrome; Translations: [Other specified conditions associated with female genital organs and menstrual cycle] Onset: 06-04-2023 07-06-2024 Episodic Other gastrointestinal disorders (3 sources) Dysphagia; Translations: [Dysphagia, unspecified] Onset: 06-17-2018 Episodic Other gastrointestinal disorders (17 sources) Pharyngeal dysphagia; Translations: [Dysphagia, pharyngeal phase] Onset: 03-17-2023 Resolved: 06-02-2024 06-02-2024 Episodic Other lower respiratory disease (1 source) Solitary pulmonary nodule; Translations: [Solitary pulmonary nodule] Onset: 05-10-2024 Episodic Other screening for suspected conditions (not mental disorders or infectious disease) (12 sources) Encounter for screening mammogram for malignant neoplasm of breast; Translations: [Patient encounter status] Onset: 08-13-2022 Episodic Other skin disorders (3 sources) Asteatosis cutis; Translations: [Xerosis cutis] Onset: 06-17-2018 Episodic Residual codes; unclassified (1 source) Localized edema; Translations: [Localized edema] Onset: 10-07-2023 Episodic Residual codes; unclassified (17 sources) Family history of aneurysm of abdominal aorta; Translations: [Family history of ischemic heart disease and other diseases of the circulatory system] Onset: 08-20-2023 Resolved: 12-01-2023 12-01-2023 Episodic Residual codes; unclassified (18 sources) Submandibular salivary gland swelling; Translations: [Localized edema] Onset: 12-26-2023 Resolved: 12-01-2023 12-01-2023 Episodic Substance-related disorders (20 [...] Test Name Value Interpretation Reference Range Facility 25(OH)D3 [facility] 2024 25-hydroxyvitamin D3 [Mass/Vol] 47.4 ng/mL Normal 31.0-80.0 [facility] Comment on above: Order Comment: Speci men Type: BLOOD SPECIMEN [facility] Address: [address] [place] [address] Performed By: #### 1 989-3 #### [facility] CLIA [id number] [address] [place] [address] OF [facility] CNOVon 05-04-2025 CNOV Office Visit (LOORRM ) -- KAREN ZAIDI ([id number]) 1955 F Date Time Provider Department 05/04/25 1:45 PM ORQUIDEA SAAVEDRA During your visit today, we recorded the following information about you: Orquidea Saavedra MD 05/05/2025 11:26 AM Signed see dictated note Orquidea Saavedra II, MD Referring Provider: GI SIDDIQI [[id number]] Allergies As of Date: 05/04/2025 Noted Allergy Reaction CLINDAMYCIN 06/30/2018 2 - Rash 12 - Shortness of Breath DOXYCYCLINE 12/18/2023 2 - Rash VENOM-HONEY BEE 12/05/2019 2 - Rash CODEINE 06/30/2018 8 - GI Upset Date Reviewed: 05/04/2025 Reviewed by: Aline Pederson MA - Fully Assessed Reason for Visit: Established Patient [175] Follow Up [171] Primary Visit Diagnosis:Primary osteoarthritis of right knee [M17.11] Prescriptions as of 05/05/2025 - cholecalciferol, vitamin D3, (VITAMIN D3 ORAL) Take by mouth. - VITAMIN B COMPLEX ORAL Take by mouth. - cyclobenzaprine (FLEXERIL) 5 mg tablet 1 [...] (FLONASE) 50 mcg/actuation nasal spray Use 1 Roll in the nose as needed for cold/allergy symptoms. Take in allergy season - montelukast (SINGULAIR) 10 mg tablet Take 10 mg by mouth once daily. - ibuprofen (MOTRIN) 200 mg tablet Take 400 mg by mouth two times a day. 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 [id number] [address] STATES OF [facility] No Panel InformationOrdered By: Outside Provider on 05-04-2025 25-Hydroxy Vitamin D Total 47.4 ng/mL 31.0-80.[address] [facility] Vitamin B12 Level >2000 pg/mL High 232-1245 [facility] Serum or plasma homocysteine measurement (moles/volume)Ordered By: Outside Provider on 05-04-2025 Homocysteine [Moles/Vol] 22.2 umol/L High <15.[address] [facility] Vit B12 SerPl-mCncon 025 Cobalamin (Vitamin B12) [Mass/Vol] pg/mL High 232-1245 [facility] Comment on above: Order Comment: Speci men Type: BLOOD SPECIMENOrdering Facility: [facility] Address: [address] [place] [address] Performed By: #### 2 132-9 ####[facility] [id number] [address] [place] CT CHEST WO CONTon CT CHEST WO CONT CT CHEST WO CONT Study: CT chest without contrast History:Pulmonary nodule [...] detection for pulmonary nodules was performed utilizing [employer] software. Finalized by Dayday Rodriguez MD on 04/28/2025 1:55 PM Normal [facility] CNOVon 03-08-2025 CNOV Office Visit (WHICCP ) -- KAREN ZAIDI ([id number]) 1955 F Date Time Provider Department 5/27/25 3:30 PM AUGUSTINA VAGRAS GERALDP During your visit today, we recorded the following information about you: Blood pressure 120/66 Augustina Vargas MD 03/14/2025 11:17 PM Signed [facility] [id number] FOR CHRONIC PELVIC PAIN OUTPATIENT VISIT DATE 03/08/2025 OUTPATIENT VISIT TYPE FOLLOW UP CHIEF COMPLAINT follow up HISTORY OF PRESENT ILLNESS Karen is a 69 year old female who is in today for follow up. Since last visit: Pt reports that she is completing PT at [facility] and is doing a multitude of exercises such as 95 lb leg press, chest press, deadlift and notes great improvement with her hip pain and PMH of Osteoporosis and has been tolerating this exercises well. Pt reports that they have been working on PT and will incorporate PFPT back into her regimen. Pt seen Dr Angelo on 02/08/25 and it was planned to start to start her on Evenity but she will clearance from Cardiology prior to starting this medication. Pt reports that she has not had any pelvic pain within the last month as it took a while for the medication to kick in. Pt taking Motrin and Flexeril PRN. Had pelvic fractutres aug 2024 Saw PHYSICAL THERAPY Wt bearing Suppposed to start evenity 3 wks w wt exercises And feels the difference Does leg press machine Intensity of pain: None Average Pain level: 0 on a scale of 0-10 Emergency room visits for pain since last visit: No Level of physical activity and mobility: I go up to the school and do 3 laps around the track and go and down the bleaches at least 3x/week Quality of sleep: good Mood: good Side effects of medications for pain: none Pain Scales SUMMARY FROM LAST VISIT Date: NICK 12/08/24 ASSESSMENT/PLAN Encounter Diagnosis ICD-10-CM 1. High-tone pelvic floor dysfunction M62.89 2. Trigger point of abdomen R10.9 TRIGGER POINT INJECTION MULTI 1-2 MUSCLE GR 3. Myalgia, other site M79.18 TRIGGER POINT INJECTION MULTI 1-2 MUSCLE GR 4. Other osteoporosis without current pathological fracture M81.8 CONSULT TO RHEUM/IMMUN DISEASE Recovering from multiple hip fractures Takes caltrate daily Continues to have constant left lower abdomen pain Restarted PFPT Chronic constipation, take miralax once per week Vaginal Botox and abdominal TPI done today Reviewed Dexa scan in depth with pt and results are concerning for osteoporosis refer to dr bowman for opinion and tx options Continue PFPT Continue estrogen cream Follow up in 3 months for repeat TPI TREATMENT HISTORY No specialty comments available. PHYSICAL EXAM BP 120/66 LMP (LMP Unknown) Physical Exam General: The patient is a well-appearing female in no acute distress. Examination RV exam - deferred LABS/IMAGING: ASSESSMENT Encounter Diagnosis ICD-10-CM 1. High-tone pelvic floor dysfunction M62.89 2. Trigger point of abdomen R10.9 3. Myalgia, other site M79.18 PLAN Ostepoorosis Seeing ortho for knee Pelvic pain imrpved Fu as needed Augustina Vargas MD Section of Chronic Pelvic Pain 03/08/2025 9:44 AM ORDERS PLACED . 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 Vaginal botox done on: 07/06/2024, 12/08/2024 2. Abdominal TPI done on: 07/06/2024, 12/08/2024 Nonhormonal Medications 1. Flexeril 2. gabapentin 300 mg 3. motrin Hormonal medications (IUD, control pill, GNRH) 1. Esterase cream Services (GI, urology, pain psych,PFPT) 1. PFPT Referring Provider: SELF [200] Allergies As of Date: 03/08/2025 Noted Allergy Reaction CLINDAMYCIN 06/30/2018 2 - Rash 12 - Shortness of Breath DOXYCYCLINE 12/18/2023 2 - Rash VENOM-HONEY BEE 12/05/2019 2 - Rash CODEINE 06/30/2018 8 - GI Upset Date Reviewed: 03/08/2025 Reviewed by: Austin Morris RN - Fully Assessed Reason for Visit: Trigger Point Injection [1062] Pelvic Pain [282] Primary Visit Diagnosis:High-tone pelvic floor dysfunction [M62.89] Other Visit Diagnoses:Trigger point of abdomen [R10.9] Myalgia, other site [M79.18] Prescriptions as of 03/14/2025 - cholecalciferol, vitamin D3, (VITAMIN D3 ORAL) Take by mouth. - VITAMIN B COMPLEX ORAL Take by mouth. - cyclobenzaprine (FLEXERIL) 5 mg tablet 1 tablet at bedtime as needed. Use vaginally - estradiol (ESTRACE) 0.01 % (0.1 mg/gram) vaginal cream Use 0.5 g vaginally daily at (more content not included)... Normal [facility] 02-14-2025 CNPN Telephone (ZAHRA) -- KAREN ZAIDI ([id number]) 1955 F Date Time Provider Department 02/14/25 SACHI MARTINEZ During your visit today, we recorded the following information about you: Sachi Martinez APRN.[facility] 02/14/2025 10:37 AM Signed Please help Karen to reschedule cardiology apt sooner, February if possible, then schedule a follow up apt with me in March. Thank you. Gely Gutierrez 02/18/2025 9:49 AM Signed All we can do is schedule what we have and place patient on wait list. Patient is scheduled with Dr Bowens in July which is her soonest available. If she is willing to travel she might see another gen card sooner but otherwise we have nothing available here in [place] at this time. Estefany Nino 03/03/2025 12:01 PM Signed Called and spoke with patient, scheduled sooner for Cardiology in [place] Scheduled for 06/07/2025 in [place]. Patient has been again added to the wait list and marked high priority Estefany Nino 03/09/2025 2:13 PM Signed [facility] for patient to call back and schedule with Sachi Martinez APRN.[facility] Estefany Nino 03/16/2025 10:15 AM Signed 2nd attempt, spoke with patients , gave phone number for patient to call us back to schedule appointment with Sachi Martinez APRN.[facility] AFTER her CARD appointment 3rd, pham reminder to call sent Allergies As of Date: 02/14/2025 Noted Allergy Reaction CLINDAMYCIN 06/30/2018 2 - Rash 12 - Shortness of Breath DOXYCYCLINE 12/18/2023 2 - Rash VENOM-HONEY BEE 12/05/2019 2 - Rash CODEINE 06/30/2018 8 - GI Upset Date Reviewed: 02/08/2025 Reviewed by: Keena Coronado MA - Fully Assessed Primary Visit Diagnosis:Vitamin B12 deficiency [E53.8] Other Visit Diagnosis:Heart disease, unspecified [I51.9] Order(s):VITAMIN B12 [SQB12] Order #: [id number] FUTURE HOMOCYSTEINE [SQHOMCYS] Order #: [id number] FUTURE Prescriptions as of 03/24/2025 - cholecalciferol, vitamin D3, (VITAMIN D3 ORAL) Take by mouth. - VITAMIN B COMPLEX ORAL Take by mouth. - cyclobenzaprine (FLEXERIL) 5 mg tablet 1 [...] (FLONASE) 50 mcg/actuation nasal spray Use 1 Roll in the nose as needed for cold/allergy symptoms. Take in allergy season - montelukast (SINGULAIR) 10 mg tablet Take 10 mg by mouth once daily. - ibuprofen (MOTRIN) 200 mg tablet Take 400 mg by mouth two times a day. 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 Letter scan into Contactual. Recommendation: routed to nurse triage pool Last visit in this department: Visit date not found Last distance health visit in this department: Visit date not found Next visit in this department: Visit date not found Appointments for Next 60 Days Date Time Provider Location Dept Phone 03/08/2025 3:30 PM AUGUSTINA VARGAS Bld [phone] Cielo Gomez, RN 02/11/2025 1:17 PM Signed Attempted to reach patient to see if she is using Flexeril medication, if she is needing to get medication refilled, and if prior auth is needed, and if so, ask patient for Rx Bin, Rx Group, and PCN so we can complete the PA. Left VM for her to return call to office to discuss with a nurse. DIANE Vyas Janeen 02/22/2025 3:47 PM Signed Reason for call: Patient returning call Provider name: Alicia Additional comments:Patient called in and would like a call back and request that you call her cell phone as listed below. Recommendation: routed to nurse triage pool Call [phone] Thanks Erendira Hodge RN 02/23/2025 2:06 PM Signed Patient identified by name and . States she uses flexeril and it is very helpful. States she typically pays out of pocket for it but decided to see if she can get it covered with PA. PA filled out on CMM. Méndez: [id number] Will monitor status. DIANE Hernandez Kate, RN 02/23/2025 3:00 PM Signed PA approved, message sent to Pt. Erendira Chavira RN Allergies As of Date: 02/10/2025 Noted Allergy Reaction CLINDAMYCIN 06/30/2018 2 - Rash 12 - Shortness of Breath DOXYCYCLINE 12/18/2023 2 - Rash VENOM-HONEY BEE 12/05/2019 2 - Rash CODEINE 06/30/2018 8 - GI Upset Date Reviewed: 02/08/2025 Reviewed by: Keena Coronado MA - Fully Assessed Reason for Visit: Insurance Authorization [[id number]] Prescriptions as of 02/23/2025 - cyclobenzaprine (FLEXERIL) 5 mg tablet 1 [...] (FLONASE) 50 mcg/actuation nasal spray Use 1 Roll in the nose as needed for cold/allergy symptoms. Take in allergy season - montelukast (SINGULAIR) 10 mg tablet Take 10 mg by mouth once daily. - ibuprofen (MOTRIN) 200 mg tablet Take 400 mg by mouth two times a day. 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 Malnutrition of moderate degree (HCC) [E44.0] 03/03/2024 Encounter Status:Closed by CHU BLACKWELL on 02/11/25 [facility] AMOSOVon 02-08-2025 CNOV Office Visit (ZAHRA ) -- KAREN ZAIDI ([id number]) 1955 F Date Time Provider Department 02/08/25 11:20 AM GI SIDDIQI During your visit today, we recorded the following information about you: Pulse Blood pressure Weight 65/minute 146/83 63.1 kg Gi Siddiqi MD 02/10/2025 8:02 PM Signed Osteoporosis and Metabolic Bone Disease FOLLOW UP VISIT Referring Provider: Date of Service: 02/08/2025 Gender: female Ethnicity: White Age: [age] year old Chief Complaint: Follow Up (Discuss Dexa results/treatment) Last Rheumatology visit: 02/02/2025 (with Gi Siddiqi) Karen Zaidi is a 69 year old White female who presents on 02/08/2025 for in person visit for follow up of Osteoporosis. INTERVAL HISTORY February 08, 2025 Ms. Zaidi is here for f/u Osteoporosis, review results and discussing medication She would like to start on OP med. No new concerns from last visit No interim fractures Has all dental implants. Follows with dentist regularly, no jaw pain, no infections. RAPID 3 Méndez Activities of Daily Living 01/31/2025 9:25 PM Dress self? Without ANY difficulty Get in and out of bed? With SOME difficulty Walk outdoors? With SOME difficulty Wash and dry body? Without ANY difficulty Get in and out of car? With SOME difficulty Impression Diagnoses: (M81.0) Osteoporosis, post-menopausal (primary encounter diagnosis) (I25.10) Coronary artery disease involving nondalton coronary artery of nondalton heart without angina pectoris (Z82.49) Family history of cardiovascular disease (Z87.81) History of fracture of pelvis (Z82.62) Family history of osteoporosis in mother (E28.319) Early menopause occurring in patient age younger than 45 years (E55.9) Vitamin D deficiency (Z71.2) Encounter to discuss test results (Z71.89) Encounter for medication review and counseling (Z71.89) Counseling on health promotion and disease prevention The patient has: osteoporosis Patient has a history of fracture(s) Pelvic Fracture Most Recent BMD Date: 02/02/25 LS: 0.927 g/cm2 Hip - Right: 0.602 g/cm2 Hip - Left: 0.624 g/cm2 TBS: 1.187 g/cm2 LS T-Score: -2.3 LS Z-Score: -0.6 no previous value R Hip T-Score: -3.2 R Hip Z-Score: -1.9 no previous value L Hip T-Score: -3 L Hip Z-Score: -1.4 no previous value degraded < 1.231 BMD Comment: I did not include L1 due incr degen changes and the DXA JOAN did not include the superior aspect of L1 Severe Osteoporosis The patient has low bone density in the range of Osteoporosis, according to WHO classification. If patient has had fragility fracture(s), clinical diagnosis is Severe Osteoporosis. Prior history of fragility fracture: pelvis after fall from standing ht -Additional risk factors include: Postmenopausal female, very early menopause, age, previous smoking history, family history-probable FH of osteoporosis. Search in published literature cites that there has been a correlation found between the elongation of the styloid process and systemic osteoporosis. Ref: Isabel PC, Jed FC, Bebeto RAMON, Ulises SA, Knapp FJ, Nani R. Elongated styloid process and atheroma in panoramic radiography and its relationship with systemic osteoporosis and osteopenia. Osteoporos Int. 2009;21(5):831-6. doi: 10.1007/b00662-162-7918-j. Epub 2008May 05. PMID: 78225510. Her alk phos levels have not been low. She has no other findings for hypophosphatasia. There are no findings for osteogenesis imperfecta or other inherited connective tissue disease. We were able to schedule patient for DXA on 02/02/2025. I reviewed the films and included my professional opinion on the scan results. DXA 02/02/2025, lowest T-score is -3.2 (Rt TH). Patient has not been treated. This was first scan on this machine TBS spine: Degraded microarchitecture Her FRAX scores are very high for both MOF and HIP fracture risk Her fracture risk based on BMD and TBS is : Very High Pharmacologic therapy is indicated and recommended this patient. Will need to complete metabolic bone eval first and obtain dental clearance, with details under the plan section. Advised on indication for completing metabolic bone testing and evaluation and completed. Results reviewed. I reviewed risk for future fragility fractures and bone loss. Reviewed indication and guideline recommendations for pharmacologic therapy Reviewed healthy lifestyle and role of diet and exercise and stress on Osteoporosis and bone loss. I have discussed FDA approved medications Written information provided to patient on OP, Ca/D, BMD, ONJ, Bone health and recommendations, OP medications. Also provided information on web for additional information if necessary, CC, NOF and ISCD and [facility]. She has osteoarthrosis involving hands and knees. Her right knee appears to have advanced [id number]-fthr osteoarthrosis and is some (more content not included)... Normal [facility] 25(OH)D3 SerPl-mCncon 2024 25-hydroxyvitamin D3 [Mass/Vol] 33.3 ng/mL Normal 31.0-80.0 [facility] Comment on above: Order Comment: Speci men Type: BLOOD SPECIMENOrdering Facility: [facility] Address: [address] [place] [address] Result Comment: Clas sification of 25 OH Vitamin D status: Deficiency/Insufficiency: < or = 30 ng/ml. Sufficiency/Optimal Levels: 31-80 ng/mL Toxicity: > 100 ng/mL. Test performed by chemiluminescent immunoassay. Performed By: #### 1 989-3 ####[facility] [id number] [place] [address] [place] ALK PHOS BONE SPECon 025 ALK PHOSPHATASE, BONE 13.5 ug/L Normal [facility] Comment on above: Order Comment: Huseyin ponce Type: BLOOD SPECIMENOrdering Facility: [facility] Address: [address] [place] [address] Result Comment: INTE RPRETIVE INFORMATION: Bone Specific Alkaline Phosphatase Premenopausal Female: 4.5 - 16.9 ug/L Postmenopausal Female: 7.0 - 22.4 ug/L INTERPRETIVE INFORMATION: Bone Specific Alkaline Phosphatase Liver alkaline phosphatase can affect the measurement of bone specific alkaline phosphatase in this assay. Each 100 U/L of liver alkaline phosphatase contributes an additional 2.5 to 5.8 ug/L to the bone specific alkaline phosphatase result. Performed By: [facility] [address] [place] [address] Lip Cutter: Danie Andrews MD, PhD CLIA Number: [id number] Performed By: #### A PBONE ####[facility] AlertMeIA [id number] [place] [address] ALP SerPl-cCncon 02-07-2025 ALP [Catalytic activity/Vol] 83 U/L Normal 34-123 [facility] Comment on above: Order Comment: Speci [facility] Type: BLOOD SPECIMENOrdering Facility: [facility] Address: [address] [place] [address] Performed By: #### 3 016-3, 6768-6, 96680-6, 30833-7 ####[facility] [id number] [place] [id number] [place] CALCIUM, 24 HR URINEon 02-07 Calcium (24H U) [Mass/Time] 216.6 mg/24 hr Normal 100.0-300. 0 [facility] Comment on above: Order Comment: Speci men Type: URINE SPECIMENOrdering Facility: [facility] Address: [address] [place] [address] Performed By: #### U SIGRID, UCALCD ####[facility] LABCLIA [id number] [address] [facility] LABORATORYCLIA [id number] [place] [address] [place] PERIOD (HRS) 24 hr Normal [facility] Comment on above: Order Comment: Speci men Type: URINE SPECIMENOrdering Facility: [facility] Address: [address] [place] [address] Performed By: #### U SIGRID, UCALCD ####[facility] LAB[facility] [id number] [place] [id number] [place] [facility]ORYCLIA [id number] [place] [address] [place] Specimen volume (24H U) 3.8 L Normal [facility] Comment on above: Order Comment: Speci men Type: URINE SPECIMENOrdering Facility: [facility] Address: [address] [place] [address] Performed By: #### U CRD, UCALCD ####[facility] LAB[facility] [id number] [place] [id number] [place] [facility] LABORATORYCLIA [id number] [place] [address] [place] CELIAC SCREENon 04-28-2025 GLIAD DEAMIDATED IGA QUAL Negative Normal Negative, Test not Indicated [facility] Comment on above: Order Comment: Huseyin ponce Type: BLOOD SPECIMENOrdering Facility: [facility] Address: [address] [place] [address] Result Comment: This is used as an aid in diagnosis of celiac disease. Clinical correlation is required. The following results were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 Chemistry: - Calcium: Normal - Kidney function: Normal (more content not included)... Normal [facility] Large Joint Arthro/Inj: R kn abraham jointon 02-02-2025 Orquidea Saavedra MD 02/02/2025 1:58 PM Large Joint Arthro/Inj: R knee joint 02/02/2025 1:58 PM The procedure site was prepped in the usual sterile fashion. Site: R knee joint Medications: 80 mg triamcinolone acetonide 40 mg/mL Anesthetics: 8 mL lidocaine (PF) 10 mg/mL (1 %) Outcome: Tolerated well, no immediate complications Post-injection instructions were reviewed with the patient and the patient voiced understanding of these instructions. Informed Consent Consent Obtained: Verbal Gordon Protocol A moment to CARE was completed. SIGN IN Personnel directly involved with the procedure wore the appropriate PPE. Special Equipment: N/A Patient/Surrogate Stated/Verified: Patient name, Date of , Relevant allergies and Intended procedure TIME OUT Relevant labs, photos, and/or imaging studies have been reviewed. Consent documented and matches the intended procedure. Correct side/site marked and visible. Medications required for procedure verified. Third alliance party verified by Aline Pederson MA. [facility] XR KNEE 4V AP/PA BOTH+LAT/ME R RTon 02-02-2025 XR KNEE 4V AP/PA BOTH+LAT/NIRALI RT * * *Final Report* * * DATE OF EXAM: Feb 02 2025 11:11AM LZX [id number] - XR KNEE 4V AP/PA BOTH+LAT/NIRALI RT / PROCEDURE REASON: multiple diagnoses * * * * Physician Interpretation * * * * HISTORY (as given from clinical provider): Primary osteoarthritis of right knee Derangement of unsp meniscus due to old tear/inj, right knee . Additional history provided by the performing technologist (if any): --> f/u right knee DJD TECHNIQUE: XR KNEE 4V AP/PA BOTH+LAT/NIRALI RT COMPARISON: None RESULT: Severe osteoarthritis of the medial compartments and moderate osteoarthritis of the patellofemoral compartment. Joint bodies in the suprapatellar recess. No other significant abnormality. IMPRESSION: SEVERE OSTEOARTHRITIS Hairspring Adjuster: TRINI Transcribe Date/Time: Feb 02 2025 1:30P Dictated by : AMAYA BISWAS MD This examination was interpreted and the report reviewed and electronically signed by: AMAYA BISWAS MD on Feb 02 2025 1:30PM EST [id number] Normal [facility] IGP,APTIMA HPV,AGE GDLNon AGE GDLN ACOG TESTING Note . [facility] Comment on above: TESTS RESULT FLAG UN ITS REF RANGE LAB Clinician Provided Cytology Information Source.............Cervix;Endocervix No. of containers..01 ThinPrep Vial Age Algo ACOG Batsheva... Note 01 <21 or >65 or no age provided FLAG LEGEND: L-Low Normal,H-High Normal,LL-Alert Low,HH-Alert High <-Panic Low,>-Panic High,A-Abnormal,AA-Critical Abnormal Performed at: [address] [facility] [address] [place] [address] Alaina Ornelas MD, PAP IG (IMAGE GUIDED) Note . [facility] Comment on above: TESTS RESULT FLAG [facility] REF RANGE LAB DIAGNOSIS: 02 NEGATIVE FOR INTRAEPITHELIAL LESION OR MALIGNANCY. CELLULAR CHANGES ASSOCIATED WITH ATROPHY ARE PRESENT. Specimen adequacy: 02 Satisfactory for evaluation. Endocervical and/or squamous metaplastic cells (endocervical component) are present. Performed by: Abhinav Nevarez, Acute Care Physical Therapist ([facility]) . 02 Note: Note 02 The Pap smear is a screening test designed to aid in the detection of premalignant and malignant conditions of the uterine cervix. It is not a diagnostic procedure and should not be used as the sole means of detecting cervical cancer. Both false-positive and false-negative reports do occur. Test Methodology: Note 02 This liquid based ThinPrep(R) pap test was screened with the use of an image guided system. FLAG LEGEND: L-Low Normal,H-High Normal,LL-Alert Low,HH-Alert High <-Panic Low,>-Panic High,A-Abnormal,AA-Critical Abnormal Performed at: [address] [address] Alaina Ornelas MD, Performed at: =G - [facility] [address] [id number] Roller Varnisher: Alaina Ornelas MD, Phone: [phone] Performed at: [facility] [id number] Roller Varnisher: Alaina Ornelas MD, Phone: [phone] [facility]IX [facility] CNOV [facility] -- KAREN ZAIDI ([id number]) 1955 F Date Time Provider Department 12/08/24 4:00 PM AUGUSTINA VARGAS [facility] During your visit today, we recorded the following information about you: Blood pressure Weight 140/74 62.6 kg Augusitna Vargas MD 12/11/2024 4:30 PM Signed [facility] SECTION FOR CHRONIC PELVIC PAIN OUTPATIENT VISIT DATE 12/08/2024 OUTPATIENT VISIT TYPE FOLLOW UP CHIEF COMPLAINT Karen Zaidi is a 69 year old female who presents for abdominal TPI and CPP follow up. HISTORY OF PRESENT ILLNESS Karen is a 69 year old female who is in today for abdominal TPI and CPP follow up and accompanied by self. Since last visit: Patient states she broke her pelvis in four areas (R sacral fracture, R inferior/superior pubic rami fracture, L superior pubic ramus fracture) after falling on concrete in her basement on 09/02/24. She required 10 weeks of [id number]-nzootz-[id number] activity and is still attending physical therapy. She did not hit her head. Patient reports that after her injections, she initially noticed significant improvement and found her 07/06/24 injections effective for pain relief until the pelvic fracture occurred. She continues to experience constant left-sided abdominal tightness, which she rates as 10/10. She uses Flexeril at night and a heating pad, noting that her pain is worse upon waking. Took Valium for about 4 weeks and had to squat to use the toilet. Restarted PFPT sessions, having had 2 visits since her fall. BMs improve with PFPT Hard to distinguish her pelvic pain from her fracture injuries Drinks 24 ounces of coffee and continuous water all day Left sided pain is constant Reports chronic constipation and takes miralax once per week Going to [facility] on December 25, 2024 for vacation Intensity of pain: severe Average Pain level: 10 on a scale of 0-10 Emergency room visits for pain since last visit: 09/02/24, Pelvic Fractures after a fall Level of physical activity and mobility: once I get up and get going, I'm going Quality of sleep: I was waking up during the course of my fracture but but since then with the Flexeril I can sleep Mood: okay Side effects of medications for pain: none SUMMARY FROM LAST VISIT Date: 08/17/2024 Encounter Diagnosis ICD-10-CM 1. High-tone pelvic floor dysfunction M62.89 cyclobenzaprine (FLEXERIL) 5 mg tablet onabotulinum toxin type A 100 Units injection (BOTOX) Plan: 1) fu botox and abd TPI 10/05/24 2) continue flexeril vaginally TREATMENT HISTORY No specialty comments available. PHYSICAL EXAM BP 140/74 Wt 62.6 kg (138 lb) LMP (LMP Unknown) BMI 21.61 kg/m? Physical Exam Abdominal: Casualty Claim Adjuster offered: Patient declines. SENSITIVE EXAM: The sensitive examination was discussed with the Patient or Patient's Authorized Diagnostic Tech. As applicable, any other physician, advance practice provider, medical student, or other health professional student that will be observing or involved in the sensitive examination for educational or training purposes was discussed with the Patient or Authorized Diagnostic Tech. The Patient or Authorized Diagnostic Tech has agreed to proceed with the sensitive examination. (Sensitive examination includes inspection and/or palpation of the breasts, pelvis, prostate and anorectal regions). General: The patient is a well-appearing female in no acute distress. Examination Abdominal tenderness: LLQ Abdominal myofacial trigger points: LLQ Vaginal Vestibular tenderness: negative Rectal tenderness: negative Comment: constipated Bladder base tenderness: negative Uterus: non-tender Retrocervix: non-tender Adnexa: non-tender Pelvic Floor Musculature RIGHT SIDED Pubococcygeus: 3 Iliococcygeus: 3 Coccygeus: 3 Obturator: 3 LEFT SIDED Pubococcygeus: 3 Iliococcygeus: 3 Coccygeus: 3 Obturator: 3 (Pain Scale 1 to 3, 3= extreme) [...] exam could be obtained in 12 months ASSESSMENT/PLAN Encounter Diagnosis ICD-10-CM 1. High-tone pelvic floor dysfunction M (more content not included)... Normal [facility] Heidi 11-01-2024 CNPN Telephone (WHQ) -- KAREN ZAIDI ([id number]) 1955 F Date Time Provider Department 11/01/[address] 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 Had to cancel all future PT appts and will need new order for end of end november/beginning of December. 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 Other hyperlipidemia [E78.49] 02/19/2024 Ovarian varices [I86.2] 02/19/2024 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/2024 Narcotic drug use [F11.90] 02/19/2024 Sinus bradycardia on ECG [R00.1] 02/20/2024 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 Malnutrition of moderate degree (HCC) [E44.0] 03/03/2024 Encounter Status:Closed by TOSIN JIN on 09/21/24 [facility] Heidi 08-23-2024 [facility] Telephone ([facility]) -- KAREN WATKINS ([id number]) 1955 F Date Time Provider Department 08/23/24 AUGUSTINA VARGAS During your visit today, we recorded the following information about you: Nano Cline 08/23/2024 1:54 PM Signed Received call from pharmacy asking for clarification of directions for: cyclobenzaprine (FLEXERIL) 5 mg tablet States that direction says to use vaginally but prescription is for oral tablet Please advise: E- [facility] [id number] - [place] [address] - [address] - [phone] Juliet Lopez RN 08/23/2024 2:26 PM Signed Called [facility] to clarify that prescription is for Flexeril 5 mg tablets and to use 1 tablet at bedtime vaginally. 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 Malnutrition of moderate degree (HCC) [E44.0] 03/03/2024 Encounter Status:Closed by J[facility]Z [facility]) -- KAREN ZAIDI ([id number]) 1955 F Date Time Provider Department 08/17/24 AUGUSTINA VARGAS [facility] During your visit today, we recorded the following information about you: Augustina Vargas MD 08/17/2024 4:55 PM Signed Please put her on my schedule oct 05, 2024 at 2:30pm for botox, which is approved already Patient aware Augustina Vargas MD 08/18/2024 1:24 PM Signed Done Encounter Diagnosis ICD-10-CM 1. High-tone pelvic floor dysfunction M62.89 CYSTOSCOPY Dhara ChunEricaNaveen TonoLupis 08/19/2024 11:32 AM Signed Done Lupis Hodge Allergies As of Date: 08/17/2024 Noted Allergy Reaction CLINDAMYCIN 06/30/2018 2 - Rash 12 - Shortness of Breath DOXYCYCLINE 12/18/2023 2 - Rash VENOM-HONEY BEE 12/05/2019 2 - Rash CODEINE 06/30/2018 8 - GI Upset Date Reviewed: 07/06/2024 Reviewed by: Austin Morris RN - Fully Assessed Reason for Visit: Appointment [186] Primary Visit Diagnosis:High-tone pelvic floor dysfunction [M62.89] Order(s):CYSTOSCOPY [facility] [[id number]] Order #: [id number] FUTURE Prescriptions as of 08/19/2024 - cyclobenzaprine [...] (FLONASE) 50 mcg/actuation nasal spray Use 1 Roll in the nose as needed for cold/allergy [...] 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 Other hyperlipidemia [E78.49] 02/19/2024 Ovarian varices [I86.2] 02/19/2024 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/2024 Narcotic drug use [F11.90] 02/19/2024 Sinus bradycardia on ECG [R00.1] 02/20/2024 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 Malnutrition of moderate degree (HCC) [E44.0] 03/03/2024 Encounter Status:Closed by LUPIS STEELE on 08/19/24 Normal [facility] CNOVon 07-06-2024 CNOV [facility] ) -- KAREN ZAIDI ([id number]) 1955 F Date Time Provider Department 07/06/24 10:30 AM AUGUSTINA VARGAS [facility] During your visit today, we recorded the following information about you: Blood pressure Weight 132/70 61.6 kg Augustina Vargas MD 07/06/2024 11:47 AM Signed [facility] SECTION FOR CHRONIC PELVIC PAIN OUTPATIENT VISIT DATE 07/06/2024 OUTPATIENT VISIT TYPE FOLLOW UP CHIEF COMPLAINT Karen Zaidi is a 68 year old female who presents for chronic pelvic pain follow up with abdominal TPI and vaginal Botox. HISTORY OF PRESENT ILLNESS Karen is a 68 year old female who [...] included)... Normal [facility] CNPYen 06-06-2024 CNPN Telephone ([facility]) -- KAREN ZAIDI ([id number]) 1955 F Date Time Provider Department 06/06/24 AUGUSTINA VARGAS [facility] During your visit today, we recorded the following information about you: Augustina Vargas MD 06/06/2024 11:10 PM Signed Botox is approved; can she start PFPT if she desires and then do botox or do botox in office first available appointment Lupis Steele 06/07/2024 8:25 AM Signed Done Lupis Hodge Allergies As of Date: 06/06/2024 Noted Allergy [...] (FLONASE) 50 mcg/actuation nasal spray Use 1 Roll in the nose as needed for cold/allergy [...] 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 Other hyperlipidemia [E78.49] 02/19/2024 Ovarian varices [I86.2] 02/19/2024 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/2024 Narcotic drug use [F11.90] 02/19/2024 Sinus bradycardia on ECG [R00.1] 02/20/2024 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 - calcium carbonate/vitamin D3 (CALTRATE 600 + D ORAL) Take 600 mg by mouth two times a day. - atorvastatin (LIPITOR) 20 mg tablet Take 20 mg by mouth every evening. 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 Malnutrition of moderate degree (HCC) [E44.0] 03/03/2024 Encounter Status:Closed by KIRA ALVAREZ on 06/07/24 [facility]NM[facility] -- KAREN ZAIDI ([id number]) 1955 F Date Time Provider Department 05/28/24 AUGUSTINA VARGAS GYNMN During your visit today, we recorded the following information about you: Ricarda [facility] Lupis 05/28/2024 10:00 AM Signed Reason for call: [...] this department: Visit date not found Last [facility] health visit in this department: Visit date not found Next visit in this department: 08/27/2024 08/27/2024 in [facility] with AUGUSTINA VARGAS - 3 MO [...] (FLONASE) 50 mcg/actuation nasal spray Use 1 Roll in the nose as needed for cold/allergy [...] 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 Other hyperlipidemia [E78.49] 02/19/2024 Ovarian varices [I86.2] 02/19/2024 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/2024 Narcotic drug use [F11.90] 02/19/2024 Sinus bradycardia on ECG [R00.1] 02/20/2024 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 Malnutrition of moderate degree (HCC) [E44.0] 03/03/2024 Encounter Status:Closed by AUGUSTINA VARGAS on 08/18/24 [facility] CNOVon 05-27-2024 CNOV Office Visit ([facility] ) -- KAREN ZAIDI ([id number]) 1955 F Date Time Provider Department 05/27/24 10:30 AM VIET CARR During your visit today, we recorded the following information about you: Viet Carr MD 05/27/2024 11:03 AM Signed REASON [...] (FLONASE) 50 mcg/actuation nasal spray Use 1 Roll in the nose as needed for cold/allergy [...] SURGICAL HISTORY OF; Right Comment: 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 Normal [facility] -- KAREN ZAIDI ([id number]) 1955 F Date Time Provider Department 05/27/24 9:00 AM AUGUSTINA VARGAS [facility] During your visit today, we recorded the following information about you: Blood pressure Weight Height 146/80 60.3 kg 1.702 m Augustina Vargas MD 06/06/2024 11:06 PM Signed [facility] SECTION FOR CHRONIC PELVIC PAIN OUTPATIENT VISIT DATE 05/27/2024 OUTPATIENT VISIT TYPE CONSULT REFERRING PROVIDER: No ref. provider found PRIMARY CARE PROVIDER: Ammon Lucas MD PRIMARY SHEARER HELPER: Consultation requested by referring provider above for an opinion regarding Karen Zaidi, and my final recommendations will be communicated back to the requesting physician by way of shared medical record or letter via US mail. CHIEF COMPLAINT/REASON FOR CONSULTATION Chronic pelvic pain evaluation HISTORY OF PRESENT ILLNESS Karen is a 68 year od . who presents for evaluation of chronic pelvic pain. 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 and She [...] possibly saw a varicose vein; then saw PR[employer] MANAGER dr marino ; told possibly PCS, then vascular surgeon in [place], ultrasound orders in 3 venograms done , [...] is the same She makes herself eat [place] syndrome-styloid surgery She cannot travel She is fully retired Pain is there AND wakes her Pain in left anterior thigh, No PFPT Patient Relations Director Hx: (page 3) Menarche: 14 Currently experiences: Not menstruating Duration of dysmenorrhea symptoms: none Currently missing school/work: No Prior dysmenorrhea treatment: None Current control: Nothing History of STD: Negative history [place] intake LMP: No LMP recorded (lmp unknown). Patient is postmenopausal. Cycles: Menopausal Last pap: Pap Results: WNL/neg HPV 03/2023 History of abnormal pap: No [place]: (MA intake) Dyspareunia: both insertional and deep [...] endorses Pain changes with bowel movements: endorses. [place] scale: dnc Pudendal symptoms: (page 13) Pain [...] included)... Normal [facility] URINALYSIS, REFLEX MICROSCOP ICon 05-27-2024 Bilirubin Ql (U) Negative Negative [facility] Clarity (Unsp spec) Clear Clear [facility] Color (U) Yellow Yellow [facility] Glucose Test strip (U) [Mass/Vol] Negative Negative [facility] Hemoglobin Ql (U) Negative Negative [facility] Interpretation and review of laboratory results Normal [facility] Ketones Ql (U) Negative Negative [facility] Leukocyte esterase Test strip Ql (U) Negative Negative [facility] Nitrite Ql (U) Negative Negative [facility] pH (U) 5.5 [pH] NINF - 8.5 [facility] Protein (U) [Mass/Vol] Negative Negative [facility] Specific gravity (U) [Rel density] 1.010 1.005 - 1.030 [facility] Urobilinogen Ql (U) 0.2 EU/dL 0.2-1.0 EU/dL [facility] This test was develo ped and its performance characteristics determined by [facility]'s Raoul Carrillo [facility] [place] ([facility]). It has not been cleared or approved by the FDA. [facility] is regulated under CLIA as qualified to perform high-complexity testing. This test is used for clinical purposes. It should not be regarded as investigational or for research. [facility] Bilirubin Ql (U) Negative Normal Negative [facility] Comment on above: Order Comment: Speci men Type: URINE SPECIMENOrdering Facility: [facility] Address: [address] [place] [address] Performed By: #### L [id number] ####[facility] [id number] [place] [address] [place] Clarity (Unsp spec) Clear Normal Clear [facility] Comment on above: Order Comment: Speci men Type: URINE SPECIMENOrdering Facility: [facility] Address: [address] [place] [address] Performed By: #### L [id number] ####[facility] [id number] [place] [address] [place] Color (U) Yellow Normal Yellow [facility] Comment on above: Order Comment: Speci men Type: URINE SPECIMENOrdering Facility: [facility] Address: [address] [place] [address] Performed By: #### L [id number] ####[facility] [id number] [place] [address] [place] Glucose Test strip (U) [Mass/Vol] Negative Normal Negative [facility] Comment on above: Order Comment: Speci men Type: URINE SPECIMENOrdering Facility: [facility] Address: [address] [place] [address] Performed By: #### L [id number] ####[facility] [id number] [place] [address] [place] Hemoglobin Ql (U) Negative Normal Negative [facility] Comment on above: Order Comment: Speci men Type: URINE SPECIMENOrdering Facility: [facility] Address: [address] [place] [address] Performed By: #### L [id number] ####[facility] [id number] [place] [address] [place] Ketones Ql (U) Negative Normal Negative [facility] Comment on above: Order Comment: Speci men Type: URINE SPECIMENOrdering Facility: [facility] Address: [address] [place] [address] Performed By: #### L [id number] ####[facility] [id number] [place] [address] [place] Leukocyte esterase Test strip Ql (U) Negative Normal Negative [facility] Comment on above: Order Comment: Speci men Type: URINE SPECIMENOrdering Facility: [facility] Address: [address] [place] [address] Performed By: #### L [id number] ####[facility] [id number] [place] [address] [place] Nitrite Ql (U) Negative Normal Negative [facility] Comment on above: Order Comment: Speci men Type: URINE SPECIMENOrdering Facility: [facility] Address: [address] [place] [address] Performed By: #### L [id number] ####[facility] [id number] [place] [address] [place] pH (U) 5.5 [pH] Normal <8.5 [facility] Comment on above: Order Comment: Speci men Type: URINE SPECIMENOrdering Facility: [facility] Address: [address] [place] [address] Performed By: #### L [id number] ####[facility] [id number] [place] [address] [place] Protein (U) [Mass/Vol] Negative Normal Negative [facility] Comment on above: Order Comment: Speci men Type: URINE SPECIMENOrdering Facility: [facility] Address: [address] [place] [address] Performed By: #### L [id number] ####[facility] [id number] [place] [address] [place] Specific gravity (U) [Rel density] 1.010 Normal 1.005-1.03 0 [facility] Comment on above: Order Comment: Speci men Type: URINE SPECIMENOrdering Facility: [facility] Address: [address] [place] [address] Performed By: #### L [id number] ####[facility] [id number] [place] [address] [place] Urobilinogen Ql (U) 0.2 EU/dL Normal 0.2-1.0 EU/dL [facility] Comment on above: Order Comment: Speci men Type: URINE SPECIMENOrdering Facility: [facility] Address: [address] [place] [address] Performed By: #### L [id number] ####[facility] [id number] [place] [address] [place] CT CHEST WO [...] Villafuerte MD on 05/11/2024 8:36 AM Normal [facility] CREATININE, BLOOD (POC)on Creatinine [Mass/Vol] 0.80 mg/dL 0.7 - 1.4 mg/dL [facility] eGFR (POCT) mL/min/1.7 3 m2 [facility] Location:[facility], [address] [place] [address] POINT OF CARE [facility] CT ABD/PEL W IVCONon 024 CT [...] obtained in 12 months --END OF FINDING-- Hairspring Adjuster: TRINI Transcribe Date/Time: Apr 30 2024 12:52P Dictated by : KARI LUJAN MD This examination was interpreted and the report reviewed and electronically signed by: KARI LUJAN MD on Apr 30 2024 1:16PM EST [id number] [id number] Invalid Interpretation Code [facility] NURSING PROGon 04-26-2024 NURSING PROG HNO ID: [id number] Author: JULIEN OLEA RN Service: Radiology Author Type: Registered [...] Intact SIGNATURE: Alysha Dale RN PATIENT NAME: Karen Zaidi DATE: April 26, 2024 TIME: 1:22 PM Normal [facility] URINALYSIS, REFLEX MICROSCOP ICon 02-19-2024 Bilirubin Ql (U) Negative Negative [facility] Clarity (Unsp spec) Clear Clear [facility] Color (U) Colorless Yellow [facility] Glucose Test strip (U) [Mass/Vol] Negative Trace, Negative [facility] Hemoglobin Ql (U) Negative Negative, Trace [facility] Interpretation and review of laboratory results Normal [facility] Ketones Ql (U) Negative Negative, Trace [facility] Leukocyte esterase Test strip Ql (U) Negative Negative, 25 Jefry/uL [facility] Nitrite Ql (U) Negative Negative [facility] pH (U) 5.0 [pH] 5.0 - 8.0 [facility] Protein (U) [Mass/Vol] Negative Trace, Negative [facility] Specific gravity (U) [Rel density] 1.005 1.005 - 1.030 [facility] Urobilinogen Ql (U) Normal Normal [facility] URINALYSIS, REFLEX MICROSCOP ICon 12-25-2023 Bilirubin Ql (U) Negative Negative [facility] Clarity (Unsp spec) Clear Clear [facility] Color (U) Colorless Yellow [facility] Glucose Test strip (U) [Mass/Vol] Negative Trace, Negative [facility] Hemoglobin Ql (U) Negative Negative, Trace [facility] Ketones Ql (U) Negative Negative, Trace [facility] Leukocyte esterase Test strip Ql (U) Negative Negative, 25 Jefry/uL [facility] Nitrite Ql (U) Negative Negative [facility] pH (U) 5.0 [pH] 5.0 - 8.0 [facility] Protein (U) [Mass/Vol] Negative Trace, Negative [facility] Specific gravity (U) [Rel density] 1.004 Low 1.005 - 1.030 [facility] Urobilinogen Ql (U) Normal Normal [facility] URINALYSIS, REFLEX MICROSCOP ICon 12-22-2023 Bilirubin Ql (U) Negative Negative [facility] Clarity (Unsp spec) Clear Clear [facility] Color (U) Colorless Yellow [facility] Glucose Test strip (U) [Mass/Vol] Negative Trace, Negative [facility] Hemoglobin Ql (U) Negative Negative, Trace [facility] Ketones Ql (U) Negative Negative, Trace [facility] Leukocyte esterase Test strip Ql (U) Negative Negative, 25 Jefry/uL [facility] Nitrite Ql (U) Negative Negative [facility] pH (U) 5.0 [pH] 5.0 - 8.0 [facility] Protein (U) [Mass/Vol] Negative Trace, Negative [facility] Specific gravity (U) [Rel density] 1.006 1.005 - 1.030 [facility] Urobilinogen Ql (U) Normal Normal [facility] ECG 12 leadon 11-13-2023 TRACEMASTERVUE [facility] CBC without diffon Erythrocyte distribution width (RBC) [Ratio] 14.5 % 11.5 - 15.0 % [facility] Hematocrit (Bld) [Volume fraction] 38.5 % 35 - 47 % [facility] Hemoglobin (Bld) [Mass/Vol] 12.9 g/dL 11.7 - 15.5 g/dL [facility] MCH (RBC) [Entitic mass] 29.2 pg 27 - 34 pg [facility] MCHC (RBC) [Mass/Vol] 33.6 g/dL 32 - 36 g/dL [facility] MCV (RBC) [Entitic vol] 87 fL 80 - 100 fL [facility] Platelet mean volume (Bld) [Entitic vol] 10.5 fL 7 - 12 fL [facility] Platelets (Bld) [#/Vol] 205 10*3/uL [facility] RBC (Bld) [#/Vol] 4.43 10*6/uL [facility] WBC corrected for nucl RBC Auto (Bld) [#/Vol] 4.8 [facility] COMPLETE BLOOD COUNTon 11-12 Erythrocyte distribution width (RBC) [Ratio] 14.5 % Normal 11.5-15.0 [facility] Comment on above: Performed By: #### C BC, DATA ENTRY OPERATOR #### [facility] ([id number]) [address], [address] [place] [address] Hematocrit (Bld) [Volume fraction] 38.5 % Normal 35-47 [facility] Comment on above: Performed By: #### C BC, DATA ENTRY OPERATOR #### [facility] ([id number]) [address], [address] [place] [address] Hemoglobin (Bld) [Mass/Vol] 12.9 g/dL Normal 11.7-15.5 [facility] Comment on above: Performed By: #### C ZAIDA, DATA ENTRY OPERATOR #### [facility] ([id number]) [address], [address] [place] [address] MCH (RBC) [Entitic mass] 29.2 pg Normal 27-34 [facility] Comment on above: Performed By: #### C ZAIDA, DATA ENTRY OPERATOR #### [facility] ([id number]) [address], [address] [place] [address] MCHC (RBC) [Mass/Vol] 33.6 g/dL Normal 32-36 [facility] Comment on above: Performed By: #### C ZAIDA, DATA ENTRY OPERATOR #### [facility] ([id number]) [address], [address] [place] [address] MCV (RBC) [Entitic vol] 87 fL Normal 80-100 [facility] Comment on above: Performed By: #### Kenneth CERDA, DATA ENTRY OPERATOR #### [facility] ([id number]) [address], [address] [place] [address] Platelet mean volume (Bld) [Entitic vol] 10.5 fL Normal 7-12 [facility] Comment on above: Performed By: #### Kenneth CERDA, DATA ENTRY OPERATOR #### [facility] ([id number]) [address], [address] [place] [address] Platelets (Bld) [#/Vol] 205 10*3/uL Normal 150-450 [facility] Comment on above: Performed By: #### C BC, DATA ENTRY OPERATOR #### [facility] ([id number]) [address] [address] RBC COUNT 4.43 X10E12/L Normal 3.80-5.20 [facility] Comment on above: Performed By: #### C BC, DATA ENTRY OPERATOR #### [facility] ([id number]) [address] [address] WBC (Bld) [#/Vol] 4.8 10*3/uL Normal 4.0-11.0 [facility] Comment on above: Performed By: #### C ZAIDA, DATA ENTRY OPERATOR #### [facility] ([id number]) [address] [address] CREATININEon 11-12-2023 Creatinine [Mass/Vol] 0.90 mg/dL Normal 0.40-1.00 [facility] Comment on above: Result Comment: METH OD TRACEABLE TO IDMS STANDARD Performed By: #### C ZAIDA, DATA ENTRY OPERATOR #### [facility] ([id number]) [address] [address] GFR/1.73 sq M.predicted among non-blacks MDRD (S/P/Bld) [Vol rate/Area] 71 mL/min/{1.73_m2} Normal >59 [facility] Comment on above: Result Comment: Reported eGFR is based on the CKD-EPI 2020 equation that does not use a race coefficient. Performed By: #### C ZAIDA, DATA ENTRY OPERATOR #### [facility] ([id number]) [address] [address] Creatinine includes GFR, ser umon 11-12-2023 Creatinine [Mass/Vol] 0.90 mg/dL 0.40 - 1.00 mg/dL [facility] Comment on above: METHOD TRACEABLE TO IDMS STANDARD eGFR (CKD-EPI)non-race dependent 71 - PINF [facility] Comment on above: Reported eGFR is based on the CKD-EPI 2020 equation that does not use a race coefficient. [facility] CBC AUTO DIFFon 02-18-2023 BASO # 0.1 103/ul Normal 0.0-0.1 [facility] Comment on above: Performed By: #### C BC #### [facility] [address] [address] [address] Camilo Reese Basophils/100 WBC (Bld) 1.4 % Normal 0.2-2.0 [facility] Comment on above: Performed By: #### C BC #### [facility] [address] [address] [address] Camilo Reese EO # 0.1 103/ul Normal 0.0-0.7 [facility] Comment on above: Performed By: #### C BC #### [facility] [address] [place] [address] Dr. Camlio Reese Eosinophils/100 WBC (Bld) 2.4 % Normal 0.9-7.0 [facility] Comment on above: Performed By: #### C BC #### [facility] [address] [place] [address] Dr. Camilo Reese Erythrocyte distribution width (RBC) [Ratio] 13.9 % Normal 11.0-15.0 [facility] Comment on above: Performed By: #### C BC #### [facility] [address] [place] [address] Dr. Camilo Reese Hematocrit (Bld) [Volume fraction] 41.3 % Normal 36.0-48.0 [facility] Comment on above: Performed By: #### C BC #### [facility] [address] [address] [address] Camilo Reese Hemoglobin (Bld) [Mass/Vol] 13.5 g/dL Normal 12.0-16.0 [facility] Comment on above: Performed By: #### C BC #### [facility] [address] [place] [address] Dr. Camilo Reese IG # 0.00 10e3/ul Normal 0.00-0.03 [facility] Comment on above: Performed By: #### C BC #### [facility] [address] [place] [address] Dr. Camilo Reese IG % 0.0 % Normal 0.0-0.5 [facility] Comment on above: Performed By: #### C BC #### [facility] [address] [place] [address] Dr. Camilo Reese LYMPH # 1.3 103/ul Normal 1.2-3.[address] [facility] Comment on above: Performed By: #### C BC #### [facility] [address] [place] [address] Dr. Camilo Reese Lymphocytes/100 WBC (Bld) 31.0 % Normal 20.5-60.0 [facility] Comment on above: Performed By: #### C BC #### [facility] [address] [place] [address] Dr. Camilo Reese MANUAL DIFF REQ NO Normal [facility] Comment on above: Performed By: #### C BC #### [facility] [address] [place] [address] Dr. Camilo Reese MCH (RBC) [Entitic mass] 29.2 pg Normal 26.7-34.0 [facility] Comment on above: Performed By: #### C BC #### [facility] [address] [place] [address] Dr. Camilo Reese MCHC (RBC) [Mass/Vol] 32.7 g/dL Normal 29.9-35.2 [facility] Comment on above: Performed By: #### C BC #### [facility] [address] [place] [address] Dr. Camilo Reese MCV (RBC) [Entitic vol] 89.4 fL Normal 81.0-99.[address] [facility] Comment on above: Performed By: #### C BC #### [facility] [address] [place] [address] Dr. Camilo Reese MONO # 0.6 103/ul Normal 0.3-0.[address] [facility] Comment on above: Performed By: #### C BC #### [facility] [address] [place] [address] Dr. Camilo Reese Monocytes/100 WBC (Bld) 13.8 % Critically high 1.7-12.0 [facility] Comment on above: Performed By: #### C BC #### [facility] [address] [place] [address] Dr. Camilo Reese NEUT # 2.2 103/ul Normal 1.4-6.[address] [facility] Comment on above: Performed By: #### C BC #### [facility] [address] [place] [address] Dr. Camilo Reese Neutrophils/100 WBC (Bld) 51.4 % Normal 43.0-75.0 [facility] Comment on above: Performed By: #### C BC #### [facility] [address] [place] [address] Dr. Camilo Reese Platelet mean volume (Bld) [Entitic vol] 11.5 fL Normal 9.5-13.5 [facility] Comment on above: Performed By: #### C BC #### [facility] [address] [place] [address] Dr. Camilo Reese PLT 254 103/ul Normal 150-[address] [facility] Comment on above: Performed By: #### C BC #### [facility] [address] [place] [address] Dr. Camilo Reese RBC 4.62 106/ul Normal 4.20-5.[address] [facility] Comment on above: Performed By: #### C BC #### [facility] [address] [place] [address] Dr. Camilo Reese WBC 4.2 103/ul Normal 4.0-11.[address] [facility] Comment on above: Performed By: #### C BC #### [facility] [address] [place] [address] ABD/PELVIS WO CONon [...] pelvis are favored to represent pelvic phleboliths. Gastrointestinal/Peritoneu m: No acute abnormality. The appendix is not [...] by: ELIE NEVES Date: 2023-02-18 11:36 Normal [facility] ER URINE PROFILEon 3 Bilirubin Ql (U) SMALL Abnormal NEGATIVE [facility] Comment on above: Performed By: #### U MICRO, ERUR #### [facility] [address] [address] [address] Camilo Reese Clarity (U) CLEAR Normal CLEAR [facility] Comment on above: Performed By: #### U MICRO, ERUR #### [facility] [address] [address] [address] Caimlo Reese Color (U) DK. YELLOW Normal YELLOW [facility] Comment on above: Performed By: #### U MICRO, ERUR #### [facility] [address] [address] [address] Camilo Reese ERUAHD A micrscopic examina tion will be performed if indicated. Normal [facility] Comment on above: Performed By: #### U MICRO, ERUR #### [facility] [address] [address] [address] Camilo Reese Glucose Ql (U) Negative Normal NEGATIVE [facility] Comment on above: Performed By: #### U MICRO, ERUR #### [facility] [address] [address] [address] Camilo Reese Hemoglobin Ql (U) TRACE-INTACT Abnormal NEGATIVE [facility] Comment on above: Performed By: #### U MICRO, ERUR #### [facility] [address] [place] [address] Dr. Camilo Reese Ketones Ql (U) TRACE Abnormal NEGATIVE [facility] Comment on above: Performed By: #### U MICRO, ERUR #### [facility] [address] [place] [address] Dr. Camilo Reese LEUKOCYTES Negative Normal NEGATIVE [facility] Comment on above: Performed By: #### U MICRO, ERUR #### [facility] [address] [place] [address] Dr. Camilo Reese Nitrite Ql (U) Negative Normal NEGATIVE [facility] Comment on above: Performed By: #### U MICRO, ERUR #### [facility] [address] [place] [address] Dr. Camilo Reese pH (U) 5.0 [pH] Normal 5-9 [facility] Comment on above: Performed By: #### U MICRO, ERUR #### [facility] [address] [place] [address] Dr. Camilo Reese SPEC GRAVITY >=1.030 Abnormal 1.005-<=1. 025 [facility] Comment on above: Performed By: #### U MICRO, ERUR #### [facility] [address] [place] [address] Dr. Camilo Reese UA PROTEIN Negative Normal NEGATIVE/ TRACE [facility] Comment on above: Performed By: #### U MICRO, ERUR #### [facility] [address] [place] [address] Dr. Camilo Reese UR MICRO IND INDICATED Normal [facility] Comment on above: Performed By: #### U MICRO, ERUR #### [facility] [address] [place] [address] Dr. Camilo Reese Urobilinogen Qn (U) 0.2 {Alberta'U}/dL Normal 0.2 - 1. 0 [facility] Comment on above: Performed By: #### U MICRO, ERUR #### [facility] [address] [address] [address] Camilo Reese PROF 14(COMP METB)on 023 Albumin [Mass/Vol] 4.0 g/dL Normal 3.4-5.0 [facility] Comment on above: Performed By: #### C MP #### [facility] [address] [address] [address] Camilo Reese Albumin/Globulin [Mass ratio] 1.2 {ratio} Normal [facility] Comment on above: Performed By: #### C MP #### [facility] [address] [place] [address] Dr. Camilo Reese ALP [Catalytic activity/Vol] 69 U/L Normal 46-116 [facility] Comment on above: Performed By: #### C MP #### [facility] [address] [place] [address] Dr. Camilo Reese ALT [Catalytic activity/Vol] 18 U/L Normal 14-59 [facility] Comment on above: Performed By: #### C MP #### [facility] [address] [place] [address] Dr. Camilo Reese Anion gap [Moles/Vol] 11.7 mmol/L Normal [facility] Comment on above: Performed By: #### C MP #### [facility] [address] [place] [address] Dr. Camilo Reese AST [Catalytic activity/Vol] 21 U/L Normal 15-37 [facility] Comment on above: Performed By: #### C MP #### [facility] [facility] [address] [place] [address] Dr. Camilo Reese Bilirubin [Mass/Vol] 1.0 mg/dL Normal 0.2-1.0 [facility] Comment on above: Performed By: #### C MP #### [facility] [address] [place] [address] Dr. Camilo Reese Calcium [Mass/Vol] 9.1 mg/dL Normal 8.5-10.1 [facility] Comment on above: Performed By: #### C MP #### [facility] [address] [address] [address] Camilo Reese Chloride [Moles/Vol] 103 mmol/L Normal 98-[address] [facility] Comment on above: Performed By: #### C MP #### [facility] [address] [address] [address] Camilo Reese CO2 [Moles/Vol] 28.7 mmol/L Normal 21.0-32.0 [facility] Comment on above: Performed By: #### C MP #### [facility] [address] [address] [address] Camilo Reese Creatinine [Mass/Vol] 0.95 mg/dL Normal 0.55-1.02 [facility] Comment on above: Performed By: #### C MP #### [facility] [address] [address] [address] Camilo Reese EGFR-AF OMANI >60 Normal >=60 [facility] Comment on above: Performed By: #### C MP #### [facility] [address] [address] [address] Camilo Reese EGFR-NON AF OMANI 59 mL/min/1.73m2 Critically low >=60 [facility] Comment on above: Performed By: #### C MP #### [facility] [address] [address] [address] Camilo Reese Globulin (S) [Mass/Vol] 3.4 g/dL Normal [facility] Comment on above: Performed By: #### C MP #### [facility] [address] [address] [address] Camilo Reese Glucose [Mass/Vol] 101 mg/dL Normal 74-106 [facility] Comment on above: Performed By: #### C MP #### [facility] [address] [address] [address] Camilo Reese Potassium [Moles/Vol] 3.4 mmol/L Critically low 3.5-5.[address] [facility] Comment on above: Performed By: #### C MP #### [facility] [address] [address] [address] Camilo Reese Protein [Mass/Vol] 7.4 g/dL Normal 6.4-8.2 [facility] Comment on above: Performed By: #### C MP #### [facility] [address] [place] [address] Dr. Camilo Reese Sodium [Moles/Vol] 140 mmol/L Normal 136-145 [facility] Comment on above: Performed By: #### C MP #### [facility] [address] [address] [address] Camilo Reese Urea nitrogen [Mass/Vol] 17.0 mg/dL Normal 7.0-18.0 [facility] Comment on above: Performed By: #### C MP #### [facility] [address] [place] [address] Dr. Camilo Reese Urea nitrogen/Creatinine [Mass ratio] 17.9 mg/mg Normal [facility] Comment on above: Performed By: #### C MP #### [facility] [address] [place] [address] Dr. Camilo Reese URINE MICROSCOPIC ONLYon BACTERIA TRACE Abnormal NONE SEEN [facility] Comment on above: Performed By: #### U MICRO, ERUR #### [facility] [address] [place] [address] Dr. Camilo Reese Bacteria identified Cx Nom (U) NOT INDICATED Normal [facility] Comment on above: Performed By: #### U MICRO, ERUR #### [facility] [address] [place] [address] Dr. Camilo Reese CAST NONE SEEN Normal NONE SEEN [facility] Comment on above: Performed By: #### U MICRO, ERUR #### [facility] [address] [address] [address] Camilo Reese Crystals LM Nom (Urine sed) NONE SEEN Normal NONE SEEN [facility] Comment on above: Performed By: #### U MICRO, ERUR #### [facility] [address] [place] [address] Dr. Camilo Reese Epithelial cells LM Ql (Urine sed) RARE Normal NONE SEEN /RARE [facility] Comment on above: Performed By: #### U MICRO, ERUR #### [facility] [address] [address] [address] Camilo Reese MUCOUS TRACE Abnormal NONE SEEN [facility] Comment on above: Performed By: #### U MICRO, ERUR #### [facility] [address] [address] [address] Camilo Reese RBC 0-2 Normal 0-[address] [facility] Comment on above: Performed By: #### U MICRO, ERUR #### [facility] [address] [address] [address] Camilo Reese WBC NONE SEEN Normal NONE SEEN [facility] Comment on above: Performed By: #### U MICRO, ERUR #### [facility] [address] [address] [address] Camilo Reese US EXT NON VASC [...] DEREK MCCRAY Date: 2023-02-18 14:[address] [facility] Urinalysis - AUTOMATEDon Appearance (U) clear [employer] Other Bilirubin Ql (U) Negative [employer] Other Color (U) light yellow Only [employer] Other Glucose Ql (U) Negative [employer] Other Hemoglobin Ql (U) trace intact Only [employer] Other Ketones Ql (U) Negative [employer] Other Leukocyte esterase Test strip Ql (U) Negative Only [employer] Other Nitrite Ql (U) Negative [employer] Other pH (U) 6.0 [pH] Only [employer] Other Protein Ql (U) Negative [employer] Other Specific gravity (U) [Rel density] <1.005 Only [employer] Other Urobilinogen (U) [Mass/Vol] 0.2 mg/dL Only [employer] Other Urinalysis - AUTOMATED Only [employer] Other CBC AUTO DIFFon 11-01-2022 BASO # 0.1 103/ul Normal 0.0-0.1 [facility] Comment on above: Performed By: #### D ATCBC #### [facility] [address] [place] [address] Dr. Camilo Reese Basophils/100 WBC (Bld) 1.3 % Normal 0.2-2.0 [facility] Comment on above: Performed By: #### D ATCBC #### [facility] [address] [place] [address] Dr. Camilo Reese EO # 0.2 103/ul Normal 0.0-0.7 [facility] Comment on above: Performed By: #### D ATCBC #### [facility] [address] [address] [address] Camilo Reese Eosinophils/100 WBC (Bld) 5.2 % Normal 0.9-7.0 [facility] Comment on above: Performed By: #### D ATCBC #### [facility] [address] [place] [address] Dr. Camilo Reese Erythrocyte distribution width (RBC) [Ratio] 14.6 % Normal 11.0-15.0 [facility] Comment on above: Performed By: #### D ATCBC #### [facility] [address] [place] [address] Dr. Camilo Reese Hematocrit (Bld) [Volume fraction] 42.9 % Normal 36.0-48.0 [facility] Comment on above: Performed By: #### D ATCBC #### [facility] [address] [address] [address] Camilo Reese Hemoglobin (Bld) [Mass/Vol] 13.9 g/dL Normal 12.0-16.0 [facility] Comment on above: Performed By: #### D ATCBC #### [facility] [address] [address] [address] Camilo Reese IG # 0.01 10e3/ul Normal 0.00-0.03 [facility] Comment on above: Performed By: #### D ATCBC #### [facility] [address] [address] [address] Camilo Reese IG % 0.3 % Normal 0.0-0.5 [facility] Comment on above: Performed By: #### D ATCBC #### [facility] [address] [address] [address] Camilo Reese LYMPH # 1.3 103/ul Normal 1.2-3.8 [facility] Comment on above: Performed By: #### D ATCBC #### [facility] [address] [place] [address] Dr. Camilo Reese Lymphocytes/100 WBC (Bld) 33.6 % Normal 20.5-60.0 [facility] Comment on above: Performed By: #### D ATCBC #### [facility] [address] [address] [address] Camilo Reese MCH (RBC) [Entitic mass] 28.7 pg Normal 26.7-34.0 [facility] Comment on above: Performed By: #### D ATCBC #### [facility] [address] [address] [address] Camilo Reese MCHC (RBC) [Mass/Vol] 32.4 g/dL Normal 29.9-35.2 [facility] Comment on above: Performed By: #### D ATCBC #### [facility] [address] [address] [address] Camilo Reese MCV (RBC) [Entitic vol] 88.5 fL Normal 81.0-99.0 [facility] Comment on above: Performed By: #### D ATCBC #### [facility] [address] [place] [address] Dr. Camilo Reese MONO # 0.6 103/ul Normal 0.3-0.8 [facility] Comment on above: Performed By: #### D ATCBC #### [facility] [address] [place] [address] Dr. Camilo Reese Monocytes/100 WBC (Bld) 15.0 % Critically high 1.7-12.0 [facility] Comment on above: Performed By: #### D ATCBC #### [facility] [address] [place] [address] Dr. Camilo Reese NEUT # 1.7 103/ul Normal 1.4-6.5 [facility] Comment on above: Performed By: #### D ATCBC #### [facility] [address] [place] [address] Dr. Camilo Reese Neutrophils/100 WBC (Bld) 44.6 % Normal 43.0-75.0 [facility] Comment on above: Performed By: #### D ATCBC #### [facility] [address] [place] [address] Dr. Camilo Reese Platelet mean volume (Bld) [Entitic vol] 11.5 fL Normal 9.5-13.[address] [facility] Comment on above: Performed By: #### D ATCBC #### [facility] [address] [place] [address] Dr. Camilo Reese PLT 240 103/ul Normal 150-[address] [facility] Comment on above: Performed By: #### D ATCBC #### [facility] [address] [place] [address] Dr. Camilo Reese RBC 4.85 106/ul Normal 4.20-5.[address] [facility] Comment on above: Performed By: #### D ATCBC #### [facility] [address] [place] [address] Dr. Camilo Reese WBC 3.8 103/ul Critically low 4.0-11.0 [facility] Comment on above: Performed By: #### D ATCBC #### [facility] [address] [address] [address] Camilo Reese DAMARIS- BMP WITH LIPIDon 2022 Anion gap [Moles/Vol] 10.7 mmol/L Normal [facility] Comment on above: Performed By: #### D ATBMP #### [facility] [address] [address] [address] Camilo Reese Calcium [Mass/Vol] 9.1 mg/dL Normal 8.5-10.1 [facility] Comment on above: Performed By: #### D ATBMP #### [facility] [address] [address] [address] Camilo Reese Chloride [Moles/Vol] 103 mmol/L Normal 98-107 [facility] Comment on above: Performed By: #### D ATBMP #### [facility] [address] [address] [address] Camilo Reese Cholesterol [Mass/Vol] 216 mg/dL Critically high <=200 [facility] Comment on above: Performed By: #### D ATBMP #### [facility] [address] [address] [address] Camilo Reese Cholesterol in HDL [Mass/Vol] 111 mg/dL Critically high 40-60 [facility] Comment on above: Performed By: #### D ATBMP #### [facility] [address] [address] [address] Camilo Reese Cholesterol in LDL [Mass/Vol] 91.0 mg/dL Normal [facility] Comment on above: Performed By: #### D ATBMP #### [facility] [address] [address] [address] Camilo Reese CO2 [Moles/Vol] 31.4 mmol/L Normal 21.0-32.0 [facility] Comment on above: Performed By: #### D ATBMP #### [facility] [address] [address] [address] Camilo Reese Creatinine [Mass/Vol] 0.72 mg/dL Normal 0.55-1.02 [facility] Comment on above: Performed By: #### D ATBMP #### [facility] [address] [address] [address] Camilo Reese EGFR-AF OMANI >60 Normal >=60 [facility] Comment on above: Performed By: #### D ATBMP #### [facility] [address] [address] [address] Camilo Reese EGFR-NON AF OMANI >60 Normal >=60 [facility] Comment on above: Performed By: #### D ATBMP #### [facility] [address] [address] [address] Camilo Reese Glucose [Mass/Vol] 89 mg/dL Normal 74-106 [facility] Comment on above: Performed By: #### D ATBMP #### [facility] [address] [address] [address] Camilo Reese HDL NORMAL > or = 60 mg/dl - LO W CARDIOVASCULAR RISK <40 mg/dl - HIGH CARDIOVASCULAR RISK Normal [facility] Comment on above: Performed By: #### D ATBMP #### [facility] [address] [address] [address] Camilo Reese LDL CALC NORMAL SEE BELOW Normal [facility] Comment on above: Result Comment: <100 mg/dl OPTIMAL 100 - 129 mg/dl NEAR OR ABOVE OPTIMAL 130 - 159 mg/dl BORDERLINE HIGH 160 - 189 mg/dl HIGH >190 mg/dl VERY HIGH Performed By: #### D ATBMP #### [facility] [address] [address] [address] Camilo Reese Potassium [Moles/Vol] 4.1 mmol/L Normal 3.5-5.[address] [facility] Comment on above: Performed By: #### D ATBMP #### [facility] [address] [address] [address] Camilo Reese Sodium [Moles/Vol] 141 mmol/L Normal 136-145 [facility] Comment on above: Performed By: #### D ATBMP #### [facility] [address] [address] [address] Camilo Reese Triglyceride [Mass/Vol] 70 mg/dL Normal <=150 [facility] Comment on above: Performed By: #### D ATBMP #### [facility] [address] [address] [address] Camilo Reese Urea nitrogen [Mass/Vol] 17.0 mg/dL Normal 7.0-18.0 [facility] Comment on above: Performed By: #### D ATBMP #### [facility] [address] [address] [address] Camilo Reese Urea nitrogen/Creatinine [Mass ratio] 23.6 mg/mg Normal [facility] Comment on above: Performed By: #### D ATBMP #### [facility] [address] [address] [address] Camilo Reese VLDL CALC 14.0 mg/dL Normal [facility] Comment on above: Performed By: #### D ATBMP #### [facility] [address] [address] [address] Camilo Reese MG MAMM SCREEN 3D ALYSON CADon 08-13-2022 MG MAMM SCREEN 3D ALYSON CAD Patient: KAREN ZAIDI Exam Date: 08/13/2022 : 1955 Gender:F Ordering : DR AMMON LUCAS M.D. Admission #: [id number] Family : Order #: [id number] CLICK HERE TO VIEW EXAM RADIOLOGY REPORT PROCEDURE: MAMMOGRAM SCREENING 3D BILATERAL CAD COMPARISON: MG MAMM SCREEN ALYSON W CAD, 08/10/2018. INDICATIONS: Screening mammography Calculator Name NCI Breast Cancer Risk Assessment Tool 5 Year Breast Cancer Risk 1.40% Lifetime Breast Cancer Risk 5.80% Personal Breast Cancer No Personal Ovarian Cancer No Treatments None Family Cancers None LOCATION: [facility] BREAST COMPOSITION: Scattered areas fibroglandular [...] MD on 08/13/2022 at 15:[address] [facility] SARS-CoV-2 (COVID-19) RNA NA A+probe Ql (Resp)on 07-28-2022 SARS-CoV-2 (COVID-19) RNA CHLOE+probe Ql (Unsp spec) Negative Only [employer] Other CBC Without Differentialon 0 02-23-2022 Erythrocyte distribution width (RBC) [Ratio] 14.6 % Normal 11.9-15.[address] [facility] Comment on above: Performed By: #### O UTREACH CMP, OUTREACH LIPID, CBCNOOUTREACH #### [address] Hematocrit (Bld) [Volume fraction] 43.4 % Normal 34.0-46.[address] [facility] Comment on above: Performed By: #### O UTREACH CMP, OUTREACH LIPID, CBCNOOUTREACH #### [address] Hemoglobin (Bld) [Mass/Vol] 14.3 g/dL Normal 11.8-15.[address] [facility] Comment on above: Performed By: #### O UTREACH CMP, OUTREACH LIPID, CBCNOOUTREACH #### [facility] [address] [place], [place] [id number] [place] MCH (RBC) [Entitic mass] 29.4 pg Normal 24.7-34.[address] [facility] Comment on above: Performed By: #### O UTREACH CMP, OUTREACH LIPID, CBCNOOUTREACH #### [address] [id number] [place] MCV (RBC) [Entitic vol] 89.2 fL Normal 80-[address] [facility] Comment on above: Performed By: #### O UTREACH CMP, OUTREACH LIPID, CBCNOOUTREACH #### [address] [id number] [place] Mean Corpuscular HGB Conc 33.0 g/dL Normal 32.0-35.[address] [facility] Comment on above: Performed By: #### O UTREACH CMP, OUTREACH LIPID, CBCNOOUTREACH #### [address] Platelet mean volume (Bld) [Entitic vol] 10.2 fL Normal 6.3-10.[address] [facility] Comment on above: Result Comment: PERF ORMED BY: [place] [address] PATHOLOGIST NURSE OFFICE BRAD GARCÍA M.D. Performed By: #### O UTREACH CMP, OUTREACH LIPID, CBCNOOUTREACH #### [address] Platelets (Bld) [#/Vol] 220 10*3/uL Normal 150-[address] [facility] Comment on above: Performed By: #### O UTREACH CMP, OUTREACH LIPID, CBCNOOUTREACH #### [address] RBC (Bld) [#/Vol] 4.86 10*6/uL Normal 3.60-5.00 [facility] Comment on above: Performed By: #### O UTREACH CMP, OUTREACH LIPID, CBCNOOUTREACH #### [address] WBC (Bld) [#/Vol] 3.6 10*3/uL Low 3.8-11.6 [facility] Comment on above: Performed By: #### O UTREACH CMP, OUTREACH LIPID, CBCNOOUTREACH #### [address] CMP Outreachon 02-23-2022 Albumin [Mass/Vol] 4.0 g/dL Normal 3.2-5.5 [facility] Comment on above: Performed By: #### O UTREACH CMP, OUTREACH LIPID, CBCNOOUTREACH #### [address] ALP [Catalytic activity/Vol] 59 U/L Normal 32-[address] [facility] Comment on above: Performed By: #### O UTREACH CMP, OUTREACH LIPID, CBCNOOUTREACH #### [facility] [address] [id number] [place] ALT [Catalytic activity/Vol] 14 U/L Normal 10-[address] [facility] Comment on above: Performed By: #### O UTREACH CMP, OUTREACH LIPID, CBCNOOUTREACH #### [facility] [address] [place] [address] [place] AST [Catalytic activity/Vol] 22 U/L Normal 10-[address] [facility] Comment on above: Performed By: #### O UTREACH CMP, OUTREACH LIPID, CBCNOOUTREACH #### [facility] [address] [place] [address] [place] Bilirubin [Mass/Vol] 1.1 mg/dL Normal 0.3-1.[address] [facility] Comment on above: Performed By: #### O UTREACH CMP, OUTREACH LIPID, CBCNOOUTREACH #### [facility] [address] [place] [address] [place] Calcium [Mass/Vol] 9.7 mg/dL Normal 8.2-10.2 [facility] Comment on above: Performed By: #### O UTREACH CMP, OUTREACH LIPID, CBCNOOUTREACH #### [facility] [address] [place] [address] [place] Chloride [Moles/Vol] 101 mmol/L Normal 95-[address] [facility] Comment on above: Performed By: #### O UTREACH CMP, OUTREACH LIPID, CBCNOOUTREACH #### [facility] [address] [place], [place] [id number] [place] CO2 [Moles/Vol] 28.8 mmol/L Normal 22.0-30.0 [facility] Comment on above: Performed By: #### O UTREACH CMP, OUTREACH LIPID, CBCNOOUTREACH #### [facility] [address] [place] [address] [place] Creatinine [Mass/Vol] 0.75 mg/dL Normal 0.44-1.[address] [facility] Comment on above: Performed By: #### O UTREACH CMP, OUTREACH LIPID, CBCNOOUTREACH #### [facility] [address] Estimated GFR ( Annie > [address] [facility] Comment on above: Result Comment: GFR estimated reference range: According to KDOQI guidelines, <60 ml/min/1.73m2 is sufficient to diagnose a patient with chronic kidney disease. Performed By: #### O UTREACH CMP, OUTREACH LIPID, CBCNOOUTREACH #### [facility] [address] [place] [address] [place] Estimated GFR (Non- Am > [address] [facility] Comment on above: Performed By: #### O UTREACH CMP, OUTREACH LIPID, CBCNOOUTREACH #### [address] Glucose [Mass/Vol] 85 mg/dL Normal 70-100 [facility] Comment on above: Result Comment: [place] Glucose Reference Range is dependent on time and content of last meal. Glucose of more than 200 mg/dL in a nonstressed, ambulatory subject supports the diagnosis of Diabetes Mellitus. ADA recommended reference range Performed By: #### O UTREACH CMP, OUTREACH LIPID, CBCNOOUTREACH #### [place] [address] [place] Potassium [Moles/Vol] 4.4 mmol/L Normal 3.5-5.[address] [facility] Comment on above: Performed By: #### O UTREACH CMP, OUTREACH LIPID, CBCNOOUTREACH #### [address] Protein [Mass/Vol] 6.8 g/dL Normal 6.1-7.9 [facility] Comment on above: Performed By: #### O UTREACH CMP, OUTREACH LIPID, CBCNOOUTREACH #### [address] Sodium [Moles/Vol] 141 mmol/L Normal 136-146 [facility] Comment on above: Performed By: #### O UTREACH CMP, OUTREACH LIPID, CBCNOOUTREACH #### [facility] [address] [id number] [place] Urea nitrogen [Mass/Vol] 13 mg/dL Normal 9-[address] [facility] Comment on above: Performed By: #### O UTREACH CMP, OUTREACH LIPID, CBCNOOUTREACH #### [facility] [address] [id number] [place] Lipid Profile Outreachon Cholesterol [Mass/Vol] 236 mg/dL High 140-[address] [facility] Comment on above: Result Comment: Chol less than 200 mg/dl low risk Chol 201-239 mg/dl borderline risk Chol 240 mg/dl and greater high risk Performed By: #### O UTREACH CMP, OUTREACH LIPID, CBCNOOUTREACH #### [facility] [address] Cholesterol in HDL [Mass/Vol] 93 mg/dL High 35-[address] [facility] Comment on above: Result Comment: HDL CHOL ATP-III CLASSIFICATION Cardiovascular Risk HDL > or equal to 60 mg/dL LOW HDL < 40 mg/dL HIGH Performed By: #### O UTREACH CMP, OUTREACH LIPID, CBCNOOUTREACH #### [facility] [address] [place] [address] [place] Cholesterol.total/C holesterol in HDL [Mass ratio] 2.5 {ratio} Normal <5.[address] [facility] Comment on above: Result Comment: PERF ORMED BY: [place] [address] PATHOLOGIST NURSE OFFICE BRAD GARCÍA M.D. Performed By: #### O UTREACH CMP, OUTREACH LIPID, CBCNOOUTREACH #### [facility] [address] [id number] [place] LDL Cholesterol,Calcula dawit 130 mg/dL High 0-[address] [facility] Comment on above: Result Comment: LDL ATP III CLASSIFICATION LDL less than 100 mg/dL Optimal LDL 100-129 mg/dL Near or above optimal LDL 130-159 mg/dL Borderline high LDL 160-189 mg/dL High LDL greater than 189 mg/dL Very high Performed By: #### O UTREACH CMP, OUTREACH LIPID, CBCNOOUTREACH #### [facility] [address] [id number] [facility] Triglyceride w/Reflex 64 mg/dL Normal 35-[address] [facility] Comment on above: Result Comment: TRIG ATP III CLASSIFICATION TRIG less than 150 mg/dL Normal TRIG 150-199 mg/dL Borderline high TRIG 200-500 mg/dL High TRIG greater than 500 mg/dL Very high Standard traceable to the Center for Disease Conrtrol and Prevention (CDC) test method. Performed By: #### O UTREACH CMP, OUTREACH LIPID, CBCNOOUTREACH #### [facility] [address] VLDL CHOLESTEROL 12 mg/dL Normal [facility] Comment on above: Performed By: #### O UTREACH CMP, OUTREACH LIPID, CBCNOOUTREACH #### [facility] [address] [id number] [facility] Main OR Intraoperative Recor don 07-09-2018 Main OR Intraoperative Record IntraOp Document Type FT Summary Primary Physician: Joel Monroe MD Finalized Date/Time: 07/09/18 12:32:26 Pt. Name: KAREN ZAIDI Jose Manuel ToroB./Sex: 1955 Female Med Rec #: [id number] Physician: Joel Monroe MD Financial #: [id number] Pt. Type: A Room/Bed: [place] [address] Admit/Disch: 05/21/18 07:49:00 - 05/21/18 12:55:00 Institution: [...] Role Performed Anesthesiologist of Surgeon - Primary Camera Mechanic - Primary Record Time In 05/21/18 10:37:00 [...] Pura Gutierrez CST, Giancarlo Villarreal Role Performed Dry End Tester Scrub - Primary Timber Treatment Plant Operator Time In 05/21/18 10:37:00 05/21/18 10:37:00 05/21/18 10:45:00 Time Out 05/21/18 11:04:00 05/21/18 11:04:00 05/21/18 11:04:00 Procedure CYSTOSCOPY CYSTOSCOPY CYSTOSCOPY URETEROSCOPY(Left), URETEROSCOPY(Left), URETEROSCOPY(Left) CYSTOSCOPY STENT CYSTOSCOPY STENT INSERTION(Left) INSERTION(Left) Comments Last Modified By: Lauren CARRILLO, DIANE, Lauren CARRILLO, RN, Lauren CARRILLO, RN, Ileana [...] Cook MD, Joel Gonzalez, Lauren CARRILLO, RN, Rosie Tejeda RN, CNOR, Pura Ann, Brenda MORALES, Marry [...] and tissue Entry 1 Skin Integrity Intact, [place], Warm, and Skin Abnormality No Dry Outcomes [...] Large Press Points Checked Yes By Kian Qurioz JR, DO, Weisenburger BSN, RN, Fer Tejeda [...] caused by extraneous objects Transport To OR Pre-Care Text: Transports according to individual needs. [...] and symptoms of infection Departure From OR Pre-Care Text: Transports according to individual needs. Evaluates for signs and symptoms of skin and tissue injury as a result of transfer or transport. Entry 1 Via Cart Safety Precautions Side Rails Up PostOp Destination PACU Transported By Lauren CARRILLO RN, Kelly Patient Status Stable Skin. Condition Intact, [place], Warm, and Dry Airway Maintenance Oxygen in [...] safely administered during the perioperative period For [facility] please see scanned medication reconcilliation [...] BLANKET MISTRAL AIR Quantity 1 Aid TORSO [[id number]][F] Fluid/[place] Unit Mistral warming system Setting high Body Site Upper anterior torso Last Modified By: Lauren CARRILLO RN, Kelly 05/21/18 10:54:28 Case Comments Finalized By: Lauren CARRILLO RN, Kelly Document Signatures Signed By: Lauren CARRILLO RN, Kelly 05/21/18 11:09 Lauren CARRILLO RN, Kelly 05/21/18 11:09 Kira Carmona CST 05/22/18 09:27 Lauren CARRILLO RN, Kelly 07/09/18 12:32 Normal [facility] Coding Summary.on 05-25-2018 Coding Summary. CODING DATE: 018 FINAL [facility] STATUS: Home (Routine DC) PAYOR: Commercial Insurance [...] PROC APC STAT DESCRIPTION DOCTOR NAME DATE 46263 [id number] J1 Cystourethroscopy, with Joel Monroe MD 05/21/2018 ureteral catheterization, with or without irrigation, instillation, or ureteropyelography, exclusive of radiologic service; [id number] Anesthesia for 05/21/2018 transurethral procedures (including urethrocystoscopy); not otherwise specified NOTE: The code number assigned matches the documented diagnosis and / or procedure in the patient's chart. However, the narrative phrase printed from the coding software may appear abbreviated, or result in slightly different terminology. Revised Coded By: Lanny Lazcano Revised Date Saved: 05/25/2018 02:20 pm Normal [facility] Operative Reporton 8 Operative Report Date of Surgery: 05/21/2018SURGEON: Joel Monroe M.D.PREOPERATIVE DIAGNOSIS: N13.2 left hydronephrosis with left ureteralcalculusPOSTOPERAT ARASH DIAGNOSIS: N13.2 left hydronephrosis with left ureteralcalculusOPERATION: Cystoscopy, left retrograde pyelogramCOMPLICATIONS: NoneANESTHESIA: General by laryngeal mask airwayANESTHESIOLOGIST: Shira Quiroz Jr., D.O.FINDINGS: No evidence of ureteral stone or obstructionINDICATIONS: Mrs. Zaidi is a 62 year old female who presented to [facility] with ongoing severe left-sided inguinal/vaginal pain. [...] isplaced per urethra. A well lubricated 22 Maltese cystourethroscope with 30degree lens is then passed into the bladder. Moderately tight through theurethra upon passage. Once into the bladder panendoscopy reveals no tumors,no stones, no diverticula. The orifices are normal x2. Specifically thereis absolutely no left-sided ureteral inflammation. There is no erythema.There is nothing to suggest recent passage of a stone. A left retrogradepyelogram was then performed utilizing a 6 Maltese open-ended ureteralcatheter. The ureter is completely normal [...] the procedure well, was transferred to [facility] then back to Post-Anesthesia Care Unit [...] six months with Italo.Joel Monroe M.D.lkrDictated: 05/21/2018 #[id number]: 05/22/2018 #[id number]: Steve Tinajero M.D. [facility] Comment on above: Result Comment: Elec tronically Signed By: Joel Monroe MD\.br\Date and Time Signed: 05/22/18 16:45 EDT Inpatient Patient Summaryon 05-21-2018 [facility] InstructionsPERSON INFORMATION Name: KAREN ZAIDI PHYSICIANS Admitting Physician: Joel Monroe MDAttending Physician: Joel Monroe MD PCP: Lewis LUCAS MD Diagnosis: Hydronephrosis with ureteral calculus Comment: PATIENT EDUCATION INFORMATIONInstructions:Me dication Leaflets:Follow up:With: Address: When: [address], [place] [id number] [facility] (0) In 6 months 11/21/2018 Comments: Please have my office arrange for an abdominal X-ray before your visit (looking for stones in the kidneys) MEDICATION LISTComment: [facility] Main OR PACU I Recordon Main OR PACU I Record PACU Phase I Document Type FT Summary Primary Physician: Joel Monroe MD Finalized Date/Time: 05/21/18 12:01:48 Pt. Name: KAREN ZAIDI /Sex: 1955 Female Med Rec #: [id number] Physician: Joel Monroe MD Financial #: [id number] Pt. Type: A Room/Bed: Admit/Disch: 05/21/18 07:49:37 [...] By: Alisa Grider RN 05/21/18 12:01 Normal [facility] Main OR PACU II Recordon Main OR PACU II Record PACU Phase II Document Type FT Summary Primary Physician: Joel Monroe MD Finalized Date/Time: 05/21/18 13:41:43 Pt. Name: KAREN ZAIDI Jose Manuel Martin/Sex: 1955 Female Med Rec #: [id number] Physician: Joel Monroe MD Financial #: [id number] Pt. Type: A Room/Bed: [place] [address] Admit/Disch: 05/21/18 07:49:37 - Institution: Case Times [...] Signed By: Almita Poe RN 05/21/18 13:41 [facility] Main OR Preoperative Recordo n 05-21-2018 Main OR Preoperative Record PreOp Document Type FT Summary Primary Physician: Joel Monroe MD Finalized Date/Time: 05/21/18 10:37:48 Pt. Name: KAREN ZAIDI /Sex: 1955 Female Med Rec #: [id number] Physician: Joel Monroe MD Financial #: [id number] Pt. Type: A Room/Bed: [place] [address] Admit/Disch: 05/21/18 07:49:37 - Institution: Case Times [...] Velez RN, Lou Ann 05/21/18 10:37 Normal [facility] Patient Education - Texton 0 05-21-2018 Patient Education - Text Normal [facility] Progress Note-Physicianon Protein mass conc Patient: SHAYNA ZAIDI Age: 62 years Sex: Female : 1955 Associated Diagnoses: None Author: Kian Quiroz JR, DO Postoperative Information Post Operative Note: Post Anesthesia Care Unit. Anesthetic utilized: General, Monitored anesthesia care. Health Status Allergies: Allergic Reactions (Selected)SevereAmoxicilli n- Rash.Bee Stings- Redness.Clindamycin- Rash.Doxycycline- Stomach upset.Penicillins- Rash. Current medications: (Selected) Inpatient TelclpvwrgyJtgmsljY8VC 1000 mL Soln-IV 1,000 mL: 1,000 mL, IV, 150 mL/hr, Routine, Start date 05/21/18 8:45:00 EDT, 6.7 hour(s), Total volume (mL): 1,000Documented MedicationsDocumentedMacro bid: 100 mg, Oral, BID, Refills(s) 0, Bladder problemsVicodin: 1 tab(s), Oral, q4hr as needed for pain, Refill(s) 0, Painibuprofen 800 mg Tab: 800 mg = 1 tab(s), Oral, TID, PRN as needed for pain, Refills(s) 0, Pain Problem list: All ProblemsKidney stone on left side / SNOMED CT 871400976 / ConfirmedArthritis / SNOMED CT 0883529 / Confirmed Physical Examination Intake and Output [...] 6 . Respiratory: Adequate air exchange with mu-ism of preoperative function.. Cardiovascular: Cardiovascular function is stable and has returned to preoperative levels.. Neurologic: Pt has returned to preoperative baseline.. Review / Management Condition: Stable. Assessment Anesthetic outcome No anesthetic complications noted. Plan Transfer/ Discharge: Patient can be discharged from PACU when criteria met. Condition good. Normal [facility] Comment on above: Result Comment: Elec tronically Signed By: Kian Quiroz JR, DO\.br\Date and Time Signed: 05/21/18 16:05 EDT Protein mass conc Patient: SHAYNA ZAIDI Age: 62 years Sex: Female : 1955 Associated Diagnoses: None Author: Kian Quiroz JR, DO Postoperative Information Post Operative Note: Post Anesthesia Care Unit. Anesthetic utilized: General, Monitored anesthesia care. Health Status Allergies: Allergic Reactions (Selected)SevereAmoxicilli n- Rash.Bee Stings- Redness.Clindamycin- Rash.Doxycycline- Stomach upset.Penicillins- Rash. Current medications: (Selected) Inpatient YpmluayvkblIpxzitcN4DJ 1000 mL Soln-IV 1,000 mL: 1,000 mL, [...] times, Routine, Start date 05/21/18 10:19:00 EDTDocumented MedicationsDocumentedMacro bid: 100 mg, Oral, BID, Refills(s) 0, Bladder problemsVicodin: 1 tab(s), Oral, q4hr as needed for pain, Refill(s) 0, Painibuprofen 800 mg Tab: 800 mg = 1 tab(s), Oral, TID, PRN as needed for pain, Refills(s) 0, Pain Problem list: All ProblemsKidney stone on left side / SNOMED CT 613234922 / ConfirmedArthritis / SNOMED CT 2897332 / Confirmed Physical Examination Intake and Output [...] 6 . Respiratory: Adequate air exchange with mu-ism of preoperative function.. Cardiovascular: Cardiovascular function is stable and has returned to preoperative levels.. Neurologic: Pt has returned to preoperative baseline.. Review / Management Condition: Stable. Assessment Anesthetic outcome No anesthetic complications noted. Plan Transfer/ Discharge: Patient can be discharged from PACU when criteria met. Condition good. Normal [facility] Protein mass conc Patient: SHAYNA ZAIDI Age: 62 years Sex: Female : [...] neurological changes.. Health Status Allergies: Allergic Reactions (Selected)SevereAmoxicilli n- Rash.Bee Stings- Redness.Clindamycin- Rash.Doxycycline- Stomach upset.Penicillins- Rash., Allergies (5) Active Reactionamoxicillin RashBee Stings Rednessclindamycin Rashdoxycycline Stomach upsetpenicillins Rash Current medications: (Selected) Inpatient QoaspnwwqfxCaevudrV0JJ 1000 mL Soln-IV 1,000 mL: 1,000 mL, [...] times, Routine, Start date 05/21/18 10:19:00 EDTDocumented MedicationsDocumentedMacro bid: 100 mg, Oral, BID, Refills(s) 0, Bladder [...] [F] 0.4 mg 0.2 mL, IV Push, e0xbkoxlzwnvsywkc 25 mg/mL Inj [F] 12.5 mg 0.5 mL, IV Push, q2min Problem list: All ProblemsKidney stone on left side / SNOMED CT 168673810 / ConfirmedArthritis / SNOMED CT 2315238 / Confirmed, Active Problems (2)Arthritis Kidney stone on left side Histories Past Medical History: No active or resolved past medical history items have been selected or recorded. Family History: No family history items have been selected or recorded. Procedure history: Cholecystectomy ([id number]).knee arthroscopy for torn meniscus, rt.Tubal ligation ([id number]). Social History Social & Psychosocial TzakcbTkqmxsb79/07/2018 Risk Assessment: Denies Alcohol UseSubstance Abuse05/19/2018 Risk Assessment: Denies Substance LblzuIaxhxci22/07/2018 Risk Assessment: Denies Tobacco Use. Physical Examination [...] Results review: No qualifying data available. Plan [place] [employer]hesi[employer] (ASA) physical status classification: Class II. Anesthetic Preoperative Plan Anesthesia: General. . Anesthetic plan, risks, benefits, and alternatives discussed with the patient and/or family. Pt. and/or family present and agree to proceed as planned.. Discussed the importance of abstaining from tobacco products, and offered counseling if desired. Normal [facility] Comment on above: Result Comment: Elec tronically Signed By: Kian Quiroz JR, DO\.dale\Date and Time Signed: 05/21/18 10:58 EDT XR Abdomen 1 Viewon 05-21-20 18 Protein mass conc Exam Date/Time: 018 08:06 EDTReason for Exam:Kidney stoneReportIMPRESSION: NO ACUTE [...] MD Transcribed by: DORON Technologist: FRANCISCA Normal [facility] XR Urography Retrograde Left on 05-21-2018 XR Urography Retrograde Left Exam Date/Time:05/21/2018 12:42 EDTReason for Exam:stoneReportIMPRESSION : UNREMARKABLE LEFT RETROGRADE PYELOGRAMCLINICAL HISTORY: stoneCOMPARISON: NONE. [...] in mGy = 3.1Fluoro Time: 54 seconds [facility] Coding Summary.on 05-20-2018 Coding Summary. CODING DATE: 018 [facility] STATUS: Home (Routine DC) PAYOR: Commercial Insurance [...] Eng Date Saved: 05/20/2018 01:06 pm Normal [facility] PT & PTTon 05-19-2018 aPTT Coag time (Bld) 30.5 second(s) Normal 25.1-36.5 [facility] Comment on above: Result Comment: Hepa rin therapeutic range (represented by Anti-Factor Xa activity of 0.2 - 0.4 U/mL) corresponds to PTT of 53.9 - 87.4 sec. Performed By: #### 1 [id number] ####[facility] [id number] [place] [address] INR Coag RelTime (PPP) 1.0 {INR} Invalid Interpretation Code [facility] Comment on above: Result Comment: INR results are specifically intended to assess patients stabilized on long-term Anticoagulation therapy suggested INR?s ?Less Intensive Anticoagulation? 2.0 ? 3.0Conventional Range 3.0 ? 4.5 Performed By: #### 1 [id number] ####[facility] [id number] [place] [address] Prothrombin time (PT) Coag time (PPP) 10.9 second(s) Normal 10.2-12.9 [facility] Comment on above: Performed By: #### 1 [id number] ####[address] [id number] [place] [address] XR Chest 2 Viewson 8 XR Chest [...] MD Transcribed by: akbar Technologist: SHARRON Normal [facility] Vital Signs Date Time Vital Sign Value Performing Clinician Facility 06-03-2025 10:59-0400 Body height 170.18 cm Ammon Lucas MD Work Phone: [facility] 06-03-2025 10:59-0400 Body mass index (BMI) [Ratio] 22.5 kg/m2 Ammon Lucas MD Work Phone: [facility] 06-03-2025 10:59-0400 Body weight 65.31 kg Ammon Lucas MD Work Phone: [facility] 06-03-2025 10:59-0400 Diastolic blood pressure 73 mm[Hg] Ammon Lucas MD Work Phone: [facility] 06-03-2025 10:59-0400 Heart rate 63 /min Ammon Lucas MD Work Phone: [facility] 06-03-2025 10:59-0400 Systolic blood pressure 117 mm[Hg] Ammon Lucas MD Work Phone: [facility] 06-02-2025 08:52-0400 Body height 170.2 cm Dania Briana DO Work Phone: [facility] 06-02-2025 08:52-0400 Body mass index (BMI) [Ratio] 21.93 kg/m2 Dania Briana DO Work Phone: [facility] 06-02-2025 08:52-0400 Body weight 63.5 kg Dania Briana DO Work Phone: [facility] 06-02-2025 08:52-0400 Diastolic blood pressure 92 mm[Hg] Dania Briana DO Work Phone: [facility] 06-02-2025 08:52-0400 Heart rate 65 /min Dania Briana DO Work Phone: [facility] 06-02-2025 08:52-0400 SaO2% (BldA) [Mass fraction] 99 % Dania Briana DO Work Phone: [facility] 06-02-2025 08:52-0400 Systolic blood pressure 157 mm[Hg] Daniaibrahima Steven DO Work Phone: [facility] 03-08-2025 15:43-0400 Diastolic blood pressure 66 mm[Hg] Augustina Vargas MD Work Phone: [facility] 03-08-2025 15:43-0400 Systolic blood pressure 120 mm[Hg] Augustina Vargas MD Work Phone: [facility] 02-08-2025 11:22-0400 Body mass index (BMI) [Ratio] 21.79 kg/m2 Gi Siddiqi MD Work Phone: [facility] 02-08-2025 11:22-0400 Body weight 63.1 kg Gi Siddiqi MD Work Phone: [facility] 02-08-2025 11:22-0400 Diastolic blood pressure 83 mm[Hg] Gi Siddiqi MD Work Phone: [facility] 02-08-2025 11:22-0400 Heart rate 65 /min Gi Siddiqi MD Work Phone: [facility] 02-08-2025 11:22-0400 Systolic blood pressure 146 mm[Hg] Gi Siddiqi MD Work Phone: [facility] 12-08-2024 16:04-0500 Body mass index (BMI) [Ratio] 21.61 kg/m2 Augustina Vargas MD Work Phone: [facility] 12-08-2024 16:04-0500 Body weight 62.6 kg Augustina Vargas MD Work Phone: [facility] 12-08-2024 16:04-0500 Diastolic blood pressure 74 mm[Hg] Augustina Vargas MD Work Phone: [facility] 12-08-2024 16:04-0500 Systolic blood pressure 140 mm[Hg] Augustina Vargas MD Work Phone: [facility] 12-06-2024 11:04-0500 Body mass index (BMI) [Ratio] 22.15 kg/m2 Keri Topete PA Work Phone: [facility] 12-06-2024 11:04-0500 Body weight 64.14 kg Keri Ledesmaey PA Work Phone: [facility] 12-06-2024 11:04-0500 Diastolic blood pressure 72 mm[Hg] Keri [place] PA Work Phone: [facility] 12-06-2024 11:04-0500 Systolic blood pressure 130 mm[Hg] Keri Topete PA Work Phone: [facility] 07-26-2024 10:19-0400 Body height 170.2 cm Sarah Godwin MD Work Phone: [facility] 07-26-2024 10:19-0400 Body mass index (BMI) [Ratio] 21.64 kg/m2 Sarah Godwin MD Work Phone: [facility] 07-26-2024 10:19-0400 Body temperature 98.29 [degF] Sarah Godwin MD Work Phone: [facility] [employer] [facility] 07-26-2024 10:19-0400 Body weight 62.69 kg Sarah Godwin MD Work Phone: [facility] 07-06-2024 10:26-0400 Body mass index (BMI) [Ratio] 21.27 kg/m2 Augustina Vargas MD Work Phone: [facility] 07-06-2024 10:26-0400 Body weight 61.6 kg Augustina Vargas MD Work Phone: [facility] 07-06-2024 10:26-0400 Diastolic blood pressure 70 mm[Hg] Augustina Vargas MD Work Phone: [facility] 07-06-2024 10:26-0400 Systolic blood pressure 132 mm[Hg] Augustina Vargas MD Work Phone: [facility] 08-22-2024 08:47-0400 Body height 170.2 cm Dania Briana DO Work Phone: [facility] 06-03-2024 08:47-0400 Body mass index (BMI) [Ratio] 21.77 kg/m2 Dania Briana DO Work Phone: [facility] 06-03-2024 08:47-0400 Body weight 63.05 kg Dania Briana DO Work Phone: [facility] 06-03-2024 08:47-0400 Diastolic blood pressure 57 mm[Hg] Dania Briana DO Work Phone: [facility] 06-03-2024 08:47-0400 Heart rate 66 /min Dania Briana DO Work Phone: [facility] 06-03-2024 08:47-0400 SaO2% (BldA) [Mass fraction] 99 % Dania Briana DO Work Phone: [facility] 06-03-2024 08:47-0400 Systolic blood pressure 117 mm[Hg] Dania Briana DO Work Phone: [facility] 05-27-2024 08:49-0400 Body height 170.2 cm Augustina Vargas MD Work Phone: [facility] 05-27-2024 08:49-0400 Body mass index (BMI) [Ratio] 20.83 kg/m2 Augustina Vargas MD Work Phone: [facility] 05-27-2024 08:49-0400 Body weight 60.33 kg Augustina Vargas MD Work Phone: [facility] 05-27-2024 08:49-0400 Diastolic blood pressure 80 mm[Hg] Augustina Vargas MD Work Phone: [facility] 05-27-2024 08:49-0400 Systolic blood pressure 146 mm[Hg] Augustina Vargas MD Work Phone: [facility] 02-19-2024 12:57-0400 Body height 170.2 cm [facility] 9 Work Phone: [facility] 02-19-2024 12:57-0400 Body mass index (BMI) [Ratio] 20.92 kg/m2 [facility] 9 Work Phone: [facility] 02-19-2024 12:57-0400 Body temperature 97 [degF] [facility] 9 Work Phone: [facility] 02-19-2024 12:57-0400 Body weight 60.6 kg [facility] 9 Work Phone: [facility] 02-19-2024 12:57-0400 Diastolic blood pressure 71 mm[Hg] [facility] 9 Work Phone: [facility] 02-19-2024 12:57-0400 Heart rate 60 /min [facility] 9 Work Phone: [facility] 02-19-2024 12:57-0400 SaO2% (BldA) [Mass fraction] 100 % [facility] 9 Work Phone: [facility] 02-19-2024 12:57-0400 Systolic blood pressure 137 mm[Hg] [facility] 9 Work Phone: [facility] 02-10-2024 09:53-0400 Body height 170.2 cm Sarah Godwin MD Work Phone: [facility] 02-10-2024 09:53-0400 Body mass index (BMI) [Ratio] 20.86 kg/m2 Sarah Godwin MD Work Phone: [facility] 02-10-2024 09:53-0400 Body temperature 98.71 [degF] Sarah Godwin MD Work Phone: [facility] 02-10-2024 09:53-0400 Body weight 60.42 kg Sarah Godwin MD Work Phone: [facility] 12-18-2023 11:37-0500 Body height 168.9 cm Rina oFx MD Work Phone: [facility] 12-18-2023 11:37-0500 Body temperature 98.29 [degF] Rina Fox MD Work Phone: [facility] 12-18-2023 11:37-0500 Body weight 58.42 kg Rina Fox MD Work Phone: [facility] 12-18-2023 11:37-0500 Diastolic blood pressure 87 mm[Hg] Rina Fox MD Work Phone: [facility] 12-18-2023 11:37-0500 Heart rate 64 /min Rina Fox MD Work Phone: [facility] 12-18-2023 11:37-0500 Respiratory rate 14 /min Rina Fox MD Work Phone: [facility] 12-18-2023 11:37-0500 SaO2% (BldA) [Mass fraction] 100 % Rina Fox MD Work Phone: [facility] 12-18-2023 11:37-0500 Systolic blood pressure 131 mm[Hg] Rina Fox MD Work Phone: [facility] 12-02-2023 12:23-0500 Body height 170.2 cm Matthew Iwema PA-C Work Phone: [facility] 12-02-2023 12:23-0500 Body mass index (BMI) [Ratio] 20.45 kg/m2 Matthew Iwema PA-C Work Phone: [facility] 12-02-2023 12:23-0500 Body temperature 98.01 [degF] Matthew Damonema PA-C Work Phone: [facility] 12-02-2023 12:23-0500 Body weight 59.24 kg Matthew Damonema PA-C Work Phone: [facility] 11-12-2023 14:20-0500 Body height 170.2 cm [facility] 11-12-2023 14:20-0500 Body mass index (BMI) [Ratio] 20.92 kg/m2 [facility] 11-12-2023 14:20-0500 Body temperature 98.2 [degF] [facility] 11-12-2023 14:20-0500 Body weight 60.6 kg [facility] 11-12-2023 14:20-0500 Diastolic blood pressure 81 mm[Hg] [facility] 11-12-2023 14:20-0500 Heart rate 67 /min [facility] 11-12-2023 14:20-0500 Respiratory rate 18 /min [facility] 11-12-2023 14:20-0500 SaO2% (BldA) [Mass fraction] 98 % [facility] 11-12-2023 14:20-0500 Systolic blood pressure 127 mm[Hg] [facility] 09-30-2023 15:43-0500 Body height 170.2 cm Sarah Godwin MD Work Phone: [facility] 09-30-2023 15:43-0500 Body mass index (BMI) [Ratio] 20.05 kg/m2 Sarah Godwin MD Work Phone: [facility] 09-30-2023 15:43-0500 Body temperature 98.71 [degF] Sarah Godwin MD Work Phone: [facility] 09-30-2023 15:43-0500 Body weight 58.06 kg Sarah Godwin MD Work Phone: [facility] 09-01-2023 10:45-0500 Body height 167.64 cm Amomn Lucas Other [employer] Other 09-01-2023 10:45-0500 Body mass index (BMI) [Ratio] 19.69 kg/m2 Ammon Lucas Other [employer] Other 09-01-2023 10:45-0500 Body weight 55.34 kg Ammon Lucas Other [facility] Other 09-01-2023 10:45-0500 Diastolic blood pressure 76 mm[Hg] Ammon Lucas Other [facility] Other 09-01-2023 10:45-0500 Systolic blood pressure 138 mm[Hg] Ammon Lucas Other [facility] Other 07-29-2023 10:00-0400 Body height 167.64 cm Ammon Lucas Other [facility] Other 07-29-2023 10:00-0400 Body mass index (BMI) [Ratio] 19.72 kg/m2 Ammon Lucas Other [facility] Other 07-29-2023 10:00-0400 Body weight 55.43 kg Ammon Lucas Other [facility] Other 07-29-2023 10:00-0400 Diastolic blood pressure 76 mm[Hg] Ammon Lucas Other [facility] Other 07-29-2023 10:00-0400 Systolic blood pressure 123 mm[Hg] Ammon Lucas Other [facility] Other 07-02-2023 10:00-0400 Body height 167.64 cm Ammon Lucas Other [facility] Other 07-02-2023 10:00-0400 Body mass index (BMI) [Ratio] 20.01 kg/m2 Ammon Lucas Other [facility] Other 07-02-2023 10:00-0400 Body weight 56.25 kg Ammon Lucas Other [facility] Other 07-02-2023 10:00-0400 Diastolic blood pressure 88 mm[Hg] Ammon Lucas Other [facility] Other 07-02-2023 10:00-0400 Systolic blood pressure 145 mm[Hg] Ammon Lucas Other [facility] Other 06-06-2023 13:45-0400 Body height 167.64 cm Ammon Lucas Other [facility] Other 06-06-2023 13:45-0400 Body mass index (BMI) [Ratio] 20.66 kg/m2 Ammon Lucas Other [facility] Other 06-06-2023 13:45-0400 Body weight 58.06 kg Ammon Lucas Other [facility] Other 06-06-2023 13:45-0400 Diastolic blood pressure 70 mm[Hg] Ammon Lucas Other [facility] Other 06-06-2023 13:45-0400 SaO2% (BldA) [Mass fraction] 99 % Ammon Lucas Other [facility] Other 06-06-2023 13:45-0400 Systolic blood pressure 112 mm[Hg] Ammon Lucas Other [facility] Other 05-29-2023 09:50-0400 Body height 167.64 cm Ayaka Joyner Other [facility] Other 05-29-2023 09:50-0400 Body mass index (BMI) [Ratio] 20.43 kg/m2 Ayaka Joyner Other [facility] Other 05-29-2023 09:50-0400 Body temperature 98.3 [degF] Ayaka Joyner Other [facility] Other 05-29-2023 09:50-0400 Body weight 57.43 kg Ayaka Joyner Other [facility] Other 05-29-2023 09:50-0400 Diastolic blood pressure 88 mm[Hg] Ayaka Joyner Other [facility] Other 05-29-2023 09:50-0400 Respiratory rate 18 /min Ayaka Joyner Other [facility] Other 05-29-2023 09:50-0400 SaO2% (BldA) [Mass fraction] 96 % Ayaka Joyner Other [facility] Other 05-29-2023 09:50-0400 Systolic blood pressure 144 mm[Hg] Ayaka Joyner Other [facility] Other 02-11-2023 14:45-0400 Body height 167.64 cm Ammon Lucas Other [facility] Other 02-11-2023 14:45-0400 Body mass index (BMI) [Ratio] 22.76 kg/m2 Ammon Lucas Other [facility] Other 02-11-2023 14:45-0400 Body temperature 97.8 [degF] Ammon Lucas Other [facility] Other 02-11-2023 14:45-0400 Body weight 63.96 kg Ammon Lucas Other [facility] Other 02-11-2023 14:45-0400 Diastolic blood pressure 80 mm[Hg] Ammon Lucas Other [facility] Other 02-11-2023 14:45-0400 SaO2% (BldA) [Mass fraction] 93 % Ammon Lucas Other [facility] Other 02-11-2023 14:45-0400 Systolic blood pressure 148 mm[Hg] Ammon Lucas Other [facility] Other 02-11-2023 11:15-0400 Body height 168.91 cm Ayaka Joyner Other [facility] Other 02-11-2023 11:15-0400 Body mass index (BMI) [Ratio] 21.94 kg/m2 Ayaka Joyner Other [facility] Other 02-11-2023 11:15-0400 Body temperature 98.7 [degF] Ayaka Joyner Other [facility] Other 02-11-2023 11:15-0400 Body weight 62.6 kg Ayaka Joyner Other [facility] Other 02-11-2023 11:15-0400 Diastolic blood pressure 83 mm[Hg] Ayaka Joyner Other [facility] Other 02-11-2023 11:15-0400 Respiratory rate 18 /min Ayaka Joyner Other [facility] Other 02-11-2023 11:15-0400 SaO2% (BldA) [Mass fraction] 99 % Ayaka Joyner Other [facility] Other 02-11-2023 11:15-0400 Systolic blood pressure 152 mm[Hg] Ayaka Joyner Other [facility] Other 11-22-2022 13:35-0500 Body height 168.91 cm Ayaka Joyner Other [facility] Other 11-22-2022 13:35-0500 Body mass index (BMI) [Ratio] 22.1 kg/m2 Ayaka Joyner Other [facility] Other 11-22-2022 13:35-0500 Body temperature 98 [degF] Ayaka Joyner Other [facility] Other 11-22-2022 13:35-0500 Body weight 63.05 kg Ayaka Joyner Other [facility] Other 11-22-2022 13:35-0500 Respiratory rate 18 /min Ayaka Joyner Other [facility] Other 11-22-2022 13:35-0500 SaO2% (BldA) [Mass fraction] 98 % Ayaka Joyner Other [facility] Other 10-31-2022 15:30-0500 Body height 168.91 cm Ammon Lucas Other [facility] Other 10-31-2022 15:30-0500 Body mass index (BMI) [Ratio] 22.57 kg/m2 Ammon Lucas Other [facility] Other 10-31-2022 15:30-0500 Body weight 64.41 kg Ammon Lucas Other [facility] Other 10-31-2022 15:30-0500 Diastolic blood pressure 72 mm[Hg] Ammon Lucas Other [facility] Other 10-31-2022 15:30-0500 SaO2% (BldA) [Mass fraction] 97 % Ammon Lucas Other [facility] Other 10-31-2022 15:30-0500 Systolic blood pressure 128 mm[Hg] Ammon Lucas Other [facility] Other 07-28-2022 12:55-0400 Body height 170.18 cm Ayaka Joyner Other [facility] Other 07-28-2022 12:55-0400 Body mass index (BMI) [Ratio] 22.65 kg/m2 Ayaka Joyner Other [facility] Other 07-28-2022 12:55-0400 Body temperature 98.5 [degF] Ayaka Joyner Other [facility] Other 07-28-2022 12:55-0400 Body weight 65.59 kg Ayaka Joyner Other [facility] Other 07-28-2022 12:55-0400 Respiratory rate 18 /min Ayaka Joyner Other [facility] Other 07-28-2022 12:55-0400 SaO2% (BldA) [Mass fraction] 99 % Ayaka Joyner Other [facility] Other 09-14-2021 19:10-0500 Body height 170.18 cm Manuela Aly Other [facility] Other 09-14-2021 19:10-0500 Body mass index (BMI) [Ratio] 21.92 kg/m2 Manuela Aly Other [facility] Other 09-14-2021 19:10-0500 Body temperature 97.7 [degF] Manuela Sheeba Other [facility] Other 09-14-2021 19:10-0500 Body weight 63.5 kg Manuela Sheeba Other [facility] Other 09-14-2021 19:10-0500 Respiratory rate 18 /min Manuela Sheeba Other [facility] Other 09-14-2021 19:10-0500 SaO2% (BldA) [Mass fraction] 99 % Manuela Sheeba Other [facility] Other 07-29-2021 12:25-0400 Body height 170.18 cm Manuela Sheeba Other [facility] Other 07-29-2021 12:25-0400 Body mass index (BMI) [Ratio] 21.92 kg/m2 Manuela Sheeba Other [facility] Other 07-29-2021 12:25-0400 Body temperature 97.8 [degF] Manuela Sheeba Other [facility] Other 07-29-2021 12:25-0400 Body weight 63.5 kg Manuela Sheeba Other [facility] Other 07-29-2021 12:25-0400 Diastolic blood pressure 80 mm[Hg] Manuela Sheeba Other [facility] Other 07-29-2021 12:25-0400 Respiratory rate 18 /min Manuela Sheeba Other [facility] Other 07-29-2021 12:25-0400 SaO2% (BldA) [Mass fraction] 99 % Manuela Aly Other [facility] Other 07-29-2021 12:25-0400 Systolic blood pressure 145 mm[Hg] Manuela Aly Other [facility] Other Encounters Encounter Date Encounter Type Care Provider Facility Start: 06-03-2025 End: 06-03-2025 ambulatory Ammon Lucas MD Work Phone: [facility] Work Phone: Start: 06-03-2025 End: 06-03-2025 Patient encounter procedure Ammon Lucas MD -[facility] Work Phone: Start: 06-02-2025 End: 06-02-2025 Bamboo flowsheet Dania Steven DO Work Phone: [facility] Start: 06-02-2025 End: 06-02-2025 Bamboo flowsheet Dania Steven DO Work Phone: [facility] Start: 06-02-2025 End: 06-02-2025 ambulatory DANIA STEVEN Not Available Start: 06-02-2025 End: 06-02-2025 Office outpatient visit 15 minutes Dania Steven DO Work Phone: [facility] Comment on above: Pulmonary nodule (Pr imary Dx) Start: 05-04-2025 End: 05-04-2025 Patient encounter procedure Orquidea Saavedra MD Work Phone: Orthopaedics Comment on above: Primary osteoarthrit is of right knee (Primary Dx) Start: 05-04-2025 Non-patient / [facility]visit [facility] Work Phone: Start: 05-04-2025 End: 05-04-2025 ambulatory YUERONG MICHELLE Facility:[facility] [place] Start: 04-25-2025 End: 04-25-2025 ambulatory DANIA Jose Manuel [facility] Start: 03-31-2025 End: 03-31-2025 ambulatory AUGUSTINA Kaye [facility] Start: 03-31-2025 End: 03-31-2025 Subsequent hospital visit by physician Angelina Lantigua PTA [facility] Physical Therapy Comment on above: Arrived Start: 03-28-2025 End: 03-28-2025 ambulatory AUGUSTINA Kaye [facility] Start: 03-28-2025 End: 03-28-2025 Subsequent hospital visit by physician Cedrick Perera [facility] Physical Therapy Comment on above: Arrived Start: 03-21-2025 End: 03-21-2025 ambulatory AUGUSTINA Kaye [facility] Start: 03-21-2025 End: 03-21-2025 [facility] Comment on above: Arrived Start: 03-16-2025 End: 03-16-2025 ambulatory AUGUSTINA Kaye [facility] Start: 03-16-2025 End: 03-16-2025 Subsequent hospital visit by physician Cedrick Perera [facility] Physical Therapy Comment on above: Arrived Start: 03-14-2025 End: 03-14-2025 ambulatory AUGUSTINA Kaye [facility] Start: 03-14-2025 End: 03-14-2025 Subsequent hospital visit by physician Cedrick Perera [facility] Physical Therapy Comment on above: Arrived Start: 03-11-2025 End: 03-11-2025 ambulatory AUGUSTINA Kaye [facility] Start: 03-11-2025 End: 03-11-2025 Subsequent hospital visit by physician Giovanna Wu PTA [facility] Physical Therapy Comment on above: Arrived Start: 03-09-2025 End: 03-09-2025 ambulatory AUGUSTINA Kaye [facility] Start: 03-09-2025 End: 03-09-2025 Subsequent hospital visit by physician Giovanna Wu PTA [facility] Physical Therapy Comment on above: Arrived Start: 03-08-2025 End: 03-08-2025 Patient encounter procedure Augustina Vargas MD Work Phone: Gynecology Comment on above: High-tone pelvic stevan or dysfunction (Primary Dx); Trigger point of abdomen; Myalgia, other site Start: 03-08-2025 End: 03-08-2025 ambulatory AUGUSTINASTAS CHAMBERLAINVANESA Facility:[facility] [place] Start: 03-02-2025 End: 03-02-2025 ambulatory AUGUSTINA VARGAS [facility] Start: 03-02-2025 End: 03-02-2025 Subsequent hospital visit by physician Garrison العراقي PTA [facility] Physical Therapy Comment on above: Arrived Start: 03-01-2025 End: 03-01-2025 ambulatory AUGUSTINA Garveyy [facility] Start: 03-01-2025 End: 03-01-2025 Subsequent hospital visit by physician Garrison العراقي PTA [facility] Physical Therapy Comment on above: Arrived Start: 02-25-2025 End: 02-25-2025 ambulatory AUGUSTINA VARGAS [facility] Start: 02-25-2025 End: 02-25-2025 Subsequent hospital visit by physician Trudy Garner PTA [facility] Physical Therapy Comment on above: Arrived Start: 02-21-2025 End: 02-21-2025 ambulatory AUGUSTINA VARGAS [facility] Start: 02-21-2025 End: 02-21-2025 Subsequent hospital visit by physician 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 PTA [facility] Physical Therapy Comment on above: Arrived Start: 02-17-2025 End: 02-17-2025 ambulatory AUGUSTINA VARGAS [facility] Start: 02-17-2025 End: 02-17-2025 Subsequent hospital visit by physician Al Singh PT [facility] Physical Therapy Comment on above: Arrived Start: 02-14-2025 End: 03-24-2025 Telephone encounter Sachi Martinez APRN.CNP Work Phone: Rheumatology Start: 02-10-2025 End: 02-11-2025 Telephone encounter Augustina Vargas MD Work Phone: Gynecology Comment on above: Insurance Authorizat ion Start: 02-08-2025 End: 02-08-2025 Office outpatient visit 40 minutes Gi Siddiqi MD Work Phone: Rheumatology Comment on above: Osteoporosis, post-m enopausal (Primary Dx); Coronary artery disease involving nondalton coronary artery of nondalton heart without angina pectoris; Family history of cardiovascular disease; History of fracture of pelvis; Family history of osteoporosis in mother; Early menopause occurring in patient age younger than 45 years; Vitamin D deficiency; Encounter to discuss test results; Encounter for medication review and counseling; Counseling on health promotion and disease prevention Start: 02-08-2025 End: 02-08-2025 ambulatory GI SIDDIQI Facility:[facility] [place] Start: 02-07-2025 End: 02-07-2025 [facility] Start: 02-07-2025 End: 02-07-2025 Subsequent hospital visit by physician Rosemary [facility] Physical Therapy Comment on above: Arrived Start: 02-07-2025 End: 02-07-2025 ambulatory GI SIDDIIQ Facility:[facility] [place] Start: 02-02-2025 End: 02-02-2025 Patient encounter procedure Roxy Medina RT(R) Radiology Comment on above: Primary osteoarthrit is of right knee; Derangement of unsp meniscus due to old tear/inj, right knee Start: 02-02-2025 End: 02-02-2025 ambulatory oRxy Medina RT(R) Radiology Comment on above: Radio Gen RMP Start: 01-31-2025 End: 01-31-2025 ambulatory [facility]UGUSTINA Von [facility] Start: 01-31-2025 End: 01-31-2025 Subsequent hospital visit by physician Rosemary [facility] Physical Therapy Comment on above: Arrived Start: 01-24-2025 End: 01-24-2025 ambulatory AUGUSTINA VARGAS [facility] Start: 01-24-2025 End: 01-24-2025 Subsequent hospital visit by physician Rosemary [facility] Physical Therapy Comment on above: Arrived Start: 01-17-2025 End: 01-17-2025 ambulatory [facility] Start: 01-17-2025 End: 01-17-2025 Subsequent hospital visit by physician Rosemary [facility] Physical Therapy Comment on above: Arrived Start: 01-12-2025 End: 01-12-2025 ambulatory [facility] Start: 01-12-2025 End: 01-12-2025 Subsequent hospital visit by physician Rosemary [facility] Physical Therapy Comment on above: Arrived Start: 01-03-2025 End: 01-03-2025 ambulatory [facility] Start: 01-03-2025 End: 01-03-2025 Subsequent hospital visit by physician Rosemary [facility] Physical Therapy Comment on above: Arrived Start: 12-20-2024 End: 12-20-2024 ambulatory [facility] Start: 12-20-2024 End: 12-20-2024 Subsequent hospital visit by physician Rosemary [facility] Physical Therapy Comment on above: Arrived Start: 12-13-2024 End: 12-13-2024 ambulatory [facility] Start: 12-13-2024 End: 12-13-2024 Subsequent hospital visit by physician Rosemary [facility] Physical Therapy Comment on above: Arrived Start: 12-08-2024 End: 12-08-2024 ambulatory AUGUSTINA ALICIA Facility:[facility] [place] Start: 12-08-2024 End: 12-08-2024 Patient encounter procedure Augustina Vargas MD Work Phone: Gynecology Comment on above: High-tone pelvic stevan or dysfunction (Primary Dx); Trigger point of abdomen; Myalgia, other site; Other osteoporosis without current pathological fracture Start: 12-06-2024 End: 12-06-2024 Bamboo flowsheet Keri LIN Work Phone: [facility] Start: 12-06-2024 End: 12-09-2024 Bamboo flowsheet Keri LIN Work Phone: [facility] Start: 12-06-2024 End: 12-09-2024 Clinisync Result Encounter Keri LIN Work Phone: [facility] Unsolicited Start: 12-06-2024 End: 12-06-2024 amb[facility] Start: 12-06-2024 End: 12-06-2024 Subsequent hospital visit 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 Comment on above: Arrived Start: 12-06-2024 End: 12-06-2024 Patient encounter procedure Keri LIN Work Phone: [facility] Work Phone: Start: 12-06-2024 End: 12-06-2024 Periodic preventive med est patient 65yrs& older Keri LIN Work Phone: [facility] Comment on above: Well woman exam with routine gynecological exam; Breast cancer screening by mammogram; Postmenopausal state Start: 12-06-2024 End: 12-06-2024 ambulatory KERI TOPETE Not Available Start: 11-29-2024 End: 11-29-2024 ambulatory AUGUSTINA [facility] Start: 11-29-2024 End: 11-29-2024 Subsequent hospital visit by physician Rosemary CH[facility]RIA Physical Therapy Comment on above: Arrived Start: 11-22-2024 End: 11-22-2024 ambulatory AUGUSTINA [facility] Start: 11-22-2024 End: 11-22-2024 Subsequent hospital visit by 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 Comment on above: Arrived Start: 11-17-2024 End: 11-17-2024 E-mail encounter from caregiver Jagruti Salazar PA-C Work Phone: [facility] Start: 11-17-2024 End: 11-17-2024 Follow-up encounter Jagruti Salazar PA-C Work Phone: [facility] Comment on above: actionable finding f ollow up Start: 11-16-2024 End: 11-16-2024 ambulatory AUGUSTINA Von VARGAS [facility] Start: 11-16-2024 End: 11-16-2024 Subsequent hospital visit by physician Yelena Steve PT [facility] Physical Therapy Comment on above: Arrived Start: 11-01-2024 End: 11-01-2024 Telephone encounter Augustina Vargas MD Work Phone: [facility] Comment on above: Orders (PFPT) Start: 09-22-[address] [facility] Start: 09-21-2024 End: 09-21-2024 Telephone encounter Augustina Vargas MD Work Phone: [facility] Comment on above: Other; Patient Updat e Start: 09-15-2024 ambulatory [facility] Start: 09-01-2024 End: 09-01-2024 [facility] Start: 09-01-2024 End: 09-01-2024 Subsequent hospital visit by physician 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 Comment on above: Arrived Start: 08-23-2024 End: 08-23-2024 Telephone encounter Augustina Vargas MD Work Phone: [facility] Comment on above: Medication Problem Start: 08-23-2024 End: 08-23-2024 [facility] Start: 08-23-2024 End: 08-23-2024 Subsequent hospital visit by physician 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 Comment on above: Arrived Start: [...] 07-26-2024 End: 07-26-2024 ambulatory SARAH GODWIN [facility] Start: 07-12-2024 End: 07-12-2024 ambulatory [facility]UGUSTINA Kaye [facility] Start: 07-07-2024 End: 07-07-2024 ambulatory [facility] Start: 07-06-2024 End: 07-06-2024 ambulatory AUGUSTINA VARGAS Facility:[facility] [place] Start: 07-06-2024 End: 07-06-2024 Patient encounter procedure Augustina Vargas MD Work Phone: Gynecology Comment on above: High-tone pelvic stevan or dysfunction (Primary Dx); Nutcracker phenomenon of renal vein; Vaginal dryness; Pelvic congestion; Acute constipation; Postmenopausal atrophic vaginitis; Urethral caruncle; Myalgia Start: 07-02-2024 End: 07-02-[address] [facility] Comment on above: Med Refill Start: 06-28-2024 End: 06-28-2024 ambulatory [facility]USTINA Kaye [facility] Start: 06-21-2024 End: 06-21-2024 ambulatory AUGUSTINA Kaye [facility] Start: 06-21-2024 End: 06-21-2024 Subsequent hospital visit by physician 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 [employer] [facility] Comment on above: Arrived Start: 06-15-2024 End: 06-15-2024 ambulatory AUGUSTINA Kaye [facility] Start: 06-15-2024 End: 06-15-2024 Subsequent hospital visit by physician [facility] Comment on above: Arrived Start: 06-06-2024 End: 06-07-2024 Telephone encounter Augustina Vargas MD Work Phone: Gynecology Comment on above: botox auth Start: 06-04-2024 End: 06-07-2024 Telephone encounter Augustina Vargas MD Work Phone: [facility] Comment on above: Patient Question Start: 06-03-2024 End: 06-03-2024 Bamboo flowsheet Dania Steven DO Work Phone: [facility] Start: 06-03-2024 End: 06-03-2024 Bamboo flowsheet Dania K Briana DO Work Phone: [facility] Start: 06-03-2024 End: 06-03-2024 Office outpatient visit 25 minutes Dania Steven DO Work Phone: [facility] Comment on above: Pulmonary nodule (Pr imary Dx) Start: 05-28-2024 End: 08-18-2024 Telephone encounter Augustina Vargas MD Work Phone: Gynecology Comment on above: Medication Problem Start: 05-27-2024 End: 05-31-2024 ambulatory Viet Carr MD Work Phone: Urology Start: 05-27-2024 End: 05-27-2024 Patient encounter procedure Viet Carr MD Work Phone: Urology Comment on above: Flank pain (Primary Dx) High-tone pelvic stevan or dysfunction (Primary Dx); Nutcracker phenomenon of renal vein; Chronic pelvic pain in female Start: 05-10-2024 End: 05-10-2024 ambulatory DANIA STEVEN [facility] Start: 04-26-2024 ambulatory AMMON LUCAS Facility :[facility] Start: 04-26-2024 End: 04-26-2024 Subsequent hospital visit by physician [facility] Radiology Comment on above: 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] Start: 04-21-2024 Telephone encounter Destiny tony MD Work Phone: Urology Start: 04-12-2024 Patient Msg [facility] Provider Mary Ann colin Comment on above: Appointment for Pelv ic Pain, pelvic floor disorder Start: 04-07-2024 End: 04-07-2024 Patient encounter procedure Viet Carr MD Work Phone: Urology Comment on above: Encounter for afterc are following kidney transplant (Primary Dx); Malnutrition of moderate degree (HCC) Start: 02-19-2024 End: 02-19-2024 Patient encounter procedure Viet Carr MD Work Phone: Urology Comment on above: 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) Start: 02-19-2024 ambulatory Viet ramos MD Work Phone: Urology Start: 02-19-2024 End: 02-19-2024 Admission to establishment [facility] Work Phone: Pre Anesthesia Start: 02-19-2024 End: 02-19-2024 Anesthesia consultation [facility] Work Phone: Pre Anesthesia Comment on above: Preop examination (P rimary Dx); 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); Sioux's syndrome; Other hyperlipidemia; Ovarian varices; Nutcracker phenomenon of renal vein; Narcotic drug use Start: 02-19-2024 End: 02-19-2024 Preprocedural examination done [place] [address] Work Phone: [facility] Work Phone: Start: 02-17-2024 ambulatory AMOMN LUCAS [facility] Start: 02-10-2024 End: 02-10-2024 Patient encounter procedure Sarah Godwin MD Work Phone: [facility] Comment on above: Chronic sialoadeniti s (Primary Dx) Start: 02-10-2024 End: 02-10-2024 ambulatory SARAH GODWIN [facility] Start: 01-13-2024 Telephone encounter Rina eagle MD Work Phone: Vascular Surg Dept Comment on above: Surgery Cancelled Start: 01-01-2024 Telephone encounter Rina eagle MD Work Phone: Vascular Surg Dept Comment on above: Patient Update Start: 12-30-2023 ambulatory Viet ramos MD Work Phone: Urology Start: 12-25-2023 End: 12-25-2023 Patient encounter procedure Viet Carr MD Work Phone: Urology Comment on above: 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) Start: 12-25-2023 ambulatory Viet ramos MD Work Phone: Urology Start: 12-22-2023 End: 12-22-2023 Patient encounter procedure Radu Deleon MD Work Phone: Urology Comment on above: Nutcracker phenomeno n of renal vein Start: 12-22-2023 ambulatory Radu Deleon MD Work Phone: Urology Start: 12-19-2023 Orders Only Rina Fox MD Work Phone: Vascular Surg Dept Comment on above: 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); Preop testing Start: 12-19-2023 Patient encounter status Lisa Fox MD Work Phone: [facility] Start: 12-18-2023 End: 12-18-2023 Office outpatient new [...] Dx) Start: 12-11-2023 Telephone encounter No Pcp [employer] Vas cular Surg Dept Comment on above: Patient Question Start: 12-02-2023 End: 12-02-2023 Patient encounter procedure Matthew Ramirez PA-C Work Phone: [facility] Comment on above: Submandibular gland swelling (Primary Dx); Chronic sialoadenitis Start: 12-02-2023 End: 12-02-2023 ambulatory MATTHEW RAMIREZ [facility] Start: 11-24-2023 End: 11-24-2023 Evaluation and management of inpatient YEN [facility] Start: 11-24-2023 End: 11-24-2023 Evaluation and management of inpatient SARAH GODWIN [facility] Start: 11-20-2023 Telephone encounter Sarah Godwin MD Work Phone: [facility] Start: 11-12-2023 End: 11-12-2023 ambulatory SARAH GODWIN [facility] Start: 11-12-2023 Encounter for other preprocedural examination SARAH GODWIN [facility] Start: 11-12-2023 End: 11-12-2023 Patient encounter procedure Joanne [facility] Provider [address] [facility] Comment on above: Preop testing (Prima ry Dx); Hearing disorder retrocochlear Start: 11-12-2023 End: 11-12-2023 Patient encounter status [facility] [employer] Start: 10-08-2023 End: 10-08-2023 ambulatory Ammon Lucas Other [employer] Other Start: 10-08-2023 Telephone encounter Ammon Lucas [facility] Start: 09-30-2023 End: 09-30-2023 Patient encounter procedure Sarah Godwin MD Work Phone: [facility] Comment on above: Submandibular gland swelling (Primary Dx); Chronic sialoadenitis; Sensorineural hearing loss (SNHL), bilateral Start: 09-30-2023 End: 09-30-2023 ambulatory SARAH GODWIN [facility] Start: 09-01-2023 End: 09-01-2023 ambulatory Ammon Lucas Other [employer] Other Start: 09-01-2023 Office outpatient vi sit 15 minutes Ammon Lucas [facility] Start: 08-22-2023 Telephone encounter No Pcp [employer] [facility] Comment on above: Appointment Start: 07-29-2023 End: 07-29-2023 ambulatory Ammon Lucas Other [employer] Other Start: 07-29-2023 Office outpatient vi sit 15 minutes Ammon Lucas [facility] Start: 07-02-2023 End: 07-02-2023 ambulatory Ammon Lucas Other [employer] Other Start: 07-02-2023 Office outpatient vi sit 15 minutes Ammon Lucas [facility] Start: 06-10-2023 End: 06-10-2023 ambulatory Ammon Lucas Other [employer] Other Start: 06-10-2023 Telephone encounter Ammon Lucas [facility] Start: 06-06-2023 End: 06-06-2023 ambulatory Ammon Lucas Other [employer] Other Start: 06-06-2023 Office outpatient vi sit 15 minutes Ammon Lucas [facility] Start: 06-05-2023 End: 06-05-2023 ambulatory Ammon Dylon Other [employer] Other Start: 06-05-2023 Telephone encounter Ammon Dylon [facility] Start: 05-30-2023 End: 05-30-2023 ambulatory Ammon Dylon Other [employer] Other Start: 05-30-2023 Telephone encounter Ammon Lucas [facility] Start: 05-29-2023 End: 05-29-2023 ambulatory Ayaka Joyner Other [employer] Other Start: 05-29-2023 Office outpatient vi sit 25 minutes Ayaka Ar [facility] Start: 05-09-2023 End: 05-09-2023 ambulatory Ammon Dylon Other [employer] Other Start: 05-09-2023 Telephone encounter Ammon Dylon [facility] Start: 02-22-2023 End: 02-22-2023 ambulatory NAVEEN KAHN Facility:[facility] Start: 02-18-2023 End: 02-18-[address] BOSSMAN CEVALLOS . Facility:[facility] Start: 02-11-2023 End: 02-11-2023 ambulatory Ayaka Joyner Other [employer] Other Start: 02-11-2023 Office outpatient vi sit 15 minutes Ayaka Ar [facility] Start: 02-11-2023 Telephone encounter Ammon Lucas [facility] Start: 11-25-2022 End: 11-25-[address] BOSSMAN CEVALLOS . Facility:[facility] Start: 11-22-2022 End: 11-22-2022 ambulatory Ayaka Joyner Other [employer] Other Start: 11-22-2022 Office outpatient vi sit 25 minutes Ayaka Joyner [facility] Start: 11-02-2022 End: 11-02-2022 ambulatory Ammon Lucas Other [employer] Other Start: 11-02-2022 Telephone encounter Ammon Lucas [facility] Start: 11-01-2022 End: 11-02-[address] NONE LISTED REQUEST Facility: Start: 10-31-2022 End: 10-31-2022 ambulatory Ammon Lucas Other [employer] Other Start: 10-31-2022 Office outpatient vi sit 15 minutes Ammon Lucas [facility] Start: 08-14-2022 Gynecological examin ation normal Ammon Dylon Other [employer] Other Start: 08-14-2022 Pre-procedure evalua tion check Ammon Dylon Other [employer] Other Start: 08-13-2022 End: 08-14-2022 ambulatory Boogie Mina Facility: Start: 07-28-2022 End: 07-28-2022 ambulatory Ayaka Joyner Other [employer] Other Start: 07-28-2022 Office outpatient vi sit 25 minutes Ayaka Joyner [facility] Start: 09-14-2021 End: 09-14-2021 ambulatory Manuela Aly Other [employer] Other Start: 09-14-2021 Office outpatient vi sit 15 minutes Manuela Sheeba [facility] Start: 07-29-2021 Office outpatient vi sit 15 minutes Manuela Sheeba [facility] Start: 05-21-2018 End: 05-21-2018 Patient encounter Joel Monroe Facility:[facility] Start: 05-19-2018 End: 05-20-2018 Patient encounter Joel Monroe Facility:[facility] Procedures Date Procedure Procedure Detail Performing Clinician Start: 02-02-2025 Arthrocentesis aspir&/inj major jt/bursa w/o us Orquidea Saavedra MD Work Phone: Start: 12-06-2024 IGP,APTIMA HPV,AGE GDLN Keri LIN Work Phone: Start: 09-30-2024 Mammography Keri LIN Work Phone: Start: 07-26-2024 Follow-up visit Follow-up SARAH GODWIN Start: 05-27-2024 Urnls dip stick/tablet rgnt auto w/o microscopy Bulk Order Provider Start: 04-26-2024 Creatinine [Mass/volume] in Serum or Plasma [facility] Provider Start: 03-02-2024 End: 06-02-2024 History of renal transplant S/P renal autotransplant Viet Carr MD Work Phone: Start: 02-19-2024 Urnls dip stick/tablet rgnt auto w/o microscopy Bulk Order Provider Start: 12-25-2023 Urnls dip stick/tablet rgnt auto w/o microscopy Bulk Order Provider Start: 12-22-2023 Urnls dip stick/tablet rgnt auto w/o microscopy Bulk Order Provider Start: 11-12-2023 Creatinine blood Sarah Godwin MD Work Phone: Start: 11-12-2023 Ecg routine ecg w/least 12 lds trcg only w/o i&r Ibis Rodriguez MD Work Phone: Start: 09-29-2023 Mammography Dania Steven DO Work Phone: Start: 08-10-2018 General examination of patient Ammon Lucas Other Start: 07-23-2018 Colonoscopy Sarah Godwin MD Work Phone: History of renal transplant Encounter for aftercare following kidney transplant Viet Carr MD Work Phone: History of renal transplant S/P renal autotransplant Ammon Lucas MD Work Phone: Screening for malign ant neoplasm of breast Ammon Lucas Other Viral screening Ammon Lucas Other Plan of Treatment Date Care Activity Detail Author Start: 2032 Respiratory Syncytial Virus (RSV) or age 60 yrs+ (1 - 1-dose 75+ series) Respiratory Syncytial Virus (RSV) or age 60 yrs+ (1 - 1-dose 75+ series) [facility] Start: 07-23-2028 Screening for malignant neoplasm of colon [facility] Start: 03-04-2027 Diabetes Screening Diabetes Screening [facility] Start: 02-18-2027 Diabetes Screening Diabetes Screening [facility] Start: 02-02-2027 Screening for osteoporosis Bone Density Screening [facility] Start: 06-24-2026 Diabetes Screening Diabetes Screening [facility] Start: 06-01-2026 End: 06-01-2026 Patient encounter procedure 06/01/2026 8:45 AM EDT Office Visit [facility] [address] [place] [id number] Dania Steven, [address] [place] [address] [facility] Start: 04-25-2026 Screening for malignant neoplasm of lung Lung Cancer Screening [facility] Start: 04-12-2026 End: 09-02-2026 CT Chest WO contrast CT chest wo IV contrast Imaging Routine Pulmonary nodule Expected: 04/12/2026, Expires: 09/02/2026 [facility] Work Phone: Comment on above: Expected: 04/12/2026, Expires: Start: 12-08-2025 End: 12-08-2025 Patient encounter procedure [facility] OB Start: 09-30-2025 Screening for malignant neoplasm of breast Mammogram [facility] Start: 08-02-2025 End: 08-02-2025 Patient encounter procedure Rheumatology Comment on above: Follow up Osteoporosis 1st attempt : LVM te mplate change -AV Follow up Osteoporosis Start: 07-26-2025 Adult BMI Screening Adult BMI Screening [facility] Start: 07-26-2025 Tobacco Screening Tobacco Screening [facility] Start: 07-26-2025 End: 07-26-2025 Patient encounter procedure 07/26/2025 10:15 AM EDT Office Visit [facility] [address] [place] [address] Sarah Godwin MD [address] [facility] [address] [place] [address] [facility] Start: 07-13-2025 End: 07-13-2025 Patient encounter procedure 07/13/2025 8:30 AM EDT Office Visit Cardiology [address] [facility] [place] [address] Nigel Bowens MD [address] [place] [address] Coronary artery disease involving nondalton coronary artery of nondalton heart without... Cardiology Comment on above: Coronary artery disease involving nondalton coronary artery of nondalton heart without... Start: 07-04-2025 End: 07-04-2025 Patient encounter procedure 07/04/2025 10:30 AM EDT Office Visit CARD INTERVENTION [facility] [address] [place] [address] Sveta Strong MD [address] [place] [address] (Fax) lvm and mc appt rs from 06/07/25 CARD INTERVENTION [facility] Comment on above: lvm and mc appt rs from 06/07/25 Start: 06-13-2025 Influenza vaccination [facility] Start: 06-07-2025 End: 06-07-2025 Patient encounter procedure 06/07/2025 10:00 AM EDT Office Visit CARD INTERVENTION YOANNA CARMONA [address] [place] [address] Sveta Strong MD [address] [place], [place] [phone] (Fax) Coronary artery disease involving nondalton coronary artery of nondalton heart without... CARD INTERVENTION [facility] Comment on above: Coronary artery disease involving nondalton coronary artery of nondalton heart without... Start: 06-02-2025 End: 06-02-2025 Patient encounter procedure 06/02/2025 8:45 AM EDT Office Visit [facility] [address] [place] [address] Dania Steven DO [address] [place] [address] [facility] Start: 05-13-2025 Influenza vaccination Flu vaccine (Season Ended) [facility] Start: 05-10-2025 End: 08-09-2025 25-hydroxyvitamin D3 [Mass/volume] in Serum or Plasma VITAMIN D 25 HYDROXY Lab Routine Vitamin D deficiency Expected: 05/10/2025, Expires: 08/09/2025 [facility] Work Phone: Comment on above: Expected: 05/10/2025, Expires: Start: 05-10-2025 End: 08-09-2025 Cobalamin (Vitamin B12) [Mass/volume] in Serum or Plasma VITAMIN B12 Lab Routine Vitamin B12 deficiency Expected: 05/10/2025, Expires: 08/09/2025 [facility] Work Phone: Comment on above: Expected: 05/10/2025, Expires: Start: 05-10-2025 End: 08-09-2025 Homocysteine [Moles/volume] in Serum or Plasma HOMOCYSTEINE Lab Routine Vitamin B12 deficiency Heart disease, unspecified Expected: 05/10/2025, Expires: 08/09/2025 [facility] Comment on above: Expected: 05/10/2025, Expires: Start: 05-10-2025 Screening for malignant neoplasm of lung Lung Cancer Screening [facility] Start: 05-04-2025 End: 05-04-2025 Patient encounter procedure 05/04/2025 1:45 PM EDT Office Visit Orthopaedics [address] [place] [address] Orquidea Saavedra MD [address] [place] [address] 3 month f/u Orthopaedics Comment on above: 3 month f/u Start: 05-04-2025 End: 05-04-2025 ambulatory 05/04/2025 1:15 PM EDT Results Only [facility] [address] [place] [address] Vitamin B12 deficiency [E53.8] [facility] Comment on above: Vitamin B12 deficiency [E53.8] Start: 05-02-2025 End: 06-03-2025 CT Chest WO contrast CT chest wo IV contrast Imaging Routine Pulmonary nodule Expected: 05/02/2025, Expires: 06/03/2025 [facility] Work Phone: Comment on above: Expected: 05/02/2025, Expires: Start: 03-31-2025 End: 03-31-2025 Patient encounter procedure 03/31/2025 8:30 AM EDT [facility]ointment [facility] [address] [place] [phone] Al Singh, PT [facility] Physical Therapy Comment on above: [facility] Start: 03-28-2025 End: 03-28-2025 Patient encounter procedure 03/28/2025 9:15 AM EDT Appointment [facility] [address] [place] [phone] Cedrick Perera [facility] Physical Therapy Start: 03-21-2025 End: 03-21-2025 Patient encounter procedure 03/21/2025 8:30 AM EDT Appointment [facility] [address] [place] [phone] Cedrick Perera [facility] Physical Therapy Start: 03-16-2025 End: 03-16-2025 Patient encounter procedure 03/16/2025 9:15 AM EDT Appointment [facility] [address] [place] [phone] Cedrick Perera [facility] Physical Therapy Start: 03-14-2025 End: 03-14-2025 Patient encounter procedure 03/14/2025 9:15 AM EDT Appointment [facility] Physical Therapy [address] [place] [phone] Cedrick Perera [facility] Physical Therapy Start: 03-11-2025 End: 03-11-2025 Patient encounter procedure 03/11/2025 8:00 AM EDT Appointment [facility] Physical Therapy [address] [place] [phone] Giovanna Wu PTA [facility] Start: 03-09-2025 End: 03-09-2025 Patient encounter procedure 03/09/2025 2:30 PM EDT Appointment [facility] Physical Therapy [address] [place] [phone] Giovanna Wu PTA [facility] Physical Therapy Start: 03-08-2025 End: 03-08-2025 Patient encounter procedure 03/08/2025 3:30 PM EDT Office Visit Gynecology [address] [place] [address] Augustina Vargas MD [address] [place] [address] [facility] Comment on above: [facility] Start: 03-02-2025 End: 03-02-2025 Patient encounter procedure 03/02/2025 3:15 PM EDT Appointment [facility] Physical Therapy [address] [place] [phone] Garrison العراقي PTA [facility] Physical Therapy Start: 03-01-2025 End: 03-01-2025 Patient encounter procedure 03/01/2025 8:30 AM EDT Appointment [facility] Physical Therapy [address] [place] [phone] Garrison العراقي PTA [facility] Start: 02-25-2025 End: 02-25-2025 Patient encounter procedure 02/25/2025 12:15 PM EDT Appointment [facility] Physical Therapy [address] [place] [phone] Giovanna Wu PTA [facility] Therapy Start: 02-21-2025 End: 02-21-2025 Patient encounter procedure 02/21/2025 10:30 AM EDT Appointment [facility] Physical Therapy [address] [place] [phone] 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 PTA [facility] Physical Therapy Start: 02-17-2025 End: 02-17-2025 Patient encounter procedure 02/17/2025 9:45 AM EDT Appointment [facility] Physical Therapy [address] [place] [phone] Al Singh, PT MEDICARE [facility] Comment on above: MEDICARE Start: 02-12-2025 Tobacco Screening Tobacco Screening [facility] Start: 02-09-2025 Adult BMI Screening Adult BMI Screening [facility] Start: 02-09-2025 Tobacco Screening Tobacco Screening [facility] Start: 02-08-2025 End: 02-08-2025 Patient encounter procedure 02/08/2025 11:20 AM EDT Office Visit Rheumatology [address] [place] [address] Gi Siddiqi MD [address] [place] [address] Return for After results for review of DXA and lab results and discussing rx. Rheumatology Comment on above: Return for After results for review of D XA and lab results and discussing rx. Start: 02-07-2025 End: 02-07-2025 Patient encounter procedure 02/07/2025 11:15 AM EDT Appointment [facility] Physical Therapy [address] [place] [phone] 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 PTA [facility] Start: 02-07-2025 End: 02-07-2025 ambulatory 02/07/2025 7:15 AM EDT Results Only [facility] [address] [place] [address] lab [facility] Comment on above: lab Start: 01-31-2025 End: 01-31-2025 Patient encounter procedure 01/31/2025 9:45 AM EDT Appointment [facility] Physical Therapy [address] [place] [phone] 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 PTA HAVE YELENA IN FOR 15 MINUTE [facility] Physical Therapy Comment on above: HAVE YELENA IN FOR 15 MINUTE [facility] Start: 01-24-2025 End: 01-24-2025 Patient encounter procedure 01/24/2025 9:00 AM EDT Appointment [facility] [address] [place] [phone] 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 PTA [facility] Start: 01-17-2025 End: 01-17-2025 Patient encounter procedure 01/17/2025 9:00 AM EDT Appointment [facility] [address] [place] [phone] 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 PTA [facility] Start: 01-15-2025 Screening for malignant neoplasm of lung Lung Cancer Screening [facility] Start: 01-12-2025 End: 01-12-2025 Patient encounter procedure 01/12/2025 11:15 AM EDT Appointment [facility] [address] [place] [phone] 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 PTA [facility] Start: 01-10-2025 End: 01-10-2025 Patient encounter procedure 01/10/2025 9:00 AM EDT [facility] [address] [place] [phone] 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 PTA [facility] Start: 01-03-2025 End: 01-03-2025 Patient encounter procedure 01/03/2025 9:45 AM EDT [facility]ment [facility] [address] [place] [phone] 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 PTA [facility] Start: 12-20-2024 End: 12-20-2024 Patient encounter procedure 12/20/2024 9:45 AM EDT Appointment [facility] [address] [place] [phone] 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 PTA [facility] Start: 12-13-2024 End: 12-13-2024 Patient encounter procedure 12/13/2024 9:45 AM EST Appointment [facility] [address] [place] [phone] 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 PTA [facility] Start: 12-08-2024 End: 12-08-2024 Patient encounter procedure 12/08/2024 4:00 PM EST Office Visit Gynecology [address] [place] [address] Augustina Vargas MD [address] [place] [address] [facility] Comment on above: TPI Start: 12-06-2024 End: 12-06-2025 DXA Skeletal system Views for bone density DEXA bone density Imaging Routine Postmenopausal state Expected: 12/06/2024 (Approximate), Expires: 12/06/2025 [facility] Comment on above: Expected: 12/06/2024 (Approximate), Expi res: 12/06/2025 Start: 12-06-2024 End: 02-03-2026 MG Breast - bilateral Screening Bilateral screening mammogram Imaging Routine Breast cancer screening by mammogram Expected: 12/06/2024, Expires: 02/03/2026 [facility] Work Phone: Comment on above: Expected: 12/06/2024, Expires: Start: 12-06-2024 End: 12-06-2024 Patient encounter procedure [facility] Physical Therapy Comment on above: Arrived Start: 12-02-2024 Adult BMI Screening Adult BMI Screening [facility] Start: 12-02-2024 Tobacco Screening [facility] Start: 11-29-2024 End: 11-29-2024 Patient encounter procedure 11/29/2024 3:45 PM EST [facility]ointment [facility] [address] [place] [phone] 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 PTA [facility] Start: 11-22-2024 End: 11-22-2024 Patient encounter procedure 11/22/2024 12:00 PM EST [facility]ointment [facility] [address] [place] [phone] 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 PTA [facility] Start: 11-12-2024 Adult BMI Screening Adult BMI Screening [facility] Start: 11-12-2024 Tobacco Screening Tobacco Screening [facility] Start: 10-13-2024 Advance Directive Discussion Advance Directive Discussion [facility] Start: 10-05-2024 End: 10-05-2024 Patient encounter procedure 10/05/2024 2:30 PM EST Office Visit Gynecology [address] [address] Augustina Vargas MD [address] [place] [address] put her on my schedule oct 05, 2024 at 2:30pm for botox Gynecology Comment on above: put her on my schedule oct 05, 2024 at 2:30pm for botox Start: 09-30-2024 Adult BMI Screening Adult BMI Screening [facility] Start: 09-30-2024 Tobacco Screening Tobacco Screening [facility] Start: 09-29-2024 Screening for malignant neoplasm of breast Mammogram [facility] Start: 09-15-2024 End: 09-15-2024 Patient encounter procedure 09/15/2024 3:30 PM EST Appointment [facility] Physical Therapy [address] [place] [phone] 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 PTA [facility] Physical Therapy Start: 09-08-2024 End: 09-08-2024 Patient encounter procedure 09/08/2024 3:30 PM EST Appointment [facility] Physical Therapy [address] [place] [phone] Rosemary Loay PTA [facility] Physical Therapy Start: 09-01-2024 End: 09-01-2024 Patient encounter procedure 09/01/2024 9:00 AM EST Appointment [facility] Physical Therapy [address] [place] [phone] 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 PTA needs medicare recheck with yelena at this appt [facility] Physical Therapy Comment on above: needs medicare recheck with yelena at this appt Start: 08-27-2024 End: 08-27-2024 ambulatory 08/27/2024 10:30 AM EST [facility] [address] [address] Augustina Vargas MD [address] [place] [address] 3 MO F/U - TVST ok per Dr. Vargas Gynecology Comment on above: 3 MO F/U - TVST ok per Dr. Vargas Start: 08-27-2024 End: 08-27-2024 Patient encounter procedure 08/27/2024 10:30 AM EST Office Visit Gynecology [address] [place] [address] Augustina Vargas MD [address] [place] [address] 3 MO F/U - TVST ok per Dr. Vargas Gynecology Comment on above: 3 MO F/U - TVST ok per Dr. Vargas Start: 08-23-2024 End: 08-23-2024 Patient encounter procedure 08/23/2024 1:15 PM EST Appointment [facility] Physical Therapy [address] [place] [phone] 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 PTA needs medicare recheck with yelena at next appt [facility] Physical Therapy Comment on above: needs medicare recheck with yelena at next appt Start: 08-17-2024 End: 08-17-2024 ambulatory 08/17/2024 5:00 PM EST [facility] [address] [place] [address] Augustina Vargas MD [address] [place] [address] 6 WEEK FU Gynecology Comment on above: 6 WEEK FU Start: 08-09-2024 End: 08-09-2024 Patient encounter procedure 08/09/2024 10:45 AM EDT Appointment [facility] Physical Therapy [address] [place] [phone] 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 PTA [facility] Physical Therapy Start: 07-26-2024 End: 07-26-2024 Patient encounter procedure 07/26/2024 10:15 AM EDT Office Visit [facility] - ENT [address] [place] [address] Sarah Godwin MD [address] [facility] [place] [address] [facility] - [facility]NT Start: 07-20-2024 End: 07-20-2024 Patient encounter procedure 07/20/2024 10:45 AM EDT Office Visit [facility] [address] [place] [address] Sarah Godwin MD [address] [facility] [address] [place] [address] [facility] Start: 07-06-2024 End: 07-06-2024 Patient encounter procedure 07/06/2024 10:30 AM EDT Office Visit Gynecology [address] [place] [address] Augustina Vargas MD [address] [place] [address] Botox Gynecology Comment on above: Botox Start: 06-28-2024 End: 06-28-2024 Patient encounter procedure 06/28/2024 1:30 PM EDT Appointment [facility] [address] [place] [id number] 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 PTA [facility] Start: 06-24-2024 Screening for malignant neoplasm of lung Lung Cancer Screening [facility] Start: 06-21-2024 End: 06-21-2024 Patient encounter procedure 06/21/2024 9:30 AM EDT Appointment [facility] [address] [place] [address] [phone] 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 PTA [facility] Start: 06-15-2024 Annual Wellness Visit (Medicare) Annual Wellness Visit (Medicare) [email or web address] Start: 06-13-2024 COVID-19 Vaccine ( season) COVID-19 Vaccine () [email or web address] Start: 06-13-2024 COVID-19 Vaccine () COVID-19 Vaccine () [email or web address] Start: 06-13-2024 COVID-19 Vaccine () COVID-19 Vaccine ( season) [facility] Start: 06-13-2024 Covid-19 Vaccine ( season) Covid-19 Vaccine ( season) [facility] Start: 06-13-2024 Influenza vaccination [facility] Start: 05-27-2024 End: 05-27-2024 Patient encounter procedure Gynecology Comment on above: new cpp add 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 Imaging [address] [place] [id number] [facility] Start: 04-26-2024 End: 04-26-2024 Patient encounter procedure Radiology Comment on above: 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 ORDER SCANNED POST R ENAL AUTOTRANSPLANTATION OTHER DISORDER OF KIDNEY Start: 04-22-2024 End: 04-22-2024 ambulatory 04/22/2024 3:00 PM EDT [facility] [address] [phone] [place] [address] [place] [id number] virtual/per staff message Urology Comment on above: virtual/per staff message Start: 03-02-2024 End: 03-02-2024 Admission to same day surgery center 03/02/2024 7:30 AM EDT - 03/02/2024 5:03 PM EDT Surgery Admitting [address] [place] [address] Viet Carr MD [address] [place] [address] 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 Admitting Comment on above: ROBOTIC SINGLE PORT LAPAROSCOPIC RENAL A UTOTRANSPLANTATION REIMPLANTATION OF KIDNEY Start: 03-02-2024 Subsequent hospital visit by physician 03/02/2024 7:30 AM EDT Hospital Encounter Admitting [address] [place] [address] Viet Carr MD [address] [place] [address] 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] Admitting [...] coagulation profile Expected: 02/25/2024 (Approximate), Expires: 05/26/2024 [facility] Comment on above: Expected: 02/25/2024 (Approximate), Expi res: 05/26/2024 Start: 02-25-2024 End: 05-26-2024 CBC W Auto Differential panel - Blood COMPLETE BLOOD COUNT AND DIFFERENTIAL Lab Routine Nutcracker phenomenon of renal vein Expected: 02/25/2024 (Approximate), Expires: 05/26/2024 [facility] Work Phone: Comment on above: Expected: 02/25/2024 (Approximate), Expi res: 05/26/2024 Start: 02-25-2024 End: 05-26-2024 Comprehensive metabolic 2000 panel - Serum or Plasma COMPREHENSIVE METABOLIC PANEL Lab Routine Nutcracker phenomenon of renal vein Expected: 02/25/2024 (Approximate), Expires: 05/26/2024 [facility] Comment on above: Expected: 02/25/2024 (Approximate), Expi res: 05/26/2024 Start: 02-25-2024 End: 05-26-2024 CONFIRM BLOOD TYPE CONFIRM BLOOD TYPE Blood Bank Routine Nutcracker phenomenon of renal vein Expected: 02/25/2024 (Approximate), Expires: 05/26/2024 [facility] Comment on above: Expected: 02/25/2024 (Approximate), Expi res: 05/26/2024 Start: 02-25-2024 End: 12-29-2024 ECG COMPLETE ECG COMPLETE ECG Routine Nutcracker phenomenon of renal vein Expected: 02/25/2024 (Approximate), Expires: 12/29/2024 [facility] Comment on above: Expected: 02/25/2024 (Approximate), Expi res: 12/29/2024 Start: 02-25-2024 End: 05-26-2024 PT panel - Platelet poor plasma by Coagulation assay PROTHROMBIN TIME Lab Routine Nutcracker phenomenon of renal vein Expected: 02/25/2024 (Approximate), Expires: 05/26/2024 [facility] Comment on above: Expected: 02/25/2024 (Approximate), Expi res: 05/26/2024 Start: 02-25-2024 End: 05-26-2024 TYPE AND SCREEN,30 DAY TYPE AND SCREEN,30 DAY Blood Bank Routine Nutcracker phenomenon of renal vein Expected: 02/25/2024 (Approximate), Expires: 05/26/2024 [facility] Comment on above: Expected: 02/25/2024 (Approximate), Expi res: 05/26/2024 Start: 02-19-2024 End: 02-19-2024 ambulatory 02/19/2024 2:30 PM EDT Results Only Cardiology [address] [phone] PRE OP ELTEMAMY ~ 03/02 Cardiology Comment on above: PRE OP ELTEMAMY ~ 03/02 Start: 02-19-2024 End: 02-19-2024 Patient encounter procedure Admitting Comment on above: PRE OP ELTEMAMY ~ 03/02 Start: 02-19-2024 End: 02-19-2024 Anesthesia consultation 02/19/2024 1:20 PM EDT PAT Pre Anesthesia [address] [address] [place] [address] PRE OP ELTEMAMY ~ 03/02 Pre Anesthesia Comment on above: PRE OP ELTEMAMY ~ 03/02 Start: 02-10-2024 End: 02-10-2024 Patient encounter procedure 02/10/2024 9:45 AM EDT Office Visit [facility] - ENT [address] [place] [address] Sarah Godwin MD [address] [facility] [facility] [address] [place] [address] [facility] - ENT Start: 12-19-2023 End: 03-19-2024 Basic metabolic 2000 panel - Serum or Plasma BASIC METABOLIC PNL Lab Routine Nutcracker phenomenon of renal vein Preop testing Expected: 12/19/2023 (Approximate), Expires: 03/19/2024 [facility] Work Phone: Comment on above: Expected: 12/19/2023 (Approximate), Expi res: 03/19/2024 Start: 12-19-2023 End: 03-19-2024 CBC W Auto Differential panel - Blood CBC + DIFF Lab Routine Nutcracker phenomenon of renal vein Preop testing Expected: 12/19/2023 (Approximate), Expires: 03/19/2024 [facility] Work Phone: Comment on above: Expected: 12/19/2023 (Approximate), Expi res: 03/19/2024 Start: 12-19-2023 End: 03-19-2024 CONFIRM BLOOD TYPE CONFIRM BLOOD TYPE Blood Bank Routine Nutcracker phenomenon of renal vein Preop testing Expected: 12/19/2023 (Approximate), Expires: 03/19/2024 [facility] Work Phone: Comment on above: Expected: 12/19/2023 (Approximate), Expi res: 03/19/2024 Start: 12-19-2023 End: 03-19-2024 PT panel - Platelet poor plasma by Coagulation assay PROTHROMBIN TIME/PT Lab Routine Nutcracker phenomenon of renal vein Preop testing Expected: 12/19/2023 (Approximate), Expires: 03/19/2024 [facility] Work Phone: Comment on above: Expected: 12/19/2023 (Approximate), Expi res: 03/19/2024 Start: 12-19-2023 End: 03-19-2024 STAPH AUREUS PCR STAPH AUREUS PCR Lab Routine Nutcracker phenomenon of renal vein Preop testing Expected: 12/19/2023, Expires: 03/19/2024 [facility] Work Phone: Comment on above: Expected: 12/19/2023, Expires: Start: 12-19-2023 End: 03-19-2024 TYPE AND SCREEN,30 DAY TYPE AND SCREEN,30 DAY Blood Bank Routine Nutcracker phenomenon of renal vein Preop testing Expected: 12/19/2023 (Approximate), Expires: 03/19/2024 [facility] Work Phone: Comment on above: Expected: 12/19/2023 (Approximate), Expi res: 03/19/2024 Start: 12-02-2023 End: 12-02-2023 Patient encounter procedure 12/02/2023 12:45 PM EST Office Visit [facility] - ENT [address] [place] [address], [address] [place] [address] Matthew Ramirez, PA-C [address] [place] [address] [address] [place] [address] [facility] - ENT Start: 11-24-2023 End: 11-24-2023 Admission to same day surgery center 11/24/2023 12:15 PM EST - 11/24/2023 2:15 PM EST Surgery [facility] Surgery [address] [place] [phone] [place] [address] [place] [address] [address] [place] [address] SIALENDOSCOPY RIGHT SUBMANDIBULAR DUCT [43642 (CPT )] [facility] - Surgery Comment on above: SIALENDOSCOPY RIGHT SUBMANDIBULAR DUCT [ [id number] (CPT )] Start: 11-24-2023 Subsequent hospital visit by physician 11/24/2023 12:15 PM EST Hospital Encounter [facility] Surgery [address] [facility] [place] [address] Sarah Godwin MD [address] [facility] [facility] [address] [place] [address] [facility] - Surgery Start: 11-24-2023 End: 11-24-2023 Unlisted px salivary glands/ducts SIALENDOSCOPY Submandibular gland swelling Chronic sialoadenitis 11/24/2023 12:15 PM EST [facility] Start: 10-13-2023 Advance Directive Discussion Advance Directive Discussion [facility] Start: 10-13-2023 Behavioral Health Screening Behavioral Health Screening [facility] Start: 10-13-2023 Depression Assessment Depression Assessment [facility] Start: 06-13-2023 Covid-19 Vaccine () Covid-19 Vaccine () [facility] Start: 06-13-2023 Influenza vaccination [facility] Start: 05-13-2023 Medicare Annual Wellness Visit Medicare Annual Wellness Visit [facility] Start: 2022 Fall Risk Screening Fall Risk Screening [facility] Start: 2022 Pneumococcal 65+ years Vaccine (2 of 2 - PCV) Pneumococcal 65+ years Vaccine (2 of 2 - PCV) [facility] Start: 2022 Pneumococcal Vaccine: 65+ (1 of 1 - PCV) Pneumococcal Vaccine: 65+ (1 of 1 - PCV) [facility] Start: 2022 Pneumococcal Vaccine: 65+ (2 of 2 - PCV) Pneumococcal Vaccine: 65+ (2 of 2 - PCV) [facility] Start: 2022 Pneumococcal Vaccine: 65+ Years (2 of 2 - PCV) Pneumococcal Vaccine: 65+ Years (2 of 2 - PCV) [facility] Start: 2022 Screening for osteoporosis Bone Density Screening [facility] Start: 06-30-2021 Pneumococcal 50+ years Vaccine (2 of 2 - PCV) Pneumococcal 50+ years Vaccine (2 of 2 - PCV) [facility] Start: 06-30-2021 Pneumococcal Vaccine: 50+ (2 of 2 - PCV) Pneumococcal Vaccine: 50+ (2 of 2 - PCV) [facility] Start: 06-30-2021 Pneumococcal Vaccine: 65+ (2 of 2 - PCV) Pneumococcal Vaccine: 65+ (2 of 2 - PCV) [facility] Start: 06-30-2021 Pneumococcal Vaccine: 65+ Years (2 of 2 - PCV) Pneumococcal Vaccine: 65+ Years (2 of 2 - PCV) [facility] Start: 2017 Respiratory Syncytial Virus (RSV) or age 60 yrs+ (1 - 1-dose 60+ series) Respiratory Syncytial Virus (RSV) or age 60 yrs+ (1 - 1-dose 60+ series) [facility] Start: 2017 RSV Vaccine (1 - 1-dose 60+ series) RSV Vaccine (1 - 1-dose 60+ series) [facility] Start: 2017 RSV Vaccine (1 - Risk 60-74 years 1-dose series) RSV Vaccine (1 - Risk 60-74 years 1-dose series) [facility] Start: 2012 Screening for osteoporosis DEXA (modify frequency per FRAX score) [facility] Start: 2007 Shingrix Vaccine (1 of 2) Shingrix Vaccine (1 of 2) [facility] Start: 2002 Lipid panel Lipid Screening [facility] Start: 2002 Screening for malignant neoplasm of colon [facility] Start: 1997 Lipid panel Lipids [facility] Start: 1997 Screening for malignant neoplasm of breast [facility] Start: 1976 DTaP,Tdap and Td Vaccines (1 - Tdap) DTaP,Tdap and Td Vaccines (1 - Tdap) [facility] Start: 1976 DTaP/Tdap/Td vaccine (1 - Tdap) DTaP/Tdap/Td vaccine (1 - Tdap) [facility] Start: 1976 Urine microalbumin profile DTaP,Tdap,Td Vaccine (1 - Tdap) [facility] Start: 1975 Anxiety Screening Anxiety Screening [facility] Start: 1975 Depression Screening Depression Screening [facility] Start: 1975 Hepatitis C screening [facility] Start: 1969 Depression Screen Depression Screen [facility] Start: 1969 Depression Screening Depression Screening [facility] Start: 1968 Screening for malignant neoplasm of cervix Cervical Cancer Screening [facility] Start: 03-04-1958 Covid-19 Vaccine (#1) Covid-19 Vaccine (#1) [facility] Start: 1957 Medicare Annual Wellness Visit Medicare Annual Wellness Visit [facility] Start: 1957 Screening for malignant neoplasm of colon [facility] CYSTOSCOPY WHI CYSTOSCOPY WHI P rocedures Routine High-tone pelvic floor dysfunction 1 Occurrences starting 08/18/2024 [facility] Work Phone: Comment on above: 1 Occurrences starting 08/18/2024 End: 12-18-2024 ECG COMPLETE ECG COMPLETE ECG Routine Nutcracker phenomenon of renal vein Preop testing 1 Occurrences starting 12/19/2023 until 12/18/2024 [facility] Work Phone: Comment on above: 1 Occurrences starting 12/19/2023 until 12/18/2024 Injection single/controls operator molded goods trigger point 1/2 muscles TRIGGER POINT INJECTION MULTI 1-2 MUSCLE GR Procedures Routine Myalgia Ordered: 07/06/2024 [facility] Work Phone: Comment on above: Ordered: 07/06/2024 Injection single/controls operator molded goods trigger point 1/2 muscles TRIGGER POINT INJECTION MULTI 1-2 MUSCLE GR Procedures Routine Trigger point of abdomen Myalgia, other site Ordered: 12/08/2024 [facility] Work Phone: Comment on above: Ordered: 12/08/2024 End: 07-02-2025 Lipid panel Lipid panel Lab Routine Hyperlipidemia, unspecified hyperlipidemia type 1 Occurrences starting 07/02/2024 until 07/02/2025 [facility] Work Phone: Comment on above: 1 Occurrences starting 07/02/2024 until 07/02/2025 THIN PREP TIS PAP AN D HR HPV DNA THIN PREP TIS PAP AND HR HPV DNA Pathology and Cytology Routine Well woman exam with routine gynecological exam Ordered: 12/06/2024 [facility] Comment on above: Ordered: 12/06/2024 URINALYSIS, REFLEX MICROSCOPIC URINALYSIS, REFLEX MICROSCOPIC Lab Routine Screening for genitourinary condition Ordered: 05/27/2024 [facility] Work Phone: Comment on above: Ordered: 05/27/2024 End: 12-11-2024 US Renal artery US RENAL ARTERY [facility] Lab Routine Nutcracker phenomenon of renal vein 1 Occurrences starting 12/12/2023 until 12/11/2024 [facility] Work Phone: Comment on above: 1 Occurrences starting 12/12/2023 until 12/11/2024 End: 12-16-2024 US Vein - bilateral US VENOUS INCOMPETENCY [facility] Lab Routine Nutcracker phenomenon of renal vein 1 Occurrences starting 12/17/2023 until 12/16/2024 [facility] Work Phone: Comment on above: 1 Occurrences starting 12/17/2023 until 12/16/2024 End: 12-16-2024 US.doppler Renal vessels - bilateral US RENAL VENOUS [facility] Lab Routine Nutcracker phenomenon of renal vein 1 Occurrences starting 12/17/2023 until 12/16/2024 [facility] Work Phone: Comment on above: 1 Occurrences starting 12/17/2023 until 12/16/2024 [facility] Immunizations Immunization Date Immunization Notes Care Provider Waylon bravo 07-20-2021 influenza virus vaccine, split virus (incl. 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 09-13-2020 zoster vaccine recombinant Dania Briana DO Work Phone: [facility] 07-14-2020 influenza, injectabl e, quadrivalent, preservative free Dania Briana DO Work Phone: [facility] 07-07-2020 zoster vaccine recombinant Dania Briana DO Work Phone: [facility] 06-30-2020 pneumococcal polysaccharide vaccine, 23 valent Dania Briana DO Work Phone: [facility] 08-11-2019 influenza virus vaccine, split virus (incl. purified surface antigen) Ammon Lucas Other [employer] Other 08-11-2019 influenza virus vaccine, unspecified formulation Ammon Lucas MD Work Phone: [facility] 08-11-2019 influenza, injectabl e, quadrivalent, preservative free Dania Briana DO Work Phone: [facility] 08-19-2018 influenza, injectabl e, quadrivalent, preservative free Dania Briana DO Work Phone: [facility] Healthcare Payers Date Payer Category Payer Unknown AARP AARP [id number] 2023-Present [address] [place] [address] [id number] 2023 Managed Care Other (unspecified) [facility] [id number] .[id number] 2023 Unknown [id number] 2.16.840.1.790229.19 2022 Medicare [id number]. 1.13.159.2 .[id number] 2018 Private Health Insurance 1959 Medicare [id number] 2.16.840.1.362910.19 1959 Private Health Insurance [id number] 1959 Self-pay 1957 Unknown [id number] 2.16.840.1.217616.3.579.2 .593 1957 Unknown [id number] 2.16.840.1.023406.3.579.2 .593 1957 Unknown [id number] 2.16.840.1.353794.3.579.2 .593 1957 Unknown [id number] 2.16.840.1.394734.3.579.2 .593 1957 Unknown [id number] 2.16.840.1.078721.3.579.2 .1286 1957 Unknown [id number] 2.16.840.1.757882.3.579.2 .128 1957 Unknown [id number] 2.16.840.1.998194.3.579.2 .1286 1957 Unknown [id number] 2.16.840.1.703360.3.579.2 .1286 1957 Unknown [id number] 2.16.840.1.041976.3.579.2 .1286 1957 Unknown [id number] 2.16.840.1.946119.3.579.2 .1286 1957 Unknown [id number] 2.16.840.1.357094.3.579.2 .1286 1957 Unknown [id number] 2.16.840.1.613991.3.579.2 .1286 1957 Unknown [id number] 2.16.840.1.393310.3.579.2 .1286 1957 Unknown [id number] 2.16.840.1.211822.3.579.2 .173 1957 Unknown [id number] 2.16.840.1.446728.3.579.2 .173 1957 Unknown [id number] 2.16.840.1.095759.3.579.2 .173 1957 Unknown [id number] 2.16.840.1.923438.3.579.2 .173 1957 Unknown [id number] 2.16.840.1.294353.3.579.2 .173 1957 Unknown [id number] 2.16.840.1.222434.3.579.2 .173 1957 Unknown [id number] 2.16.840.1.199199.3.579.2 .173 1957 Unknown [id number] 2.16.840.1.845873.3.579.2 .173 1957 Unknown [id number] 2.16.840.1.244774.3.579.2 .173 1957 Unknown [id number] 2.16.840.1.259348.3.579.2 .173 1957 Unknown [id number] 2.16.840.1.165878.3.579.2 .173 1957 Unknown [id number] 2.16.840.1.153973.3.579.2 .173 1957 Unknown [id number] 2.16.840.1.897733.3.579.2 .173 1957 Unknown [id number] 2.16.840.1.062954.3.579.2 .173 1957 Unknown [id number] 2.16.840.1.719978.3.579.2 .173 1957 Unknown [id number] 2.16.840.1.833251.3.579.2 .173 1957 Unknown [id number] 2.16.840.1.666590.3.579.2 .173 1957 Unknown [id number] 2.16.840.1.652216.3.579.2 .173 1957 Unknown [id number] 2.16.840.1.507110.3.579.2 .173 1957 Unknown [id number] 2.16.840.1.818200.3.579.2 .173 1957 Unknown [id number] 2.16.840.1.691737.3.579.2 .173 1957 Unknown [id number] 2.16.840.1.495335.3.579.2 .173 1957 Unknown [id number] 2.16.840.1.571161.3.579.2 .173 1957 Unknown [id number] 2.16.840.1.811074.3.579.2 .173 1957 Unknown [id number] 2.16.840.1.461610.3.579.2 .173 1957 Unknown [id number] 2.16.840.1.236930.3.579.2 .173 1957 Unknown [id number] 2.16.840.1.881011.3.579.2 .173 1957 Unknown [id number] 2.16.840.1.572480.3.579.2 .173 1957 Unknown [id number] 2.16.840.1.217398.3.579.2 .173 1957 Unknown [id number] 2.16.840.1.343092.3.579.2 .173 1957 Unknown [id number] 2.16.840.1.085271.3.579.2 .173 1957 Unknown [id number] 2.16.840.1.041862.3.579.2 .173 1957 Unknown [id number] 2.16.840.1.024557.3.579.2 .173 1957 Unknown [id number] 2.16.840.1.318786.3.579.2 .173 1957 Unknown [id number] 2.16.840.1.993190.3.579.2 .173 1957 Unknown [id number] 2.16.840.1.823785.3.579.2 .173 1957 Unknown [id number] 2.16.840.1.113605.3.579.2 .1286 1957 Unknown [id number] 2.16.840.1.446373.3.579.2 .1286 1957 Unknown [id number] 2.16.840.1.788444.3.579.2 .1259 1957 Unknown [id number] 2.16.840.1.442186.3.579.2 .1259 Medicare AARP Medicare Ad vantage [facility] [id number] Unknown [id number] 2.16.840.1.423827.3.579.2 .593 Social History Date Type Detail Facility Start: 11-05-2023 End: 06-03-2024 Sex Assigned At [facility] Tobacco smoking status [facility] Tobacco smoking consumption unknown [facility] Start: 1955 Sex Assigned At Not on file [facility] Start: 02-24-2020 End: 11-05-2023 Tobacco smoking status INIS Ex-smoker [facility] Start: 02-07-1970 End: 10-13-2010 History of tobacco use Current smoker [facility] Start: 02-07-1970 End: 10-13-2010 History of tobacco use Cigarette Smoker [facility] Start: 11-05-2023 End: 06-03-2024 Cigarettes smoked current (pack per day) - Reported 1 [facility] Start: 11-05-2023 End: 06-03-2024 Tobacco use and exposure Smokeless tobacco non-user [facility] Start: 11-05-2023 End: 03-08-2025 Alcohol intake Ex-drinker (finding) [facility] National Score (1-100), lower number is lower risk 64 [facility] History of tobacco use Passive smoker [facility] Start: 06-03-2024 End: 06-02-2025 Alcoholic beverage intake Lifetime non-drinker (finding) [facility] Start: 12-02-2023 Alcohol Comment caffeine intak e: 2-3 cups per day [facility] Start: 09-30-2023 End: 07-26-2024 Alcohol intake Current drinker of alcohol (finding) [facility] Start: 07-17-2023 Alcohol Comment 2 per month [facility] Start: 05-18-2015 End: 05-28-2024 Sex Female (finding) [facility] Start: 1955 Sex Assigned At Female F [facility] NEGATED: Highlighted rowStart: NINF History of tobacco use Passive smoker [facility] Medical Equipment Procedure Code Equipment Code Equipment Origin al Text Equipment Identifier Dates Stent Inlay 4.7f r 2 Pigtail Curve Taper Blue Hydrophilic 14cm Ureteral - [id number] Start: 03-02-2024 Clinical Notes 07-29-2021 to 06-02-2025 Dania Steven DO - 06/02/2025 8:45 AM Orquidea Gonzalez MD - 05/05/2025 11:25 AM Angelina Payan PTA - 03/31/2025 8:45 AM Cedrick Webster - 03/28/2025 9:15 AM EDT Note Date & Type Note Facility 06-02-2025 History of Present illness Narrative Images from [...] 06/12/2023 Chronic rhinitis 03/17/2023 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 This has remained stable since her previous scan prior to that approximately 6 months prior. [...] year (around 06/02/2026) for CT chest . Dania Steven DO documented in this encounter [facility] 05-05-2025 Note HNO ID: [id number] Author: ORQUIDEA SAAVEDRA MD Service: ? Author Type: Physician Type: Progress Notes Filed: 05/05/2025 11:26 Note Text: see dictated note Orquidea Saavedra II, MD [facility] 05-05-2025 History of Present illness Narrative see dictated note Orquidea Saavedra II, MD documented in this encounter [facility] 05-05-2025 Note HNO ID: [id number] Author: ORQUIDEA SAAVEDRA MD Service: Orthopaedic Surgery Author Type: Physician Type: Progress Notes Filed: 05/09/2025 10:36 Note Text: [facility] NOTE [facility] NAME: KAREN ZAIDI [facility] NO.: [id number] DATE OF SERVICE: 05/04/2025 ATTENDING PHYSICIAN: Orquidea Saavedra II, M.D. CHIEF COMPLAINT: Recheck of right knee. The patient has complete collapse of the medial compartment of the right knee seen on standing weightbearing x-rays in the past. She is clinically feeling much better and has been very active. She states that she is now up to walking up 758 stadium steps and walks 1 mile on the track and does this 3 times a week. PE: Has no significant effusion of the knee today. Has marked degenerative arthritis of the right knee and is doing considerably well than what she has. See back in 3 months. DICTATED BY: Eliud Soni II/SUDHIR JOB# [id number] [facility] 03-31-2025 History of Present illness Narrative [facility] Outpatient Physical Therapy Daily Note Patient: Karen Zaidi : 1955 CSN #: [id number] Referring Physician: Augustina Vargas MD Date: 03/31/2025 Treatment Diagnosis: Osteoporosis, R knee pain, R knee OA Onset Date: 09/09/24 PT Insurance Information: Medicare A and B Total # of Visits Approved: 12 Per Physician Order Total # of Visits to Date: 12 No Show: 0 Canceled Appointment: 0 04/01/25 Plan of Care/Recert Due Pre-Treatment Pain: 0/10 Subjective: Patient reports feeling tired and lazy today. Pt reports doing yard work yesterday then went swimming at her son's house. Exercises: Exercise 1: HEP: squats to chair, sink exercises including march, hip abduction, heel/toe raises, counter push-ups, prone lift upper back 10x10 Exercise 2: LE Knee extension (1RM 115) 5x5 85 lbs / LE knee flexion (1RM 115) 5x5 100 lbs Exercise 3: Leg press (1RM 12 plates) 5x5 9 plates Exercise 7: Squat (1RM 25#) 5x5 20# Exercise 8: Tm warm up (per protocol, 30 minues of training) elevation 9% 2.7 mph x30 min Exercise 9: cybex rows (1RM 10 plates) 5x5 8 plates Assessment Body Structures, Functions, Activity Limitations Requiring Skilled Therapeutic Intervention: Decreased functional mobility , Decreased ADL status, Decreased ROM, Decreased strength, Decreased endurance, Decreased balance, Decreased high-level IADLs, Increased pain Assessment: Progressed patient with increased incline during TM ambulation with good tolerance. Fatigue noted end of session with strength training this date. Patient reports 75% improvements in strength and endurance prior to session. Education provided to patient on continuing LIFTMOR protocol with focus on strength training, good understanding. Activity Tolerance Activity Tolerance: Patient tolerated treatment well Patient Education Patient Education: HEP, LIFTMOR protocol Pt verbalized/demonstrated good understanding: [x] Yes [] No, pt required further clarification. Post Treatment Pain: 0/10 Plan Plan Frequency: 2 Plan weeks: 6 Goals (Total # of Visits to Date: 12) Short Term Goals Time Frame for Short Term Goals: 3 weeks Short Term Goal 1: Patient will be initiated with a HEP--MET Short Term Goal 2: Patient will tolerate 30 minutes of therex/act at 85% of 1RM to improve bone denisty.--MET Drum Sander Setter Goals Time Frame for Drum Sander Setter Goals : 6 weeks Fpc Goal 1: Patient will be independent and compliant with a HEP and gym exercise program. - MET/continued Drum Sander Setter Goal 2: Patient will improve bilateral LE strength to 5/5 in all major joints and planes. Drum Sander Setter Goal 3: Patient will improve 5 time sit to stand time by at least 1 second to indicate improved muscular power. 10 STS 16 sec (03/11/25) Drum Sander Setter Goal 4: Patient will report 70% improvement in overall strength and endurance. - MET (03/31 patient reports 75% improvements) Minutes Tracking: Time In: 844 Time Out: 929 Minutes: 45 Timed Code Treatment Minutes: 42 Minutes Angelina Lantigua PTA Date: 03/31/2025 Cosigned by Al Singh, PT at 03/31/2025 11:47 AM EDT documented in this encounter [facility] 03-28-2025 History of Present illness Narrative [facility] Outpatient Physical Therapy Daily Note Patient: Karen Zaidi : 1955 CSN #: [id number] Referring Physician: Augustina Vargas MD Date: 03/28/2025 Diagnosis: Osteoporosis, post-menopausal, M81.0, osteoporosis without pathological fx, M81.8, hx of pelvic fx Z87.81 Treatment Diagnosis: Osteoporosis, R knee pain, R knee OA Onset Date: 09/09/24 PT Insurance Information: Medicare A and B Total # of Visits Approved: 12 Per Physician Order Total # of Visits to Date: 11 No Show: 0 Canceled Appointment: 0 04/01/25 Plan of Care/Recert Due Pre-Treatment Pain: 0/10 Subjective: Pt is doing well, denies pain during daily activities Exercises: Exercise 7: Squat (1RM 25#) 5x5 20# Exercise 8: Tm warm up (per protocol, 30 minues of training) elevation 8% 2.7 mph x30 min Exercise 9: cybex rows (1RM 10 plates) 5x5 8 plates Exercise 11: 12 forward step ups 5x5 Assessment Assessment: Progressed TDM time to 30 min and added 112 step up blocks. Doing well with home activitties, no weight increases today Activity Tolerance Activity Tolerance: Patient tolerated treatment well Patient Education Patient Education: HEP Pt verbalized/demonstrated good understanding: [x] Yes [] No, pt required further clarification. Post Treatment Pain: 0/10 Plan Plan Frequency: 2 Plan weeks: 6 Goals (Total # of Visits to Date: 11) Short Term Goals Time Frame for Short Term Goals: 3 weeks Short Term Goal 1: Patient will be initiated with a HEP--MET Short Term Goal 2: Patient will tolerate 30 minutes of therex/act at 85% of 1RM to improve bone denisty.--MET Fpc Goals Time Frame for Drum Sander Setter Goals : 6 weeks Drum Sander Setter Goal 1: Patient will be independent and compliant with a HEP and gym exercise program. - MET/continued Drum Sander Setter Goal 2: Patient will improve bilateral LE strength to 5/5 in all major joints and planes. Drum Sander Setter Goal 3: Patient will improve 5 time sit to stand time by at least 1 second to indicate improved muscular power. 10 STS 16 sec (03/11/25) Drum Sander Setter Goal 4: Patient will report 70% improvement in overall strength and endurance. Minutes Tracking: Time In: 914 Time Out: 1000 Minutes: 45 Cedrick Rm Date: 03/28/2025 Cosigned by Al Singh, PT at 03/28/2025 1:27 PM EDT documented in this encounter [facility] 03-21-2025 History of Present illness Narrative [facility] Outpatient Physical Therapy Daily Note Patient: Karen Zaidi : 1955 CSN #: [id number] Referring Physician: Augustina Vargas MD Date: 03/21/2025 Diagnosis: Osteoporosis, post-menopausal, M81.0, osteoporosis without pathological fx, M81.8, hx of pelvic fx Z87.81 Treatment Diagnosis: Osteoporosis, R knee pain, R knee OA Onset Date: 09/09/24 PT Insurance Information: Medicare A and B Total # of Visits Approved: 12 Per Physician Order Total # of Visits to Date: 10 No Show: 0 Canceled Appointment: 0 04/01/25 Plan of Care/Recert Due Pre-Treatment Pain: 0/10 Subjective: Pt denies pain. No new complaints Exercises: Exercise 2: LE Knee extension (1RM 115) 5x5 85 lbs / LE knee flexion (1RM 115) 5x5 100 lbs Exercise 3: Leg press (1RM 12 plates) 5x5 9 plates Exercise 4: Chest press on bench (1RM 20#) 5x5 15# / shoulder press on bench (1RM 15#) 5x5 12# Exercise 5: Standing row (bent over counter) (1RM 25#) 5x5 25# Exercise 6: Deadlift (1RM 50#) 5x5 40# Exercise 7: Squat (1RM 25#) 5x5 20# Exercise 8: Tm warm up (per protocol, 30 minues of training) elevation 8% 2.7 mph x15 min Exercise 9: cybex rows (1RM 10 plates) 5x5 8 plates Assessment Assessment: Ptogressed weights with several exercise with sets 5x5. Also progressed 1RM on a few exercisae. Pt is doing progressing with weight and no compalints of pain. Will contiue as planned Activity Tolerance Activity Tolerance: Patient tolerated treatment well Patient Education Patient Education: HEP Pt verbalized/demonstrated good understanding: [x] Yes [] No, pt required further clarification. Post Treatment Pain: 0/10 Plan Plan Frequency: 2 Plan weeks: 6 Goals (Total # of Visits to Date: 10) Short Term Goals Time Frame for Short Term Goals: 3 weeks Short Term Goal 1: Patient will be initiated with a HEP--MET Short Term Goal 2: Patient will tolerate 30 minutes of therex/act at 85% of 1RM to improve bone denisty.--MET Fpc Goals Time Frame for Drum Sander Setter Goals : 6 weeks Fpc Goal 1: Patient will be independent and compliant with a HEP and gym exercise program. - MET/continued Fpc Goal 2: Patient will improve bilateral LE strength to 5/5 in all major joints and planes. Fpc Goal 3: Patient will improve 5 time sit to stand time by at least 1 second to indicate improved muscular power. 10 STS 16 sec (03/11/) Drum Sander Setter Goal 4: Patient will report 70% improvement in overall strength and endurance. Minutes Tracking: Time In: 829 Time Out: 914 Minutes: 45 Timed Code Treatment Minutes: 44 Minutes Cedrick Rm Date: 03/21/2025 Cosigned by Al Singh, PT at 03/21/2025 10:16 AM EDT documented in this encounter [facility] 03-16-2025 Telephone encounter Note 2nd attempt, spoke with patients , gave phone number for patient to call us back to schedule appointment with Sachi Martinez APRN.CNP AFTER her CARD appointment 3rd, mychart reminder to call sent [facility] 03-16-2025 Miscellaneous Notes 2nd attempt, spoke with patients , gave phone number for patient to call us back to schedule appointment with Sachi Martinez APRN.CNP AFTER her CARD appointment 3rd, mychart reminder to call sent 1st, lvm for patient to call back and schedule with Sachi Martinez APRN.CNP Called and spoke with patient, scheduled sooner for Cardiology in [place] Scheduled for 06/07/2025 in [place]. Patient has been again added to the wait list and marked high priority All we can do is schedule what we have and place patient on wait list. Patient is scheduled with Dr Bowens in July which is her soonest available. If she is willing to travel she might see another gen card sooner but otherwise we have nothing available here in [place] at this time. Please help Karen to reschedule cardiology apt sooner, May if possible, then schedule a follow up apt with me in March. Thank you. documented in this encounter [facility] 03-16-2025 History of Present illness Narrative [facility] Outpatient Physical Therapy Daily Note Patient: Karen Zaidi : 1955 [facility] #: [id number] Referring Physician: Augustina Vargas MD Date: 03/16/2025 Diagnosis: Osteoporosis, post-menopausal, M81.0, osteoporosis without pathological fx, M81.8, hx of pelvic fx Z87.81 Treatment Diagnosis: Osteoporosis, R knee pain, R knee OA Onset Date: 09/09/24 PT Insurance Information: Medicare A and B Total # of Visits Approved: 12 Per Physician Order Total # of Visits to Date: 9 No Show: 0 Canceled Appointment: 0 04/01/25 Plan of Care/Recert Due Pre-Treatment Pain: 0/10 Subjective: Pt is feeling well, o issues frm last session Exercises: Exercise 2: LE Knee extension (1RM 115) 5x5 85 lbs / LE knee flexion (1RM 100) 5x5 100 lbs Exercise 3: Leg press (1RM 12 plates) 5x5 9 plates Exercise 4: Chest press on bench (5RM 15#) 5x5 12# / shoulder press on bench (1RM 15#) 5x5 12# Exercise 5: Standing row (bent over counter) (1RM 25#) 5x5 25# Exercise 6: Deadlift (1RM 50#) 5x5 40# Exercise 7: Squat (1RM 20#) 5x5 15# Exercise 8: Tm warm up (per protocol, 30 minues of training) elevation 8% 2.7 mph x15 min Exercise 9: cybex rows (1RM 9 plates) 5x5 7 plates Assessment Assessment: Pt is doing well and denies pain. no complaints with exercise today. Plan to progress exercise and weights next session Activity Tolerance Activity Tolerance: Patient tolerated treatment well Patient Education Patient Education: HEP Pt verbalized/demonstrated good understanding: [x] Yes [] No, pt required further clarification. Post Treatment Pain: 0/10 Plan Plan Frequency: 2 Plan weeks: 6 Goals (Total # of Visits to Date: 9) Short Term Goals Time Frame for Short Term Goals: 3 weeks Short Term Goal 1: Patient will be initiated with a HEP--MET Short Term Goal 2: Patient will tolerate 30 minutes of therex/act at 85% of 1RM to improve bone denisty.--MET Drum Sander Setter Goals Time Frame for Fpc Goals : 6 weeks Fpc Goal 1: Patient will be independent and compliant with a HEP and gym exercise program. - MET/continued Drum Sander Setter Goal 2: Patient will improve bilateral LE strength to 5/5 in all major joints and planes. Drum Sander Setter Goal 3: Patient will improve 5 time sit to stand time by at least 1 second to indicate improved muscular power. 10 STS 16 sec (03/11/25) Drum Sander Setter Goal 4: Patient will report 70% improvement in overall strength and endurance. Minutes Tracking: Time In: 914 Time Out: 1000 Minutes: 45 Timed Code Treatment Minutes: 44 Minutes Cedrick Rm Date: 03/16/2025 Cosigned by Al Singh, PT at 03/16/2025 7:17 PM EDT documented in this encounter [facility] 03-14-2025 History of Present illness Narrative [facility] Outpatient Physical Therapy Daily Note Patient: Karen Zaidi : 1955 CSN #: [id number] Referring Physician: Augustina Vargas MD Date: 03/14/2025 Diagnosis: Osteoporosis, post-menopausal, M81.0, osteoporosis without pathological fx, M81.8, hx of pelvic fx Z87.81 Treatment Diagnosis: Osteoporosis, R knee pain, R knee OA Onset Date: 09/09/24 PT Insurance Information: Medicare A and B Total # of Visits Approved: 12 Per Physician Order Total # of Visits to Date: 8 No Show: 0 Canceled Appointment: 0 04/01/25 Plan of Care/Recert Due Pre-Treatment Pain: 0/10 Subjective: Pt deies pain, no complaints from previous session Exercises: Exercise 1: HEP: squats to chair, sink exercises including march, hip abduction, heel/toe raises, counter push-ups, prone lift upper back 10x10 Exercise 2: LE Knee extension (1RM 115) 5x5 ~97 lbs (85 plate) / LE knee flexion (IRM 100) 5x5 ~85 lbs Exercise 3: Leg press (1RM 11 plates) 5x5 9 plates Exercise 4: Chest press on bench (1RM 15#) 5x5 12# / shoulder press on bench (1RM 15#) 5x5 12# Exercise 5: Standing row (bent over counter) (1RM 25#) 5x5 20# Exercise 6: Deadlift (1RM 50#) 5x5 40# Exercise 7: Squat (1RM 20#) 5x5 15# Exercise 8: Tm warm up (per protocol, 30 minues of training) elevation 8% 2.7 mph x12 min Exercise 9: cybex rows (1RM 8 plates) 5x5 7 plates Assessment Assessment: Pt denies pain. Functional strengthening completed with heay weights and low reps. Pt with no complaints following session. Pt walking daily at home seveal miles. Will continue as planned Activity Tolerance Activity Tolerance: Patient tolerated treatment well Patient Education Patient Education: HEP Pt verbalized/demonstrated good understanding: [x] Yes [] No, pt required further clarification. Post Treatment Pain: 0/10 Plan Plan Frequency: 2 Plan weeks: 6 Goals (Total # of Visits to Date: 8) Short Term Goals Short Term Goal 1: Patient will be initiated with a HEP--MET Short Term Goal 2: Patient will tolerate 30 minutes of therex/act at 85% of 1RM to improve bone denisty.--MET Drum Sander Setter Goals Time Frame for Drum Sander Setter Goals : 6 weeks Fpc Goal 1: Patient will be independent and compliant with a HEP and gym exercise program. - MET/continued Fpc Goal 2: Patient will improve bilateral LE strength to 5/5 in all major joints and planes. Drum Sander Setter Goal 3: Patient will improve 5 time sit to stand time by at least 1 second to indicate improved muscular power. 10 STS 16 sec (03/11/25) Fpc Goal 4: Patient will report 70% improvement in overall strength and endurance. Minutes Tracking: Time In: 915 Time Out: 1000 Minutes: 44 Timed Code Treatment Minutes: 43 Minutes Cedrick Rm Date: 03/14/2025 Cosigned by Al Singh, PT at 03/14/2025 11:16 AM EDT documented in this encounter [facility] 03-11-2025 History of Present illness Narrative Physical Therapy [facility] Outpatient Physical Therapy Daily Note Patient: Karen Zaidi : 1955 [facility] #: [id number] Referring Physician: Augustina Vargas MD Date: 03/11/2025 Treatment Diagnosis: Osteoporosis, R knee pain, R knee OA Onset Date: 09/09/24 PT Insurance Information: Medicare A and B Total # of Visits Approved: 12 Per Physician Order Total # of Visits to Date: 7 No Show: 0 Canceled Appointment: 0 04/01/25 Plan of Care/Recert Due Pre-Treatment Pain: 0/10 Subjective: Pt denied pain or soreness following last therapy session. Notes she is not used to being up and exer this early in the morning and unsure how she will tolerate therapy this date. Exercises: Exercise 2: LE Knee extension (1RM 115) 5x5 ~97 lbs (85 plate) / LE knee flexion (IRM 100) 5x5 ~85 lbs Exercise 3: Leg press (1RM 11 plates) 5x5 9 plates Exercise 4: Chest press on bench (1RM 15#) 5x5 12# / shoulder press on bench (1RM 15#) 5x5 12# Exercise 6: Deadlift (1RM 50#) 5x5 40# Exercise 8: Tm warm up (per protocol, 30 minues of training) elevation 8% 2.6 mph x9 min Exercise 9: cybex rows (1RM 8 plates) 5x5 7 plates Exercise 10: can add additional exer such as hip flexors/ext/abd, bicep and tricep. Increase weight as exer becomes easier. Assessment Assessment: Pt STS from chair no UE support x10 reps in 16 seconds. Vcs provided with deadlifts for neutral spine and for activating core to support lumbar. Vcs given with shld press for core activation to maintain upright posture, pt having L UE fatigue this date with completion. Pt demoing good technique with knee flexion/ext on star trac this date. Activity Tolerance Activity Tolerance: Patient tolerated treatment well Patient Education Patient Education: Educated pt to stretch throughout the day if increased soreness occurs. Pt verbalized/demonstrated good understanding: [x] Yes [] No, pt required further clarification. Post Treatment Pain: 0/10 Plan Plan Frequency: 2 Plan weeks: 6 Goals (Total # of Visits to Date: 7) Short Term Goals Time Frame for Short Term Goals: 3 weeks Short Term Goal 1: Patient will be initiated with a HEP--MET Short Term Goal 2: Patient will tolerate 30 minutes of therex/act at 85% of 1RM to improve bone denisty.--MET Drum Sander Setter Goals Time Frame for Drum Sander Setter Goals : 6 weeks Fpc Goal 1: Patient will be independent and compliant with a HEP and gym exercise program. - MET/continued Fpc Goal 2: Patient will improve bilateral LE strength to 5/5 in all major joints and planes. Drum Sander Setter Goal 3: Patient will improve 5 time sit to stand time by at least 1 second to indicate improved muscular power. 10 STS 16 sec (03/11/25) Drum Sander Setter Goal 4: Patient will report 70% improvement in overall strength and endurance. Minutes Tracking: Time In: 756 Time Out: 841 Minutes: 45 Timed Code Treatment Minutes: 42 Minutes Giovanna Wu PTA Date: 03/11/2025\ Cosigned by Al Singh PT at 03/11/2025 9:00 AM EDT documented in this encounter [facility] 03-09-2025 History of Present illness Narrative Physical Therapy [facility] Outpatient Physical Therapy Daily Note Patient: Karen Zaidi : 1955 CSN #: [id number] Referring Physician: Augustina Vargas MD Date: 03/09/2025 Treatment Diagnosis: Osteoporosis, R knee pain, R knee OA Onset Date: 09/09/24 PT Insurance Information: Medicare A and B Total # of Visits Approved: 12 Per Physician Order Total # of Visits to Date: 6 No Show: 0 Canceled Appointment: 0 04/01/25 Plan of Care/Recert Due Pre-Treatment Pain: 0/10 Subjective: Pt states she just got down walking 3 miles and doing steps at stadium (678 steps), notes she attempts to complete 3x weekly pending weather. Pt denied soreness or pain following last therapy session. Pt notes she has been completing HEP at home with no concerns. Exercises: Exercise 2: LE Knee extension (1RM 115) 5x5 ~97 lbs (85 plate) / LE knee flexion (IRM 100) 5x5 ~100 lbs Exercise 4: Chest press on bench (1RM 15#) 5x5 12# / shoulder press on bench (1RM 15#) 5x5 12# Exercise 5: Standing row (bent over counter) (1RM 25#) 5x5 20# Exercise 7: Squat (1RM 20#) 5x5 15# Exercise 8: Tm warm up (per protocol, 30 minues of training) elevation 8% 2.6 mph x8 min Exercise 9: cybex rows (1RM 8 plates) 5x5 7 plates Assessment Assessment: Performed LE and UE exer alternating between throughout therapy session as pt having increased LE fatigue from HEP completed prior to therapy session. Added hold with cybex rows this date for increasing difficulty with completion. Cues provided with bent over rows to focus on scapular activation. Pt having increased fatigue with knee flexion/ext. Activity Tolerance Activity Tolerance: Patient tolerated treatment well, Patient limited by fatigue Patient Education Patient Education: Educated pt to continue with walking/stair program per tolerance. Pt verbalized/demonstrated good understanding: [x] Yes [] No, pt required further clarification. Post Treatment Pain: 0/10 Pt having general fatigue. Plan Plan Frequency: 2 Plan weeks: 6 Goals (Total # of Visits to Date: 6) Short Term Goals Time Frame for Short Term Goals: 3 weeks Short Term Goal 1: Patient will be initiated with a HEP--MET Short Term Goal 2: Patient will tolerate 30 minutes of therex/act at 85% of 1RM to improve bone denisty.--MET Fpc Goals Time Frame for Drum Sander Setter Goals : 6 weeks Fpc Goal 1: Patient will be independent and compliant with a HEP and gym exercise program. - MET/continued Drum Sander Setter Goal 2: Patient will improve bilateral LE strength to 5/5 in all major joints and planes. Drum Sander Setter Goal 3: Patient will improve 5 time sit to stand time by at least 1 second to indicate improved muscular power. Fpc Goal 4: Patient will report 70% improvement in overall strength and endurance. Minutes Tracking: Time In: 1430 Time Out: 1514 Minutes: 44 Timed Code Treatment Minutes: 41 Minutes Giovanna Wu, ANIMAL SCIENCE PROFESSOR Date: 03/09/2025 Cosigned by Al Singh, PT at 03/09/2025 6:51 PM EDT documented in this encounter [facility] 03-09-2025 Telephone encounter Note 1st, lvm for patient to call back and schedule with Sachi Martinez APRN.BUSINESS INTERN [facility] 03-08-2025 History of Present illness Narrative Images from the original note were not included. [facility] [id number] FOR CHRONIC PELVIC PAIN OUTPATIENT VISIT DATE 03/08/2025 OUTPATIENT VISIT TYPE FOLLOW UP CHIEF COMPLAINT follow up HISTORY OF PRESENT ILLNESS Karen is a 69 year old female who is in today for follow up. Since last visit: Pt reports that she is completing PT at [place] and is doing a multitude of exercises such as 95 lb leg press, chest press, deadlift and notes great improvement with her hip pain and PMH of Osteoporosis and has been tolerating this exercises well. Pt reports that they have been working on PT and will incorporate PFPT back into her regimen. Pt seen Dr Angelo on 02/08/25 and it was planned to start to start her on Evenity but she will clearance from Cardiology prior to starting this medication. Pt reports that she has not had any pelvic pain within the last month as it took a while for the medication to kick in. Pt taking Motrin and Flexeril PRN. Had pelvic fractutres aug 2024 Saw PHYSICAL THERAPY Wt bearing Suppposed to start evenity 3 wks w wt exercises And feels the difference Does leg press machine Intensity of pain: None Average Pain level: 0 on a scale of 0-10 Emergency room visits for pain since last visit: No Level of physical activity and mobility: I go up to the school and do 3 laps around the track and go and down the bleaches at least 3x/week Quality of sleep: good Mood: good Side effects of medications for pain: none Pain Scales SUMMARY FROM LAST VISIT Date: [facility] 12/08/24 ASSESSMENT/PLAN Encounter Diagnosis ICD-10-CM 1. High-tone pelvic floor dysfunction M62.89 2. Trigger point of abdomen R10.9 TRIGGER POINT INJECTION MULTI 1-2 MUSCLE GR 3. Myalgia, other site M79.18 TRIGGER POINT INJECTION MULTI 1-2 MUSCLE GR 4. Other osteoporosis without current pathological fracture M81.8 CONSULT TO RHEUM/IMMUN DISEASE Recovering from multiple hip fractures Takes caltrate daily Continues to have constant left lower abdomen pain Restarted PFPT Chronic constipation, take miralax once per week Vaginal Botox and abdominal TPI done today Reviewed Dexa scan in depth with pt and results are concerning for osteoporosis refer to dr bowman for opinion and tx options Continue PFPT Continue estrogen cream Follow up in 3 months for repeat TPI TREATMENT HISTORY No specialty comments available. PHYSICAL EXAM BP 120/66 LMP (LMP Unknown) Physical Exam General: The patient is a well-appearing female in no acute distress. Examination RV exam - deferred LABS/IMAGING: ASSESSMENT Encounter Diagnosis ICD-10-CM 1. High-tone pelvic floor dysfunction M62.89 2. Trigger point of abdomen R10.9 3. Myalgia, other site M79.18 PLAN Ostepoorosis Seeing ortho for knee Pelvic pain imrpved Fu as needed Augustina Vargas MD Section of Chronic Pelvic Pain 03/08/2025 9:44 AM ORDERS PLACED . 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 Vaginal botox done on: 07/06/2024, 12/08/2024 2. Abdominal TPI done on: 07/06/2024, 12/08/2024 Nonhormonal Medications 1. Flexeril 2. gabapentin 300 mg 3. motrin Hormonal medications (IUD, control pill, GNRH) 1. Esterase cream Services (GI, urology, pain psych,PFPT) 1. PFPT documented in this encounter [facility] 03-08-2025 Note HNO ID: [id number] Author: AUGUSTINA VARGAS MD Service: ? Author Type: Physician Type: Progress Notes Filed: 03/14/2025 23:17 Note Text: [id number] FOR CHRONIC PELVIC PAIN OUTPATIENT VISIT DATE 03/08/2025 OUTPATIENT VISIT TYPE FOLLOW UP CHIEF COMPLAINT follow up HISTORY OF PRESENT ILLNESS Karen is a 69 year old female who is in today for follow up. Since last visit: Pt reports that she is completing PT at [place] and is doing a multitude of exercises such as 95 lb leg press, chest press, deadlift and notes great improvement with her hip pain and PMH of Osteoporosis and has been tolerating this exercises well. Pt reports that they have been working on PT and will incorporate PFPT back into her regimen. Pt seen Dr Angelo on 02/08/25 and it was planned to start to start her on Evenity but she will clearance from Cardiology prior to starting this medication. Pt reports that she has not had any pelvic pain within the last month as it took a while for the medication to kick in. Pt taking Motrin and Flexeril PRN. Had pelvic fractutres aug 2024 Saw PHYSICAL THERAPY Wt bearing Suppposed to start evenity 3 wks w wt exercises And feels the difference Does leg press machine Intensity of pain: None Average Pain level: 0 on a scale of 0-10 Emergency room visits for pain since last visit: No Level of physical activity and mobility: I go up to the school and do 3 laps around the track and go and down the bleaches at least 3x/week Quality of sleep: good Mood: good Side effects of medications for pain: none Pain Scales SUMMARY FROM LAST VISIT Date: [facility] 12/08/24 ASSESSMENT/PLAN Encounter Diagnosis ICD-10-CM 1. High-tone pelvic floor dysfunction M62.89 2. Trigger point of abdomen R10.9 TRIGGER POINT INJECTION MULTI 1-2 MUSCLE GR 3. Myalgia, other site M79.18 TRIGGER POINT INJECTION MULTI 1-2 MUSCLE GR 4. Other osteoporosis without current pathological fracture M81.8 CONSULT TO RHEUM/IMMUN DISEASE Recovering from multiple hip fractures Takes caltrate daily Continues to have constant left lower abdomen pain Restarted PFPT Chronic constipation, take miralax once per week Vaginal Botox and abdominal TPI done today Reviewed Dexa scan in depth with pt and results are concerning for osteoporosis refer to dr bowman for opinion and tx options Continue PFPT Continue estrogen cream Follow up in 3 months for repeat TPI TREATMENT HISTORY No specialty comments available. PHYSICAL EXAM BP 120/66 LMP (LMP Unknown) Physical Exam General: The patient is a well-appearing female in no acute distress. Examination RV exam - deferred LABS/IMAGING: ASSESSMENT Encounter Diagnosis ICD-10-CM 1. High-tone pelvic floor dysfunction M62.89 2. Trigger point of abdomen R10.9 3. Myalgia, other site M79.18 PLAN Ostepoorosis Seeing ortho for knee Pelvic pain imrpved Fu as needed Augustina Vargas MD Section of Chronic Pelvic Pain 03/08/2025 9:44 AM ORDERS PLACED . 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 Vaginal botox done on: 07/06/2024, 12/08/2024 2. Abdominal TPI done on: 07/06/2024, 12/08/2024 Nonhormonal Medications 1. Flexeril 2. gabapentin 300 mg 3. motrin Hormonal medications (IUD, control pill, GNRH) 1. Esterase cream Services (GI, urology, pain psych,PFPT) 1. PFPT [facility] 03-03-2025 Telephone encounter Note Called and spoke with patient, scheduled sooner for Cardiology in [place] Scheduled for 06/07/2025 in [place]. Patient has been again added to the wait list and marked high priority [facility] 03-01-2025 History of Present illness Narrative Physical Therapy [facility] Outpatient Physical Therapy Daily Note Patient: Karen Zaidi : 1955 CSN #: [id number] Referring Physician: Augustina Vargas MD Date: 03/01/2025 Treatment Diagnosis: Osteoporosis, R knee pain, R knee OA Onset Date: 09/09/24 PT Insurance Information: Medicare A and B Total # of Visits Approved: 12 Per Physician Order Total # of Visits to Date: 4 No Show: 0 Canceled Appointment: 0 04/01/25 Plan of Care/Recert Due Pre-Treatment Pain: 02/19 Subjective: Patient reports increase stiff and soreness in back today, has knee brace donned on left knee. Exercises: Exercise 1: HEP: squats to chair, sink exercises including march, hip abduction, heel/toe raises, counter push-ups, prone lift upper back 10x10 Exercise 2: LE extension (1RM 115) 5x5 ~97 lbs / LE flexion (IRM 100) 5x5 ~85 lbs Exercise 3: Leg press (1RM 11 plates) 5x5 9 plates Exercise 4: Chest press (1RM 15#) 5x5 12# / shoulder press (1RM 15#) 5x5 10# assistance on L UE--shoulder press this date: 1minute rest between sets 3-5 Exercise 5: Standing row (1RM 25#) 5x5 20#--15# this date Exercise 6: Deadlift (1RM 50#) 5x5 40# Exercise 7: Squat (1RM 20#) 5x5 17# Exercise 8: Tm warm up (per protocol, 30 minues of training) Exercise 9: cybex rows (1RM 8 plates) 5x5 7 plates Assessment Body Structures, Functions, Activity Limitations Requiring Skilled Therapeutic Intervention: Decreased functional mobility , Decreased ADL status, Decreased ROM, Decreased strength, Decreased endurance, Decreased balance, Decreased high-level IADLs, Increased pain Assessment: Completed 5x5 protocol with ther ex as indicated on flow sheet. Held additions secondary to moderate soreness today. Pt required assitance with OH shoulder press in first 2-3 reps. Reduce weight of OH shoulder press and instructed in longer rest breaks with improved form noted after but still fatigued in later reps. Vc on proper hip hinging with glut strengthening excercsies to reduce lumbar compensations with fair carryover. Activity Tolerance Activity Tolerance: Patient tolerated treatment well, Patient limited by fatigue Patient Education Patient Education: PT POC, HEP, LIFTMOR exercise rationale Pt verbalized/demonstrated good understanding: [x] Yes [] No, pt required further clarification. Post Treatment Pain: 11/22 Plan Plan Frequency: 2 Plan weeks: 6 Goals (Total # of Visits to Date: 4) Short Term Goals Time Frame for Short Term Goals: 3 weeks Short Term Goal 1: Patient will be initiated with a HEP--MET Short Term Goal 2: Patient will tolerate 30 minutes of therex/act at 85% of 1RM to improve bone denisty.--MET Fpc Goals Time Frame for Fpc Goals : 6 weeks Drum Sander Setter Goal 1: Patient will be independent and compliant with a HEP and gym exercise program. Drum Sander Setter Goal 2: Patient will improve bilateral LE strength to 5/5 in all major joints and planes. Fpc Goal 3: Patient will improve 5 time sit to stand time by at least 1 second to indicate improved muscular power. Fpc Goal 4: Patient will report 70% improvement in overall strength and endurance. Minutes Tracking: Time In: 08 Time Out: 911 Minutes: 47 Timed Code Treatment Minutes: 47 Minutes Garrison العراقي PTA Date: 03/01/2025 Cosigned by Al Singh, PT at 03/01/2025 9:23 AM EDT documented in this encounter [facility] 02-25-2025 History of Present illness Narrative [facility] Outpatient Physical Therapy Daily Note Patient: Karen Zaidi : 1955 CSN #: [id number] Referring Physician: Augustina Vargas MD Date: 02/25/2025 Treatment Diagnosis: Osteoporosis, R knee pain, R knee OA Onset Date: 09/09/24 PT Insurance Information: Medicare A and B Total # of Visits Approved: 12 Per Physician Order Total # of Visits to Date: 3 No Show: 0 Canceled Appointment: 0 04/01/25 Plan of Care/Recert Due Pre-Treatment Pain: 0/10 Subjective: Pt arrives with knee brace on, reports no pain prior to session, mild stiffness. Exercises: Exercise 1: HEP: squats to chair, sink exercises including march, hip abduction, heel/toe raises, counter push-ups, prone lift upper back 10x10 Exercise 2: LE extension (1RM 115) 5x5 ~97 lbs / LE flexion (IRM 100) 5x5 ~85 lbs Exercise 3: Leg press (1RM 11 plates) 5x5 9 plates Exercise 4: Chest press (1RM 15#) 5x5 12# / shoulder press (1RM 15#) 5x5 12# assistance on L UE--shoulder press this date Exercise 5: Standing row (1RM 25#) 5x5 20#--15# this date Exercise 7: Squat (1RM 20#) 5x5 17# Exercise 8: Tm warm up (per protocol, 30 minues of training) Exercise 9: cybex rows (1RM 8 plates) 5x5 7 plates Assessment Assessment: Completed 1RM testing with pt able to complete multiple repetitions at 1RM rated weight, but limited by technique and to reduce risk of injury did not load movements further. Completed 5x5 per protocol for leg press, chest press,seated rows and shoulder press with remaining time. L side especially weak, limited by fatigue. Pt able to complete reps of shoulder press without assistance needed this date. Will continue to progress as tolerated. Activity Tolerance Activity Tolerance: Patient tolerated treatment well, Patient limited by fatigue Patient Education Patient Education: PT POC, HEP, LIFTMOR exercise rationale Pt verbalized/demonstrated good understanding: [x] Yes [] No, pt required further clarification. Post Treatment Pain: 0/10 Plan Plan Frequency: 2 Plan weeks: 6 Goals (Total # of Visits to Date: 3) Short Term Goals Time Frame for Short Term Goals: 3 weeks Short Term Goal 1: Patient will be initiated with a HEP--MET Short Term Goal 2: Patient will tolerate 30 minutes of therex/act at 85% of 1RM to improve bone denisty.--MET Drum Sander Setter Goals Time Frame for Fpc Goals : 6 weeks Fpc Goal 1: Patient will be independent and compliant with a HEP and gym exercise program. Fpc Goal 2: Patient will improve bilateral LE strength to 5/5 in all major joints and planes. Fpc Goal 3: Patient will improve 5 time sit to stand time by at least 1 second to indicate improved muscular power. Fpc Goal 4: Patient will report 70% improvement in overall strength and endurance. Minutes Tracking: Time In: 1030 Time Out: 1112 Minutes: 42 Trudy Garner PTA Date: 02/25/2025 Cosigned by Al Singh, PT at 02/25/2025 2:26 PM EDT documented in this encounter [facility] 02-18-2025 Telephone encounter Note All we can do is schedule what we have and place patient on wait list. Patient is scheduled with Dr Bowens in July which is her soonest available. If she is willing to travel she might see another gen card sooner but otherwise we have nothing available here in [place] at this time. [facility] 02-14-2025 Telephone encounter Note Please help Karen to reschedule cardiology apt sooner, May if possible, then schedule a follow up apt with me in March. Thank you. [facility] 02-11-2025 Telephone encounter Note Attempted to reach patient to see if she is using Flexeril medication, if she is needing to get medication refilled, and if prior auth is needed, and if so, ask patient for Rx Bin, Rx Group, and PCN so we can complete the PA. Left VM for her to return call to office to discuss with a nurse. Cielo Gomez RN [facility] 02-11-2025 Miscellaneous Notes Attempted to reach patient to see if she is using Flexeril medication, if she is needing to get medication refilled, and if prior auth is needed, and if so, ask patient for Rx Bin, Rx Group, and PCN so we can complete the PA. Left VM for her to return call to office to discuss with a nurse. Cielo Gomez RN Reason for call: Other Provider name: Dr Vargas Additional comments: Cyclobenzaprine need PA. Letter scan into Contactual. Recommendation: routed to nurse triage pool Last visit in this department: Visit date not found Last distance health visit in this department: Visit date not found Next visit in this department: Visit date not found Appointments for Next 60 Days Date Time Provider Location Dept Phone 03/08/2025 3:30 PM AUGUSTINA VARGAS d [phone] documented in this encounter [facility] 02-10-2025 Telephone encounter Note Reason for call: Other Provider name: Dr Vargas Additional comments: Cyclobenzaprine need PA. Letter scan into Contactual. Recommendation: routed to nurse triage pool Last visit in this department: Visit date not found Last distance health visit in this department: Visit date not found Next visit in this department: Visit date not found Appointments for Next 60 Days Date Time Provider Location Dept Phone 03/08/2025 3:30 PM AUGUSTINA VARGAS Bld [phone] [facility] Work Phone: 02-08-2025 Instructions Sachi Martinez APRN.BUSINESS INTERN - 02/08/2025 11:44 AM EDT Add vit D 1,000 units once daily with food and continue Caltrate, also vitamin B complex. Message Sachi Martinez on Mychart after you see cardiology. Recheck vitamin D in 3 months. documented in this encounter [facility] 02-08-2025 History of Present illness Narrative Images from the original note were not included. Osteoporosis and Metabolic Bone Disease FOLLOW UP VISIT Referring Provider: Date of Service: 02/08/2025 Gender: female Ethnicity: White Age: [age] year old Chief Complaint: Follow Up (Discuss Dexa results/treatment) Last Rheumatology visit: 02/02/2025 (with Gi Siddiqi) Karen Zaidi is a 69 year old White female who presents on 02/08/2025 for in person visit for follow up of Osteoporosis. INTERVAL HISTORY February 08, 2025 Ms. Zaidi is here for f/u Osteoporosis, review results and discussing medication She would like to start on OP med. No new concerns from last visit No interim fractures Has all dental implants. Follows with dentist regularly, no jaw pain, no infections. RAPID 3 Méndez Activities of Daily Living 01/31/2025 9:25 PM Dress self? Without ANY difficulty Get in and out of bed? With SOME difficulty Walk outdoors? With SOME difficulty Wash and dry body? Without ANY difficulty Get in and out of car? With SOME difficulty Impression Diagnoses: (M81.0) Osteoporosis, post-menopausal (primary encounter diagnosis) (I25.10) Coronary artery disease involving nondalton coronary artery of nondalton heart without angina pectoris (Z82.49) Family history of cardiovascular disease (Z87.81) History of fracture of pelvis (Z82.62) Family history of osteoporosis in mother (E28.319) Early menopause occurring in patient age younger than 45 years (E55.9) Vitamin D deficiency (Z71.2) Encounter to discuss test results (Z71.89) Encounter for medication review and counseling (Z71.89) Counseling on health promotion and disease prevention The patient has: osteoporosis Patient has a history of fracture(s) Pelvic Fracture Most Recent BMD Date: 02/02/25 LS: 0.927 g/cm2 Hip - Right: 0.602 g/cm2 Hip - Left: 0.624 g/cm2 TBS: 1.187 g/cm2 LS T-Score: -2.3 LS Z-Score: -0.6 no previous value R Hip T-Score: -3.2 R Hip Z-Score: -1.9 no previous value L Hip T-Score: -3 L Hip Z-Score: -1.4 no previous value degraded < 1.231 BMD Comment: I did not include L1 due incr degen changes and the DXA JOAN did not include the superior aspect of L1 Severe Osteoporosis The patient has low bone density in the range of Osteoporosis, according to WHO classification. If patient has had fragility fracture(s), clinical diagnosis is Severe Osteoporosis. Prior history of fragility fracture: pelvis after fall from standing ht -Additional risk factors include: Postmenopausal female, very early menopause, age, previous smoking history, family history-probable FH of osteoporosis. Search in published literature cites that there has been a correlation found between the elongation of the styloid process and systemic osteoporosis. Ref: Isabel PC, Jed FC, Bebeto RAMON, Ulises SA, Ra FJ, Nani R. Elongated styloid process and atheroma in panoramic radiography and its relationship with systemic osteoporosis and osteopenia. Osteoporos Int. 2009;21(5):831-6. doi: 10.1007/p87436-510-4947-o. Epub 2008May 05. PMID: [id number]. Her alk phos levels have not been low. She has no other findings for hypophosphatasia. There are no findings for osteogenesis imperfecta or other inherited connective tissue disease. We were able to schedule patient for DXA on 02/02/2025. I reviewed the films and included my professional opinion on the scan results. DXA 02/02/2025, lowest T-score is -3.2 (Rt TH). Patient has not been treated. This was first scan on this machine TBS spine: Degraded microarchitecture Her FRAX scores are very high for both MOF and HIP fracture risk Her fracture risk based on BMD and TBS is : Very High Pharmacologic therapy is indicated and recommended this patient. Will need to complete metabolic bone eval first and obtain dental clearance, with details under the plan section. Advised on indication for completing metabolic bone testing and evaluation and completed. Results reviewed. I reviewed risk for future fragility fractures and bone loss. Reviewed indication and guideline recommendations for pharmacologic therapy Reviewed healthy lifestyle and role of diet and exercise and stress on Osteoporosis and bone loss. I have discussed FDA approved medications Written information provided to patient on OP, Ca/D, BMD, ONJ, Bone health and recommendations, OP medications. Also provided information on web for additional information if necessary, CC, NOF and ISCD and [facility]. She has osteoarthrosis involving hands and knees. Her right knee appears to have advanced [id number] osteoarthrosis and is somewhat impacting her gait. I offered patient referral to orthopedic surgeon to discuss surgical options and care. She will also receive physical therapy and braces per orthopedics. Also reviewed conservative care and preventive measures. Patient denies current smoking. Osteoporosis FRAX Risk Factors Fracture(s) Pelvic Fracture Family History of osteoporosis mother (Comment: Suspects her mother, states was really hunched back , was not officially diagnosed) No parent with a hip fracture Not a current smoker (Comment: Quit 25 yrs ago, smoked for 15 yrs) Glucocorticoid use No rheumatoid arthritis Secondary osteoporosis No type 1 diabetes (IDDM) no OI or osteodystrophy No hyperthyroidism Early menopause (< 45 years old) No chronic malnutrition no malabsorption No chronic liver disease No alcohol use more than 3 units per day FRAX (WHO 10 Year Fracture Risk) Date of FRAX assessment: 02/02/25 Hip: 9.2% Major Osteoporotic: 27.7% Plan PLAN/RECOMMENDATION: Reviewed indication for orders with instructions OP Medication: plan for Evenity 210 mg Sq once a month for 12 months She has no history of DE or stroke and denies risk factors. Due to her FH, would prefer to obtain clearance from Cardiology. Will obtain Cardiology consult for CV clearance As prev. discussed, her med of choice would be an osteoanabolic agent, especially given her younger age, history of fragility fractures, and very low T-scores, degraded microarchitecture on TBS and very high FRAX scores. In osteo anabolic agents would improve patient's chances for a drug holiday after course of therapy. Antiresorptive agents such as bisphosphonates would not have that same advantage. Prolia especially if used more than 2 years would risk being lifelong and so best deferred in younger patients with osteoporosis. Prior to antiresorptive agents with obtaining dental clearance from her dentist. Of the osteoanabolic agents, Evenity would be favored over PTH analog such as Forteo and timeless. 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 For Evenity I would need to obtain approval from cardiology, due to its reported potential cardiovascular risk and blackbox warning and her reported history of arteriosclerosis. The patient denies history of DE or stroke and does not report high risk for cardiovascular events otherwise. After 12 months of Evenity, can transition to 1 to 2 yrs of Prolia then IV Reclast, with plan for drug holiday eventually. - A sequential therapy starting with a bone-forming/osteoanabolic agent followed by an anti-resorptive agent should be considered for women and men at a very high risk of fracture (strong recommendation). Ref: -Cruz I, Dorie S, Zoey P. Using sequential pharmacotherapy for the treatment of osteoporosis: an update of the literature. Expert Opin Pharmacother. 2022-Sep;24(18):4305-3174. doi: 10.1080/30018532.3.5725025. Epub 2023Oct 17. PMID: [id number]. -Rae F, Brayan B, Rere BZ. Treatment Sequence for Osteoporosis. Endocr Pract. 2023;30(5):490-496. doi: 10.1016/j.eprac.2023.01.014. Epub 2023Nov 14. PMID: [id number]. -Marcelo NR, Jimy C, Steve collier O, Germaine B, Al-Ike N, Pee N, Jim M, Noemy MM, Yazmin B, Juan C, Dread W, Bertha P, Lola M, Harsha JA, Zaina JM, Beryl A, Seng O, Cyndee A, Junie S, Joe R, Jon E, Cj A, Adrian Rocha MC, Missael RP, Sabelizabeth S, Al-Clayton Y, Mariya S, Akosua N, Myron R, Rod C, Gissell CrookY, Antwon AJ. Evidence-Based Guideline for the management of osteoporosis in men. Silvia Rev Rheumatol. 2023;20(4):241-251. doi: 10.1038/k14114-380-09968-6. Epub 2023Dec 24. PMID: 89810220. -Elvira Mcbride, Larisa Abdi, Frederick Bell, Italo Louis, Elham May, Tita Schmidt, Kong Storey, Lisha MimsRegency Hospital Cleveland Eastambreen Mann, Jair Taylor, Lucas Quiles, Sandor Nava, Arleen tSeele, Jai Roth, Domingo Danielle, Ligia Oconnell, Phillip Pang, Amelia Jacobs, Derek Escalante, Goal-directed osteoporosis treatment: ASBMR/BHOF task force position statement 2023, Journal of Bone and Mineral Research, Volume 39, Issue 10, July 2024, Pages 0662-6053, [email or web address]://doi.org/10.1093/jbmr/zjae 119 Reviewed with patient Osteoporosis/Osteopenia diseases and treatment. Review of Osteoporosis medications Medications that prevent bone loss and Osteoporosis fractures: -Bisphosphonates are a group of medications that are available as pills (oral) or injected/infused in the vein as intravenous (IV) -Oral bisphosphonates (such as Actonel/risedronate, Boniva/ibandronate, Fosamax/alendronate), these are taken either once a week or once a month (depending on med chosen), first thing in the morning on an empty stomach with a glass of pure water and would need to stay upright and avoid food or other beverages for 30 to 45 minutes, with special instructions to follow. This is to allow the medication to be properly absorbed. The duration of treatment would be limited to 5 yrs, when possible, to prevent increased risk for atypical fracture of femur. Patients who are unable to swallow pills or have trouble swallowing or have a gastrointestinal disease would not be candidates for these medications. An intravenous form of bisphosphonate can be considered per below. -IV Reclast (zoledronic acid), is 5 mg intravenous infusion given once a year for Osteoporosis and once every two years for Osteopenia. This is a 15 to 20 minute infusion given at our infusion center. For that infusion, it would be important to have completed any necessary dental work and continue following with your dentist every 6 months and the recommended lab work we ordered. You would need to be well hydrated to insure good kidney function. Please insure adequate hydration with water, about 6 to 8 cups of water, the day before, the day of the infusion and the day after. Please avoid dehydration in general. Some people experience flu like symptoms and low grade fever, after the infusion. This is usually self limited and will resolve. The recommended treatment for symptom relief is taking acetaminophen/Tylenol two extra strength tablets (500mg each) every 6 hours until this has resolved, usually does not last more than 3 days. IV Reclast once a year is usually limited to no more than 3 yrs, to prevent increased risk for atypical fracture of femur. Bisphosphonates cannot be prescribed to patients who have very low kidney function and those with untreated dental problems. Reviewed importance of regular dental care, follow up with dentist and good oral hygiene We also reviewed risk of reported ONJ (osteonecrosis of the jaw) and atypical fracture of femur. You can read more at these [facility] web links: https://my.[facility].org/ alth/treatments/29881-rrkvycywdkq ates For Fosamax/alendronate: https://.[facility].org/ alth/drugs/02463-yrgkwwyaeeg-cydr ets For Actonel/risedronate: https://.[facility].org/ alth/drugs/51972-pgpmwpcjheq-acai -tabletsFor Reclast/zoledronic acid: https://.[facility]/ alth/drugs/69629-ajhvcrdavc-kcvo- tstbjlbjs-fdpgmi-xpjkrou-osteopor osis -Subcutaneous Prolia: this is one injection every 6 months, given by the nurse in the office. This medication is given jail, indefinitely. Prolia should not be discontinued without proven back up therapy, due to incr risk of vert fractures after withdrawing Prolia. Recent research findings recommend that Prolia if started and continued past 1 to 2 yrs, may need to be indefinitely, for now, until new studies show effective transition therapy. Advised that Prolia should not be discontinued due to reported increased risk of bone loss and vertebral fractures after withdrawing Prolia. Multiple studies have looked into transition therapy. Recent study from [facility] Chinedu et al, 03/08/2020 (PMID: [id number].The study is ongoing, clinicaltrials.gov; [id number]), reported one infusion of IV Reclast did not prevent bone loss after Prolia was discontinued. At this time, would need to await additional studies on what is the best approach and strategy, for if and when, Prolia is no longer necessary. For patients who have been on Prolia past 2 yrs, bone loss still occurred despite an infusion with zoledronic acid following discontinuation of Prolia. Some patients required another infusion of zoledronic acid after 6 months from their first one. In some patients Prolia would need to be continued indefinitely. The 10 year data on Prolia are reassuring in terms of safety and efficacy. The current recommendations is that if Prolia is continued past 2 yrs, it is recommended to continue on it indefinitely, meaning lifelong. Infection precautions are recommended. Patients who experience frequent or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 knee on both standing weightbearing and flexion weightbearing views and has calcification at the insertion of the quadriceps tendon into the proximal tibia seen on the lateral x-ray and subpatellar x-ray shows marked degenerative arthritis of the patellofemoral compartment. There is a 2/3 narrowing of the medial compartment of the left knee with minimal symptoms. IMPRESSION: Severe degenerative arthritis of the right knee. Recommend aspiration and injection of the right knee. Stone Sandblaster brace. After appropriate identification of the right knee as the knee to be aspirated, we aspirated a few mL of fluid from the right knee and injected the knee with a 10 mL mixture of cortisone and Xylocaine. This was tolerated well. Stone Sandblaster brace will be measured and placed. See back in April. DICTATED BY: Eliud Soni II/AQT JOB# [id number] [facility] 01-31-2025 History of Present illness Narrative [facility] Outpatient Physical Therapy Daily Note Patient: Karen Zaidi : 1955 CSN #: [id number] Referring Physician: Augustina Vargas MD Date: 01/31/2025 Diagnosis: R10.2 Pelvic pain in female Treatment Diagnosis: pelvic floor pain Onset Date: 09/23/24 PT Insurance Information: Medicare A and B Total # of Visits Approved: 11 Per Physician Order Total # of Visits to Date: 10 No Show: 0 Canceled Appointment: 0 12/14/24 Plan of Care/Recert Due Pre-Treatment Pain: 0/10 Subjective: Pt reports she is having some lower abdominal restriction continued, some LBP when standing at the counter. Exercises: Exercise 3: Butterfly, double knee to chest, LTR x20, piriformis, piriformis figure four stretch, modified earline stretch, 3x30 ea Exercise 4: TA brace x10, isometric crunch 10x3 , toe tap x10 ea LE, TA SLR x10 ea Manual: Soft Tissue Mobilizaton: STM L lower abomen 5' Assessment Body Structures, Functions, Activity Limitations Requiring Skilled Therapeutic Intervention: Decreased functional mobility , Increased pain, Decreased endurance, Decreased ROM, Decreased balance, Decreased strength, Decreased safe awareness Assessment: Initiated tx with stretches to reduce excess tone in hips, LB and pelvis. Progressed core ex with isometric holds for stability and toe taps. Added pelvic strengthening. Continued STM along abdomen, with ILU bowel massage completed post. Improved tissue mobility post, will cont to progress as able. Reviewed body mechanics at counter and TA bracing throughout day for inc support. UPOC completed, Yelena Steve PT, DPT saw patient at beginning of treatment from 929 to 944 for update. Objective findings are as follows: Pt notes at least 70% improvement overall and 0/10 pain complaints. Pt strength in alyson LEs are grossly 4+ to 5-/5 and lower abs grossly 3+ to 4-/5. Pt demonstrates good technique with core strengthening. She voices no questions or concerns and is in agreement with the plan to continue. Yelena Steve PT, DPT Activity Tolerance Activity Tolerance: Patient tolerated treatment well Patient Education Patient Education: Access Code: [email or web address] Pt verbalized/demonstrated good understanding: [x] Yes [] No, pt required further clarification. Post Treatment Pain: 0/10 Plan Plan Frequency: 11 visits Plan weeks: 90 days Goals (Total # of Visits to Date: 10) Short Term Goals Time Frame for Short Term Goals: 3 visits Short Term Goal 1: Patient will complete and present to PT a 72 hour bladder diary for analysis and establishment of appropriate intervention for remaining visits - not met Short Term Goal 2: Pt will report improvement regarding pain to allow better tolerance to ADLs. - progressing Short Term Goal 3: Initiate HEP and progress as tolerated for pain control, muscular balance, and improved bowel habits. - MET Fpc Goals Time Frame for Drum Sander Setter Goals : 12 visits Fpc Goal 1: Pt will be independent and compliant with her HEP for pain control and resumption of desired activities. Fpc Goal 2: Patient will demonstrate a minimum of 4/5 pelvic floor muscle strength bilaterally in order to eliminate urinary incontinence symptoms as subjectively reported by patient Fpc Goal 3: Pain disability index will be improved and reported as no greater than 20 indicating better tolerance to ADLs Fpc Goal 4: Pt will report at least 75% improvement overall and allow return to desired activities. Minutes Tracking: Time In: 944 Time Out: 1028 Minutes: 43 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 PTA/Yelena Steve PT, DPT Date: 01/31/2025 documented in this encounter [facility] 01-24-2025 History of Present illness Narrative [facility] Outpatient Physical Therapy Daily Note Patient: Karen Zaidi : 1955 CSN #: [id number] Referring Physician: Augustina Vargas MD Date: 01/24/2025 Diagnosis: R10.2 Pelvic pain in female Treatment Diagnosis: pelvic floor pain Onset Date: 09/23/24 PT Insurance Information: Medicare A and B Total # of Visits Approved: 11 Per Physician Order Total # of Visits to Date: 9 No Show: 0 Canceled Appointment: 0 12/14/24 Plan of Care/Recert Due Pre-Treatment Pain: 0/10 Subjective: Pt reports improved BM after last appt, every other day for about four days. Feels bloated today. Exercises: Exercise 3: Butterfly, double knee to chest, LTR x20, piriformis, piriformis figure four stretch, modified earline stretch, 3x30 ea Exercise 4: TA brace x10, isometric crunch 10x3 , toe tap x10, TA SLR x10 ea Exercise 5: bridges x20, clamshell x20 plum TB Exercise 6: Pelvic floor contraction 3 x10 Manual: Soft Tissue Mobilizaton: STM L lower abomen 5' Assessment Body Structures, Functions, Activity Limitations Requiring Skilled Therapeutic Intervention: Decreased functional mobility , Increased pain, Decreased endurance, Decreased ROM, Decreased balance, Decreased strength, Decreased safe awareness Assessment: Initiated tx with stretches to reduce excess tone in hips, LB and pelvis. Progressed core ex with isometric holds for stability and toe taps. Added pelvic strengthening. Continued STM along abdomen, with ILU bowel massage completed post. Improved tissue mobility post, will cont to progress as able. Activity Tolerance Activity Tolerance: Patient tolerated treatment well Patient Education Patient Education: Access Code: [email or web address] Pt verbalized/demonstrated good understanding: [x] Yes [] No, pt required further clarification. Post Treatment Pain: 0/10 Plan Plan Frequency: 11 visits Plan weeks: 90 days Goals (Total # of Visits to Date: 9) Short Term Goals Time Frame for Short Term Goals: 3 visits Short Term Goal 1: Patient will complete and present to PT a 72 hour bladder diary for analysis and establishment of appropriate intervention for remaining visits - not met Short Term Goal 2: Pt will report improvement regarding pain to allow better tolerance to ADLs. - progressing Short Term Goal 3: Initiate HEP and progress as tolerated for pain control, muscular balance, and improved bowel habits. - MET Fpc Goals Time Frame for Fpc Goals : 12 visits Drum Sander Setter Goal 1: Pt will be independent and compliant with her HEP for pain control and resumption of desired activities. Drum Sander Setter Goal 2: Patient will demonstrate a minimum of 4/5 pelvic floor muscle strength bilaterally in order to eliminate urinary incontinence symptoms as subjectively reported by patient Fpc Goal 3: Pain disability index will be improved and reported as no greater than 20 indicating better tolerance to ADLs Fpc Goal 4: Pt will report at least 75% improvement overall and allow return to desired activities. Minutes Tracking: Time In: 901 Time Out: 944 Minutes: 43 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 PTA Date: 01/24/2025 Cosigned by Lorena Vaca, PT at 01/24/2025 11:13 AM EDT documented in this encounter [facility] 12-08-2024 Instructions Augustina Vargas MD - 12/08/2024 4:40 PM EST Fu 3months See rheumatology dr stone bowman for osteoporosis BOTOX INJECTION OF HIGH TONE PELVIC FLOOR [...] urinary incontinence (4.8%). documented in this encounter [facility] 12-08-2024 History of Present illness Narrative Images from the original note were not included. [facility] SECTION FOR CHRONIC PELVIC PAIN OUTPATIENT VISIT DATE 12/08/2024 OUTPATIENT VISIT TYPE FOLLOW UP CHIEF COMPLAINT Karen Zaidi is a 69 year old female who presents for abdominal TPI and CPP follow up. HISTORY OF PRESENT ILLNESS Karen is a 69 year old female who is in today for abdominal TPI and CPP follow up and accompanied by self. Since last visit: Patient states she broke her pelvis in four areas (R sacral fracture, R inferior/superior pubic rami fracture, L superior pubic ramus fracture) after falling on concrete in her basement on 09/02/24. She required 10 weeks of pjt-[id number]-[id number] activity and is still attending physical therapy. She did not hit her head. Patient reports that after her injections, she initially noticed significant improvement and found her 07/06/24 injections effective for pain relief until the pelvic fracture occurred. She continues to experience constant left-sided abdominal tightness, which she rates as 10/10. She uses Flexeril at night and a heating pad, noting that her pain is worse upon waking. Took Valium for about 4 weeks and had to squat to use the toilet. Restarted PFPT sessions, having had 2 visits since her fall. BMs improve with PFPT Hard to distinguish her pelvic pain from her fracture injuries Drinks 24 ounces of coffee and continuous water all day Left sided pain is constant Reports chronic constipation and takes miralax once per week Going to [employer] on December 25, 2024 for vacation Intensity of pain: severe Average Pain level: 10 on a scale of 0-10 Emergency room visits for pain since last visit: 09/02/24, Pelvic Fractures after a fall Level of physical activity and mobility: once I get up and get going, I'm going Quality of sleep: I was waking up during the course of my fracture but but since then with the Flexeril I can sleep Mood: okay Side effects of medications for pain: none SUMMARY FROM LAST VISIT Date: 08/17/2024 Encounter Diagnosis ICD-10-CM 1. High-tone pelvic floor dysfunction M62.89 cyclobenzaprine (FLEXERIL) 5 mg tablet onabotulinum toxin type A 100 Units injection (BOTOX) Plan: 1) fu botox and abd TPI 10/05/24 2) continue flexeril vaginally TREATMENT HISTORY No specialty comments available. PHYSICAL EXAM BP 140/74 Wt 62.6 kg (138 lb) LMP (LMP Unknown) BMI 21.61 kg/m Physical Exam Abdominal: Casualty Claim Adjuster offered: Patient declines. SENSITIVE EXAM: The sensitive examination was discussed with the Patient or Patient's Authorized Diagnostic Tech. As applicable, any other physician, advance practice provider, medical student, or other health professional student that will be observing or involved in the sensitive examination for educational or training purposes was discussed with the Patient or Authorized Diagnostic Tech. The Patient or Authorized Diagnostic Tech has agreed to proceed with the sensitive examination. (Sensitive examination includes inspection and/or palpation of the breasts, pelvis, prostate and anorectal regions). General: The patient is a well-appearing female in no acute distress. Examination Abdominal tenderness: LLQ Abdominal myofacial trigger points: LLQ Vaginal Vestibular tenderness: negative Rectal tenderness: negative Comment: constipated Bladder base tenderness: negative Uterus: non-tender Retrocervix: non-tender Adnexa: non-tender Pelvic Floor Musculature RIGHT SIDED Pubococcygeus: 3 Iliococcygeus: 3 Coccygeus: 3 Obturator: 3 LEFT SIDED Pubococcygeus: 3 Iliococcygeus: 3 Coccygeus: 3 Obturator: 3 (Pain Scale 1 to 3, 3= extreme) [...] exam could be obtained in 12 months ASSESSMENT/PLAN Encounter Diagnosis ICD-10-CM 1. High-tone pelvic floor dysfunction M62.89 2. Trigger point of abdomen R10.9 TRIGGER POINT INJECTION MULTI 1-2 MUSCLE GR 3. Myalgia, other site M79.18 TRIGGER POINT INJECTION MULTI 1-2 MUSCLE GR 4. Other osteoporosis without current pathological fracture M81.8 CONSULT TO RHEUM/IMMUN DISEASE Recovering from multiple hip fractures Takes caltrate daily Continues to have constant left lower abdomen pain Restarted PFPT Chronic constipation, take miralax once per week Vaginal Botox and abdominal TPI done today Reviewed Dexa scan in depth with pt and results are concerning for osteoporosis refer to dr bowman for opinion and tx options Continue PFPT Continue estrogen cream Follow up in 3 months for repeat TPI Patient verbalized understanding of the plan of care and all questions were answered to her stated satisfaction. Written and verbal health teaching given to patient, patient verbalizes understanding and agrees with treatment plan. Medical Decision Making: Problems: Moderate: 1+ chronic illnesses with change Risk: Moderate: Moderate risk from testing/treatment Medical Decision Making Level: 4 - Moderate I personally interviewed, confirmed and edited the above information if obtained by others. Augustina Vargas MD Scribe Attestation: By signing my name below, Virginia Jules, attest that this documentation has been prepared under the direction and in the presence of Dr. Augustina Vargas MD Electronically signed, Dulce Saravia December 08, 2024 4:10 PM Provider Attestation: Augustina Jules MD personally performed the services described in this documentation. All medical record entries made by the scribe were at my direction and in my presence. I have reviewed the chart and discharge instructions (if applicable) and agree that the record reflects my personal performance and is accurate and complete. Electronically Signed: Augustina Vargas MD December 03, 2024 ORDERS PLACED . 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 Vaginal botox done on: 07/06/2024, 12/08/2024 2. Abdominal TPI done on: 07/06/2024, 12/08/2024 Nonhormonal Medications 1. Flexeril 2. gabapentin 300 mg 3. motrin Hormonal medications (IUD, control pill, [facility]NRH) 1. Esterase cream Services (GI, urology, pain psych,PFPT) 1. PFPT PROCEDURE UNIVERSAL PROTOCOL / SAFETY CHECKLIST Procedure to be Performed: Vaginal Botox and abdominal trigger point injections Sign In: 4:21 pm A Moment of CARE was completed. Personnel directly involved with the procedure wore the appropriate PPE (Personal Protective Equipment). Patient/Surrogate Stated/Verified: PATIENT VERIFIED(optional for EMERGENT procedures): Patient name, Date of , Relevant allergies, and The intended procedure Time Out Communication: Intended patient and procedure match the source documents. Consent documented and matches the intended procedure. Sign Out: 4:35 PM SIGN OUT (optional for EMERGENT procedures): No specimen collected. PROCEDURE ABDOMINAL TRIGGER POINT INJECTIONS Area prepped with alcohol swab and pain ease spray 10 mL 0.25% bupivicaine mixed in a 10 mL syringe. Skin was prepped in a sterile fashion. Left Lower Quadrant. Affected area was injected in 1 muscle Groups with 10 mL of the bupivicaine solution using a 22g needle. Patient tolerated the procedure well. 8 AREAS 0.25% Bupivacaine 10 ML --- lot # [id number] EXP:09/11/2025 UNIVERSAL PROTOCOL / SAFETY CHECKLIST Procedure to be Performed: Vaginal botox injections Area prepped with hibiclens 10 ml of [...] Patient tolerated procedure well. OnabotulinumtoxinA: office provided LOT:[id number] EXP: 02/2027 documented in this encounter [facility] 12-08-2024 Note HNO ID: [id number] Author: AUGUSTINA VARGAS MD Service: ? Author Type: Physician Type: Progress Notes Filed: 12/11/2024 16:30 Note Text: [facility] SECTION FOR CHRONIC PELVIC PAIN OUTPATIENT VISIT DATE 12/08/2024 OUTPATIENT VISIT TYPE FOLLOW UP CHIEF COMPLAINT Karen Zaidi is a 69 year old female who presents for abdominal TPI and CPP follow up. HISTORY OF PRESENT ILLNESS Karen is a 69 year old female who is in today for abdominal TPI and CPP follow up and accompanied by self. Since last visit: Patient states she broke her pelvis in four areas (R sacral fracture, R inferior/superior pubic rami fracture, L superior pubic ramus fracture) after falling on concrete in her basement on 09/02/24. She required 10 weeks of ixa-kwgdyi-frhijfh activity and is still attending physical therapy. She did not hit her head. Patient reports that after her injections, she initially noticed significant improvement and found her 07/06/24 injections effective for pain relief until the pelvic fracture occurred. She continues to experience constant left-sided abdominal tightness, which she rates as 10/10. She uses Flexeril at night and a heating pad, noting that her pain is worse upon waking. Took Valium for about 4 weeks and had to squat to use the toilet. Restarted PFPT sessions, having had 2 visits since her fall. BMs improve with PFPT Hard to distinguish her pelvic pain from her fracture injuries Drinks 24 ounces of coffee and continuous water all day Left sided pain is constant Reports chronic constipation and takes miralax once per week Going to [employer] on December 25, 2024 for vacation Intensity of pain: severe Average Pain level: 10 on a scale of 0-10 Emergency room visits for pain since last visit: 09/02/24, Pelvic Fractures after a fall Level of physical activity and mobility: once I get up and get going, I'm going Quality of sleep: I was waking up during the course of my fracture but but since then with the Flexeril I can sleep Mood: okay Side effects of medications for pain: none SUMMARY FROM LAST VISIT Date: 08/17/2024 Encounter Diagnosis ICD-10-CM 1. High-tone pelvic floor dysfunction M62.89 cyclobenzaprine (FLEXERIL) 5 mg tablet onabotulinum toxin type A 100 Units injection (BOTOX) Plan: 1) fu botox and abd TPI 10/05/24 2) continue flexeril vaginally TREATMENT HISTORY No specialty comments available. PHYSICAL EXAM BP 140/74 Wt 62.6 kg (138 lb) LMP (LMP Unknown) BMI 21.61 kg/m? Physical Exam Abdominal: Casualty Claim Adjuster offered: Patient declines. SENSITIVE EXAM: The sensitive examination was discussed with the Patient or Patient's Authorized Diagnostic Tech. As applicable, any other physician, advance practice provider, medical student, or other health professional student that will be observing or involved in the sensitive examination for educational or training purposes was discussed with the Patient or Authorized Diagnostic Tech. The Patient or Authorized Diagnostic Tech has agreed to proceed with the sensitive examination. (Sensitive examination includes inspection and/or palpation of the breasts, pelvis, prostate and anorectal regions). General: The patient is a well-appearing female in no acute distress. Examination Abdominal tenderness: LLQ Abdominal myofacial trigger points: LLQ Vaginal Vestibular tenderness: negative Rectal tenderness: negative Comment: constipated Bladder base tenderness: negative Uterus: non-tender Retrocervix: non-tender Adnexa: non-tender Pelvic Floor Musculature RIGHT SIDED Pubococcygeus: 3 Iliococcygeus: 3 Coccygeus: 3 Obturator: 3 LEFT SIDED Pubococcygeus: 3 Iliococcygeus: 3 Coccygeus: 3 Obturator: 3 (Pain Scale 1 to 3, 3= extreme) [...] exam could be obtained in 12 months ASSESSMENT/PLAN Encounter Diagnosis ICD-10-CM 1. High-tone pelvic floor dysfunction M62.89 2. Trigger point of abdomen R10.9 TRIGGER POINT INJECTION MULTI 1-2 MUSCLE GR 3. Myalgia, other site M79.18 TRIGGER POINT INJECTION MULTI 1-2 MUSCLE GR 4. Other osteoporosis without current pathological fracture M81.8 CON (more content not included)... [facility] 02-24-2025 History of Present illness Narrative Reason for Appointment: Patient ID: Karen Zaidi is a 69 y.o. female who presents for Well Women Visit Patient presents today for Annual Exam. MEDICATIONS Current Outpatient Medications Medication Instructions acetaminophen (TYLENOL) 1,000 mg, Every 6 hours PRN atorvastatin (LIPITOR) 20 mg, Daily RT Calcium Carbonate-Vit D-Min (Caltrate Bone Health Advanced) 600-800 MG-UNIT chewable tablet Chew cyclobenzaprine (FLEXERIL) 5 mg, Daily PRN fluticasone (Flonase) 50 MCG/ACT nasal spray 1 spray, Daily RT ibuprofen 400 mg, Every 6 hours PRN loratadine-pseudoephedrine ER (Claritin-D 12-hour) 5-120 MG 12 hr tablet 1 tablet, 2 times daily onabotulinumtoxinA (BOTOX) 100 Units, Every 3 months Singulair 10 MG tablet Every 24 hours ALLERGIES Allergies Allergen Reactions Clindamycin Rash, Hives and Shortness of breath Bee Venom Rash and Hives Bee Pollen Other Reaction(s): Comment:Bee Stings Fluconazole Dizziness Pseudoephedrine Hcl Er Hives Codeine GI intolerance Other Reaction(s): Comment:upset stomach Doxycycline Rash and Hives Doxycycline Hyclate Rash PROBLEMS Active Ambulatory Problems Diagnosis Date Noted Osteoporosis 03/04/2023 Peripheral vascular disease ([facility]) 03/17/2023 Follow-up exam 03/17/2023 Resolved Ambulatory Problems Diagnosis Date Noted Acute non intractable tension-type headache 03/17/2023 Chronic rhinitis 03/17/2023 Pharyngeal dysphagia 03/17/2023 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 Family history of abdominal aortic aneurysm 08/20/2023 Infrarenal abdominal 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 (CMS/HCC) 08/20/2023 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 Chest pain 06/12/2023 Pelvic pain 08/20/2023 Submandibular gland swelling 10/07/2023 Mass of right submandibular region 12/01/2023 Neck pain 12/01/2023 Malnutrition of moderate degree (CMS/HCC) 03/03/2024 Narcotic drug use 02/19/2024 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 Other hyperlipidemia (CMS/HCC) 02/19/2024 Ovarian varices 02/19/2024 Sinus bradycardia on ECG 02/20/2024 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 Past Medical History: Diagnosis Date Allergic rhinitis Lung nodule Pelvic congestion Sinusitis HISTORY PAST MEDICAL HISTORY SOCIAL HISTORY Past Medical History: Diagnosis Date Acute non intractable tension-type headache 03/17/2023 Allergic rhinitis Chest pain 06/12/2023 Chronic rhinitis 03/17/2023 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 Last Assessment & Plan: Sp styloidectomy Family history of abdominal aortic aneurysm 08/20/2023 Infrarenal abdominal 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 ([facility]) 08/20/2023 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 Lung nodule Malnutrition of moderate degree ([facility]) 03/03/2024 Mass of right submandibular region 12/01/2023 Narcotic drug use 02/19/2024 Last Assessment & Plan: Pain managed with norco PRN Neck pain 12/01/2023 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 Last Assessment & Plan: With pelvic congestion Patient endorses abdominal and L flank pain with radiation to pelvis Other hyperlipidemia ([facility]) 02/19/2024 Last Assessment & Plan: Managed on Atorvastatin Ovarian varices 02/19/2024 Last Assessment & Plan: 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 Plan for surgery Pelvic congestion Pelvic pain 08/20/2023 Pharyngeal dysphagia 03/17/2023 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 Sinus bradycardia on ECG 02/20/2024 Last Assessment & Plan: HR on EKG from today - 54 HR on exam today 60 Denies cardiac symptoms Sinusitis Submandibular gland swelling 10/07/2023 Social History Tobacco Use Smoking status: Former Current packs/day: 0.00 Types: Cigarettes Passive exposure: Past Smokeless tobacco: Never Vaping Use Vaping status: Never Used Substance Use Topics Alcohol use: Never Comment: caffeine intake: 2-3 cups per day Drug use: Defer FAMILY HISTORY Family History Problem Relation Name Age of Onset Hypertension Mother Namrata Neves Heart disease Mother Namrata Neves Stroke Mother Namrata Neves Hypertension Father Vern Neves Heart disease Father Vern Neves Stroke Father Vern Neves Stroke Sibling Hypertension Sibling Heart disease Sibling SURGICAL HISTORY Past Surgical History: Procedure Laterality Date CHOLECYSTECTOMY COLONOSCOPY DENTAL IMPLANT IR VENOGRAM RENAL 09/09/2023 IR VENOGRAM RENAL 09/09/2023 KIDNEY STONE SURGERY KNEE SURGERY TUBAL LIGATION US KIDNEY TRANSPLANT 03/02/2024 REVIEW OF SYSTEMS Review of Systems: Review of Systems All other systems reviewed and are negative. OBJECTIVE Objective: Physical Exam Constitutional: Appearance: Normal appearance. She is well-developed. Genitourinary: Vulva normal. Cardiovascular: Rate and Rhythm: Normal rate and regular rhythm. Pulmonary: Effort: Pulmonary effort is normal. Breath sounds: Normal breath sounds. Abdominal: General: Bowel sounds are normal. There is no distension. Palpations: Abdomen is soft. Tenderness: There is no abdominal tenderness. There is no guarding or rebound. Musculoskeletal: General: No swelling. Normal range of motion. Right lower leg: No edema. Left lower leg: No edema. Neurological: Mental Status: She is alert and oriented to person, place, and time. Skin: General: Skin is warm and dry. Psychiatric: Mood and Affect: Mood normal. Behavior: Behavior normal. Vitals and nursing note reviewed. Exam conducted with a forklift driver present. Vitals: Estimated body mass index is 22.15 kg/m as calculated from the following: Height as of 06/03/24: 5' 7 . Weight as of this encounter: 141 lb 6.4 oz. BP: 130/72 No LMP recorded. Patient is postmenopausal. ASSESSMENT & PLAN ICD-10-CM 1. Well woman exam with routine gynecological exam Z01.419 THIN PREP TIS PAP AND HR HPV DNA 2. Breast cancer screening by mammogram Z12.31 Bilateral screening mammogram Bilateral screening mammogram 3. Postmenopausal state Z78.0 DEXA bone density Annual: Patient presents today for an annual exam. Patient states she is doing well and has no complaints. Pap was obtained without difficulty and patient given mammogram/Dexa order to have scheduled/obtained. Orders Placed This Encounter Procedures Bilateral screening mammogram DEXA bone density Follow Up: Patient is to return in one year for annual unless needed otherwise. Documented by Jagruti Flowers LPN on behalf of: DELIA Burnett Reason for Appointment: Patient ID: Karen Zaidi is a 69 y.o. female who presents for Well Women Visit Patient presents today for annual MEDICATIONS Current Outpatient Medications Medication Instructions acetaminophen (TYLENOL) 1,000 mg, Every 6 hours PRN atorvastatin (LIPITOR) 20 mg, Daily RT Calcium Carbonate-Vit D-Min (Caltrate Bone Health Advanced) 600-800 MG-UNIT chewable tablet Chew cyclobenzaprine (FLEXERIL) 5 mg, Daily PRN fluticasone (Flonase) 50 MCG/ACT nasal spray 1 spray, Daily RT ibuprofen 400 mg, Every 6 hours PRN loratadine-pseudoephedrine ER (Claritin-D 12-hour) 5-120 MG 12 hr tablet 1 tablet, 2 times daily onabotulinumtoxinA (BOTOX) 100 Units, Every 3 months Singulair 10 MG tablet Every 24 hours ALLERGIES Allergies Allergen Reactions Clindamycin Rash, Hives and Shortness of breath Bee Venom Rash and Hives Bee Pollen Other Reaction(s): Comment:Bee Stings Fluconazole Dizziness Pseudoephedrine Hcl Er Hives Codeine GI intolerance Other Reaction(s): Comment:upset stomach Doxycycline Rash and Hives Doxycycline Hyclate Rash PROBLEMS Active Ambulatory Problems Diagnosis Date Noted Osteoporosis 03/04/2023 Peripheral vascular disease (CMS/HCC) 03/17/2023 Follow-up exam 03/17/2023 Resolved Ambulatory Problems Diagnosis Date Noted Acute non intractable tension-type headache 03/17/2023 Chronic rhinitis 03/17/2023 Pharyngeal dysphagia 03/17/2023 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 Family history of abdominal aortic aneurysm 08/20/2023 Infrarenal abdominal 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 (CMS/HCC) 08/20/2023 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 Chest pain 06/12/2023 Pelvic pain 08/20/2023 Submandibular gland swelling 10/07/2023 Mass of right submandibular region 12/01/2023 Neck pain 12/01/2023 Malnutrition of moderate degree (CMS/HCC) 03/03/2024 Narcotic drug use 02/19/2024 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 Other hyperlipidemia (CMS/HCC) 02/19/2024 Ovarian varices 02/19/2024 Sinus bradycardia on ECG 02/20/2024 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 Past Medical History: Diagnosis Date Allergic rhinitis Lung nodule Pelvic congestion Pelvic floor dysfunction Sinusitis HISTORY PAST MEDICAL HISTORY SOCIAL HISTORY Past Medical History: Diagnosis Date Acute non intractable tension-type headache 03/17/2023 Allergic rhinitis Chest pain 06/12/2023 Chronic rhinitis 03/17/2023 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 Last Assessment & Plan: Sp styloidectomy Family history of abdominal aortic aneurysm 08/20/2023 Infrarenal abdominal 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 ([facility]) 08/20/2023 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 Lung nodule Malnutrition of moderate degree (CMS/HCC) 03/03/2024 Mass of right submandibular region 12/01/2023 Narcotic drug use 02/19/2024 Last Assessment & Plan: Pain managed with norco PRN Neck pain 12/01/2023 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 Last Assessment & Plan: With pelvic congestion Patient endorses abdominal and L flank pain with radiation to pelvis Other hyperlipidemia ([facility]) 02/19/2024 Last Assessment & Plan: Managed on Atorvastatin Ovarian varices 02/19/2024 Last Assessment & Plan: 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 Plan for surgery Pelvic congestion Pelvic floor dysfunction Pelvic pain 08/20/2023 Pharyngeal dysphagia 03/17/2023 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 Sinus bradycardia on ECG 02/20/2024 Last Assessment & Plan: HR on EKG from today - 54 HR on exam today 60 Denies cardiac symptoms Sinusitis Submandibular gland swelling 10/07/2023 Social History Tobacco Use Smoking status: Former Current packs/day: 0.00 Types: Cigarettes Passive exposure: Past Smokeless tobacco: Never Vaping Use Vaping status: Never Used Substance Use Topics Alcohol use: Never Comment: caffeine intake: 2-3 cups per day Drug use: Defer FAMILY HISTORY Family History Problem Relation Name Age of Onset Hypertension Mother Namrata Neves Heart disease Mother Namrata Neves Stroke Mother Namrata Neves Hypertension Father Vern Neves Heart disease Father Vern Neves Stroke Father Vern Neves Stroke Sibling Hypertension Sibling Heart disease Sibling SURGICAL HISTORY Past Surgical History: Procedure Laterality Date CHOLECYSTECTOMY COLONOSCOPY DENTAL IMPLANT IR VENOGRAM RENAL 09/09/2023 IR VENOGRAM RENAL 09/09/2023 KIDNEY STONE SURGERY KNEE SURGERY TUBAL LIGATION US KIDNEY TRANSPLANT 03/02/2024 REVIEW OF SYSTEMS Review of Systems: Review of Systems Constitutional: Negative. HENT: Negative. Eyes: Negative. Respiratory: Negative. Cardiovascular: Negative. Gastrointestinal: Negative. Genitourinary: Negative. Musculoskeletal: Negative. Skin: Negative. Neurological: Negative. All other systems reviewed and are negative. Hematological: Negative. Endocrine: Negative. Allergic/Immunologic: Negative. OBJECTIVE Objective: Physical Exam Constitutional: Appearance: Normal appearance. Genitourinary: Right Adnexa: not tender and no mass present. Left Adnexa: not tender and no mass present. No cervical discharge. Breasts: Breasts are soft. Right: Normal. Left: Normal. HENT: Head: Normocephalic. Nose: Nose normal. Mouth/Throat: Mouth: Mucous membranes are moist. Cardiovascular: Rate and Rhythm: Normal rate. Pulmonary: Effort: Pulmonary effort is normal. Abdominal: General: Bowel sounds are normal. Palpations: Abdomen is soft. Musculoskeletal: General: Normal range of motion. Cervical back: Normal range of motion. Neurological: General: No focal deficit present. Mental Status: She is alert. Skin: General: Skin is warm and dry. Psychiatric: Mood and Affect: Mood normal. Vitals and nursing note reviewed. Exam conducted with a forklift driver present. Vitals: Estimated body mass index is 22.15 kg/m as calculated from the following: Height as of 06/03/24: 5' 7 . Weight as of this encounter: 141 lb 6.4 oz. BP: 130/72 No LMP recorded. Patient is postmenopausal. ASSESSMENT & PLAN ICD-10-CM 1. Well woman exam with routine gynecological exam Z01.419 THIN PREP TIS PAP AND HR HPV DNA 2. Breast cancer screening by mammogram Z12.31 Bilateral screening mammogram Bilateral screening mammogram 3. Postmenopausal state Z78.0 DEXA bone density Annual Exam: Patient presents today for an annual exam. Patient states she is doing well and has no complaints. Pap was obtained without difficulty. Orders Placed This Encounter Procedures Bilateral screening mammogram DEXA bone density Patient has history of pelvic congestion and increased pelvic pain. Since last visit she had surgery at [facility] where they performed what is called auto kidney transplant and patient pain is gone and she is in pelvic floor therapy. She also suffered a pelvic rami fracture x4 post a fall. She has healed and just recently able to restart pelvic therapy Follow Up: Patient is to return in one year for annual unless needed otherwise. Documented by DELIA Burnett on behalf of: DELIA Burnett documented in this encounter [facility] 11-01-2024 Telephone encounter Note Order faxed with transmission receipt. Kira Alvarez RN November 01, 2024 3:59 PM [facility] 11-01-2024 Miscellaneous Notes Order faxed with transmission receipt. Kira Alvarez RN November 01, 2024 3:59 PM Patient cleared by ortho to resume PFPT. Patient requesting new order placed and faxed to number below: documented in this encounter [facility] 11-01-2024 Telephone encounter Note Patient cleared by ortho to resume PFPT. Patient requesting new order placed and faxed to number below: [facility] 09-21-2024 Note Addended by: ALYSHA MEIER on: 09/21/2024 02:45 PM Modules accepted: Orders [facility] 09-21-2024 Miscellaneous Notes Addended by: ALYSHA TORRES on: 09/21/2024 02:45 PM Modules accepted: Orders [facility] 08/17/2024 Assessment: Encounter Diagnosis ICD-10-CM 1. High-tone [...] of current situation. documented in this encounter [facility] 09-21-2024 Telephone encounter Note [facility] 08/17/2024 Assessment: Encounter Diagnosis ICD-10-CM 1. High-tone pelvic floor dysfunction M62.89 cyclobenzaprine (FLEXERIL) 5 mg tablet onabotulinum toxin type A 100 Units injection (BOTOX) Plan: 1) fu botox and abd TPI 10/05/24 2) continue flexeril vaginally Total Time Spent: 5-10 minutes Augustina Vargas MD [facility] 09-21-2024 Telephone encounter Note Pt fyi - broke pelvis in four places about 3 weeks ago. Had to cancel all future PT appts and will need new order for end of end of November/beginning of December. Also had to reschedule TPI to end of November. Pt concerned and wanted to insure Dr was aware of current situation. [facility] 09-01-2024 Telephone encounter Note Refill(s) request: Requested Prescriptions Pending Prescriptions Disp Refills cyclobenzaprine (FLEXERIL) 5 mg tablet [Pharmacy Med Name: cyclobenzaprine 5 mg tablet] 90 tablet 4 Sig: take1 tablet BY MOUTH at bedtime as needed Called patient. Left voice message and notified there is a valid prescription waiting for her to hop picker at the pharmacy on file. Request [...] Center 10/05/2024 2:30 PM Augustina Vargas MD [facility] Appointment scheduled: As listed above Action taken: Refill already approved by provider. Danae Colindres RN September 01, 2024 12:05 PM [facility] 09-01-2024 Miscellaneous Notes Refill(s) request: Requested Prescriptions Pending Prescriptions Disp Refills cyclobenzaprine (FLEXERIL) 5 mg tablet [Pharmacy Med Name: cyclobenzaprine 5 mg tablet] 90 tablet 4 Sig: take1 tablet BY MOUTH at bedtime as needed Called patient. Left voice message and notified there is a valid prescription waiting for her to hop picker at the pharmacy on file. Request [...] Center 10/05/2024 2:30 PM Augustina Vargas MD [facility] Appointment scheduled: As listed above Action taken: Refill already approved by provider. Danae Colindres RN September 01, 2024 12:05 PM documented in this encounter [facility] 08-23-2024 Telephone encounter Note Called Guille Kaur to clarify that prescription is for Flexeril 5 mg tablets and to use 1 tablet at bedtime vaginally. Juliet Lopez RN [facility] 08-23-2024 Miscellaneous Notes Called Guille Kaur to clarify that prescription is for Flexeril 5 mg tablets and to use 1 tablet at bedtime vaginally. Juliet Lopez RN Received call from pharmacy asking for clarification of directions for: cyclobenzaprine (FLEXERIL) 5 mg tablet States that direction says to use vaginally but prescription is for oral tablet Please advise: [facility] [id number] - [place] [address] [address] - [phone] documented in this encounter [facility] 08-23-2024 Telephone encounter Note Received call from pharmacy asking for clarification of directions for: cyclobenzaprine (FLEXERIL) 5 mg tablet States that direction says to use vaginally but prescription is for oral tablet Please advise: [facility] [id number] - [place] [address] [address] - [phone] [facility] 08-19-2024 Telephone encounter Note Done Lupis Hodge [facility] Work Phone: 08-19-2024 Miscellaneous Notes Done Lupis Hodge Done Encounter Diagnosis ICD-10-CM 1. High-tone pelvic floor dysfunction M62.89 CYSTOSCOPY WHI Please put her on my schedule oct 05, 2024 at 2:30pm for botox, which is approved already Patient aware documented in this encounter [facility] 08-18-2024 Telephone encounter Note Done Encounter Diagnosis ICD-10-CM 1. High-tone pelvic floor dysfunction M62.89 CYSTOSCOPY WHI [facility] 08-17-2024 Note HNO ID: [id number] Author: AUGUSTINA VARGAS MD Service: ? Author [...] available appointment. Patient identified by and name. Karen Zaidi has consented to this telephone encounter. [...] 1. PFPT [facility] 08-17-2024 History of Present illness Narrative CHRONIC [...] available appointment. Patient identified by and name. Karen Zaidi has consented to this telephone encounter. [...] psych,PFPT) 1. PFPT documented in this encounter [facility] 08-17-2024 Telephone encounter Note Please put her on my schedule oct 05, 2024 at 2:30pm for botox, which is approved already Patient aware [facility] 07-26-2024 History of Present illness Narrative [facility] [address] [place] [address], [address] [place] [id number] SUBJECTIVE: Patient ID: Karen Zaidi is a 68 y.o. female presents today for Chief Complaint Patient presents with Follow-up HPI: Karen Zaidi is a 68 y.o. female seen to follow-up right submandibular duct dilation. She was last seen in office on 02/10/2024. Patient underwent right submandibular duct dilation with steroid irrigation. Karen states that she is doing well. She denies any issues or concerns regarding her right submandibular gland. She is free of pain and swelling in her right neck. Patient underwent an autotransplantation of her kidney on 03/02/2024 at [facility]. 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 Osteoporosis Pelvic congestion syndrome Peripheral vascular disease ([facility]) Seasonal allergies Submandibular gland swelling 11/12/2023 Visual impairment glasses Past Surgical History: Procedure Laterality Date CATARACT EXTRACTION Bilateral 2018 CHOLECYSTECTOMY 1979' COLONOSCOPY COLONOSCOPY N/A 07/23/2018 Performed by Orquidea Christine DO at [facility] DENTAL SURGERY 07/2013 implants Diagnostic cerebral angiogram N/A 03/31/2020 Performed by Melissa Morillo MD at [facility] CARDIAC CATH LABS DIAGNOSTIC VENOGRAM OF IVC AND ILEOCABLE, LEFT RENAL VEIN, SELECTIVE LEFT OVARIAN VEIN CONTRAST AND IVUS VENOGRAMS N/A 07/25/2023 Performed by Erendira Armijo DO at [facility] SPECIAL PROC dilation rt submandibular duct and steroid irrigation Right 11/24/2023 Performed by Sarah Godwin MD at [facility] KIDNEY STONE SURGERY 2019? KNEE CARTILAGE SURGERY MOLE REMOVAL 11/10/2023 right breast NEPHRECTOMY TRANSPLANTED ORGAN 03/02/2024 OTHER SURGICAL HISTORY 08/31/2020 cranial base ( cranial styloidectomy) 05/2020 also OTHER SURGICAL HISTORY 06/18/2023 venogram OTHER SURGICAL HISTORY 09/09/2023 DIagnostic venogram TUBAL LIGATION Vascular Invasive Diagnostic venogram with IVUS and the ability to measure pressure gradients Bilateral 06/18/2023 Performed by Erendira Armijo DO at [facility] CARD[facility] CATH [facility] Family History Problem [...] or concerns: . Non-emergent messages received through [employer] may take up to 2 business days for a response. Scribe Statement: Scribed for and in the presence of Sarah Godwin MD by Lauren Stevens (dulce). Lauren Stevens 07/26/2024 10:56 AM Provider Statement: [...] this chart were generated using voice recognition [employer] dictation software. Although every effort was made to ensure the accuracy of this automated labor supervisor, some errors in labor supervisor may have occurred. Yovana Veloz CNA 07/26/24 1024 [facility] Instructions Neda Stevens - 07/26/2024 10:15 [...] or concerns: . Non-emergent messages received through [employer] may take up to 2 business days for a response. documented in this encounter [facility] 07-06-2024 Instructions Augustina Vargas MD - 07/06/2024 [...] urinary incontinence (4.8%). documented in this encounter [facility] 07-06-2024 History of Present illness Narrative Images from the original note were not included. [facility] SECTION FOR CHRONIC PELVIC PAIN OUTPATIENT VISIT DATE 07/06/2024 OUTPATIENT VISIT TYPE FOLLOW UP CHIEF COMPLAINT Karen Zaidi is a 68 year old female who presents for chronic pelvic pain follow up with abdominal TPI and vaginal Botox. HISTORY OF PRESENT ILLNESS Karen is a 68 year old female who [...] Patient tolerated procedure well. OnabotulinumtoxinA: office provided LOT:[id number] EXP: 08/2026 PROCEDURE ABDOMINAL TRIGGER POINT INJECTIONS [...] 0.25% Bupivacaine 10 ML --- lot # [id number] EXP: 05/2026 documented in this encounter [facility] 07-06-2024 Note HNO ID: [id number] Author: AUGUSTINA VARGAS MD Service: ? Author Type: Physician Type: Progress Notes Filed: 07/06/2024 11:47 Note Text: [facility] SECTION FOR CHRONIC PELVIC PAIN OUTPATIENT VISIT DATE 07/06/2024 OUTPATIENT VISIT TYPE FOLLOW UP CHIEF COMPLAINT Karen Zaidi is a 68 year old female who presents for chronic pelvic pain follow up with abdominal TPI and vaginal Botox. HISTORY OF PRESENT ILLNESS Karen is a 68 year old female who [...] not included)... [facility] 06-07-2024 Telephone encounter Note Called pt; verified name/. Advised pt to use Flexeril vaginally, inserting as far as it will go at bedtime. Advised pt that it may cause drowsiness, but to a lesser degree when inserted vaginally vs. orally. Pt verbalized understanding and had no further questions. Kira Alvarez RN June 07, 2024 10:25 AM [facility] 06-07-2024 Miscellaneous Notes Called pt; verified [...] grogginess but more so if used orally [facility] 05/27/2024 Notes not yet complete Alysha Torres [...] is to be taken vaginally or orally. Dr. Garvin and prescription instructions conflict. Aidee Delong RN June 04, 2024 10:38 AM documented in this encounter [facility] 06-07-2024 Telephone encounter Note Done Lupis Hodge [facility] Work Phone: 06-07-2024 Miscellaneous Notes Keara Hodge Botox is approved; can she start PFPT if she desires and then do botox or do botox in office first available appointment documented in this encounter [facility] 06-06-2024 Telephone encounter Note Botox is approved; can she start PFPT if she desires and then do botox or do botox in office first available appointment [facility] 06-06-2024 Telephone encounter Note Tell her fleexeril, I like to try it vaginally first (less side effects ) and use at night. 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 Last Assessment & Plan: Sp styloidectomy Family history of abdominal aortic aneurysm 08/20/2023 Infrarenal abdominal 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 ([facility]) 08/20/2023 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 Lung nodule Malnutrition of moderate degree ([facility]) 03/03/2024 Mass of right submandibular region 12/01/2023 Narcotic drug use 02/19/2024 Last Assessment & Plan: Pain managed with norco PRN Neck pain 12/01/2023 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 Last Assessment & Plan: With pelvic congestion Patient endorses abdominal and L flank pain with radiation to pelvis Other hyperlipidemia ([facility]) 02/19/2024 Last Assessment & Plan: Managed on Atorvastatin Ovarian varices 02/19/2024 Last Assessment & Plan: 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 Dania Steven DO documented in this encounter [facility] 05-28-2024 Telephone encounter Note NICK 05/27/2024 Notes [...] dysfunction, high tone pelvic floor,pelvic floor tightness) [facility] 05-28-2024 Miscellaneous Notes NICK 05/27/2024 Notes [...] visit in this department: 08/27/2024 08/27/2024 in PRODUCT MGMT DEV MANAGER MAIN with AUGUSTINA VARGAS - 3 MO F/U - TVST ok per Dr. Vargas , PLS CALL HOME PHONE PT is unable to do VV documented in this encounter [facility] 05-28-2024 Telephone encounter Note Reason for [...] visit in this department: 08/27/2024 08/27/2024 in PRODUCT MGMT DEV MANAGER MAIN with AUGUSTINA VARGAS - 3 MO F/U - TVST ok per Dr. Vargas , PLS CALL HOME PHONE PT is unable to do VV [facility] Work Phone: 05-27-2024 History of Present [...] (FLONASE) 50 mcg/actuation nasal spray Use 1 Roll in the nose as needed for cold/allergy [...] SURGICAL HISTORY OF; Right Comment: styloidectomy for shaktoolik syndrome No date: PAST SURGICAL HISTORY OF [...] looks great PLAN -Follow up as needed Viet Carr MD documented in this encounter [facility] 05-27-2024 Note HNO ID: [id number] Author: VIET CARR MD Service: ? Author Type: Physician [...] (FLONASE) 50 mcg/actuation nasal spray Use 1 Roll in the nose as needed for cold/allergy [...] SURGICAL HISTORY OF; Right Comment: styloidectomy for shaktoolik syndrome No date: PAST SURGICAL HISTORY OF [...] looks great PLAN -Follow up as needed Viet Carr MD [facility] 05-27-2024 Augustina Lawrence MD - 05/27/2024 9:39 AM EDT See [...] messages will go to the RN or plasterer helper first to be addressed. If questions are urgent, please call [phone] and press nurse prompt. For urgent Questions: call my board of education secretary with questions, appts related to chronic pelvic pain, Lupis Chowdary ,fax [phone] For refills, I prefer these be sent through [employer] We also have a nurse coordinatorKaren Francis RN My schedule: I see patients in office Friday/Friday/ and Fridays: virtual visits only documented in this encounter [facility] 05-27-2024 Note HNO ID: [id number] Author: AUGUSTINA VARGAS MD Service: ? Author Type: Physician Type: Progress Notes Filed: 06/06/2024 23:06 Note Text: [facility] SECTION FOR CHRONIC PELVIC PAIN OUTPATIENT VISIT DATE 05/27/2024 OUTPATIENT VISIT TYPE CONSULT REFERRING PROVIDER: No ref. provider found PRIMARY CARE PROVIDER: Ammon Lucas MD PRIMARY SHEARER HELPER: Consultation requested by referring provider above for an opinion regarding Karen Zaidi, and my final recommendations will be communicated back to the requesting physician by way of shared medical record or letter via US mail. CHIEF COMPLAINT/REASON FOR CONSULTATION Chronic pelvic pain evaluation HISTORY OF PRESENT ILLNESS Karen is a 68 year od . who presents for evaluation of chronic pelvic pain. 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 and She [...] possibly saw a varicose vein; then saw PRODUCT MGMT DEV MANAGER dr marino ; told possibly PCS, then vascular surgeon in [place], ultrasound orders in 3 venograms done , [...] is the same She makes herself eat [place] syndrome-styloid surgery She cannot travel She is fully retired Pain is there AND wakes her Pain in left anterior thigh, No PFPT Patient Relations Director Hx: (page 3) Menarche: 14 Currently experiences: Not menstruating Duration of dysmenorrhea symptoms: none Currently missing school/work: No Prior dysmenorrhea treatment: None Current control: Nothing History of STD: Negative history MA intake LMP: No LMP recorded (lmp unknown). Patient is postmenopausal. Cycles: Menopausal Last pap: Pap Results: WNL/neg HPV 03/2023 History of abnormal pap: No [place]: (MA intake) Dyspareunia: both insertional and deep [...] endorses Pain changes with bowel movements: endorses. Marathon scale: dnc Pudendal symptoms: (page 13) Pain [...] not included)... [facility] 05-27-2024 History of Present illness Narrative Images from the original note were not included. [facility] SECTION FOR CHRONIC PELVIC PAIN OUTPATIENT VISIT DATE 05/27/2024 OUTPATIENT VISIT TYPE CONSULT REFERRING PROVIDER: No ref. provider found PRIMARY CARE PROVIDER: Ammon Lucas MD PRIMARY SHEARER HELPER: Consultation requested by referring provider above for an opinion regarding Karen Zaidi, and my final recommendations will be communicated back to the requesting physician by way of shared medical record or letter via US mail. CHIEF COMPLAINT/REASON FOR CONSULTATION Chronic pelvic pain evaluation HISTORY OF PRESENT ILLNESS Karen is a 68 year od . who presents for evaluation of chronic pelvic pain. 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 and She [...] possibly saw a varicose vein; then saw PRODUCT MGMT DEV MANAGER dr marino ; told possibly PCS, then vascular surgeon in [place], ultrasound orders in 3 venograms done , [...] is the same She makes herself eat [place] syndrome-styloid surgery She cannot travel She is fully retired Pain is there & wakes her Pain in left anterior thigh, No PFPT Patient Relations Director Hx: (page 3) Menarche: 14 Currently experiences: Not menstruating Duration of dysmenorrhea symptoms: none Currently missing school/work: No Prior dysmenorrhea treatment: None Current control: Nothing History of STD: Negative history MA intake LMP: No LMP recorded (lmp unknown). Patient is postmenopausal. Cycles: Menopausal Last pap: Pap Results: WNL/neg HPV 03/2023 History of abnormal pap: No [place]: (MA intake) Dyspareunia: both insertional and deep [...] endorses Pain changes with bowel movements: endorses. Marathon scale: dnc Pudendal symptoms: (page 13) Pain [...] Types: Cigarettes Start date: 1983 Quit date: 2011 Years since quittin.6 Passive exposure: Never Smokeless tobacco: Never Vaping Use Vaping status: Never Used Substance Use Topics Alcohol use: Not Currently Drug use: Never PAST SURGICAL HISTORY 2020: PAST SURGICAL HISTORY OF; Right Comment: styloidectomy for shaktoolik syndrome No date: PAST SURGICAL HISTORY OF Comment: R knee menisus repair No date: PAST SURGICAL HISTORY OF Comment: falloption tube tied 11/24/2023: PAST SURGICAL HISTORY OF Comment: right submandibular duct dilation with steroid irrigation No date: REMOVAL GALLBLADDER; N/A Comment: 1980s Patient Relations Director history: see HPI FAMILY HISTORY Problem Relation [...] (FLONASE) 50 mcg/actuation nasal spray Use 1 Roll in the nose as needed for cold/allergy [...] no lesions, non-tender Speculum exam: Deferred Vagina: [place], moist, well-rugated vagina without lesions. non-tender Cervix: [...] obtained in 12 months --END OF FINDING-- Hairspring Adjuster: TRINI Transcribe Date/Time: Apr 30 2024 12:52P [...] PHYSICAL THERAPY You can search for others [email or web address], enter zip or city You can click [...] pain psych,PFPT) 1. documented in this encounter [facility] 05-27-2024 Note Patient Outreach (UR OLMN) KAREN ZAIDI ([id number]) 1955 F Date Time Provider Department 05/27/24 VIET CARR During your visit today, we recorded [...] for genitourinary condition [Z13.89] Order(s):URINALYSIS, REFLEX MICROSCOPIC [[id number]] Order #: [id number] URINALYSIS, REFLEX MICROSCOPIC [[id number]] Order #: [id number]. 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 Malnutrition of moderate degree (HCC) [E44.0] 03/03/2024 Encounter Status:Closed by [facility] on 05/31/24 [facility] 04-26-2024 History of Present illness Narrative Radiology Service Progress Note PATIENT NAME: Karen Zaidi DATE OF SERVICE: April 26, 2024 [...] PATIENT PRESENTS WITH AN IMPLANTABLE OR ATTACHED GOLD ASSAYER: No RADIOLOGY DEPARTMENT: CT; Exam(s) Completed: Abdomen/Pelvis PERIPHERAL IV DATA: Site assessment: Clean,Dry and Intact, Site disposition Discontinued SIGNED BY: TECHNOLOGIST Yunier April 26, 2024 2:30 PM documented in this encounter [facility] 04-26-2024 Note HNO ID: [id number] Author: CHRIS MEDRANO TECHNOLOGIST Service: ? Author Type: Technologist Type: Progress Notes Filed: 04/26/2024 14:30 Note Text: Radiology Service Progress Note PATIENT NAME: Karen Zaidi DATE OF SERVICE: April 26, 2024 [...] PATIENT PRESENTS WITH AN IMPLANTABLE OR ATTACHED GOLD ASSAYER: No RADIOLOGY DEPARTMENT: CT; Exam(s) Completed: Abdomen/Pelvis PERIPHERAL IV DATA: Site assessment: Clean,Dry and Intact, Site disposition Discontinued SIGNED BY: TECHNOLOGIST Yunier April 26, 2024 2:30 PM [facility] 04-26-2024 Nurse Note Radiology Service Progress Note [...] Intact SIGNATURE: Alysha Dale RN PATIENT NAME: Karen Zaidi DATE: April 26, 2024 TIME: 1:22 PM [facility] 04-26-2024 Nurse Note Radiology Service Progress [...] Intact SIGNATURE: Alysha Dale RN PATIENT NAME: Karen Zaidi DATE: April 26, 2024 TIME: 1:22 PM documented in this encounter [facility] 04-21-2024 Telephone encounter Note Called pt to discuss her postop questions. Discussed no restrictions on activity, swimming, driving, etc. Still having some pain in pelvis but flank pain and other symptoms have improved. Inquiring about f/up -- had stent removed on 04/07. Will set up 3 jorge post op f/up. She is seeing gynecology at [facility] on 05/27, will try to coordinate appt w/ Dr. Carr on that day. Destiny Borrero MD [facility] Work Phone: 04-21-2024 Miscellaneous Notes Called pt to discuss her postop questions. Discussed no restrictions on activity, swimming, driving, etc. Still having some pain in pelvis but flank pain and other symptoms have improved. Inquiring about f/up -- had stent removed on 04/07. Will set up 3 jorge post op f/up. She is seeing gynecology at [facility] on 05/27, will try to coordinate appt w/ Dr. Carr on that day. Destiny Borrero MD documented in this encounter [facility] 04-10-2024 Procedure note Karen Zaidi is a 68 year old female [...] autotransplantation PLAN: follow up as scheduled Allen Munoz MD [facility] 04-10-2024 Procedure note Karen Zaidi is a 68 year old female [...] autotransplantation PLAN: follow up as scheduled Allen Munoz MD documented in this encounter [facility] 04-07-2024 History of Present illness Narrative UNIVERSAL [...] Plan of Care Visit completed when applicable. Robel Lawrence RN documented in this encounter [facility] 04-07-2024 Nurse Note The procedure started at ( Time Only): 1246 The procedure ended at: 1247 Was the procedure delayed: Yes: Provider late: Provider in OR The patient left the procedure room at: 1259 Robel Lawrence RN PRE PROCEDURE ASSESSMENT- Cysto Pre-Procedure Vital Signs: BP: 150/83 Pulse: 74 Robel Lawrence RN UNIVERSAL PROTOCOL / SAFETY CHECKLIST Procedure to be performed: Cystoscopy and Stent Extraction Sign in Communication: Completed Time Out: Team Confirms the Correct Patient, Correct Procedure, Correct Site and Site Marking, Correct Position (if applicable). Sign Out Discussion: Completed Robel Lawrence RN POST PROCEDURE NURSE ASSESSMENT Present along with physician during procedure exam. Robel Lawrence RN Instruction sheet given and reviewed and patient verbalizes understanding: yes Post Procedure Antibiotic: None Current pain intensity is rated at 7 on a 0-10 scale. Location: abd/pelvic region & back Pain Character :unable to describe pain Frequency (How often does it occur?) occurs constantly Duration (How long have you had the pain?) unknown Robel Lawrence RN [facility] 04-07-2024 Nurse Note The procedure started at ( Time Only): 1246 The procedure ended at: 1247 Was the procedure delayed: Yes: Provider late: Provider in OR The patient left the procedure room at: 1259 Robel Lawrence RN PRE PROCEDURE ASSESSMENT- Cysto Pre-Procedure Vital Signs: BP: 150/83 Pulse: 74 Robel Lawrence RN UNIVERSAL PROTOCOL / SAFETY CHECKLIST Procedure to be performed: Cystoscopy and Stent Extraction Sign in Communication: Completed Time Out: Team Confirms the Correct Patient, Correct Procedure, Correct Site and Site Marking, Correct Position (if applicable). Sign Out Discussion: Completed Robel Lawrence RN POST PROCEDURE NURSE ASSESSMENT Present along with physician during procedure exam. Robel Lawrence RN Instruction sheet given and reviewed and patient verbalizes understanding: yes Post Procedure Antibiotic: None Current pain intensity is rated at 7 on a 0-10 scale. Location: abd/pelvic region & back Pain Character :unable to describe pain Frequency (How often does it occur?) occurs constantly Duration (How long have you had the pain?) unknown Robel Lawrence RN Actual procedure/procedure scheduled: Yes Performing provider/scheduled provider: Yes Patient was roomed in: Q9- Casualty Claim Adjuster offered:Patient declines Patient arrived in the room [...] Drape. COMPLETED Anesthetic Given:10 cc 2% Lidocaine DIANE Jaime RN took over care. See her note for procedure details. documented in this encounter [facility] 04-07-2024 Nurse Note Actual procedure/procedure scheduled: Yes Performing provider/scheduled provider: Yes Patient was roomed in: Q9- Casualty Claim Adjuster offered:Patient declines Patient arrived in the room [...] care. See her note for procedure details. [facility] 02-19-2024 History of Present illness Narrative REASON [...] performed due to technical problems in the laborer cheesemaking. Venous duplex US - UE 07/18/23: - [...] (FLONASE) 50 mcg/actuation nasal spray Use 1 Roll in the nose as needed for cold/allergy [...] PROBLEMS: Patient is optimally prepared for surgery Viet Carr MD documented in this encounter [facility] 02-19-2024 Instructions Asia Sawyer, SHARON.BUSINESS INTERN - 02/19/2024 1:32 PM EDT PATIENT PREOPERATIVE INSTRUCTIONS Viet Carr MD has scheduled you for your procedure at this surgery center: If no call by 4pm the day before surgery, please call this number. [facility] [place] Scheduling Office: [phone] --[address] [place] [address]. Please read below carefully for your personalized [...] Procedures: - YOU MUST HAVE A RESPONSIBLE SYSTEM SAFETY MANAGER TAKE YOU HOME. A INTERNET MARKETING COORDINATOR OR VICE PRESIDENT CONSULTING SERVICES CANNOT BE MADE A RESPONSIBLE SYSTEM SAFETY MANAGER. - We recommend that a responsible person [...] call the Friday before. Your surgeon s office assistant receptionist will tell you what time to call the office. - If you have not reached the departmental office assistant receptionist by 5 P.M., call [phone] after 5 P.M. the day before your surgery. Please be aware that emergency situations arise, which may delay or change your surgical time. If this happens, we will notify you as soon as possible and regret any inconvenience. If you already have an Advance Directive, please fax a copy to [phone] or email to for it to be [...] and scanned into your chart that day. Asia Sawyer APRN.CNP documented in this encounter [facility] 02-19-2024 History and physical note HISTORY AND PHYSICAL EXAMINATION SERVICE DATE: 02/19/2024 SERVICE TIME: 1:17 PM PRIMARY CARE PHYSICIAN: Ammon Lucas MD Assessment Patient has the following medical conditions which may affect elzbieta-operative course: 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 Sioux's syndrome Sp styloidectomy Other hyperlipidemia Managed on [...] placed in this encounter. REASON FOR VISIT: Kraen Zaidi is a 68 year old female who is scheduled for Procedure(s): 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 (Left) at the request of Viet Ahmadi MD for consultation. My final recommendation will be communicated back to the requesting physician by way of shared medical record or letter. Subjective The patient has the following: ACTIVE PROBLEM LIST Pararenal Abdominal Aortic Aneurysm (Aaa) Without Rupture (Hcc) Sioux's Syndrome Other Hyperlipidemia Ovarian Varices Nutcracker Phenomenon [...] history exists. CHIEF COMPLAINT: Preop exam HPI: Karen Zaidi is a 68 year old female [...] Positive for: peripheral neuropathy (neurontin). Negative for: INSIDE B2B SALES tumor, delirium, dementia, headaches, multiple sclerosis, seizures, [...] chest pain, CHF, DVT/PE, hypertension and recent DE. GI: Pelvic congestion, abdominal and L flank [...] nephrolithiasis, renal failure and urinary tract infection. PRODUCT MGMT DEV MANAGER: See HPI. Endocrine: Negative for: diabetes mellitus, [...] SURGICAL HISTORY OF Right 2020 styloidectomy for shaktoolik syndrome PAST SURGICAL HISTORY OF R knee [...] (FLONASE) 50 mcg/actuation nasal spray Use 1 Roll in the nose as needed for cold/allergy [...] 462 QTC Calculation (Bazett) 438 Calculated P [place] 21 Calculated R [place] 68 Calculated T [place] 69 Impression SINUS BRADYCARDIA OTHERWISE NORMAL ECG No results found for this or any previous visit (from the past 54015 hour(s)). Instructions Given to Patient: Instructions located in the after visit summary. Patient given verbal and written preop instructions and voices comprehension and compliance. SIGNATURE: Asia Sawyer APRN.CNP PATIENT NAME: Karen Zaidi DATE: February 19, 2024 TIME: 1:54 PM PAGER/CONTACT #: [facility] 02-19-2024 History and physical note HISTORY AND PHYSICAL EXAMINATION SERVICE DATE: 02/19/2024 SERVICE TIME: 1:17 PM PRIMARY CARE PHYSICIAN: Ammon Lucas MD Assessment Patient has the following medical conditions which may affect elzbieta-operative course: 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 Sioux's syndrome Sp styloidectomy Other hyperlipidemia Managed on [...] placed in this encounter. REASON FOR VISIT: Karen Zaidi is a 68 year old female who is scheduled for Procedure(s): 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 (Left) at the request of Viet Ahmadi MD for consultation. My final recommendation will be communicated back to the requesting physician by way of shared medical record or letter. Subjective The patient has the following: ACTIVE PROBLEM LIST Pararenal Abdominal Aortic Aneurysm (Aaa) Without Rupture (Hcc) Sioux's Syndrome Other Hyperlipidemia Ovarian Varices Nutcracker Phenomenon [...] history exists. CHIEF COMPLAINT: Preop exam HPI: Karen Zaidi is a 68 year old female [...] Positive for: peripheral neuropathy (neurontin). Negative for: INSIDE B2B SALES tumor, delirium, dementia, headaches, multiple sclerosis, seizures, [...] chest pain, CHF, DVT/PE, hypertension and recent DE. GI: Pelvic congestion, abdominal and L flank [...] nephrolithiasis, renal failure and urinary tract infection. PRODUCT MGMT DEV MANAGER: See HPI. 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 Instructions Given to Patient: Instructions located in the after visit summary. Patient given verbal and written preop instructions and voices comprehension and compliance. SIGNATURE: Asia Sawyer APRN.MARIBEL PATIENT NAME: Karen Zaidi DATE: February 19, 2024 TIME: 1:54 PM PAGER/CONTACT #: documented in this encounter [facility] 02-10-2024 History of Present illness Narrative [facility] - ENT [address] [place] [address], [address] [facility] [id number] SUBJECTIVE: Patient ID: Karen Zaidi is a 68 y.o. female presents today for Chief Complaint Patient presents with S/P submandibular gland dilation HPI: Karen Zaidi is a 68 y.o. female seen to follow-up right submandibular duct dilation. Patient was last seen on 12/02/2023 by Matthew Ramirez PA-C. She underwent right submandibular duct dilation with steroid irrigation. She notes she is doing well overall. She had a URI about three weeks ago that has now resolved. She was not treated with any medications during her recent infection. Patient is scheduled for autotransplantation of kidney on 03/02/2024 at [facility]. She uses Flonase and singular during her symptomatic times. 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 Osteoporosis Pelvic congestion syndrome Peripheral vascular disease ([facility]) Seasonal allergies Submandibular gland swelling 11/12/2023 Visual impairment glasses Past Surgical History: Procedure Laterality Date CATARACT EXTRACTION Bilateral 2018 CHOLECYSTECTOMY COLONOSCOPY COLONOSCOPY N/A 07/23/2018 Performed by Orquidea Christine DO at [facility] DENTAL SURGERY 07/2013 implants Diagnostic cerebral angiogram N/A 03/31/2020 Performed by Melissa Morillo MD at [facility] CARDIAC CATH LABS DIAGNOSTIC VENOGRAM OF IVC AND ILEOCABLE, LEFT RENAL VEIN, SELECTIVE LEFT OVARIAN VEIN CONTRAST AND IVUS VENOGRAMS N/A 07/25/2023 Performed by Erendira Armijo DO at [facility] SPECIAL PROC dilation rt submandibular duct and steroid irrigation Right 11/24/2023 Performed by Sarah Godwin MD at [facility] KIDNEY STONE SURGERY 2019? KNEE CARTILAGE SURGERY MOLE REMOVAL 11/10/2023 right breast OTHER SURGICAL HISTORY 08/31/2020 cranial base ( cranial styloidectomy) 05/2020 also OTHER SURGICAL HISTORY 06/18/2023 venogram OTHER SURGICAL HISTORY 09/09/2023 DIagnostic venogram TUBAL LIGATION Vascular Invasive Diagnostic venogram with IVUS and the ability to measure pressure gradients Bilateral 06/18/2023 Performed by Erendira Armijo DO at [facility] CARDIAC CATH LABS Family History Problem [...] or concerns: . Non-emergent messages received through [employer] may take up to 2 business days for a response. Scribe Statement: Scribed for and in the presence of Sarah Godwin MD by Ambika Martin (scribe). Ambika Martin [...] this chart were generated using voice recognition Makeblock dictation software. Although every effort was made to ensure the accuracy of this automated labor supervisor, some errors in labor supervisor may have occurred. [facility] Instructions Ambika Martin - 02/10/2024 9:45 [...] or concerns: . Non-emergent messages received through [employer] may take up to 2 business days for a response. [facility] Miscellaneous Notes [facility] email message to cancel surgery being done robotic procedure instead at the Clinic. documented in this encounter [facility] 01-01-2024 Miscellaneous Notes Sounds good thanks Mrs. Zaidi called to let Dr. Fox know that Urology is able to do the proposed procedure robotically and that she is scheduled to have it done on March 02. Estephania Mojica Machine Tailer documented in this encounter [facility] 12-25-2023 History of Present illness Narrative [...] performed due to technical problems in the laborer cheesemaking. Venous duplex US - UE 07/18/23: - [...] (FLONASE) 50 mcg/actuation nasal spray Use 1 Roll in the nose as needed for cold/allergy [...] Patient is optimally prepared for the surgery Viet Carr MD documented in this encounter [facility] 12-22-2023 History of Present illness Narrative Images from the original note were not included. PATIENT: Karen Zaidi [id number] NEW PATIENT REFERRING MD: Rina Fox 12/20/2023 Chief Complaint Consult, Nutcracker phenomenon of renal vein Referral Consultation requested by Dr. Fox for an opinion regarding Nutcracker phenomenon of renal vein. My final recommendations will be communicated back to the requesting physician by way of shared Medical record or letter to requesting physician via US mail. History of Present Illness Karen Zaidi is a very pleasant 68 year old female who presents with a history of Coronary artery sclerosis, AAA, tension headaches, colon polyp, dysphagia, PVD, OP, female pelvic congestion syndrome, jugular vein stenosis Left flank pain and pain in pelvis region (feels like sitting on cucumber) [place] this started one year ago. Thought it [...] Dr. Fox 12/18/2023 HISTORY OF PRESENT ILLNESS: Karen Zaidi is a 68 year old female [...] elevating her legs. with PMH significant for Sioux Syndrome, jugular vein stenosis (asymptomatic), HLD, nutcracker [...] fluticasone (FLONASE) 50 mcg/actuation nasal spray 1 Roll, NASAL, NEEDED, Take in allergy season
gabapentin [...] performed due to technical problems in the laborer cheesemaking. 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 No DVT Diagnostic venography 09/09/2023 -large diameter left ovarian vein with avid reflux from the level of the left renal vein into a large group of pelvic varicosities. Assessment: Karen Zaidi is a very pleasant 68 year [...] for renal vein transposition (msg sent through [employer]) Scribe Attestation: By signing my name below, [...] Deleon MD [facility] Medical Decision Making: Problems: Moderate: New problem with uncertain prognosis Data: Unique test result(s) reviewed: 1 Unique test(s) ordered: 1 Risk: Moderate: Moderate risk from testing/treatment Medical Decision Making Level: 4 - Moderate documented in this encounter [facility] 12-22-2023 Nurse Note Summary: Bladder S can Patient PVR recorded: 0 mL LUCIAN Rodriguez documented in this encounter [facility] 12-18-2023 History of Present illness Narrative Images from the original note were not included. [facility] DEPARTMENT OF VASCULAR SURGERY OUTPATIENT VISIT DATE December 18, 2023 OUTPATIENT VISIT TYPE CONSULTATION SERVICE DATE: 12/18/2023 SERVICE TIME: 8:49 AM PRIMARY CARE PHYSICIAN: No primary care provider on file. CHIEF COMPLAINT: Nutcracker Syndrome HISTORY OF PRESENT ILLNESS: Karen Zaidi is a 68 year old female [...] elevating her legs. with PMH significant for Sioux Syndrome, jugular vein stenosis (asymptomatic), HLD, nutcracker [...] performed due to technical problems in the laborer cheesemaking. Venous duplex US - UE 07/18/23: - [...] (FLONASE) 50 mcg/actuation nasal spray Use 1 Roll in the nose as needed for cold/allergy [...] Right: palpable - Left: palpable IMPRESSION: Ms. Karen Zaidi is a 68 year old female [...] answered. SIGNATURE: Rina Fox MD PATIENT NAME: Karen Zaidi DATE: December 18, 2023 TIME: 8:49 AM documented in this encounter [facility] 12-12-2023 Miscellaneous Notes Appt scheduled 12/18/[address] Cole office documentation Called and informed patient that [...] she can be scheduled appropriately. Estephania Mojica Machine Tailer documented in this encounter [facility] 12-02-2023 History of Present illness Narrative [facility] - ENT [address] [facility] [address], [address] [facility] [address] SUBJECTIVE: Patient ID ([id number]): Karen Zaidi is a 68 y.o. 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 Osteoporosis Pelvic congestion syndrome Peripheral vascular disease ([facility]) Seasonal allergies Submandibular gland swelling 11/12/2023 Visual impairment glasses Past Surgical History: Procedure Laterality Date CATARACT EXTRACTION Bilateral 2018 CHOLECYSTECTOMY COLONOSCOPY COLONOSCOPY N/A 07/23/2018 Performed by Orquidea Christine DO at [facility] D[facility] 07/2013 implants Diagnostic cerebral angiogram N/A 03/31/2020 Performed by Melissa Morillo MD at [facility] CARDIAC CATH LABS DIAGNOSTIC VENOGRAM OF IVC AND ILEOCABLE, LEFT RENAL VEIN, SELECTIVE LEFT OVARIAN VEIN CONTRAST AND IVUS VENOGRAMS N/A 07/25/2023 Performed by Erendira Armijo DO at [facility] SPECIAL PROC dilation rt submandibular duct and steroid irrigation Right 11/24/2023 Performed by Sarah Godwin MD at [facility] KIDNEY STONE SURGERY 2019? KNEE CARTILAGE SURGERY MOLE REMOVAL 11/10/2023 right breast OTHER SURGICAL HISTORY 08/31/2020 cranial base ( cranial styloidectomy) 05/2020 also OTHER SURGICAL HISTORY 06/18/2023 venogram OTHER SURGICAL HISTORY 09/09/2023 DIagnostic venogram TUBAL LIGATION Vascular Invasive Diagnostic venogram with IVUS and the ability to measure pressure gradients Bilateral 06/18/2023 Performed by Erendira Armijo DO at [facility] CARDIAC CATH LABS Family History Problem [...] this chart were generated using voice recognition Makeblock dictation software. Although every effort was made to ensure the accuracy of this automated labor supervisor, some errors in labor supervisor may have occurred. Matthew Ramirez PA-C 12/02/23 1258 documented in this encounter [facility] 11-20-2023 Miscellaneous Notes PATIENT NOTIFIED WITH SURGERY TIME OF 12:15 . TOLD TO ARRIVE 2 HOURS PRIOR. documented in this encounter [facility] 11-20-2023 Telephone encounter Note PATIENT NOTIFIED WITH SURGERY TIME OF 12:15 . TOLD TO ARRIVE 2 HOURS PRIOR. [facility] 11-12-2023 History and physical note PRE-ADMISSION TESTING HISTORY AND PHYSICAL EXAM DATE: 11/12/23 PCP: AMMON LUCAS MD HISTORY OF PRESENT ILLNESS: Karen Zaidi, a 68 y.o. White or female, presents to [facility] for a pre-surgical H&P. The patient has been diagnosed with Submandibular gland swelling [R60.0] . 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 De Leon at [facility]. 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 Osteoporosis Pelvic congestion syndrome Peripheral vascular disease ([facility]) Seasonal allergies Submandibular gland swelling 11/12/2023 Visual impairment glasses PAST SURGICAL HISTORY: Past Surgical History: Procedure Laterality Date CATARACT EXTRACTION Bilateral 2018 CHOLECYSTECTOMY COLONOSCOPY COLONOSCOPY N/A 07/23/2018 Performed by Orquidea Christine DO at [facility] 07/2013 implants Diagnostic cerebral angiogram N/A 03/31/2020 Performed by Melissa Morillo MD at [facility] CARDIAC CATH LABS DIAGNOSTIC VENOGRAM OF IVC AND ILEOCABLE, LEFT RENAL VEIN, SELECTIVE LEFT OVARIAN VEIN CONTRAST AND IVUS VENOGRAMS N/A 07/25/2023 Performed by Erendira Armijo DO at [facility] SPECIAL PROC KIDNEY STONE SURGERY 2019? KNEE CARTILAGE SURGERY MOLE REMOVAL 11/10/2023 right breast OTHER SURGICAL HISTORY 08/31/2020 cranial base ( cranial styloidectomy) 05/2020 also OTHER SURGICAL HISTORY 06/18/2023 venogram OTHER SURGICAL HISTORY 09/09/2023 DIagnostic venogram TUBAL LIGATION Vascular Invasive Diagnostic venogram with IVUS and the ability to measure pressure gradients Bilateral 06/18/2023 Performed by Erendira Armijo DO at [facility] CARDIAC CATH LABS FAMILY HISTORY: Family [...] Constitutional: Negative. HENT: Seasonal allergies, chronic rhinitis, Sioux syndrome Eyes: Negative. Respiratory: Negative for apnea, [...] the most recent lab values available in [facility] at the time of the office visit and additional labs may have been drawn since that time. ASSESSMENT / DIAGNOSIS: Submandibular gland swelling [R60.0] PLAN: Karen Zaidi is scheduled for Linked Surgery: Sialendoscopy Right Submandibular Duct - Right on 11/24/[address] Godwin. Augustina Shi APRN-MARIBEL 11/12/23 1442 [employer] Work Phone: 11-12-2023 History and physical note PRE-ADMISSION TESTING HISTORY AND PHYSICAL EXAM DATE: 11/12/23 PCP: AMMON LUCAS MD HISTORY OF PRESENT ILLNESS: Karen Zaidi, a 68 y.o. White or female, presents to [facility] for a pre-surgical H&P. The patient has been diagnosed with Submandibular gland swelling [R60.0] . 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 De Leon at [facility]. 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 Osteoporosis Pelvic congestion syndrome Peripheral vascular disease ([facility]) Seasonal allergies Submandibular gland swelling 11/12/2023 Visual impairment glasses PAST SURGICAL HISTORY: Past Surgical History: Procedure Laterality Date CATARACT EXTRACTION Bilateral 2018 CHOLECYSTECTOMY COLONOSCOPY COLONOSCOPY N/A 07/23/2018 Performed by Orquidea Christine DO at [facility] 07/2013 implants Diagnostic cerebral angiogram N/A 03/31/2020 Performed by Melissa Morillo MD at [facility] CARDIAC CATH LABS DIAGNOSTIC VENOGRAM OF IVC AND ILEOCABLE, LEFT RENAL VEIN, SELECTIVE LEFT OVARIAN VEIN CONTRAST AND IVUS VENOGRAMS N/A 07/25/2023 Performed by Erendira Armijo DO at [facility] SPECIAL PROC KIDNEY STONE SURGERY 2019? KNEE CARTILAGE SURGERY MOLE REMOVAL 11/10/2023 right breast OTHER SURGICAL HISTORY 08/31/2020 cranial base ( cranial styloidectomy) 05/2020 also OTHER SURGICAL HISTORY 06/18/2023 venogram OTHER SURGICAL HISTORY 09/09/2023 DIagnostic venogram TUBAL LIGATION Vascular Invasive Diagnostic venogram with IVUS and the ability to measure pressure gradients Bilateral 06/18/2023 Performed by Erendira Armijo DO at [facility] CARDIAC CATH LABS FAMILY HISTORY: Family [...] Constitutional: Negative. HENT: Seasonal allergies, chronic rhinitis, Sioux syndrome Eyes: Negative. Respiratory: Negative for apnea, [...] the most recent lab values available in [facility] at the time of the office visit and additional labs may have been drawn since that time. ASSESSMENT / DIAGNOSIS: Submandibular gland swelling [R60.0] PLAN: Karen Zaidi is scheduled for Linked Surgery: Sialendoscopy Right Submandibular Duct - Right on 11/24/[address] Godwin. ED Jean 11/12/23 1442 documented in this encounter [facility] 11-12-2023 Instructions Marielle Rivero RN - 11/12/2023 1:15 PM EST Your surgery/procedure is scheduled at [facility] on 11/24/2011 at per surgeon Arrival Timeper surgeon [facility] Address: [address] [place] [address] in [address]ing lot located on [facility]. Report to the Entrance B. Check in at the information desk the surgery. The waiting room located on the second floor. If you have any questions prior to surgery, please call Pre-Admission Clinic at [phone] between 7:30 am and 4:30 pm Friday through Friday. If you have questions the morning of surgery, please call the Pre-op Department at [phone]. PLEASE FOLLOW THESE INSTRUCTIONS OR YOUR SURGERY [...] would like to schedule therapy at a [facility] Rehab facility, please call [phone] ([phone]). Do not use lotions, creams, powders, perfume, make up, cologne or after-shaves day of surgery. Remove ALL jewelry including wedding rings, body piercings,hair extensions that contain metal, nail kazakh, make-up, and contact lens. You may brush [...] RIGHTS AND RESPONSIBILITIES As a patient at [facility], you have the right to: Receive medical care and be informed of who is taking care of you Be treated with dignity and respect Have a family member/livestock sales representative of choice and your physician notified of your admission Receive information and actively participate in decisions about your care and treatment Refuse care, treatment and services Decide who may provide your support and speak for you Access samaritan and spiritual services Participate in ethical issues [...] of hospital charges and payment methods Patient/patient livestock sales representative responsibilities are to: Provide information about [...] promptly as possible documented in this encounter [facility] 10-08-2023 Evaluation note Encounter Date Diagnosis Assessment Notes Sep, Abnormal chest CT (ICD-10 - R93.89) Only [employer] Other 12-19-2023 History of Present illness Narrative* Sarah Godwin MD - 09/30/2023 3:15 PM EST [facility] - ENT [address] [place] [address], [address] [place] [phone] SUBJECTIVE: Patient ID: Karen Zaidi is a 68 y.o. female presents today for Chief Complaint Patient presents with SNHL HPI: Karen Zaidi is a 68 y.o. female that [...] submandibular glands. 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 De Leon at [facility]. She states that she still had intermittent [...] rhinitis Dental disease implants Dysphagia, pharyngeal phase Sioux's syndrome Fractures left arm Headache Jugular vein stenosis Osteoporosis Pelvic congestion syndrome Peripheral vascular disease (CMS-HCC) Seasonal allergies Visual impairment Past Surgical History: Procedure Laterality Date CATARACT EXTRACTION Bilateral 2018 CHOLECYSTECTOMY COLONOSCOPY COLONOSCOPY N/A 07/23/2018 Performed by Orquidea Christine DO at [facility] DENTAL SURGERY 07/2013 implants Diagnostic cerebral angiogram N/A 03/31/2020 Performed by Melissa Morillo MD at [facility] CARDIAC CATH LABS DIAGNOSTIC VENOGRAM OF IVC AND ILEOCABLE, LEFT RENAL VEIN, SELECTIVE LEFT OVARIAN VEIN CONTRAST ANDIVUS VENOGRAMS N/A 07/25/2023 Performed by Erendira Armijo DO at [facility] SPECIAL PROC KIDNEY STONE SURGERY 2018? KNEE CARTILAGE SURGERY OTHER SURGICAL HISTORY 08/31/2020 cranial base ( cranial styloidectomy) 05/2020 also OTHER SURGICAL HISTORY 06/18/2023 venogram TUBAL LIGATION Vascular Invasive Diagnostic venogram with IVUS and the ability to measure pressure gradients Bilateral 06/18/2023 Performed by Erendira Armijo DO at [facility] CARDIAC CATH LABS Family History Problem [...] affect and grossly normal cranial nerves ASSESSMENT/PLAN: Shrei was seen today for snhl. Diagnoses and [...] nodules or obtain referral to a local surgical coder from her PCP. We discussed endoscopic surgical intervention involving endoscoping approach to the right Linch'sduct for dilation and steroid irrigation and for assessment for any other abnormalities. I recommended right sialendoscopy for therapeutic dilation of the Warthin's duct on the right and possible stone retrieval and infiltration of steroid. Indications, risks, benefits, and alternatives were discussed. Patient may call Oliver at [phone] to schedule surgery. We discussed that she may benefit from physical therapy for the right temporomandibular joint. Follow up post op. The patient will contact my office if there are any additional questions or concerns: . Non-emergent messages received through [employer] may take up to 2 business days [...] this chart were generated using voice recognition [employer] dictation software. Although every effort was made to ensure the accuracy of this automated labor supervisor, some errors in labor supervisor may have occurred. [facility] Instructions* Patient Instructions* Deandre Goodwin - 09/30/2023 [...] were discussed. Patient may call Oliver at [phone] to schedule surgery. We discussed that she may benefit from physical therapy for the right temporomandibular joint. Follow up post op. The patient will contact my office if there are any additional questions or concerns: . Non-emergent messages received through [employer] may take up to 2 business days for a response. documented in this encounterBarre City HospitalRisktail [id number] Evaluation note* Encounter Date Diagnosis Assessment Notes Treatment Notes Treatment Clinical Notes Aug, Pelvic congestion syndrome (ICD-10 - N94.89) Referral entered as pt request. Aug, Renal vein occlusion (ICD-10 - I82.3) Referral entered to Dr. Camp. [employer] Other [id number] Miscellaneous Notes* Telephone Encounter - Shanda Mays [...] would like to re-schedule an appointment with [facility] and cell number: [phone] Diagnosis: pelvic congestion syndrome - renal vein stenosis Kind Regards, Laura Terfous [facility]* Encounter Date Diagnosis Assessment [...] Weight loss noted, encouraged small frequent meals. [employer] Other 09-20-2023 Evaluation note* Encounter Date Diagnosis Assessment Notes Treatment Notes Treatment Clinical Notes Jun, Neuropathic pain (ICD-10 - M79.2) Previously on med. 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 Declines referral back to ENT for potential R PE tube. Discussed nasal spray and OTC decongestants that could help discomfort. [employer] Other 08-25-2023 Evaluation note* Encounter Date Diagnosis Assessment Notes Treatment Notes Treatment Clinical Notes May, Thrush (ICD-10 - B37.0) Finish nystatin as prescribed May, Abdominal 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, unspecified part (ICD-10 - I71.40) Continue screening a [employer]. [employer] Other 08-17-2023 Evaluation note* Encounter Date Diagnosis [...] understanding and is agreeable to treatment plan [employer] Other 05-02-2023 Evaluation note* Encounter Date Diagnosis [...] understanding and is agreeable with treatment plan. [employer] Other 05-02-2023 Evaluation note* Encounter Date Diagnosis Assessment Notes Treatment Notes Treatment Clinical Notes February, Nephrolithiasis (ICD-10 - N20.0) Discussed differential - agrees to imaging and She is established with Dr. Monroe. They advised she go to ER or come here for imaging and assessment. [employer] Other 02-10-2023 Evaluation note* Encounter Date Diagnosis [...] understanding and is agreeable to treatment plan [employer] Other 01-19-2023 Evaluation note* Encounter Date Diagnosis Assessment Notes Treatment Notes Treatment Clinical Notes Oct, Allergic reaction, subsequent encounter (ICD-10 - T78.40XD) Karen Hunter [employer] Other 10-16-2022 Evaluation note* Encounter Date Diagnosis [...] understanding and is agreeable to treatment plan [employer] Other 12-03-2021 Evaluation note* Encounter Date Diagnosis Assessment Notes Treatment Notes Treatment Clinical Notes Sep, Herpes zoster without complication (ICD-10 - B02.9) Take the valacyclovir as prescribed until gone. Use the viscous lidocaine to the rash as needed for pain. Follow-up with your family physician if no improvement in 2 to 3 days. [employer] Other 10-17-2021 Evaluation note* Encounter Date Diagnosis Assessment Notes Treatment Notes Treatment Clinical Notes Jul, Herpes zoster without complication (ICD-10 - B02.9) [employer] Other Evaluation noteNo InformationNort [employer] Other Evaluation note* Diagnosis Nutcracker phenomenon of renal vein- Primary [facility] Diagnosis Nutcracker phenomenon of renal vein- Primary Family history of aneurysm Family history of other condition Aortic ectasia, abdominal (HCC) Abdominal aortic ectasia documented in this [facility]* Diagnosis Nutcracker phenomenon of renal vein- Primary Preop testing Preoperative examination, unspecified Nutcracker phenomenon of renal vein Preop testing Preoperative examination, unspecified [facility] Diagnosis 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 Preop testing Preoperative examination, unspecified documented in this encounter [facility]* Diagnosis Screening for genitourinary condition Screening for other and unspecified genitourinary condition Nutcracker phenomenon of renal vein Preop testing Preoperative examination, unspecified documented in this encounter [facility]* Diagnosis Screening for genitourinary condition Screening for other and unspecified genitourinary condition Nutcracker phenomenon of renal vein Preop testing Preoperative examination, unspecified documented in this encounter [facility]* Diagnosis Nutcracker phenomenon of renal vein- Primary Abnormal coagulation profile Nutcracker phenomenon of renal vein documented [facility] this [facility]* Diagnosis Preop examination- Primary Preoperative examination, unspecified 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 Other disorder of muscle, ligament, and fascia Other hyperlipidemia Ovarian varices Nutcracker phenomenon of renal vein 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 * Assessment & Plan Note - Asia Sawyer APRN.CNP - 02/19/2024 1:54 PM EDT Associated Problem(s): Narcotic drug use Pain managed with norco PRN * Assessment & Plan Note - Asia Sawyer APRN.CNP - 02/19/2024 1:54 PM EDT Associated Problem(s): Nutcracker phenomenon of renal vein With pelvic congestion Patient endorses abdominal and L flank pain with radiation to pelvis * Assessment & Plan Note - Asia Sawyer APRN.CNP - 02/19/2024 1:51 PM EDT Associated Problem(s): Ovarian varices 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 Plan for surgery * Assessment & Plan Note - Asia Sawyer APRN.CNP - 02/19/2024 1:50 PM EDT Associated Problem(s): Other hyperlipidemia Managed on Atorvastatin * Assessment & Plan Note - Asia Sawyer APRN.CNP - 02/19/2024 1:50 PM EDT Associated Problem(s): Sioux's syndrome Sp styloidectomy * Assessment & Plan Note - Asia Sawyer APRN.CNP - 02/19/2024 1:50 PM EDT Associated Problem(s): 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 documented in this encounter [facility]* Diagnosis Nutcracker phenomenon of renal vein- Primary Nutcracker phenomenon of renal vein documented in this encounter [facility]* Diagnosis Screening for genitourinary condition Screening for other and unspecified genitourinary condition Nutcracker phenomenon of renal vein [facility] Diagnosis Nutcracker phenomenon of renal vein- Primary Nutcracker phenomenon of renal vein documented in this encounter [facility]* Diagnosis Encounter for aftercare following kidney transplant- Primary Aftercare following organ transplant Malnutrition of moderate degree (HCC) Malnutrition of moderate degree documented in this encounter [facility]* Diagnosis Flank pain- Primary Abdominal pain, unspecified site documented in this encounter [facility]* Diagnosis Preop examination- Primary Preoperative examination, unspecified 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 Other disorder of muscle, ligament, and fascia Other hyperlipidemia Ovarian varices Nutcracker phenomenon of renal vein Narcotic drug use Sinus bradycardia on ECG Other specified cardiac dysrhythmias Screening for genitourinary condition Screening for other and unspecified genitourinary condition documented in this encounter [facility]* Diagnosis Preop examination- Primary Preoperative examination, unspecified 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 Other disorder of muscle, ligament, and fascia Other hyperlipidemia Ovarian varices Nutcracker phenomenon of renal vein Narcotic drug use Sinus bradycardia on ECG Other specified cardiac dysrhythmias High-tone pelvic floor dysfunction- Primary Other specified disorders of female genital organs 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 Unspecified symptom associated with female genital organs documented in this encounter [facility]* Diagnosis Preop examination- Primary Preoperative examination, unspecified 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 Other disorder of muscle, ligament, and [...] and myositis, unspecified documented in this encounter [facility]* Diagnosis Preop examination- Primary Preoperative examination, unspecified 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 Other disorder of muscle, ligament, and fascia Other hyperlipidemia Ovarian varices Nutcracker phenomenon of renal vein Narcotic drug use Sinus bradycardia on ECG Other specified cardiac dysrhythmias High-tone pelvic floor dysfunction Other specified disorders of female genital organs documented in this encounter [facility]* Diagnosis Preop examination- Primary Preoperative examination, unspecified 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 Other disorder of muscle, ligament, and fascia Other hyperlipidemia Ovarian varices Nutcracker phenomenon of renal vein Narcotic drug use Sinus bradycardia on ECG Other specified cardiac dysrhythmias High-tone pelvic floor dysfunction- Primary Other specified disorders of female genital organs documented in this encounter [facility]* Diagnosis Preop examination- Primary Preoperative examination, unspecified 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 Other disorder of muscle, ligament, and fascia Other hyperlipidemia Ovarian varices Nutcracker phenomenon of renal vein Narcotic drug use Sinus bradycardia on ECG Other specified cardiac dysrhythmias High-tone pelvic floor dysfunction Other specified disorders of female genital organs documented in this encounter [facility]* Diagnosis Preop examination- Primary Preoperative examination, unspecified 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 Other disorder of muscle, ligament, and fascia Other hyperlipidemia Ovarian varices Nutcracker phenomenon of renal vein Narcotic drug use Sinus bradycardia on ECG Other specified cardiac dysrhythmias Pelvic pain in female- Primary Unspecified symptom associated with female genital organs documented in this encounter [facility]* Diagnosis Pulmonary nodule- Primary Other diseases of lung, not elsewhere classified [facility] Diagnosis Preop examination- Primary Preoperative examination, unspecified 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 Other disorder of muscle, ligament, and fascia Other hyperlipidemia Ovarian varices Nutcracker phenomenon of renal vein Narcotic drug use Sinus bradycardia on ECG Other specified cardiac dysrhythmias Abnormal finding of diagnostic imaging- Primary Other nonspecific (abnormal) findings on radiological and other examinations of body structure documented in this encounter [facility]* Diagnosis Submandibular gland swelling- Primary Chronic sialoadenitis Sensorineural hearing loss (SNHL), bilateral [facility] Diagnosis Chronic sialoadenitis- Primary [facility] Diagnosis Submandibular gland swelling Chronic sialoadenitis Preop testing- Primary Unspecified pre-operative examination Hearing disorder retrocochlear Unspecified sensorineural hearing loss Submandibular gland swelling Chronic sialoadenitis documented [facility]* Diagnosis Submandibular gland swelling- Primary Chronic sialoadenitis documented [facility]* Diagnosis Hyperlipidemia, unspecified hyperlipidemia type- Primary documented [facility]* Diagnosis Well woman exam with routine gynecological exam Routine gynecological examination Breast cancer screening by mammogram Postmenopausal state Asymptomatic postmenopausal status (age-related) (natural) [facility]* Diagnosis Preop examination- Primary Preoperative examination, unspecified 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 Other disorder of muscle, ligament, and fascia Other hyperlipidemia Ovarian varices Nutcracker phenomenon of renal vein Narcotic drug use Sinus bradycardia on ECG Other specified cardiac dysrhythmias High-tone pelvic floor dysfunction- Primary Other specified disorders of female genital organs Trigger point of abdomen Myalgia, other site Other osteoporosis without current pathological fracture documented in this encounter [facility]* Diagnosis Preop examination- Primary Preoperative examination, unspecified Pararenal abdominal 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 Other disorder of muscle, ligament, and fascia Other hyperlipidemia Ovarian varices Nutcracker phenomenon of renal vein Narcotic drug use Sinus bradycardia on ECG Other specified cardiac dysrhythmias Primary osteoarthritis of right knee Primary localized osteoarthrosis, lower leg Derangement of unsp meniscus due to old tear/inj, right knee documented in this encounter [facility]* Diagnosis Preop examination- Primary Preoperative examination, unspecified Pararenal abdominal 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 Other disorder of muscle, ligament, and fascia Other hyperlipidemia Ovarian varices Nutcracker phenomenon of renal vein Narcotic drug use Sinus bradycardia on ECG Other specified cardiac dysrhythmias Osteoporosis, post-menopausal- Primary Senile osteoporosis Coronary artery disease involving nondalton coronary artery of nondalton heart without angina pectoris Family history of cardiovascular disease Family history of other cardiovascular diseases History of fracture of pelvis Personal history of traumatic fracture Family history of osteoporosis in mother Early menopause occurring in patient age younger than 45 years Vitamin D deficiency Unspecified vitamin D deficiency Encounter to discuss test results Other specified counseling Encounter for medication review and counseling Other specified counseling Counseling on health promotion and disease prevention Other specified counseling [facility]* Diagnosis Preop examination- Primary Preoperative examination, unspecified Pararenal abdominal 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 Other disorder of muscle, ligament, and fascia Other hyperlipidemia Ovarian varices Nutcracker phenomenon of renal vein Narcotic drug use Sinus bradycardia on ECG Other specified cardiac dysrhythmias High-tone pelvic floor dysfunction- Primary Other specified disorders of female genital organs Trigger point of abdomen Myalgia, other site documented in this encounter [facility]* Diagnosis Preop examination- Primary Preoperative examination, unspecified Pararenal abdominal 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 Other disorder of muscle, ligament, and fascia Other hyperlipidemia Ovarian varices Nutcracker phenomenon of renal vein Narcotic drug use Sinus bradycardia on ECG Other specified cardiac dysrhythmias Vitamin B12 deficiency- Primary Other B-complex deficiencies Heart disease, unspecified documented in this encounter [facility]* Diagnosis Preop examination- Primary Preoperative examination, unspecified Pararenal abdominal 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 Other disorder of muscle, ligament, and fascia Other hyperlipidemia Ovarian varices Nutcracker phenomenon of renal vein Narcotic drug use Sinus bradycardia on ECG Other specified cardiac dysrhythmias Primary osteoarthritis of right knee- Primary Primary localized osteoarthrosis, lower leg documented in this encounter [facility]* Diagnosis Pulmonary nodule- Primary Other diseases of lung, not elsewhere classified [facility] encounter [facility] noteNo assessment information availableFirGenesis Hospital Work Phone: Hisogno general Narrative - Reported* Type Description Date Medical History Other seasonal allergic rhinitis Medical History shaktoolik syndrome Surgical History cholecystectomy Surgical History arthroscopic knee surgery Surgical History oral surgery Surgical History colonoscopy Surgical History tubal ligation Surgical History styloidectomy Hospitalization History see above [employer] Other Hispjly general Narrative - Reported* Type Description Date Medical History Other seasonal allergic rhinitis Medical History shaktoolik syndrome Medical History shingles Surgical History cholecystectomy Surgical History arthroscopic knee surgery Surgical History oral surgery Surgical History colonoscopy Surgical History tubal ligation Surgical History styloidectomy Hospitalization History see above [employer] Other Hisbxpn general Narrative - Reported* Type Description Date Medical History Other seasonal allergic rhinitis Medical History shaktoolik syndrome Medical History shingles Medical History Renal stone Surgical History cholecystectomy Surgical History arthroscopic knee surgery Surgical History oral surgery Surgical History colonoscopy Surgical History tubal ligation Surgical History styloidectomy b/l Hospitalization History see above [employer] Other History general Narrative - Reported* Type Description Date Medical History Other seasonal allergic rhinitis Medical History shaktoolik syndrome Medical History shingles Medical History Renal stone Medical History Pelvic venous congestive syndrom e Surgical History cholecystectomy Surgical History arthroscopic knee surgery Surgical History oral surgery Surgical History colonoscopy Surgical History tubal ligation Surgical History styloidectomy b/l Hospitalization History see above [employer] Other Hiswwja general Narrative - Reported* Type Description Date Medical History Other seasonal allergic rhinitis Medical History shaktoolik syndrome Medical History shingles Medical History Renal stone Medical History Pelvic venous congestive syndrom e Surgical History cholecystectomy Surgical History arthroscopic knee surgery Surgical History oral surgery Surgical History colonoscopy Surgical History tubal ligation Surgical History styloidectomy b/l Surgical History Venogram Hospitalization History see above [employer] Other InstructionsNot on filedocumented in this encounter [facility]Not on filedocumented in this encounter [facility] SystemInstructionsNot on filedocumented in this encounter [facility] (narrative)* Outpatient Procedure (Routine) - Authorized Specialty Diagnoses / Procedures Referred By Nori moore Referred To Contact [facility] Diagnoses Nutcracker phenomenon of renal vein Procedures US RENAL ARTERY ALYSON VAS LAB DUP-SCAN ARTL STEVAN ABDL/PEL/SCROT&/RPR ORGN COM Rina Fox MD [address] [place] [address] [facility] [place] [address] [address] Referral ID Status Reason Start Date Expiration Date Visits Requested Visits Authorized [id number] Authorized Auto-Generat ed Referral 12/12/2023 12/11/2024 1 1 [facility] for referral (narrative)* Outpatient Procedure (Routine) - Authorized Specialty Diagnoses / Procedures Referred By Nori moore Referred To Contact [facility] Diagnoses Nutcracker phenomenon of renal vein Procedures US RENAL VENOUS ALYSON VAS LAB DUP-SCAN ARTL STEVAN ABDL/PEL/SCROT&/RPR ORGN COM Rina Fox MD [address] [place] [address] [place] [id number] Referral ID Status Reason Start Date Expiration Date Visits Requested Visits Authorized [id number] Authorized Auto-Generat ed Referral 12/17/2023 12/16/2024 1 1 [facility] for referral (narrative)* Outpatient Procedure (Routine) - Authorized Specialty Diagnoses / Procedures Referred By Contac t Referred To Contact [facility] Diagnoses Nutcracker phenomenon of renal vein Procedures US VENOUS INCOMPETENCY ALYSON VAS LAB DUP-SCAN XTR VEINS COMPLETE BILATERAL STUDY Rina Fox MD [address] [place] [address]. [place] [id number] [place] [address] Referral ID Status Reason Start Date Expiration Date Visits Requested Visits Authorized [id number] Authorized Auto-Generat ed Referral 12/17/2023 12/16/2024 1 1 [facility] for referral (narrative)* Outpatient Procedure (Routine) - Authorized Specialty Diagnoses / Procedures Referred By Contjoo t Referred To Contact [facility] Diagnoses Nutcracker phenomenon of renal vein Preop testing Procedures ECG COMPLETE ECG ROUTINE ECG W/LEAST 12 LDS W/I&R Kira Eduardo APRN.CNP [address] [facility] [place] [address] [place] [address] Referral ID Status Reason Start Date Expiration Date Visits Requested Visits Authorized [id number] Authorized Auto-Generat ed Referral 12/19/2023 12/18/2024 1 1 [facility] for referral (narrative)No reason for referral information availableFlower Hospital Work Phone: Reason for visit Narrative* Consult, Test, Treat (Routine) - Closed Specialty Diagnoses / Procedures Referred By Contac t Referred To Contact Orthopedics Diagnoses Primary osteoarthritis of right knee Derangement of unsp meniscus due to old tear/inj, right knee Procedures CONSULT PANEL TO ORTHOPAEDICS OFFICE/OUTPATIENT [facility] 60 MINUTES Gi Siddiqi MD [address] [place] [address] Phone: tel: fax: Referral ID Status Reason Start Date Expiration Date V isits Requested Visits Authorized [id number] Closed PCP Requested Referral 02/02/2025 02/02/2026 1 1 [facility] Summary Purpose Family History No Family History Records Found Relationship Condition Age at Onset Recorded Date/T daisy mother Cerebral aneurysm Unknown father Abdominal aortic aneurysm (AAA) Unknown brother Unknown father Unknown Aneurysm Unknown mother Aneurysm Unknown Unknown Advance Directives No Advanced Directives Records Found Advance Directive Response Recorded Date/ Time Advance Directives No May 12 9:54pm Reason for Referral Specialty Diagnoses / Procedures Referred By Contac t Referred To Contact Diagnoses Preop testing Procedures ECG 12 lead Ibis Rodriguez MD [address] [facility], [address] [place] [id number] Referral ID Status Reason Start Date Expiration Date V isits Requested Visits Authorized [id number] Pending Review 11/12/2023 11/11/2024 1 1 Specialty Diagnoses / Procedures Referred By Contac t Referred To Contact Diagnoses Pulmonary nodule Procedures CT chest wo IV contrast Dania Steven DO [address] [place] [address] Referral ID Status Reason Start Date Expiration Date V isits Requested Visits Authorized [id number] Pending Review 05/02/2025 10/29/2025 1 1 Specialty Diagnoses / Procedures Referred By Contac t Referred To Contact [facility] Diagnoses High-tone pelvic floor dysfunction Augustina Vargas MD [address] [place] [address] [facility] [address] [place] [address] Referral ID Status Reason Start Date Expiration Date V isits Requested Visits Authorized [id number] Authorized 05/28/2024 08/26/2024 1 1 Specialty Diagnoses / Procedures Referred By Contac t Referred To Contact [facility] Diagnoses High-tone pelvic floor dysfunction Procedures CONSULT TO PHYSICAL THERAPY PHYSICAL THERAPY EVALUATION HIGH COMPLEX 45 MINS Augustina Vargas MD [address] [phone] [facility] [place] [address] Referral ID Status Reason Start Date Expiration Date Visits Requested Visits Authorized [id number] Authorized PCP Requested Referral Auto-Generate d Referral 05/27/2024 05/27/2025 99 99 Specialty Diagnoses / Procedures Referred By Contac t Referred To Contact Diagnoses High-tone pelvic [place] [address] [place], [place] [phone] Referral ID Status Reason Start Date Expiration Date Visits Re quested Visits Authorized [id number] Closed 1 1 Specialty Diagnoses / Procedures Referred By Contac t Referred To Contact Diagnoses Nutcracker phenomenon of renal vein Procedures REFER TO PACC - PRE ANESTHESIA CONSULTATION CLINIC OFFICE/OUTPATIENT NEW HIGH MDM 60 [place] [address] [place], [place] [id number] Referral ID Status Reason Start Date Expiration Date Visits Requested Visits Authorized [id number] Authorized PCP Requested Referral 02/25/2024 12/29/2024 1 1 Specialty Diagnoses / Procedures Referred By Contac t Referred To Contact [facility] Diagnoses Nutcracker phenomenon of renal vein Procedures ECG COMPLETE ECG ROUTINE ECG W/LEAST 12 LDS W/I&[place] [address] [place] [address] [facility] [address] [place] [id number] Referral ID Status Reason Start Date Expiration Date Visits Requested Visits Authorized [id number] Pending Review Auto-Generat ed Referral 02/25/2024 12/29/2024 1 1 Specialty Diagnoses / Procedures Referred By Contac t Referred To Contact Urology Diagnoses Nutcracker phenomenon of renal vein Procedures CONSULT TO UROLOGY OFFICE/OUTPATIENT [facility] 60 MINUTES Rina Fox MD [address] [place] [address] Referral ID Status Reason Start Date Expiration Date Visits Requested Visits Authorized [id number] Authorized PCP Requested Referral 12/18/2023 12/17/2024 1 1 Reason *FU 10/22 [place] office - abnormal CT of chest, send notes recently from Dr. Godwin. Diagnosis [address] (R 93.89) Referral Organization [facility] [employer] Referring Provider First Name Ammon Referring Provider Last Name Dylon Referring Provider Specialty [facility] [employer] Referred Organization [facility] Referred Provider Dania Steven Referred Address ,[place], [place],[address] Referred Provider Specialty Pulmonary Di seases Referral Priority Routine General Notes Thea Wilson 04:43:51 PM >received today Thea Wilson 10/15/2023 04:45:29 PM >attachments made, notes locked, referral faxed to [place] office Clinical Notes p: [phone] f: [phone] Reason Pt has all records, images with [facility] Pt has called [facility] and they recommend she start w Dr. Camp for assessment Diagnosis 1 Pelvic congestion sy ndrome (N94.89) Referral Organization [facility] [employer] donny Referring Provider First Name Ammon Referring Provider Last Name Dylon Referring Provider Specialty [facility] [employer] Referred Organization [facility] Referred Provider Shanell Camp Referred Address [address] [place],[address] Referred Provider Specialty Diagnostic R adiology Referral Priority Routine Reason 12/18/22 @ 2:20 it tiera palms and soles, drug reaction on abd. please send recent derm note with referral. Diagnosis 1 Allergic reaction, s ubsequent encounter (T78.40XD) Referral Organization [facility] [employer] donny Referring Provider First Name Ammon Referring Provider Last Name Dylon Referring Provider Specialty [facility] [employer] Referred Organization [facility] Referred Provider Will Vega Referred Address ,[place], [place],[address] Referred Provider Specialty Allergy/Immu nology Referral Priority Routine Referral Appointment Date 2022-12-18 General Notes Thea Wilson 11:22:43 AM >received today, waiting for derm note to be entered into patients chart Thea Wilson 11/04/2022 07:36:18 AM >notes locked and referral faxed P2P Thea Wilson 11/11/2022 10:45:36 AM >faxed first attempt letter Thea Wilson 11/12/2022 03:44:55 PM >received fax with appt date and time Chief Complaint and Reason for Visit Chief Complaint Admit Date wellness June 03, 2025 10 :48am Additional Source Comments INFORMATION SOURCE (unrecogn ized section and content) DATE CREATED AUTHOR 08/08/2018 [facility] DATE CREATED AUTHOR AUTHOR'S ORGANIZ ATION 02/24/2022 [facility] DATE CREATED AUTHOR AUTHOR'S ORGANIZ ATION 02/26/2023 [facility] DATE CREATED AUTHOR AUTHOR'S ORGANIZ ATION 02/18/2024 [facility] DATE CREATED AUTHOR AUTHOR'S ORGANIZ ATION 05/04/2024 [facility] DATE CREATED AUTHOR AUTHOR'S ORGANIZ ATION 07/27/2024 [facility] DATE CREATED AUTHOR AUTHOR'S ORGANIZ ATION 02/03/2025 [facility] DATE CREATED AUTHOR AUTHOR'S ORGANIZ ATION 04/03/2025 [facility] DATE CREATED AUTHOR AUTHOR'S ORGANIZ ATION 05/02/2025 [facility] DATE CREATED AUTHOR AUTHOR'S ORGANIZ ATION 05/10/2025 [facility] DATE CREATED AUTHOR AUTHOR'S ORGANIZ ATION 06/04/2025 [facility] Specialists EPIC REASON FOR VISIT (unrecogniz ed section and content) Reason Comments Appointment Reason Comments Patient Question Reason Comments Consult Reason Comments Consult Specialty Diagnoses / Procedures Referred By Nori t Referred To Contact Urology Diagnoses Nutcracker phenomenon of renal vein Procedures CONSULT TO UROLOGY OFFICE/OUTPATIENT [facility] MDM 60 MINUTES Rina Fox MD [address] [place] [address] Referral ID Status Reason Start Date Expiration Date V isits Requested Visits Authorized [id number] Closed PCP Requested Referral 12/18/2023 12/17/2024 1 1 Reason Comments Patient Update Reason Comments Surgery Cancelled Reason Comments Pre-Op Exam Reason Comments Cystoscopy-1 Stent Extraction Reason Comments Follow Up Reason Comments Pelvic Pain Reason Comments botox auth Reason Comments Pelvic Pain Specialty Diagnoses / Procedures Referred By Contac t Referred To Contact [facility] Diagnoses High-tone pelvic floor dysfunction Augustina Vargas MD [address] [phone] [place] [phone] Referral ID Status Reason Start Date Expiration Date Visits Re quested Visits Authorized [id number] Closed 05/28/2024 08/26/2024 1 1 Reason Comments Medication Problem Reason Comments Med Change Request Reason Comments Other Patient Update Reason Comments Pulmonary Nodules 4 month follow up Reason Comments Orders PFPT Reason Comments SNHL Reason Comments S/P submandibular gland dilation Reason Comments Post-op Follow-up Reason Onset Date Comments Med Refill 07/02/2024 Reason Comments Follow-up Reason Comments Well Women Visit Reason Comments Trigger Point Injection Specialty Diagnoses / Procedures Referred By Contac t Referred To Contact [facility] Augustina Vargas MD [address] [place] [address] Phone: tel: fax: [address] [address] Referral ID Status Reason Start Date Expiration Date Visits Re quested Visits Authorized [id number] Closed 12/08/2024 03/08/2025 1 1 Reason Comments Radio Gen RMP Reason Comments Follow Up Discuss Dexa results /treatment Reason Comments Insurance Authorization Reason Comments Trigger Point Injection Pelvic Pain Specialty Diagnoses / Procedures Referred By Contac t Referred To Contact [facility] / GYNECOLOGY Diagnoses Other specified disorders of muscle TPI Procedures TRIGGER POINT INJECTION MULTI 1-2 MUSCLE GR TRIGGER POINT INJECTION Self Augustina Vargas MD [address] [place] [address] Phone: tel: fax: Referral ID Status Reason Start Date Expiration Date Visits Re quested Visits Authorized [id number] Closed 01/27/2025 10/12/2025 1 1 Reason Comments Established Patient Follow Up Specialty Diagnoses / Procedures Referred By Contac t Referred To Contact Orthopedics Diagnoses Primary osteoarthritis of right knee Derangement of unsp meniscus due to old tear/inj, right knee Procedures CONSULT PANEL TO ORTHOPAEDICS OFFICE/OUTPATIENT [facility] 60 MINUTES Gi Siddiqi MD [address] [place] [address] Phone: tel: fax: Referral ID Status Reason Start Date Expiration Date V isits Requested Visits Authorized [id number] Closed PCP Requested Referral 02/02/2025 02/02/2026 1 1 Source Comments (unrecognize d section and content) In the event this informatio n is protected by the Federal Confidentiality of Alcohol and Drug Abuse Patient Records regulations: The Federal rules restrict any use of the information to criminally investigate or prosecute any alcohol or drug abuse patient.[facility] the event this information is protected by the Federal Confidentiality of Alcohol and Drug Abuse Patient Records regulations: The Federal rules restrict any use of the information to criminally investigate or prosecute any alcohol or drug abuse patient.[facility] the event this information is protected by the Federal Confidentiality of Alcohol and Drug Abuse Patient Records regulations: The Federal rules restrict any use of the information to criminally investigate or prosecute any alcohol or drug abuse patient.[facility] the event this information is protected by the Federal Confidentiality of Alcohol and Drug Abuse Patient Records regulations: The Federal rules restrict any use of the information to criminally investigate or prosecute any alcohol or drug abuse patient.[facility] HospitalIn the event this information is protected by the Federal Confidentiality of Alcohol and Drug Abuse Patient Records regulations: The Federal rules restrict any use of the information to criminally investigate or prosecute any alcohol or drug abuse patient.[facility] HospitalIn the event this information is protected by the Federal Confidentiality of Alcohol and Drug Abuse Patient Records regulations: The Federal rules restrict any use of the information to criminally investigate or prosecute any alcohol or drug abuse patient.[facility] HospitalIn the event this information is protected by the Federal Confidentiality of Alcohol and Drug Abuse Patient Records regulations: The Federal rules restrict any use of the information to criminally investigate or prosecute any alcohol or drug abuse patient.[facility] HospitalIn the event this information is protected by the Federal Confidentiality of Alcohol and Drug Abuse Patient Records regulations: The Federal rules restrict any use of the information to criminally investigate or prosecute any alcohol or drug abuse patient.[facility] HospitalIn the event this information is protected by the Federal Confidentiality of Alcohol and Drug Abuse Patient Records regulations: The Federal rules restrict any use of the information to criminally investigate or prosecute any alcohol or drug abuse patient.[facility] HospitalIn the event this information is protected by the Federal Confidentiality of Alcohol and Drug Abuse Patient Records regulations: The Federal rules restrict any use of the information to criminally investigate or prosecute any alcohol or drug abuse patient.[facility] HospitalIn the event this information is protected by the Federal Confidentiality of Alcohol and Drug Abuse Patient Records regulations: The Federal rules restrict any use of the information to criminally investigate or prosecute any alcohol or drug abuse patient.[facility] HospitalIn the event this information is protected by the Federal Confidentiality of Alcohol and Drug Abuse Patient Records regulations: The Federal rules restrict any use of the information to criminally investigate or prosecute any alcohol or drug abuse patient.[facility] HospitalIn the event this information is protected by the Federal Confidentiality of Alcohol and Drug Abuse Patient Records regulations: The Federal rules restrict any use of the information to criminally investigate or prosecute any alcohol or drug abuse patient.[facility] HospitalIn the event this information is protected by the Federal Confidentiality of Alcohol and Drug Abuse Patient Records regulations: The Federal rules restrict any use of the information to criminally investigate or prosecute any alcohol or drug abuse patient.[facility] HospitalIn the event this information is protected by the Federal Confidentiality of Alcohol and Drug Abuse Patient Records regulations: The Federal rules restrict any use of the information to criminally investigate or prosecute any alcohol or drug abuse patient.[facility] HospitalIn the event this information is protected by the Federal Confidentiality of Alcohol and Drug Abuse Patient Records regulations: The Federal rules restrict any use of the information to criminally investigate or prosecute any alcohol or drug abuse patient.[facility] HospitalIn the event this information is protected by the Federal Confidentiality of Alcohol and Drug Abuse Patient Records regulations: The Federal rules restrict any use of the information to criminally investigate or prosecute any alcohol or drug abuse patient.[facility] HospitalIn the event this information is protected by the Federal Confidentiality of Alcohol and Drug Abuse Patient Records regulations: The Federal rules restrict any use of the information to criminally investigate or prosecute any alcohol or drug abuse patient.[facility] HospitalIn the event this information is protected by the Federal Confidentiality of Alcohol and Drug Abuse Patient Records regulations: The Federal rules restrict any use of the information to criminally investigate or prosecute any alcohol or drug abuse patient.[facility] HospitalIn the event this information is protected by the Federal Confidentiality of Alcohol and Drug Abuse Patient Records regulations: The Federal rules restrict any use of the information to criminally investigate or prosecute any alcohol or drug abuse patient.[facility] HospitalIn the event this information is protected by the Federal Confidentiality of Alcohol and Drug Abuse Patient Records regulations: The Federal rules restrict any use of the information to criminally investigate or prosecute any alcohol or drug abuse patient.[facility] HospitalIn the event this information is protected by the Federal Confidentiality of Alcohol and Drug Abuse Patient Records regulations: The Federal rules restrict any use of the information to criminally investigate or prosecute any alcohol or drug abuse patient.[facility] HospitalIn the event this information is protected by the Federal Confidentiality of Alcohol and Drug Abuse Patient Records regulations: The Federal rules restrict any use of the information to criminally investigate or prosecute any alcohol or drug abuse patient.[facility] HospitalIn the event this information is protected by the Federal Confidentiality of Alcohol and Drug Abuse Patient Records regulations: The Federal rules restrict any use of the information to criminally investigate or prosecute any alcohol or drug abuse patient.[facility] HospitalIn the event this information is protected by the Federal Confidentiality of Alcohol and Drug Abuse Patient Records regulations: The Federal rules restrict any use of the information to criminally investigate or prosecute any alcohol or drug abuse patient.[facility] HospitalIn the event this information is protected by the Federal Confidentiality of Alcohol and Drug Abuse Patient Records regulations: The Federal rules restrict any use of the information to criminally investigate or prosecute any alcohol or drug abuse patient.[facility] HospitalIn the event this information is protected by the Federal Confidentiality of Alcohol and Drug Abuse Patient Records regulations: The Federal rules restrict any use of the information to criminally investigate or prosecute any alcohol or drug abuse patient.[facility] HospitalIn the event this information is protected by the Federal Confidentiality of Alcohol and Drug Abuse Patient Records regulations: The Federal rules restrict any use of the information to criminally investigate or prosecute any alcohol or drug abuse patient.[facility] HospitalIn the event this information is protected by the Federal Confidentiality of Alcohol and Drug Abuse Patient Records regulations: The Federal rules restrict any use of the information to criminally investigate or prosecute any alcohol or drug abuse patient.[facility] HospitalIn the event this information is protected by the Federal Confidentiality of Alcohol and Drug Abuse Patient Records regulations: The Federal rules restrict any use of the information to criminally investigate or prosecute any alcohol or drug abuse patient.[facility] HospitalIn the event this information is protected by the Federal Confidentiality of Alcohol and Drug Abuse Patient Records regulations: The Federal rules restrict any use of the information to criminally investigate or prosecute any alcohol or drug abuse patient.[facility] HospitalIn the event this information is protected by the Federal Confidentiality of Alcohol and Drug Abuse Patient Records regulations: The Federal rules restrict any use of the information to criminally investigate or prosecute any alcohol or drug abuse patient.[facility] HospitalIn the event this information is protected by the Federal Confidentiality of Alcohol and Drug Abuse Patient Records regulations: The Federal rules restrict any use of the information to criminally investigate or prosecute any alcohol or drug abuse patient.[facility] HospitalIn the event this information is protected by the Federal Confidentiality of Alcohol and Drug Abuse Patient Records regulations: The Federal rules restrict any use of the information to criminally investigate or prosecute any alcohol or drug abuse patient.[facility] HospitalIn the event this information is protected by the Federal Confidentiality of Alcohol and Drug Abuse Patient Records regulations: The Federal rules restrict any use of the information to criminally investigate or prosecute any alcohol or drug abuse patient.[facility] HospitalIn the event this information is protected by the Federal Confidentiality of Alcohol and Drug Abuse Patient Records regulations: The Federal rules restrict any use of the information to criminally investigate or prosecute any alcohol or drug abuse patient.[facility] HospitalIn the event this information is protected by the Federal Confidentiality of Alcohol and Drug Abuse Patient Records regulations: The Federal rules restrict any use of the information to criminally investigate or prosecute any alcohol or drug abuse patient.[facility] HospitalIn the event this information is protected by the Federal Confidentiality of Alcohol and Drug Abuse Patient Records regulations: The Federal rules restrict any use of the information to criminally investigate or prosecute any alcohol or drug abuse patient.[facility] HospitalIn the event this information is protected by the Federal Confidentiality of Alcohol and Drug Abuse Patient Records regulations: The Federal rules restrict any use of the information to criminally investigate or prosecute any alcohol or drug abuse patient.[facility] HospitalIn the event this information is protected by the Federal Confidentiality of Alcohol and Drug Abuse Patient Records regulations: The Federal rules restrict any use of the information to criminally investigate or prosecute any alcohol or drug abuse patient.[facility] HospitalIn the event this information is protected by the Federal Confidentiality of Alcohol and Drug Abuse Patient Records regulations: The Federal rules restrict any use of the information to criminally investigate or prosecute any alcohol or drug abuse patient.[facility] HospitalIn the event this information is protected by the [facility] Confidentiality of Alcohol and Drug Abuse Patient Records regulations: The Federal rules restrict any use of the information to criminally investigate or prosecute any alcohol or drug abuse patient.[facility] HospitalIn the event this information is protected by the Federal Confidentiality of Alcohol and Drug Abuse Patient Records regulations: The Federal rules restrict any use of the information to criminally investigate or prosecute any alcohol or drug abuse patient.[facility] Care Teams (unrecognized sec tion and content) Director Of Cardiology Service Line Relationship Specialty Start Date End Date Ammon Lucas MD [address] [place] [address] Referring Family Medicine 09/08/23 Director Of Cardiology Service Line Relationship Specialty Start Date End Date Ammon Lucas MD [address] [place] [address] Referring Family Medicine 09/08/23 Director Of Cardiology Service Line Relationship Specialty Start Date End Date Ammon Lucas MD [address] [place] [address] PCP - General Family Medicine 12/18/23 Ammon Lucas MD [address] [place] [address] Referring Family Medicine 09/08/23 Director Of Cardiology Service Line Relationship Specialty Start Date End Date Ammon Lucas MD [address] [place] [facility] [place] [id number] PCP - General Family Medicine 12/18/23 Ammon Lucas MD [address] [place] [facility] [place] [place] [address] Referring Family Medicine 09/08/23 Director Of Cardiology Service Line Relationship Specialty Start Date End Date Ammon Lucas MD [address] [place] [facility] [place] [place] [address] PCP - General Family Medicine 12/18/23 Ammon Lucas MD [address] [place] [facility] [place] [place] [address] Referring Family Medicine 09/08/23 Director Of Cardiology Service Line Relationship Specialty Start Date End Date Ammon Lucas MD [address] [place] [place] [address] PCP - General Family Medicine 12/18/23 Ammon Lucas MD [address] [place] [place] [address] Referring Family Medicine 09/08/23 Director Of Cardiology Service Line Relationship Specialty Start Date End Date Ammon Lucas MD [address] [place] [facility] [place] [address] PCP - General Family Medicine 12/18/23 Ammon Lucas MD [address] [place] [place] [address] Referring Family Medicine 09/08/23 Director Of Cardiology Service Line Relationship Specialty Start Date End Date Ammon Lucas MD [address] [place] [place] [place] [address] PCP - General Family Medicine 12/18/23 Ammon Lucas MD [address] [place] [place] [place] [address] Referring Family Medicine 09/08/23 Director Of Cardiology Service Line Relationship Specialty Start Date End Date Ammon Lucas MD [address] [place] [facility] [place] [address] PCP - General Family Medicine 12/18/23 Ammon Lucas MD [address] [place] [facility] [place] [address] Referring Family Medicine 09/08/23 Director Of Cardiology Service Line Relationship Specialty Start Date End Date Ammon Lucas MD [address] [place] [facility] [place] [address] PCP - General Family Medicine 12/18/23 Ammon Lucas MD [address] [place] [facility] [place] [address] Referring Family Medicine 09/08/23 Director Of Cardiology Service Line Relationship Specialty Start Date End Date Ammon Lucas MD [address] [place] [place] [place] [address] PCP - General Family Medicine 12/18/23 Ammon Lucas MD [address] [place] [place] [place] [address] Referring Family Medicine 09/08/23 Director Of Cardiology Service Line Relationship Specialty Start Date End Date Ammon Lucas MD [address] [place] [place] [place] [address] PCP - General Family Medicine 12/18/23 Ammon Lucas MD [address] [place] [facility] [place] [address] Referring Family Medicine 09/08/23 Director Of Cardiology Service Line Relationship Specialty Start Date End Date Ammon Lucas MD [address] [place] [place] [address] PCP - General Family Medicine 12/18/23 Ammon Lucas MD [address] [place] [facility] [place] [address] Referring Family Medicine 09/08/23 Director Of Cardiology Service Line Relationship Specialty Start Date End Date Ammon Lucas MD [address] [place] [place] [address] PCP - General Family Medicine 12/18/23 Ammon Lucas MD [address] [place] [place] [place] [address] Referring Family Medicine 09/08/23 Director Of Cardiology Service Line Relationship Specialty Start Date End Date Ammon Lucas MD [address] [place] [place] [place] [address] PCP - General Family Medicine 12/18/23 Ammon Lucas MD [address] [place] [place] [place] [address] Referring Family Medicine 09/08/23 Director Of Cardiology Service Line Relationship Specialty Start Date End Date Ammon Lucas MD [address] [place] [place] [place] [address] PCP - General Family Medicine 12/18/23 Ammon Lucas MD [address] [place] [place] [place] [address] Referring Family Medicine 09/08/23 Director Of Cardiology Service Line Relationship Specialty Start Date End Date Ammon Lucas MD [address] [place] [place] [address] PCP - General Family Medicine 12/18/23 Ammon Lucas MD [address] [place] [place] [place] [address] Referring Family Medicine 09/08/23 Director Of Cardiology Service Line Relationship Specialty Start Date End Date Ammon Lucas MD [address] [place] [place] [address] PCP - General Family Medicine 12/18/23 Ammon Lucas MD [address] [place] [place] [place] [address] Referring Family Medicine 09/08/23 Director Of Cardiology Service Line Relationship Specialty Start Date End Date Ammon Lucas MD [address] [place] [place] [place] [address] PCP - General Family Medicine 12/18/23 Ammon uLcas MD [address] [place] [place] [place] [address] Referring Family Medicine 09/08/23 Director Of Cardiology Service Line Relationship Specialty Start Date End Date Ammon Lucas MD [address] [place] [place] [place] [address] PCP - General Family Medicine 12/18/23 Ammon Lucas MD [address] [place] [place] [place] [address] Referring Family Medicine 09/08/23 Director Of Cardiology Service Line Relationship Specialty Start Date End Date Ammon Lucas MD [address] [place] [place] [place] [address] PCP - General Family Medicine 12/18/23 Ammon Lucas MD [address] [place] [place] [place] [address] Referring Family Medicine 09/08/23 Director Of Cardiology Service Line Relationship Specialty Start Date End Date Ammon Lucas MD [address] [place] [place] [place] [address] PCP - General Family Medicine 12/18/23 Ammon Lucas MD [address] [place] [place] [place] [address] Referring Family Medicine 09/08/23 Director Of Cardiology Service Line Relationship Specialty Start Date End Date Ammon Lucas MD [address] [place] [place] [place] [address] PCP - General Family Medicine 12/18/23 Ammon Lucas MD [address] [place] [address] Referring Family Medicine 09/08/23 Director Of Cardiology Service Line Relationship Specialty Start Date End Date Ammon Lucas MD [address] [place] [address] PCP - General Family Medicine 03/18/23 Director Of Cardiology Service Line Relationship Specialty Start Date End Date Ammon Lucas MD [address] [facility] [place] [address] PCP - General Family Medicine 03/18/23 Director Of Cardiology Service Line Relationship Specialty Start Date End Date Ammon Lucas MD [address] [place] [address] PCP - General Family Medicine 12/18/23 Ammon Lucas MD [address] [place] [address] Referring Family Medicine 09/08/23 Director Of Cardiology Service Line Relationship Specialty Start Date End Date Ammon Lucas MD [address] [place] [address] PCP - General 06/18/18 Director Of Cardiology Service Line Relationship Specialty Start Date End Date Ammon Lucas MD [address] [place] [address] PCP - General 06/18/18 Director Of Cardiology Service Line Relationship Specialty Start Date End Date Ammon Lucas MD [address] [place] [address] PCP - General 06/18/18 Director Of Cardiology Service Line Relationship Specialty Start Date End Date Ammon Lucas MD [address] [place] [address] PCP - General 06/18/18 Director Of Cardiology Service Line Relationship Specialty Start Date End Date Ammon Lucas MD [address] [place] [address] PCP - General 06/18/18 Director Of Cardiology Service Line Relationship Specialty Start Date End Date Ammon Lucas MD [address] [place] [address] PCP - General 06/18/18 Director Of Cardiology Service Line Relationship Specialty Start Date End Date Ammon Lucas MD [address] [place] [address] PCP - General Family Medicine 03/18/23 Director Of Cardiology Service Line Relationship Specialty Start Date End Date Ammon Lucas MD [address] [place] [address] PCP - General Family Medicine 03/18/23 Director Of Cardiology Service Line Relationship Specialty Start Date End Date Ammon Lucas MD [address] [place] [address] PCP - General Family Medicine 03/18/23 Director Of Cardiology Service Line Relationship Specialty Start Date End Date Ammon Lucas MD [address] [place] [place] [place] [address] PCP - General Family Medicine 12/18/23 Ammon Lucas MD [address] [place] [place] [place] [address] Referring Family Medicine 09/08/23 Director Of Cardiology Service Line Relationship Specialty Start Date End Date Ammon Lucas MD [address] [facility] [place] [address] PCP - General Family Medicine 12/18/23 Ammon Lucas MD [address] [place] [facility] [place] [address] Referring Family Medicine 09/08/23 Director Of Cardiology Service Line Relationship Specialty Start Date End Date Ammon Lucas MD [address] [place] [place] [place] [address] PCP - General Family Medicine 12/18/23 Ammon Lucas MD [address] [place] [place] [place] [address] Referring Family Medicine 09/08/23 Director Of Cardiology Service Line Relationship Specialty Start Date End Date Ammon Lucas MD [address] [place] [place] [place] [address] PCP - General Family Medicine 12/18/23 Ammon Lucas MD [address] [place] [place] [place] [address] Referring Family Medicine 09/08/23 Director Of Cardiology Service Line Relationship Specialty Start Date End Date Ammon Lucas MD [address] [place] [place] [place] [address] PCP - General Family Medicine 12/18/23 Ammon Lucas MD [address] [place] [place] [place] [address] Referring Family Medicine 09/08/23 Director Of Cardiology Service Line Relationship Specialty Start Date End Date Ammon Lucas MD PCP - General Family Medicine 03/18/23 Director Of Cardiology Service Line Relationship Specialty Start Date End Date Ammon Lucas MD PCP - General Family Medicine 03/18/23 Team Status: Active Member Role Status Dates Ammon Lucas MD Primary Care Provider Active Team Status: Active Member Role Status Dates Ammon Lucas MD Primary Care Provider Active Start: May 04, 2025 Outside Provider Attending Provider Active Start : May 04, 2025 Team Status: Inactive Member Role Status Dates Ammon Lucas MD Primary Care Provider Active Start: June 03, 2025 End: June 03, 2025 Ammon Lucas MD Attending Provider Active St art: June 03, 2025 End: June 03, 2025 Goals (unrecognized section and content) Goals may be documented in a n alternate section FOR RECORDS PERTAINING TO PATIENTS WHO ARE [...] BE BASED ON THE PRIMARY CLINICAL RECORDS. [employer] provides no warranty or guarantee of the accuracy or completeness of information in this document.
[2025-06-06 11:06] VITALS: BP 166/82; PULSE 81; TEMP 37.2; O2SAT 97; BMI 21.9
[2025-06-06] MEDS: 0.9 % SODIUM CHLORIDE 1,000 ML 1000 ML IV ×2 (11:32→18:19)
[2025-06-06] MEDS: MORPHINE SULFATE 4 MG/ML VIAL IV ×2 (11:32→13:59)
[2025-06-06 11:35] LABS: Hematocrit 43.3 % (36.0-48.0); Hemoglobin 14.4 g/dL (12.0-16.0); Mean Corpuscular HGB Conc 33.3 g/dL (29.9-35.2); Mean Corpuscular Hemoglobin 30.1 pg (26.7-34.0); Mean Corpuscular Volume 90.4 fL (81.0-99.0); Platelet Count 385 10^3/uL (150-450); Red Blood Count 4.79 10^6/uL (4.20-5.40); White Blood Count 28.2 10^3/uL (4.0-11.0)
--- NOTE | 2025-06-06 11:41 | PC.NURSE ---
pulse ox placed on finger after Morphine administration. 97%
--- NOTE | 2025-06-06 11:46 | ED_ITS ---
HPI HPI - General Adult General Chief complaint: Abdominal Pain Stated complaint: L SIDED LOWER ABDOMINAL PAIN, VAGINAL PAIN Time Seen by Provider: 06/06/25 10:56 Source: patient Mode of arrival: walk-in Limitations: no limitations History of Present Illness HPI narrative: Patient is a 69-year-old female presenting to the emergency department for complaints of left lower quadrant abdominal pain. 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 Her surgery was back in February 2024. She states she has been doing well since the surgery, and has had no issues other than a few kidney stones. She is not on any immunosuppressive therapy. Other than 4 days of left lower quadrant pain, she otherwise feels healthy. She has some nausea without vomiting, diarrhea, or constipation. She has no chest pain or shortness of breath. No fevers or chills. She is still producing urine. Related Data Home Medications ?Medication ?Instructions ?Recorded ?Confirmed atorvastatin 10 mg tablet 10 mg PO DAILY 06/06/2505/14 cyclobenzaprine 5 mg tablet 5 mg PO HS 06/06/25 montelukast 10 mg tablet 10 mg PO DAILY 06/06/2505/14 Allergies Allergy/AdvReac Type Severity Reaction Status Date / Time bee venom protein (honey bee) Allergy Severe Rash Verified 06/06/25 11:06 clindamycin Allergy Intermediate Rash Verified 06/06/25 11:06 doxycycline Allergy Intermediate Rash Verified 06/06/25 11:06 Opioid HPI Opioid Management Most Recent Opioid Data: Last Pain Scale 5 Today, 19:24 Last Pain Assessment Today, 19:00 Last ORT Total Score 0 Today, 18:59 Last ORT Risk Category Low Risk Today, 18:59 Review of Systems ROS Status of ROS 10 or more systems reviewed and unremark able except as noted in history and below [facility] PFS Medical History (Updated 06/06/25 @ 19:12 by Dona Rodriguez RN) Hypertonic bladder ?N31.8 - Other neuromuscular dysfunction of bladder (ICD-10) 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 - Compression of vein (ICD-10) 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, unspecified site (ICD-10) Hx of renal calculi ?Z87.442 - Personal history of urinary calculi (ICD-10) Surgical History (Updated 06/06/25 @ 18:38 by Boogie Arvizu) Hx of cholecystectomy ?Z90.49 - Acquired absence of other specified parts of digestive tract (ICD- 10) Hx of appendectomy ?Z90.49 - Acquired absence of other specified parts of digestive tract (ICD- 10) Status post kidney autotransplantation ?Z94.0 - Kidney transplant status (ICD-10) Family History (Updated 06/06/25 @ 19:14 by Dona Rodriguez RN) Uncle Family history of cancer Family history of diabetes mellitus Mother Family history of hypertension Father Family history of hypertension Aunt Family history of hypertension Brother Family history of myocardial infarction Family history of stroke Social History (Updated 06/06/25 @ 19:14 by Dona Rodriguez RN) Within the past year, how often did you have a drink containing alcohol: monthly or less Smoking status: Former smoker Non-prescribed substance use: denies use Highest level of school completed/degree received: high school graduate Little interest or pleasure in doing things: not at all Feeling down, depressed, or hopeless: not at all Exam Narrative Exam Narrative: CONSTITUTIONAL: Well-appearing, answering questions and following commands appropriately SKIN: Was warm and dry. EYES: No scleral icterus. No periorbital edema EARS, NOSE, THROAT: Moist mucosa RESPIRATORY: Clear to auscultation bilaterally, no wheezes, crackles, or stridor, no use of accessory muscles CARDIOVASCULAR: Normal rate and regular rhythm. There is no S3, S4, murmur, rub. GASTROINTESTINAL: There is tenderness to palpation in the left lower quadrant without rebound tenderness or guarding. No peritoneal signs. Abdomen is soft and nondistended. MUSCULOSKELETAL: There was no lower extremity edema, erythema, or tenderness. NEUROLOGIC: Patient is awake and alert. Facies were symmetrical. Constitutional Vital Signs, click to edit/add: Last Vital Signs Temp 98.1 F 06/06/25 18:59 Pulse 63 06/06/25 18:59 Resp 16 06/06/25 18:59 BP 137/79 06/06/25 18:59 Pulse Ox 95 06/06/25 18:59 O2 Del Method Room Air 06/06/25 18:59 Course Vital Signs Vital signs: Vital Signs Temperature 98.9 F 06/06/25 11:06 Pulse Rate 81 06/06/25 11:06 Respiratory Rate 20 08/25/25 11:06 Blood Pressure 166/82 H 06/06/25 11:06 Pulse Oximetry 97 06/06/25 11:06 Oxygen Delivery Method Room Air 06/06/25 11:06 Temperature 98.1 F 06/06/25 18:59 Pulse Rate 63 06/06/25 18:59 Respiratory Rate 16 06/06/25 18:59 Blood Pressure 137/79 06/06/25 18:59 Pulse Oximetry 95 06/06/25 18:59 Oxygen Delivery Method Room Air 06/06/25 18:59 Medical Decision Making MDM Narrative Medical decision making narrative: Patient is a 69-year-old female, history significant for 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 Vital signs on arrival are significant for mild hypertension, otherwise were within normal limits. She is afebrile and hemodynamically stable. Examination as noted above Differential diagnosis includes pyelonephritis, nephrolithiasis, diverticulitis, or posttransplant complication such as vascular complications/renal artery stenosis/thrombosis chest ureteral strictures. IV was established and laboratory studies were obtained. Renal duplex ultrasound was ordered in addition to CT with and without contrast. She was given IV morphine, IV Zofran, and 1 L bolus normal saline for symptomatic treatment. Laboratory studies demonstrated a significant leukocytosis with a white count of 28.2. She has no evidence of UTI on urinalysis. She has normal renal function and normal electrolytes. No lactic acidosis CT abdomen/pelvis independently reviewed/interpreted by myself and be reviewed by radiology demonstrated no acute intra-abdominal process. Renal duplex was pending at the time of admission, however per the litigation secretary, was negative for hydronephrosis or any acute abnormalities. On reevaluation, the patient is still having significant pain and is requesting more analgesics. She was given an additional dose of 4 mg IV morphine. She still has tenderness to palpation of the left lower quadrant. It is unclear as to the exact etiology to explain the patient's symptoms. She has no signs of i nfection. She has no URI symptoms, symptoms of pneumonia, DVT, or any other identifiable reason why she would have a significant leukocytosis. I did discuss the patient with her urologist, Dr. Chowdary, at [facility] who performed the auto kidney transplant. He was unsure of the exact etiology behind the patient's presentation. He recommended admission to our hospital for IV fluid rehydration, repeat laboratory studies, and further monitoring. He recommended that if the patient's condition should worsen, to have low threshold to transfer to [facility] for further care. I discussed the patient with hospitalist, Dr. Martinez, who accepted the patient to his service. FINAL IMPRESSION: #Acute leukocytosis #Acute left lower quadrant abdominal pain #History of auto renal transplant DISPOSITION: Admitted to the observation unit CONDITION: Good Medical Records Medical records reviewed: Yes I reviewed the patient's medical records Lab Data Lab results reviewed: Yes I reviewed the patient's lab results Labs: Lab Results 06/06/25 06/06/25 Range/Units 11:28 12:40 WBC 28.2 H (4.0-11.0) 10^3/uL RBC 4.79 (4.20-5.40) 10^6/uL Hgb 14.4 (12.0-16.0) g/dL Hct 43.3 (36.0-48.0) % MCV 90.4 (81.0-99.0) fL MCH 30.1 (26.7-34.0) pg MCHC 33.3 (29.9-35.2) g/dL RDW 15.6 H (11.0-15.0) % Plt Count 385 (150-450) 10^3/uL MPV 11.3 (9.5-13.5) fL Seg Neuts % (Manual) 63.0 (43.0-75.0) Band Neutrophils % 1.0 (0-5) % Lymphocytes % (Manual) 16.0 L (20.5-60.0) % Monocytes % (Manual) 4.0 (1.7-12.0) % Eosinophils % (Manual) 3.0 (0.9-7.0) % Basophils % (Manual) 5.0 H (0.2-2.0) % Metamyelocytes % 5.0 Myelocytes % 3.0 Neutrophils # (Manual) 17.76 H (1.4-6.5) 10^3/uL Band Neutrophils # 0.3 (0.0-0.3) 10^3/uL Lymphocytes # (Manual) 4.51 H (1.20-3.80) 10^3/uL Monocytes # (Manual) 1.12 H (0.30-0.80) 10^3/uL Eosinophils # (Manual) 0.84 H (0.00-0.70) 10^3/uL Basophils # (Manual) 1.41 H (0.00-0.10) 10^3/uL Metamyelocytes # 1.41 Myelocytes # 0.84 Sodium 142 (136-145) mmol/L Potassium 3.8 (3.5-5.1) mmol/L Chloride 102 (98-107) mmol/L Carbon Dioxide 33.2 H (21.0-32.0) mmol/L Anion Gap 10.6 BUN 22.0 H (7.0-18.0) mg/dL Creatinine 0.98 (0.55-1.02) mg/dL Est GFR ( Amer) >60 (>=60 mL/min/1.73m^2) Est GFR (Non-Af Amer) 57 L (>=60 mL/min/1.73m^2) BUN/Creatinine Ratio 22.4 Glucose 109 H (74-106) mg/dL Lactate 0.7 (0.4-2.0) mmol/L Calcium 9.3 (8.5-10.1) mg/dL Total Bilirubin 0.5 (0.2-1.0) mg/dL AST 27 (15-37) U/L ALT 25 (14-59) U/L Alkaline Phosphatase 82 (46-116) U/L Total Protein 7.7 (6.4-8.2) g/dL Albumin 4.0 (3.4-5.0) g/dL Globulin 3.7 g/dL Albumin/Globulin Ratio 1.1 Urine Color Lt. yellow (YELLOW) Urine Clarity Clear (CLEAR) Urine pH 6.0 (5.0-9.0) Ur Specific [place] <=1.005 A (1.005-1.025) Urine Protein Negative (NEG/TRACE) mg/dL Urine Glucose (UA) Negative (NEGATIVE) mg/dL Urine Ketones Negative (NEGATIVE) mg/dL Urine Occult Blood Small A (NEGATIVE) Urine Nitrite Negative (NEGATIVE) Urine Bilirubin Negative (NEGATIVE) Urine Urobilinogen 0.2 (0.2-1.0) EU/dL Ur Leukocyte Esterase Negative (NEGATIVE) Urine RBC 2-5 A (0-2) #/HPF Urine WBC 0-2 A (NONE SEEN) #/HPF Ur Squamous Epith Cells Few A (NONE/RARE) #/LPF Urine Crystals None seen (None Seen) #/HPF Urine Bacteria None seen (NONE SEEN) #/HPF Urine Casts None seen (NONE SEEN) #/LPF Urine Mucus None seen (NONE SEEN) Discharge Plan Discharge Chief Complaint: Abdominal Pain Clinical Impression: Leukocytosis, Abdominal pain Patient Disposition: Admitted as Observation Time of Disposition Decision: 18:14 Condition: Good Discharge Date/Time: 06/06/25 18:45
[2025-06-06 11:55] LABS: Alanine Aminotransferase 25 U/L (14-59); Albumin Globulin Ratio 1.1; Albumin Level 4.0 g/dL (3.4-5.0); Alkaline Phosphatase 82 U/L (46-116); Anion Gap 10.6; Aspartate Amino Transferase 27 U/L (15-37); Blood Urea Nitrogen 22.0 mg/dL (7.0-18.0); Calcium 9.3 mg/dL (8.5-10.1); Carbon Dioxide 33.2 mmol/L (21.0-32.0); Chloride 102 mmol/L (98-107); Estimated GFR (African America >60 (>=60 mL/min/1.73m^2); Estimated GFR (Non-African Ame 57 (>=60 mL/min/1.73m^2); Globulin 3.7 g/dL; Glucose 109 mg/dL (74-106); Potassium 3.8 mmol/L (3.5-5.1); Sodium 142 mmol/L (136-145); Total Protein 7.7 g/dL (6.4-8.2)
[2025-06-06 12:14] LABS: Band Neutrophils Absolute 0.3 10^3/uL (0.0-0.3); Lymphocytes Absolute Manual 4.51 10^3/uL (1.20-3.80); Lymphocytes Percent Manual 16.0 % (20.5-60.0); Segmented Neut Absolute Manual 17.76 10^3/uL (1.4-6.5); Segmented Neutrophils % Manual 63.0 (43.0-75.0)
[2025-06-06 12:15] LABS: Basophils Abs Manual 1.41 10^3/uL (0.00-0.10); Basophils Percent Manual 5.0 % (0.2-2.0); Eosinophils Absolute Manual 0.84 10^3/uL (0.00-0.70); Eosinophils Percent Manual 3.0 % (0.9-7.0); Metamyelocytes Absolute Manual 1.41; Monocytes Absolute Manual 1.12 10^3/uL (0.30-0.80); Monocytes Percent Manual 4.0 % (1.7-12.0); Myelocytes % Manual 3.0; Myelocytes Absolute Manual 0.84
--- NOTE | 2025-06-06 12:36 | CT_ITS ---
The [address] [address] Patient Name: ZAYNAB LUTZ MRN: [id number] date: 1955 Sex: F Assigned Patient Location: ER Current Patient Location: ER Accession/Order Number: [id number] Exam Date: 06/06/2025 12:28 Report Date: 06/06/2025 12:59 At the request of: POLLO ANDUJAR DO Procedure: CT abdomen pelvis wo/w con CT ABDOMEN AND PELVIS WITHOUT AND WITH INTRAVENOUS CONTRAST COMPARISON: 02/18/2023 CLINICAL DATA: Left lower quadrant pain. History of auto transfer the left kidney. Spiral images were obtained through the abdomen and pelvis before and after intravenous administration of [address] exam was performed using one or more following dose reduction techniques: Automated exposure control, adjustment of the mA and/or kV according to patient size, or use of iterative reconstruction technique. Limited cuts through the lung bases show minor atelectasis or scarring. The gallbladder is surgically absent. There is mild intra and extrahepatic biliary prominence, without evidence of common duct stones. There may be slight fatty infiltration of the liver. There is a tiny right hepatic hypodensity posteriorly which may be a cyst. The spleen and adrenal glands show no acute findings. The pancreas is normal in size and contour. The pancreatic duct is diffusely slightly prominent measuring 3 - 4 mm in diameter. The left kidney is in the pelvis. Precontrast, no renal, ureteral or bladder stones are seen. Following contrast administration, the renal nephrograms are symmetric. No hydronephrosis is identified. There is atherosclerotic plaque involving the aorta and iliac arteries. No enlarged lymph nodes or ascites are seen. There is borderline caliber fluid-containing duodenum and air-containing proximal small bowel at the the left upper quadrant. The remaining small bowel loops are normal in caliber. There is mild colonic stool. Slight dextroscoliotic curvature and degenerative changes are seen at the spine. Images through the pelvis show no dilated bowel. The appendix is surgically absent. There is a small amount of distal colonic stool. No diverticular disease is identified. There are no dominant adnexal cysts. The urinary bladder shows no abnormalities for the degree of distention. No ascites is seen. CT/CT abdomen pelvis wo/w con IMPRESSION: POSSIBLE FATTY LIVER WITH TINY RIGHT HEPATIC CYST. BILIARY AND PANCREATIC DUCTAL PROMINENCE, WITHOUT EVIDENCE OF STONES. LEFT PELVIC KIDNEY. NO OBSTRUCTIVE UROPATHY OR STONE DISEASE. NONSPECIFIC BORDERLINE CALIBER DUODENUM AND PROXIMAL JEJUNUM. NO OTHER ACUTE FINDINGS. Impression dictated by: Ada Boykin M.D. 06/06/2025 12:59 PM Dictation Location: [place] [address] Electronically authenticated by: [id number] Y Date: 06/06/2025 12:59
[2025-06-06 12:54] LABS: Glucose Urine UA NEGATIVE (NEGATIVE)
[2025-06-06 12:59] LABS: Crystals Seen? None Seen #/HPF (None Seen)
[2025-06-06 13:00] LABS: Cast Seen? NONE SEEN #/LPF (NONE SEEN)
[2025-06-06 14:01] VITALS: BP 135/72; PULSE 74; O2SAT 98
[2025-06-06 14:02] VITALS: O2SAT 98
[2025-06-06 18:22] VITALS: BP 124/69; PULSE 66; TEMP 37.3; O2SAT 97
--- OUTSIDE RECORDS SUMMARY | 2025-06-06 18:48 | XMS_ITS | CCD ---
Author Organization [facility] Care Team Providers Care Sole Scraper Name Role Phone Joel Monroe Unavailable Unavailable Joel Monroe Unavailable Unavailable Joel Monroe Unavailable Unavailable AMMON LUCAS~[phone] UNKNOWN Unavailable Unavailable Joel Monroe Unavailable Unavailable Joel Monroe Unavailable Unavailable Joel Monroe Unavailable Unavailable AMMON LUCAS~[phone] UNKNOWN Unavailable Unavailable Sheeba Manuela Unavailable Ayaka [...] Provider Ammon Lucas MD Primary Care Provider AMMON [...] Provider Ammon Hodges MD Primary Care Provider Ammon Lucas MD Primary Care Provider AMMON LUCAS Primary Care Unavailable PROVIDER, UNKNOWN [...] Provider Ammon Lucas MD Primary Care Provider [phone] Provider, Outside Attending Provider Unavailable Ammon Lucas MD Attending Provider [phone] KERI TOPETE Attending Unavailable BRIANA, DANIA K Attending Unavailable Allergies Allergy Classification Reported Allergen(s) Allergy Type Date of Onset Reaction(s) Facility (9 sources) amoxicillin; Translations: [amoxicillin] Drug Allergy 02-13-20 17 Unknown [facility] Repository (20 sources) Bee/Wasp/Ant venom; Translations: [Bee Stings] Propensity to adverse reactions (disorder) 12-05-19 Unknown, Rash [facility] Repository (20 sources) clindamycin; Translations: [clindamycin] Drug Allergy 09-24-20 15 Rash, Shortness of Breath, Hives [facility] Repository (20 sources) doxycycline; Translations: [doxycycline] Drug Allergy 03-03-20 23 Rash, Hives [facility] Repository (11 sources) Penicillins; Translations: [penicillins] Propensity to adverse reactions (disorder) 02-13-20 17 Hives, Rash, Intolerance [facility] Repository (5 sources) Penicillin; Translations: [penicillin] Drug Allergy 06-18-20 18 Unknown [facility] Repository (12 sources) Bee pollen Drug Allergy 06-17-20 Comment:Bee Stings [facility] Comment on above: Onset Date: 06/17/20 18 (11 sources) Codeine Drug Allergy 08-04-20 Comment:upset stomach [employer] Other (20 sources) Codeine; Translations: [CODEINE] Drug Allergy 06-17-20 GI Upset, GI intolerance, GI Disturbance [facility] Comment on above: Onset Date: 08/04/20 18 (11 sources) Pseudoephedrine Drug Allergy 08-04-20 Unknown [employer] Other (6 sources) patient allergy list reviewed by nurse or physicia Propensity to adverse reactions 08-10-20 Comment:Done [employer] Other (3 sources) Allergies Reconciled Propensity to adverse reactions Unknown [employer] Other (1 source) Substance with penicillin structure and antibacterial mechanism of action (substance) Drug allergy 08-04-20 18 Unknown [employer] Other (8 sources) Fluconazole Drug Allergy 06-03-20 [facility] (20 sources) Venom-Honey Bee; Translations: [VENOM-HONEY BEE] Drug Allergy 12-05-19 Rash [facility] (20 sources) Doxycycline; Translations: [DOXYCYCLINE HYCLATE] Drug Allergy 03-03-20 Rash [facility] Repository (3 sources) BEE VENOM PROTEIN (HONEY BEE); Translations: [BEE VENOM PROTEIN (HONEY BEE)] Propensity to adverse reactions to drug (disorder) 12-05-19 [facility] Repository (10 sources) Bee pollen Allergy to substance 04-12-20 [facility] (10 sources) Fluconazole Allergy to substance 04-12-20 Dizziness [facility] (10 sources) Honey bee venom Allergy to substance 12-05-19 Rash, Hives [facility] (10 sources) Pseudoephedrine Drug Allergy 04-12-20 [facility] (1 source) 12 Hour Decongestant Allergy to substance 04-12-20 [facility] Comment on above: Onset Date: 08/04/20 [...] four hours as needed for pain Hydrocodone-Acetaminophen ([place]) 5-325 mg Tablet Discontinued 1 - 2 [...] needed 05/27/2024 Active take 2 tablets by [facility] three times daily as needed for muscle [...] NASE) 50 mcg/actuation nasal spray Use 1 Cutler in the nose as needed for cold/allergy symptoms. Take in allergy season Active fluticasone (STEVAN NASE) 50 mcg/actuation nasal spray Use 1 Cutler in the nose once daily. 0 Active FLONASE Active Flonase Active Flonase Sharon-Juwan garzon Comment on above: Use 1 Cutler in the n ose once daily. Use 1 Cutler in the n ose as needed for [...] 03/05/2023 06/03/2024 Discontinued (Med list cleanup) nystatin 041219 unt/ml oral suspension (11 sources) Polyene Antifungal Start: 06-05-20 take 4 mL by mouth four times daily Nystatin 729667 UNIT/ML 4 mL Mouth/Throat Four times a day for 14 day(s) 24 Aug, 2023 Active Nystatin 649593 UNIT/ML swish and swallow 5 milliliters four [...] 1130 docusate sodium 50 mg / sennosides, detention 8.6 mg oral tablet (1 source) Start: [...] End: 06-03-2025 Glycerin (Child) suppository Discontinued SUPP [facility] April 12, 2024 12:00am June 03, 2025 11:02am ibuprofen 800 mg oral tablet (20 sources) Nonsteroidal Anti-inflammatory Drug Start: 05-12-2018 End: 06-03-2025 take 1 tablet by mouth three times daily as needed for pain Ibuprofen 800 mg Tablet Discontinued 800 MG PO Three times daily as needed for Pain May 12, 2018 12:00am June 03, 2025 11:33am take 2 tablets by [facility] every six hours as needed ibuprofen 200 [...] 03, 2025 11:33am take 1 capsule by [facility] every twenty-four hours Flomax 0.4 MG 1 [...] Coronary arteriosclerosis; Translations: [Atherosclerotic heart disease of [place] coronary artery without angina pectoris] Onset: 02-08-2025 [...] 03-04-2023 Chronic Other aftercare (1 source) Other 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 and 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 (current) 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; Translations: [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] Onset: 02-25-2023 Episodic [...] Name Value Interpretation Reference Range Facility 25(OH)D3 [facility] 2024 25-hydroxyvitamin D3 [Mass/Vol] 47.4 ng/mL Normal 31.0-80.0 [facility] Comment on above: Order Comment: Speci men Type: BLOOD SPECIMEN [facility] Address: [address] [place] [address] Performed By: #### 1 989-3 #### [facility] CLIA [id number] [address] [place] [address] OF [facility] CNOVon 05-04-2025 CNOV Office Visit (LOORRM ) -- KAREN ZAIDI ([id number]) 1955 F Date Time Provider Department 05/04/25 1:45 PM ORQUIDEA SAAVEDRA During your visit today, we recorded the following information about you: Orquidea Saavedra MD 05/05/2025 11:26 AM Signed see dictated note Orquidea Saavedra II, MD Referring Provider: GI SIDDIQI [[id number]] Allergies As of Date: 05/04/2025 Noted Allergy [...] (FLONASE) 50 mcg/actuation nasal spray Use 1 Cutler in the nose as needed for cold/allergy [...] Resolved 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 Other hyperlipidemia [E78.49] 02/19/2024 Ovarian varices [I86.2] 02/19/2024 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/2024 Narcotic drug use [F11.90] 02/19/2024 Sinus bradycardia on ECG [R00.1] 02/20/2024 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 Malnutrition of moderate degree (HCC) [E44.0] 03/03/2024 Encounter Status:Closed by ORQUIDEA SAAVEDRA II on 05/05/25 Normal [facility] Hcys SerPl-sCncon 05-04-2025 Homocysteine [Moles/Vol] 22.2 umol/L High <15.1 [facility] Comment on above: Order Comment: Speci men Type: BLOOD SPECIMENOrdering Facility: [facility] Address: [address] [place] [address] Performed By: #### 1 3965-9 ####[facility] [id number] [address] STATES OF [facility] No Panel InformationOrdered By: Outside Provider on 05-04-2025 25-Hydroxy Vitamin D Total 47.4 ng/mL 31.0-80.0 [facility] Vitamin B12 Level >2000 pg/mL High 232-1245 [facility] Serum or plasma homocysteine measurement (moles/volume)Ordered By: Outside Provider on 05-04-2025 Homocysteine [Moles/Vol] 22.2 umol/L High <15.1 [facility] Vit B12 SerPl-mCncon 025 Cobalamin (Vitamin B12) [Mass/Vol] pg/mL High 232-1245 [facility] Comment on above: Order Comment: Speci men Type: BLOOD SPECIMENOrdering Facility: [facility] Address: [address] [place] [address] Performed By: #### 2 132-9 ####[facility] [id number] [address] [place] CT CHEST WO [...] detection for pulmonary nodules was performed utilizing citysocializer software. Finalized by Dayday Rodriguez MD on 04/28/2025 1:55 PM Normal [facility] CNOVon 03-08-2025 CNOV Office Visit (WHICCP ) -- KAREN ZAIDI ([id number]) 1955 F Date Time Provider Department 5/27/25 3:30 PM AUGUSTINA VARGAS GERALDP During your visit today, we recorded the following information about you: Blood pressure 120/66 Augustina Vargas MD 03/14/2025 11:17 PM Signed [facility] [id number] FOR CHRONIC PELVIC PAIN OUTPATIENT VISIT DATE 03/08/2025 OUTPATIENT VISIT TYPE FOLLOW UP CHIEF COMPLAINT follow up HISTORY OF PRESENT ILLNESS Karen is a 69 year old female who is in today for follow up. Since last visit: Pt reports that she is completing PT at [facility] and is doing a multitude of exercises [...] daily at (more content not included)... Normal [facility] 02-14-2025 CNPN Telephone (ZAHRA) -- KAREN ZAIDI ([id number]) 1955 F Date Time Provider Department 02/14/25 SACHI MARTINEZ During your visit today, we recorded the following information about you: Sachi Martinez APRN.[facility] 02/14/2025 10:37 AM Signed Please help [...] otherwise we have nothing available here in [place] at this time. Estefany Nino 03/03/2025 12:01 PM Signed Called and spoke with patient, scheduled sooner for Cardiology in [place] Scheduled for 06/07/2025 in [place]. 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 Other hyperlipidemia [E78.49] 02/19/2024 Ovarian varices [I86.2] 02/19/2024 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 Letter scan into [facility]. Recommendation: routed to nurse triage pool Last visit in this department: Visit date not found Last distance health visit in this department: Visit date not found Next visit in this department: Visit date not found Appointments for Next 60 Days Date Time Provider Location Dept Phone 03/08/2025 3:30 PM AUGUSTINA VARGAS Bld [phone] Cielo Gomez, RN 02/11/2025 1:17 PM Signed [...] Recommendation: routed to nurse triage pool Call [phone] Thanks Erendira Hodge RN 02/23/2025 2:06 PM Signed Patient identified by name and . States she uses flexeril and it is very helpful. States she typically pays out of pocket for it but decided to see if she can get it covered with PA. PA filled out on CMM. Méndez: [id number] Will monitor status. 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 Osteoporos Int. 2009;21(5):831-6. doi: 10.1007/[id number]. Epub 2008May 05. PMID: [id number]. Her alk phos levels have not been [...] if necessary, CC, NOF and ISCD and [facility]. She has osteoarthrosis involving hands and knees. Her right knee appears to have advanced tmri-zn-oqgy osteoarthrosis and is some (more content not included)... Normal [facility] 25(OH)D3 SerPl-mCncon 2024 25-hydroxyvitamin D3 [Mass/Vol] 33.3 ng/mL Normal 31.0-80.0 [facility] Comment on above: Order Comment: Speci men Type: BLOOD SPECIMENOrdering Facility: [facility] Address: [address] [place] [address] Result Comment: Clas sification of 25 OH Vitamin D status: Deficiency/Insufficiency: < or = 30 ng/ml. Sufficiency/Optimal Levels: 31-80 ng/mL Toxicity: > 100 ng/mL. Test performed by chemiluminescent immunoassay. Performed By: #### 1 989-3 ####[facility] [id number] [place] [address] [place] ALK PHOS BONE SPECon 025 ALK PHOSPHATASE, BONE 13.5 ug/L Normal [facility] Comment on above: Order Comment: Huseyin ponce Type: BLOOD SPECIMENOrdering Facility: [facility] Address: [address] [place] [address] Result Comment: INTE RPRETIVE INFORMATION: Bone Specific [...] bone specific alkaline phosphatase result. Performed By: [facility] [address] [place] [address] Blender Machine Operator: Danie Andrews MD, PhD CLIA Number: [id number] Performed By: #### A PBONE ####[facility] [employer]tersystems InternationalIA [id number] [place] [address] ALP SerPl-cCncon 02-07-2025 ALP [Catalytic activity/Vol] 83 U/L Normal 34-123 [facility] Comment on above: Order Comment: Speci [facility] Type: BLOOD SPECIMENOrdering Facility: [facility] Address: [address] [place] [address] Performed By: #### 3 016-3, 6768-6, 47391-6, 39765-3 ####[facility]CLIA [id number] [place] [id number] [place] CALCIUM, 24 HR URINEon 02-07 Calcium (24H U) [Mass/Time] 216.6 mg/24 hr Normal 100.0-300. 0 [facility] Comment on above: Order Comment: Speci men Type: URINE SPECIMENOrdering Facility: [facility] Address: [address] [place] [address] Performed By: #### U SIGRID, UCALCD ####[facility] [id number] [address] STATES [facility]ORY[facility]IA [id number] [place] [address] [place] PERIOD (HRS) 24 hr Normal [facility] Comment on above: Order Comment: Speci men Type: URINE SPECIMENOrdering Facility: [facility] Address: [address] [place] [address] Performed By: #### U SIGRID, UCALCD ####[facility] [id number] [place] [id number] [place] STATES [facility]ORYCLIA [id number] [place] [address] [place] Specimen volume (24H U) 3.8 L Normal [facility] Comment on above: Order Comment: Speci men Type: URINE SPECIMENOrdering Facility: [facility] Address: [address] [place] [address] Performed By: #### U CRD, UCALCD ####[facility]CLIA [id number] [place] [id number] [place] STATES OF [facility] LABORATORYCLIA [id number] [place] [address] [place] CELIAC SCREENon 04-28-2025 GLIAD DEAMIDATED IGA QUAL Negative Normal Negative, Test not Indicated [facility] Comment on above: Order Comment: Huseyin pocne Type: BLOOD SPECIMENOrdering Facility: [facility] Address: [address] [place] [address] Result Comment: This is used as an aid in diagnosis of celiac disease. Clinical correlation is required. The following results were obtained with an Inova QUANTA Lite Gliadin IgA SIMONA Gliadin. Gliadin IgA values obtained with different manufacturers' assay methods may not be used interchangeably. The magnitude of the reported IgA levels cannot be correlated to an endpoint titer. Performed By: #### L [id number] ####[facility]IA [id number] [place] [address] [place] Gliadin peptide IgA Qn (S) 5 Units Normal <20 [facility] Comment on above: Order Comment: Huseyin ponce Type: BLOOD SPECIMENOrdering Facility: [facility] Address: [address] [place] [address] Performed By: #### L [id number] ####[facility]CLIA [id number] [place] [address] [place] INTERPRETATION No serological evide nce of celiac disease, however, if celiac disease is clinically suspected and patient is not on gluten-free diet, histological diagnosis may be considered. HLA testing may help with risk assessment. Normal [facility] Comment on above: Order Comment: Huseyin [facility] Type: BLOOD SPECIMENOrdering Facility: [facility] Address: [address] [place] [address] Performed By: #### L [id number] ####[facility] [id number] [place] [address] [place] TRANSGLUTAMINASE IGA ABS INTERPRETATION Negative Normal Negative [facility] Comment on above: Order Comment: Huseyin ponce Type: BLOOD SPECIMENOrdering Facility: [facility] Address: [address] [place] [address] Result Comment: The following results were obtained with Inova QUANTA Lite R h-tTG IgA SIMONA.???R h-tTG IgA values obtained with different manufacturers' assay methods may not be used interchangeably. The magnitude of the reported IgA levels cannot be corelated to an endpoint???concentration. This is used as an aid in diagnosis of celiac disease. Clinical correlation is required. Performed By: #### L [id number] ####[facility] [id number] [place] [address] [place] tTG IgA Qn (S) <2 Normal <4 [facility] Comment on above: Order Comment: Speci men Type: BLOOD SPECIMENOrdering Facility: [facility] Address: [address] [place] [address] Performed By: #### L [id number] ####[facility]CLIA [id number] [place] [address] [place] CREATININE, 24 HOUR URINEon 02-07-2025 Creatinine (24H U) [Mass/Time] 0.760 g/24 hr Low 0.800-1.80 0 [facility] Comment on above: Order Comment: Speci men Type: URINE SPECIMENOrdering Facility: [facility] Address: [address] [place] [address] Performed By: #### U CRD, UCALCD ####[facility]IA [id number] [place] [address] [place] [facility]ORATORYCLIA [id number] [place] [address] [place] Collagen crosslinked C-telop eptide [Mass/Vol]on 02-07-2025 C TELOPEPTIDE, BETA CROSS LINKED 502 pg/mL Normal 171-970 [facility] Comment on above: Order Comment: Speci men Type: BLOOD SPECIMENOrdering Facility: [facility] Address: [address] [place] [address] Performed By: #### 4 1171-0 ####[facility]CLIA [id number] [place] [id number] [place] Hcys SerPl-sCncon 02-07-2025 Homocysteine [Moles/Vol] 18.9 umol/L High <15.1 [facility] Comment on above: Order Comment: Speci men Type: BLOOD SPECIMENOrdering Facility: [facility] Address: [address] [place] [address] Performed By: #### 1 3965-9 ####[facility]CLIA [id number] [address], [address] IMMUNOFIXATION SCREEN, SERUM on 02-07-2025 MPA RESULT No M protein is identified. Normal No M protein is identified . [facility] Comment on above: Order Comment: Speci men Type: BLOOD SPECIMENOrdering Facility: [facility] Address: [address] [place] [address] Performed By: #### I [facility] ####[facility]CLIA [id number] [address] OF [facility] STAFF REVIEW (MPA) Reviewed by Juliet Waldron MD [facility] Comment on above: Order Comment: Speci men Type: BLOOD SPECIMENOrdering Facility: [facility] Address: [address] [place] [address] Performed By: #### I [facility] ####[facility]CLIA [id number] [address], [place] [address] [place] IMMUNOGLOBULINS,IGG,IGA,IGMo n 02-07-2025 IgG [Mass/Vol] 960 mg/dL Normal 700-1600 [facility] Comment on above: Order Comment: Speci men Type: BLOOD SPECIMENOrdering Facility: [facility] Address: [address] [place] [address] Performed By: #### S ROLF 2458-8 ####[facility]CLIA [id number] [address], [place] [address] [place] IgM [Mass/Vol] 260 mg/dL High 40-230 [facility] Comment on above: Order Comment: Speci men Type: BLOOD SPECIMENOrdering Facility: [facility] Address: [address] [place] [address] Performed By: #### S ROLF, 2458-8 ####[facility]CLIA [id number] [place] [address] [place] IgA SerPl-mCncon 02-07-2025 IgA [Mass/Vol] 247 mg/dL Normal 70-400 [facility] Comment on above: Order Comment: Speci men Type: BLOOD SPECIMENOrdering Facility: [facility] Address: [address] [place] [address] Performed By: #### S ROLF, 2458-8 ####[facility] LABIA [id number] [place] [address] [place] KAPPA/CHAMPAGNE,FREE,SERon 2024 Immunoglobulin light chains.kappa.free (S) [Mass/Vol] 16.8 mg/L Normal 3.3-19.4 [facility] Comment on above: Order Comment: Speci men Type: BLOOD SPECIMENOrdering Facility: [facility] Address: [address] [place] [address] Result Comment: Rare ly, increased serum free light chains levels may not be detected or accurately quantified due to prozone phenomenon or in high viscosity samples using this immunoturbidimetric assay. Correlation with other laboratory results and clinical findings is recommended. The [place] Free Light Chain was performed using the Binding Site Optilite immunoturbidimetric method. Result obtained with different assay methods or kits cannot be used interchangeably. Performed By: #### K LFRS ####[facility]CLIA [id number] [place] [address] [place] Immunoglobulin light chains.kappa/Immuno globulin light chains.lambda (S) [Mass ratio] 1.58 Normal 0.26-1.65 [facility] Comment on above: Order Comment: Speci men Type: BLOOD SPECIMENOrdering Facility: [facility] Address: [address] [place] [address] Performed By: #### K LFRS ####[facility]CLIA [id number] [place] [address] [place] Immunoglobulin light chains.lambda.free [Mass/Vol] 10.6 mg/L Normal 5.7-26.3 [facility] Comment on above: Order Comment: Speci men Type: BLOOD SPECIMENOrdering Facility: [facility] Address: [address] [place] [address] Result Comment: Rare ly, increased serum free [...] used interchangeably. Performed By: #### K LFRS ####[facility]CLIA [id number] [place] [address] [place] MONOCLONAL PROT UR W/INTERPo n 02-07-2025 STAFF REVIEW (UMPA) Reviewed by Juliet Waldron MD Normal [facility] Comment on above: Order Comment: Speci men Type: URINE SPECIMEN [facility] Address: [address] [place] [address] Performed By: #### U RMPA #### [facility] CLIA [id number] [address] [place] [address] [place] UMPA RESULT No M protein is identified. Normal No M protein is identified . [facility] Comment on above: Order Comment: Speci men Type: URINE SPECIMEN [facility] Address: [address] [place] [address] Performed By: #### U RMPA #### [facility] CLIA [id number] [address] [place] [address] [place] Magnesium SerPl-mCncon 02-07 Magnesium [Mass/Vol] 2.4 mg/dL High 1.7-2.3 [facility] Comment on above: Order Comment: Speci men Type: BLOOD SPECIMENOrdering Facility: [facility] Address: [address] [place] [address] Performed By: #### 3 016-3, 6768-6, 23382-0, 45343-5 ####[facility] [id number] [place] [address] [place] Osteocalcin SerPl-mCncon Osteocalcin [Mass/Vol] 17.8 ng/mL Normal 8.6-37.6 [facility] Comment on above: Order Comment: Speci men Type: BLOOD SPECIMENOrdering Facility: [facility] Address: [address] [place] [address] Performed By: #### 2 697-1 ####[facility] [id number] [place] [address] [place] PROCOLLAGEN TYPE 1on 025 PROCOLLAGEN TYPE 1 40 ug/L Normal [facility] Comment on above: Order Comment: Speci men Type: BLOOD SPECIMENOrdering Facility: [facility] Address: [address] [place] [address] Result Comment: Yo enopausal: 20 - 101 ug/L Postmenopausal: 16 - 96 ug/L Performed By: [facility] [address] [place] [address] Blender Machine Operator: Danie Andrews MD, PhD CLIA Number: [id number] Performed By: #### P ROCOL ####[id number] [place] [address] PTH-Intact SerPl-ncon 01-12 Parathyrin.intact [Mass/Vol] 31 pg/mL Normal 15-65 [facility] Comment on above: Order Comment: Speci men Type: BLOOD SPECIMENOrdering Facility: [facility] Address: [address] [place] [address] Performed By: #### 2 731-8 ####[facility] [id number] [place] [id number] [place] Renal function 2000 panelon 02-07-2025 Albumin [Mass/Vol] 4.3 g/dL Normal 3.9-4.9 [facility] Comment on above: Order Comment: Speci men Type: BLOOD SPECIMENOrdering Facility: [facility] Address: [address] [place] [address] Performed By: #### 3 016-3, 6768-6, 48886-9, 21261-8 ####[facility] [id number] [place] [address] [place] Anion gap [Moles/Vol] 11 mmol/L Normal 8-15 [facility] Comment on above: Order Comment: Speci men Type: BLOOD SPECIMENOrdering Facility: [facility] Address: [address] [place] [address] Performed By: #### 3 016-3, 6768-6, 35772-3, 15332-4 ####[facility] [id number]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 [place] [address] Performed By: #### L [id number] ####[facility] LABCLIA [id number] [place] [address] [place] Leukocyte esterase Test strip Ql (U) Negative Normal Negative [facility] Comment on above: Order Comment: Speci men Type: URINE SPECIMENOrdering Facility: [facility] Address: [address] [place] [address] Performed By: #### L [id number] ####[facility] LABCLIA [id number] [place] [address] [place] Nitrite Ql (U) Negative Normal Negative [facility] Comment on above: Order Comment: Speci men Type: URINE SPECIMENOrdering Facility: [facility] Address: [address] [place] [address] Performed By: #### L [id number] ####[facility] LABCLIA [id number] [place] [address] [place] pH (U) 5.5 [pH] Normal <8.5 [facility] Comment on above: Order Comment: Speci men Type: URINE SPECIMENOrdering Facility: [facility] Address: [address] [place] [address] Performed By: #### L [id number] ####[facility] LABCLIA [id number] [place] [address] [place] Protein (U) [Mass/Vol] Negative Normal Negative [facility] Comment on above: Order Comment: Speci men Type: URINE SPECIMENOrdering Facility: [facility] Address: [address] [place] [address] Performed By: #### L [id number] ####[facility] LABIA [id number] [place] [address] [place] Specific gravity (U) [Rel density] 1.010 Normal 1.005-1.03 0 [facility] Comment on above: Order Comment: Speci men Type: URINE SPECIMENOrdering Facility: [facility] Address: [address] [place] [address] Performed By: #### L [id number] ####[facility] LABIA [id number] [place] [address] [place] Urobilinogen Ql (U) 0.2 EU/dL Normal 0.2-1.0 EU/dL [facility] Comment on above: Order Comment: Speci men Type: URINE SPECIMENOrdering Facility: [facility] Address: [address] [place] [address] Performed By: #### L [id number] ####[facility] [id number] [place] [address] [place] CHEST WO [...] Villafuerte MD on 05/11/2024 8:36 AM Normal [facility] CREATININE, BLOOD (POC)on Creatinine [Mass/Vol] 0.80 mg/dL 0.7 - 1.4 mg/dL [facility] eGFR (POCT) mL/min/1.7 3 m2 [facility] Location:Radiology [facility], [address] [place] [address] POINT OF CARE [facility] CT ABD/PEL W IVCONon 024 CT [...] obtained in 12 months --END OF FINDING-- Flatbed Driver: TRINI Transcribe Date/Time: Apr 30 2024 12:52P Dictated by : KARI LUJAN MD This examination was interpreted and the report reviewed and electronically signed by: KARI LUJAN MD on Apr 30 2024 1:16PM EST [id number] ACTIONABLE Invalid Interpretation Code [facility] NURSING PROGon 04-26-2024 NURSING PROG HNO ID: [id number] Author: JULIEN OLEA RN Service: Radiology Author [...] April 26, 2024 TIME: 1:22 PM Normal [facility] URINALYSIS, REFLEX MICROSCOP ICon 02-19-2024 Bilirubin Ql [...] [facility] Urobilinogen Ql (U) Normal Normal [facility] URINALYSIS, REFLEX MICROSCOP ICon 12-25-2023 Bilirubin [...] [facility] Urobilinogen Ql (U) Normal Normal [facility] URINALYSIS, REFLEX MICROSCOP ICon 12-22-2023 Bilirubin Ql (U) Negative Negative [facility] Clarity (Unsp spec) Clear Clear [facility] Color (U) Colorless Yellow [facility] Glucose Test strip (U) [Mass/Vol] Negative Trace, Negative [facility] Hemoglobin Ql (U) Negative Negative, Trace [facility] Ketones Ql (U) Negative Negative, Trace [facility] Leukocyte esterase Test strip Ql (U) Negative Negative, 25 Jefry/uL [facility] Nitrite Ql (U) Negative Negative [facility] pH (U) 5.0 [pH] 5.0 - 8.0 [facility] Protein (U) [Mass/Vol] Negative Trace, Negative [facility] Specific gravity (U) [Rel density] 1.006 1.005 - 1.030 [facility] Urobilinogen Ql (U) Normal Normal [facility] ECG 12 leadon 11-13-2023 TRACEMASTERVUE [facility] CBC without diffon Erythrocyte distribution width (RBC) [Ratio] 14.5 % 11.5 - 15.0 % [facility] Hematocrit (Bld) [Volume fraction] 38.5 % 35 - 47 % [facility] Hemoglobin (Bld) [Mass/Vol] 12.9 g/dL 11.7 - 15.5 g/dL [facility] MCH (RBC) [Entitic mass] 29.2 pg 27 - 34 pg [facility] MCHC (RBC) [Mass/Vol] 33.6 g/dL 32 - 36 g/dL [facility] MCV (RBC) [Entitic vol] 87 fL 80 - 100 fL [facility] Platelet mean volume (Bld) [Entitic vol] 10.5 fL 7 - 12 fL [facility] Platelets (Bld) [#/Vol] 205 10*3/uL [facility] RBC (Bld) [#/Vol] 4.43 10*6/uL [facility] WBC corrected for nucl RBC Auto (Bld) [#/Vol] 4.8 [facility] COMPLETE BLOOD COUNTon 11-12 Erythrocyte distribution width (RBC) [Ratio] 14.5 % Normal 11.5-15.[address] [facility] Comment on above: Performed By: #### C BC, RADIATION PHYSICIST #### [facility] ([id number]) [address], [address] [place] [address] Hematocrit (Bld) [Volume fraction] 38.5 % Normal 35-[address] [facility] Comment on above: Performed By: #### C BC, RADIATION PHYSICIST #### [facility] ([id number]) [address], [address] [place] [address] Hemoglobin (Bld) [Mass/Vol] 12.9 g/dL Normal 11.7-15.[address] [facility] Comment on above: Performed By: #### C ZAIDA, RADIATION PHYSICIST #### [facility] ([id number]) [address], [address] [place] [address] MCH (RBC) [Entitic mass] 29.2 pg Normal 27-[address] [facility] Comment on above: Performed By: #### C ZAIDA, RADIATION PHYSICIST #### [facility] ([id number]) [address], [address] [place] [address] MCHC (RBC) [Mass/Vol] 33.6 g/dL Normal 32-[address] [facility] Comment on above: Performed By: #### C ZAIDA, RADIATION PHYSICIST #### [facility] ([id number]) [address], [address] [place] [address] MCV (RBC) [Entitic vol] 87 fL Normal 80-[address] [facility] Comment on above: Performed By: #### Kenneth CERDA, RADIATION PHYSICIST #### [facility] ([id number]) [address], [address] [place] [address] Platelet mean volume (Bld) [Entitic vol] 10.5 fL Normal 7-[address] [facility] Comment on above: Performed By: #### Kenneth CERDA, RADIATION PHYSICIST #### [facility] ([id number]) [address], [address] [place] [address] Platelets (Bld) [#/Vol] 205 10*3/uL Normal 150-[address] [facility] Comment on above: Performed By: #### C BC, RADIATION PHYSICIST #### [facility] ([id number]) [address] [address] RBC COUNT 4.43 X10E12/L Normal 3.80-5.[address] [facility] Comment on above: Performed By: #### C BC, RADIATION PHYSICIST #### [facility] ([id number]) [address] [address] WBC (Bld) [#/Vol] 4.8 10*3/uL Normal 4.0-11.0 [facility] Comment on above: Performed By: #### C ZAIDA, RADIATION PHYSICIST #### [facility] ([id number]) [address] [address] CREATININEon 11-12-2023 Creatinine [Mass/Vol] 0.90 mg/dL Normal 0.40-1.[address] [facility] Comment on above: Result Comment: METH OD TRACEABLE TO IDMS STANDARD Performed By: #### C ZAIDA, RADIATION PHYSICIST #### [facility] ([id number]) [address] [address] GFR/1.73 sq M.predicted among non-blacks MDRD (S/P/Bld) [Vol rate/Area] 71 mL/min/{1.73_m2} Normal >[address] [facility] Comment on above: Result Comment: Reported eGFR is based on the CKD-EPI 2020 equation that does not use a race coefficient. Performed By: #### C ZAIDA, RADIATION PHYSICIST #### [facility] ([id number]) [address] [address] Creatinine includes GFR, ser umon 11-12-2023 Creatinine [Mass/Vol] 0.90 mg/dL 0.40 - 1.00 mg/dL [facility] Comment on above: METHOD TRACEABLE TO IDMS STANDARD eGFR (CKD-EPI)non-race dependent 71 - PINF [facility] Comment on above: Reported eGFR is based on the CKD-EPI 2020 equation that does not use a race coefficient. [facility] CBC AUTO DIFFon 02-18-2023 BASO # 0.1 103/ul Normal 0.0-0.1 [facility] Comment on above: Performed By: #### C BC #### [facility] [address] [address] [address] Camilo Reese Basophils/100 WBC (Bld) 1.4 % Normal 0.2-2.0 [facility] Comment on above: Performed By: #### C BC #### [facility] [address] [address] [address] Camilo Reese EO # 0.1 103/ul Normal 0.0-0.7 [facility] Comment on above: Performed By: #### C BC #### [facility] [address] [place] [address] Dr. Camilo Reese Eosinophils/100 WBC (Bld) 2.4 % Normal 0.9-7.0 [facility] Comment on above: Performed By: #### C BC #### [facility] [address] [place] [address] Dr. Camilo Reese Erythrocyte distribution width (RBC) [Ratio] 13.9 % Normal 11.0-15.0 [facility] Comment on above: Performed By: #### C BC #### [facility] [address] [place] [address] Dr. Camilo Reese Hematocrit (Bld) [Volume fraction] 41.3 % Normal 36.0-48.0 [facility] Comment on above: Performed By: #### C BC #### [facility] [address] [address] [address] Camilo Reese Hemoglobin (Bld) [Mass/Vol] 13.5 g/dL Normal 12.0-16.0 [facility] Comment on above: Performed By: #### C BC #### [facility] [address] [place] [address] Dr. Camilo Reese IG # 0.00 10e3/ul Normal 0.00-0.03 [facility] Comment on above: Performed By: #### C BC #### [facility] [address] [place] [address] Dr. Camilo Reese IG % 0.0 % Normal 0.0-0.5 [facility] Comment on above: Performed By: #### C BC #### [facility] [address] [place] [address] Dr. Camilo Reese LYMPH # 1.3 103/ul Normal 1.2-3.8 [facility] Comment on above: Performed By: #### C BC #### [facility] [address] [place] [address] Dr. Camilo Reese Lymphocytes/100 WBC (Bld) 31.0 % Normal 20.5-60.0 [facility] Comment on above: Performed By: #### C BC #### [facility] [address] [place] [address] Dr. Camilo Reese MANUAL DIFF REQ NO Normal [facility] Comment on above: Performed By: #### C BC #### [facility] [address] [place] [address] Dr. Camilo Reese MCH (RBC) [Entitic mass] 29.2 pg Normal 26.7-34.0 [facility] Comment on above: Performed By: #### C BC #### [facility] [address] [place] [address] Dr. Camilo Reese MCHC (RBC) [Mass/Vol] 32.7 g/dL Normal 29.9-35.2 [facility] Comment on above: Performed By: #### C BC #### [facility] [address] [place] [address] Dr. Camilo Reese MCV (RBC) [Entitic vol] 89.4 fL Normal 81.0-99.0 [facility] Comment on above: Performed By: #### C BC #### [facility] [address] [place] [address] Dr. Camilo Reese MONO # 0.6 103/ul Normal 0.3-0.8 [facility] Comment on above: Performed By: #### C BC #### [facility] [address] [place] [address] Dr. Camilo Reese Monocytes/100 WBC (Bld) 13.8 % Critically high 1.7-12.0 [facility] Comment on above: Performed By: #### C BC #### [facility] [address] [place] [address] Dr. Camilo Reese NEUT # 2.2 103/ul Normal 1.4-6.5 [facility] Comment on above: Performed By: #### C BC #### [facility] [address] [place] [address] Dr. Camilo Reese Neutrophils/100 WBC (Bld) 51.4 % Normal 43.0-75.0 [facility] Comment on above: Performed By: #### C BC #### [facility] [address] [place] [address] Dr. Camilo Reese Platelet mean volume (Bld) [Entitic vol] 11.5 fL Normal 9.5-13.5 [facility] Comment on above: Performed By: #### C BC #### [facility] [address] [place] [address] Dr. Camilo Reese PLT 254 103/ul Normal 150-450 [facility] Comment on above: Performed By: #### C BC #### [facility] [address] [place] [address] Dr. Camilo Reese RBC 4.62 106/ul Normal 4.20-5.40 [facility] Comment on above: Performed By: #### C BC #### [facility] [address] [place] [address] Dr. Camilo Reese WBC 4.2 103/ul Normal 4.0-11.0 [facility] Comment on above: Performed By: #### C BC #### [facility] [address] [place] [address] ABD/PELVIS WO CONon [...] by: ELIE NEVES Date: 2023-02-18 11:36 Normal [facility] ER URINE PROFILEon 3 Bilirubin Ql (U) SMALL Abnormal NEGATIVE [facility] Comment on above: Performed By: #### U MICRO, ERUR #### [facility] [address] [address] [address] Camilo Reese Clarity (U) CLEAR Normal CLEAR [facility] Comment on above: Performed By: #### U MICRO, ERUR #### [facility] [address] [address] [address] Camilo Reese Color (U) DK. YELLOW Normal YELLOW [facility] Comment on above: Performed By: #### U MICRO, ERUR #### [facility] [address] [address] [address] Camilo Reese ERUAHD A micrscopic examina tion will be performed if indicated. Normal [facility] Comment on above: Performed By: #### U MICRO, ERUR #### [facility] [address] [address] [address] Camilo Reese Glucose Ql (U) Negative Normal NEGATIVE [facility] Comment on above: Performed By: #### U MICRO, ERUR #### [facility] [address] [address] [address] Camilo Reese Hemoglobin Ql (U) TRACE-INTACT Abnormal NEGATIVE [facility] Comment on above: Performed By: #### U MICRO, ERUR #### [facility] [address] [place] [address] Dr. Camilo Reese Ketones Ql (U) TRACE Abnormal NEGATIVE [facility] Comment on above: Performed By: #### U MICRO, ERUR #### [facility] [address] [place] [address] Dr. Camilo Reese LEUKOCYTES Negative Normal NEGATIVE [facility] Comment on above: Performed By: #### U MICRO, ERUR #### [facility] [address] [place] [address] Dr. Camilo Reese Nitrite Ql (U) Negative Normal NEGATIVE [facility] Comment on above: Performed By: #### U MICRO, ERUR #### [facility] [address] [place] [address] Dr. Camilo Reese pH (U) 5.0 [pH] Normal 5-9 [facility] Comment on above: Performed By: #### U MICRO, ERUR #### [facility] [address] [place] [address] Dr. Camilo Reese SPEC GRAVITY >=1.030 Abnormal 1.005-<=1. 025 [facility] Comment on above: Performed By: #### U MICRO, ERUR #### [facility] [address] [place] [address] Dr. Camilo Reese UA PROTEIN Negative Normal NEGATIVE/ TRACE [facility] Comment on above: Performed By: #### U MICRO, ERUR #### [facility] [address] [place] [address] Dr. Camilo Reese UR MICRO IND INDICATED Normal [facility] Comment on above: Performed By: #### U MICRO, ERUR #### [facility] [address] [place] [address] Dr. Camilo Reese Urobilinogen Qn (U) 0.2 {[place]berta'U}/dL Normal 0.2 - 1. 0 [facility] Comment on above: Performed By: #### U MICRO, ERUR #### [facility] [address] [address] [address] Camilo Reese PROF 14(COMP METB)on 023 Albumin [Mass/Vol] 4.0 g/dL Normal 3.4-5.[address] [facility] Comment on above: Performed By: #### C MP #### [facility] [address] [address] [address] Camilo Reese Albumin/Globulin [Mass ratio] 1.2 {ratio} Normal [facility] Comment on above: Performed By: #### C MP #### [facility] [address] [place] [address] Dr. Camilo Reese ALP [Catalytic activity/Vol] 69 U/L Normal 46-116 [facility] Comment on above: Performed By: #### C MP #### [facility] [address] [place] [address] Dr. Camilo Reese ALT [Catalytic activity/Vol] 18 U/L Normal 14-59 [facility] Comment on above: Performed By: #### C MP #### [facility] [address] [place] [address] Dr. Camilo Reese Anion gap [Moles/Vol] 11.7 mmol/L Normal [facility] Comment on above: Performed By: #### C MP #### [facility] [address] [place] [address] Dr. Camilo Reese AST [Catalytic activity/Vol] 21 U/L Normal 15-37 [facility] Comment on above: Performed By: #### C MP #### [facility] [address] [place] [address] Dr. Camilo Reese Bilirubin [Mass/Vol] 1.0 mg/dL Normal 0.2-1.0 [facility] Comment on above: Performed By: #### C MP #### [facility] [address] [place] [address] Dr. Camilo Reese Calcium [Mass/Vol] 9.1 mg/dL Normal 8.5-10.1 [facility] Comment on above: Performed By: #### C MP #### [facility] [address] [address] [address] Camilo Reese Chloride [Moles/Vol] 103 mmol/L Normal 98-107 [facility] Comment on above: Performed By: #### C MP #### [facility] [address] [address] [address] Camilo Reese CO2 [Moles/Vol] 28.7 mmol/L Normal 21.0-32.0 [facility] Comment on above: Performed By: #### C MP #### [facility] [address] [address] [address] Camilo Reese Creatinine [Mass/Vol] 0.95 mg/dL Normal 0.55-1.02 [facility] Comment on above: Performed By: #### C MP #### [facility] [address] [address] [address] Camilo Reese EGFR-AF INDONESIAN >60 Normal >=60 [facility] Comment on above: Performed By: #### C MP #### [facility] [address] [address] [address] Camilo Reese EGFR-NON AF INDONESIAN 59 mL/min/1.73m2 Critically low >=60 [facility] Comment on above: Performed By: #### C MP #### [facility] [address] [address] [address] Camilo Reese Globulin (S) [Mass/Vol] 3.4 g/dL Normal [facility] Comment on above: Performed By: #### C MP #### [facility] [address] [address] [address] Camilo Reese Glucose [Mass/Vol] 101 mg/dL Normal 74-[address] [facility] Comment on above: Performed By: #### C MP #### [facility] [address] [address] [address] Camilo Reese Potassium [Moles/Vol] 3.4 mmol/L Critically low 3.5-5.1 [facility] Comment on above: Performed By: #### C MP #### [facility] [address] [address] [address] Camilo Reese Protein [Mass/Vol] 7.4 g/dL Normal 6.4-8.2 [facility] Comment on above: Performed By: #### C MP #### [facility] [address] [place] [address] Dr. Camilo Reese Sodium [Moles/Vol] 140 mmol/L Normal 136-145 [facility] Comment on above: Performed By: #### C MP #### [facility] [address] [address] [address] Camilo Reese Urea nitrogen [Mass/Vol] 17.0 mg/dL Normal 7.0-18.0 [facility] Comment on above: Performed By: #### C MP #### [facility] [address] [place] [address] Dr. Camilo Reese Urea nitrogen/Creatinine [Mass ratio] 17.9 mg/mg Normal [facility] Comment on above: Performed By: #### C MP #### [facility] [address] [place] [address] Dr. Camilo Reese URINE MICROSCOPIC ONLYon BACTERIA TRACE Abnormal NONE SEEN [facility] Comment on above: Performed By: #### U MICRO, ERUR #### [facility] [address] [place] [address] Dr. Camilo Reese Bacteria identified Cx Nom (U) NOT INDICATED Normal [facility] Comment on above: Performed By: #### U MICRO, ERUR #### [facility] [address] [place] [address] Dr. Camilo Reese CAST NONE SEEN Normal NONE SEEN [facility] Comment on above: Performed By: #### U MICRO, ERUR #### [facility] [address] [address] [address] Camilo Reese Crystals LM Nom (Urine sed) NONE SEEN Normal NONE SEEN [facility] Comment on above: Performed By: #### U MICRO, ERUR #### [facility] [address] [place] [address] Dr. Camilo Reese Epithelial cells LM Ql (Urine sed) RARE Normal NONE SEEN /RARE [facility] Comment on above: Performed By: #### U MICRO, ERUR #### [facility] [address] [address] [address] Camilo Reese MUCOUS TRACE Abnormal NONE SEEN [facility] Comment on above: Performed By: #### U MICRO, ERUR #### [facility] [address] [address] [address] Camilo Reese RBC 0-2 Normal 0-2 [facility] Comment on above: Performed By: #### U MICRO, ERUR #### [facility] [address] [address] [address] Camilo Reese WBC NONE SEEN Normal NONE SEEN [facility] Comment on above: Performed By: #### U MICRO, ERUR #### [facility] [address] [address] [address] Camilo Reese US EXT NON VASC [...] DEREK MCCRAY Date: 2023-02-18 14:07 Normal [facility] Urinalysis - AUTOMATEDon Appearance (U) clear [employer] Other Bilirubin Ql (U) Negative [employer] Other Color (U) light yellow [employer] Other Glucose Ql (U) Negative [employer] Other Hemoglobin Ql (U) trace intact [employer] Other Ketones Ql (U) Negative [employer] Other Leukocyte esterase Test strip Ql (U) Negative [employer] Other Nitrite Ql (U) Negative [employer] Other pH (U) 6.0 [pH] [employer] Other Protein Ql (U) Negative [employer] Other Specific gravity (U) [Rel density] <1.005 [employer] Other Urobilinogen (U) [Mass/Vol] 0.2 mg/dL [employer] Other Urinalysis - AUTOMATED [employer] Other CBC AUTO DIFFon 11-01-2022 BASO # 0.1 103/ul Normal 0.0-0.1 [facility] Comment on above: Performed By: #### D ATCBC #### [facility] [address] [place] [address] Dr. Camilo Reese Basophils/100 WBC (Bld) 1.3 % Normal 0.2-2.0 [facility] Comment on above: Performed By: #### D ATCBC #### [facility] [address] [place] [address] Dr. Camilo Reese EO # 0.2 103/ul Normal 0.0-0.7 [facility] Comment on above: Performed By: #### D ATCBC #### [facility] [address] [address] [address] Camilo Reese Eosinophils/100 WBC (Bld) 5.2 % Normal 0.9-7.0 [facility] Comment on above: Performed By: #### D ATCBC #### [facility] [address] [place] [address] Dr. Camilo Reese Erythrocyte distribution width (RBC) [Ratio] 14.6 % Normal 11.0-15.0 [facility] Comment on above: Performed By: #### D ATCBC #### [facility] [address] [place] [address] Dr. Camilo Reese Hematocrit (Bld) [Volume fraction] 42.9 % Normal 36.0-48.0 [facility] Comment on above: Performed By: #### D ATCBC #### [facility] [address] [address] [address] Camilo Reese Hemoglobin (Bld) [Mass/Vol] 13.9 g/dL Normal 12.0-16.0 [facility] Comment on above: Performed By: #### D ATCBC #### [facility] [address] [address] [address] Camilo Reese IG # 0.01 10e3/ul Normal 0.00-0.03 [facility] Comment on above: Performed By: #### D ATCBC #### [facility] [address] [address] [address] Camilo Reese IG % 0.3 % Normal 0.0-0.5 [facility] Comment on above: Performed By: #### D ATCBC #### [facility] [address] [address] [address] Camilo Reese LYMPH # 1.3 103/ul Normal 1.2-3.8 [facility] Comment on above: Performed By: #### D ATCBC #### [facility] [address] [place] [address] Dr. Camilo Reese Lymphocytes/100 WBC (Bld) 33.6 % Normal 20.5-60.0 [facility] Comment on above: Performed By: #### D ATCBC #### [facility] [address] [address] [address] Camilo Reese MCH (RBC) [Entitic mass] 28.7 pg Normal 26.7-34.0 [facility] Comment on above: Performed By: #### D ATCBC #### [facility] [address] [address] [address] Camilo Reese MCHC (RBC) [Mass/Vol] 32.4 g/dL Normal 29.9-35.2 [facility] Comment on above: Performed By: #### D ATCBC #### [facility] [address] [address] [address] Camilo Reese MCV (RBC) [Entitic vol] 88.5 fL Normal 81.0-99.0 [facility] Comment on above: Performed By: #### D ATCBC #### [facility] [address] [place] [address] Dr. Camilo Reese MONO # 0.6 103/ul Normal 0.3-0.8 [facility] Comment on above: Performed By: #### D ATCBC #### [facility] [address] [place] [address] Dr. Camilo Reese Monocytes/100 WBC (Bld) 15.0 % Critically high 1.7-12.0 [facility] Comment on above: Performed By: #### D ATCBC #### [facility] [address] [place] [address] Dr. Camilo Reese NEUT # 1.7 103/ul Normal 1.4-6.5 [facility] Comment on above: Performed By: #### D ATCBC #### [facility] [address] [place] [address] Dr. Camilo Reese Neutrophils/100 WBC (Bld) 44.6 % Normal 43.0-75.0 [facility] Comment on above: Performed By: #### D ATCBC #### [facility] [address] [place] [address] Dr. Camilo Reese Platelet mean volume (Bld) [Entitic vol] 11.5 fL Normal 9.5-13.5 [facility] Comment on above: Performed By: #### D ATCBC #### [facility] [address] [place] [address] Dr. Camilo Reese PLT 240 103/ul Normal 150-450 [facility] Comment on above: Performed By: #### D ATCBC #### [facility] [address] [place] [address] Dr. Camilo Reese RBC 4.85 106/ul Normal 4.20-5.40 [facility] Comment on above: Performed By: #### D ATCBC #### [facility] [address] [place] [address] Dr. Camilo Reese WBC 3.8 103/ul Critically low 4.0-11.0 [facility] Comment on above: Performed By: #### D ATCBC #### [facility] [address] [address] [address] Camilo Reese DAMARIS- BMP WITH LIPIDon 2022 Anion gap [Moles/Vol] 10.7 mmol/L Normal [facility] Comment on above: Performed By: #### D ATBMP #### [facility] [address] [address] [address] Camilo Reese Calcium [Mass/Vol] 9.1 mg/dL Normal 8.5-10.[address] [facility] Comment on above: Performed By: #### D ATBMP #### [facility] [address] [address] [address] Camilo Reese Chloride [Moles/Vol] 103 mmol/L Normal 98-107 [facility] Comment on above: Performed By: #### D ATBMP #### [facility] [address] [address] [address] Camilo Reese Cholesterol [Mass/Vol] 216 mg/dL Critically high <=200 [facility] Comment on above: Performed By: #### D ATBMP #### [facility] [address] [address] [address] Camilo Reese Cholesterol in HDL [Mass/Vol] 111 mg/dL Critically high 40-60 [facility] Comment on above: Performed By: #### D ATBMP #### [facility] [address] [address] [address] Camilo Reese Cholesterol in LDL [Mass/Vol] 91.0 mg/dL Normal [facility] Comment on above: Performed By: #### D ATBMP #### [facility] [address] [address] [address] Camilo Reese CO2 [Moles/Vol] 31.4 mmol/L Normal 21.0-32.0 [facility] Comment on above: Performed By: #### D ATBMP #### [facility] [address] [address] [address] Camilo Reese Creatinine [Mass/Vol] 0.72 mg/dL Normal 0.55-1.02 [facility] Comment on above: Performed By: #### D ATBMP #### [facility] [address] [address] [address] Camilo Reese EGFR-AF INDONESIAN >60 Normal >=60 [facility] Comment on above: Performed By: #### D ATBMP #### [facility] [address] [address] [address] Camilo Reese EGFR-NON AF INDONESIAN >60 Normal >=60 [facility] Comment on above: Performed By: #### D ATBMP #### [facility] [address] [address] [address] Camilo Reese Glucose [Mass/Vol] 89 mg/dL Normal 74-106 [facility] Comment on above: Performed By: #### D ATBMP #### [facility] [address] [address] [address] aCmilo Reese HDL NORMAL > or = 60 mg/dl - LO W CARDIOVASCULAR RISK <40 mg/dl - HIGH CARDIOVASCULAR RISK Normal [facility] Comment on above: Performed By: #### D ATBMP #### [facility] [address] [address] [address] Camilo Reese LDL CALC NORMAL SEE BELOW Normal [facility] Comment on above: Result Comment: <100 mg/dl OPTIMAL 100 - 129 mg/dl NEAR OR ABOVE OPTIMAL 130 - 159 mg/dl BORDERLINE HIGH 160 - 189 mg/dl HIGH >190 mg/dl VERY HIGH Performed By: #### D ATBMP #### [facility] [address] [address] [address] Camilo Reese Potassium [Moles/Vol] 4.1 mmol/L Normal 3.5-5.1 [facility] Comment on above: Performed By: #### D ATBMP #### [facility] [address] [address] [address] Camilo Reese Sodium [Moles/Vol] 141 mmol/L Normal 136-145 [facility] Comment on above: Performed By: #### D ATBMP #### [facility] [address] [address] [address] Camilo Reese Triglyceride [Mass/Vol] 70 mg/dL Normal <=150 [facility] Comment on above: Performed By: #### D ATBMP #### [facility] [address] [address] [address] Camilo Reese Urea nitrogen [Mass/Vol] 17.0 mg/dL Normal 7.0-18.0 [facility] Comment on above: Performed By: #### D ATBMP #### [facility] [address] [address] [address] Camilo Reese Urea nitrogen/Creatinine [Mass ratio] 23.6 mg/mg Normal [facility] Comment on above: Performed By: #### D ATBMP #### [facility] [address] [address] [address] Camilo Reese VLDL CALC 14.0 mg/dL Normal [facility] Comment on above: Performed By: #### D ATBMP #### [facility] [address] [address] [address] Camilo Reese MG MAMM SCREEN 3D ALYSON CADon 08-13-2022 MG MAMM SCREEN 3D ALYSON CAD Patient: KAREN ZAIDI Exam Date: 08/13/2022 : 1955 Gender:F Ordering : DR AMMON LUCAS M.D. Admission #: [id number] Family : Order #: [id number] CLICK HERE TO VIEW EXAM RADIOLOGY REPORT PROCEDURE: MAMMOGRAM SCREENING 3D BILATERAL CAD COMPARISON: MG MAMM SCREEN ALYSON W CAD, 08/10/2018. INDICATIONS: Screening mammography Calculator Name NCI Breast Cancer Risk Assessment Tool 5 Year Breast Cancer Risk 1.40% Lifetime Breast Cancer Risk 5.80% Personal Breast Cancer No Personal Ovarian Cancer No Treatments None Family Cancers None LOCATION: [facility] BREAST COMPOSITION: Scattered areas fibroglandular [...] MD on 08/13/2022 at 15:43 Normal [facility] SARS-CoV-2 (COVID-19) RNA NA A+probe Ql (Resp)on 07-28-2022 SARS-CoV-2 (COVID-19) RNA CHLOE+probe Ql (Unsp spec) Negative [employer] Other CBC Without Differentialon 0 02-23-2022 Erythrocyte distribution width (RBC) [Ratio] 14.6 % Normal 11.9-15.3 [facility] Comment on above: Performed By: #### O UTREACH CMP, OUTREACH LIPID, CBCNOOUTREACH #### [address] Hematocrit (Bld) [Volume fraction] 43.4 % Normal 34.0-46.4 [facility] Comment on above: Performed By: #### O UTREACH CMP, OUTREACH LIPID, CBCNOOUTREACH #### [address] Hemoglobin (Bld) [Mass/Vol] 14.3 g/dL Normal 11.8-15.4 [facility] Comment on above: Performed By: #### O UTREACH CMP, OUTREACH LIPID, CBCNOOUTREACH #### [facility] [address] [place], [place] [id number] [place] MCH (RBC) [Entitic mass] 29.4 pg Normal 24.7-34.3 [facility] Comment on above: Performed By: #### O UTREACH CMP, OUTREACH LIPID, CBCNOOUTREACH #### [place] [id number] [place] MCV (RBC) [Entitic vol] 89.2 fL Normal 80-100 [facility] Comment on above: Performed By: #### O UTREACH CMP, OUTREACH LIPID, CBCNOOUTREACH #### [address] [place] [id number] [place] Mean Corpuscular HGB Conc 33.0 g/dL Normal 32.0-35.0 [facility] Comment on above: Performed By: #### O UTREACH CMP, OUTREACH LIPID, CBCNOOUTREACH #### [address] Platelet mean volume (Bld) [Entitic vol] 10.2 fL Normal 6.3-10.7 [facility] Comment on above: Result Comment: PERF ORMED BY: [place] [address] PATHOLOGIST PAINTER ORDNANCE BRAD GARCÍA M.D. Performed By: #### O UTREACH CMP, OUTREACH LIPID, CBCNOOUTREACH #### [address] Platelets (Bld) [#/Vol] 220 10*3/uL Normal 150-450 [facility] Comment on above: Performed By: #### O UTREACH CMP, OUTREACH LIPID, CBCNOOUTREACH #### [address] RBC (Bld) [#/Vol] 4.86 10*6/uL Normal 3.60-5.00 [facility] Comment on above: Performed By: #### O UTREACH CMP, OUTREACH LIPID, CBCNOOUTREACH #### [address] WBC (Bld) [#/Vol] 3.6 10*3/uL Low 3.8-11.6 [facility] Comment on above: Performed By: #### O UTREACH CMP, OUTREACH LIPID, CBCNOOUTREACH #### [address] CMP Outreachon 02-23-2022 Albumin [Mass/Vol] 4.0 g/dL Normal 3.2-5.5 [facility] Comment on above: Performed By: #### O UTREACH CMP, OUTREACH LIPID, CBCNOOUTREACH #### [address] ALP [Catalytic activity/Vol] 59 U/L Normal 32-92 [facility] Comment on above: Performed By: #### O UTREACH CMP, OUTREACH LIPID, CBCNOOUTREACH #### [facility] [address] [id number] [place] ALT [Catalytic activity/Vol] 14 U/L Normal 10-60 [facility] Comment on above: Performed By: #### O UTREACH CMP, OUTREACH LIPID, CBCNOOUTREACH #### [facility] [address] [place] [address] [place] AST [Catalytic activity/Vol] 22 U/L Normal 10-42 [facility] Comment on above: Performed By: #### O UTREACH CMP, OUTREACH LIPID, CBCNOOUTREACH #### [facility] [address] [place] [address] [place] Bilirubin [Mass/Vol] 1.1 mg/dL Normal 0.3-1.2 [facility] Comment on above: Performed By: #### O UTREACH CMP, OUTREACH LIPID, CBCNOOUTREACH #### [facility] [address] [place] [address] [place] Calcium [Mass/Vol] 9.7 mg/dL Normal 8.2-10.2 [facility] Comment on above: Performed By: #### O UTREACH CMP, OUTREACH LIPID, CBCNOOUTREACH #### [facility] [address] [place] [address] [place] Chloride [Moles/Vol] 101 mmol/L Normal 95-114 [facility] Comment on above: Performed By: #### O UTREACH CMP, OUTREACH LIPID, CBCNOOUTREACH #### [facility] [address] [place], [place] [id number] [place] CO2 [Moles/Vol] 28.8 mmol/L Normal 22.0-30.0 [facility] Comment on above: Performed By: #### O UTREACH CMP, OUTREACH LIPID, CBCNOOUTREACH #### [facility] [address] [place] [address] [place] Creatinine [Mass/Vol] 0.75 mg/dL Normal 0.44-1.03 [facility] Comment on above: Performed By: #### O UTREACH CMP, OUTREACH LIPID, CBCNOOUTREACH #### [facility] [address] Estimated GFR ( Annie > 60 Normal [facility] Comment on above: Result Comment: GFR estimated reference range: According to KDOQI guidelines, <60 ml/min/1.73m2 is sufficient to diagnose a patient with chronic kidney disease. Performed By: #### O UTREACH CMP, OUTREACH LIPID, CBCNOOUTREACH #### [facility] [address] [place] [address] [place] Estimated GFR (Non- Am > 60 Normal [facility] Comment on above: Performed By: #### O UTREACH CMP, OUTREACH LIPID, CBCNOOUTREACH #### [address] Glucose [Mass/Vol] 85 mg/dL Normal 70-100 [facility] Comment on above: Result Comment: [place] Glucose Reference Range is dependent on time and content of last meal. Glucose of more than 200 mg/dL in a nonstressed, ambulatory subject supports the diagnosis of Diabetes Mellitus. ADA recommended reference range Performed By: #### O UTREACH CMP, OUTREACH LIPID, CBCNOOUTREACH #### [place] [address] [place] Potassium [Moles/Vol] 4.4 mmol/L Normal 3.5-5.1 [facility] Comment on above: Performed By: #### O UTREACH CMP, OUTREACH LIPID, CBCNOOUTREACH #### [address] Protein [Mass/Vol] 6.8 g/dL Normal 6.1-7.9 [facility] Comment on above: Performed By: #### O UTREACH CMP, OUTREACH LIPID, CBCNOOUTREACH #### [address] Sodium [Moles/Vol] 141 mmol/L Normal 136-146 [facility] Comment on above: Performed By: #### O UTREACH CMP, OUTREACH LIPID, CBCNOOUTREACH #### [facility] [address] [id number] [place] Urea nitrogen [Mass/Vol] 13 mg/dL Normal 9-23 [facility] Comment on above: Performed By: #### O UTREACH CMP, OUTREACH LIPID, CBCNOOUTREACH #### [facility] [address] [id number] [place] Lipid Profile Outreachon Cholesterol [Mass/Vol] 236 mg/dL High 140-200 [facility] Comment on above: Result Comment: Chol less than 200 mg/dl low risk Chol 201-239 mg/dl borderline risk Chol 240 mg/dl and greater high risk Performed By: #### O UTREACH CMP, OUTREACH LIPID, CBCNOOUTREACH #### [facility] [address] Cholesterol in HDL [Mass/Vol] 93 mg/dL High 35-85 [facility] Comment on above: Result Comment: HDL CHOL ATP-III CLASSIFICATION Cardiovascular Risk HDL > or equal to 60 mg/dL LOW HDL < 40 mg/dL HIGH Performed By: #### O UTREACH CMP, OUTREACH LIPID, CBCNOOUTREACH #### [facility] [address] [place] [address] [place] Cholesterol.total/C holesterol in HDL [Mass ratio] 2.5 {ratio} Normal <5.0 [facility] Comment on above: Result Comment: PERF ORMED BY: [place] [address] PATHOLOGIST PAINTER ORDNANCE BRAD GARCÍA M.D. Performed By: #### O UTREACH CMP, OUTREACH LIPID, CBCNOOUTREACH #### [facility] [address] [place] [id number] [place] LDL Cholesterol,Calcula dawit 130 mg/dL High 0-100 [facility] Comment on above: Result Comment: LDL ATP III CLASSIFICATION LDL less than 100 mg/dL Optimal LDL 100-129 mg/dL Near or above optimal LDL 130-159 mg/dL Borderline high LDL 160-189 mg/dL High LDL greater than 189 mg/dL Very high Performed By: #### O UTREACH CMP, OUTREACH LIPID, CBCNOOUTREACH #### [facility] [address] [id number] [facility] Triglyceride w/Reflex 64 mg/dL Normal 35-149 [facility] Comment on above: Result Comment: TRIG ATP III CLASSIFICATION TRIG less than 150 mg/dL Normal TRIG 150-199 mg/dL Borderline high TRIG 200-500 mg/dL High TRIG greater than 500 mg/dL Very high Standard traceable to the Center for Disease Conrtrol and Prevention (CDC) test method. Performed By: #### O UTREACH CMP, OUTREACH LIPID, CBCNOOUTREACH #### [facility] [address] VLDL CHOLESTEROL 12 mg/dL Normal [facility] Comment on above: Performed By: #### O UTREACH CMP, OUTREACH LIPID, CBCNOOUTREACH #### [facility] [address] [id number] [facility] Main OR Intraoperative Recor don 07-09-2018 Main OR Intraoperative Record IntraOp Document Type FT Summary Primary Physician: Joel Monroe MD Finalized Date/Time: 07/09/18 12:32:26 Pt. Name: KAREN ZAIDI Jose Manuel ToroB./Sex: 1955 Female Med Rec #: [id number] Physician: Joel Monroe MD Financial #: [id number] Pt. Type: A Room/Bed: [place] [address] Admit/Disch: 05/21/18 07:49:00 - 05/21/18 12:55:00 Institution: [...] Role Performed Anesthesiologist of Surgeon - Primary Tube Winder - Primary Record Time In 05/21/18 10:37:00 [...] Pura Gutierrez CST, Giancarlo Villarreal Role Performed Claim Inspector Scrub - Primary Food Expeditor Time In 05/21/18 10:37:00 05/21/18 10:37:00 05/21/18 [...] and tissue Entry 1 Skin Integrity Intact, [place], Warm, and Skin Abnormality No Dry Outcomes [...] Kelly Patient Status Stable Skin. Condition Intact, [place], Warm, and Dry Airway Maintenance Oxygen in [...] safely administered during the perioperative period For [facility] please see scanned medication reconcilliation form for [...] BLANKET MISTRAL AIR Quantity 1 Aid TORSO [[id number]][F] Fluid/[place] [facility] Mistral warming system Setting high Body Site Upper anterior torso Last Modified By: Lauren CARRILLO RN, Kelly 05/21/18 10:54:28 Case Comments Finalized By: Lauren CARRILLO RN, Kelly Document Signatures Signed By: Lauren CARRILLO RN, Kelly 05/21/18 11:09 Lauren CARRILLO RN, Kelly 05/21/18 11:09 Kira Carmona CST 05/22/18 09:27 Lauren CARRILLO RN, Kelly 07/09/18 12:32 Normal [facility] Coding Summary.on 05-25-2018 Coding Summary. CODING DATE: 018 FINAL [facility] STATUS: Home (Routine DC) PAYOR: Commercial Insurance [...] PROC APC STAT DESCRIPTION DOCTOR NAME DATE 73033 [id number] J1 Cystourethroscopy, with Joel Monroe MD 05/21/2018 ureteral catheterization, with or without irrigation, instillation, or ureteropyelography, exclusive of radiologic service; [id number] Anesthesia for 05/21/2018 transurethral procedures (including urethrocystoscopy); not otherwise specified NOTE: The code number assigned matches the documented diagnosis and / or procedure in the patient's chart. However, the narrative phrase printed from the coding software may appear abbreviated, or result in slightly different terminology. Revised Coded By: Lanny Lazcano Revised Date Saved: 05/25/2018 02:20 pm Normal [facility] Operative Reporton 8 Operative Report Date of Surgery: 05/21/2018SURGEON: Joel Monroe M.D.PREOPERATIVE DIAGNOSIS: N13.2 left hydronephrosis with left ureteralcalculusPOSTOPERAT ARASH DIAGNOSIS: N13.2 left hydronephrosis with left ureteralcalculusOPERATION: Cystoscopy, left retrograde pyelogramCOMPLICATIONS: NoneANESTHESIA: General by laryngeal mask airwayANESTHESIOLOGIST: Shira Quiroz Jr., D.O.FINDINGS: No evidence of ureteral stone or obstructionINDICATIONS: Mrs. Zaidi is a 62 year old female who presented to [facility] with ongoing severe left-sided inguinal/vaginal pain. She [...] isplaced per urethra. A well lubricated 22 Finnish cystourethroscope with 30degree lens is then passed into the bladder. Moderately tight through theurethra upon passage. Once into the bladder panendoscopy reveals no tumors,no stones, no diverticula. The orifices are normal x2. Specifically thereis absolutely no left-sided ureteral inflammation. There is no erythema.There is nothing to suggest recent passage of a stone. A left retrogradepyelogram was then performed utilizing a 6 Finnish open-ended ureteralcatheter. The ureter is completely normal [...] six months with Italo.Joel Monroe M.D.lkrDictated: 05/21/2018 #[id number]: 05/22/2018 #[id number]: Steve Tinajero M.D. [facility] Comment on above: Result Comment: Elec tronically Signed By: Joel Monroe MD\.br\Date and Time Signed: 05/22/18 16:45 EDT Inpatient Patient Summaryon 05-21-2018 [facility] InstructionsPERSON INFORMATION Name: KAREN ZAIDI PHYSICIANS Admitting Physician: Joel Monroe MDAttending Physician: Joel Monroe MD PCP: Lewis LUCAS MD Diagnosis: Hydronephrosis with ureteral calculus Comment: PATIENT EDUCATION INFORMATIONInstructions:Me dication Leaflets:Follow up:With: Address: When: [address], [place] [id number] [facility] () In 6 months 11/21/2018 Comments: Please have my office arrange for an abdominal X-ray before your visit (looking for stones in the kidneys) MEDICATION LISTComment: [facility] Main OR PACU I [facility] Main OR PACU I Record PACU Phase I Document Type FT Summary Primary Physician: Joel Monroe MD Finalized Date/Time: 05/21/18 12:01:48 Pt. Name: KAREN ZAIDI /Sex: 1955 Female Med Rec #: [id number] Physician: Joel Monroe MD Financial #: [id number] Pt. Type: A Room/Bed: Admit/Disch: 05/21/18 07:49:37 [...] By: Alisa Grider RN 05/21/18 12:01 Normal [facility] Main OR PACU II [facility]ordon Main OR PACU II Record PACU Phase II Document Type FT Summary Primary Physician: Joel Monroe MD Finalized Date/Time: 05/21/18 13:41:43 Pt. Name: KAREN ZAIDI Jose Manuel Martin/Sex: 1955 Female Med Rec #: [id number] Physician: Joel Monroe MD Financial #: [id number] Pt. Type: A Room/Bed: [place] [address] Admit/Disch: 05/21/18 07:49:37 - Institution: Case Times [...] Signed By: Almita Poe RN 05/21/18 13:41 [facility] Main OR Preoperative Recordo n 05-21-2018 Main OR Preoperative Record PreOp Document Type FT Summary Primary Physician: Jole Monroe MD Finalized Date/Time: 05/21/18 10:37:48 Pt. Name: KAREN ZAIDI /Sex: 1955 Female Med Rec #: [id number] Physician: Joel Monroe MD Financial #: [id number] Pt. Type: A Room/Bed: [place] [address] Admit/Disch: 05/21/18 07:49:37 - Institution: Case Times [...] Velez RN, Lou Ann 05/21/18 10:37 Normal [facility] Patient Education - Texton 0 05-21-2018 Patient Education - Text Normal [facility] Progress Note-Physicianon Protein mass conc Patient: SHAYNA ZAIDI Age: 62 years Sex: Female : 1955 Associated Diagnoses: None Author: Kian Quiroz JR, DO Postoperative Information Post Operative Note: Post Anesthesia Care Unit. Anesthetic utilized: General, Monitored anesthesia care. Health Status Allergies: Allergic Reactions (Selected)SevereAmoxicilli n- Rash.Bee Stings- Redness.Clindamycin- Rash.Doxycycline- Stomach upset.Penicillins- Rash. Current medications: (Selected) Inpatient WduncuexemsZeedrutW6RD 1000 mL Soln-IV 1,000 mL: 1,000 mL, [...] stone on left side / SNOMED CT 680479955 / ConfirmedArthritis / SNOMED CT 8218007 / Confirmed Physical Examination Intake and Output [...] 6 . Respiratory: Adequate air exchange with presybeterian of preoperative function.. Cardiovascular: Cardiovascular function is stable and has returned to preoperative levels.. Neurologic: Pt has returned to preoperative baseline.. Review / Management Condition: Stable. Assessment Anesthetic outcome No anesthetic complications noted. Plan Transfer/ Discharge: Patient can be discharged from PACU when criteria met. Condition good. Normal [facility] Comment on above: Result Comment: Elec tronically [...] Stomach upset.Penicillins- Rash. Current medications: (Selected) Inpatient YyhgohdpvhtCgtcesuU3DN 1000 mL Soln-IV 1,000 mL: 1,000 mL, [...] stone on left side / SNOMED CT 468521626 / ConfirmedArthritis / SNOMED CT 6556472 / Confirmed Physical Examination Intake and Output [...] 6 . Respiratory: Adequate air exchange with presybeterian of preoperative function.. Cardiovascular: Cardiovascular function is stable and has returned to preoperative levels.. Neurologic: Pt has returned to preoperative baseline.. Review / Management Condition: Stable. Assessment Anesthetic outcome No anesthetic complications noted. Plan Transfer/ Discharge: Patient can be discharged from PACU when criteria met. Condition good. Normal [facility] Protein mass conc Patient: SHAYNA ZAIDI Age: [...] Stomach upsetpenicillins Rash Current medications: (Selected) Inpatient AancbxsqqtvJcmsdmnK0SG 1000 mL Soln-IV 1,000 mL: 1,000 mL, [...] [F] 0.4 mg 0.2 mL, IV Push, h2evopbwsuuycwcew 25 mg/mL Inj [F] 12.5 mg 0.5 mL, IV Push, q2min Problem list: All ProblemsKidney stone on left side / SNOMED CT 135418736 / ConfirmedArthritis / SNOMED CT 2766438 / Confirmed, Active Problems (2)Arthritis Kidney stone on left side Histories Past Medical History: No active or resolved past medical history items have been selected or recorded. Family History: No family history items have been selected or recorded. Procedure history: Cholecystectomy ([id number]).knee arthroscopy for torn meniscus, rt.Tubal ligation (389395547). Social History Social & Psychosocial MkclscIwqsgvh68/07/2018 Risk Assessment: Denies Alcohol UseSubstance Abuse05/19/2018 Risk Assessment: Denies Substance QwyytTvpdxxc35/07/2018 Risk Assessment: Denies Tobacco Use. Physical Examination [...] Results review: No qualifying data available. Plan [place] [employer] Anesthesiologists (ASA) physical status classification: Class II. Anesthetic Preoperative Plan Anesthesia: General. . Anesthetic plan, risks, benefits, and alternatives discussed with the patient and/or family. Pt. and/or family present and agree to proceed as planned.. Discussed the importance of abstaining from tobacco products, and offered counseling if desired. Normal [facility] Comment on above: Result Comment: Elec tronically [...] Signed by: Bryanna Morris MD Transcribed by: DOORN Technologist: FRANCISCA Normal [facility] XR Urography Retrograde Left on 05-21-2018 XR [...] in mGy = 3.1Fluoro Time: 54 seconds [facility] Coding Summary.on 05-20-2018 Coding Summary. CODING DATE: 018 [facility] STATUS: Home (Routine DC) PAYOR: Commercial [...] Eng Date Saved: 05/20/2018 01:06 pm Normal [facility] PT & PTTon 05-19-2018 aPTT Coag time (Bld) 30.5 second(s) Normal 25.1-36.5 [facility] Comment on above: Result Comment: Hepa rin therapeutic range (represented by Anti-Factor Xa activity of 0.2 - 0.4 U/mL) corresponds to PTT of 53.9 - 87.4 sec. Performed By: #### 1 [id number] ####[facility] [address] [place] [address] INR Coag RelTime (PPP) 1.0 {INR} Invalid Interpretation Code [facility] Comment on above: Result Comment: INR results are specifically intended to assess patients stabilized on long-term Anticoagulation therapy suggested INR?s ?Less Intensive Anticoagulation? 2.0 ? 3.0Conventional Range 3.0 ? 4.5 Performed By: #### 1 [id number] ####[facility] [address] [place] [address] Prothrombin time (PT) Coag time (PPP) 10.9 second(s) Normal 10.2-12.9 [facility] Comment on above: Performed By: #### 1 [id number] ####[id number] [place] [address] XR Chest 2 Viewson 8 XR Chest [...] MD Transcribed by: akbar Technologist: SHARRON Normal [facility] Vital Signs Date Time Vital Sign Value Performing Clinician Facility 06-03-2025 10:59-0400 Body height 170.18 cm Ammon Lucas MD Work Phone: [facility] 06-03-2025 10:59-0400 Body mass index (BMI) [Ratio] 22.5 kg/m2 Ammon Lucas MD Work Phone: [facility] 06-03-2025 10:59-0400 Body weight 65.31 kg Ammon Lucas MD Work Phone: [facility] 06-03-2025 10:59-0400 Diastolic blood pressure 73 mm[Hg] Ammon Lucas MD Work Phone: [facility] 06-03-2025 10:59-0400 Heart rate 63 /min Ammon Lucas MD Work Phone: [facility] 06-03-2025 10:59-0400 Systolic blood pressure 117 mm[Hg] Ammon Lucas MD Work Phone: [facility] 06-02-2025 08:52-0400 Body height 170.2 cm Dania Briana DO Work Phone: [facility] 06-02-2025 08:52-0400 Body mass index (BMI) [Ratio] 21.93 kg/m2 Dania Briana DO Work Phone: [facility] 06-02-2025 08:52-0400 Body weight 63.5 kg Dania Briana DO Work Phone: [facility] 06-02-2025 08:52-0400 Diastolic blood pressure 92 mm[Hg] Dania Briana DO Work Phone: [facility] 06-02-2025 08:52-0400 Heart rate 65 /min Dania Briana DO Work Phone: [facility] 06-02-2025 08:52-0400 SaO2% (BldA) [Mass fraction] 99 % Dania Briana DO Work Phone: [facility] 06-02-2025 08:52-0400 Systolic blood pressure 157 mm[Hg] Daniaibrahima Steven DO Work Phone: [facility] 03-08-2025 15:43-0400 Diastolic blood pressure 66 mm[Hg] Augustina Vargas MD Work Phone: [facility] 03-08-2025 15:43-0400 Systolic blood pressure 120 mm[Hg] Augustina Vargas MD Work Phone: [facility] 02-08-2025 11:22-0400 Body mass index (BMI) [Ratio] 21.79 kg/m2 Gi Siddiqi MD Work Phone: [facility] 02-08-2025 11:22-0400 Body weight 63.1 kg Gi Siddiqi MD Work Phone: [facility] 02-08-2025 11:22-0400 Diastolic blood pressure 83 mm[Hg] Gi Siddiqi MD Work Phone: [facility] 02-08-2025 11:22-0400 Heart rate 65 /min Gi Siddiqi MD Work Phone: [facility] 02-08-2025 11:22-0400 Systolic blood pressure 146 mm[Hg] Gi Siddiqi MD Work Phone: [facility] 12-08-2024 16:04-0500 Body mass index (BMI) [Ratio] 21.61 kg/m2 Augustina Vargas MD Work Phone: [facility] 12-08-2024 16:04-0500 Body weight 62.6 kg Augustina Vargas MD Work Phone: [facility] 12-08-2024 16:04-0500 Diastolic blood pressure 74 mm[Hg] Augustina Vargas MD Work Phone: [facility] 12-08-2024 16:04-0500 Systolic blood pressure 140 mm[Hg] Augustina Vargas MD Work Phone: [facility] 12-06-2024 11:04-0500 Body mass index (BMI) [Ratio] 22.15 kg/m2 Keri Topete PA Work Phone: [facility] 12-06-2024 11:04-0500 Body weight 64.14 kg Keri Ledesmaey PA Work Phone: [facility] 12-06-2024 11:04-0500 Diastolic blood pressure 72 mm[Hg] Keri [place] PA Work Phone: [facility] 12-06-2024 11:04-0500 Systolic blood pressure 130 mm[Hg] Keri Topete PA Work Phone: [facility] 07-26-2024 10:19-0400 Body height 170.2 cm Sarah Godwin MD Work Phone: [facility] 07-26-2024 10:19-0400 Body mass index (BMI) [Ratio] 21.64 kg/m2 Sarah Godwin MD Work Phone: [facility] 07-26-2024 10:19-0400 Body temperature 98.29 [degF] Sarah Godwin MD Work Phone: [facility] 07-26-2024 10:19-0400 Body weight 62.69 kg Sarah Godwin MD Work Phone: [facility] 07-06-2024 10:26-0400 Body mass index (BMI) [Ratio] 21.27 kg/m2 Augustina Vargas MD Work Phone: [facility] 07-06-2024 10:26-0400 Body weight 61.6 kg Augustina Vargas MD Work Phone: [facility] 07-06-2024 10:26-0400 Diastolic blood pressure 70 mm[Hg] Augustina Vargas MD Work Phone: [facility] 07-06-2024 10:26-0400 Systolic blood pressure 132 mm[Hg] Augustina Vargas MD Work Phone: [facility] 08-22-2024 08:47-0400 Body height 170.2 cm Dania Briana DO Work Phone: [facility] 06-03-2024 08:47-0400 Body mass index (BMI) [Ratio] 21.77 kg/m2 Dania Briana DO Work Phone: [facility] 06-03-2024 08:47-0400 Body weight 63.05 kg Dania Briana DO Work Phone: [facility] 06-03-2024 08:47-0400 Diastolic blood pressure 57 mm[Hg] Dania Briana DO Work Phone: [facility] 06-03-2024 08:47-0400 Heart rate 66 /min Dania Briana DO Work Phone: [facility] 06-03-2024 08:47-0400 SaO2% (BldA) [Mass fraction] 99 % Dania Briana DO Work Phone: [facility] 06-03-2024 08:47-0400 Systolic blood pressure 117 mm[Hg] Dania Briana DO Work Phone: [facility] 05-27-2024 08:49-0400 Body height 170.2 cm Augustina Vargas MD Work Phone: [facility] 05-27-2024 08:49-0400 Body mass index (BMI) [Ratio] 20.83 kg/m2 Augustina Vargas MD Work Phone: [facility] 05-27-2024 08:49-0400 Body weight 60.33 kg Augustina Vargas MD Work Phone: [facility] 05-27-2024 08:49-0400 Diastolic blood pressure 80 mm[Hg] Augustina Vargas MD Work Phone: [facility] 05-27-2024 08:49-0400 Systolic blood pressure 146 mm[Hg] Augustina Vargas MD Work Phone: [facility] 02-19-2024 12:57-0400 Body height 170.2 cm [facility] Work Phone: [facility] 02-19-2024 12:57-0400 Body mass index (BMI) [Ratio] 20.92 kg/m2 [facility] Work Phone: [facility] 02-19-2024 12:57-0400 Body temperature 97 [degF] [facility] Work Phone: [facility] 02-19-2024 12:57-0400 Body weight 60.6 kg [facility] Work Phone: [facility] 02-19-2024 12:57-0400 Diastolic blood pressure 71 mm[Hg] [facility] Work Phone: [facility] 02-19-2024 12:57-0400 Heart rate 60 /min [facility] Work Phone: [facility] 02-19-2024 12:57-0400 SaO2% (BldA) [Mass fraction] 100 % [facility] Work Phone: [facility] 02-19-2024 12:57-0400 Systolic blood pressure 137 mm[Hg] [facility] Work Phone: [facility] 02-10-2024 09:53-0400 Body height 170.2 cm Sarah Godwin MD Work Phone: [facility] 02-10-2024 09:53-0400 Body mass index (BMI) [Ratio] 20.86 kg/m2 Sarah Godwin MD Work Phone: [facility] 02-10-2024 09:53-0400 Body temperature 98.71 [degF] Sarah Godwin MD Work Phone: [facility] 02-10-2024 09:53-0400 Body weight 60.42 kg Sarah Godwin MD Work Phone: [facility] 12-18-2023 11:37-0500 Body height 168.9 cm Rina Fox MD Work Phone: [facility] 12-18-2023 11:37-0500 Body temperature 98.29 [degF] Rina Fox MD Work Phone: [facility] 12-18-2023 11:37-0500 Body weight 58.42 kg Rina Fox MD Work Phone: [facility] 12-18-2023 11:37-0500 Diastolic blood pressure 87 mm[Hg] Rina Fox MD Work Phone: [facility] 12-18-2023 11:37-0500 Heart rate 64 /min Rina Fox MD Work Phone: [facility] 12-18-2023 11:37-0500 Respiratory rate 14 /min Rina Fox MD Work Phone: [facility] 12-18-2023 11:37-0500 SaO2% (BldA) [Mass fraction] 100 % Rina Fox MD Work Phone: [facility] 12-18-2023 11:37-0500 Systolic blood pressure 131 mm[Hg] Rina Fox MD Work Phone: [facility] 12-02-2023 12:23-0500 Body height 170.2 cm Matthew Iwema PA-C Work Phone: [facility] 12-02-2023 12:23-0500 Body mass index (BMI) [Ratio] 20.45 kg/m2 Matthew Iwema PA-C Work Phone: [facility] 12-02-2023 12:23-0500 Body temperature 98.01 [degF] Matthew Damonema PA-C Work Phone: [facility] 12-02-2023 12:23-0500 Body weight 59.24 kg Matthew Damonema PA-C Work Phone: [facility] 11-12-2023 14:20-0500 Body height 170.2 cm [facility] 11-12-2023 14:20-0500 Body mass index (BMI) [Ratio] 20.92 kg/m2 [facility] 11-12-2023 14:20-0500 Body temperature 98.2 [degF] [facility] 11-12-2023 14:20-0500 Body weight 60.6 kg [facility] 11-12-2023 14:20-0500 Diastolic blood pressure 81 mm[Hg] [facility] 11-12-2023 14:20-0500 Heart rate 67 /min [facility] 11-12-2023 14:20-0500 Respiratory rate 18 /min [facility] 11-12-2023 14:20-0500 SaO2% (BldA) [Mass fraction] 98 % [facility] 11-12-2023 14:20-0500 Systolic blood pressure 127 mm[Hg] [facility] 09-30-2023 15:43-0500 Body height 170.2 cm Sarah Godwni MD Work Phone: [facility] 09-30-2023 15:43-0500 Body mass index (BMI) [Ratio] 20.05 kg/m2 Sarah Godwin MD Work Phone: [facility] 09-30-2023 15:43-0500 Body temperature 98.71 [degF] Sarah Godwin MD Work Phone: [facility] 09-30-2023 15:43-0500 Body weight 58.06 kg Sarah Godwin MD Work Phone: [facility] 09-01-2023 10:45-0500 Body height 167.64 cm Ammon Lucas Other [employer] Other 09-01-2023 10:45-0500 Body mass index (BMI) [Ratio] 19.69 kg/m2 Ammon Lucas Other [employer] Other 09-01-2023 10:45-0500 Body weight 55.34 kg Ammon Lucas Other [employer] Other 09-01-2023 10:45-0500 Diastolic blood pressure 76 mm[Hg] Ammon Lucas Other [employer] Other 09-01-2023 10:45-0500 Systolic blood pressure 138 mm[Hg] Ammon Lucas Other [employer] Other 07-29-2023 10:00-0400 Body height 167.64 cm Ammon Lucas Other [employer] Other 07-29-2023 10:00-0400 Body mass index (BMI) [Ratio] 19.72 kg/m2 Ammon Lucas Other [employer] Other 07-29-2023 10:00-0400 Body weight 55.43 kg Ammon Lucas Other [employer] Other 07-29-2023 10:00-0400 Diastolic blood pressure 76 mm[Hg] Ammon Lucas Other [employer] Other 07-29-2023 10:00-0400 Systolic blood pressure 123 mm[Hg] Ammon Lucas Other [employer] Other 07-02-2023 10:00-0400 Body height 167.64 cm Ammon Lucas Other [employer] Other 07-02-2023 10:00-0400 Body mass index (BMI) [Ratio] 20.01 kg/m2 Ammon Lucas Other [employer] Other 07-02-2023 10:00-0400 Body weight 56.25 kg Ammon Lucas Other [employer] Other 07-02-2023 10:00-0400 Diastolic blood pressure 88 mm[Hg] Ammon Lucas Other [employer] Other 07-02-2023 10:00-0400 Systolic blood pressure 145 mm[Hg] Ammon Lucas Other [employer] Other 06-06-2023 13:45-0400 Body height 167.64 cm Ammon Lucas Other [employer] Other 06-06-2023 13:45-0400 Body mass index (BMI) [Ratio] 20.66 kg/m2 Ammon Lucas Other [employer] Other 06-06-2023 13:45-0400 Body weight 58.06 kg Ammon Lucas Other [employer] Other 06-06-2023 13:45-0400 Diastolic blood pressure 70 mm[Hg] Ammon Lucas Other [employer] Other 06-06-2023 13:45-0400 SaO2% (BldA) [Mass fraction] 99 % Ammon Lucas Other [employer] Other 06-06-2023 13:45-0400 Systolic blood pressure 112 mm[Hg] Ammon Lucas Other [employer] Other 05-29-2023 09:50-0400 Body height 167.64 cm Ayaka Joyner Other [employer] Other 05-29-2023 09:50-0400 Body mass index (BMI) [Ratio] 20.43 kg/m2 Ayaka Joyner Other [employer] Other 05-29-2023 09:50-0400 Body temperature 98.3 [degF] Ayaka Joyner Other [employer] Other 05-29-2023 09:50-0400 Body weight 57.43 kg Ayaka Joyner Other [employer] Other 05-29-2023 09:50-0400 Diastolic blood pressure 88 mm[Hg] Ayaka Joyner Other [employer] Other 05-29-2023 09:50-0400 Respiratory rate 18 /min Ayaka Joyner Other [employer] Other 05-29-2023 09:50-0400 SaO2% (BldA) [Mass fraction] 96 % Ayaka Joyner Other [employer] Other 05-29-2023 09:50-0400 Systolic blood pressure 144 mm[Hg] Ayaka Joyner Other [employer] Other 02-11-2023 14:45-0400 Body height 167.64 cm Ammon Lucas Other [employer] Other 02-11-2023 14:45-0400 Body mass index (BMI) [Ratio] 22.76 kg/m2 Ammon Lucas Other [employer] Other 02-11-2023 14:45-0400 Body temperature 97.8 [degF] Ammon Lucas Other [employer] Other 02-11-2023 14:45-0400 Body weight 63.96 kg Ammon Lucas Other [employer] Other 02-11-2023 14:45-0400 Diastolic blood pressure 80 mm[Hg] Ammon Lucas Other [employer] Other 02-11-2023 14:45-0400 SaO2% (BldA) [Mass fraction] 93 % Ammon Lucas Other [employer] Other 02-11-2023 14:45-0400 Systolic blood pressure 148 mm[Hg] Ammon Lucas Other [employer] Other 02-11-2023 11:15-0400 Body height 168.91 cm Ayaka Joyner Other [employer] Other 02-11-2023 11:15-0400 Body mass index (BMI) [Ratio] 21.94 kg/m2 Ayaka Joyner Other [employer] Other 02-11-2023 11:15-0400 Body temperature 98.7 [degF] Ayaka Joyner Other [employer] Other 02-11-2023 11:15-0400 Body weight 62.6 kg Ayaka Joyner Other [employer] Other 02-11-2023 11:15-0400 Diastolic blood pressure 83 mm[Hg] Ayaka Joyner Other [employer] Other 02-11-2023 11:15-0400 Respiratory rate 18 /min Ayaka Joyner Other [employer] Other 02-11-2023 11:15-0400 SaO2% (BldA) [Mass fraction] 99 % Ayaka Joyner Other [employer] Other 02-11-2023 11:15-0400 Systolic blood pressure 152 mm[Hg] Ayaka Joyner Other [employer] Other 11-22-2022 13:35-0500 Body height 168.91 cm Ayaka Joyner Other [employer] Other 11-22-2022 13:35-0500 Body mass index (BMI) [Ratio] 22.1 kg/m2 Ayaka Joyner Other [employer] Other 11-22-2022 13:35-0500 Body temperature 98 [degF] Ayaka Joyner Other [employer] Other 11-22-2022 13:35-0500 Body weight 63.05 kg Ayaka Joyner Other [employer] Other 11-22-2022 13:35-0500 Respiratory rate 18 /min Ayaka Joyner Other [employer] Other 11-22-2022 13:35-0500 SaO2% (BldA) [Mass fraction] 98 % Ayaka Joyner Other [employer] Other 10-31-2022 15:30-0500 Body height 168.91 cm Ammon Lucas Other [employer] Other 10-31-2022 15:30-0500 Body mass index (BMI) [Ratio] 22.57 kg/m2 Ammon Lucas Other [employer] Other 10-31-2022 15:30-0500 Body weight 64.41 kg Ammon Lucas Other [employer] Other 10-31-2022 15:30-0500 Diastolic blood pressure 72 mm[Hg] Ammon Lucas Other [employer] Other 10-31-2022 15:30-0500 SaO2% (BldA) [Mass fraction] 97 % Ammon Lucas Other [employer] Other 10-31-2022 15:30-0500 Systolic blood pressure 128 mm[Hg] Ammon Lucas Other [employer] Other 07-28-2022 12:55-0400 Body height 170.18 cm Ayaka Joyner Other [employer] Other 07-28-2022 12:55-0400 Body mass index (BMI) [Ratio] 22.65 kg/m2 Ayaka Joyner Other [employer] Other 07-28-2022 12:55-0400 Body temperature 98.5 [degF] Ayaka Joyner Other [employer] Other 07-28-2022 12:55-0400 Body weight 65.59 kg Ayaka Joyner Other [employer] Other 07-28-2022 12:55-0400 Respiratory rate 18 /min Ayaka Joyner Other [employer] Other 07-28-2022 12:55-0400 SaO2% (BldA) [Mass fraction] 99 % Ayaka Joyner Other [employer] Other 09-14-2021 19:10-0500 Body height 170.18 cm Manuela Aly Other [employer] Other 09-14-2021 19:10-0500 Body mass index (BMI) [Ratio] 21.92 kg/m2 Manuela Aly Other [employer] Other 09-14-2021 19:10-0500 Body temperature 97.7 [degF] Manuela Sheeba Other [employer] Other 09-14-2021 19:10-0500 Body weight 63.5 kg Manuela Hseeba Other [employer] Other 09-14-2021 19:10-0500 Respiratory rate 18 /min Manuela Sheeba Other [employer] Other 09-14-2021 19:10-0500 SaO2% (BldA) [Mass fraction] 99 % Manuela Sheeba Other [employer] Other 07-29-2021 12:25-0400 Body height 170.18 cm Manuela Sheeba Other [employer] Other 07-29-2021 12:25-0400 Body mass index (BMI) [Ratio] 21.92 kg/m2 Manuela Sheeba Other [employer] Other 07-29-2021 12:25-0400 Body temperature 97.8 [degF] Manuela Sheeba Other [employer] Other 07-29-2021 12:25-0400 Body weight 63.5 kg Manuela Sheeba Other [employer] Other 07-29-2021 12:25-0400 Diastolic blood pressure 80 mm[Hg] Manuela Sheeba Other [employer] Other 07-29-2021 12:25-0400 Respiratory rate 18 /min Manuela Sheeba Other [employer] Other 07-29-2021 12:25-0400 SaO2% (BldA) [Mass fraction] 99 % Manuela Aly Other [employer] Other 07-29-2021 12:25-0400 Systolic blood pressure 145 mm[Hg] Manuela Aly Other [employer] Other Encounters Encounter Date Encounter Type Care Provider Facility Start: 06-03-2025 End: 06-03-2025 ambulatory Ammon Lucas MD Work Phone: [facility] Work Phone: Start: 06-03-2025 End: 06-03-2025 Patient encounter procedure Ammon Lucas MD -[facility] Work Phone: Start: 06-02-2025 End: 06-02-2025 Bamboo [...] Dx) Start: 05-04-2025 [facility] Start: 05-04-2025 End: 05-04-2025 ambulatory YUERONG MICHELLE Facility:[facility] Start: 04-25-2025 End: 04-25-2025 ambulatory DANIA Jose Manuel [facility] Start: 03-31-2025 End: 03-31-2025 ambulatory [facility]USTINA [facility] Start: 03-31-2025 End: 03-31-2025 Subsequent hospital visit by physician Angelina Lantigua PTA [facility] Physical Therapy Comment on above: Arrived Start: 03-28-2025 End: 03-28-2025 ambulatory AUGUSTINA Kaye [facility] Start: 03-28-2025 End: 03-28-2025 Subsequent hospital visit by physician Cedrick Perera [facility] Physical Therapy Comment on above: Arrived Start: 03-21-2025 End: 03-21-2025 ambulatory AUGUSTINA Kaye [facility] Start: 03-21-2025 End: 03-21-2025 Subsequent hospital visit by [facility] Comment on above: Arrived Start: 03-16-2025 End: 03-16-2025 ambulatory AUGUSTINA Kaye [facility] Start: 03-16-2025 End: 03-16-2025 Subsequent hospital visit by physician Cedrick Perera [facility] Physical Therapy Comment on above: Arrived Start: 03-14-2025 End: 03-14-2025 ambulatory AUGUSTINA Kaye [facility] Start: 03-14-2025 End: 03-14-2025 Subsequent hospital visit by physician Cedrick Perera [facility] Physical Therapy Comment on above: Arrived Start: 03-11-2025 End: 03-11-2025 ambulatory AUGUSTINA Kaye [facility] Start: 03-11-2025 End: 03-11-2025 Subsequent hospital visit by physician Giovanna Wu PTA [facility] Physical Therapy Comment on above: Arrived Start: 03-09-2025 End: 03-09-2025 ambulatory AUGUSTINA Kaye [facility] Start: 03-09-2025 End: 03-09-2025 Subsequent hospital visit by physician Giovanna Wu PTA [facility] Physical Therapy Comment on above: Arrived Start: 03-08-2025 End: 03-08-2025 Patient encounter procedure Augustina Vargas MD Work Phone: Gynecology Comment on above: High-tone pelvic stevan or dysfunction (Primary Dx); Trigger point of abdomen; Myalgia, other site Start: 03-08-2025 End: 03-08-2025 ambulatory AUGUSTINASTAS CHAMBERLAINVANESA Facility:[facility] Start: 03-02-2025 End: 03-02-2025 ambulatory AUGUSTINA VARGAS [facility] Start: 03-02-2025 End: 03-02-2025 Subsequent hospital visit by physician Garrison العراقي PTA [facility] Physical Therapy Comment on above: Arrived Start: 03-01-2025 End: 03-01-2025 ambulatory AUGUSTINA Garvey[facility] Start: 03-01-2025 End: 03-01-2025 Subsequent hospital visit by physician Garrison العراقي PTA [facility] Physical Therapy Comment on above: Arrived Start: 02-25-2025 End: 02-25-2025 ambulatory AUGUSTINA VARGAS [facility] Start: 02-25-2025 End: 02-25-2025 Subsequent hospital visit by physician Trudy Garner PTA [facility] Physical Therapy Comment on above: Arrived Start: 02-21-2025 End: 02-21-2025 ambulatory AUGUSTINA VARGAS [facility] Start: 02-21-2025 End: 02-21-2025 Subsequent hospital visit by physician 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 PTA [facility] Physical Therapy Comment on above: Arrived Start: 02-17-2025 End: 02-17-2025 ambulatory AUGUSTINA VARGAS [facility] Start: 02-17-2025 End: 02-17-2025 Subsequent hospital visit by physician Al Singh PT [facility] Physical Therapy Comment on above: [...] enopausal (Primary Dx); Coronary artery disease involving [place] coronary artery of [place] heart without angina pectoris; Family history of cardiovascular disease; History of fracture of pelvis; Family history of osteoporosis in mother; Early menopause occurring in patient age younger than 45 years; Vitamin D deficiency; Encounter to discuss test results; Encounter for medication review and counseling; Counseling on health promotion and disease prevention Start: 02-08-2025 End: 02-08-2025 ambulatory GI SIDDIQI Facility:[facility] Start: 02-07-2025 End: 02-07-2025 [facility] Start: 02-07-2025 End: 02-07-2025 Subsequent hospital visit by physician Rosemary CHAVARRIA Physical Therapy Comment on above: Arrived Start: 02-07-2025 End: 02-07-2025 ambulatory GI SIDDIQI Facility:[facility] Start: 02-02-2025 End: 02-02-2025 Patient encounter procedure Roxy Medina RT(R) Radiology Comment on above: Primary osteoarthrit is of right knee; Derangement of unsp meniscus due to old tear/inj, right knee Start: 02-02-2025 End: 02-02-2025 ambulatory Roxy Medina RT(R) Radiology Comment on above: Radio Gen RMP Start: 01-31-2025 End: 01-31-2025 ambulatory [facility] Start: 01-31-2025 End: 01-31-2025 Subsequent hospital visit by physician Rosemary CHAVARRIA Physical Therapy Comment on above: Arrived Start: 01-24-2025 End: 01-24-2025 ambulatory [facility] Start: 01-24-2025 End: 01-24-2025 Subsequent [...] Start: 12-08-2024 End: 12-08-2024 ambulatory AUGUSTINA ALICIA Facility:[facility] Start: 12-08-2024 End: 12-08-2024 Patient encounter [...] Start: 12-06-2024 End: 12-06-2024 [facility] Start: 12-06-2024 End: 12-06-2024 Subsequent hospital visit by physician 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 Comment on above: Arrived [...] 11-29-2024 End: 11-29-2024 ambulatory AUGUSTINA [facility] Start: 11-29-2024 End: 11-29-2024 Subsequent hospital visit by physician Rosemary CHAVARRIA Physical Therapy Comment on above: Arrived Start: 11-22-2024 End: 11-22-2024 ambulatory AUGUSTINA [facility] Start: 11-22-2024 End: 11-22-2024 Subsequent hospital visit by physician 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 Comment on above: Arrived Start: 11-17-2024 End: 11-17-2024 E-mail encounter from caregiver Jagruti Salazar PA-C Work Phone: [facility] Start: 11-17-2024 End: 11-17-2024 Follow-up encounter Jagruti Salazar PA-C Work Phone: [facility] Comment on above: actionable finding f ollow up Start: 11-16-2024 End: 11-16-2024 ambulatory AUGUSTINA Von VARGAS [facility] Start: 11-16-2024 End: 11-16-2024 Subsequent hospital visit by physician Yelena Steve PT [facility] Physical Therapy Comment on above: Arrived Start: 11-01-2024 End: 11-01-2024 Telephone encounter Augustina Vargas MD Work Phone: [facility] Comment on above: Orders (PFPT) Start: 09-22-2024 [facility]ulatory [facility] Start: 09-21-2024 End: 09-21-2024 Telephone encounter Augustina Vargas MD Work Phone: [facility] Comment on above: Other; Patient Updat e Start: 09-15-2024 ambulatory [facility] Start: 09-01-2024 End: 09-01-2024 [facility] Start: 09-01-2024 End: 09-01-2024 Subsequent hospital visit by physician 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 Comment on above: Arrived Start: 08-23-2024 End: 08-23-2024 Telephone encounter Augustina Vargas MD Work Phone: [facility] Comment on above: Medication Problem Start: 08-23-2024 End: 08-23-2024 [facility] Start: 08-23-2024 End: 08-23-2024 Subsequent hospital visit by physician 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 Comment on above: Arrived [...] 10 minutes Sarah Godwin MD Work Phone: [facility] Comment on above: Chronic sialoadeniti s (Primary Dx) Start: 07-26-2024 End: 07-26-2024 ambulatory SARAH GODWIN [facility] Start: 07-12-2024 End: 07-12-2024 ambulatory [facility]USTINA [facility] Start: 07-07-2024 End: 07-07-2024 ambulatory [facility] Start: 07-06-2024 End: 07-06-2024 ambulatory AUGUSTINA VARGAS Facility:[facility] Start: 07-06-2024 End: 07-06-2024 Patient encounter procedure Augustina Vargas MD Work Phone: Gynecology Comment on above: High-tone pelvic stevan or dysfunction (Primary Dx); Nutcracker phenomenon of renal vein; Vaginal dryness; Pelvic congestion; Acute constipation; Postmenopausal atrophic vaginitis; Urethral caruncle; Myalgia Start: 07-02-2024 End: 07-02-2024 Nicole Gonzalez RN [facility] Comment on above: Med Refill Start: 06-28-2024 End: 06-28-2024 ambulatory AUGUSTINA [facility] Start: 06-21-2024 End: 06-21-2024 ambulatory AUGUSTINA [facility] Start: 06-21-2024 End: 06-21-2024 Subsequent hospital visit by physician 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 [facility] Comment on above: Arrived Start: 06-15-2024 End: 06-15-2024 ambulatory AUGUSTINA Kaye [facility] Start: 06-15-2024 End: 06-15-2024 Subsequent hospital visit by physician Yelena Steve [facility] Comment on above: Arrived Start: 06-06-2024 End: 06-07-2024 Telephone encounter Augustina Vargas MD Work Phone: Gynecology Comment on above: botox auth Start: 06-04-2024 End: 06-07-2024 Telephone encounter Augustina Vargas MD Work Phone: [facility] Comment on above: Patient Question [...] Start: 05-10-2024 End: 05-10-2024 ambulatory DANIA STEVEN [facility] Start: 04-26-2024 ambulatory AMMON LUCAS Facility :[facility] Start: 04-26-2024 End: 04-26-2024 Subsequent hospital visit by physician Ct [facility] Radiology Comment on above: Other disorders [...] abdominal 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 (HCC); Wrangell's syndrome; Other hyperlipidemia; Ovarian varices; Nutcracker phenomenon of renal vein; Narcotic drug use Start: 02-19-2024 End: 02-19-2024 Preprocedural examination done [place] [id number] Work Phone: [facility] Work Phone: Start: 02-17-2024 ambulatory AMMON LUCAS [facility] Start: 02-10-2024 End: 02-10-2024 Patient encounter procedure Sarah Godwin MD Work Phone: [facility] Comment on above: Chronic sialoadeniti s (Primary Dx) Start: 02-10-2024 End: 02-10-2024 ambulatory SARAH GODWIN [facility] Start: 01-13-2024 Telephone encounter Rina eagle MD [...] Work Phone: Urology Start: 12-19-2023 Orders Only Rnia Fox MD Work Phone: Vascular Surg Dept Comment on above: 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); Preop testing Start: 12-19-2023 Patient encounter status Lisa Fox MD Work Phone: [facility] Start: 12-18-2023 End: 12-18-2023 Office outpatient [...] Dx) Start: 12-11-2023 Telephone encounter No Pcp SALES PERSON Vas cular Surg Dept Comment on above: Patient Question Start: 12-02-2023 End: 12-02-2023 Patient encounter procedure Matthew Ramirez PA-C Work Phone: [facility] Comment on above: Submandibular gland swelling (Primary Dx); Chronic sialoadenitis Start: 12-02-2023 End: 12-02-2023 ambulatory MATTHEW RAMIREZ [facility] Start: 11-24-2023 End: 11-24-2023 Evaluation and management of inpatient YEN [facility] Start: 11-24-2023 End: 11-24-2023 Evaluation and management of inpatient SARAH GODWIN [facility] Start: 11-20-2023 Telephone encounter Sarah Godwin MD Work Phone: [facility] Start: 11-12-2023 End: 11-12-2023 ambulatory SARAH GODWIN [facility] Start: 11-12-2023 Encounter for other preprocedural examination SARAH GODWIN [facility] Start: 11-12-2023 End: 11-12-2023 Patient encounter procedure Joanne [facility] Provider [facility] Comment on above: Preop testing (Prima ry Dx); Hearing disorder retrocochlear Start: 11-12-2023 End: 11-12-2023 Patient encounter status [facility] Start: 10-08-2023 End: 10-08-2023 ambulatory Ammon Lucas Other [employer] Other Start: 10-08-2023 Telephone encounter Ammon Lucas [facility] Start: 09-30-2023 End: 09-30-2023 Patient encounter procedure Sarah Godwin MD Work Phone: [facility] Comment on above: Submandibular gland swelling (Primary Dx); Chronic sialoadenitis; Sensorineural hearing loss (SNHL), bilateral Start: 09-30-2023 End: 09-30-2023 ambulatory SARAH GODWIN [facility] Start: 09-01-2023 End: 09-01-2023 ambulatory Ammon Lucas Other [employer] Other Start: 09-01-2023 Office outpatient vi sit 15 minutes Ammon Lucas [facility] Start: 08-22-2023 Telephone encounter No Pcp SALES PERSON [facility] Comment on above: Appointment Start: 07-29-2023 End: 07-29-2023 ambulatory Ammon Lucas Other [employer] Other Start: 07-29-2023 Office outpatient vi sit 15 minutes Ammon Lucas [facility] Start: 07-02-2023 End: 07-02-2023 ambulatory Ammon Lucas Other [employer] Other Start: 07-02-2023 Office outpatient vi sit 15 minutes Ammon Lucas [facility] Start: 06-10-2023 End: 06-10-2023 ambulatory Ammon Lucas Other [employer] Other Start: 06-10-2023 Telephone encounter Ammon Lucas [facility] Start: 06-06-2023 End: 06-06-2023 ambulatory Ammon Lucas Other [employer] Other Start: 06-06-2023 Office outpatient vi sit 15 minutes Ammon Lucas [facility] Start: 06-05-2023 End: 06-05-2023 ambulatory Ammon Dylon Other [employer] Other Start: 06-05-2023 Telephone encounter Ammon Dylon [facility] Start: 05-30-2023 End: 05-30-2023 ambulatory Ammon Dylon Other [employer] Other Start: 05-30-2023 Telephone encounter Ammon Lucas [facility] Start: 05-29-2023 End: 05-29-2023 ambulatory Ayaka Joyner Other [employer] Other Start: 05-29-2023 Office outpatient vi sit 25 minutes Ayaka Ar [facility] Start: 05-09-2023 End: 05-09-2023 ambulatory Ammon Dylon Other [employer] Other Start: 05-09-2023 Telephone encounter Ammon Dylon [facility] Start: 02-22-2023 End: 02-22-2023 ambulatory NAVEEN KAHN Facility:[facility] Start: 02-18-2023 End: 02-18-[address] BOSSMAN CEVALLOS . Facility:[facility] Start: 02-11-2023 End: 02-11-2023 ambulatory Ayaka Joyner Other [employer] Other Start: 02-11-2023 Office outpatient vi sit 15 minutes Ayaka Ar [facility] Start: 02-11-2023 Telephone encounter Ammon Lucas [facility] Start: 11-25-2022 End: 11-25-[address] BOSSMAN CEVALLOS . Facility:[facility] Start: 11-22-2022 End: 11-22-2022 ambulatory Ayaka Joyner Other [employer] Other Start: 11-22-2022 Office outpatient vi sit 25 minutes Ayaka Joyner [facility] Start: 11-02-2022 End: 11-02-2022 ambulatory Ammon Lucas Other [employer] Other Start: 11-02-2022 Telephone encounter Ammon Lucas [facility] Start: 11-01-2022 End: 11-02-[address] NONE LISTED REQUEST Facility: Start: 10-31-2022 End: 10-31-2022 ambulatory Ammon Lucas Other [employer] Other Start: 10-31-2022 Office outpatient vi sit 15 minutes Ammon Lucas [facility] Start: 08-14-2022 Gynecological examin ation normal Ammon Dylon Other [employer] Other Start: 08-14-2022 Pre-procedure evalua tion check Ammon Dylon Other [employer] Other Start: 08-13-2022 End: 08-14-2022 ambulatory Boogie Mina Facility: Start: 07-28-2022 End: 07-28-2022 ambulatory Ayaka Joyner Other [employer] Other Start: 07-28-2022 Office outpatient vi sit 25 minutes Ayaka Joyner [facility] Start: 09-14-2021 End: 09-14-2021 ambulatory Manuela Aly Other [employer] Other Start: 09-14-2021 Office outpatient vi sit 15 minutes Manuela Sheeba [facility] Start: 07-29-2021 Office outpatient vi sit 15 minutes Manuela Sheeba [facility] Start: 05-21-2018 End: 05-21-2018 Patient encounter Joel Monroe Facility:[facility] Start: 05-19-2018 End: 05-20-2018 Patient encounter Joel Monroe Facility:[facility] Procedures Date Procedure [...] 60 yrs+ (1 - 1-dose 75+ series) [facility] Start: 07-23-2028 Screening for malignant neoplasm of colon [facility] Start: 03-04-2027 Diabetes Screening Diabetes Screening [facility] Start: 02-18-2027 Diabetes Screening Diabetes Screening [facility] Start: 02-02-2027 Screening for osteoporosis Bone Density Screening [facility] Start: 06-24-2026 Diabetes Screening Diabetes Screening [facility] Start: 06-01-2026 End: 06-01-2026 Patient encounter procedure 06/01/2026 8:45 AM EDT Office Visit [facility] [address] [place] [id number] Dania Steven, [address] [place] [address] [facility] Start: 04-25-2026 Screening for malignant neoplasm of lung Lung Cancer Screening [facility] Start: 04-12-2026 End: 09-02-2026 CT Chest WO contrast CT chest wo IV contrast Imaging Routine Pulmonary nodule Expected: 04/12/2026, Expires: 09/02/2026 [facility] Work Phone: Comment on above: Expected: 04/12/2026, Expires: Start: 12-08-2025 End: 12-08-2025 Patient encounter procedure [facility] Start: 09-30-2025 Screening for malignant neoplasm of breast Mammogram [facility] Start: 08-02-2025 End: 08-02-2025 Patient encounter procedure Rheumatology Comment on above: Follow up Osteoporosis 1st attempt : LVM te mplate change -AV Follow up Osteoporosis Start: 07-26-2025 Adult BMI Screening Adult BMI Screening [facility] Start: 07-26-2025 Tobacco Screening Tobacco Screening [facility] Start: 07-26-2025 End: 07-26-2025 Patient encounter procedure 07/26/2025 10:15 AM EDT Office Visit [facility] [address] [place] [address] Sarah Godwin MD [address] [place] [address] [facility] Start: 07-13-2025 End: 07-13-2025 Patient encounter procedure 07/13/2025 8:30 AM EDT Office Visit Cardiology [address] [address] [place] [address] Nigel Bowens MD [address] [facility] [facility] [place] [address] Coronary artery disease involving mek[place]uk coronary artery of [place] heart without... Cardiology Comment on above: Coronary artery disease involving [place] coronary artery of [place] heart without... Start: 07-04-2025 End: 07-04-2025 Patient encounter procedure 07/04/2025 10:30 AM EDT Office Visit CARD INTERVENTION YOANNA CARMONA [address] [place] [address] Sveta Strong MD [address] [place] [address] (Fax) lvm and mc appt rs from 06/07/25 CARD INTERVENTION YOANNA CARMONA Comment on above: lvm and mc appt rs from 06/07/25 Start: 06-13-2025 Influenza vaccination [facility] Start: 06-07-2025 End: 06-07-2025 Patient encounter procedure 06/07/2025 10:00 AM EDT Office Visit CARD INTERVENTION YOANNA CARMONA [address] [place] [address] Sveta Strong MD [address] [place], [place] [phone] (Fax) Coronary artery disease involving [place] coronary artery of [place] heart without... [facility] INTER[facility] Comment on above: Coronary artery disease involving [place] coronary artery of [place] heart without... Start: 06-02-2025 End: 06-02-2025 Patient encounter procedure 06/02/2025 8:45 AM EDT Office Visit [facility] [address] [place] [address] Dania Steven DO [address] [place] [address] [facility] Start: 05-13-2025 Influenza vaccination Flu vaccine (Season Ended) [facility] Start: 05-10-2025 End: 08-09-2025 25-hydroxyvitamin D3 [Mass/volume] in Serum or Plasma VITAMIN D 25 HYDROXY Lab Routine Vitamin D deficiency Expected: 05/10/2025, Expires: 08/09/2025 [facility] Work Phone: Comment on above: Expected: 05/10/2025, Expires: Start: 05-10-2025 End: 08-09-2025 Cobalamin (Vitamin B12) [Mass/volume] in Serum or Plasma VITAMIN B12 Lab Routine Vitamin B12 deficiency Expected: 05/10/2025, Expires: 08/09/2025 [facility] Work Phone: Comment on above: Expected: 05/10/2025, Expires: Start: 05-10-2025 End: 08-09-2025 Homocysteine [Moles/volume] in Serum or Plasma HOMOCYSTEINE Lab Routine Vitamin B12 deficiency Heart disease, unspecified Expected: 05/10/2025, Expires: 08/09/2025 [facility] Comment on above: Expected: 05/10/2025, Expires: Start: 05-10-2025 Screening for malignant neoplasm of lung Lung Cancer Screening [facility] Start: 05-04-2025 End: 05-04-2025 Patient encounter procedure 05/04/2025 1:45 PM EDT Office Visit Orthopaedics [address] [place] [address] Orquidea Saavedra MD [address] [place] [address] 3 month f/u Orthopaedics Comment on above: 3 month f/u Start: 05-04-2025 End: 05-04-2025 ambulatory 05/04/2025 1:15 PM EDT Results Only [facility] [address] [place] [address] Vitamin B12 deficiency [E53.8] [place] [facility] Comment on above: Vitamin B12 deficiency [E53.8] Start: 05-02-2025 End: 06-03-2025 CT Chest WO contrast CT chest wo IV contrast Imaging Routine Pulmonary nodule Expected: 05/02/2025, Expires: 06/03/2025 [facility] Work Phone: Comment on above: Expected: 05/02/2025, Expires: Start: 03-31-2025 End: 03-31-2025 Patient encounter procedure 03/31/2025 8:30 AM EDT Appointment [facility] [address] [place] [phone] Al Singh, PT [facility] Physical Therapy Comment on above: [facility] Start: 03-28-2025 End: 03-28-2025 Patient encounter procedure 03/28/2025 9:15 AM EDT Appointment [facility] [address] [place] [phone] Cedrick Perera [facility] Physical Therapy Start: 03-21-2025 End: 03-21-2025 Patient encounter procedure 03/21/2025 8:30 AM EDT Appointment [facility] [address] [place] [phone] Cedrick Perera [facility] Physical Therapy Start: 03-16-2025 End: 03-16-2025 Patient encounter procedure 03/16/2025 9:15 AM EDT Appointment [facility] [address] [place] [phone] Cedrick Perera [facility] Physical Therapy Start: 03-14-2025 End: 03-14-2025 Patient encounter procedure 03/14/2025 9:15 AM EDT Appointment [facility] Physical Therapy [address] [place] [phone] Cedrick Perera [facility] Physical Therapy Start: 03-11-2025 End: 03-11-2025 Patient encounter procedure 03/11/2025 8:00 AM EDT Appointment [facility] Physical Therapy [address] [place] [phone] Giovanna Wu PTA [facility] Physical Therapy Start: 03-09-2025 End: 03-09-2025 Patient encounter procedure 03/09/2025 2:30 PM EDT Appointment [facility] Physical Therapy [address] [place] [phone] Giovanna Wu PTA [facility] Physical Therapy Start: 03-08-2025 End: 03-08-2025 Patient encounter procedure 03/08/2025 3:30 PM EDT Office Visit Gynecology [address] [place] [address] Augustina Vargas MD [address] [place] [address] [facility] Gynecology Comment on above: TPI Start: 03-02-2025 End: 03-02-2025 Patient encounter procedure 03/02/2025 3:15 PM EDT Appointment [facility] Physical Therapy [address] [place] [phone] Garrison العراقي PTA [facility] Physical Therapy Start: 03-01-2025 End: 03-01-2025 Patient encounter procedure 03/01/2025 8:30 AM EDT Appointment [facility] Physical Therapy [address] [place] [phone] Garrison العراقي PTA [facility] Start: 02-25-2025 End: 02-25-2025 Patient encounter procedure 02/25/2025 12:15 PM EDT Appointment [facility] Physical Therapy [address] [place] [phone] Giovanna Wu PTA [facility] Physical Therapy Start: 02-21-2025 End: 02-21-2025 Patient encounter procedure 02/21/2025 10:30 AM EDT Appointment [facility] Physical Therapy [address] [place] [phone] 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 PTA [facility] Physical Therapy Start: 02-17-2025 End: 02-17-2025 Patient encounter procedure 02/17/2025 9:45 AM EDT Appointment [facility] Physical Therapy [address] [place] [phone] Al Singh, PT MEDICARE [facility] Physical Therapy Comment on above: MEDICARE Start: 02-12-2025 Tobacco Screening Tobacco Screening [facility] Start: 02-09-2025 Adult BMI Screening Adult BMI Screening [facility] Start: 02-09-2025 Tobacco Screening Tobacco Screening [facility] Start: 02-08-2025 End: 02-08-2025 Patient encounter procedure 02/08/2025 11:20 AM EDT Office Visit Rheumatology [address] [place] [address] Gi Siddiqi MD [address] [place] [address] Return for After results for review of DXA and lab results and discussing rx. Rheumatology Comment on above: Return for After results for review of D XA and lab results and discussing rx. Start: 02-07-2025 End: 02-07-2025 Patient encounter procedure 02/07/2025 11:15 AM EDT Appointment [facility] Physical Therapy [address] [place] [phone] 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 PTA [facility] Physical Therapy Start: 02-07-2025 End: 02-07-2025 ambulatory 02/07/2025 7:15 AM EDT Results Only [place] [facility] [address] [place] [address] lab [place] [facility] Comment on above: lab Start: 01-31-2025 End: 01-31-2025 Patient encounter procedure 01/31/2025 9:45 AM EDT Appointment [facility] Physical Therapy [address] [place] [phone] 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 PTA HAVE YELENA IN FOR 15 MINUTE [facility] Physical Therapy Comment on above: HAVE YELENA IN FOR 15 MINUTE [facility] Start: 01-24-2025 End: 01-24-2025 Patient encounter procedure 01/24/2025 9:00 AM EDT Appointment [facility] [address] [place] [phone] 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 PTA [facility] Start: 01-17-2025 End: 01-17-2025 Patient encounter procedure 01/17/2025 9:00 AM EDT Appointment [facility] [address] [place] [phone] 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 PTA [facility] Start: 01-15-2025 Screening for malignant neoplasm of lung Lung Cancer Screening [facility] Start: 01-12-2025 End: 01-12-2025 Patient encounter procedure 01/12/2025 11:15 AM EDT Appointment [facility] [address] [place] [phone] 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 PTA [facility] Start: 01-10-2025 End: 01-10-2025 Patient encounter procedure 01/10/2025 9:00 AM EDT [facility]ment [facility] [address] [place] [phone] 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 PTA [facility] Start: 01-03-2025 End: 01-03-2025 Patient encounter procedure 01/03/2025 9:45 AM EDT [facility]ment [facility] [address] [place] [phone] 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 PTA [facility] Start: 12-20-2024 End: 12-20-2024 Patient encounter procedure 12/20/2024 9:45 AM EDT Appointment [facility] [address] [place] [phone] 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 PTA [facility] Start: 12-13-2024 End: 12-13-2024 Patient encounter procedure 12/13/2024 9:45 AM EST Appointment [facility] [address] [place] [phone] 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 PTA [facility] Start: 12-08-2024 End: 12-08-2024 Patient encounter procedure 12/08/2024 4:00 PM EST Office Visit Gynecology [address] [place] [address] Augustina Vargas MD [address] [place] [address] [facility]necology Comment on above: TPI Start: 12-06-2024 End: 12-06-2025 DXA Skeletal system Views for bone density DEXA bone density Imaging Routine Postmenopausal state Expected: 12/06/2024 (Approximate), Expires: 12/06/2025 [facility] Comment on above: Expected: 12/06/2024 (Approximate), Expi res: 12/06/2025 Start: 12-06-2024 End: 02-03-2026 MG Breast - bilateral Screening Bilateral screening mammogram Imaging Routine Breast cancer screening by mammogram Expected: 12/06/2024, Expires: 02/03/2026 [facility] Work Phone: Comment on above: Expected: 12/06/2024, Expires: Start: 12-06-2024 End: 12-06-2024 Patient encounter procedure [facility] Physical Therapy Comment on above: Arrived Start: 12-02-2024 Adult BMI Screening Adult BMI Screening [facility] Start: 12-02-2024 Tobacco Screening [facility] Start: 11-29-2024 End: 11-29-2024 Patient encounter procedure 11/29/2024 3:45 PM EST Appointment [facility] [address] [place] [phone] 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 PTA [facility] Start: 11-22-2024 End: 11-22-2024 Patient encounter procedure 11/22/2024 12:00 PM EST Appointment [facility] [address] [place] [phone] 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 PTA [facility] Start: 11-12-2024 Adult BMI Screening [facility] Start: 11-12-2024 Tobacco Screening [facility] Start: 10-13-2024 Advance Directive Discussion Advance Directive Discussion [facility] Start: 10-05-2024 End: 10-05-2024 Patient encounter procedure 10/05/2024 2:30 PM EST Office Visit Gynecology [address] [address] Augustina Vargas MD [address] [place] [address] put her on my schedule oct 05, 2024 at 2:30pm for botox Gynecology Comment on above: put her on my schedule oct 05, 2024 at 2:30pm for botox Start: 09-30-2024 Adult BMI Screening Adult BMI Screening [facility] Start: 09-30-2024 Tobacco Screening Tobacco Screening [facility] Start: 09-29-2024 Screening for malignant neoplasm of breast Mammogram [facility] Start: 09-15-2024 End: 09-15-2024 Patient encounter procedure 09/15/2024 3:30 PM EST Appointment [facility] Physical Therapy [address] [place] [phone] 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 PTA [facility] Physical Therapy Start: 09-08-2024 End: 09-08-2024 Patient encounter procedure 09/08/2024 3:30 PM EST Appointment [facility] Physical Therapy [address] [place] [phone] 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 PTA [facility] Physical Therapy Start: 09-01-2024 End: 09-01-2024 Patient encounter procedure 09/01/2024 9:00 AM EST Appointment [facility] Physical Therapy [address] [place] [phone] 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 PTA needs medicare recheck with yelena at this appt [facility] Physical Therapy Comment on above: needs medicare recheck with yelena at this appt Start: 08-27-2024 End: 08-27-2024 ambulatory 08/27/2024 10:30 AM EST [facility] [address] [address] Augustina Vargas MD [address] [place] [address] 3 MO F/U - TVST ok per Dr. Vargas Gynecology Comment on above: 3 MO F/U - TVST ok per Dr. Vargas Start: 08-27-2024 End: 08-27-2024 Patient encounter procedure 08/27/2024 10:30 AM EST Office Visit Gynecology [address] [place] [address] Augustina Vargas MD [address] [place] [address] 3 MO F/U - TVST ok per Dr. Vargas Gynecology Comment on above: 3 MO F/U - TVST ok per Dr. Vargas Start: 08-23-2024 End: 08-23-2024 Patient encounter procedure 08/23/2024 1:15 PM EST Appointment [facility] Physical Therapy [address] [place] [phone] 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 PTA needs medicare recheck with yelena at next appt [facility] Physical Therapy Comment on above: needs medicare recheck with yelena at next appt Start: 08-17-2024 End: 08-17-2024 ambulatory 08/17/2024 5:00 PM EST [facility] [address] [place] [address] Augustina Vargas MD [address] [place] [address] 6 WEEK FU Gynecology Comment on above: 6 WEEK FU Start: 08-09-2024 End: 08-09-2024 Patient encounter procedure 08/09/2024 10:45 AM EDT Appointment [facility] Physical Therapy [address] [place] [phone] 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 PTA [facility] Physical Therapy Start: 07-26-2024 End: 07-26-2024 Patient encounter procedure 07/26/2024 10:15 AM EDT Office Visit [facility] [address] [facility] [place] [address] Sarah Godwin MD [address] [facility] [address] [place] [address] [facility] Start: 07-20-2024 End: 07-20-2024 Patient encounter procedure 07/20/2024 10:45 AM EDT Office Visit [facility] [address] [facility] [place] [address] Sarah Godwin MD [address] [facility] [address] [place] [address] [facility] Start: 07-06-2024 End: 07-06-2024 Patient encounter procedure 07/06/2024 10:30 AM EDT Office Visit Gynecology [address] [place] [address] Augustina Vargas MD [address] [place] [address] [employer] Gynecology Comment on above: Botox Start: 06-28-2024 End: 06-28-2024 Patient encounter procedure 06/28/2024 1:30 PM EDT Appointment [facility] [address] [place] [address] 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 PTA [facility] Start: 06-24-2024 Screening for malignant neoplasm of lung Lung Cancer Screening [facility] Start: 06-21-2024 End: 06-21-2024 Patient encounter procedure 06/21/2024 9:30 AM EDT Appointment [facility] [address] [place] [address] [phone] 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 PTA [facility] Start: 06-15-2024 Annual Wellness Visit (Medicare) [facility]ic[facility] Start: 06-13-2024 COVID-19 Vaccine ( season) COVID-19 Vaccine () [place] [facility] Start: 06-13-2024 COVID-19 Vaccine () COVID-19 Vaccine () [place] [facility] Start: 06-13-2024 COVID-19 Vaccine () COVID-19 Vaccine ( season) [facility] Start: 06-13-2024 Covid-19 Vaccine ( season) Covid-19 Vaccine ( season) [facility] Start: 06-13-2024 Influenza vaccination [facility] Start: 05-27-2024 End: 05-27-2024 Patient encounter procedure Gynecology Comment on above: new cpp add on- follow up af ter UROLOGY NURSE appt Start: 05-13-2024 Influenza vaccination Flu vaccine (#1) [facility] Start: 05-10-2024 End: 05-10-2024 Patient encounter procedure 05/10/2024 10:00 AM EDT Appointment [facility] - CT Imaging [address] [place] [id number] [facility] - CT Imaging Start: 04-26-2024 End: 04-26-2024 Patient encounter procedure Radiology Comment on above: 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 ORDER SCANNED POST R ENAL AUTOTRANSPLANTATION OTHER DISORDER OF KIDNEY Start: 04-22-2024 End: 04-22-2024 ambulatory 04/22/2024 3:00 PM EDT [facility] [address] [place] [phone] [place] [address] [place] [phone] virtual/per staff message Urology Comment on above: virtual/per staff message Start: 03-02-2024 End: 03-02-2024 Admission to same day surgery center 03/02/2024 7:30 AM EDT - 03/02/2024 5:03 PM EDT Surgery Admitting [address] [place] [address] Viet Carr MD [address] [place] [address] 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 Admitting Comment on above: ROBOTIC SINGLE [place] LAPAROSCOPIC RENAL A UTOTRANSPLANTATION REIMPLANTATION OF KIDNEY Start: 03-02-2024 Subsequent hospital visit by physician 03/02/2024 7:30 AM EDT Hospital Encounter Admitting [address] [place] [address] Viet Carr MD [address] [place] [address] 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] Admitting [...] coagulation profile Expected: 02/25/2024 (Approximate), Expires: 05/26/2024 [facility] Comment on above: Expected: 02/25/2024 (Approximate), Expi res: 05/26/2024 Start: 02-25-2024 End: 05-26-2024 CBC W Auto Differential panel - Blood COMPLETE BLOOD COUNT AND DIFFERENTIAL Lab Routine Nutcracker phenomenon of renal vein Expected: 02/25/2024 (Approximate), Expires: 05/26/2024 [facility] Work Phone: Comment on above: Expected: 02/25/2024 (Approximate), Expi res: 05/26/2024 Start: 02-25-2024 End: 05-26-2024 Comprehensive metabolic 2000 panel - Serum or Plasma COMPREHENSIVE METABOLIC PANEL Lab Routine Nutcracker phenomenon of renal vein Expected: 02/25/2024 (Approximate), Expires: 05/26/2024 [facility] Comment on above: Expected: 02/25/2024 (Approximate), Expi res: 05/26/2024 Start: 02-25-2024 End: 05-26-2024 CONFIRM BLOOD TYPE CONFIRM BLOOD TYPE Blood Bank Routine Nutcracker phenomenon of renal vein Expected: 02/25/2024 (Approximate), Expires: 05/26/2024 [facility] Comment on above: Expected: 02/25/2024 (Approximate), Expi res: 05/26/2024 Start: 02-25-2024 End: 12-29-2024 ECG COMPLETE ECG COMPLETE ECG Routine Nutcracker phenomenon of renal vein Expected: 02/25/2024 (Approximate), Expires: 12/29/2024 [facility] Comment on above: Expected: 02/25/2024 (Approximate), Expi res: 12/29/2024 Start: 02-25-2024 End: 05-26-2024 PT panel - Platelet poor plasma by Coagulation assay PROTHROMBIN TIME Lab Routine Nutcracker phenomenon of renal vein Expected: 02/25/2024 (Approximate), Expires: 05/26/2024 [facility] Comment on above: Expected: 02/25/2024 (Approximate), Expi res: 05/26/2024 Start: 02-25-2024 End: 05-26-2024 TYPE AND SCREEN,30 DAY TYPE AND SCREEN,30 DAY Blood Bank Routine Nutcracker phenomenon of renal vein Expected: 02/25/2024 (Approximate), Expires: 05/26/2024 [facility] Comment on above: Expected: 02/25/2024 (Approximate), Expi res: 05/26/2024 Start: 02-19-2024 End: 02-19-2024 ambulatory 02/19/2024 2:30 PM EDT Results Only Cardiology [address] [phone] PRE OP ELTEMAMY ~ 03/02 Cardiology Comment on above: PRE OP ELTEMAMY ~ 03/02 Start: 02-19-2024 End: 02-19-2024 Patient encounter procedure Admitting Comment on above: PRE OP ELTEMAMY ~ 03/02 Start: 02-19-2024 End: 02-19-2024 Anesthesia consultation 02/19/2024 1:20 PM EDT PAT Pre Anesthesia [address] [address] 9, [address] [place] [address] PRE OP ELTEMAMY ~ 03/02 Pre Anesthesia Comment on above: PRE OP ELTEMAMY ~ 03/02 Start: 02-10-2024 End: 02-10-2024 Patient encounter procedure 02/10/2024 9:45 AM EDT Office Visit [facility] - ENT [address] [facility] [place] [address] Sarah Godwin MD [address] [facility] [address] [place] [address] [facility] - ENT Start: 12-19-2023 End: 03-19-2024 Basic metabolic 2000 panel - Serum or Plasma BASIC METABOLIC PNL Lab Routine Nutcracker phenomenon of renal vein Preop testing Expected: 12/19/2023 (Approximate), Expires: 03/19/2024 [facility] Work Phone: Comment on above: Expected: 12/19/2023 (Approximate), Expi res: 03/19/2024 Start: 12-19-2023 End: 03-19-2024 CBC W Auto Differential panel - Blood CBC + DIFF Lab Routine Nutcracker phenomenon of renal vein Preop testing Expected: 12/19/2023 (Approximate), Expires: 03/19/2024 [facility] Work Phone: Comment on above: Expected: 12/19/2023 (Approximate), Expi res: 03/19/2024 Start: 12-19-2023 End: 03-19-2024 CONFIRM BLOOD TYPE CONFIRM BLOOD TYPE Blood Bank Routine Nutcracker phenomenon of renal vein Preop testing Expected: 12/19/2023 (Approximate), Expires: 03/19/2024 [facility] Work Phone: Comment on above: Expected: 12/19/2023 (Approximate), Expi res: 03/19/2024 Start: 12-19-2023 End: 03-19-2024 PT panel - Platelet poor plasma by Coagulation assay PROTHROMBIN TIME/PT Lab Routine Nutcracker phenomenon of renal vein Preop testing Expected: 12/19/2023 (Approximate), Expires: 03/19/2024 [facility] Work Phone: Comment on above: Expected: 12/19/2023 (Approximate), Expi res: 03/19/2024 Start: 12-19-2023 End: 03-19-2024 STAPH AUREUS PCR STAPH AUREUS PCR Lab Routine Nutcracker phenomenon of renal vein Preop testing Expected: 12/19/2023, Expires: 03/19/2024 [facility] Work Phone: Comment on above: Expected: 12/19/2023, Expires: Start: 12-19-2023 End: 03-19-2024 TYPE AND SCREEN,30 DAY TYPE AND SCREEN,30 DAY Blood Bank Routine Nutcracker phenomenon of renal vein Preop testing Expected: 12/19/2023 (Approximate), Expires: 03/19/2024 [facility] Work Phone: Comment on above: Expected: 12/19/2023 (Approximate), Expi res: 03/19/2024 Start: 12-02-2023 End: 12-02-2023 Patient encounter procedure 12/02/2023 12:45 PM EST Office Visit [facility] - ENT [address] [place] [address], [address] [place] [address] Matthew Ramirez, PA-C [address] [place] [address] [address] [place] [address] [facility] - ENT Start: 11-24-2023 End: 11-24-2023 Admission to same day surgery center 11/24/2023 12:15 PM EST - 11/24/2023 2:15 PM EST Surgery [facility] Surgery [address] [place] [phone] [place] [address] [place] [address] [address] [place] [address] SIALENDOSCOPY RIGHT SUBMANDIBULAR DUCT [19531 (CPT )] [facility] - Surgery Comment on above: SIALENDOSCOPY RIGHT SUBMANDIBULAR DUCT [ 14632 (CPT )] Start: 11-24-2023 Subsequent hospital visit by physician 11/24/2023 12:15 PM EST Hospital Encounter [facility] Surgery [address] [facility] [place] [address] Sarah Godwin MD [address] [facility] [address] [place] [address] [facility] - Surgery Start: 11-24-2023 End: 11-24-2023 Unlisted px salivary glands/ducts SIALENDOSCOPY Submandibular gland swelling Chronic sialoadenitis 11/24/2023 12:15 PM EST [facility] Start: 10-13-2023 Advance Directive Discussion Advance Directive Discussion [facility] Start: 10-13-2023 Behavioral Health Screening Behavioral Health Screening [facility] Start: 10-13-2023 Depression Assessment Depression Assessment [facility] Start: 06-13-2023 Covid-19 Vaccine () Covid-19 Vaccine () [facility] Start: 06-13-2023 Influenza vaccination [facility] Start: 05-13-2023 Medicare Annual Wellness Visit Medicare Annual Wellness Visit [facility] Start: 2022 Fall Risk Screening Fall Risk Screening [facility] Start: 2022 Pneumococcal 65+ years Vaccine (2 of 2 - PCV) Pneumococcal 65+ years Vaccine (2 of 2 - PCV) [facility] Start: 2022 Pneumococcal Vaccine: 65+ (1 of 1 - PCV) Pneumococcal Vaccine: 65+ (1 of 1 - PCV) [facility] Start: 2022 Pneumococcal Vaccine: 65+ (2 of 2 - PCV) Pneumococcal Vaccine: 65+ (2 of 2 - PCV) [facility] Start: 2022 Pneumococcal Vaccine: 65+ Years (2 of 2 - PCV) Pneumococcal Vaccine: 65+ Years (2 of 2 - PCV) [facility] Start: 2022 Screening for osteoporosis Bone Density Screening [facility] Start: 06-30-2021 Pneumococcal 50+ years Vaccine (2 of 2 - PCV) Pneumococcal 50+ years Vaccine (2 of 2 - PCV) [facility] Start: 06-30-2021 Pneumococcal Vaccine: 50+ (2 of 2 - PCV) Pneumococcal Vaccine: 50+ (2 of 2 - PCV) [facility] Start: 06-30-2021 Pneumococcal Vaccine: 65+ (2 of 2 - PCV) Pneumococcal Vaccine: 65+ (2 of 2 - PCV) [facility] Start: 06-30-2021 Pneumococcal Vaccine: 65+ Years (2 of 2 - PCV) Pneumococcal Vaccine: 65+ Years (2 of 2 - PCV) [facility] Start: 2017 Respiratory Syncytial Virus (RSV) or age 60 yrs+ (1 - 1-dose 60+ series) Respiratory Syncytial Virus (RSV) or age 60 yrs+ (1 - 1-dose 60+ series) [facility] Start: 2017 RSV Vaccine (1 - 1-dose 60+ series) RSV Vaccine (1 - 1-dose 60+ series) [facility] Start: 2017 RSV Vaccine (1 - Risk 60-74 years 1-dose series) RSV Vaccine (1 - Risk 60-74 years 1-dose series) [facility] Start: 2012 Screening for osteoporosis DEXA (modify frequency per FRAX score) [facility] Start: 2007 Shingrix Vaccine (1 of 2) Shingrix Vaccine (1 of 2) [facility] Start: 2002 Lipid panel Lipid Screening [facility] Start: 2002 Screening for malignant neoplasm of colon [facility] Start: 1997 Lipid panel Lipids [facility] Start: 1997 Screening for malignant neoplasm of breast [facility] Start: 1976 DTaP,Tdap and Td Vaccines (1 - Tdap) DTaP,Tdap and Td Vaccines (1 - Tdap) [facility] Start: 1976 DTaP/Tdap/Td vaccine (1 - Tdap) DTaP/Tdap/Td vaccine (1 - Tdap) [facility] Start: 1976 Urine microalbumin profile DTaP,Tdap,Td Vaccine (1 - Tdap) [facility] Start: 1975 Anxiety Screening Anxiety Screening [facility] Start: 1975 Depression Screening Depression Screening [facility] Start: 1975 Hepatitis C screening [facility] Start: 1969 Depression Screen Depression Screen [facility] Start: 1969 Depression Screening Depression Screening [facility] Start: 1968 Screening for malignant neoplasm of cervix Cervical Cancer Screening [facility] Start: 03-04-1958 Covid-19 Vaccine (#1) Covid-19 Vaccine (#1) [facility] Start: 1955 Medicare Annual Wellness Visit Medicare Annual Wellness Visit [facility] Start: 1955 Screening for malignant neoplasm of colon [facility] CYSTOSCOPY WHI CYSTOSCOPY WHI P rocedures Routine High-tone pelvic floor dysfunction 1 Occurrences starting 08/18/2024 [facility] Work Phone: Comment on above: 1 Occurrences starting 08/18/2024 End: 12-18-2024 ECG COMPLETE ECG COMPLETE ECG Routine Nutcracker phenomenon of renal vein Preop testing 1 Occurrences starting 12/19/2023 until 12/18/2024 [facility] Work Phone: Comment on above: 1 Occurrences starting 12/19/2023 until 12/18/2024 Injection single/physician allergist immunologist trigger point 1/2 muscles TRIGGER POINT INJECTION MULTI 1-2 MUSCLE GR Procedures Routine Myalgia Ordered: 07/06/2024 [facility] Work Phone: Comment on above: Ordered: 07/06/2024 Injection single/physician allergist immunologist trigger point 1/2 muscles TRIGGER POINT INJECTION MULTI 1-2 MUSCLE GR Procedures Routine Trigger point of abdomen Myalgia, other site Ordered: 12/08/2024 [facility] Work Phone: Comment on above: Ordered: 12/08/2024 End: 07-02-2025 Lipid panel Lipid panel Lab Routine Hyperlipidemia, unspecified hyperlipidemia type 1 Occurrences starting 07/02/2024 until 07/02/2025 [employer] Work Phone: Comment on above: 1 Occurrences starting 07/02/2024 until 07/02/2025 THIN PREP TIS PAP AN D HR HPV DNA THIN PREP TIS PAP AND HR HPV DNA Pathology and Cytology Routine Well woman exam with routine gynecological exam Ordered: 12/06/2024 [facility] Comment on above: Ordered: 12/06/2024 URINALYSIS, REFLEX MICROSCOPIC URINALYSIS, REFLEX MICROSCOPIC Lab Routine Screening for genitourinary condition Ordered: 05/27/2024 [facility] Work Phone: Comment on above: Ordered: 05/27/2024 End: 12-11-2024 US Renal artery US RENAL ARTERY [facility] V[facility] Lab Routine Nutcracker phenomenon of renal vein 1 Occurrences starting 12/12/2023 until 12/11/2024 [facility] Work Phone: Comment on above: 1 Occurrences starting 12/12/2023 until 12/11/2024 End: 12-16-2024 US Vein - bilateral US VENOUS INCOMPETENCY [facility] Lab Routine Nutcracker phenomenon of renal vein 1 Occurrences starting 12/17/2023 until 12/16/2024 [facility] Work Phone: Comment on above: 1 Occurrences starting 12/17/2023 until 12/16/2024 End: 12-16-2024 US.doppler Renal vessels - bilateral US RENAL VENOUS [facility] Lab Routine Nutcracker phenomenon of renal vein 1 Occurrences starting 12/17/2023 until 12/16/2024 [facility] Work Phone: Comment on above: 1 Occurrences starting 12/17/2023 until 12/16/2024 [facility] Immunizations Immunization Date Immunization Notes Care Provider Waylon bravo 07-20-2021 influenza virus vaccine, split virus (incl. 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 purified surface antigen) Ammon Lucas Other [employer] Other 08-11-2019 influenza virus vaccine, unspecified formulation Ammon Lucas MD Work Phone: [facility] 08-11-2019 influenza, injectabl e, quadrivalent, preservative free Dania Briana DO Work Phone: [facility] 08-19-2018 influenza, injectabl e, quadrivalent, preservative free Dania Briana DO Work Phone: [facility] Healthcare Payers Date Payer Category Payer Unknown AARP AARP [id number] 2023-Present [address] [place] [address] [id number] 2023 Managed Care Other (unspecified) [facility] [id number] 2023 Unknown [id number] 2.16.840.1.244822.19 2022 Medicare [id number]. 1.13.159.2 .7.3.282432.315 2018 Private Health Insurance 1959 Medicare [id number] 2.16.840.1.871934.19 1959 Private Health Insurance [id number] 1959 Self-pay 1957 Unknown [id number] 2.16.840.1.560449.3.579.2 .593 1957 Unknown [id number] 2.16.840.1.735329.3.579.2 .593 1957 Unknown [id number] 2.16.840.1.423615.3.579.2 .593 1957 Unknown [id number] 2.16.840.1.248378.3.579.2 .593 1957 Unknown [id number] 2.16.840.1.436331.3.579.2 .1286 1957 Unknown [id number] 2.16.840.1.861212.3.579.2 .128 1957 Unknown [id number] 2.16.840.1.030530.3.579.2 .1286 1957 Unknown [id number] 2.16.840.1.785118.3.579.2 .1286 1957 Unknown [id number] 2.16.840.1.287967.3.579.2 .1286 1957 Unknown [id number] 2.16.840.1.365399.3.579.2 .1286 1957 Unknown [id number] 2.16.840.1.671531.3.579.2 .1286 1957 Unknown [id number] 2.16.840.1.904716.3.579.2 .1286 1957 Unknown [id number] 2.16.840.1.208619.3.579.2 .1286 1957 Unknown [id number] 2.16.840.1.082327.3.579.2 .173 1957 Unknown [id number] 2.16.840.1.602459.3.579.2 .173 1957 Unknown [id number] 2.16.840.1.795540.3.579.2 .173 1957 Unknown [id number] 2.16.840.1.151980.3.579.2 .173 1957 Unknown [id number] 2.16.840.1.177799.3.579.2 .173 1957 Unknown [id number] 2.16.840.1.429086.3.579.2 .173 1957 Unknown [id number] 2.16.840.1.102963.3.579.2 .173 1957 Unknown [id number] 2.16.840.1.457956.3.579.2 .173 1957 Unknown [id number] 2.16.840.1.527970.3.579.2 .173 1957 Unknown [id number] 2.16.840.1.561178.3.579.2 .173 1957 Unknown [id number] 2.16.840.1.103484.3.579.2 .173 1957 Unknown [id number] 2.16.840.1.883781.3.579.2 .173 1957 Unknown [id number] 2.16.840.1.110184.3.579.2 .173 1957 Unknown [id number] 2.16.840.1.634530.3.579.2 .173 1957 Unknown [id number] 2.16.840.1.413236.3.579.2 .173 1957 Unknown [id number] 2.16.840.1.615651.3.579.2 .173 1957 Unknown [id number] 2.16.840.1.855827.3.579.2 .173 1957 Unknown [id number] 2.16.840.1.953543.3.579.2 .173 1957 Unknown [id number] 2.16.840.1.234769.3.579.2 .173 1957 Unknown [id number] 2.16.840.1.325229.3.579.2 .173 1957 Unknown [id number] 2.16.840.1.579326.3.579.2 .173 1957 Unknown [id number] 2.16.840.1.752383.3.579.2 .173 1957 Unknown [id number] 2.16.840.1.666038.3.579.2 .173 1957 Unknown [id number] 2.16.840.1.197868.3.579.2 .173 1957 Unknown [id number] 2.16.840.1.681688.3.579.2 .173 1957 Unknown [id number] 2.16.840.1.089131.3.579.2 .173 1957 Unknown [id number] 2.16.840.1.748625.3.579.2 .173 1957 Unknown [id number] 2.16.840.1.106920.3.579.2 .173 1957 Unknown [id number] 2.16.840.1.813967.3.579.2 .173 1957 Unknown [id number] 2.16.840.1.595262.3.579.2 .173 1957 Unknown [id number] 2.16.840.1.123855.3.579.2 .173 1957 Unknown [id number] 2.16.840.1.292290.3.579.2 .173 1957 Unknown [id number] 2.16.840.1.785666.3.579.2 .173 1957 Unknown [id number] 2.16.840.1.591768.3.579.2 .173 1957 Unknown [id number] 2.16.840.1.244253.3.579.2 .173 1957 Unknown [id number] 2.16.840.1.800572.3.579.2 .173 1957 Unknown [id number] 2.16.840.1.125061.3.579.2 .1286 1957 Unknown [id number] 2.16.840.1.150895.3.579.2 .1286 1957 Unknown [id number] 2.16.840.1.384206.3.579.2 .1259 1957 Unknown [id number] 2.16.840.1.434269.3.579.2 .1259 Medicare AARP Medicare Ad vantage [facility] [id number] Unknown [id number] 2.16.840.1.462714.3.579.2 .593 Social History Date Type Detail Facility Start: 11-05-2023 End: 06-03-2024 Sex Assigned At [facility] Tobacco smoking status [facility] Tobacco smoking consumption unknown [facility] Start: 1955 Sex Assigned At Not on file [facility] Start: 02-24-2020 End: 11-05-2023 Tobacco smoking status SDIS Ex-smoker [facility] Start: 02-07-1970 End: 10-13-2010 History of tobacco use Current smoker [facility] Start: 02-07-1970 End: 10-13-2010 History of tobacco use Cigarette Smoker [facility] Start: 11-05-2023 End: 06-03-2024 Cigarettes smoked current (pack per day) - Reported 1 [facility] Start: 11-05-2023 End: 06-03-2024 Tobacco use and exposure Smokeless tobacco non-user [facility] Start: 11-05-2023 End: 03-08-2025 Alcohol intake Ex-drinker (finding) [facility] National Score (1-100), lower number is lower risk 64 [facility] History of tobacco use Passive smoker [facility] Start: 06-03-2024 End: 06-02-2025 Alcoholic beverage intake Lifetime non-drinker (finding) [facility] Start: 12-02-2023 Alcohol Comment caffeine intak e: 2-3 cups per day [facility] Start: 09-30-2023 End: 07-26-2024 Alcohol intake Current drinker of alcohol (finding) [facility] Start: 07-17-2023 Alcohol Comment 2 per month [facility] Start: 05-18-2015 End: 05-28-2024 Sex Female (finding) [facility] Start: 1955 Sex Assigned At Female F [facility] NEGATED: Highlighted rowStart: NINF History of tobacco use Passive smoker [facility] Medical Equipment Procedure Code Equipment Code Equipment Origin al Text Equipment Identifier Dates Stent Inlay 4.7f r 2 Pigtail Curve Taper Blue Hydrophilic 14cm Ureteral - [id number] Start: 03-02-2024 Clinical Notes 07-29-2021 to [...] 06/12/2023 Chronic rhinitis 03/17/2023 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 Author Type: Physician Type: Progress Notes Filed: 05/05/2025 11:26 Note Text: see dictated note Orquidea Saavedra II, MD [facility] 05-05-2025 History of Present illness Narrative see dictated note Orquidea Saavedra II, MD documented in this encounter [facility] 05-05-2025 Note HNO ID: [id number] Author: ORQUIDEA SAAVEDRA MD Service: Orthopaedic Surgery Author Type: Physician Type: Progress Notes Filed: 05/09/2025 10:36 Note Text: [facility] NOTE [facility] NAME: KAREN ZAIDI [facility] NO.: [id number] DATE OF SERVICE: 05/04/2025 ATTENDING PHYSICIAN: Orquidea [...] months. DICTATED BY: Eliud Soni II/SUDHIR JOB# [id number] [facility] 03-31-2025 History of Present illness Narrative [facility] Outpatient Physical Therapy Daily Note Patient: Karen Zaidi : 1955 CSN #: [id number] Referring Physician: Augustina Vargas MD Date: 03/31/2025 [...] 85% of 1RM to improve bone denisty.--MET [employer] Goals Time Frame for [employer] Goals : 6 weeks Halfway Goal 1: Patient will be independent and compliant with a HEP and gym exercise program. - MET/continued [employer] Goal 2: Patient will improve bilateral LE strength to 5/5 in all major joints and planes. [employer] Goal 3: Patient will improve 5 time sit to stand time by at least 1 second to indicate improved muscular power. 10 STS 16 sec (03/11/25) [employer] Goal 4: Patient will report 70% improvement in overall strength and endurance. - MET (03/31 patient reports 75% improvements) Minutes Tracking: Time In: 844 Time Out: 929 Minutes: 45 Timed Code Treatment Minutes: 42 Minutes Angelina Lantigua PTA Date: 03/31/2025 Cosigned by Al Singh, PT at 03/31/2025 11:47 AM EDT documented in this encounter [facility] 03-28-2025 History of Present illness Narrative [facility] Physical Therapy Daily Note Patient: Karen Zaidi : 1955 CSN #: [id number] Referring Physician: Augustina Vargas MD Date: 03/28/2025 [...] 85% of 1RM to improve bone denisty.--MET Halfway Goals Time Frame for [employer] Goals : 6 weeks [employer] Goal 1: Patient will be independent and compliant with a HEP and gym exercise program. - MET/continued [employer] Goal 2: Patient will improve bilateral LE strength to 5/5 in all major joints and planes. [employer] Goal 3: Patient will improve 5 time sit to stand time by at least 1 second to indicate improved muscular power. 10 STS 16 sec (03/11/25) [employer] Goal 4: Patient will report 70% improvement in overall strength and endurance. Minutes Tracking: Time In: 914 Time Out: 1000 Minutes: 45 Cedrick Rm Date: 03/28/2025 Cosigned by Al Singh, PT at 03/28/2025 1:27 PM EDT documented in this encounter [facility] 03-21-2025 History of Present illness Narrative [facility] Physical Therapy Daily Note Patient: Karen Zaidi : 1955 CSN #: [id number] Referring Physician: Augustina Vargas MD Date: 03/21/2025 [...] 85% of 1RM to improve bone denisty.--MET Halfway Goals Time Frame for [employer] Goals : 6 weeks Halfway Goal 1: Patient will be independent and compliant with a HEP and gym exercise program. - MET/continued Halfway Goal 2: Patient will improve bilateral LE strength to 5/5 in all major joints and planes. Halfway Goal 3: Patient will improve 5 time sit to stand time by at least 1 second to indicate improved muscular power. 10 STS 16 sec (03/11/) [employer] Goal 4: Patient will report 70% improvement in overall strength and endurance. Minutes Tracking: Time In: 829 Time Out: 914 Minutes: 45 Timed Code Treatment Minutes: 44 Minutes Cedrick Rm Date: 03/21/2025 Cosigned by Al Singh, PT at 03/21/2025 10:16 AM EDT documented in this encounter [facility] 03-16-2025 Telephone encounter Note 2nd attempt, spoke with patients , gave phone number for patient to call us back to schedule appointment with Sachi Martinez APRN.CNP AFTER her CARD appointment 3rd, mychart reminder to call sent [facility] 03-16-2025 Miscellaneous Notes 2nd attempt, spoke with patients , gave phone number for patient to call us back to schedule appointment with Sachi Martinez APRN.CNP AFTER her CARD appointment 3rd, mychart reminder to call sent 1st, lvm for patient to call back and schedule with Sachi Martinez APRN.CNP Called and spoke with patient, scheduled sooner for Cardiology in [place] Scheduled for 06/07/2025 in [place]. Patient has been again added to the wait list and marked high priority All we can do is schedule what we have and place patient on wait list. Patient is scheduled with Dr Bowens in July which is her soonest available. If she is willing to travel she might see another gen card sooner but otherwise we have nothing available here in [place] at this time. Please help Karen to reschedule cardiology apt sooner, May if possible, then schedule a follow up apt with me in March. Thank you. documented in this encounter [facility] 03-16-2025 History of Present illness Narrative [facility] Therapy Daily Note Patient: Karen Zaidi : 1955 [facility] #: [id number] Referring Physician: Augustina Vargas MD Date: 03/16/2025 [...] 85% of 1RM to improve bone denisty.--MET [employer] Goals Time Frame for Halfway Goals : 6 weeks Halfway Goal 1: Patient will be independent and compliant with a HEP and gym exercise program. - MET/continued [employer] Goal 2: Patient will improve bilateral LE strength to 5/5 in all major joints and planes. [employer] Goal 3: Patient will improve 5 time sit to stand time by at least 1 second to indicate improved muscular power. 10 STS 16 sec (03/11/25) [employer] Goal 4: Patient will report 70% improvement in overall strength and endurance. Minutes Tracking: Time In: 914 Time Out: 1000 Minutes: 45 Timed Code Treatment Minutes: 44 Minutes Cedrick Rm Date: 03/16/2025 Cosigned by Al Singh, PT at 03/16/2025 7:17 PM EDT documented in this encounter [facility] 03-14-2025 History of Present illness Narrative [facility] Therapy Daily Note Patient: Karen Zaidi : 1955 CSN #: [id number] Referring Physician: Augustina Vargas MD Date: 03/14/2025 [...] 85% of 1RM to improve bone denisty.--MET [employer] Goals Time Frame for [employer] Goals : 6 weeks Halfway Goal 1: Patient will be independent and compliant with a HEP and gym exercise program. - MET/continued Halfway Goal 2: Patient will improve bilateral LE strength to 5/5 in all major joints and planes. [employer] Goal 3: Patient will improve 5 time sit to stand time by at least 1 second to indicate improved muscular power. 10 STS 16 sec (03/11/25) Halfway Goal 4: Patient will report 70% improvement in overall strength and endurance. Minutes Tracking: Time In: 915 Time Out: 1000 Minutes: 44 Timed Code Treatment Minutes: 43 Minutes Cedrick Rm Date: 03/14/2025 Cosigned by Al Singh, PT at 03/14/2025 11:16 AM EDT documented in this encounter [facility] 03-11-2025 History of Present illness Narrative Physical Therapy [facility] Daily Note Patient: Karen Zaidi : 1955 [facility] #: [id number] Referring Physician: Augustina Vargas MD Date: 03/11/2025 [...] 85% of 1RM to improve bone denisty.--MET [employer] Goals Time Frame for [employer] Goals : 6 weeks Halfway Goal 1: Patient will be independent and compliant with a HEP and gym exercise program. - MET/continued Halfway Goal 2: Patient will improve bilateral LE strength to 5/5 in all major joints and planes. [employer] Goal 3: Patient will improve 5 time sit to stand time by at least 1 second to indicate improved muscular power. 10 STS 16 sec (03/11/25) [employer] Goal 4: Patient will report 70% improvement in overall strength and endurance. Minutes Tracking: Time In: 756 Time Out: 841 Minutes: 45 Timed Code Treatment Minutes: 42 Minutes Giovanna Wu PTA Date: 03/11/2025\ Cosigned by Al Singh PT at 03/11/2025 9:00 AM EDT documented in this encounter [facility] 03-09-2025 History of Present illness Narrative Physical Therapy [facility] Daily Note Patient: Karen Zaidi : 1955 CSN #: [id number] Referring Physician: Augustina Vargas MD Date: 03/09/2025 [...] 85% of 1RM to improve bone denisty.--MET Halfway Goals Time Frame for [employer] Goals : 6 weeks Halfway Goal 1: Patient will be independent and compliant with a HEP and gym exercise program. - MET/continued [employer] Goal 2: Patient will improve bilateral LE strength to 5/5 in all major joints and planes. [employer] Goal 3: Patient will improve 5 time sit to stand time by at least 1 second to indicate improved muscular power. Halfway Goal 4: Patient will report 70% improvement in overall strength and endurance. Minutes Tracking: Time In: 1430 Time Out: 1514 Minutes: 44 Timed Code Treatment Minutes: 41 Minutes Giovanna Wu, EVENT STAFF MEMBER Date: 03/09/2025 Cosigned by Al Singh, PT at 03/09/2025 6:51 PM EDT documented in this encounter [facility] [facility] 03-09-2025 Telephone encounter Note 1st, lvm for patient to call back and schedule with Sachi Martinez APRN.INDUSTRIAL PARAMEDIC [facility] 03-08-2025 History of Present illness Narrative Images from the original note were not included. [facility] [id number] FOR CHRONIC PELVIC PAIN OUTPATIENT VISIT DATE 03/08/2025 OUTPATIENT VISIT TYPE FOLLOW UP CHIEF COMPLAINT follow up HISTORY OF PRESENT ILLNESS Karen is a 69 year old female who is in today for follow up. Since last visit: Pt reports that she is completing PT at [place] and is doing a multitude of exercises [...] Pain Scales SUMMARY FROM LAST VISIT Date: [facility] 12/08/24 ASSESSMENT/PLAN Encounter Diagnosis ICD-10-CM 1. [...] psych,PFPT) 1. PFPT documented in this encounter [facility] 03-08-2025 Note HNO ID: [id number] Author: AUGUSTINA VARGAS MD Service: ? Author Type: Physician Type: Progress Notes Filed: 03/14/2025 23:17 Note Text: [facility] [id number] FOR CHRONIC PELVIC PAIN OUTPATIENT VISIT DATE 03/08/2025 OUTPATIENT VISIT TYPE FOLLOW UP CHIEF COMPLAINT follow up HISTORY OF PRESENT ILLNESS Karen is a 69 year old female who is in today for follow up. Since last visit: Pt reports that she is completing PT at [place] and is doing a multitude of exercises [...] Services (GI, urology, pain psych,PFPT) 1. PFPT [facility] 03-03-2025 Telephone encounter Note Called and spoke with patient, scheduled sooner for Cardiology in [place] Scheduled for 06/07/2025 in [place]. 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 Halfway Goal 3: Patient will improve 5 time sit to stand time by at least 1 second to indicate improved muscular power. Halfway Goal 4: Patient will report 70% improvement in overall strength and endurance. 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 Halfway Goal 2: Patient will improve bilateral LE strength to 5/5 in all major joints and planes. Halfway Goal 3: Patient will improve 5 time sit to stand time by at least 1 second to indicate improved muscular power. Halfway Goal 4: Patient will report 70% improvement in overall strength and endurance. Minutes Tracking: Time In: 1030 Time Out: 1112 Minutes: 42 Trudy Garner PTA Date: 02/25/2025 Cosigned by Al Singh, PT at 02/25/2025 2:26 PM EDT documented in this encounter [facility] 02-18-2025 Telephone encounter Note All we can do is schedule what we have and place patient on wait list. Patient is scheduled with Dr Bowens in July which is her soonest available. If she is willing to travel she might see another gen card sooner but otherwise we have nothing available here in [place] at this time. [facility] 02-14-2025 Telephone encounter Note Please help Karen to reschedule cardiology apt sooner, May if possible, then schedule a follow up apt with me in March. Thank you. [facility] 02-11-2025 Telephone encounter Note Attempted to [...] discuss with a nurse. Cielo Gomez RN [facility] 02-11-2025 Miscellaneous Notes Attempted to reach [...] comments: Cyclobenzaprine need PA. Letter scan into [facility]. Recommendation: routed to nurse triage pool Last visit in this department: Visit date not found Last distance health visit in this department: Visit date not found Next visit in this department: Visit date not found Appointments for Next 60 Days Date Time Provider Location Dept Phone 03/08/2025 3:30 PM AUGUSTINA VARGAS d [phone] documented in this encounter [facility] 02-10-2025 Telephone encounter Note Reason for call: Other Provider name: Dr Vargas Additional comments: Cyclobenzaprine need PA. Letter scan into [facility]. Recommendation: routed to nurse triage pool Last visit in this department: Visit date not found Last distance health visit in this department: Visit date not found Next visit in this department: Visit date not found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 Patient endorses abdominal and L flank pain with radiation to pelvis Other hyperlipidemia ([facility]/H[facility]) 02/19/2024 Last Assessment & Plan: Managed on Atorvastatin Ovarian varices 02/19/2024 Last Assessment & Plan: 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 Exam conducted with a flower grader present. Vitals: Estimated body mass index is [...] Since last visit she had surgery at [facility] where they performed what is called [...] of: DELIA Burnett documented in this encounter [facility] 11-01-2024 Telephone encounter Note Order faxed with transmission receipt. Kira Alvarez RN November 01, 2024 3:59 PM [facility] 11-01-2024 Miscellaneous Notes Order faxed with transmission receipt. Kira Alvarez RN November 01, 2024 3:59 PM Patient cleared by ortho to resume PFPT. Patient requesting new order placed and faxed to number below: documented in this encounter [facility] 11-01-2024 Telephone encounter Note Patient cleared by ortho to resume PFPT. Patient requesting new order placed and faxed to number below: [facility] 09-21-2024 Note Addended by: ALYSHA MEIER on: 09/21/2024 02:45 PM Modules accepted: Orders [facility] 09-21-2024 Miscellaneous Notes Addended by: ALYSHA TORRES on: 09/21/2024 02:45 PM Modules accepted: Orders [facility] 08/17/2024 Assessment: Encounter Diagnosis ICD-10-CM 1. [...] of current situation. documented in this encounter [facility] 09-21-2024 Telephone encounter Note [facility] 08/17/2024 Assessment: Encounter Diagnosis ICD-10-CM 1. High-tone pelvic floor dysfunction M62.89 cyclobenzaprine (FLEXERIL) 5 mg tablet onabotulinum toxin type A 100 Units injection (BOTOX) Plan: 1) fu botox and abd TPI 10/05/24 2) continue flexeril vaginally Total Time Spent: 5-10 minutes Augustina Vargas MD [facility] 09-21-2024 Telephone encounter Note Pt fyi - broke pelvis in four places about 3 weeks ago. Had to cancel all future PT appts and will need new order for end of end of November/beginning of December. Also had to reschedule TPI to end of November. Pt concerned and wanted to insure Dr was aware of current situation. [facility] 09-01-2024 Telephone encounter Note Refill(s) request: Requested Prescriptions Pending Prescriptions Disp Refills cyclobenzaprine (FLEXERIL) 5 mg tablet [Pharmacy Med Name: cyclobenzaprine 5 mg tablet] 90 tablet 4 Sig: take1 tablet BY MOUTH at bedtime as needed Called patient. 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 Request from: [...] Center 10/05/2024 2:30 PM Augustina Vargas MD [facility] Appointment scheduled: As listed above Action taken: Refill already approved by provider. Danae Colindres RN September 01, 2024 12:[address] [facility] 09-01-2024 Miscellaneous Notes Refill(s) request: Requested Prescriptions Pending Prescriptions Disp Refills cyclobenzaprine (FLEXERIL) 5 mg tablet [Pharmacy Med Name: cyclobenzaprine 5 mg tablet] 90 tablet 4 Sig: take1 tablet BY MOUTH at bedtime as needed Called patient. 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 Request from: [...] Center 10/05/2024 2:30 PM Augustina Vargas MD [facility] Appointment scheduled: As listed above Action taken: Refill already approved by provider. Danae Colindres RN September 01, 2024 12:05 PM documented in this encounter [facility] 08-23-2024 Telephone encounter Note Called Guille Kaur to clarify that prescription is for Flexeril 5 mg tablets and to use 1 tablet at bedtime vaginally. Juliet Lopez RN [facility] 08-23-2024 Miscellaneous Notes Called Guille Kaur to clarify that prescription is for Flexeril 5 mg tablets and to use 1 tablet at bedtime vaginally. Juliet Lopez RN Received call from pharmacy asking for clarification of directions for: cyclobenzaprine (FLEXERIL) 5 mg tablet States that direction says to use vaginally but prescription is for oral tablet Please advise: [facility] [id number] - [place] [address] [address] - [phone] documented in this encounter [facility] 08-23-2024 Telephone encounter Note Received call from pharmacy asking for clarification of directions for: cyclobenzaprine (FLEXERIL) 5 mg tablet States that direction says to use vaginally but prescription is for oral tablet Please advise: [facility] [id number] - [place] [address] [address] - [phone] [facility] 08-19-2024 Telephone encounter Note Done Lupis Hodge [facility] Work Phone: 08-19-2024 Miscellaneous Notes Done Lupis Hodge Done Encounter Diagnosis ICD-10-CM 1. High-tone pelvic floor dysfunction M62.89 CYSTOSCOPY WHI Please put her on my schedule oct 05, 2024 at 2:30pm for botox, which is approved already Patient aware documented in this encounter [facility] 08-18-2024 Telephone encounter Note Done Encounter Diagnosis ICD-10-CM 1. High-tone pelvic floor dysfunction M62.89 CYSTOSCOPY WHI [facility] 08-17-2024 Note HNO ID: [id number] Author: AUGUSTINA VARGAS MD Service: ? Author [...] Services (GI, urology, pain psych,PFPT) 1. PFPT [facility] 08-17-2024 History of Present illness Narrative CHRONIC [...] psych,PFPT) 1. PFPT documented in this encounter [facility] 08-17-2024 Telephone encounter Note Please put her on my schedule oct 05, 2024 at 2:30pm for botox, which is approved already Patient aware [facility] 07-26-2024 History of Present illness Narrative [facility] [address] [place] [address], [address] [place] [id number] SUBJECTIVE: Patient ID: Karen Zaidi is a [...] autotransplantation of her kidney on 03/02/2024 at [facility]. 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 Osteoporosis Pelvic congestion syndrome Peripheral vascular disease ([facility]) Seasonal allergies Submandibular gland swelling 11/12/2023 Visual impairment glasses Past Surgical History: Procedure Laterality Date CATARACT EXTRACTION Bilateral 2018 CHOLECYSTECTOMY 1979' COLONOSCOPY COLONOSCOPY N/A 07/23/2018 Performed by Orquidea Christine DO at [facility] DENTAL SURGERY 07/2013 implants Diagnostic cerebral angiogram N/A 03/31/2020 Performed by Melissa Morillo MD at [facility] CARDIAC CATH LABS DIAGNOSTIC VENOGRAM OF IVC AND ILEOCABLE, LEFT RENAL VEIN, SELECTIVE LEFT OVARIAN VEIN CONTRAST AND IVUS VENOGRAMS N/A 07/25/2023 Performed by Erendira Armijo DO at [facility] SPECIAL PROC dilation rt submandibular duct and steroid irrigation Right 11/24/2023 Performed by Sarah Godwin MD at [facility] KIDNEY STONE SURGERY 2019? KNEE CARTILAGE SURGERY MOLE REMOVAL 11/10/2023 right breast NEPHRECTOMY TRANSPLANTED ORGAN 03/02/2024 OTHER SURGICAL HISTORY 08/31/2020 cranial base ( cranial styloidectomy) 05/2020 also OTHER SURGICAL HISTORY 06/18/2023 venogram OTHER SURGICAL HISTORY 09/09/2023 DIagnostic venogram TUBAL LIGATION Vascular Invasive Diagnostic venogram with IVUS and the ability to measure pressure gradients Bilateral 06/18/2023 Performed by Erendira Armijo DO at [facility] CARDIAC CATH LABS Family History [...] or concerns: . Non-emergent messages received through [employer] may take up to 2 business days [...] this chart were generated using voice recognition [employer] dictation software. Although every effort was made to ensure the accuracy of this automated rod finisher, some errors in rod finisher may have occurred. Yovana Veloz CNA 07/26/24 1024 [facility]-26[facility]24 Instructions Neda Stevens - 07/26/2024 10:15 [...] or concerns: . Non-emergent messages received through [employer] may take up to 2 business days for a response. documented in this encounter [employer] 07-06-2024 Instructions Augustina Vargas MD - 07/06/2024 [...] urinary incontinence (4.8%). documented in this encounter [facility] 07-06-2024 History of Present illness Narrative Images from the original note were not included. [facility] SECTION FOR CHRONIC PELVIC PAIN OUTPATIENT VISIT [...] Patient tolerated procedure well. OnabotulinumtoxinA: office provided LOT:[id number] EXP: 08/2026 PROCEDURE ABDOMINAL TRIGGER POINT INJECTIONS [...] 0.25% Bupivacaine 10 ML --- lot # [id number] EXP: 05/2026 documented in this encounter [facility] 07-06-2024 Note HNO ID: [id number] Author: AUGUSTINA VARGAS MD Service: ? Author Type: Physician Type: Progress Notes Filed: 07/06/2024 11:47 Note Text: [facility] SECTION FOR CHRONIC PELVIC PAIN OUTPATIENT VISIT [...] plan. Medical [place] (more content not included)... [facility] 06-07-2024 Telephone encounter Note Called pt; verified name/. Advised pt to use Flexeril vaginally, inserting as far as it will go at bedtime. Advised pt that it may cause drowsiness, but to a lesser degree when inserted vaginally vs. orally. Pt verbalized understanding and had no further questions. Kira Alvarez RN June 07, 2024 10:25 AM [facility] 06-07-2024 Miscellaneous Notes Called pt; verified [...] grogginess but more so if used orally [facility] 05/27/2024 Notes not yet complete Alysha [...] 2024 10:38 AM documented in this encounter [facility] 06-07-2024 Telephone encounter Note Done Lupis Hodge [facility] Work Phone: 06-07-2024 Miscellaneous Notes Keara Hodge Botox is approved; can she start PFPT if she desires and then do botox or do botox in office first available appointment documented in this encounter [facility] 06-06-2024 Telephone encounter Note Botox is approved; can she start PFPT if she desires and then do botox or do botox in office first available appointment [facility] 06-06-2024 Telephone encounter Note Tell her fleexeril, I like to try it vaginally first (less side effects ) and use at night. 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 Last Assessment & Plan: Sp styloidectomy Family history of abdominal aortic aneurysm 08/20/2023 Infrarenal abdominal 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 ([facility]) 08/20/2023 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 Lung nodule Malnutrition of moderate degree ([facility]) 03/03/2024 Mass of right submandibular region 12/01/2023 Narcotic drug use 02/19/2024 Last Assessment & Plan: Pain managed with norco PRN Neck pain 12/01/2023 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 Last Assessment & Plan: With pelvic congestion Patient endorses abdominal and L flank pain with radiation to pelvis Other hyperlipidemia ([facility]) 02/19/2024 Last Assessment & Plan: Managed on Atorvastatin Ovarian varices 02/19/2024 Last Assessment & Plan: 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 Plan for surgery Pelvic pain 08/20/2023 Pharyngeal dysphagia 03/17/2023 S/P renal autotransplant ([facility]) 03/02/2024 Sinus bradycardia on ECG 02/20/2024 Last [...] Dania Steven DO documented in this encounter [facility] 05-28-2024 Telephone encounter Note [facility] 05/27/2024 Notes [...] dysfunction, high tone pelvic floor,pelvic floor tightness) [facility] 05-28-2024 Miscellaneous Notes NICK 05/27/2024 Notes [...] visit in this department: 08/27/2024 08/27/2024 in UROLOGY NURSE MAIN with AUGUSTINA VARGAS - 3 MO F/U - TVST ok per Dr. Vargas , PLS CALL HOME PHONE PT is unable to do VV documented in this encounter [facility] 05-28-2024 Telephone encounter Note Reason for [...] visit in this department: 08/27/2024 08/27/2024 in UROLOGY NURSE MAIN with AUGUSTINA VARGAS - 3 MO F/U - TVST ok per Dr. Vargas , PLS CALL HOME PHONE PT is unable to do VV [facility] Work Phone: 05-27-2024 History of Present [...] (FLONASE) 50 mcg/actuation nasal spray Use 1 Cutler in the nose as needed for cold/allergy [...] SURGICAL HISTORY OF; Right Comment: styloidectomy for ute syndrome No date: PAST SURGICAL HISTORY OF [...] Viet Carr MD documented in this encounter [facility] 05-27-2024 Note HNO ID: [id number] Author: VIET CARR MD Service: ? Author [...] (FLONASE) 50 mcg/actuation nasal spray Use 1 Cutler in the nose as needed for cold/allergy [...] SURGICAL HISTORY OF; Right Comment: styloidectomy for ute syndrome No date: PAST SURGICAL HISTORY OF [...] -Follow up as needed Viet Carr MD [facility] 05-27-2024 Augustina Lawrence MD - 05/27/2024 9:39 [...] messages will go to the RN or senior quality manager first to be addressed. If questions are urgent, please call [phone] and press nurse prompt. For urgent Questions: call my executive legal secretary with questions, appts related to chronic pelvic pain, Lupis Chowdary ,fax [phone] For refills, I prefer these be sent through [employer] We also have a nurse coordinatorKaren Francis RN My schedule: I see patients in office Friday/Friday/ and Fridays: virtual visits only documented in this encounter [facility] 05-27-2024 Note HNO ID: [id number] Author: AUGUSTINA VARGAS MD Service: ? Author Type: Physician Type: Progress Notes Filed: 06/06/2024 23:06 Note Text: [facility] SECTION FOR CHRONIC PELVIC PAIN OUTPATIENT VISIT DATE 05/27/2024 OUTPATIENT VISIT TYPE CONSULT REFERRING PROVIDER: No ref. provider found PRIMARY CARE PROVIDER: Ammon Lucas MD PRIMARY PRODUCTION COORDINATOR: Consultation requested by referring provider above for [...] pain. 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 Patient is postmenopausal. Cycles: Menopausal Last pap: Pap Results: WNL/neg HPV 03/2023 History of abnormal pap: No [place]: ([facility] intake) Dyspareunia: both insertional and deep [...] endorses Pain changes with bowel movements: endorses. [place] scale: dnc Pudendal symptoms: (page 13) Pain [...] adult: None Curr (more content not included)... [facility] 05-27-2024 History of Present illness Narrative Images from the original note were not included. [facility] SECTION FOR CHRONIC PELVIC PAIN OUTPATIENT VISIT DATE 05/27/2024 OUTPATIENT VISIT TYPE CONSULT REFERRING PROVIDER: No ref. provider found PRIMARY CARE PROVIDER: Ammon Lucas MD PRIMARY PRODUCTION COORDINATOR: Consultation requested by referring provider above for [...] pain. 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 Patient is postmenopausal. Cycles: Menopausal Last pap: Pap Results: WNL/neg HPV 03/2023 History of abnormal pap: No [place]: (MA intake) Dyspareunia: both insertional and deep [...] endorses Pain changes with bowel movements: endorses. [place] scale: dnc Pudendal symptoms: (page 13) Pain [...] SURGICAL HISTORY OF; Right Comment: styloidectomy for ute syndrome No date: PAST SURGICAL HISTORY OF Comment: R knee menisus repair No date: PAST SURGICAL HISTORY OF Comment: falloption tube tied 11/24/2023: PAST SURGICAL HISTORY OF Comment: right submandibular duct dilation with steroid irrigation No date: REMOVAL GALLBLADDER; N/A Comment: 1980s Finish Cleaner history: see HPI FAMILY HISTORY Problem Relation [...] (FLONASE) 50 mcg/actuation nasal spray Use 1 Cutler in the nose as needed for cold/allergy [...] no lesions, non-tender Speculum exam: Deferred Vagina: [place], moist, well-rugated vagina without lesions. non-tender Cervix: [...] obtained in 12 months --END OF FINDING-- Flatbed Driver: TRINI Transcribe Date/Time: Apr 30 2024 12:52P [...] PHYSICAL THERAPY You can search for others [email or web address], enter zip or city You can click [...] pain psych,PFPT) 1. documented in this encounter [facility] 05-27-2024 Note Patient Outreach (UR OLMN) KAREN ZAIDI ([id number]) 1955 F Date Time Provider Department 05/27/24 [...] for genitourinary condition [Z13.89] Order(s):URINALYSIS, REFLEX MICROSCOPIC [[id number]] Order #: [id number] URINALYSIS, REFLEX MICROSCOPIC [[id number]] Order #: [id number]. #:[id number] Prescriptions as of 05/31/2024 - cyclobenzaprine (FLEXERIL) [...] (FLONASE) 50 mcg/actuation nasal spray Use 1 Cutler in the nose as needed for cold/allergy [...] Resolved 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 Other hyperlipidemia [E78.49] 02/19/2024 Ovarian varices [I86.2] 02/19/2024 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/2024 Narcotic drug use [F11.90] 02/19/2024 Sinus bradycardia on ECG [R00.1] 02/20/2024 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 Malnutrition of moderate degree (HCC) [E44.0] 03/03/2024 Encounter Status:Closed by [employer], PRODUSER on 05/31/24 [facility] 04-26-2024 History of Present illness Narrative Radiology [...] PATIENT PRESENTS WITH AN IMPLANTABLE OR ATTACHED OFFSET MACHINE OPERATOR: No RADIOLOGY DEPARTMENT: CT; Exam(s) Completed: Abdomen/Pelvis PERIPHERAL IV DATA: Site assessment: Clean,Dry and Intact, Site disposition Discontinued SIGNED BY: TECHNOLOGIST Yunier April 26, 2024 2:30 PM documented in this encounter [facility] 04-26-2024 Note HNO ID: [id number] Author: CHRIS MEDRANO TECHNOLOGIST Service: ? Author [...] PATIENT PRESENTS WITH AN IMPLANTABLE OR ATTACHED OFFSET MACHINE OPERATOR: No RADIOLOGY DEPARTMENT: CT; Exam(s) Completed: Abdomen/Pelvis PERIPHERAL IV DATA: Site assessment: Clean,Dry and Intact, Site disposition Discontinued SIGNED BY: TECHNOLOGIST Yunier April 26, 2024 2:30 PM [facility] 04-26-2024 Nurse Note Radiology Service Progress [...] DATE: April 26, 2024 TIME: 1:22 PM [facility] 04-26-2024 Nurse Note Radiology Service Progress [...] TIME: 1:22 PM documented in this encounter [facility] 04-21-2024 Telephone encounter Note Called pt to discuss her postop questions. Discussed no restrictions on activity, swimming, driving, etc. Still having some pain in pelvis but flank pain and other symptoms have improved. Inquiring about f/up -- had stent removed on 04/07. Will set up 3 jorge post op f/up. She is seeing gynecology at [facility] on 05/27, will try to coordinate appt w/ Dr. Carr on that day. Destiny Borrero MD [facility] Work Phone: 04-21-2024 Miscellaneous Notes Called pt to discuss her postop questions. Discussed no restrictions on activity, swimming, driving, etc. Still having some pain in pelvis but flank pain and other symptoms have improved. Inquiring about f/up -- had stent removed on 04/07. Will set up 3 jorge post op f/up. She is seeing gynecology at [facility] on 05/27, will try to coordinate appt w/ Dr. Carr on that day. Destiny Borrero MD documented in this encounter [facility] 04-10-2024 Procedure note Karen Zaidi is [...] follow up as scheduled Allen Munoz MD [facility] 04-10-2024 Procedure note Karen Zaidi is [...] Allen Munoz MD documented in this encounter [facility] 04-07-2024 History of Present illness Narrative [...] Robel Lawrence RN documented in this encounter [facility] 04-07-2024 Nurse Note The procedure started [...] had the pain?) unknown Robel Lawrence RN [facility] 04-07-2024 Nurse Note The procedure started [...] provider: Yes Patient was roomed in: Q9- Dental Laboratory Manager offered:Patient declines Patient arrived in the [...] for procedure details. documented in this encounter [facility] 04-07-2024 Nurse Note Actual procedure/procedure scheduled: Yes Performing provider/scheduled provider: Yes Patient was roomed in: Q9- Dental Laboratory Manager offered:Patient declines Patient arrived in the [...] care. See her note for procedure details. [facility] 02-19-2024 History of Present illness Narrative [...] due to technical problems in the laborer aquatic life. Venous duplex US - UE 07/18/23: - [...] (FLONASE) 50 mcg/actuation nasal spray Use 1 Cutler in the nose as needed for cold/allergy [...] Viet Carr MD documented in this encounter [facility] 02-19-2024 Instructions Asia Sawyer, SHARON.INDUSTRIAL PARAMEDIC - 02/19/2024 1:32 PM EDT PATIENT PREOPERATIVE INSTRUCTIONS Viet Carr MD has scheduled you for your procedure at this surgery center: If no call by 4pm the day before surgery, please call this number. [place] Scheduling Office: [phone] --[address] [place] [address]. Please read below carefully for your personalized [...] Procedures: - YOU MUST HAVE A RESPONSIBLE SALES STORE CHECKER TAKE YOU HOME. A GUARD IMMIGRATION OR CAKE STRIPPER CANNOT BE MADE A RESPONSIBLE SALES STORE CHECKER. - We recommend that a responsible person [...] call the Friday before. Your surgeon s maintenance scheduler will tell you what time to call the office. - If you have not reached the departmental maintenance scheduler by 5 P.M., call [phone] after 5 P.M. the day before your surgery. Please be aware that emergency situations arise, which may delay or change your surgical time. If this happens, we will notify you as soon as possible and regret any inconvenience. If you already have an Advance Directive, please fax a copy to [phone] or email to for it to be [...] Asia Sawyer APRN.CNP documented in this encounter [facility] 02-19-2024 History and physical note HISTORY AND PHYSICAL EXAMINATION SERVICE DATE: 02/19/2024 SERVICE TIME: 1:17 PM PRIMARY CARE PHYSICIAN: Ammon Lucas MD Assessment Patient has the following medical conditions which may affect elzbieta-operative course: 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 Wrangell's syndrome Sp styloidectomy Other hyperlipidemia Managed on [...] Abdominal Aortic Aneurysm (Aaa) Without Rupture (Hcc) Wrangell's Syndrome Other Hyperlipidemia Ovarian Varices Nutcracker Phenomenon [...] Positive for: peripheral neuropathy (neurontin). Negative for: POT PUNCHER tumor, delirium, dementia, headaches, multiple sclerosis, seizures, [...] chest pain, CHF, DVT/PE, hypertension and recent AR. GI: Pelvic congestion, abdominal and L flank [...] nephrolithiasis, renal failure and urinary tract infection. UROLOGY NURSE: See HPI. Endocrine: Negative for: diabetes mellitus, [...] SURGICAL HISTORY OF Right 2020 styloidectomy for ute syndrome PAST SURGICAL HISTORY OF R knee [...] (FLONASE) 50 mcg/actuation nasal spray Use 1 Cutler in the nose as needed for cold/allergy [...] 462 QTC Calculation (Bazett) 438 Calculated P Waddington 21 Calculated R Wadding[place] 68 Calculated T [place]adding[place] 69 Impression SINUS BRADYCARDIA OTHERWISE NORMAL ECG No results found for this or any previous visit (from the past 59066 hour(s)). Instructions Given to Patient: Instructions located in the after visit summary. Patient given verbal and written preop instructions and voices comprehension and compliance. 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 Wrangell's syndrome Sp styloidectomy Other hyperlipidemia Managed on [...] Abdominal Aortic Aneurysm (Aaa) Without Rupture (Hcc) Wrangell's Syndrome Other Hyperlipidemia Ovarian Varices Nutcracker Phenomenon [...] Positive for: peripheral neuropathy (neurontin). Negative for: POT PUNCHER tumor, delirium, dementia, headaches, multiple sclerosis, seizures, [...] chest pain, CHF, DVT/PE, hypertension and recent AR. GI: Pelvic congestion, abdominal and L flank [...] nephrolithiasis, renal failure and urinary tract infection. UROLOGY NURSE: See HPI. 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 Instructions Given to Patient: Instructions located in the after visit summary. Patient given verbal and written preop instructions and voices comprehension and compliance. SIGNATURE: Asia Sawyer APRN.MARIBEL PATIENT NAME: Karen Zaidi DATE: February 19, 2024 TIME: 1:54 PM PAGER/CONTACT #: documented in this encounter [facility] 02-10-2024 History of Present illness Narrative [facility] [address] [place] [address], [address] [facility] [address] SUBJECTIVE: Patient ID: Karen Zaidi is a [...] for autotransplantation of kidney on 03/02/2024 at [facility]. She uses Flonase and singular during her symptomatic times. 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 Osteoporosis Pelvic congestion syndrome Peripheral vascular disease ([facility]) Seasonal allergies Submandibular gland swelling 11/12/2023 Visual impairment glasses Past Surgical History: Procedure Laterality Date CATARACT EXTRACTION Bilateral 2018 CHOLECYSTECTOMY COLONOSCOPY COLONOSCOPY N/A 07/23/2018 Performed by Orquidea Christine DO at [facility] 07/2013 implants Diagnostic cerebral angiogram N/A 03/31/2020 Performed by Melissa Morillo MD at [facility] CARDIAC CATH LABS DIAGNOSTIC VENOGRAM OF IVC AND ILEOCABLE, LEFT RENAL VEIN, SELECTIVE LEFT OVARIAN VEIN CONTRAST AND IVUS VENOGRAMS N/A 07/25/2023 Performed by Erendira Armijo DO at [facility] SPECIAL PROC dilation rt submandibular [...] 06/18/2023 Performed by Erendira Armijo DO at [facility] CARDIAC CATH LABS Family History [...] or concerns: . Non-emergent messages received through [employer] may take up to 2 business days [...] this chart were generated using voice recognition [employer] dictation software. Although every effort was made to ensure the accuracy of this automated rod finisher, some errors in rod finisher may have occurred. [facility] Instructions Ambika Martin - 02/10/2024 9:45 [...] or concerns: . Non-emergent messages received through [employer] may take up to 2 business days for a response. [facility] Miscellaneous Notes [facility] email message to cancel surgery being done robotic procedure instead at the Clinic. documented in this encounter [facility] 01-01-2024 Miscellaneous Notes Sounds good thanks Mrs. Zaidi called to let Dr. Fox know that Urology is able to do the proposed procedure robotically and that she is scheduled to have it done on March 02. Estephania Mojica Regional Commercial Sales Manager documented in this encounter [facility] 12-25-2023 History of Present illness Narrative [...] due to technical problems in the laborer aquatic life. Venous duplex US - UE 07/18/23: - [...] (FLONASE) 50 mcg/actuation nasal spray Use 1 Cutler in the nose as needed for cold/allergy [...] Viet Carr MD documented in this encounter [facility] 12-22-2023 History of Present illness Narrative Images from the original note were not included. PATIENT: Karen Zaidi [id number] NEW PATIENT REFERRING MD: Rina Fox 12/20/2023 [...] pelvis region (feels like sitting on cucumber) [place] this started one year ago. Thought it [...] elevating her legs. with PMH significant for Wrangell Syndrome, jugular vein stenosis (asymptomatic), HLD, nutcracker [...] fluticasone (FLONASE) 50 mcg/actuation nasal spray 1 Cutler, NASAL, NEEDED, Take in allergy season
gabapentin [...] due to technical problems in the laborer aquatic life. Venous duplex US - UE 07/18/23: - [...] for renal vein transposition (msg sent through [employer]) Scribe Attestation: By signing my name below, [...] Deleon MD [facility] Medical Decision Making: Problems: Moderate: New problem with uncertain prognosis Data: Unique test result(s) reviewed: 1 Unique test(s) ordered: 1 Risk: Moderate: Moderate risk from testing/treatment Medical Decision Making Level: 4 - Moderate documented in this encounter [facility] 12-22-2023 Nurse Note Summary: Bladder S can Patient PVR recorded: 0 mL LUCIAN Rodriguez documented in this encounter [facility] 12-18-2023 History of Present illness Narrative Images from the original note were not included. [facility] DEPARTMENT OF VASCULAR SURGERY OUTPATIENT VISIT DATE December 18, 2023 OUTPATIENT VISIT TYPE CONSULTATION SERVICE DATE: 12/18/2023 SERVICE TIME: 8:49 AM PRIMARY CARE PHYSICIAN: No primary care provider on file. CHIEF COMPLAINT: Nutcracker Syndrome HISTORY OF PRESENT ILLNESS: Karen Zadii is a 68 year old female who [...] elevating her legs. with PMH significant for Wrangell Syndrome, jugular vein stenosis (asymptomatic), HLD, nutcracker [...] due to technical problems in the laborer aquatic life. Venous duplex US - UE 07/18/23: - [...] (FLONASE) 50 mcg/actuation nasal spray Use 1 Cutler in the nose as needed for cold/allergy [...] TIME: 8:49 AM documented in this encounter [facility] 12-12-2023 Miscellaneous Notes Appt scheduled 12/18/23 [...] she can be scheduled appropriately. Estephania Mojica Regional Commercial Sales Manager documented in this encounter [facility] 12-02-2023 History of Present illness Narrative [facility] [address] [facility], [address] [facility] [address] SUBJECTIVE: Patient ID (1955): Karen Zaidi is [...] History: Diagnosis Date AAA (abdominal aortic aneurysm) ([facility]) Angina pectoris ([facility]) Aortic aneurysm ([facility]) Arthritis Cataract Chest pain Chronic kidney disease stone Chronic rhinitis Coronary artery disease Dental disease implants Dizziness Dysphagia, pharyngeal phase Wrangell's syndrome Fractures left arm 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 Osteoporosis Pelvic congestion syndrome Peripheral vascular disease ([facility]) Seasonal allergies Submandibular gland swelling 11/12/2023 Visual impairment glasses Past Surgical History: Procedure Laterality Date CATARACT EXTRACTION Bilateral 2018 CHOLECYSTECTOMY COLONOSCOPY COLONOSCOPY N/A 07/23/2018 Performed by Orquidea Christine DO at [facility] 07/2013 implants Diagnostic cerebral angiogram N/A 03/31/2020 Performed by Melissa Morillo MD at [facility] CARDIAC CATH LABS DIAGNOSTIC VENOGRAM OF IVC AND ILEOCABLE, LEFT RENAL VEIN, SELECTIVE LEFT OVARIAN VEIN CONTRAST AND IVUS VENOGRAMS N/A 07/25/2023 Performed by Erendira Armijo DO at [facility] SPECIAL PROC dilation rt submandibular duct and steroid irrigation Right 11/24/2023 Performed by Sarah Godwin MD at [facility] KIDNEY STONE SURGERY 2019? KNEE CARTILAGE SURGERY MOLE REMOVAL 11/10/2023 right breast OTHER SURGICAL HISTORY 08/31/2020 cranial base ( cranial styloidectomy) 05/2020 also OTHER SURGICAL HISTORY 06/18/2023 venogram OTHER SURGICAL HISTORY 09/09/2023 DIagnostic venogram TUBAL LIGATION Vascular Invasive Diagnostic venogram with IVUS and the ability to measure pressure gradients Bilateral 06/18/2023 Performed by Erendira Armijo DO at [facility] CARDIAC CATH LABS Family History [...] this chart were generated using voice recognition [employer] dictation software. Although every effort was made to ensure the accuracy of this automated rod finisher, some errors in rod finisher may have occurred. Matthew Ramirez PA-C 12/02/23 1258 documented in this encounter [facility] 11-20-2023 Miscellaneous Notes PATIENT NOTIFIED WITH SURGERY TIME OF 12:15 . TOLD TO ARRIVE 2 HOURS PRIOR. documented in this encounter [facility] 11-20-2023 Telephone encounter Note PATIENT NOTIFIED WITH SURGERY TIME OF 12:15 . TOLD TO ARRIVE 2 HOURS PRIOR. [facility] 11-12-2023 History and physical note PRE-ADMISSION TESTING HISTORY AND PHYSICAL EXAM DATE: 11/12/23 PCP: AMMON LUCAS MD HISTORY OF PRESENT ILLNESS: Karen Zaidi, a 68 y.o. White or female, presents to [facility] for a pre-surgical H&P. The patient has been diagnosed with Submandibular gland swelling [R60.0] . 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 De Leon at [place]. 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 Osteoporosis Pelvic congestion syndrome Peripheral vascular disease ([facility]) Seasonal allergies Submandibular gland swelling 11/12/2023 Visual impairment glasses PAST SURGICAL HISTORY: Past Surgical History: Procedure Laterality Date CATARACT EXTRACTION Bilateral 2018 CHOLECYSTECTOMY COLONOSCOPY COLONOSCOPY N/A 07/23/2018 Performed by Orquidea Christine DO at [facility] 07/2013 implants Diagnostic cerebral angiogram N/A 03/31/2020 Performed by Melissa Morillo MD at [facility] CARDIAC CATH LABS DIAGNOSTIC VENOGRAM OF IVC AND ILEOCABLE, LEFT RENAL VEIN, SELECTIVE LEFT OVARIAN VEIN CONTRAST AND IVUS VENOGRAMS N/A 07/25/2023 Performed by Erendira Armijo DO at [facility] SPECIAL PROC KIDNEY STONE SURGERY 2019? KNEE CARTILAGE SURGERY MOLE REMOVAL 11/10/2023 right breast OTHER SURGICAL HISTORY 08/31/2020 cranial base ( cranial styloidectomy) 05/2020 also OTHER SURGICAL HISTORY 06/18/2023 venogram OTHER SURGICAL HISTORY 09/09/2023 DIagnostic venogram TUBAL LIGATION Vascular Invasive Diagnostic venogram with IVUS and the ability to measure pressure gradients Bilateral 06/18/2023 Performed by Erendira Armijo DO at [facility] CARDIAC CATH LABS FAMILY HISTORY: [...] Constitutional: Negative. HENT: Seasonal allergies, chronic rhinitis, Wrangell syndrome Eyes: Negative. Respiratory: Negative for apnea, [...] the most recent lab values available in [facility] at the time of the office visit and additional labs may have been drawn since that time. ASSESSMENT / DIAGNOSIS: Submandibular gland swelling [R60.0] PLAN: Karen Zaidi is scheduled for Linked Surgery: Sialendoscopy Right Submandibular Duct - Right on 11/24/[address] Godwin. Augustina Shi APRN-MARIBEL 11/12/23 1442 [employer] Work Phone: 11-12-2023 History and physical note PRE-ADMISSION TESTING HISTORY AND PHYSICAL EXAM DATE: 11/12/23 PCP: AMMON LUCAS MD HISTORY OF PRESENT ILLNESS: Karen Zaidi, a 68 y.o. White or female, presents to [facility] for a pre-surgical H&P. The patient has been diagnosed with Submandibular gland swelling [R60.0] . 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 De Leon at [place]. 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 Osteoporosis Pelvic congestion syndrome Peripheral vascular disease ([facility]) Seasonal allergies Submandibular gland swelling 11/12/2023 Visual impairment glasses PAST SURGICAL HISTORY: Past Surgical History: Procedure Laterality Date CATARACT EXTRACTION Bilateral 2018 CHOLECYSTECTOMY COLONOSCOPY COLONOSCOPY N/A 07/23/2018 Performed by Orquidea Christine DO at [facility] 07/2013 implants Diagnostic cerebral angiogram N/A 03/31/2020 Performed by Melissa Morillo MD at [facility] CARDIAC CATH LABS DIAGNOSTIC VENOGRAM OF IVC AND ILEOCABLE, LEFT RENAL VEIN, SELECTIVE LEFT OVARIAN VEIN CONTRAST AND IVUS VENOGRAMS N/A 07/25/2023 Performed by Erendira Armijo DO at [facility] SPECIAL PROC KIDNEY STONE SURGERY 2019? KNEE CARTILAGE SURGERY MOLE REMOVAL 11/10/2023 right breast OTHER SURGICAL HISTORY 08/31/2020 cranial base ( cranial styloidectomy) 05/2020 also OTHER SURGICAL HISTORY 06/18/2023 venogram OTHER SURGICAL HISTORY 09/09/2023 DIagnostic venogram TUBAL LIGATION Vascular Invasive Diagnostic venogram with IVUS and the ability to measure pressure gradients Bilateral 06/18/2023 Performed by Erendira Armijo DO at [facility] CARDIAC CATH LABS FAMILY HISTORY: [...] Constitutional: Negative. HENT: Seasonal allergies, chronic rhinitis, Wrangell syndrome Eyes: Negative. Respiratory: Negative for apnea, [...] the most recent lab values available in [facility] at the time of the office visit and additional labs may have been drawn since that time. ASSESSMENT / DIAGNOSIS: Submandibular gland swelling [R60.0] PLAN: Karen Zaidi is scheduled for Linked Surgery: Sialendoscopy Right Submandibular Duct - Right on 11/24/[address] Godwin. ED Jean 11/12/23 [id number] documented in this encounter [facility] 11-12-2023 Instructions Marielle Rivero RN - 11/12/2023 1:15 PM EST Your surgery/procedure is scheduled at [facility] on 11/24/2011 at per surgeon Arrival Timeper surgeon [facility] Address: [address] [place] [address] in [address]ing lot located on [facility] [place]. Report to the Entrance B. Check in at the information desk the surgery. The waiting room located on the second floor. If you have any questions prior to surgery, please call Pre-Admission Clinic at [phone] between 7:30 am and 4:30 pm Friday through Friday. If you have questions the morning of surgery, please call the Pre-op Department at [phone]. PLEASE FOLLOW THESE INSTRUCTIONS OR YOUR SURGERY [...] would like to schedule therapy at a [facility] facility, please call [phone] ([phone]). Do not use lotions, creams, powders, perfume, make up, cologne or after-shaves day of surgery. Remove ALL jewelry including wedding rings, body piercings,hair extensions that contain metal, nail wolof, make-up, and contact lens. You may brush [...] RIGHTS AND RESPONSIBILITIES As a patient at [facility], you have the right to: Receive medical care and be informed of who is taking care of you Be treated with dignity and respect Have a family member/telemarketing representative of choice and your physician notified of your admission Receive information and actively participate in decisions about your care and treatment Refuse care, treatment and services Decide who may provide your support and speak for you Access jain and spiritual services Participate in ethical issues [...] of hospital charges and payment methods Patient/patient telemarketing representative responsibilities are to: Provide information about [...] promptly as possible documented in this encounter [facility] 10-08-2023 Evaluation note Encounter Date Diagnosis Assessment Notes Sep, Abnormal chest CT (ICD-10 - R93.89) [employer] Other 12-19-2023 History of Present illness Narrative* Sarah Godwin MD - 09/30/2023 3:15 PM EST [facility] [address] [place] [address], [address] [place] [phone] SUBJECTIVE: Patient ID: Karen Zaidi is a [...] submandibular glands. She has a history of Wrangell Syndrome after bilateral surgery performed by Dr. De Leon at [place]. She states that she still had intermittent [...] rhinitis Dental disease implants Dysphagia, pharyngeal phase Wrangell's syndrome Fractures left arm Headache Jugular vein [...] 03/31/2020 Performed by Melissa Morillo MD at [facility] CARDIAC CATH LABS DIAGNOSTIC VENOGRAM OF IVC AND ILEOCABLE, LEFT RENAL VEIN, SELECTIVE LEFT OVARIAN VEIN CONTRAST ANDIVUS VENOGRAMS N/A 07/25/2023 Performed by Erendira Armijo DO at [facility] SPECIAL PROC KIDNEY STONE SURGERY 2018? KNEE CARTILAGE SURGERY OTHER SURGICAL HISTORY 08/31/2020 cranial base ( cranial styloidectomy) 05/2020 also OTHER SURGICAL HISTORY 06/18/2023 venogram TUBAL LIGATION Vascular Invasive Diagnostic venogram with IVUS and the ability to measure pressure gradients Bilateral 06/18/2023 Performed by Erendira Armijo DO at [facility] CARDIAC CATH LABS Family History [...] nodules or obtain referral to a local russian language professor from her PCP. We discussed endoscopic surgical intervention involving endoscoping approach to the right Grayland'sduct for dilation and steroid irrigation and for assessment for any other abnormalities. I recommended right sialendoscopy for therapeutic dilation of the Warthin's duct on the right and possible stone retrieval and infiltration of steroid. Indications, risks, benefits, and alternatives were discussed. Patient may call [facility] at [phone] to schedule surgery. We discussed that she may benefit from physical therapy for the right temporomandibular joint. Follow up post op. The patient will contact my office if there are any additional questions or concerns: . Non-emergent messages received through [employer] may take up to 2 business days [...] this chart were generated using voice recognition [employer] dictation software. Although every effort was made to ensure the accuracy of this automated rod finisher, some errors in rod finisher may have occurred. documented in this encounterMayo Memorial HospitalDancingAnchovy12-19-2023 Instructions* Patient Instructions* Deandre Goodwin - 09/30/2023 [...] were discussed. Patient may call [facility] at [phone] to schedule surgery. We discussed that she may benefit from physical therapy for the right temporomandibular joint. Follow up post op. The patient will contact my office if there are any additional questions or concerns: . Non-emergent messages received through [employer] may take up to 2 business days for a response. documented in this encounterMayo Memorial HospitalNexxo Financial [id number] Evaluation note* Encounter Date Diagnosis Assessment Notes Treatment Notes Treatment Clinical Notes Aug, Pelvic congestion syndrome (ICD-10 - N94.89) Referral entered as pt request. Aug, Renal vein occlusion (ICD-10 - I82.3) Referral entered to Dr. Camp. [employer] Other [id number] Miscellaneous Notes* Telephone Encounter - Shanda Mays [...] would like to re-schedule an appointment with [facility] and cell number: [phone] Diagnosis: pelvic congestion syndrome - renal vein stenosis Kind Regards, Laura Terfous [facility] Evaluation note* Encounter Date Diagnosis Assessment [...] Weight loss noted, encouraged small frequent meals. [employer] Other 09-20-2023 Evaluation note* Encounter Date Diagnosis Assessment Notes Treatment Notes Treatment Clinical Notes Jun, Neuropathic pain (ICD-10 - M79.2) Previously on med. 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 Declines referral back to ENT for potential R PE tube. Discussed nasal spray and OTC decongestants that could help discomfort. [employer] Other 08-25-2023 Evaluation note* Encounter Date Diagnosis Assessment Notes Treatment Notes Treatment Clinical Notes May, Thrush (ICD-10 - B37.0) Finish nystatin as prescribed May, Abdominal 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, unspecified part (ICD-10 - I71.40) Continue screening a [employer]. [employer] Other 08-17-2023 Evaluation note* Encounter Date Diagnosis [...] understanding and is agreeable to treatment plan [employer] Other 05-02-2023 Evaluation note* Encounter Date Diagnosis [...] understanding and is agreeable with treatment plan. [employer] Other 05-02-2023 Evaluation note* Encounter Date Diagnosis Assessment Notes Treatment Notes Treatment Clinical Notes February, Nephrolithiasis (ICD-10 - N20.0) Discussed differential - agrees to imaging and She is established with Dr. Monroe. They advised she go to ER or come here for imaging and assessment. [employer] Other 02-10-2023 Evaluation note* Encounter Date Diagnosis [...] understanding and is agreeable to treatment plan [employer] Other 01-19-2023 Evaluation note* Encounter Date Diagnosis Assessment Notes Treatment Notes Treatment Clinical Notes Oct, Allergic reaction, subsequent encounter (ICD-10 - T78.40XD) Karen Hunter [employer] Other 10-16-2022 Evaluation note* Encounter Date Diagnosis [...] understanding and is agreeable to treatment plan [employer] Other 12-03-2021 Evaluation note* Encounter Date Diagnosis Assessment Notes Treatment Notes Treatment Clinical Notes Sep, Herpes zoster without complication (ICD-10 - B02.9) Take the valacyclovir as prescribed until gone. Use the viscous lidocaine to the rash as needed for pain. Follow-up with your family physician if no improvement in 2 to 3 days. [employer] Other 10-17-2021 Evaluation note* Encounter Date Diagnosis Assessment Notes Treatment Notes Treatment Clinical Notes Jul, Herpes zoster without complication (ICD-10 - B02.9) [employer] Other Evaluation noteNo [employer] Other Evaluation note* Diagnosis Nutcracker phenomenon of renal vein- Primary documented [facility]* Diagnosis Nutcracker phenomenon of renal vein- Primary Family history of aneurysm Family history of other condition Aortic ectasia, abdominal (HCC) Abdominal aortic ectasia documented in this encounter [facility]* Diagnosis Nutcracker phenomenon of renal vein- Primary Preop testing Preoperative examination, unspecified Nutcracker phenomenon of renal vein Preop testing Preoperative examination, unspecified [facility]* Diagnosis 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 Preop testing Preoperative examination, unspecified documented in this encounter [facility]* Diagnosis Screening for genitourinary condition Screening for other and unspecified genitourinary condition Nutcracker phenomenon of renal vein Preop testing Preoperative examination, unspecified documented in this encounter [facility]* Diagnosis Screening for genitourinary condition Screening for other and unspecified genitourinary condition Nutcracker phenomenon of renal vein Preop testing Preoperative examination, unspecified documented in this encounter [facility]* Diagnosis Nutcracker phenomenon of renal vein- Primary Abnormal coagulation profile Nutcracker phenomenon of renal vein documented in this encounter [facility]* Diagnosis Preop examination- Primary Preoperative examination, unspecified 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 documented in this encounter [facility]* Diagnosis Encounter for aftercare following kidney transplant- Primary Aftercare following organ transplant Malnutrition of moderate degree (HCC) Malnutrition of moderate degree documented in this encounter [facility]* Diagnosis Flank pain- Primary Abdominal pain, unspecified site documented in this encounter [facility]* Diagnosis Preop examination- Primary Preoperative examination, unspecified 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 Other disorder of muscle, ligament, and fascia Other hyperlipidemia Ovarian varices Nutcracker phenomenon of renal vein Narcotic drug use Sinus bradycardia on ECG Other specified cardiac dysrhythmias Screening for genitourinary condition Screening for other and unspecified genitourinary condition documented in this encounter [facility]* Diagnosis Preop examination- Primary Preoperative examination, unspecified 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 Other disorder of muscle, ligament, and fascia Other hyperlipidemia Ovarian varices Nutcracker phenomenon of renal vein Narcotic drug use Sinus bradycardia on ECG Other specified cardiac dysrhythmias High-tone pelvic floor dysfunction- Primary Other specified disorders of female genital organs 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 Unspecified symptom associated with female genital organs documented in this encounter [facility]* Diagnosis Preop examination- Primary Preoperative examination, unspecified 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 Other disorder of muscle, ligament, and [...] and myositis, unspecified documented in this encounter [facility]* Diagnosis Preop examination- Primary Preoperative examination, unspecified 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 Other disorder of muscle, ligament, and fascia Other hyperlipidemia Ovarian varices Nutcracker phenomenon of renal vein Narcotic drug use Sinus bradycardia on ECG Other specified cardiac dysrhythmias High-tone pelvic floor dysfunction Other specified disorders of female genital organs documented in this encounter [facility]* Diagnosis Preop examination- Primary Preoperative examination, unspecified 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 Other disorder of muscle, ligament, and fascia Other hyperlipidemia Ovarian varices Nutcracker phenomenon of renal vein Narcotic drug use Sinus bradycardia on ECG Other specified cardiac dysrhythmias High-tone pelvic floor dysfunction- Primary Other specified disorders of female genital organs documented in this encounter [facility]* Diagnosis Preop examination- Primary Preoperative examination, unspecified 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 Other disorder of muscle, ligament, and fascia Other hyperlipidemia Ovarian varices Nutcracker phenomenon of renal vein Narcotic drug use Sinus bradycardia on ECG Other specified cardiac dysrhythmias High-tone pelvic floor dysfunction Other specified disorders of female genital organs documented in this encounter [facility]* Diagnosis Preop examination- Primary Preoperative examination, unspecified 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 Other disorder of muscle, ligament, and fascia Other hyperlipidemia Ovarian varices Nutcracker phenomenon of renal vein Narcotic drug use Sinus bradycardia on ECG Other specified cardiac dysrhythmias Pelvic pain in female- Primary Unspecified symptom associated with female genital organs documented in this encounter [facility]* Diagnosis Pulmonary nodule- Primary Other diseases of lung, not elsewhere classified [facility]* Diagnosis Preop examination- Primary Preoperative examination, unspecified 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 Other disorder of muscle, ligament, and fascia Other hyperlipidemia Ovarian varices Nutcracker phenomenon of renal vein Narcotic drug use Sinus bradycardia on ECG Other specified cardiac dysrhythmias Abnormal finding of diagnostic imaging- Primary Other nonspecific (abnormal) findings on radiological and other examinations of body structure documented in this encounter [facility]* Diagnosis Submandibular gland swelling- Primary Chronic sialoadenitis Sensorineural hearing loss (SNHL), bilateral [facility] Diagnosis Chronic sialoadenitis- Primary [facility] Diagnosis Submandibular gland swelling Chronic sialoadenitis Preop testing- Primary Unspecified pre-operative examination Hearing disorder retrocochlear Unspecified sensorineural hearing loss Submandibular gland swelling Chronic sialoadenitis documented [facility]* Diagnosis Submandibular gland swelling- Primary Chronic sialoadenitis documented [facility]* Diagnosis Hyperlipidemia, unspecified hyperlipidemia type- Primary documented [facility]* Diagnosis Well woman exam with routine gynecological exam Routine gynecological examination Breast cancer screening by mammogram Postmenopausal state Asymptomatic postmenopausal status (age-related) (natural) documented in this encounter [facility]* Diagnosis Preop examination- Primary Preoperative examination, unspecified 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 Other disorder of muscle, ligament, and fascia Other hyperlipidemia Ovarian varices Nutcracker phenomenon of renal vein Narcotic drug use Sinus bradycardia on ECG Other specified cardiac dysrhythmias High-tone pelvic floor dysfunction- Primary Other specified disorders of female genital organs Trigger point of abdomen Myalgia, other site Other osteoporosis without current pathological fracture documented in this encounter [facility]* Diagnosis Preop examination- Primary Preoperative examination, unspecified 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 Other disorder of muscle, ligament, and fascia Other hyperlipidemia Ovarian varices Nutcracker phenomenon of renal vein Narcotic drug use Sinus bradycardia on ECG Other specified cardiac dysrhythmias Primary osteoarthritis of right knee Primary localized osteoarthrosis, lower leg Derangement of unsp meniscus due to old tear/inj, right knee documented in this encounter [facility]* Diagnosis Preop examination- Primary Preoperative examination, unspecified 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 Other disorder of muscle, ligament, and fascia Other hyperlipidemia Ovarian varices Nutcracker phenomenon of renal vein Narcotic drug use Sinus bradycardia on ECG Other specified cardiac dysrhythmias Osteoporosis, post-menopausal- Primary Senile osteoporosis Coronary artery disease involving [place] coronary artery of [place] heart without angina pectoris Family history of [...] Other specified counseling [facility]* Diagnosis Preop examination- Primary Preoperative examination, unspecified 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 Other disorder of muscle, ligament, and fascia Other hyperlipidemia Ovarian varices Nutcracker phenomenon of renal vein Narcotic drug use Sinus bradycardia on ECG Other specified cardiac dysrhythmias High-tone pelvic floor dysfunction- Primary Other specified disorders of female genital organs Trigger point of abdomen Myalgia, other site documented in this encounter [facility]* Diagnosis Preop examination- Primary Preoperative examination, unspecified 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 Other disorder of muscle, ligament, and fascia Other hyperlipidemia Ovarian varices Nutcracker phenomenon of renal vein Narcotic drug use Sinus bradycardia on ECG Other specified cardiac dysrhythmias Vitamin B12 deficiency- Primary Other B-complex deficiencies Heart disease, unspecified documented in this encounter [facility]* Diagnosis Preop examination- Primary Preoperative examination, unspecified 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 Other disorder of muscle, ligament, and fascia Other hyperlipidemia Ovarian varices Nutcracker phenomenon of renal vein Narcotic drug use Sinus bradycardia on ECG Other specified cardiac dysrhythmias Primary osteoarthritis of right knee- Primary Primary localized osteoarthrosis, lower leg documented in this encounter [facility]* Diagnosis Pulmonary nodule- Primary Other diseases of lung, not elsewhere classified documented in this encounter [facility] noteNo assessment information availableFirMercy Health [facility]erm[facility] Hospital Work Phone: Hisczhy general Narrative - Reported* Type Description Date Medical History Other seasonal allergic rhinitis Medical History ute syndrome Surgical History cholecystectomy Surgical History arthroscopic knee surgery Surgical History oral surgery Surgical History colonoscopy Surgical History tubal ligation Surgical History styloidectomy Hospitalization History see above [employer] Other [place] general Narrative - Reported* Type Description Date Medical History Other seasonal allergic rhinitis Medical History ute syndrome Medical History shingles Surgical History cholecystectomy Surgical History arthroscopic knee surgery Surgical History oral surgery Surgical History colonoscopy Surgical History tubal ligation Surgical History styloidectomy Hospitalization History see above [employer] Other Hiszldu general Narrative - Reported* Type Description Date Medical History Other seasonal allergic rhinitis Medical History ute syndrome Medical History shingles Medical History Renal stone Surgical History cholecystectomy Surgical History arthroscopic knee surgery Surgical History oral surgery Surgical History colonoscopy Surgical History tubal ligation Surgical History styloidectomy b/l Hospitalization History see above [employer] Other History general Narrative - Reported* Type Description Date Medical History Other seasonal allergic rhinitis Medical History ute syndrome Medical History shingles Medical History Renal stone Medical History Pelvic venous congestive syndrom e Surgical History cholecystectomy Surgical History arthroscopic knee surgery Surgical History oral surgery Surgical History colonoscopy Surgical History tubal ligation Surgical History styloidectomy b/l Hospitalization History see above [employer] Other Hisjetr general Narrative - Reported* Type Description Date Medical History Other seasonal allergic rhinitis Medical History ute syndrome Medical History shingles Medical History Renal stone Medical History Pelvic venous congestive syndrom e Surgical History cholecystectomy Surgical History arthroscopic knee surgery Surgical History oral surgery Surgical History colonoscopy Surgical History tubal ligation Surgical History styloidectomy b/l Surgical History Venogram Hospitalization History see above [employer] Other InstructionsNot on filedocumented in this encounter [facility] filedocumented in this encounter [facility] System[facility]ructionsNot on filedocumented in this encounter [facility] (narrative)* Outpatient Procedure (Routine) - Authorized Specialty Diagnoses / Procedures Referred By Nori moore Referred To Contact [facility] [place] Diagnoses Nutcracker phenomenon of renal vein Procedures US RENAL ARTERY [facility] LAB DUP-SCAN ARTL STEVAN ABDL/PEL/SCROT&/RPR ORGN COM Rina Fox MD [address] [place] [address] [facility] [place] [address] [address] Referral ID Status Reason Start Date Expiration Date Visits Requested Visits Authorized [id number] Authorized Auto-Generat ed Referral 12/12/2023 12/11/2024 1 1 [facility] for referral (narrative)* Outpatient Procedure (Routine) - Authorized Specialty Diagnoses / Procedures Referred By Nori moore Referred To Contact [facility] [place] Diagnoses Nutcracker phenomenon of renal vein Procedures US RENAL VENOUS ALYSON VAS LAB DUP-SCAN ARTL STEVAN ABDL/PEL/SCROT&/RPR ORGN COM Rina Fox MD [address] [place] [address] [place] [id number] Referral ID Status Reason Start Date Expiration Date Visits Requested Visits Authorized [id number] Authorized Auto-Generat ed Referral 12/17/2023 12/16/2024 1 1 [facility] for referral (narrative)* Outpatient Procedure (Routine) - Authorized Specialty Diagnoses / Procedures Referred By Contac t Referred To Contact [facility] [place] Diagnoses Nutcracker phenomenon of renal vein Procedures US VENOUS INCOMPETENCY [facility] VAS LAB DUP-SCAN XTR VEINS COMPLETE BILATERAL STUDY Rina Fox MD [address] [place] [address]. [place] [id number] [place] [address] Referral ID Status Reason Start Date Expiration Date Visits Requested Visits Authorized [id number] Authorized Auto-Generat ed Referral 12/17/2023 12/16/2024 1 1 [facility] for referral (narrative)* Outpatient Procedure (Routine) - Authorized Specialty Diagnoses / Procedures Referred By Contjoo t Referred To Contact [facility] Diagnoses Nutcracker phenomenon of renal vein Preop testing Procedures ECG COMPLETE ECG ROUTINE ECG W/LEAST 12 LDS W/I&R Kira Eduardo APRN.CNP [address] [place] [address] [place] [address] Referral ID Status Reason Start Date Expiration Date Visits Requested Visits Authorized [id number] Authorized Auto-Generat ed Referral 12/19/2023 12/18/2024 1 1 [facility] for referral (narrative)No reason for referral [facility] Phone: Reason for visit Narrative* Consult, Test, Treat (Routine) - Closed Specialty Diagnoses / Procedures Referred By Contac t Referred To Contact Orthopedics Diagnoses Primary osteoarthritis of right knee Derangement of unsp meniscus due to old tear/inj, right knee Procedures CONSULT PANEL TO ORTHOPAEDICS OFFICE/OUTPATIENT [facility] 60 MINUTES Gi Siddiqi MD [address] [place] [address] Phone: tel: fax: Referral ID Status Reason Start Date Expiration Date V isits Requested Visits Authorized [id number] Closed PCP Requested Referral 02/02/2025 02/02/2026 1 1 [facility] Summary Purpose Family History No Family [...] 12 lead Ibis Rodriguez MD [address] [facility], [address] [place] [address] Referral ID Status Reason Start Date Expiration Date V isits Requested Visits Authorized [id number] Pending Review 11/12/2023 11/11/2024 1 1 Specialty Diagnoses / Procedures Referred By Contac t Referred To Contact Diagnoses Pulmonary nodule Procedures CT chest wo IV contrast Dania Steven DO [address] [place] [address] Referral ID Status Reason Start Date Expiration Date V isits Requested Visits Authorized [id number] Pending Review 05/02/2025 10/29/2025 1 1 Specialty Diagnoses / Procedures Referred By Contac t Referred To Contact [facility] Diagnoses High-tone pelvic floor dysfunction Augustina Vargas MD [address] [place] [address] [facility] [address] [place] [address] Referral ID Status Reason Start Date Expiration Date V isits Requested Visits Authorized [id number] Authorized 05/28/2024 08/26/2024 1 1 Specialty Diagnoses / Procedures Referred By Contac t Referred To Contact [facility] Diagnoses High-tone pelvic floor dysfunction Procedures CONSULT TO PHYSICAL THERAPY PHYSICAL THERAPY EVALUATION HIGH COMPLEX 45 MINS Augustina Vargas MD [address] [place] [phone] [facility] [place] [address] Referral ID Status Reason Start Date Expiration Date Visits Requested Visits Authorized [id number] Authorized PCP Requested Referral Auto-Generate d Referral 05/27/2024 05/27/2025 99 99 Specialty Diagnoses / Procedures Referred By Contac t Referred To Contact Diagnoses High-tone pelvic [place] [address] [place], [place] [id number] Referral ID Status Reason Start Date Expiration Date Visits Re quested Visits Authorized [id number] Closed 1 1 Specialty Diagnoses / Procedures Referred By Contac t Referred To Contact Diagnoses Nutcracker phenomenon of renal vein Procedures REFER TO PACC - PRE ANESTHESIA CONSULTATION CLINIC OFFICE/OUTPATIENT NEW [facility] 60 [place] [address] [place], [place] [id number] Referral ID Status Reason Start Date Expiration Date Visits Requested Visits Authorized [id number] Authorized PCP Requested Referral 02/25/2024 12/29/2024 1 1 Specialty Diagnoses / Procedures Referred By Contac t Referred [facility] Diagnoses Nutcracker phenomenon of renal vein Procedures ECG COMPLETE ECG ROUTINE ECG W/LEAST 12 LDS W/I&[place] [address] [place] [address] [facility] [address] [place] [address] Referral ID Status Reason Start Date Expiration Date Visits Requested Visits Authorized [id number] Pending Review Auto-Generat ed Referral 02/25/2024 12/29/2024 1 1 Specialty Diagnoses / Procedures Referred By Contac t Referred To Contact Urology Diagnoses Nutcracker phenomenon of renal vein Procedures CONSULT TO UROLOGY OFFICE/OUTPATIENT [facility] 60 MINUTES Rina Fox MD [address] [place] [address] Referral ID Status Reason Start Date Expiration Date Visits Requested Visits Authorized [id number] Authorized PCP Requested Referral 12/18/2023 12/17/2024 1 1 Reason *FU 10/22 [place] office - abnormal CT of chest, send notes recently from Dr. Godwin. Diagnosis [address] (R 93.89) Referral Organization [facility] [employer] Referring Provider First Name Ammon Referring Provider Last Name Dylon Referring Provider Specialty [facility] [employer] Referred Organization [facility] Referred Provider Dania Steven Referred Address ,[place], [place],[address] Referred Provider Specialty Pulmonary Di seases Referral Priority Routine General Notes Thea Wilson 04:43:51 PM >received today Thea Wilson 10/15/2023 04:45:29 PM >attachments made, notes locked, referral faxed to [place] office Clinical Notes p: [phone] f: [phone] Reason Pt has all records, images with [facility]. Pt has called [facility] and they recommend she start w Dr. Camp for assessment Diagnosis 1 Pelvic congestion sy ndrome (N94.89) Referral Organization [facility] [employer] Referring Provider First Name Ammon Referring Provider Last Name Dylon Referring Provider Specialty [facility] [employer] Referred Organization [facility] Referred Provider Shanell Camp Referred Address [address] [place] [place], [place],[address] Referred Provider Specialty Diagnostic R adiology Referral Priority Routine Reason 12/18/22 @ 2:20 it tiera palms and soles, drug reaction on abd. please send recent derm note with referral. Diagnosis 1 Allergic reaction, s ubsequent encounter (T78.40XD) Referral Organization [facility] [employer] Referring Provider First Name Ammon Referring Provider Last Name Dylon Referring Provider Specialty [facility] [employer] Referred Organization [facility] Referred Provider Will Vega Referred Address ,[place], [place],[address] Referred Provider Specialty Allergy/Immu nology Referral Priority [...] section and content) DATE CREATED AUTHOR 08/08/2018 [facility] DATE CREATED AUTHOR AUTHOR'S ORGANIZ ATION 02/24/2022 [facility] DATE CREATED AUTHOR AUTHOR'S ORGANIZ ATION 02/26/2023 [facility] DATE CREATED AUTHOR AUTHOR'S ORGANIZ ATION 02/18/2024 [facility] DATE CREATED AUTHOR AUTHOR'S ORGANIZ ATION 05/04/2024 [facility] DATE CREATED AUTHOR AUTHOR'S ORGANIZ ATION 07/27/[address] [facility] DATE CREATED AUTHOR AUTHOR'S ORGANIZ ATION 02/03/2025 [facility] DATE CREATED AUTHOR AUTHOR'S ORGANIZ ATION 04/03/2025 [facility] DATE CREATED AUTHOR AUTHOR'S ORGANIZ ATION 05/02/2025 [facility] DATE CREATED AUTHOR AUTHOR'S ORGANIZ ATION 05/10/2025 [facility] DATE CREATED AUTHOR AUTHOR'S ORGANIZ ATION 06/04/2025 [facility] EPIC REASON FOR VISIT (unrecogniz ed section and content) Reason Comments Appointment Reason Comments Patient Question Reason Comments Consult Reason Comments Consult Specialty Diagnoses / Procedures Referred By Nori t Referred To Contact Urology Diagnoses Nutcracker phenomenon of renal vein Procedures CONSULT TO UROLOGY OFFICE/OUTPATIENT [facility] MDM 60 MINUTES Rina Fox MD [address] [place] [address] Referral ID Status Reason Start Date Expiration Date V isits Requested Visits Authorized [id number] Closed PCP Requested Referral 12/18/2023 12/17/2024 1 1 Reason Comments Patient Update Reason Comments Surgery Cancelled Reason Comments Pre-Op Exam Reason Comments Cystoscopy-1 Stent Extraction Reason Comments Follow Up Reason Comments Pelvic Pain Reason Comments botox auth Reason Comments Pelvic Pain Specialty Diagnoses / Procedures Referred By Contac t Referred To Contact [facility] Diagnoses High-tone pelvic floor dysfunction Augustina Vargas MD [address] [phone] [place] [phone] Referral ID Status Reason Start Date Expiration Date Visits Re quested Visits Authorized [id number] Closed 05/28/2024 08/26/2024 1 1 Reason Comments [...] Referred By Contac t Referred To Contact [facility] Augustina Vargas MD [address] [place] [address] Phone: tel: fax: [address] [address] Referral ID Status Reason Start Date Expiration Date Visits Re quested Visits Authorized [id number] Closed 12/08/2024 03/08/2025 1 1 Reason Comments [...] POINT INJECTION Self Augustina Vargas MD [address] [place] [address] Phone: tel: fax: Referral ID Status Reason Start Date Expiration Date Visits Re quested Visits Authorized [id number] Closed 01/27/2025 10/12/2025 1 1 Reason Comments Established Patient Follow Up Specialty Diagnoses / Procedures Referred By Contac t Referred To Contact Orthopedics Diagnoses Primary osteoarthritis of right knee Derangement of unsp meniscus due to old tear/inj, right knee Procedures CONSULT PANEL TO ORTHOPAEDICS OFFICE/OUTPATIENT [facility] 60 MINUTES Gi Siddiqi MD [address] [place] [address] Phone: tel: fax: Referral ID Status Reason Start Date Expiration Date V isits Requested Visits Authorized [id number] Closed PCP Requested Referral 02/02/2025 02/02/2026 1 1 Source Comments (unrecognize d section and content) In the event this informatio n is protected by the Federal Confidentiality of Alcohol and Drug Abuse Patient Records regulations: The Federal rules restrict any use of the information to criminally investigate or prosecute any alcohol or drug abuse patient.[facility] the event this information is protected by the Federal Confidentiality of Alcohol and Drug Abuse Patient Records regulations: The Federal rules restrict any use of the information to criminally investigate or prosecute any alcohol or drug abuse patient.[facility] Hospital[facility] the event this information is protected by the Federal Confidentiality of Alcohol and Drug Abuse Patient Records regulations: The Federal rules restrict any use of the information to criminally investigate or prosecute any alcohol or drug abuse patient.[facility] HospitalIn the event this information is protected by the Federal Confidentiality of Alcohol and Drug Abuse Patient Records regulations: The Federal rules restrict any use of the information to criminally investigate or prosecute any alcohol or drug abuse patient.[facility] HospitalIn the event this information is protected by the Federal Confidentiality of Alcohol and Drug Abuse Patient Records regulations: The Federal rules restrict any use of the information to criminally investigate or prosecute any alcohol or drug abuse patient.[facility] Hospital[facility] the event this information is protected by the Federal Confidentiality of Alcohol and Drug Abuse Patient Records regulations: The Federal rules restrict any use of the information to criminally investigate or prosecute any alcohol or drug abuse patient.[facility] HospitalIn the event this information is protected by the Federal Confidentiality of Alcohol and Drug Abuse Patient Records regulations: The Federal rules restrict any use of the information to criminally investigate or prosecute any alcohol or drug abuse patient.[facility] HospitalIn the event this information is protected by the Federal Confidentiality of Alcohol and Drug Abuse Patient Records regulations: The Federal rules restrict any use of the information to criminally investigate or prosecute any alcohol or drug abuse patient.[facility] HospitalIn the event this information is protected by the Federal Confidentiality of Alcohol and Drug Abuse Patient Records regulations: The Federal rules restrict any use of the information to criminally investigate or prosecute any alcohol or drug abuse patient.[facility] HospitalIn the event this information is protected by the Federal Confidentiality of Alcohol and Drug Abuse Patient Records regulations: The Federal rules restrict any use of the information to criminally investigate or prosecute any alcohol or drug abuse patient.[facility] HospitalIn the event this information is protected by the Federal Confidentiality of Alcohol and Drug Abuse Patient Records regulations: The Federal rules restrict any use of the information to criminally investigate or prosecute any alcohol or drug abuse patient.[facility] HospitalIn the event this information is protected by the Federal Confidentiality of Alcohol and Drug Abuse Patient Records regulations: The Federal rules restrict any use of the information to criminally investigate or prosecute any alcohol or drug abuse patient.[facility] HospitalIn the event this information is protected by the Federal Confidentiality of Alcohol and Drug Abuse Patient Records regulations: The Federal rules restrict any use of the information to criminally investigate or prosecute any alcohol or drug abuse patient.[facility] HospitalIn the event this information is protected by the Federal Confidentiality of Alcohol and Drug Abuse Patient Records regulations: The Federal rules restrict any use of the information to criminally investigate or prosecute any alcohol or drug abuse patient.[facility] HospitalIn the event this information is protected by the Federal Confidentiality of Alcohol and Drug Abuse Patient Records regulations: The Federal rules restrict any use of the information to criminally investigate or prosecute any alcohol or drug abuse patient.[facility] HospitalIn the event this information is protected by the Federal Confidentiality of Alcohol and Drug Abuse Patient Records regulations: The Federal rules restrict any use of the information to criminally investigate or prosecute any alcohol or drug abuse patient.[facility] HospitalIn the event this information is protected by the Federal Confidentiality of Alcohol and Drug Abuse Patient Records regulations: The Federal rules restrict any use of the information to criminally investigate or prosecute any alcohol or drug abuse patient.[facility] HospitalIn the event this information is protected by the Federal Confidentiality of Alcohol and Drug Abuse Patient Records regulations: The Federal rules restrict any use of the information to criminally investigate or prosecute any alcohol or drug abuse patient.[facility] HospitalIn the event this information is protected by the Federal Confidentiality of Alcohol and Drug Abuse Patient Records regulations: The Federal rules restrict any use of the information to criminally investigate or prosecute any alcohol or drug abuse patient.[facility] HospitalIn the event this information is protected by the Federal Confidentiality of Alcohol and Drug Abuse Patient Records regulations: The Federal rules restrict any use of the information to criminally investigate or prosecute any alcohol or drug abuse patient.[facility] HospitalIn the event this information is protected by the Federal Confidentiality of Alcohol and Drug Abuse Patient Records regulations: The Federal rules restrict any use of the information to criminally investigate or prosecute any alcohol or drug abuse patient.[facility] HospitalIn the event this information is protected by the Federal Confidentiality of Alcohol and Drug Abuse Patient Records regulations: The Federal rules restrict any use of the information to criminally investigate or prosecute any alcohol or drug abuse patient.[facility] HospitalIn the event this information is protected by the Federal Confidentiality of Alcohol and Drug Abuse Patient Records regulations: The Federal rules restrict any use of the information to criminally investigate or prosecute any alcohol or drug abuse patient.[facility] HospitalIn the event this information is protected by the Federal Confidentiality of Alcohol and Drug Abuse Patient Records regulations: The Federal rules restrict any use of the information to criminally investigate or prosecute any alcohol or drug abuse patient.[facility] HospitalIn the event this information is protected by the Federal Confidentiality of Alcohol and Drug Abuse Patient Records regulations: The Federal rules restrict any use of the information to criminally investigate or prosecute any alcohol or drug abuse patient.[facility] HospitalIn the event this information is protected by the Federal Confidentiality of Alcohol and Drug Abuse Patient Records regulations: The Federal rules restrict any use of the information to criminally investigate or prosecute any alcohol or drug abuse patient.[facility] HospitalIn the event this information is protected by the Federal Confidentiality of Alcohol and Drug Abuse Patient Records regulations: The Federal rules restrict any use of the information to criminally investigate or prosecute any alcohol or drug abuse patient.[facility] HospitalIn the event this information is protected by the Federal Confidentiality of Alcohol and Drug Abuse Patient Records regulations: The Federal rules restrict any use of the information to criminally investigate or prosecute any alcohol or drug abuse patient.[facility] HospitalIn the event this information is protected by the Federal Confidentiality of Alcohol and Drug Abuse Patient Records regulations: The Federal rules restrict any use of the information to criminally investigate or prosecute any alcohol or drug abuse patient.[facility] HospitalIn the event this information is protected by the Federal Confidentiality of Alcohol and Drug Abuse Patient Records regulations: The Federal rules restrict any use of the information to criminally investigate or prosecute any alcohol or drug abuse patient.[facility] HospitalIn the event this information is protected by the Federal Confidentiality of Alcohol and Drug Abuse Patient Records regulations: The Federal rules restrict any use of the information to criminally investigate or prosecute any alcohol or drug abuse patient.[facility] HospitalIn the event this information is protected by the Federal Confidentiality of Alcohol and Drug Abuse Patient Records regulations: The Federal rules restrict any use of the information to criminally investigate or prosecute any alcohol or drug abuse patient.[facility] HospitalIn the event this information is protected by the Federal Confidentiality of Alcohol and Drug Abuse Patient Records regulations: The Federal rules restrict any use of the information to criminally investigate or prosecute any alcohol or drug abuse patient.[facility] HospitalIn the event this information is protected by the Federal Confidentiality of Alcohol and Drug Abuse Patient Records regulations: The Federal rules restrict any use of the information to criminally investigate or prosecute any alcohol or drug abuse patient.[facility] HospitalIn the event this information is protected by the Federal Confidentiality of Alcohol and Drug Abuse Patient Records regulations: The Federal rules restrict any use of the information to criminally investigate or prosecute any alcohol or drug abuse patient.[facility] HospitalIn the event this information is protected by the Federal Confidentiality of Alcohol and Drug Abuse Patient Records regulations: The Federal rules restrict any use of the information to criminally investigate or prosecute any alcohol or drug abuse patient.[facility] the event this information is protected by the Federal Confidentiality of Alcohol and Drug Abuse Patient Records regulations: The Federal rules restrict any use of the information to criminally investigate or prosecute any alcohol or drug abuse patient.[facility] HospitalIn the event this information is protected by the Federal Confidentiality of Alcohol and Drug Abuse Patient Records regulations: The Federal rules restrict any use of the information to criminally investigate or prosecute any alcohol or drug abuse patient.[facility] Hospital[facility] the event this information is protected by the Federal Confidentiality of Alcohol and Drug Abuse Patient Records regulations: The Federal rules restrict any use of the information to criminally investigate or prosecute any alcohol or drug abuse patient.[facility] HospitalIn the event this information is protected by the Federal Confidentiality of Alcohol and Drug Abuse Patient Records regulations: The Federal rules restrict any use of the information to criminally investigate or prosecute any alcohol or drug abuse patient.[facility] HospitalIn the event this information is protected by the Federal Confidentiality of Alcohol and Drug Abuse Patient Records regulations: The Federal rules restrict any use of the information to criminally investigate or prosecute any alcohol or drug abuse patient.[facility] HospitalIn the event this information is protected by the [facility] Confidentiality of Alcohol and Drug Abuse Patient Records regulations: The Federal rules restrict any use of the information to criminally investigate or prosecute any alcohol or drug abuse patient.[facility] HospitalIn the event this information is protected by the Federal Confidentiality of Alcohol and Drug Abuse Patient Records regulations: The Federal rules restrict any use of the information to criminally investigate or prosecute any alcohol or drug abuse patient.[facility] Care Teams (unrecognized sec tion and content) Sole Scraper Relationship Specialty Start Date End Date Ammon Lucas MD [address] [place] [address] Referring Family Medicine 09/08/23 Sole Scraper Relationship Specialty Start Date End Date Ammon Lucas MD [address] [place] [address] Referring Family Medicine 09/08/23 Sole Scraper Relationship Specialty Start Date End Date Ammon Lucas MD [address] [place] [address] PCP - General Family Medicine 12/18/23 Ammon Lucas MD [address] [place] [address] Referring Family Medicine 09/08/23 Sole Scraper Relationship Specialty Start Date End Date Ammon Lucas MD [address] [place] [facility] [address] PCP - General Family Medicine 12/18/23 Ammon Lucas MD [address] [place] [facility] [address] Referring Family Medicine 09/08/23 Sole Scraper Relationship Specialty Start Date End Date Ammon Lucas MD [address] [place] [facility] [address] PCP - General Family Medicine 12/18/23 Ammon Lucas MD [address] [place] [facility] [address] Referring Family Medicine 09/08/23 Sole Scraper Relationship Specialty Start Date End Date Ammon Lucas MD [address] [place] [facility] [address] PCP - General Family Medicine 12/18/23 Ammon Lucas MD [address] [place] [facility] [address] Referring Family Medicine 09/08/23 Sole Scraper Relationship Specialty Start Date End Date Ammon Lucas MD [address] [place] [facility] [address] PCP - General Family Medicine 12/18/23 Ammon Lucas MD [address] [place] [facility] [address] Referring Family Medicine 09/08/23 Sole Scraper Relationship Specialty Start Date End Date Ammon Lucas MD [address] [place] [facility] [address] PCP - General Family Medicine 12/18/23 Ammon Lucas MD [address] [place] [facility] [address] Referring Family Medicine 09/08/23 Sole Scraper Relationship Specialty Start Date End Date Ammon Lucas MD [address] [place] [facility] [address] PCP - General Family Medicine 12/18/23 Ammon Lucas MD [address] [place] [facility] [address] Referring Family Medicine 09/08/23 Sole Scraper Relationship Specialty Start Date End Date Ammon Lucas MD [address] [place] [facility] [address] PCP - General Family Medicine 12/18/23 Ammon Lucas MD [address] [place] [facility] [address] Referring Family Medicine 09/08/23 Sole Scraper Relationship Specialty Start Date End Date Ammon Lucas MD [address] [place] [facility] [address] PCP - General Family Medicine 12/18/23 Ammon Lucas MD [address] [place] [facility] [address] Referring Family Medicine 09/08/23 Sole Scraper Relationship Specialty Start Date End Date Ammon Lucas MD [address] [place] [facility] [address] PCP - General Family Medicine 12/18/23 Ammon Lucas MD [address] [place] [facility] [address] Referring Family Medicine 09/08/23 Sole Scraper Relationship Specialty Start Date End Date Ammon Lucas MD [address] [place] [facility] [address] PCP - General Family Medicine 12/18/23 Ammon Lucas MD [address] [place] [facility] [address] Referring Family Medicine 09/08/23 Sole Scraper Relationship Specialty Start Date End Date Ammon Lucas MD [address] [place] [facility] [address] PCP - General Family Medicine 12/18/23 Ammon Lucas MD [address] [place] [facility] [address] Referring Family Medicine 09/08/23 Sole Scraper Relationship Specialty Start Date End Date Ammon Lucas MD [address] [place] [facility] [address] PCP - General Family Medicine 12/18/23 Ammon Lucas MD [address] [place] [facility] [address] Referring Family Medicine 09/08/23 Sole Scraper Relationship Specialty Start Date End Date Ammon Lucas MD [address] [place] [facility] [address] PCP - General Family Medicine 12/18/23 Ammon Lucas MD [address] [place] [facility] [address] Referring Family Medicine 09/08/23 Sole Scraper Relationship Specialty Start Date End Date Ammon Lucas MD [address] [place] [facility] [address] PCP - General Family Medicine 12/18/23 Ammon Lucas MD [address] [place] [facility] [address] Referring Family Medicine 09/08/23 Sole Scraper Relationship Specialty Start Date End Date Ammon Lucas MD [address] [place] [facility] [address] PCP - General Family Medicine 12/18/23 Ammon Lucas MD [address] [place] [facility] [address] Referring Family Medicine 09/08/23 Sole Scraper Relationship Specialty Start Date End Date Ammon Lucas MD [address] [place] [facility] [address] PCP - General Family Medicine 12/18/23 Ammon Lucas MD [address] [place] [facility] [address] Referring Family Medicine 09/08/23 Sole Scraper Relationship Specialty Start Date End Date Ammon Lucas MD [address] [place] [facility] [address] PCP - General Family Medicine 12/18/23 Ammon Lucas MD [address] [place] [facility] [address] Referring Family Medicine 09/08/23 Sole Scraper Relationship Specialty Start Date End Date Ammon Lucas MD [address] [place] [facility] [address] PCP - General Family Medicine 12/18/23 Ammon Lucas MD [address] [place] [facility] [address] Referring Family Medicine 09/08/23 Sole Scraper Relationship Specialty Start Date End Date Ammon Lucas MD [address] [place] [facility] [address] PCP - General Family Medicine 12/18/23 Ammon Lucas MD [address] [place] [facility] [address] Referring Family Medicine 09/08/23 Sole Scraper Relationship Specialty Start Date End Date Ammon Lucas MD [address] [place] [facility] [address] PCP - General Family Medicine 12/18/23 Ammon Lucas MD [address] [facility] [place] [address] Referring Family Medicine 09/08/23 Sole Scraper Relationship Specialty Start Date End Date Ammon Lucas MD [address] [place] [address] PCP - General Family Medicine 03/18/23 Sole Scraper Relationship Specialty Start Date End Date Ammon Lucas MD [address] [facility] [address] PCP - General Family Medicine 03/18/23 Sole Scraper Relationship Specialty Start Date End Date Ammon Lucas MD [address] [facility] [place] [address] PCP - General Family Medicine 12/18/23 Ammon Lucas MD [address] [facility] [place] [address] Referring Family Medicine 09/08/23 Sole Scraper Relationship Specialty Start Date End Date Ammon Lucas MD [address] [place] [address] PCP - General 06/18/18 Sole Scraper Relationship Specialty Start Date End Date Ammon Lucas MD [address] [place] [address] PCP - General 06/18/18 Sole Scraper Relationship Specialty Start Date End Date Ammon Lucas MD [address] [place] [address] PCP - General 06/18/18 Sole Scraper Relationship Specialty Start Date End Date Ammon Lucas MD [address] [place] [address] PCP - General 06/18/18 Sole Scraper Relationship Specialty Start Date End Date Ammon Lucas MD [address] [place] [address] PCP - General 06/18/18 Sole Scraper Relationship Specialty Start Date End Date Ammon Lucas MD [address] [place] [address] PCP - General 06/18/18 Sole Scraper Relationship Specialty Start Date End Date Ammon Lucas MD [address] [place] [facility] [address] PCP - General Family Medicine 03/18/23 Sole Scraper Relationship Specialty Start Date End Date Ammon Lucas MD [address] [place] [facility] [address] PCP - General Family Medicine 03/18/23 Sole Scraper Relationship Specialty Start Date End Date Ammon Lucas MD [address] [place] [facility] [address] PCP - General Family Medicine 03/18/23 Sole Scraper Relationship Specialty Start Date End Date Ammon Lucas MD [address] [place] [facility] [address] PCP - General Family Medicine 12/18/23 Ammon Lucas MD [address] [place] [facility] [address] Referring Family Medicine 09/08/23 Sole Scraper Relationship Specialty Start Date End Date Ammon Lucas MD [address] [facility] [place] [address] PCP - General Family Medicine 12/18/23 Ammon Lucas MD [address] [place] [facility] [address] Referring Family Medicine 09/08/23 Sole Scraper Relationship Specialty Start Date End Date Ammon Lucas MD [address] [place] [facility] [address] PCP - General Family Medicine 12/18/23 Ammon Lucas MD [address] [place] [facility] [address] Referring Family Medicine 09/08/23 Sole Scraper Relationship Specialty Start Date End Date Ammon Lucas MD [address] [place] [facility] [address] PCP - General Family Medicine 12/18/23 Ammon Lucas MD [address] [place] [facility] [address] Referring Family Medicine 09/08/23 Sole Scraper Relationship Specialty Start Date End Date Ammon Lucas MD [address] [place] [facility] [address] PCP - General Family Medicine 12/18/23 Ammon Lucas MD [address] [place] [facility] [address] Referring Family Medicine 09/08/23 Sole Scraper Relationship Specialty Start Date End Date Ammon Lucas MD PCP - General Family Medicine 03/18/23 Sole Scraper Relationship Specialty Start Date End Date Ammon [...] BE BASED ON THE PRIMARY CLINICAL RECORDS. [employer] provides no warranty or guarantee of the accuracy or completeness of information in this document.
[2025-06-06 18:59] VITALS: BP 137/79; PULSE 63; TEMP 36.7; O2SAT 95; BMI 21.6
[2025-06-06 19:08] LABS: Lactate/Lactic Acid 0.7 mmol/L (0.4-2.0)
[2025-06-06] MEDS: ENOXAPARIN SODIUM 40 MG/0.4 ML SYRINGE SUBQ (19:24)
[2025-06-06] MEDS: OXYCODONE HCL 5 MG TABLET PO (19:24)
[2025-06-06 23:41] VITALS: BP 105/59; PULSE 67; TEMP 36.5; O2SAT 94
[2025-06-07 03:55] VITALS: BP 109/61; PULSE 56; TEMP 36.9; O2SAT 92
[2025-06-07] MEDS: OXYCODONE HCL 5 MG TABLET PO ×4 (03:58→20:01)
[2025-06-07 06:00] LABS: Hematocrit 37.4 % (36.0-48.0); Hemoglobin 12.3 g/dL (12.0-16.0); Mean Corpuscular HGB Conc 32.9 g/dL (29.9-35.2); Mean Corpuscular Hemoglobin 30.4 pg (26.7-34.0); Mean Corpuscular Volume 92.3 fL (81.0-99.0); Platelet Count 295 10^3/uL (150-450); Red Blood Count 4.05 10^6/uL (4.20-5.40); White Blood Count 19.7 10^3/uL (4.0-11.0)
[2025-06-07 06:18] LABS: Alanine Aminotransferase 17 U/L (14-59); Albumin Globulin Ratio 0.9; Albumin Level 2.9 g/dL (3.4-5.0); Alkaline Phosphatase 55 U/L (46-116); Anion Gap 12.5; Aspartate Amino Transferase 24 U/L (15-37); Blood Urea Nitrogen 16.0 mg/dL (7.0-18.0); Calcium 8.5 mg/dL (8.5-10.1); Carbon Dioxide 28.8 mmol/L (21.0-32.0); Chloride 107 mmol/L (98-107); Estimated GFR (African America >60 (>=60 mL/min/1.73m^2); Estimated GFR (Non-African Ame >60 (>=60 mL/min/1.73m^2); Globulin 3.2 g/dL; Glucose 84 mg/dL (74-106); Potassium 4.3 mmol/L (3.5-5.1); Sodium 144 mmol/L (136-145); Total Protein 6.1 g/dL (6.4-8.2)
[2025-06-07 06:24] LABS: Lactate/Lactic Acid 0.8 mmol/L (0.4-2.0)
[2025-06-07 08:00] VITALS: BP 141/82; PULSE 72; TEMP 36.7; O2SAT 95
--- NOTE | 2025-06-07 09:00 | CM.NOTE ---
Rounds made with Dr. Martinez, abdominal pain is better today. Pt denies nausea or vomiting. Clarified status, OBS status. Dr. Martinez discussed plan of care with pt, pt verbalizes understanding.
--- NOTE | 2025-06-07 12:37 | PM.HP ---
HPI H&P: HPI History of Present Illness Chief complaint: Leukocytosis LLQ ALOD PAIN Narrative: Mrs. 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 Patient came into the emergency room yesterday complaining of abdominal pain that started 12 to 24 hours prior to presentation. Increased intensity. Mostly left mid and lower abdomen. Patient had 3 bowel movement prior to arrival. No hematemesis or melena. No fever or chills. No dysuria or hematuria. CAT scan of the abdomen does not show any acute intra-abdominal process. White count was 28,000. CRP is negative. Emergency room physician had discussed her case with her urologist at [facility] who stated that no reason to transfer patient and no indication for surgical intervention. They recommended patient to be observed overnight. This morning the patient is feeling better. Her pain intensity have subsided significantly down to 3 on a scale of 10. 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 - Compression of vein (ICD-10) [place] syndrome ?M24.20 - Disorder of ligament, unspecified site (ICD-10) Hx of renal calculi ?Z87.442 - Personal history of urinary calculi (ICD-10) Surgical History (Updated 06/06/25 @ 18:38 by Boogie Arvizu) Hx of cholecystectomy ?Z90.49 - Acquired absence of other specified parts of digestive tract (ICD-10) Hx of appendectomy ?Z90.49 - Acquired absence of other specified parts of digestive tract (ICD-10) Status post kidney autotransplantation ?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 - Kidney transplant status (ICD-10) Family History (Updated 06/06/25 @ 19:14 by Dona Rodriguez RN) Uncle Family history of cancer Family history of diabetes mellitus Mother Family history of hypertension Father Family history of hypertension Aunt Family history of hypertension Brother Family history of myocardial infarction Family history of stroke Social History (Updated 06/06/25 @ 19:14 by Dona Rodriguez RN) Within the past year, how often did you have a drink containing alcohol: monthly or less Smoking status: Former smoker Non-prescribed substance use: denies use Highest level of school completed/degree received: high school graduate Little interest or pleasure in doing things: not at all Feeling down, depressed, or hopeless: not at all Meds Home Medications and Allergies Home Medications ?Medication ?Instructions ?Recorded ?Confirmed ?Type atorvastatin 10 mg tablet 10 mg PO DAILY 06/06/25 06/06/25 History cyclobenzaprine 5 mg tablet 5 mg PO HS 06/06/25 06/06/25 History montelukast 10 mg tablet 10 mg PO DAILY 06/06/25 06/06/25 History Allergies Allergy/AdvReac Type Severity Reaction Status Date / Time bee venom protein (honey bee) Allergy Severe Rash Verified 06/06/25 11:06 clindamycin Allergy Intermediate Rash Verified 06/06/25 11:06 doxycycline Allergy Intermediate Rash Verified 06/06/25 11:06 Exam Narrative Exam Narrative: [pt is awake and alert. oriented to place, time and person. No distress. HEENT: [place] conjunctiva and NL buccal mucosa Neck: Supple, no tenderness Endocrine: No Thyromegaly. Vascular: No JVD or carotid bruit. Lymphatic: No cervical lymphadenopathy. Chest: CTA no DTP. Heart RRR, no extra sound or murmur. Abd: Soft, minimal discomfort, tenderness in the left mid and lower abdomen, no rebound, no guard and no rigidity. No clinical evidence of surgical abdomen. . LE: No cyanosis or clubbing, no varices or edema. Neuro: A A O. Nl speech, comprehension and attention. Nl and symetrical motor and tone examination through out. []] Constitutional Vital Signs, click to edit/add: Last Vital Signs Temp 98.0 F 06/07/25 08:00 Pulse 72 06/07/25 08:00 Resp 16 06/07/25 08:00 BP 141/82 06/07/25 08:00 Pulse Ox 95 06/07/25 08:00 O2 Del Method Room Air 06/07/25 08:00 Results Labs Labs: Short CBC 06/07/25 Range/Units 05:31 WBC 19.7 H (4.0-11.0) 10^3/uL Hgb 12.3 (12.0-16.0) g/dL Hct 37.4 (36.0-48.0) % Plt Count 295 (150-450) 10^3/uL BMP 06/07/25 05:31 Sodium 144 Potassium 4.3 Chloride 107 Carbon Dioxide 28.8 BUN 16.0 Creatinine 0.61 Glucose 84 Calcium 8.5 Liver Function 06/07/25 Range/Units 05:31 Total Bilirubin 0.3 (0.2-1.0) mg/dL AST 24 (15-37) U/L ALT 17 (14-59) U/L Alkaline Phosphatase 55 (46-116) U/L Albumin 2.9 L (3.4-5.0) g/dL Urine 06/06/25 Range/Units 12:40 Urine Color Lt. yellow (YELLOW) Urine Clarity Clear (CLEAR) Urine pH 6.0 (5.0-9.0) Ur Specific [place] <=1.005 A (1.005-1.025) Urine Protein Negative (NEG/TRACE) mg/dL Urine Glucose (UA) Negative (NEGATIVE) mg/dL Assessment and Plan Assessment and Plan (1) Abdominal pain: (2) Leukocytosis: Plan Abdominal pain that has significantly subsided in intensity as described above. CAT scan of the abdomen is negative for acute intra-abdominal process UA showed 2-5 RBC and 0-2 WBC History of nutcracker syndrome status post renal questionable left kidney White count is 28,000. No fever or chills. Less likely secondary to infectious process specifically given the fact that her CRP is less than 0.5 Likely reactive secondary to pain. ER physician had discussed her case with her urologist who did not see any benefit to transferring patient to [facility], no plan or recommendation for an exploration. I had accepted to observe patient I requested a blood culture and started her empirically on intravenous ceftriaxone Still do not have confirmed diagnosis yet as to the etiology or cause of her abdominal pain. Patient is feeling much better today. My recommendation is to observe the patient for another 24 to 48 hours.
--- NOTE | 2025-06-07 13:27 | SWNOTE1 ---
Medicare Outpatient Observation Notice reviewed and discussed with patient. Pt. verbalized understanding and signed the form. Original given to patient and copy placed in patient?s chart.
--- NOTE | 2025-06-07 13:27 | SWNOTE1 ---
SW met with pt to discuss dc needs. Pt voiced she is feeling so/so. Pt lives at home with her and is independent. She has no anticipated discharge needs at this time. Pt stated they were supposed to go on a vacation/road trip and leave today, but she will have to reschedule that. SW to follow as needed.
[2025-06-07 20:00] VITALS: BP 114/64; PULSE 65; TEMP 36.8; O2SAT 94
[2025-06-07] MEDS: 0.9 % SODIUM CHLORIDE 250 ML 10 ML IV (20:02)
[2025-06-07] MEDS: MONTELUKAST SODIUM 10 MG TABLET PO (22:02)
[2025-06-07] MEDS: CYCLOBENZAPRINE HCL 10 MG TABLET 5 MG PO (22:02)
[2025-06-07] MEDS: ENOXAPARIN SODIUM 40 MG/0.4 ML SYRINGE SUBQ (22:02)
[2025-06-08] VITALS: BP 110/68; PULSE 60; TEMP 36.6; O2SAT 97
[2025-06-08 04:00] VITALS: BP 121/62; PULSE 59; TEMP 36.6; O2SAT 94
[2025-06-08 05:52] LABS: Hematocrit 36.8 % (36.0-48.0); Hemoglobin 12.3 g/dL (12.0-16.0); Immature Granulocytes Abs Auto 4.08 10^3/uL (0.00-0.03); Immature Granulocytes Pct Auto 20.9 % (0.0-0.5); Lymphocytes Absolute Auto 2.2 10^3/uL (1.2-3.8); Mean Corpuscular HGB Conc 33.4 g/dL (29.9-35.2); Mean Corpuscular Hemoglobin 30.3 pg (26.7-34.0); Mean Corpuscular Volume 90.6 fL (81.0-99.0); Platelet Count 297 10^3/uL (150-450); Red Blood Count 4.06 10^6/uL (4.20-5.40); White Blood Count 19.5 10^3/uL (4.0-11.0)
[2025-06-08 06:13] LABS: Alanine Aminotransferase 18 U/L (14-59); Albumin Globulin Ratio 1.0; Albumin Level 3.1 g/dL (3.4-5.0); Alkaline Phosphatase 66 U/L (46-116); Anion Gap 10.3; Aspartate Amino Transferase 20 U/L (15-37); Blood Urea Nitrogen 22.0 mg/dL (7.0-18.0); Calcium 8.8 mg/dL (8.5-10.1); Carbon Dioxide 29.8 mmol/L (21.0-32.0); Chloride 106 mmol/L (98-107); Estimated GFR (African America >60 (>=60 mL/min/1.73m^2); Estimated GFR (Non-African Ame >60 (>=60 mL/min/1.73m^2); Globulin 3.2 g/dL; Glucose 85 mg/dL (74-106); Potassium 4.1 mmol/L (3.5-5.1); Sodium 142 mmol/L (136-145); Total Protein 6.3 g/dL (6.4-8.2)
[2025-06-08] MEDS: OXYCODONE HCL 5 MG TABLET PO ×2 (07:40→13:26)
[2025-06-08 07:41] VITALS: BP 129/81; PULSE 68; TEMP 36.7; O2SAT 95
--- NOTE | 2025-06-08 08:30 | CM.NOTE ---
Rounds made with Dr. Martinez, pt continues with abdominal pain. Dr. Martinez discussed plan of care with pt. No discharge today, pt will be changed to inpatient status for continued pain. Dr. Martinez discussed possibly repeating CT of abdomen today, pt has continues elevated WBC.
--- NOTE | 2025-06-08 09:46 | CT_ITS ---
The [address] [address] Patient Name: ZAYNAB LUTZ MRN: [id number] date: 1955 Sex: F Assigned Patient Location: Current Patient Location: Accession/Order Number: [id number] Exam Date: 06/08/2025 10:50 Report Date: 06/08/2025 11:43 At the request of: CEFERINO WRIGHT MD Procedure: CT abdomen pelvis wo con CT ABDOMEN AND PELVIS WITHOUT CONTRAST COMPARISON: 06/06/2025 CLINICAL DATA: Persistent left mid and lower quadrant pain. Elevated white count. Spiral images were obtained through the abdomen pelvis without contrast. This CT exam was performed using one or more following dose reduction techniques: Automated exposure control, adjustment of the mA and/or kV according to patient size, or use of iterative reconstruction technique. Limited cuts through the lung bases show minor atelectasis and/or scarring. Evaluation of the intra-abdominal organs is slightly limited by the absence of contrast. The gallbladder is surgically absent. Mild biliary prominence is again seen. There is also still borderline prominence of the pancreatic duct. There is no peripancreatic inflammatory change. The liver, spleen and adrenal glands are otherwise unremarkable. There is a left pelvic kidney. There is no perinephric inflammation, renal stones or hydronephrosis on either side. There is atherosclerotic plaque involving the aorta and iliac arteries. No enlarged lymph nodes or ascites are noted. There is food debris within the stomach. The small bowel loops are not distended. There is air and stool along the colon. Thoracolumbar dextroscoliotic curvature and degenerative changes are again visualized at the spine. Images through the pelvis show no dilated small bowel. There is stool at the cecum. There is minimal air and stool at the distal colon. No diverticular disease is noted. The appendix is surgically absent. No adnexal cysts are identified. No urinary bladder abnormalities are noted. No ascites is seen. CT/CT abdomen pelvis wo con IMPRESSION: LEFT PELVIC KIDNEY. NO OBSTRUCTIVE UROPATHY OR STONE DISEASE. SIMILAR BILIARY AND PANCREATIC PROMINENCE. NO ACUTE FINDINGS. Impression dictated by: Ada Boykin M.D. 06/08/2025 11:43 AM Dictation Location: [employer] Electronically authenticated by: [id number] Y Date: 06/08/2025 11:43
--- NOTE | 2025-06-08 09:49 | P.PN_ITS ---
Progress Note: Subjective Subjective Interval history: Persistent discomfort in the left mid and lower abdomen. Patient rates her pain as an 5 on a scale of 10. When she came in the pain was much more intense. No nausea or vomiting. No hematemesis or melena. No fever or chills. No hematuria or dysuria. Exam Narrative Exam Narrative: [pt is awake and alert. oriented to place, time and person HEENT: [place] conjunctiva and NL buccal mucosa Neck: Supple, no tenderness Endocrine: No Thyromegaly. Vascular: No JVD or carotid bruit. Lymphatic: No cervical lymphadenopathy. Chest: CTA no DTP. Heart RRR, no extra sound or murmur. Abd: Very soft, minimal discomfort in the left mid and lower abdomen, no rebound, no guarding, no rigidity, Increase abd girth therefore clinically I could not exclude the possibility of intra abd mass or organomegaly. LE: No cyanosis or clubbing, no varices or edema. Neuro: A A O. Nl speech, comprehension and attention. Nl and symetrical motor and tone examination through out. []] Constitutional Vital Signs, click to edit/add: Last Vital Signs Temp 98.0 F 06/08/25 07:41 Pulse 68 06/08/25 07:41 Resp 18 06/08/25 07:41 BP 129/81 06/08/25 07:41 Pulse Ox 95 06/08/25 07:41 O2 Del Method Room Air 06/08/25 07:41 Progress Note: Objective Labs Labs: Short CBC 06/08/25 Range/Units 05:24 WBC 19.5 H (4.0-11.0) 10^3/uL Hgb 12.3 (12.0-16.0) g/dL Hct 36.8 (36.0-48.0) % Plt Count 297 (150-450) 10^3/uL BMP 06/08/25 05:24 Sodium 142 Potassium 4.1 Chloride 106 Carbon Dioxide 29.8 BUN 22.0 H Creatinine 0.87 Glucose 85 Calcium 8.8 Liver Function 06/08/25 Range/Units 05:24 Total Bilirubin 0.3 (0.2-1.0) mg/dL AST 20 (15-37) U/L ALT 18 (14-59) U/L Alkaline Phosphatase 66 (46-116) U/L Albumin 3.1 L (3.4-5.0) g/dL Progress Note: A&P Assessment and Plan (1) Abdominal pain: (2) Leukocytosis: Plan Abdominal pain that has significantly subsided in intensity as described above. 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 White count is down to 19,000. No fever or chills. Less likely secondary to infectious process specifically given the fact that her CRP is less than 0.5 Likely reactive secondary to pain. ER physician had discussed her case with her urologist who did not see any benefit to transferring patient to [facility], no plan or recommendation for an exploration. I had accepted to observe patient I requested a blood culture and started her empirically on intravenous ceftriaxone Still do not have confirmed diagnosis yet as to the etiology or cause of her abdominal pain. Given the persistent abdominal discomfort and the persistent elevation of the white count would extend her observation stay for at least another 24 to 48 hours. Changed to inpatient status. Continue intravenous antibiotic. Blood culture is pending. Repeat CT abdomen and pelvis. Repeat UA.
[2025-06-08 13:27] LABS: Glucose Urine UA NEGATIVE (NEGATIVE)
[2025-06-08 13:53] LABS: Cast Seen? NONE SEEN #/LPF (NONE SEEN); Crystals Seen? None Seen #/HPF (None Seen); Urine Culture Indicated NO
[2025-06-08] MEDS: MAGNESIUM HYDROXIDE 2,400 MG/10 ML ORAL.SUSP 2400 MG PO (15:15)
[2025-06-08 16:35] VITALS: BP 109/66; PULSE 61; O2SAT 95
[2025-06-08 19:35] VITALS: BP 110/62; PULSE 57; TEMP 36.7; O2SAT 95
[2025-06-08] MEDS: CYCLOBENZAPRINE HCL 10 MG TABLET 5 MG PO (21:12)
[2025-06-08] MEDS: MONTELUKAST SODIUM 10 MG TABLET PO (21:12)
[2025-06-08] MEDS: ATORVASTATIN CALCIUM 10 MG TABLET PO (21:12)
[2025-06-08] MEDS: ENOXAPARIN SODIUM 40 MG/0.4 ML SYRINGE SUBQ (21:12)
[2025-06-09] VITALS: BP 120/70; PULSE 55; TEMP 36.6; O2SAT 97
[2025-06-09 04:00] VITALS: BP 106/66; PULSE 61; TEMP 36.4; O2SAT 97
[2025-06-09 05:36] LABS: Hematocrit 39.9 % (36.0-48.0); Hemoglobin 13.1 g/dL (12.0-16.0); Mean Corpuscular HGB Conc 32.8 g/dL (29.9-35.2); Mean Corpuscular Hemoglobin 29.8 pg (26.7-34.0); Mean Corpuscular Volume 90.9 fL (81.0-99.0); Platelet Count 308 10^3/uL (150-450); Red Blood Count 4.39 10^6/uL (4.20-5.40); White Blood Count 19.0 10^3/uL (4.0-11.0)
[2025-06-09 05:49] LABS: Anion Gap 8.8; Blood Urea Nitrogen 19.0 mg/dL (7.0-18.0); Calcium 9.2 mg/dL (8.5-10.1); Carbon Dioxide 30.4 mmol/L (21.0-32.0); Chloride 108 mmol/L (98-107); Estimated GFR (African America >60 (>=60 mL/min/1.73m^2); Estimated GFR (Non-African Ame >60 (>=60 mL/min/1.73m^2); Glucose 89 mg/dL (74-106); Potassium 4.2 mmol/L (3.5-5.1); Sodium 143 mmol/L (136-145)
[2025-06-09 07:46] VITALS: BP 127/72; PULSE 62; TEMP 36.5; O2SAT 97
[2025-06-09] MEDS: OXYCODONE HCL 5 MG TABLET PO ×2 (08:49→12:39)
--- NOTE | 2025-06-09 08:55 | CM.NOTE ---
Rounds made with Dr. Martinez, pt will discharge to home today. Discussed with pt about outpatient lab work next Tues and f/u with Dr. Osborne will be scheduled prior to pt's discharge. Pt voices no BM since 06/05, enocuraged pt to take stool softner at discharge.
--- NOTE | 2025-06-09 10:07 | SWNOTE1 ---
Important Message from Medicare reviewed and discussed with patient. Pt. verbalized understanding and signed the form. Original given to patient and copy placed in patient?s chart. Pt voiced she is discharging today, no anticipated discharge needs at this time.
[2025-06-09 11:46] VITALS: BP 116/65; PULSE 62; TEMP 36.7; O2SAT 95
[2025-06-09 12:36] LABS: Lipase 33.0 U/L (16.0-77.0)
[2025-06-09] MEDS: SENNOSIDES/DOCUSATE SODIUM 1 TAB TABLET 2 TAB PO (12:39)
[2025-06-09] MEDS: MAGNESIUM CITRATE 296 ML SOLUTION PO (12:39)
--- NOTE | 2025-06-09 13:21 | P.DS_ITS ---
DS: Providers Provider Date of admission: 06/08/25 08:50 Primary care physician: Alejandra Osborne MD DS: Diagnosis Discharge Diagnosis (1) Abdominal pain: (2) Leukocytosis: Plan As listed above and others that are not listed DS: Summary Hospital Course Hospital Course: Mrs. Faby Vallejo is a 69-year-old female who came to the emergency room complaining of left mid and lower abdomen pain and discomfort Abdominal pain that has significantly subsided in intensity as described above. 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 White count is down to 19,000. No fever or chills. Less likely secondary to infectious process specifically given the fact that her CRP is less than 0.5 Likely reactive secondary to pain. Could be related to functional disorder of the bowel. Patient reported having constipation. No bowel movement for 3 days. Patient stated that she has a bowel movement once every 3 days. ER physician had discussed her case with her urologist who did not see any benefit to transferring patient to [facility], no plan or recommendation for an exploration. Blood culture thus far is negative. I started the patient on ceftriaxone empirically. No fever. No chills. I will discontinue IV antibiotic at this time. CRP is less than 0.5. White count is elevated. No blast seen. There was elevation on behalf of lymphocyte, monocyte, neutral, eosinophil, basophil. No elevation of the blasts to suggest leukemia. Patient continues to have pain, 5-6 on a scale of 10 therefore I had decided to repeat CT scan of the abdomen and that came back negative for acute intra-abdominal process but positive for prominence of the biliary and pancreatic ducts Patient had normal LFTs. Normal lipase. No pain or tenderness in the epigastric area or right upper quadrant. Repeat UA is negative. CMP is negative. Repeat CBC showed persistent elevation of the white count at 19,000. Thus far, I do not have her reason or etiology for her abdominal pain or leukocytosis Once again, this could be a functional disorder of the bowel. Patient reported also that she is known to have pelvic floor dysfunction causing her to have pain in the past. Patient stated that she has had Botox injection in the past which subsides the pain. Not sure if this pain is triggered by pelvic floor dysfunction at this time. Currently patient denies any vaginal symptoms. Her abdomen is soft. No guarding, no rebound, no rigidity to suggest any acute surgical abdomen. No indication for acute surgical intervention. If she continues to have pain, she may qualify for colonoscopy and/or laparoscopy. Again there is no guarding, no peritoneal sign, no rigidity. Abdomen is very soft. Patient is comfortable going home today. I do recommend patient to have a repeat CBC with differential Friday I do recommend patient to follow-up with her PCP next Friday to monitor her recovery and proceed with additional needed diagnostic and therapeutic invention in the outpatient setting including but not limited to referral to see GI or surgery. If the white count differentiation is suggestive of bone marrow disease I will recommend a referral to see hematology. Patient and her are comfortable with the plan as the plan as listed above. Patient is instructed to return back to the emergency room if she develops worsening abdominal pain, fever, chills, vomiting or any other unusual symptoms Patient has medical issues as listed above and others that are not listed. Thus far, I do not have confirmative diagnosis as to the etiology of her pain. At this time, I do not have any clear or strong clinical justification to extend inpatient hospitalization. Patient however will require close and frequent monitoring as well as additional work-up, investigation and therapeutic intervention that could take place from this point on post discharge. CBC on Friday. Follow-up with the PCP in the next week. Follow-up with METALIZING MACHINE OPERATOR AUTOMATIC and urology at [facility]. I instructed patient to ask her primary care doctor to obtain [facility] record entirely to address abnormalities seen on labs and imaging (prominence of the pancreatic and biliary system ) that I have and have not addressed during this hospitalization, follow-up on pending blood work, imaging and pathology is if available and to follow-up on needed medical care in the outpatient setting. Time Spent with Patient Time attestation: Total time spent providing and/or coordinating discharge services: Exam Constitutional Vital Signs, click to edit/add: Last Vital Signs Temp 98.0 F 06/09/25 11:46 Pulse 62 06/09/25 11:46 Resp 16 06/09/25 11:46 BP 116/65 06/09/25 11:46 Pulse Ox 95 06/09/25 11:46 O2 Del Method Room Air 06/09/25 11:46 DS: Data Data Completed and Pending Labs on day of discharge: Labs from last 24 hours 06/09/25 06/08/25 05:15 11:25 WBC 19.0 H RBC 4.39 Hgb 13.1 Hct 39.9 MCV 90.9 MCH 29.8 MCHC 32.8 RDW 15.5 H Plt Count 308 MPV 11.2 Sodium 143 Potassium 4.2 Chloride 108 H Carbon Dioxide 30.4 Anion Gap 8.8 BUN 19.0 H Creatinine 0.81 Est GFR ( Amer) >60 Est GFR (Non-Af Amer) >60 BUN/Creatinine Ratio 23.5 Glucose 89 Calcium 9.2 Lipase 33.0 Urine Color Lt. yellow Urine Clarity Clear Urine pH 5.5 Ur Specific [place] 1.020 Urine Protein Negative Urine Glucose (UA) Negative Urine Ketones Negative Urine Occult Blood Trace-i Urine Nitrite Negative Urine Bilirubin Negative Urine Urobilinogen 0.2 Ur Leukocyte Esterase Negative Urine RBC 0-2 Urine WBC None seen Ur Squamous Epith Cells Few A Urine Crystals None seen Urine Bacteria Trace A Urine Casts None seen Urine Mucus None seen Ur Culture Indicated? No Discharge Plan Discharge Disposition: Home, Self-Care Condition: Good Discharge Medications: New oxycodone 5 mg Tablet 5 mg PO Q4H PRN (Reason: Pain 4-6) Qty: 30 0RF sennosides [Senokot] 8.6 mg tablet 8.6 mg PO BID Qty: 60 0RF polyethylene glycol 3350 [Miralax] 17 gram/dose powder 8.5 g PO DAILY PRN (Reason: constipation) Qty: 119 0RF Continued atorvastatin 10 mg tablet 10 mg PO DAILY cyclobenzaprine 5 mg tablet 5 mg PO HS montelukast 10 mg tablet 10 mg PO DAILY Print Language: Vietnamese Activity Restrictions/Additional Instructions: I may not have addressed or treated all of your medical illnesses or the abnormal blood work or imaging studies during this hospitalization. Please ask your primary care provider to obtain [facility] records entirely to follow up on all of the abnormal physical, laboratory, and imaging findings that I have not addressed. Please return back to the emergency room or seek medical attention if your symptoms worsen or return. Please return back to the emergency room if you develop worsening abdominal pain, fever, chills, vomiting or any other unusual symptoms. Despite fairly comprehensive imaging and blood work, I do not have a reason or cause for your abdominal pain. Your primary care doctor would need to continue to investigate this further. Consider referral to see specialist such as processor solid propellant and/or surgery or METALIZING MACHINE OPERATOR [employer] to be done in the outpatient setting if you continue to have pain and specifically if pain intensity is worse. Please have blood test called CBC next Friday. Result is to be communicated to your primary care doctor for an evaluation and monitoring of white count. Please follow-up with your primary care doctor next week to monitor your abdominal pain and proceed with additional needed outpatient testing or referral as deemed to be appropriate. Discharging you from [facility] does not mean that your medical care ends here and now. You may still need additional monitoring, work up, investigation, and treatment plan to be handled from this point on by out patient providers including your primary care provider and specialists. For any medication question, please contact your retail pharmacist or your primary care provider. Thank you. Forms: Portal Instructions Follow Up Appointments: 06/16 @ 10am with Dr. Osborne [phone]
--- NOTE | 2025-06-10 11:38 | CM.DCFOLLOWU ---
Person spoke with: How are you feeling? OK How is your pain? 4-5 Did you understand your discharge instructions? Yes Do you have any questions about your discharge instructions? No Were you given any prescriptions at discharge? Yes Were you able to get your prescriptions filled? yes Do you understand how to take your medications as ordered? Yes Do you have any questions about your follow up appointment and do you plan to keep your follow up appointment? No Is there anything else that you would like to discuss? No Questions/Comments/Concerns/Other: Everyone from the Dr's to Nurses were great!
[2025-06-11 13:14] LABS: A. calcoaceticus-baumannii Cpx NOT DETECTED (NOT DETECTE); Bacteroides fragilis NOT DETECTED (NOT DETECTE); Candida auris NOT DETECTED (NOT DETECTE); Candida glabrata NOT DETECTED (NOT DETECTE); Enterobacterales NOT DETECTED (NOT DETECTE); Enterococcus faecalis NOT DETECTED (NOT DETECTE); Enterococcus faecium NOT DETECTED (NOT DETECTE); Klebsiella aerogenes NOT DETECTED (NOT DETECTE); Klebsiella pneumoniae group NOT DETECTED (NOT DETECTE); Proteus spp. NOT DETECTED (NOT DETECTE); Salmonella spp. NOT DETECTED (NOT DETECTE); Serratia marcescens NOT DETECTED (NOT DETECTE); Staphylococcus epidermidis NOT DETECTED (NOT DETECTE); Staphylococcus lugdunensis NOT DETECTED (NOT DETECTE); Staphylococcus spp. NOT DETECTED (NOT DETECTE); Stenotrophomonas maltophilia NOT DETECTED (NOT DETECTE); Streptococcus pyogenes NOT DETECTED (NOT DETECTE); Streptococcus spp. NOT DETECTED (NOT DETECTE)
[2025-06-11 14:40] LABS: Source BLOOD
== END 2025-06-09 14:38 | disposition home or self-care (01) | DRG 392 ==
LOC: ER 18:14 → MS 18:43
PROVIDERS: Admitting Provider Internal Medicine; Emergency Provider Student in an Organized Health Care Education/Training Program; PCP Family Medicine; Visit Provider Internal Medicine
DX: R10.32 Left lower quadrant pain (principal); Z94.0 Kidney transplant status; D72.829 Elevated white blood cell count, unspecified; Z87.898 Personal history of other specified conditions; Z87.442 Personal history of urinary calculi; Z79.899 Other long term (current) 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; Z90.49 Acquired absence of other specified parts of digestive tract; Z87.891 Personal history of nicotine dependence; E78.5 Hyperlipidemia, unspecified; N31.8 Other neuromuscular dysfunction of bladder; R93.2 Abnormal findings on diagnostic imaging of liver and biliary tract
CPT/HCPCS: 36415; 74176; 74178; 76775; 80048; 80053; 81001; 83605; 83690; 85007; 85025; 85027; 86140; 87040; 87076; 87150; 93975; 96365; 96366; 96372; 96375; 96376; 99285; G0378; J0696; J1650; J2270; J2405; Q9967

== ENCOUNTER 2025-06-14 08:56 | Outpatient (OUT) | payer MEDICARE, SELFPAY ==
--- OUTSIDE RECORDS SUMMARY | 2024-09-06 06:15 | XMS_ITS ---
Author Organization [facility] Address [address] [place] [address] Care Team Providers Care Director Name Role Phone Alejandra Osborne M.D. Primary Care Provider Unavail Ivan Howe Unavailable [phone] REASON FOR VISIT [facility] ER RT HIP PAIN Encounters Encounter Location Date Provider Diagnosis [facility] [address] [place] [address] [address] [place] [address] 09/06/2024 Ivan Trejo Plan Of Treatment No Information Progress Notes * ZAYNAB LUTZ KDOB: (69 yo F)Acc No.[id number]:09/06/2024 Patient: ZAYNAB VOSS Provider: Tamiko Trejo MD :1955 A ge:69 Y S ex:Female Date:09/06/2024 Address:[address] [place], [place] [id number] Pcp:Alejandra Osborne M.D. Subjective: * Chief Complaints: * 1 . [facility] ER RT HIP PAIN. * Medical History: Objective: * Vitals: Assessment: Plan: * Treatment: Forms: * Images: * Electronic signature of Bam Trejo MD on 06/14/2025 at 08:59 AM EDT Sign off status: Pending * Provider: Tamiko Trejo MD Date: 1 11/06/2023 Generated for Printi ng/Faxing/eTransmitting on: 0 06/14/2025 08:59 AM EDT
--- OUTSIDE RECORDS SUMMARY | 2025-06-02 08:45 | XMS_ITS | Encounter Summary ---
Author Organization [facility] Address [address] [place] [address] Care Team Providers Care Stock Dealer Name Role Phone Alejandra Osborne MD Primary Care Provider [phone] Reason for Referral * Imaging (Routine) - Pending Review Specialty Diagnoses / Procedures Referred By Contac t Referred To Contact Diagnoses Pulmonary nodule Procedures CT chest wo IV contrast Tessa Steven DO [address] [place] [address] Phone: tel: fax: Referral ID Status Reason Start Date Expiration Date V isits Requested Visits Authorized [id number] Pending Review 04/12/2026 10/09/2026 1 1 Encounter Details Date Type Department Care Team (Late st Contact Info) Description 06/02/2025 8:45 AM EDT Office Visit [facility] [address] [place] [address] Tessa Steven DO [address] [place] [address] Pulmonary nodule (Primary Dx) Social History Tobacco Use Types Packs/Day Years Used Date Smoking Tobacco: Former Cigarettes Passive Smoke Exposure: Past Smokeless Tobacco: Never Alcohol Use Standard Drinks/Week Comments Never 0 (1 standard drink = 0.6 oz pure alcohol) caffeine intake: 2-3 cups per day Comments No Sex and Gender Information Value Date Recorded Sex Assigned at Not on file Legal Sex Female 7:08 PM EDT Gender Identity Not on file Sexual Orientation Not on file documented as of this encounter Last Filed Vital Signs Vital Sign Reading Time Taken Comments Blood Pressure 157/92 06/02/2025 8:52 AM EDT Pulse 65 06/02/2025 8:52 AM EDT Temperature - - Respiratory Rate - - Oxygen Saturation 99% 06/02/2025 8:52 AM EDT Inhaled Oxygen Concentration - - Weight 63.5 kg (140 lb) 06/02/2025 8:52 AM EDT Height 170.2 cm (5' 7 ) 06/02/2025 8:52 AM EDT Body Mass Index 21.93 06/02/2025 8:52 AM EDT documented in this encounter Progress Notes * Tessa Steven, DO - 06/02/2025 8:45 AM EDT Images from the original note were not included. Karen Zaidi presents today for follow up on CT scan of her chest. She was last seen 1 year ago. She did have a follow-up scan performed prior to today's office visit. She denies any complaints from a pulmonary perspective. She denies any complaints of shortness of breath at rest or with exertion. She denies any current complaints of chest pain, palpitations, fevers, chills, sweats, or recent unintentional weight changes. She denies any other complaints at this time. Allergies: Allergies Allergen Reactions Clindamycin Rash, Hives and Shortness of breath Bee Venom Rash and Hives Bee Pollen Other Reaction(s): Comment:Bee Stings Fluconazole Dizziness Pseudoephedrine Hcl Er Hives Codeine GI intolerance Other Reaction(s): Comment:upset stomach Doxycycline Rash and Hives Doxycycline Hyclate Rash Medications: Current Outpatient Medications: acetaminophen (Tylenol) 500 MG tablet, Take 1,000 mg by mouth every 6 (six) hours if needed, Disp: , Rfl: Calcium Carbonate-Vit D-Min (Caltrate [...] hr tablet, Take 1 tablet by mouth inthe morning and 1 tablet in the evening., Disp: , Rfl: onabotulinumtoxinA (Botox) 100 units injection, Inject 100 Units into the shoulder, thigh, or buttocks every 3 months, Disp: , Rfl: Singulair 10 MG tablet, 1 (one) time each day at the same time, Disp: , Rfl: atorvastatin (Lipitor) 20 MG tablet, Take 20 mg by mouth in the morning., Disp: , Rfl: Past Medical History: Past Medical History: Diagnosis Date Acute non intractable tension-type headache 03/17/2023 Allergic rhinitis Chest pain 06/12/2023 Chronic rhinitis 03/17/2023 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: Sp styloidectomy Family history of abdominal aortic aneurysm 08/20/2023 Infrarenal abdominal 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 08/20/2023 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 Lung nodule Malnutrition of moderate degree (HHS-HCC) 03/03/2024 Mass of right submandibular region 12/01/2023 Narcotic drug use 02/19/2024 Last Assessment & Plan: Pain managed with norco PRN Neck pain 12/01/2023 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 Last Assessment & Plan: With pelvic congestion Patient endorses abdominal and L flank pain with radiation to pelvis Other hyperlipidemia 02/19/2024 Last Assessment & Plan: Managed on Atorvastatin Ovarian varices 02/19/2024 Last Assessment & Plan: 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 Exam: Heart: regular rate Lungs: clear to auscultation bilaterally, no wheezes/rales/rhonchi, no resp distress Extremities: no edema noted, no visible rashes Neuro: alert, oriented x3 Imaging Reviewed: Images and report of CT chest from April 2025 reviewed--5.5 mm pulmonary nodule that has remained stable, right upper lobe parenchymal and pleural scarring which is also unchanged, emphysematous changes Assessment/Plan: Diagnoses and all orders for this visit: Pulmonary nodule - CT chest wo IV contrast; Future Pulmonary nodule -- we did discuss the findings of her CT scan of her chest at today's office visit. She has had stability since her prior scan 1 year ago. This has remained stable since her previousscan prior to that approximately 6 months prior. We discussed continued surveillance with a follow-up CT in 1 year. This will be done to ensure a complete [address] surveillance in regards to the pulmonary nodule. If things are stable in 1 year then she will not require any further radiographic studies. Given that she is a former smoker I do feel she would benefit from the complete 2 year timeframe for follow-up. However she does not qualify for low-dose screening program given that she quit smoking over 20 years ago and does have a known prior history of nodules. She will follow here once her follow-up scan is completed next year. The patient understands the plan and is agreeable. Follow up in about 1 year (around 06/02/2026) for CT chest . Tessa Steven DO documented in this encounter Plan of Treatment Upcoming Encounters Date Type Department Care Team (Late st Contact Info) Description 12/08/2025 9:00 AM EST Office Visit [facility] [address] [facility] [place] [address] Keri Topete PA [address] [facility] [place] [address] 06/01/2026 8:45 AM EDT Office Visit [facility] [address] [place] [phone] Tessa Steven DO [address] [place] [address] Scheduled Orders Name Type Priority Associated Diagnoses Orde r Schedule CT chest wo IV contrast Imaging Routine Pulmonary nodule Expected: 04/12/2026, Expires: 09/02/2026 documented as of this encounter Visit Diagnoses Diagnosis Pulmonary nodule- Primary Other diseases of lung, not elsewhere classified documented in this encounter Care Teams Stock Dealer Relationship Specialty Start Date End Date Alejandra Osborne MD PCP - General Family Medicine 03/18/23 documented as of this encounter
--- OUTSIDE RECORDS SUMMARY | 2025-06-14 08:59 | XMS_ITS | Encounter Summary ---
Author Organization [facility] Address [address] [place] [address] Care Team Providers Care Water Control Supervisor Name Role Phone Alejandra Osborne MD Primary Care Provider Encounter Details Date Type Department Care Team (Late st Contact Info) Description 02/15/2023 Abstract [facility] MIRANDA [address] [id number] Edward Silva DO [address] [place], [place] [id number] Social History Tobacco Use Types Packs/Day Years [...] AM EST Office Visit OLAMIDE MIRANDA [address] [address] Keri Topete PA [address] [place], [place] [id number] 06/01/2026 8:45 AM EDT Office Visit [facility] [address] [place] [phone] Tessa Steven DO [address] [place] [address] documented as of this encounter Visit Diagnoses Not on filedocumented in this encounter Care Teams Water Control Supervisor Relationship Specialty Start Date End Date Alejandra Osborne MD PCP - General Family Medicine 03/18/23 documented as of this encounter
--- OUTSIDE RECORDS SUMMARY | 2025-06-14 08:59 | XMS_ITS | Encounter Summary ---
Author Organization [facility] Address [address] [place] [address] Care Team Providers Care Wildlife And Game Protector Name Role Phone Alejandra Osborne MD Unavailable [phone] Alejandra Osborne MD Primary Care Provider [phone] Source Comments In the event this information is protected by the Federal Confidentiality of Alcohol and Drug AbusePatient Records regulations: The Federal rules restrict any use of the information to criminally investigate or prosecute any alcohol or drug abuse patient.[facility] Encounter Details Date Type Department Care Team (Late st Contact Info) Description 09/23/2024 Patient Msg Gynecology [address] [place], [place] [id number] Augustina Vargas MD [address] [place] [address] update Social History Tobacco Use [...] risk 4 12/18/2023 Data from: https://www.neighborhoodatlas.medicine.[facility].edu/. Last address used for calculation [address] [...] 10:30 AM EDT Office Visit [facility] [address] [place], [place] [phone] Sveta Strong MD [address] [place], [place] [phone] lvm and elodia appt rs from 06/07/25 07/07/2025 1:00 PM EDT Office Visit Gynecology [address] [place] [address] Augustina Vargas MD [address] [place], [place] [id number] Botox injection 08/02/2025 12:20 PM EDT Office Visit Rheumatology [address] [place], [place] [id number] Gi Siddiqi MD [address] [place], [place] [phone] Follow up Osteoporosis documented as of this encounter Visit Diagnoses Not on filedocumented in this encounter Care Teams Wildlife And Game Protector Relationship Specialty Start Date End Date Alejandra Osborne MD [address] [place] [address] PCP - General Family Medicine 12/18/23 Alejandra Osborne MD [address] [place] [address] Referring Family Medicine 09/08/23 documented as of this encounter
--- OUTSIDE RECORDS SUMMARY | 2025-06-14 08:59 | XMS_ITS | Encounter Summary ---
Author Organization [facility] tem Address [id number] [address] [place] [address] Care Team Providers Care Assistant Womens Volleyball Coach Name Role Phone Alejandra Osborne MD Primary Care Provider [phone] Reason for Visit * Reason Onset Date Comments Please call [facility] Radiology [place] 2022 Encounter Details Date Type Department Care Team (Late st Contact Info) Description 08/15/2023 Telephone [facility] - ENT [address] [place] [address], [address] [place] [address] [place] [address] [place] [address] [address] [place] [address] Please call [facility] Radiology [place] Social History Tobacco Use [...] 9:08 AM EDT Please call Nathalie at [facility] Radiology Room. Patient sees Dr. Palma. # [phone]. * Telephone Encounter - Mario Mojica - [...] Description 08/09/2025 11:00 AM EDT Office Visit [facility] - ENT [address] [facility], [address] [place] [address] Sarah Palma MD [address] [facility] [address] [place] [address] documented as of this encounter Visit Diagnoses Not on filedocumented in this encounter Additional Health Concerns Assessment Noted Time PHQ-9 Depression Total Score: 2 03/29/20 20 1:00 PM EDT documented as of this encounter Care Teams Assistant Womens Volleyball Coach Relationship Specialty Start Date End Date Alejandra Osborne MD [address] [place] [id number] PCP - General 06/18/18 documented as of this encounter
--- OUTSIDE RECORDS SUMMARY | 2025-06-14 08:59 | XMS_ITS | Encounter Summary ---
Author Organization [facility] tem Address [id number] [address] [place] [address] Care Team Providers Care Adjunct Mathematics Instructor Name Role Phone Alejandra Osborne MD Primary Care Provider Encounter Details Date Type Department Care Team (Late st Contact Info) Description 09/18/2023 Orders Only [facility] - Radiology [address] [place] [phone] Ivan Thomason MD [address] [place] [address] Social History Tobacco Use Types Packs/Day Years [...] Upcoming Encounters Date Type Department Care Team ([facility] st Contact Info) Description 08/09/2025 11:00 AM EDT Office Visit [facility] - ENT [address] [place] [address], [address] [place] [address] [place] [address] [place] [address] [address] [place] [address] documented as of this encounter Visit Diagnoses Not on filedocumented in this encounter Additional Health Concerns Assessment Noted Time PHQ-9 Depression Total Score: 2 03/29/20 20 1:00 PM EDT documented as of this encounter Care Teams Adjunct Mathematics Instructor Relationship Specialty Start Date End Date Alejandra Osborne MD [address] [place] [address] PCP - General 06/18/18 documented as of this encounter
--- OUTSIDE RECORDS SUMMARY | 2025-06-14 08:59 | XMS_ITS | Encounter Summary ---
Author Organization [facility] Address [address] [place] [address] Care Team Providers Care Terra Cotta Roofer Name Role Phone Alejandra Osborne MD Unavailable [phone] Alejandra Osborne MD Primary Care Provider [phone] Source Comments In the event this information is protected by the Federal Confidentiality of Alcohol and Drug AbusePatient Records regulations: The Federal rules restrict any use of the information to criminally investigate or prosecute any alcohol or drug abuse patient.[facility] Encounter Details Date Type Department Care Team (Late st Contact Info) Description 01/26/2025 Patient [facility] [place] [address] Aide Glover RPh At your next appointment, choose [facility]. Social History Tobacco Use Types Packs/Day [...] is lower risk 4 12/18/2023 Data from: https://www.neighborhoodatlas.medicine.[facility].edu/. Last address used for calculation [address] [...] AM EDT Office Visit [facility]VENTION [facility] [address] [place] [address] Sveta Strong MD [address] [place], [place] [phone] lvm and mc appt rs from 06/07/25 07/07/2025 1:00 PM EDT Office Visit Gynecology [address] [place] [address] Augustina Vargas MD [address] [place], [place] [phone] Botox injection 08/02/2025 12:20 PM EDT Office Visit Rheumatology [address] [place], [place] [phone] Gi Siddiqi MD [address] [place], [place] [phone] Follow up Osteoporosis documented as of this encounter Visit Diagnoses Not on filedocumented in this encounter Care Teams Terra Cotta Roofer Relationship Specialty Start Date End Date Alejandra Osborne MD [address] [place] [phone] PCP - General Family Medicine 12/18/23 Alejandra Osborne MD [address] [place] [address] Referring Family Medicine 09/08/23 documented as of this encounter
--- OUTSIDE RECORDS SUMMARY | 2025-06-14 08:59 | XMS_ITS | Encounter Summary ---
Author Organization [facility] Address [address] [place] [address] Care Team Providers Care Tip Inserter Name Role Phone Alejandra Osborne MD Unavailable [phone] Alejandra Osborne MD Primary Care Provider [phone] Source Comments In the event this information is protected by the Federal Confidentiality of Alcohol and Drug AbusePatient Records regulations: The Federal rules restrict any use of the information to criminally investigate or prosecute any alcohol or drug abuse patient.[facility] Encounter Details Date Type Department Care Team (Late st Contact Info) Description 06/25/2024 Patient Msg Gynecology [address] [phone] Augustina Vargas MD [address] [place] [address] appt for botox Social History [...] 4 12/18/2023 Data from: https://www.neighborhoodatlas.medicine.[facility]/. Last address used for calculation [address] [...] 10:30 AM EDT Office Visit [facility] [address] [place] [address] Sveta Strong MD [address] [place], [place] [phone] lvm and elodia appt rs from 06/07/25 07/07/2025 1:00 PM EDT Office Visit Gynecology [address] [place] [address] Augustina Vargas MD [address] [place], [place] [phone] Botox injection 08/02/2025 12:20 PM EDT Office Visit Rheumatology [address] [place], [place] [phone] Gi Siddiqi MD [address] [place], [place] [phone] Follow up Osteoporosis documented as of this encounter Visit Diagnoses Not on filedocumented in this encounter Care Teams Tip Inserter Relationship Specialty Start Date End Date Alejandra Osborne MD [address] [place] [address] PCP - General Family Medicine 12/18/23 Alejandra Osborne MD [address] [place] [address] Referring Family Medicine 09/08/23 documented as of this encounter
--- OUTSIDE RECORDS SUMMARY | 2025-06-14 08:59 | XMS_ITS | Encounter Summary ---
Author Organization [facility] Address [address] [place] [address] Care Team Providers Care Sustainability Executive Director Name Role Phone Alejandra Osborne MD Unavailable [phone] Alejandra Osborne MD Primary Care Provider [phone] Source Comments In the event this information is protected by the Federal Confidentiality of Alcohol and Drug AbusePatient Records regulations: The Federal rules restrict any use of the information to criminally investigate or prosecute any alcohol or drug abuse patient.[facility] Encounter Details Date Type Department Care Team (Late st Contact Info) Description 01/26/2025 Patient [facility] -[address] [place] [address] Aide Glover RPh At your next appointment, choose [facility]. Social History Tobacco Use [...] is lower risk 4 12/18/2023 Data from: https://www.neighborhoodatlas.medicine.[facility].edu/. Last address used for calculation 16[address] [...] 10:30 AM EDT Office Visit [facility] [address] [place] [address] Sveta Strong MD [address] [place], [place] [phone] lvm and mc appt rs from 06/07/25 07/07/2025 1:00 PM EDT Office Visit Gynecology [address] [place] [address] Augustina Vargas MD [address] [place], [place] [phone] Botox injection 08/02/2025 12:20 PM EDT Office Visit Rheumatology [address] [place], [place] [phone] Gi Siddiqi MD [address] [place], [place] [phone] Follow up Osteoporosis documented as of this encounter Visit Diagnoses Not on filedocumented in this encounter Care Teams Sustainability Executive Director Relationship Specialty Start Date End Date Alejandra Osborne MD [address] [place] [address] PCP - General Family Medicine 12/18/23 Alejandra Osborne MD [address] [place] [address] Referring Family Medicine 09/08/23 documented as of this encounter
--- OUTSIDE RECORDS SUMMARY | 2025-06-14 09:00 | XMS_ITS | Encounter Summary ---
Author Organization [facility] Address [address] [place] [address] Care Team Providers Care Ad Terminal Makeup Operator Name Role Phone Alejandra Osborne MD Unavailable [phone] Alejandra Osborne MD Primary Care Provider [phone] Source Comments In the event this information is protected by the Federal Confidentiality of Alcohol and Drug AbusePatient Records regulations: The Federal rules restrict any use of the information to criminally investigate or prosecute any alcohol or drug abuse patient.[facility] Encounter Details Date Type Department Care Team (Late st Contact Info) Description 12/29/2023 Patient Msg Urology [address] [address] Provider, [facility] Robotic surgery date Social History [...] is lower risk 4 12/18/2023 Data from: https://www.neighborhoodatlas.medicine.[facility].edu/. Last address used for calculation [...] 10:30 AM EDT Office Visit [facility] [address] [place] [address] Sveta Strong MD [address] [place], [place] [phone] lvm and elodia appt rs from 06/07/25 07/07/2025 1:00 PM EDT Office Visit Gynecology [address] [place] [address] Augustina Vargas MD [address] [place], [place] [phone] Botox injection 08/02/2025 12:20 PM EDT Office Visit Rheumatology [address] [place] [address] Gi Siddiqi MD [address] [place] [address] Follow up Osteoporosis documented as of this encounter Visit Diagnoses Not on filedocumented in this encounter Care Teams Ad Terminal Makeup Operator Relationship Specialty Start Date End Date Alejandra Osborne MD [address] [place] [phone] PCP - General Family Medicine 12/18/23 Alejandra Osborne MD [address] [place] [address] Referring Family Medicine 09/08/23 documented as of this encounter
--- OUTSIDE RECORDS SUMMARY | 2025-06-14 09:00 | XMS_ITS | Clinical Summary ---
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 06/02/2024 Overview (06/02/2024): Last Assessment [...] Office Visit [facility] [address] [place] [address] Tessa Steven DO Pulmonary nodule (Primary Dx) 06/02/2025 Bamboo flowsheet [facility] [address] [place] [address] Tessa Steven DO 06/02/2025 Travel from Last [...] EST Office Visit [facility] [place] [address] [facility] [phone] Keri Topete PA [address] [facility] [place] [address] 06/01/2026 8:45 AM EDT Office Visit [facility] [address] [place] [address] Tessa Steven, DO [address] [place] [address] Health Maintenance Due Date Last Done Comments [...] EST Narrative 09/30/2024 9:57 [place] [address] Mammography Report Signed Patient: KAREN ZAIDI MR#: [id number] : 1955 Acct:[id number] Age/Sex: 69 / F ADM Date: 09/30/24 Loc: MAMMO Attending Dr: Keri Topete Ordering Physician: Keri Topete Results: Date of Service: 09/30/24 Follow Up: Procedure(s): MM tomosynthesis screening BI Accession Number(s): [id number] cc: Keri Topete; Alejandra Osborne M.D. Patient Name: KAREN ZAIDI MR#: [id number] : 1955 Exam Date: 09/30/2024 Ordering Doctor: [...] Treatments None Family Cancers None LOCATION: [facility] BREAST COMPOSITION: There are scattered areas [...] Signed By: 09/30/24 0957 DD/ 0956 TD/TT: System Safety Engineer: Procedure Note Radiology, Radiologist, - 09/30/2024 [place] [address] Mammography Report Signed Patient: KAREN ZAIDI KMR#: [id number] : 1955cct:[id number] Age/Sex: 69 / FADM Date: 09/30/24 Loc: MAMMO Attending Dr: Keri Topete Ordering Physician: Keri TopeteResults: Date of Service: 09/30/24Follow Up: Procedure(s): MM tomosynthesis screening BI Accession Number(s): [id number] cc: Keri Topete; Alejandra Osborne M.D. Patient Name: KAREN ZAIDI MR#: [id number] : 1955 Exam Date: 09/30/2024 Ordering Doctor: [...] Treatments None Family Cancers None LOCATION: [facility] BREAST COMPOSITION: There are scattered areas [...] M.D. Signed By:09/30/24 0957 DD/ 0956 TD/TT: System Safety Engineer: [facility] Final Result * THINPREP PAP AND HPV MRNA E6/E7 W/RFL HPV 16,18/45 (05/29/2023 9:59 AM EDT) us Keri LIN LAB BLOOD ORDERABLES Final Resul t EXTERNAL LAB from Last 3 Months or Most Recently Relevant to Health Maintenance Insurance MEDICARE [employer] Care Teams Marketing Project Lead Relationship Specialty Start Date End Date Alejandra Osborne MD PCP - General Family Medicine 03/18/23
--- OUTSIDE RECORDS SUMMARY | 2025-06-14 09:00 | XMS_ITS | Encounter Summary ---
Author Organization [facility] Address [address] [place] [address] Care Team Providers Care Oil Pipeline Operator Name Role Phone Alejandra Osborne MD Unavailable [phone] Alejandra Osborne MD Primary Care Provider [phone] Source Comments In the event this information is protected by the Federal Confidentiality of Alcohol and Drug AbusePatient Records regulations: The Federal rules restrict any use of the information to criminally investigate or prosecute any alcohol or drug abuse patient.[facility] Encounter Details Date Type Department Care Team (Late st Contact Info) Description 12/10/2023 Patient Msg Vascular Surg Dept [address] [place] [address] Provider, [facility] Vascular Surgery Appt Social History Tobacco Use [...] 10:30 AM EDT Office Visit [facility] [address] [place] [address] Sveta Strong MD [address] [place] [address] lvm and elodia appt rs from 06/07/25 07/07/2025 1:00 PM EDT Office Visit Gynecology [address] [place] [address] Augustina Vargas MD [address] [place], [place] [phone] Botox injection 08/02/2025 12:20 PM EDT Office Visit Rheumatology [address] [facility] [place] [address] Gi Siddiqi MD [address] [place] [address] Follow up Osteoporosis documented as of this encounter Visit Diagnoses Not on filedocumented in this encounter Care Teams Oil Pipeline Operator Relationship Specialty Start Date End Date Alejandra Osborne MD [address] [place] [address] PCP - General Family Medicine 12/18/23 Alejandra Osborne MD [address] [place] [address] Referring Family Medicine 09/08/23 documented as of this encounter
--- OUTSIDE RECORDS SUMMARY | 2025-06-14 09:00 | XMS_ITS | Encounter Summary ---
Author Organization [facility] Address [id number] [address] [place] [address] Care Team Providers Care Skin Lap Bonder Name Role Phone Alejandra Osborne MD Primary Care Provider [phone] Encounter Details Date Type Department Care Team (Late st Contact Info) Description 06/13/2020 Telephone [facility] Physicians Ear, Nose and Throat [address] [facility], [address] [address] Sarah Palma MD [address] [facility] [address] [place], [place] [phone] Social History Tobacco Use Types Packs/Day Years [...] 2:50 PM EDT Pt had surgery in [place] on 05/25/2020. Pt feels like she has [...] reached through the physician access line at [phone] if you would like to speak to him. Please advise if pt should be scheduled for an appointment of if you would like to order the CT first. * Telephone Encounter - Sarah Palma MD - 06/13/2020 2:50 PM EDT Please call to get the story on this. 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 Patient underwent left styloidectomy and removal of cranial base bone 2h on 05/25/20. S She states that she was doing well however; during the post operative period, she began experiencing a stabbing pain in the throat. She saw Dr. De Leon regarding this issue and it was stated that this may be nerve related pain. She was sent home to [place] on Tylenol 650mg Q 4 hrs. She is also takingTrental 400mg TID prescribed by Dr. Loera. Patient states she is feeling a bump with her tongue on the right Midline buccal mucosal area. 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 Would a CT scan be helpful? [...] 08/09/2025 11:00 AM EDT Office Visit [facility] - ENT [address] [facility] [place] [address] Sarah Palma MD [address] [facility] [address] [place] [address] documented as of this encounter Visit Diagnoses Not on filedocumented in this encounter Additional Health Concerns Assessment Noted Time PHQ-9 Depression Total Score: 2 03/29/20 20 1:00 PM EDT documented as of this encounter Care Teams Skin Lap Bonder Relationship Specialty Start Date End Date Alejandra Osborne MD [address] [place] [phone] PCP - General 06/18/18 documented as of this encounter
--- OUTSIDE RECORDS SUMMARY | 2025-06-14 09:00 | XMS_ITS | Encounter Summary ---
Author [facility] Address [id number] [address] [place] [address] Care Team Providers Care Information Systems Security Officer Name Role Phone Alejandra Osborne MD Primary Care Provider [phone] Reason for Referral * Diagnostic Imaging (Routine) - Closed Specialty Diagnoses / Procedures Referred By Nori moore Referred To Contact Radiology Diagnoses Neck pain on right side Sialoadenitis Sublingual gland swelling Procedures MR neck soft tissue with and without contrast Sarah Palma MD [address] [address] Phone: tel: fax: Referral ID Status Reason Start Date Expiration Date Visits Re quested Visits Authorized [id number] Closed 06/30/2020 06/30/2021 1 1 Encounter Details Date Type Department Care Team (Late st Contact Info) Description 06/30/2020 Telephone [facility] - ENT [address] [facility] [place] [phone] Sarah Palma MD [address] [facility] [address] [place] [address] Social History Tobacco Use Types [...] then attempt to push the images to [place] or at least send a disc so that he can evaluate them prior to the patient's next surgery in July. I have called the patient to inform her this but had to leave a message. Michelle--can you please send her a copy of the order and also call her back to let her know to call [phone] to schedule the MRI? Thanks. documented in this encounter Plan of Treatment Upcoming Encounters Date Type Department Care Team (Late st Contact Info) Description 08/09/2025 11:00 AM EDT Office Visit [facility] - ENT [address] [facility] [place] [address] Sarah Palma MD [address] [facility] [address] [place] [address] documented as of this encounter Results * [...] documented as of this encounter Care Teams Information Systems Security Officer Relationship Specialty Start Date End Date Alejandra Osborne MD [address] [place] [phone] PCP - General 06/18/18 documented as of this encounter
--- OUTSIDE RECORDS SUMMARY | 2025-06-14 09:00 | XMS_ITS | Encounter Summary ---
Author Organization [facility] Address [id number] [address] [place] [address] Care Team Providers Care Measurement Coordinator Name Role Phone Alejandra Osborne MD Primary Care Provider [phone] Reason for Referral * Diagnostic Imaging (Routine) - Closed Specialty Diagnoses / Procedures Referred By Contac t Referred To Contact Radiology Diagnoses Pain Procedures CT lumbar spine with and without contrast [facility] [address] [place] [phone] Phone: tel: fax: Referral ID Status Reason Start Date Expiration Date Visits Re quested Visits Authorized [id number] Closed 03/20/2023 03/19/2024 1 1 Encounter Details Date Type Department Care Team (Late st Contact Info) Description 03/20/2023 Orders Only [facility] [address] [place] [phone] Transcribe, Orders Support User Pain (Primary [...] Office Visit [facility] - ENT [address] [place] [address], [address] [place] [address] [place] [address] [place] [address] [address] [place] [address] documented as of this encounter Results * [...] documented as of this encounter Care Teams Measurement Coordinator Relationship Specialty Start Date End Date Alejandra Osborne MD [address] [place] [address] PCP - General 06/18/18 documented as of this encounter
--- OUTSIDE RECORDS SUMMARY | 2025-06-14 09:00 | XMS_ITS | Clinical Summary ---
Author Organization [facility] Address [address] [facility], [address] [place] [address] Care Team Providers Care Condemnation Engineer Name Role Phone Unavailable Primary Care Provider Unavailabl e Encounters Date Type Department Care Team Description 03/31/2025 8:22 AM EDT - 03/31/2025 11:59 PM EDT Hospital Encounter [facility] Physical Therapy [address] [place] [address] Angelina Lantigua PTA Discharge Disposition: Home or Self Care 03/28/2025 9:11 AM EDT - 03/28/2025 11:59 PM EDT Hospital Encounter [facility] Physical Therapy [address] [place] [address] Cedrick Perera Discharge Disposition: Home or Self Care 03/21/2025 8:28 AM EDT - 03/21/2025 11:59 PM EDT Hospital Encounter [facility] Physical Therapy [address] [place] [address] Cedrick Perera Discharge Disposition: Home or Self Care 03/16/2025 9:07 AM EDT - 03/16/2025 11:59 PM EDT Hospital Encounter [facility] Physical Therapy [address] [place] [address] Cedrick Perera Discharge Disposition: Home or Self Care 03/14/2025 9:11 AM EDT - 03/14/2025 11:59 PM EDT Hospital Encounter [facility] Physical Therapy [address] [place] [address] Cedrick Perera Discharge Disposition: Home or Self Care from [...] 2 - PCV) 06/30/2021 06/30/2020 COVID-19 Vaccine (1 - season) 2024 Annual Wellness Visit (Medicare) [...]
--- OUTSIDE RECORDS SUMMARY | 2025-06-14 09:00 | XMS_ITS | Encounter Summary ---
Author Organization [facility] Address [facility] [place] [address] Care Team Providers Care Shipping And Receiving Assistant Name Role Phone Alejandra Osborne MD Unavailable [phone] Alejandra Osborne MD Primary Care Provider [phone] Source Comments In the event this information is protected by the Federal Confidentiality of Alcohol and Drug AbusePatient Records regulations: The Federal rules restrict any use of the information to criminally investigate or prosecute any alcohol or drug abuse patient.[facility] Reason for Visit * Reason Comments Appointment Encounter Details Date Type Department Care Team (Late st Contact Info) Description 03/28/2025 Telephone Res[facility] [place] [address] [place] [address] Gi Siddiqi MD [address] [place] [address] Appointment Social History Tobacco Use [...] risk 4 12/18/2023 Data from: https://www.neighborhoodatlas.medicine.[facility]/. Last address used for calculation [...] EDT Please advise patient that any of [facility] Services Mgr would be good. The consult is for [...] calling: self Call patient at: at home [phone] (home) [phone] (work) [phone] (cell) Was an appointment scheduled: No Closing statement: Results or non-symptom based questions: Thank you for calling [facility], your call will be returned within the next business day. Radha Davis documented in this encounter Plan of Treatment Upcoming Encounters Date Type Department Care Team (Late st Contact Info) Description 07/04/2025 10:30 AM EDT Office Visit [facility] [address] [place] [address] Sveta Strong MD [address] [place], [place] [phone] lvm and elodia appt rs from 06/07/25 07/07/2025 1:00 PM EDT Office Visit Gynecology [address] [place] [address] Augustina Vargas MD [address] [place], [place] [address] Botox injection 08/02/2025 12:20 PM EDT Office Visit Rheumatology [address] [facility] [address] Gi Siddiqi MD [address] [place] [address] Follow up Osteoporosis documented as of this encounter Visit Diagnoses Not on filedocumented in this encounter Care Teams Shipping And Receiving Assistant Relationship Specialty Start Date End Date Alejandra Osborne MD [address] [place] [address] PCP - General Family Medicine 12/18/23 Alejandra Osborne MD [address] [place] [address] Referring Family Medicine 09/08/23 documented as of this encounter
--- OUTSIDE RECORDS SUMMARY | 2025-06-14 09:00 | XMS_ITS | Encounter Summary ---
Author Organization [facility] Address [address] [place] [address] Care Team Providers Care Site Acquisition Manager Name Role Phone Alejandra Osborne MD Primary Care Provider [phone] Encounter Details Date Type Department Care Team (Late st Contact Info) Description 09/30/2024 Clinisync Result Encounter [facility] External Department Unsolicited Keri Topete PA [address] [facility] [address] [place], [facility] Social History Tobacco Use Types Packs/Day Years [...] AM EST Office Visit [facility] [address] [facility] [place] [phone] Keri Topete PA [address] [facility] [address] [place], [place] [phone] 06/01/2026 8:45 AM EDT Office Visit [facility] [address] [place] [address] Tenisha Tessa Jose Manuel, DO [address] [place] [address] documented as of this encounter Procedures Procedure Name Priority Date/Time Associated Diagnosis Comments MM TOMOSYNTHESIS SCREENING BI 09/30/2024 9:56 AM EST documented in this encounter Results * MM TOMOSYNTHESIS SCREENING BI (09/30/2024 9:56 AM EST) Anatomical Region Laterality Modality Other 09/30/2024 9:56 AM EST Narrative 09/30/2024 9:57 AM EST The [address] [address] Mammography Report Signed Patient: KAREN ZAIDI MR#: [id number] : 1955 Acct:[id number] Age/Sex: 69 / F ADM Date: 09/30/24 Loc: MAMMO Attending Dr: Keri Topete Ordering Physician: Keri Topete Results: Date of Service: 09/30/24 Follow Up: Procedure(s): MM tomosynthesis screening BI Accession Number(s): [id number] cc: Keri Topete; Alejandra Osborne M.D. Patient Name: KAREN ZAIDI MR#: [id number] : 1955 Exam Date: 09/30/2024 Ordering Doctor: [...] Treatments None Family Cancers None LOCATION: [facility] BREAST COMPOSITION: There are scattered areas [...] M.D. Signed By: 09/30/24 0957 DD/ TD/TT: Propagation Manager: Procedure Note Radiology, Radiologist, MD - 09/30/2024 [place] [address] Mammography Report Signed Patient: KAREN ZAIDI KMR#: [id number] : 1955cct:[id number] Age/Sex: 69 / FADM Date: 09/30/24 Loc: MAMMO Attending Dr: Keri Topete Ordering Physician: Keri TopeteResults: Date of Service: 09/30/24Follow Up: Procedure(s): MM tomosynthesis screening BI Accession Number(s): [id number] cc: Keri Topete; Alejandra Osborne M.D. Patient Name: KAREN ZAIDI MR#: [id number] : 1955 Exam Date: 09/30/2024 Ordering Doctor: [...] Treatments None Family Cancers None LOCATION: [facility] BREAST COMPOSITION: There are scattered areas [...] MD on 09/30/2024 at 09:55 Approved by: oBogie Mina MD on 09/30/2024 at 09:56 Dictated By: Boogie Mina M.D. Signed By:09/30/2457 DD/ 5 TD/TT: Propagation Manager: us [facility] Final Result documented in this encounter Visit Diagnoses Not on filedocumented in this encounter Care Teams Site Acquisition Manager Relationship Specialty Start Date End Date Alejandra Osborne MD PCP - General Family Medicine 03/18/23 documented as of this encounter
--- OUTSIDE RECORDS SUMMARY | 2025-06-14 09:00 | XMS_ITS | Encounter Summary ---
Author Organization [facility] Address [address] [place] [address] Care Team Providers Care Basic Combatant Swimmer Name Role Phone Alejandra Osborne MD Primary Care Provider [phone] Encounter Details Date Type Department Care Team [...] AM EST Office Visit [facility] [address] [place] [phone] Keri Topete PA [address] [place] [address] 06/01/2026 8:45 AM EDT Office Visit [facility] [address] [place] [address] Tessa Steven DO [address] [place] [address] documented as of this encounter Visit Diagnoses Not on filedocumented in this encounter Care Teams Basic Combatant Swimmer Relationship Specialty Start Date End Date Alejandra Osborne MD PCP - General Family Medicine 03/18/23 documented as of this encounter
--- OUTSIDE RECORDS SUMMARY | 2025-06-14 09:00 | XMS_ITS | Encounter Summary ---
Author Organization [facility] Address [address] [place] [address] Care Team Providers Care Guest Services Director Name Role Phone Alejandra Osborne MD Primary Care Provider [phone] Encounter Details Date Type Department Care Team (Late st Contact Info) Description 09/29/2023 Clinisync Result Encounter [facility] External Department Unsolicited Keri Cruz PA [address] [place] [id number] Social History Tobacco Use Types Packs/Day Years [...] AM EST Office Visit OLAMIDE MIRANDA [address] [address] Keri Cruz PA [address] [place] [address] 06/01/2026 8:45 AM EDT Office Visit [facility] [address] [place] [address] Tessa Steven DO [address] [place] [address] documented as of this encounter Procedures Procedure Name Priority Date/Time Associated Diagnosis Comments XR DEXA AXIAL SKELETON 09/29/2023 8:45 AM EST documented in this encounter Results * XR DEXA AXIAL SKELETON (09/29/2023 8:45 AM EST) Anatomical Region Laterality Modality Other 09/29/2023 8:45 AM EST Narrative 09/29/2023 8:48 [place] [address] XRay Report Signed Patient: Karen Zaidi MR#: [id number] : 1955 Acct:[id number] Age/Sex: 68 / F ADM Date: 09/29/23 Loc: MAMMO Attending Dr: Keri Cruz Ordering Physician: Keri Cruz Date of Service: 09/29/23 Procedure(s): XR DEXA axial skeleton Accession Number(s): [id number] cc: Keri Cruz; Alejandra Osborne M.D. [address] [address] Patient Name: KAREN ZAIDI MRN: [id number] date: 1955 Sex: F Assigned Patient Location: [facility] Current Patient Location: [facility] Accession/Order Number: [id number] Exam Date: 09/29/2023 08:16 Report Date: 09/29/2023 [...] M.D. Signed By: 09/29/2348 DD/ 4 TD/TT: Superintendent Terminal: Procedure Note Radiology, Radiologist, - 09/29/2023 [place] [address] XRay Report Signed Patient: Karen Zaidi KMR#: [id number] : 1955cct:[id number] Age/Sex: 68 / FADM Date: 09/29/23 Loc: MAMMO Attending Dr: Keri Cruz Ordering Physician: Keri Cruz Date of Service: 09/29/23 Procedure(s): XR DEXA axial skeleton Accession Number(s): [id number] cc: Keri Cruz; Alejandra Osborne M.D. [place] [id number] Patient Name: KAREN ZAIDI MRN: [id number] date: 1955 Sex: F Assigned Patient Location: [facility] Current Patient Location: [facility] Accession/Order Number: [id number] Exam Date: 09/29/2023 08:16 Report Date: 09/29/2023 [...] Jamison Leblanc M.D. Signed By:09/29/2348 DD/ TD/TT: Superintendent Terminal: Keri [facility] Final Result documented in this encounter Visit Diagnoses Not on filedocumented in this encounter Care Teams Guest Services Director Relationship Specialty Start Date End Date Alejandra Osborne MD PCP - General Family Medicine 03/18/23 documented as of this encounter
--- OUTSIDE RECORDS SUMMARY | 2025-06-14 09:00 | XMS_ITS | Encounter Summary ---
Author Organization [facility] Address [address] [place] [address] Care Team Providers Care Car Scrubber Name Role Phone Alejandra Osborne MD Unavailable [phone] Alejandra Osborne MD Primary Care Provider [phone] Source Comments In the event this information is protected by the Federal Confidentiality of Alcohol and Drug AbusePatient Records regulations: The Federal rules restrict any use of the information to criminally investigate or prosecute any alcohol or drug abuse patient.[facility] Encounter Details Date Type Department Care Team (Late st Contact Info) Description 01/10/2024 Patient Msg Cardiology [address] [place] [address] Provider, Ccf Appointment Cancellation Request [...] is lower risk 4 12/18/2023 Data from: https://www.neighborhoodatlas.medicine.[facility].edu/. Last address used for calculation [address] [...] 10:30 AM EDT Office Visit [facility] INTER[facility]ION [facility] [address] [place] [address] Sveta Strong MD [address] [place], [place] [phone] lvm and elodia appt rs from 06/07/25 07/07/2025 1:00 PM EDT Office Visit Gynecology [address] [place] [address] Augustina Vargas MD [address] [place], [place] [phone] Botox injection 08/02/2025 12:20 PM EDT Office Visit Rheumatology [address] [place] [address] Gi Siddiqi MD [address] [place] [address] Follow up Osteoporosis documented as of this encounter Visit Diagnoses Not on filedocumented in this encounter Care Teams Car Scrubber Relationship Specialty Start Date End Date Alejandra Obsorne MD [address] [place] [address] PCP - General Family Medicine 12/18/23 Alejandra Osborne MD [address] [place] [address] Referring Family Medicine 09/08/23 documented as of this encounter
--- OUTSIDE RECORDS SUMMARY | 2025-06-14 09:00 | XMS_ITS | Clinical Summary ---
Author Organization [employer] tem Address [id number] [address] 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 Encounters Date Type Department Care Team Description 04/25/2025 9:27 AM EDT - 04/25/2025 11:59 PM EDT Hospital Encounter [facility] - CT Imaging [address] [place] [address] Pulmonary nodule Discharge Disposition: Home 04/24/2025 Travel [...] Upcoming Encounters Date Type Department Care Team ([facility] Contact Info) Description 08/09/2025 11:00 AM EDT Office Visit [facility] - ENT [address] [place] [address], [address] [place] [address] Sarah Palma MD [address] [facility] [address] [place] [address] Health Maintenance Due Date Last [...] detection for pulmonary nodules was performed utilizing [employer] software. Finalized by Dayday Rodriguez MD on [...] aided detection for pulmonary nodules was performed utilizingBackyard Brains software. Finalized by Dayday Rodriguez MD on [...] Recently Relevant to Health Maintenance Insurance [address] [place] [id number] [facility] Care Teams Field Service Representative Relationship Specialty Start Date End Date Alejandra Osborne MD [address] [place] [address] PCP - General 06/18/18
--- OUTSIDE RECORDS SUMMARY | 2025-06-14 09:00 | XMS_ITS | Encounter Summary ---
Author Organization [facility] Address [address] [place] [address] Care Team Providers Care High School Band Teacher Name Role Phone Alejandra Osborne MD Unavailable [phone] Alejandra Osborne MD Primary Care Provider [phone] Source Comments In the event this information is protected by the Federal Confidentiality of Alcohol and Drug AbusePatient Records regulations: The Federal rules restrict any use of the information to criminally investigate or prosecute any alcohol or drug abuse patient.[facility] Encounter Details Date Type Department Care Team (Late st Contact Info) Description 05/01/2024 [place] [address] Provider, Ccf Actionable Imaging Result Notification Patient [...] is lower risk 4 12/18/2023 Data from: https://www.neighborhoodatlas.[facility]/. Last address used for calculation [...] AM EDT Office Visit [facility] [address] [place] [address] Sveta Strong MD [address] [place], [place] [phone] lvm and elodia appt rs from 06/07/25 07/07/2025 1:00 PM EDT Office Visit Gynecology [address] [place] [address] Augustina Vargas MD [address] [place], [place] [phone] Botox injection 08/02/2025 12:20 PM EDT Office Visit Rheumatology [address] [place] [address] Gi Siddiqi MD [address] [place] [address] Follow up Osteoporosis documented as of this encounter Visit Diagnoses Not on filedocumented in this encounter Care Teams High School Band Teacher Relationship Specialty Start Date End Date Alejandra Osborne MD [address] [place] [address] PCP - General Family Medicine 12/18/23 Alejandra Osborne MD [address] [place] [address] Referring Family Medicine 09/08/23 documented as of this encounter
--- OUTSIDE RECORDS SUMMARY | 2025-06-14 09:00 | XMS_ITS | Encounter Summary ---
Author Organization [facility] tem Address [id number] [address] [place] [address] Care Team Providers Care Cargo Mate Name Role Phone Alejandra Osborne MD Primary Care Provider [phone] Encounter Details Date Type Department Care Team (Late st Contact Info) Description 11/13/2023 Telephone [facility] - ENT [address] [place] [address], [address] [place] [address] Sarah Palma MD [address] [facility] [address] [place] [address] Social History Tobacco Use Types [...] or what do you advise? Vascular at [place] is who told her to use 800 [...] Upcoming Encounters Date Type Department Care Team ([facility] st Contact Info) Description 08/09/2025 11:00 AM EDT [facility] [address] [place] [address], [address] [place] [address] Sarah Palma MD [address] [facility] [address] [place] [address] documented as of this encounter Visit Diagnoses Not on filedocumented in this encounter Additional Health Concerns Assessment Noted Time PHQ-9 Depression Total Score: 2 03/29/20 20 1:00 PM EDT documented as of this encounter Care Teams Cargo Mate Relationship Specialty Start Date End Date Alejandra Osborne MD [facility] [place] [address] PCP - General 06/18/18 documented as of this encounter
--- OUTSIDE RECORDS SUMMARY | 2025-06-14 09:00 | XMS_ITS | Encounter Summary ---
Author Organization [facility] Address [address] [place] [address] Care Team Providers Care Virtual Assistant For Advertisers Name Role Phone Alejandra Osborne MD Unavailable [phone] Alejandra Osborne MD Primary Care Provider [phone] Source Comments In the event this information is protected by the Federal Confidentiality of Alcohol and Drug AbusePatient Records regulations: The Federal rules restrict any use of the information to criminally investigate or prosecute any alcohol or drug abuse patient.[facility] Encounter Details Date Type Department Care Team (Late st Contact Info) Description 01/10/2024 Patient Msg Vascular Surg Dept [address] [place] [address] Provider, Ccf Appointment Cancellation Request [...] is lower risk 4 12/18/2023 Data from: https://www.neighborhoodatlas.medicine.[facility].edu/. Last address used for calculation [address] [...] 10:30 AM EDT Office Visit [facility] INTERVENTION [facility] [address] [place] [address] Sveta Strong MD [address] [place], [place] [phone] lvm and appt rs from 06/07/25 07/07/2025 1:00 PM EDT Office Visit Gynecology [address] [place] [address] Augustina Vargas MD [address] [place], [place] [address] Botox injection 08/02/2025 12:20 PM EDT Office Visit Rheumatology [address] [place] [address] Gi Siddiqi MD [address] [place] [address] Follow up Osteoporosis documented as of this encounter Visit Diagnoses Not on filedocumented in this encounter Care Teams Virtual Assistant For Advertisers Relationship Specialty Start Date End Date Alejandra Osborne MD [address] [place] [address] PCP - General Family Medicine 12/18/23 Alejandra Osborne MD [address] [place] [address] Referring Family Medicine 09/08/23 documented as of this encounter
--- OUTSIDE RECORDS SUMMARY | 2025-06-14 09:00 | XMS_ITS | Encounter Summary ---
Author Organization [facility] Address [address] [place] [address] Care Team Providers Care Media Developer Name Role Phone Alejandra Osborne MD Unavailable [phone] Alejandra Osborne MD Primary Care Provider [phone] Source Comments In the event this information is protected by the Federal Confidentiality of Alcohol and Drug AbusePatient Records regulations: The Federal rules restrict any use of the information to criminally investigate or prosecute any alcohol or drug abuse patient.[facility] Encounter Details Date Type Department Care Team (Late st Contact Info) Description 03/23/2025 Patient Msg Cardiology [address] [place] [address] Caty Hall, PSS Dr Strong Appointment Social [...] is lower risk 4 12/18/2023 Data from: https://www.neighborhoodatlas.medicine.[facility].edu/. Last address used for calculation [address] [...] 10:30 AM EDT Office Visit [facility] [address] [place] [address] Sveta Strong MD [address] [place], [place] [phone] lvm and mc appt rs from 06/07/25 07/07/2025 1:00 PM EDT Office Visit Gynecology [address] [place] [address] Augustina Vargas MD [address] [place], [place] [address] Botox injection 08/02/2025 12:20 PM EDT Office Visit Rheumatology [address] [place], [place] [address] Gi Siddiqi MD [address] [place], [place] [address] Follow up Osteoporosis documented as of this encounter Visit Diagnoses Not on filedocumented in this encounter Care Teams Media Developer Relationship Specialty Start Date End Date Alejandra Osborne MD [address] [place] [address] PCP - General Family Medicine 12/18/23 Alejandra Osborne MD [address] [place] [address] Referring Family Medicine 09/08/23 documented as of this encounter
--- OUTSIDE RECORDS SUMMARY | 2025-06-14 09:00 | XMS_ITS | Encounter Summary ---
Author Organization [facility] Address [facility] [place] [address] Care Team Providers Care Lining Stuffer Name Role Phone Alejandra Osborne MD Unavailable [phone] Alejandra Osborne MD Primary Care Provider [phone] Source Comments In the event this information is protected by the Federal Confidentiality of Alcohol and Drug AbusePatient Records regulations: The Federal rules restrict any use of the information to criminally investigate or prosecute any alcohol or drug abuse patient.[facility] Encounter Details Date Type Department Care Team (Late st Contact Info) Description 12/30/2023 Patient Msg [facility] [address] [place] [address] Provider, Ccf Urology Pre Op Surgery Instructions [...] 10:30 AM EDT Office Visit [facility] [address] [place] [address] Sveta Strong MD [address] [place], [place] [phone] lvm and mc appt rs from 06/07/25 07/07/2025 1:00 PM EDT Office Visit Gynecology [address] [place] [address] Augustina Vargas MD [address] [place], [place] [address] Botox injection 08/02/2025 12:20 PM EDT Office Visit Rheumatology [address] [place] [address] Gi Siddiqi MD [address] [place] [address] Follow up Osteoporosis documented as of this encounter Visit Diagnoses Not on filedocumented in this encounter Care Teams Lining Stuffer Relationship Specialty Start Date End Date Alejandra Osborne MD [address] [place] [address] PCP - General Family Medicine 12/18/23 Alejandra Osborne MD [address] [place] [address] Referring Family Medicine 09/08/23 documented as of this encounter
--- OUTSIDE RECORDS SUMMARY | 2025-06-14 09:00 | XMS_ITS | Patient Health Record ---
Author Organization [facility] Address [address] [place] [address] Care Team Providers Care Sebd Teacher Name Role Phone Alejandra Osborne M.D. Primary Care Provider Unavail able Ivan Trejo Unavailable [phone] Keri Zavala Unavailable Allergies Allergen (clinical drug ingredient) Drug/Non Drug Allergy documented on EMR Reaction Allergy Type Onset Date Status BEES (uncoded) Unknown Allergy Activ e doxycycline doxycycline Unknown Drug Allergy Act silvestre clindamycin clindamycin Unknown Drug Allergy Act silvestre Results Component Value Reference Range Notes [facility] [id number] Reviewed date:12/30/2024 01:21:51 PM Interpretation: Performing Lab: Notes/Report: MRI : Hip Right without - [id number] 721 Reviewed date:12/10/2024 11:43:22 AM Interpretation: Performing Lab: Notes/Report: [facility] [id number] Reviewed date:11/02/2024 03:36:18 PM Interpretation: Performing Lab: Notes/Report: Reason For Referral Reason NAYE................. ...........PLEASE OBTAIN AUTHORIZATION FOR MRI RIGHT HIP Diagnosis 1 Acute right hip pain (M25.551) Referral Organization [facility] Referring Provider First Name Ivan Referring Provider Last Name Neil Referring Provider Speciality Orthopedic Surgery Referred Organization [facility] Tamiko tran Referred Address [place], [place], Procedure 1 Arthroplasty Hip Tot al ([address]) General Notes PER AVAILITYWOODROW IS ACTIVE PART [...] 11/29/2024 Encounters Encounter Location Date Provider Diagnosis [address] [place] [address] 09/06/2024 Keri Zavala Acute right hip pain M25.[address] [place] [address] 09/20/2024 Ivan Trejo Closed fracture of right inferior pubic ramus, initial encounter S32.591A ; Closed fracture of superior ramus of right pubis, initial encounter S32.511A and Closed fracture of superior ramus of left pubis, initial encounter S32.512A [address] [address] 11/01/2024 Keri Zavala Closed fracture of superior ramus of right pubis, initial encounter S32.511A ; Closed fracture of right inferior pubic ramus, initial encounter S32.591A and Closed fracture of superior ramus of left pubis, initial encounter S32.512A [address] [place] [address] 11/29/2024 Keri Zavala Closed fracture of superior [...] Date Coverage End [place] [place] [address] [id number] ZAYNAB LUTZ Self - patient is the insured [facility] [employer] [address] [place] [address] [id number] ZAYNAB LUTZ Self - patient is the insured
--- OUTSIDE RECORDS SUMMARY | 2025-06-14 09:00 | XMS_ITS | Encounter Summary ---
Author Organization [facility] Address [address] [place] [address] Care Team Providers Care Pre Algebra Teacher Name Role Phone Alejandra Osborne MD Primary Care Provider [phone] Encounter Details Date Type Department Care Team (Late st Contact Info) Description 03/21/2023 Abstract [facility] [address] [facility] [place] [address] Keri Topete, PA [address] [place] [address] [place], [place] [phone] Social History Tobacco Use Types Packs/Day Years [...] AM EST Office Visit OLAMIDE MIRANDA [address] [facility] [place] [address] Keri Topete, PA [address] [facility] [address] [place], [place] [address] 06/01/2026 8:45 AM EDT Office Visit [facility] [address] [place] [phone] Tessa Steven DO [address] [place] [address] documented as of this encounter Visit Diagnoses Not on filedocumented in this encounter Care Teams Pre Algebra Teacher Relationship Specialty Start Date End Date Alejandra Osborne MD PCP - General Family Medicine 03/18/23 documented as of this encounter
--- OUTSIDE RECORDS SUMMARY | 2025-06-14 09:00 | XMS_ITS | Encounter Summary ---
Author Organization [employer] Address [id number] [address] [place] [address] Care Team Providers Care Mechanical Engineering Intern Name Role Phone Alejandra Osborne MD Primary Care Provider [phone] Encounter Details Date Type Department Care Team (Late st Contact Info) Description 05/14/2023 Telephone [facility] [address] [place] [address] Raoul Gallardo MD [address] [place], [place] [address] Social History Tobacco Use Types Packs/Day Years [...] Upcoming Encounters Date Type Department Care Team ([facility] st Contact Info) Description 08/09/2025 11:00 AM EDT Office Visit [facility] - ENT [address] [place] [address], [address] [place] [address] Sarah Palma MD [address] [facility] [address] [place] [address] documented as of this encounter Visit Diagnoses Not on filedocumented in this encounter Additional Health Concerns Assessment Noted Time PHQ-9 Depression Total Score: 2 03/29/20 20 1:00 PM EDT documented as of this encounter Care Teams Mechanical Engineering Intern Relationship Specialty Start Date End Date Alejandra Osborne MD [address] [place] [address] PCP - General 06/18/18 documented as of this encounter
--- OUTSIDE RECORDS SUMMARY | 2025-06-14 09:00 | XMS_ITS | Encounter Summary ---
Author Organization [facility] Address [address] [place] [address] Care Team Providers Care Fruit And Vegetable Inspector Name Role Phone Alejandra Osborne MD Primary Care Provider [phone] Encounter Details Date Type Department Care Team (Late st Contact Info) Description 06/02/2025 Bamboo flowsheet [facility] [place] [facility] [address] [place] [address] Tessa Steven DO [address] [address] Social History Tobacco Use Types Packs/Day Years [...] EST Office Visit [facility] MIRANDA [address] [facility] [place] [address] Keri Topete PA [address] [facility] [place] [address] 06/01/2026 8:45 AM EDT Office Visit [facility] [place] [facility] [address] [place] [address] Tessa Steven, [address] [place] [address] documented as of this encounter Visit Diagnoses Not on filedocumented in this encounter Care Teams Fruit And Vegetable Inspector Relationship Specialty Start Date End Date Alejandra Osborne MD PCP - General Family Medicine 03/18/23 documented as of this encounter
--- OUTSIDE RECORDS SUMMARY | 2025-06-14 09:00 | XMS_ITS | Encounter Summary ---
Author Organization [facility] tem Address [id number] [address] [place] [address] Care Team Providers Care Motion Designer Name Role Phone Alejandra Osborne MD Primary Care Provider [phone] Encounter Details Date Type Department Care Team (Late st Contact Info) Description 11/14/2023 Telephone [facility] - ENT [address] [place] [address], [address] [place] [address] Sarah Palma MD [address] [facility] [address] [place] [address] Social History Tobacco Use Types [...] Description 08/09/2025 11:00 AM EDT Office Visit [facility] - ENT [address] [place] [address], [address] [place] [address] [place] [address] [place] [address] [address] [place] [address] documented as of this encounter Visit Diagnoses Not on filedocumented in this encounter Additional Health Concerns Assessment Noted Time PHQ-9 Depression Total Score: 2 03/29/20 20 1:00 PM EDT documented as of this encounter Care Teams Motion Designer Relationship Specialty Start Date End Date Alejandra Osborne MD [address] [place] [address] PCP - General 06/18/18 documented as of this encounter
--- OUTSIDE RECORDS SUMMARY | 2025-06-14 09:00 | XMS_ITS | Encounter Summary ---
Author Organization [facility] Address [address] [place] [address] Care Team Providers Care Robot Operator Name Role Phone Alejandra Osborne MD Primary Care Provider [phone] Encounter Details Date Type Department Care Team (Late st Contact Info) Description 04/01/2023 Abstract [facility] MIRANDA [address] [place] [phone] Edward Silva DO [address] [facility] [address] [place], [place] [id number] Social History Tobacco Use Types Packs/Day Years [...] AM EST Office Visit OLAMIDE MIRANDA [address] [place] [address] Keri Topete PA [address] [place], [place] [phone] 06/01/2026 8:45 AM EDT Office Visit [facility] [address] [place] [phone] Tessa Steven DO [address] [place] [address] documented as of this encounter Visit Diagnoses Not on filedocumented in this encounter Care Teams Robot Operator Relationship Specialty Start Date End Date Alejandra Osborne MD PCP - General Family Medicine 03/18/23 documented as of this encounter
--- OUTSIDE RECORDS SUMMARY | 2025-06-14 09:00 | XMS_ITS | Encounter Summary ---
Author Organization [facility] tem Address [facility] [id number] [address] [place] [address] Care Team Providers Care Channel Process Plant Operator Name Role Phone Alejandra Osborne MD Primary Care Provider [phone] Encounter Details Date Type Department Care Team (Late st Contact Info) Description 10/07/2023 Telephone [facility] - E[facility] [address] [place] [address], [address] [place] [address] Sarah Palma MD [address] [facility] [address] [place] [address] Social History Tobacco Use Types [...] Anesthesia: General Surgery Time: 1.5h Facility Preference: [facility] Admission status: Outpatient Medical Clearance Required?: No Stereotactic Navigation? No Nerve Monitor? No ASA Level? 2 Special Equipment? sialoendoscopy Follow-up Interval 1-2 weeks Follow-up Provider (LICENSED PSYCHIATRIC TECHNICIAN or Physician) either Additional Comments: none documented in this encounter Plan of Treatment Upcoming Encounters Date Type Department Care Team (Late st Contact Info) Description 08/09/2025 11:00 AM EDT Office Visit [facility] - ENT [address] [place] [address], [address] [place] [phone] [place] [address] [place] [address] [address] [place] [address] documented as of this encounter Visit Diagnoses Not on filedocumented in this encounter Additional Health Concerns Assessment Noted Time PHQ-9 Depression Total Score: 2 03/29/20 20 1:00 PM EDT documented as of this encounter Care Teams Channel Process Plant Operator Relationship Specialty Start Date End Date Alejandra Osborne MD [address] [place] [id number] PCP - General 06/18/18 documented as of this encounter
--- OUTSIDE RECORDS SUMMARY | 2025-06-14 09:00 | XMS_ITS | Encounter Summary ---
Author Organization [facility] Address [address] [place] [address] Care Team Providers Care Carpenter Repairer Name Role Phone Alejandra Osborne MD Primary Care Provider [phone] Encounter Details Date Type Department Care Team (Late st Contact Info) Description 09/29/2023 Clinisync Result Encounter [facility] External Department Unsolicited Keri Topete PA [address] [facility] [facility] [address] [place] [phone] Social History Tobacco Use Types Packs/Day Years [...] AM EST Office Visit OLAMIDE MIRANDA [address] [place] [address] Keri Topete PA [address] [facility] [place] [address] 06/01/2026 8:45 AM EDT Office Visit [facility] [address] [place] [address] Tessa Steven DO [address] [place] [address] documented as of this encounter Procedures Procedure Name Priority Date/Time Associated Diagnosis Comments MM TOMOSYNTHESIS SCREENING BI 09/29/2023 2:39 PM EST documented in this encounter Results * MM TOMOSYNTHESIS SCREENING BI (09/29/2023 2:39 PM EST) Anatomical Region Laterality Modality Other 09/29/2023 2:39 PM EST Narrative 09/29/2023 2:40 [place] [address] Mammography Report Signed Patient: Karen Zaidi MR#: [id number] : 1955 Acct:[id number] Age/Sex: 68 / F ADM Date: 09/29/23 Loc: MAMMO Attending Dr: Keri Topete Ordering Physician: Keri Topete Results: Date of Service: 09/29/23 Follow Up: Procedure(s): MM tomosynthesis screening BI Accession Number(s): [id number] cc: Keri Topete; Alejandra Osborne M.D. Patient Name: KAREN ZAIDI MR#: [id number] : 1955 Exam Date: 09/29/2023 Ordering Doctor: [...] Treatments None Family Cancers None LOCATION: [facility] BREAST COMPOSITION: Scattered areas fibroglandular density. FINDINGS: DIAGNOSTIC CATEGORY 1--NEGATIVE. NO CHANGE FROM COMPARISON ASSESSMENT. RIGHT BREAST: No significant suspicious finding. [place] marker indicates a scab from the patient's [...] Signed By: 09/29/23 1440 DD/ 1439 TD/TT: Shuttle Bus Driver: Procedure Note Radiology, Radiologist, MD - 09/29/2023 [place] [address] Mammography Report Signed Patient: Karen Zaidi KMR#: [id number] : 1955cct:[id number] Age/Sex: 68 / FADM Date: 09/29/23 Loc: MAMMO Attending Dr: Keri Topete Ordering Physician: Keri TopeteResults: Date of Service: 09/29/23Follow Up: Procedure(s): MM tomosynthesis screening BI Accession Number(s): [id number] cc: Keri Topete; Alejandra Osborne M.D. Patient Name: KAREN ZAIDI MR#: [id number] : 1955 Exam Date: 09/29/2023 Ordering Doctor: [...] Treatments None Family Cancers None LOCATION: [facility] BREAST COMPOSITION: Scattered areas fibroglandular density. FINDINGS: DIAGNOSTIC CATEGORY 1--NEGATIVE. NO CHANGE FROM COMPARISON ASSESSMENT. RIGHT BREAST: No significant suspicious finding. [place] markerindicates a scab from the patient's recent [...] M.D. Signed By:09/29/23 1440 DD/ 1439 TD/TT: Shuttle Bus Driver: us [facility] Final Result documented in this encounter Visit Diagnoses Not on filedocumented in this encounter Care Teams Carpenter Repairer Relationship Specialty Start Date End Date Alejandra Osborne MD PCP - General Family Medicine 03/18/23 documented as of this encounter
--- OUTSIDE RECORDS SUMMARY | 2025-06-14 09:00 | XMS_ITS | Encounter Summary ---
Author Organization [facility] Address [address] [place] [address] Care Team Providers Care Pulverizer Name Role Phone Alejandra Osborne MD Primary Care Provider Encounter Details Date Type Department Care Team (Late st Contact Info) Description 11/30/2024 Orders Only OLAMIDE MIRANDA [address] [place] [address] [place] [address] Jagruti Flowers LPN [address] [facility] [address] [place] [address] Social History Tobacco Use Types Packs/Day Years [...] 9:00 AM EST Office Visit OLAMIDE MIRANDA [address] [place] [address] [place] [address] Keri Topete PA [address] [facility] [address] [place], [facility] 06/01/2026 8:45 AM EDT Office Visit [facility] [place] [facility] [address] [place] [address] Tessa Steven DO [address] [place] [address] documented as of this encounter Procedures Procedure [...] on filedocumented in this encounter Care Teams Pulverizer Relationship Specialty Start Date End Date Alejandra Osborne MD PCP - General Family Medicine 03/18/23 documented as of this encounter
--- OUTSIDE RECORDS SUMMARY | 2025-06-14 09:00 | XMS_ITS | Encounter Summary ---
Author Organization [facility] Address [address] [place] [address] Care Team Providers Care Air Chief Marshal Name Role Phone Alejandra Osborne MD Primary Care Provider [phone] Encounter Details Date Type Department Care Team (Late st Contact Info) Description 12/20/2024 Orders Only NOMTamiko MIRANDA [address] [facility] [place] [address] Irene Grace ID Social History Tobacco Use Types Packs/Day Years [...] Description 12/08/2025 9:00 AM EST Office Visit NOMTamkio MIRANDA [address] [facility] [place] [place] [address] Keri Topete PA [address] [facility] [address] [place], [place] [phone] 06/01/2026 8:45 AM EDT Office Visit [facility] [address] [place] [address] Tessa Steven, DO [address] [place] [address] documented as of this encounter Procedures Procedure Name Priority Date/Time Associated Diagnosis Comments PAP SMEAR Routine 12/06/2024 12:00 AM EST documented in this encounter Results * Pap Smear (12/06/2024 12:00 AM EST) Swab Cervical swab / Unknown us [facility] CYTOLOGY ORDERABLES Final Re sult EXTERNAL LAB documented in this encounter Visit Diagnoses Not on filedocumented in this encounter Care Teams Air Chief Marshal Relationship Specialty Start Date End Date Alejandra Osborne MD PCP - General Family Medicine 03/18/23 documented as of this encounter
--- OUTSIDE RECORDS SUMMARY | 2025-06-14 09:00 | XMS_ITS | Encounter Summary ---
Author Organization [facility] Address [address] [place] [address] Care Team Providers Care Computer Systems Architect Name Role Phone Alejandra Osborne MD Unavailable [phone] Alejandra Osborne MD Primary Care Provider [phone] Source Comments In the event this information is protected by the Federal Confidentiality of Alcohol and Drug AbusePatient Records regulations: The Federal rules restrict any use of the information to criminally investigate or prosecute any alcohol or drug abuse patient.[facility] Reason for Visit * Reason Comments Abstract CPP - NPAF abstract Encounter Details Date Type Department Care Team (Late st Contact Info) Description 04/21/2024 Abstract Gynecology [address] [place] [address] Augustina Vargas MD [address] [place] [address] Abstract (CPP - NPAF abstract) [...] is lower risk 4 12/18/2023 Data from: https://www.neighborhoodatlas.medicine.[facility]/. Last address used for calculation [address] [...] AM EDT Office Visit [facility] [address] [place] [address] Sveta Strong MD [address] [place], [place] [phone] lvm and elodia appt rs from 06/07/25 07/07/2025 1:00 PM EDT Office Visit Gynecology [address] [place] [address] Augustina Vargas MD [address] [place], [place] [phone] Botox injection 08/02/2025 12:20 PM EDT Office Visit Rheumatology [address] [place] [address] Gi Siddiqi MD [address] [place] [address] Follow up Osteoporosis documented as of this encounter Visit Diagnoses Not on filedocumented in this encounter Care Teams Computer Systems Architect Relationship Specialty Start Date End Date Alejandra Osborne MD [address] [place] [address] PCP - General Family Medicine 12/18/23 Alejanrda Osborne MD [address] [place] [address] Referring Family Medicine 09/08/23 documented as of this encounter
--- OUTSIDE RECORDS SUMMARY | 2025-06-14 09:00 | XMS_ITS | Clinical Summary ---
Author Organization [facility] Address [address] [place] [address] Care Team Providers Care Water Proofer Name Role Phone Alejandra Osborne MD Unavailable [phone] Alejandra Osborne MD Primary Care Provider Allergies Active Allergy Reactions Criticality Noted Date Comments Clindamycin Rash,Shortness of Breath High 06/30/2018 Codeine GI Upset Low 06/30/2018 Doxycycline Rash Medium 12/18/2023 Venom-Honey Bee Rash Medium 12/05/2019 Medications atorvastatin (LIPITOR) 20 mg tablet Take 20 mg by mouth every evening. 4 Active fluticasone (FLONASE) 50 mcg/actuation nasal spray Use 1 Ramsay in the nose as needed for cold/allergy [...] VITAMIN B COMPLEX ORAL Take by mouth. 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 Last address used for calculation [address] [...] 10:30 AM EDT Office Visit [facility] [address] [place] [address] Sveta Strong MD [address] [place], [place] [phone] lvm and elodia appt rs from 06/07/25 07/07/2025 1:00 PM EDT Office Visit Gynecology [address] [place] [address] Augustina Vargas MD [address] [place], [place] [phone] Botox injection 08/02/2025 12:20 PM EDT Office Visit Rheumatology [address] [place] [address] Gi Siddiqi MD [address] [place] [address] Follow up Osteoporosis Health Maintenance Due Date [...] 09/13/2020, 07/07/2020 Medical Devices Implanted Type Area Sales Trader Device Identifier Shelf Expiration Date Model / Serial / Lot Stent Inlay 4.7fr 2 Pigtail Curve Taper Blue Hydrophilic 14cm Ureteral - [id number] Implanted:Qty: 1 on 03/02/2024 by Chip Chowdary MD at [facility] Urologic Stents Left: Ureter FREDERICK JAMI 01/08/2028 [id number] / / [id number] Procedures Procedure Name Priority Date/Time Associated Diagnosis [...] - 80.0 ng/mL 05/05/2025 12:58 PM EDT [facility] Blood BLOOD SPECIMEN / Unknown Venipuncture / Unknown 05/04/2025 12:51 PM EDT 05/04/2025 12:51 PM EDT us Yuerong Karin VIOLIN TEACHER.MAINTENANCE REPRESENTATIVE LABORATORY Final Res ult Performing Organization Address City/[facility]/ZIP Co de Phone Number [facility] [place] [address], [place] * (ABNORMAL) VITAMIN B12 (05/04/2025 12:51 PM EDT) Vitamin B12 >2,000(H) 232 - 1,245 pg/mL 05/05/2025 12:54 AM EDT [facility] Blood BLOOD SPECIMEN / Unknown Venipuncture / Unknown 05/04/2025 12:51 PM EDT 05/04/2025 12:51 PM EDT us Yuerong Karin VIOLIN TEACHER.MAINTENANCE REPRESENTATIVE LABORATORY Final Res ult [facility] [address] [place] [address], [place] * (ABNORMAL) HOMOCYSTEINE (05/04/2025 12:51 PM EDT) Homocysteine 22.2(H) <15.1 umol/L 05/04/2025 6:18 PM EDT [facility] Blood BLOOD SPECIMEN / Unknown Venipuncture / Unknown 05/04/2025 12:51 PM EDT 05/04/2025 12:51 PM EDT us Yuerong Karin VIOLIN TEACHER.MAINTENANCE REPRESENTATIVE LABORATORY Final Res ult [facility] [address] [facility][Note 2] [address] [place] [address], [place] * DXA-AXIAL SKELETON (02/02/2025 3:32 PM [...] FOR MORE INFORMATION ABOUT DIAGNOSIS AND TREATMENT: [facility] Center for Osteoporosis and Metabolic Bone Disease:? www.ccf.org/arthritis/osteo National Osteoporosis Foundation:? www.nof.org International Society of Clinical Densitometry www.iscd.org Scanning Manager: TRINI Transcribe Date/Time: Feb 03 2025 8:08A Dictated by : ROBBIN SHARIF MD This examination was interpreted and the report reviewed and electronically signed by: ROBBIN SHARIF MD on Feb 03 2025 8:09AM EST Narrative 02/03/2025 8:11 AM EDT * * *Final Report* * * DATE OF EXAM: Feb 02 2025 3:TARA FRASER 0804 - BD DXA - AXIAL SKELETON / PROCEDURE REASON: multiple diagnoses * * * * Physician Interpretation * * * * EXAMINATION: DXA BONE DENSITOMETRY BD DXA - AXIAL SKELETON, BD DXA TRABECLR BONE SCORE (TBS) PATIENT DEMOGRAPHICS: Age: 69 years, Gender: Female SCANNER INFORMATION: DXA Model: [id number] Date Scanned: 02/02/2025 3:32 PM CLINICAL HISTORY: [...] had a previous bone density in the [facility] or the previous bone density was performed on a different DXA machine (new, updated model or different location) within the [facility]. VERTEBRAL FRACTURE ASSESSMENT Not performed. TRABECULAR BONE ASSESSMENT TBS score: 1.187 Bone micro-architecture: : degraded (< or = 1.230) Procedure Note Provider, [facility] [place] - 02/03/2025 * * *Final Report* * * DATE OF EXAM: Feb 02 2025 3:TARA FRASER 0804 - BD DXA - AXIAL SKELETON / PROCEDURE REASON: multiple diagnoses * * * * Physician Interpretation * * * * EXAMINATION: DXA BONE DENSITOMETRY BD DXA - AXIAL SKELETON, BD DXA TRABECLR BONE SCORE (TBS) PATIENT DEMOGRAPHICS: Age: 69 years, Gender: Female SCANNER INFORMATION: DXA Model: [id number] Date Scanned: 02/02/2025 3:32 PM CLINICAL HISTORY: [...] had a previous bone density in the [facility] or the previous bone density was performed on a different DXA machine (new, updated model or different location) within the [facility]. VERTEBRAL FRACTURE ASSESSMENT Not performed. [...] MORE INFORMATION ABOUT DIAGNOSIS AND TREATMENT: [facility] Center for Osteoporosis and Metabolic Bone Disease:? www.ccf.org/arthritis/osteo National Osteoporosis Foundation:? www.nof.org International Society of Clinical Densitometry www.iscd.org Scanning Manager: TRINI Transcribe Date/Time: Feb 03 2025 8:08A Dictated by : ROBBIN SHARIF MD This examination was interpreted and the report reviewed and electronically signed by: ROBBIN SHARIF MD on Feb 03 2025 8:09AM EST Gi Siddiqi MD [facility] Final Resul t * (ABNORMAL) BASIC METABOLIC PANEL (03/04/2024 1:37 AM EDT) [facility] Glucose 103(H) 74 - 99 mg/dL 03/04/2024 2:53 AM EDT [facility] Comment: The [place] Diabetes Association (ADA) provides guidance for cutoff [...] Standards of Medical Care in Diabetes 2016, [place] Diabetes Association. Diabetes Care. 2016.39(Suppl 1). BUN 10 7 - 21 mg/dL 03/04/2024 2:53 AM EDT [facility] Creatinine 0.81 0.58 - 0.96 mg/dL 03/04/2024 2:53 AM EDT [facility] Sodium 138 136 - 144 mmol/L 03/04/2024 2:53 AM EDT [facility] Potassium 3.9 3.7 - 5.1 mmol/L 03/04/2024 2:53 AM EDT [facility] Chloride 98 97 - 105 mmol/L 03/04/2024 2:53 AM EDT [facility] CO2 31(H) 22 - 30 mmol/L 03/04/2024 2:53 AM EDT [facility] Anion Gap 9 9 - 18 mmol/L 03/04/2024 2:53 AM EDT [facility] Calcium, Total 9.0 8.5 - 10.2 mg/dL 03/04/2024 2:53 AM EDT [facility] Estimated Glomerular Filtration Rate 80 >=60 mL/min/1.7 3m 03/04/2024 2:53 AM EDT [facility] Comment:Estimated Glomerular Filtration Rate (eGFR) is [...] 1:37 AM EDT 03/04/2024 1:47 AM EDT us Cruz Chapman MD LABORATORY Jennifer l Result [facility] [address] [address], from Last 3 Months or Most Recently Relevant to Health Maintenance Insurance MEDICARE [facility] Care Teams Water Proofer Relationship Specialty Start Date End Date Alejandra Osborne MD [address] [place] [phone] PCP - General Family Medicine 12/18/23 Alejandra Osborne MD [address] [place] [phone] Referring Family Medicine 09/08/23
--- OUTSIDE RECORDS SUMMARY | 2025-06-14 09:00 | XMS_ITS | Encounter Summary ---
Author Organization [facility] Address [address] [place] [address] Care Team Providers Care Beef Grader Name Role Phone Alejandra Osborne MD Unavailable [phone] Alejandra Osborne MD Primary Care Provider [phone] Source Comments In the event this information is protected by the Federal Confidentiality of Alcohol and Drug AbusePatient Records regulations: The Federal rules restrict any use of the information to criminally investigate or prosecute any alcohol or drug abuse patient.[facility] Encounter Details Date Type Department Care Team (Late st Contact Info) Description 04/12/2024 Patient Msg Gynecology [address] [address] Provider, Yuval Perlvic pain questionnaire [...] risk 4 12/18/2023 Data from: https://www.neighborhoodatlas.medicine.[facility]/. Last address used for calculation [address] [...] 10:30 AM EDT Office Visit [facility] [address] [place] [address] Sveta Strong MD [address] [place], [place] [phone] lvm and elodia appt rs from 06/07/25 07/07/2025 1:00 PM EDT Office Visit Gynecology [address] [place] [address] Augustina Vargas MD [address] [place], [place] [phone] Botox injection 08/02/2025 12:20 PM EDT Office Visit Rheumatology [address] [place] [address] Gi Siddiqi MD [address] [place] [address] Follow up Osteoporosis documented as of this encounter Visit Diagnoses Not on filedocumented in this encounter Care Teams Beef Grader Relationship Specialty Start Date End Date Alejandra Osborne MD [address] [place] [phone] PCP - General Family Medicine 12/18/23 Alejandra Osborne MD [address] [place] [address] Referring Family Medicine 09/08/23 documented as of this encounter
--- OUTSIDE RECORDS SUMMARY | 2025-06-14 09:04 | XMS_ITS | CCD ---
Author Organization [facility] Care Team Providers Care Business Quality Assurance Analyst Name Role Phone Joel Monroe Unavailable Unavailable Joel Monroe Unavailable Unavailable Joel Monroe Unavailable Unavailable AMMON LUCAS~[id number] UNKNOWN Unavailable Unavailable Joel Monroe Unavailable Unavailable Joel Monroe Unavailable Unavailable Joel Monroe Unavailable Unavailable AMMON LUCAS~[id number] UNKNOWN Unavailable Unavailable Sheeba Manuela Unavailable Ayaka [...] Unavailable Ammon Lucas MD Primary Care Provider [phone] Ammon Lucas MD Primary Care Provider [phone] AMMON LUCAS Referring Unavailable AMMON LUCAS Primary Care Unavailable AMMON LUCAS Referring Unavailable AMMON LUCAS Primary Care Unavailable SARAH GODWIN Attending Unavailable LUCAS, AMMON E Referring Unavailable LUCAS, AMMON E Primary Care Unavailable SARAH GODWIN M Attending Unavailable LUCAS, AMMON E Referring Unavailable LUCAS, AMMON E Primary Care Unavailable SARAH GODWIN M Referring Unavailable ULCAS, AMMON E Primary Care Unavailable SARAH GODWIN M Admitting Unavailable CITLALI, SARAH M Attending Unavailable LUCAS, AMMON E Primary Care Unavailable YEN MEADE Attending Unavailable LUCAS, AMMON E Primary Care Unavailable CITLALI SARAH M Attending Unavailable LUCAS, AMMON E Referring Unavailable LUCAS, AMMON E Primary Care Unavailable MATTHEW RAMIREZ Attending Unavailable LUCAS, AMMON E Referring Unavailable LUCAS, AMMON E Primary Care Unavailable Unavailable Primary Care Provider UnavailAmmon Guzman MD Primary Care Provider Ammon Lucas MD Primary Care Provider DYLON AMMON E Primary Care Unavailable PROVIDER, UNKNOWN Referring Unavailable BRIANA, DANIA K Referring Unavailable LUCAS, AMMON E Primary Care Unavailable DANIA STEVEN Referring Unavailable LUCAS, AMMON E Primary Care Unavailable AL-ASHKAR, FEYROUZ Attending Unavailable LUCAS, AMMON E Primary Care Unavailable AUGUSTINA VARGAS Attending Unavailable SELF Referring Unavailable LUCAS, AMMON E Primary Care Unavailable MICHELLE, YUERONG Referring Unavailable LUCAS, AMMON E Primary Care Unavailable ORQUIDEA SAAVEDRA Attending Unavailable AL-ASHKAR, FEYROUZ Referring Unavailable LUCAS, AMMON E Primary Care Unavailable JOHNSAUGUSTINA ALEXIS Attending Unavailable LUCAS, AMMON E Primary Care Unavailable VIET CARR Attending Unavailable LUCAS, AMMON E Primary Care Unavailable AUGUSTINA VARGAS Attending Unavailable JOHNSBURG, AUGUSTINA Referring Unavailable LUCAS, AMMON E Primary Care Unavailable JOHNSAUGUSTINA ALEXIS Attending Unavailable JOHNSBURG, AUGUSTINA Referring Unavailable LUCAS, AMMON E Primary Care Unavailable AL-ASHKAR, FEYROUZ Attending Unavailable JOHNSBURG AUGUSTINA Referring Unavailable LUCAS, AMMON E Primary Care Unavailable AL-ASHKAR, FEYROUZ Referring Unavailable LUCAS, AMMON E Primary Care Unavailable ORQUIDEA SAAVEDRA Attending Unavailable AL-ASHKAR, FEYROUZ Referring Unavailable LUCAS, AMMON E Primary Care Unavailable AL-ASHKAR, FEYROUZ Referring Unavailable LUCAS, AMMON E Primary Care Unavailable AL-ASHKAR, FEYROUZ Referring Unavailable LUCAS, AMMON E Primary Care Unavailable Lucas MD, Ammon Primary Care Provider Ammon Lucas MD Primary Care Provider [phone] Provider, Outside Attending Provider Unavailable Ammon Lucas MD Attending Provider KERI TOPETE Attending Unavailable DANIA STEVEN Attending Unavailable STRASBURG, AUGUSTINA M Referring Unavailable STRASBURG, [...] Referring Unavailable STRASBURG, AUGUSTINA M Referring Unavailable Johan Martinez MD Attending Provider Leighton Wu Attending Unavailable Leighton Wu Admitting Unavailable Allergies Allergy Classification Reported Allergen(s) Allergy Type Date of Onset Reaction(s) Facility (9 sources) amoxicillin; Translations: [amoxicillin] Drug Allergy 02-13-20 17 Unknown [facility] Repository (20 sources) Bee/Wasp/Ant venom; Translations: [Bee Stings] Propensity to adverse reactions (disorder) 12-05-19 Unknown, Rash [facility] Repository (20 sources) clindamycin; Translations: [clindamycin] Drug Allergy 09-24-20 15 Rash, Shortness of Breath, Hives [facility] Repository (20 sources) doxycycline; Translations: [doxycycline] Drug Allergy 03-03-20 23 Rash, Hives [facility] Repository (11 sources) Penicillins; Translations: [penicillins] Propensity to adverse reactions (disorder) 02-13-20 Hives, Rash, Intolerance [facility] Repository (5 sources) Penicillin; Translations: [penicillin] Drug Allergy 06-18-20 18 Unknown [facility] Repository (13 sources) Bee pollen Drug Allergy 06-17-20 Comment:Bee Stings [facility] Comment on above: Onset Date: 06/17/20 18 (11 sources) Codeine Drug Allergy 08-04-20 Comment:upset stomach [facility] Other (20 sources) Codeine; Translations: [CODEINE] Drug Allergy 06-17-20 GI Upset, GI intolerance, GI Disturbance [facility] Comment on above: Onset Date: 08/04/20 18 (11 sources) Pseudoephedrine Drug Allergy 08-04-20 Unknown [facility] Other (6 sources) patient allergy list reviewed by nurse or physicia Propensity to adverse reactions 08-10-20 Comment:Done [facility] Other (3 sources) Allergies Reconciled Propensity to adverse reactions Unknown [facility] Other (1 source) Substance with penicillin structure and antibacterial mechanism of action (substance) Drug allergy 08-04-20 18 Unknown [facility] Other (9 sources) Fluconazole Drug Allergy 06-03-20 [facility] (20 sources) Venom-Honey Bee; Translations: [VENOM-HONEY BEE] Drug Allergy 12-05-19 Rash [facility] (20 sources) Doxycycline; Translations: [DOXYCYCLINE HYCLATE] Drug Allergy 03-03-20 Rash [facility] Repository (3 sources) BEE VENOM PROTEIN (HONEY BEE); Translations: [BEE VENOM PROTEIN (HONEY BEE)] Propensity to adverse reactions to drug (disorder) 12-05-19 [facility] Repository (10 sources) Bee pollen Allergy to substance 04-12-20 [facility] (10 sources) Fluconazole Allergy to substance 04-12-20 Dizziness [facility] (10 sources) Honey bee venom Allergy to substance 12-05-19 Rash, Hives [facility] (10 sources) Pseudoephedrine Drug Allergy 04-12-20 [facility] (2 sources) 12 Hour Decongestant Allergy to substance 04-12-20 [facility] Comment on above: Onset Date: 08/04/20 [...] four hours as needed for pain Hydrocodone-Acetaminophen (Modena) 5-325 mg Tablet Discontinued 1 - 2 TAB PO Every 4 hours as needed for Pain May 12, 2018 June 03, 2025 11:02am Comment on above: Take 1 tablet by brad th every 6 hours as needed for pain. azithromycin 250 mg oral tablet (13 sources) Macrolide Antimicrobial Start: 11-22-19 23 Azithromycin 250 MG 2 tablet on the first day, then 1 tablet daily for 4 days Orally Once a day for 5 day(s) May, Active calcium carbonate 1500 mg / cholecalciferol 800 unt chewable tablet (1 source) Vitamin D Start: 06-03-20 25 take 1 tablet by mouth once daily Calcium Carbonate / vitamin D3 (20 sources) [...] oral tablet (20 sources) Muscle Relaxant Start: 06-03-20 25 take 1 tablet by mouth three times daily as needed Start: 05-27-2024 End: 08-17-2024 take 1 tablet by mouth every twenty-four hours as needed cyclobenzaprine (Flexeril) 5 MG tablet Take 5 mg by mouth Daily as needed 05/27/2024 Active take 2 tablets by mo [facility] three times daily as needed for muscle spasms cyclobenzaprine (FLEXERIL) 5 mg tablet Take 2 [...] metered dose nasal spray (20 sources) Corticosteroid Start: 06-03-2025 take 1 spray(s) nasal route once daily take 1 spray(s) nasa l route in the morning fluticasone (Flonase) 50 MCG/ACT nasal spray Administer 1 spray into affected nostril(s) in the morning. Active fluticasone (STEVAN NASE) 50 mcg/actuation nasal spray Use 1 Norco in the nose as needed for cold/allergy symptoms. Take in allergy season Active fluticasone (STEVAN NASE) 50 mcg/actuation nasal spray Use 1 Norco in the nose once daily. 0 Active FLONASE Active Flonase Active Flonase Not-Juwan garzon Comment on above: Use 1 Norco in the n ose once daily. Use 1 Norco in the n ose as needed for [...] 03/05/2023 06/03/2024 Discontinued (Med list cleanup) nystatin 068772 unt/ml oral suspension (11 sources) Polyene Antifungal Start: 06-05-20 take 4 mL by mouth four times daily Nystatin 819227 UNIT/ML 4 mL Mouth/Throat Four times a day for 14 day(s) May, Active Nystatin 540117 UNIT/ML swish and swallow 5 milliliters four [...] / oxyCODONE hydrochloride 5 mg oral tablet (2 sources) Opioid Agonist Start: 12-05-2019 End: 06-03-2025 take 1 tablet by mouth every six hours as needed for pain Oxycodone-Acetamin ophen (Percocet) 5-325 mg tablet Discontinued 1 TAB PO Q6H as needed for pain 01 03December 05, 2019 June 03, 2025 11:03am atorvastatin 10 mg oral tablet (20 sources) HMG-CoA Reductase Inhibitor Start: 04-12-2024 End: 05-20-2025 take 1 tablet by mouth once daily Atorvastatin (Lipitor) 10 mg tablet Discontinued 10 MG PO Daily December 05, 2024 3:09pm May 20, 2025 2:04pm Start: 06-12-2023 End: 06-06-2024 take 1 tablet by mouth in the morning atorvastatin (Lipitor) 20 MG tablet Take 20 mg by mouth in the morning. 06/12/2023 Active Lipitor Active Comment on above: Take 20 mg by mouth every morning. Take 20 mg by mouth every evening. onabotulinumtoxina 100 unt injection (20 sources) Acetylcholine Release Inhibitor Start : 12-08 End: 12-08 inject 1 dose by intramuscular injection every [...] 1130 docusate sodium 50 mg / sennosides, [facility] 8.6 mg oral tablet (2 sources) Start: 12-05-2019 End: 06-03-2025 take 2 tablets [...] for pain. glycerin 1300 mg rectal suppository (2 sources) Non-Standardized Chemical Allergen Start: 04-12-2024 End: 06-03-2025 Glycerin (Child) suppository Discontinued SUPP ME April 12, 2024 12:00am June 03, 2025 11:02am ibuprofen 800 mg oral tablet (20 sources) Nonsteroidal Anti-inflammatory Drug Start: 05-12-2018 End: 06-03-2025 take 1 tablet by mouth three times daily as needed for pain Ibuprofen 800 mg Tablet Discontinued 800 MG PO Three times daily as needed for Pain May 12, 2018 12:00am June 03, 2025 11:33am take 2 tablets by mo uth every six hours as needed ibuprofen 200 [...] (10 sources) Claritin Not-Holger ing Claritin Active montelukast 10 mg oral tablet [...] / nitrofurantoin, monohydrate 75 mg oral capsule (2 sources) Nitrofuran Antibacterial Start: End: take 1 capsule by mouth every twelve hours at mealtime Nitrofurantoin Monohyd/M-Cryst (Macrobid) 100 mg Capsule Discontinued 100 MG PO Q12H May 12, 2018 12:00am April 12, 2024 3:30pm administer with a meal/food; swallow whole; do not open, crush, dissolve , or chew ondansetron 4 mg disintegrating oral tablet (2 sources) Serotonin-3 Receptor Antagonist Start: End: take 1 tablet by mouth every six hours as needed for nausea Ondansetron (Zofran Odt) 4 mg Tablet,Disintegrating Discontinued 4 MG PO Q6H as needed for Nausea May 12, 2018 12:00am April 12, 2024 3:30pm tamsulosin hydrochloride 0.4 mg oral capsule (19 sources) alpha-Adrenergic Amber Start: End: take 1 capsule by mouth once daily Tamsulosin (Flomax) 0.4 mg capsule Discontinued 0.4 MG PO Daily April 12, 2024 12:00am June 03, 2025 11:33am take 1 capsule by [facility] every twenty-four hours Flomax 0.4 MG [...] Coronary arteriosclerosis; Translations: [Atherosclerotic heart disease of [place] coronary artery without angina pectoris] Onset: 02-08-2025 [...] 03-04-2023 Chronic Other aftercare (1 source) Other correction (current) 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; Translations: [OTH PRINCIPAL TECHNOLOGIST CURRENT DRUG THERAPY] Onset: 02-25-2023 Episodic Other [...] [Constipation, unspecified] 07-06-2024 Episodic Other gastrointestinal disorders (2 sources) Disorder of retroperitoneum; Translations: [Other disorders of [...] Translations: [Personal history of (healed) traumatic fracture] 02-08-2025 Episodic Other lower respiratory disease (6 sources) [...] and lump, neck] Episodic Other skin disorders (12 sources) Mass of right submandibular region; Translations: [...] maxillary sinusitis] Episodic Peripheral and visceral atherosclerosis (19 sources) Peripheral vascular disease; Translations: [Peripheral vascular disease, unspecified] Onset: 03-17-2023 03-17-2023 Chronic Phlebitis; thrombophlebitis and thromboembolism (1 source) 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; unclassified (1 source) Acquired absence of other specified parts of digestive tract; Translations: [ACQ ABSENCE OTH PART DIGESTV TRACT] Onset: 05-16-2023 Episodic Residual codes; unclassified (3 sources) Normal [...] Spondylosis; intervertebral disc disorders; other back problems (12 sources) Neck pain; Translations: [Cervicalgia] Onset: 12-01-2023 [...] edema] Onset: 10-07-2023 Resolved: 12-01-2023 12-01-2023 Episodic Substance-related disorders (20 [...] Test Name Value Interpretation Reference Range Facility Erythrocyte distribution wid th Auto (RBC) [Ratio]Ordered By: Johan Martinez on 06-07-2025 Erythrocyte distribution width (RBC) [Ratio] 15.7 % High 11.0-15.0 [facility] Globulin Calc (S) [Mass/Vol] Ordered By: Johan Martinez on 06-07-2025 Globulin (S) [Mass/Vol] 3.2 g/dL [facility] Glomerular filtration rate ( GFR) estimation in non- AmericanOrdered By: Johan Martinez on 06-07-2025 GFR/1.73 sq M.predicted among non-blacks MDRD (S/P/Bld) [Vol rate/Area] mL/min/{1.73_m2} >=60 mL/min/1.7 3m 2 [facility] Hematocrit Auto (Bld) [Volum e fraction]Ordered By: Johan Martinez on 06-07-2025 Hematocrit (Bld) [Volume fraction] 37.4 % 36.0-48.0 [facility] Hemoglobin [Mass/volume] in BloodOrdered By: Johan Martinez on 06-07-2025 Hemoglobin (Bld) [Mass/Vol] 12.3 g/dL 12.0-16.0 [facility] Laboratory - Chemistry and C hemistry - challengeOrdered By: Johan Martinez on 06-07-2025 Albumin [Mass/Vol] 2.9 g/dL Low 3.4-5.0 [facility] ALP [Catalytic activity/Vol] 55 U/L 46-116 [facility] ALT [Catalytic activity/Vol] 17 U/L 14-59 [facility] AST [Catalytic activity/Vol] 24 U/L 15-37 [facility] Bilirubin [Mass/Vol] 0.3 mg/dL 0.2-1.0 [facility] Calcium [Mass/Vol] 8.5 mg/dL 8.5-10.1 [facility] Chloride [Moles/Vol] 107 mmol/L 98-107 [facility] CO2 [Moles/Vol] 28.8 mmol/L 21.0-32.0 [facility] Creatinine [Mass/Vol] 0.61 mg/dL 0.55-1.02 [facility] GFR/1.73 sq M.predicted MDRD (S/P/Bld) [Vol rate/Area] mL/min/{1.73_m2} >=60 mL/min/1.7 2 [facility] Glucose [Mass/Vol] 84 mg/dL 74-106 [facility] Lactate [Moles/Vol] 0.8 mmol/L 0.4-2.0 [facility] Potassium [Moles/Vol] 4.3 mmol/L 3.5-5.1 [facility] Protein [Mass/Vol] 6.1 g/dL Low 6.4-8.2 [facility] Sodium [Moles/Vol] 144 mmol/L 136-145 [facility] Urea nitrogen [Mass/Vol] 16.0 mg/dL 7.0-18.0 [facility] Urea nitrogen/Creatinine [Mass ratio] 26.2 mg/mg [facility] Leukocytes [#/volume] correc dawit for nucleated erythrocytes in Blood by Automated counOrdered By: Johan Martinez on 06-07-2025 WBC corrected for nucl RBC Auto (Bld) [#/Vol] 19.7 10 3/uL High 4.0-11.0 [facility] MCH Auto (RBC) [Entitic mass ]Ordered By: Johan Martinez on 06-07-2025 MCH (RBC) [Entitic mass] 30.4 pg 26.7-34.0 [facility] MCHC Auto (RBC) [Mass/Vol]Or dered By: Johan Martinez on 06-07-2025 MCHC (RBC) [Mass/Vol] 32.9 g/dL 29.9-35.2 [facility] MCV Auto (RBC) [Entitic vol] Ordered By: Johan Martinez on 06-07-2025 MCV (RBC) [Entitic vol] 92.3 fL 81.0-99.0 [facility] No Panel InformationOrdered By: Johan Martinez on 06-07-2025 C-Reactive Protein, Quantitative <0.50 mg/dL <=0.50 [facility] Platelet mean volume Auto (B ld) [Entitic vol]Ordered By: Johan Martinez on 06-07-2025 Platelet mean volume (Bld) [Entitic vol] 11.7 fL 9.5-13.5 [facility] Platelets Auto (Bld) [#/Vol] Ordered By: Johan Martinez on 06-07-2025 Platelets (Bld) [#/Vol] 295 10 3/uL 150-450 [facility] RBC Auto (Bld) [#/Vol]Ordere d By: Johan Martinez on 06-07-2025 RBC (Bld) [#/Vol] 4.05 10 6/uL Low 4.20-5.40 [facility] Serum or plasma albumin/glob ulin mass ratioOrdered By: Johan Martinez on 06-07-2025 Albumin/Globulin [Mass ratio] 0.9 {ratio} [facility] Serum or plasma anion gap de terminationOrdered By: Johan Martinez on 06-07-2025 Anion gap [Moles/Vol] 12.5 mmol/L Fi [facility] Basophils/100 WBC Manual cnt (Bld)Ordered By: Leighton Wu on 06-06-2025 Basophils/100 WBC (Bld) 5.0 % High 0.2-2.0 [facility] Eosinophils/100 WBC Manual c nt (Bld)Ordered By: Leighton Wu on 06-06-2025 Eosinophils/100 WBC (Bld) 3.0 % 0.9-7.0 [facility] Erythrocyte distribution wid th Auto (RBC) [Ratio]Ordered By: Ammon Lucas on 06-06-2025 Erythrocyte distribution width (RBC) [Ratio] 15.6 % High 11.0-15.0 [facility] Globulin Calc (S) [Mass/Vol] Ordered By: Ammon Lucas on 06-06-2025 Globulin (S) [Mass/Vol] 3.7 g/dL [facility] Glomerular filtration rate ( GFR) estimation in non- AmericanOrdered By: Ammon Lucas on 06-06-2025 GFR/1.73 sq M.predicted among non-blacks MDRD (S/P/Bld) [Vol rate/Area] 57 mL/min/{1.73_m2} Low >=60 mL/min/1.7 3m 2 [facility] Hematocrit Auto (Bld) [Volum e fraction]Ordered By: Ammon Lucas on 06-06-2025 Hematocrit (Bld) [Volume fraction] 43.3 % 36.0-48.0 [facility] Hemoglobin [Mass/volume] in BloodOrdered By: Ammon Lucas on 06-06-2025 Hemoglobin (Bld) [Mass/Vol] 14.4 g/dL 12.0-16.0 [facility] Tristan 06-06-2025 L ---- Specimen: [id number] Received: 06/07/25 Status: MUSA Manjeet Num: [id number] Spec Type: Impression Subm Dr: Leighton Wu DO Tissues: PATHPER Procedures: PATHREVIEW Age/ Patient Sex Location Account Attending Physician Karen Zaidi 69/F [facility] [id number] Leighton Wu DO SPEC NUM: [id number] RECD: 06/07/25 STATUS: MUSA MANJEET NUM: [id number] SRAVANI: 06/06/[address]: Leighton Wu DO ENTERED: 06/07/25-[address]: Kari Reeder SPEC TYPE: Impression DEPT: [facility] ENTERED BY: [id number] RECV BY: [id number] ORDERED: JOSE ORDERED: JOSE Pathologist Review Peripheral blood smear evaluation: - Severe neutrophilic leukocytosis with left shift consistent with infection. - Red blood cell and Platelet: Unremarkable. CPT: 65380 Specimen: [id number] Received: 06/07/25 Status: MUSA Manjeet Num: [id number] Spec Type: Impression Subm Dr: Leighton Wu DO Tissues: SHARMAINE Procedures: JOSE Patient: Karen Zaidi [id number] (Continued) Signed (signature on file) Hay Aguilar MD 06/07/25 1408 Normal [facility] Laboratory - Chemistry and C hemistry - challengeOrdered By: Leighton Wu on 06-06-2025 Bilirubin Ql (U) Negative NEGATIVE [facility] Glucose (U) [Mass/Vol] Negative NEGATIVE [facility] Ketones Ql (U) Negative NEGATIVE [facility] pH (U) 6.0 [pH] 5.0-9.0 [facility] Specific gravity (U) [Rel density] <=1.005 Abnormal 1.005-1.02 5 [facility] Urobilinogen Qn (U) 0.2 {Alberta'U}/dL 0.2-1.0 [facility] Laboratory - Chemistry and C hemistry - challengeOrdered By: Ammon Lucas on 06-06-2025 Albumin [Mass/Vol] 4.0 g/dL 3.4-5.0 [facility] ALP [Catalytic activity/Vol] 82 U/L 46-116 [facility] ALT [Catalytic activity/Vol] 25 U/L 14-59 [facility] AST [Catalytic activity/Vol] 27 U/L 15-37 [facility] Bilirubin [Mass/Vol] 0.5 mg/dL 0.2-1.0 [facility] Calcium [Mass/Vol] 9.3 mg/dL 8.5-10.1 [facility] Chloride [Moles/Vol] 102 mmol/L 98-107 [facility] CO2 [Moles/Vol] 33.2 mmol/L High 21.0-32.0 [facility] Creatinine [Mass/Vol] 0.98 mg/dL 0.55-1.02 [facility] GFR/1.73 sq M.predicted MDRD (S/P/Bld) [Vol rate/Area] mL/min/{1.73_m2} >=60 mL/min/1.7 3m 2 [facility] Glucose [Mass/Vol] 109 mg/dL High 74-106 [facility] Potassium [Moles/Vol] 3.8 mmol/L 3.5-5.1 [facility] Protein [Mass/Vol] 7.7 g/dL 6.4-8.2 [facility] Sodium [Moles/Vol] 142 mmol/L 136-145 [facility] Urea nitrogen [Mass/Vol] 22.0 mg/dL High 7.0-18.0 [facility] Urea nitrogen/Creatinine [Mass ratio] 22.4 mg/mg [facility] Laboratory - Chemistry and C hemistry - challengeOrdered By: Johan Martinez on 06-06-2025 Lactate [Moles/Vol] 0.7 mmol/L 0.4-2.0 [facility] Laboratory - Hematology and Cell countsOrdered By: Leighton Wu on 06-06-2025 Band form neutrophils/100 WBC (Bld) 1.0 % 0-5 [facility] Lymphocytes/100 WBC (Bld) 16.0 % Low 20.5-60.0 [facility] Monocytes/100 WBC (Bld) 4.0 % 1.7-12.0 [facility] Laboratory - Specimen inform ationOrdered By: Leighton Wu on 06-06-2025 Appearance (U) CLEAR CLEAR [facility] Color (U) LT. YELLOW YELLOW [facility] Laboratory - UrinalysisOrder ed By: Leighton Wu on 06-06-2025 Leukocyte esterase Test strip Ql (U) Negative NEGATIVE [facility] Mucus Ql (Urine sed) NONE SEEN NONE SEEN [facility] Nitrite Ql (U) Negative NEGATIVE [facility] Protein Ql (U) Negative NEG/TRACE [facility] Leukocytes [#/volume] correc dawit for nucleated erythrocytes in Blood by Automated counOrdered By: Ammon Lucas on 06-06-2025 WBC corrected for nucl RBC Auto (Bld) [#/Vol] 28.2 10 3/uL High 4.0-11.0 [facility] MCH Auto (RBC) [Entitic mass ]Ordered By: Ammon Lucas on 06-06-2025 MCH (RBC) [Entitic mass] 30.1 pg 26.7-34.0 [facility] MCHC Auto (RBC) [Mass/Vol]Or dered By: Ammon Lucas on 06-06-2025 MCHC (RBC) [Mass/Vol] 33.3 g/dL 29.9-35.2 [facility] MCV Auto (RBC) [Entitic vol] Ordered By: Ammon Lucas on 06-06-2025 MCV (RBC) [Entitic vol] 90.4 fL 81.0-99.0 [facility] Metamyelocytes/100 WBC Manua l cnt (Bld)Ordered By: Leighton Wu on 06-06-2025 Metamyelocytes/100 WBC (Bld) 5.0 % [facility] Myelocytes/100 WBC Manual cn t (Bld)Ordered By: Leighton Wu on 06-06-2025 Myelocytes/100 WBC (Bld) 3.0 % [facility] No Panel InformationOrdered By: Leighton Wu on 06-06-2025 Urine Bacteria NONE SEEN #/HPF NONE SEEN [facility] Urine Occult Blood SMALL Abnormal NEGATIVE [facility] Urine Other Casts NONE SEEN #/LPF NONE SEEN [facility] Urine Other Crystals None Seen #/HPF None Seen [facility] Urine RBC 2-5 #/HPF Abnormal 0-2 [facility] Urine Squamous Epithelial Cells FEW #/LPF Abnormal NONE/RARE [facility] Urine WBC 0-2 #/HPF Abnormal NONE SEEN [facility] Absolute Basophils (Manual) 1.41 10 3/uL High 0.00-0.10 [facility] Add Manual Differential SEE SCANNED REPORT [facility] Band Neutrophils # (Manual) 0.3 10 3/uL 0.0-0.3 [facility] Eosinophils # (Manual) 0.84 10 3/uL High 0.00-0.70 [facility] Lymphocytes # (Manual) 4.51 10 3/uL High 1.20-3.80 [facility] Metamyelocytes # (Manual) 1.41 [facility] Monocytes # (Manual) 1.12 10 3/uL High 0.30-0.80 [facility] Myelocytes # (Manual) 0.84 [facility] Segmented Neutrophils # (Manual) 17.76 10 3/uL High 1.4-6.5 [facility] Platelet mean volume Auto (B ld) [Entitic vol]Ordered By: Ammon Lucas on 06-06-2025 Platelet mean volume (Bld) [Entitic vol] 11.3 fL 9.5-13.5 [facility] Platelets Auto (Bld) [#/Vol] Ordered By: Ammon Lucas on 06-06-2025 Platelets (Bld) [#/Vol] 385 10 3/uL 150-450 [facility] RBC Auto (Bld) [#/Vol]Ordere d By: Ammon Lucas on 06-06-2025 RBC (Bld) [#/Vol] 4.79 10 6/uL 4.20-5.40 [facility] Segmented neutrophils/100 WB C Manual cnt (Bld)Ordered By: Leighton Wu on 06-06-2025 Segmented neutrophils/100 WBC (Bld) 63.0 % 43.0-75.0 [facility] Serum or plasma albumin/glob ulin mass ratioOrdered By: Ammon Lucas on 06-06-2025 Albumin/Globulin [Mass ratio] 1.1 {ratio} [facility] Serum or plasma anion gap de terminationOrdered By: Ammon Lucas on 06-06-2025 Anion gap [Moles/Vol] 10.6 mmol/L [facility] 25(OH)D3 SerPl-mCncon 2024 25-hydroxyvitamin D3 [Mass/Vol] 47.4 ng/mL Normal 31.0-80.0 [facility] Comment on above: Order Comment: Speci men Type: BLOOD SPECIMEN [facility] Address: [address] [place] [address] Performed By: #### 1 989-3 #### [facility] CLIA [id number] [address] [place] [address] OF [facility] CNOVon 05-04-2025 CNOV Office Visit (LOORRM ) -------- KAREN ZAIDI ([id number]) 1955 F Date Time Provider Department 05/04/25 1:45 PM ORQUIDEA SAAVEDRA During your visit today, we recorded the following information about you: Orquidea Saavedra MD 05/05/2025 11:26 AM Signed see dictated note Orquidea Saavedra II, MD Referring Provider: GI SIDDIQI [[id number]] Allergies As of Date: 05/04/2025 Noted Allergy [...] (FLONASE) 50 mcg/actuation nasal spray Use 1 Norco in the nose as needed for cold/allergy [...] Resolved Pararenal abdominal aortic aneurysm (AAA) witho*12/18/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 Address: [address] [place] [address] Performed By: #### 1 3965-9 ####[facility]CLIA [id number] [address] [place] No Panel InformationOrdered By: Outside Provider on 05-04-2025 25-Hydroxy Vitamin D Total 47.4 ng/mL 31.0-80.0 [facility] Vitamin B12 Level >2000 pg/mL High 232-1245 [facility] Serum or plasma homocysteine measurement (moles/volume)Ordered By: Outside Provider on 05-04-2025 Homocysteine [Moles/Vol] 22.2 umol/L High <15.1 [facility] Vit B12 SerPl-mCncon 025 Cobalamin (Vitamin B12) [Mass/Vol] pg/mL High 232-1245 [facility] Comment on above: Order Comment: Speci men Type: BLOOD SPECIMENOrdering Facility: [facility] Address: [address] [place] [address] Performed By: #### 2 132-9 ####[facility] LABCLIA [id number] [facility] SON [id number] [place] [address] [place] [address] CHEST WO [...] detection for pulmonary nodules was performed utilizing [employer] software. Finalized by Dayday Rodriguez MD on 04/28/2025 1:55 PM Normal [facility] CNOVon 03-08-2025 [facility]OV [facility] -------- KAREN ZAIDI ([id number]) 1955 F Date Time Provider Department 03/08/25 3:30 PM AUGUSTINA VARGAS During your visit today, we recorded the following information about you: Blood pressure 120/66 Augustina Vargas MD 03/14/2025 11:17 PM Signed [facility] [id number] FOR CHRONIC PELVIC PAIN OUTPATIENT VISIT DATE 03/08/2025 OUTPATIENT VISIT TYPE FOLLOW UP CHIEF COMPLAINT follow up HISTORY OF PRESENT ILLNESS Karen is a 69 year old female who is in today for follow up. Since last visit: Pt reports that she is completing PT at [place] and is doing a multitude of exercises [...] daily at (more content not included)... Normal [facility] 02-14-2025 MARIBELN Telephone (ZAHRA) -------- KAREN ZAIDI ([id number]) 1955 F Date Time Provider Department 02/14/25 SACHI MARTINEZ During your visit today, we recorded the following information about you: Sachi Martinez APRN.[facility] 02/14/2025 10:37 AM Signed Please help [...] otherwise we have nothing available here in [place] at this time. Estefany Nino 03/03/2025 12:01 PM Signed Called and spoke with patient, scheduled sooner for Cardiology in [place] Scheduled for 06/07/2025 in [place]. Patient has been again added to the wait list and marked high priority Estefany Nino 03/09/2025 2:13 PM Signed 1st, lvm for patient to call back and schedule with Sachi Martinez APRN.CNP Estefany Nino 03/16/2025 10:15 AM Signed 2nd attempt, spoke with patients , gave phone number for patient to call us back to schedule appointment with Sachi Martinez APRN.MARIBEL AFTER her CARD appointment 3rd, mychart reminder to call sent Allergies As of [...] unspecified [I51.9] Order(s):VITAMIN B12 [SQB12] Order #: [id number] FUTURE HOMOCYSTEINE [SQHOMCYS] Order #: [id number] FUTURE Prescriptions as of 03/24/2025 - cholecalciferol, [...] (FLONASE) 50 mcg/actuation nasal spray Use 1 Norco in the nose as needed for cold/allergy [...] Resolved Pararenal abdominal aortic aneurysm (AAA) witho*12/18/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 Other hyperlipidemia [E78.49] 02/19/2024 Ovarian varices [I86.2] 02/19/2024 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/2024 Narcotic drug use [F11.90] 02/19/2024 Sinus bradycardia on ECG [R00.1] 02/20/2024 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 Letter scan into [employer]. Recommendation: routed to nurse triage pool Last visit in this department: Visit date not found Last distance health visit in this department: Visit date not found Next visit in this department: Visit date not found Appointments for Next 60 Days Date Time Provider Location Dept Phone 03/08/2025 3:30 PM AUGUSTINA VARGAS [place] - A Bld [phone] Cielo Gomez RN 02/11/2025 1:17 PM Signed Attempted to [...] Recommendation: routed to nurse triage pool Call [phone] Thanks Erendira Hodge RN 02/23/2025 2:06 PM Signed Patient identified by name and . States she uses flexeril and it is very helpful. States she typically pays out of pocket for it but decided to see if she can get it covered with PA. PA filled out on [facility]. Méndez: [id number] Will monitor status. DIANE Hernandez Kate, RN 02/23/2025 3:00 PM Signed PA approved, MC message sent to Pt. 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 Osteoporos Int. 2010 February;21(5):831-6. doi: 10.1007/[id number]- y. Epub 2008May 05. PMID: [id number]. Her alk phos levels have not been [...] if necessary, CC, NOF and ISCD and [facility]. She has osteoarthrosis involving hands and knees. Her right knee appears to have advanced wpla-he-euxb osteoarthrosis and is some (more content not included)... Normal [facility] 25(OH)D3 [facility] 25-hydroxyvitamin D3 [Mass/Vol] 33.3 ng/mL Normal 31.0-80.0 [facility] Comment on above: Order Comment: Speci men Type: BLOOD SPECIMENOrdering Facility: [facility] Address: [address] [place] [address] Result Comment: Clas sification of 25 [place] Vitamin D status: Deficiency/Insufficiency: < or = 30 ng/ml. Sufficiency/Optimal Levels: 31-80 ng/mL Toxicity: > 100 ng/mL. Test performed by chemiluminescent immunoassay. Performed By: #### 1 989-3 ####[facility] LABCLIA [id number] [address] OF [facility] ALK PHOS BONE SPECon 025 ALK PHOSPHATASE, BONE 13.5 ug/L Normal [facility] Comment on above: Order Comment: Speci rosario Type: BLOOD SPECIMENOrdering Facility: [facility] Address: [address] [place] [address] Result Comment: INTE RPRETIVE INFORMATION: Bone Specific [...] bone specific alkaline phosphatase result. Performed By: [facility] [address] [place] [address] Transportation Engineering Technician: Danie Andrews MD, PhD CLIA Number: [id number] Performed By: #### A PBONE ####[facility] PicturelifeIA [id number] [place] [address] ALP SerPl-cCncon 02-07-2025 ALP [Catalytic activity/Vol] 83 U/L Normal 34-123 [facility] Comment on above: Order Comment: Speci men Type: BLOOD SPECIMENOrdering Facility: [facility] Address: [address] [place] [address] Performed By: #### 3 016-3, 6768-6, 21282-4, 43419-4 ####[facility] LABCLIA [id number] [place] [address] [place] CALCIUM, 24 HR URINEon 02-07 Calcium (24H U) [Mass/Time] 216.6 mg/24 hr Normal 100.0-300. 0 [facility] Comment on above: Order Comment: Speci men Type: URINE SPECIMENOrdering Facility: [facility] Address: [address] [place] [address] Performed By: #### U CRD, UCALCD ####[facility] LABCLIA [id number] [place] [address] [place] AMERICAAULT[place] [facility] LABORATORYCLIA [id number] [place] [address] [place] PERIOD (HRS) 24 hr Normal [facility] Comment on above: Order Comment: Speci men Type: URINE SPECIMENOrdering Facility: [facility] Address: [address] [place] [address] Performed By: #### U CRD, UCALCD ####[facility] LABCLIA [id number] [place] [id number] [place] LABORATORYCLIA [id number] [place] [address] [place] Specimen volume (24H U) 3.8 L Normal [facility] Comment on above: Order Comment: Speci men Type: URINE SPECIMENOrdering Facility: [facility] Address: [address] [place] [address] Performed By: #### U CRD, UCALCD ####[facility] LABCLIA [id number] [place] [id number] [place] LABORATORYCLIA [id number] [facility] [place] [address] [place] CELIAC SCREENon 02-07-2025 GLIAD DEAMIDATED IGA QUAL Negative Normal Negative, Test not Indicated [facility] Comment on above: Order Comment: Speceliza ponce Type: BLOOD SPECIMENOrdering Facility: [facility] Address: [address] [place] [address] Result Comment: This is used as an aid in diagnosis of celiac disease. Clinical correlation is required. The following results were obtained with an [employer] QUANTA Lite Gliadin IgA SIMONA Gliadin. Gliadin IgA values obtained with different manufacturers' assay methods may not be used interchangeably. The magnitude of the reported IgA levels cannot be correlated to an endpoint titer. Performed By: #### L [id number] ####[facility] LABCLIA [id number] [address] [place] Gliadin peptide IgA Qn (S) 5 Units Normal <20 [facility] Comment on above: Order Comment: Huseyin ponce Type: BLOOD SPECIMENOrdering Facility: [facility] Address: [address] [place] [address] Performed By: #### L [id number] ####[facility] LABCLIA [id number] [place] [id number] [place] INTERPRETATION No serological evide nce of celiac disease, however, if celiac disease is clinically suspected and patient is not on gluten-free diet, histological diagnosis may be considered. HLA testing may help with risk assessment. Normal [facility] Comment on above: Order Comment: Huseyin ponce Type: BLOOD SPECIMENOrdering Facility: [facility] Address: [address] [place] [address] Performed By: #### L [id number] ####[facility] LABCLIA [id number] [place] [id number] [facility] [place] TRANSGLUTAMINASE IGA ABS INTERPRETATION Negative Normal Negative [facility] Comment on above: Order Comment: Speci men Type: BLOOD SPECIMENOrdering Facility: [facility] Address: [address] [place] [address] Result Comment: The following results were obtained with [employer] R h-tTG IgA SIMONA.???R h-tTG IgA values obtained with different manufacturers' assay methods may not be used interchangeably. The magnitude of the reported IgA levels cannot be corelated to an endpoint???concentration. This is used as an aid in diagnosis of celiac disease. Clinical correlation is required. Performed By: #### L [id number] ####[facility] LABIA [id number] [address] [place] tTG IgA Qn (S) <2 Normal <4 [facility] Comment on above: Order Comment: Speci men Type: BLOOD SPECIMENOrdering Facility: [facility] Address: [address] [place] [address] Performed By: #### L [id number] ####[facility] LABIA [id number] [place] [id number] [place] CREATININE, 24 HOUR URINEon 02-07-2025 Creatinine (24H U) [Mass/Time] 0.760 g/24 hr Low 0.800-1.80 0 [facility] Comment on above: Order Comment: Speci men Type: URINE SPECIMENOrdering Facility: [facility] Address: [address] [place] [address] Performed By: #### U CRD, UCALCD ####[facility] LABIA [id number] [place] [address] [place] LABORATORYCLIA [id number] [place] [address] [place] Collagen crosslinked C-telop eptide [Mass/Vol]on 02-07-2025 C TELOPEPTIDE, BETA CROSS LINKED 502 pg/mL Normal 171-970 [facility] Comment on above: Order Comment: Speci men Type: BLOOD SPECIMENOrdering Facility: [facility] Address: [address] [place] [address] Performed By: #### 4 1171-0 ####[facility] LABIA [id number] [place] [address] [place] Hcys SerPl-sCncon 02-07-2025 Homocysteine [Moles/Vol] 18.9 umol/L High <15.1 [facility] Comment on above: Order Comment: Speci men Type: BLOOD SPECIMENOrdering Facility: [facility] Address: [address] [place] [address] Performed By: #### 1 3965-9 ####[facility] LABIA [id number] [address] IMMUNOFIXATION SCREEN, SERUM on 02-07-2025 MPA RESULT No M protein is identified. Normal No M protein is identified . [facility] Comment on above: Order Comment: Speci men Type: BLOOD SPECIMENOrdering Facility: [facility] Address: [address] [place] [address] Performed By: #### I FES ####[facility]OSPITALIA [id number] [address] [place] STAFF REVIEW (MPA) Reviewed by Juliet Vasquez MD Normal [facility] Comment on above: Order Comment: Speci men Type: BLOOD SPECIMENOrdering Facility: [facility] Address: [address] [place] [address] Performed By: #### I FES ####[facility] LABIA [id number] [place] [id number] [place] IMMUNOGLOBULINS,IGG,IGA,IGMo n 02-07-2025 IgG [Mass/Vol] 960 mg/dL Normal 700-1600 [facility] Comment on above: Order Comment: Speci men Type: BLOOD SPECIMENOrdering Facility: [facility] Address: [address] [place] [address] Performed By: #### S ROLF 2458-8 ####[facility] LABCLIA [id number] [place] [address] [place] IgM [Mass/Vol] 260 mg/dL High 40-230 [facility] Comment on above: Order Comment: Speci men Type: BLOOD SPECIMENOrdering Facility: [facility] Address: [address] [place] [address] Performed By: #### S ROLF 2458-8 ####[facility] LABIA [id number] [place] [address] [place] IgA SerPl-mCncon 02-07-2025 IgA [Mass/Vol] 247 mg/dL Normal 70-400 [facility] Comment on above: Order Comment: Speci men Type: BLOOD SPECIMENOrdering Facility: [facility] Address: [address] [place] [address] Performed By: #### S ROLF 245-8 ####[facility] HOSPITALIA [id number] [place] [address] [place] KAPPA/CHAMPAGNE,FREE,SERon 2024 Immunoglobulin light chains.kappa.free (S) [Mass/Vol] 16.8 mg/L Normal 3.3-19.4 [facility] Comment on above: Order Comment: Speci men Type: BLOOD SPECIMENOrdering Facility: [facility] Address: [address] [place] [address] Result Comment: Rare ly, increased serum free light chains levels may not be detected or accurately quantified due to prozone phenomenon or in high viscosity samples using this immunoturbidimetric assay. Correlation with other laboratory results and clinical findings is recommended. The [place] Free Light Chain was performed using the Binding Site Optilite immunoturbidimetric method. Result obtained with different assay methods or kits cannot be used interchangeably. Performed By: #### K LFRS ####[facility] LABIA [id number] [place] [address] [place] Immunoglobulin light chains.kappa/Immunogl obulin light chains.lambda (S) [Mass ratio] 1.58 Normal 0.26-1.65 [facility] Comment on above: Order Comment: Speci men Type: BLOOD SPECIMENOrdering Facility: [facility] Address: [address] [place] [address] Performed By: #### K LFRS ####[facility] LABCLIA [id number] [place] [address] [place] Immunoglobulin light chains.lambda.free [Mass/Vol] 10.6 mg/L Normal 5.7-26.3 [facility] Comment on above: Order Comment: Speci men Type: BLOOD SPECIMENOrdering Facility: [facility] Address: [address] [place] [address] Result Comment: Rare ly, increased serum free [...] used interchangeably. Performed By: #### K LFRS ####[facility] LABCLIA [id number] [place] [address] [place] MONOCLONAL PROT UR W/INTERPo n 02-07-2025 STAFF REVIEW (PA) Reviewed by Juliet Vasquez MD Normal [facility] Comment on above: Order Comment: Speci men Type: URINE SPECIMEN [facility] Address: [address] [place] [address] Performed By: #### U RMPA #### [facility] CLIA [id number] [address] [place] [address] [place] UMPA RESULT No M protein is identified. Normal No M protein is identified . [facility] Comment on above: Order Comment: Speci men Type: URINE SPECIMEN [facility] Address: [address] [place] [address] Performed By: #### U RMPA #### [facility] CLIA [id number] [address] [place] [address] [place] Magnesium SerPl-mCncon 02-07 Magnesium [Mass/Vol] 2.4 mg/dL High 1.7-2.3 [facility] Comment on above: Order Comment: Speci men Type: BLOOD SPECIMENOrdering Facility: [facility] Address: [address] [place] [address] Performed By: #### 3 016-3, 6768-6, 71308-5, 82064-3 ####[facility] LABCLIA [id number] [place] [address] [place] Osteocalcin SerPl-mCncon Osteocalcin [Mass/Vol] 17.8 ng/mL Normal 8.6-37.6 [facility] Comment on above: Order Comment: Speci men Type: BLOOD SPECIMENOrdering Facility: [facility] Address: [address] [place] [address] Performed By: #### 2 697-1 ####[facility] LABCLIA [id number] [place] [address] [place] PROCOLLAGEN TYPE 1on 025 PROCOLLAGEN TYPE 1 40 ug/L Normal [facility] Comment on above: Order Comment: Speci men Type: BLOOD SPECIMENOrdering Facility: [facility] Address: [address] [place] [address] Result Comment: Yo enopausal: 20 - 101 ug/L Postmenopausal: 16 - 96 ug/L Performed By: [facility] [address] [place] [address] Transportation Engineering Technician: Danie Andrews MD, PhD CLIA Number: [id number] Performed By: #### P ROCOL ####[facility]ORATORIESIA [id number] [place] [address] PTH-Intact SerPl-mCncon - Parathyrin.intact [Mass/Vol] 31 pg/mL Normal 15-65 [facility] Comment on above: Order Comment: Speci men Type: BLOOD SPECIMENOrdering Facility: [facility] Address: [address] [place] [address] Performed By: #### 2 731-8 ####[facility] LABCLIA [id number] [address] [address] [place] Renal function 2000 panelon 02-07-2025 Albumin [Mass/Vol] 4.3 g/dL Normal 3.9-4.9 [facility] Comment on above: Order Comment: Speci men Type: BLOOD SPECIMENOrdering Facility: [facility] Address: [address] [place] [address] Performed By: #### 3 016-3, 6768-6, 33634-4, ####[facility] LABIA [id number] [place] [address] [place] Anion gap [Moles/Vol] 11 mmol/L Normal 8-15 [facility] Comment on above: Order Comment: Speci men Type: BLOOD SPECIMENOrdering Facility: [facility] Address: [address] [place] [address] Performed By: #### 3 016-3, 6768-6, 28062-5, ####[facility] LABIA [id number] [place] [id number] [place] Calcium [Mass/Vol] 9.6 mg/dL Normal 8.5-10.2 [facility] Comment on above: Order Comment: Speci men Type: BLOOD SPECIMENOrdering Facility: [facility] Address: [address] [place], [place] [address] Performed By: #### 3 016-3, 6768-6, 36305-4, ####[facility] LABCLIA [id number] [address] [address] [place] Chloride [Moles/Vol] 101 mmol/L Normal 98-107 [facility] Comment on above: Order Comment: Speci men Type: BLOOD SPECIMENOrdering Facility: [facility] Address: [address] [place] [address] Performed By: #### 3 016-3, 6768-6, 44656-4, ####[facility] LABCLIA [id number] [place] [id number] [place] CO2 [Moles/Vol] 29 mmol/L Normal 22-30 [facility] Comment on above: Order Comment: Speci men Type: BLOOD SPECIMENOrdering Facility: [facility] Address: [address] [place] [address] Performed By: #### 3 016-3, 6768-6, 96867-1, ####[facility] LABIA [id number] [place] [id number] [place] Creatinine [Mass/Vol] 0.78 mg/dL Normal 0.58-0.96 [facility] Comment on above: Order Comment: Speci men Type: BLOOD SPECIMENOrdering Facility: [facility] Address: [address] [place] [address] Performed By: #### 3 016-3, 6768-6, 43023-2, ####[facility] LABIA [id number] [place] [id number] [place] Creatinine and Glomerular filtration rate.predicted panel (S/P/Bld) 83 mL/min/1.73m??? Normal >=60 [facility] Comment on above: Order Comment: Speci men Type: BLOOD SPECIMENOrdering Facility: [facility] Address: [address] [place] [address] Result Comment: Lani mated Glomerular Filtration Rate [...] GFR. Performed By: #### 3 016-3, 6768-6, 35562-2, ####[facility] LABCLIA [id number] [address] [address] [place] Glucose [Mass/Vol] 88 mg/dL Normal 74-99 [facility] Comment on above: Order Comment: Huseyin ponce Type: BLOOD SPECIMENOrdering Facility: [facility] Address: [address] [place] [address] Result Comment: The [place] Diabetes Association (ADA) provides guidance for cutoff [...] Standards of Medical Care in Diabetes 2016, [place] [employer] Association. Diabetes Care. 2016.39(Suppl 1). Performed By: #### 3 016-3, 6768-6, 65531-1, ####[facility] LABCLIA [id number] [address] [address] [place] Phosphate [Mass/Vol] 4.0 mg/dL Normal 2.7-4.8 [facility] Comment on above: Order Comment: Huseyin ponce Type: BLOOD SPECIMENOrdering Facility: [facility] Address: [address] [place] [address] Performed By: #### 3 016-3, 6768-6, 09234-7, ####[facility] LABCLIA [id number] [address] [address] [place] Potassium [Moles/Vol] 4.0 mmol/L Normal 3.7-5.1 [facility] Comment on above: Order Comment: Speci men Type: BLOOD SPECIMENOrdering Facility: [facility] Address: [address] [place], [place] [address] Performed By: #### 3 016-3, 6768-6, 20687-3, ####[facility] LABCLIA [id number] [address] [address] [place] Sodium [Moles/Vol] 141 mmol/L Normal 136-144 [facility] Comment on above: Order Comment: Speci men Type: BLOOD SPECIMENOrdering Facility: [facility] Address: [address] [place] [address] Performed By: #### 3 016-3, 6768-6, 12197-5, ####[facility] LABCLIA [id number] [place] [id number] [place] Urea nitrogen [Mass/Vol] 17 mg/dL Normal 7-21 [facility] Comment on above: Order Comment: Speci men Type: BLOOD SPECIMENOrdering Facility: [facility] Address: [address] [place], [place] [address] Performed By: #### 3 016-3, 6768-6, 30494-5, ####[facility] LABCLIA [id number] [place] [id number] [place] TSH SerPl-aCncon 02-07-2025 TSH Qn 5.930 m[IU]/L High 0.270-4.20 0 [facility] Comment on above: Order Comment: Speci men Type: BLOOD SPECIMENOrdering Facility: [facility] Address: [address] [place] [address] Performed By: #### 3 016-3, 6768-6, 12362-3, ####[facility] LABCLIA [id number] [address] [address] [place] BD DXA - [...] years, Gender: Female SCANNER INFORMATION: DXA Model: [id number] Date Scanned: 02/02/2025 3:32 PM CLINICAL HISTORY: [...] had a previous bone density in the [facility] or the previous bone density was performed on a different DXA machine (new, updated model or different location) within the [facility]. VERTEBRAL FRACTURE ASSESSMENT Not performed. TRABECULAR BONE [...] FOR MORE INFORMATION ABOUT DIAGNOSIS AND TREATMENT: [facility] Center for Osteoporosis and Metabolic Bone Disease:? www.ccf.org/arthritis/os luma National Osteoporosis Foundation:? www.nof.org International Society of Clinical Densitometry www.iscd.org Senior Regulatory Affairs Specialist: TRINI Transcribe Date/Time: Feb 03 2025 8:08A Dictated by : ROBBIN SHARIF MD This examination was interpreted and the report reviewed and electronically signed by: ROBBIN SHARIF MD on Feb 03 2025 8:09AM EST [id number] -3.2 [facility] BD DXA TRABECLR BONE [...] years, Gender: Female SCANNER INFORMATION: DXA Model: Apprema [id number] Date Scanned: 02/02/2025 3:32 PM CLINICAL HISTORY: [...] had a previous bone density in the [facility] or the previous bone density was performed on a different DXA machine (new, updated model or different location) within the [facility]. VERTEBRAL FRACTURE ASSESSMENT Not performed. TRABECULAR BONE [...] FOR MORE INFORMATION ABOUT DIAGNOSIS AND TREATMENT: [facility] Center for Osteoporosis and Metabolic Bone Disease:? www.ccf.org/arthritis/os luma National Osteoporosis Foundation:? www.nof.org International Society of Clinical Densitometry www.iscd.org Senior Regulatory Affairs Specialist: TRINI Transcribe Date/Time: Feb 03 2025 8:08A Dictated by : ROBBIN SHARIF MD This examination was interpreted and the report reviewed and electronically signed by: ROBBIN SHARIF MD on Feb 03 2025 8:09AM EST [id number] -3.2 [facility]LOORRM ) -------- KAREN ZAIDI ([id number]) 1955 F Date Time Provider Department 02/02/25 [...] these instructions. Informed Consent Consent Obtained: Verbal Everson Protocol A moment to CARE was completed. SIGN IN Personnel directly involved with the procedure wore the appropriate PPE. Special Equipment: N/A Patient/Surrogate Stated/Verified: Patient name, Date of , Relevant allergies and Intended procedure TIME OUT Relevant labs, photos, and/or imaging studies have been reviewed. Consent documented and matches the intended procedure. Correct side/site marked and visible. Medications required for procedure verified. Third democrat verified by Aline Pederson MA. Fitted patient with medium Medial OA Reaction brace for the right knee. Instructions were given on application/adjustments. Will f/u as scheduled/prn. RAJINDER Crow Referring Provider: GI SIDDIQI [[id number]] Allergies As of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 (Bld) [Volume fraction] 38.5 % Normal 35-47 [facility] Comment on above: Performed By: #### C ZAIDA, PROMOTIONS PRODUCER #### [facility] ([id number]) [address], [address] [place] [address] Hemoglobin (Bld) [Mass/Vol] 12.9 g/dL Normal 11.7-15.5 [facility] Comment on above: Performed By: #### Kenneth CERDA, PROMOTIONS PRODUCER #### [facility] ([id number]) [address], [address] [place] [address] MCH (RBC) [Entitic mass] 29.2 pg Normal 27-34 [facility] Comment on above: Performed By: #### C ZAIDA, PROMOTIONS PRODUCER #### [facility] ([id number]) [address], [address] [place] [address] MCHC (RBC) [Mass/Vol] 33.6 g/dL Normal 32-36 [facility] Comment on above: Performed By: #### C ZAIDA, PROMOTIONS PRODUCER #### [facility] ([id number]) [address], [address] [place] [address] MCV (RBC) [Entitic vol] 87 fL Normal 80-100 [facility] Comment on above: Performed By: #### Kenneth CERDA, PROMOTIONS PRODUCER #### [facility] ([id number]) [address], [address] [place] [address] Platelet mean volume (Bld) [Entitic vol] 10.5 fL Normal 7-12 [facility] Comment on above: Performed By: #### C ZAIDA, PROMOTIONS PRODUCER #### [facility] ([id number]) [address] [address] Platelets (Bld) [#/Vol] 205 10*3/uL Normal 150-450 [facility] Comment on above: Performed By: #### C ZAIDA, PROMOTIONS PRODUCER #### [facility] ([id number]) [address] [address] RBC COUNT 4.43 X10E12/L Normal 3.80-5.20 [facility] Comment on above: Performed By: #### Kenneth CERDA, PROMOTIONS PRODUCER #### [facility] ([id number]) [address] [address] WBC (Bld) [#/Vol] 4.8 10*3/uL Normal 4.0-11.0 [facility] Comment on above: Performed By: #### C AZIDA, PROMOTIONS PRODUCER #### [facility] ([id number]) [address] [address] CREATININEon 11-12-2023 Creatinine [Mass/Vol] 0.90 mg/dL Normal 0.40-1.00 [facility] Comment on above: Result Comment: METH OD TRACEABLE TO IDMS STANDARD Performed By: #### Kenneth CERDA, PROMOTIONS PRODUCER #### [facility] ([id number]) [address] [address] GFR/1.73 sq M.predicted among non-blacks MDRD (S/P/Bld) [Vol rate/Area] 71 mL/min/{1.73_m2} Normal >59 [facility] Comment on above: Result Comment: Reported eGFR is based on the CKD-EPI 2020 equation that does not use a race coefficient. Performed By: #### C ZAIDA, PROMOTIONS PRODUCER #### [facility] ([id number]) [address] [facility], [address] [place] [address] Creatinine includes GFR, ser umon 11-12-2023 Creatinine [Mass/Vol] 0.90 mg/dL 0.40 - 1.00 mg/dL [facility] Comment on above: METHOD TRACEABLE TO IDMS STANDARD eGFR (CKD-EPI)non-race dependent 71 - PINF [facility] Comment on above: Reported eGFR is based on the CKD-EPI 2020 equation that does not use a race coefficient. [facility] CBC AUTO DIFFon 02-18-2023 BASO # 0.1 103/ul Normal 0.0-0.1 [facility] Comment on above: Performed By: #### C BC #### [facility] [address] [place] [address] Dr. Camilo Reese Basophils/100 WBC (Bld) 1.4 % Normal 0.2-2.0 [facility] Comment on above: Performed By: #### C BC #### [facility] [address] [place] [address] Dr. Camilo Reese EO # 0.1 103/ul Normal 0.0-0.7 [facility] Comment on above: Performed By: #### C BC #### [facility] [address] [place] [address] Dr. Camilo Reese Eosinophils/100 WBC (Bld) 2.4 % Normal 0.9-7.0 [facility] Comment on above: Performed By: #### C BC #### [facility] [address] [place] [address] Dr. Camilo Reese Erythrocyte distribution width (RBC) [Ratio] 13.9 % Normal 11.0-15.0 [facility] Comment on above: Performed By: #### C BC #### [facility] [address] [place] [address] Dr. Camilo Reese Hematocrit (Bld) [Volume fraction] 41.3 % Normal 36.0-48.0 [facility] Comment on above: Performed By: #### C BC #### [facility] [address] [place] [address] Dr. Camilo Reese Hemoglobin (Bld) [Mass/Vol] 13.5 g/dL Normal 12.0-16.0 [facility] Comment on above: Performed By: #### C BC #### [facility] [address] [place] [address] Dr. Camilo Reese IG # 0.00 10e3/ul Normal 0.00-0.03 [facility] Comment on above: Performed By: #### C BC #### [facility] [address] [place] [address] Dr. Camilo Reese IG % 0.0 % Normal 0.0-0.5 [facility] Comment on above: Performed By: #### C BC #### [facility] [address] [place] [address] Dr. Camilo Reese LYMPH # 1.3 103/ul Normal 1.2-3.8 [facility] Comment on above: Performed By: #### C BC #### [facility] [address] [place] [address] Dr. Camilo Reese Lymphocytes/100 WBC (Bld) 31.0 % Normal 20.5-60.0 [facility] Comment on above: Performed By: #### C BC #### [facility] [address] [place] [address] Dr. Camilo Reese MANUAL DIFF REQ NO Normal [facility] Comment on above: Performed By: #### C BC #### [facility] [address] [place] [address] Dr. Camilo Reese MCH (RBC) [Entitic mass] 29.2 pg Normal 26.7-34.0 [facility] Comment on above: Performed By: #### C BC #### [facility] [address] [place] [address] Dr. Camilo Reese MCHC (RBC) [Mass/Vol] 32.7 g/dL Normal 29.9-35.2 [facility] Comment on above: Performed By: #### C BC #### [facility] [address] [place] [address] Dr. Camilo Reese MCV (RBC) [Entitic vol] 89.4 fL Normal 81.0-99.0 [facility] Comment on above: Performed By: #### C BC #### [facility] [address] [place] [address] Dr. Camilo Reese MONO # 0.6 103/ul Normal 0.3-0.8 [facility] Comment on above: Performed By: #### C BC #### [facility] [address] [place] [address] Dr. Camilo Reese Monocytes/100 WBC (Bld) 13.8 % Critically high 1.7-12.0 [facility] Comment on above: Performed By: #### C BC #### [facility] [address] [place] [address] Dr. Camilo Reese NEUT # 2.2 103/ul Normal 1.4-6.5 [facility] Comment on above: Performed By: #### C BC #### [facility] [address] [place] [address] Dr. Camilo Reese Neutrophils/100 WBC (Bld) 51.4 % Normal 43.0-75.0 [facility] Comment on above: Performed By: #### C BC #### [facility] [address] [place] [address] Dr. Camilo Reese Platelet mean volume (Bld) [Entitic vol] 11.5 fL Normal 9.5-13.5 [facility] Comment on above: Performed By: #### C BC #### [facility] [address] [place] [address] Dr. Camilo Reese PLT 254 103/ul Normal 150-450 [facility] Comment on above: Performed By: #### C BC #### [facility] [address] [place] [address] Dr. Camilo Reese RBC 4.62 106/ul Normal 4.20-5.40 [facility] Comment on above: Performed By: #### C BC #### [facility] [address] [place] [address] Dr. Camilo Reese WBC 4.2 103/ul Normal 4.0-11.0 [facility] Comment on above: Performed By: #### C BC #### [facility] [address] [place] [address] [address] ABD/PELVIS WO CONon [...] pelvis are favored to represent pelvic phleboliths. Gastrointestinal/Periton eum: No acute abnormality. The appendix is not [...] ELIE NEVES Date: 2023-02-18 11:36 Normal [facility] ER URINE PROFILEon 3 Bilirubin Ql (U) SMALL Abnormal NEGATIVE [facility] Comment on above: Performed By: #### U MICRO, ERUR #### [facility] [address] [place] [address] [address] Camilo Reese Clarity (U) CLEAR Normal CLEAR [facility] Comment on above: Performed By: #### U MICRO, ERUR #### [facility] [address] [place] [address] [address] Camilo Reese Color (U) DK. YELLOW Normal YELLOW [facility] Comment on above: Performed By: #### U MICRO, ERUR #### [facility] [address] [place] [address] [address] Camilo Reese ERUAHD A micrscopic examina tion will be performed if indicated. Normal [facility] Comment on above: Performed By: #### U MICRO, ERUR #### [facility] [address] [place] [address] [address] Camilo Reese Glucose Ql (U) Negative Normal NEGATIVE [facility] Comment on above: Performed By: #### U MICRO, ERUR #### [facility] [address] [place] [address] Dr. Camilo Reese Hemoglobin Ql (U) TRACE-INTACT Abnormal NEGATIVE [facility] Comment on above: Performed By: #### U MICRO, ERUR #### [facility] [address] [place] [address] Dr. Camilo Reese Ketones Ql (U) TRACE Abnormal NEGATIVE [facility] Comment on above: Performed By: #### U MICRO, ERUR #### [facility] [address] [place] [address] Dr. Camilo Reese LEUKOCYTES Negative Normal NEGATIVE [facility] Comment on above: Performed By: #### U MICRO, ERUR #### [facility] [address] [place] [address] Dr. Camilo Reese Nitrite Ql (U) Negative Normal NEGATIVE [facility] Comment on above: Performed By: #### U MICRO, ERUR #### [facility] [address] [place] [address] Dr. Camilo Reese pH (U) 5.0 [pH] Normal 5-9 [facility] Comment on above: Performed By: #### U MICRO, ERUR #### [facility] [address] [place] [address] [address] Camilo Reese SPEC GRAVITY >=1.030 Abnormal 1.005-<=1. 025 [facility] Comment on above: Performed By: #### U MICRO, ERUR #### [facility] [address] [place] [address] Dr. Camilo Reese UA PROTEIN Negative Normal NEGATIVE/ TRACE [facility] Comment on above: Performed By: #### U MICRO, ERUR #### [facility] [address] [place] [address] Dr. Camilo Reese UR MICRO IND INDICATED Normal [facility] Comment on above: Performed By: #### U MICRO, ERUR #### [facility] [address] [place] [address] Dr. Camilo Reese Urobilinogen Qn (U) 0.2 {Alberta'U}/dL Normal 0.2 - 1. 0 [facility] Comment on above: Performed By: #### U MICRO, ERUR #### [facility] [address] [place] [address] Dr. Camilo Reese PROF 14(COMP METB)on 023 Albumin [Mass/Vol] 4.0 g/dL Normal 3.4-5.0 [facility] Comment on above: Performed By: #### C MP #### [facility] [address] [place] [address] Dr. Camilo Reese Albumin/Globulin [Mass ratio] 1.2 {ratio} Normal [facility] Comment on above: Performed By: #### C MP #### [facility] [address] [place] [address] Dr. Camilo Reese ALP [Catalytic activity/Vol] 69 U/L Normal 46-116 [facility] Comment on above: Performed By: #### C MP #### [facility] [address] [place] [address] Dr. Camilo Reese ALT [Catalytic activity/Vol] 18 U/L Normal 14-59 [facility] Comment on above: Performed By: #### C MP #### [facility] [address] [place] [address] Dr. Camilo Reese Anion gap [Moles/Vol] 11.7 mmol/L Normal [facility] Comment on above: Performed By: #### C MP #### [facility] [address] [place] [address] Dr. Camilo Reese AST [Catalytic activity/Vol] 21 U/L Normal 15-37 [facility] Comment on above: Performed By: #### C MP #### [facility] [address] [place] [address] Dr. Camilo Reese Bilirubin [Mass/Vol] 1.0 mg/dL Normal 0.2-1.0 [facility] Comment on above: Performed By: #### C MP #### [facility] [address] [address] [address] Camilo Reese Calcium [Mass/Vol] 9.1 mg/dL Normal 8.5-10.1 [facility] Comment on above: Performed By: #### C MP #### [facility] [address] [place] [address] [address] Camilo Reese Chloride [Moles/Vol] 103 mmol/L Normal 98-107 [facility] Comment on above: Performed By: #### C MP #### [facility] [address] [place] [address] [address] Camilo Reese CO2 [Moles/Vol] 28.7 mmol/L Normal 21.0-32.0 [facility] Comment on above: Performed By: #### C MP #### [facility] [address] [place] [address] Dr. Camilo Reese Creatinine [Mass/Vol] 0.95 mg/dL Normal 0.55-1.02 [facility] Comment on above: Performed By: #### C MP #### [facility] [address] [place] [address] Dr. Camilo Reese EGFR-AF MALDIVIAN >60 Normal >=60 [facility] Comment on above: Performed By: #### C MP #### [facility] [address] [address] [address] Camilo Reese EGFR-NON AF MALDIVIAN 59 mL/min/1.73m2 Critically low >=60 [facility] Comment on above: Performed By: #### C MP #### [facility] [address] [address] [address] Camilo Reese Globulin (S) [Mass/Vol] 3.4 g/dL Normal [facility] Comment on above: Performed By: #### C MP #### [facility] [address] [place] [address] Dr. Camilo Reese Glucose [Mass/Vol] 101 mg/dL Normal 74-106 [facility] Comment on above: Performed By: #### C MP #### [facility] [address] [address] [address] Camilo Reese Potassium [Moles/Vol] 3.4 mmol/L Critically low 3.5-5.1 [facility] Comment on above: Performed By: #### C MP #### [facility] [address] [address] [address] Camilo Reese Protein [Mass/Vol] 7.4 g/dL Normal 6.4-8.2 [facility] Comment on above: Performed By: #### C MP #### [facility] [address] [address] [address] Camilo Reese Sodium [Moles/Vol] 140 mmol/L Normal 136-145 [facility] Comment on above: Performed By: #### C MP #### [facility] [address] [place] [address] Dr. Camilo Reese Urea nitrogen [Mass/Vol] 17.0 mg/dL Normal 7.0-18.0 [facility] Comment on above: Performed By: #### C MP #### [facility] [address] [address] [address] Camilo Reese Urea nitrogen/Creatinine [Mass ratio] 17.9 mg/mg Normal [facility] Comment on above: Performed By: #### C MP #### [facility] [address] [place] [address] Dr. Camilo Reese URINE MICROSCOPIC ONLYon BACTERIA TRACE Abnormal NONE SEEN [facility] Comment on above: Performed By: #### U MICRO, ERUR #### [facility] [address] [place] [address] Dr. Camilo Reese Bacteria identified Cx Nom (U) NOT INDICATED Normal [facility] Comment on above: Performed By: #### U MICRO, ERUR #### [facility] [address] [place] [address] Dr. Camilo Reese CAST NONE SEEN Normal NONE SEEN [facility] Comment on above: Performed By: #### U MICRO, ERUR #### [facility] [address] [address] [address] Camilo Reese Crystals LM Nom (Urine sed) NONE SEEN Normal NONE SEEN [facility] Comment on above: Performed By: #### U MICRO, ERUR #### [facility] [address] [place] [address] Dr. Camilo Reese Epithelial cells LM Ql (Urine sed) RARE Normal NONE SEEN /RARE [facility] Comment on above: Performed By: #### U MICRO, ERUR #### [facility] [address] [address] [address] Camilo Reese MUCOUS TRACE Abnormal NONE SEEN [facility] Comment on above: Performed By: #### U MICRO, ERUR #### [facility] [address] [place] [address] Dr. Camilo Reese RBC 0-2 Normal 0-2 [facility] Comment on above: Performed By: #### U MICRO, ERUR #### [facility] [address] [place] [address] Dr. Camilo Reese WBC NONE SEEN Normal NONE SEEN [facility] Comment on above: Performed By: #### U MICRO, ERUR #### [facility] [address] [place] [address] Dr. Camilo Reese US EXT NON VASC CMPLTon US EXT NON VASC CMPLT EXAMINATION: US EX T NON VASC CMPLT HISTORY: Vaginal pain ; [...] DEREK MCCRAY Date: 2023-02-18 14:07 Normal [facility] Urinalysis - AUTOMATEDon Appearance (U) clear [employer] Other Bilirubin Ql (U) Negative [employer] Other Color (U) light yellow [facility] Other Glucose Ql (U) Negative [employer] Other Hemoglobin Ql (U) trace intact [facility] Other Ketones Ql (U) Negative [employer] Other Leukocyte esterase Test strip Ql (U) Negative [facility] Other Nitrite Ql (U) Negative [employer] Other pH (U) 6.0 [pH] [facility] Other Protein Ql (U) Negative [employer] Other Specific gravity (U) [Rel density] <1.005 [facility] Other Urobilinogen (U) [Mass/Vol] 0.2 mg/dL [facility] Other Urinalysis - AUTOMATED [facility] Other CBC AUTO DIFFon 11-01-2022 BASO # 0.1 103/ul Normal 0.0-0.1 [facility] Comment on above: Performed By: #### D ATCBC #### [facility] [address] [place] [address] Dr. Camilo Reese Basophils/100 WBC (Bld) 1.3 % Normal 0.2-2.0 [facility] Comment on above: Performed By: #### D ATCBC #### [facility] [address] [place] [address] Dr. Camilo Reese EO # 0.2 103/ul Normal 0.0-0.7 [facility] Comment on above: Performed By: #### D ATCBC #### [facility] [address] [place] [address] Dr. Camilo Reese Eosinophils/100 WBC (Bld) 5.2 % Normal 0.9-7.0 [facility] Comment on above: Performed By: #### D ATCBC #### [facility] [address] [place] [address] Dr. Camilo Reese Erythrocyte distribution width (RBC) [Ratio] 14.6 % Normal 11.0-15.0 [facility] Comment on above: Performed By: #### D ATCBC #### [facility] [address] [place] [address] Dr. Camilo Reese Hematocrit (Bld) [Volume fraction] 42.9 % Normal 36.0-48.0 [facility] Comment on above: Performed By: #### D ATCBC #### [facility] [address] [place] [address] Dr. Camilo Reese Hemoglobin (Bld) [Mass/Vol] 13.9 g/dL Normal 12.0-16.0 [facility] Comment on above: Performed By: #### D ATCBC #### [facility] [address] [place] [address] Dr. Camilo Reese IG # 0.01 10e3/ul Normal 0.00-0.03 [facility] Comment on above: Performed By: #### D ATCBC #### [facility] [address] [place] [address] Dr. Camilo Reese IG % 0.3 % Normal 0.0-0.5 [facility] Comment on above: Performed By: #### D ATCBC #### [facility] [address] [place] [address] Dr. Camilo Reese LYMPH # 1.3 103/ul Normal 1.2-3.8 [facility] Comment on above: Performed By: #### D ATCBC #### [facility] [address] [place] [address] Dr. Camilo Reese Lymphocytes/100 WBC (Bld) 33.6 % Normal 20.5-60.0 [facility] Comment on above: Performed By: #### D ATCBC #### [facility] [address] [place] [address] Dr. Camilo Reese MCH (RBC) [Entitic mass] 28.7 pg Normal 26.7-34.0 [facility] Comment on above: Performed By: #### D ATCBC #### [facility] [address] [address] [address] Camilo Reese MCHC (RBC) [Mass/Vol] 32.4 g/dL Normal 29.9-35.2 [facility] Comment on above: Performed By: #### D ATCBC #### [facility] [address] [place] [address] Dr. Camilo Reese MCV (RBC) [Entitic vol] 88.5 fL Normal 81.0-99.0 [facility] Comment on above: Performed By: #### D ATCBC #### [facility] [address] [place] [address] Dr. Camilo Reese MONO # 0.6 103/ul Normal 0.3-0.8 [facility] Comment on above: Performed By: #### D ATCBC #### [facility] [address] [place] [address] Dr. Camilo Reese Monocytes/100 WBC (Bld) 15.0 % Critically high 1.7-12.0 [facility] Comment on above: Performed By: #### D ATCBC #### [facility] [address] [place] [address] Dr. Camilo Reese NEUT # 1.7 103/ul Normal 1.4-6.5 [facility] Comment on above: Performed By: #### D ATCBC #### [facility] [address] [place] [address] Dr. Camilo Reese Neutrophils/100 WBC (Bld) 44.6 % Normal 43.0-75.0 [facility] Comment on above: Performed By: #### D ATCBC #### [facility] [address] [place] [address] Dr. Camilo Reese Platelet mean volume (Bld) [Entitic vol] 11.5 fL Normal 9.5-13.5 [facility] Comment on above: Performed By: #### D ATCBC #### [facility] [address] [place] [address] Dr. Camilo Reese PLT 240 103/ul Normal 150-450 [facility] Comment on above: Performed By: #### D ATCBC #### [facility] [address] [address] [address] Camilo Reese RBC 4.85 106/ul Normal 4.20-5.40 [facility] Comment on above: Performed By: #### D ATCBC #### [facility] [address] [address] [address] Camilo Reese WBC 3.8 103/ul Critically low 4.0-11.0 [facility] Comment on above: Performed By: #### D ATCBC #### [facility] [address] [address] [address] Camilo Reese DAMARIS- BMP WITH LIPIDon 2022 Anion gap [Moles/Vol] 10.7 mmol/L Normal [facility] Comment on above: Performed By: #### D ATBMP #### [facility] [address] [address] [address] Camilo Reese Calcium [Mass/Vol] 9.1 mg/dL Normal 8.5-10.1 [facility] Comment on above: Performed By: #### D ATBMP #### [facility] [address] [address] [address] Camilo Reese Chloride [Moles/Vol] 103 mmol/L Normal 98-107 [facility] Comment on above: Performed By: #### D ATBMP #### [facility] [address] [address] [address] Camilo Reese Cholesterol [Mass/Vol] 216 mg/dL Critically high <=200 [facility] Comment on above: Performed By: #### D ATBMP #### [facility] [address] [address] [address] Camilo Reese Cholesterol in HDL [Mass/Vol] 111 mg/dL Critically high 40-60 [facility] Comment on above: Performed By: #### D ATBMP #### [facility] [address] [address] [address] Camilo Reese Cholesterol in LDL [Mass/Vol] 91.0 mg/dL Normal [facility] Comment on above: Performed By: #### D ATBMP #### [facility] [address] [address] [address] Camilo Reese CO2 [Moles/Vol] 31.4 mmol/L Normal 21.0-32.0 [facility] Comment on above: Performed By: #### D ATBMP #### [facility] [address] [address] [address] Camilo Reese Creatinine [Mass/Vol] 0.72 mg/dL Normal 0.55-1.02 [facility] Comment on above: Performed By: #### D ATBMP #### [facility] [address] [address] [address] Camilo Reese EGFR-AF MALDIVIAN >60 Normal >=60 [facility] Comment on above: Performed By: #### D ATBMP #### [facility] [address] [address] [address] Camilo Reese EGFR-NON AF MALDIVIAN >60 Normal >=60 [facility] Comment on above: Performed By: #### D ATBMP #### [facility] [address] [address] [address] Camilo Reese Glucose [Mass/Vol] 89 mg/dL Normal 74-106 [facility] Comment on above: Performed By: #### D ATBMP #### [facility] [address] [address] [address] Camilo Reese HDL NORMAL > or = 60 mg/dl - LO W CARDIOVASCULAR RISK <40 mg/dl - HIGH CARDIOVASCULAR RISK Normal [facility] Comment on above: Performed By: #### D ATBMP #### [facility] [address] [address] [address] Camilo Reese LDL CALC NORMAL SEE BELOW Normal [facility] Comment on above: Result Comment: <100 mg/dl OPTIMAL 100 - 129 mg/dl NEAR OR ABOVE OPTIMAL 130 - 159 mg/dl BORDERLINE HIGH 160 - 189 mg/dl HIGH >190 mg/dl VERY HIGH Performed By: #### D ATBMP #### [facility] [address] [address] [address] Camilo Reese Potassium [Moles/Vol] 4.1 mmol/L Normal 3.5-5.1 [facility] Comment on above: Performed By: #### D ATBMP #### [facility] [address] [address] [address] Camilo Reese Sodium [Moles/Vol] 141 mmol/L Normal 136-145 [facility] Comment on above: Performed By: #### D ATBMP #### [facility] [address] [address] [address] Camilo Reese Triglyceride [Mass/Vol] 70 mg/dL Normal <=150 [facility] Comment on above: Performed By: #### D ATBMP #### [facility] [address] [address] [address] Camilo Reese Urea nitrogen [Mass/Vol] 17.0 mg/dL Normal 7.0-18.0 [facility] Comment on above: Performed By: #### D ATBMP #### [facility] [address] [address] [address] Camilo Reese Urea nitrogen/Creatinine [Mass ratio] 23.6 mg/mg Normal [facility] Comment on above: Performed By: #### D ATBMP #### [facility] [address] [address] [address] Camilo Reese VLDL CALC 14.0 mg/dL Normal [facility] Comment on above: Performed By: #### D ATBMP #### [facility] [address] [address] [address] Camilo Reese MG MAMM SCREEN 3D ALYSON CADon 08-13-2022 MG MAMM SCREEN 3D ALYSON CAD Patient: KAREN ZAIDI Exam Date: 08/13/2022 : 1955 Gender:F Ordering : DR AMMON LUCAS M.D. Admission #: [id number] Family : Order #: [id number] CLICK HERE TO VIEW EXAM RADIOLOGY REPORT PROCEDURE: MAMMOGRAM SCREENING 3D BILATERAL CAD COMPARISON: MG MAMM SCREEN ALYSON W CAD, 08/10/2018. INDICATIONS: Screening mammography Calculator Name NCI Breast Cancer Risk Assessment Tool 5 Year Breast Cancer Risk 1.40% Lifetime Breast Cancer Risk 5.80% Personal Breast Cancer No Personal Ovarian Cancer No Treatments None Family Cancers None LOCATION: [facility] BREAST COMPOSITION: Scattered areas fibroglandular density. [...] MD on 08/13/2022 at 15:43 Normal [facility] SARS-CoV-2 (COVID-19) RNA NA A+probe Ql (Resp)on 07-28-2022 SARS-CoV-2 (COVID-19) RNA CHLOE+probe Ql (Unsp spec) Negative [facility] Other Main OR Intraoperative Recor don 07-09-2018 Main OR Intraoperative Record IntraOp Document Type FT Summary Primary Physician: Joel Monroe MD Finalized Date/Time: 07/09/18 12:32:26 Pt. Name: KAREN ZAIDI Jose Manuel ToroB./Sex: 1955 Female Med Rec #: [id number] Physician: Joel Monroe MD Financial #: [id number] Pt. Type: A Room/Bed: [address] [address] Admit/Disch: 05/21/18 07:49:00 - 05/21/18 12:55:00 Institution: [...] Entry 3 Case Attendee Richie FRITZ DO, Joel Lyons MD BSN, RN, Ileana Role Performed Anesthesiologist of Surgeon - Primary Email Marketing Processor - Primary Record Time In 05/21/18 10:37:00 [...] Pura Gutierrez CST, Giancarlo Villarreal Role Performed Yeast Distiller Scrub - Primary Road Hogger Operator Time In 05/21/18 10:37:00 05/21/18 10:37:00 [...] and tissue Entry 1 Skin Integrity Intact, [place], Warm, and Skin Abnormality No Dry Outcomes [...] Kelly Patient Status Stable Skin. Condition Intact, [place], Warm, and Dry Airway Maintenance Oxygen in [...] safely administered during the perioperative period For [facility] please see scanned medication reconcilliation form [...] BLANKET MISTRAL AIR Quantity 1 Aid TORSO [[id number]][F] Fluid/[place] Unit Mistral warming system Setting high Body Site Upper anterior torso Last Modified By: Lauren CARRILLO RN, Kelly 05/21/18 10:54:28 Case Comments Finalized By: Lauren CARRILLO RN, Kelly Document Signatures Signed By: Lauren CARRILLO RN, Kelly 05/21/18 11:09 Lauren CARRILLO RN, Kelly 05/21/18 11:09 Kira Carmona CST 05/22/18 09:27 Lauren CARRILLO RN, Kelly 07/09/18 12:32 Normal [facility] Coding Summary.on 05-25-2018 Coding Summary. 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 However, the narrative phrase printed from the coding software may appear abbreviated, or result in slightly different terminology. Revised Coded By: Lanny Lazcano Revised Date Saved: 05/25/2018 02:20 pm Normal [facility] Operative Reporton 8 Operative Report Date of Surgery: 05/21/2018SURGEON: Joel Monroe M.D.PREOPERATIVE DIAGNOSIS: N13.2 left hydronephrosis with left ureteralcalculusPOSTOPER ATIVE DIAGNOSIS: N13.2 left hydronephrosis with left ureteralcalculusOPERATIO N: Cystoscopy, left retrograde pyelogramCOMPLICATIONS: NoneANESTHESIA: General by laryngeal mask airwayANESTHESIOLOGIST: Shira Quiroz Jr., D.O.FINDINGS: No evidence of ureteral stone or obstructionINDICATIONS: Mrs. Zaidi is a 62 year old female who [facility] with ongoing severe left-sided inguinal/vaginal pain. [...] isplaced per urethra. A well lubricated 22 [place] cystourethroscope with 30degree lens is then passed into the bladder. Moderately tight through theurethra upon passage. Once into the bladder panendoscopy reveals no tumors,no stones, no diverticula. The orifices are normal x2. Specifically thereis absolutely no left-sided ureteral inflammation. There is no erythema.There is nothing to suggest recent passage of a stone. A left retrogradepyelogram was then performed utilizing a 6 [place] open-ended ureteralcatheter. The ureter is completely normal [...] the procedure well, was transferred to the [facility] then back to Post-Anesthesia Care Unit [...] six months with [place].Joel Monroe M.D.lkrDictated: 05/21/2018 #[id number]: 05/22/2018 #[id number]: Steve Tinajero M.D. [facility] Comment on above: Result Comment: Elec tronically Signed By: Joel Monroe MD\.br\Date and Time Signed: 05/22/18 16:45 EDT Inpatient Patient Summaryon 05-21-2018 [facility] InstructionsP[facility] INFORMATION Name: KAREN ZAIDI PHYSICIANS Admitting Physician: Joel Monroe MDAttending Physician: Joel Monroe MD PCP: Lewis LUCAS MD Diagnosis: Hydronephrosis with ureteral calculus Comment: PATIENT EDUCATION INFORMATIONInstructions: Medication Leaflets:Follow up:With: Address: When: Joel Alfaro [facility], [address], [place] [id number] [facility] (6) In 6 months 11/21/2018 Comments: Please have my office arrange for an abdominal X-ray before your visit (looking for stones in the kidneys) MEDICATION LISTComment: [facility] Main OR PACU I Recordon Main OR PACU I Record PACU Phase I Docum ent Type FT Summary Primary Physician: Joel Monroe MD Finalized Date/Time: 05/21/18 12:01:48 Pt. Name: KAREN ZAIDI /Sex: 1955 Female Med Rec #: [id number] Physician: Joel Monroe MD Financial #: [id number] Pt. Type: A Room/Bed: Admit/Disch: 05/21/18 07:49:37 [...] By: Alisa Grider RN 05/21/18 12:01 Normal [facility] Main OR PACU II Recordon Main OR PACU II Record PACU Phase II Document Type FT Summary Primary Physician: Joel Monroe MD Finalized Date/Time: 05/21/18 13:41:43 Pt. Name: KAREN ZAIDI Jose Manuel Freitas./Sex: 1955 Female Med Rec #: [id number] Physician: Joel Monroe MD Financial #: [id number] Pt. Type: A Room/Bed: [address] [address] Admit/Disch: 05/21/18 07:49:37 - Institution: Case Times [...] Signed By: Almita Poe RN 05/21/18 13:41 [facility] Main OR Preoperative Recordo n 05-21-2018 Main OR Preoperative Record PreOp Document Type FT Summary Primary Physician: Joel Monroe MD Finalized Date/Time: 05/21/18 10:37:48 Pt. Name: KAREN ZAIDI /Sex: 1955 Female Med Rec #: [id number] Physician: Joel Monroe MD Financial #: [id number] Pt. Type: A Room/Bed: [address] [address] Admit/Disch: 05/21/18 07:49:37 - Institution: Case Times [...] Velez RN, Lou Ann 05/21/18 10:37 Normal [facility] Patient Education - Texton 0 05-21-2018 Patient Education - Text Normal [facility] Progress Note-Physicianon Protein mass conc Patient: SHAYNA ZAIDI Age: 62 years Sex: Female : 1955 Associated Diagnoses: None Author: Kian Quiroz JR, DO Postoperative Information Post Operative Note: Post Anesthesia Care Unit. Anesthetic utilized: General, Monitored anesthesia care. Health Status Allergies: Allergic Reactions (Selected)SevereAmoxicil gerri- Rash.Bee Stings- Redness.Clindamycin- Rash.Doxycycline- Stomach upset.Penicillins- Rash. Current medications: (Selected) Inpatient SaiezgpqahdHngttfxH8LE 1000 mL Soln-IV 1,000 mL: 1,000 mL, IV, 150 mL/hr, Routine, Start date 05/21/18 8:45:00 EDT, 6.7 hour(s), Total volume (mL): 1,000Documented MedicationsDocumentedMac robid: 100 mg, Oral, BID, Refills(s) 0, Bladder problemsVicodin: 1 tab(s), Oral, q4hr as needed for pain, Refill(s) 0, Painibuprofen 800 mg Tab: 800 mg = 1 tab(s), Oral, TID, PRN as needed for pain, Refills(s) 0, Pain Problem list: All ProblemsKidney stone on left side / SNOMED CT 739689494 / ConfirmedArthritis / SNOMED CT 9855564 / Confirmed Physical Examination Intake and Output Denies significant n/v and is tolerating p.o. Vital Signs (last 24 hrs) Last Charted Temp Oral 36.9 DegC (MAY 21 12:55)Heart Rate Apical 70 bpm (MAY 21 09:00)Resp Rate 16 br/min (MAY 21 12:55)SBP 138 mmHg (MAY 21 12:55)DBP 81 mmHg (MAY 21 12:55)SpO2 99 % (MAY 21 12:55) Pain assessment: Pain Assessment 05/21/2018 12:55 EDT [...] 6 . Respiratory: Adequate air exchange with buddhism of preoperative function.. Cardiovascular: Cardiovascular function is stable and has returned to preoperative levels.. Neurologic: Pt has returned to preoperative baseline.. Review / Management Condition: Stable. Assessment Anesthetic outcome No anesthetic complications noted. Plan Transfer/ Discharge: Patient can be discharged from PACU when criteria met. Condition good. Normal [facility] Comment on above: Result Comment: Elec tronically Signed By: Kian Quiroz JR, DO\.br\Date and Time Signed: 05/21/18 16:05 EDT Protein mass conc Patient: SHAYNA ZAIDI Age: 62 years Sex: Female : 1955 Associated Diagnoses: None Author: Kian Quiroz JR, DO Postoperative Information Post Operative Note: Post Anesthesia Care Unit. Anesthetic utilized: General, Monitored anesthesia care. Health Status Allergies: Allergic Reactions (Selected)SevereAmoxicil gerri- Rash.Bee Stings- Redness.Clindamycin- Rash.Doxycycline- Stomach upset.Penicillins- Rash. Current medications: (Selected) Inpatient NqauckgotolLrvlkflV3IA 1000 mL Soln-IV 1,000 mL: 1,000 mL, [...] times, Routine, Start date 05/21/18 10:19:00 EDTDocumented MedicationsDocumentedMac robid: 100 mg, Oral, BID, Refills(s) 0, Bladder problemsVicodin: 1 tab(s), Oral, q4hr as needed for pain, Refill(s) 0, Painibuprofen 800 mg Tab: 800 mg = 1 tab(s), Oral, TID, PRN as needed for pain, Refills(s) 0, Pain Problem list: All ProblemsKidney stone on left side / SNOMED CT 725152031 / ConfirmedArthritis / SNOMED CT 1270308 / Confirmed Physical Examination Intake and Output [...] 6 . Respiratory: Adequate air exchange with buddhism of preoperative function.. Cardiovascular: Cardiovascular function is stable and has returned to preoperative levels.. Neurologic: Pt has returned to preoperative baseline.. Review / Management Condition: Stable. Assessment Anesthetic outcome No anesthetic complications noted. Plan Transfer/ Discharge: Patient can be discharged from PACU when criteria met. Condition good. Normal [facility] Protein mass conc Patient: SHAYNA ZAIDI Age: [...] neurological changes.. Health Status Allergies: Allergic Reactions (Selected)SevereAmoxicil gerri- Rash.Bee Stings- Redness.Clindamycin- Rash.Doxycycline- Stomach upset.Penicillins- Rash., Allergies (5) Active Reactionamoxicillin RashBee Stings Rednessclindamycin Rashdoxycycline Stomach upsetpenicillins Rash Current medications: (Selected) Inpatient PifvbcpahnsNmueyswE5DH 1000 mL Soln-IV 1,000 mL: 1,000 mL, [...] times, Routine, Start date 05/21/18 10:19:00 EDTDocumented MedicationsDocumentedMac robid: 100 mg, Oral, BID, Refills(s) 0, Bladder [...] [F] 0.4 mg 0.2 mL, IV Push, e1haiflypwqbnpcdy 25 mg/mL Inj [F] 12.5 mg 0.5 mL, IV Push, q2min Problem list: All ProblemsKidney stone on left side / SNOMED CT 630935474 / ConfirmedArthritis / SNOMED CT 4549259 / Confirmed, Active Problems (2)Arthritis Kidney stone on left side Histories Past Medical History: No active or resolved past medical history items have been selected or recorded. Family History: No family history items have been selected or recorded. Procedure history: Cholecystectomy (10872457).knee arthroscopy for torn meniscus, rt.Tubal ligation ([id number]). Social History Social & Psychosocial LtzxkcVnafvwm32/07/2018 Risk Assessment: Denies Alcohol UseSubstance Abuse05/19/2018 Risk Assessment: Denies Substance EllxtAxucnmg84/07/2018 Risk Assessment: Denies Tobacco Use. Physical Examination [...] Results review: No qualifying data available. Plan [place] [employer] (ASA) physical status classification: Class II. Anesthetic Preoperative Plan Anesthesia: General. . Anesthetic plan, risks, benefits, and alternatives discussed with the patient and/or family. Pt. and/or family present and agree to proceed as planned.. Discussed the importance of abstaining from tobacco products, and offered counseling if desired. Normal [facility] Comment on above: Result Comment: Elec tronically [...] MD Transcribed by: DORON Technologist: FRANCISCA Normal [facility] XR Urography Retrograde Left on 05-21-2018 XR Urography Retrograde Left Exam Date/Time:05/21/2018 12:42 EDTReason for Exam:stoneReportIMPRESSI ON: UNREMARKABLE LEFT RETROGRADE PYELOGRAMCLINICAL HISTORY: stoneCOMPARISON: NONE. [...] mGy = 3.1Fluoro Time: 54 seconds Normal [facility] Coding Summary.on 05-20-2018 Coding Summary. CODING DATE: 018 [facility] STATUS: Home (Routine DC) PAYOR: Commercial [...] Eng Date Saved: 05/20/2018 01:06 pm Normal [facility] PT & PTTon 05-19-2018 aPTT Coag time (Bld) 30.5 second(s) Normal 25.1-36.5 [facility] Comment on above: Result Comment: Hepa rin therapeutic range (represented by Anti-Factor Xa activity of 0.2 - 0.4 U/mL) corresponds to PTT of 53.9 - 87.4 sec. Performed By: #### 1 [id number] ####[facility] [id number] [place] [address] INR Coag RelTime (PPP) 1.0 {INR} Invalid Interpretation Code [facility] Comment on above: Result Comment: INR results are specifically intended to assess patients stabilized on long-term Anticoagulation therapy suggested INR?s ?Less Intensive Anticoagulation? 2.0 ? 3.0Conventional Range 3.0 ? 4.5 Performed By: #### 1 [id number] ####[facility] [id number] [place] [address] Prothrombin time (PT) Coag time (PPP) 10.9 second(s) Normal 10.2-12.9 [facility] Comment on above: Performed By: #### 1 [id number] ####[id number] [place] [address] XR Chest 2 Viewson 8 XR Chest [...] MD Transcribed by: akbar Technologist: SHARRON Normal [facility] Vital Signs Date Time Vital Sign Value Performing Clinician Facility 06-03-2025 10:59-0400 Body height 170.18 cm Ammon Lucas MD Work Phone: [facility] 06-03-2025 10:59-0400 Body mass index (BMI) [Ratio] 22.5 kg/m2 Ammon Lucas MD Work Phone: [facility] 06-03-2025 10:59-0400 Body weight 65.31 kg Ammon Lucas MD Work Phone: [facility] 06-03-2025 10:59-0400 Diastolic blood pressure 73 mm[Hg] Ammon Lucas MD Work Phone: [facility] 06-03-2025 10:59-0400 Heart rate 63 /min Ammon Lucas MD Work Phone: [facility] 06-03-2025 10:59-0400 Systolic blood pressure 117 mm[Hg] Ammon Lucas MD Work Phone: [facility] 06-02-2025 08:52-0400 Body height 170.2 cm Dania Briana DO Work Phone: [facility] 06-02-2025 08:52-0400 Body mass index (BMI) [Ratio] 21.93 kg/m2 Dania Briana DO Work Phone: [facility] 06-02-2025 08:52-0400 Body weight 63.5 kg Dania Briana DO Work Phone: [facility] 06-02-2025 08:52-0400 Diastolic blood pressure 92 mm[Hg] Dania Briana DO Work Phone: [facility] 06-02-2025 08:52-0400 Heart rate 65 /min Dania Briana DO Work Phone: [facility] 06-02-2025 08:52-0400 SaO2% (BldA) [Mass fraction] 99 % Dania Briana DO Work Phone: [facility] 06-02-2025 08:52-0400 Systolic blood pressure 157 mm[Hg] Daniaibrahima Steven DO Work Phone: [facility] 03-08-2025 15:43-0400 Diastolic blood pressure 66 mm[Hg] Augustina Vargas MD Work Phone: [facility] 03-08-2025 15:43-0400 Systolic blood pressure 120 mm[Hg] Augustina Vargas MD Work Phone: [facility] 02-08-2025 11:22-0400 Body mass index (BMI) [Ratio] 21.79 kg/m2 Gi Siddiqi MD Work Phone: [facility] 02-08-2025 11:22-0400 Body weight 63.1 kg Gi Siddiqi MD Work Phone: [facility] 02-08-2025 11:22-0400 Diastolic blood pressure 83 mm[Hg] Gi Siddiqi MD Work Phone: [facility] 02-08-2025 11:22-0400 Heart rate 65 /min Gi Siddiqi MD Work Phone: [facility] 02-08-2025 11:22-0400 Systolic blood pressure 146 mm[Hg] Gi Siddiqi MD Work Phone: [facility] 12-08-2024 16:04-0500 Body mass index (BMI) [Ratio] 21.61 kg/m2 Augustina Vargas MD Work Phone: [facility] 12-08-2024 16:04-0500 Body weight 62.6 kg Augustina Vargas MD Work Phone: [facility] 12-08-2024 16:04-0500 Diastolic blood pressure 74 mm[Hg] Augustina Vargas MD Work Phone: [facility] 12-08-2024 16:04-0500 Systolic blood pressure 140 mm[Hg] Augustina Vargas MD Work Phone: [facility] 12-06-2024 11:04-0500 Body mass index (BMI) [Ratio] 22.15 kg/m2 Keri Topete PA Work Phone: [facility] 12-06-2024 11:04-0500 Body weight 64.14 kg Keri Efrem PA Work Phone: [facility] 12-06-2024 11:04-0500 Diastolic blood pressure 72 mm[Hg] Keri Efrem PA Work Phone: [facility] 12-06-2024 11:04-0500 Systolic blood pressure 130 mm[Hg] Keri Ledesmaey PA Work Phone: [facility] 07-26-2024 10:19-0400 Body height 170.2 cm Sarah Godwin MD Work Phone: [facility] 07-26-2024 10:19-0400 Body mass index (BMI) [Ratio] 21.64 kg/m2 Sarah Godwin MD Work Phone: [facility] 07-26-2024 10:19-0400 Body temperature 98.29 [degF] Sarah Godwin MD Work Phone: [facility] 07-26-2024 10:19-0400 Body weight 62.69 kg Sarah Godwin MD Work Phone: [facility] 07-06-2024 10:26-0400 Body mass index (BMI) [Ratio] 21.27 kg/m2 Augustina Vargas MD Work Phone: [facility] 07-06-2024 10:26-0400 Body weight 61.6 kg Augustina Vargas MD Work Phone: [facility] 07-06-2024 10:26-0400 Diastolic blood pressure 70 mm[Hg] Augustina Vargas MD Work Phone: [facility] 07-06-2024 10:26-0400 Systolic blood pressure 132 mm[Hg] Augustina Vargas MD Work Phone: [facility] 06-03-2024 08:47-0400 Body height 170.2 cm Dania Briana DO Work Phone: [facility] 06-03-2024 08:47-0400 Body mass index (BMI) [Ratio] 21.77 kg/m2 Dania Briana DO Work Phone: [facility] 06-03-2024 08:47-0400 Body weight 63.05 kg Dania Briana DO Work Phone: [facility] 06-03-2024 08:47-0400 Diastolic blood pressure 57 mm[Hg] Dania Briana DO Work Phone: [facility] 06-03-2024 08:47-0400 Heart rate 66 /min Dania Briana DO Work Phone: [facility] 06-03-2024 08:47-0400 SaO2% (BldA) [Mass fraction] 99 % Dania Briana DO Work Phone: [facility] 06-03-2024 08:47-0400 Systolic blood pressure 117 mm[Hg] Dania Briana DO Work Phone: [facility] 05-27-2024 08:49-0400 Body height 170.2 cm Augustina Vargas MD Work Phone: [facility] 05-27-2024 08:49-0400 Body mass index (BMI) [Ratio] 20.83 kg/m2 Augustina Vargas MD Work Phone: [facility] 05-27-2024 08:49-0400 Body weight 60.33 kg Augustina Vargas MD Work Phone: [facility] 05-27-2024 08:49-0400 Diastolic blood pressure 80 mm[Hg] Augustina Vargas MD Work Phone: [facility] 05-27-2024 08:49-0400 Systolic blood pressure 146 mm[Hg] Augustina Vargas MD Work Phone: [facility] 02-19-2024 12:57-0400 Body height 170.2 cm [facility] 9 Work Phone: [facility] 02-19-2024 12:57-0400 Body mass index (BMI) [Ratio] 20.92 kg/m2 Pac 9 Work Phone: [facility] 02-19-2024 12:57-0400 Body temperature 97 [degF] Pac 9 Work Phone: [facility] 02-19-2024 12:57-0400 Body weight 60.6 kg Pac 9 Work Phone: [facility] 02-19-2024 12:57-0400 Diastolic blood pressure 71 mm[Hg] Pac 9 Work Phone: [facility] 02-19-2024 12:57-0400 Heart rate 60 /min [facility] 9 Work Phone: [facility] 02-19-2024 12:57-0400 SaO2% (BldA) [Mass fraction] 100 % [facility] 9 Work Phone: [facility] 02-19-2024 12:57-0400 Systolic blood pressure 137 mm[Hg] [facility] 9 Work Phone: [facility] 02-10-2024 09:53-0400 Body height 170.2 cm Sarah Godwin MD Work Phone: [facility] 02-10-2024 09:53-0400 Body mass index (BMI) [Ratio] 20.86 kg/m2 Sarah Godwin MD Work Phone: [facility] 02-10-2024 09:53-0400 Body temperature 98.71 [degF] Sarah Godwin MD Work Phone: [facility] 02-10-2024 09:53-0400 Body weight 60.42 kg Sarah Godwin MD Work Phone: [facility] 12-18-2023 11:37-0500 Body height 168.9 cm Rina Fox MD Work Phone: [facility] 12-18-2023 11:37-0500 Body temperature 98.29 [degF] Rina Fox MD Work Phone: [facility] 12-18-2023 11:37-0500 Body weight 58.42 kg Rina Fox MD Work Phone: [facility] 12-18-2023 11:37-0500 Diastolic blood pressure 87 mm[Hg] Rina Fox MD Work Phone: [facility] 12-18-2023 11:37-0500 Heart rate 64 /min Rina Fox MD Work Phone: [facility] 12-18-2023 11:37-0500 Respiratory rate 14 /min Rina Fox MD Work Phone: [facility] 12-18-2023 11:37-0500 SaO2% (BldA) [Mass fraction] 100 % Rina Fox MD Work Phone: [facility] 12-18-2023 11:37-0500 Systolic blood pressure 131 mm[Hg] Rina Fox MD Work Phone: [facility] 12-02-2023 12:23-0500 Body height 170.2 cm Matthew Iwema PA-C Work Phone: [facility] 12-02-2023 12:23-0500 Body mass index (BMI) [Ratio] 20.45 kg/m2 Matthew Iwema PA-C Work Phone: [facility] 12-02-2023 12:23-0500 Body temperature 98.01 [degF] Matthew Iwema PA-C Work Phone: [facility] 12-02-2023 12:23-0500 Body weight 59.24 kg Matthew Iwema PA-C Work Phone: [facility] 11-12-2023 14:20-0500 Body height 170.2 cm [facility] 11-12-2023 14:20-0500 Body mass index (BMI) [Ratio] 20.92 kg/m2 [facility] 11-12-2023 14:20-0500 Body temperature 98.2 [degF] [facility] 11-12-2023 14:20-0500 Body weight 60.6 kg [facility] 11-12-2023 14:20-0500 Diastolic blood pressure 81 mm[Hg] [facility] 11-12-2023 14:20-0500 Heart rate 67 /min [facility] 11-12-2023 14:20-0500 Respiratory rate 18 /min [facility] 11-12-2023 14:20-0500 SaO2% (BldA) [Mass fraction] 98 % [facility] 11-12-2023 14:20-0500 Systolic blood pressure 127 mm[Hg] [facility] 09-30-2023 15:43-0500 Body height 170.2 cm Sarah Godwin MD Work Phone: [facility] 09-30-2023 15:43-0500 Body mass index (BMI) [Ratio] 20.05 kg/m2 Sarah Godwin MD Work Phone: [facility] 09-30-2023 15:43-0500 Body temperature 98.71 [degF] Sarah Godwin MD Work Phone: [facility] 09-30-2023 15:43-0500 Body weight 58.06 kg Sarah Godwin MD Work Phone: [facility] 09-01-2023 10:45-0500 Body height 167.64 cm Ammon Lucas Other [facility] Other 09-01-2023 10:45-0500 Body mass index (BMI) [Ratio] 19.69 kg/m2 Ammon Lucas Other [facility] Other 09-01-2023 10:45-0500 Body weight 55.34 kg Ammon Lucas Other [facility] Other 09-01-2023 10:45-0500 Diastolic blood pressure 76 mm[Hg] Ammon Lucas Other [facility] Other 09-01-2023 10:45-0500 Systolic blood pressure 138 mm[Hg] Ammon Lucas Other [facility] Other 07-29-2023 10:00-0400 Body height 167.64 cm Ammon Lucas Other [facility] Other 07-29-2023 10:00-0400 Body mass index (BMI) [Ratio] 19.72 kg/m2 Ammon Lucas Other [facility] Other 07-29-2023 10:00-0400 Body weight 55.43 kg Ammon Lucas Other [facility] Other 07-29-2023 10:00-0400 Diastolic blood pressure 76 mm[Hg] Ammon Lucas Other [facility] Other 07-29-2023 10:00-0400 Systolic blood pressure 123 mm[Hg] Ammon Lucas Other [facility] Other 07-02-2023 10:00-0400 Body height 167.64 cm Ammon Lucas Other [facility] Other 07-02-2023 10:00-0400 Body mass index (BMI) [Ratio] 20.01 kg/m2 Ammon Lucas Other [facility] Other 07-02-2023 10:00-0400 Body weight 56.25 kg Ammon Lucas Other [facility] Other 07-02-2023 10:00-0400 Diastolic blood pressure 88 mm[Hg] Ammon Lucas Other [facility] Other 07-02-2023 10:00-0400 Systolic blood pressure 145 mm[Hg] Ammon Lucas Other [facility] Other 06-06-2023 13:45-0400 Body height 167.64 cm Ammon Lucas Other [facility] Other 06-06-2023 13:45-0400 Body mass index (BMI) [Ratio] 20.66 kg/m2 Ammon Lucas Other [facility] Other 06-06-2023 13:45-0400 Body weight 58.06 kg Ammon Lucas Other [facility] Other 06-06-2023 13:45-0400 Diastolic blood pressure 70 mm[Hg] Ammon Lucas Other [facility] Other 06-06-2023 13:45-0400 SaO2% (BldA) [Mass fraction] 99 % Ammon Lucas Other [facility] Other 06-06-2023 13:45-0400 Systolic blood pressure 112 mm[Hg] Ammon Lucas Other [facility] Other 05-29-2023 09:50-0400 Body height 167.64 cm Ayaka Joyner Other [facility] Other 05-29-2023 09:50-0400 Body mass index (BMI) [Ratio] 20.43 kg/m2 Ayaka Joyner Other [facility] Other 05-29-2023 09:50-0400 Body temperature 98.3 [degF] Ayaka Joyner Other [facility] Other 05-29-2023 09:50-0400 Body weight 57.43 kg Ayaka Joyner Other [facility] Other 05-29-2023 09:50-0400 Diastolic blood pressure 88 mm[Hg] Ayaka Joyner Other [facility] Other 05-29-2023 09:50-0400 Respiratory rate 18 /min Ayaka Joyner Other [facility] Other 05-29-2023 09:50-0400 SaO2% (BldA) [Mass fraction] 96 % Ayaka Joyner Other [facility] Other 05-29-2023 09:50-0400 Systolic blood pressure 144 mm[Hg] Ayaka Joyner Other [facility] Other 02-11-2023 14:45-0400 Body height 167.64 cm Ammon Lucas Other [facility] Other 02-11-2023 14:45-0400 Body mass index (BMI) [Ratio] 22.76 kg/m2 Ammon Lucas Other [facility] Other 02-11-2023 14:45-0400 Body temperature 97.8 [degF] Ammon Lucas Other [facility] Other 02-11-2023 14:45-0400 Body weight 63.96 kg Ammon Lucas Other [facility] Other 02-11-2023 14:45-0400 Diastolic blood pressure 80 mm[Hg] Ammon Lucas Other [facility] Other 02-11-2023 14:45-0400 SaO2% (BldA) [Mass fraction] 93 % Ammon Lucas Other [facility] Other 02-11-2023 14:45-0400 Systolic blood pressure 148 mm[Hg] Ammon Lucas Other [facility] Other 02-11-2023 11:15-0400 Body height 168.91 cm Ayaka Joyner Other [facility] Other 02-11-2023 11:15-0400 Body mass index (BMI) [Ratio] 21.94 kg/m2 Ayaka Joyner Other [facility] Other 02-11-2023 11:15-0400 Body temperature 98.7 [degF] Ayaka Joyner Other [facility] Other 02-11-2023 11:15-0400 Body weight 62.6 kg Ayaka Joyner Other [facility] Other 02-11-2023 11:15-0400 Diastolic blood pressure 83 mm[Hg] Ayaka Joyner Other [facility] Other 02-11-2023 11:15-0400 Respiratory rate 18 /min Ayaka Joyner Other [facility] Other 02-11-2023 11:15-0400 SaO2% (BldA) [Mass fraction] 99 % Ayaka Joyner Other [facility] Other 02-11-2023 11:15-0400 Systolic blood pressure 152 mm[Hg] Ayaka Joyner Other [facility] Other 11-22-2022 13:35-0500 Body height 168.91 cm Ayaka Joyner Other [facility] Other 11-22-2022 13:35-0500 Body mass index (BMI) [Ratio] 22.1 kg/m2 Ayaka Joyner Other [facility] Other 11-22-2022 13:35-0500 Body temperature 98 [degF] Ayaka Joyner Other [facility] Other 11-22-2022 13:35-0500 Body weight 63.05 kg Ayaka Joyner Other [facility] Other 11-22-2022 13:35-0500 Respiratory rate 18 /min Ayaka Joyner Other [facility] Other 11-22-2022 13:35-0500 SaO2% (BldA) [Mass fraction] 98 % Ayaka Joyner Other [facility] Other 10-31-2022 15:30-0500 Body height 168.91 cm Ammon Lucas Other [facility] Other 10-31-2022 15:30-0500 Body mass index (BMI) [Ratio] 22.57 kg/m2 Ammon Lucas Other [facility] Other 10-31-2022 15:30-0500 Body weight 64.41 kg Ammon Lucas Other [facility] Other 10-31-2022 15:30-0500 Diastolic blood pressure 72 mm[Hg] Ammon Lucas Other [facility] Other 10-31-2022 15:30-0500 SaO2% (BldA) [Mass fraction] 97 % Ammon Lucas Other [facility] Other 10-31-2022 15:30-0500 Systolic blood pressure 128 mm[Hg] Ammon Lucas Other [facility] Other 07-28-2022 12:55-0400 Body height 170.18 cm Ayaka Joyner Other [facility] Other 07-28-2022 12:55-0400 Body mass index (BMI) [Ratio] 22.65 kg/m2 Ayaka Joyner Other [facility] Other 07-28-2022 12:55-0400 Body temperature 98.5 [degF] Ayaka Joyner Other [facility] Other 07-28-2022 12:55-0400 Body weight 65.59 kg Ayaka Joyner Other [facility] Other 07-28-2022 12:55-0400 Respiratory rate 18 /min Ayaka Joyner Other [facility] Other 07-28-2022 12:55-0400 SaO2% (BldA) [Mass fraction] 99 % Ayaka Joyner Other [facility] Other 09-14-2021 19:10-0500 Body height 170.18 cm Manuela Aly Other [facility] Other 09-14-2021 19:10-0500 Body mass index (BMI) [Ratio] 21.92 kg/m2 Manuela Aly Other [facility] Other 09-14-2021 19:10-0500 Body temperature 97.7 [degF] Manuela Sheeba Other [facility] Other 09-14-2021 19:10-0500 Body weight 63.5 kg Manuela Sheeba Other [facility] Other 09-14-2021 19:10-0500 Respiratory rate 18 /min Manuela Sheeba Other [facility] Other 09-14-2021 19:10-0500 SaO2% (BldA) [Mass fraction] 99 % Manuela Sheeba Other [facility] Other 07-29-2021 12:25-0400 Body height 170.18 cm Manuela Sheeba Other [facility] Other 07-29-2021 12:25-0400 Body mass index (BMI) [Ratio] 21.92 kg/m2 Manuela Sheeba Other [facility] Other 07-29-2021 12:25-0400 Body temperature 97.8 [degF] Manuela Sheeba Other [facility] Other 07-29-2021 12:25-0400 Body weight 63.5 kg Manuela Sheeba Other [facility] Other 07-29-2021 12:25-0400 Diastolic blood pressure 80 mm[Hg] Manuela Sheeba Other [facility] Other 07-29-2021 12:25-0400 Respiratory rate 18 /min Manuela Sheeba Other [facility] Other 07-29-2021 12:25-0400 SaO2% (BldA) [Mass fraction] 99 % Manuela Aly Other [facility] Other 07-29-2021 12:25-0400 Systolic blood pressure 145 mm[Hg] Manuela Aly Other [facility] Other Encounters Encounter Date Encounter Type Care Provider Facility Start: 06-07-2025 Non-patient / Non-visit Johan diallo MD -[facility] Work Phone: Start: 06-06-2025 End: 06-06-2025 ambulatory Leighton Wu Facility:[facility] Start: 06-06-2025 Non-patient / Non-visit Ammon carreno MD -[facility] Work Phone: Start: 06-03-2025 End: 06-03-2025 ambulatory Ammon Lucas MD Work Phone: [facility] Work Phone: Start: 06-03-2025 End: 06-03-2025 Patient encounter procedure Ammon Lucas MD -[facility] Work Phone: Start: 06-02-2025 End: 06-02-2025 Bamboo flowsheet Dania Steven DO Work Phone: [facility] Start: 06-02-2025 End: 06-02-2025 Bamboo flowsheet Dania Steven DO Work Phone: [facility] Start: 06-02-2025 End: 06-02-2025 ambulatory DANIA STEVEN Not Available Start: 06-02-2025 End: 06-02-2025 Office outpatient visit 15 minutes Dnaia Steven DO Work Phone: [facility] Comment on above: Pulmonary nodule (Pr imary Dx) Start: 05-04-2025 End: 05-04-2025 Patient encounter procedure Orquidea Saavedra MD Work Phone: Orthopaedics Comment on above: Primary osteoarthrit is of right knee (Primary Dx) Start: 05-04-2025 Non-patient / Non-visit Outside [facility] Work Phone: Start: 05-04-2025 End: 05-04-2025 ambulatory YUERONG MICHELLE Facility:[facility] Start: 04-25-2025 End: 04-25-2025 ambulatory [facility] Start: 03-31-2025 End: 03-31-2025 ambulatory [facility]INA [facility] [place] [facility] Start: 03-31-2025 End: 03-31-2025 Subsequent hospital visit by physician Angelina Lantigua [facility] Comment on above: Arrived Start: 03-28-2025 End: 03-28-2025 ambulatory [place]INA [place] [facility] Start: 03-28-2025 End: 03-28-2025 Subsequent hospital [facility] Comment on above: Arrived Start: 03-21-2025 End: 03-21-2025 ambulatory [place]INA [place] [facility] Start: 03-21-2025 End: 03-21-2025 Subsequent hospital visit by physician [facility] Comment on above: Arrived Start: 03-16-2025 End: 03-16-2025 ambulatory [place]USTINA [place] [facility] Start: 03-16-2025 End: 03-16-2025 Subsequent hospital visit by physician [facility] Comment on above: Arrived Start: 03-14-2025 End: 03-14-2025 ambulatory [place]USTINA [place] [facility] Start: 03-14-2025 End: 03-14-2025 Subsequent hospital visit by physician [facility] Comment on above: Arrived Start: 03-11-2025 End: 03-11-2025 ambulatory [facility] Start: 03-11-2025 End: 03-11-2025 Subsequent hospital visit by physician Giovanna Wu [facility] Comment on above: Arrived Start: 03-09-2025 End: 03-09-2025 ambulatory [facility] Start: 03-09-2025 End: 03-09-2025 Subsequent hospital visit by physician Giovanna Wu [facility] Comment on above: Arrived Start: 03-08-2025 End: 03-08-2025 Patient encounter procedure Augustina Vargas MD Work Phone: Gynecology Comment on above: High-tone pelvic stevan or dysfunction (Primary Dx); Trigger point of abdomen; Myalgia, other site Start: 03-08-2025 End: 03-08-2025 ambulatory AUGUSTINA VARGAS Facility:[facility] Start: 03-02-2025 End: 03-02-2025 ambulatory [facility] Start: 03-02-2025 End: 03-02-2025 Subsequent hospital visit by physician Garrison العراقي [facility] Comment on above: Arrived Start: 03-01-2025 End: 03-01-2025 ambulatory [facility] Start: 03-01-2025 End: 03-01-2025 Subsequent hospital visit by physician Garrison العراقي [facility] Comment on above: Arrived Start: 02-25-2025 End: 02-25-2025 ambulatory [facility] Start: 02-25-2025 End: 02-25-2025 Subsequent hospital visit by physician Trudy Garner [facility] Comment on above: Arrived Start: 02-21-2025 End: 02-21-2025 ambulatory [facility] Start: 02-21-2025 End: 02-21-2025 Subsequent hospital visit by physician 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 [facility] Comment on above: Arrived Start: 02-17-2025 End: 02-17-2025 ambulatory [facility] Start: 02-17-2025 End: 02-17-2025 Subsequent hospital visit by physician Al Singh PT [facility] Physical Therapy Comment on above: Arrived Start: 02-14-2025 End: 03-24-2025 Telephone encounter Sachi Michelle YOON Work Phone: Rheumatology Start: 02-10-2025 End: 02-11-2025 Telephone encounter Augustina Vargas MD Work Phone: Gynecology Comment on above: Insurance Authorizat ion Start: 02-08-2025 End: 02-08-2025 Office outpatient visit 40 minutes Gi Siddiqi MD Work Phone: Rheumatology Comment on above: Osteoporosis, post-m enopausal (Primary Dx); Coronary artery disease involving [place] coronary artery of [place] heart without angina pectoris; Family history of cardiovascular disease; History of fracture of pelvis; Family history of osteoporosis in mother; Early menopause occurring in patient age younger than 45 years; Vitamin D deficiency; Encounter to discuss test results; Encounter for medication review and counseling; Counseling on health promotion and disease prevention Start: 02-08-2025 End: 02-08-2025 ambulatory GI SIDDIQI Facility:[facility] Start: 02-07-2025 End: 02-07-2025 ambulatory AUGUSTINA Von [facility]ARGAS [facility] Start: 02-07-2025 End: 02-07-2025 Subsequent hospital visit by physician 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 PTA [facility] Physical Therapy Comment on above: Arrived Start: 02-07-2025 End: 02-07-2025 ambulatory GI SIDDIQI Facility:[facility] Start: 02-02-2025 End: 02-02-2025 Patient encounter procedure Roxy Medina RT(R) Radiology Comment on above: Primary osteoarthrit is of right knee; Derangement of unsp meniscus due to old tear/inj, right knee Start: 02-02-2025 End: 02-02-2025 ambulatory Roxy Medina RT(R) Radiology Comment on above: Radio Gen RMP Start: 01-31-2025 End: 01-31-2025 ambulatory [facility]UGUSTINA VARGAS [facility] Start: 01-31-2025 End: 01-31-2025 Subsequent hospital visit by physician Rosemary CHAVARRIA Physical Therapy Comment on above: Arrived Start: 01-24-2025 End: 01-24-2025 ambulatory [facility] Start: 01-24-2025 End: 01-24-2025 Subsequent hospital visit by physician Rosemary CHAVARRIA Physical Therapy Comment on above: Arrived Start: 01-17-2025 End: 01-17-2025 ambulatory [facility] Start: 01-17-2025 End: 01-17-2025 Subsequent hospital visit by physician Rosemary CHAVARRIA Physical Therapy Comment on above: Arrived Start: 01-12-2025 End: 01-12-2025 ambulatory [facility] Start: 01-12-2025 End: 01-12-2025 Subsequent hospital visit by physician Rosemary CHAVARRIA Physical Therapy Comment on above: Arrived Start: 01-03-2025 End: 01-03-2025 ambulatory [facility] Start: 01-03-2025 End: 01-03-2025 Subsequent hospital visit by physician Rosemary CHAVARRIA Physical Therapy Comment on above: Arrived Start: 12-20-2024 End: 12-20-2024 ambulatory [facility] Start: 12-20-2024 End: 12-20-2024 Subsequent hospital visit by physician Rosemary CHAVARRIA Physical Therapy Comment on above: Arrived Start: 12-13-2024 End: 12-13-2024 ambulatory [facility] Start: 12-13-2024 End: 12-13-2024 Subsequent hospital visit by physician Rosemary CHAVARRIA Physical Therapy Comment on above: Arrived Start: 12-08-2024 End: 12-08-2024 ambulatory AUGUSTINA VARGAS Facility:[facility] Start: 12-08-2024 End: 12-08-2024 Patient encounter procedure [...] Clinisync Result Encounter Keri LIN Work Phone: [facility] External Department Unsolicited Start: 12-06-2024 End: 12-06-2024 [facility] Start: 12-06-2024 End: 12-06-2024 Subsequent hospital visit by physician Rosemary CHAVARRIA Physical Therapy Comment on above: Arrived Start: 12-06-2024 End: 12-06-2024 Patient encounter procedure Keri LIN Work Phone: [facility] Healthcare Work Phone: Start: 12-06-2024 End: 12-06-2024 Periodic preventive med est patient 65yrs& older Keri LIN Work Phone: [facility] BCP OB Comment on above: Well woman exam with routine gynecological exam; Breast cancer screening by mammogram; Postmenopausal state Start: 12-06-2024 End: 12-06-2024 ambulatory KERI TOPETE Not Available Start: 11-29-2024 End: 11-29-2024 ambulatory [facility] Start: 11-29-2024 End: 11-29-2024 Subsequent hospital visit by physician Rosemary CHAVARRIA Physical Therapy Comment on above: Arrived Start: 11-22-2024 End: 11-22-2024 ambulatory [facility] Start: 11-22-2024 End: 11-22-2024 Subsequent hospital visit by physician Rosemary CHAVARRIA Physical Therapy Comment on above: Arrived Start: 11-17-2024 End: 11-17-2024 E-mail encounter from caregiver Jagruti Salazar TIM Work Phone: [facility] Start: 11-17-2024 End: 11-17-2024 Follow-up encounter Jagruti Salazar TIM Work Phone: [facility] Comment on above: actionable finding f ollow up Start: 11-16-2024 End: 11-16-2024 ambulatory [facility] Start: 11-16-2024 End: 11-16-2024 Subsequent hospital visit by physician Yelena Steve PT [facility] Physical Therapy Comment on above: Arrived Start: 11-01-2024 End: 11-01-2024 Telephone encounter Augustina Vargas MD Work Phone: [facility] Comment on above: Orders (PFPT) Start: 09-22-2024 ambulatory [facility] Start: 09-21-2024 End: 09-21-2024 Telephone encounter Augustina Vargas MD Work Phone: [facility] Comment on above: Other; Patient Updat e Start: 09-15-2024 ambulatory [facility] Start: 09-01-2024 End: 09-01-2024 ambulatory [facility] Start: 09-01-2024 End: 09-01-2024 Subsequent hospital visit by physician Rosemary CHAVARRIA Physical Therapy Comment on above: Arrived Start: 08-23-2024 End: 08-23-2024 Telephone encounter Augustina Vargas MD Work Phone: [facility] Comment on above: Medication Problem Start: 08-23-2024 End: 08-23-2024 [facility] Start: 08-23-2024 End: 08-23-2024 [...] Start: 08-09-2024 End: 08-09-2024 ambulatory [facility] Start: 08-02-2024 End: 08-02-2024 ambulatory [facility] Start: 08-02-2024 End: 08-02-2024 Subsequent hospital visit by physician Rosemary CHAVARRIA Physical Therapy Comment on above: Arrived Start: 07-26-2024 End: 07-26-2024 Office outpatient visit 10 minutes Sarah Godwin MD Work Phone: [facility] Comment on above: Chronic sialoadeniti s (Primary Dx) Start: 07-26-2024 End: 07-26-2024 ambulatory SARAH GODWIN [facility] Start: 07-12-2024 End: 07-12-2024 ambulatory [facility] Start: 07-07-2024 End: 07-07-2024 ambulatory [facility] Start: 07-06-2024 End: 07-06-2024 ambulatory AUGUSTINA CHAMBERLAINVANESA Facility:[facility] Start: 07-06-2024 End: 07-06-2024 Patient encounter procedure Augustina Vargas MD Work Phone: Gynecology Comment on above: High-tone pelvic stevan or dysfunction (Primary Dx); Nutcracker phenomenon of renal vein; Vaginal dryness; Pelvic congestion; Acute constipation; Postmenopausal atrophic vaginitis; Urethral caruncle; Myalgia Start: 07-02-2024 End: 07-02-2024 Refill Tracy Gonzalez RN [facility] Comment on above: Med Refill Start: 06-28-2024 End: 06-28-2024 ambulatory [address] [facility] Start: 06-21-2024 End: 06-21-2024 amb[address] [facility] Start: 06-21-2024 End: 06-21-2024 Subsequent hospital visit by physician 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 PTA [facility] Physical Therapy Comment on above: Arrived Start: 06-15-2024 End: 06-15-2024 ambulatory [facility] Start: 06-15-2024 End: 06-15-2024 Subsequent hospital visit by physician Yelena Steve PT [facility] Physical Therapy Comment on above: Arrived Start: 06-06-2024 End: 06-07-2024 Telephone encounter Augustina Vargas MD Work Phone: Gynecology Comment on above: botox auth Start: 06-04-2024 End: 06-07-2024 Telephone encounter Augustina Vargas MD Work Phone: [facility] Comment on above: Patient Question Start: 06-03-2024 [...] in female Start: 05-10-2024 End: 05-10-2024 ambulatory [facility] Start: 04-26-2024 ambulatory AMMON LUCAS Facility :[facility] Start: 04-26-2024 End: 04-26-2024 Subsequent hospital visit by physician [facility] Radiology Comment on above: Other disorders of [...] Urology Start: 02-19-2024 End: 02-19-2024 Admission to [facility] Main [facility] Work Phone: Pre Anesthesia Start: 02-19-2024 End: 02-19-2024 Anesthesia consultation [facility] Main 9 Work Phone: Pre Anesthesia Comment on above: Preop examination (P rimary Dx); 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); Chuloonawick's syndrome; Other hyperlipidemia; Ovarian varices; Nutcracker phenomenon of renal vein; Narcotic drug use Start: 02-19-2024 End: 02-19-2024 Preprocedural examination done [facility] Main 9 Work Phone: [facility] Work Phone: Start: 02-17-2024 ambulatory AMMON Peres [facility] Start: 02-10-2024 End: 02-10-2024 Patient encounter procedure Sarah Godwin MD Work Phone: [facility] Comment on above: Chronic sialoadeniti s (Primary Dx) Start: 02-10-2024 End: 02-10-2024 ambulatory SARAH GODWIN [facility] Start: 01-13-2024 Telephone encounter Rina eagle [...] status Lisa Fox MD Work Phone: [facility] Start: 12-18-2023 End: 12-18-2023 Office outpatient [...] Dx) Start: 12-11-2023 Telephone encounter No Pcp RETAIL SUPPORT SPECIALIST [facility] Surg Dept Comment on above: Patient Question Start: 12-02-2023 End: 12-02-2023 Patient encounter procedure Matthew Ramirez PA-C Work Phone: [facility] Comment on above: Submandibular gland swelling (Primary Dx); Chronic sialoadenitis Start: 12-02-2023 End: 12-02-2023 ambulatory MATTHEW RAMIREZ [facility] Start: 11-24-2023 End: 11-24-2023 Evaluation and management of inpatient YEN HALINA [facility] Start: 11-24-2023 End: 11-24-2023 Evaluation and management of inpatient SARAH GODWIN [facility] Start: 11-20-2023 Telephone encounter Sarah Godwin MD Work Phone: [facility] Start: 11-12-2023 End: 11-12-2023 ambulatory SARAH GODWIN [facility] Start: 11-12-2023 Encounter for other preprocedural examination SARAH GODWIN [facility] Start: 11-12-2023 End: 11-12-2023 Patient encounter procedure [facility] 1 Sveta Stephens [facility] Comment on above: Preop testing (Prima ry Dx); Hearing disorder retrocochlear Start: 11-12-2023 End: 11-12-2023 Patient encounter status [facility] Start: 10-08-2023 End: 10-08-2023 ambulatory Ammon Lucas Other [facility] Other Start: 10-08-2023 Telephone encounter Ammon Lucas [facility] Start: 09-30-2023 End: 09-30-2023 Patient encounter procedure Sarah Godwin MD Work Phone: [facility] Comment on above: Submandibular gland swelling (Primary Dx); Chronic sialoadenitis; Sensorineural hearing loss (SNHL), bilateral Start: 09-30-2023 End: 09-30-2023 ambulatory SARAH GODWIN [facility] Start: 09-01-2023 End: 09-01-2023 ambulatory Ammon Lucas Other [facility] Other Start: 09-01-2023 Office outpatient vi sit 15 minutes Ammon Lucas [facility] Start: 08-22-2023 Telephone encounter No Pcp RETAIL SUPPORT SPECIALIST [facility] Comment on above: Appointment Start: 07-29-2023 End: 07-29-2023 ambulatory Ammon Lucas Other [facility] Other Start: 07-29-2023 Office outpatient vi sit 15 minutes Ammon Lucas [facility] Start: 07-02-2023 End: 07-02-2023 ambulatory Ammon Lucas Other [employer] Other Start: 07-02-2023 Office outpatient vi sit 15 minutes Ammon Dylon [facility] Start: 06-10-2023 End: 06-10-2023 ambulatory Ammon Lucas Other [facility] Other Start: 06-10-2023 Telephone encounter Ammon Lucas [facility] Start: 06-06-2023 End: 06-06-2023 ambulatory Ammon Dylon Other [employer] Other Start: 06-06-2023 Office outpatient vi sit 15 minutes Ammon Dylon [facility] Start: 06-05-2023 End: 06-05-2023 ambulatory Ammon Dylon Other [employer] Other Start: 06-05-2023 Telephone encounter Ammon Dylon [facility] Start: 05-30-2023 End: 05-30-2023 ambulatory Ammon Dylon Other [facility] Other Start: 05-30-2023 Telephone encounter Ammon Lucas [facility] Start: 05-29-2023 End: 05-29-2023 ambulatory Ayaka Joyner Other [facility] Other Start: 05-29-2023 Office outpatient vi sit 25 minutes Ayaka Joyner [facility] Start: 05-09-2023 End: 05-09-2023 ambulatory Ammon Dylon Other [facility] Other Start: 05-09-2023 Telephone encounter Ammon Lucas [facility] Start: 02-22-2023 End: 02-22-2023 ambulatory NAVEEN KAHN Facility:[facility] Start: 02-18-2023 End: 02-18-[address] BOSSMAN CEVALLOS . Facility:[facility] Start: 02-11-2023 End: 02-11-2023 ambulatory Ayaka Joyner Other [facility] Other Start: 02-11-2023 Office outpatient vi sit 15 minutes Ayaka Joyner [facility] Start: 02-11-2023 Telephone encounter Ammon Lucas [facility] Start: 11-25-2022 End: 11-25-[address] BOSSMAN CEVALLOS . Facility:[facility] Start: 11-22-2022 End: 11-22-2022 ambulatory Ayaka Joyner Other [facility] Other Start: 11-22-2022 Office outpatient vi sit 25 minutes Ayaka Joyner [facility] Start: 11-02-2022 End: 11-02-2022 ambulatory Ammon Lucas Other [facility] Other Start: 11-02-2022 Telephone encounter Ammon Lucas [facility] Start: 11-01-2022 End: 11-02-2022 ambulatory NONE LISTED REQUEST Facility:[facility] Start: 10-31-2022 End: 10-31-2022 ambulatory Ammon Lucas Other [facility] Other Start: 10-31-2022 Office outpatient vi sit 15 minutes Ammon Lucas [facility] Start: 08-14-2022 Gynecological examin ation normal Ammon Lucas Other [facility] Other Start: 08-14-2022 Pre-procedure evalua tion check Ammon Lucas Other [facility] Other Start: 08-13-2022 End: 08-14-2022 ambulatory Boogie Mina Facility:[facility] Start: 07-28-2022 End: 07-28-2022 ambulatory Ayaka Joyner Other [facility] Other Start: 07-28-2022 Office outpatient vi sit 25 minutes Ayaka Joyner [facility] Start: 09-14-2021 End: 09-14-2021 ambulatory Manuela Aly Other [facility] Other Start: 09-14-2021 Office outpatient vi sit 15 minutes Manuela Aly [facility] Start: 07-29-2021 Office outpatient vi sit 15 minutes Manuela Aly [facility] Start: 05-21-2018 End: 05-21-2018 Patient encounter Joel Monroe Facility:[facility] Start: 05-19-2018 End: 05-20-2018 Patient encounter Joel Monroe Facility:[facility] Procedures Date Procedure Procedure Detail Performing Clinician [...] 12 lds trcg only w/o i&r Ibis Rodriugez MD Work Phone: Start: 09-29-2023 Mammography Dania Steven DO Work Phone: Start: 08-10-2018 General examination of patient Ammon Lucas Other Start: 07-23-2018 Colonoscopy Sarah Godwin MD Work Phone: History of renal transplant Encounter for aftercare following kidney transplant Viet Carr MD Work Phone: History of renal transplant S/P renal autotransplant Ammon Lucas MD Work Phone: Screening for malign ant neoplasm of breast Ammon Dylon Other Viral screening Ammon Lucas Other Plan of Treatment Date Care Activity Detail Author Start: 2032 Respiratory Syncytial Virus (RSV) or age 60 yrs+ (1 - 1-dose 75+ series) Respiratory Syncytial Virus (RSV) or age 60 yrs+ (1 - 1-dose 75+ series) [facility] Start: 07-23-2028 Screening for malignant neoplasm of colon [facility] [employer] Start: 03-04-2027 Diabetes Screening Diabetes Screening [facility] Start: 02-18-2027 Diabetes Screening Diabetes Screening [facility] Start: 02-02-2027 Screening for osteoporosis Bone Density Screening [facility] Start: 06-24-2026 Diabetes Screening Diabetes Screening [facility] Start: 06-01-2026 End: 06-01-2026 Patient encounter procedure 06/01/2026 8:45 AM EDT Office Visit [facility] [address] [place] [id number] Dania Steven, DO [address] [place] [address] [facility] Start: 04-25-2026 Screening for malignant neoplasm of lung Lung Cancer Screening [facility] Start: 04-12-2026 End: 09-02-2026 CT Chest WO contrast CT chest wo IV contrast Imaging Routine Pulmonary nodule Expected: 04/12/2026, Expires: 09/02/2026 [facility] [employer] Work Phone: Comment on above: Expected: 04/12/2026, Expires: Start: 12-08-2025 End: 12-08-2025 Patient encounter procedure [facility] Start: 09-30-2025 Screening for malignant neoplasm of breast Mammogram [facility] Start: 08-02-2025 End: 08-02-2025 Patient encounter procedure Rheumatology Comment on above: Follow up Osteoporosis 1st attempt : LVM te mplate change -AV Follow up Osteoporosis Start: 07-26-2025 Adult BMI Screening Adult BMI Screening [facility] Start: 07-26-2025 Tobacco Screening Tobacco Screening [facility] Start: 07-26-2025 End: 07-26-2025 Patient encounter procedure 07/26/2025 10:15 AM EDT Office Visit [facility] [address] [place] [phone] Sarah Godwin MD [address] [facility] [address] [place] [id number] [facility] Start: 07-13-2025 End: 07-13-2025 Patient encounter procedure 07/13/2025 8:30 AM EDT Office Visit Cardiology [address] [place], [place] [id number] Nigel Bowens MD [address] [place], [place] [id number] Coronary artery disease involving [place] coronary artery of [place] heart without... Cardiology Comment on above: Coronary artery disease involving [place] coronary artery of [place] heart without... Start: 07-04-2025 End: 07-04-2025 Patient encounter procedure 07/04/2025 10:30 AM EDT Office Visit [facility]VENTION [facility] [address] [place], [place] [phone] Sveta Strong MD [address] [place] [address] lvm and mc appt rs from 06/07/25 [facility] Comment on above: lvm and mc appt rs from 06/07/25 Start: 06-13-2025 Influenza vaccination [facility] Start: 06-07-2025 End: 06-07-2025 Patient encounter procedure 06/07/2025 10:00 AM EDT Office Visit [facility] INTER[facility]ION [facility] [address] [place], [place] [phone] Sveta Strong MD [address] [place] [address] Coronary artery disease involving [place] coronary artery of [place] heart without... [facility] Comment on above: Coronary artery disease involving [place] coronary artery of [place] heart without... Start: 06-02-2025 End: 06-02-2025 Patient encounter procedure 06/02/2025 8:45 AM EDT Office Visit [facility] [address] [place] [address] Dania Steven DO [address] [facility] [place] [address] [facility] Start: 05-13-2025 Influenza vaccination Flu vaccine (Season Ended) [facility] Start: 05-10-2025 End: 08-09-2025 25-hydroxyvitamin D3 [Mass/volume] in Serum or Plasma VITAMIN D 25 HYDROXY Lab Routine Vitamin D deficiency Expected: 05/10/2025, Expires: 08/09/2025 [facility] Work Phone: Comment on above: Expected: 05/10/2025, Expires: Start: 05-10-2025 End: 08-09-2025 Cobalamin (Vitamin B12) [Mass/volume] in Serum or Plasma VITAMIN B12 Lab Routine Vitamin B12 deficiency Expected: 05/10/2025, Expires: 08/09/2025 [facility] Work Phone: Comment on above: Expected: 05/10/2025, Expires: Start: 05-10-2025 End: 08-09-2025 Homocysteine [Moles/volume] in Serum or Plasma HOMOCYSTEINE Lab Routine Vitamin B12 deficiency Heart disease, unspecified Expected: 05/10/2025, Expires: 08/09/2025 [facility] Comment on above: Expected: 05/10/2025, Expires: Start: 05-10-2025 Screening for malignant neoplasm of lung Lung Cancer Screening [facility] Start: 05-04-2025 End: 05-04-2025 Patient encounter procedure 05/04/2025 1:45 PM EDT Office Visit Orthopaedics [address] [place] [address] Orquidea Saavedra MD [address] [place] [address] 3 month f/u Orthopaedics Comment on above: 3 month f/u Start: 05-04-2025 End: 05-04-2025 ambulatory 05/04/2025 1:15 PM EDT Results Only [facility] [address] [place] [address] Vitamin B12 deficiency [E53.8] [facility] Comment on above: Vitamin B12 deficiency [E53.8] Start: 05-02-2025 End: 06-03-2025 CT Chest WO contrast CT chest wo IV contrast Imaging Routine Pulmonary nodule Expected: 05/02/2025, Expires: 06/03/2025 [facility] Work Phone: Comment on above: Expected: 05/02/2025, Expires: Start: 03-31-2025 End: 03-31-2025 Patient encounter procedure 03/31/2025 8:30 AM EDT Appointment [facility] Physical Therapy [address] [place] [phone] Al Singh PT [facility] Physical Therapy Comment on above: [facility] Start: 03-28-2025 End: 03-28-2025 Patient encounter procedure 03/28/2025 9:15 AM EDT Appointment [facility] Physical Therapy [address] [place] [address] [phone] Cedrick Perera [facility] Physical Therapy Start: 03-21-2025 End: 03-21-2025 Patient encounter procedure 03/21/2025 8:30 AM EDT Appointment [facility] Physical Therapy [address] [place] [phone] Cedrick Perera [facility] Physical Therapy Start: 03-16-2025 End: 03-16-2025 Patient encounter procedure 03/16/2025 9:15 AM EDT Appointment [facility] Physical Therapy [address] [place] [phone] Cedrick Perera [facility] Physical Therapy Start: 03-14-2025 End: 03-14-2025 Patient encounter procedure 03/14/2025 9:15 AM EDT Appointment [facility] Physical Therapy [address] [place] [phone] Cedrick Perera [facility] Physical Therapy Start: 03-11-2025 End: 03-11-2025 Patient encounter procedure 03/11/2025 8:00 AM EDT Appointment [facility] Physical Therapy [address] [place] [phone] Giovanna Wu PTA [facility] Physical Therapy Start: 03-09-2025 End: 03-09-2025 Patient encounter procedure 03/09/2025 2:30 PM EDT Appointment [facility] Physical Therapy [address] [place] [phone] Giovanna Wu PTA [facility] Physical Therapy Start: 03-08-2025 End: 03-08-2025 Patient encounter procedure 03/08/2025 3:30 PM EDT Office Visit Gynecology [address] [place] [address] Augustina Vargas MD [address] [place] [address] [facility] Comment on above: [facility] Start: 03-02-2025 End: 03-02-2025 Patient encounter procedure 03/02/2025 3:15 PM EDT Appointment [facility] Physical Therapy [address] [place] [phone] Garrison العراقي PTA [facility] Physical Therapy Start: 03-01-2025 End: 03-01-2025 Patient encounter procedure 03/01/2025 8:30 AM EDT Appointment [facility] Physical Therapy [address] [place] [phone] Garrison العراقي PTA [facility] Physical Therapy Start: 02-25-2025 End: 02-25-2025 Patient encounter procedure 02/25/2025 12:15 PM EDT Appointment [facility] Physical Therapy [address] [place] [phone] Giovanna Wu PTA [facility] Physical Therapy Start: 02-21-2025 End: 02-21-2025 Patient encounter procedure 02/21/2025 10:30 AM EDT Appointment [facility] Physical Therapy [address] [place] [phone] 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 PTA [facility] Physical Therapy Start: 02-17-2025 End: 02-17-2025 Patient encounter procedure 02/17/2025 9:45 AM EDT Appointment [facility] Physical Therapy [address] [place] [phone] Al Singh, PT MEDICARE [facility] Comment on above: MEDICARE Start: 02-12-2025 Tobacco Screening Tobacco Screening [facility] Start: 02-09-2025 Adult BMI Screening Adult BMI Screening [facility] Start: 02-09-2025 Tobacco Screening Tobacco Screening [facility] Start: 02-08-2025 End: 02-08-2025 Patient encounter procedure 02/08/2025 11:20 AM EDT Office Visit Rheumatology [address] [place] [address] Gi Siddiqi MD [address] [place] [address] Return for After results for review of DXA and lab results and discussing rx. Rheumatology Comment on above: Return for After results for review of D XA and lab results and discussing rx. Start: 02-07-2025 End: 02-07-2025 Patient encounter procedure 02/07/2025 11:15 AM EDT [facility] [address] [place] [phone] 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 PTA [facility] Start: 02-07-2025 End: 02-07-2025 ambulatory 02/07/2025 7:15 AM EDT Results Only [place] COUNT INCLUDES THE [facility] Laboratory [address] [place] [address] lab Banner COUNT INCLUDES THE [facility] Comment on above: lab Start: 01-31-2025 End: 01-31-2025 Patient encounter procedure 01/31/2025 9:45 AM EDT Appointment [facility] [address] [place] [phone] 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 PTA HAVE YELENA IN FOR 15 MINUTE UPOC [facility] Comment on above: HAVE YELENA IN FOR 15 MINUTE UPOC Start: 01-24-2025 End: 01-24-2025 Patient encounter procedure 01/24/2025 9:00 AM EDT Appointment [facility] [address] [place] [phone] 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 PTA [facility] Start: 01-17-2025 End: 01-17-2025 Patient encounter procedure 01/17/2025 9:00 AM EDT [facility] [address] [place] [phone] 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 PTA [facility] Start: 01-15-2025 Screening for malignant neoplasm of lung Lung Cancer Screening [facility] Start: 01-12-2025 End: 01-12-2025 Patient encounter procedure 01/12/2025 11:15 AM EDT Appointment [facility] [address] [place] [phone] 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 PTA [facility] Start: 01-10-2025 End: 01-10-2025 Patient encounter procedure 01/10/2025 9:00 AM EDT Appointment [facility] [address] [place] [phone] 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 PTA [facility] Start: 01-03-2025 End: 01-03-2025 Patient encounter procedure 01/03/2025 9:45 AM EDT Appointment [facility] [address] [place] [phone] 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 [facility] Start: 12-20-2024 End: 12-20-2024 Patient encounter procedure 12/20/2024 9:45 AM EDT Appointment [facility] [address] [place] [phone] 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 [facility] Start: 12-13-2024 End: 12-13-2024 Patient encounter procedure 12/13/2024 9:45 AM EST Appointment [facility] Therapy [address] [place] [phone] 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 PTA [facility] Start: 12-08-2024 End: 12-08-2024 Patient encounter procedure 12/08/2024 4:00 PM EST Office Visit Gynecology [address] [place] [address] Augustina Vargas MD [address] [place] [address] [facility] Comment on above: TPI Start: 12-06-2024 End: 12-06-2025 DXA Skeletal system Views for bone density DEXA bone density Imaging Routine Postmenopausal state Expected: 12/06/2024 (Approximate), Expires: 12/06/2025 [facility] Comment on above: Expected: 12/06/2024 (Approximate), Expi res: 12/06/2025 Start: 12-06-2024 End: 02-03-2026 MG Breast - bilateral Screening Bilateral screening mammogram Imaging Routine Breast cancer screening by mammogram Expected: 12/06/2024, Expires: 02/03/2026 [facility] Work Phone: Comment on above: Expected: 12/06/2024, Expires: Start: 12-06-2024 End: 12-06-2024 Patient encounter procedure [facility] Comment on above: Arrived Start: 12-02-2024 Adult BMI Screening Adult BMI Screening [facility] Start: 12-02-2024 Tobacco Screening Tobacco Screening [facility] Start: 11-29-2024 End: 11-29-2024 Patient encounter procedure 11/29/2024 3:45 PM EST Appointment [facility] Therapy [address] [place] [phone] 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 [facility] Start: 11-22-2024 End: 11-22-2024 Patient encounter procedure 11/22/2024 12:00 PM EST Appointment [facility] Therapy [address] [place] [phone] 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 [facility] Start: 11-12-2024 Adult BMI Screening Adult BMI Screening [facility] Start: 11-12-2024 Tobacco Screening Tobacco Screening [facility] Start: 10-13-2024 Advance Directive Discussion Advance Directive Discussion [facility] Start: 10-05-2024 End: 10-05-2024 Patient encounter procedure 10/05/2024 2:30 PM EST Office Visit Gynecology [address] [place] [address] Augustina Vargas MD [address] [place] [address] put her on my schedule oct 05, 2024 at 2:30pm for botox Gynecology Comment on above: put her on my schedule oct 05, 2024 at 2:30pm for botox Start: 09-30-2024 Adult BMI Screening Adult BMI Screening [facility] Start: 09-30-2024 Tobacco Screening Tobacco Screening [facility] Start: 09-29-2024 Screening for malignant neoplasm of breast Mammogram [facility] Start: 09-15-2024 End: 09-15-2024 Patient encounter procedure 09/15/2024 3:30 PM EST [facility] [address] [place], [place] [phone] 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 PTA [facility] Start: 09-08-2024 End: 09-08-2024 Patient encounter procedure 09/08/2024 3:30 PM EST [facility] [address] [place] [phone] 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 PTA [facility] Start: 09-01-2024 End: 09-01-2024 Patient encounter procedure 09/01/2024 9:00 AM EST [facility] [address] [place] [phone] 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 PTA needs medicare recheck with yelena at this appt [facility] Comment on above: needs medicare recheck with yelena at this appt Start: 08-27-2024 End: 08-27-2024 ambulatory 08/27/2024 10:30 AM EST [facility] [address] [place] [phone] Augustina Vargas MD [address] [place] [address] 3 MO F/U - TVST ok per Dr. Vargas Gynecology Comment on above: 3 MO F/U - TVST ok per Dr. Vargas Start: 08-27-2024 End: 08-27-2024 Patient encounter procedure 08/27/2024 10:30 AM EST Office Visit Gynecology [address] [place] [phone] Augustina aVrgas MD [address] [place] [address] 3 MO F/U - TVST ok per Dr. Vargas Gynecology Comment on above: 3 MO F/U - TVST ok per Dr. Vargas Start: 08-23-2024 End: 08-23-2024 Patient encounter procedure 08/23/2024 1:15 PM EST Appointment [facility] [address] [place], [place] [phone] 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 PTA needs medicare recheck with yelena at next appt [facility] Comment on above: needs medicare recheck with yelena at next appt Start: 08-17-2024 End: 08-17-2024 ambulatory 08/17/2024 5:00 PM EST [facility] [address] [place] [phone] Augustina Vargas MD [address] [place] [address] 6 WEEK FU Gynecology Comment on above: 6 WEEK FU Start: 08-09-2024 End: 08-09-2024 Patient encounter procedure 08/09/2024 10:45 AM EDT Appointment [facility] [address] [place] [phone] 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 PTA [facility] Start: 07-26-2024 End: 07-26-2024 Patient encounter procedure 07/26/2024 10:15 AM EDT Office Visit [facility] [address] [place] [address], [address] [place] [address] Sarah Godwin MD [address] [facility] [address] [place] [address] [facility] Start: 07-20-2024 End: 07-20-2024 Patient encounter procedure 07/20/2024 10:45 AM EDT Office Visit [facility] [address] [place] [address], [address] [place] [address] Sarah Godwin MD [address] [facility] [address] [place] [address] [facility] Start: 07-06-2024 End: 07-06-2024 Patient encounter procedure 07/06/2024 10:30 AM EDT Office Visit Gynecology [address] [place] [address] Augustina Vargas MD [address] [place] [address] B[facility] Gynecology Comment on above: Botox Start: 06-28-2024 End: 06-28-2024 Patient encounter procedure 06/28/2024 1:30 PM EDT [facility] [address] [place] [phone] Rosemary Lyoa PTA [facility] Start: 06-24-2024 Screening for malignant neoplasm of lung Lung Cancer Screening [facility] Start: 06-21-2024 End: 06-21-2024 Patient encounter procedure 06/21/2024 9:30 AM EDT [facility] [address] [place] [address] [phone] 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 PTA [facility] Start: 06-15-2024 Annual Wellness Visit (Medicare) Annual Wellness Visit (Medicare) [facility] Start: 06-13-2024 COVID-19 Vaccine ( season) COVID-19 Vaccine ( season) [facility] Start: 06-13-2024 COVID-19 Vaccine ( season) COVID-19 Vaccine ( season) [facility] Start: 06-13-2024 COVID-19 Vaccine ( season) COVID-19 Vaccine () [facility] Start: 06-13-2024 Covid-19 Vaccine () Covid-19 Vaccine () [facility] Start: 06-13-2024 Influenza vaccination [facility] Start: 05-27-2024 End: 05-27-2024 Patient encounter procedure Gynecology Comment on above: 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 Start: 05-13-2024 Influenza vaccination Flu vaccine (#1) [facility] Start: 05-10-2024 End: 05-10-2024 Patient encounter procedure 05/10/2024 10:00 AM EDT Appointment [facility] [address] [place] [address] [facility] Start: 04-26-2024 End: 04-26-2024 Patient encounter procedure Radiology Comment on above: 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 ORDER SCANNED POST R ENAL AUTOTRANSPLANTATION OTHER DISORDER OF KIDNEY Start: 04-22-2024 End: 04-22-2024 ambulatory 04/22/2024 3:00 PM EDT [facility] [address] [place] [address] Viet Carr MD [address] [place] [address] virtual/per staff message Urology Comment on above: virtual/per staff message Start: 03-02-2024 End: 03-02-2024 Admission to same day surgery center 03/02/2024 7:30 AM EDT - 03/02/2024 5:03 PM EDT Surgery Admitting [address] [place] [address] Viet Carr MD [address] [place] [address] 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 Admitting Comment on above: ROBOTIC SINGLE PORT LAPAROSCOPIC RENAL A UTOTRANSPLANTATION REIMPLANTATION OF KIDNEY Start: 03-02-2024 Subsequent hospital visit by physician 03/02/2024 7:30 AM EDT Hospital Encounter Admitting [address] [place] [address] Viet Carr MD [address] [place] [address] 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] Admitting [...] profile Expected: 02/25/2024 (Approximate), Expires: 05/26/2024 [facility] Comment on above: Expected: 02/25/2024 (Approximate), Expi res: 05/26/2024 Start: 02-25-2024 End: 05-26-2024 CBC W Auto Differential panel - Blood COMPLETE BLOOD COUNT AND DIFFERENTIAL Lab Routine Nutcracker phenomenon of renal vein Expected: 02/25/2024 (Approximate), Expires: 05/26/2024 [facility] Work Phone: Comment on above: Expected: 02/25/2024 (Approximate), Expi res: 05/26/2024 Start: 02-25-2024 End: 05-26-2024 Comprehensive metabolic 2000 panel - Serum or Plasma COMPREHENSIVE METABOLIC PANEL Lab Routine Nutcracker phenomenon of renal vein Expected: 02/25/2024 (Approximate), Expires: 05/26/2024 [facility] Comment on above: Expected: 02/25/2024 (Approximate), Expi res: 05/26/2024 Start: 02-25-2024 End: 05-26-2024 CONFIRM BLOOD TYPE CONFIRM BLOOD TYPE Blood Bank Routine Nutcracker phenomenon of renal vein Expected: 02/25/2024 (Approximate), Expires: 05/26/2024 [facility] Comment on above: Expected: 02/25/2024 (Approximate), Expi res: 05/26/2024 Start: 02-25-2024 End: 12-29-2024 ECG COMPLETE ECG COMPLETE ECG Routine Nutcracker phenomenon of renal vein Expected: 02/25/2024 (Approximate), Expires: 12/29/2024 [facility] Comment on above: Expected: 02/25/2024 (Approximate), Expi res: 12/29/2024 Start: 02-25-2024 End: 05-26-2024 PT panel - Platelet poor plasma by Coagulation assay PROTHROMBIN TIME Lab Routine Nutcracker phenomenon of renal vein Expected: 02/25/2024 (Approximate), Expires: 05/26/2024 [facility] Comment on above: Expected: 02/25/2024 (Approximate), Expi res: 05/26/2024 Start: 02-25-2024 End: 05-26-2024 TYPE AND SCREEN,30 DAY TYPE AND SCREEN,30 DAY Blood Bank Routine Nutcracker phenomenon of renal vein Expected: 02/25/2024 (Approximate), Expires: 05/26/2024 [facility] Comment on above: Expected: 02/25/2024 (Approximate), Expi res: 05/26/2024 Start: 02-19-2024 End: 02-19-2024 ambulatory 02/19/2024 2:30 PM EDT Results Only Cardiology [address] [address] PRE OP ELTEMAMY ~ 03/02 Cardiology Comment on above: PRE OP ELTEMAMY ~ 03/02 Start: 02-19-2024 End: 02-19-2024 Patient encounter procedure Admitting Comment on above: PRE OP ELTEMAMY ~ 03/02 Start: 02-19-2024 End: 02-19-2024 Anesthesia consultation 02/19/2024 1:20 PM EDT PAT Pre Anesthesia [address] [place] [address] 9, Pacc Main [address] [place] [address] PRE OP ELTEMAMY ~ 03/02 Pre Anesthesia Comment on above: PRE OP ELTEMAMY ~ 03/02 Start: 02-10-2024 End: 02-10-2024 Patient encounter procedure 02/10/2024 9:45 AM EDT Office Visit [facility] [address], [address] [place] [phone] Sarah Godwin MD [address] [facility] [address] [place] [address] [facility] Start: 12-19-2023 End: 03-19-2024 Basic metabolic 2000 panel - Serum or Plasma BASIC METABOLIC PNL Lab Routine Nutcracker phenomenon of renal vein Preop testing Expected: 12/19/2023 (Approximate), Expires: 03/19/2024 [facility] Work Phone: Comment on above: Expected: 12/19/2023 (Approximate), Expi res: 03/19/2024 Start: 12-19-2023 End: 03-19-2024 CBC W Auto Differential panel - Blood CBC + DIFF Lab Routine Nutcracker phenomenon of renal vein Preop testing Expected: 12/19/2023 (Approximate), Expires: 03/19/2024 [facility] Work Phone: Comment on above: Expected: 12/19/2023 (Approximate), Expi res: 03/19/2024 Start: 12-19-2023 End: 03-19-2024 CONFIRM BLOOD TYPE CONFIRM BLOOD TYPE Blood Bank Routine Nutcracker phenomenon of renal vein Preop testing Expected: 12/19/2023 (Approximate), Expires: 03/19/2024 [facility] Work Phone: Comment on above: Expected: 12/19/2023 (Approximate), Expi res: 03/19/2024 Start: 12-19-2023 End: 03-19-2024 PT panel - Platelet poor plasma by Coagulation assay PROTHROMBIN TIME/PT Lab Routine Nutcracker phenomenon of renal vein Preop testing Expected: 12/19/2023 (Approximate), Expires: 03/19/2024 [facility] Work Phone: Comment on above: Expected: 12/19/2023 (Approximate), Expi res: 03/19/2024 Start: 12-19-2023 End: 03-19-2024 STAPH AUREUS PCR STAPH AUREUS PCR Lab Routine Nutcracker phenomenon of renal vein Preop testing Expected: 12/19/2023, Expires: 03/19/2024 [facility] Work Phone: Comment on above: Expected: 12/19/2023, Expires: Start: 12-19-2023 End: 03-19-2024 TYPE AND SCREEN,30 DAY TYPE AND SCREEN,30 DAY Blood Bank Routine Nutcracker phenomenon of renal vein Preop testing Expected: 12/19/2023 (Approximate), Expires: 03/19/2024 [facility] Work Phone: Comment on above: Expected: 12/19/2023 (Approximate), Expi res: 03/19/2024 Start: 12-02-2023 End: 12-02-2023 Patient encounter procedure 12/02/2023 12:45 PM EST Office Visit [facility] - [facility] [address] [facility], [address] [place] [id number] Matthew Ramirez PAAries [address] [facility] [address] [place] [address] [facility] Start: 11-24-2023 End: 11-24-2023 Admission to same day surgery center 11/24/2023 12:15 PM EST - 11/24/2023 2:15 PM EST Surgery [facility] - Surgery [address] [place] [phone] Sarah Godwin MD [address] [facility] [address] [place] [address] SIALENDOSCOPY RIGHT SUBMANDIBULAR DUCT [26647 (CPT )] [facility] - Surgery Comment on above: SIALENDOSCOPY RIGHT SUBMANDIBULAR DUCT [ 71640 (CPT )] Start: 11-24-2023 Subsequent hospital visit by physician 11/24/2023 12:15 PM EST Hospital Encounter [facility] Surgery [address] [facility] [place] [phone] Sarah Godwin MD [address] [facility] [address] [place] [address] [facility] Surgery Start: 11-24-2023 End: 11-24-2023 Unlisted px salivary glands/ducts SIALENDOSCOPY Submandibular gland swelling Chronic sialoadenitis 11/24/2023 12:15 PM EST [facility] Start: 10-13-2023 Advance Directive Discussion Advance Directive Discussion [facility] Start: 10-13-2023 Behavioral Health Screening Behavioral Health Screening [facility] Start: 10-13-2023 Depression Assessment Depression Assessment [facility] Start: 06-13-2023 Covid-19 Vaccine ( season) Covid-19 Vaccine ( season) [facility] Start: 06-13-2023 Influenza vaccination [facility] Start: 05-13-2023 Medicare Annual Wellness Visit Medicare Annual Wellness Visit [facility] Start: 2022 Fall Risk Screening Fall Risk Screening [facility] Start: 2022 Pneumococcal 65+ years Vaccine (2 of 2 - PCV) Pneumococcal 65+ years Vaccine (2 of 2 - PCV) [facility] Start: 2022 Pneumococcal Vaccine: 65+ (1 of 1 - PCV) Pneumococcal Vaccine: 65+ (1 of 1 - PCV) [facility] Start: 2022 Pneumococcal Vaccine: 65+ (2 of 2 - PCV) Pneumococcal Vaccine: 65+ (2 of 2 - PCV) [facility] Start: 2022 Pneumococcal Vaccine: 65+ Years (2 of 2 - PCV) Pneumococcal Vaccine: 65+ Years (2 of 2 - PCV) [facility] Start: 2022 Screening for osteoporosis Bone Density Screening [facility] Start: 06-30-2021 Pneumococcal 50+ years Vaccine (2 of 2 - PCV) Pneumococcal 50+ years Vaccine (2 of 2 - PCV) [facility] Start: 06-30-2021 Pneumococcal Vaccine: 50+ (2 of 2 - PCV) Pneumococcal Vaccine: 50+ (2 of 2 - PCV) [facility] Start: 06-30-2021 Pneumococcal Vaccine: 65+ (2 of 2 - PCV) Pneumococcal Vaccine: 65+ (2 of 2 - PCV) [facility] Start: 06-30-2021 Pneumococcal Vaccine: 65+ Years (2 of 2 - PCV) Pneumococcal Vaccine: 65+ Years (2 of 2 - PCV) [facility] Start: 2017 Respiratory Syncytial Virus (RSV) or age 60 yrs+ (1 - 1-dose 60+ series) Respiratory Syncytial Virus (RSV) or age 60 yrs+ (1 - 1-dose 60+ series) [facility] Start: 2017 RSV Vaccine (1 - 1-dose 60+ series) RSV Vaccine (1 - 1-dose 60+ series) [facility] Start: 2017 RSV Vaccine (1 - Risk 60-74 years 1-dose series) RSV Vaccine (1 - Risk 60-74 years 1-dose series) [facility] Start: 2012 Screening for osteoporosis DEXA (modify frequency per FRAX score) [facility] Start: 2007 Shingrix Vaccine (1 of 2) Shingrix Vaccine (1 of 2) [facility] Start: 2002 Lipid panel Lipid Screening [facility] Start: 2002 Screening for malignant neoplasm of colon [facility] Start: 1997 Lipid panel Lipids [facility] Start: 1997 Screening for malignant neoplasm of breast [facility] Start: 1976 DTaP,Tdap and Td Vaccines (1 - Tdap) DTaP,Tdap and Td Vaccines (1 - Tdap) [facility] Start: 1976 DTaP/Tdap/Td vaccine (1 - Tdap) DTaP/Tdap/Td vaccine (1 - Tdap) [facility] Start: 1976 Urine microalbumin profile DTaP,Tdap,Td Vaccine (1 - Tdap) [facility] Start: 1975 Anxiety Screening Anxiety Screening [facility] Start: 1975 Depression Screening Depression Screening [facility] Start: 1975 Hepatitis C screening [facility] Start: 1969 Depression Screen Depression Screen [facility] Start: 1969 Depression Screening Depression Screening [facility] Start: 1968 Screening for malignant neoplasm of cervix Cervical Cancer Screening [facility] Start: [birth year]04-1956 Covid-19 Vaccine (#1) Covid-19 Vaccine (#1) [facility] Start: 1957 Medicare Annual Wellness Visit Medicare Annual Wellness Visit [facility] Start: 1957 Screening for malignant neoplasm of colon [facility] CYSTOSCOPY [facility] CYSTOSCOPY [facility] P rocedures Routine High-tone pelvic floor dysfunction 1 Occurrences starting 08/18/2024 [facility] Work Phone: Comment on above: 1 Occurrences starting 08/18/2024 End: 12-18-2024 ECG COMPLETE ECG COMPLETE ECG Routine Nutcracker phenomenon of renal vein Preop testing 1 Occurrences starting 12/19/2023 until 12/18/2024 [facility] Work Phone: Comment on above: 1 Occurrences starting 12/19/2023 until 12/18/2024 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 TRIGGER POINT INJECTION MULTI 1-2 MUSCLE GR Procedures Routine Myalgia Ordered: 07/06/2024 [facility] Work Phone: Comment on above: Ordered: 07/06/2024 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 TRIGGER POINT INJECTION MULTI 1-2 MUSCLE GR Procedures Routine Trigger point of abdomen Myalgia, other site Ordered: 12/08/2024 [facility] Work Phone: Comment on above: Ordered: [...] exam with routine gynecological exam Ordered: 12/06/2024 [facility] Comment on above: Ordered: 12/06/2024 URINALYSIS, REFLEX MICROSCOPIC URINALYSIS, REFLEX MICROSCOPIC Lab Routine Screening for genitourinary condition Ordered: 05/27/2024 [facility] Work Phone: Comment on above: Ordered: 05/27/2024 End: 12-11-2024 US Renal artery US RENAL ARTERY [facility] Lab Routine Nutcracker phenomenon of renal vein 1 Occurrences starting 12/12/2023 until 12/11/2024 [facility] Work Phone: Comment on above: 1 Occurrences starting 12/12/2023 until 12/11/2024 End: 12-16-2024 US Vein - bilateral US VENOUS INCOMPETENCY [facility] Lab Routine Nutcracker phenomenon of renal vein 1 Occurrences starting 12/17/2023 until 12/16/2024 [facility] Work Phone: Comment on above: 1 Occurrences starting 12/17/2023 until 12/16/2024 End: 12-16-2024 US.doppler Renal vessels - bilateral US RENAL VENOUS [facility] Lab Routine Nutcracker phenomenon of renal vein 1 Occurrences starting 12/17/2023 until 12/16/2024 [facility] Work Phone: Comment on above: 1 Occurrences starting 12/17/2023 until 12/16/2024 [facility] Immunizations Immunization Date Immunization Notes Care Provider Fa cili 07-20-2021 influenza virus vaccine, split virus (incl. 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 purified surface antigen) Ammon Lucas Other [employer] Other 08-11-2019 influenza virus vaccine, unspecified formulation Ammon Lucas MD Work Phone: [facility] 08-11-2019 influenza, injectabl e, quadrivalent, preservative free Dania Briana DO Work Phone: [facility] 08-19-2018 influenza, injectabl e, quadrivalent, preservative free Dania Briana DO Work Phone: [facility] Healthcare Payers Date Payer Category Payer Unknown AARP AARP [id number] 2023-Present [address] [place] [address] [id number] 2023 Managed Care Other (unspecified) [facility] [id number] .[id number] 2023 Unknown [id number] 2.16840.1.213803.19 2022 Medicare [id number]. 1.13.159.2 .7.3.520111.315 2018 Private Health Insurance 1959 Medicare [id number] 2.16.840.1.466203.19 1959 Private Health Insurance [id number] 1959 Self-pay 1957 Unknown [id number] 2.16840.1.036090.3.579.2 .593 1957 Unknown [id number] 2.16.840.1.683623.3.579.2 .593 1957 Unknown [id number] 2.16.840.1.852575.3.579.2 .593 1957 Unknown [id number] 2.16.840.1.674848.3.579.2 .593 1957 Unknown [id number] 2.16840.1.906685.3.579.2 .1286 1957 Unknown [id number] 2.16.840.1.214094.3.579.2 .1286 1957 Unknown [id number] 2.16.840.1.071844.3.579.2 .1286 1957 Unknown [id number] 2.16.840.1.928137.3.579.2 .1286 1957 Unknown [id number] 2.16.840.1.399021.3.579.2 .1286 1957 Unknown [id number] 2.16.840.1.087706.3.579.2 .1286 1957 Unknown [id number] 2.16.840.1.402321.3.579.2 .1286 1957 Unknown [id number] 2.16.840.1.654032.3.579.2 .1286 1957 Unknown [id number] 2.16.840.1.753957.3.579.2 .1286 1957 Unknown [id number] 2.16.840.1.316766.3.579.2 .1286 1957 Unknown [id number] 2.16.840.1.794093.3.579.2 .1286 1957 Unknown [id number] 2.16.840.1.366209.3.579.2 .1259 1957 Unknown [id number] 2.16.840.1.950233.3.579.2 .1259 1957 Unknown [id number] 2.16.840.1.226062.3.579.2 .173 1957 Unknown [id number] 2.16.840.1.083989.3.579.2 .173 1957 Unknown [id number] 2.16.840.1.362361.3.579.2 .173 1957 Unknown [id number] 2.16.840.1.125384.3.579.2 .173 1957 Unknown [id number] 2.16.840.1.138351.3.579.2 .173 1957 Unknown [id number] 2.16.840.1.477024.3.579.2 .173 1957 Unknown [id number] 2.16.840.1.906810.3.579.2 .173 1957 Unknown [id number] 2.16.840.1.186489.3.579.2 .173 1957 Unknown [id number] 2.16.840.1.152078.3.579.2 .173 1957 Unknown [id number] 2.16.840.1.390351.3.579.2 .173 1957 Unknown [id number] 2.16.840.1.628851.3.579.2 .173 1957 Unknown [id number] 2.16.840.1.675058.3.579.2 .173 1957 Unknown [id number] 2.16.840.1.594754.3.579.2 .173 1957 Unknown [id number] 2.16.840.1.947894.3.579.2 .173 1957 Unknown [id number] 2.16.840.1.915152.3.579.2 .173 1957 Unknown [id number] 2.16.840.1.952638.3.579.2 .173 1957 Unknown [id number] 2.16.840.1.170718.3.579.2 .173 1957 Unknown [id number] 2.16.840.1.468532.3.579.2 .173 1957 Unknown [id number] 2.16.840.1.217022.3.579.2 .173 1957 Unknown [id number] 2.16.840.1.332737.3.579.2 .173 1957 Unknown [id number] 2.16.840.1.676304.3.579.2 .173 1957 Unknown [id number] 2.16.840.1.009353.3.579.2 .173 1957 Unknown [id number] 2.16.840.1.332525.3.579.2 .173 1957 Unknown [id number] 2.16.840.1.595245.3.579.2 .173 1957 Unknown [id number] 2.16.840.1.078951.3.579.2 .173 1957 Unknown [id number] 2.16.840.1.841046.3.579.2 .173 1957 Unknown [id number] 2.16.840.1.940006.3.579.2 .173 1957 Unknown [id number] 2.16.840.1.356229.3.579.2 .173 1957 Unknown [id number] 2.16.840.1.494378.3.579.2 .173 1957 Unknown [id number] 2.16.840.1.027161.3.579.2 .173 1957 Unknown [id number] 2.16.840.1.751024.3.579.2 .173 1957 Unknown [id number] 2.16.840.1.491719.3.579.2 .173 1957 Unknown [id number] 2.16.840.1.102613.3.579.2 .173 1957 Unknown [id number] 2.16.840.1.292430.3.579.2 .173 1957 Unknown [id number] 2.16.840.1.855733.3.579.2 .173 1957 Unknown [id number] 2.16.840.1.328111.3.579.2 .173 Medicare [facility] Medicare [employer] PFFS [id number] Unknown [id number] 2.16.840.1.880555.3.579.2 .593 Social History Date Type Detail Facility Start: 11-05-2023 End: 06-03-2024 Sex Assigned At [facility] Tobacco smoking status WAIS Tobacco smoking consumption unknown [facility] Start: 1955 Sex Assigned At Not on file C [facility] Start: 02-24-2020 End: 11-05-2023 Tobacco smoking status NHIS Ex-smoker [facility] Start: 02-07-1970 End: 10-13-2010 History of tobacco use Current smoker [facility] Start: 02-07-1970 End: 10-13-2010 History of tobacco use Cigarette Smoker [facility] Start: 11-05-2023 End: 06-03-2024 Cigarettes smoked current (pack per day) - Reported 1 [facility] Start: 11-05-2023 End: 06-03-2024 Tobacco use and exposure Smokeless tobacco non-user [facility] Start: 11-05-2023 End: 03-08-2025 Alcohol intake Ex-drinker (finding) [facility] National Score (1-100), lower number is lower risk 64 [facility] History of tobacco use Passive smoker [facility] Start: 06-03-2024 End: 06-02-2025 Alcoholic beverage intake Lifetime non-drinker (finding) [facility] Start: 12-02-2023 Alcohol Comment caffeine intak e: 2-3 cups per day [facility] Start: 09-30-2023 End: 07-26-2024 Alcohol intake Current drinker of alcohol (finding) [facility] Start: 07-17-2023 Alcohol Comment 2 per month [facility] Start: 05-18-2015 End: 05-28-2024 Sex Female (finding) [facility] Start: 1955 Sex Assigned At Female F [facility] NEGATED: Highlighted rowStart: NINF History of tobacco use Passive smoker [facility] Medical Equipment Procedure Code Equipment Code Equipment Origin al Text Equipment Identifier Dates Stent Inlay 4.7f r 2 Pigtail Curve Taper Blue Hydrophilic 14cm Ureteral - [id number] Start: 03-02-2024 Clinical Notes 07-29-2021 to 06-03-2025 Note Date & Type Note Facility 06-03-2025 Evaluation note Diagnosis Onset Date Resolution Arteriosclerosis acute May 142024 10:48am Medicare annual wellness visit, subsequent acute June 03, 10:48am [facility] Work Phone: [phone] 505-120008-21-2025 History of Present illness Narrative* Dania Steven, DO - 06/02/2025 8:45 AM EDT [...] 06/12/2023 Chronic rhinitis 03/17/2023 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 Dania Steven DO documented in this encounterNevada [facility] Medical [id number] NoteHNO ID: [id number] Author: ORQUIDEA SAAVEDRA MD Service: ? Author Type: Physician Type: Progress Notes Filed: 05/05/2025 11:26 Note Text: see dictated note Orquidea Saavedra II [facility]07-24-2025 History of Present illness Narrative* Orquidea Saavedra MD - 05/05/2025 11:25 AM EDT see dictated note Orquidea Saavedra II, MD documented in this encounterOhiohealth [facility]-2025 NoteHNO ID: [id number] Author: ORQUIDEA SAAVEDRA MD Service: Orthopaedic Surgery Author Type: Physician Type: Progress Notes Filed: 05/09/2025 10:36 Note Text: [facility] NOTE [facility] NAME: KAREN ZAIDI [facility] NO.: [id number] DATE OF SERVICE: 05/04/2025 ATTENDING PHYSICIAN: Orquidea [...] See back in 3 months. DICTATED BY: Orquidea Saavedra II, M.D. MCK/AQT JOB# [id number] History of Present illness Narrative* Angelina Lantigua, 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 - 03/31/2025 8:45 AM EDT [facility] Outpatient Physical Therapy Daily Note Patient: Karen Zaidi : 1955 CSN #: [id number] Referring Physician: Augustina Vargas MD Date: 03/31/2025 [...] today. Pt reports doing yard work yesterday thenwent swimming at her son's house. Exercises: Exercise [...] Decreased strength, Decreased endurance, Decreased balance, Decreased high- level IADLs, Increased pain Assessment: Progressed patient with [...] 85% of 1RM to improve bone denisty.--MET Aerial Crop Duster Goals Time Frame for Aerial Crop Duster Goals : 6 weeks Aerial C[facility] Duster Goal 1: Patient will be independent and compliant with a HEP and gym exercise program. - MET/continued Penitentiary Goal 2: Patient will improve bilateral LE strength to 5/5 in all major joints and planes. Penitentiary Goal 3: Patient will improve 5 time sit to stand time by at least 1 second to indicate improved muscular power. 10 STS 16 sec (03/11/25) Penitentiary Goal 4: Patient will report 70% improvement in overall strength and endurance. - MET (03/31 patient reports 75% improvements) Minutes Tracking: Time In: 0845 Time Out: 0930 Minutes: 45 Timed Code Treatment Minutes: 42 Minutes Angelina Lantigua PTA Date: 03/31/2025 Cosigned by Al Singh PT at 03/31/2025 11:47 AM EDT documented in this encounterBon [facility] History of Present illness Narrative* ParisCedrick dye Eloina - 03/28/2025 9:15 AM EDT [facility] Outpatient Physical Therapy Daily Note Patient: Karen Zaidi : 1955 CSN #: [id number] Referring Physician: Augustina Vargas MD Date: 03/28/2025 Diagnosis: Osteoporosis, post-menopausal, M81.0, osteoporosis without pathological fx, M81.8, hx ofpelvic fx Z87.81 Treatment Diagnosis: Osteoporosis, R knee [...] 85% of 1RM to improve bone denisty.--MET Penitentiary Goals Time Frame for Aerial Crop Duster Goals : 6 weeks Penitentiary Goal 1: Patient will be independent and compliant with a HEP and gym exercise program. - MET/continued Penitentiary Goal 2: Patient will improve bilateral LE strength to 5/5 in all major joints and planes. Penitentiary Goal 3: Patient will improve 5 time sit to stand time by at least 1 second to indicate improved muscular power. 10 STS 16 sec (03/11/25) A[facility] Duster Goal 4: Patient will report 70% improvement in overall strength and endurance. Minutes Tracking: Time In: 914 Time Out: 1000 Minutes: 45 Cedrick Rm Date: 03/28/2025 Cosigned by Al Singh, PT at 03/28/2025 1:27 PM EDT documented in this encounterBon [facility]06-[facility] History of Present illness Narrative* Cedrick Perera - 03/21/2025 8:30 AM EDT [facility] Outpatient Physical Therapy Daily Note Patient: Karen Zaidi : 1955 CSN #: [id number] Referring Physician: Augustina Vargas MD Date: 03/21/2025 Diagnosis: Osteoporosis, post-menopausal, M81.0, osteoporosis without pathological fx, M81.8, hx ofpelvic fx Z87.81 Treatment Diagnosis: Osteoporosis, R knee pain, R knee OA Onset Date: 09/09/24 PT Insurance Information: Medicare A and B Total # of Visits Approved: 12 Per Physician Order Total # of Visits to Date: 10 No Show: 0 Canceled Appointment: 0 06/20/25 Plan of Care/Recert Due Pre-Treatment Pain: 0/10 [...] 85% of 1RM to improve bone denisty.--MET A[employer] Duster Goals Time Frame for Aerial Crop Duster Goals : 6 weeks Penitentiary Goal 1: Patient will be independent and compliant with a HEP and gym exercise program. - MET/continued A[facility] C[employer] Duster Goal 2: Patient will improve bilateral LE strength to 5/5 in all major joints and planes. Penitentiary Goal 3: Patient will improve 5 time sit to stand time by at least 1 second to indicate improved muscular power. 10 STS 16 sec (03/11/25) Penitentiary Goal 4: Patient will report 70% improvement in overall strength and endurance. Minutes Tracking: Time In: 829 Time Out: 0915 Minutes: 45 Timed Code Treatment Minutes: 44 Minutes Cedrick Rm Date: 03/21/2025 Cosigned by Al Singh, PT at 03/21/2025 10:16 AM EDT documented in this encounterBon [facility]06-04-[facility] Telephone encounter Note* Telephone Encounter - Estefany Nino - 03/16/2025 10:14 AM EDT 2nd attempt, spoke with patients , gave phone number for patient to call us back to scheduleappointment with Sachi Martinez APRN.CNP AFTER her CARD appointment 3rd, mychart reminder to call sent [facility]06-04-2025 Miscellaneous Notes* Telephone Encounter - Estefany Nino - 03/16/2025 10:14 AM EDT 2nd attempt, spoke with patients , gave phone number for patient to call us back to scheduleappointment with Sachi Martinez APRN.CNP AFTER her CARD appointment 3rd, mychart reminder to call sent * Telephone Encounter - Estefany Nino - 03/09/2025 2:13 PM EDT 1st, lvm for patient to call back and schedule with Sachi Martinez APRN.CNP * Telephone Encounter - Estefany Nino - 03/03/2025 12:00 PM EDT Called and spoke with patient, scheduled sooner for Cardiology in [place] Scheduled for 06/07/2025 in [place]. Patient has been again added to the wait list and marked high priority * Telephone Encounter - Gely Gutierrez - 02/18/2025 9:46 AM EDT All we can do is schedule what we have and place patient on wait list. Patient is scheduled with Dr Bowens in July which is her soonest available. If she is willing to travel she might see another gen card sooner but otherwise we have nothing available here in [place] at this time. * Telephone Encounter - Sachi Martinez APRN.CNP - 02/14/2025 10:35 AM EDT Please help Karen to reschedule cardiology apt sooner, February if possible, then schedule a follow up apt with me in March. Thank you. documented in this encounterOhiohealth [facility]06-04-2025 History of Present illness Narrative* Cedrick Perera - 03/16/2025 9:15 AM EDT [facility] Outpatient Physical Therapy Daily Note Patient: Karen Zaidi : 1955 CSN #: [id number] Referring Physician: Augustina Vargas MD Date: 03/16/2025 Diagnosis: Osteoporosis, post-menopausal, M81.0, osteoporosis without pathological fx, M81.8, hx ofpelvic fx Z87.81 Treatment Diagnosis: Osteoporosis, R knee [...] 85% of 1RM to improve bone denisty.--MET Aerial Crop Duster Goals Time Frame for Aerial Crop Duster Goals : 6 weeks Aerial Crop Duster Goal 1: Patient will be independent and compliant with a HEP and gym exercise program. - MET/continued A[facility] [employer] Duster Goal 2: Patient will improve bilateral LE strength to 5/5 in all major joints and planes. Aerial C[employer] Duster Goal 3: Patient will improve 5 time sit to stand time by at least 1 second to indicate improved muscular power. 10 STS 16 sec (03/11/) A[facility] [facility]uster Goal 4: Patient will report 70% improvement in overall strength and endurance. Minutes Tracking: Time In: 914 Time Out: 1000 Minutes: 45 Timed Code Treatment Minutes: 44 Minutes Cedrick Rm Date: 03/16/2025 Cosigned by Al Singh, PT at 03/16/2025 7:17 PM EDT documented in this encounterBon [facility]06-02-[facility] History of Present illness Narrative* Cedrick Perera - 03/14/2025 9:15 AM EDT [facility] Outpatient Physical Therapy Daily Note Patient: Karen Zaidi : 1955 CSN #: [id number] Referring Physician: Augustina Vargas MD Date: 03/14/2025 Diagnosis: Osteoporosis, post-menopausal, M81.0, osteoporosis without pathological fx, M81.8, hx ofpelvic fx Z87.81 Treatment Diagnosis: Osteoporosis, R knee [...] 85% of 1RM to improve bone denisty.--MET A[employer] Duster Goals Time Frame for Penitentiary Goals : 6 weeks Penitentiary Goal 1: Patient will be independent and compliant with a HEP and gym exercise program. - MET/continued A[employer] Duster Goal 2: Patient will improve bilateral LE strength to 5/5 in all major joints and planes. A[employer] C[employer] Duster Goal 3: Patient will improve 5 time sit to stand time by at least 1 second to indicate improved muscular power. 10 STS 16 sec (03/11/25) Penitentiary Goal 4: Patient will report 70% improvement in overall strength and endurance. Minutes Tracking: Time In: 915 Time Out: 1000 Minutes: 44 Timed Code Treatment Minutes: 43 Minutes Cedrick Rm Date: 03/14/2025 Cosigned by Al Singh, PT at 03/14/2025 11:16 AM EDT documented in this encounterBon [facility]05-30-[facility] History of Present illness Narrative* Giovanna Wu PTA - 03/11/2025 8:00 AM EDT Physical Therapy [facility] Outpatient Physical Therapy Daily Note Patient: Karen Zaidi : 1955 CSN #: [id number] Referring Physician: Augustina Vargas MD Date: 03/11/2025 [...] as hip flexors/ext/abd, bicep and tricep. Increase weightas exer becomes easier. Assessment Assessment: Pt STS from chair no UE support x10 reps in 16 seconds. Vcs provided with deadlifts forneutral spine and for activating core to support [...] 85% of 1RM to improve bone denisty.--MET Aerial Crop Duster Goals Time Frame for Aerial Crop Duster Goals : 6 weeks Aerial Crop Duster Goal 1: Patient will be independent and compliant with a HEP and gym exercise program. - MET/continued Penitentiary Goal 2: Patient will improve bilateral LE strength to 5/5 in all major joints and planes. Penitentiary Goal 3: Patient will improve 5 time sit to stand time by at least 1 second to indicate improved muscular power. 10 STS 16 sec (03/11/25) Penitentiary Goal 4: Patient will report 70% improvement in overall strength and endurance. Minutes Tracking: Time In: 0757 Time Out: 0842 Minutes: 45 Timed Code Treatment Minutes: 42 Minutes Giovanna Wu PTA Date: 03/11/2025\ Cosigned by Al Singh PT at 03/11/2025 9:00 AM EDT documented in this encounterBon [facility]05-28-2025 History of Present illness Narrative* Giovanna Wu PTA - 03/09/2025 2:30 PM EDT Physical Therapy [facility] Outpatient Physical Therapy Daily Note Patient: Karen Zaidi : 1955 CSN #: [id number] Referring Physician: Augustina Vargas MD Date: 03/09/2025 [...] / LE knee flexion (IRM 100) 5x5 ~100lbs Exercise 4: Chest press on bench (1RM [...] session. Added hold with cybex rows this datefor increasing difficulty with completion. Cues provided with [...] 85% of 1RM to improve bone denisty.--MET Aerial Crop Duster Goals Time Frame for Aerial Crop Duster Goals : 6 weeks Penitentiary Goal 1: Patient will be independent and compliant with a HEP and gym exercise program. - MET/continued Penitentiary Goal 2: Patient will improve bilateral LE strength to 5/5 in all major joints and planes. Penitentiary Goal 3: Patient will improve 5 time sit to stand time by at least 1 second to indicate improved muscular power. Penitentiary Goal 4: Patient will report 70% improvement in overall strength and endurance. Minutes Tracking: Time In: 1430 Time Out: 1514 Minutes: 44 Timed Code Treatment Minutes: 41 Minutes Giovanna Wu PTA Date: 03/09/2025 Cosigned by Al Singh, PT at 03/09/2025 6:51 PM EDT documented in this encounterBon [facility]05-28-2025 Telephone encounter Note* Telephone Encounter - Estefany Nino - 03/09/2025 2:13 PM EDT 1st, lvm for patient to call back and schedule with Sachi Martinez APRN.SUMMER ANALYST [facility]05-27-2025 History of Present illness Narrative* Augustina Vargas MD - 03/08/2025 3:30 PM EDT Images from the original note were not included. [facility] [id number] FOR CHRONIC PELVIC PAIN OUTPATIENT VISIT DATE 03/08/2025 OUTPATIENT VISIT TYPE FOLLOW UP CHIEF COMPLAINT follow up HISTORY OF PRESENT ILLNESS Karen is a 69 year old female who is in today for follow up. Since last visit: Pt reports that she is completing PT at [place] and is doing a multitude of exercises [...] and do 3 laps around the track andgo and down the bleaches at least 3x/week Quality of sleep: good Mood: good Side effects of medications for pain: none Pain Scales SUMMARY FROM LAST VISIT Date: [facility] 12/08/24 ASSESSMENT/PLAN Encounter Diagnosis ICD-10-CM 1. High-tone [...] pain psych,PFPT) 1. PFPT documented in this encounterOhiohealth Grady [facility]05-27-2025 NoteHNO ID: [id number] Author: AUGUSTINA VARGAS MD Service: ? Author Type: Physician Type: Progress Notes Filed: 03/14/2025 23:17 Note Text: [facility] [id number] FOR CHRONIC PELVIC PAIN OUTPATIENT VISIT DATE 03/08/2025 OUTPATIENT VISIT TYPE FOLLOW UP CHIEF COMPLAINT follow up HISTORY OF PRESENT ILLNESS Karen is a 69 year old female who is in today for follow up. Since last visit: Pt reports that she is completing PT at [place] and is doing a multitude of exercises [...] Pain Scales SUMMARY FROM LAST VISIT Date: [facility] 12/08/24 ASSESSMENT/PLAN Encounter Diagnosis ICD-10-CM 1. High-tone [...] cream Services (GI, urology, pain psych,PFPT) [facility]. [facility] Tele[facility] encounter Note* Telephone Encounter - Estefany Nino - 03/03/2025 12:00 PM EDT Called and spoke with patient, scheduled sooner for Cardiology in [place] Scheduled for 06/07/2025 in [place]. Patient has been again added to the wait list and marked high priority [facility]05-20-2025 History of Present illness Narrative* Garrison العراقي JOE - 03/01/2025 8:30 AM EDT Physical Therapy [facility] Outpatient Physical Therapy Daily Note Patient: Karen Zaidi : 1955 CSN #: [id number] Referring Physician: Augustina Vargas MD Date: 03/01/2025 [...] Decreased strength, Decreased endurance, Decreased balance, Decreased high- level IADLs, Increased pain Assessment: Completed 5x5 protocol with ther ex as indicated on flow sheet. Held additions secondary to moderate soreness today. Pt required assitance with OH shoulder press in first 2-3 reps. Reduceweight of OH shoulder press and instructed in longer rest breaks with improved form noted after butstill fatigued in later reps. Vc on proper hip hinging with glut strengthening excercsies to reducelumbar compensations with fair carryover. Activity Tolerance Activity [...] 85% of 1RM to improve bone denisty.--MET Aerial Crop Duster Goals Time Frame for Aerial Crop Duster Goals : 6 weeks Aerial Crop Duster Goal 1: Patient will be independent and compliant with a HEP and gym exercise program. Penitentiary Goal 2: Patient will improve bilateral LE strength to 5/5 in all major joints and planes. Penitentiary Goal 3: Patient will improve 5 time sit to stand time by at least 1 second to indicate improved muscular power. A[facility] C[employer] Duster Goal 4: Patient will report 70% improvement in overall strength and endurance. Minutes Tracking: Time In: 08 Time Out: 911 Minutes: 47 Timed Code Treatment Minutes: 47 Minutes Garrison العراقي PTA Date: 03/01/2025 Cosigned by Al Singh, PT at 03/01/2025 9:23 AM EDT documented in this encounterBon [facility]05-16-20[facility] History of Present illness Narrative* Trudy Garner PTA - 02/25/2025 10:30 AM EDT [facility] Outpatient Physical Therapy Daily Note Patient: Karen Zaidi : 1955 [facility] #: [id number] Referring Physician: Augustina Vargas MD Date: 02/25/2025 [...] and shoulder press with remaining time. L sideespecially weak, limited by fatigue. Pt able to [...] 85% of 1RM to improve bone denisty.--MET Penitentiary Goals Time Frame for Penitentiary Goals : 6 weeks Penitentiary Goal 1: Patient will be independent and compliant with a HEP and gym exercise program. Penitentiary Goal 2: Patient will improve bilateral LE strength to 5/5 in all major joints and planes. Penitentiary Goal 3: Patient will improve 5 time sit to stand time by at least 1 second to indicate improved muscular power. Aerial Crop Duster Goal 4: Patient will report 70% improvement in overall strength and endurance. Minutes Tracking: Time In: 1030 Time Out: 1112 Minutes: 42 Trudy Garner PTA Date: 02/25/2025 Cosigned by Al Singh, PT at 02/25/2025 2:26 PM EDT documented in this encounterBon [facility]* Telephone Encounter - Gely Gutierrez - 02/18/2025 9:46 AM EDT All we can do is schedule what we have and place patient on wait list. Patient is scheduled with Dr Bowens in July which is her soonest available. If she is willing to travel she might see another gen card sooner but otherwise we have nothing available here in [place] at this time. [facility]05-05-2025 Telephone encounter Note* Telephone Encounter - Sachi Martinez APRN.CNP - 02/14/2025 10:35 AM EDT Please help Karen to reschedule cardiology apt sooner, May if possible, then schedule a follow up apt with me in March. Thank you. [facility]05-02-2025 Telephone encounter Note* Telephone Encounter - Cielo Gomez RN - 02/11/2025 1:16 PM EDT Attempted to reach patient to see if she is using Flexeril medication, if she is needing to get medication refilled, and if prior auth is needed, and if so, ask patient for Rx Bin, Rx Group, and PCN so we can complete the PA. Left VM for her to return call to office to discuss with a nurse. Cielo Gomez RN [facility]05-02-2025 Miscellaneous Notes* Telephone Encounter - Cielo Gomez RN - 02/11/2025 1:16 PM EDT Attempted to reach patient to see if she is using Flexeril medication, if she is needing to get medication refilled, and if prior auth is needed, and if so, ask patient for Rx Bin, Rx Group, and PCN so we can complete the PA. Left VM for her to return call to office to discuss with a nurse. Cielo Gomez RN * Telephone Encounter - Lupis Steele - 02/10/2025 3:24 PM EDT Reason for call: Other Provider name: Dr Vargas Additional comments: Cyclobenzaprine need PA. Letter scan into [employer]. Recommendation: routed to nurse triage pool Last visit in this department: Visit date not found Last distance health visit in this department: Visit date not found Next visit in this department: Visit date not found Appointments for Next 60 Days Date Time Provider Location Dept Phone 03/08/2025 3:30 PM AUGUSTINA VARGAS [phone] documented in this encounterOhio[facility] Telephone encounter Note * Telephone Encounter - Lupis Steele - 02/10/2025 3:24 PM EDT Reason for call: Other Provider name: Dr Vargas Additional comments: Cyclobenzaprine need PA. Letter scan into [employer]. Recommendation: routed to nurse triage pool Last visit in this department: Visit date not found Last distance health visit in this department: Visit date not found Next visit in this department: Visit date not found Appointments for Next 60 Days Date Time Provider Location Dept Phone 03/08/2025 3:30 PM ALICIA AUGUSTINA Brenton [place] Bld [phone] [facility] Work Phone: 1(574) 493-438104-29-2025 Instructions* Patient Instructions* Sachi Martinez APRN.CNP - 02/08/2025 11:44 AM EDT Add vit D 1,000 units once daily with food and continue Caltrate, also vitamin B complex. Message Sachi Martinez on Mychart after you see cardiology. Recheck vitamin D in 3 months. documented in this encounterOhiohealth [facility]ady [facility]04-29-2025 History of Present illness Narrative* Gi Siddiqi MD - 02/08/2025 11:20 AM EDT Images from the original note [...] encounter diagnosis) (I25.10) Coronary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 hour bladder diary for analysis andestablishment of appropriate intervention for remaining visits - not met Short Term Goal 2: Pt will report improvement regarding pain to allow better tolerance to ADLs. - progressing Short Term Goal 3: Initiate HEP and progress as tolerated for pain control, muscular balance, and improved bowel habits. - MET Aerial Crop Duster Goals Time Frame for Penitentiary Goals : 12 visits Aerial Crop Duster Goal 1: Pt will be independent and compliant with her HEP for pain control and resumptionof desired activities. Aerial Crop Duster Goal 2: Patient will demonstrate a minimum of 4/5 pelvic floor muscle strength bilaterally in order to eliminate urinary incontinence symptoms as subjectively reported by patient Aerial Crop Duster Goal 3: Pain disability index will be improved and reported as no greater than 20 indicating better tolerance to ADLs Penitentiary Goal 4: Pt will report at least 75% improvement overall and allow return to desired activities. Minutes Tracking: Time In: 901 Time Out: 944 Minutes: 43 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 PTA Date: 01/24/2025 Cosigned by Lorena Vaca, PT at 01/24/2025 11:13 AM EDT documented in this encounterBon [facility] Instructions* Patient Instructions* Augustina Vargas MD - 12/08/2024 4:40 PM [...] stress urinary incontinence (4.8%). documented in this encounterOhiohealth [facility]ady [facility]02-[facility]25 History of Present illness Narrative* Augustina Vargas MD - 12/08/2024 4:00 PM EST Images from the original note were not included. [facility] SECTION FOR CHRONIC PELVIC PAIN OUTPATIENT VISIT [...] on 09/02/24. She required 10 weeks of [id number]-[id number] activity and is still attending physical therapy. She did not hit her head. Patient reports that after her injections, she initially noticed significant improvement and found her 07/06/24 injections effective for pain relief until the pelvic fracture occurred. She continues to experience constant left-sided abdominal tightness, which she rates as 10/10. She uses Flexeril atnight and a heating pad, noting that her [...] takes miralax once per week Going to [facility] on December 25, 2024 for vacation Intensity [...] Unknown) BMI 21.61 kg/m Physical Exam Abdominal: Refrigeration System Installer offered: Patient declines. SENSITIVE EXAM: The sensitive examination was discussed with the Patient or Patient's Authorized Information Technology Associate. As applicable, any other physician, advance practice provider, medical student, or other health professional student that will be observing or involved in the sensitive examination for educational or training purposes was discussed with the Patient or Authorized Information Technology Associate. The Patient or Authorized Information Technology Associate has agreed to proceed with the sensitive [...] was prepped in a sterile fashion. Left LowerQuadrant. Affected area was injected in 1 muscle Groups with 10 mL of the bupivicaine solution using a 22g needle. Patient tolerated the procedure well. 8 AREAS 0.25% Bupivacaine 10 ML --- lot # [id number] EXP:09/11/2025 UNIVERSAL PROTOCOL / SAFETY CHECKLIST Procedure [...] Patient tolerated procedure well. OnabotulinumtoxinA: office provided LOT:[id number] EXP: 02/2027 documented in this encounterOhiohealth Grady [facility]02-26-2025 NoteHNO ID: [id number] Author: AUGUSTINA VARGAS MD Service: ? Author Type: Physician Type: Progress Notes Filed: 12/11/2024 16:30 Note Text: [facility] SECTION FOR CHRONIC PELVIC PAIN OUTPATIENT VISIT [...] on 09/02/24. She required 10 weeks of rgs-[id number]-efqkqgq activity and is still attending physical therapy. [...] takes miralax once per week Going to [place] on December 25, 2024 for vacation Intensity [...] Unknown) BMI 21.61 kg/m? Physical Exam Abdominal: Refrigeration System Installer offered: Patient declines. SENSITIVE EXAM: The sensitive examination was discussed with the Patient or Patient's Authorized Information Technology Associate. As applicable, any other physician, advance practice provider, medical student, or other health professional student that will be observing or involved in the sensitive examination for educational or training purposes was discussed with the Patient or Authorized Information Technology Associate. The Patient or Authorized Information Technology Associate has agreed to proceed with the sensitive [...] pathological fracture M81.8 CON (more content not included)...[facility]02-24-2025 History of Present illness Narrative* Jagruti Flowers LPN - 12/06/2024 11:00 AM EST Reason for Appointment: Patient ID: Karen Zaidi [...] Date Noted Osteoporosis 03/04/2023 Peripheral vascular disease ([facility]) 03/17/2023 Follow-up exam 03/17/2023 Resolved Ambulatory Problems Diagnosis Date Noted Acute non intractable tension-type headache 03/17/2023 Chronic rhinitis 03/17/2023 Pharyngeal dysphagia 03/17/2023 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 Family history of abdominal aortic aneurysm 08/20/2023 Infrarenal abdominal 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 ([facility]) 08/20/2023 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 Chest pain 06/12/2023 Pelvic pain 08/20/2023 Submandibular gland swelling 10/07/2023 Mass of right submandibular region 12/01/2023 Neck pain 12/01/2023 Malnutrition of moderate degree ([facility]) 03/03/2024 Narcotic drug use 02/19/2024 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 Other hyperlipidemia ([facility]) 02/19/2024 Ovarian varices 02/19/2024 Sinus bradycardia on ECG 02/20/2024 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 Past Medical History: Diagnosis Date Allergic rhinitis Lung nodule Pelvic congestion Sinusitis HISTORY PAST MEDICAL HISTORY SOCIAL HISTORY Past Medical History: Diagnosis Date Acute non intractable tension-type headache 03/17/2023 Allergic rhinitis Chest pain 06/12/2023 Chronic rhinitis 03/17/2023 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 Last Assessment & Plan: Sp styloidectomy Family history of abdominal aortic aneurysm 08/20/2023 Infrarenal abdominal 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 ([facility]) 08/20/2023 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 Lung nodule Malnutrition of moderate degree ([facility]) 03/03/2024 Mass of right submandibular region 12/01/2023 Narcotic drug use 02/19/2024 Last Assessment & Plan: Pain managed with norco PRN Neck pain 12/01/2023 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 Last Assessment & Plan: With pelvic congestion Patient endorses abdominal and L flank pain with radiation to pelvis Other hyperlipidemia ([facility]) 02/19/2024 Last Assessment & Plan: Managed on Atorvastatin Ovarian varices 02/19/2024 Last Assessment & Plan: 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 Plan for surgery Pelvic congestion Pelvic pain 08/20/2023 Pharyngeal dysphagia 03/17/2023 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 Exam conducted with a surveyor helper present. 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 Family history of abdominal aortic aneurysm 08/20/2023 Infrarenal abdominal 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 ([facility]) 08/20/2023 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 Chest pain 06/12/2023 Pelvic pain 08/20/2023 Submandibular gland swelling 10/07/2023 Mass of right submandibular region 12/01/2023 Neck pain 12/01/2023 Malnutrition of moderate degree ([facility]) 03/03/2024 Narcotic drug use 02/19/2024 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 Other hyperlipidemia ([facility]) 02/19/2024 Ovarian varices 02/19/2024 Sinus bradycardia on ECG 02/20/2024 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 Past Medical History: Diagnosis Date Allergic rhinitis Lung nodule Pelvic congestion Pelvic floor dysfunction Sinusitis HISTORY PAST MEDICAL HISTORY SOCIAL HISTORY Past Medical History: Diagnosis Date Acute non intractable tension-type headache 03/17/2023 Allergic rhinitis Chest pain 06/12/2023 Chronic rhinitis 03/17/2023 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 Last Assessment & Plan: Sp styloidectomy Family history of abdominal aortic aneurysm 08/20/2023 Infrarenal abdominal 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 ([facility]) 08/20/2023 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 Lung nodule Malnutrition of moderate degree ([facility]) 03/03/2024 Mass of right submandibular region 12/01/2023 Narcotic drug use 02/19/2024 Last Assessment & Plan: Pain managed with norco PRN Neck pain 12/01/2023 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 Last Assessment & Plan: With pelvic congestion Patient endorses abdominal and L flank pain with radiation to pelvis Other hyperlipidemia ([facility]) 02/19/2024 Last Assessment & Plan: Managed on Atorvastatin Ovarian varices 02/19/2024 Last Assessment & Plan: 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 Plan for surgery Pelvic congestion Pelvic floor dysfunction Pelvic pain 08/20/2023 Pharyngeal dysphagia 03/17/2023 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 Exam conducted with a surveyor helper present. Vitals: Estimated body mass index is [...] Since last visit she had surgery at [facility] where they performed what is called auto kidney transplant and patient pain isgone and she is in pelvic floor therapy. She also suffered a pelvic rami fracture x4 post a fall. She has healed and just recently able to restart pelvic therapy Follow Up: Patient is to return in one year for annual unless needed otherwise. Documented by DELIA Burnett on behalf of: DELIA Burnett documented in this encounterNevada Regional Medical [id number] Telephone encounter Note* Telephone Encounter - Kira Alvarez RN - 11/01/2024 3:59 PM EST Order faxed with transmission receipt. Kira Alvarez RN November 01, 2024 3:59 PM [facility]01-20-2025 Miscellaneous Notes* Telephone Encounter - Kira Alvarez RN - 11/01/2024 3:59 PM EST Order faxed with transmission receipt. Kira Alvarez RN November 01, 2024 3:59 PM * Telephone Encounter - Nano Cline - 11/01/2024 3:01 PM EST Patient cleared by ortho to resume PFPT. Patient requesting new order placed and faxed to number below: documented in this encounterOhiohealth Grady [facility] Hospital01-20-2025 Telephone encounter Note * Telephone Encounter - Nano Cline - 11/01/2024 3:01 PM EST Patient cleared by ortho to resume PFPT. Patient requesting new order placed and faxed to number below: [facility]12-10-2024 Note* Addendum Note - Alysha Torres RN - 09/21/2024 2:45 PM ESTAddended by: ALYSHA TORRES on: 09/21/2024 02:45 PM Modules accepted: Orders [facility]12-10-2024 Miscellaneous Notes* Addendum Note - Alysha Torres RN - 09/21/2024 2:45 PM ESTAddended by: ALYSHA TORRES on: 09/21/2024 02:45 PM Modules accepted: Orders * Telephone Encounter - Alysha Torres RN - 09/21/2024 2:41 PM EST NICK 08/17/2024 Assessment: Encounter Diagnosis ICD-10-CM 1. High-tone pelvic floor dysfunction M62.89 cyclobenzaprine (FLEXERIL) 5 mg tablet onabotulinum toxin type A 100 Units injection (BOTOX) Plan: 1) fu botox and abd TPI 10/05/24 2) continue flexeril vaginally Total Time Spent: 5-10 minutes Augustina Vargas MD * Telephone Encounter - Tosin Jin - 09/21/2024 12:18 PM EST Pt fyi - broke pelvis in four places about 3 weeks ago. Had to cancel all future PT appts and will need new order for end of end of November/beginning of December. Also had to reschedule TPI to end november. Pt concerned and wanted to insure Dr was aware of current situation. documented in this encounterOhiohealth Grady [facility] Hospital12-10-2024 Telephone encounter Note * Telephone Encounter - Alysha Torres RN - 09/21/2024 2:41 PM EST NICK 08/17/2024 Assessment: Encounter Diagnosis ICD-10-CM 1. High-tone pelvic floor dysfunction M62.89 cyclobenzaprine (FLEXERIL) 5 mg tablet onabotulinum toxin type A 100 Units injection (BOTOX) Plan: 1) fu botox and abd TPI 10/05/24 2) continue flexeril vaginally Total Time Spent: 5-10 minutes Augustina Vargas MD [facility]12-10-2024 Telephone encounter Note* Telephone Encounter - Tosin Jin - 09/21/2024 12:18 PM EST Pt fyi - broke pelvis in four places about 3 weeks ago. Had to cancel all future PT appts and will need new order for end of end of November/beginning of December. Also had to reschedule TPI to end of November. Pt concerned and wanted to insure Dr was aware of current situation. [facility]11-20-2024 Telephone encounter Note* Telephone Encounter - Danae Colindres RN - 09/01/2024 12:04 PM EST Refill(s) request: Requested Prescriptions Pending Prescriptions Disp Refills cyclobenzaprine (FLEXERIL) 5 mg tablet [Pharmacy Med Name: cyclobenzaprine 5 mg tablet] 90 tablet 4 Sig: take1 tablet BY MOUTH at bedtime as needed Called patient. Left voice message and notified there is a valid prescription waiting for her to pickling tank operator at the pharmacy on file. Request [...] Center 10/05/2024 2:30 PM Augustina Vargas MD [facility] A Bldg Appointment scheduled: As listed above Action taken: Refill already approved by provider. Danae Colindres RN September 01, 2024 12:05 PM [facility]11-20-2024 Miscellaneous Notes* Telephone Encounter - Danae Colindres RN - 09/01/2024 12:04 PM EST Refill(s) request: Requested Prescriptions Pending Prescriptions Disp Refills cyclobenzaprine (FLEXERIL) 5 mg tablet [Pharmacy Med Name: cyclobenzaprine 5 mg tablet] 90 tablet 4 Sig: take1 tablet BY MOUTH at bedtime as needed Called patient. Left voice message and notified there is a valid prescription waiting for her to pickling tank operator at the pharmacy on file. Request [...] Center 10/05/2024 2:30 PM Augustina Vargas MD [facility] Appointment scheduled: As listed above Action taken: Refill already approved by provider. Danae Colindres RN September 01, 2024 12:05 PM documented in this encounterOhiohealth Grady [facility] Hospital11-11-2024 Telephone encounter Note * Telephone Encounter - Juliet Lopez RN - 08/23/2024 2:24 PM EST Called Guille Kaur to clarify that prescription is for Flexeril 5 mg tablets and to use 1 tablet at bedtime vaginally. Juliet Lopez RN [facility]11-11-2024 Miscellaneous Notes* Telephone Encounter - Juliet Lopez RN - 08/23/2024 2:24 PM EST Called Guille Kaur to clarify that prescription is for Flexeril 5 mg tablets and to use 1 tablet at bedtime vaginally. Juliet Lopez RN * Telephone Encounter - Nano Cline - 08/23/2024 1:53 PM EST Received call from pharmacy asking for clarification of directions for: cyclobenzaprine (FLEXERIL) 5 mg tablet States that direction says to use vaginally but prescription is for oral tablet Please advise: [facility] [id number] - [place] [address] - [address] - [phone] documented in this encounterOhiohealth Grady Memorial Hospital11-11-2024 Telephone encounter Note * Telephone Encounter - Nano Cline - 08/23/2024 1:53 PM EST Received call from pharmacy asking for clarification of directions for: cyclobenzaprine (FLEXERIL) 5 mg tablet States that direction says to use vaginally but prescription is for oral tablet Please advise: [facility] [id number] - [place] [address] - [address] - [phone] [facility]11-07-2024 Telephone encounter Note* Telephone Encounter - Lupis Steele - 08/19/2024 11:31 AM EST Done Lupis Hodge [facility] Work Phone: 1(498) 187-244811-07-2024 Miscellaneous Notes* Telephone Encounter - ChunEricaNaveen TonoLupis - 08/19/2024 11:31 AM EST Done Lupis Hodge * Telephone Encounter - Augustina Vargas MD - 08/18/2024 1:24 PM EST Done Encounter Diagnosis ICD-10-CM 1. High-tone pelvic floor dysfunction M62.89 CYSTOSCOPY WHI * Telephone Encounter - Augustina Vargas MD - 08/17/2024 4:54 PM EST Please put her on my schedule oct 05, 2024 at 2:30pm for botox, which is approved already Patient aware documented in this encounterOhiohealth Grady Memorial Hospital11-06-2024 Telephone encounter Note * Telephone Encounter - Augustina Vargas MD - 08/18/2024 1:24 PM EST Done Encounter Diagnosis ICD-10-CM 1. High-tone pelvic floor dysfunction M62.89 CYSTOSCOPY WHI [facility]11-05-2024 NoteHNO ID: [id number] Author: AUGUSTINA VARGAS MD Service: ? Author [...] cream Services (GI, urology, pain psych,PFPT) [facility]. [facility] History of Present illness Narrative * Augustina Vargas MD - 08/17/2024 4:55 PM EST CHRONIC PELVIC PAIN TELEPHONE VISIT PROGRESS NOTE [...] pain psych,PFPT) 1. PFPT documented in this encounterOhiohealth Grady Memorial Hospital11-05-2024 Telephone encounter Note * Telephone Encounter - Augustina Vargas MD - 08/17/2024 4:54 PM EST Please put her on my schedule oct 05, 2024 at 2:30pm for botox, which is approved already Patient aware [facility]10-14-2024 History of Present illness Narrative* Sarah Godwin MD - 07/26/2024 10:15 AM EDT [facility] [address] [place] [address], [address] [place] [id number] SUBJECTIVE: Patient ID: Karen Zaidi is a [...] of her kidney on 03/02/2024 at [facility]. 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 Osteoporosis Pelvic congestion syndrome Peripheral vascular disease ([facility]) Seasonal allergies Submandibular gland swelling 11/12/2023 Visual impairment glasses Past Surgical History: Procedure Laterality Date CATARACT EXTRACTION Bilateral 2018 CHOLECYSTECTOMY COLONOSCOPY COLONOSCOPY N/A 07/23/2018 Performed by Orquidea Christine DO at [facility] 07/2013 implants Diagnostic cerebral angiogram N/A 03/31/2020 Performed by Melissa Morillo MD at [facility] CARDIAC CATH LABS DIAGNOSTIC VENOGRAM OF IVC AND ILEOCABLE, LEFT RENAL VEIN, SELECTIVE LEFT OVARIAN VEIN CONTRAST ANDIVUS VENOGRAMS N/A 07/25/2023 Performed by Erendira Armijo DO at [facility] SPECIAL PROC dilation rt submandibular duct and steroid irrigation Right 11/24/2023 Performed by Sarah Godwin MD at [facility] KIDNEY STONE SURGERY 2018? KNEE CARTILAGE SURGERY MOLE REMOVAL 11/10/2023 right breast NEPHRECTOMY TRANSPLANTED ORGAN 03/02/2024 OTHER SURGICAL HISTORY 08/31/2020 cranial base ( cranial styloidectomy) 05/2020 also OTHER SURGICAL HISTORY 06/18/2023 venogram OTHER SURGICAL HISTORY 09/09/2023 DIagnostic venogram TUBAL LIGATION Vascular Invasive Diagnostic venogram with IVUS and the ability to measure pressure gradients Bilateral 06/18/2023 Performed by Erendira Armijo DO at [facility] CARDIAC CATH LABS Family History [...] by mouth every 6 (six) hours asneeded. loratadine-pseudoephedrine (LORATADINE-D) 5-120 mg tablet extended release [...] without nodules or tenderness, No palpableneck masses, Carotids normal, and well healed left [...] or concerns: . Non-emergent messages received through [employer] may take up to 2 business days [...] this chart were generated using voice recognition [employer] dictation software. Although every effort was made to ensure the accuracy of this automated alterations workroom clerk, some errors in alterations workroom clerk may have occurred. Yovana Veloz CNA 07/26/24 1024 documented in this [facility] [id number] Instructions* Patient Instructions* Neda Stevens - 07/26/2024 10:15 AM EDT [...] or concerns: . Non-emergent messages received through [employer] may take up to 2 business days for a response. documented in this encounterSt. [facility] Hospital[facility]-24-2024 Instructions* Patient Instructions* Augustina Vargas MD - 07/06/2024 11:13 AM [...] stress urinary incontinence (4.8%). documented in this encounterOhiohealth [facility]ady [facility]09-24-2024 History of Present illness Narrative* Augustina Vargas MD - 07/06/2024 10:30 AM EDT Images from the original note were not included. [facility] SECTION FOR CHRONIC PELVIC PAIN OUTPATIENT VISIT [...] Patient tolerated procedure well. OnabotulinumtoxinA: office provided LOT:[id number] EXP: 08/2026 PROCEDURE ABDOMINAL TRIGGER POINT INJECTIONS Area prepped with alcohol swab and pain ease spray 10 mL 0.25% bupivicaine mixed in a 10 mL syringe. Skin was prepped in a sterile fashion. Left LowerQuadrant. Affected area was injected in 1 muscle Groups with 10 mL of the bupivicaine solution using a 22g needle. Patient tolerated the procedure well. 5 AREAS Patient tolerated procedure well. 0.25% Bupivacaine 10 ML --- lot # [id number] EXP: 05/2026 documented in this encounterOhiohealth Grady Memorial Hospital09-24-2024 NoteHNO ID: [id number] Author: AUGUSTINA VARGAS MD Service: ? Author Type: Physician Type: Progress Notes Filed: 07/06/2024 11:47 Note Text: [facility] SECTION FOR CHRONIC PELVIC PAIN OUTPATIENT VISIT [...] PHYSICAL THERAPY You can search for others [email or web address], enter zip or city You can click [...] treatment plan. Medical [facility] (more content not included)...[facility] 06-07-2024 Telephone encounter Note* Telephone Encounter - Kira Alvarez RN - 06/07/2024 10:24 AM EDT Called pt; verified name/. Advised pt to use Flexeril vaginally, inserting as far as it will go at bedtime. Advised pt that itmay cause drowsiness, but to a lesser degree when inserted vaginally vs. orally. Pt verbalized understanding and had no further questions. Kira Alvarez RN June 07, 2024 10:25 AM [facility]08-26-2024 Miscellaneous Notes* Telephone Encounter - Kira Alvarez RN - 06/07/2024 10:24 AM EDT Called pt; verified name/. Advised pt to use Flexeril vaginally, inserting as far as it will go at bedtime. Advised pt that itmay cause drowsiness, but to a lesser degree when inserted vaginally vs. orally. Pt verbalized understanding and had no further questions. Kira Alvarez RN June 07, 2024 10:25 AM * Telephone Encounter - Augustina Vargas MD - 06/06/2024 11:06 PM EDT Tell her fleexeril, I like to try it vaginally first (less side effects ) and use at night. Insert as far as it will go vaginally at night It can cause grogginess but more so if used orally * Telephone Encounter - Aidee Delong RN - 06/04/2024 10:31 AM EDT NICK 05/27/2024 Notes not yet complete Alysha [...] 04, 2024 10:38 AM documented in this encounterOhiohealth Grady Memorial Hospital08-26-2024 Telephone encounter Note * Telephone Encounter - [facility], Lupis - 06/07/2024 8:25 AM EDT Done Lupis Hodge [facility] Work Phone: 1(470) 978-575008-26-2024 Miscellaneous Notes* Telephone Encounter - ChunRicardo Power Lupis - 06/07/2024 8:25 AM EDT Done Lupis Hodge * Telephone Encounter - Augustina Vargas MD - 06/06/2024 11:09 PM EDT Botox is approved; can she start PFPT if she desires and then do botox or do botox in office first available appointment documented in this encounterOhiohealth Grady Memorial Hospital08-25-2024 Telephone encounter Note * Telephone Encounter - Augustina Vargas MD - 06/06/2024 11:09 PM EDT Botox is approved; can she start PFPT if she desires and then do botox or do botox in office first available appointment [facility]08-25-[facility]24 Telephone encounter Note* Telephone Encounter - Augustina Vargas MD - 06/06/2024 11:06 PM EDT Tell her fleexeril, I like to try it vaginally first (less side effects ) and use at night. Insert as far as it will go vaginally at night It can cause grogginess but more so if used orally [facility]08-23-2024 Telephone encounter Note* Telephone Encounter - Aidee Delong RN - 06/04/2024 10:31 AM EDT NICK 05/27/2024 Notes not yet complete Alysha Torres RN Instructions See pelvic floor PHYSICAL THERAPY You can search for others [email or web address], enter zip or city You can click [...] RN June 04, 2024 10:38 AM [facility]08-22-2024 History of Present illness Narrative* Dania Steven DO - 06/03/2024 8:45 AM EDT Images from the original [...] sweats, or recent unintentional weight changes. She deniesany other complaints at today's office visit. 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 Lung nodule Malnutrition of moderate degree ([facility]) 03/03/2024 Mass of right submandibular region 12/01/2023 Narcotic drug use 02/19/2024 Last Assessment & Plan: Pain managed with norco PRN Neck pain 12/01/2023 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 At this time we discussed continued surveillance. She will have a follow-up CT in 1 year's time. This will be done in April 2025. At that time she will have a follow-up appointment here. The patient understands the plan and is agreeable. Follow up in about 1 year (around 06/03/2025) for CT chest. Dania Steven DO documented in this encounterNevada Regional Medical [id number] Telephone encounter Note* Telephone Encounter - Alysha Torres RN - 05/28/2024 12:45 PM EDT [facility] 05/27/2024 Notes not yet complete Alysha [...] high tone pelvic floor,pelvic floor tightness) [facility]08-16-[facility]24 Miscellaneous Notes* Telephone Encounter - Alysha Torres RN - 05/28/2024 12:45 PM EDT [facility] 05/27/2024 Notes not yet complete Alysha Torres RN Instructions See pelvic floor PHYSICAL THERAPY You can search for others [email or web address], enter zip or city You can click on names for the bios if they have them Use flexeril vaginally at night We can see if botox vaginally is covered by the insurance F/u 3 month virtually You have tight pelvic floor muscles PATIENT INFORMATION ON PELVIC FLOOR DYSFUNCTION: Myofascial pain( also known as Pelvic floor dysfunction, high tone pelvic floor,pelvic floor tightness) * Telephone Encounter - Lupis Steele - 05/28/2024 9:52 AM EDT Reason for call: other - Provider name: [...] visit in this department: 08/27/2024 08/27/2024 in [facility] with AUGUSTINA VARGAS - 3 MO F/U - TVST ok per Dr. Vargas , PLS CALL HOME PHONE PT is unable to do VV documented in this encounterOhiohealth Grady [facility] Hospital08-16-2024 Telephone encounter Note * Telephone Encounter - Lupis Steele - 05/28/2024 9:52 AM EDT Reason for call: other - Provider name: [...] visit in this department: 08/27/2024 08/27/2024 in [facility] with AUGUSTINA VARGAS - 3 MO F/U - TVST ok per Dr. Vargas , PLS CALL HOME PHONE PT is unable to do VV [facility] Work Phone: 1(326) 616-487908-15-2024 History of Present illness Narrative* Viet Carr MD - 05/27/2024 10:30 AM EDT REASON FOR VISIT: Follow-up with CT imaging [...] (FLONASE) 50 mcg/actuation nasal spray Use 1 Norco in the nose as needed for cold/allergy [...] SURGICAL HISTORY OF; Right Comment: styloidectomy for little river syndrome No date: PAST SURGICAL HISTORY OF [...] needed Viet Carr MD documented in this encounterOhiohealth Grady Memorial Hospital08-15-2024 NoteHNO ID: [id number] Author: VIET CARR MD Service: ? Author [...] (FLONASE) 50 mcg/actuation nasal spray Use 1 Norco in the nose as needed for cold/allergy [...] SURGICAL HISTORY OF; Right Comment: styloidectomy for little river syndrome No date: PAST SURGICAL HISTORY OF [...] great PLAN -Follow up as needed Viet Carr, [facility]08-15-2024 Instructions* Patient Instructions* Augustina Vargas MD - 05/27/2024 9:39 AM [...] the muscle, fascia or joints in the abdominalwall, pelvic floor, and/or low back. This is [...] take time and repetitive visits before she noticesan improvement. Unfortunately, there are few alternative treatments [...] exercises until seen by physical therapist. Instagram: Theoriginmynor Thepelvicdancefloor Shira Ruby, pelvic floor PHYSICAL THERAPY [...] messages will go to the RN or youth manager first to be addressed. If questions are urgent, please call [phone] and press nurse prompt. For urgent Questions: call my barbed wire machine operator with questions, appts related to chronic pelvic pain, Pete ,fax [phone] For refills, I prefer these be sent through [employer] We also have a nurse coordinatorKaren Francis RN My schedule: I see patients in office Friday/Friday/ and Fridays: virtual visits only documented in this encounterOhiohealth Grady Memorial Hospital08-15-2024 NoteHNO ID: [id number] Author: AUGUSTINA VARGAS MD Service: ? Author Type: Physician Type: Progress Notes Filed: 06/06/2024 23:06 Note Text: [facility] SECTION FOR CHRONIC PELVIC PAIN OUTPATIENT VISIT DATE 05/27/2024 OUTPATIENT VISIT TYPE CONSULT REFERRING PROVIDER: No ref. provider found PRIMARY CARE PROVIDER: Ammon Lucas MD PRIMARY HYBRID TESTER: Consultation requested by referring provider above for [...] pain. 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 Patient is postmenopausal. Cycles: Menopausal Last pap: Pap Results: WNL/neg HPV 03/2023 History of abnormal pap: No [place]: (MA intake) Dyspareunia: both insertional and deep [...] endorses Pain changes with bowel movements: endorses. [place] scale: dnc Pudendal symptoms: (page 13) Pain [...] an adult: None Curr (more content not included)...[facility]08-15-2024 History of Present illness Narrative* Augustina Vargas MD - 05/27/2024 8:41 AM EDT Images from the original note were not included. [facility] SECTION FOR CHRONIC PELVIC PAIN OUTPATIENT VISIT DATE 05/27/2024 OUTPATIENT VISIT TYPE CONSULT REFERRING PROVIDER: No ref. provider found PRIMARY CARE PROVIDER: Ammon Lucas MD PRIMARY HYBRID TESTER: Consultation requested by referring provider above for [...] pain. 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 and She [...] possibly saw a varicose vein; then saw [facility] dr marino ; told possibly PCS, then vascular surgeon in [place], ultrasound orders in 3 venograms done , they found PCS, 2nd onethey planned to coil, when they went in, [...] is the same She makes herself eat [place] syndrome-styloid surgery She cannot travel She is fully retired Pain is there & wakes her Pain in left anterior thigh, 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 Patient is postmenopausal. Cycles: Menopausal Last pap: Pap Results: WNL/neg HPV 03/2023 History of abnormal pap: No [place]: (MA intake) Dyspareunia: both insertional and deep [...] stairs, Urination, Stress, Housework, Getting in/out of car,and Bowel movements Alleviating factors: Lying down/rest, Ice or heating pad, Massage, and Ibuprofen/Tylenol Bowel habits: (page 12-13) Nausea/vomiting: endorses Diarrhea: denies Abdominal pain: endorses Bloating: endorses Constipation: endorses Increased pain with bowel movements: endorses Blood in stool: denies Pain with change in frequency of stool: endorses Pain with change in appearance of stool: endorses Pain changes with bowel movements: endorses. 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 non-tender Cervix: [...] obtained in 12 months --END OF FINDING-- Senior Regulatory Affairs Specialist: TRINI Transcribe Date/Time: Apr 30 2024 12:52P [...] PHYSICAL THERAPY You can search for others [email or web address], enter zip or city You can click [...] urology, pain psych,PFPT) 1. documented in this encounterOhiohealth Grady [facility] Hospital08-15-2024 NotePatient Outreach (UROLMN) KAREN ZAIDI ([id number]) 1955 F Date Time Provider Department 05/27/24 [...] for genitourinary condition [Z13.89] Order(s):URINALYSIS, REFLEX MICROSCOPIC [[id number]] Order #: [id number] URINALYSIS, REFLEX MICROSCOPIC [[id number]] Order #: [id number]. #:[id number] Prescriptions as of 05/31/2024 - cyclobenzaprine (FLEXERIL) [...] (FLONASE) 50 mcg/actuation nasal spray Use 1 Norco in the nose as needed for cold/allergy [...] Resolved Pararenal abdominal aortic aneurysm (AAA) witho*12/18/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 Other hyperlipidemia [E78.49] 02/19/2024 Ovarian varices [I86.2] 02/19/2024 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/2024 Narcotic drug use [F11.90] 02/19/2024 Sinus bradycardia on ECG [R00.1] 02/20/2024 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 Malnutrition of moderate degree (HCC) [E44.0] 03/03/2024 Encounter Status:Closed by Per Vices, PRODUSER on 05/31/24[facility] 04-26-2024 History of Present illness Narrative* Chris Medrano TECHNOLOGIST - 04/26/2024 1:15 PM EDT Radiology Service Progress Note PATIENT NAME: Karen Zaidi DATE OF SERVICE: April 26, 2024 TIME: 2:30 PM PATIENT IDENTITY VERIFICATION COMPLETED USING TWO (2) IDENTIFIERS: Name and Date of confirmedby patient verbally and Name and Date of [...] PATIENT PRESENTS WITH AN IMPLANTABLE OR ATTACHED CONSTRUCTION ENGINEERING MANAGER: No RADIOLOGY DEPARTMENT: CT; Exam(s) Completed: Abdomen/Pelvis PERIPHERAL IV DATA: Site assessment: Clean,Dry and Intact, Site disposition Discontinued SIGNED BY: TECHNOLOGIST Yunier April 26, 2024 2:30 PM documented in this encounterOhiohealth Grady [facility] Hospital07-15-2024 NoteHNO ID: [id number] Author: CHRIS MEDRANO TECHNOLOGIST Service: ? Author [...] PATIENT PRESENTS WITH AN IMPLANTABLE OR ATTACHED CONSTRUCTION ENGINEERING MANAGER: No RADIOLOGY DEPARTMENT: CT; Exam(s) Completed: Abdomen/Pelvis PERIPHERAL IV DATA: Site assessment: Clean,Dry and Intact, Site disposition Discontinued SIGNED BY: TECHNOLOGIST Yunier April 26, 2024 2:30 [facility]07-15-2024 Nurse Note* Julien Olea RN - 04/26/2024 1:15 PM EDT Radiology Service Progress Note DATE OF SERVICE: [...] e.g. those with acute kidney injury, the eGFRmay not accurately reflect actual GFR. P.O.C.T. RESULTS: [...] April 26, 2024 TIME: 1:22 PM [facility]-15-[facility] Nurse Note* Julien Olea RN - 04/26/2024 1:15 PM EDT Radiology Service Progress Note DATE OF SERVICE: [...] e.g. those with acute kidney injury, the eGFRmay not accurately reflect actual GFR. P.O.C.T. RESULTS: [...] 2024 TIME: 1:22 PM documented in this encounterOhiohealth Grady Memorial Hospital07-10-2024 Telephone encounter Note * Telephone Encounter - Destiny Borrero MD - 04/21/2024 12:50 PM EDT Called pt to discuss her postop questions. Discussed no restrictions on activity, swimming, driving, etc. Still having some pain in pelvis but flank pain and other symptoms have improved. Inquiring about f/up -- had stent removed on 04/07. Will set up 3 jorge post op f/up. She is seeing gynecology at [facility] on 05/27, will try to coordinate appt w/ Dr. Carr on that day. Destiny Borrero MD [facility] Work Phone: 1(575) 608-785607-10-2024 Miscellaneous Notes* Telephone Encounter - Destiny Borrero MD - 04/21/2024 12:50 PM EDT Called pt to discuss her postop questions. Discussed no restrictions on activity, swimming, driving, etc. Still having some pain in pelvis but flank pain and other symptoms have improved. Inquiring about f/up -- had stent removed on 04/07. Will set up 3 jorge post op f/up. She is seeing gynecology at [facility] on 05/27, will try to coordinate appt w/ Dr. Carr on that day. Destiny Borrero MD documented in this encounterOhiohealth Grady Memorial Hospital06-29-2024 Procedure note* Fco Munoz MD - 04/10/2024 10:55 AM EDT Karen Zaidi is a 68 year old female who presents with s/p autotransplantation for cystoscopy and stent removal. A urinalysis was performed revealing no evidence of infection. The benefits, risks, alternatives of the cystoscopy procedure and personnel were discussed with thepatient, and verbal consent was obtained and the [...] orifices were visualized in their normal configuration withclear efflux. Significant trabeculation was not noted. Using a grasping forceps, Left autotransplant stent was removed without difficulty. At the conclusion of the procedure, the flexible cystoscope was removed atraumatically. The patienttolerated the procedure without complications. Patient was given standard post-procedure instructions, and was directed to complete the course of oral antibiotics and increase oral fluid intake as directed. ASSESSMENT: s/p autotransplantation PLAN: follow up as scheduled Allen Munoz MD [facility]06-29-2024 Procedure note* Allen Munoz MD - 04/10/2024 10:55 AM EDT Karen Zaidi is a 68 year old female who presents with s/p autotransplantation for cystoscopy and stent removal. A urinalysis was performed revealing no evidence of infection. The benefits, risks, alternatives of the cystoscopy procedure and personnel were discussed with thepatient, and verbal consent was obtained and the [...] orifices were visualized in their normal configuration withclear efflux. Significant trabeculation was not noted. Using a grasping forceps, Left autotransplant stent was removed without difficulty. At the conclusion of the procedure, the flexible cystoscope was removed atraumatically. The patienttolerated the procedure without complications. Patient was given standard post-procedure instructions, and was directed to complete the course of oral antibiotics and increase oral fluid intake as directed. ASSESSMENT: s/p autotransplantation PLAN: follow up as scheduled Allen Munoz MD documented in this encounterOhiohealth Grady Memorial Hospital06-26-2024 History of Present illness Narrative* Robel Lawrence RN - 04/07/2024 3:48 PM EDT UNIVERSAL PROTOCOL / SAFETY CHECKLIST Procedure to [...] applicable. Robel Lawrence RN documented in this encounterOhiohealth Grady Memorial Hospital06-26-2024 Nurse Note* Robel Lawrence RN - 04/07/2024 12:12 PM EDT The procedure started at ( Time Only): [...] the pain?) unknown Robel Lawrence RN [facility] Nurse Note* Robel Lawrence RN - 04/07/2024 12:12 PM EDT The procedure started at ( Time Only): [...] had the pain?) unknown Robel Lawrence RN * Pretty Rahman RN - 04/07/2024 10:56 AM EDT Actual procedure/procedure scheduled: Yes Performing provider/scheduled provider: Yes Patient was roomed in: Q9- 06 Refrigeration System Installer offered:Patient declines Patient arrived in the room [...] note for procedure details. documented in this encounterOhiohealth Grady Memorial Hospital06-26-2024 Nurse Note* Pretty Rahman RN - 04/07/2024 10:56 AM EDT Actual procedure/procedure scheduled: Yes Performing provider/scheduled provider: Yes Patient was roomed in: Q9- 06 Refrigeration System Installer offered:Patient declines Patient arrived in the room [...] See her note for procedure details. [facility]05-09-[facility] History of Present illness Narrative* Viet Carr MD - 02/19/2024 3:45 PM EDT REASON FOR VISIT: Pre-op discussion HPI: 68 [...] the lower extremity. No evidence of deep orsuperficial venous reflux. Aortic Duplex 04/25/2023 - Aortic ectasia in the infrarenal aorta with the maximum diameter of 2.8 cm and evidence for atherosclerotic disease without significant stenosis in the aortoiliac arteries. Venogram June 18, 2023 -IVUS intravascular ultrasound the presence of left renal vein narrowing. - Manometry was not performed due to technical problems in the test lab technician. Venous duplex US - UE 07/18/23: - [...] (FLONASE) 50 mcg/actuation nasal spray Use 1 Norco in the nose as needed for cold/allergy [...] surgery Viet Carr MD documented in this encounterOhiohealth [facility]ady [facility]05-09-2024 Instructions* Patient Instructions* Asia Sawyer APRN.SUMMER ANALYST - 02/19/2024 1:32 PM EDT PATIENT PREOPERATIVE INSTRUCTIONS Viet Carr MD has scheduled you for your procedure at this surgery center: If no call by 4pm the day before surgery, please call this number. [facility] [place] Scheduling Office: [phone] --[address] [place] [address]. Please read below carefully for your personalized [...] Procedures: - YOU MUST HAVE A RESPONSIBLE SUPERVISOR METAL FURNITURE ASSEMBLY TAKE YOU HOME. A PENSION AGENT OR SENIOR COUNSEL CANNOT BE MADE A RESPONSIBLE SUPERVISOR METAL FURNITURE ASSEMBLY. - We recommend that a responsible person stays with you overnight to take care of you. - You cannot stay in a hotel alone after outpatient surgery. You will not be permitted to have yoursurgery, if you do not have someone to take care of you. Arrival Time for Surgery: - To obtain your arrival time for surgery, call your physician's office the day before your surgery. - If your surgery is scheduled for Friday, call the Friday before. Your surgeon s project scheduler will tell you what time to call the office. - If you have not reached the departmental project scheduler by 5 P.M., call [phone] after 5 P.M. the day before your surgery. Please be aware that emergency situations arise, which may delay or change your surgical time. If this happens, we will notify you as soon as possible and regret any inconvenience. If you already have an Advance Directive, please fax a copy to [phone] or email to for it to be added to your chart. If you do not have an Advance Directive, you can find the appropriate form and more information at [email or web address]. We recommend that youcomplete the Advance Directive form found on the website and bring it with you the day of your surgery. It can be witnessed and scanned into your chart that day. Asia Sawyer APRN.CNP documented in this encounterOhiohealth Grady [facility]05-09-2024 History and physical note * Asia Sawyer APRN.CNP - 02/19/2024 1:20 PM EDT HISTORY AND PHYSICAL EXAMINATION SERVICE DATE: 02/19/2024 SERVICE TIME: 1:17 PM PRIMARY CARE PHYSICIAN: Ammon Lucas MD Assessment Patient has the following medical conditions which may affect elzbieta-operative course: 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 Chuloonawick's syndrome Sp styloidectomy Other hyperlipidemia Managed on [...] no. Thick neck: no Chen present: no Microretrognathia/Micronagthia/Recessed Chin: No DENTAL Additional comments: Total implants- cubic circonium. II - ANESTHESIA PLAN Anesthetic plan additional comments: *PACC/TCI - anesthesia choice. Beta Amber Monitoring Plan Post Procedure Analgesic Plan Prepared for Surgery: optimally prepared for surgery, pending [see comment]. EKG, T&S, Con Abo,PT, PTT, CMP, CBC ordered by surgical service [...] Abdominal Aortic Aneurysm (Aaa) Without Rupture (Hcc) Chuloonawick's Syndrome Other Hyperlipidemia Ovarian Varices Nutcracker Phenomenon [...] Positive for: peripheral neuropathy (neurontin). Negative for: QUARTER SUPERVISOR tumor, delirium, dementia, headaches, multiple sclerosis, seizures, TIA and strokes. Respiratory: Allergies - singulair +lung nodule - routine surveillance Negative for: COPD, current cough, dyspnea, home oxygen, pneumonia within 6 weeks, tobacco use, URI< 2 weeks and obstructive sleep apnea.Asthma: singulair. [...] nephrolithiasis, renal failure and urinary tract infection. 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 Instructions Given to Patient: Instructions located in the after visit summary. Patient given verbal and written preop instructions and voices comprehension and compliance. SIGNATURE: Asia Sawyer APRN.CNP PATIENT NAME: Karen Zaidi DATE: February 19, 2024 TIME: 1:54 PM PAGER/CONTACT #: [facility]05-09-[facility]24 History and physical note* Asia Sawyer APRN.CNP - 02/19/2024 1:20 PM EDT HISTORY AND PHYSICAL EXAMINATION SERVICE DATE: 02/19/2024 SERVICE TIME: 1:17 PM PRIMARY CARE PHYSICIAN: Ammon Lucas MD Assessment Patient has the following medical conditions which may affect elzbieta-operative course: 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 Chuloonawick's syndrome Sp styloidectomy Other hyperlipidemia Managed on [...] no. Thick neck: no Chen present: no Microretrognathia/Micronagthia/Recessed Chin: No DENTAL Additional comments: Total implants- cubic circonium. II - ANESTHESIA PLAN Anesthetic plan additional comments: *PACC/TCI - anesthesia choice. Beta Amber Monitoring Plan Post Procedure Analgesic Plan Prepared for Surgery: optimally prepared for surgery, pending [see comment]. EKG, T&S, Con Abo,PT, PTT, CMP, CBC ordered by surgical service [...] Abdominal Aortic Aneurysm (Aaa) Without Rupture (Hcc) Chuloonawick's Syndrome Other Hyperlipidemia Ovarian Varices Nutcracker Phenomenon [...] Positive for: peripheral neuropathy (neurontin). Negative for: QUARTER SUPERVISOR tumor, delirium, dementia, headaches, multiple sclerosis, seizures, TIA and strokes. Respiratory: Allergies - singulair +lung nodule - routine surveillance Negative for: COPD, current cough, dyspnea, home oxygen, pneumonia within 6 weeks, tobacco use, URI< 2 weeks and obstructive sleep apnea.Asthma: singulair. [...] nephrolithiasis, renal failure and urinary tract infection. 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 Instructions Given to Patient: Instructions located in the after visit summary. Patient given verbal and written preop instructions and voices comprehension and compliance. SIGNATURE: Asia Sawyer APRN.CNP PATIENT NAME: Karen Zaidi DATE: February 19, 2024 TIME: 1:54 PM PAGER/CONTACT #: documented in this encounterOhiohealth Grady [facility] Hospital04-30-2024 History of Present illness Narrative* Sarah Godwin MD - 02/10/2024 9:45 AM EDT [facility] - [facility] [address] [place] [address], [address] [place] [id number] SUBJECTIVE: Patient ID: Karen Zaidi is a [...] autotransplantation of kidney on 03[facility]. She uses Flonase and singular during her symptomatic times. 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 Osteoporosis Pelvic congestion syndrome Peripheral vascular disease ([facility]) Seasonal allergies Submandibular gland swelling 11/12/2023 Visual impairment glasses Past Surgical History: Procedure Laterality Date CATARACT EXTRACTION Bilateral 2017 CHOLECYSTECTOMY COLONOSCOPY COLONOSCOPY N/A 07/23/2018 Performed by Orquidea Christine DO at [facility] DENTAL SURGERY 07/2013 implants Diagnostic cerebral angiogram N/A 03/31/2020 Performed by Melissa Morillo MD at [facility] CARDIAC CATH LABS DIAGNOSTIC VENOGRAM OF IVC AND ILEOCABLE, LEFT RENAL VEIN, SELECTIVE LEFT OVARIAN VEIN CONTRAST ANDIVUS VENOGRAMS N/A 07/25/2023 Performed by Erendira Armijo DO at [facility] SPECIAL PROC dilation rt submandibular duct and steroid irrigation Right 11/24/2023 Performed by Sarah Godwin MD at [facility] STONE SURGERY 2019? KNEE CARTILAGE SURGERY MOLE REMOVAL 11/10/2023 right breast OTHER SURGICAL HISTORY 08/31/2020 cranial base ( cranial styloidectomy) 05/2020 also OTHER SURGICAL HISTORY 06/18/2023 venogram OTHER SURGICAL HISTORY 09/09/2023 DIagnostic venogram TUBAL LIGATION Vascular Invasive Diagnostic venogram with IVUS and the ability to measure pressure gradients Bilateral 06/18/2023 Performed by Erendira Armijo DO at [facility] CARDIAC CATH LABS Family History [...] by mouth every 6 (six) hours asneeded. ibuprofen (ADVIL,MOTRIN) 200 mg tablet Take 2 [...] or concerns: . Non-emergent messages received through [employer] may take up to 2 business days [...] this chart were generated using voice recognition [employer] dictation software. Although every effort was made to ensure the accuracy of this automated alterations workroom clerk, some errors in alterations workroom clerk may have occurred. documented in this encounterTwin City HospitalInfinity Wireless Ltd04-30-2024 Instructions* Patient Instructions* Ambika Martin - 02/10/2024 9:45 AM EDT [...] or concerns: . Non-emergent messages received through [employer] may take up to 2 business days for a response. documented in this encounterTwin City HospitalBenitec Ltd [facility] [id number] Miscellaneous Notes* Telephone Encounter - Manuela Muñoz - 01/13/2024 10:27 AM EDT [facility] email message to cancel surgery being done robotic procedure instead at the Clinic. documented in this encounterOhiohealth Grady [facility]03-21-2024 Miscellaneous Notes* Telephone Encounter - Rina Fox MD - 01/01/2024 9:43 AM EDT Sounds good thanks * Telephone Encounter - Estephania Felton - 01/01/2024 9:24 AM EDT Mrs. Zaidi called to let Dr. Fox know that Urology is able to do the proposed procedure robotically and that she is scheduled to have it done on March 02. Estephania Mojica Analyst Food And Beverage documented in this encounterOhiohealth Grady [facility]03-14-2024 History of Present illness Narrative* Viet Carr MD - 12/25/2023 4:00 PM EDT REASON FOR VISIT: consult from Dr. Deleon [...] the lower extremity. No evidence of deep orsuperficial venous reflux. Aortic Duplex 04/25/2023 - Aortic ectasia in the infrarenal aorta with the maximum diameter of 2.8 cm and evidence for atherosclerotic disease without significant stenosis in the aortoiliac arteries. Venogram June 18, 2023 -IVUS intravascular ultrasound the presence of left renal vein narrowing. - Manometry was not performed due to technical problems in the test lab technician. Venous duplex US - UE 07/18/23: - [...] (FLONASE) 50 mcg/actuation nasal spray Use 1 Norco in the nose as needed for cold/allergy [...] surgery Viet Carr MD documented in this encounterOhiohealth Grady [facility] Hospital03-11-2024 History of Present illness Narrative* Radu Deleon MD - 12/22/2023 2:30 PM EDT Images from the original note were not included. PATIENT: Karen Zaidi [id number] NEW PATIENT REFERRING MD: Rina Fox 12/20/2023 [...] pelvis region (feels like sitting on cucumber) Hertel this started one year ago. Thought it [...] notice the pain over the past year. Shecomplains of pain located in the left flank, perineum, and pelvis that is worse after sexual intercourse. She states that her pain is improved with laying down or elevating her legs. with PMH significant for Chuloonawick Syndrome, jugular vein stenosis (asymptomatic), HLD, nutcracker [...] fluticasone (FLONASE) 50 mcg/actuation nasal spray 1 Norco, NASAL, NEEDED, Take in allergy season
gabapentin [...] the lower extremity. No evidence of deep orsuperficial venous reflux. Aortic Duplex 04/25/2023 - Aortic ectasia in the infrarenal aorta with the maximum diameter of 2.8 cm and evidence for atherosclerotic disease without significant stenosis in the aortoiliac arteries. Venogram June 18, 2023 -IVUS intravascular ultrasound the presence of left renal vein narrowing. - Manometry was not performed due to technical problems in the test lab technician. Venous duplex US - UE 07/18/23: - [...] for renal vein transposition (msg sent through [employer]) Scribe Attestation: By signing my name below, [...] Deleon MD [facility] Urolog[facility] On[facility] [place] [facility] Medical Decision Making: Problems: Moderate: New problem with uncertain prognosis Data: Unique test result(s) reviewed: 1 Unique test(s) ordered: 1 Risk: Moderate: Moderate risk from testing/treatment Medical Decision Making Level: 4 - Moderate documented in this encounterOhiohealth Grady Memorial Hospital03-11-2024 Nurse Note* Birgit Cook OCCA - 12/22/2023 1:47 PM EDTSummary: Bladder Scan Patient PVR recorded: 0 mL LUCIAN Rodriguez documented in this encounterOhiohealth Grady [facility] Hospital03-07-2024 History of Present illness Narrative* Rina Fox MD - 12/18/2023 12:00 PM EST Images from the original note were not included. [facility] [place] DEPARTMENT OF VASCULAR SURGERY OUTPATIENT VISIT DATE [...] notice the pain over the past year. Shecomplains of pain located in the left flank, perineum, and pelvis that is worse after sexual intercourse. She states that her pain is improved with laying down or elevating her legs. with PMH significant for Chuloonawick Syndrome, jugular vein stenosis (asymptomatic), HLD, nutcracker [...] the lower extremity. No evidence of deep orsuperficial venous reflux. Aortic Duplex 04/25/2023 - Aortic ectasia in the infrarenal aorta with the maximum diameter of 2.8 cm and evidence for atherosclerotic disease without significant stenosis in the aortoiliac arteries. Venogram June 18, 2023 -IVUS intravascular ultrasound the presence of left renal vein narrowing. - Manometry was not performed due to technical problems in the test lab technician. Venous duplex US - UE 07/18/23: - [...] (FLONASE) 50 mcg/actuation nasal spray Use 1 Norco in the nose as needed for cold/allergy [...] pain or shortness of breath. No prior cardiachistory. No additional cardiac risk stratification needed. - Plan for 01/21/2024. Patient is in agreement with the above plan. All questions answered. SIGNATURE: Rina Fox MD PATIENT NAME: Karen Zaidi DATE: December 18, 2023 TIME: 8:49 AM documented in this encounterOhiohealth Grady [facility] Hospital03-01-2024 Miscellaneous Notes* Telephone Encounter - Ely Hodge - 12/12/2023 3:53 PM EST Appt scheduled 12/18/[address] Fox * Telephone Encounter - Lulu Hernandez RN - 12/11/2023 12:[address] Cole office documentation Called and informed patient that Dr. Camp and Dr. Hdz recommended surgical bypass for the left renal vein stenosis, thus she needs to schedule the appointment with Vascular Surgery now. She had no further questions . * Telephone Encounter - Estephania Felton - 12/11/2023 8:25 AM EST Mrs. Zaidi was referred to Vascular Surgery by Dr. Camp for Nutcracker phenomenon of the renal vein. She was referred back to Dr. Camp for pelvic congestion but the patient is confused because she wasreferred to VS by Dr. Camp. I will ask the triage nurse to review her records so she can be scheduled appropriately. 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 Osteoporosis Pelvic congestion syndrome Peripheral vascular disease ([facility]-HCC) Seasonal allergies Submandibular gland swelling 11/12/2023 Visual impairment glasses Past Surgical History: Procedure Laterality Date CATARACT EXTRACTION Bilateral 2018 CHOLECYSTECTOMY COLONOSCOPY COLONOSCOPY N/A 07/23/2018 Performed by Orquidea Christine DO at [facility] DENTAL SURGERY 07/2013 implants Diagnostic cerebral angiogram N/A 03/31/2020 Performed by Melissa Morillo MD at [facility] CARDIAC CATH LABS DIAGNOSTIC VENOGRAM OF IVC AND ILEOCABLE, LEFT RENAL VEIN, SELECTIVE LEFT OVARIAN VEIN CONTRAST ANDIVUS VENOGRAMS N/A 07/25/2023 Performed by Erendira Armijo DO at [facility] SPECIAL PROC dilation rt submandibular duct and steroid irrigation Right 11/24/2023 Performed by Sarah Godwin MD at [facility] KIDNEY STONE SURGERY 2019? KNEE CARTILAGE SURGERY MOLE REMOVAL 11/10/2023 right breast OTHER SURGICAL HISTORY 08/31/2020 cranial base ( cranial styloidectomy) 05/2020 also OTHER SURGICAL HISTORY 06/18/2023 venogram OTHER SURGICAL HISTORY 09/09/2023 DIagnostic venogram TUBAL LIGATION Vascular Invasive Diagnostic venogram with IVUS and the ability to measure pressure gradients Bilateral 06/18/2023 Performed by Erendira Armijo DO at [facility] CARDIAC CATH LABS Family History [...] by mouth every 6 (six) hours asneeded. ibuprofen (ADVIL,MOTRIN) 200 mg tablet Take 2 [...] to ensure the accuracy of this automated alterations workroom clerk, some errors in alterations workroom clerk may have occurred. Matthew Ramirez PA-C 12/02/23 1258 documented in this encounterTuscarawas Hospital02-08-2024 Miscellaneous Notes* Telephone Encounter - Oliver Mei - 11/20/2023 12:44 PM EST PATIENT NOTIFIED WITH SURGERY TIME OF 12:15 . TOLD TO ARRIVE 2 HOURS PRIOR. documented in this encounterTuscarawas Hospital02-08-2024 Telephone encounter Note* Telephone Encounter - Oliver Hurley - 11/20/2023 12:44 PM EST PATIENT NOTIFIED WITH SURGERY TIME OF 12:15 . TOLD TO ARRIVE 2 HOURS PRIOR. [facility] History and physical note* Augustina Goodman Jose Guadalupe, SHARON-SUMMER ANALYST - 11/12/2023 1:15 PM EST PRE-ADMISSION TESTING HISTORY AND PHYSICAL EXAM DATE: 11/12/23 PCP: AMMON LUCAS MD HISTORY OF PRESENT ILLNESS: Karen Zaidi, a 68 y.o. White or female, presents to [facility] for a pre-surgical H&P. The patient has been diagnosed with Submandibular gland swelling [R60.0] . Patient has a history of Chuloonawick Syndrome and had bilateral surgery with Dr. De Leon at [place]. Patient has had intermittent swelling of the right submandibular gland. Patient has been treated with antibiotics without anyimprovement. Patient had a CT neck and soft tissues on 08/12/2023 which showed Slightly prominentand questionably hyperenhancing submandibular glands without other indication [...] History: Diagnosis Date AAA (abdominal aortic aneurysm) ([facility]) Angina pectoris ([facility]) Aortic aneurysm ([facility]) Arthritis Cataract Chest pain Chronic kidney disease stone Chronic rhinitis Coronary artery disease Dental disease implants Dizziness Dysphagia, pharyngeal phase Chuloonawick's syndrome Fractures left arm 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 Osteoporosis Pelvic congestion syndrome Peripheral vascular disease ([facility]) Seasonal allergies Submandibular gland swelling 11/12/2023 Visual impairment glasses PAST SURGICAL HISTORY: Past Surgical History: Procedure Laterality Date CATARACT EXTRACTION Bilateral 2018 CHOLECYSTECTOMY COLONOSCOPY COLONOSCOPY N/A 07/23/2018 Performed by Orquidea Christine DO at [facility] DENTAL SURGERY 07/2013 implants Diagnostic cerebral angiogram N/A 03/31/2020 Performed by Melissa Morillo MD at [facility] CARDIAC CATH LABS DIAGNOSTIC VENOGRAM OF IVC AND ILEOCABLE, LEFT RENAL VEIN, SELECTIVE LEFT OVARIAN VEIN CONTRAST ANDIVUS VENOGRAMS N/A 07/25/2023 Performed by Erendira Armijo DO at [facility] SPECIAL PROC KIDNEY STONE SURGERY 2019? KNEE CARTILAGE SURGERY MOLE REMOVAL 11/10/2023 right breast OTHER SURGICAL HISTORY 08/31/2020 cranial base ( cranial styloidectomy) 05/2020 also OTHER SURGICAL HISTORY 06/18/2023 venogram OTHER SURGICAL HISTORY 09/09/2023 DIagnostic venogram TUBAL LIGATION Vascular Invasive Diagnostic venogram with IVUS and the ability to measure pressure gradients Bilateral 06/18/2023 Performed by Erendira Armijo DO at [facility] CARDIAC CATH LABS FAMILY HISTORY: [...] total) by mouth 3 (three) times a dayIndications: neuropathic pain. (Patient not taking: Reported on [...] Constitutional: Negative. HENT: Seasonal allergies, chronic rhinitis, Chuloonawick syndrome Eyes: Negative. Respiratory: Negative for apnea, [...] 170.2 cm (5' 7 ) Wt 60.6 kg(133 lb 9.6 oz) SpO2 98% BMI 20.92 [...] the most recent lab values available in [facility] at the time ofthe office visit and additional labs may have been drawn since that time. ASSESSMENT / DIAGNOSIS: Submandibular gland swelling [R60.0] PLAN: Karen Zaidi is scheduled for Linked Surgery: Sialendoscopy Right Submandibular Duct - Right on 11/24/[address] Godwin. Augustina Shi APRN-MARIBEL 11/12/23 1442 [employer] Work Phone: 1(796) 988-238501-31-2024 History and physical note* Augustina Shi, RETAIL SUPPORT SPECIALIST-SUMMER ANALYST - 11/12/2023 1:15 PM EST PRE-ADMISSION TESTING HISTORY AND PHYSICAL EXAM DATE: 11/12/23 PCP: AMMON LUCAS MD HISTORY OF PRESENT ILLNESS: Karen Zaidi, a 68 y.o. White or female, presents to [facility] for a pre-surgical H&P. The patient has been diagnosed with Submandibular gland swelling [R60.0] . Patient has a history of Chuloonawick Syndrome and had bilateral surgery with Dr. De Leon at [place]. Patient has had intermittent swelling of the right submandibular gland. Patient has been treated with antibiotics without anyimprovement. 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 Osteoporosis Pelvic congestion syndrome Peripheral vascular disease ([facility]) Seasonal allergies Submandibular gland swelling 11/12/2023 Visual impairment glasses PAST SURGICAL HISTORY: Past Surgical History: Procedure Laterality Date CATARACT EXTRACTION Bilateral 2018 CHOLECYSTECTOMY COLONOSCOPY COLONOSCOPY N/A 07/23/2018 Performed by Orquidea Christine DO at [facility] 07/2013 implants Diagnostic cerebral angiogram N/A 03/31/2020 Performed by Melissa Morillo MD at [facility] CARDIAC CATH LABS DIAGNOSTIC VENOGRAM OF IVC AND ILEOCABLE, LEFT RENAL VEIN, SELECTIVE LEFT OVARIAN VEIN CONTRAST ANDIVUS VENOGRAMS N/A 07/25/2023 Performed by Erendira Armijo DO at [facility] SPECIAL PROC KIDNEY STONE SURGERY 2019? KNEE CARTILAGE SURGERY MOLE REMOVAL 11/10/2023 right breast OTHER SURGICAL HISTORY 08/31/2020 cranial base ( cranial styloidectomy) 05/2020 also OTHER SURGICAL HISTORY 06/18/2023 venogram OTHER SURGICAL HISTORY 09/09/2023 DIagnostic venogram TUBAL LIGATION Vascular Invasive Diagnostic venogram with IVUS and the ability to measure pressure gradients Bilateral 06/18/2023 Performed by Erendira Armijo DO at [facility] CARDIAC CATH LABS FAMILY HISTORY: [...] total) by mouth 3 (three) times a dayIndications: neuropathic pain. (Patient not taking: Reported on [...] Constitutional: Negative. HENT: Seasonal allergies, chronic rhinitis, Chuloonawick syndrome Eyes: Negative. Respiratory: Negative for apnea, [...] 170.2 cm (5' 7 ) Wt 60.6 kg(133 lb 9.6 oz) SpO2 98% BMI 20.92 [...] the most recent lab values available in [facility] at the time ofthe office visit and additional labs may have been drawn since that time. ASSESSMENT / DIAGNOSIS: Submandibular gland swelling [R60.0] PLAN: Karen Zaidi is scheduled for Linked Surgery: Sialendoscopy Right Submandibular Duct - Right on 11/24/[address] Godwin. ED Jean 11/12/23 1442 [facility] Instructions* Patient Instructions* Marielle Rivero RN - 11/12/2023 1:15 PM EST Your surgery/procedure is scheduled at [facility] on 11/24/2011 at per surgeon Arrival Timeper surgeon [facility] Address: [address] [place] [address] Park in [address]1 Parking lot located on [facility]. Report to the Entrance B. Check in at the information desk the surgery. The waiting room located on the second floor. If you have any questions prior to surgery, please call Pre-Admission Clinic at [phone] between 7:30 am and 4:30 pm Friday through Friday. If you have questions the morning of surgery, please call the Pre-op Department at [phone]. PLEASE FOLLOW THESE INSTRUCTIONS OR YOUR SURGERY [...] such as Coumadin, Heparin, aspirin, Plavix, and non- steroidal anti-inflammatory drugs (NSAIDS) affect the body's blood clotting capabilities. These medications are usuallystopped 3-7 days prior to surgery. Please contact [...] would like to schedule [facility], please call [phone] ([phone]). Do not use lotions, creams, powders, perfume, make up, cologne or after-shaves day of surgery. Remove ALL jewelry including wedding rings, body piercings,hair extensions that contain metal, nailpolish, make-up, and contact lens. You may brush [...] items and leave them in the car untilyou are taken to your room after surgery. [...] following some types of surgeries involving the eyes,ears, sinuses and throat. Always follow your doctor's [...] RIGHTS AND RESPONSIBILITIES As a patient at [facility], you have the right to: Receive medical care and be informed of who is taking care of you Be treated with dignity and respect Have a family member/manufacturing sales representative of choice and your physician notified of your admission Receive information and actively participate in decisions about your care and treatment Refuse care, treatment and services Decide who may provide your support and speak for you Access christian and spiritual services Participate in ethical issues [...] of hospital charges and payment methods Patient/patient manufacturing sales representative responsibilities are to: Provide information [...] as promptly as possible documented in this [facility]12[facility]27-[facility]23 Evaluation note* Encounter Date Diagnosis Assessment Notes Treatment Notes Treatment Clinical Notes Sep, Abnormal chest CT (ICD-10 - R93.89) [facility] Other [id number] History of Present illness Narrative* Sarah Godwin MD - 09/30/2023 3:15 PM EST [facility] - ENT [address] [place] [address], [address] [facility] [id number] SUBJECTIVE: Patient ID: Karen Zaidi is a [...] submandibular glands. She has a history of Chuloonawick Syndrome after bilateral surgery performed by Dr. De Leon at [place]. She states that she still had intermittent swelling in the right side of the jaw near the site of previous surgery. She also has a sensation of something being present in the right side of the jaw, which she has been told in the past may be secondary to nerve damage. HISTORY: Past Medical History: Diagnosis Date AAA (abdominal aortic aneurysm) ([facility]) Angina pectoris (CMS-HCC) Aortic aneurysm (CMS-HCC) Cataract Chest pain Chronic kidney disease stone Chronic rhinitis Dental disease implants Dysphagia, pharyngeal phase Chuloonawick's syndrome Fractures left arm Headache Jugular vein stenosis Osteoporosis Pelvic congestion syndrome Peripheral vascular disease (CMS-HCC) Seasonal allergies Visual impairment Past Surgical History: Procedure Laterality Date CATARACT EXTRACTION Bilateral 2018 CHOLECYSTECTOMY COLONOSCOPY COLONOSCOPY N/A 07/23/2018 Performed by Orquidea Christine DO at [facility] 07/2013 implants Diagnostic cerebral angiogram N/A 03/31/2020 Performed by Melissa Morillo MD at [facility] CARDIAC CATH LABS DIAGNOSTIC VENOGRAM OF IVC AND ILEOCABLE, LEFT RENAL VEIN, SELECTIVE LEFT OVARIAN VEIN CONTRAST ANDIVUS VENOGRAMS N/A 07/25/2023 Performed by Erendira Armijo DO at [facility] SPECIAL PROC KIDNEY STONE SURGERY 2019? KNEE CARTILAGE SURGERY OTHER SURGICAL HISTORY 08/31/2020 cranial base ( cranial styloidectomy) 05/2020 also OTHER SURGICAL HISTORY 06/18/2023 venogram TUBAL LIGATION Vascular Invasive Diagnostic venogram with IVUS and the ability to measure pressure gradients Bilateral 06/18/2023 Performed by Erendira Armijo DO at [facility] CARDIAC CATH LABS Family History [...] nodules or obtain referral to a local body repairer from her PCP. We discussed endoscopic surgical intervention involving endoscoping approach to the right Sim'sduct for dilation and steroid irrigation and for assessment for any other abnormalities. I recommended right sialendoscopy for therapeutic dilation of the Warthin's duct on the right and possible stone retrieval and infiltration of steroid. Indications, risks, benefits, and alternatives were discussed. Patient may call [facility] at [phone] to schedule surgery. We discussed that she may benefit from physical therapy for the right temporomandibular joint. Follow up post op. The patient will contact my office if there are any additional questions or concerns: . Non-emergent messages received through [employer] may take up to 2 business days [...] this chart were generated using voice recognition [employer] dictation software. Although every effort was made to ensure the accuracy of this automated alterations workroom clerk, some errors in alterations workroom clerk may have occurred. documented in this encounterSt. Albans HospitalLavaboom [id number] Instructions* Patient Instructions* Deandre Goodwin - 09/30/2023 [...] were discussed. Patient may call [facility] at [phone] to schedule surgery. We discussed that she may benefit from physical therapy for the right temporomandibular joint. Follow up post op. The patient will contact my office if there are any additional questions or concerns: . Non-emergent messages received through [employer] may take up to 2 business days for a response. documented in this [facility] [id number] Evaluation note* Encounter Date Diagnosis Assessment Notes Treatment Notes Treatment Clinical Notes Aug, Pelvic congestion syndrome (ICD-10 - N94.89) Referral entered as pt request. Aug, Renal vein occlusion (ICD-10 - I82.3) Referral entered to Dr. Camp. 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 [facility] Other 09-20-2023 Evaluation note* Encounter Date Diagnosis Assessment Notes Treatment Notes Treatment Clinical Notes Jun, Neuropathic pain (ICD-10 - M79.2) Previously on med. 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 Declines referral back to ENT for potential R PE tube. Discussed nasal spray and OTC decongestants that could help discomfort. [facility] Other 08-25-2023 Evaluation note* Encounter Date Diagnosis Assessment Notes Treatment Notes Treatment Clinical Notes May, Thrush (ICD-10 - B37.0) Finish nystatin as prescribed May, Abdominal 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, unspecified part (ICD-10 - I71.40) Continue screening a Jobst. [facility] Other 08-17-2023 Evaluation note* Encounter Date Diagnosis [...] understanding and is agreeable to treatment plan [facility] Other 05-02-2023 Evaluation note* Encounter Date Diagnosis [...] understanding and is agreeable with treatment plan. [facility] Other 05-02-2023 Evaluation note* Encounter Date Diagnosis Assessment Notes Treatment Notes Treatment Clinical Notes February, Nephrolithiasis (ICD-10 - N20.0) Discussed differential - agrees to imaging and She is established with Dr. Monroe. They advised she go to ER or come here for imaging and assessment. [facility] Other 02-10-2023 Evaluation note* Encounter Date Diagnosis [...] understanding and is agreeable to treatment plan [facility] Other 01-19-2023 Evaluation note* Encounter Date Diagnosis Assessment Notes Treatment Notes Treatment Clinical Notes Oct, Allergic reaction, subsequent encounter (ICD-10 - T78.40XD) Karen Vallejozandra SILVERMAN [facility] Other 10-16-2022 Evaluation note* Encounter Date Diagnosis [...] understanding and is agreeable to treatment plan [facility] Other 12-03-2021 Evaluation note* Encounter Date Diagnosis Assessment Notes Treatment Notes Treatment Clinical Notes Sep, Herpes zoster without complication (ICD-10 - B02.9) Take the valacyclovir as prescribed until gone. Use the viscous lidocaine to the rash as needed for pain. Follow-up with your family physician if no improvement in 2 to 3 days. [facility] Other 10-17-2021 Evaluation note* Encounter Date Diagnosis Assessment Notes Treatment Notes Treatment Clinical Notes Jul, Herpes zoster without complication (ICD-10 - B02.9) [facility] Other Evaluation noteNo InformationNort [employer] Other Evaluation note* Diagnosis Nutcracker phenomenon of renal vein- Primary [facility] Diagnosis Nutcracker phenomenon of renal vein- Primary Family history of aneurysm Family history of other condition Aortic ectasia, abdominal (HCC) Abdominal aortic ectasia documented in this encounter [facility]* Diagnosis Nutcracker phenomenon of renal vein- Primary Preop testing Preoperative examination, unspecified Nutcracker phenomenon of renal vein Preop testing Preoperative examination, unspecified documented in this encounter [facility]* Diagnosis 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 Preop testing Preoperative examination, unspecified documented [facility]* Diagnosis Screening for genitourinary condition Screening for other and unspecified genitourinary condition Nutcracker phenomenon of renal vein Preop testing Preoperative examination, unspecified documented [facility]* Diagnosis Screening for genitourinary condition Screening for other and unspecified genitourinary condition Nutcracker phenomenon of renal vein Preop testing Preoperative examination, unspecified documented in this encounter [facility]* Diagnosis Nutcracker phenomenon of renal vein- Primary Abnormal coagulation profile Nutcracker phenomenon of renal vein documented [facility] this encounter [facility]* Diagnosis Preop examination- Primary Preoperative examination, unspecified 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 [facility]* Diagnosis Encounter for aftercare following kidney transplant- Primary Aftercare following organ transplant Malnutrition of moderate degree (HCC) Malnutrition of moderate degree documented [facility] this encounter [facility]* Diagnosis Flank pain- Primary Abdominal pain, unspecified site documented in this encounter [facility]* Diagnosis Preop examination- Primary Preoperative examination, unspecified 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 Other disorder of muscle, ligament, and fascia Other hyperlipidemia Ovarian varices Nutcracker phenomenon of renal vein Narcotic drug use Sinus bradycardia on ECG Other specified cardiac dysrhythmias Screening for genitourinary condition Screening for other and unspecified genitourinary condition documented [facility] this encounter [facility]* Diagnosis Preop examination- Primary Preoperative examination, unspecified 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 Other disorder of muscle, ligament, and fascia Other hyperlipidemia Ovarian varices Nutcracker phenomenon of renal vein Narcotic drug use Sinus bradycardia on ECG Other specified cardiac dysrhythmias High-tone pelvic floor dysfunction- Primary Other specified disorders of female genital organs 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 Unspecified symptom associated with female genital organs documented [facility] this encounter [facility]* Diagnosis Preop examination- Primary Preoperative examination, unspecified 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 Other disorder of muscle, ligament, and [...] myositis, unspecified documented in this encounter [facility]* Diagnosis Preop examination- Primary Preoperative examination, unspecified 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 Other disorder of muscle, ligament, and fascia Other hyperlipidemia Ovarian varices Nutcracker phenomenon of renal vein Narcotic drug use Sinus bradycardia on ECG Other specified cardiac dysrhythmias High-tone pelvic floor dysfunction Other specified disorders of female genital organs documented [facility] this [facility]* Diagnosis Preop examination- Primary Preoperative examination, unspecified 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 Other disorder of muscle, ligament, and fascia Other hyperlipidemia Ovarian varices Nutcracker phenomenon of renal vein Narcotic drug use Sinus bradycardia on ECG Other specified cardiac dysrhythmias High-tone pelvic floor dysfunction- Primary Other specified disorders of female genital organs documented [facility] this [facility]* Diagnosis Preop examination- Primary Preoperative examination, unspecified 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 Other disorder of muscle, ligament, and fascia Other hyperlipidemia Ovarian varices Nutcracker phenomenon of renal vein Narcotic drug use Sinus bradycardia on ECG Other specified cardiac dysrhythmias High-tone pelvic floor dysfunction Other specified disorders of female genital organs documented in this encounter [facility]* Diagnosis Preop examination- Primary Preoperative examination, unspecified 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 Other disorder of muscle, ligament, and fascia Other hyperlipidemia Ovarian varices Nutcracker phenomenon of renal vein Narcotic drug use Sinus bradycardia on ECG Other specified cardiac dysrhythmias Pelvic pain in female- Primary Unspecified symptom associated with female genital organs documented [facility] encounter [facility]* Diagnosis Pulmonary nodule- Primary Other diseases of lung, not elsewhere classified [facility] Diagnosis Preop examination- Primary Preoperative examination, unspecified 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 Other disorder of muscle, ligament, and fascia Other hyperlipidemia Ovarian varices Nutcracker phenomenon of renal vein Narcotic drug use Sinus bradycardia on ECG Other specified cardiac dysrhythmias Abnormal finding of diagnostic imaging- Primary Other nonspecific (abnormal) findings on radiological and other examinations of body structure documented [facility] this encounter [facility]* Diagnosis Submandibular gland swelling- Primary Chronic sialoadenitis Sensorineural hearing loss (SNHL), bilateral [facility] Diagnosis Chronic sialoadenitis- Primary [facility] Diagnosis Submandibular gland swelling Chronic sialoadenitis Preop testing- Primary Unspecified pre-operative examination Hearing disorder retrocochlear Unspecified sensorineural hearing loss Submandibular gland swelling Chronic sialoadenitis [facility]* Diagnosis Submandibular gland swelling- Primary Chronic sialoadenitis [facility]* Diagnosis Hyperlipidemia, unspecified hyperlipidemia type- Primary [facility]* Diagnosis Well woman exam with routine gynecological exam Routine gynecological examination Breast cancer screening by mammogram Postmenopausal state Asymptomatic postmenopausal status (age-related) (natural) [facility] Diagnosis Preop examination- Primary Preoperative examination, unspecified 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 Other disorder of muscle, ligament, and fascia Other hyperlipidemia Ovarian varices Nutcracker phenomenon of renal vein Narcotic drug use Sinus bradycardia on ECG Other specified cardiac dysrhythmias High-tone pelvic floor dysfunction- Primary Other specified disorders of female genital organs Trigger point of abdomen Myalgia, other site Other osteoporosis without current pathological fracture [facility]* Diagnosis Preop examination- Primary Preoperative examination, unspecified Pararenal abdominal 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 Other disorder of muscle, ligament, and fascia Other hyperlipidemia Ovarian varices Nutcracker phenomenon of renal vein Narcotic drug use Sinus bradycardia on ECG Other specified cardiac dysrhythmias Primary osteoarthritis of right knee Primary localized osteoarthrosis, lower leg Derangement of unsp meniscus due to old tear/inj, right knee documented [facility]* Diagnosis Preop examination- Primary Preoperative examination, unspecified Pararenal abdominal 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 Other disorder of muscle, ligament, and fascia Other hyperlipidemia Ovarian varices Nutcracker phenomenon of renal vein Narcotic drug use Sinus bradycardia on ECG Other specified cardiac dysrhythmias Osteoporosis, post-menopausal- Primary Senile osteoporosis Coronary artery disease involving [place] coronary artery of [place] heart without angina pectoris Family history of [...] Other specified counseling [facility] Diagnosis Preop examination- Primary Preoperative examination, unspecified Pararenal abdominal 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 Other disorder of muscle, ligament, and fascia Other hyperlipidemia Ovarian varices Nutcracker phenomenon of renal vein Narcotic drug use Sinus bradycardia on ECG Other specified cardiac dysrhythmias High-tone pelvic floor dysfunction- Primary Other specified disorders of female genital organs Trigger point of abdomen Myalgia, other site [facility]* Diagnosis Preop examination- Primary Preoperative examination, unspecified Pararenal abdominal 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 Other disorder of muscle, ligament, and fascia Other hyperlipidemia Ovarian varices Nutcracker phenomenon of renal vein Narcotic drug use Sinus bradycardia on ECG Other specified cardiac dysrhythmias Vitamin B12 deficiency- Primary Other B-complex deficiencies Heart disease, unspecified [facility] Diagnosis Preop examination- Primary Preoperative examination, unspecified Pararenal abdominal 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 Other disorder of muscle, ligament, and fascia Other hyperlipidemia Ovarian varices Nutcracker phenomenon of renal vein Narcotic drug use Sinus bradycardia on ECG Other specified cardiac dysrhythmias Primary osteoarthritis of right knee- Primary Primary localized osteoarthrosis, lower leg [facility]* Diagnosis Pulmonary nodule- Primary Other diseases of lung, not elsewhere classified documented in this encounter [facility] HealthcareEvaluation noteNo assessment information availableOur Lady Of [facility] Work Phone: Hisvgem general Narrative - Reported* Type Description Date Medical History Other seasonal 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 Surgical History cholecystectomy Surgical History arthroscopic knee surgery Surgical History oral surgery Surgical History colonoscopy Surgical History tubal ligation Surgical History styloidectomy Hospitalization History see above Gocella Other Hiscrwr general Narrative - Reported* Type Description Date Medical History Other seasonal 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 Medical History shingles Surgical History cholecystectomy Surgical History arthroscopic knee surgery Surgical History oral surgery Surgical History colonoscopy Surgical History tubal ligation Surgical History styloidectomy Hospitalization History see above Gocella Other Hisormg general Narrative - Reported* Type Description Date Medical History Other seasonal 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 Medical History shingles Medical History Renal stone Surgical History cholecystectomy Surgical History arthroscopic knee surgery Surgical History oral surgery Surgical History colonoscopy Surgical History tubal ligation Surgical History styloidectomy b/l Hospitalization History see above Gocella Other Hisgqah general Narrative - Reported* Type Description Date Medical History Other seasonal 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 Medical History shingles Medical History Renal stone Medical History Pelvic venous congestive syndrom e Surgical History cholecystectomy Surgical History arthroscopic knee surgery Surgical History oral surgery Surgical History colonoscopy Surgical History tubal ligation Surgical History styloidectomy b/l Hospitalization History see above Gocella Other Hiszitu general Narrative - Reported* Type Description Date Medical History Other seasonal 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 Medical History shingles Medical History Renal stone Medical History Pelvic venous congestive syndrom e Surgical History cholecystectomy Surgical History arthroscopic knee surgery Surgical History oral surgery Surgical History colonoscopy Surgical History tubal ligation Surgical History styloidectomy b/l Surgical History Venogram Hospitalization History see above Gocella Other InstructionsNot on filedocumented in this encounter [facility]ructionsNot on filedocumented in this encounter [facility] SystemInstructionsNot on filedocumented in this encounter [facility]Reason for referral (narrative)* Outpatient Procedure (Routine) - Authorized Specialty Diagnoses / Procedures Referred By Contac t [facility] Diagnoses Nutcracker phenomenon of renal vein Procedures US RENAL ARTERY ALYSON VAS LAB DUP-SCAN ARTL STEVAN ABDL/PEL/SCROT&/RPR ORGN COM Rina Fox MD [address] [place] [phone] [facility][Note 3] Vascular [place] [id number] [place] [phone] Referral ID Status Reason Start Date Expiration Date Visits Requested Visits Authorized [id number] Authorized Auto-Generat ed Referral 12/12/2023 12/11/2024 1 1 [facility] for referral (narrative)* Outpatient Procedure (Routine) - Authorized Specialty Diagnoses / Procedures Referred By Nori t Referred To Contact [facility] Diagnoses Nutcracker phenomenon of renal vein Procedures US RENAL VENOUS ALYSON VAS LAB DUP-SCAN ARTL STEVAN ABDL/PEL/SCROT&/RPR ORGN COM Rina Fox MD [address] [place] [phone] [facility][Note 3] Vascular [place] [address] [place] [phone] Referral ID Status Reason Start Date Expiration Date Visits Requested Visits Authorized [id number] Authorized Auto-Generat ed Referral 12/17/2023 12/16/2024 1 1 [facility] for referral (narrative)* Outpatient Procedure (Routine) - Authorized Specialty Diagnoses / Procedures Referred By Contac t Referred To Contact [facility] Diagnoses Nutcracker phenomenon of renal vein Procedures US VENOUS INCOMPETENCY ALYSON VAS LAB DUP-SCAN XTR VEINS COMPLETE BILATERAL STUDY Rina Fox MD [address] [place] [phone] [facility][Note 3] [place]ascular [place] [address] [place] [id number] Referral ID Status Reason Start Date Expiration Date Visits Requested Visits Authorized [id number] Authorized Auto-Generat ed Referral 12/17/2023 12/16/2024 1 1 [facility] for referral (narrative)* Outpatient Procedure (Routine) - Authorized Specialty Diagnoses / Procedures Referred By Contac t Referred [facility] Diagnoses Nutcracker phenomenon of renal vein Preop testing Procedures ECG COMPLETE ECG ROUTINE ECG W/LEAST 12 LDS W/I&R Kira Eduardo APRN.CNP [address] [facility] [place] [address] [facility] [place] [address] [place] [id number] Referral ID Status Reason Start Date Expiration Date Visits Requested Visits Authorized [id number] Authorized Auto-Generat ed Referral 12/19/2023 12/18/2024 1 1 [facility] for referral (narrative)No reason for referral information availableOur [facility] Work Phone: Reason for visit Narrative* Consult, Test, Treat (Routine) - Closed Specialty Diagnoses / Procedures Referred By Contac t Referred To Contact Orthopedics Diagnoses Primary osteoarthritis of right knee Derangement of unsp meniscus due to old tear/inj, right knee Procedures CONSULT PANEL TO ORTHOPAEDICS OFFICE/OUTPATIENT [facility] 60 MINUTES Gi Siddiqi MD [address] [place] [address] Phone: tel: fax: Referral ID Status Reason Start Date Expiration Date V isits Requested Visits Authorized [id number] Closed PCP Requested Referral 02/02/2025 02/02/2026 1 1 [facility] Summary Purpose Family History No Family [...] Procedures ECG 12 lead Ibis Rodriguez MD [address], [address] [place] [address] Referral ID Status Reason Start Date Expiration Date V isits Requested Visits Authorized [id number] Pending Review 11/12/2023 11/11/2024 1 1 Specialty Diagnoses / Procedures Referred By Contac t Referred To Contact Diagnoses Pulmonary nodule Procedures CT chest wo IV contrast Dania Steven DO [address] [facility] [place] [address] Referral ID Status Reason Start Date Expiration Date V isits Requested Visits Authorized [id number] Pending Review 05/02/2025 10/29/2025 1 1 Specialty Diagnoses / Procedures Referred By Contac t Referred To Contact [facility] Diagnoses High-tone pelvic floor dysfunction Augustina Vargas MD [address] [place], [place] [id number] [place] [address] Referral ID Status Reason Start Date Expiration Date V isits Requested Visits Authorized [id number] Authorized 05/28/2024 08/26/2024 1 1 Specialty Diagnoses / Procedures Referred By Contac t Referred To Contact [facility] Diagnoses High-tone pelvic floor dysfunction Procedures CONSULT TO PHYSICAL THERAPY PHYSICAL THERAPY EVALUATION HIGH COMPLEX 45 MINS Augustina Vargas MD [address] [place] [address] [facility] [place] [address] Referral ID Status Reason Start Date Expiration Date Visits Requested Visits Authorized [id number] Authorized PCP Requested Referral Auto-Generate d Referral 05/27/2024 05/27/2025 99 99 Specialty Diagnoses / Procedures Referred By Contac t Referred To Contact Diagnoses High-tone pelvic floor dysfunction Augustina Vargas MD [address] [place] [address] Referral ID Status Reason Start Date Expiration Date Visits Re quested Visits Authorized [id number] Closed 1 1 Specialty Diagnoses / Procedures Referred By Contac t Referred To Contact Diagnoses Nutcracker phenomenon of renal vein Procedures REFER TO PACC - PRE ANESTHESIA CONSULTATION CLINIC OFFICE/OUTPATIENT [facility] MDM 60 MINUTES Viet Carr MD [address] [place] [address] Referral ID Status Reason Start Date Expiration Date Visits Requested Visits Authorized [id number] Authorized PCP Requested Referral 02/25/2024 12/29/2024 1 1 Specialty Diagnoses / Procedures Referred By Contac t Referred To Contact [facility] Diagnoses Nutcracker phenomenon of renal vein Procedures ECG COMPLETE ECG ROUTINE ECG W/LEAST 12 LDS W/I&R Viet Carr MD [address] [place] [address] [facility][Note 3] Vascular [place] [phone] Referral ID Status Reason Start Date Expiration Date Visits Requested Visits Authorized [id number] Pending Review Auto-Generat ed Referral 02/25/2024 12/29/2024 1 1 Specialty Diagnoses / Procedures Referred By Contac t Referred To Contact Urology Diagnoses Nutcracker phenomenon of renal vein Procedures CONSULT TO UROLOGY OFFICE/OUTPATIENT [facility] MDM 60 MINUTES Rina Fox MD [address] [facility] [place] [address] Referral ID Status Reason Start Date Expiration Date Visits Requested Visits Authorized [id number] Authorized PCP Requested Referral 12/18/2023 12/17/2024 1 1 Reason *FU 10/22 [place] office - abnormal CT of chest, send notes recently from Dr. Godwin. Diagnosis [address] (R 93.89) Referral Organization [facility] Referring Provider First Name Ammon Referring Provider Last Name Dylon Referring Provider Specialty [facility] Referred Organization [facility] Referred Provider Dania Steven Referred Address ,[place], [place],[address] Referred Provider Specialty Pulmonary Di lupillo Referral Priority Routine General Notes Thea Wilson 04:43:51 PM >received today Thea Wilson 10/15/2023 04:45:29 PM >attachments made, notes locked, referral faxed to [place] office Clinical Notes p: [phone] f: [phone] Reason Pt has all records, images with [facility]. Pt has called [facility] and they recommend she start w Dr. Camp for assessment Diagnosis 1 Pelvic congestion sy ndrome (N94.89) Referral Organization [facility] [employer] [facility] Referring Provider First Name Ammon Referring Provider Last Name Dylon Referring Provider Specialty [facility] Referred Organization [facility] Referred Provider Shanell Camp Referred Address [address] [place], [place],[address] Referred Provider Specialty Diagnostic R adiology Referral Priority Routine Reason 12/18/22 @ 2:20 it tiera palms and soles, drug reaction on abd. please send recent derm note with referral. Diagnosis 1 Allergic reaction, s ubsequent encounter (T78.40XD) Referral Organization [facility] [employer] [facility] Referring Provider First Name Ammon Referring Provider Last Name Dylon Referring Provider Specialty [facility] Referred Organization [facility] Referred Provider Will Vega Referred Address ,[place], [place],[address] Referred Provider Specialty Allergy/Immu nology Referral Priority [...] Date wellness June 03, 2025 10 :48am Reason for Visit Admit Date Arteriosclerosis June 03, 2025 10 :48am Medicare annual wellness visit, subseque nt June 03, 2025 10:48am Additional Source Comments INFORMATION SOURCE (unrecogn ized section and content) DATE CREATED AUTHOR [facility] DATE CREATED AUTHOR AUTHOR'S ORGANIZ ATION 02/26/2023 [facility] DATE CREATED AUTHOR AUTHOR'S ORGANIZ ATION 02/18/2024 [facility] DATE CREATED AUTHOR AUTHOR'S ORGANIZ ATION 05/04/2024 [facility] DATE CREATED AUTHOR AUTHOR'S ORGANIZ ATION 07/27/2024 [facility] DATE CREATED AUTHOR AUTHOR'S ORGANIZ ATION 02/03/2025 [facility] DATE CREATED AUTHOR AUTHOR'S ORGANIZ ATION 05/02/2025 [facility] DATE CREATED AUTHOR AUTHOR'S ORGANIZ ATION 05/10/2025 [facility] DATE CREATED AUTHOR AUTHOR'S ORGANIZ ATION 06/04/2025 [facility] DATE CREATED AUTHOR AUTHOR'S ORGANIZ ATION 06/07/2025 [facility] DATE CREATED AUTHOR AUTHOR'S ORGANIZ ATION 06/09/[address] [facility] REASON FOR VISIT (unrecogniz ed section and content) Reason Comments Appointment Reason Comments Patient Question Reason Comments Consult Reason Comments Consult Specialty Diagnoses / Procedures Referred By Contac t Referred To Contact Urology Diagnoses Nutcracker phenomenon of renal vein Procedures CONSULT TO UROLOGY OFFICE/OUTPATIENT [facility] 60 MINUTES Rina Fox MD [address] [place] [address] Referral ID Status Reason Start Date Expiration Date V isits Requested Visits Authorized [id number] Closed PCP Requested Referral 12/18/2023 12/17/2024 1 1 Reason Comments Patient Update Reason Comments Surgery Cancelled Reason Comments Pre-Op Exam Reason Comments Cystoscopy-1 Stent Extraction Reason Comments Follow Up Reason Comments Pelvic Pain Reason Comments botox auth Reason Comments Pelvic Pain Specialty Diagnoses / Procedures Referred By Contac t Referred To Contact [facility] Diagnoses High-tone pelvic floor dysfunction Augustina Vargas MD [address] [place] [address] [facility] [address] [place] [address] Referral ID Status Reason Start Date Expiration Date Visits Re quested Visits Authorized [id number] Closed 05/28/2024 08/26/2024 1 1 Reason Comments [...] By Contac t Referred To Contact [facility] Augustina Vargas MD [address] [place] [address] Phone: tel: fax: [place] [phone] Referral ID Status Reason Start Date Expiration Date Visits Re quested Visits Authorized [id number] Closed 12/08/2024 03/08/2025 1 1 Reason Comments Radio Gen RMP Reason Comments Follow Up Discuss Dexa results /treatment Reason Comments Insurance Authorization Reason Comments Trigger Point Injection Pelvic Pain Specialty Diagnoses / Procedures Referred By Contac t Referred To Contact [facility] Specialist / GYNECOLOGY Diagnoses Other specified disorders of muscle TPI Procedures TRIGGER POINT INJECTION MULTI 1-2 MUSCLE GR TRIGGER [place] [address] [place] [address] Phone: tel: fax: Referral ID Status Reason Start Date Expiration Date Visits Re quested Visits Authorized [id number] Closed 01/27/2025 10/12/2025 1 1 Reason Comments Established Patient Follow Up Specialty Diagnoses / Procedures Referred By Contac t Referred To Contact Orthopedics Diagnoses Primary osteoarthritis of right knee Derangement of unsp meniscus due to old tear/inj, right knee Procedures CONSULT PANEL TO ORTHOPAEDICS OFFICE/OUTPATIENT [facility] 60 MINUTES Gi Siddiqi MD [address] [place] [address] Phone: tel: fax: Referral ID Status Reason Start Date Expiration Date V isits Requested Visits Authorized [id number] Closed PCP Requested Referral 02/02/2025 02/02/2026 1 1 Source Comments (unrecognize d section and content) In the event this informatio n is protected by the Federal Confidentiality of Alcohol and Drug Abuse Patient Records regulations: The Federal rules restrict any use of the information to criminally investigate or prosecute any alcohol or drug abuse patient.[facility] HospitalIn the event this information is protected by the Federal Confidentiality of Alcohol and Drug Abuse Patient Records regulations: The Federal rules restrict any use of the information to criminally investigate or prosecute any alcohol or drug abuse patient.[facility] HospitalIn the event this information is protected by the Federal Confidentiality of Alcohol and Drug Abuse Patient Records regulations: The Federal rules restrict any use of the information to criminally investigate or prosecute any alcohol or drug abuse patient.[facility] HospitalIn the event this information is protected by the Federal Confidentiality of Alcohol and Drug Abuse Patient Records regulations: The Federal rules restrict any use of the information to criminally investigate or prosecute any alcohol or drug abuse patient.[facility] HospitalIn the event this information is protected by the Federal Confidentiality of Alcohol and Drug Abuse Patient Records regulations: The Federal rules restrict any use of the information to criminally investigate or prosecute any alcohol or drug abuse patient.[facility] HospitalIn the event this information is protected by the Federal Confidentiality of Alcohol and Drug Abuse Patient Records regulations: The Federal rules restrict any use of the information to criminally investigate or prosecute any alcohol or drug abuse patient.[facility] HospitalIn the event this information is protected by the Federal Confidentiality of Alcohol and Drug Abuse Patient Records regulations: The Federal rules restrict any use of the information to criminally investigate or prosecute any alcohol or drug abuse patient.[facility] HospitalIn the event this information is protected by the Federal Confidentiality of Alcohol and Drug Abuse Patient Records regulations: The Federal rules restrict any use of the information to criminally investigate or prosecute any alcohol or drug abuse patient.[facility] HospitalIn the event this information is protected by the Federal Confidentiality of Alcohol and Drug Abuse Patient Records regulations: The Federal rules restrict any use of the information to criminally investigate or prosecute any alcohol or drug abuse patient.[facility] HospitalIn the event this information is protected by the Federal Confidentiality of Alcohol and Drug Abuse Patient Records regulations: The Federal rules restrict any use of the information to criminally investigate or prosecute any alcohol or drug abuse patient.[facility] HospitalIn the event this information is protected by the Federal Confidentiality of Alcohol and Drug Abuse Patient Records regulations: The Federal rules restrict any use of the information to criminally investigate or prosecute any alcohol or drug abuse patient.[facility] HospitalIn the event this information is protected by the Federal Confidentiality of Alcohol and Drug Abuse Patient Records regulations: The Federal rules restrict any use of the information to criminally investigate or prosecute any alcohol or drug abuse patient.[facility] HospitalIn the event this information is protected by the Federal Confidentiality of Alcohol and Drug Abuse Patient Records regulations: The Federal rules restrict any use of the information to criminally investigate or prosecute any alcohol or drug abuse patient.[facility] HospitalIn the event this information is protected by the Federal Confidentiality of Alcohol and Drug Abuse Patient Records regulations: The Federal rules restrict any use of the information to criminally investigate or prosecute any alcohol or drug abuse patient.[facility] HospitalIn the event this information is protected by the Federal Confidentiality of Alcohol and Drug Abuse Patient Records regulations: The Federal rules restrict any use of the information to criminally investigate or prosecute any alcohol or drug abuse patient.[facility] HospitalIn the event this information is protected by the Federal Confidentiality of Alcohol and Drug Abuse Patient Records regulations: The Federal rules restrict any use of the information to criminally investigate or prosecute any alcohol or drug abuse patient.[facility] HospitalIn the event this information is protected by the Federal Confidentiality of Alcohol and Drug Abuse Patient Records regulations: The Federal rules restrict any use of the information to criminally investigate or prosecute any alcohol or drug abuse patient.[facility] HospitalIn the event this information is protected by the Federal Confidentiality of Alcohol and Drug Abuse Patient Records regulations: The Federal rules restrict any use of the information to criminally investigate or prosecute any alcohol or drug abuse patient.[facility] HospitalIn the event this information is protected by the Federal Confidentiality of Alcohol and Drug Abuse Patient Records regulations: The Federal rules restrict any use of the information to criminally investigate or prosecute any alcohol or drug abuse patient.[facility] HospitalIn the event this information is protected by the Federal Confidentiality of Alcohol and Drug Abuse Patient Records regulations: The Federal rules restrict any use of the information to criminally investigate or prosecute any alcohol or drug abuse patient.[facility] HospitalIn the event this information is protected by the Federal Confidentiality of Alcohol and Drug Abuse Patient Records regulations: The Federal rules restrict any use of the information to criminally investigate or prosecute any alcohol or drug abuse patient.[facility] HospitalIn the event this information is protected by the Federal Confidentiality of Alcohol and Drug Abuse Patient Records regulations: The Federal rules restrict any use of the information to criminally investigate or prosecute any alcohol or drug abuse patient.[facility] HospitalIn the event this information is protected by the Federal Confidentiality of Alcohol and Drug Abuse Patient Records regulations: The Federal rules restrict any use of the information to criminally investigate or prosecute any alcohol or drug abuse patient.[facility] HospitalIn the event this information is protected by the Federal Confidentiality of Alcohol and Drug Abuse Patient Records regulations: The Federal rules restrict any use of the information to criminally investigate or prosecute any alcohol or drug abuse patient.[facility] HospitalIn the event this information is protected by the Federal Confidentiality of Alcohol and Drug Abuse Patient Records regulations: The Federal rules restrict any use of the information to criminally investigate or prosecute any alcohol or drug abuse patient.[facility] HospitalIn the event this information is protected by the Federal Confidentiality of Alcohol and Drug Abuse Patient Records regulations: The Federal rules restrict any use of the information to criminally investigate or prosecute any alcohol or drug abuse patient.[facility] HospitalIn the event this information is protected by the Federal Confidentiality of Alcohol and Drug Abuse Patient Records regulations: The Federal rules restrict any use of the information to criminally investigate or prosecute any alcohol or drug abuse patient.[facility] HospitalIn the event this information is protected by the Federal Confidentiality of Alcohol and Drug Abuse Patient Records regulations: The Federal rules restrict any use of the information to criminally investigate or prosecute any alcohol or drug abuse patient.[facility] HospitalIn the event this information is protected by the Federal Confidentiality of Alcohol and Drug Abuse Patient Records regulations: The Federal rules restrict any use of the information to criminally investigate or prosecute any alcohol or drug abuse patient.[facility] HospitalIn the event this information is protected by the Federal Confidentiality of Alcohol and Drug Abuse Patient Records regulations: The Federal rules restrict any use of the information to criminally investigate or prosecute any alcohol or drug abuse patient.[facility] HospitalIn the event this information is protected by the Federal Confidentiality of Alcohol and Drug Abuse Patient Records regulations: The Federal rules restrict any use of the information to criminally investigate or prosecute any alcohol or drug abuse patient.[facility] Hospital[facility] the event this information is protected by the Federal Confidentiality of Alcohol and Drug Abuse Patient Records regulations: The Federal rules restrict any use of the information to criminally investigate or prosecute any alcohol or drug abuse patient.[facility] the event this information is protected by the Federal Confidentiality of Alcohol and Drug Abuse Patient Records regulations: The Federal rules restrict any use of the information to criminally investigate or prosecute any alcohol or drug abuse patient.[facility] HospitalIn the event this information is protected by the Federal Confidentiality of Alcohol and Drug Abuse Patient Records regulations: The Federal rules restrict any use of the information to criminally investigate or prosecute any alcohol or drug abuse patient.[facility] HospitalIn the event this information is protected by the Federal Confidentiality of Alcohol and Drug Abuse Patient Records regulations: The Federal rules restrict any use of the information to criminally investigate or prosecute any alcohol or drug abuse patient.[facility] the event this information is protected by the Federal Confidentiality of Alcohol and Drug Abuse Patient Records regulations: The Federal rules restrict any use of the information to criminally investigate or prosecute any alcohol or drug abuse patient.[facility] HospitalIn the event this information is protected by the Federal Confidentiality of Alcohol and Drug Abuse Patient Records regulations: The Federal rules restrict any use of the information to criminally investigate or prosecute any alcohol or drug abuse patient.[facility] HospitalIn the event this information is protected by the Federal Confidentiality of Alcohol and Drug Abuse Patient Records regulations: The Federal rules restrict any use of the information to criminally investigate or prosecute any alcohol or drug abuse patient.[facility] HospitalIn the event this information is protected by the Federal Confidentiality of Alcohol and Drug Abuse Patient Records regulations: The Federal rules restrict any use of the information to criminally investigate or prosecute any alcohol or drug abuse patient.[facility] HospitalIn the event this information is protected by the Federal Confidentiality of Alcohol and Drug Abuse Patient Records regulations: The Federal rules restrict any use of the information to criminally investigate or prosecute any alcohol or drug abuse patient.[facility] HospitalIn the event this information is protected by the Federal Confidentiality of Alcohol and Drug Abuse Patient Records regulations: The Federal rules restrict any use of the information to criminally investigate or prosecute any alcohol or drug abuse patient.[facility] HospitalIn the event this information is protected by the Federal Confidentiality of Alcohol and Drug Abuse Patient Records regulations: The Federal rules restrict any use of the information to criminally investigate or prosecute any alcohol or drug abuse patient.[facility] HospitalIn the event this information is protected by the Federal Confidentiality of Alcohol and Drug Abuse Patient Records regulations: The Federal rules restrict any use of the information to criminally investigate or prosecute any alcohol or drug abuse patient.[facility] Teams (unrecognized sec tion and content) Business Quality Assurance Analyst Relationship Specialty Start Date End Date Ammon Lucas MD [address] [place] [facility] [place] [address] Referring Family Medicine 09/08/23 Business Quality Assurance Analyst Relationship Specialty Start Date End Date Ammon Lucas MD [address] [place] [facility] [place] [place] [address] Referring Family Medicine 09/08/23 Business Quality Assurance Analyst Relationship Specialty Start Date End Date Ammon Lucas MD [address] [place] [facility] [place] [place] [address] PCP - General Family Medicine 12/18/23 Ammon Lucas MD [address] [place] [place] [place] [address] Referring Family Medicine 09/08/23 Business Quality Assurance Analyst Relationship Specialty Start Date End Date Ammon Lucas MD [address] [place] [facility] [place] [place] [address] PCP - General Family Medicine 12/18/23 Ammon Lucas MD [address] [place] [place] [place] [address] Referring Family Medicine 09/08/23 Business Quality Assurance Analyst Relationship Specialty Start Date End Date Ammon Lucas MD [address] [place] [place] [place] [address] PCP - General Family Medicine 12/18/23 Ammon Lucas MD [address] [place] [place] [place] [address] Referring Family Medicine 09/08/23 Business Quality Assurance Analyst Relationship Specialty Start Date End Date Ammon Lucas MD [address] [place] [place] [place] [address] PCP - General Family Medicine 12/18/23 Ammon Lucas MD [address] [place] [place] [place] [address] Referring Family Medicine 09/08/23 Business Quality Assurance Analyst Relationship Specialty Start Date End Date Ammon Lucas MD [address] [place] [place] [place] [address] PCP - General Family Medicine 12/18/23 Ammon Lucas MD [address] [place] [place] [place] [address] Referring Family Medicine 09/08/23 Business Quality Assurance Analyst Relationship Specialty Start Date End Date Ammon Lucas MD [address] [place] [facility] [place] [place] [address] PCP - General Family Medicine 12/18/23 Ammon Lucas MD [address] [place] [place] [place] [address] Referring Family Medicine 09/08/23 Business Quality Assurance Analyst Relationship Specialty Start Date End Date Ammon Lucas MD [address] [place] [place] [place] [address] PCP - General Family Medicine 12/18/23 Ammon Lucas MD [address] [place] [place] [place] [address] Referring Family Medicine 09/08/23 Business Quality Assurance Analyst Relationship Specialty Start Date End Date Ammon Lucas MD [address] [place] [place] [place] [address] PCP - General Family Medicine 12/18/23 Ammon Lucas MD [address] [place] [place] [place] [address] Referring Family Medicine 09/08/23 Business Quality Assurance Analyst Relationship Specialty Start Date End Date Ammon Lucas MD [address] [place] [place] [place] [address] PCP - General Family Medicine 12/18/23 Ammon Lucas MD [address] [place] [place] [place] [address] Referring Family Medicine 09/08/23 Business Quality Assurance Analyst Relationship Specialty Start Date End Date Ammon Lucas MD [address] [place] [place] [place] [address] PCP - General Family Medicine 12/18/23 Ammon Lucas MD [address] [place] [place] [place] [address] Referring Family Medicine 09/08/23 Business Quality Assurance Analyst Relationship Specialty Start Date End Date Ammon Lucas MD [address] [place] [place] [place] [address] PCP - General Family Medicine 12/18/23 Ammon Lucas MD [address] [place] [place] [place] [address] Referring Family Medicine 09/08/23 Business Quality Assurance Analyst Relationship Specialty Start Date End Date Ammon Lucas MD [address] [place] [place] [place] [address] PCP - General Family Medicine 12/18/23 Ammon Lucas MD [address] [place] [place] [place] [address] Referring Family Medicine 09/08/23 Business Quality Assurance Analyst Relationship Specialty Start Date End Date Ammon Lucas MD [address] [place] [place] [place] [address] PCP - General Family Medicine 12/18/23 Ammon Lucas MD [address] [place] [place] [place] [address] Referring Family Medicine 09/08/23 Business Quality Assurance Analyst Relationship Specialty Start Date End Date Ammon Lucas MD [address] [place] [place] [place] [address] PCP - General Family Medicine 12/18/23 Ammon Lucas MD [address] [place] [place] [place] [address] Referring Family Medicine 09/08/23 Business Quality Assurance Analyst Relationship Specialty Start Date End Date Ammon Lucas MD [address] [place] [facility] [place] [place] [address] PCP - General Family Medicine 12/18/23 Ammon Lucas MD [address] [place] [place] [place] [address] Referring Family Medicine 09/08/23 Business Quality Assurance Analyst Relationship Specialty Start Date End Date Ammon Lucas MD [address] [place] [place] [place] [address] PCP - General Family Medicine 12/18/23 Ammon Lucas MD [address] [place] [place] [place] [address] Referring Family Medicine 09/08/23 Business Quality Assurance Analyst Relationship Specialty Start Date End Date Ammon Lucas MD [address] [place] [facility] [place] [place] [address] PCP - General Family Medicine 12/18/23 Ammon Lucas MD [address] [place] [facility] [place] [place] [address] Referring Family Medicine 09/08/23 Business Quality Assurance Analyst Relationship Specialty Start Date End Date Ammon Lucas MD [address] [place] [facility] [place] [place] [address] PCP - General Family Medicine 12/18/23 Ammon Lucas MD [address] [facility] [place] [place] [address] Referring Family Medicine 09/08/23 Business Quality Assurance Analyst Relationship Specialty Start Date End Date Ammon Lucas MD [address] [place] [place] [place] [address] PCP - General Family Medicine 12/18/23 Ammon Lucas MD [address] [place] [place] [place] [address] Referring Family Medicine 09/08/23 Business Quality Assurance Analyst Relationship Specialty Start Date End Date Ammon Lucas MD [address] [place] [place] [place] [address] PCP - General Family Medicine 12/18/23 Ammon Lucas MD [address] [place] [place] [place] [address] Referring Family Medicine 09/08/23 Business Quality Assurance Analyst Relationship Specialty Start Date End Date Ammon Lucas MD [address] [place] [place] [place] [address] PCP - General Family Medicine 12/18/23 Ammon Lucas MD [address] [facility] [place] [place] [address] Referring Family Medicine 09/08/23 Business Quality Assurance Analyst Relationship Specialty Start Date End Date Ammon Lucas MD [address] [place] [facility] [place] [address] PCP - General Family Medicine 03/18/23 Business Quality Assurance Analyst Relationship Specialty Start Date End Date Ammon Lucas MD [address] [facility] [place] [address] PCP - General Family Medicine 03/18/23 Business Quality Assurance Analyst Relationship Specialty Start Date End Date Ammon Lucas MD [address] [facility] [place] [place] [address] PCP - General Family Medicine 12/18/23 Ammon Lucas MD [address] [place] [phone] Referring Family Medicine 09/08/23 Business Quality Assurance Analyst Relationship Specialty Start Date End Date Ammon Lucas MD [address] [place] [address] PCP - General 06/18/18 Business Quality Assurance Analyst Relationship Specialty Start Date End Date Ammon Lucas MD [address] [place] [address] PCP - General 06/18/18 Business Quality Assurance Analyst Relationship Specialty Start Date End Date Ammon Lucas MD [address] [place] [address] PCP - General 06/18/18 Business Quality Assurance Analyst Relationship Specialty Start Date End Date Ammon Lucas MD [address] [place] [address] PCP - General 06/18/18 Business Quality Assurance Analyst Relationship Specialty Start Date End Date Ammon Lucas MD [address] [place] [address] PCP - General 06/18/18 Business Quality Assurance Analyst Relationship Specialty Start Date End Date Ammon Lucas MD [address] [place] [address] PCP - General 06/18/18 Business Quality Assurance Analyst Relationship Specialty Start Date End Date Ammon Lucas MD [address] [place] [phone] PCP - General Family Medicine 03/18/23 Business Quality Assurance Analyst Relationship Specialty Start Date End Date Ammon Lucas MD [address] [facility] [place] [address] PCP - General Family Medicine 03/18/23 Business Quality Assurance Analyst Relationship Specialty Start Date End Date Ammon Lucas MD [address] [facility] [place] [address] PCP - General Family Medicine 03/18/23 Business Quality Assurance Analyst Relationship Specialty Start Date End Date Ammon Lucas MD [address] [facility] [place] [place] [address] PCP - General Family Medicine 12/18/23 Ammon Lucas MD [address] [place] [place] [place] [address] Referring Family Medicine 09/08/23 Business Quality Assurance Analyst Relationship Specialty Start Date End Date Ammon Lucas MD [address] [place] [place] [place] [address] PCP - General Family Medicine 12/18/23 Ammon Lucas MD [address] [place] [place] [place] [address] Referring Family Medicine 09/08/23 Business Quality Assurance Analyst Relationship Specialty Start Date End Date Ammon Lucas MD [address] [place] [place] [place] [address] PCP - General Family Medicine 12/18/23 Ammon Lucas MD [address] [place] [place] [place] [address] Referring Family Medicine 09/08/23 Business Quality Assurance Analyst Relationship Specialty Start Date End Date Ammon Lucas MD [address] [place] [place] [place] [address] PCP - General Family Medicine 12/18/23 Ammon Lucas MD [address] [place] [place] [place] [address] Referring Family Medicine 09/08/23 Business Quality Assurance Analyst Relationship Specialty Start Date End Date Ammon Lucas MD [address] [place] [place] [place] [address] PCP - General Family Medicine 12/18/23 Ammon Lucas MD [address] [place] [place] [place] [address] Referring Family Medicine 09/08/23 Business Quality Assurance Analyst Relationship Specialty Start Date End Date Ammon Lucas MD PCP - General Family Medicine 03/18/23 Business Quality Assurance Analyst Relationship Specialty Start Date End Date Ammon [...] June 03, 2025 End: June 03, 2025 Team Status: Active Member Role Status Dates Ammon Lucas MD Primary Care Provider Active Start: June 06, 2025 Ammon Lucas MD Attending Provider Active St art: June 06, 2025 Team Status: Active Member Role Status Dates Ammon Lucas MD Primary Care Provider Active Start: June 07, 2025 Johan Martinez MD Attending Provider Active Sta rt: June 07, 2025 Goals (unrecognized section and content) Goals [...] BE BASED ON THE PRIMARY CLINICAL RECORDS. [email or web address] provides no warranty or guarantee of the accuracy or completeness of information in this document.
[2025-06-14 09:33] LABS: Hematocrit 42.1 % (36.0-48.0); Hemoglobin 13.9 g/dL (12.0-16.0); Mean Corpuscular HGB Conc 33.0 g/dL (29.9-35.2); Mean Corpuscular Hemoglobin 30.2 pg (26.7-34.0); Mean Corpuscular Volume 91.3 fL (81.0-99.0); Platelet Count 333 10^3/uL (150-450); Red Blood Count 4.61 10^6/uL (4.20-5.40); White Blood Count 21.9 10^3/uL (4.0-11.0)
[2025-06-14 11:34] LABS: Band Neutrophils Absolute 0.9 10^3/uL (0.0-0.3); Basophils Abs Manual 2.62 10^3/uL (0.00-0.10); Basophils Percent Manual 12.0 % (0.2-2.0); Eosinophils Absolute Manual 1.09 10^3/uL (0.00-0.70); Eosinophils Percent Manual 5.0 % (0.9-7.0); Lymphocytes Absolute Manual 2.62 10^3/uL (1.20-3.80); Lymphocytes Percent Manual 12.0 % (20.5-60.0); Metamyelocytes Absolute Manual 1.53; Monocytes Absolute Manual 0.65 10^3/uL (0.30-0.80); Monocytes Percent Manual 3.0 % (1.7-12.0); Myelocytes % Manual 5.0; Myelocytes Absolute Manual 1.09; Segmented Neut Absolute Manual 11.38 10^3/uL (1.4-6.5); Segmented Neutrophils % Manual 52.0 (43.0-75.0)
== END 2025-06-14 08:57 | disposition home or self-care (01) ==
LOC: LAB 08:58
PROVIDERS: PCP Family Medicine; Visit Provider Internal Medicine
DX: R10.84 Generalized abdominal pain (principal)
CPT/HCPCS: 36415; 85007; 85027

== ENCOUNTER 2025-06-28 10:06 | Outpatient (RCR) | payer MEDICARE, SELFPAY ==
[2025-06-28 12:37] LABS: Hematocrit 42.3 % (36.0-48.0); Hemoglobin 14.3 g/dL (12.0-16.0); Mean Corpuscular HGB Conc 33.8 g/dL (29.9-35.2); Mean Corpuscular Hemoglobin 30.4 pg (26.7-34.0); Mean Corpuscular Volume 90.0 fL (81.0-99.0); Platelet Count 390 10^3/uL (150-450); Red Blood Count 4.70 10^6/uL (4.20-5.40); White Blood Count 26.5 10^3/uL (4.0-11.0)
[2025-06-28 12:54] LABS: Band Neutrophils Absolute 0.5 10^3/uL (0.0-0.3); Basophils Abs Manual 1.85 10^3/uL (0.00-0.10); Basophils Percent Manual 7.0 % (0.2-2.0); Lymphocytes Absolute Manual 3.97 10^3/uL (1.20-3.80); Lymphocytes Percent Manual 15.0 % (20.5-60.0); Monocytes Absolute Manual 1.32 10^3/uL (0.30-0.80); Monocytes Percent Manual 5.0 % (1.7-12.0)
[2025-06-28 12:55] LABS: Eosinophils Absolute Manual 0.53 10^3/uL (0.00-0.70); Eosinophils Percent Manual 2.0 % (0.9-7.0); Uric Acid 6.6 mg/dL (2.6-6.0)
[2025-06-28 12:56] LABS: Blast % Manual 0.0; Blast Absolute Manual 0; Myelocytes % Manual 8.0; Myelocytes Absolute Manual 2.12; Segmented Neut Absolute Manual 16.16 10^3/uL (1.4-6.5); Segmented Neutrophils % Manual 61.0 (43.0-75.0)
== END 2025-07-12 23:59 | disposition home or self-care (01) ==
LOC: HEMC 10:06
PROVIDERS: PCP Family Medicine; Visit Provider Internal Medicine Hematology & Oncology
DX: D72.829 Elevated white blood cell count, unspecified (principal); I10 Essential (primary) hypertension; Z80.6 Family history of leukemia
CPT/HCPCS: 36415; 83615; 84550; 85007; 85027; G0463

== ENCOUNTER 2025-07-22 07:45 | Outpatient (RCR) | payer MEDICARE, SELFPAY ==
[2025-07-19 09:38] LABS: Hematocrit 41.9 % (36.0-48.0); Hemoglobin 14.0 g/dL (12.0-16.0); Mean Corpuscular HGB Conc 33.4 g/dL (29.9-35.2); Mean Corpuscular Hemoglobin 30.2 pg (26.7-34.0); Mean Corpuscular Volume 90.3 fL (81.0-99.0); Platelet Count 422 10^3/uL (150-450); Red Blood Count 4.64 10^6/uL (4.20-5.40)
[2025-07-19 09:44] LABS: White Blood Count 30.4 10^3/uL (4.0-11.0)
--- NOTE | 2025-07-19 09:46 | PC.NURSE ---
lab called with elevated white blood cell count 30.4. Updated Dr. Ceballos prior to him going in patient's room
[2025-07-19 09:50] LABS: Alanine Aminotransferase 19 U/L (14-59); Albumin Globulin Ratio 1.1; Albumin Level 4.0 g/dL (3.4-5.0); Alkaline Phosphatase 66 U/L (46-116); Anion Gap 14.2; Aspartate Amino Transferase 23 U/L (15-37); Blood Urea Nitrogen 13.0 mg/dL (7.0-18.0); Calcium 9.6 mg/dL (8.5-10.1); Carbon Dioxide 29.3 mmol/L (21.0-32.0); Chloride 99 mmol/L (98-107); Estimated GFR (African America >60 (>=60 mL/min/1.73m^2); Estimated GFR (Non-African Ame >60 (>=60 mL/min/1.73m^2); Globulin 3.6 g/dL; Glucose 139 mg/dL (74-106); Magnesium 1.8 mg/dL (1.8-2.4); Potassium 3.5 mmol/L (3.5-5.1); Sodium 139 mmol/L (136-145); Total Protein 7.6 g/dL (6.4-8.2)
[2025-07-19 10:19] LABS: Band Neutrophils Absolute 0.9 10^3/uL (0.0-0.3); Basophils Abs Manual 1.52 10^3/uL (0.00-0.10); Basophils Percent Manual 5.0 % (0.2-2.0); Eosinophils Absolute Manual 1.82 10^3/uL (0.00-0.70); Eosinophils Percent Manual 6.0 % (0.9-7.0); Lymphocytes Absolute Manual 2.43 10^3/uL (1.20-3.80); Lymphocytes Percent Manual 8.0 % (20.5-60.0); Monocytes Absolute Manual 4.25 10^3/uL (0.30-0.80); Monocytes Percent Manual 14.0 % (1.7-12.0); Segmented Neut Absolute Manual 19.45 10^3/uL (1.4-6.5); Segmented Neutrophils % Manual 64.0 (43.0-75.0)
== END 2025-08-12 23:59 | disposition home or self-care (01) ==
LOC: HEMC 07:45
PROVIDERS: PCP Family Medicine; Visit Provider Internal Medicine Hematology & Oncology
DX: C92.10 Chronic myeloid leukemia, BCR/ABL-positive, not having achieved remission (principal); I10 Essential (primary) hypertension; Z80.6 Family history of leukemia; Z90.49 Acquired absence of other specified parts of digestive tract; Z98.51 Tubal ligation status; Z87.891 Personal history of nicotine dependence
CPT/HCPCS: 36415; 80053; 83735; 85007; 85027; 86704; 86706; 87340; 99211; G0463

== ENCOUNTER 2025-09-01 09:15 | Outpatient (RCR) | payer MEDICARE, SELFPAY ==
[2025-09-01 10:22] LABS: Hematocrit 34.3 % (36.0-48.0); Hemoglobin 11.0 g/dL (12.0-16.0); Immature Granulocytes Abs Auto 0.01 10^3/uL (0.00-0.03); Immature Granulocytes Pct Auto 0.3 % (0.0-0.5); Lymphocytes Absolute Auto 0.8 10^3/uL (1.2-3.8); Mean Corpuscular HGB Conc 32.1 g/dL (29.9-35.2); Mean Corpuscular Hemoglobin 30.5 pg (26.7-34.0); Mean Corpuscular Volume 95.0 fL (81.0-99.0); Platelet Count 186 10^3/uL (150-450); Red Blood Count 3.61 10^6/uL (4.20-5.40); White Blood Count 3.1 10^3/uL (4.0-11.0)
[2025-09-01 10:53] LABS: Alanine Aminotransferase 26 U/L (14-59); Albumin Globulin Ratio 1.1; Albumin Level 3.6 g/dL (3.4-5.0); Alkaline Phosphatase 82 U/L (46-116); Anion Gap 10.5; Aspartate Amino Transferase 24 U/L (15-37); Blood Urea Nitrogen 23.0 mg/dL (7.0-18.0); Calcium 8.7 mg/dL (8.5-10.1); Carbon Dioxide 30.4 mmol/L (21.0-32.0); Chloride 106 mmol/L (98-107); Estimated GFR (African America >60 (>=60 mL/min/1.73m^2); Estimated GFR (Non-African Ame >60 (>=60 mL/min/1.73m^2); Globulin 3.2 g/dL; Glucose 89 mg/dL (74-106); Potassium 3.9 mmol/L (3.5-5.1); Sodium 143 mmol/L (136-145); Total Protein 6.8 g/dL (6.4-8.2)
== END 2025-09-11 23:59 | disposition home or self-care (01) ==
LOC: HEMC 09:15
PROVIDERS: PCP Family Medicine; Visit Provider Internal Medicine Hematology & Oncology
DX: C92.10 Chronic myeloid leukemia, BCR/ABL-positive, not having achieved remission (principal); M81.0 Age-related osteoporosis without current pathological fracture; I10 Essential (primary) hypertension; Z87.891 Personal history of nicotine dependence
CPT/HCPCS: 36415; 80053; 82306; 83615; 85025; G0463

== ENCOUNTER 2025-09-16 11:23 | Outpatient (OUT) | payer MEDICARE, SELFPAY | END 2025-09-16 11:24 | disposition home or self-care (01) | LOC: LAB 11:27 | PROVIDERS: PCP Family Medicine; Visit Provider Internal Medicine Hematology & Oncology | DX: M81.0 Age-related osteoporosis without current pathological fracture (principal); C92.10 Chronic myeloid leukemia, BCR/ABL-positive, not having achieved remission | CPT/HCPCS: 36415; 82306; 83090 ==

== ENCOUNTER 2025-09-16 11:29 | Outpatient (OUT) | payer MEDICARE, SELFPAY ==
--- OUTSIDE RECORDS SUMMARY | 2025-09-16 11:35 | XMS_ITS | CCD ---
Author Organization [facility] CliniSyca Care Team Providers Care Dental Billing Specialist Name Role Phone Joel Monroe Unavailable Unavailable Joel Monroe Unavailable Unavailable Joel Monroe Unavailable Unavailable AMMON OSBORNE~[phone] UNKNOWN Unavailable Unavailable Joel Monroe Unavailable Unavailable Joel Monroe Unavailable Unavailable Joel Monroe Unavailable Unavailable AMMON OSBORNE~[phone] UNKNOWN Unavailable Unavailable Manuela Aly Unavailable Ayaka Joyner Unavailable Ammon Osborne Unavailable NAVEEN KAHN Admitting Unavailable NAVEEN KAHN Attending Unavailable YRIS ., DELIA TOLENTINO Consulting Unavailmindy OSBORNE, DR AMMON Peres Primary Care Unavailable HAY ., DR KEITA Admitting Unavailable HAY ., DR KEITA Attending Unavailable Derek Mccray Consulting Unavailable OSBORNE, DR AMMON Peres Primary Care Unavailable HAY [...] DYLON, DR AMMON Peres Primary Care Unavailable Jamison Leblanc Consulting Unavailable DYLON, DR AMMON Peres Primary Care Unavailable DYLON, DR AMMON Peres Attending Unavailable DYLON, DR AMMON Peres Admitting Unavailable DYLON, DR AMMON Peres Consulting Unavailable Unavailable Primary Care Provider UnavailAmmon Guzman MD Unavailable Ammon Osborne MD Primary Care Provider [phone] Ammon Osborne MD Primary Care Provider AMMON OSBORNE Referring Unavailable AMMON OSBORNE Primary Care Unavailable Unavailable Primary Care Provider UnavailAmmon Guzman MD Primary Care Provider Ammon Osborne MD Primary Care Provider AMMON OSBORNE Primary Care Unavailable PROVIDER, UNKNOWN Referring Unavailable Ammon Osborne MD Primary Care Provider Ammon Osborne MD Primary Care Provider [phone] Provider, Outside Attending Provider Unavailable Ammon Osborne MD Attending Provider KERI TOPETE Attending Unavailable DANIA WARREN Attending Unavailable STRASBURG, AUGUSTINA M Referring Unavailable [...] Referring Unavailable Johan Martinez MD Attending Provider [phone] Keturah Rodriguez CMA Attending Provider UnavailAUGUSTINA Villarreal Attending Unavailable OSBORNE, AMMON E Referring Unavailable OSBORNE, AMMON E Primary Care Unavailable Ammon Osborne MD Primary Care Provider Neelima Ceballos MD Attending Provider Ammon Osborne MD Other Provider [phone] Aline Tolbert MD Attending Provider [phone] DANIA WARREN Referring Unavailable OSBORNE, AMMON E Primary Care Unavailable OSBORNE, AMMON E Referring Unavailable OSBORNE, AMMON E Primary Care Unavailable ORQUIDEA SALCEDO E Admitting Unavailable ORQUIDEA SALCEDO Attending Unavailable ORQUIDEA SALCEDO E Referring Unavailable OSBORNE, AMMON E Primary Care Unavailable Leighton Wu Attending Unavailable Leighton Wu Admitting Unavailable Osborne Ammon E Attending Unavailable Osborne, Ammon E Primary Care Unavailable Osborne, Ammon E Admitting Unavailable SUSAN STRONGAR Attending Unavailable NIGEL BOWENS Referring Unavailable OSBORNE, AMMON E Primary Care Unavailable ORQUIDEA SAAVEDRA II Attending Unavailable AL-ASHKAR, FEYROUZ Referring Unavailable OSBONRE, AMMON E Primary Care Unavailable MICHELLE YUKYLE Referring Unavailable OSBORNE, AMMON E Primary Care Unavailable AUGUSTINA VARGAS Attending Unavailable SELF Referring Unavailable OSBORNE, AMMON E Primary Care Unavailable AL-ASHKAR, FEYROUZ Attending Unavailable OSBORNE, AMMON E Primary Care Unavailable AL-ASHKAR, FEYROUZ Referring Unavailable OSBORNE, AMMON E Primary Care Unavailable AL-ASHKAR, FEYROUZ Referring Unavailable OSBORNE, AMMON E Primary Care Unavailable ORQUIDEA SAAVEDRA II Attending Unavailable AL-ASHKAR, FEYROUZ Referring Unavailable OSBORNE, AMMON E Primary Care Unavailable AL-ASHKAR, FEYROUZ Referring Unavailable OSBORNE, AMMON E Primary Care Unavailable AL-ASHKAR, FEYROUZ Attending Unavailable ALICIA AUGUSTINA Referring Unavailable OSBORNE, AMMON E Primary Care Unavailable AUGUSTINA VARGAS Attending Unavailable AUGUSTINA VARGAS Referring Unavailable OSBORNE, AMMON E Primary Care Unavailable TRACY SVETA Referring Unavailable OSBORNE, AMMON E Primary Care Unavailable AUGUSTINA VARGAS Attending Unavailable BULMAROBURGAUGUSTINA Referring Unavailable OSBORNE, AMMON E Primary Care Unavailable Ammon Osborne MD Primary Care Provider SARAH GODWIN Referring Unavailable AMMON OSBORNE Primary Care Unavailable SARAH GODWIN Attending Unavailable AMMON OSBORNE Referring Unavailable AMMON OSBORNE Primary Care Unavailable SARAH GODWIN Referring Unavailable AMMON OSBORNE Primary Care Unavailable SARAH GODWIN Admitting Unavailable SARAH GODWIN Attending Unavailable AMMON OSBORNE Primary Care Unavailable Allergies Allergy ClassificationReported Allergen(s)Allergy TypeDate of OnsetReaction(s) Facility (9 sources)amoxicillin; Translations: [amoxicillin]Drug Wnrreqz21-47-2445NsyibaxSelect Medical [facility] (20 sources)Bee/Wasp/Ant venom; Translations: [Bee Stings]Propensity to adverse reactions (disorder)48-18-0567[facility]emcpgu[facility] (20 sources)clindamycin; Translations: [clindamycin]Drug Aliasuk47-14-4269Onus, Shortness of Breath, [facility] Repository (20 sources)doxycycline; Translations: [doxycycline]Drug Acjkaid62-14-7568Encm, [facility] Repository (11 sources)Penicillins; Translations: [penicillins]Propensity to adverse reactions (disorder)78-53-9296Tffce, Rash, [facility] (5 sources)Penicillin; Translations: [penicillin]Drug Koeemnj39-83-1542Keccsoi [facility] Repository (17 sources)Bee pollenDrug Bnhauqn98-48-0469Ajzrxdp:Bee StingsGreen Cross HospitalComment on above:Onset Date: 06/17/2018 (11 sources)CodeineDrug Ehcxkae98-54-1989Mnawxfz:upset [facility] Other (20 sources)Codeine; Translations: [CODEINE]Drug Ssdilvf93-84-7952HX Upset, GI intolerance, GI DisturbanceSelect Medical Specialty Hospital - Cincinnati NorthComment on above:Onset Date: 08/04/2018 (11 sources)PseudoephedrineDrug Mmqmwys93-73-9644AdmqjflDieuz [place] Other (6 sources)patient allergy list reviewed by nurse or physiciaPropensity to adverse twhdaejox90-52-0226Xjqumaz:[facility] Other (3 sources)Allergies ReconciledPropensity to adverse reactionsMissouri Rehabilitation Center [place] Other (1 source)Substance with penicillin structure and antibacterial mechanism of action (substance)Drug ghrutnx82-03-0985WlznshwItwod [place] Other (13 sources)FluconazoleDrug Kwegzut08-70-3432xxruevbyqRspujavrzSuburban [facility] (20 sources)Venom-Honey Bee; Translations: [VENOM-HONEY BEE]Drug Allergy 22-06-1632MpagXpihxmfqm Clinic (13 sources)Bee pollenAllergy to aueqntqsu22-03-9720BISV [facility] (20 sources)Doxycycline; Translations: [DOXYCYCLINE HYCLATE]Drug Allergy 18-24-1600DvvfDSGK Healthcare Work Phone: (13 sources)FluconazoleAllergy to kxlfnzlyw58-21-2688JqzoqxnezIIEC Healthcare (13 sources)Honey bee venomAllergy to whkkovdkn93-17-2912Gfzq, HivesFreeman Orthopaedics & Sports Medicine (13 sources)PseudoephedrineDrug Fxwjvlf32-98-6406YlklqRQZQ Healthcare (6 sources)12 Hour DecongestantAllergy to hwyxkeugt37-56-6811EtzcsJfusxtvtfSelect Medical [facility] Rehabilitation HospitalComment on above:Onset Date: 08/04/2018 (4 sources)BEE VENOM PROTEIN (HONEY BEE); Translations: [BEE VENOM PROTEIN (HONEY BEE)]Propensity to adverse reactions to drug (disorder)12-05-2019 [facility] Repository Medications Current Medications MedicationDrug Class(es)DatesSig (Normalized)Sig (Original)acetaminophen 500 mg oral tablet (13 sources)take 2 tablets by mouth every six hours as neededacetaminophen (Tylenol) 500 MG tablet Take 1,000 mg by mouth every 6 (six) hours if needed Active End: 26-20-9269oibr 1 tablet by mouth every six hours as needed for pain acetaminophen (TYLENOL EXTRA STRENGTH) 500 mg tablet Take 1 tablet (500 mg total) by mouth every 6 (six) hours as needed for pain. 0 11/12/2023 Discontinued (Therapy completed)acetaminophen 325 mg / HYDROcodone bitartrate 5 mg oral tablet (20 sources)Opioid AgonistStart: 08-31-2020 End: 07-93-6537mmbr 1 tablet by mouth every six hours as neededHYDROcodone- acetaminophen (NORCO) 5-325 mg per tablet Take 1 tablet by mouth every 6 (six) hours asneeded. 02/25/2023 ActiveStart: 05-12-2018 End: 46-26-6408hmna 1 tablet by mouth every four hours as needed for pain Hydrocodone-Acetaminophen ([place]) 5-325 mg Tablet Discontinued 1 - 2 TAB PO Every 4 hours as neededfor Pain May 12, 2018 June 03, 2025 11:02am Comment on above:Take 1 tablet by mouth every 6 hours as needed for pain. amoxicillin 875 mg / clavulanate 125 mg oral tablet (2 sources)Penicillin-class AntibacterialStart: 07-87-3881gvly 1 tablet by mouth twice dailyatorvastatin 20 mg oral tablet (20 sources)HMG-CoA Reductase InhibitorStart: 04-12-2024 End: 75-10-8562btbj 1 tablet by mouth once dailyAtorvastatin (Lipitor) 10 mg tablet Discontinued 10 MG PO Daily 90 December 05, 2024 3:09pm May 20, 2025 2:04pmStart: 06-12-2023 End: 02-05-6358gkbl 1 tablet by mouth in the morningatorvastatin (LIPITOR) 20 mg tablet Take 1 tablet (20 mg total) by mouth in the morning. 90 tablet 07/02/2024 ActiveLipitor ActiveComment on above:Take 20 mg by mouth every morning.Take 20 mg by mouth every evening.azithromycin 250 mg oral tablet (13 sources)Macrolide AntimicrobialStart: 09-51-0602Wrrqjlbagblh 250 MG 2 tablet on the first day, then 1 tablet daily for 4 days Orally Once a day for5 day(s) May, Activecalcium carbonate 1500 mg / cholecalciferol 800 unt chewable tablet (5 sources)Vitamin DStart: 90-66-6685ruqm 1 tablet by mouth once dailyCalcium Carbonate / vitamin D3 (20 sources)take 600 mg by mouth twice dailycalcium carbonate/vitamin D3 (CALTRATE 600 + D ORAL) Take 600 mg by mouth two times a day. Activetake 600 mg by mouth twice dailycalcium carbonate/vitamin D3 (CALTRATE 600 + D ORAL) Take 600 mg by mouth two times a day. 0 Activetake 600 mg by mouth once dailycalcium carbonate/vitamin D3 (CALTRATE 600 + D ORAL) Take 600 mg by mouth once daily. 0 ActiveComment on above:Take 600 mg by mouth once daily.Calcium Carbonate-Vit D- Min (Caltrate Bone Health Advanced) 600-800 MG-UNIT chewable tablet (11 sources)Calcium Carbonate-Vit D-Min (Caltrate Bone Health Advanced) 600-800 MG-UNIT chewable tablet Chew ActiveCALCIUM CARBONATE-VITAMIN D3 ORAL (10 sources)take 1200 mg by mouth in the morningCALCIUM CARBONATE-VITAMIN D3 ORAL Take 1,200 mg by mouth in the morning. Activetake 600 mg by mouth in the morningCALCIUM CARBONATE-VITAMIN D3 ORAL Take 600 mg by mouth in the morning. Activetake 600 mg by mouth in the morningCALCIUM CARBONATE-VITAMIN D3 ORAL Take 600 mg by mouth in the morning. 0 Activecholecalciferol 0.025 mg oral tablet (4 sources)Vitamin DStart: 29-29-7915gern 1 tablet by mouth once daily cholecalciferol, vitamin D3, (VITAMIN D3 ORAL) (1 source)cholecalciferol, vitamin D3, (VITAMIN D3 ORAL) Take by mouth. Active cyclobenzaprine hydrochloride 5 mg oral tablet (20 sources)Muscle RelaxantStart: 66-00-2049irpr 1 tablet by mouth three times daily as neededStart: 05-27-2024 End: 10-92-0112vmyp 1 tablet by mouth every twenty-four hours as needed cyclobenzaprine (Flexeril) 5 MG tablet Take 5 mg by mouth Daily as needed 05/27/2024 Activecyclobenzaprine (FLEXERIL) 5 mg tablet Take 2 tablets (10 mg total) by mouth as needed in the morning and 2 tablets (10 mg total) as needed at noon and 2 tablets (10 mg total) as needed in the evening for muscle spasms. Activedasatinib 100 mg oral tablet (2 sources)Kinase InhibitorStart: 15-30-5541meco 1 tablet by mouth once daily after lunchdasatinib (SPRYCEL) 100 mg chemo tablet Take 1 tablet by mouth Daily after lunch 07/22/2025 Activeestradiol 0.1 mg/ml vaginal cream (16 sources)EstrogenStart: 38-62-4029guukdvarr (ESTRACE) 0.01 % (0.1 mg/gram) vaginal cream Indications: Vaginal dryness Use 0.5 g vaginally daily at bedtime. Apply finger tipped size to vulva, urethra nightly 42.5 g 2 07/06/2024 Active fluticasone propionate 0.05 mg/actuat metered dose nasal spray (20 sources)CorticosteroidStart: 06-03-2025 End: 21-30-0093tixd 1 spray(s) nasal route once dailytake 1 spray(s) nasal route in the morningfluticasone (Flonase) 50 MCG/ACT nasal spray Administer 1 spray into affected nostril(s) in the morning. Activetake 1 spray(s) nasal route in the morningfluticasone (FLONASE) 50 mcg/actuation nasal spray Administer 1 spray into each nostril in the morning. Activefluticasone (FLONASE) 50 mcg/actuation nasal spray Use 1 Rugby in the nose once daily. 0 ActiveFLONASE ActiveFlonase ActiveFlonase Not-TakingComment on above:Use 1 Rugby in the nose once daily.Use 1 Rugby in the nose as needed for cold/allergy symptoms. Take in allergy season gabapentin 300 mg oral capsule (20 sources)Anti-epileptic AgentStart: 08-25-2020 End: 13-13-2675lklo 1 capsule by mouth three times dailygabapentin (NEURONTIN) 300 mg capsule Indications: neuropathic pain Take 1 capsule (300 mg total) by mouth 3 (three) times a day Indications: neuropathic pain. 07/02/2023 Active Comment on above:Take 300 mg by mouth as needed for pain.ipratropium bromide 0.042 mg/actuat metered dose nasal spray (2 sources)AnticholinergicStart: 29-68-3623uxdv 2 spray(s) nasal route three times daily as needed for rhinitisipratropium (ATROVENT) 42 mcg (0.06 %) nasal spray Indications: Vasomotor rhinitis Administer 2 sprays into each nostril 3 (three) times a day as needed for rhinitis. 15 mL 5 07/29/2025 Rxnjbe74 hr loratadine 5 mg / pseudoephedrine sulfate 120 mg extended release oral tablet (20 sources)alpha-Adrenergic Agonisttake 1 tablet by mouth once in the morning, then take 1 tablet by mouth every twelve hours in the eveningloratadine- pseudoephedrine ER (Claritin-D 12-hour) 5-120 MG 12 hr tablet Take 1 tablet by mouth in the morning and 1 tablet in the evening. Activemethocarbamol 500 mg oral tablet (3 sources)Muscle RelaxantStart: 03-05-2023 End: 48-76-1436xmkx 1 tablet by mouth three times daily as neededmethocarbamol (Robaxin) 500 MG tablet Take 500 mg by mouth 3 (three) times a day as needed 03/05/2023 06/03/2024 Discontinued (Med list cleanup)montelukast 10 mg oral tablet (20 sources)Leukotriene Receptor AntagonistStart: 06-18-2018 End: 89-33-5887awim 1 tablet by mouth once dailymontelukast (SINGULAIR) 10 mg tablet Indications: seasonal allergic rhinitis Take 1 tablet (10 mg total) by mouth nightly Indications: seasonal runny nose. 06/18/2018 ActiveSingulair ActiveSingulair Not-TakingComment on above:Take 10 mg by mouth once daily. nystatin 429820 unt/ml oral suspension (16 sources)Polyene AntifungalStart: 21-52-2154hcbo 1 mL by mouth once daily Start: 35-41-4355phoe 4 mL by mouth four times dailyNystatin 464835 UNIT/ML 4 mL Mouth/Throat Four times a day for 14 day(s) May, Activenystatin (MYCOSTATIN) 100,000 unit/mL suspension Take 5 mL (500,000 Units total) by mouth in the morning and 5 mL (500,000 Units total) at noon and 5 mL (500,000 Units total) in the evening and 5 mL (500,000 Units total) before bedtime. Active Nystatin 660814 UNIT/ML swish and swallow 5 milliliters four times a day for 10 days Mouth/Throat for 10 Days Not-Takingondansetron 4 mg disintegrating oral tablet (7 sources)Serotonin-3 Receptor AntagonistStart: 71-72-8120dvbvpoxadal ODT (ZOFRAN ODT) 4 mg disintegrating tablet as needed. 07/22/2025 ActiveStart: 05-12-2018 End: 71-33-1469nupw 1 tablet by mouth every six hours as needed for nausea Ondansetron (Zofran Odt) 4 mg Tablet,Disintegrating Discontinued 4 MG PO Q6H as needed for Nausea 10 Judith 31st, 2018 12:00am April 12, 2024 3:30pmpredniSONE 20 mg oral tablet (3 sources)Start: 13-05-1843lhzy 1 tablet by mouth every twelve hoursprednisone 20 MG 1 tablet Orally BID for 5 May, Activeprochlorperazine 10 mg oral tablet (1 source)PhenothiazineStart: 92-17-7663xjli 1 tablet by mouth every eight hours as neededprochlorperazine (COMPAZINE) 10 mg tablet Take 1 tablet (10 mg total) by mouth every 8 (eight) hours as needed. 07/22/2025 Activesod sulf-pot chloride-mag sulf 1.479-0.188- 0.225 gram tablet (2 sources)Start: 88-14-1410tax sulf-pot chloride-mag sulf 1.479-0.188- 0.225 gram tablet Indications: LLQ pain , Rectal bleeding Please see instructional sheet given by physicians office. 24 tablet 07/05/2025 ActivevalACYclovir 1000 mg oral tablet (2 sources)Herpesvirus Nucleoside Analog DNA Polymerase Inhibitor, Herpes Simplex Virus Nucleoside Analog DNA Polymerase Inhibitor, Herpes Zoster Virus Nucleoside Analog DNA Polymerase InhibitorStart: 14-26-7086cvzr 1 tablet by mouth every eight hoursvalACYclovir HCl 1 GM 1 tablet Orally tid for 7 days Sep, ActiveStart: 36-97-5468akoz 1 tablet by mouth every eight hoursValtrex 1 GM 1 tablet Orally tid for 7 days Jul, ActiveVITAMIN B COMPLEX ORAL (5 sources)take 1 capsule by mouth in the morningVITAMIN B COMPLEX ORAL Take 1 capsule by mouth in the morning. ActiveVITAMIN B COMPLEX ORAL Take by mouth. ActiveVitamin B Complex tablet (4 sources)Start: 03-15-8823buwc 1 tablet by mouth once dailyStart: 06-16-2025 take 1 tablet by mouth once dailyVitamin B Complex tablet Active 1 TAB PO Daily June 16, 2025 12:00am Complies with 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 Completed/Discontinued Medications MedicationDrug Class(es)DatesSig (Normalized)Sig (Original)acetaminophen 325 mg / oxyCODONE hydrochloride 5 mg oral tablet (6 sources)Opioid AgonistStart: 12-05-2019 End: 47-66-8349agsa 1 tablet by mouth every six hours as needed for pain Oxycodone-Acetaminophen (Percocet) 5-325 mg tablet Discontinued 1 TAB PO Q6H as needed for pain 01 03December 05, 2019 June 03, 2025 11:03am onabotulinumtoxina 100 unt injection (20 sources)Acetylcholine Release InhibitorStart: 12-08-2024 End: 10-08-5575vzqlow 1 dose by intramuscular injection every 30 zmkt468 Units, INTRAMUSCULAR, ONCE (UP TO 30 DAYS AMB), 1 dose, On Fri12/08/24 at 1630, This record documents the total dose provided to patient. See progress note for specific locations and amounts administered. REFRIGERATE - Pharmaceutical Waste: Lab Pack -Start: 71-53-0031xnfnoiwvtwzznlftrK (Botox) 100 units injection Inject 100 Units into the shoulder, thigh, or buttocks every 3 months 05/28/2024 Active Start: 05-28-2024 End: 76-83-0761kisuwfeqrmur toxin type A 100 Units injection (BOTOX)Bupivacaine (4 sources)Amide Local AnestheticStart: 12-08-2024 End: 30-52-2515WQVntaaigsn HCl 25 mg injection (SENSORCAINE)Start: 12-08-2024 End: 51-34-3586ipkwzy 1 dose by intramuscular injection once25 mg, INTRAMUSCULAR, ONCE, 1 dose, On Fri12/08/24 at 1630Start: 07-06-2024 End: 23-99-9911VCEwhdxzwgf HCl 25 mg injection (SENSORCAINE)Start: 07-06-2024 End: 23-67-0181hpcmfy 1 dose by intramuscular injection once25 mg, INTRAMUSCULAR, ONCE, 1 dose, On Fri07/06/24 at 1130docusate sodium 50 mg / sennosides, detention 8.6 mg oral tablet (6 sources)Start: 12-05-2019 End: 37-29-3428kfqp 2 tablets by mouth once daily at bedtime as needed for constipationSennosides-Docusate Sodium (Senna Plus) 8.6-50 mg tablet Discontinued 2 TAB PO Daily at bedtime as needed for constipation December 05, 2019 1:00am June 03, 2025 11:04amdoxycycline monohydrate 100 mg oral capsule (11 sources)Tetracycline-class DrugStart: 30-30-1297occm 1 capsule by mouth every twelve hoursDoxycycline Monohydrate 100 MG 1 capsule Orally every 12 hrs for 10 days Jul, Not-Takingfluocinonide 0.5 mg/ml topical cream (7 sources)CorticosteroidFluocinonide 0.05 % External for 14 Days Not-Taking glycerin 1300 mg rectal suppository (6 sources)Non-Standardized Chemical AllergenStart: 04-12-2024 End: 62-95-2697Iehshkpj (Child) suppository Discontinued SUPP OH April 12, 2024 12:00am June 03, 2025 11:02amibuprofen 800 mg oral tablet (20 sources)Nonsteroidal Anti-inflammatory DrugStart: 05-12-2018 End: 67-00-2481ocbx 1 tablet by mouth three times daily as needed for pain Ibuprofen 800 mg Tablet Discontinued 800 MG PO Three times daily as needed for Pain May 12, 2018 12:00am June 03, 2025 11:33amtake 2 tablets by mouth every six hours as neededibuprofen 200 MG tablet Take 400 mg by mouth every 6 (six) hours if needed Activetake 3-4 tablets by mouth twice daily as needed ibuprofen (MOTRIN) 200 mg tablet Take 400 mg by mouth two times a day. 400-800 mg 3-4 PRN Activetake 2 tablets by mouth twice dailyibuprofen (MOTRIN) 200 mg tablet Take 400 mg by mouth two times a day. 0 ActiveComment on above:Take 400 mg by mouth every 6 hours as needed for pain.Take 400 mg by mouth two times a day.10 ml lidocaine hydrochloride 10 mg/ml injection (5 sources)Antiarrhythmic, Amide Local AnestheticStart: 02-02-2025 End: 57-46-9679kwkxgyhqz (PF) 10 mg/mL (1 %) 8 mL injection (XYLOCAINE)Start: 02-02-2025 End: mL, Injection - FOR ORTHO USE ONLY, ONCE, 1 dose, Starting on Fri02/02/25 at 1358, Until Fri02/02/25 at 1358Start: 04-07-2024 End: 74-84-9285gtucsnnih urojet 2 % 11 mL topical gel (GLYDO)Start: 09-14-2021 Lidocaine Viscous HCl 2 % 1 application topically every 2 hours prn Apply a small amount to the painful rash on the face every 2 hours as needed Sep, ActiveLoratadine (10 sources)Claritin Not-TakingClaritin Activenitrofurantoin, macrocrystals 25 mg / nitrofurantoin, monohydrate 75 mg oral capsule (6 sources)Nitrofuran AntibacterialStart: 05-12-2018 End: 96-43-6220xjpd 1 capsule by mouth every twelve hours at mealtime Nitrofurantoin Monohyd/M-Cryst (Macrobid) 100 mg Capsule Discontinued 100 MG PO Q12H May 12, 2018 12:00am April 12, 2024 3:30pm administer with a meal/food; swallow whole; do not open, crush, dissolve , or chewtamsulosin hydrochloride 0.4 mg oral capsule (20 sources)alpha-Adrenergic BlockerStart: 03-05-2024 End: 05-03-2327dbel 1 capsule by mouth once dailyTamsulosin (Flomax) 0.4 mg capsule Discontinued 0.4 MG PO Daily April 12, 2024 12:00am May 11:33amtake 1 capsule by mouth every twenty-four hoursFlomax 0.4 MG 1 capsule Orally Once a day for 15 days Active1 ml triamcinolone acetonide 40 mg/ml injection (2 sources)CorticosteroidStart: 02-02-2025 End: 49-87-1748kmfjjmbrmdrxy acetonide 80 mg injection (KeNALog 40)Start: 02-02-2025 End: 89-57-566875 mg, Injection - FOR ORTHO USE ONLY, ONCE, 1 dose, Starting on Fri02/02/25 at 1358, Until Fri02/02/25 at 1358 Problems Active Problems Problem ClassificationProblemDateDocumented DateEpisodic/ChronicAbdominal pain (20 sources)Pelvic and perineal pain; Translations: [Flank pain]Onset: 02-22-2023 Resolved: 76-24-2195JsvegkbsBvocasjcfeafeq/social admission (1 source)Drug therapy finding; Translations: [Other specified counseling] 54-41-7357OaerdkcqApjvecvw of urinary tract (15 sources)Kidney stone; Translations: [Calculus of kidney]EpisodicChronic kidney disease (1 source)Kidney transplant status; Translations: [Kidney transplant status] Onset: 99-86-5385SrsskkoOuhovhoa atherosclerosis and other heart disease (3 sources)Coronary arteriosclerosis; Translations: [Atherosclerotic heart disease of kletsel dehe w[place] coronary artery without angina pectoris]Onset: 07-04-2025 41-64-1577FevkjitQfvwkbzn of white blood cells (8 sources)Leukocytosis; Translations: [Elevated white blood cell count, unspecified]24-89-9769FcvrcolMbdyolvqcmehqqxf hemorrhage (2 sources)Hemorrhage of anus and rectum; Translations: [Rectal hemorrhage] Onset: 263315-48-6232UhfulbdoKfdtavwgeeceg symptoms and ill-defined conditions (1 source)DysuriaEpisodicHeadache; including migraine (3 sources)Headache; Translations: [Headache, unspecified]EpisodicJoint disorders and dislocations; trauma-related (2 sources)Derangement of meniscus due to injury of knee; Translations: [Derangement of unspecified meniscus due to old tear or injury, right knee] Onset: 157269-27-3880TrbufviWqfidjimpckvk (3 sources)Localized enlarged lymph nodes; Translations: [Localized enlarged lymph nodes]EpisodicMenopausal disorders (4 sources)Atrophic vaginitis; Translations: [Postmenopausal atrophic vaginitis] Onset: 823944-18-0186FbavxrqAlhbuct (5 sources)Candidiasis, unspecified; Translations: [Candidal stomatitis]Onset: 26-83-8488VlxnbnofRhhunebytjw deficiencies (2 sources)Cobalamin deficiency; Translations: [Deficiency of other specified B group vitamins]Onset: 915419-98-8491LrgbxkixYuzbdhdoekkteb (6 sources)Osteoarthritis of right knee joint; Translations: [Unilateral primary osteoarthritis, right knee]Onset: 049758-09-8677JfnpbzqXbtleezskymo (20 sources)Osteoporosis; Translations: [Age-related osteoporosis without current pathological fracture]Onset: 736004-32-4802UkaacmbIgzud aftercare (1 source)Other penitentiary (current) 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; Translations: [OTH SHANK TAPPER CURRENT DRUG THERAPY]Onset: 62-38-4991PyrokbfdDsqtg and ill-defined heart disease (1 source)Heart disease; Translations: [Heart disease, unspecified]02-14-2025 ChronicOther and ill-defined heart disease (1 source)Heart disease, unspecified; Translations: [Heart disease, unspecified] Onset: 83-43-7549UyfbqaqBjjzr circulatory disease (3 sources)Elevated blood-pressure reading without diagnosis of hypertension; Translations: [Elevated blood-pressure reading, without diagnosis of hypertension]EpisodicOther connective tissue disease (3 sources)Neuralgia; Translations: [Neuralgia and neuritis, unspecified] EpisodicOther connective tissue disease (3 sources)Laxity of ligament; Translations: [Disorder of ligament, unspecified site]EpisodicOther connective tissue disease (2 sources)Neuralgia and neuritis, unspecifiedEpisodicOther connective tissue disease (7 sources)Pelvic floor dysfunction; Translations: [Other specified disorders of muscle]29-14-7640RtiasjgjCxuzw connective tissue disease (3 sources)Muscle pain; Translations: [Myalgia, unspecified site]07-06-2024 EpisodicOther connective tissue disease (8 sources)Female pelvic floor dysfunction; Translations: [Other specified disorders of muscle]36-02-7669SlmnfbhwXapue connective tissue disease (1 source)Other specified disorders of muscle; Translations: [High-tone pelvic floor dysfunction]Onset: 67-15-5840MawwnvwaObbcb connective tissue disease (1 source)Myalgia, other site; Translations: [Myalgia, other site]Onset: 18-13-2400PmgqucfsOoysg diseases of bladder and urethra (1 source)Urethral caruncle; Translations: [Urethral caruncle]97-45-7474Ppnuesvt Other diseases of veins and lymphatics (1 source)Varicose veins of other specified sites; Translations: [VARICOSE VEINS OTHER SPEC SITES]Onset: 57-39-9036KcgckuwiSkhar ear and sense organ disorders (1 source)Sensorineural hearing loss, bilateral; Translations: [Sensorineural hearing loss, bilateral]56-23-8224GqwgknbHuqdj ear and sense organ disorders (1 source)Neural hearing loss; Translations: [Unspecified sensorineural hearing loss]06-08-9329ObntqgfYmlnu female genital disorders (1 source)Other specified conditions associated with female genital organs and menstrual cycleEpisodicOther female genital disorders (1 source)Vaginal dryness; Translations: [Other specified noninflammatory disorders of vagina]12-23-8523HwifoypkDtphj gastrointestinal disorders (1 source)Other disorders of retroperitoneum; Translations: [Other disorders of retroperitoneum]Onset: 03-70-6652VfsabjkqWehwn gastrointestinal disorders (1 source)Acute constipation; Translations: [Constipation, unspecified] 15-75-4677VbpzwykxRtgmt gastrointestinal disorders (6 sources)Disorder of retroperitoneum; Translations: [Other disorders of retroperitoneum]51-14-0254OxwrfffkZyddw injuries and conditions due to external causes (1 source)Allergy, unspecified, subsequent encounterEpisodicOther injuries and conditions due to external causes (1 source)H/O: fracture; Translations: [Personal history of (healed) traumatic fracture]12-16-8708ExycjizyUnnjr lower respiratory disease (6 sources)Nodule of lung; Translations: [Solitary pulmonary nodule]06-03-2024 EpisodicOther lower respiratory disease (1 source)Solitary pulmonary nodule; Translations: [Solitary pulmonary nodule] Onset: 73-94-9549QatowvztYvihp lower respiratory disease (1 source)Shortness of breath; Translations: [SOB (shortness of breath)]Onset: 50-77-2296PaxiqyeqMhoqo nervous system disorders (1 source)Other acute postprocedural pain; Translations: [Other acute postprocedural pain]Onset: 59-32-2099ChdkmjiwXwuep screening for suspected conditions (not mental disorders or infectious disease) (3 sources)CT of chest abnormal; Translations: [Abnormal findings on diagnostic imaging of other specified body structures]ChronicOther skin disorders (3 sources)Localized swelling, mass and lump, neck; Translations: [Localized swelling, mass and lump, neck]EpisodicOther upper respiratory disease (3 sources)Allergic rhinitis due to pollen; Translations: [Allergic rhinitis due to pollen]Onset: 38-01-1990LuszdapAqxyv upper respiratory disease (20 sources)Chronic rhinitis; Translations: [Chronic rhinitis]Onset: 03-17-2023 Resolved: 777946-14-1821UsvlmzuKlxjs upper respiratory disease (2 sources)Vasomotor rhinitis; Translations: [Vasomotor rhinitis]Onset: 280562-98-2950RasryloQmger upper respiratory disease (1 source)Vasomotor rhinitis; Translations: [Vasomotor rhinitis]Onset: 41-93-0147BtparieZsekf upper respiratory disease (2 sources)Hoarse; Translations: [Dysphonia]Onset: 373652-70-7965Qdkcpxxf Other upper respiratory disease (1 source)Dysphonia; Translations: [Dysphonia]Onset: 69-55-1878AjwuwnobItsdu upper respiratory infections (20 sources)Sinusitis; Translations: [Chronic sinusitis, unspecified]Chronic Other upper respiratory infections (3 sources)Acute maxillary sinusitis, unspecified; Translations: [Acute recurrent maxillary sinusitis]EpisodicPeripheral and visceral atherosclerosis (20 sources)Peripheral vascular disease; Translations: [Peripheral vascular disease, unspecified]Onset: 126085-28-6373JxbqjznMburmzyor; thrombophlebitis and thromboembolism (1 source)Embolism and thrombosis of renal veinChronicResidual codes; unclassified (1 source)Acquired absence of other specified parts of digestive tract; Translations: [ACQ ABSENCE OTH PART DIGESTV TRACT]Onset: 05-11-9535Poflicua Residual codes; unclassified (3 sources)Normal body mass index; Translations: [Body mass index (BMI) 22.0- 22.9, adult]EpisodicResidual codes; unclassified (1 source)Family history of aneurysm of artery; Translations: [Family history of ischemic heart disease and other diseases of the circulatory system]12-18-2023 EpisodicResidual codes; unclassified (2 sources)Postmenopausal state; Translations: [Asymptomatic menopausal state] 68-90-8870OyjluesnBcbpsxrd codes; unclassified (2 sources)FH: Cardiovascular disease; Translations: [Family history of ischemic heart disease and other diseases of the circulatory system]51-75-8686Ozhyyagz Residual codes; unclassified (1 source)Family history of osteoporosis; Translations: [Family history of osteoporosis]48-34-1289GewnupcfYlspmfmo codes; unclassified (1 source)Family history of ischemic heart disease and other diseases of the circulatory system; Translations: [Family history of cardiovascular disease] Onset: 19-40-3478TghuhhfeRhikbzis codes; unclassified (1 source)Localized edema; Translations: [Localized edema]Onset: 08-17-2025 EpisodicScreening and history of mental health and substance abuse codes (1 source)Personal history of nicotine dependence; Translations: [PERSONAL HISTORY OF NICOTINE DEPEND]Onset: 83-56-2142VnvsbzmfUltp and subcutaneous tissue infections (3 sources)Cellulitis of neck; Translations: [Cellulitis of neck]Episodic Spondylosis; intervertebral disc disorders; other back problems (3 sources)Degeneration of lumbar intervertebral disc; Translations: [Degeneration of lumbar or lumbosacral intervertebral disc]Onset: 06-17-2018 ChronicUnclassified (2 sources)D72.829 - Elevated white blood cell count, unspecified,R10.9 - Unspecified abdominal pain,M62.89 - Other specified disorders of muscleUnclassified (2 sources)D72.829 - Elevated white blood cell count, unspecified,R10.9 - Unspecified abdominal painUnclassified (2 sources)Autogenerated ProblemOnset: 906009-82-2887Npdnkcaxihqr (1 source)Trigger Point InjectionOnset: 36-13-6639Bpwfihfacqjj (1 source)chronic sialoadenitisOnset: 07-29-2025 Past or Other Problems Problem ClassificationProblemDateDocumented DateEpisodic/ChronicAortic; peripheral; and visceral artery aneurysms (20 sources)Abdominal aortic ectasia; Translations: [Abdominal aortic ectasia] Onset: 08-20-2023 Resolved: 553715-30-8741FjpchlrKzmaynp dysrhythmias (20 sources)ECG: sinus bradycardia; Translations: [Bradycardia, unspecified] Onset: 02-20-2024 Resolved: 321097-33-8834KhfgtwioFvavpwfwah associated with dizziness or vertigo (3 sources)Benign paroxysmal positional vertigo; Translations: [Benign paroxysmal positional vertigo]Onset: 52-91-0925YshqxcdmVxqsvzaq of mouth; excluding dental (20 sources)Dry mouth, unspecified; Translations: [Chronic sialadenitis]Onset: 10-07-2023 Resolved: 63-20-1655PrwbkraqUtejmkuff of lipid metabolism (20 sources)Hyperlipidemia; Translations: [Other hyperlipidemia]Onset: 02-19-2024 Resolved: 437508-84-7795FltoaqcMgnayvck; including migraine (20 sources)Tension-type headache; Translations: [Tension-type headache, unspecified, not intractable]Onset: 03-17-2023 Resolved: 833376-81-7780BzgtsxlBvov disorders (11 sources)Mood disordersOnset: 818017-47-1744Ifehnjwlcrn chest pain (20 sources)Chest pain; Translations: [Chest pain, unspecified]Onset: 06-12-2023 Resolved: 597619-20-4572CkgwijrrTyabvmmlllt deficiencies (20 sources)Malnutrition (calorie); Translations: [Moderate protein-calorie malnutrition]Onset: 03-03-2024 Resolved: 674488-36-4970RoilsubLxqea aftercare (3 sources)Follow-up status; Translations: [Encounter for follow-up examination after completed treatment for conditions other than malignant neoplasm]Onset: 402610-24-8504JxgyqqwfVsdeu aftercare (12 sources)Patient encounter status; Translations: [Encounter for follow-up examination after completed treatment for conditions other than malignant neoplasm]Onset: 602463-32-6747JddbaeyzLydck and unspecified benign neoplasm (3 sources)Polyp of colon; Translations: [Polyp of colon]Onset: 06-17-2018 EpisodicOther bone disease and musculoskeletal deformities (3 sources)Bone density finding; Translations: [Other specified disorders of bone density and structure, unspecified site]Onset: 10-32-0405IyseezzdMnabr connective tissue disease (20 sources)Elongated styloid process syndrome; Translations: [Disorder of ligament, unspecified site]Onset: 03-29-2020 Resolved: 914722-34-4115GctzafeoSbegi diseases of veins and lymphatics (20 sources)Renal vascular disorder; Translations: [Compression of vein]Onset: 02-19-2024 Resolved: 531786-57-8887PdubazecUodyj diseases of veins and lymphatics (20 sources)Varices of ovary; 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]Onset: 02-19-2024 Resolved: 230918-79-9158BvanmzueJrhpw diseases of veins and lymphatics (20 sources)Venous stenosis; Translations: [Compression of vein]Onset: 03-29-2020 Resolved: 065493-45-3885NktnblmgLgdrc female genital disorders (15 sources)Pelvic congestion syndrome; Translations: [Other specified conditions associated with female genital organs and menstrual cycle]Onset: 272296-61-9442QsejydozYawju gastrointestinal disorders (3 sources)Dysphagia; Translations: [Dysphagia, unspecified]Onset: 06-17-2018 EpisodicOther gastrointestinal disorders (20 sources)Pharyngeal dysphagia; Translations: [Dysphagia, pharyngeal phase] Onset: 03-17-2023 Resolved: 254813-82-7855SjwvhenuFdvix injuries and conditions due to external causes (4 sources)Personal history of (healed) traumatic fracture; Translations: [History of fracture of pelvis]Onset: 47-77-0565LsaoprkyYjkjg screening for suspected conditions (not mental disorders or infectious disease) (12 sources)Encounter for screening mammogram for malignant neoplasm of breast; Translations: [Patient encounter status]Onset: 35-84-4070NfprpcazKdrfa skin disorders (3 sources)Asteatosis cutis; Translations: [Xerosis cutis]Onset: 06-17-2018 EpisodicOther skin disorders (19 sources)Mass of right submandibular region; Translations: [Localized swelling, mass and lump, head]Onset: 12-01-2023 Resolved: 786366-22-1268ToyixlrwUzlvbpr on above:Problem List clean-up per request of Phys. EHR CmteResidual codes; unclassified (20 sources)Family history of aneurysm of abdominal aorta; Translations: [Family history of ischemic heart disease and other diseases of the circulatory system] Onset: 08-20-2023 Resolved: 371674-43-6698VzfaleaoJmhhkjvb codes; unclassified (20 sources)Submandibular salivary gland swelling; Translations: [Localized edema]Onset: 10-07-2023 Resolved: 869456-61-4280FekgmjbcQbbzkoza codes; unclassified (4 sources)Family history of osteoporosis; Translations: [Family history of osteoporosis in mother]Onset: 41-24-7909UvqsyiuxPvacywbbabq; intervertebral disc disorders; other back problems (19 sources)Neck pain; Translations: [Cervicalgia]Onset: 12-01-2023 Resolved: 516504-33-2917FrildiniXiyjakm on above:Problem List clean-up per request of Phys. EHR CmteSubstance-related disorders (20 sources)Narcotic drug user; Translations: [Opioid use, unspecified, uncomplicated]Onset: 02-19-2024 Resolved: 993546-53-8170QkhuxwthFvqotvcmxiwf (1 source)Contact with and (suspected) exposure to covid-19; Translations: [Contact with and (suspected) exposure to covid-19]Unclassified (1 source)Contact with and (suspected) exposure to covid-19 Z20.822Unclassified (17 sources)Exposure to acute respiratory syndrome coronavirus 2; Translations: [Contact with and (suspected) exposure to covid-19]Unclassified (1 source)Abdominal 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, unspecified part I71.40Unclassified (5 sources)Pain in pelvis; Translations: [Pelvic pain]Onset: 08-20-2023 Resolved: 380773-08-7459Iqlde infection (2 sources)Zoster without complications; Translations: [Herpes zoster without complication B02.9]Onset: 07-29-2021 Resolved: 54-29-3757Txcdqimc Results Test NameValueInterpretationReference RangeFacilityCT NECK SOFT TISSUE W CONTon 41-25-2181UD NECK SOFT TISSUE W CONTCT NECK SOFT TISSUE W CONT CT NECK SOFT TISSUE W CONT: 08/09/2025 PROVIDED HISTORY: * 69 years old Female * Chronic sialoadenitis COMPARISON: 08/12/2023 TECHNIQUE: 1. CT of the neck performed following the uneventful administration of intravenous contrast. Multiplanar reformats were created and reviewed. 2. All CT scans at this facility use dose modulation, iterative reconstruction, and/or weight baseddosing when appropriate to reduce radiation dose to as low as reasonably achievable. FINDINGS: No acute intracranial abnormality. Partially visualized absent kletsel dehe [place] lenses. Paranasal sinuses, temporal bone air structures are relatively well aerated. Degenerative changes of the temporomandibular joints. Artifact from extensive dental hardware limits evaluation as a portions of the anterior face and oral cavity. Similar hyperattenuating appearance of the submandibular glands, without evidence of definite sialolith or periglandular inflammatory changes. Parotid glands within normal limits for technique. No focal mass along the aerodigestive tract with the limitations of dense artifact. Laryngeal structures are relatively preserved for degree of large opposition. No suspicious thyroid nodules. No significant cervical adenopathy. Major cervical vascular enhancement preserved with scattered atherosclerotic changes primarily of the left carotid bifurcation. Upper lung zone predominant emphysematous changes and right greater than left biapical parenchymal scarring. Multilevel degenerative changes of the cervical spine. No suspicious osseus lesions within limitations of motion artifact. No acute abnormality in the visualized skull base. IMPRESSION: 1. Persistent increased enhancement of the submandibular glands, for which sialoadenitis may be considered. No evidence of sialolithiasis or abnormal intra-/extrahepatic glandular duct dilation. 2. No evidence of cervical adenopathy. 3. Otherwise, no new acute abnormality of the neck, within limitations of dense artifact from dental hardware. Finalized by Ayleen Smiley MD on 08/09/2025 1:12 [facility] BERRIENormalL[facility] Hospitalca [facility] [id number] Visit ([facility]) KAREN ZAIDI ([id number]) 1955 F Date Time Provider Department 07/21/25 3:30 PM ECHO CARD [facility] During your visit today, we recorded the following information about you: Tran Tran RN 07/22/2025 11:36 AM Signed 07/22/2025 11:35 AM IV Access: IV IV Site: left Forearm IV GAUGE 24 gauge IV Removal Date 07-21-25 Time 1610 Reactions: WNL Order reviewed by nurse:yes Medications: Definity - dosage 6 ml Reaction: No Referring Provider: SVETA STRONG [[id number]] Allergies As of Date: 07/21/2025 Noted Allergy Reaction CLINDAMYCIN 06/30/2018 2 - Rash 12 - Shortness of Breath DOXYCYCLINE 12/18/2023 2 - Rash VENOM-HONEY BEE 12/05/2019 2 - Rash CODEINE 06/30/2018 8 - GI Upset Date Reviewed: 07/07/2025 Reviewed by: Reshma Brown LPN - Fully Assessed Visit Diagnoses:Family history of cardiovascular disease [Z82.49] SOB (shortness of breath) [R06.02] Coronary artery disease involving kletsel dehe wintun coronary artery of kletsel dehe w[place] heart without angina pectoris [I25.10] Order(s):STRESS ECHO TREADMILL [[id number]] Order #: [id number]: 1 [] perflutren lipid microspheres 1.3 mL in NaCl (PF) 0.9% 10 mL injection (DEFINITY)Disp: Rfl: Prescriptions as of 07/22/2025 - cholecalciferol, vitamin D3, (VITAMIN D3 ORAL) [...] - atorvastatin (LIPITOR) 20 mg tablet Take 10 mg by mouth every evening. - fluticasone (FLONASE) 50 mcg/actuation nasal spray Use 1 Rugby in the nose as needed for cold/allergy symptoms. Take in allergy season - montelukast (SINGULAIR) 10 mg tablet Take 10 mg by mouth once daily. - ibuprofen (MOTRIN) 200 mg tablet Take 400 mg by mouth two times a day. 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/2024 Narcotic drug use [F11.90] 02/19/2024 Sinus bradycardia on ECG [R00.1] 02/20/2024 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 Malnutrition of moderate degree (HCC) [E44.0] 03/03/2024 SOB (shortness of breath) [R06.02] 07/04/2025 Family history of cardiovascular disease [Z82.4*07/04/2025 Coronary artery disease involving kletsel dehe wintun gibbs*07/04/2025 Prescriptions ordered this encounter Disp Refills Start End PERFLUTREN LIPID MICROSPHERES 1.1 MG* 07/21/2025 07/21/2025 Route: IV Encounter Status:Closed by TRAN TRAN on 07/22/25[facility] ECHO TREADMILLon [id number] ECHO TREADMILLStress Cupola Liner Report: Stress Echo [facility] Date of service: 07/21/2025 3:19:42 PM TERM CARE PHARMACIST Supervising physician: Adriana Petty MD PATIENT: Name: MRS. KAREN ZAIDI Age: 69 years Gender: F The supervising physician was in the department and immediately available. Final Echocardiography Report: Stress Echo [facility] Date of service: 07/21/2025 3:19:42 PM TERM CARE PHARMACIST Ordering physician: SVETA STRONG Exam indication: Shortness of Breath Technologist: Lou Arevalo Interpreting physician: Adriana Petty MD PATIENT: Name: MRS. KAREN ZAIDI : 1955 Age: 69 years Gender: F Primary rhythm: sinus. Height: 170.20 cm BSA: 1.73 m Weight: 63.60 kg BMI: 22.0 kg/m Heart rate 90 bpm Blood pressure 124/70 mmHg Color Doppler was utilized to interrogate the cardiac valves assessed and spectral Doppler was utilized to determine the flow velocities and pressure gradients reported in this exam. MEASUREMENTS: Value Indexed Normal Max aortic dimension 3.8 cm Ao < 3.8 Left atrial volume 34 ml (4ch A-L) 20 ml/m Rashaun <= 34 LV ID (diastole) 4.7 cm (2D) 2.73 cm/m LV ID (systole) 2.7 cm (2D) 1.55 cm/m IVS, leaflet tips 0.7 cm (2D) Posterior wall thickness 0.8 cm (2D) Left ventricular mass 112 g (2D) 65 g/m LV stroke volume 39 ml (2D biplane) LV end diastolic volume 70 ml (2D biplane) 40.5 ml/m 29<=EDVi<62 LV end systolic volume 32 ml (2D biplane) 18.2 ml/m Ejection Fraction 55 % (2D biplane) EF > 54 FINDINGS: LEFT VENTRICLE The left ventricle is normal in size. Left ventricular systolic function is normal. Mitral annular lateral E/e': 4.9. Mitral annular septal E/e': 7.6. Definity contrast used for endocardial border detection. Wall Motion: Rest: All scored segments are normal. Stress: RIGHT VENTRICLE The right ventricle is normal in size. Right ventricular systolic function is normal. RV systolic tissue Doppler velocity is 23.0 cm/s. Estimated right ventricular systolic pressure is 33 mmHg consistent with normal pulmonary artery pressures. Estimated right atrial pressure is 3 mmHg (although IVC not seen). LEFT ATRIUM The left atrial cavity is normal in size. RIGHT ATRIUM The right atrial cavity is normal in size (RA area = 17.3 cm ). MITRAL VALVE There is trace mitral valve regurgitation. There is mild thickening. The pressure half time is 61 msec. The peak mitral E/A ratio is 0.98. The average mitral E/e' ratio is 6.2. The mitral flow deceleration time is 211 msec. TRICUSPID VALVE There is moderate (2+) tricuspid valve regurgitation. AORTIC VALVE There is no aortic valve regurgitation. Tricuspid aortic valve. The peak gradient is 6 mmHg (peak velocity = 120.0 cm/s). PULMONIC VALVE There is trace pulmonic valve regurgitation. There is no thickening. The peak gradient is 6 mmHg. AORTA The visualized aorta is borderline dilated. Measurements - Aortic valve annulus 1.8 cm. Sinus: 3.8 cm. Mid ascending aorta 3.5 cm. INTERVENTRICULAR SEPTUM The interventricular septum is normal. PERICARDIUM There is no pericardial effusion. STRESS ECHO Peak HR 179 bpm. (118 % MPHR) Peak BP 174 mmHg/78 mmHg. Rest Stress TR velocity 275.0 cm/s 305.0 cm/s CONCLUSIONS: - Exam indication: Shortness of Breath - PLAX images not obtained with stress. - Within the above limitations exercise stress echo was negative for ischemia at 118 % of MPHR (8.1METS). - The left ventricle is normal in size. Left ventricular systolic function is normal. EF = 55 5% (2D biplane) Definity contrast used for endocardial border detection. - The right ventricle is normal in size. Right ventricular systolic function is normal. - The visualized aorta is borderline dilated with a maximal dimension of 3.8 cm. - There is moderate (2+) tricuspid valve regurgitation. - Estimated right ventricular systolic pressure is 33 mmHg consistent with normal pulmonary artery pressures. Estimated right atrial pressure is 3 mmHg (although IVC not seen). - The patient has not had a prior CC echocardiographic exam for comparison. Final Stress ECG Report: Stress Echo [facility] Date of service: 07/21/2025 3:19:42 PM TERM CARE PHARMACIST Ordering physician: SVETA STRONG senior engineering specialist: Kira [employer] Worker: Juliet Ponce Interpreting physician: Adriana Petty MD Patient name: MRS. KAREN ZAIDI Age: 69 years Gender: F Height: 170.20 cm BSA: 1.73 (more content not included)...NormalBarnesville HospitalFPG ECG *PCP OFFICE ONLY*on 44-23-2597ICP ECG *PCP OFFICE ONLY* [facility] [place] [address] [place] [address] Electrocardiograph Report Signed Patient: Karen Zaidi MR#: [id number] : 1955 Acct:[id number] Age/Sex: 69 / F ADM Date: 07/13/25 Loc: [facility] Room: Type: [facility] Attending Dr: Ammon Osborne MD Ordering Provider: Ammon Osborne MD Date of Service: 07/13/2511/06/1199 ECG/FPG ECG *PCP OFFICE ONLY*: R00.2 - Copies to: Test Reason : Blood Pressure : */* mmHG Vent. Rate : 76 BPM Atrial Rate : 76 BPM P-R Int : 114 ms QRS Dur : 84 ms QT Int : 396 ms P-R-T Axes : 31 67 63 degrees QTcB Int : 445 ms Normal sinus rhythm Normal ECG Confirmed by Aline Tolbert ([id number]) on 07/13/2025 10:20:52 PM Referred By: Electronically Signed By: Aline Tolbert Transcribed By: MUS Signed By Aline Tolbert MD 5 2220[facility] GroupCNOVita [id number] [facility] KAREN ZAIDI ([id number]) 1955 F Date Time Provider Department 07/07/25 1:00 PM [facility] During your visit today, we recorded the following information about you: Blood pressure Weight Height 146/80 63.6 kg 1.702 m Augustina Vargas MD 07/08/2025 10:22 AM Signed [facility] SECTION FOR CHRONIC PELVIC PAIN OUTPATIENT VISIT DATE 07/07/2025 OUTPATIENT VISIT TYPE FOLLOW UP CHIEF COMPLAINT follow up HISTORY OF PRESENT ILLNESS Karen is a 69 year old female who is in today for follow up. Since last visit: Patient states that back in february she was doing great and didn't need TPIs /Botox at that time. Then pain increased and patient had to go to the ED due to pain. 06/06/25 went to the ER, she was getting ready to travel the next step She did feel some achiness on the L side She had done some Went to the ER for L sided and felt typical pelvic pain In the ER and wbc was 28, She did have knee steroid injection Had 2 ct scans which were normal , no source of infection found Has f/u w hematology + Intensity of pain: mild to moderate Average Pain level: 4 on a scale of 0-10 Emergency room visits for pain since last visit: yes Level of physical activity and mobility: not as good as it used to be Quality of sleep: okay Mood: mostly okay Side effects of medications for pain: no SUMMARY FROM LAST VISIT Date: 03/08/2025 ASSESSMENT/PLAN Encounter Diagnosis ICD-10-CM 1. High-tone pelvic [...] No specialty comments available. PHYSICAL EXAM BP 146/80 Ht 170.2 cm (5' 7 ) Wt 63.6 kg (140 lb 3.4 oz) LMP (LMP Unknown) BMI 21.96 kg/m? Physical Exam General: The patient is a well-appearing female in no acute distress. Examination Abd llq pain Abdominal myofacial trigger points - + Uterus neg Retrocervixneg Adnexa neg Pelvic Floor Musculature RIGHT SIDED Pubococcygeus 0 Iliococcygeus 0 Coccygeus 0 Obturator 0 LEFT SIDED Pubococcygeus2 Iliococcygeus 2 Coccygeus 2 Obturator 2 (Pain Scale 1 to 3, 3= extreme) RV exam - deferred LABS/IMAGING: ASSESSMENT Encounter Diagnosis ICD-10-CM 1. Trigger point of abdomen R10.9 TRIGGER POINT INJECTION MULTI 1-2 MUSCLE GR BUPivacaine HCl 25 mg injection (SENSORCAINE) 2. High-tone pelvic floor dysfunction M62.89 3. Myalgia, other site M79.18 onabotulinum toxin type A 100 Units injection (BOTOX) TRIGGER POINT INJECTION MULTI 1-2 MUSCLE GR BUPivacaine HCl 25 mg injection (SENSORCAINE) PLAN L botox and L abd TPI done Fu as needed Patient verbalized understanding of the plan of care and all questions were answered to her stated satisfaction. Written and verbal health teaching given to patient, patient verbalizes understanding and agrees with treatment plan. I personally interviewed, confirmed and edited the above information if obtained by others. Augustina Vargas MD Section of Chronic Pelvic Pain 07/07/2025 2:31 PM Procedure charge only ORDERS PLACED . 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 Vaginal botox done on: 07/06/2024, 12/08/2024, L side 06/2025 2. Abdominal TPI done on: 07/06/2024, 12/08/2024, L side 06/2025 Nonhormonal Medications 1. Flexeril 2. gabapentin 300 mg 3. motrin Hormonal medications (IUD, control pill, GNRH) 1. Esterase cream Services (GI, urology, pain psych,PFPT) 1. PFPT PROCEDURE UNIVERSAL PROTOCOL / SAFETY CHECKLIST Procedure to be Performed: abdominal trigger point injections and vaginal botox injections Sign In: A Moment of CARE was completed. Appropriate PPE (Personal Protective Equipment) worn by all providers involved w (more content not included)...NormalBrecksville VA / Crille HospitalOVon [id number] Visit ([facility]) KAREN ZAIDI ([id number]) 1955 F Date Time Provider Department 07/04/25 10:30 AM SVETA STRONG [facility] During your visit today, we recorded the following information about you: Pulse Blood pressure Weight Height 68/minute 148/81 62.8 kg 1.702 m Sveta Strong MD 07/04/2025 3:53 PM Signed [facility] Ella Varma Department of Cardiovascular Medicine SECTION OF INTERVENTIONAL CARDIOLOGY OUTPATIENT VISIT DATE 07/04/2025 OUTPATIENT VISIT TYPE NEW PRIMARY CARE PHYSICIAN: Ammon Osborne ([facility]) [address] [place] [address] REFERRING PHYSICIAN: Nigel Bowens [address] [place] [id number] CHIEF COMPLAINT: Patient presents with: Establish Care Recording using Appsperse software for draft documentation of the visit was discussed with the patient/authorized telephone sales representative; all questions welcomed and answered. Patient/authorized telephone sales representative agreed to proceed HISTORY OF PRESENT ILLNESS: Mrs Russ is a 69 Y/O female with PMH of the [place] Syndrome, Atherosclerosis and hip Fx with osteoporosis, and Fhx of the Premature Cad, and aneurysm who wants to be started on the medication and has been sent for the cardiac clearance. Risk factors for coronary artery disease hypertension, history of smoking, family history of CAD She denies chest pain, lightheadedness, syncope, claudication, and leg swelling. Subjective She recently has high WBC and is being evaluated for CML as well. She is active and mentioned that sometimes gets Shortness of Breath but she relate it to her pelvic congestion syndrome.She had CT chest that showed aneurysmal dilation of PA and PAHT. 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 Osteoporosis Traumatic closed fracture of pelvis with minimal displacement (HCC) 09/02/2024 multiple, R sacral fracture, R inf/ sup pubic rami fracture, L superior rami pubic ramus fracture PAST SURGICAL HISTORY Procedure Laterality Date PAST SURGICAL HISTORY OF Right 2020 styloidectomy for [place] syndrome PAST SURGICAL HISTORY OF R knee menisus repair PAST SURGICAL HISTORY OF falloption tube tied PAST SURGICAL HISTORY OF 11/24/2023 right submandibular duct dilation with steroid irrigation REMOVAL GALLBLADDER N/A KIDNEY TRANSPLANT 03/02/2020 auto transplant SOCIAL HISTORY SOCIAL HISTORY[1] FAMILY HISTORY Problem Relation Age of Onset Aneurysm Father Hypertension Father Hypertension Mother Aneurysm Mother other (pulmonary embolism) Mother other (varicose veins) Mother Hypertension Brother Heart Attack Brother Stroke Brother Anesthesia Problems No Family History ALLERGIES: ALLERGIES Allergen Reactions Clindamycin Rash, Shortness of Breath Doxycycline Rash Venom-Honey Bee Rash Codeine GI Upset MEDICATIONS: cholecalciferol, vitamin D3, (VITAMIN D3 ORAL)Take by mouth.Disp: Rfl: VITAMIN B COMPLEX ORALTake by mouth.Disp: Rfl: cyclobenzaprine (FLEXERIL) 5 mg tablet1 tablet at bedtime as needed. Use vaginallyDisp: 90 tabletRfl: 4 estradiol (ESTRACE) 0.01 % (0.1 mg/gram) vaginal creamUse 0.5 g vaginally daily at bedtime. Apply finger tipped size to vulva, urethra nightlyDisp: 42.5 gRfl: 2 calcium carbonate/vitamin D3 (CALTRATE 600 + D ORAL)Take 600 mg by mouth two times a day.Disp: Rfl: atorvastatin (LIPITOR) 20 mg tabletTake 20 mg by mouth every evening.Disp: Rfl: fluticasone (FLONASE) 50 mcg/actuation nasal sprayUse 1 Rugby in the nose as needed for cold/allergy symptoms. Take in allergy seasonDisp: Rfl: montelukast (SINGULAIR) 10 mg tabletTake 10 mg by mouth once daily.Disp: Rfl: ibuprofen (MOTRIN) 200 mg tabletTake 400 mg by mouth two times a day. 400-800 mg 3-4 PRNDisp: Rfl: REVIEW OF SYSTEMS All 12 systems reviewed, all negative except what mentioned in HPI. Objective PHYSICAL EXAMINATION BP 148/81 Pulse 68 Ht 170.2 cm (5' 7 ) Wt 62.8 kg (138 lb 7.2 oz) LMP (LMP Unknown) SpO2 100% BMI 21.68 kg/m? General: Well appearing, in no acute distress, speaking in complete sentences. Skin: No clubbing, no cyanosis. Neck: No jugular venous distention, no carotid bruits, carotids have a normal upstroke, no palpable thyromegaly. Lungs: Clear to auscultation bilaterally, no wheezing or rhonchi. Heart: S1 normal, P2 prominent , no heaves, Systolic murmur at tricuspid area Abdomen: Soft, nontender, bowel sounds normal, no palpable organomegaly, no bruits. Extremities: No peripheral edema . Grade 2/4 distal pulses bilaterally. CARDIOVASCULAR MEDICINE TESTING: I have personally reviewed the Electrocardiogram and CT Chest Scan. Last EKG Result Conclusion ECG COMPLETE Collected: 07/04/2025 10:27 AM (Preliminary resul (more content not included)...NormalBarnesville HospitalECG COMPLETEon [id number] COMPLETEVentricular Rate : 68 BPM Atrial Rate : 68 BPM P-R Interval : 112 ms QRS Duration : 84 ms Q-T Interval : 398 ms QTC Calculation(Bazett) : 423 ms Calculated P Wells : 56 degrees Calculated R Wells : 93 degrees Calculated T Wells : 66 degrees NORMAL SINUS RHYTHM RIGHT AXIS BORDERLINE ECG Confirmed by GRICEL CASTRO MD ([id number]) on 07/25/2025 4:42:32 PM NAME : KAREN ZAIDI PID : [id number] : 1955 Gender : Female Race : ORD : [id number] Procedure Date : Jul 04 2025 10:27:22 Edit Date : Jul 25 2025 16:42:35 Diagnosis: NORMAL SINUS RHYTHM RIGHT AXIS BORDERLINE ECG Confirmed by GRICEL CASTRO MD ([id number]) on 07/25/2025 4:42:32 PM Test Reason : I25.10 Coronary artery disease involving [place] coronary artery of k[place]sel de[place]un heart Location : 225 : F[facility]ARD Overread By : GRICEL CASTRO MD Edited By : GRICEL CASTRO MD Referred By : NIGEL BOWENS Acquired by : CW,NormalSelect Medical Specialty Hospital - [facility] North ClevelandBasophils/100 WBC Manual cnt (Bld)Ordered By: Neelima Ceballos on 30-15-5375Fazaxnyeo/100 WBC (Bld)7.0 %High 0.2-2.0[facility] HospitalBlasts/100 WBC Manual cnt (Bld)Ordered By: Neelima Ceballos on 63-98-9020Vtfjhe/100 WBC (Bld)0.0 %[facility] HospitalEosinophils/100 WBC Manual cnt (Bld)Ordered By: Neelima Ceballos on 80-48-0542Sycysfufpso/100 WBC (Bld)2.0 %0.9-7.0[facility] Erythrocyte distribution width Auto (RBC) [Ratio]Ordered By: Neelima Ceballos on 12-35-0159Txqwbixtkph distribution width (RBC) [Ratio]15.9 %High11.0-15.0 [facility] HospitalHematocrit Auto (Bld) [Volume fraction]Ordered By: Neelima Ceballos on 12-33-9020Tkvrbmzdnu (Bld) [Volume fraction]42.3 % 36.0-48.0[facility] HospitalHemoglobin [Mass/volume] in Blood Ordered By: Neelima Ceballos on 09-95-9628Reugpylpjy (Bld) [Mass/Vol]14.3 g/dL 12.0-16.0[facility] HospitalLaboratory - Chemistry and Chemistry - challengeOrdered By: Neelima Ceballos on 33-49-3693FWW [Catalytic activity/Vol] 460 U/QBult26-271JtnrbcesvGreen Cross HospitalUrate [Mass/Vol]6.6 mg/dLHigh 2.6-6.0[facility] HospitalLaboratory - Hematology and Cell counts Ordered By: Neelima Ceballos on 96-02-7220Qmbp form neutrophils/100 WBC (Bld)2.0 % 0-5FHocking Valley Community HospitalLymphocytes/100 WBC (Bld)15.0 %Low20.5-60.0 [facility] HospitalMonocytes/100 WBC (Bld)5.0 %1.7-12.0[facility] HospitalLeukocytes [#/volume] corrected for nucleated erythrocytes in Blood by Automated counOrdered By: Neelima Ceballos on 06-28-2025 WBC corrected for nucl RBC Auto (Bld) [#/Vol]26.5 10 3/uLHigh4.0-11.0The Jewish HospitalH Auto (RBC) [Entitic mass]Ordered By: Neelimacorazon Ceballos on 06-40-0462WCI (RBC) [Entitic mass]30.4 pg26.7-34.0[facility] HospitalMCHC Auto (RBC) [Mass/Vol]Ordered By: Neelima Lin on 41-14-9188QFFT (RBC) [Mass/Vol]33.8 g/dL29.9-35.2FHocking Valley Community HospitalMCV Auto (RBC) [Entitic vol]Ordered By: Neelima Ceballos on 83-00-9430KKO (RBC) [Entitic vol]90.0 fL81.0-99.0[facility] HospitalMyelocytes/100 WBC Manual cnt (Bld)Ordered By: Neelima Ceballos on 37-62-5585Bvylgoykdt/100 WBC (Bld)8.0 % [facility] HospitalNo Panel InformationOrdered By: Neelima Ceballos on 94-82-1321Tvvihmuq Basophils (Manual)1.85 10 3/uLHigh0.00-0.10[facility] HospitalBand Neutrophils # (Manual)0.5 10 3/uLHigh0.0-0.3 [facility] HospitalBlast Cells # (Manual)0[facility] HospitalEosinophils # (Manual)0.53 10 3/uL0.00-0.70[facility] HospitalLymphocytes # (Manual)3.97 10 3/uLHigh1.20-3.80[facility] HospitalMonocytes # (Manual)1.32 10 3/uLHigh0.30-0.80[facility] HospitalMyelocytes # (Manual)2.12[facility] Segmented Neutrophils # (Manual)16.16 10 3/uLHigh1.4-6.5FHocking Valley Community HospitalPlatelet mean volume Auto (Bld) [Entitic vol]Ordered By: Neelima Ceballos on 26-75-1712Avbkkusk mean volume (Bld) [Entitic vol]11.0 fL9.5-13.5 [facility] HospitalPlatelets Auto (Bld) [#/Vol]Ordered By: Neelima Lin on 52-40-4876Wqqhhmehu (Bld) [#/Vol]390 10 3/kO163-688MlibpyafmGreen Cross HospitalRBC Auto (Bld) [#/Vol]Ordered By: Neelima Lin on 91-86-8919ZEX (Bld) [#/Vol]4.70 10 6/uL4.20-5.40[facility], Beachwoodegmented neutrophils/100 WBC Manual cnt (Bld)Ordered By: Neelima Ceballos on 06-28-2025 Segmented neutrophils/100 WBC (Bld)61.0 %43.0-75.0[facility] HospitalBasophils/100 WBC Manual cnt (Bld)Ordered By: Johan Martinez on 06-14-2025 Basophils/100 WBC (Bld)12.0 %High0.2-2.0[facility] Eosinophils/100 WBC Manual cnt (Bld)Ordered By: Johan Martinez on 06-14-2025 Eosinophils/100 WBC (Bld)5.0 %0.9-7.0[facility] Erythrocyte distribution width Auto (RBC) [Ratio]Ordered By: Johan Martinez on 12-69-1120Idpvhzcrpeu distribution width (RBC) [Ratio]15.7 %High11.0-15.0 [facility] HospitalHematocrit Auto (Bld) [Volume fraction]Ordered By: Johan Martinez on 09-49-0844Xwsfpjqxbk (Bld) [Volume fraction]42.1 %36.0-48.0 [facility] HospitalHemoglobin [Mass/volume] in BloodOrdered By: Johan Martinez on 60-79-2698Wrqjfjcjca (Bld) [Mass/Vol]13.9 g/dL12.0-16.0 [facility] HospitalLaboratory - Hematology and Cell countsOrdered By: Johan Martinez on 64-18-6536Tqqc form neutrophils/100 WBC (Bld)4.0 %0-5 [facility] HospitalLymphocytes/100 WBC (Bld)12.0 %Low20.5-60.0 [facility] HospitalMonocytes/100 WBC (Bld)3.0 %1.7-12.0[facility] HospitalLeukocytes [#/volume] corrected for nucleated erythrocytes in Blood by Automated counOrdered By: Johan Martinez on 06-14-2025 WBC corrected for nucl RBC Auto (Bld) [#/Vol]21.9 10 3/uLHigh4.0-11.0[facility] Auto (RBC) [Entitic mass]Ordered By: Johan Martinez on 04-73-0199KIG (RBC) [Entitic mass]30.2 pg26.7-34.0[facility] HospitalMCHC Auto (RBC) [Mass/Vol]Ordered By: Johan Martinez on 42-42-6534NKNX (RBC) [Mass/Vol]33.0 g/dL29.9-35.2FHocking Valley Community HospitalMCV Auto (RBC) [Entitic vol]Ordered By: Johan Martinez on 28-30-3270URO (RBC) [Entitic vol]91.3 fL81.0-99.0[facility] HospitalMetamyelocytes/100 WBC Manual cnt (Bld)Ordered By: Johan Martinez on 31-01-0123Kuhdxwvadskith/100 WBC (Bld)7.0 %[facility] HospitalMyelocytes/100 WBC Manual cnt (Bld) Ordered By: Johan Martinez on 25-99-5491Qdpipfenna/100 WBC (Bld)5.0 %[facility] HospitalNo Panel InformationOrdered By: Johan Martinez on 51-86-4056Qnzqtbkp Basophils (Manual)2.62 10 3/uLHigh0.00-0.10[facility] HospitalBand Neutrophils # (Manual)0.9 10 3/uLHigh0.0-0.3FHocking Valley Community HospitalEosinophils # (Manual)1.09 10 3/uLHigh0.00-0.70[facility] HospitalLymphocytes # (Manual)2.62 10 3/uL1.20-3.80[facility] HospitalMetamyelocytes # (Manual)1.53[facility] HospitalMonocytes # (Manual)0.65 10 3/uL0.30-0.80[facility] Myelocytes # (Manual)1.09[facility], Beachwoodegmented Neutrophils # (Manual)11.38 10 3/uLHigh1.4-6.5FHocking Valley Community HospitalPlatelet mean volume Auto (Bld) [Entitic vol]Ordered By: Johan Martinez on 93-38-7806Muhkdwmn mean volume (Bld) [Entitic vol]11.5 fL9.5-13.5FHocking Valley Community Hospital Platelets Auto (Bld) [#/Vol]Ordered By: Johan Martinez on 78-48-8160Ratgotrxo (Bld) [#/Vol]333 10 3/yI655-505QufuktmbiGreen Cross HospitalRBC Auto (Bld) [#/Vol]Ordered By: Johan Martinez on 21-86-5211BGL (Bld) [#/Vol]4.61 10 6/uL 4.20-5.40[facility], Beachwoodegmented neutrophils/100 WBC Manual cnt (Bld)Ordered By: Johan Martinez on 97-04-4544Wzqlonsaz neutrophils/100 WBC (Bld)52.0 %43.0-75.0[facility] HospitalErythrocyte distribution width Auto (RBC) [Ratio]Ordered By: Johan Martinez on 43-77-9743Cfrceaystxl distribution width (RBC) [Ratio]15.5 %High11.0-15.0[facility] HospitalGlomerular filtration rate (GFR) estimation in non- AmericanOrdered By: Johan Martinez on 25-46-6801ZQV/1.73 sq M.predicted among non-blacks MDRD (S/P/Bld) [Vol rate/Area]mL/min/{1.73_m2}>=60 mL/min/1.73m 2[facility] Medical CenterHematocrit Auto (Bld) [Volume fraction]Ordered By: Johan Martinez on 98-36-3723Kzhqruvrdq (Bld) [Volume fraction]39.9 %36.0-48.0[facility] HospitalHemoglobin [Mass/volume] in BloodOrdered By: Johan Martinez on 29-89-4877Hqshdupniz (Bld) [Mass/Vol]13.1 g/dL12.0-16.0[facility] HospitalLaboratory - Chemistry and Chemistry - challengeOrdered By: Johan Martinez on 72-97-9824Unwinsb [Mass/Vol]9.2 mg/dL8.5-10.1FHocking Valley Community HospitalChloride [Moles/Vol]108 mmol/SUref66-531OogvncmvdGreen Cross HospitalCO2 [Moles/Vol]30.4 mmol/L21.0-32.0[facility] Creatinine [Mass/Vol]0.81 mg/dL0.55-1.02[facility] GFR/1.73 sq M.predicted MDRD (S/P/Bld) [Vol rate/Area]mL/min/{1.73_m2}>=60 mL/min/1.73m [address] [place], [place] [address]Glucose [Mass/Vol]89 mg/vT88-747 [facility] HospitalLipase [Catalytic activity/Vol]33.0 U/L 16.0-77.0[facility] HospitalPotassium [Moles/Vol]4.2 mmol/L3.5-5.1 [facility], Beachwoododium [Moles/Vol]143 mmol/I012-094JmfcujteqGreen Cross HospitalUrea nitrogen [Mass/Vol]19.0 mg/dLHigh7.0-18.0[facility] HospitalUrea nitrogen/Creatinine [Mass ratio]23.5 mg/mgGreen Cross HospitalLeukocytes [#/volume] corrected for nucleated erythrocytes in Blood by Automated counOrdered By: Johan Martinez on 06-09-2025 WBC corrected for nucl RBC Auto (Bld) [#/Vol]19.0 10 3/uLHigh4.0-11.0[facility] Auto (RBC) [Entitic mass]Ordered By: Johan Martinez on 76-29-2048XHF (RBC) [Entitic mass]29.8 pg26.7-34.0[facility] HospitalMCHC Auto (RBC) [Mass/Vol]Ordered By: Johan Martinez on 53-37-7305EIEA (RBC) [Mass/Vol]32.8 g/dL29.9-35.2FHocking Valley Community HospitalMCV Auto (RBC) [Entitic vol]Ordered By: Johan Martinez on 38-23-4533KOU (RBC) [Entitic vol]90.9 fL81.0-99.0[facility] HospitalPlatelet mean volume Auto (Bld) [Entitic vol]Ordered By: Johan Martinez on 23-42-1359Lhmnwweo mean volume (Bld) [Entitic vol]11.2 fL9.5-13.5FHocking Valley Community HospitalPlatelets Auto (Bld) [#/Vol]Ordered By: Johan Martinez on 54-19-0949Ochtmvlwk (Bld) [#/Vol] 308 10 3/aQ520-389KjcciekmuGreen Cross HospitalRBC Auto (Bld) [#/Vol]Ordered By: Johan Martinez on 97-40-1622RHS (Bld) [#/Vol]4.39 10 6/uL4.20-5.40[facility], Beachwooderum or plasma anion gap determinationOrdered By: Johan Martinez on 79-60-8298Sypqw gap [Moles/Vol]8.8 mmol/LFHocking Valley Community HospitalBasophils Auto (Bld) [#/Vol]Ordered By: Johan Martinez on 06-08-2025 Basophils (Bld) [#/Vol]1.6 10 3/uLHigh0.0-0.1FHocking Valley Community Hospital Basophils/100 WBC Auto (Bld)Ordered By: Johan Martinez on 24-90-2533Owklqsztt/100 WBC (Bld)8.0 %High0.2-2.0[facility] HospitalEosinophils/100 WBC Auto (Bld)Ordered By: Johan Martinez on 31-51-0389Wdfeceupvnt/100 WBC (Bld)5.9 % 0.9-7.0[facility] HospitalErythrocyte distribution width Auto (RBC) [Ratio]Ordered By: Johan Martinez on 52-34-0242Ujptjivoyfl distribution width (RBC) [Ratio]15.5 %High11.0-15.0[facility] HospitalGlobulin Calc (S) [Mass/Vol]Ordered By: Johan Martinez on 97-08-8850Yeqcoqoi (S) [Mass/Vol]3.2 g/dLGreen Cross HospitalGlomerular filtration rate (GFR) estimation in non- AmericanOrdered By: Johan Martinez on 06-08-2025 GFR/1.73 sq M.predicted among non-blacks MDRD (S/P/Bld) [Vol rate/Area] mL/min/{1.73_m2}>=60 mL/min/1.73m 2FHocking Valley Community HospitalHematocrit Auto (Bld) [Volume fraction]Ordered By: Johan Martinez on 64-83-9602Whvbwoicmp (Bld) [Volume fraction]36.8 %36.0-48.0[facility] Hemoglobin [Mass/volume] in BloodOrdered By: Johan Martinez on 06-08-2025 Hemoglobin (Bld) [Mass/Vol]12.3 g/dL12.0-16.0[facility] Laboratory - Chemistry and Chemistry - challengeOrdered By: Johan Martinez on 38-90-5742Xxmchcztf Ql (U)NegativeNEGATIVEGreen Cross Hospital Glucose (U) [Mass/Vol]NegativeNEGATIVEGreen Cross HospitalKetones Ql (U)NegativeNEGATIVEGreen Cross HospitalpH (U)5.5 [pH]5.0-9.0 [facility], Beachwoodpecific gravity (U) [Rel density]1.020 1.005-1.025Green Cross HospitalUrobilinogen Qn (U)0.2 {Alberta'U}/dL0.2-1.0[facility] HospitalAlbumin [Mass/Vol]3.1 g/dL Low3.4-5.0[facility] HospitalALP [Catalytic activity/Vol]66 U/L 46-116Green Cross HospitalALT [Catalytic activity/Vol]18 U/L14-59 [facility] HospitalAST [Catalytic activity/Vol]20 U/L15-37 [facility] HospitalBilirubin [Mass/Vol]0.3 mg/dL0.2-1.0[facility] HospitalCalcium [Mass/Vol]8.8 mg/dL8.5-10.1FHocking Valley Community HospitalChloride [Moles/Vol]106 mmol/B60-028CmyfdffsiGreen Cross HospitalCO2 [Moles/Vol]29.8 mmol/L21.0-32.0[facility] Creatinine [Mass/Vol]0.87 mg/dL0.55-1.02[facility] GFR/1.73 sq M.predicted MDRD (S/P/Bld) [Vol rate/Area]mL/min/{1.73_m2}>=60 mL/min/1.73m 2FHocking Valley Community HospitalGlucose [Mass/Vol]85 mg/aD80-460 [facility] HospitalPotassium [Moles/Vol]4.1 mmol/L3.5-5.1FHocking Valley Community HospitalProtein [Mass/Vol]6.3 g/dLLow6.4-8.2FOhio Valley Hospitalodium [Moles/Vol]142 mmol/P696-693NgelpmuchGreen Cross HospitalUrea nitrogen [Mass/Vol]22.0 mg/dLHigh7.0-18.0[facility] HospitalUrea nitrogen/Creatinine [Mass ratio]25.3 mg/mgGreen Cross HospitalLaboratory - Hematology and Cell countsOrdered By: Johan Martinez on 51-29-5305Mqfnjikt granulocytes/100 WBC (Bld)20.9 %High0.0-0.5FHocking Valley Community HospitalLaboratory - Specimen informationOrdered By: Johan Martinez on 36-95-5566Rfbtswpeua (U)CLEARCLEARFHocking Valley Community HospitalColor (U)LT. YELLOWYELLOWGreen Cross HospitalLaboratory - UrinalysisOrdered By: Johan Martinez on 48-27-1520Qavpdxlui esterase Test strip Ql (U)NegativeNEGATIVE [facility] HospitalMucus Ql (Urine sed)NONE SEENNONE SEENGreen Cross HospitalNitrite Ql (U)NegativeNEGATIVEGreen Cross HospitalProtein Ql (U)NegativeNEG/TRACEGreen Cross HospitalLeukocytes [#/volume] corrected for nucleated erythrocytes in Blood by Automated coun Ordered By: Johan Martinez on 75-31-0493ROL corrected for nucl RBC Auto (Bld) [#/Vol]19.5 10 3/uLHigh4.0-11.0[facility] HospitalLymphocytes Auto (Bld) [#/Vol]Ordered By: Johan Martinez on 83-18-7281Adjucsqyzko (Bld) [#/Vol] 2.2 10 3/uL1.2-3.8[facility] Cross HospitalLymphocytes/100 WBC Auto (Bld)Ordered By: Johan Martinez on 20-57-7781Ywfrvdigqfk/100 WBC (Bld)11.2 %Low 20.5-60.0[facility] HospitalH Auto (RBC) [Entitic mass]Ordered By: Johan Martinez on 23-40-3760DVM (RBC) [Entitic mass]30.3 pg26.7-34.0[facility] HospitalMCHC Auto (RBC) [Mass/Vol]Ordered By: Johan Martinez on 87-82-9305DLAQ (RBC) [Mass/Vol]33.4 g/dL29.9-35.2FHocking Valley Community HospitalMCV Auto (RBC) [Entitic vol]Ordered By: Johan Martinez on 33-90-6151OBN (RBC) [Entitic vol]90.6 fL81.0-99.0[facility] HospitalMonocytes Auto (Bld) [#/Vol]Ordered By: Johan Martinez on 19-29-8743Aurwkkyiz (Bld) [#/Vol] 1.9 10 3/uLHigh0.3-0.8[facility] HospitalMonocytes/100 WBC Auto (Bld)Ordered By: Johan Martinez on 89-03-4981Xdlntguox/100 WBC (Bld)9.6 %1.7-12.0 [facility] HospitalNeutrophils Auto (Bld) [#/Vol]Ordered By: Johan Martinez on 37-12-6678Awcndieuvaa (Bld) [#/Vol]8.7 10 3/uLHigh1.4-6.5FHocking Valley Community HospitalNeutrophils/100 WBC Auto (Bld)Ordered By: Johan Martinez on 54-34-9701Vubarqngkab/100 WBC (Bld)44.4 %43.0-75.0[facility] HospitalNo Panel InformationOrdered By: Johan Martinez on 14-62-1684Fzbfh Bacteria TRACE #/HPFAbnormalNONE SEENGreen Cross HospitalUrine Culture ReflexedNOGreen Cross HospitalUrine Occult BloodTRACE-INEGATIVE [facility] Cross HospitalUrine Other CastsNONE SEEN #/LPFNONE SEEN [facility] HospitalUrine Other CrystalsNone Seen #/HPFNone Seen [facility] HospitalUrine RBC0-2 #/HPF0-2FHocking Valley Community HospitalUrine Squamous Epithelial CellsFEW #/LPFAbnormalNONE/RAREGreen Cross HospitalUrine WBCNONE SEEN #/HPFNONE SEENGreen Cross HospitalEosinophils # (Auto)1.2 10 3/uLHigh0.0-0.7FHocking Valley Community HospitalImmature Granulocyte # (Auto)4.08 10 3/uLHigh0.00-0.03[facility] HospitalPlatelet mean volume Auto (Bld) [Entitic vol]Ordered By: Johan Martinez on 36-42-3515Zojzzkhd mean volume (Bld) [Entitic vol]11.5 fL 9.5-13.5FHocking Valley Community HospitalPlatelets Auto (Bld) [#/Vol]Ordered By: Johan Martinez on 98-84-1717Kdqkhrqov (Bld) [#/Vol]297 10 3/wA390-059ZbdxojughGreen Cross HospitalRBC Auto (Bld) [#/Vol]Ordered By: Johan Martinez on 48-78-9494WGD (Bld) [#/Vol]4.06 10 6/uLLow4.20-5.40[facility], Beachwooderum or plasma albumin/globulin mass ratioOrdered By: Johan Martinez on 03-05-0857Qlhgmyy/Globulin [Mass ratio]1.0 {ratio}[facility], Beachwooderum or plasma anion gap determinationOrdered By: Johan Martinez on 52-79-7508Ujezp gap [Moles/Vol]10.3 mmol/LFHocking Valley Community Hospital Erythrocyte distribution width Auto (RBC) [Ratio]Ordered By: Johan Martinez on 29-55-3950Kqwspsmrvpi distribution width (RBC) [Ratio]15.7 %High11.0-15.0 [facility] HospitalGlobulin Calc (S) [Mass/Vol]Ordered By: Johan Martinez on 80-76-3700Alzgggtp (S) [Mass/Vol]3.2 g/dLGreen Cross HospitalGlomerular filtration rate (GFR) estimation in non- AmericanOrdered By: Johan Martinez on 38-12-8155EBU/1.73 sq M.predicted among non-blacks MDRD (S/P/Bld) [Vol rate/Area]mL/min/{1.73_m2}>=60 mL/min/1.73m 2FHocking Valley Community HospitalHematocrit Auto (Bld) [Volume fraction]Ordered By: Johan Martinez on 90-83-2704Kcuaaueotn (Bld) [Volume fraction]37.4 %36.0-48.0[facility] HospitalHemoglobin [Mass/volume] in BloodOrdered By: Johan Martinez on 09-98-9981Xuecvrzsnu (Bld) [Mass/Vol]12.3 g/dL12.0-16.0[facility] HospitalLaboratory - Chemistry and Chemistry - challengeOrdered By: Johan Martinez on 29-10-2120Ponhrxf [Mass/Vol]2.9 g/dLLow3.4-5.0[facility] HospitalALP [Catalytic activity/Vol]55 U/B26-703HoefuqgxyGreen Cross HospitalALT [Catalytic activity/Vol]17 U/G15-52RhcesjpxaGreen Cross Hospital AST [Catalytic activity/Vol]24 U/J97-69IvmogqldiGreen Cross Hospital Bilirubin [Mass/Vol]0.3 mg/dL0.2-1.0[facility] HospitalCalcium [Mass/Vol]8.5 mg/dL8.5-10.1FHocking Valley Community HospitalChloride [Moles/Vol] 107 mmol/X81-294EkrkxdoqdGreen Cross HospitalCO2 [Moles/Vol]28.8 mmol/L 21.0-32.0[facility] HospitalCreatinine [Mass/Vol]0.61 mg/dL 0.55-1.02[facility] HospitalGFR/1.73 sq M.predicted MDRD (S/P/Bld) [Vol rate/Area]mL/min/{1.73_m2}>=60 mL/min/1.73m 2FHocking Valley Community HospitalGlucose [Mass/Vol]84 mg/xB97-971QpxbtjtylGreen Cross HospitalLactate [Moles/Vol]0.8 mmol/L0.4-2.0[facility] HospitalPotassium [Moles/Vol]4.3 mmol/L3.5-5.1FHocking Valley Community HospitalProtein [Mass/Vol] 6.1 g/dLLow6.4-8.2FOhio Valley Hospitalodium [Moles/Vol]144 mmol/L 136-145[facility] HospitalUrea nitrogen [Mass/Vol]16.0 mg/dL 7.0-18.0[facility] HospitalUrea nitrogen/Creatinine [Mass ratio] 26.2 mg/mgGreen Cross HospitalLeukocytes [#/volume] corrected for nucleated erythrocytes in Blood by Automated counOrdered By: Johan Martinez on 60-17-9687PLW corrected for nucl RBC Auto (Bld) [#/Vol]19.7 10 3/uLHigh4.0-11.0 [facility] Auto (RBC) [Entitic mass]Ordered By: Johan Martinez on 41-32-7822SUF (RBC) [Entitic mass]30.4 pg26.7-34.0[facility] Auto (RBC) [Mass/Vol]Ordered By: Johan Martinez on 06-07-2025 MCHC (RBC) [Mass/Vol]32.9 g/dL29.9-35.2FHocking Valley Community HospitalMCV Auto (RBC) [Entitic vol]Ordered By: Johan Martinez on 21-16-8604LKM (RBC) [Entitic vol]92.3 fL81.0-99.0[facility] HospitalNo Panel InformationOrdered By: Johan Martinez on 94-30-3084Z-Reactive Protein, Quantitative<0.50 mg/dL<=0.50 [facility] HospitalPlatelet mean volume Auto (Bld) [Entitic vol] Ordered By: Johan Martinez on 62-54-6050Jrcsqfpl mean volume (Bld) [Entitic vol] 11.7 fL9.5-13.5FHocking Valley Community HospitalPlatelets Auto (Bld) [#/Vol] Ordered By: Johan Martinez on 61-20-6900Lhnohozez (Bld) [#/Vol]295 10 3/yK699-359 [facility] HospitalRBC Auto (Bld) [#/Vol]Ordered By: Johan Martinez on 21-67-4329DCZ (Bld) [#/Vol]4.05 10 6/uLLow4.20-5.40[facility], Beachwooderum or plasma albumin/globulin mass ratioOrdered By: Johan Martinez on 50-73-7454Machngk/Globulin [Mass ratio]0.9 {ratio}[facility], Beachwooderum or plasma anion gap determinationOrdered By: Johan Martinez on 93-91-2695Xwhgb gap [Moles/Vol]12.5 mmol/LFHocking Valley Community Hospital Basophils/100 WBC Manual cnt (Bld)Ordered By: Leighton Wu on 06-06-2025 Basophils/100 WBC (Bld)5.0 %High0.2-2.0[facility] Eosinophils/100 WBC Manual cnt (Bld)Ordered By: Leighton Wu on 06-06-2025 Eosinophils/100 WBC (Bld)3.0 %0.9-7.0[facility] Erythrocyte distribution width Auto (RBC) [Ratio]Ordered By: Ammon Osborne on 79-60-3461Wyuoxxmigdj distribution width (RBC) [Ratio]15.6 %High11.0-15.0 [facility] HospitalGlobulin Calc (S) [Mass/Vol]Ordered By: Ammon Osborne on 08-20-4725Mbcujinw (S) [Mass/Vol]3.7 g/dLGreen Cross HospitalGlomerular filtration rate (GFR) estimation in non- AmericanOrdered By: Ammon Osborne on 42-47-8375YYI/1.73 sq M.predicted among non-blacks MDRD (S/P/Bld) [Vol rate/Area]57 mL/min/{1.73_m2}Low>=60 mL/min/1.73m 2FHocking Valley Community HospitalHematocrit Auto (Bld) [Volume fraction]Ordered By: Ammon Osborne on 39-26-5660Albhcalbsc (Bld) [Volume fraction]43.3 %36.0-48.0[facility] HospitalHemoglobin [Mass/volume] in BloodOrdered By: Ammon Osborne on 05-05-3551Gfrlobjqrf (Bld) [Mass/Vol]14.4 g/dL12.0-16.0[facility] Cross HospitalLon 06-06-2025L Specimen: [id number] Received: 06/07/25 Status: MUSA Burroughs Num: [id number] Spec Type: Impression Subm Dr: Leighton Wu DO Tissues: PATHPER Procedures: PATHREVIEW Age/ Patient Sex Location Account Attending Physician Karen Zaidi 69/F LABELL [id number] Leighton Wu DO SPEC NUM: [id number] RECD: 06/07/25 STATUS: MUSA RESandra NUM: [id number] SRAVANI: 06/06/25 [facility] [address]: Leighton Wu DO ENTERED: 06/07/[address]: Kari Reeder SPEC TYPE: Impression DEPT: [facility] ENTERED BY: [id number] RECV BY: [id number] ORDERED: PATHREVIEW ORDERED: PATHREVIEW Pathologist Review Peripheral blood smear evaluation: - Severe neutrophilic leukocytosis with left shift consistent with infection. - Red blood cell and Platelet: Unremarkable. CPT: 69242 Specimen: [id number] Received: 06/07/25-120 Status: MUSA Burroughs Num: [id number] Spec Type: Impression Subm Dr: Leighton Wu DO Tissues: PATHPER Procedures: PATHREVIEW Patient: Karen Zaidi [id number] (Continued) Signed (signature on file) Hay Aguilar MD 06/07/25 1408Normal [facility] GroupLaboratory - Chemistry and Chemistry - challenge Ordered By: Leighton Wu on 61-70-7407Ysdhtuqhu Ql (U)NegativeNEGATIVEGreen Cross HospitalGlucose (U) [Mass/Vol]NegativeNEGATIVEGreen Cross HospitalKetones Ql (U)NegativeNEGATIVEGreen Cross HospitalpH (U)6.0 [pH]5.0-9.0[facility], Beachwoodpecific gravity (U) [Rel density]<=1.741Gfbplavv6.005-1.025Green Cross HospitalUrobilinogen Qn (U)0.2 {Alberta'U}/dL0.2-1.0[facility] HospitalLaboratory - Chemistry and Chemistry - challengeOrdered By: Ammon Osborne on 19-10-2073Rnkeggl [Mass/Vol]4.0 g/dL3.4-5.0[facility] HospitalALP [Catalytic activity/Vol]82 U/C26-847FndwdtnjvGreen Cross HospitalALT [Catalytic activity/Vol]25 U/V36-71HxnrclczmGreen Cross HospitalAST [Catalytic activity/Vol]27 U/E08-16PikcgxhpqGreen Cross HospitalBilirubin [Mass/Vol]0.5 mg/dL0.2-1.0[facility] HospitalCalcium [Mass/Vol]9.3 mg/dL 8.5-10.1FHocking Valley Community HospitalChloride [Moles/Vol]102 mmol/L98-107 [facility] HospitalCO2 [Moles/Vol]33.2 mmol/LHigh21.0-32.0 [facility] HospitalCreatinine [Mass/Vol]0.98 mg/dL0.55-1.02 [facility] HospitalGFR/1.73 sq M.predicted MDRD (S/P/Bld) [Vol rate/Area]mL/min/{1.73_m2}>=60 mL/min/1.73m 2FHocking Valley Community Hospital Glucose [Mass/Vol]109 mg/bDSpvd46-279UznrfmyakGreen Cross HospitalPotassium [Moles/Vol]3.8 mmol/L3.5-5.1FHocking Valley Community HospitalProtein [Mass/Vol] 7.7 g/dL6.4-8.2FOhio Valley Hospitalodium [Moles/Vol]142 mmol/L 136-145[facility] HospitalUrea nitrogen [Mass/Vol]22.0 mg/dLHigh 7.0-18.0[facility] HospitalUrea nitrogen/Creatinine [Mass ratio] 22.4 mg/mgGreen Cross HospitalLaboratory - Chemistry and Chemistry - challengeOrdered By: Johan Martinez on 94-08-0253Ndgejlu [Moles/Vol]0.7 mmol/L 0.4-2.0[facility] HospitalLaboratory - Hematology and Cell counts Ordered By: Leightno Wu on 56-50-5038Fvsr form neutrophils/100 WBC (Bld)1.0 %0-5 [facility] HospitalLymphocytes/100 WBC (Bld)16.0 %Low20.5-60.0 [facility] HospitalMonocytes/100 WBC (Bld)4.0 %1.7-12.0[facility] HospitalLaboratory - Specimen informationOrdered By: Leighton Wu on 77-72-9797Vfasoxqkfh (U)CLEARCLEARFHocking Valley Community HospitalColor (U) LT. YELLOWYELLOWGreen Cross HospitalLaboratory - UrinalysisOrdered By: Leighton Wu on 49-02-9809Jwaimiikd esterase Test strip Ql (U)Negative NEGATIVEGreen Cross HospitalMucus Ql (Urine sed)NONE SEENNONE SEEN [facility] HospitalNitrite Ql (U)NegativeNEGATIVEGreen Cross HospitalProtein Ql (U)NegativeNEG/TRACEGreen Cross HospitalLeukocytes [#/volume] corrected for nucleated erythrocytes in Blood by Automated counOrdered By: Ammon Osborne on 38-14-0117FUF corrected for nucl RBC Auto (Bld) [#/Vol]28.2 10 3/uLHigh4.0-11.0[facility] Auto (RBC) [Entitic mass]Ordered By: Ammon Osborne on 27-33-7892ZBM (RBC) [Entitic mass]30.1 pg26.7-34.0[facility] Jewish HospitalHC Auto (RBC) [Mass/Vol]Ordered By: Ammon Osborne on 25-30-4630CBVF (RBC) [Mass/Vol]33.3 g/dL 29.9-35.2FHocking Valley Community HospitalMCV Auto (RBC) [Entitic vol]Ordered By: Ammon Osborne on 71-39-7634XJG (RBC) [Entitic vol]90.4 fL81.0-99.0[facility] Cross HospitalMetamyelocytes/100 WBC Manual cnt (Bld)Ordered By: Leighton Wu on 32-13-0962Pzvyqpoiwjcbzq/100 WBC (Bld)5.0 %[facility] HospitalMyelocytes/100 WBC Manual cnt (Bld)Ordered By: Leighton Wu on 06-06-2025 Myelocytes/100 WBC (Bld)3.0 %[facility] HospitalNo Panel InformationOrdered By: Johan Martinez on 88-50-4074Rhqixwab Identification Only [facility] HospitalNo Panel InformationOrdered By: Leighton Wu on 55-79-5346Oiris BacteriaNONE SEEN #/HPFNONE SEENGreen Cross HospitalUrine Occult BloodSMALLAbnormalNEGATIVEGreen Cross Hospital Urine Other CastsNONE SEEN #/LPFNONE SEENGreen Cross HospitalUrine Other CrystalsNone Seen #/HPFNone SeenGreen Cross HospitalUrine RBC 2-5 #/HPFAbnormal0-2FHocking Valley Community HospitalUrine Squamous Epithelial CellsFEW #/LPFAbnormalNONE/RAREGreen Cross HospitalUrine WBC0-2 #/HPFAbnormalNONE SEENGreen Cross HospitalAbsolute Basophils (Manual)1.41 10 3/uLHigh0.00-0.10[facility] HospitalAdd Manual DifferentialSEE SCANNED REPORTGreen Cross HospitalBand Neutrophils # (Manual)0.3 10 3/uL0.0-0.3FHocking Valley Community HospitalEosinophils # (Manual)0.84 10 3/uLHigh0.00-0.70[facility] HospitalLymphocytes # (Manual)4.51 10 3/uLHigh1.20-3.80[facility] HospitalMetamyelocytes # (Manual)1.41[facility] HospitalMonocytes # (Manual)1.12 10 3/uL High0.30-0.80[facility] HospitalMyelocytes # (Manual)0.84[facility], Beachwoodegmented Neutrophils # (Manual)17.76 10 3/uLHigh1.4-6.5 [facility] HospitalPlatelet mean volume Auto (Bld) [Entitic vol] Ordered By: Ammon Osborne on 62-44-2787Siyldftg mean volume (Bld) [Entitic vol] 11.3 fL9.5-13.5FHocking Valley Community HospitalPlatelets Auto (Bld) [#/Vol] Ordered By: Ammon Osborne on 72-90-9437Csvwivljt (Bld) [#/Vol]385 10 3/pV474-191 [facility] HospitalRBC Auto (Bld) [#/Vol]Ordered By: Ammon Osborne on 88-67-4845DYF (Bld) [#/Vol]4.79 10 6/uL4.20-5.40[facility], Beachwoodegmented neutrophils/100 WBC Manual cnt (Bld)Ordered By: Leighton Wu on 65-61-5294Srqabetqz neutrophils/100 WBC (Bld)63.0 %43.0-75.0[facility], Beachwooderum or plasma albumin/globulin mass ratioOrdered By: Ammon Osborne on 57-37-9152Bcgacqv/Globulin [Mass ratio]1.1 {ratio}[facility], Beachwooderum or plasma anion gap determinationOrdered By: Ammon Osborne on 48-44-3888Onadc gap [Moles/Vol]10.6 mmol/LFHocking Valley Community Hospital 25(OH)D3 SerPl-mCncon 676786-lfzijycohcqouw D3 [Mass/Vol]47.4 ng/mLNormal 31.0-80.0Barnesville HospitalComment on above:Order Comment: Specimen Type: BLOOD SPECIMEN Ordering Facility: [facility] Address: [address] [place], [place] [address]Performed By: #### NGA, 2458-8 #### [facility] CLIA [id number] [address] [place] [address] OF AMERICACNOVon 62-83-1597JTFWAgcmrp Visit (LOORRM) KAREN ZAIDI ([id number]) 1955 F Date Time Provider Department 05/04/25 1:45 PM KOLCZUN, ORQUIDEA C LOORRM During your visit today, we recorded the following information about you: Orquidea Saavedra MD 05/05/2025 11:26 AM Signed see dictated note Orquidea Saavedra II, MD Referring Provider: GI SIDDIQI [[id number]] Allergies As of Date: 05/04/2025 Noted Allergy [...] (FLONASE) 50 mcg/actuation nasal spray Use 1 Rugby in the nose as needed for cold/allergy [...] Encounter Status:Closed by ORQUIDEA SAAVEDRA II on 05/05/25NormalCUniversity Hospitals Ahuja Medical CenterHcys SerPl-sCncon 55-15-9149Rldperzjkvlo [Moles/Vol]22.2 umol/L High<15.1CThe Christ Hospital on above:Order Comment: Specimen Type: BLOOD SPECIMENOrdering Facility: [facility] Address:[address] [place], [place] [address]Performed By: #### 43139-3 ####[facility] LABCLIA [id number] [address] Panel InformationOrdered By: Outside Provider on 441138-Frlpckf Vitamin D Total47.4 ng/mL31.0-80.0[facility] Cross HospitalVitamin B12 Level>2000 pg/rCTtrs039-9883ZdmykfyefSelect Medical [facility] Clinic Rehabilitation Hospital, Beachwooderum or plasma homocysteine measurement (moles/volume)Ordered By: Outside Provider on 43-90-2134Tyvngiicrhsp [Moles/Vol]22.2 umol/LHigh<15.1 [facility] HospitalVit B12 SerPl-mCncon 31-85-7220Soxywdfeu (Vitamin B12) [Mass/Vol]pg/rVBnis007-7341MjnzorjynThe Christ Hospital on above:Order Comment: Specimen Type: BLOOD SPECIMENOrdering Facility: [facility] Address:[address] [place], [place] [address]Performed By: #### 2132-9 ####[facility] LABCLIA [id number] [facility] CLINICSPINAHNF[place] [address] [place] OF AMERICACT CHEST WO CONTon 67-34-2988HK CHEST WO CONTCT CHEST WO CONT Study: CT chest without [...] to 3.9 cm. There is severe dilatation ofthe main pulmonary artery up to approximately 4.6 [...] artery up to approximately 4.6 cm correlate withany signs or symptoms of pulmonary arterial hypertension. [...] detection for pulmonary nodules was performed utilizing CrossTx software. Finalized by Dayday Rodriguez MD on 04/28/2025 1:55 PMNormalLicking Memorial Hospitalca Indian Valley HospitalCNOVon 48-18-0672UWUCFxdbuc Visit ([facility]) DIRLAM,KAREN ([id number]) 1955 F Date Time Provider Department 03/08/25 3:30 PM AUGUSTINA VARGAS During your visit today, we recorded the following information about you: Blood pressure 120/66 Augustina Vargas MD 03/14/2025 11:17 PM Signed [facility] BENHU7TM FOR CHRONIC PELVIC PAIN OUTPATIENT VISIT DATE 03/08/2025 OUTPATIENT VISIT TYPE FOLLOW UP CHIEF COMPLAINT follow up HISTORY OF PRESENT ILLNESS Karen is a 69 year old female who is in today for follow up. Since last visit: Pt reports that she is completing PT at [place] and is doing a multitude of exercises [...] GI Upset Date Reviewed: 03/08/2025 Reviewed by: [place], Ajhasia, RN - Fully Assessed Reason for Visit: [...] g vaginally daily at (more content not included)...NormalProMedica Flower Hospitalon 25-36-3391HXSMLmhckjnxv (ZAHRA) KAREN ZAIDI ([id number]) 1955 F Date Time Provider Department 02/14/25 SACHI MARTINEZ During your visit today, we recorded the following information about you: Sachi Martinez APRN.CNP 02/14/2025 10:37 AM Signed Please help Karen [...] otherwise we have nothing available here in [place] at this time. Estefany Nino 03/03/2025 12:01 PM Signed Called and spoke with patient, scheduled sooner for Cardiology in [place] Scheduled for 06/07/2025 in [place]. 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 3rd, mychart reminder [...] unspecified [I51.9] Order(s):VITAMIN B12 [SQB12] Order #: [id number] FUTURE HOMOCYSTEINE [SQHOMCYS] Order #: [id number] FUTURE Prescriptions as of 03/24/2025 - cholecalciferol, [...] (FLONASE) 50 mcg/actuation nasal spray Use 1 Rugby in the nose as needed for cold/allergy [...] 03/03/2024 Encounter Status:Closed by SACHI MARTINEZ on 03/24/25[facility] 60-03-3330QUDOWjzxhfgpl (GYNMN) KAREN ZAIDI ([id number]) 1955 F Date Time Provider Department 02/10/25 AUGUSTINA VARGAS During your visit today, we recorded the following information about you: [facility] CenterNaveen [facility]buck[facility] – SulphurLupis 02/10/2025 3:25 PM Signed Reason for call: Other Provider name: Dr Vargas Additional comments: Cyclobenzaprine need PA. Letter scan into [facility]. Recommendation: routed to nurse triage pool Last visit in this department: Visit date not found Last distance health visit in this department: Visit date not found Next visit in this department: Visit date not found Appointments for Next 60 Days Date Time Provider Location Dept Phone 03/08/2025 3:30 PM AUGUSTINA VARGAS - [facility] [phone] Cielo Gomez RN 02/11/2025 1:17 PM Signed [...] Recommendation: routed to nurse triage pool Call [phone] Thanks Erendira Hodge RN 02/23/2025 2:06 PM Signed Patient identified by name and . States she uses flexeril and it is very helpful. States she typically pays out of pocket for it but decided to see if she can get it covered with PA. PA filled out on [facility]. Méndez: [email or web address] Will monitor status. DIANE Hernandez Kate, RN 02/23/2025 3:00 PM Signed PA approved, MC message sent to Pt. Erendria Chavira RN Allergies As of Date: 02/10/2025 [...] (FLONASE) 50 mcg/actuation nasal spray Use 1 Rugby in the nose as needed for cold/allergy [...] 03/03/2024 Encounter Status:Closed by CHU BLACKWELL on 02/11/25[facility] 46-21-7196EBRYVdllny Visit (ZAHRA) KAREN ZAIDI ([id number]) 1955 F Date Time Provider Department 02/08/25 [...] encounter diagnosis) (I25.10) Coronary artery disease involving kletsel de[place]un coronary artery of kletsel de[place]un heart without angina pectoris (Z82.49) Family history [...] osteoporosis and osteopenia. Osteoporos Int. 2009;21(5):831-6. doi: 10.1007/c85840-753-8069-z. Epub 2008May 05. PMID: [id number]. Her alk phos levels have not been [...] if necessary, CC, NOF and ISCD and [facility]. She has osteoarthrosis involving hands and knees. Her right knee appears to have advanced jtff-yl-amxp osteoarthrosis and is some (more content not included)...NormalBarnesville Hospital25(OH)D3 SerPl-mCncon 637904-naqxxlaofwxuqk D3 [Mass/Vol]33.3 ng/yLCazfez59.0-80.0 [facility] on above:Order Comment: Specimen Type: BLOOD SPECIMENOrdering Facility: [facility] Address:[address] [place], [place] [address]Result Comment: Classification of 25 [place] Vitamin D status: Deficiency/Insufficiency: < or = 30 ng/ml. Sufficiency/Optimal Levels: 31-80 ng/mL Toxicity: > 100 ng/mL. Test performed by chemiluminescent immunoassay.Performed By: #### 1989-3 ####[facility] LABCLIA [id number] [address]ALK PHOS BONE SPECon 02-07-2025 ALK PHOSPHATASE, BONE13.5 ug/LNormalChildren's Hospital of [facility] on above: Order Comment: Specimen Type: BLOOD SPECIMENOrdering Facility: [facility] Address:[address] [place], [place] [address]Result Comment: INTERPRETIVE INFORMATION: Bone Specific Alkaline Phosphatase Premenopausal Female: 4.5 - 16.9 ug/L Postmenopausal Female: 7.0 - 22.4 ug/L INTERPRETIVE INFORMATION: Bone Specific Alkaline Phosphatase Liver alkaline phosphatase can affect the measurement of bone specific alkaline phosphatase in this assay. Each 100 U/L of liver alkaline phosphatase contributes an additional 2.5 to 5.8 ug/L to the bone specific alkaline phosphatase result. Performed By: [facility] [address] [place] [address] Office Specialist: Danie Andrews MD, PhD CLIA Number: [id number] By: #### APBONE ####[facility] LABORATORIESIA [id number] [place], [place] [address]XOQ SerPl-cCncon 09-42-1133BIS [Catalytic activity/Vol]83 U/WAakkmj37-472PfxxhftglChildren's Hospital of [facility] on above:Order Comment: Specimen Type: BLOOD SPECIMEN Ordering Facility: [facility] Address: [address] [place], [place] [address]Performed By: #### NGA, 8 #### [facility] CLIA [id number] [address] [place] [address] [place] OF AMERICACALCIUM, 24 HR URINEon 43-20-4076Dcwrmit (24H U) [Mass/Time]216.6 mg/24 fpNzlffc332.0-300.0[facility] on above:Order Comment: Specimen Type: BLOOD SPECIMEN Ordering Facility: [facility] Address: [address] [place], [place] [address]Performed By: #### NGA, 8 #### [facility] CLIA [id number] [address] [place] [address] [place] OF AMERICAPERIOD (HRS)24 hrNormal [facility] on above:Order Comment: Specimen Type: BLOOD SPECIMEN Ordering Facility: [facility] Address: [address] [place], [place] [address]Performed By: #### NGA, 8 #### [facility] CLIA [id number] [address] [place] [address] [place] OF AMERICASpecimen volume (24H U)3.8 L NormalChildren's Hospital of [facility] on above:Order Comment: Specimen Type: BLOOD SPECIMEN Ordering Facility: [facility] Address: [address] [place], [place] [address]Performed By: #### NGA, 8 #### [facility] CLIA [id number] [address] [place], [place] [address] [place] OF AMERICACELIAC SCREENon 02-07-2025 GLIAD DEAMIDATED IGA QUALNegativeNormalNegative, Test not IndicatedChildren's Hospital of [facility] on above:Order Comment: Specimen Type: BLOOD SPECIMENOrdering Facility: [facility] Address:[address] [place], [place] [address]Result Comment: This is used as an aid in diagnosis of celiac disease. Clinical correlation is required. The following results were obtained with an [employer] QUANTA Lite Gliadin IgA SIMONA Gliadin. Gliadin IgA values obtained with different manufacturers' assay methods may not be used interchangeably. The magnitude of the reported IgA levels cannot be correlated to an endpoint titer.Performed By: #### [id number] ####[facility] LABCLIA [id number] [address] STATES SAMARITAN MEDICAL CENTERGliadin peptide IgA Qn (S)5 Units Normal<20[facility] on above:Order Comment: Specimen Type: BLOOD SPECIMENOrdering Facility: [facility] Address:[address] [place], [place] [address]Performed By: #### [id number] ####[facility] LABCLIA [id number] [address]ETINTERPRETATIONNo serological evidence of celiac disease, however, if celiac disease is clinically suspected and patient is not on gluten-free diet, histological diagnosis may be considered. HLA testing may help with risk assessment.NormalChildren's Hospital of Columbus on above:Order Comment: Specimen Type: BLOOD SPECIMENOrdering Facility: [facility] Address:[address] [place], [place] [address]Performed By: #### [id number] ####[facility]IA [id number] [address] STREETTRANSGLUTAMINASE IGA ABS INTERPRETATIONNegativeNormalNegativeChildren's Hospital of Columbus on above:Order Comment: Specimen Type: BLOOD SPECIMENOrdering Facility: [facility] Address:[address] [place], [place] [address]Result Comment: The following results were obtained with Inova QUANTA Lite R h-tTG IgA SIMONA.???R h-tTG IgA values obtained with different manufacturers' assay methods may not be used interchangeably. The magnitude of the reported IgA levels cannot be corelated to an endpoint???concentration. This is used as an aid in diagnosis of celiac disease. Clinical correlation is required.Performed By: #### [id number] ####[facility] LABCLIA [id number] [place] [address] [place] tTG IgA Qn (S)<2Normal<4CThe [facility] on above:Order Comment: Specimen Type: BLOOD SPECIMENOrdering Facility: [facility] Address:[address] [place], [place] [address]Performed By: #### [id number] ####[facility] LABCLIA [id number] [place] [address] [place] AMERICACREATININE, 24 HOUR URINEon 78-03-6690Ucdxwhtnjr (24H U) [Mass/Time]0.760 g/24 hrLow0.800-1.800 [facility] on above:Order Comment: Specimen Type: BLOOD SPECIMEN Ordering Facility: [facility] Address: [address] [place], [place] [address]Performed By: #### NGA, 2458-8 #### [facility] CLIA [id number] [address] [place] [address] [place] AMERICACollagen crosslinked C- telopeptide [Mass/Vol]on 02-07-2025 TELOPEPTIDE, BETA CROSS QCFTRP411 pg/mL Dabjqp413-527HbgazfpekChildren's Hospital of Columbus on above:Order Comment: Specimen Type: BLOOD SPECIMENOrdering Facility: [facility] Address:[address] [place], [place] [address]Performed By: #### 58003-0 ####[facility] LABCLIA [id number] [place] [address] [place] AMERICAHcys SerPl-sCncon 30-63-9035Xguvyqdylaor [Moles/Vol]18.9 umol/LHigh<15.1CThe [facility] on above:Order Comment: Specimen Type: BLOOD SPECIMENOrdering Facility: [facility] Address:[address] [place], [place] [address]Performed By: #### 20553-3 ####[facility] LABCLIA [id number] [place] [id number] [place] OF AMERICAIMMUNOFIXATION SCREEN, SERUMon 10-24-2174ZED RESULTNo M protein is identified.NormalNo M protein is identified. [facility] on above:Order Comment: Specimen Type: BLOOD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 High-tone pelvic floor dysfunction M62.89 CYSTOSCOPY Lupis Bro 08/19/2024 11:32 AM Signed Done Lupis Hodge [...] Visit Diagnosis:High-tone pelvic floor dysfunction [M62.89] Order(s):CYSTOSCOPY CM [1129078] Order #: [id number] FUTURE Prescriptions as of 08/19/2024 - cyclobenzaprine [...] (FLONASE) 50 mcg/actuation nasal spray Use 1 Rugby in the nose as needed for cold/allergy [...] (HCC) [E44.0] 03/03/2024 Encounter Status:Closed by LUPIS DESAI on 08/19/24[address] [facility] ClevelandURINALYSIS, REFLEX MICROSCOPICon 43-22-9295Ykzhmsqcr Ql (U) NegativeNegativeClelakehealth tripoint medical center ClinicClarity (Unsp spec)ClearClearCleveland Clinic Color (U)YellowYellowCleChillicothe HospitalGlucose Test strip (U) [Mass/Vol]Negative NegativeSelect Medical Specialty Hospital - Cincinnati NorthHemoglobin Ql (U)NegativeNegativeSelect Medical Specialty Hospital [facility] North Interpretation and review of laboratory resultsNormalCleveland ClinicKetones Ql (U)NegativeNegativeSelect Medical Specialty Hospital - Cincinnati NorthLeukocyte esterase Test strip Ql (U)Negative NegativeSelect Medical Specialty Hospital - Cincinnati NorthNitrite Ql (U)NegativeNegativeSelect Medical Specialty Hospital - Cincinnati NorthpH (U)5.5 [pH]NINF - 8.5Cleveland ClinicProtein (U) [Mass/Vol]NegativeNegativeSelect Medical Specialty Hospital - Columbuspecific gravity (U) [Rel density]1.0101.005 - 1.030[facility] Urobilinogen Ql (U)0.2 EU/dL0.2-1.0 EU/dLSelect Medical Specialty Hospital - Cincinnati NorthThis test was developed and its performance characteristics determined by [facility]'s [facility] Pathology and Laboratory Medicine Julian ([facility]ITALPLMI). It has not been cleared or approved by the FDA. -[facility] is regulated under CLIA as qualified to perform high-complexity testing. Thistest is used for clinical purposes. It should not be regarded as investigational or for research. [facility] Charles HospitalCREATININE, BLOOD (POC)on 12-82-0660Nciiapddjz [Mass/Vol]0.80 mg/dL0.7 - 1.4 mg/dLSelect Medical Specialty Hospital - Cincinnati NortheGFR (POCT)mL/min/1.73 m2 [facility] NorthLocation:Radiology [facility], [address] [place] [address], [address] [place] [address] POINT OF CARESelect Medical Specialty Hospital - Cincinnati NorthCT ABD/PEL W IVCONon 54-70-2209NS ABD/PEL W IVCON* * *Final Report* * * DATE OF [...] obtained in 12 months --END OF FINDING-- Cutting Table Operator: TRINI Transcribe Date/Time: Apr 30 2024 12:52P Dictated by : KAIR LUJAN MD This examination was interpreted and the report reviewed and electronically signed by: KARI LUAJN MD on Apr 30 2024 1:16PM EST [id number] ACTIONABLEInvalid Interpretation Aaron Mark 04-26-2024 NURSING [facility] ID: [id number] Author: JULIEN ACUÑA RN Service: Radiology Author Type: Registered Nurse [...] Zaidi DATE: April 26, 2024 TIME: 1:22 PMNormalProctor HospitalURINALYSIS, REFLEX MICROSCOPICon 02-19-2024 Bilirubin Ql (U)NegativeNegativeCleveland ClinicClarity (Unsp spec)ClearClear [facility]ila ClinicColor (U)ColorlessYellowCleveland ClinicGlucose Test strip (U) [Mass/Vol]NegativeTrace, NegativeCleveland ClinicHemoglobin Ql (U)Negative Negative, TraceKindred Hospital Daytonveland ClinicInterpretation and review of laboratory results NormalCleveland ClinicKetones Ql (U)NegativeNegative, TraceSelect Medical Specialty Hospital [facility] North Leukocyte esterase Test strip Ql (U)NegativeNegative, 25 Jefry/uLSelect Medical Specialty Hospital [facility] North Nitrite Ql (U)NegativeNegativeCleveland ClinicpH (U)5.0 [pH]5.0 - 8.0Cleveland ClinicProtein (U) [Mass/Vol]NegativeTrace, NegativeCleveland ClinicSpecific gravity (U) [Rel density]1.0051.005 - 1.030[facility] NorthUrobilinogen Ql (U) NormalNormalCleveland [facility] ClinicURINALYSIS, REFLEX MICROSCOPICon 39-58-9877Wscxnszjp Ql (U)NegativeNegativeCleveland ClinicClarity (Unsp spec) ClearClearCleveland ClinicColor (U)ColorlessYellowClelakehealth tripoint medical center ClinicGlucose Test strip (U) [Mass/Vol]NegativeTrace, NegativeBedford ClinicHemoglobin Ql (U) NegativeNegative, TraceCleveland ClinicKetones Ql (U)NegativeNegative, Trace Bedford ClinicLeukocyte esterase Test strip Ql (U)NegativeNegative, 25 Jefry/uL Bedford ClinicNitrite Ql (U)NegativeNegativeCleveland ClinicpH (U)5.0 [pH]5.0 - 8.0Cleveland ClinicProtein (U) [Mass/Vol]NegativeTrace, NegativeCleveland ClinicSpecific gravity (U) [Rel density]1.134Bkj5.005 - 1.030[facility] Urobilinogen Ql (U)NormalNormalCleveland ClinicURINALYSIS, REFLEX MICROSCOPICon 62-95-4632Gaqwjxgjk Ql (U)NegativeNegativeCleveland ClinicClarity (Unsp spec) ClearClearCleveland ClinicColor (U)ColorlessYellowCleChillicothe HospitalGlucose Test strip (U) [Mass/Vol]NegativeTrace, NegativeSelect Medical Specialty Hospital - Cincinnati NorthHemoglobin Ql (U) NegativeNegative, TraceClelakehealth tripoint medical center ClinicKetones Ql (U)NegativeNegative, Trace [facility] NorthLeukocyte esterase Test strip Ql (U)NegativeNegative, 25 Jefry/uL AvilaChillicothe HospitalNitrite Ql (U)NegativeNegativeSelect Medical Specialty Hospital - Cincinnati NorthpH (U)5.0 [pH]5.0 - 8.0[facility] NorthProtein (U) [Mass/Vol]NegativeTrace, NegativeSelect Medical Specialty Hospital - Columbuspecific gravity (U) [Rel density]1.0061.005 - 1.030[facility] Urobilinogen Ql (U)NormalNormalCleveland ClinicECG 12 leadon 11-13-2023 TRACEMASTERVUEKindred Hospital LimaCBC without diffon 86-11-9718Vnfooepwjgc distribution width (RBC) [Ratio]14.5 %11.5 - 15.0 %[facility] Hematocrit (Bld) [Volume fraction]38.5 %35 - 47 %[facility] Hemoglobin (Bld) [Mass/Vol]12.9 g/dL11.7 - 15.5 g/dLPremier HealthH (RBC) [Entitic mass]29.2 pg27 - 34 [facility] ToledoMCHC (RBC) [Mass/Vol]33.6 g/dL32 - 36 g/dLKindred Hospital LimaMCV (RBC) [Entitic vol]87 fL80 - 100 [facility]onde[facility] HealthPlatelet mean volume (Bld) [Entitic vol]10.5 fL7 - 12 [facility]onde[facility] HealthPlatelets (Bld) [#/Vol]205 10*3/[facility] Medical CenterRBC (Bld) [#/Vol]4.43 10*6/[facility] Medical CenterWBC corrected for nucl RBC Auto (Bld) [#/Vol]4.8[facility] Creatinine includes GFR, serumon 14-45-9695Xgenzjyenc [Mass/Vol]0.90 mg/dL0.40 - 1.00 mg/dLProMedica Health SystemComment on above:METHOD TRACEABLE TO [facility] STANDARDeGFR (CKD-EPI)non-race oghyzbuzw14- [facility] SystemComment on above: Reported eGFR is based on the CKD-EPI 2020 equation that does not use a race coefficient. [facility]red Hospital LimaMM TOMOSYNTHESIS SCREENING BIon 81-28-9372[address] [address] Mammography Report Signed Patient: Karen Zaidi MR#: [id number] : 1955 Acct:[id number] Age/Sex: 68 / F ADM Date: 09/29/23 Loc: MAMMO Attending Dr: Keri Topete Ordering Physician: Keri Topete Results: Date of Service: 09/29/23 Follow Up: Procedure(s): MM tomosynthesis screening BI Accession Number(s): [id number] cc: Keri Topete; Ammon Osborne M.D. Patient Name: KAREN ZAIDI MR#: [id number] : 1955 Exam Date: 09/29/2023 Ordering Doctor: DELIA Topete . RADIOLOGY REPORT PROCEDURE: MM TOMOSYNTHESIS SCREENING BI COMPARISON: MG MAMM SCREEN ALYSON W CAD, 08/10/2018. MG MAMM SCREEN 3D ALYSON CAD, 08/13/2022. INDICATIONS: screening for malignant neoplasm of breast Calculator Name NCI Breast Cancer Risk Assessment Tool 5 Year Breast Cancer Risk 1.50% Lifetime Breast Cancer Risk 5.40% Personal Breast Cancer No Personal Ovarian Cancer No Treatments None Family Cancers None LOCATION: [facility] BREAST COMPOSITION: Scattered areas fibroglandular density. FINDINGS: DIAGNOSTIC CATEGORY 1--NEGATIVE. NO CHANGE FROM COMPARISON ASSESSMENT. RIGHT BREAST: No significant suspicious finding. [place] marker indicates a scab from the patient's recent mole removal. No mammographic abnormality LEFT BREAST: No significant suspicious finding. RECOMMENDATIONS: ROUTINE MAMMOGRAM AND CLINICAL EVALUATION IN 12 MONTHS. PLEASE NOTE: A NORMAL MAMMOGRAM DOES NOT EXCLUDE THE POSSIBILITY OF BREAST CANCER. A CLINICALLY SUSPICIOUS PALPABLE LUMP SHOULD BE BIOPSIED. Dictated by: Jamison Leblanc MD on 09/29/2023 at 14:35 Approved by: Jamison Leblanc MD on 09/29/2023 at 14:39 Dictated By: Jamison Leblanc M.D. Signed By: 09/29/23 1440 DD/ 38 TD/TT: Cutting Table Operator:REGINALDadiologadams, MD [place] - 09/29/2023 [place] [address] Mammography Report Signed Patient: Karen Zaidi MR#: [id number] : 1955 Acct:[id number] Age/Sex: 68 / F ADM Date: 09/29/23 Loc: MAMMO Attending Dr: Keri Topete Ordering Physician: Keri Topete Results: Date of Service: 09/29/23 Follow Up: Procedure(s): MM tomosynthesis screening BI Accession Number(s): [id number] cc: Keri Topete; Ammon Osborne M.D. Patient Name: KAREN ZAIDI MR#: [id number] : 1955 Exam Date: 09/29/2023 Ordering Doctor: DELIA Topete . RADIOLOGY REPORT PROCEDURE: MM TOMOSYNTHESIS SCREENING BI COMPARISON: MG MAMM SCREEN ALYSON W CAD, 08/10/2018. MG MAMM SCREEN 3D ALYSON CAD, 08/13/2022. INDICATIONS: screening for malignant neoplasm of breast Calculator Name NCI Breast Cancer Risk Assessment Tool 5 Year Breast Cancer Risk 1.50% Lifetime Breast Cancer Risk 5.40% Personal Breast Cancer No Personal Ovarian Cancer No Treatments None Family Cancers None LOCATION: [facility] BREAST COMPOSITION: Scattered areas fibroglandular density. FINDINGS: DIAGNOSTIC CATEGORY 1--NEGATIVE. NO CHANGE FROM COMPARISON ASSESSMENT. RIGHT BREAST: No significant suspicious finding. [place] marker indicates a scab from the patient's recent mole removal. No mammographic abnormality LEFT BREAST: No significant suspicious finding. RECOMMENDATIONS: ROUTINE MAMMOGRAM AND CLINICAL EVALUATION IN 12 MONTHS. PLEASE NOTE: A NORMAL MAMMOGRAM DOES NOT EXCLUDE THE POSSIBILITY OF BREAST CANCER. A CLINICALLY SUSPICIOUS PALPABLE LUMP SHOULD BE BIOPSIED. Dictated by: Jamison Leblanc MD on 09/29/2023 at 14:35 Approved by: Jamison Leblanc MD on 09/29/2023 at 14:39 Dictated By: Jamison Leblanc M.D. Signed By: 09/29/231439 DD/ 38 TD/TT: Cutting Table Operator: OLAMIDE HealthcareRadiology Study observation (narrative)[facility] TOMOSYNTHESIS SCREENING BIOrdered By: Radiologist Radiology on 50-99-4335ZLFS Healthcare Work Phone: XR DEXA AXIAL SKELETONon 25-28-4391L[address] [address] XRay Report Signed Patient: Karen Zaidi MR#: [id number] : 1955 Acct:[id number] Age/Sex: 68 / F ADM Date: 09/29/23 Loc: MAMMO Attending Dr: Keri Topete Ordering Physician: Keri Topete Date of Service: 09/29/23 Procedure(s): XR DEXA axial skeleton Accession Number(s): [id number] cc: Keri Topete; Ammon Osborne M.D. [place] [id number] Patient Name: KAREN ZAIDI MRN: [id number] date: 1955 Sex: F Assigned Patient Location: MAMMO Current Patient Location: MAMMO Accession/Order Number: [id number] Exam Date: 09/29/2023 08:16 Report Date: 09/29/2023 08:45 At the request of: KERI TOPETE Procedure: XR DEXA axial skeleton EXAMINATION: XR [...] Jamison Leblanc M.D. Signed By: 09/29/2348 DD/ TD/TT: Cutting Table Operator:TBHRadiology, Radiologist, MD Maldonado 09/29/2023 The [place] [id number] XRay Report Signed Patient: Karen Zaidi MR#: [id number] : 1955 Acct:[id number] Age/Sex: 68 / F ADM Date: 09/29/23 Loc: MAMMO Attending Dr: Keri Topete Ordering Physician: Keri Topete Date of Service: 09/29/23 Procedure(s): XR DEXA axial skeleton Accession Number(s): [id number] cc: Keri Topete; Ammon Osborne M.D. The [address] [address] Patient Name: KAREN ZAIDI MRN: [id number] date: 1955 Sex: F [facility] Accession/Order Number: [id number] Exam Date: 09/29/2023 08:16 Report Date: 09/29/2023 08:45 At the request of: KERI TOPETE Procedure: XR DEXA axial skeleton EXAMINATION: XR [...] Jamison Leblanc M.D. Signed By: 09/29/2348 DD/ TD/TT: Cutting Table Operator: OLAMIDE HealthcareRadiology Study observation (narrative)NOM HealthcareXR DEXA AXIAL SKELETONOrdered By: Radiologist Radiology on 73-02-8196SPZIFreeman Orthopaedics & [facility] Work Phone: cBC AUTO DIFFon 61-16-6846HTPN #0.1 103/ulNormal 0.0-0.1The [facility] HospitalComment on above:Performed By: #### CBC #### [facility] [address] [address] [address] Camilo ReeseBasophils/100 WBC (Bld)1.4 %Normal0.2-2.0The [facility] Comment on above:Performed By: #### CBC #### [facility] [address] [address] [address] Camilo Denny #0.1 103/ulNormal0.0-0.7The [facility] HospitalComment on above: Performed By: #### CBC #### [facility] [address] [place] [address] Dr. Camilo Talleyosinophils/100 WBC (Bld)2.4 %Normal0.9-7.0The [facility] Comment on above:Performed By: #### CBC #### [facility] [address] [place] [address] Dr. Camlio Talleyrythrocyte distribution width (RBC) [Ratio]13.9 %Vhpsut80.0-15.0 The [facility] HospitalComment on above:Performed By: #### CBC #### [facility] [address] [place] [address] Dr. Camilo ReeseHematocrit (Bld) [Volume fraction]41.3 %Swwxip77.0-48.0The [facility] HospitalComment on above:Performed By: #### CBC #### [facility] [address] [place] [address] Dr. Camilo ReeseHemoglobin (Bld) [Mass/Vol]13.5 g/fSIbqmnu32.0-16.0The [facility] HospitalComment on above:Performed By: #### CBC #### [facility] [address] [place] [address] Dr. Camilo Rausch #0.00 10e3/ulNormal0.00-0.03The [facility] HospitalComment on above:Performed By: #### CBC #### [facility] [address] [address] [address] Camilo Rausch %0.0 %Normal0.0-0.5The [facility] HospitalCom[facility] on above: Performed By: #### CBC #### [facility] [address] [address] [address] Camilo Walker #1.3 103/ulNormal1.2-3.8The [facility] HospitalComment on above:Performed By: #### CBC #### [facility] [address] [place] [address] Dr. Camilo Tineohocytes/100 WBC (Bld)31.0 %Dikkkm74.5-60.0The [facility] HospitalCom[facility] on above:Performed By: #### CBC #### [facility] [address] [place] [address] Dr. Camilo SalasUAL DIFF REQNONormalThe [facility] HospitalComment on above: Performed By: #### CBC #### [facility] [address] [place] [address] Dr. Camilo Mckenna (RBC) [Entitic mass]29.2 smJknbcc19.7-34.0The [facility] on above:Performed By: #### CBC #### [facility] [address] [place] [address] Dr. Camilo Mckenna (RBC) [Mass/Vol]32.7 g/mXHfapga48.9-35.2The [facility]Com[facility] on above:Performed By: #### CBC #### [facility] [address] [place] [address] Dr. Camilo Mckenna (RBC) [Entitic vol]89.4 mQLuvpcu19.0-99.0The [facility] on above:Performed By: #### CBC #### [facility] [address] [place] [address] Dr. Camilo Sharpe #0.6 103/ulNormal0.3-0.8The [facility] HospitalComment on above:Performed By: #### CBC #### [facility] [address] [place] [address] Dr. Camilo Davidocytes/100 WBC (Bld)13.8 %Critically high1.7-12.0The [facility] HospitalComment on above:Performed By: #### CBC #### [facility] [address] [place] [address] Dr. Camilo SoodUT #2.2 103/ulNormal1.4-6.5The [facility] HospitalComment on above:Performed By: #### CBC #### [facility] [address] [place] [address] Dr. Camilo Soodutrophils/100 WBC (Bld)51.4 %Givmfq49.0-75.0The [facility] HospitalComment on above:Performed By: #### CBC #### [facility] [address] [place] [address] Dr. Camilo ReesePlatelet mean volume (Bld) [Entitic vol]11.5 fLNormal9.5-13.5The [facility] HospitalComment on above:Performed By: #### CBC #### [facility] [address] [place] [address] Dr. Camilo ReesePLT254 103/jjPxedxc826-180Dqm [facility] HospitalComment on above: Performed By: #### CBC #### [facility] [address] [place] [address] Dr. Camilo ReeseRBC4.62 106/ulNormal4.20-5.40The [facility] HospitalCom[facility] on above:Performed By: #### CBC #### [facility] [address] [place] [address] Dr. Camilo ReeseWBC4.2 103/ulNormal4.0-11.0The [facility] on above: Performed By: #### CBC #### [facility] [address] [place] [address] Dr. Camilo ReeseCT ABD/PELVIS WO CONon 30-69-2961IR ABD/PELVIS WO CONEXAMINATION: CT ABD/PELVIS WO CON, 02/18/2023 11:03 AM [...] Electronically authenticated by: ELIE NEVES Date: 2023-02-18 11:36[facility] URINE PROFILEon 93-76-7259Vjlpfspff Ql (U)SMALLAbnormal NEGATIVEThe [facility] City HospitalComment on above:Performed By: #### RORY TALBERT #### [facility] [address] [place] [address] Dr. Camilo Bullard (U)CLEARNormalCLEARThe [facility] HospitalComment on above: Performed By: #### ROBERT TALBERTR #### [facility] [address] [place] [address] Dr. Camilo June (U)DK. YELLOWNormalYELLOWThe [facility] City HospitalComment on above:Performed By: #### ROBETR TALBERTR #### [facility] [address] [address] [address] Camilo Xie micrscopic examination will be performed if indicated. NormalThe [facility] City HospitalComment on above:Performed By: #### ROBERT TALBERTR #### [facility] [address] [address] [address] Yilan ChangGlucose Ql (U)NegativeNormalNEGATIVEBarney Children'S Medical CenterComment on above:Performed By: #### GALI ERUR #### [facility] [address] [place] [address] Dr. Camilo ReeseHemoglobin Ql (U)TRACE-INTACTAbnormalNEGATIVEBarney Children'S Medical CenterComment on above:Performed By: #### GALI ERUR #### [facility] [address] [address] [address] Camilo Ruedaones Ql (U)TRACEAbnormalNEGATIVEBarney Children'S Medical CenterComment on above:Performed By: #### GALI ERUR #### [facility] [address] [place] [address] Dr. Camilo ReeseLEUKOCYTESNegativeNormalNEGATIVEBarney Children'S Medical CenterComment on above:Performed By: #### GALI ERUR #### [facility] [address] [place] [address] Dr. Camilo ReeseNitrite Ql (U)NegativeNormalNEGATIVEBarney Children'S Medical CenterComment on above:Performed By: #### ROBERT TALBERTR #### [facility] [address] [place] [address] Dr. Camilo ReesepH (U)5.0 [pH]Normal5-9Bar[facility] Children'S Medical CenterComment on above: Performed By: #### GALI ERUR #### [facility] [address] [place] [address] Dr. Caimlo ReeseSPEC GRAVITY>=1.166Rubhjesw4.005-<=1.025[facility] Comment on above:Performed By: #### ROBERT TALBERTR #### [facility] [address] [place] [address] Dr. Camilo Frankel PROTEINNegativeNormalNEGATIVE/ TRACEBarney Children'S Medical Center Comment on above:Performed By: #### GALI ERUR #### [facility] [address] [address] [address] Camilo Echeverria VENTRESS INDSt. Vincent HospitalComment on above: Performed By: #### ROBERT TALBERTR #### [facility] [address] [place] [address] Dr. Camilo Ortiz Qn (U)0.2 {Alberta'U}/dLNormal0.2 - 1.0The [facility] City HospitalComment on above:Performed By: #### ROBERT TALBERTR #### [facility] [address] [place] [address] Dr. Camilo Khan 14(COMP METB)on [id number] [Mass/Vol]4.0 g/dLNormal 3.4-5.0The [facility] HospitalComment on above:Performed By: #### CMP #### [facility] [address] [place] [address] Dr. Camilo ReeseAlbumin/Globulin [Mass ratio]1.2 {ratio}NormalThe [facility] City HospitalComment on above:Performed By: #### CMP #### [facility] [address] [place] [address] Dr. Camilo Paulino [Catalytic activity/Vol]69 U/SYwfcbi11-843Yjc [facility] HospitalComment on above:Performed By: #### CMP #### [facility] [address] [place] [address] Dr. Camilo Bravo [Catalytic activity/Vol]18 U/QSxhgak58-29Pep [facility] HospitalComment on above:Performed By: #### CMP #### [facility] [address] [place] [address] Dr. Camilo Kong gap [Moles/Vol]11.7 mmol/LNormalThe [facility] on above:Performed By: #### CMP #### [facility] [address] [place] [address] Dr. Camilo Ellis [Catalytic activity/Vol]21 U/RQdxfdk22-53Ojb [facility] HospitalComment on above:Performed By: #### CMP #### [facility] [address] [place] [address] Dr. Yilan ChangBilirubin [Mass/Vol]1.0 mg/dLNormal0.2-1.0The [facility] Comment on above:Performed By: #### CMP #### [facility] [address] [address] [address] Camilo ReeseCalcium [Mass/Vol]9.1 mg/dLNormal8.5-10.1The [facility] Comment on above:Performed By: #### CMP #### [facility] [address] [address] [address] Camilo ReeseChloride [Moles/Vol]103 mmol/TZsylii89-452Snk [facility] Comment on above:Performed By: #### CMP #### [facility] [address] [address] [address] Camilo ReeseCO2 [Moles/Vol]28.7 mmol/SHnsxjd71.0-32.0[facility] Comment on above:Performed By: #### CMP #### [facility] [address] [place] [address] Dr. Camilo ReeseCreatinine [Mass/Vol]0.95 mg/dLNormal0.55-1.02Bar[facility]'S Medical CenterComment on above:Performed By: #### CMP #### [facility] [address] [place] [address] Dr. Camilo TalleyGFR-AF GUYANESE>60Normal>=60The [facility] HospitalComment on above:Performed By: #### CMP #### [facility] [address] [address] [address] Camilo TalleyGFR-NON AF TFHSGVIR33 mL/min/1.38t4Vxootqaino low>=60The [facility] HospitalComment on above:Performed By: #### CMP #### [facility] [address] [address] [address] Camilo ReeseGlobulin (S) [Mass/Vol]3.4 g/dLNormalThe [facility] HospitalComment on above:Performed By: #### CMP #### [facility] [address] [address] [address] Camilo ReeseGlucose [Mass/Vol]101 mg/mPVswqpt39-152Hiy [facility] Comment on above:Performed By: #### CMP #### [facility] [address] [address] [address] Camilo ReesePotassium [Moles/Vol]3.4 mmol/LCritically low3.5-5.1The [facility] HospitalComment on above:Performed By: #### CMP #### [facility] [address] [place] [address] Dr. Camilo ReeseProtein [Mass/Vol]7.4 g/dLNormal6.4-8.2The [facility] Comment on above:Performed By: #### CMP #### [facility] [address] [place] [address] Dr. Camilo Kwanum [Moles/Vol]140 mmol/FQynznx446-079Bzj [facility] Comment on above:Performed By: #### CMP #### [facility] [address] [place] [address] Dr. Camilo ReeseUrea nitrogen [Mass/Vol]17.0 mg/dLNormal7.0-18.0The [facility] HospitalComment on above:Performed By: #### CMP #### [facility] [address] [place] [address] Dr. Camilo Daly nitrogen/Creatinine [Mass ratio]17.9 mg/mgNoMercy Health Lorain HospitalComment on above:Performed By: #### CMP #### [facility] [address] [place] [address] Dr. Camilo Chambers MICROSCOPIC ONLYon [id number]F SEEN [facility] Medical CenterComment on above:Performed By: #### RORY TALBERT #### [facility] [address] [place] [address] Dr. Camilo Gruber identified Cx Nom (U)NOT INDICATEDNoMercy Health Lorain HospitalComment on above:Performed By: #### ROBERT TALBERTR #### [facility] [address] [place] [address] Dr. Camilo Mccabe SEENNormalNONE SEENBarney Children'S Medical CenterComment on above:Performed By: #### UMICRO, ERUR #### [facility] [address] [address] [address] Camilo ReeseCrystals LM Nom (Urine sed)NONE SEENNormalNONE SEENThe [facility] HospitalComment on above:Performed By: #### UMICRO, ERUR #### [facility] [address] [address] [address] Camilo Talleypithelial cells LM Ql (Urine sed)RARENormalNONE SEEN /RAREThe [facility] HospitalComasc[facility] on above:Performed By: #### GALI, ERUR #### [facility] [address] [place] [address] Dr. Camilo PortilloUSTRACEAbnormalNONE SEENBarney Children'S Medical CenterComascension providence hospital on above:Performed By: #### GALI, ERUR #### [facility] [address] [place] [address] Dr. Camilo MontañoEdrgmFDS0-8Jvjvlz0-7Wrl [facility] HospitalCom[facility] hospital on above:Performed By: #### CHERISERO, ERUR #### [facility] [address] [place] [address] Dr. Camilo ReeseWBCTAMIR SEENNormalNONE SEENBarney Children'S Medical CenterComascension providence hospital on above: Performed By: #### CHERISERO, ERUR #### [facility] [address] [place] [address] Dr. Camilo ReeesUS EXT NON VASC CMPLTon [id number] EXT NON VASC CMPLT EXAMINATION: US EXT [...] Electronically authenticated by: DEREK MCCRAY Date: 2023-02-18 14:07[facility] HospitalUrinalysis - AUTOMATEDon [id number] (U)clearNort [place] Other Bilirubin Ql (U)NegativeAridhia Informatics [place] Other Color (U)light yellowBryantown [place] Other Glucose Ql (U)NegativeBryantown [place] Other Hemoglobin Ql (U)trace intactBryantown [place] Other Ketones Ql (U)NegativeAridhia Informatics [place] Other Leukocyte esterase Test strip Ql (U)NegativeAridhia Informatics [place] Other Nitrite Ql (U)ConnectEduAridhia Informatics [place] Other pH (U)6.0 [pH][place] Other Protein Ql (U)NegativeAridhia Informatics [place] Other Specific gravity (U) [Rel density]<1.005Nodeaconess incarnate [facility] [place] Other Urobilinogen (U) [Mass/Vol]0.2 mg/dLBryantown [place] Other Urinalysis - AUTOMATEDBryantown [place] Other CBC AUTO DIFFon [id number] #0.1 103/ulNormal 0.0-0.1The [facility] HospitalComment on above:Performed By: #### DATCBC #### [facility] [address] [address] [address] Camilo Santosphils/100 WBC (Bld)1.3 %Normal0.2-2.0The [facility] Comment on above:Performed By: #### DATCBC #### [facility] [address] [address] [address] Camilo Denny #0.2 103/ulNormal0.0-0.7The [facility] HospitalComment on above: Performed By: #### DATCBC #### [facility] [address] [place] [address] Dr. Camilo Talleyosinophils/100 WBC (Bld)5.2 %Normal0.9-7.0The [facility] Comment on above:Performed By: #### DATCBC #### [facility] [address] [place] [address] Dr. Camilo Talleyrythrocyte distribution width (RBC) [Ratio]14.6 %Pakcnq39.0-15.0 The [facility] HospitalComment on above:Performed By: #### DATCBC #### [facility] [address] [place] [address] Dr. Camilo ReeseHematocrit (Bld) [Volume fraction]42.9 %Toihsh46.0-48.0The [facility] HospitalComment on above:Performed By: #### DATCBC #### [facility] [address] [place] [address] Dr. Camilo ReeseHemoglobin (Bld) [Mass/Vol]13.9 g/zHIqqrjm62.0-16.0The [facility] HospitalComment on above:Performed By: #### DATCBC #### [facility] [address] [place] [address] Dr. Camilo Rausch #0.01 10e3/ulNormal0.00-0.03The [facility] HospitalComment on above:Performed By: #### DATCBC #### [facility] [address] [place] [address] Dr. Camilo Rausch %0.3 %Normal0.0-0.5The [facility] HospitalComment on above: Performed By: #### DATCBC #### [facility] [address] [place] [address] Dr. Camilo AlexisMPH #1.3 103/ulNormal1.2-3.8The [facility] HospitalComment on above:Performed By: #### DATCBC #### [facility] [address] [place] [address] Dr. Camilo Alexismphocytes/100 WBC (Bld)33.6 %Cyjmml40.5-60.0The [facility] HospitalComment on above:Performed By: #### DATCBC #### [facility] [address] [place] [address] Dr. Camilo Mckenna (RBC) [Entitic mass]28.7 phQnvejw80.7-34.0The [facility] HospitalComment on above:Performed By: #### DATCBC #### [facility] [address] [place] [address] Dr. Camilo Mckenna (RBC) [Mass/Vol]32.4 g/vFSykeee23.9-35.2The [facility] HospitalComment on above:Performed By: #### DATCBC #### [facility] [address] [place] [address] Dr. Camilo MckennaV (RBC) [Entitic vol]88.5 oXKsbagb08.0-99.0The [facility] HospitalComment on above:Performed By: #### DATCBC #### [facility] [address] [place] [address] Dr. Camilo Sharpe #0.6 103/ulNormal0.3-0.8The [facility] HospitalComasc[facility] hospital on above:Performed By: #### DATCBC #### [facility] [address] [place] [address] Dr. Camilo Davidocytes/100 WBC (Bld)15.0 %Critically high1.7-12.0The [facility] HospitalComment on above:Performed By: #### DATCBC #### [facility] [address] [place] [address] Dr. Camilo Navarro #1.7 103/ulNormal1.4-6.5The [facility] HospitalComment on above:Performed By: #### DATCBC #### [facility] [address] [place] [address] Dr. Camilo Soodutrophils/100 WBC (Bld)44.6 %Vrdqtz40.0-75.0The [facility] HospitalComment on above:Performed By: #### DATCBC #### [facility] [address] [place] [address] Dr. Camilo Ayalalet mean volume (Bld) [Entitic vol]11.5 fLNormal9.5-13.5The [facility] HospitalComment on above:Performed By: #### DATCBC #### [facility] [address] [place] [address] Dr. Camilo ReesePLT240 103/qbYwubao105-815Bbv [facility] HospitalComment on above: Performed By: #### DATCBC #### [facility] [address] [place] [address] Dr. Camilo ReeseRBC4.85 106/ulNormal4.20-5.40The [facility] HospitalComment on above:Performed By: #### DATCBC #### [facility] [address] [place] [address] Dr. Camilo ReeseWBC3.8 103/ulCritically low4.0-11.0The [facility] HospitalComment on above:Performed By: #### DATCBC #### [facility] [address] [place] [address] Dr. Camilo Ro- [facility] WITH LIPIDon [id number] gap [Moles/Vol]10.7 mmol/L NormalThe [facility] HospitalComment on above:Performed By: #### DATBMP #### [facility] [address] [place] [address] Dr. Camilo ReeseCalcium [Mass/Vol]9.1 mg/dLNormal8.5-10.1The [facility] Comment on above:Performed By: #### DATBMP #### [facility] [address] [place] [address] Dr. Camilo ReeseChloride [Moles/Vol]103 mmol/NHrrjhf56-603OvdBarney Children'S Medical Center Comment on above:Performed By: #### DATBMP #### [facility] [address] [place] [address] Dr. Camilo ReeseCholesterol [Mass/Vol]216 mg/dLCritically high<=200The [facility] HospitalComment on above:Performed By: #### DATBMP #### [facility] [address] [address] [address] Camilo ReeseCholesterol in HDL [Mass/Vol]111 mg/dLCritically pkmg38-04Oif [facility] HospitalCom[facility] hospital on above:Performed By: #### DATBMP #### [facility] [address] [address] [address] Camilo Montañoesterol in LDL [Mass/Vol]91.0 mg/dLNormalThe [facility] HospitalComment on above:Performed By: #### DATBMP #### [facility] [address] [place] [address] Dr. Camilo ReeseCO2 [Moles/Vol]31.4 mmol/ETmurlr50.0-32.0The [facility] Comment on above:Performed By: #### DATBMP #### [facility] [address] [place] [address] Dr. Camilo ReeseCreatinine [Mass/Vol]0.72 mg/dLNormal0.55-1.02The [facility] HospitalComment on above:Performed By: #### DATBMP #### [facility] [address] [place] [address] Dr. Page ChangEGFR-AF GUYANESE>60Normal>=60The [facility] HospitalCom[facility] on above:Performed By: #### DATBMP #### [facility] [address] [place] [address] Dr. Camilo TalleyGFR-NON AF GUYANESE>60Normal>=60[facility] on above:Performed By: #### DATBMP #### [facility] [address] [place] [address] Dr. Camilo ReeseGlucose [Mass/Vol]89 mg/fASsksng87-521Apq [facility] Comment on above:Performed By: #### DATBMP #### [facility] [address] [place] [address] Dr. Camilo Valenzuela NORMAL> or = 60 mg/dl - LOW CARDIOVASCULAR RISK <40 mg/dl - HIGH CARDIOVASCULAR RISKProMedica [facility]oria Community HospitalComment on above:Performed By: #### DATBMP #### [facility] [address] [address] [address] Camilo Veras CALC NORMALSEE BELOWProMedica Fostoria Community HospitalComment on above:Result Comment: <100 mg/dl OPTIMAL 100 - 129 mg/dl NEAR OR ABOVE OPTIMAL 130 - 159 mg/dl BORDERLINE HIGH 160 - 189 mg/dl HIGH >190 mg/dl VERY HIGH Performed By: #### DATBMP #### [facility] [address] [address] [address] Camilo ReesePotassium [Moles/Vol]4.1 mmol/LNormal3.5-5.1The [facility] Comment on above:Performed By: #### DATBMP #### [facility] [address] [address] [address] Camilo ReeseSodium [Moles/Vol]141 mmol/HGcuwrx767-919Msy [facility] Comment on above:Performed By: #### DATBMP #### [facility] [address] [place] [address] Dr. Camilo ReeseTriglyceride [Mass/Vol]70 mg/dLNormal<=150The [facility] Comment on above:Performed By: #### DATBMP #### [facility] [address] [address] [address] Camilo eReseUrea nitrogen [Mass/Vol]17.0 mg/dLNormal7.0-18.0The [facility] HospitalComment on above:Performed By: #### DATBMP #### [facility] [address] [place] [address] Dr. Camilo Daly nitrogen/Creatinine [Mass ratio]23.6 mg/mgNoMercy Health Lorain HospitalComment on above:Performed By: #### DATBMP #### [facility] [address] [place] [address] Dr. Camilo ReeseVLDL CALC14.0 mg/dLProMedica [facility]oria Community HospitalComment on above: Performed By: #### DATBMP #### [facility] [address] [address] [address] Camilo ReeseMG MAMM SCREEN 3D ALYSON CADon [id number] MAMM SCREEN 3D ALYSON CAD Patient: KAREN ZAIDI Exam Date: 08/13/2022 : 1955 Gender:F Ordering : DR AMMON OSBORNE M.D. Admission #: [id number] Family : Order #: [id number] CLICK HERE TO VIEW EXAM RADIOLOGY REPORT PROCEDURE: MAMMOGRAM SCREENING 3D BILATERAL CAD COMPARISON: MG MAMM SCREEN ALYSON W CAD, 08/10/2018. INDICATIONS: Screening mammography Calculator Name NCI Breast Cancer Risk Assessment Tool 5 Year Breast Cancer Risk 1.40% Lifetime Breast Cancer Risk 5.80% Personal Breast Cancer No Personal Ovarian Cancer No Treatments None Family Cancers None LOCATION: [facility] BREAST COMPOSITION: Scattered areas fibroglandular density. [...] PALPABLE LUMP SHOULD BE BIOPSIED. Dictated by: Jamison Leblanc MD on 08/13/2022 at 15:42 Approved by: Jamison Leblanc MD on 08/13/2022 at 15:43[facility] SARS-CoV-2 (COVID-19) RNA CHLOE+probe Ql (Resp)on [id number]-CoV-2 (COVID-19) RNA CHLOE+probe Ql (Unsp spec)NegativeNort [place] Other main OR Intraoperative Recordon [id number] OR Intraoperative RecordIntraOp Document Type FT Summary Primary Physician: Joel Monroe MD Date/Time: 07/09/18 12:32:26 Pt. Name: KAREN ZAIDI /Sex: 1955 Female Med Rec #: [id number] Physician: Joel Monroe MD Financial #: [id number] Pt. Type: A Room/Bed: [address] [address] Admit/Disch: 05/21/18 07:49:00 - 05/21/18 12:55:00 Institution: [...] Role Performed Anesthesiologist of Surgeon - Primary Crime Prevention Police Officer - Primary Record Time In 05/21/18 [...] Pura Gutierrez CST, Giancarlo Villarreal Role Performed Supervisor [employer] - Primary Lathe Turner Time In 05/21/18 10:37:00 05/21/18 10:37:00 05/21/18 10:45:00 Time Out 05/21/18 11:04:00 05/21/18 11:04:00 05/21/18 11:04:00 Procedure CYSTOSCOPY CYSTOSCOPY CYSTOSCOPY URETEROSCOPY(Left), URETEROSCOPY(Left), URETEROSCOPY(Left)CYSTOSCOPY STENT CYSTOSCOPY STENT INSERTION(Left) INSERTION(Left) Comments Last Modified By: Lauren CARRILLO, DIANE, Lauren CARRILLO, RN, Lauren CARRILLO, Ileana CONTRERAS 05/21/18 11:08:42 Ileana 05/21/18 11:08:42 Ileana 05/21/18 11:08:42 Perioperative Protocols FT Pre-Care Text: Implements protective measures prior to operative or invasive procedure, confirms identity before the operative or invasive procedure, verifies operative procedure, surgical site, and laterality Entry 1 Procedure(s) CYSTOSCOPYPatient Identity Birthday, ID Band URETEROSCOPY(Left), Verified (select at Check, Patient CYSTOSCOPY STENT least 2): Participation INSERTION(Left) Consents / H and P Anesthesia Consent, Operative Site N/A Verified HandP, Surgery/Procedure Marking Verified Consent Surgical Site Yes Laterality Verified Yes Verified Procedure Verified Yes Correct Patient Yes Position Verified Availability Equipment,Implant, Prep Dry n/a Verified (If Medication, X-ray Applicable) PreOp Antibiotic Yes Time Out Richie FRITZ DO, Fer Wasserman MD, Joel Gonzalez, Lauren CARRILLO, RN, Rosie Tejeda RN, CNOR, Pura Ann, Marry Gutierrez CST Time Out Complete 05/21/18 10:50:00 Outcomes Met? Yes Last Modified By: Lauren CARRILLO, Ileana CONTRERAS 05/21/18 10:58:40 Post-Care Text: The patient is free from signs andsymptoms of injury caused by extraneous objects Allergy Information FT Pre-Care Text: Verifies allergies Entry 1 Allergies Reviewed? Yes Allergies Reviewed Self/Patient With Outcomes Met? Yes Last Modified By: Rosie CONTRERAS, LAURIE, Pura Ann 05/21/18 10:40:58 Post-Care Text: The patient received appropriate medication(s) safely administered during the perioperative period Surgical Procedures FT Entry 1 En try 2 Procedure Description Procedure CYSTOSCOPY URETEROSCOPY CYSTOSCOPY [...] Last Modified By: Lauren CARRILLO RN, Lauren CARRILLO RN, Kelly 05/21/18 11:09:16 Ileana 05/21/18 11:09:16 General Case [...] symptoms of physical injury to skin and tissueEntry 1 Skin Integrity Intact, Lenora, Warm, and Skin Abnormality No Dry Outcomes Met? Yes Last Modified By: Rosie RN, LAURIE, Pura Ann 05/21/18 10:41:28 Post-Care Text: The patient is free from signs andsymptoms of injury caused by extraneous objects Patient [...] Padded Arm Left Leg Position Secured in S tirrup Board Right Leg Position Secured in Stirrup Positioning Device Stirrups Yellow Fins, Pillow Under Head Large Press Points Checked Yes By Kian Quiroz JR, DO, Weisenburger BSN, RN, Fer Tejeda MD, Joel Gonzalez Outcomes Met? Yes Last Modified By: Lauren CARRILLO RN, Kelly 05/21/18 10:58:40Post-Care Text: The patient is free from signs [...] CNOR, Lou Ann 05/21/18 10:42:45 05/21/18 10:42:45 Post-CareText: The patient is free from signs and symptoms of injury caused by extraneous objects Transport To OR FT Pre-Care Text: Transports according to individual needs. Evaluates for signs and symptoms of skin and tissue injury as a result of transfer or transport Entry 1 Via Cart By Lauren CARRILLO, Ileana CONTRERAS Safety Precautions Side Rails Up Outcomes Met? [...] CST Outcomes Met? Yes Last Modified By: Weisenevgeny CARRILLO RN, Kelly 05/21/18 10:58:38 Post-Care Text: [...] Kelly Patient Status Stable Skin. Condition Intact, Lenora, Warm, and Dry Airway Maintenance Oxygen in Use? Yes Airway Device Nasal Cannula Flow Rate 6 L Outcomes Met? Yes Last Modified By: LAURIE Velez RN, Lou Ann 05/21/18 10:43:49 Post-Care Text: The patient is free from signs and symptoms of injuryrelated to transfer/transport General Comments: report given to pacu staff Medication Administration FT Pre-Care Text: Verifies allergies, administers prescribed medications and solutions, administers prescribed antibiotic therapy and immunizing agents as ordered, evaluates response to medications Administers prescribed medications and solutions Entry 1 Expiration Date Yes Outcomes Met? Yes Verified Last Modified By: LAURIE Velez RN, Lou Ann 05/21/18 10:43:57 Post-Care Text: The patient receivedappropriate medication(s) safely administered during the perioperative period For Moralez-Trumbull please see scanned medication reconcilliation form for [...] 1 Temperature Control BLANKET MISTRAL AIR Quantity 1Aid TORSO [[id number]][F] Fluid/[place] [employer] Mistral warming system Setting high Body Site Upper anterior torso Last Modified By: Lauren CARRILLO RN, Kelly 05/21/18 10:54:28 Case Comments Finalized By: Lauren CARRILLO RN, Kelly Document Signatures Signed By: Lauren CARRILLO RN, Kelly 05/21/18 11:09 Lauren CARRILLO RN, Kelly 05/21/18 11:09 Kira Carmona CST 05/22/18 09:27 Lauren CARRILLO RN, Kelly 07/09/18 12:32NoMercy Health St. Charles HospitalCoding Summary.on [id number] Summary.CODING DATE: 05/25/2018 FINAL [facility] STATUS: Home (Routine DC) PAYOR: [employer] DESCRIPTION 5373 Level 3 Urology and Related Services ADMIT DX: REASON FOR VISIT DX: N13.2 Hydronephrosis with renal and ureteral calculous obstruction FINAL DX: PRINCIPAL: N13.2 Hydronephrosis with renal and ureteral calculous obstruction SECONDARY: M54.5 Low back pain R10.30 Lower abdominal pain, unspecified R35.1 Nocturia R30.0 Dysuria Z87.440 Personal history of urinary(tract) infections Z87.891 Personal history of nicotine dependence PYMT PROC APC STAT DESCRIPTION DOCTOR NAME DATE 00347 5373 J1 Cystourethroscopy, with Joel Monroe MD 05/21/2018 ureteral catheterization, with or without irrigation, instillation, or ureteropyelography, exclusive of radiologic service; 69524 Anesthesia for 05/21/2018 transurethral procedures (including urethrocystoscopy); nototherwise specified NOTE: The code number assigned matches the documented diagnosis and / or procedure in the patient's chart. However, the narrative phrase printed from the coding software may appear abbreviated, or result in slightly different terminology. Revised Coded By: Lanny Lazcano Revised Date Saved: 05/25/2018 02:20 [facility] CampusOperative Reporton [id number] ReportDate of Surgery: 05/21/2018SURGEON: Joel Monroe M.D.PREOPERATIVE DIAGNOSIS: N13.2 left hydronephrosis with left ureteralcalculusPOSTOPERATIVE DIAGNOSIS: N13.2 left hydronephrosis with left ureteralcalculusOPERATION: Cystoscopy, left retrograde pyelogramCOMPLICATIONS: NoneANESTHESIA: General bylaryngeal mask airwayANESTHESIOLOGIST: Shira Quiroz Jr., D.O.FINDINGS: No evidence of ureteral stone or obstructionINDICATIONS: Mrs. Zaidi is a 62 year old female who [facility] with ongoing severe left-sided inguinal/vaginal pain. She had beenin the Emergency Room where a computerized tomography scan had beenperformed showing left-sided hydronephrosis and a 3 mm left ureterovesicaljunction stone. She was given the options and wished to proceed throughthe weekend to see if she couldpass this stone on her own. The pain haspersisted. She presents today for cystoscopy, retrograde pyelogram andpossible ureteroscopy and stone extraction.She is well aware of the risks, benefits, details of this procedureincluding risk of bleeding, infection, possible need for stent. Despitethese risks among others she wants to proceed.PROCEDURE: She is then brought back to the Operating Room and a ftersuccessful induction of general anesthesia by laryngeal mask airway by she is positioned in a modified dorsal lithotomy position, preppedin the usual fashion with Betadine solution and 2% Xylocaine Jelly isplaced per urethra. A well lubricated 22 Nepali cystourethroscope with 30degree lens is then passed into the bladder. Moderately tight through theurethra upon passage. Once into the bladder panendoscopy reveals no tumors,no stones, no diverticula. The orifices are normal x2. Specifically thereis absolutely no left-sided ureteral inflammation. There is no erythema.There is nothing to suggest recent passage of a stone. A left retrogradepyelogram was then performed utilizing a 6 Nepali open-ended ureteralcatheter. The ureter is completely normal up to the level of the kidneys.There is no pelvicalyceal dilatation. There is no filling defect withinthe urinary collecting systemat all. The retrograde pyelogram was repeatedthree times [...] the procedure well, was transferred [facility] then back to Post- Anesthesia Care Unit in a satisfactory condition,stable vital signs.The plan is for discharge home with plans to follow up in the EmergencyRoom should her pain persist.She currently has no primary care physicianas she has not yet seen Dr. Osborne. I discussed all this with the patient'shusband postoperatively. At this point despite the computerized tomographyscan findings I can find no urologic etiology for her continued pain anddiscomfort. My plan will be to see her in the office in six months with aKXENA.Joel Monroe M.D.lkrDictated: 05/21/2018 #[id number]: 05/22/2018 #[id number]: Steve Tinajero M.D. [facility] CenterComment on above:Result Comment: Electronically Signed By: Joel Monroe MD\.br\Date and Time Signed: 05/22/18 16:45 EDT Inpatient Patient Summaryon [id number] Patient SummaryPike Community HospitalClinical Discharge InstructionsPERSON INFORMATION Name: KAREN ZAIDI PHYSICIANS Admitting Physician: Joel Monroe MDAttending Physician: Joel Monroe MD PCP: Lewis OSBORNE MD Diagnosis: Hydronephrosis with ureteral calculus Comment: PATIENT EDUCATION INFORMATIONInstructions:Medication Leaflets:Follow up:With: Address: When: Joel Alfaro [facility], [address], [place] [id number] [facility] (1) In 6 months 11/21/2018 Comments: Please have my office arrange for an abdominal X-ray before your visit (looking for stones in the kidneys) MEDICATION LISTComment:[facility] CenterMain OR PACU I Recordon [id number] OR PACU I RecordPACU Phase I Document Type FT Summary Primary Physician: Joel Monroe MD Finalized Date/Time: 05/21/18 12:01:48 Pt. Name: KAREN ZAIDI /Sex: 1955 FemaleMed Rec #: [id number] Physician: Joel Monroe MD Financial #: [id number] Pt. Type: A Room/Bed: [place] [address] Admit/Disch: 05/21/18 07:49:37 - Institution: Case Times [...] Evaluates postoperative cardiac status Evaluates postoperative neurological s tatus Assesses pain control, collaborated in initiating patient-controlled analgesia and implementsalternative methods of pain control Verifies allergies, administers prescribed medications and solutions, evaluates response to medications Entry 1 In PACU I 05/21/18 11:06:00 Discharge from PACU 05/21/18 11:53:00 I Outcomes Met? Yes Last Modified By: Cheo CONTRERAS, Alisa Longoria 05/21/18 12:01:38 Post-Care Text: The patient demonstrates [...] perfusion consistent with or improved from baseline le vels established preoperatively The patient is at or returning to normothermia at the conclusion ofthe immediate postoperative period The patient's respiratory function is consistent with or improved from baseline levels established preoperatively The patient's cardiovascular status is consistent with or improved from baseline levels established preoperatively The patient's cardiovascular statusis consistent with or improved from baseline levels established preoperatively The patient demonstrates and/or reports adequate pain control throughout the perioperative period The patient received appropriate medication(s), safely administered during the perioperative period Acuity Level PACU I FTEntry 1 Start Time 05/21/18 11:06:00 Stop Time 05/21/18 11:53:00 Acuity Level Acuity Level I Last Modified By: Alisa Grider RN 05/21/18 12:01:45 Finalized By: Alisa Grider RN Document Signatures Signed By: Alisa Grider RN 05/21/18 12:01[facility] CenterMain OR PACU II Recordon [id number] OR PACU II RecordPACU Phase II Document Type FT Summary Primary Physician: Joel Monroe MD Finalized Date/Time: 05/21/18 13:41:43 Pt. Name: KAREN ZAIDI Jose Manuel Traore/Sex: 1955 Female Med Rec #: [id number] Physician: Joel Monroe MD Financial #: [id number] Pt. Type: A Room/Bed: 02/ Admit/Disch: 05/21/18 [...] the perioperative plan of care The patient participatesin decisions affecting his or her perioperative plan of care. The patient is free from signs and symptoms of infection The patient has wound/tissue perfusion consistent with or improved from baselinelevels established preoperatively The patient is at or returning to normothermia at the conclusion of the immediate postoperative period The patient's respiratory function is consistent with or improved from baseline levels established preoperatively The patient's cardiovascular status is consistent with or improved from baseline levels established preoperatively The patient's neurological statusis consistent with or improved from baseline levels established preoperatively The patient demonstrates and/or reports adequate pain control throughout the perioperative period The patient received appropriate medication(s), safely administered during the perioperative period Finalized By: Almita Poe RN Document Signatures Signed By: Almita Poe RN 05/21/18 13:41[facility] CenterMain OR Preoperative Recordon [id number] OR Preoperative RecordPreOp Document Type FT Summary Primary Physician: Joel Monroe MD Finalized Date/Time: 05/21/18 10:37:48 Pt. Name: KAREN ZAIDI Jose Manuel Martin/Sex: 1955 Female Med Rec #: [id number] Physician: Joel Monroe MD Financial #: [id number] Pt. Type: A Room/Bed: [place] [address] Admit/Disch: 05/21/18 07:49:37 - Institution: Case Times PreOp FT Pre-Care Text: Verifies consent for planned procedure, identifies individual values and wishes concerning care, includes family members in perioperative teaching Entry 1 Patient Times. In Pre Surgery 05/21/18 08:00:00 Out Pre Surgery 05/21/18 10:35:00 Outcomes Met? Yes Last Modified By: LAURIE Velez RN, Lou Ann 05/21/18 10:37:29 Post-CareText: The patient participates in decisions affecting his or her perioperative plan of care Finalized By: LAURIE Velez RN, Lou Ann Document Signatures Signed By: LAURIE Velez RN, Lou Ann 05/21/18 10:37LAURIE Velez RN, Pura Ann 05/21/18 10:37Nosarah Moralez [facility] Medical CenterPatient Education - Texton [id number] Education - TextNoLenny Grace Medical CenterProgress Note-Physicianon [id number] mass concPatient: KAREN ZAIDI Age: 62 years Sex: Female : 1955 Associated Diagnoses: None Author: Kian Quiroz JR, DO Postoperative Information Post Operative Note: Post Anesthesia Care Unit. Anesthetic utilized: General, Monitored anesthesia care. Health Status Allergies: Allergic Reactions (Selected)SevereAmoxicillin- Rash.Bee Stings- Redness.Clindamycin- Rash.Doxycycline- Stomach upset.Penicillins- Rash. Current medications: (Selected) Inpatient Medications NqnhdrrX9VJ 1000 mL Soln-IV 1,000 mL: 1,000 mL, IV, 150 mL/hr, Routine, Start date 05/21/18 8:45:00EDT, 6.7 hour(s), Total volume (mL): 1,000Documented MedicationsDocumentedMacrobid: 100 mg, Oral, BID, Refills(s) 0, Bladder problemsVicodin: 1 tab(s), Oral, q4hr as needed for pain, Refill(s) 0, Pain ibuprofen 800 mg Tab: 800 mg = 1 tab(s), Oral, TID, PRN as needed for pain, Refills(s) 0, Pain Problem list: All ProblemsKidney stone on left side / SNOMED CT 134741032 / ConfirmedArthritis / SNOMED CT 0398512 / Confirmed Physical Examination Intake and Output Denies significant n/v and is tolerating p.o. Vital Signs (last 24 hrs) Last Charted Temp Oral 36.9 DegC (MAY 21 12:55)Heart Rate Apical 70 bpm (MAY 21 09:00)Resp Rate 16 br/min (MAY 21 12:55)SBP 138 mmHg (MAY 21 12:55)DBP 81 mmHg (MAY 912:55)SpO2 99 % (MAY 21 12:55) Pain assessment: [...] Preferred Pain Tool Numeric rating Numeric Pain Scale6 Numeric Pain Score 6 . Respiratory: Adequate air exchange with buddhist of preoperative function.. Cardiovascular: Cardiovascular function is stable and has returned to preoperative levels.. Neurologic: Pt has returned to preoperative baseline.. Review / Management Condition: Stable. Assessment Anesthetic outcome No anesthetic complications noted. Plan Transfer/ Discharge: Patient can be disc harged from PACU when criteria met. Condition good.[facility] CenterComment on above:Result Comment: Electronically Signed By: Kian Quiroz JR, DO\.br\Date and Time Signed: 05/21/18 16:05 EDTProtein mass concPatient: KAREN ZAIDI Age: 62 years Sex: Female : 1955 Associated Diagnoses: None Author: Kian Quiroz JR, DO Postoperative Information Post Operative Note: Post Anesthesia Care Unit. Anesthetic utilized: General, Monitored anesthesia care. Health Status A llergies: Allergic Reactions (Selected)SevereAmoxicillin- Rash.Bee Stings- Redness.Clindamycin- Rash.Doxycycline- Stomach upset.Penicillins- Rash. Current medications: (Selected) Inpatient VwusxycyxtuWuylkwwE5FR 1000 mL Soln-IV 1,000 mL: 1,000 mL, IV, 150 mL/hr, Routine, Start date 05/21/18 8:45:00EDT, 6.7 hour(s), Total volume (mL): 1,000Dilaudid 2 [...] 25 mg/mL Injection: 12.5 mg = 0.5 mL , Injection, IV Push, q2min PRN Other (see comment) for 2 dose(s), Stop date Limited # of times, Routine, Start date 05/21/18 10:19:00 EDTDocumented MedicationsDocumentedMacrobid: 100 mg, Oral, BID, Refills(s) 0, Bladder problemsVicodin: 1 tab(s), Oral, q4hr as needed for pain, Refill(s) 0, Painibup rofen 800 mg Tab: 800 mg = 1 tab(s), Oral, TID, PRN as needed for pain, Refills(s) 0, Pain Problem list: All ProblemsKidney stone on left side / SNOMED CT 656751199 / ConfirmedArthritis / SNOMED CT 5177439 / Confirmed Physical Examination Intake and Output Denies significant n/v and is tolerating p.o. Vital Signs (last 24 hrs) Last Charted Temp Oral 36.6 DegC (MAY 21 08:12)Heart Rate Apical 70 bpm (MAY 21 09:00)Resp Rate 16 br/min (MAY 21 08:12)SBP H 147 mmHg (MAY 21:50)DBP 75 mmHg (MAY 21 09:50)SpO2 98 % (MAY 21 08:14) Pain assessment: Pain Assessment 05/21/2018 08:12 EDT Preliminary PainScale 6 05/21/2018 08:12 EDT Pain Symptoms Self Report Yes, able to self report Primary Pain Location Uterine Primary Pain Laterality Left Primary Pain Quality Burning, Cramping Patient Preferred Pain Tool Numeric rating Numeric Pain Scale 6 Numeric Pain Score 6 . Respiratory: Adequate air exchangewith buddhist of preoperative function.. Cardiovascular: Cardiovascular function is stable and mcdaniel s returned to preoperative levels.. Neurologic: Pt has returned to preoperative baseline.. Review /Management Condition: Stable. Assessment Anesthetic outcome No anesthetic complications noted. PlanTransfer/ Discharge: Patient can be discharged from PACU when criteria met. Condition good.[facility] CenterProtein mass concPatient: KAREN ZAIDI Age: 62 years Sex: Female : 1955 Associated Diagnoses: None Author: Kian Quiroz JR, DO Preoperative Information Anesthesia history: P atient History: Pt./ family denies any personal or family hx of problems/difficulties with anesthesia.. Re-eval prior to induction: Inital eval reviewed: No significant interval change, NPO 10 hours.. Review of Systems Constitutional: See nursing assessment.. Cardiovascular: Cardiac risk assessment performed. Pt. denies any significant change in their cv hx.. Respiratory: Pt. denies any signicantchange in their respiratory status.. Neurologic: Pt. denies any acute neurological changes.. HealthStatus Allergies: Allergic Reactions (Selected)SevereAmoxicillin- Rash.Bee Stings- Redness.Clindamycin- Rash.Doxycycline- Stomach upset.Penicillins- Rash., Allergies (5) Active Reactionamoxicillin RashBee Stings Rednessclindamycin Rashdoxycycline Stomach upsetpenicillins Rash Current medications: (Selected) Inpatient DausogsfeeuGqxvgdzH1PL 1000 mL Soln-IV 1,000 mL: 1,000 mL, [...] times, Routine, Start date 05/21/18 10:19:00 EDTDocumented MedicationsDocumented Macrobid: 100 mg, Oral, BID, Refills(s) 0, Bladder [...] [F] 0.4 mg 0.2 mL, IV Push, i9rgrxoabdvyvahoz 25 mg/mL Inj [F] 12.5 mg 0.5 mL, IV Push, q2min Problem list: All ProblemsKidney stone on left side / SNOMED CT 138747404 / ConfirmedArthritis / SNOMED CT 4409647 / Confirmed, Active Problems (2)Arthritis Kidney stone on left side His tories Past Medical History: No active or resolved past medical history items have been selected orrecorded. Family History: No family history items have been selected or recorded. Procedure history: Cholecystectomy (04487445).knee arthroscopy for torn meniscus, rt.Tubal ligation (444436350). Social History Social & Psychosocial LbnqxkLxuikos07/07/2018 Risk Assessment: Denies Alcohol UseSubstance Abuse05/19/2018 Risk Assessment: Denies Substance BivswIjdecvt75/07/2018 Risk Assessment: Denies Tobacco Use. Physical Examination Vital Signs (last 24 hrs) Last Charted Temp Oral 36.6 DegC ( 08:12)Heart Rate Apical 70 bpm (MAY 21 09:00)Resp Rate 16 br/min (MAY 21 08:12)SBP H 147 mmHg (MAY 21 09:50)DBP 75 mmHg (MAY 21 09:50)SpO2 98 % (MAY 21 08:14) Airway: Normal oral/pharyngeal anatomy.. Respiratory: Adequate air exchange.. Cardiovascular: Adequate perfusion and function. Review / Management Results review: No qualifying data available. Plan [place] [employer]esthesiologists (ASA) physical status classification: Class II. Anesthetic Preoperative Plan Anesthesia: General. . Anesthetic plan, risks, benefits, and alternatives discussed with the patient and/or family. Pt. and/or family present and agree to proceed as planned.. Discussed the importance of abstaining from tobacco products, and offered counseling if desired.[facility] Comment on above:Result Comment: Electronically Signed By: Kian Quiroz JR, DO\.br\Date and Time Signed: 05/21/18 10:58 EDTXR Abdomen 1 Viewon 05-21-2018 Protein mass concExam Date/Time:05/21/2018 08:06 EDTReason for Exam:Kidney stoneReportIMPRESSION: NO [...] Bryanna Morris MD Transcribed by: DORON Technologist: [facility] OhioXR Urography Retrograde Lefton [id number] Urography Retrograde LeftExam Date/Time:05/21/2018 12:42 EDTReason for Exam:stoneReportIMPRESSION: UNREMARKABLE LEFT RETROGRADE PYELOGRAMCLINICAL HISTORY: stoneCOMPARISON: NONE. FINDINGS: 6 fluoroscopic images were saved during left retrograde pyelogram. Thereis no sign of obstruction. There are no worrisome filling defects.Fluoroscopy time was 54 seconds. Cumulative x-ray dose was 3.1 mGy. FINAL REPORT Dictated: 05/21/2018 5:30 pm Bryanna Morris MD Signed (Electronic Signature): 05/21/2018 5:30 pm Signedby: Bryanna Morris MD Transcribed by: DORON Technologist: Lata AlonsoRadiation Dose: Ka,r in mGy = 3.1Fluoro Time: [address] Charles HospitalCoding Summary.on [id number] Summary.CODING DATE: 05/20/2018 FINAL [facility] STATUS: Home (Routine DC) PAYOR: Commercial Insurance APC DESCRIPTION 5521 Level 1 Imaging without Contrast ADMIT DX: REASON FOR VISITDX: Z01.818 Encounter for other preprocedural examination FINAL DX: PRINCIPAL: Z01.818 Encounter for other preprocedural examination SECONDARY: N20.0 Calculus of kidney M19.90 Unspecified osteoarthritis, unspecified site PYMT PROC APC STAT DESCRIPTION DOCTOR NAME DATE NOTE: The code number assignedmatches the documented diagnosis and / or procedure in the patient's chart. However, the narrative phrase printed from the coding software may appear abbreviated, or result in slightly different terminology. Coded By: Halima Eng Date Saved: 05/20/2018 01:06 pmNKindred Hospital LimaPT & PTTon [id number] Coag time (Bld)30.5 second(s)Wkffof95.1-36.5FOhio State University Wexner Medical CenterComment on above:Result Comment: Heparin therapeutic range (represented by Anti-Factor Xa activity of 0.2 - 0.4 U/mL) corresponds to PTT of 53.9 - 87.4 sec.Performed By: #### [id number] ####[facility] [address] [place], [place] [address]REV Coag RelTime (PPP)1.0 {INR}Invalid Interpretation [facility] HospitalComment on above:Result Comment: INR results are specifically intended to assess patients stabilized on long-term Anticoagulation therapy suggested INR?s ?Less Intensive Anticoagulation? 2.0 ? 3.0Conventional Range 3.0 ? 4.5Performed By: #### [id number] ####[facility] [address] [place], [place] [address]Zzyldzednmh time (PT) Coag time (PPP)10.9 second(s) Mtiphh82.2-12.9[facility] HospitalComment on above:Performed By: #### [id number] ####[facility] [address] [place], [place] [address]CR Chest 2 Viewson [id number] Chest 2 ViewsExam Date/Time:05/19/2018 13:26 EDTReason for Exam:pre opReportIMPRESSION: NO [...] Jaxon Siddiqi MD Transcribed by: akbar Technologist: CandaceMi[facility] Hospital Vital Signs Date TimeVital SignValuePerforming RioxbrsluApwljztm09-81-3038 12:46-0400Body bqmvbtbryft33.3 [degF][address]10-23-2025 12:46-0400 Diastolic blood uefmbyaa61 mm[Hg][address]10-23-2025 12:46-0400Heart rate65 /min[address]10-23-2025 12:46-0400 Respiratory rate18 /min[address]10-23-2025 12:46-1114IkH0% (BldA) [Mass fraction]100 %[address]10-23-2025 12:46-0400 Systolic blood yphqnctk200 mm[Hg][address]10-23-2025 12:11-0400Body frkgwu763.[address]10-23-2025 12:11-0400 Body mass index (BMI) [Ratio]21.82 kg/g6Oiuyz [address] [place], [place] [address]10-23-2025 12:11-0400Body okghyh92.[address] [place], [place] [address]10-17-2025 09:53-0400 Body dowxcw886.2 cmSirina Godwin MD Work Phone: [facility]10-17-2025 09:53-0400Body mass index (BMI) [Ratio]20.98 kg/c2ZtjxykfulSarah Godwin MD Work Phone: [facility]10-17-2025 09:53-0400Body twxrhqohvcy32.59 [degF]Sarah Godwin MD Work Phone: [facility]10-17-2025 09:53-0400Body kxtuhb51.78 kgSarah Godwin MD Work Phone: [facility]10-01-2025 11:35-0400Body fyqxox583.18 cmAmmon Osborne MD Work Phone: [phone]26[facility]10-01-2025 11:35-0400 Body mass index (BMI) [Ratio]21.3 kg/x9UvcqijAmmon Osborne MD Work Phone: [phone]10-01-2025 11:35-0400 Body imeojb17.85 kgAmmon Osborne MD Work Phone: [facility]10-01-2025 11:35-0400 Diastolic blood hxnjpawn66 mm[Hg]Ammon Osborne MD Work Phone: [phone]10-01-2025 11:35-0400 Heart rate76 /minAmmon Osborne MD Work Phone: [facility]10-01-2025 11:35-0400 Systolic blood kiihsfwv215 mm[Hg]Ammon Osborne MD Work Phone: [facility]09-23-2025 10:57-0400 Body fskbah766.2 Juno WARD Work Phone: [facility]09-23-2025 10:57-0400Body mass index (BMI) [Ratio]21.64 kg/o9IyazibvAugustina Null [employer] Work Phone: [facility]09-23-2025 10:57-0400Body qloeod57.69 kgAugustina Null [employer]INE [employer] Work Phone: [facility]2025 09:55-0400Body uqhrfh992.18 cmAmmon Osborne MD Work Phone: [phone]2025 09:55-0400 Body mass index (BMI) [Ratio]22.1 kg/l9JcwbfwAmmon Osborne MD Work Phone: [phone]2025 09:55-0400 Body ijzyyh46.95 kgAmmon Osborne MD Work Phone: [phone]2025 09:55-0400 Diastolic blood mm[Hg]Ammon Osborne MD Work Phone: [phone]2025 09:55-0400 Heart rate78 /minAmmon Osborne MD Work Phone: [phone]2025 09:55-0400 Systolic blood mm[Hg]Ammon Osborne MD Work Phone: [phone]08-22-2025 10:59-0400 Body agigyq148.18 cmAmmon Osborne MD Work Phone: [phone]08-22-2025 10:59-0400 Body mass index (BMI) [Ratio]22.5 kg/s5GauctkAmmon Osborne MD Work Phone: [phone]08-22-2025 10:59-0400 Body .31 kgAmmon Osborne MD Work Phone: [phone]08-22-2025 10:59-0400 Diastolic blood mm[Hg]Ammon Osborne MD Work Phone: [facility]08-22-2025 10:59-0400 Heart rate63 /minAmmon Osborne MD Work Phone: [facility]08-22-2025 10:59-0400 Systolic blood mm[Hg]Ammon Osborne MD Work Phone: [facility]08-21-2025 08:52-0400 Body vhevbh504.2 cmLeanne Tenisha DO Work Phone: [facility] MedicineYevwjwiouf34-52-1737 08:52-0400Body mass index (BMI) [Ratio]21.93 kg/k7Vpjlec Tenisha DO Work Phone: [facility] MedicineQpyrkxpzza37-16-3367 08:52-0400Body .5 kg Dania Tenisha DO Work Phone: [facility] MedicineZvohwhoemu23-10-2340 08:52-0400Diastolic blood ufsumsbt14 mm[Hg]Dania Tenisha DO Work Phone: [facility] MedicineVzahvccqud33-02-5989 08:52-0400Heart rate65 /min Dania Tenisha DO Work Phone: [facility] MedicineUspkgumfcw07-29-4686 08:52-5662IsI8% (BldA) [Mass fraction]99 %Dania Tenisha DO Work Phone: [facility] MedicineDrfznxrcpo48-64-4394 08:52-0400Systolic blood mm[Hg]Dania Tenisha DO Work Phone: [facility] MedicineHqmvtxuklb81-11-6849 15:43-0400Diastolic blood cygpfluv21 mm[Hg]Augustina Vargas MD Work Phone: cMer[facility] HospitalUmnols15-33-5765 15:43-0400Systolic blood uplcqkmo882 mm[Hg]Augustina Vargas MD Work Phone: [facility]velFlower HospitalEdmgrf08-64-3834 11:22-0400Body mass index (BMI) [Ratio]21.79 kg/i5Gmmravq Al-Ashkar MD Work Phone: [facility] [facility]04-29-2025 11:22-0400Body mlyegn17.1 kgGi Siddiqi MD Work Phone: [facility]04-29-2025 11:22-0400Diastolic blood mm[Hg]Gi Siddiqi MD Work Phone: [facility]04-29-2025 11:22-0400Heart rate65 /min Gi Siddiqi MD Work Phone: [facility]04-29-2025 11:22-0400Systolic blood bahjpiea601 mm[Hg]Gi Siddiqi MD Work Phone: [facility]02-26-2025 16:04-0500Body mass index (BMI) [Ratio]21.61 kg/z5TnkmhvfAugustina Vargas MD Work Phone: [facility] HospitalSidrgn75-04-9656 16:04-0500Body cvogxa62.6 kgAugustina Vargas MD Work Phone: [phone] Kjcsem91-73-1015 16:04-0500Diastolic blood mm[Hg]Augustina Vargas MD Work Phone: [phone] Ezrwoo70-42-7428 16:04-0500Systolic blood ninrsvuo099 mm[Hg]Augustina Vargas MD Work Phone: [phone] HospitalJzcyam42-36-4877 11:04-0500Body mass index (BMI) [Ratio]22.15 kg/m2Keri LIN Work Phone: [facility] HospitalPkfpgomadn25-10-5257 11:04-0500Body wfoqze47.14 kgKeri LIN Work Phone: [facility] HospitalJfpvzajool20-15-2605 11:04-0500Diastolic blood nyrqlerr90 mm[Hg]Keri LIN Work Phone: NON[facility] HospitalDjlztjupyv77-64-4459 11:04-0500Systolic blood gqcmavvh778 mm[Hg]Keri LIN Work Phone: [facility] MedicineCytxdltjpc67-48-5234 10:19-0400Body .2 Danika Godwin MD Work Phone: [facility]10-14-2024 10:19-0400Body mass index (BMI) [Ratio]21.64 kg/p2CijvyvykwSarah Godwin MD Work Phone: [facility]10-14-2024 10:19-0400Body yjwasuhgjse08.29 [degF]Sarah Godwin MD Work Phone: [facility]10-14-2024 10:19-0400Body zjdepd97.69 kgSarah Godwin MD Work Phone: [facility]09-24-2024 10:26-0400Body mass index (BMI) [Ratio]21.27 kg/t7QgscnxyAugustina Vargas MD Work Phone: [phone] HospitalZsvlex89-67-8696 10:26-0400Body jsztxo50.6 kgAugustina Vargas MD Work Phone: [phone] Exdykr63-81-3396 10:26-0400Diastolic blood sejlstrz59 mm[Hg]Augustina Vargas MD Work Phone: [phone] Whansk80-74-2496 10:26-0400Systolic blood qxuktsuu503 mm[Hg]Augustina Vargas MD Work Phone: [facility]levelF[facility] HospitalXhvxpq55-73-7215 08:47-0400Body zbevsq381.2 Analy Warren DO Work Phone: [facility] MedicineOvyncqmwnr16-84-5473 08:47-0400Body mass index (BMI) [Ratio]21.77 kg/n8TuwsckDania Warren DO Work Phone: noNorth [facility] HospitalHpujvenfng54-30-8897 08:47-0400Body ioagkl90.05 kgDania Warren DO Work Phone: [phone] [place], [place] [address]Eqxfnyqwkm12-25-8119 08:47-0400Diastolic blood uswieeur55 mm[Hg]Daniaibrahima Warren DO Work Phone: [place] [address]Dymjwgmdrk76-13-5664 08:47-0400Heart rate66 /min Dania Tenisha DO Work Phone: [place] [address]Lhouccvdwu56-80-1810 08:47-8561BlI5% (BldA) [Mass fraction]99 %Dania Tenisha DO Work Phone: [phone] [address]Kpmkjxskog72-06-9027 08:47-0400Systolic blood lfaqzxef772 mm[Hg]Dania Warren DO Work Phone: [phone] [address]Nohvggnvky67-56-1237 08:49-0400Body .2 cmAugustina Vargas MD Work Phone: O[facility] HospitalAbesbc45-50-5503 08:49-0400Body mass index (BMI) [Ratio]20.83 kg/j5QocrdgkAugustina Vargas MD Work Phone: [facility] HospitalYluiys05-32-6134 08:49-0400Body oeymcp34.33 kgAugustina Vargas MD Work Phone: [place] [address]-15-2024 08:49-0400Diastolic blood ixujcvrl26 mm[Hg]Augustina Vargas MD Work Phone: [facility] HospitalYratvu40-03-7420 08:49-0400Systolic blood tkyaerno704 mm[Hg]Augustina Vargas MD Work Phone: [facility] HospitalYcpjfe49-32-4336 12:57-0400Body .2 cmPacc 9 Work Phone: [facility]05-09-2024 12:57-0400Body mass index (BMI) [Ratio]20.92 kg/m2Pacc 9 Work Phone: [facility]05-09-2024 12:57-0400Body temperature 97 [degF]Pacc 9 Work Phone: [phone]05-09-2024 12:57-0400Body qbjteb14.6 [facility] Work Phone: [facility]05-09-2024 12:57-0400Diastolic blood bvybuzzm21 mm[Hg][facility] 9 Work Phone: [facility]05-09-2024 12:57-0400Heart rate60 /min [facility] 9 Work Phone: [facility]05-09-2024 12:57-0994LjE7% (BldA) [Mass fraction]100 %[facility] 9 Work Phone: [facility]05-09-2024 12:57-0400Systolic blood rveobwxk446 mm[Hg][facility] 9 Work Phone: [facility]04-30-2024 09:53-0400Body iwezea732.2 Danika Godwin MD Work Phone: [facility]04-30-2024 09:53-0400Body mass index (BMI) [Ratio]20.86 kg/n5PmicxjzjkSarah Godwin MD Work Phone: [facility]04-30-2024 09:53-0400Body usxybxurdev60.71 [degF]Sarah Godwin MD Work Phone: [facility]04-30-2024 09:53-0400Body .42 kgSarah Godwin MD Work Phone: [facility]03-07-2024 11:37-0500Body vvdvud597.9 Aly Fox MD Work Phone: [facility]03-07-2024 11:37-0500Body temperature 98.29 [degF]Rina Fox MD Work Phone: [facility]03-07-2024 11:37-0500Body ltloci85.42 kgRina Fox MD Work Phone: [facility]03-07-2024 11:37-0500Diastolic blood reglsnee94 mm[Hg]Rina Fox MD Work Phone: [facility]03-07-2024 11:37-0500Heart rate64 /min Rina Fox MD Work Phone: [facility]03-07-2024 11:37-0500Respiratory rate 14 /minRina Fox MD Work Phone: [facility]03-07-2024 11:37-6067EfB0% (BldA) [Mass fraction]100 %Rina Fox MD Work Phone: [phone]03-07-2024 11:37-0500Systolic blood cmoasjss876 mm[Hg]Rina Fox MD Work Phone: [facility]02-20-2024 12:23-0500Body .2 cmMorgan Iwema PA-C Work Phone: [facility]02-20-2024 12:23-0500Body mass index (BMI) [Ratio]20.45 kg/e0Epxdjl Iwema PA-C Work Phone: [facility]02-20-2024 12:23-0500Body hqdjikgxdjn79.01 [degF]Matthew GROUNDBOOTHema PA-C Work Phone: [facility]02-20-2024 12:23-0500Body .24 kgMorgan Iwema PA-C Work Phone: [facility]01-31-2024 14:20-0500Body uyeqnr804.[address]01-31-2024 14:20-0500Body mass index (BMI) [Ratio]20.92 kg/g2Eiyci[address]01-31-2024 14:20-0500Body fnepxqynshn61.2 [degF][address]01-31-2024 14:20-0500Body oarrxk18.[address]01-31-2024 14:20-0500Diastolic blood ttomxzel77 mm[Hg][address]01-31-2024 14:20-0500Heart rate67 /min[address]01-31-2024 14:20-0500Respiratory rate18 /min [address]01-31-2024 14:20-4351ByM8% (BldA) [Mass fraction] 98 %[address]01-31-2024 14:20-0500Systolic blood pressure 127 mm[Hg][address]12-19-2023 15:43-0500Body xbkmev582.2 cm Sarah Godwin MD Work Phone: [facility]12-19-2023 15:43-0500Body mass index (BMI) [Ratio]20.05 kg/x5UpzjmfwduSarah Godwin MD Work Phone: [facility]12-19-2023 15:43-0500Body ngdcsalropy34.71 [degF]Sarah Godwin MD Work Phone: [facility] [employer] Zlptqr77-55-0645 15:43-0500Body xwediw73.06 kgSarah Godwin MD Work Phone: [facility] Ypnuyw70-55-8718 10:45-0500Body kezeyu184.64 cmAmmon Osborne Other [employer] Other 11-20-2023 10:45-0500Body mass index (BMI) [Ratio] 19.69 kg/a0AtjusmAmmon Osborne Other [employer] Other 11-20-2023 10:45-0500Body apzlon23.34 kgAmmon Osborne Other [employer] Other 11-20-2023 10:45-0500Diastolic blood sduchqie65 mm[Hg] Ammon Osborne Other [employer] Other 11-20-2023 10:45-0500Systolic blood wstwuzef679 mm[Hg] Ammon Obsorne Other [employer] Other 10-17-2023 10:00-0400Body lgezgl376.64 cmAmmon Dylon Other [employer] Other 10-17-2023 10:00-0400Body mass index (BMI) [Ratio] 19.72 kg/f9Hehygs Dylon Other [employer] Other 10-17-2023 10:00-0400Body .43 kgAmmon Dylon Other [employer] Other 10-17-2023 10:00-0400Diastolic blood rnvlzoxl28 mm[Hg] Ammon Osborne Other [employer] Other 10-17-2023 10:00-0400Systolic blood mm[Hg] Ammon Osborne Other [employer] Other 09-20-2023 10:00-0400Body zyxvym831.64 cmRicardaeloina Osborne Other [employer] Other 09-20-2023 10:00-0400Body mass index (BMI) [Ratio] 20.01 kg/m8Efsqyf Braun Other [employer] Other 09-20-2023 10:00-0400Body .25 kgMarilynjuaneloina Osborne Other [employer] Other 09-20-2023 10:00-0400Diastolic blood ulcgcizh54 mm[Hg] Ammon Osborne Other [employer] Other 09-20-2023 10:00-0400Systolic blood aqihciaz953 mm[Hg] Ammon Osborne Other [employer] Other 08-25-2023 13:45-0400Body sxkmif179.64 cmMarilynmindi Dylon Other [employer] Other 08-25-2023 13:45-0400Body mass index (BMI) [Ratio] 20.66 kg/b3NdjqjnAmmon Osborne Other [employer] Other 08-25-2023 13:45-0400Body ezkxwe19.06 kgMarilynjuaneloina Osborne Other [employer] Other 08-25-2023 13:45-0400Diastolic blood qbfuvmdt05 mm[Hg] Ammon Osborne Other [employer] Other 08-25-2023 13:45-0687AjO9% (BldA) [Mass fraction]99 % Ammon Osborne Other [employer] Other 08-25-2023 13:45-0400Systolic blood dfylwgkp123 mm[Hg] Ammon Osborne Other [employer] Other 08-17-2023 09:50-0400Body .64 cmAleno Joyner Other [employer] Other 08-17-2023 09:50-0400Body mass index (BMI) [Ratio] 20.43 kg/t9LjgenAyaka Joyner Other [employer] Other 08-17-2023 09:50-0400Body mozoezmsajx67.3 [degF]Ayaka Joyner Other [employer] Other 08-17-2023 09:50-0400Body omxjty61.43 kgAyaka Joyner Other [employer] Other 08-17-2023 09:50-0400Diastolic blood sdcicizw63 mm[Hg] Ayaka Joyner Other [employer] Other 08-17-2023 09:50-0400Respiratory rate18 /minAyaka Joyner Other [employer] Other 08-17-2023 09:50-4706YsH7% (BldA) [Mass fraction]96 % Ayaka Joyner Other [employer] Other 08-17-2023 09:50-0400Systolic blood amcrxhff325 mm[Hg] Ayaka Joyner Other [employer] Other 05-02-2023 14:45-0400Body sbquft232.64 cmAmmon Osborne Other [employer] Other 05-02-2023 14:45-0400Body mass index (BMI) [Ratio] 22.76 kg/c0XsjyxiAmmon Osborne Other [employer] Other 05-02-2023 14:45-0400Body jhzvrsjhlho62.8 [degF]Ammon Osborne Other [employer] Other 05-02-2023 14:45-0400Body zvgekh16.96 kgAmmon Osborne Other [employer] Other 05-02-2023 14:45-0400Diastolic blood rlvdazon01 mm[Hg] Ammon Osborne Other [employer] Other 05-02-2023 14:45-9537HoX5% (BldA) [Mass fraction]93 % Ammon Dylon Other [employer] Other 05-02-2023 14:45-0400Systolic blood jjsxunct816 mm[Hg] Ammon Dylon Other [employer] Other 05-02-2023 11:15-0400Body nozfpl303.91 cmAmbgregoria Joyner Other [employer] Other 05-02-2023 11:15-0400Body mass index (BMI) [Ratio] 21.94 kg/y8IeisqAyaka Joyner Other [employer] Other 05-02-2023 11:15-0400Body yxdjuluawuw76.7 [degF]Ayaka Joyner Other [employer] Other 05-02-2023 11:15-0400Body kpfvbu10.6 kgAyaka Joyner Other [employer] Other 05-02-2023 11:15-0400Diastolic blood mekxrhkw68 mm[Hg] Ayaka Joyner Other [employer] Other 05-02-2023 11:15-0400Respiratory rate18 /minAyaka Joyner Other [employer] Other 05-02-2023 11:15-9822QbO4% (BldA) [Mass fraction]99 % Ayaka Joyner Other [employer] Other 05-02-2023 11:15-0400Systolic blood lslozmyo030 mm[Hg] Ayaka Joyner Other [employer] Other 02-10-2023 13:35-0500Body udmqnh368.91 cmAmbgregoria Joyner Other [employer] Other 02-10-2023 13:35-0500Body mass index (BMI) [Ratio]22.1 kg/w6OgagaAyaka Joyner Other [employer] Other 02-10-2023 13:35-0500Body dmzyuwlwmcg18 [degF]Ayaka Joyner Other [employer] Other 02-10-2023 13:35-0500Body .05 kgAyaka Joyner Other [employer] Other 02-10-2023 13:35-0500Respiratory rate18 /minAyaka Joyner Other [employer] Other 02-10-2023 13:35-0025JhS9% (BldA) [Mass fraction]98 % Ayaka Joyner Other [employer] Other 01-19-2023 15:30-0500Body pjkrum512.91 cmAmmon Osborne Other [employer] Other 01-19-2023 15:30-0500Body mass index (BMI) [Ratio] 22.57 kg/a5XcvsmyAmmon Osborne Other [employer] Other 01-19-2023 15:30-0500Body xercrt05.41 kgMarcieloina Dylon Other [employer] Other 01-19-2023 15:30-0500Diastolic blood ehogbbjg66 mm[Hg] Ammon Osborne Other [employer] Other 01-19-2023 15:30-9781PsF8% (BldA) [Mass fraction]97 % Ammon Osborne Other [employer] Other 01-19-2023 15:30-0500Systolic blood rgcaklxm983 mm[Hg] Ammon Osborne Other [employer] Other 10-16-2022 12:55-0400Body .18 cmAleno Joyner Other [employer] Other 10-16-2022 12:55-0400Body mass index (BMI) [Ratio] 22.65 kg/i5MpnrcAyaka Joyner Other [employer] Other 10-16-2022 12:55-0400Body eaupczewcov03.5 [degF]Ayaka Joyner Other [employer] Other 10-16-2022 12:55-0400Body beyafe41.59 kgAyaka Joyner Other [employer] Other 10-16-2022 12:55-0400Respiratory rate18 /minAyaka Joyner Other [employer] Other 10-16-2022 12:55-7495EpH9% (BldA) [Mass fraction]99 % Ayaka Joyner Other [employer] Other 12-03-2021 19:10-0500Body nmgtgu771.18 cmPamela Sheeba Other [employer] Other 12-03-2021 19:10-0500Body mass index (BMI) [Ratio] 21.92 kg/c3Qjylcp Sheeba Other [employer] Other 12-03-2021 19:10-0500Body pevurqogxkv29.7 [degF]Manuela Sheeba Other [employer] Other 12-03-2021 19:10-0500Body dgmunk62.5 kgPamela Sheeba Other [employer] Other 12-03-2021 19:10-0500Respiratory rate18 /minPacalia Sheeba Other [employer] Other 12-03-2021 19:10-0902DxK1% (BldA) [Mass fraction]99 % Manuela Sheeba Other [employer] Other 10-17-2021 12:25-0400Body .18 Isaka Sheeba Other [employer] Other 10-17-2021 12:25-0400Body mass index (BMI) [Ratio] 21.92 kg/x3Haerje Sheeba Other [employer] Other 10-17-2021 12:25-0400Body qgdrbarwtdh43.8 [degF]Manuela Sheeba Other [employer] Other 10-17-2021 12:25-0400Body .5 kgManuela Aly Other [employer] Other 10-17-2021 12:25-0400Diastolic blood qgupeujd24 mm[Hg] Manuela Nolanmond Other [employer] Other 10-17-2021 12:25-0400Respiratory rate18 /minManuela Aly Other [employer] Other 10-17-2021 12:25-3477ZrX6% (BldA) [Mass fraction]99 % Manuela Nolanmond Other [employer] Other 10-17-2021 12:25-0400Systolic blood ijxkicct673 mm[Hg] Manuela Nolanmond Other [employer] Other Encounters Encounter DateEncounter TypeCare ProviderFacilityStart: 08-17-2025 End: 42-26-8568Ptoyfefdps and management of inpatientSIRINA GODWINKettering Health [facility] HospitalStart: 08-09-2025 End: 81-83-5773trhccbvseaCSXFCULGP M [facility] HospitalStart: 08-04-2025 End: 42-56-2429Sjuchtf encounter procedureMet[facility] Provider 3PRangely [facility] Hospitalluc[facility] On [facility] CenterComment on above:Chronic sialoadenitis (Primary Dx)Start: 08-04-2025 End: 29-61-2220mojyrvplziYHUSMJMDE M [facility] HospitalStart: 07-29-2025 End: 86-42-4741Aqowfx outpatient visit 25 minutesSarah Godwin MD Work Phone: [facility] ENTComment on above: Chronic sialoadenitis (Primary Dx); Hoarseness; Vasomotor rhinitisStart: 07-29-2025 End: 99-92-4529nwpedbptiaOREDZRQCF M COLEChildren's Hospital of Columbusedo HospitalStart: 07-21-2025 End: 87-92-3359jeojmickbhSYDVA SALEHIFacility:[facility] HospitalStart: 58-57-1785Wro-patient / Non-visitLinjosiane Tolbert MD-[facility] Work Phone: Start: 07-13-2025 End: 51-37-4673sirmqzprwxCtybcr E Braun MD Work Phone: [facility] Work Phone: Start: 07-13-2025 End: 98-31-5596Knybmpz encounter procedureAmmon Osborne MD-[facility] Work Phone: Start: 07-11-2025 End: 97-14-9295Xgfnkzspsd and management of inpatientCOLUMBIA UNIVERSITY IRVING MEDICAL CENTERL E THALIAMemorial Health [facility] HospitalStart: 07-07-2025 End: 57-12-0873xxyzthjrvdDTXEXEA POCATELLOFacility:[facility] Start: 07-06-2025 End: 01-15-7588vykbvtqedrNaa Pat Phone Call Provider [address] [place] [address] - [facility] AdmitStart: 07-06-2025 End: 53-57-5106ubtoqbelrcLQBCIB E BRAUNSt. Elizabeth Hospital HospitalStart: 07-05-2025 End: 24-93-2544Htnkwq outpatient new 30 minutesAugustina Null [employer] Work Phone: [facility] SurgeryComment on above: LLQ pain (Primary Dx); Rectal bleedingStart: 07-05-2025 End: 76-06-3225xhwpctzbkuAXONSRYBlanche [facility] Start: 07-04-2025 End: 87-58-9022bgiygfmreaPMPHQ SALEHIFacility:[facility] Hospitaltart: 01-81-2535Rux-patient / Non-visitNeelima Ceballos MD-[facility] Work Phone: Start: 06-16-2025 End: 16-72-3607gspaxvjgoiWfzwok E Braun MD Work Phone: [facility] Work Phone: Start: 06-16-2025 End: 08-73-5516Euqzatk encounter procedureAmmon Osborne MDJoint [facility] District Memorial Hospital Work Phone: Start: 61-62-8024Xyc-patient / Non-visitCatherine Michael [facility] Work Phone: Start: 09-98-9941Occ-patient / Non-visitRafik Juan GARZASkagit [facility] Work Phone: Start: 86-23-2764Wde-patient / Non-visitCatherine Michael [facility] Work Phone: Start: 97-91-4539Pyb-patient / Non-visitRafijose manuel Martinez MDSkagit [facility] Work Phone: Start: 08-59-0070Mxb-patient / Non-visitRafijose manuel Martinez MDSkagit [facility] Work Phone: Start: 70-91-2481Wxv-patient / Non-visitRafijose manuel Martinez MDSkag[facility] Work Phone: Start: 06-06-2025 End: 10-11-9447eiemroibxfFuyy M VintonFacility:[facility] Start: 41-76-1685Mgk-patient / Non-visitAmmon Osborne MDSkagit [facility] Work Phone: Start: 06-03-2025 End: 08-42-3138bfyaxrlvdhXeejvg E Braun MD Work Phone: [facility] Work Phone: Start: 06-03-2025 End: 28-45-5731Ollswnv encounter Rickie Osborne MDJoint [facility] Work Phone: Start: 06-02-2025 End: 51-07-6720Evovdp nixonLizlarisa Warren DO Work Phone: [facility]monologyStart: 06-02-2025 End: 32-72-1080Hjnghl Zen Warren DO Work Phone: [facility] PulmonologyStart: 06-02-2025 End: 22-12-1464fkpbpfhyjvEBVGJA Jose Manuel WARRENNot AvailableStart: 06-02-2025 End: 99-62-5128Bqdduu outpatient visit 15 minutesDania Warren DO Work Phone: [facility] PulmonologyComment on above: Pulmonary nodule (Primary Dx)Start: 05-04-2025 End: 27-72-3263Zeqcbqu encounter procedureMicbatsheva Saavedra MD Work Phone: OrthopaedicsComment on above:Primary osteoarthritis of right knee (Primary Dx)Start: 00-72-0973Eqc-patient / Non-visitOutside Provider -[facility] Work Phone: Start: 05-04-2025 End: 96-00-2086ytbhigvowyOERYMUY BAYERFacility:[facility] HospitalStart: 04-25-2025 End: 25-14-8886uavmrmjtynUMWCSG K STRACKLicking Memorial Hospitalmarleny [place] HospitalStart: 03-31-2025 End: 63-42-4326gaaywtovkyCKPTBPX M [facility] HospitalStart: 03-31-2025 End: 06-16-7625Hszrlyxloj hospital visit by Benedict Lantigua PTAMTHZ Physical TherapyComment on above:ArrivedStart: 03-28-2025 End: 18-00-6058tnxgbbsukuSAKFZAW M [facility] HospitalStart: 03-28-2025 End: 62-97-8220Blswkthgoy hospital visit by Kassi PereraMTHZ Physical TherapyComment on above:ArrivedStart: 03-21-2025 End: 29-53-4119vifjppuvibVXECFGIBlanche Sousa HospitalStart: 03-21-2025 End: 56-97-6366Njjlczucto hospital visit by Kassi PereraOKHZ Physical TherapyComment on above:ArrivedStart: 03-16-2025 End: 89-61-6098wryducamyuXXHZLYTBlanche Sousa HospitalStart: 03-16-2025 End: 74-57-3367Qpucjgsrtr hospital visit by Kassi GuardadoWood County HospitalHZ Physical TherapyComment on above:ArrivedStart: 03-14-2025 End: 83-52-8957ayyslfswwdKCUUXTHBlanche Sousa HospitalStart: 03-14-2025 End: 20-09-4186Klzcexkxtb hospital visit by Kassi PereraOKHZ Physical TherapyComment on above:ArrivedStart: 03-11-2025 End: 88-78-9953pgorrsnwhbYRTYUVJBlanche Sousa HospitalStart: 03-11-2025 End: 51-06-4250Hrynilcliq hospital visit by physicianGiovanna Wu [facility] HOSPITALMTHZ Physical TherapyComment on above:ArrivedStart: 03-09-2025 End: 79-25-6371axvfqfrsrsKVXYEPGBlanche Sousa HospitalStart: 03-09-2025 End: 46-69-9114Xvcfrkxwqu hospital visit by Gladys Wu PTAMTHZ Physical TherapyComment on above:ArrivedStart: 03-08-2025 End: 65-99-5374Brjdieq encounter procedureAugustina Vargas MD Work Phone: GynecologyComment on above:High-tone pelvic floor dysfunction (Primary Dx); Trigger point of abdomen; Myalgia, other siteStart: 03-08-2025 End: 05-61-8949wjsisvqpikYFOWQWF STRASBURGFacility:[facility] Start: 03-02-2025 End: 49-90-3971hsoxumwfyjPLCPLXXBlanche Sousa HospitalStart: 03-02-2025 End: 17-55-9364Hrkgpnmedl hospital visit by Rosario العراقي PTAMTHZ Physical TherapyComment on above:ArrivedStart: 03-01-2025 End: 66-45-2126srywltghgrEMBAVLROlympic Memorial Hospitaltart: 03-01-2025 End: 09-06-4848Bcayagmyjk hospital visit by Rosario العراقي PTAMTHZ Physical TherapyComment on above:ArrivedStart: 02-25-2025 End: 66-54-5432scmdvdfnugYBOEQOOAstria Toppenish Hospital HospitalStart: 02-25-2025 End: 36-75-0124Zgusicmcrs hospital visit by Maddie Garner PTAMTHZ Physical TherapyComment on above:ArrivedStart: 02-21-2025 End: 08-03-0264sasoqmjwphNVDZMIFOlympic Memorial Hospitaltart: 02-21-2025 End: 68-17-9858Cxsfvisefu hospital visit by Eli Loya PTAMTHZ Physical TherapyComment on above:ArrivedStart: 02-17-2025 End: 59-27-2040mrjnsqviseALGADTFAstria Toppenish Hospital HospitalStart: 02-17-2025 End: 47-18-0381Wtoouplasz hospital visit by Antonieta Singh PTMTHZ Physical TherapyComment on above:ArrivedStart: 02-14-2025 End: 59-02-1400Tlwnzpdno encounterSachi Martinez APRN.CNP Work Phone: RheumatologyStart: 02-10-2025 End: 01-75-1129Uvdskzmqy encounterAugustina Vargas MD Work Phone: GynecologyComment on above:Insurance Authorization Start: 02-08-2025 End: 06-30-9365Hhcdqe outpatient visit 40 minutesGi Siddiqi MD Work Phone: RheumatologyComment on above:Osteoporosis, post- menopausal (Primary Dx); Coronary artery disease involving k[place] de[place] coronary artery of k[place] de[place] heart without angina pectoris; Family history of cardiovascular disease; History of fracture of pelvis; Family history of osteoporosis in mother; Early menopause occurring in patient age younger than 45 years; Vitamin D deficiency; Encounter to discuss test results; Encounter for medication review and counseling; Counseling on health promotion and disease preventionStart: 02-08-2025 End: 33-81-8443bsjszowzqqYFKBSWXSerafin Delgadillocentral [place] [facility] Start: 02-07-2025 End: 61-22-6346jvtcbogxqpWZSUVSFEureka [facility] Services / [facility] HospitalStart: 02-07-2025 End: 15-54-1126Yvdpuzarhu hospital visit by Eli ESTRADA Physical TherapyComment on above:ArrivedStart: 02-07-2025 End: 31-89-1084dpdjgdjutvNTCQUHKSerafin Delgadillocility:[facility] Start: 02-02-2025 End: 52-34-1582Mipdeej encounter procedureRoxy Medina RT(R)Radiology Comment on above:Primary osteoarthritis of right knee; Derangement of unsp meniscus due to old tear/inj, right kneeStart: 02-02-2025 End: 08-53-7261njrctjiwvyFtjvao M [place] RT(R)RadiologyComment on above:Radio Gen RMPStart: 01-31-2025 End: 71-54-9977ynyqxuwutcNGUOUZQEureka Community Health Services / [facility] HospitalStart: 01-31-2025 End: 31-03-1875Ztzrtnobgi hospital visit by Eli ESTRADA Physical TherapyComment on above:ArrivedStart: 01-24-2025 End: 88-55-8231diinrwqcrlTEVJUEREureka Community Health Services / [facility] HospitalStart: 01-24-2025 End: 93-80-2289Plalsgqlwq hospital visit by Eli ESTRADA Physical TherapyComment on above:ArrivedStart: 01-17-2025 End: 55-80-1255aqewifhawlYCMEQAFEureka Community Health Services / [facility] HospitalStart: 01-17-2025 End: 81-43-1626Brhgvguyeo hospital visit by Eli ESTRADA Physical TherapyComment on above:ArrivedStart: 01-12-2025 End: 46-85-9270nlpcmejtpiKTEWPLEEureka Community Health Services / [facility] HospitalStart: 01-12-2025 End: 90-37-6799Fpgzyzomqv hospital visit by Eli Loya PTAMTHZ Physical TherapyComment on above:ArrivedStart: 01-03-2025 End: 38-23-4212swnrbgnaevFBODLJYBlanche VARGASSouthern [facility] Medical Centerbianca [facility] HospitalStart: 01-03-2025 End: 34-31-6410Cfrwkbbhxt hospital visit by Eli Loya PTAOKMARIAH Physical TherapyComment on above:ArrivedStart: 12-20-2024 End: 97-22-4968cbrzykbczhQHEBNPJ M [facility] HospitalStart: 12-20-2024 End: 63-09-7341Bwphohaceu hospital visit by physician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 PTAOKMARIAH Physical TherapyComment on above:ArrivedStart: 12-13-2024 End: 05-37-3303tcdoejieucKAUTURY [facility] HospitalStart: 12-13-2024 End: 55-41-6260Wtiqwybzjn hospital visit by physician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 PTAOKMARIAH Physical TherapyComment on above:ArrivedStart: 12-08-2024 End: 68-85-0893djkdxwodcbORCRGEA STRASBURGFacility:[facility] Start: 12-08-2024 End: 98-73-1459Ecayihi encounter procedureAugustina Vargas MD Work Phone: GynecologyComment on above:High-tone pelvic floor dysfunction (Primary Dx); Trigger point of abdomen; Myalgia, other site; Other osteoporosis without current pathological fractureStart: 12-06-2024 End: 26-65-8433Zcwyji Kari LIN Work Phone: noms BCP OBStart: 12-06-2024 End: 53-37-0458Adjzau flowsFatuma LIN Work Phone: NOMS BCP OBStart: 12-06-2024 End: 86-13-9113Qlomzcicp Result EncounterKeri LIN Work Phone: noms External Department UnsolicitedStart: 12-06-2024 End: 71-40-6005lmrpbyvpksXWTGFUF M [facility] HospitalStart: 12-06-2024 End: 76-88-3934Tgcpnourcw hospital visit by physicianRosemary ESTRADA Physical TherapyComment on above:ArrivedStart: 12-06-2024 End: 08-37-9975Kfeibxo encounter procedureAmy Efrem LIN Work Phone: [facility] Work Phone: Start: 12-06-2024 End: 22-54-5545Awirrufv preventive med est patient 65yrs& olderAmy Efrem LIN Work Phone: noms BCP OBComment on above:Well woman exam with routine gynecological exam; Breast cancer screening by mammogram; Postmenopausal stateStart: 12-06-2024 End: 13-14-5036uqgadtbfwtSGZ RAMEYNot AvailableStart: 11-29-2024 End: 30-24-1564sgybfagrrvLURAAQH [facility] HospitalStart: 11-29-2024 End: 58-01-5515Ansknljvad hospital visit by physicianRosemary ESTRADA Physical TherapyComment on above:ArrivedStart: 11-22-2024 End: 30-70-1258lmpjoquvdfDCEKXEM [facility]bian[facility] HospitalStart: 11-22-2024 End: 18-85-3998Bpcdradmqs hospital visit by physicianRosemary ESTRADA Physical TherapyComment on above:ArrivedStart: 11-17-2024 End: 08-99-2374H-mail encounter from caregiverJagruti Salazar PA-C Work Phone: [facility] CLINICStart: 11-17-2024 End: 94-57-3369Vattrl-up encounterJagruti Salazar PA-C Work Phone: RADVQ ACTIONABLE FINDINGS VIRTUAL CLINICComment on above:actionable finding follow upStart: 11-16-2024 End: 35-60-9638zvbncpnzjuAKHEHXE M [facility]ARE FACILITYTamikoMedStar Harbor Hospitalbianca [facility] HospitalStart: 11-16-2024 End: 84-38-2843Xklwhzadrx hospital visit by physicianYelena Steve PTMTHZ Physical TherapyComment on above:ArrivedStart: 11-01-2024 End: 09-74-7384Htnvmcutq encounterAugustina Vargas MD Work Phone: [facility] HospitalComment on above:Orders (PFPT) Start: 09-30-2024 End: 71-59-8555Bhblvgywx Result EncounterAmy Efrem LIN Work Phone: NOGD External Department UnsolicitedStart: 09-30-2024 End: 63-85-1411Wvwpbotjr Result EncounterAmy Efrem LIN Work Phone: noms External Department UnsolicitedStart: 09-22-2024 ambulatoryRADHASTAS Garcia [facility] HospitalStart: 09-21-2024 End: 31-14-4781Qzoxxevhk encounterAugustina Vargas MD Work Phone: [facility] HospitalComment on above:Other; Patient UpdateStart: 21-72-6704knohtffdefZKSDNZHJacqui Garcia [facility] HospitalStart: 09-01-2024 End: 22-73-8468lrrhdmlvbpYJHMKVG [facility] HospitalStart: 09-01-2024 End: 79-17-8017Zbdcdfjdiu hospital visit by physician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 PTAMTHZ Physical TherapyComment on above:ArrivedStart: 08-23-2024 End: 06-74-5263Lrrzoxxzo encounterAugustina Vargas MD Work Phone: [facility] HospitalComment on above:Medication ProblemStart: 08-23-2024 End: 85-57-3455bbyrauqtxiMYKCGDT Von [facility] Hospitalbianca [facility] HospitalStart: 08-23-2024 End: 67-61-7864Milxerdadr hospital visit by physician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 PTAMTHZ Physical TherapyComment on above:ArrivedStart: 08-20-2024 End: 38-87-0695KjawvnAqikswe [place] MD Work Phone: GynecologyComment on above:Med Change RequestStart: 08-17-2024 End: 86-95-4414Wufiyz pelvic examinationAugustina Vargas MD Work Phone: GynecologyComment on above:High-tone pelvic floor dysfunctionStart: 08-17-2024 End: 94-55-9818Yuedhefovjim consultation with patientAugustina Vargas MD Work Phone: GynecologyStart: 08-17-2024 End: 77-55-7491Ichxytwsv encounterAugustina Vargas MD Work Phone: GynecologyComment on above:AppointmentStart: 08-16-2024 End: 39-99-3185zszdlgtegzBNXGFNQ M STRASBURGMercy [facility] HospitalStart: 08-16-2024 End: 26-59-9332Rbvykknbud hospital visit by physician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 PTAMTHZ Physical TherapyComment on above:ArrivedStart: 08-09-2024 End: 65-14-1520ksicroeqfdQEBFLDDJacqui Gradyfin HospitalStart: 08-02-2024 End: 50-27-5034nwuqxtlguuLPTJDHCJacqui Sousa HospitalStart: 08-02-2024 End: 57-61-9627Prtgxyepmj hospital visit by physician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 PTAMTHZ Physical TherapyComment on above:ArrivedStart: 07-26-2024 End: 15-29-0578Nqmnca outpatient visit 10 Aziza Godwin MD Work Phone: ProWilson [facility] Hospitalca [facility] - ENTComment on above: Chronic sialoadenitis (Primary Dx)Start: 07-12-2024 End: 89-45-0650urlvjsijtkBDRGLGASTAS Sousa HospitalStart: 07-07-2024 End: 36-43-9593lzjtkgifunJBBEYNL Von Sousa HospitalStart: 07-06-2024 End: 80-73-1163Mjweldh encounter procedureAugustina Vargas MD Work Phone: GynecologyComment on above:High-tone pelvic floor dysfunction (Primary Dx); Nutcracker phenomenon of renal vein; Vaginal dryness; Pelvic congestion; Acute constipation; Postmenopausal atrophic vaginitis; Urethral caruncle; MyalgiaStart: 07-02-2024 End: 35-41-8571GgmqpcQskuTracy Mtz CardiologyComment on above:Med RefillStart: 06-28-2024 End: 89-21-1982trzmlxfoysIVGBHCJSwedish Medical Center [facility] HospitalStart: 06-21-2024 End: 13-22-3745ycsgbebudiHWDKHAXAstria Toppenish Hospital HospitalStart: 06-21-2024 End: 17-52-3987Duipvsxrsi hospital visit by Eli Loya PTAMTHZ Physical TherapyComment on above:ArrivedStart: 06-15-2024 End: 81-48-4751igihuwpupoHETKHIZAstria Toppenish Hospital HospitalStart: 06-15-2024 End: 99-34-0484Owbcpxhjcs hospital visit by physicianYelena Steve PTMTHZ Physical TherapyComment on above:ArrivedStart: 06-06-2024 End: 70-57-1563Vhwqoucyk encounterAugustina Vargas MD Work Phone: GynecologyComment on above:botox authStart: 06-04-2024 End: 98-42-0082Rfvzmpomp Alec Vargas MD Work Phone: [facility] HospitalComment on above:Patient Question Start: 06-03-2024 End: 81-69-1431Lkvbsl Zen Warren DO Work Phone: noMS PULMStart: 06-03-2024 End: 07-82-4207Kvceyw Zen Warren DO Work Phone: NOMS PULMStart: 06-03-2024 End: 41-63-0717Uebbno outpatient visit 25 minutesDania Warren DO Work Phone: noms PULMComment on above:Pulmonary nodule (Primary Dx)Start: 05-28-2024 End: 72-32-1610Shjzvilwb encounterAugustina Vargas MD Work Phone: GynecologyComment on above:Medication ProblemStart: 05-27-2024 End: 80-58-3099hpjxprleqgKihatjs Eltemamy MD Work Phone: UrologyStart: 05-27-2024 End: 54-38-3229Oaqoeyo encounter procedureMoashli Chowdary MD Work Phone: UrologyComment on above:Flank pain (Primary Dx)High- tone pelvic floor dysfunction (Primary Dx); Nutcracker phenomenon of renal vein; Chronic pelvic pain in femaleStart: 37-92-0645gtzdyljbqhEBGSZB E BRAUN [facility]start: 04-26-2024 End: 30-02-5933Acopwzqbfh hospital visit by physicianCt [facility] RadiologyComment on above:Other disorders of retroperitoneum [K68.9]Start: 01-63-0085Jqwqzdyso encounterDestiny Borrero MD Work Phone: UrologyStart: 06-30-6730QN Patient MsgCcf Provider GynecologyComment on above:Appointment for Pelvic Pain, pelvic floor disorder Start: 04-07-2024 End: 46-48-9205Tjgvqll encounter procedureChip Chowdary MD Work Phone: UrologyComment on above:Encounter for aftercare following kidney transplant (Primary Dx); Malnutrition of moderate degree (HCC)Start: 02-19-2024 End: 13-66-0432Lvhzcma encounter procedureChip Chowdary MD Work Phone: UrologyComment on above:Nutcracker phenomenon of renal vein (Primary Dx)Start: 26-54-7058anujbpkmyrVcwydfb Eltemamy MD Work Phone: UrologyStart: 02-19-2024 End: 85-43-0781Ebwttbkpb to [place] [address] Work Phone: Pre AnesthesiaStart: 02-19-2024 End: 70-12-7934Dpwwkrqnjl consultationFairfax Hospital Main 9 Work Phone: Pre AnesthesiaComment on above:Preop examination (Primary Dx); 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 - ENTComment on above: Chronic sialoadenitis (Primary Dx)Start: 77-93-6050Qoydwcvfa encounterRian Fox MD Work Phone: Vascular Surg DeptComment on above:Surgery Cancelled Start: 61-98-6538Agnwjxyqt encounterRina Fox MD Work Phone: Vascular Surg DeptComment on above:Patient Update Start: 00-20-9641oyevzpkezrJktmlxqOlivier Chowdary MD Work Phone: UrologyStart: 12-25-2023 End: 32-01-6553Bbhqyri encounter Tramaine Chowdary MD Work Phone: UrologyComment on above:Nutcracker phenomenon of renal vein (Primary Dx)Start: 86-47-6771srtynqzclbLolologOlivier Chowdary MD Work Phone: UrologyStart: 12-22-2023 End: 29-33-6091Lpmepqo encounter Marcel Deleon MD Work Phone: UrologyComment on above:Nutcracker phenomenon of renal veinStart: 95-72-8903uubbdspgfjPvkrwCorine Deleon MD Work Phone: UrologyStart: 56-72-9723Ianlti Marvin Fox MD Work Phone: Vascular Surg DeptComment on above:Nutcracker phenomenon of renal vein (Primary Dx); Preop testingStart: 34-22-0029Nnkydsl encounter statusRina Fox MD Work Phone: [facility]Start: 12-18-2023 End: 41-49-5006Jrpmar outpatient new 60 minutesRina Fox MD Work Phone: Vascular Surg DeptComment on above:Nutcracker phenomenon of renal vein (Primary Dx); Family history of aneurysm; Aortic ectasia, abdominal (HCC)Start: 22-89-6194Nkblbp Marivn Fox MD Work Phone: Vascular Surg DeptComment on above:Nutcracker phenomenon of renal vein (Primary Dx)Start: 74-43-5479Gkwehz Marvin Fox MD Work Phone: Vascular Surg DeptComment on above:Nutcracker phenomenon of renal vein (Primary Dx)Start: 12-79-9237Xiaixfyvn encounterNo Pcp APRNVascular Surg DeptComment on above:Patient QuestionStart: 12-02-2023 End: 39-18-1425Zmgojja encounter procedureMojackie Way PA-C Work Phone: [facility] - ENTComment on above: Submandibular gland swelling (Primary Dx); Chronic sialoadenitisStart: 59-43-2964Koupobjoc encounterSirina Godwin MD Work Phone: [facility] - ENTStart: 11-12-2023 End: 43-05-7711Ddejdea encounter procedureMetro Pat Provider [address] [place] [address] Pre-Admission [facility] CenterComment on above:Preop testing (Primary Dx); Hearing disorder retrocochlearStart: 11-12-2023 End: 81-46-3255Yumddhx encounter statusMetro [address] [place] [address] SystemStart: 10-08-2023 End: 93-84-9137sbreazarfsPusiil Braun Other [email or web address] Other Start: 95-76-2158Npuejyeyf encounterMarmindi Guerra Medical ClinicStart: 09-30-2023 End: 14-90-2875Moihrtz encounter procedureSirina Godwin MD Work Phone: [facility] - ENTComment on above: Submandibular gland swelling (Primary Dx); Chronic sialoadenitis; Sensorineural hearing loss (SNHL), bilateralStart: 09-29-2023 End: 89-88-1149Eqlwgfvzp Result EncounterAmy Efrem DELIA Work Phone: noms External Department UnsolicitedStart: 09-29-2023 End: 42-47-5657Kvetipgzb Result EncounterAmy [place] PA Work Phone: noms External Department UnsolicitedStart: 09-01-2023 End: 79-53-7018kmtwedezddZmpxeo Braun Other [employer] Other Start: 54-03-9022Dhratj outpatient visit 15 minutes Ammon Bartholomew [facility] ClinicStart: 12-22-5337Mpczlaabe encounterNo Pcp APRNAppointment CenterComment on above:AppointmentStart: 07-29-2023 End: 08-17-5905dmdkmodrneHsecov Braun Other [email or web address] Other Start: 93-79-8369Fygegl outpatient visit 15 minutes Ammon Guerra [facility] ClinicStart: 07-02-2023 End: 61-05-5580eftwijdjvjLrxysm Braun Other [email or web address] Other Start: 51-27-1377Qmtpuo outpatient visit 15 minutes Ammon Guerra [facility] ClinicStart: 06-10-2023 End: 80-06-4628oqxpwfzljlApebtb Braun Other [email or web address] Other Start: 06-05-5971Mljkdfmdo encounterMarmindi [facility]erra Medical ClinicStart: 06-06-2023 End: 85-06-1672lngovblihbAvxotu Osborne Other [email or web address] Other Start: 90-84-2720Qzlewq outpatient visit 15 minutes Ammon [facility] ClinicStart: 06-05-2023 End: 23-99-4244ewjjeolxagYescbz Osborne Other [email or web address] Other Start: 38-28-2283Etbtmaphz encounterMarcieloina Guerra [facility] ClinicStart: 05-30-2023 End: 42-14-8290xdkrssnkyhWylzxd Osborne Other [email or web address] Other Start: 93-16-3895Nekhziaes encounterMarcieloina Bartholomew [facility]deStart: 05-29-2023 End: 94-44-9870qpwddtecruXtdbg Keller Other [employer] Other Start: 34-70-9401Txkeep outpatient visit 25 minutes Ayaka Justo [facility]deStart: 05-09-2023 End: 59-89-0868pfywnjqtwsElpgyq Dylon Other [email or web address] Other Start: 63-57-3216Mmcfzmmhp encounterMarcieloina Guerra Medical ClinicStart: 02-22-2023 End: 97-72-7260wbzrctbpyzWTTKW PARKERFacility:V5Rxppj: 02-18-2023 End: 66-54-3911uamobgqjdjJM BOSSMAN CEVALLOS .Facility:C0Mfhtz: 02-11-2023 End: 23-27-8703jxtkbyyeumUqxll Keller Other [email or web address] Other Start: 98-04-5785Ahziwa outpatient visit 15 minutes Ayaka ArG [facility] ClydeStart: 59-18-6820Iumhpjbib encounterMarmindi Bartholomew [facility] ClydeStart: 11-25-2022 End: 57-09-2895chfpdoxaftNM BOSSMAN CEVALLOS .Facility:P2Ytipw: 11-22-2022 End: 18-97-9318arzwifyjavFtnco Keller Other [email or web address] Other Start: 88-77-8606Rhfugp outpatient visit 25 minutes Ayaka Justo [facility]deStart: 11-02-2022 End: 29-57-3295egqcgxhkrvPilgcj Braun Other [email or web address] Other Start: 04-84-3205Lahfyxpep encounterAmmon OsborneLicking [facility] Hospital ClinicStart: 11-01-2022 End: 43-59-2791zglzkhzpbnSI NONE LISTED REQUESTFacility:T7Ewdck: 10-31-2022 End: 52-97-2638dhbhpjxxgkAfdhxz Braun Other [email or web address] Other Start: 63-61-3224Nurhjo outpatient visit 15 minutes Ammon OsborneLicking [facility] ClinicStart: 74-94-9232Zzccgutfinwxr examination normalMarjuana Osborne Other [email or web address] Other Start: 40-77-5209Gen-procedure evaluation checkRicardaa Osborne Other [email or web address] Other Start: 08-13-2022 End: 32-00-4072hvjmqhxmqxUgayr WestFacility:P8Qvwyw: 07-28-2022 End: 75-93-0614msjstediqzKmzah Keller Other [email or web address] Other Start: 66-97-2057Zygrnn outpatient visit 25 minutes Ayaka ArDIGN[facility] Care ClydeStart: 09-14-2021 End: 15-23-6717diospeqdseFwypbh Dymond Other [place] [employer] Other Start: 10-24-2768Dkntvv outpatient visit 15 minutes Manuela AlyFPG [facility] ClydeStart: 31-05-0407Nepucj outpatient visit 15 minutesManuela AlyFPG [facility] Care ClydeStart: 05-21-2018 End: 87-87-5842Lxchcuk encounterGregdarrick MonroeFacility:FTMCStart: 05-19-2018 End: 29-96-4818Dbvoael encounterGregdarrick UnderwoodSigifredo MonroeFacility:[facility] Procedures DateProcedureProcedure DetailPerforming ClinicianStart: 73-13-0113Zunpgzig Identification Nancy Osborne MD Work Phone: Start: 97-75-5126Mxdrjglpxnarrg aspir&/inj major jt/bursa w/o usOrquidea Saavedra MD Work Phone: Start: 11-94-5694GQD,APTIMA HPV,AGE GDSpencer LIN Work Phone: Start: 66-00-9846RM TOMOSYNTHESIS SCREENING Liana LIN Work Phone: Start: 81-72-9288MarbdzryjxwXwq Ramey PA Work Phone: Start: 12-67-2507Kjnln dip stick/tablet rgnt auto w/o microscopyBulk Order ProviderStart: 57-14-7213Xcumhezkrc [Mass/volume] in Serum or PlasmaCcf ProviderStart: 03-02-2024 End: 87-39-6147Xmbyydj of renal transplantS/P renal autotransplantMohamed Epi GARZA Work Phone: Start: 51-25-5884Flbbc dip stick/tablet rgnt auto w/o microscopyBulk Order ProviderStart: 27-11-6405Njtzz dip stick/tablet rgnt auto w/o microscopyBulk Order ProviderStart: 30-86-5952Jprvq dip stick/tablet rgnt auto w/o microscopyBulk Order ProviderStart: 38-26-1101Ckezgezzvr bloodSteptoni Godwin MD Work Phone: Start: 51-46-2022Cpq routine ecg w/least 12 lds trcg only w/o i&rMarkarin Rodriguez MD Work Phone: Start: 50-17-4796AT TOMOSYNTHESIS SCREENING BIKeri LIN Work Phone: Start: 17-02-0671NW DEXA AXIAL SKELETONKeri Efrem LIN Work Phone: Start: 54-92-9614EbvdafhbpfsHduqms Strack DO Work Phone: start: 87-70-4030Nxaixxp examination of patientMarcia Osborne Other Start: 86-95-8965ZjrhxvnvtrmFogclxedb Cole MD Work Phone: History of renal transplantEncounter for aftercare following kidney transplantChip Chowdary MD Work Phone: History of renal transplantS/P renal autotransplant Ammon Osborne MD Work Phone: Screening for malignant neoplasm of breastMarcia Dylon Other Viral screeningMarcia Dylon Other Plan of Treatment DateCare ActivityDetailAuthorStart: 39-88-7392Fyizivadsyy Syncytial Virus (RSV) or age 60 yrs+ (1 - 1-dose 75+ series)Respiratory Syncytial Virus (RSV) or age 60 yrs+ (1 - 1-dose 75+ series)[facility]Start: 24-35-6613Yrgzppfqe for malignant neoplasm of colonNOMS HealthcareStart: 60-01-5495Phreysav ScreeningDiabetes ScreeningCleUC Healthtart: 02-18-2027 Diabetes ScreeningDiabetes ScreeningCleUC Healthtart: 04-48-3579Uvkwzpxbk for osteoporosisBone Density ScreeningCleUC Healthtart: 00-79-0529Jstea BMI ScreeningAdult BMI ScreeningProMemorial Health [facility] SystemStart: 32-25-5378Wrufvpd ScreeningTobacco ScreeningCincinnati Shriners Hospital SystemStart: 21-51-0028Wtnhu BMI ScreeningAdult BMI ScreeningCincinnati Shriners Hospital SystemStart: 56-70-0886Vrcruqg ScreeningTobacco ScreeningProMemorial Health [facility] SystemStart: 60-64-3649Yzxyugn ScreeningTobacco ScreeningCincinnati Shriners Hospital SystemStart: 06-77-0501Xthkq BMI ScreeningAdult BMI ScreeningCincinnati Shriners Hospital SystemStart: 94-27-5867Yntkwrg ScreeningTobacco ScreeningCincinnati Shriners Hospital SystemStart: 05-76-1912Evnwaoxi ScreeningDiabetes ScreeningSelect Medical Specialty Hospital - Columbustart: 06-01-2026 End: 83-27-9597Hfhfbwa encounter gfdksnrly27/20/2026 8:45 AM EDT Office Visit [facility] [address] [place] [address] Dania Warren, DO [address] [place] [address] [facility] PulmonologyStart: 12-40-5192Dthokhdlb for malignant neoplasm of lungLung Cancer ScreeningSelect Medical Specialty Hospital - Columbustart: 04-12-2026 End: 29-25-4606XB Chest WO contrastCT chest wo IV contrast Imaging Routine Pulmonary nodule Expected: 04/12/2026, Expires: 09/02/2026[facility] Work Phone: comment on above:Expected: 04/12/2026, Expires: 09/02/2026Start: 12-08-2025 End: 40-44-1782Ejszuxb encounter procedureNOPACIFICA HOSPITAL OF THE VALLEY OBStart: 50-11-4914Qldgujusd for malignant neoplasm of breastMammogramBEAVER VALLEY HOSPITAL HealthcareStart: 08-17-2025 End: 53-55-2305Tljwpiykz to same day surgery ssnxoo4008/17/2025 10:25 AM EST - 08/17/2025 1:25 PM EST Surgery [facility] Surgery [address] [place] [address] Sarah Godwin MD [address] [facility] [address] [place] [address] SIALENDOSCOPY [27183 (CPT )][facility] SurgeryComment on above:SIALENDOSCOPY [26026 (CPT )]Start: 08-17-2025 End: 69-52-3532Istjgqkn submandibular submaxillary glandEXCISION GLAND SUBMANDIBULAR Chronic sialoadenitis Hoarseness Vasomotor rhinitis Submandibular gland swelling 08/17/2025 10:25 AM [facility] SURGERYStart: 08-17-2025 End: 99-63-1831ULMARANKNFLZFDJNCRUZBTGYOSYC Chronic sialoadenitis Hoarseness Vasomotor rhinitis Submandibular gland swelling 08/17/2025 10:25 AM [facility]: 24-12-1823Jyljcrgerp hospital visit by inlbqfuhk42/05/2025 10:25 AM EST Hospital Encounter [facility] Surgery [address] [place] [address] Sarah Godwin MD [address] [facility] [address] [place] [address] [facility] SurgeryStart: 08-17-2025 End: 22-56-3319Ymqenrvj px salivary glands/ductsSIALENDOSCOPY Chronic sialoadenitis Hoarseness Vasomotor rhinitis Submandibular gland swelling 08/17 10:25 AM [facility]STMER[facility] SURGERYStart: 08-09-2025 End: 23-43-7716Bzupzgn encounter procedureProMercy Health St. [facility] - ENTStart: 08-02-2025 End: 84-24-4469Vqaupuf encounter procedureRheumatologyComment on above:Follow up Xliknzwgtemk9js attempt : LVM template change -AV Follow up OsteoporosisStart: 07-29-2025 End: 13-33-6456KF Neck W contrast IVCT neck soft tissue with contrast Imaging Routine Chronic sialoadenitis Expected: 07/29/2025, Expires: 07/29/2026[facility] Work Phone: Comment on above:Expected: 07/29/2025, Expires: 07/29/2026Start: 36-11-1775Udkzf BMI ScreeningAdult BMI ScreeningProMemorial Health [facility] SystemStart: 39-60-3644Esahxja ScreeningTobacco ScreeningProMemorial Health [facility] SystemStart: 07-26-2025 End: 26-80-5491Sduhdsj encounter vegfxvjpq12/14/2025 10:15 AM EDT Office Visit [facility] [address] [facility] [place] [address] [place] [address] [place] [address] [place] [address] [facility] Start: 89-22-9753RlhmrujusSelect Medical Cleveland Clinic Rehabilitation Hospital, Beachwoodtart: 07-13-2025 End: 88-11-5474Ofjplez encounter xyomvkibc53/01/2025 8:30 AM EDT Office Visit Cardiology [address] [facility] [place] [address] Nigel Bowens MD [address] [facility]TRAMHENDERSON, [place] [id number] Coronary artery disease involving kletsel dehe wintun coronary artery of kletsel dehe wintun heart without...CardiologyComment on above:Coronary artery disease involving kletsel dehe wintun coronary artery of kletsel dehe wintun heart without...Start: 07-11-2025 End: 74-25-2070Iuxawkeaj to same day surgery vqpgar3207/11/2025 9:15 AM EDT - 07/11/2025 9:45 AM EDT Surgery [facility] - Surgery [address] [place] [id number] Orquidea Salcedo, [address] [place] [address] COLONOSCOPY DIAGNOSTIC / SCREENING [92324 (CPT )][facility] HospitalComment on above:COLONOSCOPY DIAGNOSTIC / SCREENING [09339 (CPT )]Start: 07-11-2025 End: 38-91-9351Eurlqstwyvn flx dx w/collj spec when pfrmdCOLONOSCOPY DIAGNOSTIC / SCREENING left lower quadrant pain 07/11/2025 9:15 AM EDTFREMONT SURGERYStart: 99-12-8204Jddkiifzmz hospital visit by hkduehepb71/29/2025 9:15 AM EDT Hospital Encounter [facility] [address] [place] [address] Orquidea Salcedo, [address] [place], [place] [id number] [facility]: 07-06-2025 End: 71-38-9975mdbecenyyz66/24/2025 2:30 PM EDT Support Visit [facility] Admit [address] [place] [address] [facility] AdmitStart: 07-04-2025 End: 76-21-5745Jjggube encounter ckhctektp56/22/2025 10:30 AM EDT Office Visit CARD INTERVENTION YOANNA CARMONA [address] [place] [address] Sveta Strong MD [address] [place] [address] lvm and mc appt rs from 06/07/25CARD INTERVENTION YOANNA BROWNomment on above:lvm and mc appt rs from 06/07/25Start: 06-16-2025 [facility] Work Phone: Start: 97-92-1104GIESC-19 Vaccine ( season) COVID-19 Vaccine ( season)[facility] SystemStart: 06-13-2025 Influenza vaccinationSelect Medical Specialty Hospital - Columbustart: 06-07-2025 End: 80-97-5403Szhzwmz encounter emfllfpxy95/26/2025 10:00 AM EDT Office Visit C[facility] INTER[facility]ION [facility] [address] [place] [address] Sveta Strong MD [address] [place], [place] [id number] Coronary artery disease involving kletsel dehe wintun coronary artery of kletsel dehe wintun heart without...[facility]omment on above: Coronary artery disease involving kletsel dehe wintun coronary artery of kletsel dehe wintun heart without...Start: 06-02-2025 End: 27-50-0366Eoruron encounter hymbtpmhz31/21/2025 8:45 AM EDT [facility] [address] [place] [address] Dania Warren DO [address] [place] [address] NOMTamiko PULMStart: 28-10-6420Iiusyztpn vaccinationFlu vaccine (Season Ended)Tani [facility] HospitalStart: 05-10-2025 End: 186827-yakgnmuvknxbzj D3 [Mass/volume] in Serum or PlasmaVITAMIN D 25 HYDROXY Lab Routine Vitamin D deficiency Expected: 05/10/2025, Expires: 08/09/2025[facility] Work Phone: Comment on above:Expected: 05/10/2025, Expires: 08/09/2025Start: 05-10-2025 End: 22-60-7161Xikczvrwd (Vitamin B12) [Mass/volume] in Serum or PlasmaVITAMIN B12 Lab Routine Vitamin B12 deficiency Expected: 05/10/2025, Expires: 08/09/[address] [facility] Work Phone: Comment on above:Expected: 05/10/2025, Expires: 08/09/2025Start: 05-10-2025 End: 68-40-7302Svfyqutcopvb [Moles/volume] in Serum or PlasmaHOMOCYSTEINE Lab Routine Vitamin B12 deficiency Heart disease, unspecified Expected: 05/10/2025, Expires: 08/09/2025leveland ClinicComment on above:Expected: 05/10/2025, Expires: 08/09/2025Start: 53-61-6003Wkdcabnva for malignant neoplasm of lungLung Cancer ScreeningBedford ClinicStart: 05-04-2025 End: 24-73-5973Jyksvvp encounter quxlvuyue93/23/2025 1:45 PM EDT Office Visit Orthopaedics [address] [place] [address] Orquidea Saavedra MD [address] [place] [address] 3 month f/uOrthopaedicsComment on above:3 month f/uStart: 05-04-2025 End: 04-30-4241vfwxxjwjbt83/23/2025 1:15 PM EDT Results Only [facility] [address] [place] [address] Vitamin B12 deficiency [E53.8][facility] LaboratoryComment on above:Vitamin B12 deficiency [E53.8]Start: 05-02-2025 End: 57-17-5221EL Chest WO contrastCT chest wo IV contrast Imaging Routine Pulmonary nodule Expected: 05/02/2025, Expires: 06/03/2025[facility] Work Phone: comment on above:Expected: 05/02/2025, Expires: 06/03/2025Start: 03-31-2025 End: 68-19-3731Ybqcnqx encounter ksisfyhms26/19/2025 8:30 AM EDT Appointment [facility] Physical Therapy [address] [place] [address] [phone] Al Singh PT UPOCMTHZ Physical TherapyComment on above:UPOCStart: 03-28-2025 End: 49-07-7690Vjyyvbb encounter qzhbzmapa31/16/2025 9:15 AM EDT Appointment [facility] Physical Therapy [address] [place] [address] [phone] Cedrick Perera Physical TherapyStart: 03-21-2025 End: 84-13-2457Bytmsyj encounter jgvndyboe54/09/2025 8:30 AM EDT Appointment [facility] Physical Therapy [address] [place] [address] Cedrick Perera Physical TherapyStart: 03-16-2025 End: 19-14-8112Rrzzvln encounter oguankvxj42/04/2025 9:15 AM EDT Appointment [facility] Physical Therapy [address] [place] [address] Cedrick Perera Physical TherapyStart: 03-14-2025 End: 29-60-1644Kxemwyy encounter agqcbrtuc29/02/2025 9:15 AM EDT Appointment [facility] Physical Therapy [address] [place], [place] [phone] Cedrick Perera Physical TherapyStart: 03-11-2025 End: 45-79-2885Pbwntlw encounter pohdvpepm62/30/2025 8:00 AM EDT Appointment [facility] Physical Therapy [address] [place] [address] Giovanna Wu PTAMTHZ Physical TherapyStart: 03-09-2025 End: 90-58-7165Eougxgz encounter cajvigepu63/28/2025 2:30 PM EDT Appointment [facility] Physical Therapy [address] [place] [address] Giovanna Wu PTAMTHZ Physical TherapyStart: 03-08-2025 End: 87-68-5546Kkogbir encounter etbxnpbcz83/27/2025 3:30 PM EDT Office Visit Gynecology [address] [place] [address] Augustina Vargas MD [address] [place] [address] TPIGynecologyComment on above:TPIStart: 03-02-2025 End: 55-81-7218Kydqvvd encounter jgjefyqed01/21/2025 3:15 PM EDT Appointment [facility] Physical Therapy [address] [place] [address] Garrison العراقي PTAMTHZ Physical TherapyStart: 03-01-2025 End: 16-95-6169Mntotqy encounter dunptxdqv74/20/2025 8:30 AM EDT Appointment [facility] Physical Therapy [address] [place] [address] Garrison العراقي, PTAMTHZ Physical TherapyStart: 02-25-2025 End: 01-58-2995Wiwupdw encounter ujnowzpje74/16/2025 12:15 PM EDT Appointment [facility] Physical Therapy [address] [place] [address] Giovanna Wu, [facility]HZ Physical TherapyStart: 02-21-2025 End: 12-67-2515Pasjwlt encounter yamictevz74/12/2025 10:30 AM EDT Appointment [facility] Physical Therapy [address] [place] [address] 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, [facility]Z Physical TherapyStart: 02-17-2025 End: 04-05-0575Kwbxjpf encounter rylwgfeel71/08/2025 9:45 AM EDT Appointment [facility] Physical Therapy [address] [place] [address] Al Singh, PT MEDICAREOKHZ Physical TherapyComment on above:MEDICAREStart: 37-72-9731Dknfzdw ScreeningTobacco ScreeningProMemorial Health System [facility] SystemStart: 16-57-6914Vcmsn BMI ScreeningAdult BMI ScreeningCincinnati Shriners Hospital SystemStart: 45-56-6582Zdjboqm ScreeningTobacco ScreeningCincinnati Shriners Hospital SystemStart: 02-08-2025 End: 12-21-0357Rjwpakz encounter ktunfgmtu47/29/2025 11:20 AM EDT Office Visit Rheumatology [address] [place] [address] Gi Siddiqi MD [address] [place] [address] Return for After results for review of DXA and lab results and discussing rx.RheumatologyComment on above:Return for After results for review of DXA and lab results and discussing rx.Start: 02-07-2025 End: 75-25-8886Fzjfcan encounter onvjluwzp05/28/2025 11:15 AM EDT Appointment [facility] Physical Therapy [address] [place] [address] 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 PTAMTHZ Physical TherapyStart: 02-07-2025 End: 10-35-4173xypvctxaoy55/28/2025 7:15 AM EDT Results Only [facility] [address] [place] [address] labLorain [facility] LaboratoryComment on above:labStart: 01-31-2025 End: 93-09-9838Emtslhe encounter ukrakqteg37/21/2025 9:45 AM EDT Appointment [facility] Physical Therapy [address] [place], [place] [phone] 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 PTA HAVE YELENA IN FOR 15 MINUTE UPOCMTHZ Physical TherapyComment on above: HAVE YELENA IN FOR 15 MINUTE UPOCStart: 01-24-2025 End: 26-55-4026Arxxehc encounter gmewvbfla51/14/2025 9:00 AM EDT Appointment [facility] Physical Therapy [address] [place] [address] 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 PTAMTHZ Physical TherapyStart: 01-17-2025 End: 93-29-4692Ibvlpob encounter rumgzqoyl66/07/2025 9:00 AM EDT Appointment [facility] Physical Therapy [address] [place] [address] 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 PTAMTHZ Physical TherapyStart: 99-52-2840Thcrcafio for malignant neoplasm of lungLung Cancer ScreeningBedford ClinicStart: 01-12-2025 End: 69-27-6665Pbewaei encounter cltowwlyy14/02/2025 11:15 AM EDT Appointment [facility] Physical Therapy [address] [place] [address] 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 PTAMTHZ Physical TherapyStart: 01-10-2025 End: 46-51-8353Bxvimvw encounter lxpvayljo07/31/2025 9:00 AM EDT Appointment [facility] Physical Therapy [address] [place] [address] 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 PTAMTHZ Physical TherapyStart: 01-03-2025 End: 44-26-0150Xhdpsuc encounter gawcspiox55/24/2025 9:45 AM EDT Appointment [facility] Physical Therapy [address] [place] [address] 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 PTAMTHZ Physical TherapyStart: 12-20-2024 End: 20-19-0650Yjycvjs encounter apxnqequf07/10/2025 9:45 AM EDT Appointment [facility] [address] [place] [address] 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 PTAMTHZ Physical TherapyStart: 12-13-2024 End: 25-15-6395Ttkqmqc encounter hhkcxqxdi61/03/2025 9:45 AM EST Appointment [facility] Physical Therapy [address] [place] [address] 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 PTAMTHZ Physical TherapyStart: 12-08-2024 End: 03-68-3751Ariirdz encounter udskyblgs35/26/2025 4:00 PM EST Office Visit Gynecology [address] [place] [address] Augustina Vargas MD [address] [place] [address] TPIGynecologyComment on above:TPIStart: 12-06-2024 End: 29-00-5157NQA Skeletal system Views for bone densityDEXA bone density Imaging Routine Postmenopausal state Expected: 12/06/2024 (Approximate), Expires:12/06/2025NOKS HealthcareComment on above:Expected: 12/06/2024 (Approximate), Expires: 12/06/2025Start: 12-06-2024 End: 80-93-1706CZ Breast - bilateral ScreeningBilateral screening mammogram Imaging Routine Breast cancer screening by mammogram Expected: 12/06/2024, Expires: 02/03/2026[facility] Work Phone: comment on above:Expected: 12/06/2024, Expires: 02/03/2026Start: 12-06-2024 End: 37-19-0685Ibcehyb encounter procedureMTHZ Physical TherapyComment on above: ArrivedStart: 55-07-3991Kzlvp BMI ScreeningAdult BMI ScreeningProWilson Street Hospitalca Health SystemStart: 96-67-4640Mifkubv ScreeningTobacco ScreeningProWilson Street Hospitalca [facility] Start: 11-29-2024 End: 30-00-1256Inawzal encounter jpdhyrktn06/17/2025 3:45 PM EST Appointment [facility] Physical Therapy [address] [place] [address] 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 PTAMTHZ Physical TherapyStart: 11-22-2024 End: 87-93-0445Lrokatf encounter yugoolbom00/10/2025 12:00 PM EST Appointment [facility] Physical Therapy [address] [place] [phone] 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 PTAMTHZ Physical TherapyStart: 83-96-9864Eszcd BMI ScreeningAdult BMI ScreeningCincinnati Shriners Hospital SystemStart: 69-90-7514Bglhxyj ScreeningTobacco ScreeningFirstHealth Moore Regional Hospital - Richmondtart: 90-80-5264Scoxzzy Directive Discussion Advance Directive DiscussionSelect Medical Specialty Hospital - Columbustart: 10-05-2024 End: 01-37-1761Fhksdbx encounter gdzvaackd73/24/2024 2:30 PM EST Office Visit Gynecology [address] [place] [address] Augustina Vargas MD [address] [place] [address] put her on my schedule oct 05, 2024 at 2:30pm for botoxGynecology Comment on above:put her on my schedule oct 05, 2024 at 2:30pm for botoxStart: 07-28-9688Fcugp BMI ScreeningAdult BMI ScreeningCincinnati Shriners Hospital SystemStart: 25-69-2936Ytvinuy ScreeningTobacco ScreeningLicking Memorial Hospitalca [facility] Start: 49-21-3853Rcnztaafu for malignant neoplasm of breastMammogramNOKS HealthcareStart: 09-15-2024 End: 89-11-5193Zqqdzfz encounter bxtkfodhk31/04/2024 3:30 PM EST Appointment [facility] Physical Therapy [address] [place] [phone] 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 PTAMTHZ Physical TherapyStart: 09-08-2024 End: 66-22-5650Novkrbf encounter gegdevbyy76/27/2024 3:30 PM EST Appointment [facility] Physical Therapy [address] [place] [phone] 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 PTAMTHZ Physical TherapyStart: 09-01-2024 End: 53-66-2268Whgubjf encounter fnhkykhyh41/20/2024 9:00 AM EST Appointment [facility] Physical Therapy [address] [place] [address] 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 PTA needs medicare recheck with yelena at this [facility] Comment on above:needs medicare recheck with yelena at this apptStart: 08-27-2024 End: 68-39-7340jicdsdxoly98/15/2024 10:30 AM EST [facility] Gynecology [address] [address] Augustina Vargas MD [address] [place] [address] 3 [place] F/U - TVST ok per Dr. BlandcologyComment on above:3 [place] F/U - TVST ok per Dr. Way: 08-27-2024 End: 56-06-1418Mylsmdm encounter lnozznmzl46/15/2024 10:30 AM EST Office Visit Gynecology [address] [address] Augustina Vargas MD [address] [place] [address] 3 MOF/U - TVST ok per Dr. BlandcologyComdevon on above:3 MO F/U - TVST ok per Dr. Way: 08-23-2024 End: 26-18-6641Lluvequ encounter lxonpmgzj01/11/2024 1:15 PM EST Appointment [facility] Physical Therapy [address] [place] [address] 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 PTA needs medicare recheck with yelena at next [facility] Comment on above:needs medicare recheck with yelena at next apptStart: 08-17-2024 End: 35-46-7617oybmwmhhgw74/05/2024 5:00 PM EST [facility] Gynecology [address] [place] [address] Augustina Vargas MD [address] [place] [address] 6 WEEK FU GynecologyComment on above:6 WEEK FUStart: 08-09-2024 End: 85-98-2649Pjvbwvd encounter okootrmok29/28/2024 10:45 AM EDT Appointment [facility] Physical Therapy [address] [place] [address] 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 [facility] Physical TherapyStart: 07-26-2024 End: 23-75-2845Ofekggd encounter yeqrkiswe48/14/2024 10:15 AM EDT Office Visit [facility] [address] [place] [address], [address] [place] [phone] Sarah Godwin MD [address] [place] [address] [facility] Start: 07-20-2024 End: 69-90-2852Fklkwkh encounter trhxswiow77/08/2024 10:45 AM EDT Office Visit [facility] [address] [place] [address], [address] [place] [address] Sarah Godwin MD [address] [place] [address] [facility] Start: 07-06-2024 End: 26-98-1817Uzpnzql encounter kaiyepace41/24/2024 10:30 AM EDT Office Visit Gynecology [address], [place] [address] Augustnia Vargas MD [address] [place] [address] BotoxGynecologyComment on above:BotoxStart: 06-28-2024 End: 45-27-0117Zoplxqa encounter pzaykgnqd37/16/2024 1:30 PM EDT [facility] [address] [place] [phone] 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 PTAMTHZ Physical TherapyStart: 69-85-6515Ljrasazsc for malignant neoplasm of lungLung Cancer ScreeningSelect Medical Specialty Hospital - Columbustart: 06-21-2024 End: 85-95-2960Dowwkxd encounter odkodgkmy39/09/2024 9:30 AM EDT [facility] [address] [place] [phone] 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 PTAMTHZ Physical TherapyStart: 24-88-3643Dapgdt Wellness Visit (Medicare) Annual Wellness Visit (Medicare)[facility] HospitalStart: 40-59-5517MSFVA- 19 Vaccine ( season)COVID-19 Vaccine ( season)Bon [facility] HospitalStart: 49-12-8570DFXPE-19 Vaccine ( season)COVID-19 Vaccine ( season)[facility] HospitalStart: 40-70-7320QSEOO-19 Vaccine ( season)COVID-19 Vaccine ( season)[facility] Richmondtart: 64-65-2512Ljulg-19 Vaccine ( season)Covid-19 Vaccine ( season)[facility] Columbustart: 01-36-8837Qnwaaxlwt vaccinationSelect Medical Specialty Hospital - Columbustart: 05-27-2024 End: 32-15-3637Eispfkr encounter procedureGynecologyComment on above:new cppadd on- follow up after LEATHER STAKER apptStart: 16-96-9864Wswdvtqme vaccinationFlu vaccine (#1)Bon [facility] HospitalStart: 05-10-2024 End: 42-40-1558Tqhsdyn encounter amniohhen29/29/2024 10:00 AM EDT Appointment [facility] [address] [place] [address] [phone] [facility] ImagingStart: 04-26-2024 End: 99-39-3037Dnxmbcx encounter procedureRadiologyComment on above:POST RENAL AUTOTRANSPLANTATION OTHER DISORDER OF KIDNEYORDER SCANNED POST RENAL AUTOTRANSPLANTATION OTHER DISORDER OF KIDNEYStart: 04-22-2024 End: 83-00-1385claixatalt52/11/2024 3:00 PM EDT [facility] Urology [address] [address] Chip Chowdary MD [address] [place] [address] virtual/per staff messageUrologyComment on above:virtual/per staff messageStart: 03-02-2024 End: 68-62-0670Uzexgligz to same day surgery ejiioq0503/02/2024 7:30 AM EDT - 03/02/2024 5:03 PM EDT Surgery Admitting [facility] [place] [address] Chip Chowdary MD [address] [place] [address] 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AdmittingComment on above: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Start: 03-02-2024 Subsequent hospital visit by odhjbbaoz81/21/2024 7:30 AM EDT Hospital Encounter Admitting [address] [place] [address] Chip Chowdary MD [address] [place] [address] Nutcracker phen omenon of renal vein [I87.1]AdmittingComment on above: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]Start: 03-02-2024 End: 96-11-8943Prwzmpzk laparoscopy procedure renal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 Nutcracker pheno elissa of renal vein 03/02/2024 7:30 AM EDC MAIN PAVILIONStart: 02-25-2024 End: 42-14-6139mODI in Platelet poor plasma by Coagulation assayACTIVATED PARTIAL THROMBOPLASTIN TIME Lab Routine Nutcracker phenomenon of renal vein Abnormal coagulation profile Expected: 02/25/2024 (Approximate), Expires: 05/26/2024leveland ClinicComment on above:Expected: 02/25/2024 (Approximate), Expires: 05/26/2024Start: 02-25-2024 End: 95-92-4295CAP W Auto Differential panel - BloodCOMPLETE BLOOD COUNT AND DIFFERENTIAL Lab Routine Nutcracker phenomenon of renal vein Expected: 02/10 (Approximate), Expires: 05/26/2024[facility] Work Phone: Comment on above:Expected: 02/25/2024 (Approximate), Expires: 05/26/2024Start: 02-25-2024 End: 25-53-5956Asuzlsiypgvro metabolic 2000 panel - Serum or PlasmaCOMPREHENSIVE METABOLIC PANEL Lab Routine Nutcracker phenomenon of renal vein Expected: 02/25/2024 (Approximate), Expires: 05/26/2024leveland ClinicComment on above: Expected: 02/25/2024 (Approximate), Expires: 05/26/2024Start: 02-25-2024 End: 88-49-6074VXDCAMF BLOOD TYPECONINFIRMARY WEST BLOOD TYPE Blood Bank Routine Nutcracker phenomenon of renal vein Expected: 02/25/2024 (Approximate), Expires: 05/26/2024[facility] ClinicComment on above:Expected: 02/25/2024 (Approximate), Expires: 05/26/2024Start: 02-25-2024 End: 91-32-9853MMB COMPLETEECG COMPLETE ECG Routine Nutcracker phenomenon of renal vein Expected: 02/25/2024 (Approximate), Expires: 12/29/2024[facility] ClinicComment on above:Expected: 02/25/2024 (Approximate), Expires: 12/29/2024 Start: 02-25-2024 End: 38-47-1873LZ panel - Platelet poor plasma by Coagulation assayPROTHROMBIN TIME Lab Routine Nutcracker phenomenon of renal vein Expected: 02/25/2024 (Approximate), Expires: 05/26/2024[facility] ClinicComment on above:Expected: 02/25/2024 (Approximate), Expires: 05/26/2024Start: 02-25-2024 End: 73-16-5428WQNF AND SCREEN,30 DAYTYPE AND SCREEN,30 DAY Blood Bank Routine Nutcracker phenomenon of renal vein Expected: 02/25/2024 (Approximate), Expires: 05/26/2024[facility] ClinicComment on above:Expected: 02/25/2024 (Approximate), Expires: 05/26/2024Start: 02-19-2024 End: 08-46-2566qmaabyhiyr78/09/2024 2:30 PM EDT Results Only Cardiology [address] [address] PRE OP ELTEMAMY ~ 03/02 CardiologyComment on above:PRE OP ELTEMAMY ~ art: 02-19-2024 End: 29-75-2126Freevga encounter procedureAdmittingComment on above:PRE OP ELTEMAMY ~ art: 02-19-2024 End: 39-89-6885Xfsxnwcmcg teczmcolueaj86/09/2024 1:20 PM EDT PAT Pre Anesthesia [address] [address] [place] [address] PRE OP ELTEMAMY ~ 03/02Pre Anesthesia Comment on above:PRE OP ELTEMAMY ~ art: 02-10-2024 End: 48-02-6444Kyzkngz encounter gajlrtndf99/30/2024 9:45 AM EDT Office Visit [facility] [address] [facility], [address] [place] [address] Sarah Godwin MD [address] [facility] [address] [place], [place] [phone] (Work) [facility] ENTStart: 12-19-2023 End: 59-25-9629Lxjff metabolic 2000 panel - Serum or PlasmaBASIC METABOLIC PNL Lab Routine Nutcracker phenomenon of renal vein Preop testing Expected: 12/19/19 24 (Approximate), Expires: 03/19/2024[facility] Work Phone: Comment on above:Expected: 12/19/2023 (Approximate), Expires: 03/19/2024Start: 12-19-2023 End: 05-18-5115PTA W Auto Differential panel - BloodCBC + DIFF Lab Routine Nutcracker phenomenon of renal vein Preop testing Expected: 12/19/2023 (Appro ximate), Expires: 03/19/2024[facility] Work Phone: Comment on above:Expected: 12/19/2023 (Approximate), Expires: 03/19/2024Start: 12-19-2023 End: 22-96-5470CYWVOTB BLOOD TYPECONFIRM BLOOD TYPE Blood Bank Routine Nutcracker phenomenon of renal vein Preop testing Expected: 12/19/2023 (Approximate), Expires: 03/19/2024[facility] Work Phone: Comment on above:Expected: 12/19/2023 (Approximate), Expires: 03/19/2024Start: 12-19-2023 End: 68-70-2284DU panel - Platelet poor plasma by Coagulation assayPROTHROMBIN TIME/PT Lab Routine Nutcracker phenomenon of renal vein Preop testing Expected: 12/19/2023 (Approximate), Expires: 03/19/2024[facility] Work Phone: Comment on above:Expected: 12/19/2023 (Approximate), Expires: 03/19/2024Start: 12-19-2023 End: 64-14-9187DHIIX AUREUS PCRSTAPH AUREUS PCR Lab Routine Nutcracker phenomenon of renal vein Preop testing Expected: 12/19/2023, Expires: 03/19/[address] [facility] Work Phone: Comment on above:Expected: 12/19/2023, Expires: 03/19/2024Start: 12-19-2023 End: 56-91-9476XKPB AND SCREEN,30 DAYTYPE AND SCREEN,30 DAY Blood Bank Routine Nutcracker phenomenon of renal vein Preop testing Expected: 12/19/2023 (Approximate), Expires: 03/19/2024[facility] Work Phone: Comment on above:Expected: 12/19/2023 (Approximate), Expires: 03/19/2024Start: 12-02-2023 End: 19-91-7469Qzbmsjb encounter jfqxyitcp81/20/2024 12:45 PM EST Office Visit [facility] - ENT [address] [place] [address], [address] [place] [address], PA-C [address] [place] [address] [address] [place] [address] [facility] Center - ENTStart: 11-24-2023 End: 06-21-4404Uvsoqwkcs to same day surgery odxfwm9911/24/2023 12:15 PM EST - 11/24/2023 2:15 PM EST Surgery [address] [phone] [place] [address] [place] [address] [place] [address] SIALENDOSCOPY RIGHT SUBMANDIBULAR DUCT [72994 (CPT )][facility] SurgeryComment on above:SIALENDOSCOPY RIGHT SUBMANDIBULAR DUCT [10839 (CPT )] Start: 33-57-9280Yxyisvdgfp hospital visit by tejbqfbha79/12/2024 12:15 PM EST Hospital Encounter [facility] [address] [place] [phone] Sarah Godwin MD [address] [facility] [address] [place], [place] [id number] [facility] SurgeryStart: 11-24-2023 End: 96-39-4714Gmkyvesa px salivary glands/ductsSIALENDOSCOPY Submandibular gland swelling Chronic sialoadenitis 11/24/2023 12:15 PM ESTTOLEDO SURGERYStart: 33-47-2635Ivcepri Directive DiscussionAdvance Directive DiscussionSelect Medical Specialty Hospital - Columbustart: 51-71-4254Hsdrzwovia Health ScreeningBehavioral Health Screening [facility]: 59-50-4240Kddufyutok AssessmentDepression Assessment [facility]: 72-45-9176Qpqhl-19 Vaccine ( season)Covid-19 Vaccine ()[facility]: 34-88-6432Enfgnntpu vaccinationSelect Medical Specialty Hospital - Columbustart: 08-01-2023Medicare Annual Wellness Visit Medicare Annual Wellness VisitSelect Medical Specialty Hospital - Columbustart: 63-51-4651Vtgb Risk ScreeningFall Risk ScreeningProMemorial [facility] SystemStart: 94-87-8580Jklxowqvnpmm 65+ years Vaccine (2 of 2 - PCV)Pneumococcal 65+ years Vaccine (2 of 2 - PCV)[facility]: 26-66-1002Ygckolfadlju Vaccine: 65+ (1 of 1 - PCV) Pneumococcal Vaccine: 65+ (1 of 1 - PCV)[facility]: 2022 Pneumococcal Vaccine: 65+ (2 of 2 - PCV)Pneumococcal Vaccine: 65+ (2 of 2 - PCV) [facility]: 40-79-9253Fvowmcrgfrcm Vaccine: 65+ Years (2 of 2 - PCV) Pneumococcal Vaccine: 65+ Years (2 of 2 - PCV)[facility] MedicineStart: 2022 Screening for osteoporosisBone Density ScreeningSelect Medical Specialty Hospital - Columbustart: 61-95-1646Cnshcubxgmna 50+ years Vaccine (2 of 2 - PCV)Pneumococcal 50+ years Vaccine (2 of 2 - PCV)[facility]: 98-04-5814Tktfcktsxdee Vaccine: 50+ (2 of 2 - PCV)Pneumococcal Vaccine: 50+ (2 of 2 - PCV)[facility]: 60-56-8379Qllejrqgejnl Vaccine: 65+ (2 of 2 - PCV)Pneumococcal Vaccine: 65+ (2 of 2 - PCV)[facility]: 85-69-1574Dzcpjmekteol Vaccine: 65+ Years (2 of 2 - PCV)Pneumococcal Vaccine: 65+ Years (2 of 2 - PCV) [facility] MedicineStart: 58-96-7684Rogxpxttxzy Syncytial Virus (RSV) or age 60 yrs+ (1 - 1-dose 60+ series)Respiratory Syncytial Virus (RSV) or age 60 yrs+ (1 - 1-dose 60+ series)[facility]: 11-73-5057HWM Vaccine (1 - 1-dose 60+ series)RSV Vaccine (1 - 1-dose 60+ series)[facility]: 03-93-4997CMI Vaccine (1 - Risk 60-74 years 1-dose series)RSV Vaccine (1 - Risk 60-74 years 1-dose series)[facility]: 2012 Screening for osteoporosisDEXA (modify frequency per FRAX score)[facility]: 27-57-7787Siyrbgtv Vaccine (1 of 2)Shingrix Vaccine (1 of 2) [facility]: 83-75-4318Iivhq panelLipid ScreeningSelect Medical Specialty [facility] Start: 29-75-0030Csmcuxpjl for malignant neoplasm of colonSelect Medical Specialty Hospital - Columbustart: 28-53-1515Czmvz panelLipidsShenandoah [facility]: 23-64-2406Abrygyvmz for malignant neoplasm of breastSelect Medical Specialty Hospital - Columbustart: 95-07-2574QIwP,Tdap and Td Vaccines (1 - Tdap)DTaP,Tdap and Td Vaccines (1 - Tdap)[facility]: 93-46-4682KNnL/Tdap/Td vaccine (1 - Tdap)DTaP/Tdap/Td vaccine (1 - Tdap)[facility]: 04-99-9797Cdimw microalbumin profile DTaP,Tdap,Td Vaccine (1 - Tdap)[facility]: 77-40-4295Ubedteq ScreeningAnxiety ScreeningSelect Medical Specialty Hospital - Columbustart: 02-96-9084Nrnazyijhy Screening Depression ScreeningSelect Medical Specialty Hospital - Columbustart: 24-08-5650Xnmagoygr C screening [facility]: 00-50-7297Gvqvksvkah ScreenDepression ScreenBon [facility] Hospitalart: 20-35-1844Znbjitocoo ScreeningDepression ScreeningProWilson Street HospitalNewton Medical Centertart: 81-36-4078Kllnbbvjv for malignant neoplasm of cervixCervical Cancer ScreeningSelect Medical Specialty Hospital - Columbustart: 53-62-3040Frkfh-19 Vaccine (#1)Covid-19 Vaccine (#1)[facility]: 1955Medicare Annual Wellness Visit Medicare Annual Wellness VisitFirstHealth Moore Regional Hospital - Richmondtart: 75-03-1566Oquzekaqf for malignant neoplasm of colonNOKS Healthcare End: 79-39-3101CgcxuxawuisFpkxxpomqln GI Routine LLQ pain Rectal bleeding 1 Occurrences starting 07/05/2025 until 07/05/2026[facility] Work Phone: Comment on above:1 Occurrences starting 07/05/2025 until 07/05/2026YSTOSCOPY WHICYSTOSCOPY WHI Procedures Routine High-tone pelvic floor dysfunction 1 Occurrences starting 08/18/2024[facility] Work Phone: comment on above:1 Occurrences starting 08/18/2024 End: 10-02-8315NGI COMPLETEECG COMPLETE ECG Routine Nutcracker phenomenon of renal vein Preop testing 1 Occurrences starting 12/19/2023 until 12/18/[address] [facility] Work Phone: Comment on above:1 Occurrences starting 12/19/2023 until 12/18/2024Injection single/assembler 1st shift trigger point 1/2 musclesTRIGGER POINT INJECTION MULTI 1-2 MUSCLE GR Procedures Routine Myalgia Ordered: 07/06/[address] [facility] Work Phone: comment on above:Ordered: 07/06/2024Injection single/assembler 1st shift trigger point 1/2 musclesTRIGGER POINT INJECTION MULTI 1-2 MUSCLE GR Procedures Routine Trigger point of abdomen Myalgia, other site Ordered: 12/08/2024[facility] Work Phone: comkmoy on above:Ordered: 12/08/2024 End: 46-90-2645Fkbkm panelLipid panel Lab Routine Hyperlipidemia, unspecified hyperlipidemia type 1 Occurrences starting 07/02/2024 until 07/02/2025[facility] [address] [facility] Work Phone: Comment on above:1 Occurrences starting 07/02/2024 until 07/02/2025[facility] Work Phone: THIN PREP TIS PAP AND HR HPV DNATHIN PREP TIS PAP AND HR HPV DNA Pathology and Cytology Routine Well woman exam with routine gynecol ogical exam Ordered: 12/06/2024[facility] HealthcareComment on above:Ordered: 12/06/2024URINALYSIS, REFLEX MICROSCOPICURINALYSIS, REFLEX MICROSCOPIC Lab Routine Screening for genitourinary condition Ordered: [address] [place] [address] Work Phone: Comment on above:Ordered: 05/27/2024 End: 88-35-0837ZO Renal arteryUS RENAL ARTERY [facility] Vascular Lab Routine Nutcracker phenomenon of renal vein 1 Occurrences starting 12/12/[address] [place] [address] Work Phone: Comment on above:1 Occurrences starting 12/12/2023 until 12/11/2024 End: 90-23-9089IF Vein - bilateralUS VENOUS INCOMPETENCY [facility] Vascular Lab Routine Nutcracker phenomenon of renal vein 1 Occurrences starting 12/17/[address] [place] [address] Work Phone: Comment on above:1 Occurrences starting 12/17/2023 until 12/16/2024 End: 88-89-3729RB.doppler Renal vessels - bilateralUS RENAL VENOUS [facility] Vascular Lab Routine Nutcracker phenomenon of renal vein 1 Occurrences starting 12/17/[address] [place] [address] Work Phone: Comment on above:1 Occurrences starting 12/17/[address] [place] [address] Immunizations Immunization DateImmunizationNotesCare RkitioysLgwevzgs87-80-0198diokoxnwr virus vaccine, split virus (incl. purified surface antigen)Ammon Osborne Other [facility] [place] Other 108392-03-1462qzvmbpmxw, injectable, quadrivalent, preservative Ananda Warren DO Work Phone: [facility] MedicineLtujqleohs22-50-9751cugmskhch virus vaccine, unspecified formulationNo [facility]12-02-2020 zoster vaccine recombinantLeanne Tenisha DO Work Phone: [facility] MedicineKlrfdzjqxz94-79-8234onqfekupr, injectable, quadrivalent, preservative freeLeanne Tenisha DO Work Phone: [facility] MedicineGhavpeygvp37-45-8142beqfjr vaccine recombinant Dania Tenisha DO Work Phone: [facility] MedicineYtsoobscrx36-53-6616ghyguvjeqpco polysaccharide vaccine, 23 valentLeanne Tenisha DO Work Phone: [facility] MedicineJwiarxgtuy76-20-3152pafgvhbck virus vaccine, split virus (incl. purified surface antigen)Ammon Osborne Other [place] Other 563968-44-6179lnnraqqbp virus vaccine, unspecified formulationAmmon Osborne MD Work Phone: [facility]10-30-2019influenza, injectable, quadrivalent, preservative freeLeanne Tenisha DO Work Phone: [facility] MedicineNsslwtrdlu44-15-0216nxkwfucmd, injectable, quadrivalent, preservative freeLeanne Tenisha DO Work Phone: [facility] Payers DatePayer CategoryPayerPolicy [id number] [facility] [id number] 2023- Present [address] [place] [address] [id number] Care Other (unspecified)[facility] Member Subscriber Plan / Payer (Effective 2023-Present) Name: Tyrese Zaidi Relation to Subscriber: Self Name: Karen Zaidi Payer ID: [id number] (NAIC) Group ID: Not on file Type: Not on file Address: [facility] [address] [place] [id number] [id number] 2..6.726133.197819 2022Medicare [id number]9-3325Utdxazb Health Insurance [id number] 2.840.5.206467.19723872-55-9683[employer]ee [employer] [id number]-[id number] 2.0.1.508001.3.57[id number] 2.0.1.645075.3.579.2.09972-95-2058Nbgdtzp2182239 2.840.1.817426.3.579.2.7[id number] 2.0.1.231228.3.579.[id number] 2.840.1.453425.3.579.2.271063-50-2925Mghgusa0233984 2.840.1.362073.3.579.2.064640-30-8440Yqrytmn93133749 2.840.1.610390.3.579.2.13052-28-5287Xgoftwg22124206 2.840.1.914257.3.579.2.97554-42-0934Fcitxvp12021374 2.16.840.1.829276.3.579.2.07002-77-3901Fsopzrz71884053 2.16.840.1.413106.3.579.2.97696-93-0635Wqovzrf20074090 2.16.840.1.116894.3.579.2.32458-48-5611Vqjtnrb80450364 2.16.840.1.035991.3.579.2.25874-76-9128Pzzqbyn91646230 2..840.1.200534.3.579.2.27214-40-6528Peoapbe77209118 2..840.1.818293.3.579.2.50996-95-8873Wvmjgym94770560 2..840.1.452742.3.579.2.91042-48-9704Uhmkixe71266163 2..840.1.572911.3.579.2.96622-69-0364Gbbicoc45447153 2..840.1.708285.3.579.2.18670-32-2388Sbwbnjl66781836 2.16.840.1.517832.3.579.2.30414-38-4171Bkwsfmt01579246 2..840.1.865017.3.579.2.75905-92-1670Kmcwukg04712784 2.16.840.1.264799.3.579.2.16464-65-4642Nlbqkfj83097111 2.16.840.1.671502.3.579.2.36120-94-3733Agzszle15397351 2.16.840.1.525640.3.579.2.48157-80-7856Sanoxnm64583526 2.16.840.1.069669.3.579.2.25645-98-2941Mhpggfu44255350 2.16.840.1.624000.3.579.2.37440-42-7340Cypvgvj76005722 2.16.840.1.521577.3.579.2.54394-56-7510Ydhdsqc21157228 2.16.840.1.662891.3.579.2.93392-48-7642Vkggtgw72185678 2.16.840.1.937581.3.579.2.75804-27-7683Xkqdbwa78168932 2..840.1.453851.3.579.2.35784-51-2209Kjuybiw94414803 2..840.1.872809.3.579.2.51280-89-4123Fhmfdwh33138999 2.16840.1.664392.3.579.2.03860-86-3672Pdaipqb80094955 2.16.840.1.267052.3.579.2.86973-32-9915Pfaxpxz95516295 2.16.840.1.642871.3.579.2.85555-07-1633Hungmgr12580281 2.16.840.1.788573.3.579.2.35482-59-8654Wpkruxp81823181 2..840.1.446184.3.579.2.53149-96-9638Ecbysla86432386 2.16.840.1.116404.3.579.2.19470-92-3201Sdtpbjg46317640 2.16.840.1.236855.3.579.2.09204-97-7246Axshskc53592831 2.16.840.1.176089.3.579.2.01845-88-9332Wpauwhy14851264 2.16.840.1.656257.3.579.2.65073-09-0569Qbidtev12891846 2..0.1.034733.3.579.2.13906-26-5878Gyhtqus31337424 2..840.1.309819.3.579.2.51679-87-2148Ifdrexq80982510 2.0.1.990818.3.579.2.66006-52-2102Zkcxabc89887263 2.0.1.273019.3.579.2.04312-22-3184Sayeldh563245343 2.0.1.554309.3.579.2.612080-02-0588Tawyeur572093434 2.0.1.648834.3.579.2.505160-66-5421Zvlfbjr061215472 2.0.1.843520.3.579.2.465082-45-9839Axvnzzd956282072 2.0.1.989508.3.579.2.477877-74-2229Roimaqz350178897 2.0.1.535346.3.579.2.823671-08-1153Putpluy963667240 2.0.1.556471.3.579.2.541676-97-2035Jbsosmw280003347 2.0.1.897184.3.579.2.329053-14-8953Jxkssrs059706226 2.0.1.017942.3.579.2.1286Mediriverview health instituteAARP Medicare Advantage [id number] 2.840.1.146177.3.579.2.593 Social History DateTypeDetailFacilityStart: 11-05-2023 End: 53-92-4513Cfr Assigned At BirthProWayne HospitalTobacco smoking status NHISTobacco smoking consumption unknownSelect Medical [facility]ty [facility]art: 1955 Sex Assigned At BirthNot on fileSelect Medical Specialty Hospital - Columbustart: 11-05-2023 End: 99-23-0466Irkpnyw smoking status NHISEx-smokerSelect Medical Specialty Hospital - Columbustart: 02-07-1968 End: 86-34-5992Cmiiats of tobacco useCurrent smokerSelect Medical Specialty Hospital - Columbustart: 02-07-1968 End: 15-81-1877Sfmbrlm of tobacco useCigarette SmokerSelect Medical Specialty Hospital - Columbustart: 11-05-2023 End: 73-12-8849Prfrqwpebr smoked current (pack per day) - Bvkzdodt3KjePyw[address] [place], [place] [address]tart: 11-05-2023 End: 80-04-4367Ywjpkst use and exposureSmokeless tobacco non-userSelect Medical Specialty Hospital - Columbustart: 11-05-2023 End: 35-78-1619Qdhqbrd intakeEx-drinker (finding)[facility]: 62-52-9133Pnfuecgn Score (1-100), lower number is lower idpb73QsdKrkljeKindred Hospital LimaHistory of tobacco usePassive smokerFirstHealth [facility] Hospital [facility] Richmondtart: 06-03-2024 End: 68-83-1747Tebdchdpq beverage intakeLifetime non-drinker (finding)[facility] HealthcareStart: 84-64-3767Qwadcpa Commentcaffeine intake: 2-3 cups per dayBEAVER VALLEY HOSPITAL HealthcareStart: 09-30-2023 End: 63-47-9404Ynycurb intakeCurrent drinker of alcohol (finding)[facility]: 49-18-7161Znszqdc Comment2 per monthCincinnati Shriners Hospital System Start: 05-18-2015 End: 16-53-7850QomWcfwlo (finding)[facility]: 62-13-2420Iep Assigned At BirthAultman Alliance Community HospitalHow often do you have a drink containing alcohol?NeverCincinnati Shriners Hospital SystemNEGATED: Highlighted row Start: NINFHistory of tobacco usePassive smokerSelect Medical [facility]ty [facility] Medical Equipment Procedure CodeEquipment CodeEquipment Original TextEquipment IdentifierDates Stent Inlay 4.7fr 2 Pigtail Curve Taper Blue Hydrophilic 14cm Ureteral - [id number]: 03-02-2024 Goals DatePatient GoalDesired Activity/StatePersonal health goalPersonal health goal Clinical Notes 07-29-2021 to 08-04-2025 Note Date & WbqpQqkmBxrwhziy79-99-0800 History and physical note* Gal Dietz, [employer] AND [employer] GR[employer]COLORED 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 White or female, presents to [facility] for a pre-surgical H&P for a planned SIALENDOSCOPY - Right, SIALOLITHOTOMY - open sialolithotomy with or without stent placement(psb) - Right, EXCISION GLAND SUBMANDIBULAR(psb) - Right. Patient has a history of chronic sialadenitis right with intermittent edema of the right submandibular gland. Patient has had intermittent swelling of the right submandibular gland. Patient has been treated with antibiotics. She is s/p dilation of the duct with steroid irrigation 11/24/2023. She c/oright salivary gland pain. She also has a consistent bad taste in her mouth. Patient underwent an autotransplantation of her kidney on 03/02/2024 at [facility]. She was hospitalized and diagnosed with CML in May 2025. PAST MEDICAL HISTORY: Past Medical History: Diagnosis Date AAA (abdominal aortic aneurysm) Angina pectoris Aortic aneurysm Arthritis Back pain arthritis Chest pain Chronic headache Sep 2019 Chronic kidney disease stone Chronic myeloid leukemia (CMS-HCC) 07/27/2025 Started oral chemo Chronic rhinitis 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 Coronary artery disease Dental disease implants Dizziness Dysphagia, pharyngeal phase Wrangell's syndrome Fractures left arm Hoarseness 08/03/2025 Hypertension Sep 2019 Hypothyroidism Jugular vein stenosis Neuromuscular disorder (CMS-HCC) Neck,back Nutcracker phenomenon of renal vein 2022 Osteoporosis Pelvic congestion syndrome Peripheral vascular disease Scoliosis Seasonal allergies Shingles Status post kidney transplant 03/02/2024 Pt had her own left kidney removed and then transplanted back in after fixing the vessels that go to them. Submandibular gland swelling 11/12/2023 Varicella 1960 Vasomotor rhinitis 08/03/2025 Visual impairment glasses PAST SURGICAL HISTORY: Past Surgical History: Procedure Laterality Date APPENDECTOMY 1979 CATARACT EXTRACTION Bilateral 2018 CHOLECYSTECTOMY COLONOSCOPY COLONOSCOPY N/A 07/23/2018 Performed by Orquidea Salcedo DO at [facility] COLONOSCOPY DIAGNOSTIC / SCREENING N/A 07/11/2025 Performed by Orquidea Salcedo DO at [facility] DENTAL SURGERY 07/2013 implants Diagnostic cerebral angiogram N/A 03/31/2020 Performed by Melissa Morillo MD at [facility] CARDIAC CATH LABS DIAGNOSTIC VENOGRAM OF IVC AND ILEOCABLE, LEFT RENAL VEIN, SELECTIVE LEFT OVARIAN VEIN CONTRAST ANDIVUS VENOGRAMS N/A 07/25/2023 Performed by Erendira Armijo DO at [facility] SPECIAL PROC dilation rt submandibular duct and steroid irrigation Right 11/24/2023 Performed by Sarah Godwin MD at [facility] EYE SURGERY 2018 cataracts KIDNEY STONE SURGERY 2019? KNEE CARTILAGE SURGERY MOLE REMOVAL 11/10/2023 right breast NEPHRECTOMY TRANSPLANTED ORGAN Left 03/02/2024 autotransplantation OTHER SURGICAL HISTORY 08/31/2020 cranial base ( cranial styloidectomy) 05/2020 also OTHER SURGICAL HISTORY 06/18/2023 venogram OTHER SURGICAL HISTORY 09/09/2023 DIagnostic venogram TUBAL LIGATION Vascular Invasive Diagnostic venogram with IVUS and the ability to measure pressure gradients Bilateral 06/18/2023 Performed by Erendira Armijo DO at [facility] CARDIAC CATH LABS FAMILY HISTORY: Family History Problem Relation Age of Onset Aneurysm Mother Early Mother Brain aneurysm Hypertension Mother Stroke Mother Brain aneurysm Vision loss Mother Aneurysm Father Early Father aortic aneurysm Heart disease Father Hypertension Father Arthritis Brother Knee replacements Early Brother Heart attack Heart disease Brother Hypertension Brother Stroke Brother mild Asthma Son Vision loss Son Vision loss Son Asthma Maternal Aunt Hypertension Maternal Aunt Hypertension Maternal Aunt Stroke Maternal Aunt Colon cancer Maternal Uncle Diabetes Maternal Uncle Heart disease Paternal Uncle Hypertension Paternal Uncle Hypertension Paternal Uncle Stroke Paternal Uncle Hypertension Paternal Uncle Anesthesia problems Neg Hx SOCIAL HISTORY: The patient reports current alcohol use. She reports that she quit smoking about 25 years ago. Her smoking use included cigarettes. She started smoking about 55 years ago. She has a 30 pack-year smoking history. She has been exposed to tobacco smoke. She has never used smokeless tobacco. She reports no history of drug use. ALLERGIES: Allergies Allergen Reactions Clindamycin Hives, Shortness Of Breath and Rash Bee Venom Protein (Honey Bee) Rash Codeine GI Disturbance Other Reaction(s): GI intolerance Doxycycline Hyclate Rash MEDICATIONS: Current Outpatient Medications: atorvastatin (LIPITOR) 20 mg tablet, Take 1 tablet (20 mg total) by mouth in the morning. (Patient taking differently: Take 0.5 tablets (10 mg total) by mouth in the morning.), Disp: 90 tablet, Rfl: 0 CALCIUM CARBONATE-VITAMIN D3 ORAL, Take 1,200 mg by mouth in the morning., Disp: , Rfl: cyclobenzaprine (FLEXERIL) 5 mg tablet, Take 2 tablets (10 mg total) by mouth as needed in the morning and 2 tablets (10 mg total) as needed at noon and 2 tablets (10 mg total) as needed in the evening for muscle spasms., Disp: , Rfl: dasatinib (SPRYCEL) 100 mg chemo tablet, Take 1 tablet by mouth Daily after lunch, Disp: , Rfl: fluticasone (FLONASE) 50 mcg/actuation nasal spray, Administer 1 spray into each nostril in the morning., Disp: , Rfl: HYDROcodone-acetaminophen (NORCO) 5-325 mg per tablet, Take 1 tablet by mouth every 6 (six) hours as needed., Disp: , Rfl: ibuprofen (ADVIL,MOTRIN) 200 mg tablet, Take 2 tablets (400 mg total) by mouth every 6 (six) hours as needed for pain., Disp: , Rfl: ipratropium (ATROVENT) 42 mcg (0.06 %) nasal spray, Administer 2 sprays into each nostril 3 (three)times a day as needed for rhinitis., Disp: 15 mL, Rfl: 5 montelukast (SINGULAIR) 10 mg tablet, Take 1 tablet (10 mg total) by mouth nightly Indications: seasonal runny nose., Disp: , Rfl: nystatin (MYCOSTATIN) 100,000 unit/mL suspension, Take 5 mL (500,000 Units total) by mouth in the morning and 5 mL (500,000 Units total) at noon and 5 mL (500,000 Units total) in the evening and 5 mL(500,000 Units total) before bedtime., Disp: , Rfl: ondansetron ODT (ZOFRAN ODT) 4 mg disintegrating tablet, as needed., Disp: , Rfl: prochlorperazine (COMPAZINE) 10 mg tablet, Take 1 tablet (10 mg total) by mouth every 8 (eight) hours as needed., Disp: , Rfl: VITAMIN B COMPLEX ORAL, Take 1 capsule by mouth in the morning., Disp: , Rfl: loratadine-pseudoephedrine (LORATADINE-D) 5-120 mg tablet extended release 12 hr, Take 1 tablet by mouth every 12 (twelve) hours. 1/2 tablet- keeps right ear open (Patient not taking: Reported on 08/04/2025), Disp: , Rfl: REVIEW OF SYSTEMS: Review of Systems Constitutional: Negative. Negative for activity change and appetite change. HENT: Negative for congestion, ear discharge, ear pain, sore throat and trouble swallowing. Eyes: Positive for visual disturbance (glass). Negative for pain and discharge. Respiratory: Negative for apnea, cough, shortness of breath, wheezing and stridor. Cardiovascular: Negative for chest pain and palpitations. Gastrointestinal: Negative for nausea, vomiting, abdominal pain, diarrhea and abdominal distention. Endocrine: Negative. Genitourinary: Negative for dysuria, urgency and flank pain. Musculoskeletal: Positive for arthralgias. Negative for myalgias and joint swelling. Skin: Negative for rash and wound. Allergic/Immunologic: Negative. Neurological: Negative for dizziness, seizures, syncope, light-headedness and headaches. Psychiatric/Behavioral: Negative for agitation. VITAL SIGNS: BP 127/73 Pulse 65 Temp 36.3 C (97.3 F) (Temporal) Resp 18 Ht 170.2 cm (5' 7 ) Wt 63.2 kg(139 lb 5.3 oz) SpO2 100% BMI 21.82 kg/m PHYSICAL EXAM: Physical Exam Vitals reviewed. Constitutional: General: She is not in acute distress. Appearance: Normal appearance. She is well-developed. She is not ill-appearing or toxic-appearing. HENT: Head: Normocephalic. Eyes: General: Lids are normal. Conjunctiva/sclera: Conjunctivae normal. Cardiovascular: Rate and Rhythm: Normal rate and regular rhythm. Pulses: Normal pulses. Radial pulses are 2+ on the right side and 2+ on the left side. Posterior tibial pulses are 2+ on the right side and 2+ on the left side. Heart sounds: Normal heart sounds, S1 normal and S2 normal. No murmur heard. Pulmonary: Effort: Pulmonary effort is normal. No respiratory distress. Breath sounds: Normal breath sounds. Abdominal: General: Bowel sounds are normal. Palpations: Abdomen is soft. Tenderness: There is no abdominal tenderness. Musculoskeletal: Right lower leg: No edema. Left lower leg: No edema. Skin: General: Skin is warm and dry. Neurological: Mental Status: She is alert and oriented to person, place, and time. Psychiatric: Behavior: Behavior is cooperative. PERTINENT TESTING AVAILABLE IN [facility] (WITHIN THE PAST 2 YEARS): EK07/04/2025 Echo: No results found for this or any previous visit from the past 913 days. No results found for this or any previous visit from the past 913 days. No results found. Stress test: No results found for this or any previous visit from the past 913 days. No results found. Holter: No results found for this or any previous visit from the past 913 days. No results found. Cardiac catheterization: No results found. Carotids: No results found. Pulmonary function testing: No results found. RECENT LABS: Lab Results Component Value Date WBC 4.8 11/12/2023 HGB 12.9 11/12/2023 HCT 38.5 11/12/2023 PLT 205 11/12/2023 SODIUM 138 06/24/2023 K 3.7 06/24/2023 CL 103 06/24/2023 CO2 27 06/24/2023 CALCIUM 9.3 06/24/2023 ALKPHOS 54 06/24/2023 ALBUMIN 4.4 06/24/2023 GLU 105 (H) 07/25/2023 ALT 14 06/24/2023 AST 22 06/24/2023 CREATININE 0.90 11/12/2023 BUN 23 06/24/2023 GFR >60 02/08/2020 GFR >60 02/08/2020 EGFR 71 11/12/2023 *Please note that labs listed above are the most recent lab values available in [facility] at the time the H&P was signed. ASSESSMENT / DIAGNOSIS: Chronic sialoadenitis PLAN: Karen Zaidi is scheduled for SIALENDOSCOPY - Right, SIALOLITHOTOMY - open sialolithotomy with or without stent placement(psb) - Right, EXCISION GLAND SUBMANDIBULAR(psb) - Right with Dr. Godwin on 08/17/2025. ED Read 08/04/25 1307 [id number] History and physical note* ED Read - 08/04/2025 12:15 PM EDT PRE-ADMISSION TESTING HISTORY AND PHYSICAL EXAM DATE: 08/04/25 PCP: AMMON OSBORNE MD CHIEF COMPLAINT: Chronic sialoadenitis HISTORY OF PRESENT ILLNESS: Karen Zaidi, a 69 y.o. White or female, presents to [facility] for a pre-surgical H&P for a planned SIALENDOSCOPY - Right, SIALOLITHOTOMY - open sialolithotomy with or without stent placement(psb) - Right, EXCISION GLAND SUBMANDIBULAR(psb) - Right. Patient has a history of chronic sialadenitis right with intermittent edema of the right submandibular gland. Patient has had intermittent swelling of the right submandibular gland. Patient has been treated with antibiotics. She is s/p dilation of the duct with steroid irrigation 11/24/2023. She c/oright salivary gland pain. She also has a consistent bad taste in her mouth. Patient underwent an autotransplantation of her kidney on 03/02/2024 at [facility]. She was hospitalized and diagnosed with CML in May 2025. PAST MEDICAL HISTORY: Past Medical History: Diagnosis Date AAA (abdominal aortic aneurysm) Angina pectoris Aortic aneurysm Arthritis Back pain arthritis Chest pain Chronic headache Sep 2019 Chronic kidney disease stone Chronic myeloid leukemia (CMS-HCC) 07/27/2025 Started oral chemo Chronic rhinitis 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 Coronary artery disease Dental disease implants Dizziness Dysphagia, pharyngeal phase Wrangell's syndrome Fractures left arm Hoarseness 08/03/2025 Hypertension Sep 2019 Hypothyroidism Jugular vein stenosis Neuromuscular disorder (CMS-HCC) Neck,back Nutcracker phenomenon of renal vein 2022 Osteoporosis Pelvic congestion syndrome Peripheral vascular disease Scoliosis Seasonal allergies Shingles Status post kidney transplant 03/02/2024 Pt had her own left kidney removed and then transplanted back in after fixing the vessels that go to them. Submandibular gland swelling 11/12/2023 Varicella 1960 Vasomotor rhinitis 08/03/2025 Visual impairment glasses PAST SURGICAL HISTORY: Past Surgical History: Procedure Laterality Date APPENDECTOMY 1980 CATARACT EXTRACTION Bilateral 2018 CHOLECYSTECTOMY COLONOSCOPY COLONOSCOPY N/A 07/23/2018 Performed by Orquidea Salcedo DO at [facility] COLONOSCOPY DIAGNOSTIC / SCREENING N/A 07/11/2025 Performed by Orquidea Salcedo DO at [facility] DENTAL SURGERY 07/2013 implants Diagnostic cerebral angiogram N/A 03/31/2020 Performed by Melissa Morillo MD at [facility] CARDIAC CATH LABS DIAGNOSTIC VENOGRAM OF IVC AND ILEOCABLE, LEFT RENAL VEIN, SELECTIVE LEFT OVARIAN VEIN CONTRAST ANDIVUS VENOGRAMS N/A 07/25/2023 Performed by Erendira Armijo DO at [facility] SPECIAL PROC dilation rt submandibular duct and steroid irrigation Right 11/24/2023 Performed by Sarah Godwin MD at [facility] 2018 cataracts KIDNEY STONE SURGERY 2019? KNEE CARTILAGE SURGERY MOLE REMOVAL 11/10/2023 right breast NEPHRECTOMY TRANSPLANTED ORGAN Left 03/02/2024 autotransplantation OTHER SURGICAL HISTORY 08/31/2020 cranial base ( cranial styloidectomy) 05/2020 also OTHER SURGICAL HISTORY 06/18/2023 venogram OTHER SURGICAL HISTORY 09/09/2023 DIagnostic venogram TUBAL LIGATION Vascular Invasive Diagnostic venogram with IVUS and the ability to measure pressure gradients Bilateral 06/18/2023 Performed by Erendira Armijo DO at [facility] CARDIAC CATH LABS FAMILY HISTORY: Family History Problem Relation Age of Onset Aneurysm Mother Early Mother Brain aneurysm Hypertension Mother Stroke Mother Brain aneurysm Vision loss Mother Aneurysm Father Early Father aortic aneurysm Heart disease Father Hypertension Father Arthritis Brother Knee replacements Early Brother Heart attack Heart disease Brother Hypertension Brother Stroke Brother mild Asthma Son Vision loss Son Vision loss Son Asthma Maternal Aunt Hypertension Maternal Aunt Hypertension Maternal Aunt Stroke Maternal Aunt Colon cancer Maternal Uncle Diabetes Maternal Uncle Heart disease Paternal Uncle Hypertension Paternal Uncle Hypertension Paternal Uncle Stroke Paternal Uncle Hypertension Paternal Uncle Anesthesia problems Neg Hx SOCIAL HISTORY: The patient reports current alcohol use. She reports that she quit smoking about 25 years ago. Her smoking use included cigarettes. She started smoking about 55 years ago. She has a 30 pack-year smoking history. She has been exposed to tobacco smoke. She has never used smokeless tobacco. She reports no history of drug use. ALLERGIES: Allergies Allergen Reactions Clindamycin Hives, Shortness Of Breath and Rash Bee Venom Protein (Honey Bee) Rash Codeine GI Disturbance Other Reaction(s): GI intolerance Doxycycline Hyclate Rash MEDICATIONS: Current Outpatient Medications: atorvastatin (LIPITOR) 20 mg tablet, Take 1 tablet (20 mg total) by mouth in the morning. (Patient taking differently: Take 0.5 tablets (10 mg total) by mouth in the morning.), Disp: 90 tablet, Rfl: 0 CALCIUM CARBONATE-VITAMIN D3 ORAL, Take 1,200 mg by mouth in the morning., Disp: , Rfl: cyclobenzaprine (FLEXERIL) 5 mg tablet, Take 2 tablets (10 mg total) by mouth as needed in the morning and 2 tablets (10 mg total) as needed at noon and 2 tablets (10 mg total) as needed in the evening for muscle spasms., Disp: , Rfl: dasatinib (SPRYCEL) 100 mg chemo tablet, Take 1 tablet by mouth Daily after lunch, Disp: , Rfl: fluticasone (FLONASE) 50 mcg/actuation nasal spray, Administer 1 spray into each nostril in the morning., Disp: , Rfl: HYDROcodone-acetaminophen (NORCO) 5-325 mg per tablet, Take 1 tablet by mouth every 6 (six) hours as needed., Disp: , Rfl: ibuprofen (ADVIL,MOTRIN) 200 mg tablet, Take 2 tablets (400 mg total) by mouth every 6 (six) hours as needed for pain., Disp: , Rfl: ipratropium (ATROVENT) 42 mcg (0.06 %) nasal spray, Administer 2 sprays into each nostril 3 (three)times a day as needed for rhinitis., Disp: 15 mL, Rfl: 5 montelukast (SINGULAIR) 10 mg tablet, Take 1 tablet (10 mg total) by mouth nightly Indications: seasonal runny nose., Disp: , Rfl: nystatin (MYCOSTATIN) 100,000 unit/mL suspension, Take 5 mL (500,000 Units total) by mouth in the morning and 5 mL (500,000 Units total) at noon and 5 mL (500,000 Units total) in the evening and 5 mL(500,000 Units total) before bedtime., Disp: , Rfl: ondansetron ODT (ZOFRAN ODT) 4 mg disintegrating tablet, as needed., Disp: , Rfl: prochlorperazine (COMPAZINE) 10 mg tablet, Take 1 tablet (10 mg total) by mouth every 8 (eight) hours as needed., Disp: , Rfl: VITAMIN B COMPLEX ORAL, Take 1 capsule by mouth in the morning., Disp: , Rfl: loratadine-pseudoephedrine (LORATADINE-D) 5-120 mg tablet extended release 12 hr, Take 1 tablet by mouth every 12 (twelve) hours. 1/2 tablet- keeps right ear open (Patient not taking: Reported on 08/04/2025), Disp: , Rfl: REVIEW OF SYSTEMS: Review of Systems Constitutional: Negative. Negative for activity change and appetite change. HENT: Negative for congestion, ear discharge, ear pain, sore throat and trouble swallowing. Eyes: Positive for visual disturbance (glass). Negative for pain and discharge. Respiratory: Negative for apnea, cough, shortness of breath, wheezing and stridor. Cardiovascular: Negative for chest pain and palpitations. Gastrointestinal: Negative for nausea, vomiting, abdominal pain, diarrhea and abdominal distention. Endocrine: Negative. Genitourinary: Negative for dysuria, urgency and flank pain. Musculoskeletal: Positive for arthralgias. Negative for myalgias and joint swelling. Skin: Negative for rash and wound. Allergic/Immunologic: Negative. Neurological: Negative for dizziness, seizures, syncope, light-headedness and headaches. Psychiatric/Behavioral: Negative for agitation. VITAL SIGNS: BP 127/73 Pulse 65 Temp 36.3 C (97.3 F) (Temporal) Resp 18 Ht 170.2 cm (5' 7 ) Wt 63.2 kg(139 lb 5.3 oz) SpO2 100% BMI 21.82 kg/m PHYSICAL EXAM: Physical Exam Vitals reviewed. Constitutional: General: She is not in acute distress. Appearance: Normal appearance. She is well-developed. She is not ill-appearing or toxic-appearing. HENT: Head: Normocephalic. Eyes: General: Lids are normal. Conjunctiva/sclera: Conjunctivae normal. Cardiovascular: Rate and Rhythm: Normal rate and regular rhythm. Pulses: Normal pulses. Radial pulses are 2+ on the right side and 2+ on the left side. Posterior tibial pulses are 2+ on the right side and 2+ on the left side. Heart sounds: Normal heart sounds, S1 normal and S2 normal. No murmur heard. Pulmonary: Effort: Pulmonary effort is normal. No respiratory distress. Breath sounds: Normal breath sounds. Abdominal: General: Bowel sounds are normal. Palpations: Abdomen is soft. Tenderness: There is no abdominal tenderness. Musculoskeletal: Right lower leg: No edema. Left lower leg: No edema. Skin: General: Skin is warm and dry. Neurological: Mental Status: She is alert and oriented to person, place, and time. Psychiatric: Behavior: Behavior is cooperative. PERTINENT TESTING AVAILABLE IN [facility] (WITHIN THE PAST 2 YEARS): EK07/04/2025 Echo: No results found for this or any previous visit from the past 913 days. No results found for this or any previous visit from the past 913 days. No results found. Stress test: No results found for this or any previous visit from the past 913 days. No results found. Holter: No results found for this or any previous visit from the past 913 days. No results found. Cardiac catheterization: No results found. Carotids: No results found. Pulmonary function testing: No results found. RECENT LABS: Lab Results Component Value Date WBC 4.8 11/12/2023 HGB 12.9 11/12/2023 HCT 38.5 11/12/2023 PLT 205 11/12/2023 SODIUM 138 06/24/2023 K 3.7 06/24/2023 CL 103 06/24/2023 CO2 27 06/24/2023 CALCIUM 9.3 06/24/2023 ALKPHOS 54 06/24/2023 ALBUMIN 4.4 06/24/2023 GLU 105 (H) 07/25/2023 ALT 14 06/24/2023 AST 22 06/24/2023 CREATININE 0.90 11/12/2023 BUN 23 06/24/2023 GFR >60 02/08/2020 GFR >60 02/08/2020 EGFR 71 11/12/2023 *Please note that labs listed above are the most recent lab values available in [facility] at the time the H&P was signed. ASSESSMENT / DIAGNOSIS: Chronic sialoadenitis PLAN: Karen Zaidi is scheduled for SIALENDOSCOPY - Right, SIALOLITHOTOMY - open sialolithotomy with or without stent placement(psb) - Right, EXCISION GLAND SUBMANDIBULAR(psb) - Right with Dr. Godwin on 08/17/2025. ED Read 08/04/25 1307 documented in this encounterKindred [facility]10-23-[facility]25 Instructions* Patient Instructions* Quita Castillo RN - 08/04/2025 12:15 PM EDT Your surgery/procedure is scheduled at [facility] on 08-17-2025. Arrival Time: You will be contacted with an arrival time. [facility] Address: [address] [place] [address], [address] [place] [address] in the Emergency Center Parking lot. Report to the front office coordinator in the Emergency/Surgery Registration lobby of the hospital. Notify your SURGEON if you develop any illness such as a cold, cough, fever, sore throat, vomiting or are hospitalized between now and your surgery. Please call Pre-Admission Clinic at [phone] if you have any questions prior to surgery. For questions the morning of surgery, call the Pre-op Department at [phone]. Medication Instructions (Do not stop your medications without consulting the prescribing physician). Take the following medications the morning of surgery with a sip of water: NONE Diabetic or Weight loss medications: N/A Take inhalers as prescribed the morning of surgery. Due to the risk associated with these medications. If these medications are not held per instruction below, your surgery is at an increased risk for cancellation SGLT2 Medications- Hold 3 days prior to surgery: Jardiance, Empagliflozin, Farxiga, Dapagliflozin, Invokana, Canagliflozin, Trijardy, Synjardy GLP-1 Medications (Injection or Pill)- If taken daily hold day of surgery. If taken weekly, hold 1 week prior to surgery: Adlyxin, Byetta, Bydureon, Ozempic, Rybelsus,Trulicity, Victoza, Wegovy, Lixisenatide, Exenatide, Semaglutide, Dulaglutide, Liraglutide GIP/GLP-1(Injection or Pill)- If taken daily hold day of surgery. If taken weekly, hold 1 week prior to surgery: Bela . Blood thinners: Please contact your prescribing physician regarding a stop/hold date for these medications. Medications such as Coumadin, Heparin, Aspirin, Plavix, Eliquis, Pradaxa Diabetics: If you take insulin, contact your prescribing doctor for instructions on how to manage this the night before and the morning of surgery. Non-steriodal Anti-Inflammatory Drugs (NSAIDS)- Hold 3 days prior to surgery unless otherwise directed by your surgeon. Vitamins/Herbal Products: You may continue to take your prescribed vitamins such as potassium, iron, vitamin B, vitamin C, or multivitamin unless specifically instructed by your surgeon to hold. STOPtaking all herbal products/teas one week prior to your surgery. Marijuana: Stop marijuana 72 hours prior to surgery, stop CBD oil 48 hours prior to surgery. If you have been given bowel prep instructions by your surgeon, please call the surgeon's office with any questions about these instructions. What do I do the day of Surgery? Age 2 through adult - Stop all solids by midnight, You may have a smalll amount of clear liquids up to 2 hours before surgery, unless otherwise instructed by your surgeon Clear liquids are: water, sports drinks such as Gatorade or G2, or apple juice. You may NOT have: tube feedings, dairy products, alcoholic beverages, orange juice, or any liquids with solids or pulp in it If applicable, shower again with CHG soap the morning of your surgery. What do I need to do to [...] blood and may cause bleeding problems during surgery Smoking increases the risk of breathing problems after surgery. It also increases your risk for infection, and may delay healing. Do not use lotions, creams, powders, perfume, make up, cologne or after-shaves day of surgery. Remove ALL jewelry including wedding rings, body piercings, hair extensions that contain metal, nail burmese, make-up, and contact lens. You may brush your teeth the morning of surgery, but do not swallow the water. Wear your dentures and partial plates to the hospital (no adhesive). Shower the night before your procedure. If applicable, use the CHG (chlorhexidine gluconate) soap or wipes. Please place clean linens on your bed after showering. Do not allow your pets in your bed. Please be advised, [facility] has transitioned to a cashless payment system. What should I bring to the hospital? Eyeglass or contact lens case If you [...] mouth. Repeat this three times and then cough. Coughing helps to clear your lungs. If you have had a surgery with an incision into your abdomen or chest, press gently against your incision with a pillow or a folded blanket when you cough. Please be aware - it may not be gates to cough following some types of surgeries involving the eyes,ears, sinuses and throat. Always follow your doctor's instructions. LEG EXERCISES These exercises help promote good circulation and [...] hours during the day and early evening. Surgical Site Infection Prevention What is a Surgical Site Infection (SSI)? Infection can happen to the area of the body where surgery is done. This is called a surgical site infection (SSI). A SSI does not happen very often. What are some of the things that [...] Use the soap as you were told. Place clean sheets on your bed the night before surgery and do not allow your pets in your bed. If you smoke or vape, stop or cut down. This creates a stress response in your body that increases inflammation, constricts blood vessels and deprives your tissues of oxygen. After surgery, this stress response disrupts the travel of oxygen, nutrients, and blood to your surgical site, interfering with the wound healing process. It also decreases the ability of your cells to fight infection. Ask your doctor about ways to quit. If you have high blood sugars or diabetes please talk with your doctor about having healthy blood sugar levels to promote healing. Do not shave near where you will have surgery. Shaving can irritate the skin and make it easier to get and infection. After surgery: Be sure that the doctors and nurses clean their hands before and after touching you. Be sure your family and friends clean their hands before and after visiting you. Do not be afraid to remind them. Always wash your hands before touching your incisional area. * Care for your wound at home as told by your doctor or nurse * Call your doctor right away if you have fever, redness, increased pain, or drainage at the surgery site. Can SSIs be treated? Antibiotics are used to treat SSI. Some patients may need another surgery to treat the infection. The doctor will discuss treatment options with you. Further questions? Contact the doctor, nurse or the Infection Prevention and Control department if you have any questions. PATIENT RIGHTS AND RESPONSIBILITIES As a patient at [facility], you have the right to: Receive medical care and be informed of who is taking care of you Be treated with dignity and respect Have a family member/telephone sales representative of choice and your physician [...] of hospital charges and payment methods Patient/patient telephone sales representative responsibilities are to: Provide information [...] as promptly as possible documented in this encounterKindred Hospital [facility]10-17-2025 History of Present illness Narrative* Sarah Godwin MD - 07/29/2025 10:00 AM EDT [facility] - [facility]NT [address] [place] [address], [address] [place] [phone] SUBJECTIVE: Patient ID: Karen Zaidi is a 69 y.o. female presents today for Chief Complaint Patient presents with chronic sialoadenitis HPI: Karen Zaidi is a 69 y.o. female seen to follow-up chronic sialoadenitis. She was last seen in the office on 07/26/24. She underwent dilation and irrigation of the right submandibular duct on 11/24/23. She has been experiencing post-nasal drainage and pain in her right salivary gland. She has been using Flonase Sensimist and nasal saline rinse for her nasal symptoms for years. She does not have pus draining from the sinuses. She also has a consistent bad taste in her mouth. She was hospitalized and diagnosed with CML in May 2025. She is currently undergoing treatment for this with an oncologist out of [place]. HISTORY: Past Medical History: Diagnosis Date AAA (abdominal aortic aneurysm) Angina pectoris Aortic aneurysm Arthritis Back pain arthritis Cataract Chest pain Chronic headache Sep 2019 Chronic kidney disease stone Chronic rhinitis Coronary artery disease Dental disease implants Dizziness Dysphagia, pharyngeal phase Wrangell's syndrome Fractures left arm Hypertension Sep 2019 Hypothyroidism Jugular vein stenosis Neuromuscular disorder (CMS-HCC) Neck,back Nutcracker phenomenon of renal vein 2022 Osteoporosis Pelvic congestion syndrome Peripheral vascular disease Scoliosis Seasonal allergies Shingles Submandibular gland swelling 11/12/2023 Varicella 1960 Visual impairment glasses Past Surgical History: Procedure Laterality Date APPENDECTOMY 1979 CATARACT EXTRACTION Bilateral 2017 CHOLECYSTECTOMY COLONOSCOPY COLONOSCOPY N/A 07/23/2018 Performed by Orquidea Salcedo DO at [facility] COLONOSCOPY DIAGNOSTIC / SCREENING N/A 07/11/2025 Performed by Orquidea Salcedo DO at [facility] DENTAL SURGERY 07/2013 implants Diagnostic cerebral angiogram N/A 03/31/2020 Performed by Melissa Morillo MD at [facility] CARDIAC CATH LABS DIAGNOSTIC VENOGRAM OF IVC AND ILEOCABLE, LEFT RENAL VEIN, SELECTIVE LEFT OVARIAN VEIN CONTRAST ANDIVUS VENOGRAMS N/A 07/25/2023 Performed by Erendira Armijo DO at [facility] SPECIAL PROC dilation rt submandibular duct and steroid irrigation Right 11/24/2023 Performed by Sarah Godwin MD at [facility] 2017 cataracts KIDNEY STONE SURGERY 2018? KNEE CARTILAGE SURGERY MOLE REMOVAL 11/10/2023 right breast NEPHRECTOMY TRANSPLANTED ORGAN 03/02/2024 OTHER SURGICAL HISTORY 08/31/2020 cranial base ( cranial styloidectomy) 05/2020 also OTHER SURGICAL HISTORY 06/18/2023 venogram OTHER SURGICAL HISTORY 09/09/2023 DIagnostic venogram TUBAL LIGATION Vascular Invasive Diagnostic venogram with IVUS and the ability to measure pressure gradients Bilateral 06/18/2023 Performed by Erendira Armijo DO at [facility] CARDIAC CATH LABS Family History Problem Relation Age of Onset Aneurysm Mother Early Mother Brain aneurysm Hypertension Mother Stroke Mother Brain aneurysm Vision loss Mother Aneurysm Father Early Father aortic aneurysm Heart disease Father Hypertension Father Stroke Brother Arthritis Brother Knee replacements Early Brother Heart attack Heart disease Brother Hypertension Brother Stroke Brother mild Asthma Maternal Aunt Hypertension Maternal Aunt Asthma Son Vision loss Son Colon cancer Maternal Uncle Diabetes Maternal Uncle Heart disease Paternal Uncle Hypertension Paternal Uncle Hypertension Maternal Aunt Stroke Maternal Aunt Hypertension Paternal Uncle Stroke Paternal Uncle Hypertension Paternal Uncle Vision loss Son Anesthesia problems Neg Hx Social History Socioeconomic [...] Social History Narrative Not on file Social Drivers of Health Financial Resource Strain: Not on [...] Protein (Honey Bee) Rash Codeine GI Disturbance Other Reaction(s): GI intolerance Other Reaction(s): Comment:upset stomach Doxycycline Hyclate Rash Current Outpatient Medications Medication Sig Dispense Refill atorvastatin (LIPITOR) 20 mg tablet Take 1 tablet (20 mg total) by mouth in the morning. 90 tablet 0 CALCIUM CARBONATE-VITAMIN D3 ORAL Take 600 mg by mouth in the morning. cyclobenzaprine (FLEXERIL) 5 mg tablet Take 2 tablets (10 mg total) by mouth as needed in the morning and 2 tablets (10 mg total) as needed at noon and 2 tablets (10 mg total) as needed in the evening for muscle spasms. dasatinib (SPRYCEL) 100 mg chemo tablet 1 tablet fluticasone (FLONASE) 50 mcg/actuation nasal spray Administer 1 spray into each nostril in the morning. HYDROcodone-acetaminophen (NORCO) 5-325 mg per tablet Take [...] by mouth nightly Indications: seasonal runny nose. VITAMIN B COMPLEX ORAL Take by mouth. nystatin (MYCOSTATIN) 100,000 unit/mL suspension Take 5 mL (500,000 Units total) by mouth in the morning and 5 mL (500,000 Units total) at noon and 5 mL (500,000 Units total) in the evening and 5 mL (500,000 Units total) before bedtime. (Patient not taking: Reported on 07/29/2025) No current facility-administered medications for this visit. REVIEW OF SYSTEMS: Review of Systems HENT: Positive for sore throat (right), trouble swallowing and voice change (raspy). Negative for congestion and postnasal drip. Respiratory: Negative for cough. Neurological: Negative for dizziness and headaches. Data Reviewed: PHYSICAL EXAMINATION: Temp 36.4 C (97.6 F) Ht 170.2 cm (5' 7.01 ) Wt 60.8 kg (134 lb) BMI 20.98 kg/m Constitutional: General Appearance: Healthy, alert, cooperative, and in no distress Ability to Communicate: Voice abnormal: Hoarse Head/Face: Inspection of Head/Face: Normocephalic without obvious abnormality, Atraumatic appearance, and Sinuses non-tender Facial Nerve: Facial nerve symmetrical and intact Salivary Glands: Parotid Gland: Normal, Submandibular Gland: Abnormal bilateral and ptotic, and Sublingual Gland: Normal Eyes: No gross abnormalities, EOMI, and No Nystagmus Ears: External Ear: Normal bilateral External Auditory Canal: Normal bilateral Tympanic Membranes: Normal bilateral Middle Ear: Normal bilateral Hearing: Normal bilateral Nose: External Nose: Normal Septum: Midline septum Mucosa/Turbinates: Normal inferior turbinate and Abnormal bilateral Mucosal dryness mild Oral Cavity: Normal lips, Normal teeth, Normal gums, Normal floor of mouth, Normal oral mucosa, Normal anterior tongue, and dental implants Oropharynx: Normal mucosa, Normal soft palate, Normal hard palate, Normal tonsils, Normal Vallecula, and long uvula Nasopharynx: Refer to procedure note Hypopharynx: Refer to procedure note Larynx: Refer to procedure note TMJ: No pain, crepitus, or trismus right and left Neck: Neck supple, No adenopathy, Thyroid normal in size without nodules or tenderness, No palpableneck masses, and Carotids normal Respiratory: No stridor, Normal respiratory effort and No use of accessory muscles Cardiovascular: Regular rate and Regular rhythm Neurologic: Patient is alert and oriented x3 with normal affect and grossly normal cranial nerves Procedure Note: Flexible Laryngoscopy Pre-operative Diagnosis: Hoarseness Post-operative Diagnosis: same Surgeon: Sarah Godwin MD Anesthesia: Oxymetazoline and 4% Lidocaine Endoscopy Type: Flexible Laryngoscopy Procedure Details: The procedure was necessary based on the diagnosis noted above to examine the structures of the hypopharynx and larynx and on the inability to adequately examine those structures using other examination techniques such as mirror exam. The patient was placed in the sitting position. After topical anesthesia and decongestant applied, a flexible laryngoscope was passed. The nasal cavities, nasopharynx, oropharynx, hypopharynx, and larynx (including the epiglottis, base of tongue, false cords, truecords, arytenoids, post-cricoid region, and the pyriform sinuses) were all examined. Vocal cords were examined during respiration and phonation. The structures examined during this procedure were normal unless specifically noted below. The following findings were noted: Findings: Right: Mild dryness along nasal septum. Normal middle turbinate and middle meatus. Posterior septalspur. Left: Mild dryness along nasal septum. Dryness along middle turbinate. Normal middle meatus. Structurally normal nasopharynx. Normal base of tongue and epiglottis. Mild thinning and bowing of both true vocal cords. Normal pyriform sinuses. Mild interarytenoid edema. Normal arytenoid cartilages. Condition: The procedure was successful and and tolerated well. Complications: None ASSESSMENT/PLAN: Sheri was seen today for chronic sialoadenitis. Diagnoses and all orders for this visit: Chronic sialoadenitis - CT neck soft tissue with contrast; Future Hoarseness Vasomotor rhinitis - ipratropium (ATROVENT) 42 mcg (0.06 %) nasal spray; Administer 2 sprays into each nostril 3 (three) times a day as needed for rhinitis. Today's examination findings were discussed with the patient/patient's parent or guardian. Recommendations for treatment were provided including the following: - Flexible laryngoscopy was performed today in the office. Results were reviewed and all questions and concerns were addressed. - Recommend using 2 sprays of ipratropium bromide into each nostril up to three times a day as needed for vasomotor rhinitis. - Recommend completing a CT neck for further evaluation of sialoadenitis and for surgical planning. - Continue heat and massage for pain over the salivary gland. If swelling persists, call the office. - I discussed with the patient risk, benefits, and alternatives to sialoendoscopy/possible open sialolithotomy with or without stent placement/possible right gland excision. We discussed the risks ofbleeding, infection, nerve injury, edema requiring intervention up to and including intubation or tracheostomy, failure of the procedure to achieve the desired result, and the need for future procedures. The patient verbalized understanding of the risks and would like to proceed. Patients questionsand concerns were addressed. Patient may call [facility] at [phone] to schedule surgery. The patient will contact my office if there are any additional questions or concerns: . Non-emergent messages received through Fundation may take up to 2 business days for a response. Scribe Statement: Scribed for and in the presence of Sarah Godwin MD by Alisa Guardado (Rogelioibe). Alisa Guardado 07/29/2025 10:39 AM Provider Statement: I Sarah Godwin MD personally performed the services described in the documentation as described by the above named scribe in my presence. It is both accurate and complete at the time of final signature. Dr. Sarah Godwin 07/29/2025 1:00 PM Electronically signed by Sarah Godwin MD Please note that parts of this chart were generated using voice recognition M*Modal dictation software. Although every effort was made to ensure the accuracy of this automated front office coordinator, some errors in front office coordinator may have occurred. documented in this encounterLicking Memorial HospitalFutubank Beaumont [id number] Instructions* Patient Instructions* Alisa Guardado - 07/29/2025 10:00 AM EDT Today's examination findings were discussed with the patient/patient's parent or guardian. Recommendations for treatment were provided including the following: - Flexible laryngoscopy was performed today in the office. Results were reviewed and all questions and concerns were addressed. - Recommend using 2 sprays of ipratropium bromide into each nostril up to three times a day for vasomotor rhinitis. - Recommend completing a CT neck for further evaluation of sialoadenitis. Ordered today. - Continue heat and massage for pain over the salivary gland. If swelling persists, call the office. - I discussed with the patient risk, benefits, and alternatives to sialoendoscopy/possible open sialolithotomy with or without stent placement/possible right gland excision. We discussed the risks ofbleeding, infection, nerve injury, edema requiring intervention up to and including intubation or tracheostomy, failure of the procedure to achieve the desired result, and the need for future procedures. The patient verbalized understanding of the risks and would like to proceed. Patients questionsand concerns were addressed. Patient may call [facility] at [phone] to schedule surgery. The patient will contact my office if there are any additional questions or concerns: . Non-emergent messages received through Fundation may take up to 2 business days for a response. documented in this encounterPorter Medical CenterThe Guild House [id number] NoteHNO ID: [id number] Author: TRAN TRAN RN Service: ? Author Type: Registered Nurse Type: Progress Notes Filed: 07/22/2025 11:36 Note Text: 07/22/2025 11:35 AM IV Access: IV IV Site: left Forearm IV GAUGE 24 gauge IV Removal Date 07-21-25 Time 1610 Reactions: WNL Order reviewed by nurse:yes Medications: Definity - dosage 6 ml Reaction: [facility]09-25-2025 NoteHNO ID: [id number] Author: AUGUSTINA VARGAS MD Service: ? Author Type: Physician Type: Progress Notes Filed: 07/08/2025 10:22 Note Text: [facility] SECTION FOR CHRONIC PELVIC PAIN OUTPATIENT VISIT DATE 07/07/2025 OUTPATIENT VISIT TYPE FOLLOW UP CHIEF COMPLAINT follow up HISTORY OF PRESENT ILLNESS Karen is a 69 year old female who is in today for follow up. Since last visit: Patient states that back in february she was doing great and didn't need TPIs /Botox at that time. Then pain increased and patient had to go to the ED due to pain. 06/06/25 went to the ER, she was getting ready to travel the next step She did feel some achiness on the L side She had done some Went to the ER for L sided and felt typical pelvic pain In the ER and wbc was 28, She did have knee steroid injection Had 2 ct scans which were normal , no source of infection found Has f/u w hematology + Intensity of pain: mild to moderate Average Pain level: 4 on a scale of 0-10 Emergency room visits for pain since last visit: yes Level of physical activity and mobility: not as good as it used to be Quality of sleep: okay Mood: mostly okay Side effects of medications for pain: no SUMMARY FROM LAST VISIT Date: 03/08/2025 ASSESSMENT/PLAN Encounter Diagnosis ICD-10-CM 1. High-tone pelvic [...] No specialty comments available. PHYSICAL EXAM BP 146/80 Ht 170.2 cm (5' 7 ) Wt 63.6 kg (140 lb 3.4 oz) LMP (LMP Unknown) BMI 21.96 kg/m? Physical Exam General: The patient is a well-appearing female in no acute distress. Examination Abd llq pain Abdominal myofacial trigger points - + Uterus neg Retrocervixneg Adnexa neg Pelvic Floor Musculature RIGHT SIDED Pubococcygeus 0 Iliococcygeus 0 Coccygeus 0 Obturator 0 LEFT SIDED Pubococcygeus2 Iliococcygeus 2 Coccygeus 2 Obturator 2 (Pain Scale 1 to 3, 3= extreme) RV exam - deferred LABS/IMAGING: ASSESSMENT Encounter Diagnosis ICD-10-CM 1. Trigger point of abdomen R10.9 TRIGGER POINT INJECTION MULTI 1-2 MUSCLE GR BUPivacaine HCl 25 mg injection (SENSORCAINE) 2. High-tone pelvic floor dysfunction M62.89 3. Myalgia, other site M79.18 onabotulinum toxin type A 100 Units injection (BOTOX) TRIGGER POINT INJECTION MULTI 1-2 MUSCLE GR BUPivacaine HCl 25 mg injection (SENSORCAINE) PLAN L botox and L abd TPI done Fu as needed Patient verbalized understanding of the plan of care and all questions were answered to her stated satisfaction. Written and verbal health teaching given to patient, patient verbalizes understanding and agrees with treatment plan. I personally interviewed, confirmed and edited the above information if obtained by others. Augustina Vargas MD Section of Chronic Pelvic Pain 07/07/2025 2:31 PM Procedure charge only ORDERS PLACED . 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 Vaginal botox done on: 07/06/2024, 12/08/2024, L side 06/2025 2. Abdominal TPI done on: 07/06/2024, 12/08/2024, L side 06/2025 Nonhormonal Medications 1. Flexeril 2. gabapentin 300 mg 3. motrin Hormonal medications (IUD, control pill, [facility]) 1. Esterase cream Services (GI, urology, pain psych,PFPT) 1. PFPT PROCEDURE UNIVERSAL PROTOCOL / SAFETY CHECKLIST Procedure to be Performed: abdominal trigger point injections and vaginal botox injections Sign In: A Moment of CARE was completed. Appropriate PPE (Personal Protective Equipment) worn by all providers involved with the procedure. Special equipment not required. Patient/Surrogate Stated/Verified: Patient name, Date of , Relevant allergies, and The intended procedure Time Out: Relevant labs, photos, and/or imaging studies have been reviewed. (more content not included)...[facility]09-24-2025 Miscellaneous Notes* Perioperative Nursing Note - Stacia Jaime RN - 07/06/2025 2:30 PM EDT Preoperative Education Checklist- General Surgery date: 07/11/25 Surgery time: 914 Arrival time: 714 1. Bring a photo ID and your insurance card with you the day of surgery. You will check in at the main lobby of the [facility]- registration desk is straight ahead as soon as you walk in. Tell them you are here for surgery. 2. If you have a Living Will/Durable Power of Paper Baling Machine Operator for Health Care that is not on file here, please bring a copy the day of surgery. 3. Please shower/bathe the night before surgery with the provided soap or wipes. Do not shower the morning of surgery- you will do use wipes when you arrive here at the hospital before getting into your surgical gown. Do not shave the area of your procedure for 2 days prior to your surgery. 4. NO powder, lotion, perfume/cologne, aftershave, make-up, deodorant, or hair products after you have bathed. 5. NO nail burmese/acrylic on at least one finger. If you are having a hand, wrist or foot surgery then all nail burmese and artificial/acrylic nails must be removed from that hand or foot. 6. Avoid ALL Aspirin and non-steroidal anti-inflammatory drugs and certain vitamins (Ibuprofen, Advil, Aleve, Excedrin, Meloxicam, Celebrex, fish/krill oil, etc.) for 7 days prior to surgery as instructed by your surgeon and/or your prescribing doctor. Tylenol IS ALLOWED. If you are on Ticlid, Xarelto, Eliquis, Pradaxa, Plavix or Coumadin, please check with your prescribing doctor for instructions for when to stop them. 7. If you use an inhaler, continue to use it routinely. 8. Nothing to eat or drink (not even water, gum, mints, or hard candy!) AFTER midnight prior to your surgery. 9. Take only medications that you are instructed to on the morning of surgery with a TINY SIP OF WATER. 10. Choose a responsible adult that will be able to drive you home when you are discharged from your hospital stay for your surgery and can stay with you in your home for 24 hours after your procedure. You must NOT drive any vehicle or operate any machinery for 24 hours after surgery. 11. When you dress for your appointment, please wear loose fitting clothing that is appropriate to accommodate your surgical area procedure. BRING WITH YOU ANY DEVICES YOU MAY NEED: ROSSANA hose, ice machine, sling/swath, brace or special shoe, oversized zip-up or button up shirt, CPAP machine if staying overnight. 12. Do NOT wear jewelry, watches, or any piercings or metal for surgery- leave these valuables and money at home. 13. Do NOT wear contact lenses for surgery- glasses are okay if needed. 14. The anesthesiologist will talk with you the day of surgery and will ask you to sign a Consent Form. 15. Refrain from smoking or any type of tobacco use for at least 8 hours and marijuana for 24 hoursprior to arrival for your surgery. 16. Notify your surgeon if you develop any illness before your surgery. 17. If you are staying overnight, please DO NOT BRING your home medications with you. 18. If you have any questions prior to surgery, please call the Preadmission Testing office at [phone], Mon.-Fri. 7 a.m.-3 p.m. Leave a voicemail if needed. Pre-Surgery Instructions: Medication Instructions nystatin (MYCOSTATIN) 100,000 unit/mL suspension Stop taking 0 days prior to procedure atorvastatin (LIPITOR) 20 mg tablet Stop taking 0 days prior to procedure CALCIUM CARBONATE-VITAMIN D3 ORAL Stop taking 0 days prior to procedure cyclobenzaprine (FLEXERIL) 5 mg tablet Stop taking 0 days prior to procedure fluticasone (FLONASE) 50 mcg/actuation nasal spray Stop taking 0 days prior to procedure gabapentin (NEURONTIN) 300 mg capsule Stop taking 0 days prior to procedure HYDROcodone-acetaminophen (NORCO) 5-325 mg per tablet Stop taking 0 days prior to procedure ibuprofen (ADVIL,MOTRIN) 200 mg tablet Stop taking 0 days prior to procedure loratadine-pseudoephedrine (LORATADINE-D) 5-120 mg tablet extended release 12 hr Stop taking 0 daysprior to procedure montelukast (SINGULAIR) 10 mg tablet Stop taking 0 days prior to procedure sod sulf-pot chloride-mag sulf 1.479-0.188- 0.225 gram tablet Stop taking 0 days prior to procedure VITAMIN B COMPLEX ORAL Stop taking 0 days prior to procedure documented in this encounterKind[facility]25 Nurse Note* Perioperative Nursing Note - Stacia Jaime RN - 07/06/2025 2:30 PM EDT Preoperative Education Checklist- General Surgery date: 07/11/25 Surgery time: 914 Arrival time: 714 1. Bring a photo ID and your insurance card with you the day of surgery. You will check in at the main lobby of the [facility]- registration desk is straight ahead as soon as you walk in. Tell them you are here for surgery. 2. If you have a Living Will/Durable Power of Paper Baling Machine Operator for Health Care that is not on file here, please bring a copy the day of surgery. 3. Please shower/bathe the night before surgery with the provided soap or wipes. Do not shower the morning of surgery- you will do use wipes when you arrive here at the hospital before getting into your surgical gown. Do not shave the area of your procedure for 2 days prior to your surgery. 4. NO powder, lotion, perfume/cologne, aftershave, make-up, deodorant, or hair products after you have bathed. 5. NO nail burmese/acrylic on at least one finger. If you are having a hand, wrist or foot surgery then all nail burmese and artificial/acrylic nails must be removed from that hand or foot. 6. Avoid ALL Aspirin and non-steroidal anti-inflammatory drugs and certain vitamins (Ibuprofen, Advil, Aleve, Excedrin, Meloxicam, Celebrex, fish/krill oil, etc.) for 7 days prior to surgery as instructed by your surgeon and/or your prescribing doctor. Tylenol IS ALLOWED. If you are on Ticlid, Xarelto, Eliquis, Pradaxa, Plavix or Coumadin, please check with your prescribing doctor for instructions for when to stop them. 7. If you use an inhaler, continue to use it routinely. 8. Nothing to eat or drink (not even water, gum, mints, or hard candy!) AFTER midnight prior to your surgery. 9. Take only medications that you are instructed to on the morning of surgery with a TINY SIP OF WATER. 10. Choose a responsible adult that will be able to drive you home when you are discharged from your hospital stay for your surgery and can stay with you in your home for 24 hours after your procedure. You must NOT drive any vehicle or operate any machinery for 24 hours after surgery. 11. When you dress for your appointment, please wear loose fitting clothing that is appropriate to accommodate your surgical area procedure. BRING WITH YOU ANY DEVICES YOU MAY NEED: ROSSANA hose, ice machine, sling/swath, brace or special shoe, oversized zip-up or button up shirt, CPAP machine if staying overnight. 12. Do NOT wear jewelry, watches, or any piercings or metal for surgery- leave these valuables and money at home. 13. Do NOT wear contact lenses for surgery- glasses are okay if needed. 14. The anesthesiologist will talk with you the day of surgery and will ask you to sign a Consent Form. 15. Refrain from smoking or any type of tobacco use for at least 8 hours and marijuana for 24 hoursprior to arrival for your surgery. 16. Notify your surgeon if you develop any illness before your surgery. 17. If you are staying overnight, please DO NOT BRING your home medications with you. 18. If you have any questions prior to surgery, please call the Preadmission Testing office at [phone], Mon.-Fri. 7 a.m.-3 p.m. Leave a voicemail if needed. Pre-Surgery Instructions: Medication Instructions nystatin (MYCOSTATIN) 100,000 unit/mL suspension Stop taking 0 days prior to procedure atorvastatin (LIPITOR) 20 mg tablet Stop taking 0 days prior to procedure CALCIUM CARBONATE-VITAMIN D3 ORAL Stop taking 0 days prior to procedure cyclobenzaprine (FLEXERIL) 5 mg tablet Stop taking 0 days prior to procedure fluticasone (FLONASE) 50 mcg/actuation nasal spray Stop taking 0 days prior to procedure gabapentin (NEURONTIN) 300 mg capsule Stop taking 0 days prior to procedure HYDROcodone-acetaminophen (NORCO) 5-325 mg per tablet Stop taking 0 days prior to procedure ibuprofen (ADVIL,MOTRIN) 200 mg tablet Stop taking 0 days prior to procedure loratadine-pseudoephedrine (LORATADINE-D) 5-120 mg tablet extended release 12 hr Stop taking 0 daysprior to procedure montelukast (SINGULAIR) 10 mg tablet Stop taking 0 days prior to procedure sod sulf-pot chloride-mag sulf 1.479-0.188- 0.225 gram tablet Stop taking 0 days prior to procedure VITAMIN B COMPLEX ORAL Stop taking 0 days prior to procedure [facility]09-[facility]25 History of Present illness Narrative* Augustina Null, GEAR AND SPLINE GRINDER-COLORED LIQUID PLASTIC APPLIER - 07/05/2025 11:00 AM EDT Images from the original note were not included. Chief Complaint: LLQ pain History of Present Illness Karen Zaidi is a 69 y.o. female who presents to the office for left lower quadrant pain. 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 She follows with gynecology and receives injections. She has been doing really well since February until this pain began. She presented to the [place] ER on 06/06/2025. Per patient, CT abdomen and pelvis was normal, however, she had leukocytosis so they admitted her. During hospitalization they could not find any reason for her leukocytosis. She will be seeing hematology. She denies fever. She denies nausea /vomiting. She continues to have left lower quadrant pain intermittently. She also endorses constipation and this morning she had an episode of bright red blood per her rectum when she wiped. She believes this was due to a hemorrhoid. Her last colonoscopy was in [address] Salcedo. She had 4 hyperplastic polyps removed in the sigmoid colon. Review of Systems Constitutional: Negative for fever and unexpected weight change. HENT: Negative for trouble swallowing. Respiratory: Negative for shortness of breath. Cardiovascular: Negative for chest pain. Gastrointestinal: Positive for abdominal pain, constipation and blood in stool. Negative for nausea, vomiting and diarrhea. Genitourinary: Negative for dysuria and difficulty urinating. Musculoskeletal: Negative for gait problem. Skin: Negative for rash and wound. Neurological: Negative for dizziness, weakness and light-headedness. Hematological: Does not bruise/bleed easily. Psychiatric/Behavioral: Negative for confusion. Past Medical History: Diagnosis Date AAA (abdominal aortic aneurysm) Angina pectoris Aortic aneurysm Arthritis Back pain arthritis Cataract Chest pain Chronic headache Sep 2019 Chronic kidney disease stone Chronic rhinitis Coronary artery disease Dental disease implants Dizziness Dysphagia, pharyngeal phase Wrangell's syndrome Fractures left arm Hypertension Sep 2019 Jugular vein stenosis Neuromuscular disorder (CMS-HCC) Neck,back Nutcracker phenomenon of renal vein 2022 Osteoporosis Pelvic congestion syndrome Peripheral vascular disease Scoliosis Seasonal allergies Shingles Submandibular gland swelling 11/12/2023 Varicella 1960 Visual impairment glasses Past Surgical History: Procedure Laterality Date APPENDECTOMY 1979 CATARACT EXTRACTION Bilateral 2017 CHOLECYSTECTOMY COLONOSCOPY COLONOSCOPY N/A 07/23/2018 Performed by Orquidea Salcedo DO at [facility] D[facility] SUR[facility] 07/2013 implants Diagnostic cerebral angiogram N/A 03/31/2020 Performed by Melissa Morillo MD at [facility]IAC CATH LABS DIAGNOSTIC VENOGRAM OF IVC AND ILEOCABLE, LEFT RENAL VEIN, SELECTIVE LEFT OVARIAN VEIN CONTRAST ANDIVUS VENOGRAMS N/A 07/25/2023 Performed by Erendira Armijo DO at [facility] SPECIAL PROC dilation rt submandibular duct and steroid irrigation Right 11/24/2023 Performed by Sarah Godwin MD at [facility] EYE SURGERY 2018 cataracts KIDNEY STONE SURGERY 2018? KNEE CARTILAGE SURGERY MOLE REMOVAL 11/10/2023 right breast NEPHRECTOMY TRANSPLANTED ORGAN 03/02/2024 OTHER SURGICAL HISTORY 08/31/2020 cranial base ( cranial styloidectomy) 05/2020 also OTHER SURGICAL HISTORY 06/18/2023 venogram OTHER SURGICAL HISTORY 09/09/2023 DIagnostic venogram TUBAL LIGATION Vascular Invasive Diagnostic venogram with IVUS and the ability to measure pressure gradients Bilateral 06/18/2023 Performed by Erendira Armijo DO at [facility] CARDIAC CATH LABS Allergies Allergen Reactions Clindamycin Hives, Shortness Of Breath and Rash Bee Venom Protein (Honey Bee) Rash Codeine GI Disturbance Other Reaction(s): GI intolerance Other Reaction(s): Comment:upset stomach Doxycycline Hyclate Rash Current Outpatient Medications: atorvastatin (LIPITOR) 20 mg tablet, Take 1 tablet (20 mg total) by mouth in the morning., Disp: 90tablet, Rfl: 0 CALCIUM CARBONATE-VITAMIN D3 ORAL, Take 600 mg by mouth in the morning., Disp: , Rfl: cyclobenzaprine (FLEXERIL) 5 mg tablet, Take 2 tablets (10 mg total) by mouth as needed in the morning and 2 tablets (10 mg total) as needed at noon and 2 tablets (10 mg total) as needed in the evening for muscle spasms., Disp: , Rfl: fluticasone (FLONASE) 50 mcg/actuation nasal spray, Administer 1 spray into each nostril in the morning., Disp: , Rfl: ibuprofen (ADVIL,MOTRIN) 200 mg tablet, Take 2 tablets (400 mg total) by mouth every 6 (six) hours as needed for pain., Disp: , Rfl: montelukast (SINGULAIR) 10 mg tablet, Take 1 tablet (10 mg total) by mouth nightly Indications: seasonal runny nose., Disp: , Rfl: gabapentin (NEURONTIN) 300 mg capsule, Take 1 capsule (300 mg total) by mouth 3 (three) times a dayIndications: neuropathic pain., Disp: , Rfl: HYDROcodone-acetaminophen (NORCO) 5-325 mg per tablet, Take 1 tablet by mouth every 6 (six) hours as needed., Disp: , Rfl: loratadine-pseudoephedrine (LORATADINE-D) 5-120 mg tablet extended release 12 hr, Take 1 tablet by mouth every 12 (twelve) hours. 1/2 tablet- keeps right ear open, Disp: , Rfl: sod sulf-pot chloride-mag sulf 1.479-0.188- 0.225 gram tablet, Please see instructional sheet givenby physicians office., Disp: 24 tablet, Rfl: 0 VITAMIN B COMPLEX ORAL, Take by mouth., Disp: , Rfl: Social History Socioeconomic History Marital status: Spouse [...] Social History Narrative Not on file Social Drivers of Health Financial Resource Strain: Not on file Food Insecurity: No Food Insecurity (11/12/2023) Hunger Screening Food Insecurity - Worry: Never True Food Insecurity - Inability: Never True Transportation Needs: Not on file Physical Activity: Not on file Stress: Not on file Social Connections: Not on file Interpersonal Safety: Not on file Housing Instability: Not on file Family History Problem Relation Age of Onset Aneurysm Mother Early Mother Brain aneurysm Hypertension Mother Stroke Mother Brain aneurysm Vision loss Mother Aneurysm Father Early Father aortic aneurysm Heart disease Father Hypertension Father Stroke Brother Arthritis Brother Knee replacements Early Brother Heart attack Heart disease Brother Hypertension Brother Stroke Brother mild Asthma Maternal Aunt Hypertension Maternal Aunt Asthma Son Vision loss Son Colon cancer Maternal Uncle Diabetes Maternal Uncle Heart disease Paternal Uncle Hypertension Paternal Uncle Hypertension Maternal Aunt Stroke Maternal Aunt Hypertension Paternal Uncle Stroke Paternal Uncle Hypertension Paternal Uncle Vision loss Son Anesthesia problems Neg Hx Objective Physical Exam Constitutional: General: She is not in acute distress. Appearance: Normal appearance. She is not ill-appearing. HENT: Head: Normocephalic and atraumatic. Mouth/Throat: Mouth: Mucous membranes are moist. Eyes: Pupils: Pupils are equal, round, and reactive to light. Cardiovascular: Rate and Rhythm: Normal rate. Pulmonary: Effort: Pulmonary effort is normal. No respiratory distress. Abdominal: General: There is no distension. Palpations: Abdomen is soft. Tenderness: There is abdominal tenderness. There is no guarding or rebound. Comments: Mild LLQ tenderness Musculoskeletal: General: Normal range of motion. Skin: General: Skin is warm and dry. Neurological: Mental Status: She is alert and oriented to person, place, and time. Mental status is at baseline. Vital Signs: Height 170.2 cm (5' 7.01 ), weight 62.7 kg (138 lb 3.2 oz). Respiratory Source: No data recorded Admission Weight: Weight: 62.7 kg (138 lb 3.2 oz) Labs Lab Results Component Value Date WBC 4.8 11/12/2023 HGB 12.9 11/12/2023 HCT 38.5 11/12/2023 MCV 87 11/12/2023 PLT 205 11/12/2023 Lab Results Component Value Date GLU 105 (H) 07/25/2023 CALCIUM 9.3 06/24/2023 K 3.7 06/24/2023 CO2 27 06/24/2023 CL 103 06/24/2023 BUN 23 06/24/2023 CREATININE 0.90 11/12/2023 No results found for: AMYLASE No results found for: LIPASE Lab Results Component Value Date ALT 14 06/24/2023 AST 22 06/24/2023 ALKPHOS 54 06/24/2023 No results found for: INR , PROTIME Imaging Colonoscopy 07/23/2018: Impression: - Four 3 to 5 mm polyps in the sigmoid colon, in the proximal sigmoid colon and in the distal sigmoid colon, removed with a hot snare. Resected and retrieved. - The examination was otherwise normal on direct and retroflexion views. Final Pathologic Diagnosis Distal sigmoid colon, excision: Hyperplastic polyp. Assessment LLQ pain ? 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 Keep appointments with gynecology and Hematology. Evaluation included: Preparing to see the patient (e.g., review of tests) Obtaining and/or reviewing separately obtained history Performing a medically appropriate examination and/or evaluation Counseling and educating the patient/family/caregiver Referring and communicating with other health critical care physician LLQ pain [R10.32] AUGUSTINA NULL APRN-MARIBEL [facility] This note was created with the assistance of a speech recognition program. While intending to generate a timely document that accurately reflects the content of the visit, no guarantee can be provided that every grammatical or spelling mistake has been or will be identified or corrected. Thank you for your understanding. ED Chao 07/05/25 1423 documented in this encounterAsuum09-22-2025 NoteHNO ID: [id number] Author: SVETA STRONG MD Service: ? Author Type: Physician Type: Progress Notes Filed: 07/04/2025 15:53 Note Text: Heart, Vascular and Thoracic [facility] Ella Varma Department of Cardiovascular Medicine SECTION OF INTERVENTIONAL CARDIOLOGY OUTPATIENT VISIT DATE 07/04/2025 OUTPATIENT VISIT TYPE NEW PRIMARY CARE PHYSICIAN: Ammon Osborne ([facility]) [address] [place] [address] REFERRING PHYSICIAN: Nigel Bowens [address] [facility] [id number] CHIEF COMPLAINT: Patient presents with: Establish Care Recording using ambient Periscope software for draft documentation of the visit was discussed with the patient/authorized telephone sales representative; all questions welcomed and answered. Patient/authorized telephone sales representative agreed to proceed HISTORY OF PRESENT ILLNESS: Mrs Russ is a 69 Y/O female with PMH of the [place] Syndrome, Atherosclerosis and hip Fx with osteoporosis, and Fhx of the Premature Cad, and aneurysm who wants to be started on the medication and has been sent for the cardiac clearance. Risk factors for coronary artery disease hypertension, history of smoking, family history of CAD She denies chest pain, lightheadedness, syncope, claudication, and leg swelling. Subjective She recently has high WBC and is being evaluated for CML as well. She is active and mentioned that sometimes gets Shortness of Breath but she relate it to her pelvic congestion syndrome.She had CT chest that showed aneurysmal dilation of PA and PAHT. 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 Osteoporosis Traumatic closed fracture of pelvis with minimal displacement (HCC) 09/02/2024 multiple, R sacral fracture, R inf/ sup pubic rami fracture, L superior rami pubic ramus fracture PAST SURGICAL HISTORY Procedure Laterality Date PAST SURGICAL HISTORY OF Right 2020 styloidectomy for [place] syndrome PAST SURGICAL HISTORY OF R knee menisus repair PAST SURGICAL HISTORY OF falloption tube tied PAST SURGICAL HISTORY OF 11/24/2023 right submandibular duct dilation with steroid irrigation REMOVAL GALLBLADDER N/A 1980s KIDNEY TRANSPLANT 03/02/2020 auto transplant SOCIAL HISTORY SOCIAL HISTORY[1] FAMILY HISTORY Problem Relation Age of Onset Aneurysm Father Hypertension Father Hypertension Mother Aneurysm Mother other (pulmonary embolism) Mother other (varicose veins) Mother Hypertension Brother Heart Attack Brother Stroke Brother Anesthesia Problems No Family History ALLERGIES: ALLERGIES Allergen Reactions Clindamycin Rash, Shortness of Breath Doxycycline Rash Venom-Honey Bee Rash Codeine GI Upset MEDICATIONS: cholecalciferol, vitamin D3, (VITAMIN D3 ORAL)Take by mouth.Disp: Rfl: VITAMIN B COMPLEX ORALTake by mouth.Disp: Rfl: cyclobenzaprine (FLEXERIL) 5 mg tablet1 tablet at bedtime as needed. Use vaginallyDisp: 90 tabletRfl: 4 estradiol (ESTRACE) 0.01 % (0.1 mg/gram) vaginal creamUse 0.5 g vaginally daily at bedtime. Apply finger tipped size to vulva, urethra nightlyDisp: 42.5 gRfl: 2 calcium carbonate/vitamin D3 (CALTRATE 600 + D ORAL)Take 600 mg by mouth two times a day.Disp: Rfl: atorvastatin (LIPITOR) 20 mg tabletTake 20 mg by mouth every evening.Disp: Rfl: fluticasone (FLONASE) 50 mcg/actuation nasal sprayUse 1 Rugby in the nose as needed for cold/allergy symptoms. Take in allergy seasonDisp: Rfl: montelukast (SINGULAIR) 10 mg tabletTake 10 mg by mouth once daily.Disp: Rfl: ibuprofen (MOTRIN) 200 mg tabletTake 400 mg by mouth two times a day. 400-800 mg 3-4 PRNDisp: Rfl: REVIEW OF SYSTEMS All 12 systems reviewed, all negative except what mentioned in HPI. Objective PHYSICAL EXAMINATION BP 148/81 Pulse 68 Ht 170.2 cm (5' 7 ) Wt 62.8 kg (138 lb 7.2 oz) LMP (LMP Unknown) SpO2 100% BMI 21.68 kg/m? General: Well appearing, in no acute distress, speaking in complete sentences. Skin: No clubbing, no cyanosis. Neck: No jugular venous distention, no carotid bruits, carotids have a normal upstroke, no palpable thyromegaly. Lungs: Clear to auscultation bilaterally, no wheezing or rhonchi. Heart: S1 normal, P2 prominent , no heaves, Systolic murmur at tricuspid area Abdomen: Soft, nontender, bowel sounds normal, no palpable organomegaly, no bruits. Extremities: No peripheral edema . Grade 2/4 distal pulses bilaterally. CARDIOVASCULAR MEDICINE TESTING: I have personally reviewed the Electrocardiogram and CT Chest Scan. Last EKG Result Conclusion ECG COMPLETE Collected: 07/04/2025 10:27 AM (Preliminary result) Impression: NORMAL SINUS RHYTHM RIGHT AXIS BORDERLINE ECG Last CT Result Conclusion CT CHEST WO IVCON Exam End: 04/25/2025 9:39 AM (Final result) CARDIOVASCULAR MEDICINE TESTING: Electrocardiogram: NSR, RAD CT Chest Scan: Showed dilated pulm (more content not included)...[facility]08-22-2025 Evaluation note* Diagnosis Onset Date Resolution Status Admit Date Arteriosclerosis acuteAugust 2024 10:[facility], subsequentacute June 03, 2025 10:48am [place] Work Phone: 1(648) 812-338508-22-2025 Evaluation note* Diagnosis Onset Date Resolution Status Admit Date Arteriosclerosis acuteAugust 2024 10:48amMedicare annual wellness visit, subsequentacute June 03, 2025 10:48amAbdominal painacuteSeptember 2024 9:48am LeukocytosisacuteSeptember 2024 9:48amPelvic floor dysfunction in female acuteSeptember 2024 9:48am [facility] Work Phone: 1(434) 736-451508-21-2025 History of Present illness Narrative* Dania Warren, - 06/02/2025 8:45 AM EDT Images from [...] (around 06/02/2026) for CT chest . Dania Warren DO documented in this encounterFreeman Orthopaedics & Sports [id number] NoteHNO ID: [id number] Author: ORQUIDEA SAAVEDRA MD Service: ? Author Type: Physician Type: Progress Notes Filed: 05/05/2025 11:26 Note Text: see dictated note Orquidea Saavedra II [facility]07-24-2025 History of Present illness Narrative* Orquidea Saavedra MD - 05/05/2025 11:25 AM EDT see dictated note Orquidea Saavedra II, MD documented in this encounterSelect [facility] NoteHNO ID: [id number] Author: ORQUIDEA SAAVEDRA MD Service: Orthopaedic Surgery Author Type: Physician Type: Progress Notes Filed: 05/09/2025 10:36 Note Text: [facility] NOTE [facility] NAME: KAREN ZAIDI [facility] NO.: [id number] DATE OF SERVICE: 05/04/2025 ATTENDING PHYSICIAN: Orquidea [...] in 3 months. DICTATED BY: Eliud Soni II/LINETTET JOB# [id number] [facility]als [facility]06-[facility] History of Present illness Narrative* Angelina Lantigua, SCRAP SORTER - 03/31/2025 8:45 AM EDT [facility] Outpatient Physical Therapy Daily Note Patient: Karen Zaidi : 1955 CSN #: [id number] Referring Physician: Augustina Vargas MD Date: 03/31/2025 [...] 85% of 1RM to improve bone denisty.--MET Snf Goals Time Frame for Snf Goals : 6 weeks Snf Goal 1: Patient will be independent and compliant with a HEP and gym exercise program. - MET/continued Snf Goal 2: Patient will improve bilateral LE strength to 5/5 in all major joints and planes. Snf Goal 3: Patient will improve 5 time sit to stand time by at least 1 second to indicate improved muscular power. 10 STS 16 sec (03/11/25) Snf Goal 4: Patient will report 70% improvement in overall strength and endurance. - MET (03/31 patient reports 75% improvements) Minutes Tracking: Time In: 0845 Time Out: 0930 Minutes: 45 Timed Code Treatment Minutes: 42 Minutes Angelina Lantigua PTA Date: 03/31/2025 Cosigned by Al Singh, PT at 03/31/2025 11:47 AM EDT documented in this encounterBon [facility]06-[facility] History of Present illness Narrative* Cedrick Perera - 03/28/2025 9:15 AM EDT [facility] Outpatient Physical Therapy Daily Note Patient: aKren Zaidi : 1955 CSN #: [id number] Referring Physician: Augustina Vargas MD Date: 03/28/2025 [...] 85% of 1RM to improve bone denisty.--MET Assistant Spa Director Goals Time Frame for Snf Goals : 6 weeks Snf Goal 1: Patient will be independent and compliant with a HEP and gym exercise program. - MET/continued Snf Goal 2: Patient will improve bilateral LE strength to 5/5 in all major joints and planes. Assistant Spa Director Goal 3: Patient will improve 5 time sit to stand time by at least 1 second to indicate improved muscular power. 10 STS 16 sec (03/11/25) Assistant Spa Director Goal 4: Patient will report 70% improvement in overall strength and endurance. Minutes Tracking: Time In: 914 Time Out: 1000 Minutes: 45 Cedrick Rm Date: 03/28/2025 Cosigned by Al Singh, PT at 03/28/2025 1:27 PM EDT documented in this encounterBon [facility]06-[facility] History of Present illness Narrative* Cedrick Perera - 03/21/2025 8:30 AM EDT [facility] Outpatient Physical Therapy Daily Note Patient: Karen Zaidi : 1955 CSN #: [id number] Referring Physician: Augustina Vargas MD Date: 03/21/2025 [...] 85% of 1RM to improve bone denisty.--MET Snf Goals Time Frame for Assistant Spa Director Goals : 6 weeks Snf Goal 1: Patient will be independent and compliant with a HEP and gym exercise program. - MET/continued Snf Goal 2: Patient will improve bilateral LE strength to 5/5 in all major joints and planes. Snf Goal 3: Patient will improve 5 time sit to stand time by at least 1 second to indicate improved muscular power. 10 STS 16 sec (03/11/25) Snf Goal 4: Patient will report 70% improvement in overall strength and endurance. Minutes Tracking: Time In: 08 Time Out: 914 Minutes: 45 Timed Code Treatment Minutes: 44 Minutes Cedrick Rm Date: 03/21/2025 Cosigned by Al Singh, PT at 03/21/2025 10:16 AM EDT documented in this encounterBon [facility]06-04-[facility] Telephone encounter Note* Telephone Encounter - Estefany Nino - 03/16/2025 10:14 AM EDT 2nd attempt, spoke with patients , gave phone number for patient to call us back to scheduleappointment with Sachi Martinez APRN.[employer] P[employer]IC APPLIER AFTER her CARD appointment 3rd, mychart reminder to call sent [facility]06-04-2025 Miscellaneous Notes* Telephone Encounter - Estefany Nino [...] call back and schedule with Sachi Martinez APRN.[employer] P[employer]IC APPLIER * Telephone Encounter - Estefany Nino - 03/03/2025 12:00 PM EDT Called and spoke with patient, scheduled sooner for Cardiology in [place] Scheduled for 06/07/2025 in [place]. Patient has been again added to the [...] otherwise we have nothing available here in [place] at this time. * Telephone Encounter - Sachi Martinez APRN.CNP - 02/14/2025 10:35 AM EDT Please help Karen to reschedule cardiology apt sooner, February if possible, then schedule a follow up apt with me in March. Thank you. documented in this encounterSelect Medical [facility]ty [facility]06-04-2025 History of Present illness Narrative* Cedrick Perera Eloina - 03/16/2025 9:15 AM EDT [facility] Outpatient Physical Therapy Daily Note Patient: Karen Zaidi : 1955 CSN #: [id number] Referring Physician: Augustina Vargas MD Date: 03/16/2025 [...] 85% of 1RM to improve bone denisty.--MET Assistant Spa Director Goals Time Frame for Assistant Spa Director Goals : 6 weeks Snf Goal 1: Patient will be independent and compliant with a HEP and gym exercise program. - MET/continued Assistant Spa Director Goal 2: Patient will improve bilateral LE strength to 5/5 in all major joints and planes. Assistant Spa Director Goal 3: Patient will improve 5 time sit to stand time by at least 1 second to indicate improved muscular power. 10 STS 16 sec (03/11/25) Snf Goal 4: Patient will report 70% improvement in overall strength and endurance. Minutes Tracking: Time In: 0915 Time Out: 1000 Minutes: 45 Timed Code Treatment Minutes: 44 Minutes Cedrick Rm Date: 03/16/2025 Cosigned by Al Singh, PT at 03/16/2025 7:17 PM EDT documented in this encounterBon [facility]06-02-[facility] History of Present illness Narrative* Cedrick Perera - 03/14/2025 9:15 AM EDT [facility] Outpatient Physical Therapy Daily Note Patient: Karen Zaidi : 1955 CSN #: [id number] Referring Physician: Augustina Vargas MD Date: 03/14/2025 [...] 85% of 1RM to improve bone denisty.--MET Snf Goals Time Frame for Snf Goals : 6 weeks Assistant Spa Director Goal 1: Patient will be independent and compliant with a HEP and gym exercise program. - MET/continued Snf Goal 2: Patient will improve bilateral LE strength to 5/5 in all major joints and planes. Assistant Spa Director Goal 3: Patient will improve 5 time sit to stand time by at least 1 second to indicate improved muscular power. 10 STS 16 sec (03/11/25) Assistant Spa Director Goal 4: Patient will report 70% improvement in overall strength and endurance. Minutes Tracking: Time In: 915 Time Out: 1000 Minutes: 44 Timed Code Treatment Minutes: 43 Minutes Cedrick Rm Date: 03/14/2025 Cosigned by Al Singh, PT at 03/14/2025 11:16 AM EDT documented in this encounterBon [facility]05-30-[facility] History of Present illness Narrative* Giovanna Wu PTA - 03/11/2025 8:00 AM EDT Physical Therapy [facility] Outpatient Physical Therapy Daily Note Patient: Karen Zaidi : 1955 CSN #: [id number] Referring Physician: Augustina Vargas MD Date: 03/11/2025 [...] 85% of 1RM to improve bone denisty.--MET Assistant Spa Director Goals Time Frame for Assistant Spa Director Goals : 6 weeks Snf Goal 1: Patient will be independent and compliant with a HEP and gym exercise program. - MET/continued Snf Goal 2: Patient will improve bilateral LE strength to 5/5 in all major joints and planes. Snf Goal 3: Patient will improve 5 time sit to stand time by at least 1 second to indicate improved muscular power. 10 STS 16 sec (03/11/25) Snf Goal 4: Patient will report 70% improvement in overall strength and endurance. Minutes Tracking: Time In: 756 Time Out: 0842 Minutes: 45 Timed Code Treatment Minutes: 42 Minutes Giovanna Wu PTA Date: 03/11/2025\ Cosigned by Al Singh, PT at 03/11/2025 9:00 AM EDT documented in this encounterBon [facility]05-28-[facility] History of Present illness Narrative* Giovanna Wu, SCRAP SORTER - 03/09/2025 2:30 PM EDT Physical Therapy [facility] Outpatient Physical Therapy Daily Note Patient: Karen Zaidi : 1955 CSN #: [id number] Referring Physician: Augustina Vargas MD Date: 03/09/2025 [...] 85% of 1RM to improve bone denisty.--MET Assistant Spa Director Goals Time Frame for Snf Goals : 6 weeks Assistant Spa Director Goal 1: Patient will be independent and compliant with a HEP and gym exercise program. - MET/continued Assistant Spa Director Goal 2: Patient will improve bilateral LE strength to 5/5 in all major joints and planes. Snf Goal 3: Patient will improve 5 time sit to stand time by at least 1 second to indicate improved muscular power. Assistant Spa Director Goal 4: Patient will report 70% improvement in overall strength and endurance. Minutes Tracking: Time In: 1430 Time Out: 1514 Minutes: 44 Timed Code Treatment Minutes: 41 Minutes Giovanna Wu PTA Date: 03/09/2025 Cosigned by Al Singh, PT at 03/09/2025 6:51 PM EDT documented in this encounterBon [facility]05-28-20[facility] Telephone encounter Note* Telephone Encounter - Estefany Nino - 03/09/2025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 for educational or training purposes was discussed with the Patient or Authorized Parts Administrator. The Patient or Authorized Parts Administrator has agreed to proceed with the sensitive [...] 0.25% Bupivacaine 10 ML --- lot # [id number] EXP:09/11/2025 UNIVERSAL PROTOCOL / SAFETY CHECKLIST Procedure [...] Patient tolerated procedure well. OnabotulinumtoxinA: office provided LOT:[id number] EXP: 02/2027 documented in this encounterSelect Medical [facility]ty [facility]02-26-2025 NoteHNO ID: [id number] Author: AUGUSTINA VARGAS MD Service: ? Author Type: Physician Type: Progress Notes Filed: 12/11/2024 16:30 Note Text: [facility] SECTION FOR CHRONIC PELVIC PAIN OUTPATIENT VISIT [...] on 09/02/24. She required 10 weeks of ptd-qzjyrf-rymlzlu activity and is still attending physical therapy. [...] Unknown) BMI 21.61 kg/m? 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 SENSITIVE EXAM: The sensitive examination was discussed with the Patient or Patient's Authorized Parts Administrator. As applicable, any other physician, advance practice provider, medical student, or other health professional student that will be observing or involved in the sensitive examination for educational or training purposes was discussed with the Patient or Authorized Parts Administrator. 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 Exam conducted with a waiter/waitress cocktail lounge present. 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 Family history of abdominal aortic aneurysm 08/20/2023 Infrarenal abdominal 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 ([facility]) 08/20/2023 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 Chest pain 06/12/2023 Pelvic pain 08/20/2023 Submandibular gland swelling 10/07/2023 Mass of right submandibular region 12/01/2023 Neck pain 12/01/2023 Malnutrition of moderate degree ([facility]) 03/03/2024 Narcotic drug use 02/19/2024 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 Other hyperlipidemia ([facility]) 02/19/2024 Ovarian varices 02/19/2024 Sinus bradycardia on ECG 02/20/2024 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 Past [...] Infrarenal abdominal 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 ([facility]) 08/20/2023 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 Lung nodule Malnutrition of moderate degree ([facility]) 03/03/2024 Mass of right submandibular region 12/01/2023 Narcotic drug use 02/19/2024 Last Assessment & Plan: Pain managed with norco PRN Neck pain 12/01/2023 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 Last Assessment & Plan: With pelvic congestion Patient endorses abdominal and L flank pain with radiation to pelvis Other hyperlipidemia ([facility]) 02/19/2024 Last Assessment & Plan: Managed on Atorvastatin Ovarian varices 02/19/2024 Last Assessment & Plan: 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 Exam conducted with a waiter/waitress cocktail lounge present. Vitals: Estimated body mass index is [...] Since last visit she had surgery at [facility] where they performed what is called auto [...] behalf of: DELIA Burnett documented in this encounterFreeman Orthopaedics & Sports [id number] Telephone encounter Note* Telephone Encounter - Kira Alvarez RN - 11/01/2024 3:59 PM EST Order faxed with transmission receipt. Kira Alvarez RN November 01, 2024 3:59 PM [facility]01-20-2025 Miscellaneous Notes* Telephone Encounter - Kira Alvarez RN - 11/01/2024 3:59 PM EST Order faxed with transmission receipt. Kira Alvarez RN November 01, 2024 3:59 PM * Telephone Encounter - Nano Cline - 11/01/2024 3:01 PM EST Patient cleared by ortho to resume PFPT. Patient requesting new order placed and faxed to number below: documented in this encounterSelect Medical Specialty [facility]01-20-2025 Telephone encounter Note * Telephone Encounter - Nano Cline - 11/01/2024 3:01 PM EST Patient cleared by ortho to resume PFPT. Patient requesting new order placed and faxed to number below: [facility]12-10-2024 Note* Addendum Note - Alysha Torres RN - 09/21/2024 2:45 PM ESTAddended by: ALYSHA TORRES on: 09/21/2024 02:45 PM Modules accepted: Orders [facility]12-10-2024 Miscellaneous Notes* Addendum Note - Alysha Torres RN - 09/21/2024 2:45 PM ESTAddended by: ALYSHA TORRES on: 09/21/2024 02:45 PM Modules accepted: Orders * Telephone Encounter - Alysha Torres RN - 09/21/2024 2:41 PM EST [facility] 08/17/2024 Assessment: Encounter Diagnosis ICD-10-CM 1. High-tone pelvic floor dysfunction M62.89 cyclobenzaprine (FLEXERIL) 5 mg tablet onabotulinum toxin type A 100 Units injection (BOTOX) Plan: 1) fu botox and abd TPI 10/05/24 2) continue flexeril vaginally Total Time Spent: 5-10 minutes Augustina Vargas MD * Telephone Encounter - Tosin Karimi - 09/21/2024 12:18 PM EST Pt fyi - broke pelvis in four places about 3 weeks ago. Had to cancel all future PT appts and will need new order for end of end of November/beginning of December. Also had to reschedule TPI to end of November. Pt concerned and wanted to insure Dr was aware of current situation. documented in this encounterSelect Medical Specialty [facility]12-10-2024 Telephone encounter Note * Telephone Encounter - Alysha Torres RN - 09/21/2024 2:41 PM EST [facility] 08/17/2024 Assessment: Encounter Diagnosis ICD-10-CM 1. High-tone pelvic floor dysfunction M62.89 cyclobenzaprine (FLEXERIL) 5 mg tablet onabotulinum toxin type A 100 Units injection (BOTOX) Plan: 1) fu botox and abd TPI 10/05/24 2) continue flexeril vaginally Total Time Spent: 5-10 minutes Augustina Vargas MD [facility]12-10-2024 Telephone encounter Note* Telephone Encounter - Tosin Karimi - 09/21/2024 12:18 PM EST Pt fyi - broke pelvis in four places about 3 weeks ago. Had to cancel all future PT appts and will need new order for end of end of November/beginning of December. Also had to reschedule TPI to end of November. Pt concerned and wanted to insure Dr was aware of current situation. [facility]11-20-2024 Telephone encounter Note* Telephone Encounter - Danae Colindres RN - 09/01/2024 12:04 PM EST Refill(s) request: Requested Prescriptions Pending Prescriptions Disp Refills cyclobenzaprine (FLEXERIL) 5 mg tablet [Pharmacy Med Name: cyclobenzaprine 5 mg tablet] 90 tablet 4 Sig: take1 tablet BY MOUTH at bedtime as needed Called patient. Left voice message and notified there is a valid prescription waiting for her to filler picker at the pharmacy on file. Request [...] Center 10/05/2024 2:30 PM Augustina Vargas MD [facility] Appointment scheduled: As listed above Action taken: Refill already approved by provider. Danae Colindres RN September 01, 2024 12:05 PM [facility]11-20-2024 Miscellaneous Notes* Telephone Encounter - Danae Colindres RN - 09/01/2024 12:04 PM EST Refill(s) request: Requested Prescriptions Pending Prescriptions Disp Refills cyclobenzaprine (FLEXERIL) 5 mg tablet [Pharmacy Med Name: cyclobenzaprine 5 mg tablet] 90 tablet 4 Sig: take1 tablet BY MOUTH at bedtime as needed Called patient. Left voice message and notified there is a valid prescription waiting for her to filler picker at the pharmacy on file. Request [...] Center 10/05/2024 2:30 PM [facility] Appointment scheduled: As listed above Action taken: Refill already approved by provider. Danae Colindres RN September 01, 2024 12:05 PM documented in this encounterSelect Medical [facility]ty [facility]11-11-2024 Telephone encounter Note * Telephone Encounter - Juliet Lopez RN - 08/23/2024 2:24 PM EST Called Guille Kaur to clarify that prescription is for Flexeril 5 mg tablets and to use 1 tablet at bedtime vaginally. Juliet Lopez RN [facility]11-11-2024 Miscellaneous Notes* Telephone Encounter - Juliet Lopez [...] is for oral tablet Please advise: [facility]- [facility] [id number] - [place] [address] - [address] - [phone] documented in this encounterSelect Medical Specialty [facility]11-11-2024 Telephone encounter Note * Telephone Encounter - Nano Cline - 08/23/2024 1:53 PM EST Received call from pharmacy asking for clarification of directions for: cyclobenzaprine (FLEXERIL) 5 mg tablet States that direction says to use vaginally but prescription is for oral tablet Please advise: [facility] [id number] - [place] [address] - [address] [facility] - [phone] [facility]11-07-2024 Telephone encounter Note* Telephone Encounter - Lupis Desai - 08/19/2024 11:31 AM EST Done Lupis Hodge [facility] Work Phone: [phone]) 788-970711-07-2024 Miscellaneous Notes* Telephone Encounter - Lupis Desai - 08/19/2024 11:31 AM EST Done Lupis [...] approved already Patient aware documented in this encounterSelect Medical [facility]11-06-2024 Telephone encounter Note * Telephone Encounter - Augustina Vargas MD - 08/18/2024 1:24 PM EST Done Encounter Diagnosis ICD-10-CM 1. High-tone pelvic floor dysfunction M62.89 CYSTOSCOPY WHI [facility]11-05-2024 NoteHNO ID: [id number] Author: AUGUSTINA VARGAS MD Service: ? Author [...] cream Services (GI, urology, pain psych,PFPT) 1. [facility] [id number] History of Present illness Narrative * Augustina [...] pain psych,PFPT) 1. PFPT documented in this encounterSelect Medical Specialty [facility]11-05-2024 Telephone encounter Note * Telephone Encounter - Augustina Vargas MD - 08/17/2024 4:54 PM EST Please put her on my schedule oct 05, 2024 at 2:30pm for botox, which is approved already Patient aware [facility]10-14-2024 History of Present illness Narrative* Sarah Godwin MD - 07/26/2024 10:15 AM EDT [facility] - [facility] [address] [facility] [id number] SUBJECTIVE: Patient ID: Karen Zaidi is a [...] autotransplantation of her kidney on [facility]2024 [facility]. 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 Osteoporosis Pelvic congestion syndrome Peripheral vascular disease ([facility]) Seasonal allergies Submandibular gland swelling 11/12/2023 Visual impairment glasses Past Surgical History: Procedure Laterality Date CATARACT EXTRACTION Bilateral 2018 CHOLECYSTECTOMY COLONOSCOPY COLONOSCOPY N/A 07/23/2018 Performed by Orquidea Salcedo DO at [facility] DENTAL SURGERY 07/2013 implants Diagnostic cerebral angiogram N/A 03/31/2020 Performed by Melissa Morillo MD at [facility] CARDIAC CATH LABS DIAGNOSTIC VENOGRAM OF IVC AND ILEOCABLE, LEFT RENAL VEIN, SELECTIVE LEFT OVARIAN VEIN CONTRAST ANDIVUS VENOGRAMS N/A 07/25/2023 Performed by Erendira Armijo DO at [facility] SPECIAL PROC dilation rt submandibular duct and steroid irrigation Right 11/24/2023 Performed by Sarah Godwin MD at [facility] KIDNEY STONE SURGERY 2019? KNEE CARTILAGE SURGERY MOLE REMOVAL 11/10/2023 right breast NEPHRECTOMY TRANSPLANTED ORGAN 03/02/2024 OTHER SURGICAL HISTORY 08/31/2020 cranial base ( cranial styloidectomy) 05/2020 also OTHER SURGICAL HISTORY 06/18/2023 venogram OTHER SURGICAL HISTORY 09/09/2023 DIagnostic venogram TUBAL LIGATION Vascular Invasive Diagnostic venogram with IVUS and the ability to measure pressure gradients Bilateral 06/18/2023 Performed by Erendira Armijo DO at [facility] CARDIAC CATH LABS Family History [...] or concerns: . Non-emergent messages received through Fundation may take up to 2 business days for a response. Scribe Statement: Scribed for and in the presence of Sarah Godwin MD by Lauren Ortiz (scribe). Lauren Ortiz 07/26/2024 10:56 AM Provider Statement: I Sarah [...] to ensure the accuracy of this automated front office coordinator, some errors in front office coordinator may have occurred. Yovana Veloz CNA 07/26/24 1024 documented in this encounterPorter Medical CenterSeldom Seen Adventures10-14-2024 Instructions* Patient Instructions* Neda Ortiz - 07/26/2024 10:15 AM EDT Today's examination [...] or concerns: . Non-emergent messages received through Fundation may take up to 2 business days for a response. documented in this encounterLicking Memorial HospitalBoomWriter Media [id number] Instructions* Patient Instructions* Augustina Vargas MD - [...] stress urinary incontinence (4.8%). documented in this encounterSelect Medical [facility]ty [facility]09-24-2024 History of Present illness Narrative* Augustina Vargas MD - 07/06/2024 10:30 AM EDT Images from the original note were not included. [facility] SECTION FOR CHRONIC PELVIC PAIN OUTPATIENT VISIT [...] PHYSICAL THERAPY You can search for others [email or web address] Security Team, enter zip or city You can click [...] Patient tolerated procedure well. OnabotulinumtoxinA: office provided LOT:[id number] EXP: 08/2026 PROCEDURE ABDOMINAL TRIGGER POINT INJECTIONS [...] 0.25% Bupivacaine 10 ML --- lot # [id number] EXP: 05/2026 documented in this encounterSelect Medical [facility]ty [facility]08-26-2024 Telephone encounter Note * Telephone Encounter - Kira Alvarez RN - 06/07/2024 10:24 AM EDT Called pt; verified name/. Advised pt to use Flexeril vaginally, inserting as far as it will go at bedtime. Advised pt that itmay cause drowsiness, but to a lesser degree when inserted vaginally vs. orally. Pt verbalized understanding and had no further questions. Kira Alvarez RN June 07, 2024 10:25 AM Avila [id number] Miscellaneous Notes* Telephone Encounter - Kira Alvarez [...] Delong RN - 06/04/2024 10:31 AM EDT [facility] 05/27/2024 Notes not yet complete Alysha [...] 04, 2024 10:38 AM documented in this encounterSelect Medical [facility]ty [facility]08-26-2024 Telephone encounter Note * Telephone Encounter - Lupis Desai - 06/07/2024 8:25 AM EDT Done Lupis Hodge [facility] Work Phone: [phone] Miscellaneous Notes* Telephone Encounter - Lupis Desai - 06/07/2024 8:25 AM EDT Done Lupis Hodge * Telephone Encounter - Augustina Vargas MD - 06/06/2024 11:09 PM EDT Botox is approved; can she start PFPT if she desires and then do botox or do botox in office first available appointment documented in this encounterSelect Medical [facility]ty [facility]08-25-2024 Telephone encounter Note * Telephone Encounter - Augustina Vargas MD - 06/06/2024 11:09 PM EDT Botox is approved; can she start PFPT if she desires and then do botox or do botox in office first available appointment [facility]08-25-2024 Telephone encounter Note* Telephone Encounter - Augustina Vargas MD - 06/06/2024 11:06 PM EDT Tell her fleexeril, I like to try it vaginally first (less side effects ) and use at night. Insert as far as it will go vaginally at night It can cause grogginess but more so if used orally [facility]08-23-2024 Telephone encounter Note* Telephone Encounter - Aidee [...] Delong RN June 04, 2024 10:38 AM [facility]08-22-2024 History of Present illness Narrative* Dania Warren, DO - 06/03/2024 8:45 AM EDT Images [...] Infrarenal abdominal 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 ([facility]) 08/20/2023 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 Lung nodule Malnutrition of moderate degree ([facility]) 03/03/2024 Mass of right submandibular region 12/01/2023 Narcotic drug use 02/19/2024 Last Assessment & Plan: Pain managed with norco PRN Neck pain 12/01/2023 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 Dania Warren DO documented in this encounterFreeman Orthopaedics & Sports [id number] Telephone encounter Note* Telephone Encounter - Alysha Torres RN - 05/28/2024 12:45 PM EDT [facility] 05/27/2024 Notes not yet complete [...] dysfunction, high tone pelvic floor,pelvic floor tightness) [facility]08-16-2024 Miscellaneous Notes* Telephone Encounter - Alysha Torres RN - 05/28/2024 12:45 PM EDT [facility] 05/27/2024 Notes not yet complete Alysha Torrse RN Instructions See pelvic floor PHYSICAL THERAPY [...] floor,pelvic floor tightness) * [facility] - 05/28/2024 9:52 AM EDT Reason for [...] visit in this department: 08/27/2024 08/27/2024 in [facility] with AUGUSTINA VARGAS 3 MO F/U - TVST ok per Dr. Alicia PLS CALL HOME PHONE PT is unable to do VV documented in this encounterSelect Medical Specialty [facility]08-16-2024 Telephone encounter Note * Telephone Encounter - Lupis Desai - 05/28/2024 9:52 AM EDT Reason for [...] visit in this department: 08/27/2024 08/27/2024 in [facility] with AUGUSTINA VARGAS - Anna MO F/U - TVST ok per Dr. Alicia PLS CALL HOME PHONE PT is unable to do VV [facility] Work Phone: [phone] 329-842708-15-2024 History of Present illness Narrative* Chip Chowdary MD - 05/27/2024 10:30 AM EDT REASON [...] (FLONASE) 50 mcg/actuation nasal spray Use 1 Rugby in the nose as needed for cold/allergy [...] SURGICAL HISTORY OF; Right Comment: styloidectomy for [place] syndrome No date: PAST SURGICAL HISTORY OF [...] great PLAN -Follow up as needed Chip Chowdary MD documented in this encounterSelect Medical Specialty [facility]08-15-2024 Instructions* Patient Instructions* Augustina Vargas MD - [...] exercises until seen by physical therapist. Instagram: Derek Thepelvicmaryse Ruby, pelvic floor PHYSICAL THERAPY Resources: Keri [...] messages will go to the RN or plating operator first to be addressed. If questions are urgent, please call [phone] and press nurse prompt. For urgent Questions: call my secretary office clerk with questions, appts related to chronic pelvic pain, Pete ,fax [phone] For refills, I prefer these be sent through [employer] We also have a nurse coordinatorKaren Francis RN My schedule: I see patients in office Friday/Friday/ and Fridays: virtual visits only documented in this encounterSelect Medical Specialty [facility]08-15-2024 History of Present illness Narrative* Augustina Vargas MD - 05/27/2024 8:41 AM EDT Images from the original note were not included. [facility] SECTION FOR CHRONIC PELVIC PAIN OUTPATIENT VISIT DATE 05/27/2024 OUTPATIENT VISIT TYPE CONSULT REFERRING PROVIDER: No ref. provider found PRIMARY CARE PROVIDER: Ammon Osborne MD PRIMARY SERVICE NOW DEVELOPER: Consultation requested by referring provider above for [...] pain. 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 She left, went to see dr alarcon, felt NCS causing PCS, then had renal [...] is the same She makes herself eat [place] syndrome-styloid surgery She cannot travel She is fully retired Pain is there & wakes her Pain in left anterior thigh, No PFPT Automatic Mounter Hx: (page 3) Menarche: 14 Currently experiences: Not menstruating Duration of dysmenorrhea symptoms: none Currently missing school/work: No Prior dysmenorrhea treatment: None Current control: Nothing History of STD: Negative history [place] intake LMP: No LMP recorded (lmp unknown). Patient is postmenopausal. Cycles: Menopausal Last pap: Pap Results: WNL/neg HPV 03/2023 History of abnormal pap: No [place]: (MA intake) Dyspareunia: both insertional and deep [...] endorses Pain changes with bowel movements: endorses. [place] scale: dnc Pudendal symptoms: (page 13) Pain [...] SURGICAL HISTORY OF; Right Comment: styloidectomy for [place] syndrome No date: PAST SURGICAL HISTORY OF Comment: R knee menisus repair No date: PAST SURGICAL HISTORY OF Comment: falloption tube tied 11/24/2023: PAST SURGICAL HISTORY OF Comment: right submandibular duct dilation with steroid irrigation No date: REMOVAL GALLBLADDER; N/A Comment: 1980s Automatic Mounter history: see HPI FAMILY HISTORY Problem Relation [...] (FLONASE) 50 mcg/actuation nasal spray Use 1 Rugby in the nose as needed for cold/allergy [...] no lesions, non-tender Speculum exam: Deferred Vagina: Lenora, moist, well-rugated vagina without lesions. non-tender Cervix: [...] obtained in 12 months --END OF FINDING-- Cutting Table Operator: TRINI Transcribe Date/Time: Apr 30 2024 12:52P [...] urology, pain psych,PFPT) 1. documented in this encounterSelect [facility] History of Present illness Narrative* Chris Medrano [...] PATIENT PRESENTS WITH AN IMPLANTABLE OR ATTACHED POLICE SERGEANT PRECINCT: No RADIOLOGY DEPARTMENT: CT; Exam(s) Completed: Abdomen/Pelvis PERIPHERAL IV DATA: Site assessment: Clean,Dry and Intact, Site disposition Discontinued SIGNED BY: TECHNOLOGIST Yunier April 26, 2024 2:30 PM documented in this encounterSelect Medical Specialty [facility]07-15-2024 NoteHNO ID: [id number] Author: CHRIS MEDRANO TECHNOLOGIST Service: ? Author [...] PATIENT PRESENTS WITH AN IMPLANTABLE OR ATTACHED POLICE SERGEANT PRECINCT: No RADIOLOGY DEPARTMENT: CT; Exam(s) Completed: Abdomen/Pelvis PERIPHERAL IV DATA: Site assessment: Clean,Dry and Intact, Site disposition Discontinued SIGNED BY: TECHNOLOGIST Yunier April 26, 2024 2:30 [facility]07-15-2024 Nurse Note* Julien Acuña RN - 04/26/2024 1:15 PM EDT Radiology [...] DATE: April 26, 2024 TIME: 1:22 PM [facility]07-15-2024 Nurse Note* Julien Acuña RN - 04/26/2024 1:15 PM EDT Radiology [...] 2024 TIME: 1:22 PM documented in this encounterSelect Medical Specialty [facility]07-10-2024 Telephone encounter Note * Telephone Encounter - [...] op f/up. She is seeing gynecology at [facility] on 05/27, will try to coordinate appt w/ Dr. Chowdary on that day. Destiny Borrero MD [facility] Work Phone: [phone]) 861-101407-10-2024 Miscellaneous Notes* Telephone Encounter - Destiny Borrero [...] op f/up. She is seeing gynecology at [facility] on 05/27, will try to coordinate appt w/ Dr. Chowdary on that day. Destiny Borrero MD documented in this encounterSelect Medical [facility]ty [facility]06-29-2024 Procedure note* Fco Munoz MD - 04/10/2024 [...] follow up as scheduled Allen Munoz MD [facility]06-29-2024 Procedure note* Allen Munoz MD - 04/10/2024 [...] scheduled Allen Munoz MD documented in this encounterSelect Medical [facility]ty [facility]06-26-2024 History of Present illness Narrative* Robel Lawrence [...] applicable. Robel Lawrence RN documented in this encounterSelect Medical Specialty [facility]06-26-2024 Nurse Note* Robel Lawrence RN - 04/07/2024 [...] had the pain?) unknown Robel Lawrence RN [facility]06-26-2024 Nurse Note* Robel Lawrence RN - 04/07/2024 [...] Yes Patient was roomed in: Q9- 06 Stuffing Machine Operator offered:Patient declines Patient arrived in the room [...] note for procedure details. documented in this encounterSelect Medical Specialty [facility]06-26-2024 Nurse Note* Pretty Rahman RN - 04/07/2024 10:56 AM EDT Actual procedure/procedure scheduled: Yes Performing provider/scheduled provider: Yes Patient was roomed in: Q9- 06 Stuffing Machine Operator offered:Patient declines Patient arrived in the room [...] care. See her note for procedure details. [facility]-09-[facility] History of Present illness Narrative* Chip Chowdary MD - 02/19/2024 3:45 PM EDT REASON [...] performed due to technical problems in the excavation laborer. Venous duplex US - UE 07/18/23: - [...] (FLONASE) 50 mcg/actuation nasal spray Use 1 Rugby in the nose as needed for cold/allergy [...] Patient is optimally prepared for surgery Chip Chowdary MD documented in this encounterSelect Medical Specialty [facility]05-09-2024 Instructions* Patient Instructions* Asia Sawyer APRN.COLORED LIQUID PLASTIC APPLIER - 02/19/2024 1:32 PM EDT PATIENT PREOPERATIVE INSTRUCTIONS Chip Chowdary MD has scheduled you for your procedure at this surgery center: If no call by 4pm the day before surgery, please call this number. [place] Scheduling Office: [phone] --[address] [place] [address]. Please read below carefully for your personalized [...] Procedures: - YOU MUST HAVE A RESPONSIBLE INVESTMENT EXECUTIVE TAKE YOU HOME. A SCENARIO WRITER OR WINDOW SHADE CUTTER AND MOUNTER CANNOT BE MADE A RESPONSIBLE INVESTMENT EXECUTIVE. - We recommend that a responsible person [...] call the Friday before. Your surgeon s out of town collection clerk will tell you what time to call the office. - If you have not reached the departmental out of town collection clerk by 5 P.M., call [phone] after 5 P.M. the day before your surgery. Please be aware that emergency situations arise, which may delay or change your surgical time. If this happens, we will notify you as soon as possible and regret any inconvenience. If you already have an Advance Directive, please fax a copy to [phone] or email to for it to be [...] day. Asia Sawyer APRN.CNP documented in this encounterSelect Medical Specialty Hospital [facility]05-09-2024 History and physical note * Asia Sawyer APRN.CNP - 02/19/2024 1:20 PM EDT HISTORY AND PHYSICAL EXAMINATION SERVICE DATE: 02/19/2024 SERVICE TIME: 1:17 PM PRIMARY CARE PHYSICIAN: Ammon Osborne MD Assessment Patient has the following medical [...] Positive for: peripheral neuropathy (neurontin). Negative for: CLOTH TESTER tumor, delirium, dementia, headaches, multiple sclerosis, seizures, TIA and strokes. Respiratory: Allergies - singulair +lung nodule - routine surveillance Negative for: COPD, current cough, dyspnea, home oxygen, pneumonia within 6 weeks, tobacco use, URI< 2 weeks and obstructive sleep apnea.Asthma: singulair. Cardiovascular: Positive for: abdominal aortic aneurysm (3.2cm) and hyperlipidemia (atorvastatin) Negative for: angina, arrhythmia, CAD, chest pain, CHF, DVT/PE, hypertension and recent AL. GI: Pelvic congestion, abdominal and L flank [...] nephrolithiasis, renal failure and urinary tract infection. LEATHER STAKER: See HPI. 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 Instructions Given to Patient: Instructions located in the after visit summary. Patient given verbal and written preop instructions and voices comprehension and compliance. SIGNATURE: Asia Sawyer APRN.COLORED LIQUID PLASTIC APPLIER PATIENT NAME: Karen Zaidi DATE: February 19, 2024 TIME: 1:54 PM PAGER/CONTACT #: [facility] History and physical note* SawyerAsia APRN.CNP - 02/19/2024 1:20 PM EDT HISTORY AND PHYSICAL EXAMINATION SERVICE DATE: 02/19/2024 SERVICE TIME: 1:17 PM PRIMARY CARE PHYSICIAN: Ammon Osborne MD Assessment Patient has the following medical [...] Positive for: peripheral neuropathy (neurontin). Negative for: CLOTH TESTER tumor, delirium, dementia, headaches, multiple sclerosis, seizures, TIA and strokes. Respiratory: Allergies - singulair +lung nodule - routine surveillance Negative for: COPD, current cough, dyspnea, home oxygen, pneumonia within 6 weeks, tobacco use, URI< 2 weeks and obstructive sleep apnea.Asthma: singulair. Cardiovascular: Positive for: abdominal aortic aneurysm (3.2cm) and hyperlipidemia (atorvastatin) Negative for: angina, arrhythmia, CAD, chest pain, CHF, DVT/PE, hypertension and recent AL. GI: Pelvic congestion, abdominal and L flank [...] nephrolithiasis, renal failure and urinary tract infection. LEATHER STAKER: See HPI. 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 Instructions Given to Patient: Instructions located in the after visit summary. Patient given verbal and written preop instructions and voices comprehension and compliance. SIGNATURE: Asia Sawyer APRN.CNP PATIENT NAME: Karen Zaidi DATE: February 19, 2024 TIME: 1:54 PM PAGER/CONTACT #: documented in this encounterSelect Medical Specialty [facility]04-30-2024 History of Present illness Narrative* Sarah Godwin MD - 02/10/2024 9:45 AM EDT [facility] [address] [place] [address], [address] [place] [id number] SUBJECTIVE: Patient ID: Karen Zaidi is a 68 y.o. female presents today for Chief Complaint Patient presents with S/P submandibular gland dilation HPI: Karen Zaidi is a 68 y.o. female seen to follow-up right submandibular duct dilation. Patient was last seen on 12/02/[address] PA-C. She underwent right submandibular duct dilation with steroid irrigation. She notes she is doing well overall. She had a URI about three weeks ago that has now resolved. She was not treated with any medications during her recent infection. Patient is scheduled for autotransplantation of kidney on [facility]20[facility]. She uses Flonase and singular during her symptomatic times. 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 Osteoporosis Pelvic congestion syndrome Peripheral vascular disease ([facility]) Seasonal allergies Submandibular gland swelling 11/12/2023 Visual impairment glasses Past Surgical History: Procedure Laterality Date CATARACT EXTRACTION Bilateral 2018 CHOLECYSTECTOMY COLONOSCOPY COLONOSCOPY N/A 07/23/2018 Performed by Orquidea Salcedo DO at [facility] DENTAL SURGERY 07/2013 implants Diagnostic cerebral angiogram N/A 03/31/2020 Performed by Melissa Morillo MD at [facility] CARDIAC CATH LABS DIAGNOSTIC VENOGRAM OF IVC AND ILEOCABLE, LEFT RENAL VEIN, SELECTIVE LEFT OVARIAN VEIN CONTRAST ANDIVUS VENOGRAMS N/A 07/25/2023 Performed by Erendira Armijo DO at [facility] SPECIAL PROC dilation rt submandibular duct and steroid irrigation Right 11/24/2023 Performed by Sarah Godwin MD at [facility] KIDNEY STONE SURGERY 2019? KNEE CARTILAGE SURGERY MOLE REMOVAL 11/10/2023 right breast OTHER SURGICAL HISTORY 08/31/2020 cranial base ( cranial styloidectomy) 05/2020 also OTHER SURGICAL HISTORY 06/18/2023 venogram OTHER SURGICAL HISTORY 09/09/2023 DIagnostic venogram TUBAL LIGATION Vascular Invasive Diagnostic venogram with IVUS and the ability to measure pressure gradients Bilateral 06/18/2023 Performed by Erendira Armijo DO at [facility] CARDIAC CATH LABS Family History [...] or concerns: . Non-emergent messages received through Fundation may take up to 2 business days [...] to ensure the accuracy of this automated front office coordinator, some errors in front office coordinator may have occurred. documented in this encounterPorter Medical CenterSeldom Seen Adventures04-30-2024 Instructions* Patient Instructions* Ambika Martin - 02/10/2024 [...] or concerns: . Non-emergent messages received through Fundation may take up to 2 business days for a response. documented in this encounterLicking Memorial HospitalFutubank Beaumont [id number] Miscellaneous Notes* Telephone Encounter - Manuela Muñoz - 01/13/2024 10:27 AM EDT [facility] email message to cancel surgery being done robotic procedure instead at the Clinic. documented in this encounterSelect Medical [facility]ty [facility]03-21-2024 Miscellaneous Notes* Telephone Encounter - Rina Fox MD - 01/01/2024 9:43 AM EDT Sounds good thanks * Telephone Encounter - Estephania Felton - 01/01/2024 9:24 AM EDT Mrs. Zaidi called to let Dr. Fox know that Urology is able to do the proposed procedure robotically and that she is scheduled to have it done on March 02. 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 Venous duplex US - UE 07/18/23: - [...] (FLONASE) 50 mcg/actuation nasal spray Use 1 Rugby in the nose as needed for cold/allergy [...] is optimally prepared for the surgery Chip Chowdary MD documented in this encounterSelect Medical Specialty [facility]03-11-2024 History of Present illness Narrative* Radu Deleon MD - 12/22/2023 2:30 PM EDT Images from the original note were not included. PATIENT: Karen Zaidi [id number] NEW PATIENT REFERRING MD: Rina Fox 12/20/2023 [...] region (feels like sitting on cucumber) [place] this started one year ago. Thought it [...] fluticasone (FLONASE) 50 mcg/actuation nasal spray 1 Rugby, NASAL, NEEDED, Take in allergy season
gabapentin [...] performed due to technical problems in the excavation laborer. Venous duplex US - UE 07/18/23: - [...] for renal vein transposition (msg sent through Fundation) Scribe Attestation: By signing my name below, [...] Deleon MD [facility] On[facility] Medical Decision Making: Problems: Moderate: New problem with uncertain prognosis Data: Unique test result(s) reviewed: 1 Unique test(s) ordered: 1 Risk: Moderate: Moderate risk from testing/treatment Medical Decision Making Level: 4 - Moderate documented in this encounterSelect Medical Specialty Hospital [facility]03-11-2024 Nurse Note* Birgit Cook OCCA - 12/22/2023 1:47 PM EDTSummary: Bladder Scan Patient PVR recorded: 0 mL LUCIAN Rodriguez documented in this encounterSelect Medical Specialty Hospital [facility]03-07-2024 History of Present illness Narrative* Rina Fox MD - 12/18/2023 12:00 PM EST Images from the original note were not included. Heart , Vascular [facility] Thoracic [facility] DEPARTMENT OF VASCULAR SURGERY OUTPATIENT VISIT DATE [...] performed due to technical problems in the excavation laborer. Venous duplex US - UE 07/18/23: - [...] (FLONASE) 50 mcg/actuation nasal spray Use 1 Rugby in the nose as needed for cold/allergy [...] 2023 TIME: 8:49 AM documented in this encounterSelect Medical Specialty [facility]03-01-2024 Miscellaneous Notes* Telephone Encounter - Ely Hodge - 12/12/2023 3:53 PM EST Appt scheduled 12/18/[address] Fox * Telephone Encounter - Lulu Hernandez RN - 12/11/2023 12:[address] Cole office documentation Called and informed patient that Dr. Alarcon and Dr. Hdz recommended surgical bypass for the left renal vein stenosis, thus she needs to schedule the appointment with Vascular Surgery now. She had no further questions . * Telephone Encounter - Estephania Felton - 12/11/2023 8:25 AM EST Mrs. Zaidi was referred to Vascular Surgery by Dr. Alarcon for Nutcracker phenomenon of the renal vein. She was referred back to Dr. Alarcon for pelvic congestion but the patient is confused because she wasreferred to VS by Dr. Alarcon. I will ask the triage nurse to review her records so she can be scheduled appropriately. Estephania Mojica Church Musician documented in this encounterSelect Medical Specialty [facility]02-20-2024 History of Present illness Narrative* Matthew Way PA-C - 12/02/2023 12:45 PM EST [facility] [address] [place] [address], [address] [place] [phone] SUBJECTIVE: Patient ID (1955): Karen Zaidi is [...] COLONOSCOPY COLONOSCOPY N/A 07/23/2018 Performed by Orquidea Salcedo DO at [facility] DENTAL SURGERY 07/2013 implants Diagnostic cerebral angiogram N/A 03/31/2020 Performed by Melissa Morillo MD at [facility] CARDIAC CATH LABS DIAGNOSTIC VENOGRAM OF IVC AND ILEOCABLE, LEFT RENAL VEIN, SELECTIVE LEFT OVARIAN VEIN CONTRAST ANDIVUS VENOGRAMS N/A 07/25/2023 Performed by Erendira Armijo DO at [facility] SPECIAL PROC dilation rt submandibular duct and steroid irrigation Right 11/24/2023 Performed by Sarah Godwin MD at [facility] KIDNEY STONE SURGERY 2019? KNEE CARTILAGE SURGERY MOLE REMOVAL 11/10/2023 right breast OTHER SURGICAL HISTORY 08/31/2020 cranial base ( cranial styloidectomy) 05/2020 also OTHER SURGICAL HISTORY 06/18/2023 venogram OTHER SURGICAL HISTORY 09/09/2023 DIagnostic venogram TUBAL LIGATION Vascular Invasive Diagnostic venogram with IVUS and the ability to measure pressure gradients Bilateral 06/18/2023 Performed by Erendira Armijo DO at [facility] CARDIAC CATH LABS Family History [...] this chart were generated using voice recognition M*RedMart dictation software. Although every effort was made to ensure the accuracy of this automated front office coordinator, some errors in front office coordinator may have occurred. Matthew Way PA-C 12/02/23 1258 documented in this encounterLicking Memorial HospitalBoomWriter Media [id number] Miscellaneous Notes* Telephone Encounter - Oliver Hurley - 11/20/2023 12:44 PM EST PATIENT NOTIFIED WITH SURGERY TIME OF 12:15 . TOLD TO ARRIVE 2 HOURS PRIOR. documented in this encounterKind[facility]-2024 Telephone encounter Note* Telephone Encounter - Oliver Edwardser - 11/20/2023 12:44 PM EST PATIENT NOTIFIED WITH SURGERY TIME OF 12:15 . TOLD TO ARRIVE 2 HOURS PRIOR. [facility]01-31-[facility] History and physical note* Augustina Shi APRN-[facility] - 11/12/2023 1:15 PM EST PRE-ADMISSION TESTING HISTORY AND PHYSICAL EXAM DATE: 11/12/23 PCP: AMMON OSBORNE MD HISTORY OF PRESENT ILLNESS: Karen Zaidi, a 68 y.o. White or female, presents to [facility] for a pre-surgical H&P. The patient has been diagnosed with Submandibular gland swelling [R60.0] . 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 De Leon at [place]. 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 Osteoporosis Pelvic congestion syndrome Peripheral vascular disease ([facility]) Seasonal allergies Submandibular gland swelling 11/12/2023 Visual impairment glasses PAST SURGICAL HISTORY: Past Surgical History: Procedure Laterality Date CATARACT EXTRACTION Bilateral 2018 CHOLECYSTECTOMY COLONOSCOPY COLONOSCOPY N/A 07/23/2018 Performed by Orquidea Salcedo DO at [facility] DENTAL SURGERY 07/2013 implants Diagnostic cerebral angiogram N/A 03/31/2020 Performed by Melissa Morillo MD at [facility] CARDIAC CATH LABS DIAGNOSTIC VENOGRAM OF IVC AND ILEOCABLE, LEFT RENAL VEIN, SELECTIVE LEFT OVARIAN VEIN CONTRAST ANDIVUS VENOGRAMS N/A 07/25/2023 Performed by Erendira Armijo DO at [facility] SPECIAL PROC KIDNEY STONE SURGERY 2019? KNEE CARTILAGE SURGERY MOLE REMOVAL 11/10/2023 right breast OTHER SURGICAL HISTORY 08/31/2020 cranial base ( cranial styloidectomy) 05/2020 also OTHER SURGICAL HISTORY 06/18/2023 venogram OTHER SURGICAL HISTORY 09/09/2023 DIagnostic venogram TUBAL LIGATION Vascular Invasive Diagnostic venogram with IVUS and the ability to measure pressure gradients Bilateral 06/18/2023 Performed by Erendira Armijo DO at [facility] CARDIAC CATH LABS FAMILY HISTORY: [...] the most recent lab values available in [facility] at the time ofthe office visit and additional labs may have been drawn since that time. ASSESSMENT / DIAGNOSIS: Submandibular gland swelling [R60.0] PLAN: Karen Zaidi is scheduled for Linked Surgery: Sialendoscopy Right Submandibular Duct - Right on 11/24/[address] Godwin. Augustina Shi APRN-COLORED LIQUID PLASTIC APPLIER 11/12/23 1442 [employer] Work Phone: 1(805) 439-570501-31-2024 History and physical note* Augustina Goodman ED Shi - 11/12/2023 1:15 PM EST PRE-ADMISSION TESTING HISTORY AND PHYSICAL EXAM DATE: 11/12/23 PCP: AMMON OSBORNE MD HISTORY OF PRESENT ILLNESS: Karen Zaidi, a 68 y.o. White or female, presents to [facility] for a pre-surgical H&P. The patient has been diagnosed with Submandibular gland swelling [R60.0] . 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 De Leon at [place]. 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 Osteoporosis Pelvic congestion syndrome Peripheral vascular disease ([facility]) Seasonal allergies Submandibular gland swelling 11/12/2023 Visual impairment glasses PAST SURGICAL HISTORY: Past Surgical History: Procedure Laterality Date CATARACT EXTRACTION Bilateral 2018 CHOLECYSTECTOMY COLONOSCOPY COLONOSCOPY N/A 07/23/2018 Performed by Orquidea Salcedo DO at [facility] DENTAL SURGERY 07/2013 implants Diagnostic cerebral angiogram N/A 03/31/2020 Performed by Melissa Morillo MD at [facility] CARDIAC CATH LABS DIAGNOSTIC VENOGRAM OF IVC AND ILEOCABLE, LEFT RENAL VEIN, SELECTIVE LEFT OVARIAN VEIN CONTRAST ANDIVUS VENOGRAMS N/A 07/25/2023 Performed by Erendira Armijo DO at [facility] SPECIAL PROC KIDNEY STONE SURGERY 2019? KNEE CARTILAGE SURGERY MOLE REMOVAL 11/10/2023 right breast OTHER SURGICAL HISTORY 08/31/2020 cranial base ( cranial styloidectomy) 05/2020 also OTHER SURGICAL HISTORY 06/18/2023 venogram OTHER SURGICAL HISTORY 09/09/2023 DIagnostic venogram TUBAL LIGATION Vascular Invasive Diagnostic venogram with IVUS and the ability to measure pressure gradients Bilateral 06/18/2023 Performed by Erendira Armijo DO at [facility] CARDIAC CATH LABS FAMILY HISTORY: [...] the most recent lab values available in [facility] at the time ofthe office visit and additional labs may have been drawn since that time. ASSESSMENT / DIAGNOSIS: Submandibular gland swelling [R60.0] PLAN: Karen Zaidi is scheduled for Linked Surgery: Sialendoscopy Right Submandibular Duct - Right on 11/24/[address] Godwin. ED Jean 11/12/23 1442 documented in this encounterLicking Memorial HospitalBoomWriter Media [id number] Instructions* Patient Instructions* Marielle Rivero RN - 11/12/2023 1:15 PM EST Your surgery/procedure is scheduled at [facility] on 11/24/2011 at per surgeon Arrival Timeper surgeon [facility] Address: [address] [place] [address] in [address]ing lot located on [facility]. Report to the Entrance B. Check in at the information desk the surgery. The waiting room located on the second floor. If you have any questions prior to surgery, please call Pre-Admission Clinic at [phone] between 7:30 am and 4:30 pm Friday through Friday. If you have questions the morning of surgery, please call the Pre-op Department at [phone]. PLEASE FOLLOW THESE INSTRUCTIONS OR YOUR SURGERY [...] would like to schedule therapy at a [facility] facility, please call [phone] ([phone]). Do not use lotions, creams, powders, perfume, [...] RIGHTS AND RESPONSIBILITIES As a patient at [facility], you have the right to: Receive medical care and be informed of who is taking care of you Be treated with dignity and respect Have a family member/telephone sales representative of choice and your physician [...] of hospital charges and payment methods Patient/patient telephone sales representative responsibilities are to: Provide information [...] as promptly as possible documented [facility] Evaluation note* Encounter Date Diagnosis Assessment Notes Treatment Notes Treatment Clinical Notes Sep, Abnormal chest CT (ICD-10 - R93. 89) [employer] Other [id number] History of Present illness Narrative* Sarah Godwin MD - 09/30/2023 3:15 PM EST [facility] - ENT [address] [place] [address], [address] [facility] [id number] SUBJECTIVE: Patient ID: Karen Zaidi is a [...] surgery performed by Dr. De Leon at [facility]. She states that she still had intermittent swelling in the right side of the jaw near the site of previous surgery. She also has a sensation of something being present in the right side of the jaw, which she has been told in the past may be secondary to nerve damage. HISTORY: Past Medical History: Diagnosis Date AAA (abdominal aortic aneurysm) ([facility]) Angina pectoris ([facility]) Aortic aneurysm ([facility]-HCC) Cataract Chest pain Chronic kidney disease stone Chronic rhinitis Dental disease implants Dysphagia, pharyngeal phase Wrangell's syndrome Fractures left arm Headache Jugular vein stenosis Osteoporosis Pelvic congestion syndrome Peripheral vascular disease (CMS-HCC) Seasonal allergies Visual impairment Past Surgical History: Procedure Laterality Date CATARACT EXTRACTION Bilateral 2017 CHOLECYSTECTOMY COLONOSCOPY COLONOSCOPY N/A 07/23/2018 Performed by Orquidea Salcedo DO at [facility] 07/2013 implants Diagnostic cerebral angiogram N/A 03/31/2020 Performed by Melissa Morillo MD at [facility] CARDIAC CATH LABS DIAGNOSTIC VENOGRAM OF IVC AND ILEOCABLE, LEFT RENAL VEIN, SELECTIVE LEFT OVARIAN VEIN CONTRAST ANDIVUS VENOGRAMS N/A 07/25/2023 Performed by Erendira Armijo DO at [facility] SPECIAL PROC KIDNEY STONE SURGERY 2018? [facility] OTHER SURGICAL HISTORY 08/31/2020 cranial base ( cranial styloidectomy) 05/2020 also OTHER SURGICAL HISTORY 06/18/2023 venogram TUBAL LIGATION Vascular Invasive Diagnostic venogram with IVUS and the ability to measure pressure gradients Bilateral 06/18/2023 Performed by Erendira Armijo DO at [facility] CARDIAC CATH LABS Family History [...] nodules or obtain referral to a local signal maintenance technician from her PCP. We discussed endoscopic surgical intervention involving endoscoping approach to the right Upshur'sduct for dilation and steroid irrigation and for assessment for any other abnormalities. I recommended right sialendoscopy for therapeutic dilation of the Warthin's duct on the right and possible stone retrieval and infiltration of steroid. Indications, risks, benefits, and alternatives were discussed. Patient may call [facility] at [phone] to schedule surgery. We discussed that she may benefit from physical therapy for the right temporomandibular joint. Follow up post op. The patient will contact my office if there are any additional questions or concerns: . Non-emergent messages received through [employer] may take up to 2 business days [...] this chart were generated using voice recognition [employer] dictation software. Although every effort was made to ensure the accuracy of this automated front office coordinator, some errors in front office coordinator may have occurred. documented in this encounterPorter Medical CenterThe [facility] House [id number] Instructions* Patient Instructions* Deandre Goodwin - 09/30/2023 [...] were discussed. Patient may call [facility] at [phone] to schedule surgery. We discussed that she may benefit from physical therapy for the right temporomandibular joint. Follow up post op. The patient will contact my office if there are any additional questions or concerns: . Non-emergent messages received through [employer] may take up to 2 business days for a response. documented in this encounterLicking Memorial HospitalBoomWriter Media [id number] Evaluation note* Encounter Date Diagnosis Assessment Notes Treatment Notes Treatment Clinical Notes Aug, Pelvic congestion syndrome (ICD- 10 - N94.89) Referral entered as pt request. Aug,Renal vein occlusion (ICD-10 - I82.3)Referral entered to Dr. Alarcon. [employer] Other 11-14-2023 Miscellaneous Notes* Telephone Encounter - Shanda Mays - 08/26/2023 3:51 PM EST Called, spoke to pt, pulled records from care everywhere and gave her the phone number to Dr. Alarcon office. Advising that she will need an order, patient states here PCP will give her an order. Gave her the fax number as well, advising once she is scheduled with dr. Alarcon office to call us and we will coordinate her appt for the renal stenosis she has. Patient understands and have all numbers needed . * Telephone Encounter - Laura Cowan - 08/22/2023 4:20 PM EST Reason for call: Mrs Zaidi called and would like to re-schedule an appointment with [facility] and cell number: [phone] Diagnosis: pelvic congestion syndrome - renal vein stenosis Laura Jay [facility] Evaluation note* Encounter Date Diagnosis Assessment Notes Treatment Notes Treatment Clinical Notes Jul, Neuropathic pain (ICD-10 - M79.2 ) Continue present meds. Followup w Dr. Godwin. 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 Discussed OTC products that do help other patients with dry mouth. Weight loss noted, encour aged small frequent meals. [employer] Other 09-20-2023 Evaluation note* Encounter Date Diagnosis Assessment Notes Treatment Notes Treatment Clinical Notes Jun, Neuropathic pain (ICD-10 - M79.2 ) Previously on med. 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 Declines referral back to ENT for potential R PE tube. Discussed nasal spray and OTC decongestants that could help discomfort. [employer] Other 08-25-2023 Evaluation note* Encounter Date Diagnosis Assessment Notes Treatment Notes Treatment Clinical Notes May, Thrush (ICD-10 - B37.0) Finish nystatin as prescribed May,bdominal 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, unspecified part (ICD-10 - I71.40)Continue screening a [employer]st. [employer] Other 08-17-2023 Evaluation note* Encounter Date Diagnosis Assessment Notes Treatment Notes Treatment Clinical Notes May, Acute non-recurrent maxillary si nusitis (ICD-10 - J01.00) No testing performed today [...] understanding and is agreeable to treatment plan [employer] Other 05-02-2023 Evaluation note* Encounter Date Diagnosis [...] understanding and is agreeable with treatment plan. [employer] Other 05-02-2023 Evaluation note* Encounter Date Diagnosis Assessment Notes Treatment Notes Treatment Clinical Notes February, Nephrolithiasis (ICD-10 - N20.0) Discussed differential - agrees to imaging and She is established with Dr. Monroe. They advised she go to ER or come here for imaging and assessment. [employer] Other 02-10-2023 Evaluation note* Encounter Date Diagnosis Assessment Notes Treatment Notes Treatment Clinical Notes Nov, Acute recurrent maxillary sinusi tis (ICD-10 - J01.01) No testing performed today. [...] understanding and is agreeable to treatment plan [employer] Other 01-19-2023 Evaluation note* Encounter Date Diagnosis Assessment Notes Treatment Notes Treatment Clinical Notes Oct, Allergic reaction, subsequent en counter (ICD-10 - T78.40XD) Karen Hunter IM [employer] Other 10-16-2022 Evaluation note* Encounter Date Diagnosis Assessment Notes Treatment Notes Treatment Clinical Notes Jul, Contact with and (glaser spected) exposure to covid-19 (ICD-10 - Z20.822) Jul,cute non-recurrent maxillary sinusitis (ICD-10 - J01.00) Advised [...] understanding and is agreeable to treatment plan [employer] Other 12-03-2021 Evaluation note* Encounter Date Diagnosis Assessment Notes Treatment Notes Treatment Clinical Notes Sep, Herpes zoster without complicati on (ICD-10 - B02.9) Take the valacyclovir as prescribed until gone. Use the viscous lidocaine to the rash as needed forpain. Follow-up with your family physician if no improvement in 2 to 3 days. [employer] Other 10-17-2021 Evaluation note* Encounter Date Diagnosis Assessment Notes Treatment Notes Treatment Clinical Notes Jul, Herpes zoster without complicati on (ICD-10 - B02.9) [employer] Other Evaluation noteNo InformationNort Balihoo Other Evaluation note* Diagnosis Nutcracker phenomenon of renal vein- Primary documented in this encounter [facility]* Diagnosis Nutcracker phenomenon of renal vein- Primary Family history of aneurysm Family history of other condition Aortic ectasia, abdominal (HCC) Abdominal aortic ectasia documented in this encounter [facility]* Diagnosis Nutcracker phenomenon of renal vein- Primary Preop testing Preoperative examination, unspecified Nutcracker phenomenon of renal vein Preop testing Preoperative examination, unspecified documented in this encounter [facility]* Diagnosis 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 Preop testing Preoperative examination, unspecified documented in this encounter [facility]* Diagnosis Screening for genitourinary condition Screening for other and unspecified genitourinary condition Nutcracker phenomenon of renal vein Preop testing Preoperative examination, unspecified documented in this encounter [facility]* Diagnosis Screening for genitourinary condition Screening for other and unspecified genitourinary condition Nutcracker phenomenon of renal vein Preop testing Preoperative examination, unspecified documented in this encounter [facility]* Diagnosis Nutcracker phenomenon of renal vein- Primary Abnormal coagulation profile Nutcracker phenomenon of renal vein documented in this encounter [facility]* Diagnosis Preop examination- Primary Preoperative examination, [...] to 3.2 cm. 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 [facility] Diagnosis Encounter for aftercare following kidney transplant- Primary Aftercare following organ transplant Malnutrition of moderate degree (HCC) Malnutrition of moderate degree [facility]* Diagnosis Flank pain- Primary Abdominal pain, unspecified site [facility]* Diagnosis Preop examination- Primary Preoperative examination, unspecified 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..] and myositis, unspecified [facility]* Diagnosis Preop examination- Primary Preoperative examination, unspecified 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 Other disorder of muscle, ligament, and fascia Other hyperlipidemia Ovarian varices Nutcracker phenomenon of renal vein Narcotic drug use Sinus bradycardia on ECG Other specified cardiac dysrhythmias High-tone pelvic floor dysfunction Other specified disorders of female genital organs documented in this encounter [facility]* Diagnosis Preop examination- Primary Preoperative examination, unspecified 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 Other disorder of muscle, ligament, and fascia Other hyperlipidemia Ovarian varices Nutcracker phenomenon of renal vein Narcotic drug use Sinus bradycardia on ECG Other specified cardiac dysrhythmias High-tone pelvic floor dysfunction- Primary Other specified disorders of female genital organs [facility] Diagnosis Preop examination- Primary Preoperative examination, unspecified 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 Other disorder of muscle, ligament, and fascia Other hyperlipidemia Ovarian varices Nutcracker phenomenon of renal vein Narcotic drug use Sinus bradycardia on ECG Other specified cardiac dysrhythmias High-tone pelvic floor dysfunction Other specified disorders of female genital organs documented in this encounter [facility]* Diagnosis Preop examination- Primary Preoperative examination, unspecified 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 Other disorder of muscle, ligament, and fascia Other hyperlipidemia Ovarian varices Nutcracker phenomenon of renal vein Narcotic drug use Sinus bradycardia on ECG Other specified cardiac dysrhythmias Pelvic pain in female- Primary Unspecified symptom associated with female genital organs documented in this encounter [facility]* Diagnosis Pulmonary nodule- Primary Other diseases of lung, not elsewhere classified [facility]* Diagnosis Preop examination- Primary Preoperative examination, [...] of body structure documented in this encounter [facility]* Diagnosis Submandibular gland swelling- Primary Chronic sialoadenitis Sensorineural hearing loss (SNHL), bilateral [facility]* Diagnosis Chronic sialoadenitis- Primary documented in this encounter [facility]* Diagnosis Submandibular gland swelling Chronic sialoadenitis Preop testing- Primary Unspecified pre-operative examination Hearing disorder retrocochlear Unspecified sensorineural hearing loss Submandibular gland swelling Chronic sialoadenitis documented in this encounter [facility]* Diagnosis Submandibular gland swelling- Primary Chronic sialoadenitis documented in this encounter [facility]* Diagnosis Hyperlipidemia, unspecified hyperlipidemia type- Primary documented in this encounter [facility]* Diagnosis Well woman exam with routine gynecological exam Routine gynecological examination Breast cancer screening by mammogram Postmenopausal state Asymptomatic postmenopausal status (age-related) (natural) documented in this encounter [facility]* Diagnosis Preop examination- Primary Preoperative examination, [...] current pathological fracture documented in this encounter [facility] note* Diagnosis Preop examination- Primary Preoperative examination, [...] tear/inj, right knee documented in this encounter [facility]* Diagnosis Preop examination- Primary Preoperative examination, unspecified 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 Other disorder of muscle, ligament, and fascia Other hyperlipidemia Ovarian varices Nutcracker phenomenon of renal vein Narcotic drug use Sinus bradycardia on ECG Other specified cardiac dysrhythmias Osteoporosis, post-menopausal- Primary Senile osteoporosis Coronary artery disease involving kletsel dehe wintun coronary artery of kletsel dehe wintun heart without angina pectoris Family history of [...] Other specified counseling documented in this encounter [facility]* Diagnosis Preop examination- Primary Preoperative examination, [...] Myalgia, other site documented in this encounter [facility]* Diagnosis Preop examination- Primary Preoperative examination, unspecified 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 Other disorder of muscle, ligament, and fascia Other hyperlipidemia Ovarian varices Nutcracker phenomenon of renal vein Narcotic drug use Sinus bradycardia on ECG Other specified cardiac dysrhythmias Vitamin B12 deficiency- Primary Other B-complex deficiencies Heart disease, unspecified documented in this encounter [facility]* Diagnosis Preop examination- Primary Preoperative examination, unspecified 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 Other disorder of muscle, ligament, and fascia Other hyperlipidemia Ovarian varices Nutcracker phenomenon of renal vein Narcotic drug use Sinus bradycardia on ECG Other specified cardiac dysrhythmias Primary osteoarthritis of right knee- Primary Primary localized osteoarthrosis, lower leg [facility]* Diagnosis Pulmonary nodule- Primary Other diseases of lung, not elsewhere classified documented in this encounter [facility] HealthcareEvaluation noteNo assessment information availablePromedica Defiance [facility] Work Phone: Evaluation note* Diagnosis LLQ pain- Primary Abdominal pain, left lower quadrant Rectal bleeding Hemorrhage of rectum and anus documented [facility] this encounter [facility]* Diagnosis Chronic sialoadenitis- Primary Hoarseness Dysphonia Vasomotor rhinitis Allergic rhinitis, cause unspecified documented [facility] this [facility]* Diagnosis Chronic sialoadenitis Submandibular gland swelling Hoarseness Dysphonia Vasomotor rhinitis Allergic rhinitis, cause unspecified Chronic sialoadenitis- Primary Chronic sialoadenitis Hoarseness Dysphonia Vasomotor rhinitis Allergic rhinitis, cause unspecified Submandibular gland swelling documented in this encounter [facility] SystemHistory general Narrative - Reported* Type Description Date Medical History Other seasonal allergic rhinitis Medical Historyeagle syndromeSurgical HistorycholecystectomySurgical History arthroscopic knee surgerySurgical Historyoral surgerySurgical Historycolonoscopy Surgical Historytubal ligationSurgical HistorystyloidectomyHospitalization Historysee above [employer] Other History general Narrative - Reported* Type Description Date Medical History Other seasonal allergic rhinitis Medical Historyeagle syndromeMedical HistoryshinglesSurgical History cholecystectomySurgical Historyarthroscopic knee surgerySurgical Historyoral surgerySurgical HistorycolonoscopySurgical Historytubal ligationSurgical History styloidectomyHospitalization Historysee above [employer] Other History general Narrative - Reported* Type Description Date Medical History Other seasonal allergic rhinitis Medical Historyeagle syndromeMedical HistoryshinglesMedical HistoryRenal stone Surgical HistorycholecystectomySurgical Historyarthroscopic knee surgerySurgical Historyoral surgerySurgical HistorycolonoscopySurgical Historytubal ligation Surgical Historystyloidectomy b/lHospitalization Historysee above [employer] Other Hisegnv general Narrative - Reported* Type Description Date Medical History Other seasonal allergic rhinitis Medical Historyeagle syndromeMedical HistoryshinglesMedical HistoryRenal stone Medical HistoryPelvic venous congestive syndromeSurgical Historycholecystectomy Surgical Historyarthroscopic knee surgerySurgical Historyoral surgerySurgical HistorycolonoscopySurgical Historytubal ligationSurgical Historystyloidectomy b/lHospitalization Historysee above [employer] Other Hisetuf general Narrative - Reported* Type Description Date Medical History Other seasonal allergic rhinitis Medical Historyeagle syndromeMedical HistoryshinglesMedical HistoryRenal stone Medical HistoryPelvic venous congestive syndromeSurgical Historycholecystectomy Surgical Historyarthroscopic knee surgerySurgical Historyoral surgerySurgical HistorycolonoscopySurgical Historytubal ligationSurgical Historystyloidectomy b/lSurgical HistoryVenogramHospitalization Historysee above [employer] Other Hospital Discharge instructionsAmbulatory Orders* Referral to General Surgery Time Frame: 06/16/25, Location: None Selected * Referral to Hematology Time Frame: 06/16/25, Location: None Selected [facility] Work Phone: InstructionsNot on filedocumented in this encounter [facility]InstructionsNot on filedocumented in this encounter [facility] SystemInstructionsNot on filedocumented in this encounter [facility] SystemInstructionsNot on filedocumented in this encounter [facility] SystemInstructionsNot on filedocumented in this encounter [facility] SystemReason for referral (narrative)* Outpatient Procedure (Routine) - AuthorizedSpecialtyDiagnoses / ProceduresReferred By Contact [facility] Diagnoses Nutcracker phenomenon of renal vein Procedures US RENAL ARTERY ALYSON VAS LAB DUP-SCAN ARTL STEVAN ABDL/PEL/SCROT&/RPR ORGN COM iRna Fox MD [address] [place] [address] [facility] [address] [place] [id number] Referral IDStatusReasonStart DateExpiration DateVisits RequestedVisits [id number] Auto-Generated Referral [facility] for referral (narrative)* Outpatient Procedure (Routine) - AuthorizedSpecialtyDiagnoses / ProceduresReferred By ContactReferred To [facility]LLA Diagnoses Nutcracker phenomenon of renal vein Procedures US RENAL VENOUS ALYSON VAS LAB DUP-SCAN ARTL STEVAN ABDL/PEL/SCROT&/RPR ORGN COM Rina Fox MD [address] [place] [id number] [facility] [address] [place] [address] Referral IDStatusReasonStart DateExpiration DateVisits RequestedVisits [id number] Auto-Generated Referral [facility] for referral (narrative)* Outpatient Procedure (Routine) - AuthorizedSpecialtyDiagnoses / ProceduresReferred By ContactReferred To [facility] Diagnoses Nutcracker phenomenon of renal vein Procedures US VENOUS INCOMPETENCY ALYSON VAS LAB DUP-SCAN XTR VEINS COMPLETE BILATERAL STUDY Rina Fox MD [address] [facility] [place] [phone] [address] [place] [id number] Referral IDStatusReasonStart DateExpiration DateVisits RequestedVisits [id number] Auto-Generated Referral [facility] for referral (narrative)* Outpatient Procedure (Routine) - AuthorizedSpecialtyDiagnoses / ProceduresReferred By ContactReferred To [facility] Diagnoses Nutcracker phenomenon of renal vein Preop testing Procedures ECG COMPLETE ECG ROUTINE ECG W/LEAST 12 LDS W/I&R Kira Eduardo APRN.CNP [address] [place] [address] [facility] [address] [place] [address] Referral IDStatusReasonStart DateExpiration DateVisits RequestedVisits [id number] Auto-Generated Referral / [facility] for referral (narrative)No reason for referral information availablePromedica [facility] Work Phone: Reason for visit Narrative* Consult, Test, Treat (Routine) - ClosedSpecialtyDiagnoses / ProceduresReferred By ContactReferred To ContactOrthopedics Diagnoses Primary osteoarthritis of right knee Derangement of unsp meniscus due to old tear/inj, right knee Procedures CONSULT PANEL TO ORTHOPAEDICS OFFICE/OUTPATIENT [facility] 60 MINUTES Gi Siddiqi MD [address] [place] [address] Phone: tel: fax: Referral IDStatusReasonStart DateExpiration DateVisits RequestedVisits [id number] PCP Requested Referral / [facility] Summary Purpose Family History No Family History Records Found Relationship Condition Age at Onset Recorded Date/T daisy mother Cerebral aneurysm Unknown fatherAbdominal aortic aneurysm (AAA)UnknownbrotherDeceasedUnknownfatherDeceased UnknownAneurysmUnknownmotherAneurysmUnknownDeceasedUnknown Advance Directives No Advanced Directives Records Found Advance Directive Response Recorded Date/ Time Advance Directives No May 12 9:54pm Reason for Referral SpecialtyDiagnoses / ProceduresReferred By ContactReferred To Contact Diagnoses Preop testing Procedures ECG 12 lead Ibis Rodriguez MD [address] [facility], [address] [place] [address] Referral IDStatusReasonStart DateExpiration DateVisits RequestedVisits [id number] Review/[id number] / ProceduresReferred By ContactReferred To Contact Diagnoses Pulmonary nodule Procedures CT chest wo IV contrast Dania Warren, DO [address] [place] [address] Referral IDStatusReasonStart DateExpiration DateVisits RequestedVisits [id number] Review/[id number] / ProceduresReferred By ContactReferred To [facility] Diagnoses High-tone pelvic floor dysfunction Augustina Vargas MD [address] [place] [address] [place] [address] Referral IDStatusReasonStrosser DateExpiration DateVisits RequestedVisits [id number]/16/202411/[id number] / Procedures Referred By ContactReferred To [facility] Diagnoses High-tone pelvic floor dysfunction Procedures CONSULT TO PHYSICAL THERAPY PHYSICAL THERAPY EVALUATION HIGH COMPLEX 45 MINS Augustina Vargas MD [address] [place] [address] [facility] [place] [address] Referral IDStatusReasonLavina DateExpiration DateVisits RequestedVisits [id number] PCP Requested Referral Auto-Generated Referral /[id number] / ProceduresReferred By ContactReferred To Contact Diagnoses High-tone pelvic floor dysfunction Augustina Vargas MD [address] [place] [phone] Referral IDStatusReasonStart DateExpiration DateVisits RequestedVisits [id number] / ProceduresReferred By Contact Referred To Contact Diagnoses Nutcracker phenomenon of renal vein Procedures REFER TO PACC - PRE ANESTHESIA CONSULTATION CLINIC OFFICE/OUTPATIENT [facility] 60 MINUTES Chip Chwodary MD [address] [place] [address] Referral IDStatusReasonStart DateExpiration DateVisits RequestedVisits [id number] PCP Requested Referral [id number] / ProceduresReferred By ContactReferred To [facility] Diagnoses Nutcracker phenomenon of renal vein Procedures ECG COMPLETE ECG ROUTINE ECG W/LEAST 12 LDS W/I&R Chip Chowdary MD [address] [place] [address] [facility] [address] [place] [address] Referral [facility]StatusRe[facility] DateExpiration DateVisits RequestedVisits [id number] Review Auto-Generated Referral [id number] / ProceduresReferred By ContactReferred To ContactUrology Diagnoses Nutcracker phenomenon of renal vein Procedures CONSULT TO UROLOGY OFFICE/OUTPATIENT [facility] 60 MINUTES Rina Fox MD [address] [facility] [place] [place] [address] Referral IDStatusReasonStrosser DateExpiration DateVisits RequestedVisits [id number] PCP Requested Referral Reason *FU 10/22 [facility] office - abnormal CT of chest, send notes recently from Dr. Godwin. Diagnosis [address] (R 93.89) Referral Organization [facility] donny Referring Provider First Name Ammon Referring Provider Last Name Dylon Referring Provider Specialty [facility] Referred Organization [facility] Referred Provider Dania Warren Referred Address ,[place], [place],[address] Referred Provider Specialty Pulmonary Di seases Referral Priority Routine General Notes Frankboner, Thea 04:43:51 PM >received today Thea Wilson 10/15/2023 04:45:29 PM >attachments made, notes locked, referral faxed to [facility] officeClinical Notesp: [phone] f: [phone] Reason Pt has all records, images with [facility]. Pt has called [facility] and they recommend she start w Dr. Alarcon for assessment Diagnosis 1 Pelvic congestion sy ndrome (N94.89) Referral Organization [facility] Med fusion donny Referring Provider First Name Ammon Referring Provider Last Name Dylon Referring Provider Specialty [facility] Referred Organization [facility] Referred Provider Shanell Alarcon Referred Address [address] [place] [place], [place],[address] Referred Provider Specialty Diagnostic R adiology Referral Priority Routine Reason 12/18/22 @ 2:20 it tiera palms and soles, drug reaction on abd. please send recent derm note with referral. Diagnosis 1 Allergic reaction, s ubsequent encounter (T78.40XD) Referral Organization [facility] Med fusion Kenneth hines Referring Provider First Name Ammon Referring Provider Last Name Dylon Referring Provider Specialty [facility] Referred Organization [facility] Referred Provider Will Vega Referred Address ,[place], [place],[address] Referred Provider Specialty Allergy/Immu nology Referral Priority [...] visit, subseque nt June 03, 2025 10:48am Chief Complaint Admit Date wellness June 03, 2025 10 :48am Amb Documentation June 09, 2025 10 :55am Amb Documentation June 15, 2025 8:02am [facility] June 16, 2025 9:48am Reason for Visit Admit Date Arteriosclerosis June 03, 2025 10 :48am Medicare annual wellness visit, candye nt June 03, 2025 10:48am Abdominal pain June 16, 2025 9:48am Leukocytosis June 16, 2025 9:48am Pelvic floor dysfunction in female Septe mber 2024 9:48am Chief Complaint Admit Date wellness June 03, 2025 10 :48am Amb Documentation June 09, 2025 10 :55am Amb Documentation June 15, 2025 8:02am [facility] June 16, 2025 9:48am Sinus, Heart Palpitations July 13 11:29am Additional Source Comments INFORMATION SOURCE (unrecogn ized section and content) DATE CREATED AUTHOR 08/08/2018 [facility] DATE CREATED AUTHOR AUTHOR'S ORGANIZ ATION 02/26/2023 [facility] DATE CREATED AUTHOR AUTHOR'S ORGANIZ ATION 05/04/2024 [facility] DATE CREATED AUTHOR AUTHOR'S ORGANIZ ATION 02/03/2025 [facility] DATE CREATED AUTHOR AUTHOR'S ORGANIZ ATION 06/04/2025 [facility] DATE CREATED AUTHOR AUTHOR'S ORGANIZ ATION 06/07/2025 [facility] DATE CREATED AUTHOR AUTHOR'S ORGANIZ ATION 07/06/2025 [facility] DATE CREATED AUTHOR AUTHOR'S ORGANIZ ATION 07/16/2025 [facility] DATE CREATED AUTHOR AUTHOR'S ORGANIZ ATION 07/18/2025 [facility] DATE CREATED AUTHOR AUTHOR'S ORGANIZ ATION 07/27/2025 [facility] DATE CREATED AUTHOR AUTHOR'S ORGANIZ ATION 08/10/2025 [facility] DATE CREATED AUTHOR AUTHOR'S ORGANIZ ATION 08/18/2025 [facility] REASON FOR VISIT (unrecogniz ed section and content) ReasonCommentsAppointmentReasonCommentsPatient QuestionReasonCommentsConsult ReasonCommentsConsultSpecialtyDiagnoses / ProceduresReferred By ContactReferred To ContactUrology Diagnoses Nutcracker phenomenon of renal vein Procedures CONSULT TO UROLOGY OFFICE/OUTPATIENT NEW HIGH MDM 60 MINUTES Rina Fox MD [address] [facility] [place] [place] [address] Referral IDStatusReasonStart DateExpiration DateVisits RequestedVisits [id number] PCP Requested Referral /[id number] UpdateReasonCommentsSurgery Cancelled ReasonCommentsPre-Op ExamReasonCommentsCystoscopy-1Stent ExtractionReason CommentsFollow UpReasonCommentsPelvic PainReasonCommentsbotox authReasonComments Pelvic PainSpecialtyDiagnoses / ProceduresReferred By ContactReferred To Contact [facility] Diagnoses High-tone pelvic floor dysfunction Augustina Vargas MD [address] [place] [address] [place] [address] Referral IDStatusReasonStart DateExpiration DateVisits RequestedVisits [id number]/16/202411/[id number] Problem ReasonCommentsMed Change RequestReasonCommentsOtherPatient UpdateReasonComments Pulmonary Nodules4 month follow upReasonCommentsOrdersPFPTReasonCommentsSNHL ReasonCommentsS/P submandibular gland dilationReasonCommentsPost-op Follow-up ReasonOnset DateCommentsMed [id number]-upReason CommentsWell Women VisitReasonCommentsTrigger Point InjectionSpecialtyDiagnoses / ProceduresReferred By ContactReferred To [facility] Augustina Vargas MD [address] [place] [address] Phone: tel: fax: [place] [phone] Referral IDStatusReasonStart DateExpiration DateVisits RequestedVisits [id number]/[id number] Gen RMPReason CommentsFollow UpDiscuss Dexa results/treatmentReasonCommentsInsurance AuthorizationReasonCommentsTrigger Point InjectionPelvic PainSpecialtyDiagnoses / ProceduresReferred By ContactReferred To ContactVcu Health [facility] Specialist / GYNECOLOGY Diagnoses Other specified disorders of muscle TPI Procedures TRIGGER POINT INJECTION MULTI 1-2 MUSCLE GR TRIGGER POINT INJECTION Self Augustina Vargas MD [address] [place] [address] Phone: tel: fax: Referral IDStatusReasonStart DateExpiration DateVisits RequestedVisits [id number]/17/202512/31/819989NuagchZxlzwinfGjnqyawtzbx Patient Follow UpSpecialtyDiagnoses / ProceduresReferred By ContactReferred To Contact Orthopedics Diagnoses Primary osteoarthritis of right knee Derangement of unsp meniscus due to old tear/inj, right knee Procedures CONSULT PANEL TO ORTHOPAEDICS OFFICE/OUTPATIENT [facility] 60 MINUTES Gi Siddiqi MD [address] [place] [address] Phone: tel: fax: Referral IDStatusReasonStart DateExpiration DateVisits RequestedVisits [id number] PCP Requested Referral /[id number] PainABDONINAL PAIN, REFERRED BY DR OSBORNE, SLIGHT BLOOD IN WIPINGReasonCommentschronic sialoadenitis Source Comments (unrecognize d section and content) [...] or prosecute any alcohol or drug abuse patient.[facility]In the event this information is protected by the Federal Confidentiality of Alcohol and Drug Abuse Patient Records regulations: The Federal rules restrict any use of the information to criminally investigate or prosecute any alcohol or drug abuse patient.[facility] NorthIn the event this information is protected by the Federal Confidentiality of Alcohol and Drug Abuse Patient Records regulations: The Federal rules restrict any use of the information to criminally investigate or prosecute any alcohol or drug abuse patient.[facility] NorthIn the event this information is protected by the Federal Confidentiality of Alcohol and Drug Abuse Patient Records regulations: The Federal rules restrict any use of the information to criminally investigate or prosecute any alcohol or drug abuse patient.[facility] NorthIn the event this information is protected by the Federal Confidentiality of Alcohol and Drug Abuse Patient Records regulations: The Federal rules restrict any use of the information to criminally investigate or prosecute any alcohol or drug abuse patient.[facility] NorthIn the event this information is protected by the Federal Confidentiality of Alcohol and Drug Abuse Patient Records regulations: The Federal rules restrict any use of the information to criminally investigate or prosecute any alcohol or drug abuse patient.[facility] NorthIn the event this information is protected by the Federal Confidentiality of Alcohol and Drug Abuse Patient Records regulations: The Federal rules restrict any use of the information to criminally investigate or prosecute any alcohol or drug abuse patient.[facility] NorthIn the event this information is protected by the Federal Confidentiality of Alcohol and Drug Abuse Patient Records regulations: The Federal rules restrict any use of the information to criminally investigate or prosecute any alcohol or drug abuse patient.[facility] NorthIn the event this information is protected by the Federal Confidentiality of Alcohol and Drug Abuse Patient Records regulations: The Federal rules restrict any use of the information to criminally investigate or prosecute any alcohol or drug abuse patient.[facility] NorthIn the event this information is protected by the Federal Confidentiality of Alcohol and Drug Abuse Patient Records regulations: The Federal rules restrict any use of the information to criminally investigate or prosecute any alcohol or drug abuse patient.[facility] NorthIn the event this information is protected by the Federal Confidentiality of Alcohol and Drug Abuse Patient Records regulations: The Federal rules restrict any use of the information to criminally investigate or prosecute any alcohol or drug abuse patient.[facility] NorthIn the event this information is protected by the Federal Confidentiality of Alcohol and Drug Abuse Patient Records regulations: The Federal rules restrict any use of the information to criminally investigate or prosecute any alcohol or drug abuse patient.[facility] NorthIn the event this information is protected by the Federal Confidentiality of Alcohol and Drug Abuse Patient Records regulations: The Federal rules restrict any use of the information to criminally investigate or prosecute any alcohol or drug abuse patient.[facility] NorthIn the event this information is protected by the Federal Confidentiality of Alcohol and Drug Abuse Patient Records regulations: The Federal rules restrict any use of the information to criminally investigate or prosecute any alcohol or drug abuse patient.[facility] NorthIn the event this information is protected by the Federal Confidentiality of Alcohol and Drug Abuse Patient Records regulations: The Federal rules restrict any use of the information to criminally investigate or prosecute any alcohol or drug abuse patient.[facility] NorthIn the event this information is protected by the Federal Confidentiality of Alcohol and Drug Abuse Patient Records regulations: The Federal rules restrict any use of the information to criminally investigate or prosecute any alcohol or drug abuse patient.[facility] NorthIn the event this information is protected by the Federal Confidentiality of Alcohol and Drug Abuse Patient Records regulations: The Federal rules restrict any use of the information to criminally investigate or prosecute any alcohol or drug abuse patient.[facility] NorthIn the event this information is protected by the Federal Confidentiality of Alcohol and Drug Abuse Patient Records regulations: The Federal rules restrict any use of the information to criminally investigate or prosecute any alcohol or drug abuse patient.[facility] NorthIn the event this information is protected by the Federal Confidentiality of Alcohol and Drug Abuse Patient Records regulations: The Federal rules restrict any use of the information to criminally investigate or prosecute any alcohol or drug abuse patient.[facility] NorthIn the event this information is protected by the Federal Confidentiality of Alcohol and Drug Abuse Patient Records regulations: The Federal rules restrict any use of the information to criminally investigate or prosecute any alcohol or drug abuse patient.[facility] NorthIn the event this information is protected by the Federal Confidentiality of Alcohol and Drug Abuse Patient Records regulations: The Federal rules restrict any use of the information to criminally investigate or prosecute any alcohol or drug abuse patient.[facility] NorthIn the event this information is protected by the Federal Confidentiality of Alcohol and Drug Abuse Patient Records regulations: The Federal rules restrict any use of the information to criminally investigate or prosecute any alcohol or drug abuse patient.[facility] NorthIn the event this information is protected by the Federal Confidentiality of Alcohol and Drug Abuse Patient Records regulations: The Federal rules restrict any use of the information to criminally investigate or prosecute any alcohol or drug abuse patient.[facility] NorthIn the event this information is protected by the Federal Confidentiality of Alcohol and Drug Abuse Patient Records regulations: The Federal rules restrict any use of the information to criminally investigate or prosecute any alcohol or drug abuse patient.[facility] NorthIn the event this information is protected by the Federal Confidentiality of Alcohol and Drug Abuse Patient Records regulations: The Federal rules restrict any use of the information to criminally investigate or prosecute any alcohol or drug abuse patient.[facility] NorthIn the event this information is protected by the Federal Confidentiality of Alcohol and Drug Abuse Patient Records regulations: The Federal rules restrict any use of the information to criminally investigate or prosecute any alcohol or drug abuse patient.[facility] NorthIn the event this information is protected by the Federal Confidentiality of Alcohol and Drug Abuse Patient Records regulations: The Federal rules restrict any use of the information to criminally investigate or prosecute any alcohol or drug abuse patient.[facility] NorthIn the event this information is protected by the Federal Confidentiality of Alcohol and Drug Abuse Patient Records regulations: The Federal rules restrict any use of the information to criminally investigate or prosecute any alcohol or drug abuse patient.[facility] NorthIn the event this information is protected by the Federal Confidentiality of Alcohol and Drug Abuse Patient Records regulations: The Federal rules restrict any use of the information to criminally investigate or prosecute any alcohol or drug abuse patient.[facility] NorthIn the event this information is protected by the Federal Confidentiality of Alcohol and Drug Abuse Patient Records regulations: The Federal rules restrict any use of the information to criminally investigate or prosecute any alcohol or drug abuse patient.[facility] NorthIn the event this information is protected by the Federal Confidentiality of Alcohol and Drug Abuse Patient Records regulations: The Federal rules restrict any use of the information to criminally investigate or prosecute any alcohol or drug abuse patient.[facility] NorthIn the event this information is protected by the Federal Confidentiality of Alcohol and Drug Abuse Patient Records regulations: The Federal rules restrict any use of the information to criminally investigate or prosecute any alcohol or drug abuse patient.[facility] NorthIn the event this information is protected by the Federal Confidentiality of Alcohol and Drug Abuse Patient Records regulations: The Federal rules restrict any use of the information to criminally investigate or prosecute any alcohol or drug abuse patient.[facility] NorthIn the event this information is protected by the Federal Confidentiality of Alcohol and Drug Abuse Patient Records regulations: The Federal rules restrict any use of the information to criminally investigate or prosecute any alcohol or drug abuse patient.[facility] NorthIn the event this information is protected by the Federal Confidentiality of Alcohol and Drug Abuse Patient Records regulations: The Federal rules restrict any use of the information to criminally investigate or prosecute any alcohol or drug abuse patient.[facility] NorthIn the event this information is protected by the Federal Confidentiality of Alcohol and Drug Abuse Patient Records regulations: The Federal rules restrict any use of the information to criminally investigate or prosecute any alcohol or drug abuse patient.[facility] NorthIn the event this information is protected by the Federal Confidentiality of Alcohol and Drug Abuse Patient Records regulations: The Federal rules restrict any use of the information to criminally investigate or prosecute any alcohol or drug abuse patient.[facility] NorthIn the event this information is protected by the Federal Confidentiality of Alcohol and Drug Abuse Patient Records regulations: The Federal rules restrict any use of the information to criminally investigate or prosecute any alcohol or drug abuse patient.[facility] NorthIn the event this information is protected by the Federal Confidentiality of Alcohol and Drug Abuse Patient Records regulations: The Federal rules restrict any use of the information to criminally investigate or prosecute any alcohol or drug abuse patient.[facility] NorthIn the event this information is protected by the Federal Confidentiality of Alcohol and Drug Abuse Patient Records regulations: The Federal rules restrict any use of the information to criminally investigate or prosecute any alcohol or drug abuse patient.[facility] NorthIn the event this information is protected by the Federal Confidentiality of Alcohol and Drug Abuse Patient Records regulations: The Federal rules restrict any use of the information to criminally investigate or prosecute any alcohol or drug abuse patient.[facility] NorthIn the event this information is protected by the Federal Confidentiality of Alcohol and Drug Abuse Patient Records regulations: The Federal rules restrict any use of the information to criminally investigate or prosecute any alcohol or drug abuse patient.[facility] Care Teams (unrecognized sec tion and content) Team MemberRelationshipSpecialtyStart DateEnd Date Ammon Osborne MD [address] [facility] [place] [address] ReferringFamily Nefcqkzd57/27/23Team MemberRelationshipSpecialtyStart DateEnd Date Ammon Osborne MD [address] [facility] [place] [address] ReferringFamily Ybtnsuhm42/27/23Team MemberRelationshipSpecialtyStart DateEnd Date Ammon Osborne MD [address] [facility] [place] [address] PCP - [facility]Ph[facility] Medicine12/18/23 Ammon Osborne MD [address] [facility] [place] [address] ReferringFami Frxqaxgh22/27/23Team MemberRelationshipSpecialtyStart DateEnd Date Ammon Osborne MD [address] [facility] [place] [address] PCP - Generalmi Medicine12/18/23 Ammon Osborne MD [address] [facility] [place] [address] ReferringFamily Vwjctqol83/27/23Team MemberRelationshipSpecialtyStart DateEnd Date Ammon Osborne MD [address] [facility] [place] [address] PCP - Generalmily Medicine12/18/23 Ammon Osborne MD [address] [facility] [place] [address] ReferringFamily Bamsscgs04/27/23Team MemberRelationshipSpecialtyStart DateEnd Date Ammon Osborne MD [address] [facility] [place] [address] PCP - GeneralFamily Medicine12/18/23 Ammon Osborne MD [address] [facility] [place] [address] ReferringFamily Dswnokcj64/27/23Team MemberRelationshipSpecialtyStart DateEnd Date Ammon Osborne MD [address] [facility] [place] [address] PCP - Generalmily Medicine12/18/23 Ammon Osborne MD [address] [facility] [place] [address] ReferringFamily Kktsidac09/27/23Team MemberRelationshipSpecialtyStart DateEnd Date Ammon Osborne MD [address] [facility] [place] [address] PCP - GeneralFamily Medicine12/18/23 Ammon Osborne MD [address] [facility] [place] [address] ReferringFamily Fwpfskwr95/27/23Team MemberRelationshipSpecialtyStart DateEnd Date Ammon Osborne MD [address] [facility] [place] [address] PCP - GeneralFamily Medicine12/18/23 Ammon Osborne MD [address] [facility] [place] [address] ReferringFamily Tldoiqad96/27/23Team MemberRelationshipSpecialtyStart DateEnd Date Ammon Osborne MD [address] [facility] [place] [address] PCP - Generalmily Medicine12/18/23 Ammon Osborne MD [address] [facility] [place] [address] ReferringPhaneuf Hospital Ssfrqzww69/27/23Team MemberRelationshipSpecialtyStart DateEnd Date Ammon Osborne MD [address] [facility] [place] [address] PCP - Generalmi Medicine12/18/23 Ammon Osborne MD [address] [facility] [place] [address] ReferringFamily Bojextpl72/27/23Team MemberRelationshipSpecialtyStart DateEnd Date Ammon Osborne MD [address] [facility] [place] [address] PCP - Generalmi Medicine12/18/23 Ammon Osborne MD [address] [facility] [place] [address] ReferringFami Mwmexgil92/27/23Team MemberRelationshipSpecialtyStart DateEnd Date Ammon Osborne MD [address] [facility] [place] [address] PCP - GeneralFamily Medicine12/18/23 Ammon Osborne MD [address] [facility] [address] ReferringFamily Cdlvqtzv25/27/23Team MemberRelationshipSpecialtyStart DateEnd Date Ammon Osborne MD [address] [facility] [address] PCP - GeneralFamily Medicine12/18/23 Ammon Osborne MD [address] [facility] [address] ReferringFamily Xaoisgnv10/27/23Team MemberRelationshipSpecialtyStart DateEnd Date Ammon Osborne MD [address] [facility] [address] PCP - GeneralFamily Medicine12/18/23 Ammon Osborne MD [address] [facility] [address] ReferringFamily Qwpwyils29/27/23Team MemberRelationshipSpecialtyStart DateEnd Date Ammon Osborne MD [address] [place] [address] PCP - GeneralFamily Medicine12/18/23 Ammon Osborne MD [address] [place] [address] ReferringFamily Atdyiipc33/27/23Team MemberRelationshipSpecialtyStart DateEnd Date Ammon Osborne MD [address] [facility] [place] [address] PCP - Generalmily Medicine12/18/23 Ammon Osborne MD [address] [facility] [place] [address] ReferringFamily Jefezzgd51/27/23Team MemberRelationshipSpecialtyStart DateEnd Date Ammon Osborne MD [address] [facility] [place] [address] [facility] - [facility]12/18/23 Ammon Osborne MD [address] [facility] [place] [address] ReferringFamily Srbbbthk12/27/23Team MemberRelationshipSpecialtyStart DateEnd Date Ammon Osborne MD [address] [facility] [place] [address] PCP - Generalmi Medicine12/18/23 Ammon Osborne MD [address] [facility] [place] [address] ReferringFamily Hyqemygx29/27/23Team MemberRelationshipSpecialtyStart DateEnd Date Ammon Osborne MD [address] [facility] [place] [address] PCP - Generalmi Medicine12/18/23 Ammon Osborne MD [address] [facility] [place] [address] ReferringFamily Mzcuarnv67/27/23Team MemberRelationshipSpecialtyStart DateEnd Date Ammon Osborne MD [address] [facility] [address] PCP - GeneralFamily Medicine12/18/23 Ammon Osborne MD [address] [facility] [place] [address] ReferringFamily Ihfhwmhm40/27/23Team MemberRelationshipSpecialtyStart DateEnd Date Ammon Osborne MD [address] [facility] [place] [address] PCP - Generalmily Medicine12/18/23 Ammon Osborne MD [address] [facility] [place] [address] ReferringFamily Fuyfflst31/27/23Team MemberRelationshipSpecialtyStart DateEnd Date Ammon Osborne MD [address] [facility] [place] [address] PCP - GeneralFamily Medicine12/18/23 Ammon Osborne MD [address] [facility] [address] ReferringFamily Ruynrhdz11/27/23Team MemberRelationshipSpecialtyStart DateEnd Date Ammon Osborne MD [address] [facility] [place] [address] PCP - Generalmily Medicine03/18/23Team MemberRelationshipSpecialtyStart DateEnd Date Ammon Osborne MD [address] [facility] [place] [address] PCP - Generalmily Medicine03/18/23Team MemberRelationshipSpecialtyStart DateEnd Date Ammon Osborne MD [address] [facility] [place] [address] PCP - GeneralFamily Medicine12/18/23 Ammon Osborne MD [address] [facility] [place] [address] ReferringFamily Cahfinaj79/27/23Team MemberRelationshipSpecialtyStart DateEnd Date Ammon Osborne MD [address] [place] [address] PCP - General06/18/18Team MemberRelationshipSpecialtyStart DateEnd Date Ammon Osborne MD [address] [place] [address] PCP - General06/18/18Team MemberRelationshipSpecialtyStart DateEnd Date Ammon Osborne MD [address] [place] [address] PCP - General06/18/18Team MemberRelationshipSpecialtyStart DateEnd Date Ammon Osborne MD [address] [place] [address] PCP - General9/6/18Team MemberRelationshipSpecialtyStart DateEnd Date Ammon Osborne MD [address] [place] [address] PCP - General06/18/18Team MemberRelationshipSpecialtyStart DateEnd Date Ammon Osborne MD [address] [place] [address] PCP - General06/18/18Team MemberRelationshipSpecialtyStart DateEnd Date Ammon Osborne MD [address] [facility] [place] [address] PCP - Generalmily Medicine03/18/23Team MemberRelationshipSpecialtyStart DateEnd Date Ammon Osborne MD [address] [facility] [place] [address] PCP - Generalmily Medicine03/18/23Team MemberRelationshipSpecialtyStart DateEnd Date Ammon Osborne MD [address] [facility] [place] [address] PCP - GeneralFamily Medicine03/18/23Team MemberRelationshipSpecialtyStart DateEnd Date Ammon Osborne MD [address] [facility] [place] [address] PCP - GeneralFamily Medicine12/18/23 Ammon Osborne MD [address] [facility] [place] [address] ReferringFamily Daenamrg90/27/23Team MemberRelationshipSpecialtyStart DateEnd Date Ammon Osborne MD [address] [facility] [place] [address] [facility] - [facility]12/18/23 Ammon Osborne MD [address] [facility] [place] [address] ReferringPhaneuf Hospital Gnzuemqi06/27/23Team MemberRelationshipSpecialtyStart DateEnd Date Ammon Osborne MD [address] [facility] [place] [address] PCP - [facility]12/18/23 Ammon Osborne MD [address] [facility] [place] [address] ReferringFloyd [facility]k [facility]09/08/23Team MemberRelationshipSpecialtyStart DateEnd Date Ammon Osborne MD [address] [facility] [place] [address] [facility] - [facility] Medicine12/18/23 Ammon Osborne MD [address] [facility] [place] [address] ReferringFloyd Polk Medical Center09/08/23Team MemberRelationshipSpecialtyStart DateEnd Date Ammon Osborne MD [address] [facility] [place] [address] PCP - [facility] Medicine12/18/23 Ammon Osborne MD [address] [facility] [place] [address] [facility]09/08/23Team MemberRelationshipSpecialtyStart DateEnd Date Ammon Osborne MD PCP - [facility]03/18/23Team MemberRelationshipSpecialtyStart DateEnd Date Ammon Osborne MD PCP - [facility]03/18/23 Team Status: Active Member Role Status Dates Ammon Osborne MD Primary Care Provider Active Team Status: Active Member Role Status Dates Ammon Osborne MD Primary Care Provider Active Start: May 04, 2025 Outside ProviderAttending ProviderActiveStart: May 04, 2025 Team Status: Inactive Member Role Status Dates Ammon Osborne MD Primary Care Provider Active Start: June 03, 2025 End: June 03, 2025Ammon Osborne MDAttending ProviderActiveStart: June 03, 2025 End: June 03, 2025 Team Status: Active Member Role Status Dates Ammon Osborne MD Primary Care Provider Active Start: June 06, 2025 Malia Melendrezending ProviderActiveStart: June 06, 2025 Team Status: Active Member Role Status Dates Ammon Osborne MD Primary Care Provider Active Start: June 07, 2025 Mike Yoder ProviderActiveStart: June 07, 2025 Team Status: Active Member Role Status Dates Johan Martinez MD Attending Provider Active Sta rt: June 08, 2025 Team Status: Active Member Role Status Dates Johan Martinez MD Attending Provider Active Sta rt: June 09, 2025 Team Status: Active Member Role Status Dates Ammon Osborne MD Primary Care Provider Active Start: June 09, 2025 Keturah Rodriguez CMAAttending ProviderActiveStart: June 09, 2025 Team Status: Active Member Role Status Dates Ammon Osborne MD Primary Care Provider Active Start: June 14, 2025 Malia Yoderending ProviderActiveStart: June 14, 2025 Team Status: Active Member Role Status Dates Ammon Osborne MD Primary Care Provider Active Start: June 15, 2025 Keturah Rodriguez , CMAAttending ProviderActiveStart: June 15, 2025 Team Status: Inactive Member Role Status Dates Ammon Osborne MD Primary Care Provider Active Start: June 16, 2025 End: June 16, 2025Ammon Osborne MDAttending ProviderActiveStart: June 16, 2025 End: June 16, 2025Team MemberRelationshipSpecialtyStart DateEnd Date Ammon Osborne MD [address] [place], [place] [id number] PCP General06/18/18 Team Status: Active Member Role Status Dates Ammon Osborne MD Primary Care Provider Active Start: June 28, 2025 Neelima Ceballos , MDAttending ProviderActiveStart: June 28, 2025 Team Status: Inactive Member Role Status Dates Ammon Osborne MD Primary Care Provider Active Start: July 13, 2025 End: July 13, 2025Ammon Osborne MDAttending ProviderActiveStart: July 13, 2025 End: July 13, 2025 Team Status: Active Member Role Status Dates Ammon Osborne MD Primary Care Provider Active Start: July 13, 2025 Ammon Osborne MDAttending ProviderActiveStart: July 13, 2025 Team Status: Active Member Role Status Dates Ammon Osborne MD Primary Care Provider Active Start: July 13, 2025 Ammon Osborne MDOther ProviderActiveStart: July 13, 2025 Aline Tolbert , MDAttending ProviderActiveStart: July 13, 2025 Team MemberRelationshipSpecialtyStart DateEnd Date Ammon Osborne MD [address] [place], [place] [phone] [facility]06/18/18Team MemberRelationshipSpecialtyStart DateEnd Date Ammon Osborne MD [address] [place] [address] PCP - General06/18/18Te MemberRelationshipSpecialtyStart DateEnd Date Ammon Osborne MD [address] [place] [address] PCP - [facility]06/18/18Te MemberRelationshipSpecialtyStart DateEnd Date Ammon Osborne MD PCP - [facility]03/18/23Te MemberRelationshipSpecialtyStart DateEnd Date Ammon Osborne MD [facility] - [facility]03/18/23 Goals (unrecognized section and content) Goals may [...] BE BASED ON THE PRIMARY CLINICAL RECORDS. [facility]. provides no warranty or guarantee of the accuracy or completeness of information in this document.
[2025-09-16 11:46] LABS: Hematocrit 33.0 % (36.0-48.0); Hemoglobin 10.8 g/dL (12.0-16.0); Mean Corpuscular HGB Conc 32.7 g/dL (29.9-35.2); Mean Corpuscular Hemoglobin 31.2 pg (26.7-34.0); Mean Corpuscular Volume 95.4 fL (81.0-99.0); Platelet Count 178 10^3/uL (150-450); Red Blood Count 3.46 10^6/uL (4.20-5.40); White Blood Count 2.8 10^3/uL (4.0-11.0)
[2025-09-16 12:12] LABS: Cholesterol 182 mg/dL (<=200); HDL Cholesterol 94 mg/dL (40-60); Triglycerides 80 mg/dL (<=150); VLDL CHOLESTEROL 16.0 mg/dL
[2025-09-16 12:13] LABS: Alanine Aminotransferase 37 U/L (14-59); Albumin Globulin Ratio 1.2; Albumin Level 3.9 g/dL (3.4-5.0); Alkaline Phosphatase 86 U/L (46-116); Anion Gap 11.6; Aspartate Amino Transferase 27 U/L (15-37); Blood Urea Nitrogen 18.0 mg/dL (7.0-18.0); Calcium 9.1 mg/dL (8.5-10.1); Carbon Dioxide 30.2 mmol/L (21.0-32.0); Chloride 106 mmol/L (98-107); Estimated GFR (African America >60 (>=60 mL/min/1.73m^2); Estimated GFR (Non-African Ame >60 (>=60 mL/min/1.73m^2); Globulin 3.3 g/dL; Glucose 97 mg/dL (74-106); Potassium 3.8 mmol/L (3.5-5.1); Sodium 144 mmol/L (136-145); Total Protein 7.2 g/dL (6.4-8.2)
[2025-09-16 12:51] LABS: Atypical Lymphocytes % Manual 5.0 %; Atypical Lymphocytes Abs Man 0.14; Basophils Abs Manual 0.02 10^3/uL (0.00-0.10); Basophils Percent Manual 1.0 % (0.2-2.0); Eosinophils Absolute Manual 0.39 10^3/uL (0.00-0.70); Eosinophils Percent Manual 14.0 % (0.9-7.0); Lymphocytes Absolute Manual 0.86 10^3/uL (1.20-3.80); Lymphocytes Percent Manual 31.0 % (20.5-60.0); Monocytes Absolute Manual 0.47 10^3/uL (0.30-0.80); Monocytes Percent Manual 17.0 % (1.7-12.0); Segmented Neut Absolute Manual 0.89 10^3/uL (1.4-6.5); Segmented Neutrophils % Manual 32.0 (43.0-75.0)
== END 2025-09-16 11:30 | disposition home or self-care (01) ==
LOC: LAB 11:30
PROVIDERS: PCP Family Medicine; Visit Provider Family Medicine
DX: Z00.00 Encounter for general adult medical examination without abnormal findings (principal); I70.90 Unspecified atherosclerosis; M81.0 Age-related osteoporosis without current pathological fracture; C92.10 Chronic myeloid leukemia, BCR/ABL-positive, not having achieved remission
CPT/HCPCS: 36415; 80053; 80061; 82306; 83090; 85007; 85027

== ENCOUNTER 2025-09-21 08:53 | Outpatient (RCR) | payer MEDICARE, SELFPAY ==
[2025-09-21 09:16] VITALS: BP 118/66; PULSE 66; TEMP 37; O2SAT 96
[2025-09-21] MEDS: DENOSUMAB 60 MG/ML SYRINGE SUBQ (09:31)
[2025-09-21 09:49] LABS: Magnesium 2.1 mg/dL (1.8-2.4)
== END 2025-10-12 23:59 | disposition home or self-care (01) ==
LOC: HEMC 08:53
PROVIDERS: PCP Family Medicine; Visit Provider Internal Medicine Hematology & Oncology
DX: C92.10 Chronic myeloid leukemia, BCR/ABL-positive, not having achieved remission (principal); M81.0 Age-related osteoporosis without current pathological fracture
CPT/HCPCS: 36415; 83735; 96372; J0897

== ENCOUNTER 2025-10-05 09:19 | Outpatient (OUT) | payer MEDICARE, SELFPAY ==
--- OUTSIDE RECORDS SUMMARY | 2024-09-06 05:15 | XMS_ITS ---
Author Organization [facility] Address [address] [place] [address] Care Team Providers Care Pharmacy Resident Name Role Phone Alejandra Osborne M.D. Primary Care Provider Unavail able Ivan Trejo [facility] [phone] REASON FOR VISIT [facility] ER RT HIP PAIN Encounters Encounter Location Date Provider Diagnosis [facility] [facility] [address] [place] [address] [place] [address] 09/06/2024 Ivan Trejo Plan Of Treatment No Information Progress Notes * ZAYNAB LUTZ KDOB: (70 yo F)Acc No.[id number]:09/06/2024 Patient:?ZAYNAB LUTZ :[facility]1955???Age:69 Y ???Sex:FemaleDate:4Phone:[phone]:[address] [place] [phone]:Alejandra Osborne M.D. Subjective: * Chief Complaints: * 1 . [facility] ER RT HIP PAIN. * Medical History: Objective: * Vitals: Assessment: Plan: * Treatment: Forms: * Images: * Electronic signature of Ivan Trejo MD on 10/05/2025 at 09:23 AM ESTSign off status: Pending * Provider: Tamiko Trejo MD Date: 11/06/2023 Generated for Printing/Faxing/eTransmitting on:?10/05/2025 09:23 AM EST
--- OUTSIDE RECORDS SUMMARY | 2025-06-28 05:30 | XMS_ITS ---
Author Organization The [facility] in [place] Address [address] [place] [address] Care Team Providers Care Photocopier Technician Name Role Phone Alejandra Osborne MD Primary Care Provider Unavailab Jaxon Vasquez Unavailable [phone] Neelima Wright Unavailable [phone] REASON FOR VISIT New PT Hem Encounters Encounter Location Date Provider Diagnosis [facility] [place] [address] 06/28/2025 Neelima Wright Plan Of Treatment No Information Progress Notes * ZAYNAB LUTZ KDOB: (70 yo F)Acc No.[id number]:06/28/2025 UNLOCKED PROGRESS NOTE Progress Notes Patient: Moshe ZAYNAB LAKE :?Neelima Ceballos M.D.:1955???Age:69 Y ???Sex:FemaleDate:06/28/2025Phone:[phone]:[address]-[address]Pcp:Alejandra Osborne MD Subjective: * Chief Complaints: * 1 . New PT Hem. * Medical History: Objective: * Vitals: Assessment: Plan: * Treatment: * * Electronic signature of Neelima Wright MD, [phone] on 10/05/2025 at 09:23 AM ESTSign off status: PendingVisit Status:?VOICEMSG (Voice) * Provider: Eloina Ceballos M.D. Date: 0 06/28/2025 Generated for Printing/Faxing/eTransmitting on:?10/05/2025 09:23 AM EST
--- OUTSIDE RECORDS SUMMARY | 2025-07-19 04:30 | XMS_ITS ---
Author Organization The [facility] in [place] Address [address] [place] [address] Care Team Providers Care Traffic I Manager Name Role Phone Alejandra Osborne MD Primary Care Provider Unavailab Jaxon Vasquez Unavailable [phone] JOSE JUAN HUDSON Unavailable [phone] REASON FOR VISIT MD Encounters Encounter Location Date Provider Diagnosis [facility] On[facility] [address] [place] [phone] 07/19/2025 JOSE JUAN HUDSON Plan Of Treatment No Information Progress Notes * ZAYNAB LUTZ KDOB: (70 yo F)Acc No.[id number]:07/19/2025 UNLOCKED PROGRESS NOTE Progress Notes Patient: Moshe ZAYNAB LAKE :?JOSE JUAN HUDSON M.D.:1955???Age:69 Y ???Sex:FemaleDate:07/19/2025Phone:[phone]:[address] [place] [address] [place], [place]-[id number]:Alejandra Osborne MD Subjective: * Chief Complaints: * 1 . MD. * Medical History: Objective: * Vitals: Assessment: Plan: * Treatment: * * Electronic signature of JOSE JUAN HUDSON MD on 10/05/2025 at 09:23 AM ESTSign off status: PendingVisit Status:?PEN (Pending) * Provider: Eloina HUDSON M.D. Date: Generated for Printing/Faxing/eTransmitting on:?10/05/2025 09:23 AM EST
--- OUTSIDE RECORDS SUMMARY | 2025-08-30 04:30 | XMS_ITS ---
Author Organization The [facility] in [place] Address [address] [place] [address] Care Team Providers Care Sand Mill Grinder Name Role Phone Alejandra Osborne MD Primary Care Provider Unavailab Jaxon Vasquez Unavailable [phone] JOSE JUAN HUDSON Unavailable [phone] REASON FOR VISIT MD Encounters Encounter Location Date Provider Diagnosis [facility] On[facility] [address] [place] [address] 08/30/2025 JOSE JUAN HUSDON Plan Of Treatment No Information Progress Notes * ZAYNAB LUTZ KDOB: (70 yo F)Acc No.[id number]:08/30/2025 UNLOCKED PROGRESS NOTE Progress Notes Patient: Moshe ZAYNAB LAKE :?JOSE JUAN HUDSON M.D.:1955???Age:69 Y ???Sex:FemaleDate:08/30/2025Phone:[phone]:[address] [place] [address] [place], [place]-[id number]:Alejandra Osborne MD Subjective: * Chief Complaints: * 1 . MD. * Medical History: Objective: * Vitals: Assessment: Plan: * Treatment: * * Electronic signature of JOSE JUAN HUDSON MD on 10/05/2025 at 09:23 AM ESTSign off status: PendingVisit Status:?CANC (Cancelled) * Provider: Eloina HUDSON M.D. Date: 10/30/2024 Generated for Printing/Faxing/eTransmitting on:?10/05/2025 09:23 AM EST
--- OUTSIDE RECORDS SUMMARY | 2025-10-05 09:23 | XMS_ITS | Clinical Summary ---
Author Organization [facility] Address [address] [place] [address] Care Team Providers Care Leather Toggler Name Role Phone Alejandra Osborne MD Primary Care Provider [phone] Allergies Active AllergyReactionsCriticalityNoted DateCommentsBee Ayjdga1904/12/2024 Other Reaction(s): Comment:Bee Stings Bee VenomRash,LsdnsIbzkkf45/23/2020ClindamycinRash,Hives,Shortness of breathHigh 06/30/2018CodeineGI azzcqidajluVwm32/18/2018 Other Reaction(s): Comment:upset stomach DoxycyclineRash,DnebaYoo95/22/2023oxycycline AmkhmvwOkvfXtv90/22/2023 SybjgjwpewtWuvddbzat34/01/2024seudoephedrine Hcl OfKcrxh7504/12/2024 Medications MedicationSigDispense QuantityRefillsLast FilledStart DateEnd DateStatus Singulair 10 MG tablet 1 (one) time each day at the same timeActive acetaminophen (Tylenol) 500 MG tablet Take 1,000 mg by mouth every 6 (six) hours if neededActive atorvastatin (Lipitor) 20 MG tablet Take 20 mg by mouth in the morning.06/12/2023ctive fluticasone (Flonase) 50 MCG/ACT nasal spray Administer 1 spray into affected nostril(s) in the morning.Active ibuprofen 200 MG tablet Take 400 mg by mouth every 6 (six) hours if neededActive loratadine-pseudoephedrine ER (Claritin-D 12-hour) 5-120 MG 12 hr tablet Take 1 tablet by mouth in the morning and 1 tablet in the evening.Active Calcium Carbonate-Vit D-Min (Caltrate Bone Health Advanced) 600-800 MG-UNIT chewable tablet ChewActive onabotulinumtoxinA (Botox) 100 units injection Inject 100 Units into the shoulder, thigh, or buttocks every 3 tezhmr1405/28/2024 Active cyclobenzaprine (Flexeril) 5 MG tablet Take 5 mg by mouth Daily as qbizgl8205/27/2024ctive Active Problems ProblemNoted DateDiagnosed DatePeripheral vascular awzkaot2703/17/2023Follow-up exam03/17/20230731Mpwrcpgyaisj39/23/2023 Resolved Problems ProblemNoted DateDiagnosed DateResolved DateMalnutrition of moderate degree ([facility])S/P renal omcwpyktkbqcin30Sinus bradycardia on ECG Overview (06/02/2024): Last Assessment & Plan: HR on EKG from today - 54 HR on exam today 60 Denies cardiac symptoms Narcotic drug use Overview (06/02/2024): Last Assessment & Plan: Pain managed with norco PRN 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/2024): Last Assessment & Plan: With pelvic congestion Patient endorses abdominal and L flank pain with radiation to pelvis Other nbkvvakmwsrdeb88 Overview (06/02/2024): Last Assessment & Plan: Managed on Atorvastatin Ovarian Overview (06/02/2024): Last Assessment & Plan: 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 Plan for surgery [place] roefnlkk30/ Overview (06/02/2024): Last Assessment & Plan: Sp styloidectomy Mass of right submandibular zbzxxe33/Neck pain12/01/2023 12/01/2023hronic zcatkauuqhoil95Submandibular gland swelling /Family history of abdominal aortic cmvnhajk86/08/2023 12/01/2023Infrarenal abdominal aortic aneurysm (AAA) without ujbdrmp8008/20/2023 12/01/2023elvic pain/4Chest paincute non intractable tension-type zngtuflv87hronic jfeysruf01/05/2023 06/02/2024haryngeal oauhgltis91Jugular vein stenosis Immunizations ImmunizationAdministration DatesNext DueInfluenza, injectable, quadrivalent, preservative free07/20/2021,07/14/2020,08/11/2019,08/19/2018Pneumococcal Polysaccharide EHYT4744/Zoster, Imglpxqkbiw63/02/2020,07/07/2020 Family History Medical HistoryRelationNameCommentsHeart diseaseFatherHoward DanielHypertension FatherHoward DanielStrokeFatherHoward DanielHeart diseaseMotherMary Edinson HypertensionMotherMary DanielStrokeMotherMary DanielHeart diseaseSibling HypertensionSiblingStrokeSiblingRelationNameStatusCommentsFatherHoward Edinson MotherMary DanielSibling Social History Tobacco UseTypesPacks/DayYears UsedDateSmoking Tobacco: FormerCigarettesPassive Smoke Exposure: PastSmokeless Tobacco: Never Tobacco Cessation:Counseling Given: Not Answered Alcohol UseStandard Drinks/WeekCommentsNever0 (1 standard drink = 0.6 oz pure alcohol)caffeine intake: 2-3 cups per dayCommentsNoSex and Gender InformationValueDate RecordedSex Assigned at BirthNot on fileLegal SexFemale 12/25/2022 7:08 PM EDTGender IdentityNot on fileSexual OrientationNot on file Last Filed Vital Signs Vital SignReadingTime TakenCommentsBlood Keurcwnc950/9206/02/2025 8:52 AM EDT Ichtw9004 8:52 AM EDTTemperature--Respiratory Rate--Oxygen Asplnfrqux34% 06/02/2025 8:52 AM EDTInhaled Oxygen Concentration--Mhcqtc96.5 kg (140 lb) 06/02/2025 8:52 AM IVIEmjezd043.2 cm (5' 7 )06/02/2025 8:52 AM EDTBody Mass Index21.9306/02/2025 8:52 AM EDT Plan of Treatment DateTypeDepartmentCare Team (Latest Contact Info)Ipcqhxjviko14/26/2026 9:00 AM ESTOffice Visit [facility] [address] [place] [phone] Keri Topete PA [address] [place] [address] 06/01/2026 8:45 AM EDTOffice Visit [facility] [address] [place] [phone] Tessa Steven, [address] [place] [address] Insurance Care Teams Team MemberRelationshipSpecialtyStart DateEnd Date Alejandra Osborne MD [address] [place] [phone] PCP - GeneralFamily Medicine03/18/23
--- OUTSIDE RECORDS SUMMARY | 2025-10-05 09:23 | XMS_ITS | Patient Health Record ---
Author Organization [facility] [place] Address [address] [place] [address] Care Team Providers Care Information Technology Technician Name Role Phone Alejandra Osborne MD Primary Care Provider Unavailab Jaxon Vasquez Unavailable [phone] zsudarshanCharamón, Jose Juan Unavailable [phone] TRISTAN, JOSE JUAN Unavailable [phone] Results Component Value Reference Range Notes CBC AUTO DIFF (Not yet revie wed by provider) Interpretation: Performing Lab: Notes/Report: [facility] , White Blood Count 26.5 4.0-11.0 10 3/uL Red Blood Count4.704.20-5.40 10 6/uEWgkvridjjh40.312.0-16.0 g/qZUigrkhshuu17.3 36.0-48.0 %Mean Corpuscular Jykqkw56.081.0-99.0 fLMean Corpuscular Hemoglobin 30.426.7-34.0 pgMean Corpuscular HGB Conc33.829.9-35.2 g/dLRed Cell Distribution Width15.911.0-15.0 %Platelet Xyftb304951-309 10 3/uLMean Platelet Igreeb28.09.5- 13.5 fLPerforming Lab:see noteML - [facility] LBLDH (Not yet reviewed by provider) Interpretation: Performing Lab: Notes/Report: [facility] ,Lactate Xbltsqgsonmhf26918-211 U/LPerforming Lab:see noteML - [facility] LBURIC ACID SERUM (Not yet reviewed by provider) Interpretation: Performing Lab: Notes/Report: [facility] ,Uric Acid6.62.6-6.0 mg/dLPerforming Lab:see noteML - [facility] LB Manual Differential (Not yet reviewed by provider) Interpretation: Performing Lab: Notes/Report: [facility] ,Segmented Neutrophils % Wdavdv32.043.0-75.0Band Neutrophils %2.00-5 % Lymphocytes Percent Zbzbar91.020.5-60.0 %Monocytes Percent Manual5.01.7-12.0 % Eosinophils Percent Manual2.00.9-7.0 %Basophils Percent Manual7.00.2-2.0 % Myelocytes % Manual8.0Blast % Manual0.0Segmented Neut Absolute Fewkbk22.161.4- 6.5 10 3/uLBand Neutrophils Absolute0.50.0-0.3 10 3/uLLymphocytes Absolute Manual3.971.20-3.80 10 3/uLMonocytes Absolute Manual1.320.30-0.80 10 3/uL Eosinophils Absolute Manual0.530.00-0.70 10 3/uLBasophils Abs Manual1.850.00- 0.10 10 3/uLMyelocytes Absolute Manual2.12Blast Absolute Cbisjw8Wudfkhuqfb Lab: see noteML - [facility] LBCBC AUTO DIFF (Not yet reviewed by provider) Interpretation: Performing Lab: Notes/Report: [facility] ,White Blood Count30.44.0-11.0 10 3/uLRESULTS CALLED TO @BY [place] at 0944Red Blood Count4.644.20-5.40 10 6/mBLgoijwgbcl11.012.0-16.0 g/dLHematocrit 41.936.0-48.0 %Mean Corpuscular Rcngxd17.381.0-99.0 fLMean Corpuscular Ilclfubcif07.226.7-34.0 pgMean Corpuscular HGB Conc33.429.9-35.2 g/dLRed Cell Distribution Width16.211.0-15.0 %Platelet Detpn141940-527 10 3/uLMean Platelet Krvatq01.89.5-13.5 fLPerforming Lab:see note - [facility] LB MAGNESIUM (Not yet reviewed by provider) Interpretation: Performing Lab: Notes/Report: [facility] ,Magnesium1.81.8-2.4 mg/dLPerforming Lab:see noteOhio[facility] PROF 14(COMP METB) (Not yet reviewed by provider) Interpretation: Performing Lab: Notes/Report: [facility] ,Yqdntl213551-805 mmol/LPotassium3.53.5-5.1 mmol/OLzwnrwdw6849-562 mmol/LCarbon Ngnevzr73.321.0-32.0 mmol/LAnion Gap14.6Ektcqie29729-113 mg/dLBlood Urea Tekqjgdv17.07.0-18.0 mg/dLCreatinine0.830.55-1.02 mg/dLEstimated GFR ( Gail>60>=60 mL/min/1.73m 2Estimated GFR (Non- Casandra>60>=60 mL/min/1.73m 2BUN Creatinine Ratio15.5Ypcwspv3.68.5-10.1 mg/dLBilirubin Total0.50.2-1.0 mg/dL Aspartate Amino Munvgjekpbt4175-51 U/LAlanine Yrljohksofhotcil6461-59 U/L Alkaline Nlcthfowxng0060-685 U/LTotal Protein7.66.4-8.2 g/dLAlbumin Level4.03.4- 5.0 g/dLGlobulin3.6Albumin Globulin Ratio1.1Performing Lab:see note - [facility] LBHep B Surface Ab (Not yet reviewed by provider) Interpretation: Performing Lab: Notes/Report: [facility] ,Hep B Surface AbNon Reactive. Anti-HBs levels greater than 10 mIU/mL. Anti-HBs undetectable or less than 10 mIU/mL. Non Reactive: Not immune to HBV infection. Reactive: Evidence of HBV immunity. Performing Lab:see noteLC - [facility] LBHep B Core Ab, Tot (Not yet reviewed by provider) Interpretation: Performing Lab: Notes/Report: [facility] ,Hep B Core Ab, TotNegativeNegative Coding Clerks Supervisor: Kamaljit Velarde PhD, Phone: [phone] [address] [place], [place] [id number] Performed at: - [facility] [place] Performing Lab:see noteLC - [facility] LBHBsAg Screen (Not yet reviewed by provider) Interpretation: Performing Lab: Notes/Report: [facility] ,HBsAg ScreenNegativeNegativePerforming Lab:see noteLC - [facility] LBManual Differential (Not yet reviewed by provider) Interpretation: Performing Lab: Notes/Report: [facility] ,Segmented Neutrophils % Otawyp32.043.0-75.0Band Neutrophils %3.00-5 % Lymphocytes Percent Manual8.020.5-60.0 %Monocytes Percent Pbnroq32.01.7-12.0 % Eosinophils Percent Manual6.00.9-7.0 %Basophils Percent Manual5.00.2-2.0 % Segmented Neut Absolute Erhsjg40.451.4-6.5 10 3/uLBand Neutrophils Absolute0.9 0.0-0.3 10 3/uLLymphocytes Absolute Manual2.431.20-3.80 10 3/uLMonocytes Absolute Manual4.250.30-0.80 10 3/uLEosinophils Absolute Manual1.820.00-0.70 10 3/uLBasophils Abs Manual1.520.00-0.10 10 3/uLPerforming Lab:see noteML - [facility] LB Reason For Referral No Information Encounters Encounter Location Date Provider Diagnosis [facility] [address] [place] [address] 06/28/2025 Jose Juangianfranco Wright [facility] [address] [place] [address]/07/2025 JOSE JUANLY HUDSON Plan Of Treatment Pending Test Test Name Order Date CBC AUTO DIFF 06/28/2025 CBC AUTO DIFF 07/19/2025 LDH 06/28/2025 MAGNESIUM 07/19/2025 PROF 14(COMP METB) 07/19/2025 URIC ACID SERUM 06/28/2025 Manual Differential 06/28/2025 Manual Differential 07/19/2025 HBsAg Screen 07/19/2025 Hep B Core Ab, Tot 07/19/2025 Hep B Surface Ab 07/19/2025 Insurance Providers Payer Name Payer Address Payer Phone Subscriber Number Group Number Insured Name Patient Relationship to Insured Coverage Start Date Coverage End Date [place] [address] [place] [address] [id number] Domi LUTZ - [facility] the [facility] [address] [place] [id number], SUSANSelf - patient is the insured
--- OUTSIDE RECORDS SUMMARY | 2025-10-05 09:23 | XMS_ITS | Clinical Summary ---
Author Organization [employer] tem Address [id number] [address] [place] [address] Care Team Providers Care Hat And Cap Opener Name Role Phone Alejandra Osborne MD Primary Care Provider [phone] Allergies Active AllergyReactionsCriticalityNoted DateCommentsBee Venom Protein (Honey Bee)VlxiJfi2912/05/2019ClindamycinHives,Shortness Of Breath,EjuxBghe36/18/2018 CodeineGI LfjmstdbqpdInx39/18/2018 Other Reaction(s): GI intolerance Doxycycline TipwobwArumGzh04/22/2023 Medications MedicationSigDispense QuantityRefillsLast FilledStart DateEnd DateStatus montelukast (SINGULAIR) 10 mg tablet Indications:seasonal allergic rhinitisTake 1 tablet (10 mg total) by mouth nightly Indications: seasonal runny nose.06/18/2018Active fluticasone (FLONASE) 50 mcg/actuation nasal spray Administer 1 spray into each nostril in the morning.Active ibuprofen (ADVIL,MOTRIN) 200 mg tablet Take 2 tablets (400 mg total) by mouth every 6 (six) hours as needed for pain. Active loratadine-pseudoephedrine (LORATADINE-D) 5-120 mg tablet extended release 12 hr Take 1 tablet by mouth every 12 (twelve) hours. 1/2 tablet- keeps right ear open Active CALCIUM CARBONATE-VITAMIN D3 ORAL Take 1,200 mg by mouth in the morning.Active atorvastatin (LIPITOR) 20 mg tablet Take 1 tablet (20 mg total) by mouth in the morning. 90 tablet 4Active Additional Information Patient taking differently: 10 mgoral Daily, Morning, Reported on 08/17/2025 cyclobenzaprine (FLEXERIL) 5 mg tablet Take 2 tablets (10 mg total) by mouth as needed in the morning and 2 tablets (10 mg total) as needed at noon and 2 tablets (10 mg total) as needed in the evening for muscle spasms.Active VITAMIN B COMPLEX ORAL Take 1 capsule by mouth in the morning.Active dasatinib (SPRYCEL) 100 mg chemo tablet Take 1 tablet by mouth Daily after lunch07/22/2025tive ipratropium (ATROVENT) 42 mcg (0.06 %) nasal spray Indications:Vasomotor rhinitisAdminister 2 sprays into each nostril 3 (three) times a day as needed for rhinitis. 15 mL 5Active ondansetron ODT (ZOFRAN ODT) 4 mg disintegrating tablet as needed.5Active prochlorperazine (COMPAZINE) 10 mg tablet Take 1 tablet (10 mg total) by mouth every 8 (eight) hours as needed.07/22/2025 Active cholecalciferol, vitamin D3, 2,000 units tablet Take 1 tablet (2,000 Units total) by mouth in the morning.Active famotidine (PEPCID) 20 mg tablet Take 1 tablet (20 mg total) by mouth in the morning.Active Active Problems ProblemNoted DateDiagnosed GmfpKlugetpbkw18/22/2025Vasomotor ktgwzicz56/22/2025 Submandibular gland ihmsvauv00/26/2023hronic hjyexyqsfyfoy90/26/2023elvic pain 08/20/2023Infrarenal abdominal aortic aneurysm (AAA) without xtbmssr4208/20/2023 Family history of abdominal aortic /08/2023hest pain06/12/2023elvic congestion spehdjkj18/23/2023cute non intractable tension-type headache 03/17/2023hronic lgockfxl05/05/2023eripheral vascular ynyqfdl0803/17/2023 Pharyngeal /05/5518Kjdcglbxwqyx74/23/2023[facility] qlfokfiu84/13/2020 [facility] /17/2020Jugular vein gdighqdb28/17/2020 Encounters DateTypeDepartmentCare HmjeDqhzsxhqorx43/05/2025 11:21 AM ESTAnesthesia Event [facility] [address] [place] [address] Boogie Walker MD Delecke, Richard, SRNA 08/17/2025 11:15 AM EST - 08/17/2025 2:15 PM ESTSurgery [facility] [address] [place] [address] Sarah Palma MD SIALENDOSCOPY WITH ATTEMPT AT DILATION [79094 (CPT??)]08/17/2025 8:51 AM EST - 08/17/2025 3:08 PM ESTHospital Encounter [facility] Surgery [address] [place] [address] Sarah Palma MD Post-op pain (Primary Dx) Discharge Disposition: Home08/17/20258361Fcpcok41/29/2025Results Follow-Up [facility] - ENT [address] [place] [address], [address] [place] [address] neck soft tissue with cjnyywbr27/28/2025 7:14 AM EDT - 08/09/2025 11:59 PM EDTHospital Encounter [facility] - [place] [address] [place] [address] Chronic sialoadenitis Discharge Disposition: Home08/07/20251888Monixl63/23/2025 12:15 PM EDTProcedure visit [facility] On [address] [address] Chronic sialoadenitis (Primary Dx)08/04/20251122Shcjii45/17/2025 10:00 AM EDTOffice Visit [facility] - ENT [address] [place] [address], [address] [place] [address] Sarah Palma MD Chronic sialoadenitis (Primary Dx); Hoarseness; Vasomotor sjlqaeti48/17/2025Telephone [facility] - ENT [address] [facility], [address] [place] [phone] Diandra Duron CMA 07/27/20258181Khrocg94/29/2025 9:29 AM EDTAnesthesia Event [facility] - Surgery [address] [place] [address] [phone] Taj Dumont, DO 07/11/2025 9:15 AM EDT - 07/11/2025 9:45 AM EDTSurgery [facility] - Surgery [address] [place] [address] [phone] Frank Christine, DO COLONOSCOPY DIAGNOSTIC / SCREENING [81074 (CPT??)]07/11/2025 7:02 AM EDT - 07/11/2025 10:14 AM EDTHospital Encounter [facility] - Surgery [address] [place] [address] Frank Christine, DO Left lower quadrant abdominal pain (Primary Dx) Discharge Disposition: Home07/11/20256170Jmcbmi34/24/2025 2:30 PM EDTSupport Visit [facility] - Pre Admit [address] [place] [address] from Last 3 Months Family History Medical HistoryRelationNameCommentsArthritisBrotherEdKnee replacementsEarly deathBrotherEdHeart attackHeart diseaseBrotherEdHypertensionBrotherEdStroke BrotherEdmildAneurysmFatherHowardEarly deathFatherHowardaortic aneurysmHeart diseaseFatherHowardHypertensionFatherHowardAsthmaMaternal Aunt 1Dorothy HypertensionMaternal Aunt 1DorothyHypertensionMaternal Aunt 2BettyStrokeMaternal Aunt 2BettyColon cancerMaternal Uncle 1BernardDiabetesMaternal Uncle 2Edwin AneurysmMotherMaryEarly deathMotherMaryBrain aneurysmHypertensionMotherMary StrokeMotherMaryBrain aneurysmVision lossMotherMaryHeart diseasePaternal Uncle 1 DelbertHypertensionPaternal Uncle 1DelbertHypertensionPaternal Uncle 2Raymond StrokePaternal Uncle 2RaymondHypertensionPaternal Uncle 3EarlAsthmaSon 1Bill Vision lossSon 1BillVision lossSon 2DanAnesthesia problemsNeg HxRelationName StatusCommentsBrotherEdDeceasedFatherHowardDeceasedMaternal Aunt 1DorothyAlive Maternal Aunt 2BettyAliveMaternal GrandfatherDeceasedMaternal Grandmother DeceasedMaternal Uncle 1BernardAliveMaternal Uncle 2EdwinAliveMotherMaryDeceased Paternal GrandfatherDeceasedPaternal GrandmotherDeceasedPaternal Uncle 1Delbert AlivePaternal Uncle 2RaymondAlivePaternal Uncle 3EarlAliveSon 1BillAliveSon 2Dan Alive Social History Tobacco UseTypesPacks/DayYears UsedDateSmoking Tobacco: GaslxhOzoquxjiog902 02/07/1970 - 02/08/2000Passive Smoke Exposure: PastSmokeless Tobacco: Never Tobacco Cessation:Counseling Given: Not Answered Alcohol UseStandard Drinks/WeekCommentsYes0 (1 standard drink = 0.6 oz pure alcohol)2 per monthAUDIT-CAnswerDate RecordedFrequency of Alcohol Consumption Never02/08/2020Average Number of DrinksNot on file02/08/2020Frequency of Binge DrinkingNot on file02/08/2020PHQ-2AnswerDate RecordedTotal Nzcfy765 ChildcareAnswerDate FcwkizqxTvlparhcrDjhdizj78/12/2019EmploymentAnswerDate GjbaaecdEvnkjennspCibknzk72/12/2019Hunger ScreeningAnswerDate RecordedWithin the past 12 months we worried whether our food would run out before we got money to buy more.Never True11/12/2023Within the past 12 months the food we bought just didn't last and we didn't have money to get more.Never True4Purpose - LifeAnswerDate RecordedPurpose and direction in wupsEhgsrvh44/11/2021 CommentsNoSex and Gender InformationValueDate RecordedSex Assigned at BirthNot on fileLegal BenKcaspz48/06/2015 11:29 AM EDTGender IdentityNot on fileSexual OrientationNot on file Last Filed Vital Signs Vital SignReadingTime TakenCommentsBlood Lzuzgbov766/6208/17/2025 2:25 PM EST Tgrgr044308/17/2025 2:36 PM RSEMfuxiobjgcq50.6 ??C (97.9 ??F)08/17/2025 2:25 PM ESTRespiratory Bvim344610/17/2024 2:25 PM ESTOxygen Vlhxcuregs18%08/17/2025 2:36 PM ESTInhaled Oxygen Concentration--Jstqwa30.2 kg (137 lb 2 oz)08/17/2025 10:08 AM ACBOwndzs529.3 cm (5' 9 )08/17/2025 10:08 AM ESTBody Mass Index20.25 08/17/2025 10:08 AM EST Plan of Treatment Health MaintenanceDue DateLast DoneCommentsDepression Nxjfvoxuw14/23/1969 DTaP,Tdap and Td Vaccines (1 - Tdap)1976Fall Risk Ceisintjq43/23/2022 COVID-19 Vaccine ( - 2024- season)/10/2020, 01/05/2021, 12/06/2020Influenza Gpbbrug88/05/2021, 07/14/2020, 08/11/2019, Additional history existsAdult BMI Ttwuezdpq55Tobacco Briycilxv52RSV ( or age 60+ yrs) (1 - 1-dose 75+ series)2032Zoster (Shingles) WeinnnjIpwbkfhqs80/02/2020, 07/07/2020Pap SexcyEsdaewpjaecv05/24/2025, 08/04/20180371WcgjdblbogeGddqgtjncsql46/29/2025, 07/11/2025, 07/23/2018, Additional history exists Medical Devices Not on file Procedures Procedure NamePriorityDate/TimeAssociated DiagnosisCommentsPR AN ELECTIVE ENDOTRACHEAL SCVGPBYufqzbo41/05/2025 11:29 AM EST [facility] UNLISTED PROC08/17/2025 11:21 AM EST Chronic sialoadenitis Hoarseness Vasomotor rhinitis Submandibular gland swelling Case Notes SHU 90 (EPIC 140, GAVE 150) CT NECK SOFT TISSUE W OZQATmaxasf20/28/2025 7:38 AM EDT Chronic sialoadenitis VA COLONOSCOPY FLX DX W/COLLJ SPEC WHEN PFRMD07/11/2025 9:29 AM EDT left lower quadrant pain EOFDADUCVMG11/29/2025 9:20 AM EDT PROVATION AUTKXRLQPWIDfslmoe26/29/2025 7:22 AM EDT from Last 3 Months Results * VA AN ELECTIVE ENDOTRACHEAL AIRWAY (08/17/2025 11:29 AM EST) Frederick Avendaño SRNA - 08/17/2025 11:29 AM EST CARYN Dennison 08/17/2025 11:38 AM Airway Patient location during procedure: OR Urgency: Elective Date/Time: 08/17/2025 11:29 AM Airway not difficult IV In Situ: Peripheral General Information and Staff Service Provider: Boogie Walker MD CLOTH WASHER OPERATOR: Shannon Ruby APRN-CLOTH WASHER OPERATOR Student: CARYN Dennison Placed by: ??CARYN Dennison Patient Identified, IV Checked, Risks and Benefits Discussed, Surgical Consent, Monitors and Equipment Checked, Pre-op Evaluation and Timeout Performed Fire Risk Assessment Score: 3 Consent for Emergent Airway (if performed for an anesthetic, see related documentation for consents) Risks and benefits: risks, benefits and alternatives were discussed Indications and Patient Condition Sedation level: Deep Preoxygenated: yesPatient position: Supine and Sniffing MILS maintained throughout Mask difficulty assessment: Vent By Mask Indications for airway management: Anesthesia Complications: No Complicating Factors: No Final Airway Details Final airway type: ETT Endotracheal airway: Cuffed Techniques used for successful ETT Placement: Video Laryngoscopy and With Stylet Cormack-Lehane Classification: Grade I Endotracheal tube insertion site: Oral Bite Block Placed Post Intubation Trauma? No Visibility: ??Cords Clear Blade: X3 Blade size: #3 Placement verified by: chest auscultation, capnography and symmetrical chest wall movement ETT size: 7.5 mm Cuff volume (mL): 10 Measured from: Lips Secured at (cm): 22 Number of other approaches attempted: 0 Ventilation between attempts: None Number of attempts at approach: 1 Authorizing ProviderResult TypeResult StatusDavid Neyda Walker MDANESTHESIA ORDERABLESFinal Result * CT neck soft tissue with contrast (08/09/2025 7:38 AM EDT)Anatomical Region LateralityModalityNeuro, Neck, Neuro CoveraN/AComputed TomographySpecimen (Source)Anatomical Location / LateralityCollection Method / VolumeCollection TimeReceived Time08/09/2025 1:03 PM EDT Narrative 08/09/2025 1:[address] NECK SOFT TISSUE W CONT: 08/09/2025 PROVIDED HISTORY: * ??69 years old Female * ??Chronic sialoadenitis COMPARISON: 08/12/2023 TECHNIQUE: 1. ??CT of the neck performed following the uneventful administration of intravenous contrast. Multiplanar reformats were created and reviewed. 2. ??All CT scans at this facility use dose modulation, iterative reconstruction, and/or weight based dosing when appropriate to reduce radiation dose to as low as reasonably achievable. FINDINGS: No acute intracranial abnormality. Partially visualized absent [place] lenses. Paranasal sinuses, temporal bone air structures [...] in the visualized skull base. IMPRESSION: 1. ??Persistent increased enhancement of the submandibular glands, for which sialoadenitis may be considered. No evidence of sialolithiasis or abnormal intra-/extrahepatic glandular duct dilation. 2. ??No evidence of cervical adenopathy. 3. ??Otherwise, no new acute abnormality of the neck, within limitations of dense artifact from dental hardware. Finalized by Ayleen Smiley MD on 08/09/2025 1:12 PM Procedure Note Ayleen Smiley MD - 08/09/2025 CT NECK SOFT TISSUE W CONT: 08/09/2025 [...] No acute intracranial abnormality. Partially visualized absent nativelenses. Paranasal sinuses, temporal bone air structures are relativelywell aerated. Degenerative changes of the temporomandibular joints.Artifact from extensive dental hardware limits evaluation as a portions ofthe anterior face and oral cavity. Similar hyperattenuating appearance of the submandibular glands, withoutevidence of definite sialolith or periglandular inflammatory changes.Parotid glands within normal limits for technique. No focal mass along the aerodigestive tract with the limitations of dense artifact. Laryngeal structures are relatively preserved for degree oflarge opposition. No suspicious thyroid nodules. No significant cervical adenopathy. Major cervical vascular enhancement preserved with scatteredatherosclerotic changes primarily of the left carotid bifurcation. Upper lung zone predominant emphysematous changes and right greater thanleft biapical parenchymal scarring. Multilevel degenerative changes of the cervical spine. No suspiciousosseus lesions within limitations of motion artifact. No acute abnormality in the visualized skull base. IMPRESSION: 1. Persistent increased enhancement of the submandibular glands, forwhich sialoadenitis may be considered. No evidence of sialolithiasis orabnormal intra- /extrahepatic glandular duct dilation. 2. No evidence of cervical adenopathy. 3. Otherwise, no new acute abnormality of the neck, within limitations ofdense artifact from dental hardware. Finalized by Ayleen Smiley MD on 08/09/2025 1:12 PM Authorizing ProviderResult TypeResult StatusStmontse Palma MDIMG CT ORDERABLES Final Result * Colonoscopy (07/11/2025 9:20 AM EDT)Specimen (Source)Anatomical Location / LateralityCollection Method / VolumeCollection TimeReceived Time07/11/2025 9:20 AM EDT Narrative PM CARDIOVASCULAR - 07/11/2025 9:45 AM EDT [facility] Patient Name: Karen Zaidi ?? Procedure Date No Time: 07/11/2025 ?? CSN : [id number] Date of : 1955 Admit Type: Outpatient Age: 69 Room: [facility] OR Gender: Female Note Status: Finalized Attending MD: Frank Christine DO, Procedure: ? Colonoscopy Indications: ? Abdominal pain in the left lower quadrant Providers: ? Frank Christine DO Referring MD: ?Frank Christine DO Medicines: ? Propofol per Anesthesia Complications: ? No immediate complications. Procedure: ? After I obtained informed consent, the scope was ? passed under direct vision. Throughout the procedure, ? the patient's blood pressure, pulse, and oxygen ? saturations were monitored continuously. The OLYMPUS ? PCF-[id number] # [id number] PEDIATRIC COLONOSCOPE was ? introduced through the anus and advanced to the cecum, ? identified by appendiceal orifice and ileocecal valve. ? The colonoscopy was performed with difficulty due to ? restricted mobility of the colon, significant looping ? and the patient's discomfort during the procedure. ? Successful completion of the procedure was aided by ? increasing the dose of sedation medication and ? applying abdominal pressure. The patient tolerated the ? procedure well. The quality of the bowel preparation ? was adequate to identify polyps greater than 5 mm in ? size. Findings: ? The perianal and digital rectal examinations were normal. ? The colon (entire examined portion) appeared normal. ? The exam was otherwise without abnormality on direct and retroflexion ? views. Estimated Blood Loss: ??Estimated blood loss: none. Impression: ?- The entire examined colon is normal. ? - The examination was otherwise normal on direct and ? retroflexion views. ? - No specimens collected. Recommendation: ?- Discharge patient to home. ? - Patient has a contact number available for ? emergencies. The signs and symptoms of potential ? delayed complications were discussed with the patient. ? Return to normal activities tomorrow. Written ? discharge instructions were provided to the patient. ? - High fiber diet for the rest of the patient's life. ? - Repeat colonoscopy is not recommended due to current ? age (66 years or older) for screening purposes. ? - Return to my office PRN. Procedure Code(s): ? --- Professional --- ? 44798, Colonoscopy, flexible; diagnostic, including ? collection of specimen(s) by brushing or washing, when ? performed (separate procedure) Diagnosis Code(s): ? --- Professional --- ? R10.32, Left lower quadrant pain CPT copyright 2022 [employer]. All rights reserved. The codes documented in this report are preliminary and upon fish icer review may be revised to meet current compliance requirements. DO Frank Ragsdale DO 07/11/2025 9:45:21 AM Number of Addenda: 0 Note Initiated On: 07/11/2025 9:20 AM Procedure Note Frank Christine DO - 07/11/2025 [facility] Patient Name: Karen Zaidi Procedure Date No Time: 07/11/2025 CSN : [id number] Date of : 1955 Admit Type: Outpatient Age: 69 Room: [place] [address] Gender: Female Note Status: Finalized Attending MD: Frank Christine DO, Procedure: Colonoscopy Indications: Abdominal pain in the left lower quadrant Providers: Frank Christine DO Referring MD: Frank Christine DO Medicines: Propofol per Anesthesia Complications: No immediate complications. Procedure: After I obtained informed consent, the scope was passed under direct vision. Throughout theprocedure, the patient's blood pressure, pulse, and oxygen saturations were monitored continuously. TheHitpostDOCTORS MEDICAL CENTER OF MODESTOF-[id number] # [id number] PEDIATRIC COLONOSCOPE was introduced through the anus and advanced to thececum, identified by appendiceal orifice and ileocecalvalve. The colonoscopy was performed with difficulty dueto restricted mobility of the colon, significantlooping and the patient's discomfort during the procedure. Successful completion of the procedure was aided by increasing the dose of sedation medication and applying abdominal pressure. The patient toleratedthe procedure well. The quality of the bowelpreparation was adequate to identify polyps greater than 5 mmin size. Findings: The perianal and digital rectal examinations were normal. The colon (entire examined portion) appeared normal. The exam was otherwise without abnormality on direct and retroflexion views. Estimated Blood Loss: Estimated blood loss: none. Impression: - The entire examined colon is normal. - The examination was otherwise normal on directand retroflexion views. - No specimens collected. Recommendation: - Discharge patient to home. - Patient has a contact number available for emergencies. The signs and symptoms of potential delayed complications were discussed with thepatient. Return to normal activities tomorrow. Written discharge instructions were provided to thepatient. - High fiber diet for the rest of the patient'slife. - Repeat colonoscopy is not recommended due tocurrent age (66 years or older) for screening purposes. - Return to my office PRN. Procedure Code(s): --- Professional --- 70165, Colonoscopy, flexible; diagnostic, including collection of specimen(s) by brushing or washing,when performed (separate procedure) Diagnosis Code(s): --- Professional --- R10.32, Left lower quadrant pain CPT copyright 2023 [employer]. All rights reserved. The codes documented in this report are preliminary and upon fish icer reviewmay be revised to meet current compliance requirements. DO Frank Ragsdale DO 07/11/2025 9:45:21 AM Number of Addenda: 0 Note Initiated On: 07/11/2025 9:20 AM Authorizing ProviderResult TypeResult StatusFrank Chrsitine DOGI PROCEDURE ORDERABLESFinal ResultPerforming OrganizationAddressCity/State/ZIP CodePhone Number PM CARDIOVASCULAR * Colonoscopy Report (07/11/2025 7:22 AM EDT)Specimen (Source)Anatomical Location / LateralityCollection Method / VolumeCollection TimeReceived Time Narrative SYSTEMGENERATED, DOCUMENTATION - 07/11/2025 7:22 AM EDT This order has been auto-finalized for image and report archival in PACs. *For full report details, please reach out to your physician. ??This image is visible to you in MyChart.* Authorizing ProviderResult TypeResult StatusFrank Christine DOIMG OR IMG ORDERABLESFinal Result from Last 3 Months Insurance Care Teams Team MemberRelationshipSpecialtyStart DateEnd Date Alejandra Osborne MD [address] [place] [address] [facility] - [facility]06/18/18
--- OUTSIDE RECORDS SUMMARY | 2025-10-05 09:24 | XMS_ITS | Clinical Summary ---
Author Organization [facility] Address [address], [address] [place] [address] Care Team Providers Care Transactional Attorney Name Role Phone Unavailable Primary Care Provider Unavailabl e Social History Tobacco UseTypesPacks/DayYears UsedDateSmoking Tobacco: Never Assessed CommentsUnknownSex and Gender InformationValueDate RecordedSex Assigned at Not on fileLegal DkzDmnapf00/16/2024 10:10 AM EDTGender IdentityNot on file Sexual OrientationNot on file Plan of Treatment Health MaintenanceDue DateLast DoneCommentsDepression Gheczj9709/04/1969Hepatitis C cibalm2309/04/1975DTaP/Tdap/Td vaccine (1 - Tdap)1976Breast cancer screen 09/04/19970630Ejqvnl35/23/3643Mvyjgnthjbh73/23/2002Colorectal Cancer Screen 2002FIT/FOBT: Average risk2002Fecal-DNA (Cologuard): Average risk 2002Sigmoidoscopy/CT ihzbnjzkxnco67/23/2002Pneumococcal 50+ years Vaccine (2 of 2 - PCV)/Annual Wellness Visit (Medicare)06/15/2024Flu vaccine (#1)510/05/2021, 07/14/2020, 08/11/2019, Additional history existsCOVID-19 Vaccine ( - season)2025Respiratory Syncytial Virus (RSV) or age 60 yrs+ (1 - 1-dose 75+ series)2Shingles vaccine Gbabkueva70/02/2020, 07/07/2020DEXA (modify frequency per FRAX score)Completed 02/02/2025Hepatitis A vaccineAged OutNo longer eligible based on patient's age to complete this topicHepatitis B vaccineAged OutNo longer eligible based on patient's age to complete this topicHib vaccineAged OutNo longer eligible based on patient's age to complete this topicMeningococcal (ACWY) vaccineAged OutNo longer eligible based on patient's age to complete this topicMeningococcal B vaccineAged OutNo longer eligible based on patient's age to complete this topic Polio vaccineAged OutNo longer eligible based on patient's age to complete this topic Insurance
--- OUTSIDE RECORDS SUMMARY | 2025-10-05 09:24 | XMS_ITS | Patient Health Record ---
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 Primary Care Provider Unavail able Ivan Trejo Unavailable [phone] xxJodyIsael hydeielle Unavailable [phone] Allergies Allergen (clinical drug ingredient) Drug/Non Drug Allergy documented on EMR Reaction Allergy Type Onset Date Status BEES (uncoded)UnknownAllergyActivedoxycyclinedoxycyclineUnknownDrug Allergy ActiveclindamycinclindamycinUnknownDrug AllergyActive Results Component Value Reference Range Notes [facility] [id number] Reviewed date:12/30/2024 01:21:51 PM Interpretation: Performing Lab: Notes/Report: [facility] [id number] Reviewed date:11/02/2024 03:36:18 PM Interpretation: Performing Lab: Notes/Report: Reason For Referral No Information Social History Tobacco Use: Social History Observation Description Date Details (start date - stop date) Never Smoker NA - NA AUDIT-C (Standard) Question Answer Notes Did you have a drink containing alcohol in the p ast year? Yes How often did you have six or more drinks on one occasion in the past year?Never (0 point)How many drinks did you have on a typical day when you were drinking in the past year?1 or 2 drinks (0 point)How often did you have a drink containing alcohol in the past year?Monthly or less (1 point)[id number] Tobacco Control (Standard) Question Answer Notes Tobacco use: Nonsmoker Vital Signs Height 5'7 in 11/29/2024 [id number] Encounters Encounter Location Date Provider Diagnosis [facility] [address] [facility] [place] [address] [place] [address] 11/01/2024 Keri Zavala Closed fracture of superior ramus of right pubis, initial encounter S32.511A ; Closed fracture of right inferior pubic ramus, initial encounter S32.591A and Closed fracture of superior ramus of left pubis, initial encounter S32.512A [facility] [address] [facility] [place] [address] [place] [address] 11/29/2024 Keri Zavala Closed fracture of superior ramus of left pubis, initial encounter S32.512A ; Closed fracture of superior ramus of right pubis, initial encounter S32.511A and Closed fracture of right inferior pubic ramus, initial encounter S32.591A Assessments Encounter Date Diagnosis (ICD Code) Assessment Notes Treatment Notes Treatment Clinical Notes Section Notes 11/01/2024 Closed fracture of s uperior ramus of right pubis, initial encounter (ICD-10 - S32.511A) 11/01/2024losed fracture of right inferior pubic ramus, initial encounter (ICD- 10 - S32.591A)11/29/2024losed fracture of superior ramus of left pubis, initial encounter (ICD-10 - S32.512A)11/29/2024losed fracture of superior ramus of right pubis, initial encounter (ICD-10 - S32.511A)11/01/2024losed fracture of superior ramus of left pubis, initial encounter (ICD-10 - S32.512A)11/29/2024 Closed fracture of right inferior pubic ramus, initial encounter (ICD-10 - S32.591A)11/01/2024OtherPatient's pain is much improved today 2 months [...] weeks to repeat x-rays and reassess her progress.11/29/2024OtherPatient is doing well after her fall on 09/02. She is now almost 12 weeks out from her multiple pelvic fractures. Clinically she is doing well and has healed fractures on x-ray. We will see her back on an as- needed basis. Plan Of Treatment No Information Insurance Providers Payer Name Payer Address Payer Phone Subscriber Number Group Number Insured Name Patient Relationship to Insured Coverage Start Date Coverage End Date [place] [address] [id number] Domi LUTZ - [facility] the [facility] SUPPLEMENTPO [address] [place] [id number], SUSANSelf - patient is the insured
--- OUTSIDE RECORDS SUMMARY | 2025-10-05 09:24 | XMS_ITS | Clinical Summary ---
Author Organization [facility] Address [address] [place] [address] Care Team Providers Care Psychodramatist Name Role Phone Alejandra Osborne MD Unavailable [phone] Alejandra Osborne MD Primary Care Provider [phone] Allergies Active AllergyReactionsCriticalityNoted DateCommentsClindamycinRash,Shortness of LkaryoDpfz06/18/2018CodeineGI MdfrxHli46/18/6909PxlmetpahqeJjuyHxzbck14/07/2024 Venom-Honey AbtXdlaOpovju85/23/2020 Medications MedicationSigDispense QuantityRefillsLast FilledStart DateEnd DateStatus atorvastatin (LIPITOR) 20 mg tablet Indications:atherosclerotic cardiovascular diseaseTake 10 mg by mouth every evening.10/24/2023ctive fluticasone (FLONASE) 50 mcg/actuation nasal spray Use 1 [place] in the nose as needed for cold/allergy symptoms. Take in allergy seasonActive montelukast (SINGULAIR) 10 mg tablet Take 10 mg by mouth once daily.06/18/2018Active ibuprofen (MOTRIN) 200 mg tablet Take 400 mg by mouth two times a day. 400-800 mg 3-4 PRNActive calcium carbonate/vitamin D3 (CALTRATE 600 + D ORAL) Take 600 mg by mouth two times a day.Active estradiol (ESTRACE) 0.01 % (0.1 mg/gram) vaginal cream Indications:Vaginal drynessUse 0.5 g vaginally daily at bedtime. Apply finger tipped size to vulva, urethra nightly 42.5 g ctive cyclobenzaprine (FLEXERIL) 5 mg tablet Indications:High-tone pelvic floor dysfunction1 tablet at bedtime as needed. Use vaginally 90 tablet ctive cholecalciferol, vitamin D3, (VITAMIN D3 ORAL) Take by mouth.Active VITAMIN B COMPLEX ORAL Take by mouth.Active dasatinib 100 mg tablet 07/22/2025tive famotidine (PEPCID) 20 mg tablet Take 20 mg by mouth.ActiveHospital, Clinic, or Other Facility Administered MedicationOrdered DoseRouteFrequencyStart DateEnd DateStatus onabotulinum toxin type A 100 Units injection (BOTOX) Indications:High-tone pelvic floor refxotshogl045 UnitsIMEVERY 3 MONTHS 05/28/2024ctive onabotulinum toxin type A 100 Units injection (BOTOX) Indications:High-tone pelvic floor kfhyrzfmzvt861 UnitsIMEVERY 3 MONTHS 07/06/2024ctive onabotulinum toxin type A 100 Units injection (BOTOX) Indications:High-tone pelvic floor eaigcgbovhr955 UnitsIMEVERY 3 MONTHS 08/18/2024ctive Active Problems ProblemNoted DateDiagnosed DateSOB (shortness of breath)07/04/2025Family history of cardiovascular xhjxvcm6107/04/2025oronary artery disease involving mary's igloo coronary artery of mary's igloo heart without angina /22/2025Malnutrition of moderate jfwgfq5503/03/2024S/P renal efqghscfcffepd65/21/2024Sinus bradycardia on ECG02/20/2024 Assessment & Plan (02/20/2024 7:16 AM EDT): HR on EKG from today - 54 HR on exam today 60 Denies cardiac symptoms [place] zrsldhby28/09/2024 Assessment & Plan (02/19/2024 1:50 PM EDT): Sp styloidectomy Other yzbxnafmnxwaov63/09/2024 Assessment & Plan (02/19/2024 1:50 PM EDT): Managed on Atorvastatin Ovarian iaqczna1902/19/2024 Assessment & Plan (02/19/2024 1:51 PM EDT): 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 Encounters DateTypeDepartmentCare KpcoGvfcoaukqmt80/03/2025 11:20 AM ESTOffice Visit Rheumatology [address] [place] [address] Gi Siddiqi MD Osteoporosis, post-menopausal (Primary Dx); Age-related osteoporosis without current pathological fracture; Other osteoporosis without current pathological fracture; History of fracture of pelvis; Family history of cardiovascular disease; Family history of osteoporosis in mother; Early menopause occurring in patient age younger than 45 years; Hyperhomocystinemia; CML (chronic myelocytic leukemia) (HCC); Encounter to discuss test results; Encounter for medication review and counseling; Counseling on health promotion and disease clvrluuanw35/02/2025[employer] [address] [place] [address] Robin Bryant MD 09/13/20250274Adnbxm99/20/2025[employer] [address] [place] [address] Robin Bryant MD 07/28/2025 Patient [facility] [place] [address] Aide Glover RPh At your next appointment, choose [facility].07/21/2025 3:30 PM EDTOffice Visit Cardiology [address] [place] [address] Family history of cardiovascular disease; SOB (shortness of breath); Coronary artery disease involving mary's igloo coronary artery of mary's igloo heart without angina hneyelek47/25/2025 1:00 PM EDTOffice Visit Gynecology [address] [place] [address] Augustina Vargas MD Trigger point of abdomen (Primary Dx); High-tone pelvic floor dysfunction; Myalgia, other sitefrom Last 3 Months Family History Medical HistoryRelationCommentsHeart AttackBrotherHypertensionBrotherStroke BrotherAneurysmFatherHypertensionFatherAneurysmMotherHypertensionMotherpulmonary embolismMothervaricose veinsMotherAnesthesia ProblemsNo Family HistoryRelation StatusCommentsBrotherDeceasedFatherDeceasedMotherDeceased Social History Tobacco UseTypesPacks/DayYears UsedDateSmoking Tobacco: JufaqkElnrnznfvx6065257 - 2010Passive Smoke Exposure: NeverSmokeless Tobacco: Never Tobacco Cessation:Counseling Given: Not Answered Alcohol UseStandard Drinks/WeekCommentsNot Currently0 (1 standard drink = 0.6 oz pure alcohol)PHQ-2AnswerDate RecordedPHQ-2 rggwz689rea Deprivation IndexAnswerDate RecordedNational Score (1-100), lower number is lower risk64 12/18/2023State Score (1-10), lower number is lower oytz841ata from: https://www.neighborhoodatlas.medicine.[facility].edu/. Last address used for [address] [place] [address]CommentsNoSex and Gender Information ValueDate RecordedSex Assigned at BirthNot on fileLegal XppFfagam64/10/2023 4:14 PM ESTGender IdentityNot on fileSexual OrientationNot on file Last Filed Vital Signs Vital SignReadingTime TakenCommentsBlood Opgbdlrt373/6812 11:22 AM EST Pxxew373609/14/2025 11:22 AM RLAKzqhdummska33.9 ??C (98.4 ??F)03/05/2024 7:20 AM EDTRespiratory Eczc592403/05/2024 7:20 AM EDTOxygen Ffadjmyggf391%07/04/2025 10:23 AM EDTInhaled Oxygen Concentration--Wjxnxj44.6 kg (142 lb 6.7 oz)09/14/2025 11:22 AM DJVTovepl709.2 cm (5' 7 )07/07/2025 1:02 PM EDTBody Mass Index22.31 07/07/2025 1:02 PM EDT Plan of Treatment DateTypeDepartmentCare Team (Latest Contact Info)Wtzcmwabjhi89/17/2026 10:30 AM ESTOffice Visit Gynecology [address] [place], [place] [phone] Augustina Vargas MD [address] [place], [place] [phone] botox tbbyjoqsj22/23/2026 2:00 PM EDTOffice Visit CARD INTERVENTION [facility] [address] [place], [place] [phone] Sveta Molina MD [address] [place], [place] [phone] 6 month07/12/2026 11:00 AM EDTOffice Visit Rheumatology [address] [place], [place] [phone] Gi Siddiqi MD [address] [place], [place] [phone] Return for July 2026 for OP.Health MaintenanceDue DateLast DoneComments Cervical Cancer Juobjnehv37/23/1968Annual PCP Team Chronic Disease Visit 1975Anxiety Ssmrzbsvx96/23/1975Depression Xiuaiscsx20/23/1975Hepatitis C Dfgslrbpg62/23/1975LDL Gzmvvcqshoa68/23/1975DTaP,Tdap,Td Vaccine (1 - Tdap) 1976Mammogram Ibxhywnla01/23/1997CT Uygisxxbnalx08/23/2002Cologuard (FIT-DNA)2002Fecal Occult Blood2002Lipid Hqtfuykyb20/23/2002 Ludyhhpskxcdh85/23/2002RSV Vaccine (1 - Risk 50-74 years 1-dose series) 2007Pneumococcal Vaccine: 50+ (2 of 2 - PCV)Medicare Annual Wellness Visit05/13/2023dvance Directive Qspzpzhcda43/01/2025ovid-19 Vaccine ( season), 01/05/2021, 12/06/2020 Influenza Vaccine (#1)/05/2021, 07/14/2020, 08/11/2019, Additional history existsLung Cancer Mjsqyfwrj87, 04/25/2025, 05/10/2024, Additional history almvjnJxpqhiqnici54/29/202609/olorectal Cancer Zacembrfd53/29/2026one Density Fajhnruwg40Diabetes Screening /, 03/03/2024, 03/02/2024, Additional history existsShingrix KqwrazoUhkzvwosd81/02/2020, 07/07/2020 Goals GoalPatient Goal TypeAssociated ProblemsRecent ProgressPatient-Stated?Author Blood Pressure < 130/80 Blood Zuckwflu722/68(09/14/2025 11:22 AM EST)Sveta Hitchcock MD Medical Devices ImplantedTypeAreaManufacturerDevice IdentifierShelf Expiration DateModel / Serial / LotStent Inlay 4.7fr 2 Pigtail Curve Taper Blue Hydrophilic 14cm Ureteral - [id number] Implanted:Qty: 1 on 03/02/2024 by Chip Chowdary MD at [facility] Urologic StentsLeft: UreterBECTON FRAFRBYYP15/28/[id number] / / [id number] Procedures Procedure NamePriorityDate/TimeAssociated DiagnosisCommentsLVEF STRESS ECHO UFMHIDBCQBzzejvy24/09/2025 3:19 PM EDT STRESS ECHO DVTNIQRFFXtigekv64/09/2025 3:19 PM EDT Family history of cardiovascular disease SOB (shortness of breath) DXA-AXIAL AAJPUHNJVvyvbmt72/23/2025 3:32 PM EDT Osteoporosis, post-menopausal Other osteoporosis without current pathological fracture Age-related osteoporosis without current pathological fracture Early menopause occurring in patient age younger than 45 years History of fracture of pelvis Family history of osteoporosis in mother BASIC METABOLIC HHTEBAkxujcf67/23/2024 1:37 AM EDT from Last 3 Months or Most Recently Relevant to Health Maintenance Results * LVEF STRESS ECHO TREADMILL (07/21/2025 3:19 PM EDT)ComponentValueRef RangeTest MethodAnalysis TimePerformed AtPathologist SignatureLV Ejection Qkvmtyyu07% [facility] AND VASCULAR INSTITUTEComment: (2D biplane) EF > 54 An LV Ejection Fraction of > 50% is normal Specimen (Source)Anatomical Location / LateralityCollection Method / Volume Collection TimeReceived Time07/21/2025 3:19 PM EDT Narrative Authorizing ProviderResult TypeResult StatusNegjessica Molina MDLVEF RESULTSFinal ResultPerforming OrganizationAddressCity/State/ZIP CodePhone Number [facility] [address] [place] [address] * STRESS ECHO TREADMILL (07/21/2025 3:19 PM EDT)Specimen (Source)Anatomical Location / LateralityCollection Method / VolumeCollection TimeReceived Time 07/21/2025 3:19 PM EDT Narrative [facility] - 07/22/2025 11:41 AM EDT Stress Sealer Dry Cell Report: Stress Echo [facility] Office Date of service: 07/21/2025 3:19:42 PM DYNAMICS AX CONSULTANT Supervising physician: Adriana Petty MD PATIENT: Name: MRS. KAREN ZAIDI Age: 69 years Gender: F The supervising physician was in the department and immediately available. Final Echocardiography Report: Stress Echo [facility] Office Date of service: 07/21/2025 3:19:42 PM DYNAMICS AX CONSULTANT Ordering physician: SVETA MOLINA Exam indication: Shortness of Breath Technologist: Lou Arevalo Interpreting physician: Adriana Petty MD PATIENT: Name: MRS. KAREN ZAIDI : 1955 Age: 69 years Gender: F Primary rhythm: sinus. Height: 170.20 cm BSA: 1.73 m?? Weight: 63.60 kg ??BMI: 22.0 kg/m?? Heart rate ? 90 bpm Blood pressure 124/70 mmHg Color Doppler was utilized to interrogate the cardiac valves assessed and spectral Doppler was utilized to determine the flow velocities and pressure gradients reported in this exam. MEASUREMENTS: ? Value ?Indexed ?Normal Max aortic dimension 3.8 cm Ao < 3.8 Left atrial volume 34 ml (4ch A-L) 20 ml/m Rashaun <= 34 LV ID (diastole) ? 4.7 cm (2D) ?2.73 cm/m?? LV ID (systole) ?2.7 cm (2D) ?1.55 cm/m?? IVS, leaflet tips ?0.7 cm (2D) Posterior wall thickness 0.8 cm (2D) Left ventricular mass ?112 g (2D) ? 65 g/m?? LV stroke volume ? 39 ml (2D biplane) LV end diastolic volume 70 ml (2D biplane) 40.5 ml/m 29<=EDVi<62 LV end systolic volume ?? 32 ml (2D biplane) 18.2 ml/m?? Ejection Fraction 55 % (2D biplane) EF [...] normal in size (RA area = 17.3 cm??). MITRAL VALVE There is trace mitral valve [...] % MPHR) Peak BP 174 mmHg/78 mmHg. ?Rest ? Stress TR velocity 275.0 cm/s 305.0 cm/s CONCLUSIONS: - Exam indication: Shortness of Breath - PLAX images not obtained with stress. - Within the above limitations exercise stress echo was negative for ischemia at 118 % of MPHR (8.1 METS). - The left ventricle is normal in size. Left ventricular systolic function is normal. EF = 55 ?? 5% (2D biplane) Definity contrast used for [...] comparison. Final Stress ECG Report: Stress Echo [facility] Office Date of service: 07/21/2025 3:19:42 PM DYNAMICS AX CONSULTANT Ordering physician: SVETA MOLINA technical training specialist: Kira aCrty Quahogger: Morenita Ponce Interpreting physician: Ardiana Petty MD Patient name: MRS. KAREN ZAIDI Age: 69 years Gender: F Height: 170.20 cm BSA: 1.73 m?? Weight: 63.60 kg ??BMI: 22.0 kg/m?? Indication: Shortness of breath and Encounter for screening for cardiovascular disorders Stress ECG Conclusion: Conclusion: Normal Stress ECG Summary: The patient's resting heart rate was 90 bpm and blood pressure was 124/70 mmHg. The patient exercised according to the Kris protocol. The estimated end-exercise MET level achieved using the FRIEND equation was 8.1, which is in the top 10th percentile for age and sex. The estimated end-exercise MET level achieved using the previous ACSM equation was 9.9. The test was terminated due to leg fatigue and shortness of breath and the total exercise time was 9 minutes and 0 seconds. No symptoms provoked during stress. The maximum heart rate was 179 bpm, which is 118% of the predicted heart rate for age. This is an adequate heart rate response. Peak blood pressure was 174/78 mmHg. The double product achieved was [address]. Medications: ? Last Used ATORVASTATIN SINGULAIR Resting ECG: Normal Sinus Rhythm Symptoms at rest: No symptoms Exercise Protocol: Kris Stress Exercise Table: +-----+ +--------+ +---+---+---+----+---+----+ Stage Speed (MPH) Grade(%) Time (min) HR SYS NASIM RPE SOB METS +-----+ +--------+ +---+---+---+----+---+----+ 1 ? 1.7 ? 10.0 ? 3.0 ? 153 148 68 11.0 3.0 4.2 +-----+ +--------+ +---+---+---+----+---+----+ 2 ? 2.5 ? 12.0 ? 6.0 ? 164 16 80 12.0 3.0 6.1 +-----+ +--------+ +---+---+---+----+---+----+ +-----+ +---------+ +---+---+---+----+---+----+ ? Speed (MPH) Grade (%) Time (min) HR SYS NASIM RPE SOB METS +-----+ +---------+ +---+---+---+----+---+----+ Final 3.3 ? 14.0 ? 9.00 ? 179 174 78 20.0 7.0 8.1 +-----+ +---------+ +---+---+---+----+---+----+ Recovery Table: +------+ +---+---+---+ Stage Time (min) HR SYS NASIM +------+ +---+---+---+ 1 ? 1.0 ? 139 ? +------+ +---+---+---+ 2 ? 2.0 ? 126 ? +------+ +---+---+---+ 3 ? 3.0 ? 112 ? +------+ +---+---+---+ 4 ? 4.0 ? 107 128 60 +------+ +---+---+---+ 5 ? 5.0 ? 104 ? +------+ +---+---+---+ Stress Observations: Resting HR: 90 bpm Peak HR: 179 bpm (118% MPHR) Resting BP: 124 / 70 mmHg Peak BP: 174 / 78 mmHg Total exercise time: 9 minutes 0 seconds METS achieved: 8.1 Chronotropic response index (CRI): 1.43 Heart rate recovery (HRR): 40 bpm Rate Pressure Product (RPP): 92185 Marks Treadmill Score: 0.5 Stress Exercise Observations: Reason for test termination: leg fatigue and shortness of breath Symptoms during test: No symptoms provoked during stress Heart rate response: Adequate heart rate response, Normal CRI (>0.8 Not on B Amber) and Normal HRR (>12 or >[address]/EC) Blood pressure response: Normal BP response ST segment and T wave changes: Borderline ST depression (<1 mm or any upslope) after stress Marks Treadmill Score: Abnormal Marks Treadmill Score (<5 but >= -10) Arrhythmias: PACs and Unifocal PVCs Metabolic Exercise Data Variable: Observed value [Expected Range] HGI: 1.8 [>1.06 bpm/mmHg] IMPORTANT NOTE REGARDING ESTIMATED MET VALUES: Effective 07/30/2020, the reference equation for determining estimated MET values for [facility] stress tests changed. Comparison of test results before and after that date may show a change in estimated MET values for peak/max exercise despite a test duration that is similar in length. The validity of the new FRIEND equation for exercise METS is endorsed by the [place] Heart Association. Bettie P, Cee LA, Zarina R, Cristo J, Awilda J. New Generalized Equation for Predicting Maximal Oxygen Uptake (from the Fitness Registry and the Importance of Exercise National Database). The [place] Journal of Cardiology. 2017;120(4):688-692). Final See Link below for Image Authorizing ProviderResult TypeResult StatusNegar Ligia MDSTRESS ECHOFinal ResultPerforming OrganizationAddressCity/State/ZIP CodePhone Number [facility] [address] [phone] * DXA-AXIAL SKELETON (02/02/2025 3:32 PM EDT)ComponentValueRef RangeTest Method Analysis TimePerformed AtPathologist SignatureLOWEST T-SCORE-3.2MEDINA RADIOLOGYAnatomical RegionLateralityModalityOtherSpecimen (Source)Anatomical Location / LateralityCollection Method / VolumeCollection TimeReceived Time 02/02/2025 3:32 PM EDT Impressions 02/03/2025 8:11 AM EDT IMPRESSION: THE LOWEST T-SCORE IS -3.2 ?? IN THE RIGHT HIP 1) DIAGNOSIS (based on BMD alone): ??OSTEOPOROSIS Caution: Medical conditions other than osteoporosis may cause low bone density, such as osteomalacia or renal osteodystrophy. ?? Clinical correlation is necessary. 2) FRACTURE RISK (Based on TBS adjusted FRAX): ?10-year absolute fracture risk: ? - major osteoporotic fracture =27.7 % % ? - hip fracture = 9.2 % % ?- A diagnosis of Osteoporosis, ??a 10 year probability of hip fracture greater ?than or equal to 3% or a 10 year probability of any major osteoporosis-related ?fracture greater than or equal to 20% should be considered for ?treatment. ?- DXA scanner generated FRAX calculations may slightly differ from ?online FRAX calculations due to differences in software versions. - All recommendations and calculations are to be considered as ?? guidelines and should not replace sound clinical judgement - Caution: Fracture risk may be increased independent of BMD in ??patients with corticosteroid use, age greater than 65 years, or a ??history of prior fragility fracture. RECOMMENDATIONS: Follow-up in 2 years or as clinically indicated. ??Patients that are taking corticosteroids, are transplant recipients or have hyperparathyroidism should have annual follow-up. ??Follow-up scans should always be done on the same machine for accurate comparison. FOR MORE INFORMATION ABOUT DIAGNOSIS AND TREATMENT: [facility] Center for Osteoporosis and Metabolic Bone Disease:? www.ccf.org/arthritis/osteo National Osteoporosis Foundation:? www.nof.org International Society of Clinical Densitometry www.iscd.org Supervisor Plastics: PSCNeyda ?? Transcribe Date/Time: Feb 03 2025 ??8:08A Dictated by : ROBBIN SHARIF MD This examination was interpreted and the report reviewed and electronically signed by: ROBBIN SHARIF MD on Feb 03 2025 ??8:09AM ??EST Narrative 02/03/2025 8:11 AM EDT * * *Final Report* * * DATE OF EXAM: Feb 02 2025 ??3:32PM ?? MDB ?? 0804 ??- ??BD DXA - AXIAL SKELETON ??/ PROCEDURE REASON: multiple diagnoses ? * * * * Physician Interpretation * * * * EXAMINATION: DXA BONE DENSITOMETRY BD DXA - AXIAL SKELETON, BD DXA TRABECLR BONE SCORE (TBS) PATIENT DEMOGRAPHICS: ??Age: 69 years, Gender: Female SCANNER INFORMATION: DXA Model: [employer]+[id number] Date Scanned: ??02/02/2025 3:32 PM CLINICAL HISTORY: ??SCREENING ?? Osteoporosis, post-menopausal Other osteoporosis without current pathological [...] (L1, L2, L3, L4): Total BMD: 0.940 ??g/cm2, T-score: -2.0 , Z-score: -0.4 Right Femoral Neck: 0.653 ??g/cm2 , T-score -2.8, Z-score -1.2 Right Total Hip: 0.602 ??g/cm2 , T-score -3.2, Z-score ??-1.9 Left Femoral Neck: 0.624 ??g/cm2 , T-score -3.0, Z-score -1.4 Left Total Hip: ??0.650 ??g/cm2 , T-score -2.8 , Z-score -1.5 No comparison data - the patient has not had a previous bone density in the [facility] or the previous bone density was performed on a different DXA machine (new, updated model or different location) within the [facility]. VERTEBRAL FRACTURE ASSESSMENT Not performed. TRABECULAR BONE ASSESSMENT TBS score: 1.187 Bone micro-architecture: : degraded (< or = 1.230) Procedure Note Provider, [facility] - 02/03/2025 * * *Final Report* * [...] years, Gender: Female SCANNER INFORMATION: DXA Model: [employer]+[id number] Date Scanned: 02/02/2025 3:32 PM CLINICAL HISTORY: [...] had a previous bone density in the [facility] or the previous bone density was performed on a different DXA machine (new, updated model or different location) within the [facility]. VERTEBRAL FRACTURE ASSESSMENT Not performed. TRABECULAR BONE [...] FOR MORE INFORMATION ABOUT DIAGNOSIS AND TREATMENT: [facility] Center for Osteoporosis and Metabolic Bone Disease:? www.ccf.org/arthritis/osteo National Osteoporosis Foundation:? www.nof.org International Society of Clinical Densitometry www.iscd.org Supervisor Plastics: TRINI Transcribe Date/Time: Feb 03 2025 8:08A Dictated by : ROBBIN SHARIF MD This examination was interpreted and the report reviewed and electronically signed by: ROBBIN SHARIF MD on Feb 03 2025 8:09AM EST Authorizing ProviderResult TypeResult StatusFeyromark Siddiqi MDRAD-PAMAFinal Result * (ABNORMAL) BASIC METABOLIC PANEL (03/04/2024 1:37 AM EDT)ComponentValueRef RangeTest MethodAnalysis TimePerformed AtPathologist DpqsndyhdZhkxtph659(H)74 - 99 mg/dL03/04/2024 2:53 AM EDTCOHIOHEALTH O'BLENESS [facility]ITAL LABComment: The [place] Diabetes Association (ADA) provides guidance for cutoff values for fasting glucose andrandom glucose. The ADA defines fasting as no [...] Standards of Medical Care in Diabetes 2016, [place] Diabetes Association. Diabetes Care. 2016.39(Suppl 1). JZQ670 - 21 mg/dL03/04/2024 2:53 AM [facility] Creatinine0.810.58 - 0.96 mg/dL03/04/2024 2:53 AM [facility] IPAWifxel305988 - 144 mmol/L03/04/2024 2:53 AM [facility] LABPotassium3.93.7 - 5.1 mmol/L03/04/2024 2:53 AM [facility] GESXegcewba0884 - 105 mmol/L03/04/2024 2:53 AM [facility] WBYVO975(H)22 - 30 mmol/L03/04/2024 2:53 AM [facility] LABAnion Gap99 - 18 mmol/L03/04/2024 2:53 AM [facility] LABCalcium, Total9.08.5 - 10.2 mg/dL03/04/2024 2:53 AM [facility] LABEstimated Glomerular Filtration Rate80>=60 mL/min/1.73m 03/04/2024 2:53 AM [facility] LABComment:Estimated Glomerular Filtration Rate (eGFR) is calculated using the 2020 CKD-EPI creatinine equation. This equation utilizes serum creatinine, sex, and age as parameters. The creatinine assay has traceable calibration to isotope dilution- mass spectrometry. Refer to KDIGO guidelines for clinical interpretation. In patients with unstable renal function, e.g. those with acute kidney injury, the eGFRmay not accurately reflect actual GFR.Specimen (Source)Anatomical Location / LateralityCollection Method / VolumeCollection TimeReceived TimeBloodBLOOD SPECIMEN / UnknownVenipuncture / Nrvgasm5503/04/2024 1:37 AM EDT03/04/2024 1:47 AM EDT Narrative Authorizing ProviderResult TypeResult StatusCruz Chapman MD LABORATORYFinal ResultPerforming OrganizationAddressCity/State/ZIP CodePhone Number [facility] [address] [facility] [address] [place] [address], [place] from Last 3 Months or Most Recently Relevant to Health Maintenance Insurance Care Teams Team MemberRelationshipSpecialtyStart DateEnd Date Alejandra Osborne MD [address] [place] [phone] PCP - GeneralFamily Medicine12/18/23 Alejandra Osborne MD [address] [place] [phone] ReferringFamily Hupounbo49/27/23
--- NOTE | 2025-10-05 09:45 | MM_ITS ---
Patient Name: ZAYNAB LUTZ MR#: [id number] : 1955 Exam Date: 10/05/2025 Ordering Doctor: DELIA CRUZ . RADIOLOGY REPORT PROCEDURE: MM TOMOSYNTHESIS SCREENING BI COMPARISON: MM TOMOSYNTHESIS SCREENING BI, 09/30/2024. MM TOMOSYNTHESIS SCREENING BI, 09/29/2023. MG MAMM SCREEN 3D CINTHYA CAD, 08/13/2022. MG MAMM SCREEN CINTHYA W CAD, 08/10/2018. INDICATIONS: Screening Calculator Name NCI Breast Cancer Risk Assessment Tool 5 Year Breast Cancer Risk 1.50% Lifetime Breast Cancer Risk 5.00% Personal Breast Cancer No Personal Ovarian Cancer No Treatments None Family Cancers Uncle-paternal with colon cancer at age 60. LOCATION: [facility] BREAST COMPOSITION: There are scattered areas of fibroglandular density. FINDINGS: DIAGNOSTIC CATEGORY 1--NEGATIVE. RIGHT BREAST: No significant suspicious finding. LEFT BREAST: No significant suspicious finding. RECOMMENDATIONS: ROUTINE MAMMOGRAM AND CLINICAL EVALUATION IN 12 MONTHS. Dictated by: Benton Alarcon MD on 10/05/2025 at 12:47 Approved by: Benton Alarcon MD on 10/05/2025 at 12:49
== END 2025-10-05 09:20 | disposition home or self-care (01) ==
LOC: MAMMO 09:19
PROVIDERS: PCP Family Medicine; Visit Provider Physician Assistant
DX: Z12.31 Encounter for screening mammogram for malignant neoplasm of breast (principal); Z80.0 Family history of malignant neoplasm of digestive organs
CPT/HCPCS: 77063; 77067